=== PATIENT | female | born 1950 | race African-American/Black ===

== ENCOUNTER 2019-12-19 12:18 | Emergency (ER) | payer MEDICARE, SELFPAY ==
[2019-12-19 12:21] VITALS: BP 181/73; PULSE 66; RESP 16; TEMP 36.8; O2SAT 99; BMI 26.4
--- NOTE | 2019-12-19 12:43 | EKG12_ITS ---
Test Reason : DYSRHYTHMIA Blood Pressure : / mmHG Vent. Rate : 067 BPM Atrial Rate : 067 BPM P-R Int : 184 ms QRS Dur : 086 ms QT Int : 474 ms P-R-T Axes : 000 -18 078 degrees QTc Int : 500 ms Normal sinus rhythm Prolonged QT Abnormal ECG Confirmed by TERE LEMON, JAN ([id number]), video editor BIRDIE TORRES ([id number]) on 12/23/2019 10:42:30 AM Referred By: BASSAM Confirmed By:JAN CARRANZA MD
--- NOTE | 2019-12-19 12:45 | ED.VISSUMM ---
- ER Visit Summary Date of Service: 12/19/19 Chief Complaint: Generalized weakness History of Present Illness: The patient is a 69 F history of CAD, diabetes, end-stage renal disease dialysis with a right chest wall dialysis catheter. Patient states that she just felt weak today. She is scheduled for dialysis today. She had a full run of dialysis on Sunday. She is originally from [place] just moved here recently and does not have a local primary care physician as of yet but she has been set up for dialysis. She denies any nausea, vomiting or diarrhea. No chest pain or headache. No abdominal pain. No melena. She still does make urine she denies any dysuria. She denies any fever or chills. Just states she feels weak. Physical Examination: Older female no acute distress. Vital signs are stable and afebrile. HEENT exam unremarkable. No droop. Neck nontender. No lymphadenopathy. Lungs clear to auscultation bilaterally. Heart regular rhythm rate about 60 no murmur. Chest wall nontender. Abdomen soft and nontender. Normal bowel sounds no peritoneal signs. Nondistended. Patient is moving all 4 extremities. Neurovascularly intact. She is a right chest wall dialysis catheter that is tunneled. Neurologically she is awake and alert. She is moving all 4 extremities. There is no edema. Test Results: EKG normal sinus rhythm rate of 67 no acute signs of PA or ischemia. Prolonged QT interval 474. CBC white count of 5. Hemoglobin 11.4 with no old labs available for comparison. Sodium 134. Potassium 3.3. Gap is 6. Creatinine 5.67 with a history of being a dialysis patient. This x-ray showed no acute process. Normal cardiac silhouette. Right-sided Vas-Cath. Emergency Department Course and Treatment: Older female generalized weakness. Benign exam. Screening labs are being obtained. Repeat exam at 2:02 PM patient is doing well. Went over her test results. She will be discharged to home to dialysis. And outpatient follow-up. Treatment Plan: Follow-up with primary care physician. Disposition: Discharge Impression: Acute generalized weakness of uncertain etiology History of end-stage renal disease and dialysis History of CAD. History of diabetes This note was generated with [employer] software. It may contain incorrect words, spelling, and punctuation that were not noted in review of the chart prior to signing ED Disposition - Plan for ED Patient: Referrals: Care Physician,No Primary [Primary Care Provider] -
--- NOTE | 2019-12-19 12:53 | RAD_ITS ---
STUDY: X-RAY CHEST REASON FOR EXAM: Female, 69 years old. Increased weakness TECHNIQUE: Single AP portable view of the chest. COMPARISON: None. FINDINGS: EKG electrodes are seen. A right-sided double-lumen catheter is present with the tip at the junction of the superior vena cava and right atrium. Hyperinflation. The lungs are clear. There is no demonstrated pleural abnormality. Normal size heart. Normal mediastinum and farhan. Normal visualized pulmonary arteries. There is atherosclerotic tortuosity of the aortic arch and descending thoracic aorta. Normal visualized thoracic spine. Normal visualized ribs, clavicles, and shoulders. There is no demonstrated abnormality of the visualized soft tissue structures of the upper abdomen. RAD/Chest 1 View (Portable) IMPRESSION: Hyperinflation. The lungs are clear. Electronically Signed: Lopez Barraza, at 13:07 EDT , Service support ,
[2019-12-19 13:08] LABS: Absolute Neutrophil Count 3.7 X10^3/uL (2.0-7.7); Basophil# 0.04 X10^3/uL; Basophil% 0.7 % (0-1); Eosinophil# 0.15 X10^3/uL; Eosinophils% 2.6 % (0-5); Hematocrit 35.2 % (37-47); Hemoglobin 11.4 g/dL (12.0-15.0); Lymphocyte % 25.5 % (19-41); Mean Corp Hgb Conc 32.4 g/dL (32-36); Mean Corpuscular Hgb 27.8 pg (27.0-32.0); Mean Corpuscular Volume 85.9 fL (81-99); Mean Platelet Vol. 9.8 fl (6.2-12.0); Monocyte# 0.48 X10^3/uL; Monocyte% 8.2 % (0-10); NRBC Flagged by Analyzer 0 % (0-5); Neutrophil % 62.8 % (47-70); Platelet Count 202 K/mm3 (150-450); RBC Distribution Width CV 14.4 % (11.6-14.6); White Blood Count 5.9 K/mm3 (4.4-11.0)
[2019-12-19 13:21] LABS: Anion Gap 6 (5-15); BUN 35 mg/dL (7-18); BUN/Creat Ratio 6.2 RATIO (10-20); Calcium,Total 8.4 mg/dL (8.5-10.1); Chloride 98 mmol/L (98-107); Creatinine, Serum 5.67 mg/dL (0.55-1.02); EST Glomerular Filtration Rate 8 mL/min (>60); Est Glom Filt Rate - Afr Amer 10 mL/min (>60); Estimated Creatinine Clearance 10.06 ml/min; Glucose 95 mg/dL (74-106); Potassium 3.3 mmol/L (3.5-5.1); Sodium Level 134 mmol/L (136-145)
[2019-12-19 13:23] VITALS: BP 161/88; PULSE 56; RESP 14; O2SAT 100
--- NOTE | 2019-12-19 14:04 | ED.DEP ---
ED Disposition - Plan for ED Patient: Disposition: Home or Assisted Living Instructions: ED Weakness [facility] Referrals: Po Magaña MD [STAFF PHYSICIAN] - As soon as possible Additional Instructions: Chest x-ray and EKG today were unremarkable. Follow-up with a local primary care physician. Get your dialysis done today.
[2019-12-19 15:29] VITALS: BP 175/81; PULSE 60; RESP 17; O2SAT 97
== END 2019-12-19 15:30 | disposition home or self-care (01) ==
PROVIDERS: Emergency Provider Emergency Medicine
DX: R53.1 Weakness (principal); E11.22 Type 2 diabetes mellitus with diabetic chronic kidney disease; N18.6 End stage renal disease; Z99.2 Dependence on renal dialysis; I25.10 Atherosclerotic heart disease of native coronary artery without angina pectoris; F17.210 Nicotine dependence, cigarettes, uncomplicated; Z79.899 Other long term (current) drug therapy
CPT/HCPCS: 71045; 80048; 85025; 93005; 99285; A4216

== ENCOUNTER 2020-01-31 00:42 | Emergency (ER) | payer MEDICARE, SELFPAY ==
[2020-01-31 00:44] VITALS: BP 88/59; PULSE 58; RESP 24; TEMP 36.7; O2SAT 96; BMI 24.3
--- NOTE | 2020-01-31 00:56 | EKG12_ITS ---
Test Reason : DYSRHYTHMIA Blood Pressure : / mmHG Vent. Rate : 080 BPM Atrial Rate : 080 BPM P-R Int : 184 ms QRS Dur : 086 ms QT Int : 482 ms P-R-T Axes : 034 -10 061 degrees QTc Int : 555 ms Normal sinus rhythm Nonspecific T wave abnormality Prolonged QT Abnormal ECG Confirmed by TERE LEMON, JAN ([id number]), acquisition editor BIRDIE TORRES ([id number]) on 02/03/2020 8:39:43 AM Referred By: CAREN Confirmed By:JAN CARRANZA MD
--- NOTE | 2020-01-31 00:56 | RAD_ITS ---
STUDY: X-RAY CHEST REASON FOR EXAM: Female, 69 years old. C/O TIGHTNESS IN CHEST AND WEAKNESS TECHNIQUE: Single AP portable view of the chest. COMPARISON: None. FINDINGS: There is a hemodialysis catheter on the right side. The lungs are clear and expanded. There is no demonstrated pleural abnormality. Normal size heart. Normal mediastinum and farhan. Normal visualized pulmonary arteries. Normal visualized aortic arch and descending thoracic aorta. Normal visualized thoracic spine. Normal visualized ribs, clavicles, and shoulders. There is no demonstrated abnormality of the visualized soft tissue structures of the upper abdomen. RAD/Chest 1 View (Portable) IMPRESSION: Normal x-ray examination of the chest. Electronically Signed: Luis Hathaway, at 2:15 EDT Tel , Service support ,
--- NOTE | 2020-01-31 00:57 | CT_ITS ---
STUDY: CT ABDOMEN AND PELVIS WITHOUT CONTRAST REASON FOR EXAM: Female, 69 years old. ABD PAIN/WEAKNESS/FATIGUE/ON DIALYSIS. hX OF UTERINE CANCER, DIABETES, HTN, ASTHMA, CAD, CHOLECYSTECTOMY AND BILAT HIP REPLACEMENTS RADIATION DOSAGE (If Supplied By Facility): CTDIvol = ( 10.31 ) mGy, DLP = ( 477.62 ) mGycm TECHNIQUE: Transaxial images were obtained from the dome of the diaphragm to the symphysis pubis without oral contrast, and without intravenous contrast. Sagittal and coronal images were reconstructed. Individualized dose optimization techniques were used for this CT. COMPARISON: None. FINDINGS: The visualized lung bases are unremarkable. The visualized portions of the heart are within normal limits. There is a subcapsular low-attenuation lesion in the segment #4 of the liver measures 3 cm and most likely represents a cyst. There are surgical clips in the gallbladder fossa consistent with a prior cholecystectomy. Normal spleen. Normal pancreas. Normal bilateral adrenal glands. Normal right kidney. Normal left kidney. Normal visualized stomach. Normal small intestine. Normal colon. The appendix is visualized and appears normal. There is diffuse atherosclerotic calcification of the abdominal aorta, without a demonstrated aneurysm. There is an IVC filter in place. Normal retroperitoneum. Normal urinary bladder. Normal abdominal wall. Normal osseous structures. CT/Abdomen/Pelvis without Cont IMPRESSION: There is a subcapsular low-attenuation lesion in the segment #4 of the liver measures 3 cm and most likely represents a cyst. There is no acute abnormality in the abdomen or the pelvis. Electronically Signed: Luis Hathaway, at 3:26 EDT Tel , Service support ,
[2020-01-31 00:59] VITALS: BP 88/49; PULSE 72; RESP 27; TEMP 36.7; O2SAT 96
--- NOTE | 2020-01-31 00:59 | ED.VIS.GEN ---
History of Present Illness Chief Complaint: General Illness Narrative: Patient is presenting with generalized weakness and some abdominal pain for the past few days, she had dialysis today and her symptoms started even before dialysis as she feels lightheaded, she has some nausea. She denies any fever or chills she denies shortness of breath, no back pain she still makes urine and has no dysuria. The abdominal pain is generalized throughout the entire abdomen it is not localized, she has no diarrhea or constipation. Past Medical History - Allergies and Home Meds Allergies/Adverse Reactions: Allergies No Known Allergies Allergy (Verified 01/31/20 00:50) Primary Care Physician: Care Physician,No Primary [NON-STAFF] - Past Medical History: - - She has an extensive past medical history this was reviewed. I reviewed her medications. She has hypertension hypercholesterolemia diabetes she has end-stage renal failure she is on dialysis Sunday. She has a right chest dialysis catheter she does not have any fistulas. Smoking Status: Current every day smoker Review of Systems All systems negative except as indicated General: Denies: Fever Eyes: Denies: Visual changes - bilaterally ENT: Denies: Sore throat Cardiovascular: Denies: Chest pain, Heart racing Respiratory: Denies: Dyspnea, Cough Gastrointestinal: Reports: Abdominal pain, Nausea. Denies: Vomiting, Diarrhea, Constipation Genitourinary: Denies: Dysuria Musculoskeletal: Denies: Back pain Skin: Denies: Rash Neurological: Reports: - - No focal weakness. Denies: Headache Hematologic: Reports: Easy bruising Allergy: Denies: Swelling of the mouth, Swelling of the tongue Physical Exam Vital Signs/Narrative: Vital Signs Temp Pulse Resp BP Pulse Ox 01/31/20 00:44 98.1 F 58 L 24 H 88/59 L 96 General: - - Patient appears chronically ill. She appears in some distress Head: Normocephalic Eyes: Perrl, EOMI ENT: Dry mucous membranes Neck: Supple Cardiovascular: Regular rate, Regular rhythm Respiratory: No distress, - - Coarse breath sounds bilaterally Abdomen: Soft, - - There is diffuse tenderness throughout there is no guarding or rebound. I can palpate deeply and she does have some pain, however the abdomen is quite benign. Back: Nontender, Normal Inspection Extremities: Nontender, No edema Skin: Normal color, No rash, - - There is a right chest wall dialysis catheter it is intact without any signs of infection Neurological: Alert, Normal Strength, Normal Sensation Diagnostic/Tx/Re-eval - Rhythm Strip Rhythm Strip: Sinus Rhythm Rate: 80 Ectopy: None - EKG Initial EKG Interpretation: - - Normal sinus rhythm with a rate of 80. Normal [place] interval. Slightly prolonged QTC at 555. Nonspecific T wave changes throughout. Otherwise normal EKG interpreted by emergency doctor - Medical Decision Making Patient received a gentle bolus of IV fluids since she was slightly dehydrated clinically, she significantly improved and now feels back to baseline. She has an unremarkable CAT scan and work-up in the ED I weighed the risks and benefits of admission versus discharge I believe at this time she is stable for discharge. She is quite ill chronically and she can decompensate however this is chronic for her and if she worsens she needs to return she understands that she is here with her daughter who seems quite reliable. She is now stable for discharge. ED Disposition - Plan for ED Patient: Disposition: Home or Assisted Living Diagnosis: Dehydration, Weakness Instructions: ED Dehydration Adult, ED Weakness [facility] Referrals: Care Physician,No Primary [NON-STAFF] - 3-5 Days
[2020-01-31 01:10] LABS: Absolute Lymphocyte Count 2.98 X10^3/uL (0.83-4.51); Absolute Neutrophil Count 7.8 X10^3/uL (2.0-7.7); Basophil# 0.04 X10^3/uL; Basophil% 0.3 % (0-1); Eosinophil# 0.13 X10^3/uL; Eosinophils% 1.1 % (0-5); Hematocrit 31.9 % (37-47); Hemoglobin 10.5 g/dL (12.0-15.0); Lymphocyte # 2.98 X10^3/ul (4.0); Mean Corp Hgb Conc 32.9 g/dL (32-36); Mean Corpuscular Hgb 29.3 pg (27.0-32.0); Mean Corpuscular Volume 89.1 fL (81-99); Mean Platelet Vol. 9.3 fl (6.2-12.0); Monocyte# 0.96 X10^3/uL; NRBC Flagged by Analyzer 0 % (0-5); Neutrophil # 7.79 X10^3/uL (2.7-7.7); Neutrophil % 65.3 % (47-70); Platelet Count 261 K/mm3 (150-450); RBC Distribution Width CV 17.2 % (11.6-14.6); RBC Distribution Width SD 53.6 fl (35.1-43.9); Red Blood Count 3.58 M/mm3 (4.2-5.4); White Blood Count 11.9 K/mm3 (4.4-11.0)
[2020-01-31] MEDS: Morphine 2 MG/ML Syringe IV (01:36)
[2020-01-31] MEDS: Ondansetron 4 MG/2 ML Vial IV (01:36)
[2020-01-31 01:49] VITALS: BP 81/48; PULSE 77; RESP 18; TEMP 37; O2SAT 95
[2020-01-31 01:55] LABS: ALB/GLOB Ratio 0.7 RATIO (0.9-2.4); AST(SGOT) 20 U/L (15-37); Alanine Aminotransfer ALT/SGPT 16 U/L (13-56); Alkaline Phosphatase 114 U/L (45-117); Anion Gap 4 (5-15); BUN 15 mg/dL (7-18); BUN/Creat Ratio 4.6 RATIO (10-20); Calcium,Total 8.5 mg/dL (8.5-10.1); Chloride 99 mmol/L (98-107); Creatinine, Serum 3.24 mg/dL (0.55-1.02); EST Glomerular Filtration Rate 15 mL/min (>60); Est Glom Filt Rate - Afr Amer 18 mL/min (>60); Estimated Creatinine Clearance 17.61 ml/min; Globulin 4.2 g/dL (2.2-4.2); Glucose 118 mg/dL (74-106); Lipase 59 U/L (73-393); Potassium 3.1 mmol/L (3.5-5.1); Protein, Total 7.2 g/dL (6.4-8.2); Sodium Level 137 mmol/L (136-145)
[2020-01-31 02:01] LABS: Lactic Acid 1.3 mmol/L (0.4-1.9)
[2020-01-31 02:49] VITALS: BP 121/58; BP 150/67; PULSE 80; PULSE 81; RESP 18; RESP 22; TEMP 36.8; O2SAT 100; O2SAT 94
[2020-01-31 03:57] VITALS: BP 112/43; PULSE 74; RESP 17; TEMP 36.7; O2SAT 94
[2020-01-31 03:58] VITALS: BP 112/43; PULSE 74; RESP 17; O2SAT 94
== END 2020-01-31 03:58 | disposition home or self-care (01) ==
PROVIDERS: Emergency Provider Emergency Medicine; PCP Nurse Practitioner Family
DX: E86.0 Dehydration (principal); R53.1 Weakness; R10.84 Generalized abdominal pain; I12.0 Hypertensive chronic kidney disease with stage 5 chronic kidney disease or end stage renal disease; E11.22 Type 2 diabetes mellitus with diabetic chronic kidney disease; N18.6 End stage renal disease; Z99.2 Dependence on renal dialysis; E78.00 Pure hypercholesterolemia, unspecified; F17.200 Nicotine dependence, unspecified, uncomplicated; Z79.01 Long term (current) use of anticoagulants; Z79.899 Other long term (current) drug therapy
CPT/HCPCS: 71045; 74176; 80053; 83605; 83690; 85025; 93005; 96361; 96374; 96375; 99285; J7050; A4216; J2405

== ENCOUNTER 2020-02-12 19:44 | Inpatient (IN) | payer MEDICARE, MEDICAID, SELFPAY ==
[2020-02-12] VITALS (9 sets, daily range): BP systolic 126–179; BP diastolic 60–92; PULSE 66–74; RESP 14–22; TEMP 36.6–37.1; O2SAT 98–99; BMI 23.6; BMI 24.1; BMI 23.8
[2020-02-12 20:01] LABS: Bedside Glucose 87 mg/dL (70-110)
--- NOTE | 2020-02-12 20:06 | EKG12_ITS ---
Test Reason : CONFUSION Blood Pressure : / mmHG Vent. Rate : 064 BPM Atrial Rate : 064 BPM P-R Int : 184 ms QRS Dur : 084 ms QT Int : 462 ms P-R-T Axes : 057 -09 057 degrees QTc Int : 476 ms Normal sinus rhythm Normal ECG Confirmed by UGO TRIPATHI ([id number]), commissioning editor DEANNA LEMUS ([id number]) on 02/16/2020 2:07:18 PM Referred By: VALERIO Confirmed By:UGO TRIPATHI
--- NOTE | 2020-02-12 20:06 | CT_ITS ---
We are attempting to reach an attending provider to discuss findings. An addendum with communication details will be sent when the communication is complete. STUDY: CT BRAIN WITHOUT CONTRAST REASON FOR EXAM: Female, 70 years old. SPEECH DIFFICULTY-POSSIBLE STROKE.,LT ARM WEAKNESS RADIATION DOSAGE (If Supplied By Facility): CTDIvol = ( 44.99 ) mGy, DLP = ( 835.48 ) mGycm TECHNIQUE: Transaxial CT imaging of the brain was performed without administration of intravenous contrast material. Individualized dose optimization techniques were used for this CT. COMPARISON: No relevant priors. FINDINGS: Normal soft tissue structures. Normal calvarium. Normal size ventricles and extra-axial spaces for the patient''s age. There are areas of decreased attenuation within the white matter tracts of the supratentorial brain, consistent with microvascular disease changes. Normal basal ganglia and thalami. Normal brainstem. Normal cerebellum. There is no intracranial hemorrhage. There are no findings of an acute ischemic infarction. Normal visualized paranasal sinuses. CT/Brain/Head without Contrast IMPRESSION: Chronic involutional changes of the brain. There is no evidence of intracranial hemorrhage or acute infarct. If clinically indicated, CTA brain and/or MRI may be helpful for further evaluation. Electronically Signed: Marcos Mead MD at 20:28 EDT , Service support ,
--- NOTE | 2020-02-12 20:07 | CT_ITS ---
STUDY: CTA HEAD AND NECK WITH CONTRAST REASON FOR EXAM: Female, 70 years old. Speech difficulty. Question stroke. RADIATION DOSAGE (If Supplied By Facility): CTDIvol = ( 19.195 ) mGy, DLP = ( 1502.24 ) mGycm TECHNIQUE: CT angiography was performed with a multi-detector CT scanner. Data acquisition was obtained from the skull base through the vertex following intravenous administration of IV 100 ML ISOVUE 370. MIP images were reconstructed from the axial data set. Post-processing of the angiographic images was performed, with multiplanar reformation and 3D reconstruction. Individualized dose optimization techniques were used for this CT. COMPARISON: No relevant priors. FINDINGS: Normal bilateral petrous carotid arteries. There is calcified plaque formation of the right cavernous carotid artery, with a mild stenosis (less than 50%). There is calcified plaque formation of the left cavernous carotid artery, with a mild stenosis (less than 50%). Normal right A1 segments of the anterior cerebral artery. Normal left A1 segments of the anterior cerebral artery. Normal intact anterior communicating artery (ACOM). Normal bilateral A2 segments of the anterior cerebral arteries. Normal right M1 and M2 segments of the middle cerebral arteries, with a normal M1 bifurcation. Normal left M1 and M2 segments of the middle cerebral arteries, with a normal M1 bifurcation. Normal right posterior communicating artery (PCOM). Normal left posterior communicating artery (PCOM). Normal bilateral vertebral arteries. Normal basilar artery with a normal basilar bifurcation. The visualized bilateral superior cerebellar (SCA) arteries are normal. Hypoplastic P1 segments of the bilateral posterior cerebral arteries. The, P2 and visualized P3 segments are normal in supply via the bilateral posterior communicating arteries. There is no demonstrated aneurysm of the [place] of [place]. There is no demonstrated abnormality of the visualized brain. AORTIC ARCH: Minimal atherosclerotic changes of the visualized aortic arch. There is no dissection or aneurysm. The right common carotid artery arises from the aortic arch. 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 RIGHT CAROTID ARTERIES: Is minimal calcific plaque along the course of the mid right common carotid artery (CCA) without stenosis.. Normal right common carotid bulb. Normal origin of the right internal carotid (ICA) artery without a hemodynamically significant stenosis. Normal visualized cervical portion of the right internal carotid artery. Normal origin of the right external carotid artery (ECA). LEFT CAROTID ARTERIES: There minimal focal areas of plaque along the course of the left common carotid artery (CCA) without stenosis.. There is calcific plaque in the carotid bulb without stenosis. Normal origin of the left internal carotid (ICA) artery without a hemodynamically significant stenosis. Normal visualized cervical portion of the left internal carotid artery. Normal origin of the left external carotid artery (ECA). VERTEBRAL ARTERIES: There is enhancement within the bilateral vertebral arteries with a small right vertebral artery, and a dominant left vertebral artery. CT/CTA Head AND Neck W/ Contrast IMPRESSION: 1. Minimal bilateral carotid plaque without significant stenosis by a massive anterior. 2. Hypoplastic P1 segments of the bilateral posterior cerebral arteries. The P2 and visualized P3 segments are supplied via the patent bilateral posterior communicating arteries. 3. No evidence of acute intracranial abnormality. N.B. : The above information has been verbally conveyed by Giuseppe Malone DO to Jeff Montelongo MD, on 02/12/2020 20:40:03 (ET). Electronically Signed: Giuseppe Malone DO at 20:42 EDT Tel [phone], Service support ,
[2020-02-12 20:21] LABS: Absolute Lymphocyte Count 2.63 X10^3/uL (0.83-4.51); Absolute Neutrophil Count 6.1 X10^3/uL (2.0-7.7); Basophil# 0.05 X10^3/uL; Basophil% 0.5 % (0-1); Eosinophil# 0.13 X10^3/uL; Eosinophils% 1.4 % (0-5); Hematocrit 32.9 % (37-47); Hemoglobin 10.7 g/dL (12.0-15.0); Lymphocyte # 2.63 X10^3/ul (4.0); Lymphocyte % 27.5 % (19-41); Mean Corp Hgb Conc 32.5 g/dL (32-36); Mean Corpuscular Hgb 29.2 pg (27.0-32.0); Mean Corpuscular Volume 89.6 fL (81-99); Mean Platelet Vol. 9.4 fl (6.2-12.0); Monocyte# 0.67 X10^3/uL; NRBC Flagged by Analyzer 0 % (0-5); Neutrophil # 6.06 X10^3/uL (2.7-7.7); Neutrophil % 63.3 % (47-70); Platelet Count 255 K/mm3 (150-450); RBC Distribution Width CV 15.3 % (11.6-14.6); RBC Distribution Width SD 50.3 fl (35.1-43.9); Red Blood Count 3.67 M/mm3 (4.2-5.4); White Blood Count 9.6 K/mm3 (4.4-11.0)
[2020-02-12 20:26] LABS: International Normalized Ratio 1.1; Prothrombin Time (Protime)PT. 13.4 SECONDS (11.7-14.9)
[2020-02-12 20:27] LABS: Partial Thromboplast Time 28.7 Seconds (24.1-36.2)
[2020-02-12 20:37] LABS: Anion Gap 7 (5-15); BUN 28 mg/dL (7-18); BUN/Creat Ratio 4.8 RATIO (10-20); Calcium,Total 9.1 mg/dL (8.5-10.1); Chloride 94 mmol/L (98-107); EST Glomerular Filtration Rate 8 mL/min (>60); Est Glom Filt Rate - Afr Amer 9 mL/min (>60); Glucose 86 mg/dL (74-106); Potassium 3.9 mmol/L (3.5-5.1); Sodium Level 131 mmol/L (136-145)
--- NOTE | 2020-02-12 20:38 | CM.ED ---
Social Work Responding to stroke alert. Patient daughter, Salima present. Patient and Salima live in a private home together. [facility] reports to assist with patient care. Per Calamina patient son, Jose Kaufman is HCPOA for patient. Support provided. Joel JIMENEZ, CARLOS
[2020-02-12] MEDS: Morphine 4 MG/ML Syringe IV (20:44)
--- NOTE | 2020-02-12 20:45 | RAD_ITS ---
STUDY: X-RAY CHEST REASON FOR EXAM: Female, 70 years old. LEFT ARM PAIN INTO NECK. CONFUSION AND DIFFICULTY TALKING. TECHNIQUE: Single AP portable view of the chest. COMPARISON: Prior study of 01/31/2020 FINDINGS: child monitor leads are seen. There is a right-sided dialysis catheter with tip projecting over the atriocaval junction. The lungs are clear and expanded. There is no demonstrated pleural abnormality. Normal size heart. Normal mediastinum and farhan. Normal visualized pulmonary arteries. There are calcified plaques of the aortic arch. Normal visualized thoracic spine. Normal visualized ribs, clavicles, and shoulders. There is no demonstrated abnormality of the visualized soft tissue structures of the upper abdomen. RAD/Chest 1 View IMPRESSION: No acute cardiopulmonary disease process is seen. Chest findings are stable in the interval. Electronically Signed: Marcos Mead MD at 21:10 EDT , Service support ,
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
--- NOTE | 2020-02-12 21:01 | ED.DCSUM_ITS ---
- ER Visit Summary Date of Service: 02/12/20 Chief Complaint: Speech difficulty, left-sided weakness History of Present Illness: The patient is a 70 F who presents with the above symptoms. Started 3 hours ago. Daughter noted that she had weakness of her left arm and leg and trouble getting her words out. No headache. No nausea or vomiting. Patient has no history of stroke. She currently is on Eliquis for history of DVT. She is also on dialysis Sunday and Sunday and had her normal dialysis yesterday. Physical Examination: Vital signs reviewed. HEENT exam unremarkable. Heart is regular rate and rhythm without murmurs. Lungs are clear to auscultation. Abdomen is soft and nontender. Extremities reveal no edema. Skin exam normal. Neurologic exam shows an extra scale of 5. She scored 1 for questions, 2 for left leg and 2 for language. Test Results: CAT scan of the head shows nothing acute. CTA of the head neck shows minimal carotid plaques with hypoplastic P1 segments. EKG was sinus rhythm with rate 64. No ischemic changes. Troponin normal. Creatinine 5.8. Hemoglobin is 10.7. Emergency Department Course and Treatment: Stroke team was activated due to the patient's symptoms. She is not a TPA candidate due to being on Eliquis. [facility] stroke neurologist evaluated the patient via robot. Again he reiterated the patient is not a TPA candidate. He recommended admission for further imaging studies.Her symptoms seemed to wax and wane. She then developed numbness to the left side of the face. She complained of chest pain, but her EKG and troponin were unremarkable. Patient was discussed with Dr. Cai for admission Treatment Plan: [] Disposition: Admit Impression: Ischemic stroke, chest pain This note was generated with [employer] dictation software. It may contain incorrect words, spelling, and punctuation that were not noted in review of the chart prior to signing ED Disposition - Plan for ED Patient: Referrals: Som Jha NP-C [Primary Care Provider] -
--- NOTE | 2020-02-12 21:52 | ECHOD_ITS ---
Reason For Study: Arrhythmia Procedure This was a 2D Doppler, Color Flow transthoracic echocardiogram. Exam performed portable in patient room. Left Ventricle Normal size and thickness. The estimated ejection fraction is 55-60 %. Stage 1 diastolic dysfunction. No regional wall motion abnormalities noted. Right Ventricle Normal size and thickness. Normal systolic function. Atria The left atrium is moderately enlarged. Normal right atrium. Normal atrial septum. Bubble contrast study negative for right to left interatrial shunt. Mitral Valve The mitral valve is structurally normal. No prolapse or stenosis seen. Mild (1+) mitral valve insufficiency. Tricuspid Valve Normal tricuspid valve. Trivial tricuspid valve insufficiency. Right ventricular systolic pressure estimated to be 22 mmHg. Aortic Valve Normal aortic valve. Trisinus/trileaflet aortic valve. Pulmonic Valve Normal pulmonic valve. Great Vessels Normal aortic root. Normal arch. Normal inferior vena cava. Inferior vena cava collapse with sniff. Pericardium/Pleural No pericardial effusion. Medication Performed a rapid injection of agitated mix of 9 cc saline and 1cc air to assess for atrial septal defect. MMode/2D Measurements & Calculations LVIDd: 4.8 cm IVSd: 1.00 cm Ao root diam: 3.1 cm LVIDs: 3.5 cm LVPWd: 1.2 cm RVDd: 3.3 cm FS: 27.1 % LAV(MOD-bp): 64.2 ml LA A4 area: 22.8 cm2 LA dimension(2D): 4.7 cm LAV(MOD-bp) Indexed: 34.2 ml/m2 LAV(MOD-sp2): 46.9 ml LAV(MOD-sp4): 75.4 ml RA A4 area: 12.6 cm2 Doppler Measurements & Calculations MV E max reg: 76.7 cm/sec Lat Peak E' Reg: 6.9 cm/sec Med Peak E' Reg: 5.2 cm/sec MV A max reg: 106.3 cm/sec E/E' lat: 11.2 E/E' med: 14.8 MV E/A: 0.72 Ao V2 max: 169.7 cm/sec LV V1 max: 128.6 cm/sec PA V2 max: 97.1 cm/sec Ao max P.5 mmHg LV V1 max P.6 mmHg TR max reg: 206.9 cm/sec TR max P.1 mmHg Interpretation Summary Stage 1 diastolic dysfunction. The estimated ejection fraction is 55-60 %. The left atrium is moderately enlarged. Bubble contrast study negative for right to left interatrial shunt. Mild (1+) mitral valve insufficiency. Trivial tricuspid valve insufficiency. Right ventricular systolic pressure estimated to be 22 mmHg. Ordering Physician: Reema Cai Performed By: Mehnaz Padilla RDCS
[2020-02-12 22:29] LABS: Hemoglobin A1c 4.8 % (3.8-5.6)
[2020-02-12] MEDS: 0.9% Saline Lock 10 ML Syringe IV (22:44)
[2020-02-12] MEDS: 0.9% Normal Saline 1,000 ML 100 ML IV (22:44)
[2020-02-12 22:55] LABS: Bedside Glucose 87 mg/dL (70-110)
[2020-02-12 23:40] LABS: Magnesium 2.2 mg/dL (1.6-2.6); T4 Free Direct 1.35 ng/dL (0.76-1.46); Thyroid Stim Hormone (TSH) 4.88 uIU/mL (0.358-3.74)
[2020-02-13] VITALS (14 sets, daily range): BP systolic 106–165; BP diastolic 45–87; PULSE 50–64; RESP 16–20; TEMP 36.2–36.9; O2SAT 95–100; BMI 23.8
[2020-02-13] MEDS: Enoxaparin 80 MG/0.8 ML Syringe 73 MG SC (01:27)
--- NOTE | 2020-02-13 05:55 | EKG12_ITS ---
Test Reason : MORNING EKG Blood Pressure : / mmHG Vent. Rate : 055 BPM Atrial Rate : 055 BPM P-R Int : 212 ms QRS Dur : 086 ms QT Int : 478 ms P-R-T Axes : 068 000 073 degrees QTc Int : 457 ms Sinus bradycardia with 1st degree A-V block Otherwise normal ECG When compared with ECG of 12-FEB-2020 19:58, MANUAL COMPARISON REQUIRED, DATA IS UNCONFIRMED Confirmed by UGO TRIPATHI ([id number]), primer expeditor and drier DEANNA LEMUS ([id number]) on 02/16/2020 2:27:20 PM Referred By: Confirmed By:GUO TRIPATHI
[2020-02-13 06:17] LABS: Absolute Lymphocyte Count 2.01 X10^3/uL (0.83-4.51); Absolute Neutrophil Count 4.4 X10^3/uL (2.0-7.7); Basophil# 0.06 X10^3/uL; Basophil% 0.8 % (0-1); Eosinophil# 0.17 X10^3/uL; Eosinophils% 2.4 % (0-5); Hematocrit 32.8 % (37-47); Hemoglobin 10.2 g/dL (12.0-15.0); Lymphocyte # 2.01 X10^3/ul (4.0); Lymphocyte % 27.9 % (19-41); Mean Corp Hgb Conc 31.1 g/dL (32-36); Mean Corpuscular Hgb 28.7 pg (27.0-32.0); Mean Corpuscular Volume 92.1 fL (81-99); Mean Platelet Vol. 9.3 fl (6.2-12.0); Monocyte# 0.57 X10^3/uL; Monocyte% 7.9 % (0-10); NRBC Flagged by Analyzer 0 % (0-5); Neutrophil # 4.39 X10^3/uL (2.7-7.7); Neutrophil % 60.9 % (47-70); Platelet Count 219 K/mm3 (150-450); RBC Distribution Width CV 15.4 % (11.6-14.6); RBC Distribution Width SD 52.4 fl (35.1-43.9); Red Blood Count 3.56 M/mm3 (4.2-5.4); White Blood Count 7.2 K/mm3 (4.4-11.0)
[2020-02-13 06:41] LABS: Bedside Glucose 72 mg/dL (70-110)
[2020-02-13 06:46] LABS: ALB/GLOB Ratio 0.7 RATIO (0.9-2.4); AST(SGOT) 18 U/L (15-37); Alanine Aminotransfer ALT/SGPT 13 U/L (13-56); Albumin, Serum 2.9 g/dL (3.2-5.0); Alkaline Phosphatase 101 U/L (45-117); Anion Gap 7 (5-15); BUN 28 mg/dL (7-18); BUN/Creat Ratio 4.5 RATIO (10-20); Calcium,Total 8.3 mg/dL (8.5-10.1); Chloride 97 mmol/L (98-107); Cholesterol 120 mg/dL (200); Creatinine, Serum 6.19 mg/dL (0.55-1.02); EST Glomerular Filtration Rate 7 mL/min (>60); Est Glom Filt Rate - Afr Amer 9 mL/min (>60); Estimated Creatinine Clearance 9.09 ml/min; Globulin 4.1 g/dL (2.2-4.2); Glucose 76 mg/dL (74-106); High Density Lipoprotein 46 mg/dL; Potassium 3.9 mmol/L (3.5-5.1); Sodium Level 134 mmol/L (136-145); Triglycerides 121 mg/dL; Very Low Density Lipoprotein 24 mg/dL (5-40)
[2020-02-13] MEDS: Dextrose 50%-Water 25 GM/50 ML DISP.SYRIN IV (06:53)
--- NOTE | 2020-02-13 07:21 | PCM.PN.HOSP ---
Patient Problems: Active and Suspected Problems CVA (cerebral vascular accident) (Acute) Chest pain (Acute) Asthma (Acute) Reason for Visit: Left upper extremity numbness and weakness Subjective: Patient is a 70-year-old lady with multiple comorbidities including diabetes mellitus type 2, end-stage renal disease on hemodialysis who presented with left-sided weakness with expressive aphasia and some confusion. A suspicion of possible CVA was entertained admitted to monitored bed for further management Seen this a.m. patient complaining of significant chest pain involving the left upper chest. EKG obtained was nonacute for ischemia Objective: GENERAL: cooperative HEENT: Atraumatic; EYES; Anicteric, Normal Conjunctiva NECK; supple, normal thyroid, RESPIRATORY: Diminished to auscultation CARDIOVASCULAR: Regular S1 S2, GI: soft, normoactive bowel sounds, : No Renal angle tenderness; EXTREMITIES: No edema, no clubbing, MUSCULOSKELETAL: no muscle waisting NEURO: Awake; no lateralizing signs. SKIN: No Rash PSYCH; Flat affect Vitals/I&O's: Vital Signs Temp Pulse Resp BP Pulse Ox 98.0 F 55 L 16 142/70 H 98 02/13/20 06:00 02/13/20 06:00 02/13/20 06:00 02/13/20 06:00 02/13/20 06:00 Oxygen Delivery Method Room Air Weight: 73 kg Body Mass Index (BMI) 23.8 Finger Stick Blood Glucose 87 Intake and Output for Last 24 Hours 02/11/20 02/12/20 02/13/20 23:59 23:59 23:59 Intake Total 110 / 110 Balance 110 / 110 Laboratory Results 02/12/20 19:54: POC Glucose 87 02/12/20 20:10: WBC 9.6, RBC 3.67 L, Hgb 10.7 L, Hct 32.9 L, MCV 89.6, MCH 29.2, MCHC 32.5, RDW Std Deviation 50.3 H, RDW Coeff of Destiny 15.3 H, Plt Count 255, MPV 9.4, Immature Gran % (Auto) 0.300, Neut % (Auto) 63.3, Lymph % (Auto) 27.5, [place] % (Auto) 7.0, Eos % (Auto) 1.4, Baso % (Auto) 0.5, Absolute Neuts (auto) 6.1, Absolute Lymphs (auto) 2.63, Nucleated RBC % 0 02/12/20 20:10: PT 13.4, INR 1.1, APTT 28.7 02/12/20 20:10: Sodium 131 L, Potassium 3.9, Chloride 94 L, Carbon Dioxide 30.0, Anion Gap 7, BUN 28 H, Creatinine 5.80 H, Estim Creat Clear Calc 9.70, Est GFR (MDRD) Af Amer 9 L, Est GFR (MDRD) Non-Af 8 L, BUN/Creatinine Ratio 4.8 L, Glucose 86, Calcium 9.1, Troponin I < 0.015 02/12/20 20:10: Hemoglobin A1c 4.8 02/12/20 22:49: POC Glucose 87 02/12/20 23:06: Magnesium 2.2, Troponin I < 0.015, TSH 4.88 H, Free T4 1.35 02/13/20 06:00: WBC 7.2, RBC 3.56 L, Hgb 10.2 L, Hct 32.8 L, MCV 92.1, MCH 28.7, MCHC 31.1 L, RDW Std Deviation 52.4 H, RDW Coeff of Destiny 15.4 H, Plt Count 219, MPV 9.3, Immature Gran % (Auto) 0.100, Neut % (Auto) 60.9, Lymph % (Auto) 27.9, [place] % (Auto) 7.9, Eos % (Auto) 2.4, Baso % (Auto) 0.8, Absolute Neuts (auto) 4.4, Absolute Lymphs (auto) 2.01, Nucleated RBC % 0 02/13/20 06:00: Sodium 134 L, Potassium 3.9, Chloride 97 L, Carbon Dioxide 30.0, Anion Gap 7, BUN 28 H, Creatinine 6.19 H, Estim Creat Clear Calc 9.09, Est GFR (MDRD) Af Amer 9 L, Est GFR (MDRD) Non-Af 7 L, BUN/Creatinine Ratio 4.5 L, Glucose 76, Calcium 8.3 L, Total Bilirubin 0.30, AST 18, ALT 13, Alkaline Phosphatase 101, Total Protein 7.0, Albumin 2.9 L, Globulin 4.1, Albumin/Globulin Ratio 0.7 L, Triglycerides 121, Cholesterol 120, LDL Cholesterol 50, VLDL Cholesterol 24, HDL Cholesterol 46 02/13/20 06:33: POC Glucose 72 Current Medications Acetaminophen (Tylenol) 650 mg PO Q6H PRN PRN PRN Reason: Pain Score 1-10/Temp > 100.7 F Al Hydroxide/Mg Hydroxide (Mylanta Ii) 30 ml PO Q6H PRN PRN PRN Reason: Gastric Burning Albuterol Sulfate (Ventolin Aerosols) 2.5 mg INHALATION Q2H PRN PRN PRN Reason: Dyspnea, wheezing Apixaban (Eliquis) 2.5 mg PO BID [facility] Last Admin: 02/13/20 01:23 Dose: Not Given Documented by: Aspirin (Aspirin, Baby) 81 mg PO DAILY@0800 [facility] Aspirin (Aspirin) 300 mg RECTAL DAILY PRN PRN Reason: NPO Atorvastatin Calcium (Lipitor) 40 mg PO QHS [facility] Last Admin: 02/13/20 01:23 Dose: Not Given Documented by: Calcium Acetate (Phoslo Gel Cap) 667 mg PO TIDCM [facility] Gabapentin (Neurontin) 300 mg PO TID [facility] Last Admin: 02/13/20 05:08 Dose: Not Given Documented by: Guaifenesin (Robitussin) 20 ml PO Q4H PRN PRN PRN Reason: COUGH Heparin Sodium (Porcine) () 2,500 units IV UD PRN PRN Reason: Dialysis Cath Heparin Flush Hydralazine HCl (Apresoline Iv) 5 mg IV Q30M PRN PRN Reason: to maintain BP goals Sodium Chloride () 1,000 mls @ 100 mls/hr IV .Q10H [facility] Last Admin: 02/12/20 22:44 Dose: 100 mls/hr Documented by: Pantoprazole Sodium 40 mg/ (Sodium Chloride) 110 mls @ 330 mls/hr IV Q12 [facility] Last Infusion: 02/13/20 02:05 Dose: Infused Documented by: Labetalol HCl (Trandate) 20 mg IV X1 PRN PRN Reason: BLOOD PRESSURE Magnesium Hydroxide (Milk Of Magnesia) 30 ml PO DAILY PRN PRN PRN Reason: Constipation Magnesium Oxide (Mag-Ox 400) 400 mg PO DAILY [facility] Melatonin (Melatonin) 3 mg PO QHS PRN PRN PRN Reason: INSOMNIA Mirtazapine (Remeron) 45 mg PO QHS [facility] Last Admin: 02/13/20 01:24 Dose: Not Given Documented by: Morphine Sulfate () 4 mg IV Q3H PRN PRN PRN Reason: Pain Score 6-10/10 Nitroglycerin (Nitrostat) 0.4 mg SUBLINGUAL Q5M PRN PRN Reason: CARDIAC/CHEST PAIN Ondansetron HCl (Zofran) 4 mg IV Q8H PRN PRN PRN Reason: NAUSEA/VOMITING Oxycodone HCl (Oxyir) 5 mg PO Q4H PRN PRN PRN Reason: Pain Score 4-5/10 Prochlorperazine Edisylate (Compazine Iv) 5 mg IV Q4H PRN PRN PRN Reason: Breakthrough Nausea/Vomiting Psyllium Hydrophilic Mucilloid (Metamucil) 1 packet PO DAILY PRN PRN PRN Reason: Constipation Senna/Docusate Sodium (Senokot-S, Amara-Colace) 2 tablet PO BID PRN PRN PRN Reason: Constipation Sodium Chloride () 10 ml IV UD PRN PRN Reason: Dialysis Catheter Flush Last Admin: 02/12/20 22:44 Dose: 10 ml Documented by: Sodium Chloride () 10 - 40 ml IV UD PRN PRN Reason: SALINE FLUSH Throat Lozenges (Cepacol Sore Throat Lozenge) 1 lozenge MUCOUS MEM Q2H PRN PRN PRN Reason: SORE THROAT Trimethoprim/Sulfamethoxazole (Bactrim Ds) 0.5 tablet PO DAILYCM [facility] Stop: 02/15/20 08:01 STROKE Vital Signs/Narrative: Vital Signs Temp Pulse Resp BP Pulse Ox 02/13/20 06:00 98.0 F 55 L 16 142/70 H 98 Medical Necessity - Tobacco Use Smoking Status: Current every day smoker Tobacco Use: Cigarettes Assessment/Plan All Active Problems CVA (cerebral vascular accident) (Acute) Chest pain (Acute) Asthma (Acute) Patient is a 70-year-old lady with multiple comorbidities including diabetes mellitus type 2, end-stage renal disease on hemodialysis who presented with left-sided weakness with expressive aphasia and some confusion. A suspicion of possible CVA was entertained admitted to monitored bed for further management 1. Left upper extremity paresthesias and subjective weakness ?A presumptive diagnosis of CVA entertained. Patient admitted to monitored bed ordered neuro checks every 4 hours. As part of her management MRI was ordered in addition to speech eval. If CVA confirmed on MRI plan will be to consult neurology -Cervical radiculopathy also remains on the differential diagnosis for patient left upper extremity paresthesias; MRI of the cervical spine subsequently ordered 2. Chest pain ?Cardiac enzymes so far unremarkable plan is for patient to undergo nuclear stress test in a.m. if LA is ruled out 3. Hypertension - Blood pressure controlled, home medications continued with dose adjustment as needed 4. End-stage renal disease ?Patient is on hemodialysis on Wednesdays and Fridays. Nephrology consulted for dialysis orders 5. Dyslipidemia -Patient is on statin therapy, continued at home dose 6. Diabetes mellitus type 2 ?With complications including diabetic nephropathy currently not on any anti-diabetic regimen 7. Mild intermittent asthma ?Currently not in exacerbation 8. Depression with anxiety ?Patient is on Remeron discontinued 9. GERD ?Patient is on PPI 10. History of left lower extremity DVT ?Patient is on Eliquis did continue Active Medications Acetaminophen (Tylenol) 650 mg PO Q6H PRN PRN PRN Reason: Pain Score 1-10/Temp > 100.7 F Al Hydroxide/Mg Hydroxide (Mylanta Ii) 30 ml PO Q6H PRN PRN PRN Reason: Gastric Burning Albuterol Sulfate (Ventolin Aerosols) 2.5 mg INHALATION Q2H PRN PRN PRN Reason: Dyspnea, wheezing Apixaban (Eliquis) 2.5 mg PO BID [facility] Last Admin: 02/13/20 10:32 Dose: 2.5 mg Documented by: Aspirin (Aspirin, Baby) 81 mg PO DAILY@0800 [facility] Last Admin: 02/13/20 10:32 Dose: 81 mg Documented by: Aspirin (Aspirin) 300 mg RECTAL DAILY PRN PRN Reason: NPO Atorvastatin Calcium (Lipitor) 40 mg PO QHS [facility] Last Admin: 02/13/20 01:23 Dose: Not Given Documented by: Calcium Acetate (Phoslo Gel Cap) 667 mg PO TIDCM [facility] Last Admin: 02/13/20 10:32 Dose: 667 mg Documented by: Gabapentin (Neurontin) 300 mg PO TID [facility] Last Admin: 02/13/20 05:08 Dose: Not Given Documented by: Guaifenesin (Robitussin) 20 ml PO Q4H PRN PRN PRN Reason: COUGH Heparin Sodium (Porcine) () 2,500 units IV UD PRN PRN Reason: Dialysis Cath Heparin Flush Hydralazine HCl (Apresoline Iv) 5 mg IV Q30M PRN PRN Reason: to maintain BP goals Sodium Chloride () 1,000 mls @ 100 mls/hr IV .Q10H [facility] Last Admin: 02/13/20 09:14 Dose: 100 mls/hr Documented by: Pantoprazole Sodium 40 mg/ (Sodium Chloride) 110 mls @ 330 mls/hr IV Q12 [facility] Last Infusion: 02/13/20 10:23 Dose: Infused Documented by: Labetalol HCl (Trandate) 20 mg IV X1 PRN PRN Reason: BLOOD PRESSURE Magnesium Hydroxide (Milk Of Magnesia) 30 ml PO DAILY PRN PRN PRN Reason: Constipation Magnesium Oxide (Mag-Ox 400) 400 mg PO DAILY [facility] Last Admin: 02/13/20 10:32 Dose: 400 mg Documented by: Melatonin (Melatonin) 3 mg PO QHS PRN PRN PRN Reason: INSOMNIA Mirtazapine (Remeron) 45 mg PO QHS [facility] Last Admin: 02/13/20 01:24 Dose: Not Given Documented by: Morphine Sulfate () 4 mg IV Q3H PRN PRN PRN Reason: Pain Score 6-10/10 Nitroglycerin (Nitrostat) 0.4 mg SUBLINGUAL Q5M PRN PRN Reason: CARDIAC/CHEST PAIN Ondansetron HCl (Zofran) 4 mg IV Q8H PRN PRN PRN Reason: NAUSEA/VOMITING Oxycodone HCl (Oxyir) 5 mg PO Q4H PRN PRN PRN Reason: Pain Score 4-5/10 Prochlorperazine Edisylate (Compazine Iv) 5 mg IV Q4H PRN PRN PRN Reason: Breakthrough Nausea/Vomiting Psyllium Hydrophilic Mucilloid (Metamucil) 1 packet PO DAILY PRN PRN PRN Reason: Constipation Senna/Docusate Sodium (Senokot-S, Amara-Colace) 2 tablet PO BID PRN PRN PRN Reason: Constipation Sodium Chloride () 10 ml IV UD PRN PRN Reason: Dialysis Catheter Flush Last Admin: 02/12/20 22:44 Dose: 10 ml Documented by: Sodium Chloride () 10 - 40 ml IV UD PRN PRN Reason: SALINE FLUSH Throat Lozenges (Cepacol Sore Throat Lozenge) 1 lozenge MUCOUS MEM Q2H PRN PRN PRN Reason: SORE THROAT Trimethoprim/Sulfamethoxazole ([facility]rim Ds) [facility] Stop: 02/15/20 08:01 Last Admin: 02/13/20 10:31 Dose: 0.5 tablet Documented by: Inpatient E&M: [id number] Subs Hosp L3
--- NOTE | 2020-02-13 08:52 | EKG12_ITS ---
Test Reason : Blood Pressure : / mmHG Vent. Rate : 051 BPM Atrial Rate : 051 BPM P-R Int : 212 ms QRS Dur : 084 ms QT Int : 536 ms P-R-T Axes : 069 -12 046 degrees QTc Int : 494 ms Sinus bradycardia with 1st degree A-V block Otherwise normal ECG When compared with ECG of 13-FEB-2020 05:27, MANUAL COMPARISON REQUIRED, DATA IS UNCONFIRMED Confirmed by UGO TRIPATHI ([id number]), rewrite editor DEANNA LEMUS ([id number]) on 02/16/2020 2:27:37 PM Referred By: BRENNAN Confirmed By:UGO TRIPATHI
[2020-02-13] MEDS: 0.9% Normal Saline 1,000 ML 100 ML IV ×2 (09:14→22:24)
--- NOTE | 2020-02-13 09:15 | MRI_ITS ---
STUDY: MRI BRAIN WITHOUT CONTRAST REASON FOR EXAM: Female, 70 years old. ataxia, difficulty speaking,weakness TECHNIQUE: Standardized multiplanar fat and water weighted pulse sequences were obtained. COMPARISON: 02/12/2020 CT of the brain FINDINGS: Mild atrophy and advanced periventricular white matter ischemic changes without mass effect or restricted diffusion.. Chronic ischemic changes within the shereen. Normal bilateral basal ganglia. Small old lacunar infarct in the right thalamus.. There is no extra-axial fluid accumulation. Normal flow voids within the major intracranial circulation suggesting patency by spin echo criteria. Empty sella deformity likely of no significance. Normal, infundibular stalk, optic chiasm and hypothalamus. Normal tectal plate and pineal gland. Normal midbrain, shereen and medulla. Normal cerebellum. Normal basal cisterns. Normal bilateral temporal bones. Normal bilateral internal auditory canals. No demonstrated orbital abnormality, within the constraints of a routine brain study. Normal visualized paranasal sinuses. Normal calvarium and skull base. Normal visualized soft tissue structures. Normal visualized upper cervical spine. MRI/Brain without Contrast IMPRESSION: Atrophy and advanced periventricular white matter ischemic changes. Old right thalamic infarct and chronic ischemic changes within the shereen. No evidence for acute infarct. Electronically Signed: Linwood Black MD at 16:10 EDT , Service support ,
--- NOTE | 2020-02-13 09:31 | MRI_ITS ---
STUDY: MRI CERVICAL SPINE WITHOUT CONTRAST REASON FOR EXAM: Female, 70 years old. Chest pain, weakness,difficulty speaking TECHNIQUE: Standardized fat and water weighted pulse sequences were obtained in the sagittal and axial planes. COMPARISON: None FINDINGS: Normal foramen magnum and brainstem-cervical cord junction. Normal craniovertebral junction. Normal anterior atlantoaxial articulation. Normal odontoid process. Normal cervical lordosis. Normal vertebral bodies and posterior osseous elements. C2-3: Normal endplates. Normal disc height, signal and prominent right posterolateral/foraminal disc/osteophyte protrusion. Normal central canal and severe right neuroforaminal stenosis. C3-4: Normal endplates. Normal disc height, signal and minor disc bulge with broad based right paracentral/posterolateral disc protrusion.. There is narrowing the central canal and mild cord compression to the right of the midline. Normal left nerve root foramen and severe right neuroforaminal stenosis due to bony hypertrophy C4-5: Normal endplates. Normal disc height, signal and tiny right foraminal disc/osteophyte protrusion. Normal central canal. Moderate right neuroforaminal encroachment. C5-6: Narrowed disc space and minor bulging disc osteophyte complex with small right paracentral/posterolateral disc protrusion. Mild narrowing the central canal and cord compression to the right of the midline. Severe bilateral neuroforaminal stenosis secondary to disc and bony hypertrophy. C6-7: Normal endplates. Normal disc height, signal and small left paracentral/posterolateral disc protrusion. Normal central canal and intervertebral neural foramina. C7-T1: Normal endplates. Normal disc height, signal and morphology. Normal central canal and intervertebral neural foramina. Normal cervical cord. Normal visualized soft tissue structures. MRI/Spine Cervical (Routine) IMPRESSION: No evidence for acute fracture or other significant bony pathology.. Spondylosis and multilevel spinal stenosis secondary to disc disease and bony hypertrophy more severe on the right. Findings as above Electronically Signed: Linwood Black MD at 16:19 EDT , Service support ,
[2020-02-13] MEDS: Smz/Tmp Ds Tablet 0.5 TABLET PO (10:31)
[2020-02-13] MEDS: Magnesium Oxide 400 MG Tablet PO (10:32)
[2020-02-13] MEDS: Calcium Acetate 667 MG Capsule PO ×2 (10:32→11:59)
[2020-02-13] MEDS: Aspirin 81 MG TAB.CHEW PO (10:32)
[2020-02-13] MEDS: APIXABAN 2.5 MG TABLET PO ×2 (10:32→21:55)
[2020-02-13 12:21] LABS: Bedside Glucose 89 mg/dL (70-110)
--- NOTE | 2020-02-13 13:47 | CASEMGMT ---
SW spoke with therapy and patient did not do well. SW met with patient, introduced self and role at [facility]. SW gave patient a list of facilities that are in network with her insurance. SW explained that she will likely be here through the weekend as her insurance will need to approve her and they do not work on the weekends. She asked about [facility] Re[facility] and SW told her that they do not take patient's on dialysis. Plan: Likely SNF, but patient and family still deciding. Evy GONZALEZ MSW
--- NOTE | 2020-02-13 13:50 | CASEMGMT ---
REGGIE FAN assessment: Face to Face with patient for initial transition planning/care coordination assessment. RN MITA introduced self and role at [facility], pt voices understanding and consents to assessment at this time. Pt is sitting up in bed in no distress at this time. Pt is A/Ox4 at this time and answers all questions appropriately at this time. Pt's son, Jose Kaufman, is at bedside during assessment. Care providers, pharmacy, and demographics verified/updated at this time. Presentation: Pt c/o left arm pain into neck, family also states confusion/difficulty talking Admitting dx: CVA PCP: Abhijeet Specialists: Pt states no current specialists. Preferred Pharmacy: [facility] Insurance: [facility] Prescription Benefit: [facility] Living Will/HPOA: Pt states has a LW/HPOA and is aware that they are not on file at [facility] at this time. Pt states her son, Jose Kaufman, is HPOA. LNOK: Jose Kaufman, son/HPOA; Modesta Bessie, son's fiance Living Arrangements: Pt states lives with son on main level of 2 story home and states no concerns at home at this time. Pt states son assists with ADL's, if needed. Transportation: Pt states family drives or uses [employer] transportation and states no transportation concerns at this time. DME/HHC: Pt states has the following DME: w/c, walker, stair lift, and shower chair. Pt states no need for any further DME at this time. Pt states has had HHC and been to SNF but it was while she was in [place]. Pt is ESRD on HD MWF. Pt does state concerns with going home at time of discharge, stating 'I don't know about this leg.' Ian LERMA aware, voices understanding. Pt is retired. Pt states smokes a pack of cigarettes daily and does not drink ETOH. Pt states no further concerns/needs at this time. CM to follow PT/OT evals and for any further discharge planning/needs. Advised pt to ask for CM if any further questions/concerns/needs arise, voices understanding. Pt Goal: TBD Plan: TBD, pending PT/OT evals. S[place]en REGGIE FAN
[2020-02-13] MEDS: Gabapentin 300 MG Capsule PO ×2 (14:13→21:56)
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
--- NOTE | 2020-02-13 17:12 | DIALYSIS ---
Report from primary RN, Naresh Beam Access: Right chest CVC. Site benign, dressing changed per protocol, connections secure, hemosafe applied x 2.
[2020-02-13 17:20] LABS: Bedside Glucose 90 mg/dL (70-110)
[2020-02-13] MEDS: Alteplase 2 MG/2 ML Vial IV ×2 (20:40)
--- NOTE | 2020-02-13 21:06 | DIALYSIS ---
Hemodialysis complete. 3.5 hour run, 2k bath, net fluid removed = 2000 ml. Patient tolerated HD tx well. Patient's HD catheter very positional. Catheter closed using Cathflo: 1.8 ml arterial and 1.8 ml venous. Catheter capped and clamped. Report given to primary RN, mOar Albert.
[2020-02-13] MEDS: Atorvastatin Calcium 40 MG Tablet PO (21:56)
[2020-02-13] MEDS: Mirtazapine 30 MG Tablet 45 MG PO (21:56)
[2020-02-13 22:25] LABS: Bedside Glucose 83 mg/dL (70-110)
[2020-02-14 00:49] VITALS: BMI 23.8
[2020-02-14 03:00] VITALS: PULSE 65
[2020-02-14 04:15] VITALS: BP 185/76; PULSE 60; RESP 18; TEMP 36.6; O2SAT 97
--- NOTE | 2020-02-14 05:55 | EKG12_ITS ---
Test Reason : AM EKG Blood Pressure : / mmHG Vent. Rate : 068 BPM Atrial Rate : 068 BPM P-R Int : 176 ms QRS Dur : 082 ms QT Int : 474 ms P-R-T Axes : 000 -05 083 degrees QTc Int : 504 ms Normal sinus rhythm Nonspecific T wave abnormality Prolonged QT Abnormal ECG When compared with ECG of 13-FEB-2020 09:07, MANUAL COMPARISON REQUIRED, DATA IS UNCONFIRMED Confirmed by UGO TRIPATHI ([id number]), health editor DEANNA LEMUS ([id number]) on 02/23/2020 10:01:02 AM Referred By: YUMIKO Confirmed By:UGO TRIPATHI
[2020-02-14] MEDS: Aspirin 81 MG TAB.CHEW PO (06:50)
[2020-02-14] MEDS: Gabapentin 300 MG Capsule PO (06:50)
[2020-02-14 06:57] VITALS: PULSE 63
[2020-02-14 07:00] LABS: Bedside Glucose 73 mg/dL (70-110)
[2020-02-14 07:06] VITALS: O2SAT 96
[2020-02-14] MEDS: 0.9% Normal Saline 1,000 ML 100 ML IV (07:38)
--- NOTE | 2020-02-14 08:16 | STE_ITS ---
Reason For Study: CHEST PAIN Stress Results Protocol: Dobtuamine Stress Echo Maximum Predicted HR: 152 bpm Target HR: 129 bpm % Maximum Predicted HR: 86 % DurationHeart Rate Stage (mm:ss) (bpm) BP Dose BASELINE 55 152/80 STAGE 1 3:00 52 158/6210.00 STAGE 2 3:00 60 164/6220.00 STAGE 3 3:00 115 162/7030.00 STAGE 4 2:49 130 150/6040.00 RECOVERY 90 150/62 Stress Duration: 11:49 mm:ss Maximum Stress HR: 130 bpm Baseline Echocardiogram Findings The estimated ejection fraction is 60 %. Stress Echo Wall motion Data Resting WM Intermediate WM Stress WM Resting Wall Motion Wall Motion Stress No regional wall motion No regional wall motion abnormalities noted. abnormalities noted. EKG Data The baseline ECG displays normal sinus rhythm. The patient was titrated from 10 mcg to a maximum of 40 mcg of dobutamine during the stress. The maximum heart rate attained was 129 beats per minute. This was 85% of maximum predicted heart rate. During dobutamine infusion, there were no ST or T wave changes noted to suggest ischemia. No clinical angina was noted. Interpretation Summary The estimated ejection fraction is 60 %. Normal, adequate, dobutamine echocardiogram. Negative for ischemia by EKG and echocardiographic criteria. No anginal symptoms noted. Appropriate blood pressure response to dobutamine. Test terminated due to the attainment of target heart rate. Final LVEF is 75%. No complications. Ordering Physician: MD Brian Kinney MD Referring Physician: MD Brian Kinney MD Performed By: Adelso Brewer RCS
[2020-02-14 09:28] VITALS: BP 153/77; PULSE 70; RESP 18; TEMP 36.7; O2SAT 100
[2020-02-14] MEDS: Magnesium Oxide 400 MG Tablet PO (09:29)
[2020-02-14] MEDS: Smz/Tmp Ds Tablet 0.5 TABLET PO (09:29)
[2020-02-14] MEDS: Calcium Acetate 667 MG Capsule PO (09:29)
--- NOTE | 2020-02-14 10:00 | CASEMGMT ---
Pt declines SNF at this time and states she will do therapy but would like OP therapy set up at [facility]. Pt declines HHC at this time. Order for OP therapy at [facility] signed and faxed to [facility] at this time. Original to pt and copy for chart. Pt voices no further questions/concerns/needs at this time. Leonides PAREDES CM
--- NOTE | 2020-02-14 10:54 | DCINST_ITS ---
- Discharge Diagnoses Current Active Problems: Current Active and Chronic Problems Chest pain (Acute) HTN (hypertension) (Chronic) HLD (hyperlipidemia) (Chronic) ESRD (end stage renal disease) on dialysis (Chronic) Diabetes mellitus, type II (Chronic) History of deep venous thrombosis (DVT) of distal vein of left lower extremity (Chronic) Anxiety and depression (Chronic) Asthma (Acute) GERD (gastroesophageal reflux disease) (Chronic) You will use the following diet at home:: No restrictions Discharge Activity: Return to Normal Activity Call your doctor if you observe: Shortness of breath, Dizziness, Fainting spells, Chest pain Allergies/Adverse Reactions: Allergies No Known Allergies Allergy (Verified 02/12/20 22:13) Medications to take at Discharge Amlodipine [Norvasc] 10 mg PO DAILY 12/19/19 Apixaban [Eliquis] 2.5 mg PO BID 12/19/19 Atenolol 25 mg PO DAILY 12/19/19 Calcium Acetate 667 mg PO TID 12/19/19 Cyclobenzaprine HCl 5 mg PO TID 12/19/19 Gabapentin 300 mg PO TID 12/19/19 Hydralazine HCl 100 mg PO TID 12/19/19 Magnesium Oxide 400 mg PO DAILY 12/19/19 Mirtazapine [Remeron] 45 mg PO QHS 12/19/19 Pantoprazole Sodium 40 mg PO BID 12/19/19 Sulfamethoxazole/Trimethoprim [Sulfamethoxazole-Tmp Ss Tablet] 1 tab PO DAILY 02/12/20 Primary Care Physician: Som Jha NP-C [Primary Care Provider] - Please follow up with your Primary Care Physician in: 1 Week Test Results: Test results from this visit will be discussed in further detail at your follow- up appointment, if applicable. Please Follow Up With: Nephrology When: As scheduled Proposed Discharge Date: 02/14/20
--- NOTE | 2020-02-14 11:02 | DS.PCM_ITS ---
<Chantal Barrera - Last Filed: 02/14/20 11:17> Discharge Date and Diagnosis Date of Admission: 02/12/20 Date of Discharge: 02/14/20 - Primary Discharge Diagnosis Acute Problems: Active Problems 1. Left-sided weakness, CVA ruled out 2. Noncardiac chest pain 3. End-stage renal disease 4. Hypertension 5. Hyperlipidemia 6. Type 2 diabetes mellitus 7. Mild intermittent asthma 8. Depression with anxiety 9. GERD 10. History of left lower extremity DVT - Secondary Discharge Diagnosis Chronic Problems: Chronic Problems HTN (hypertension) (Chronic) HLD (hyperlipidemia) (Chronic) ESRD (end stage renal disease) on dialysis (Chronic) Diabetes mellitus, type II (Chronic) History of deep venous thrombosis (DVT) of distal vein of left lower extremity (Chronic) Anxiety and depression (Chronic) GERD (gastroesophageal reflux disease) (Chronic) Hospital Course and Treatment Imaging Results: Diagnostic Data Brain CT 02/12/20 20:06 IMPRESSION: Chronic involutional changes of the brain. There is no evidence of intracranial hemorrhage or acute infarct. If clinically indicated, CTA brain and/or MRI may be helpful for further evaluation. Electronically Signed: Marcos Mead MD at 20:28 EDT , Service support , ADDENDUM: 02/12/202041 IMPRESSION: Chronic involutional changes of the brain. There is no evidence of intracranial hemorrhage or acute infarct. If clinically indicated, CTA brain and/or MRI may be helpful for further evaluation. N.B. : The above information has been verbally conveyed by Marcos Mead MD to Jeff Sharif MD, on 02/12/2020 20:36:00 (ET). Electronically Signed: Marcos Mead MD at 20:28 EDT , Service support , Head/Neck CTA 02/12/20 20:07 IMPRESSION: 1. Minimal bilateral carotid plaque without significant stenosis by a massive anterior. 2. Hypoplastic P1 segments of the bilateral posterior cerebral arteries. The P2 and visualized P3 segments are supplied via the patent bilateral posterior communicating arteries. 3. No evidence of acute intracranial abnormality. N.B. : The above information has been verbally conveyed by Giuseppe Malone DO to Jeff Montelongo MD, on 02/12/2020 20:40:03 (ET). Electronically Signed: Giuseppe Malone DO at 20:42 EDT Tel [phone], Service support , ADDENDUM: 02/12/202048 IMPRESSION: 1. Minimal bilateral carotid plaque without significant stenosis by a massive anterior. 2. Hypoplastic P1 segments of the bilateral posterior cerebral arteries. The P2 and visualized P3 segments are supplied via the patent bilateral posterior communicating arteries. 3. No evidence of acute intracranial abnormality. N.B. : The above information has been verbally conveyed by Giuseppe Malone DO to Jeff Montelongo MD, on 02/12/2020 20:40:03 (ET). Electronically Signed: Giuseppe Malone DO at 20:42 EDT Tel [phone], Service support , Chest X-Ray 02/12/20 20:45 IMPRESSION: No acute cardiopulmonary disease process is seen. Chest findings are stable in the interval. Electronically Signed: Marcos Mead MD at 21:10 EDT , Service support , Brain MRI 02/13/20 09:15 IMPRESSION: Atrophy and advanced periventricular white matter ischemic changes. Old right thalamic infarct and chronic ischemic changes within the shereen. No evidence for acute infarct. Electronically Signed: Linwood Black MD at 16:10 EDT , Service support , Cervical Spine MRI 02/13/20 09:31 IMPRESSION: No evidence for acute fracture or other significant bony pathology.. Spondylosis and multilevel spinal stenosis secondary to disc disease and bony hypertrophy more severe on the right. Findings as above Electronically Signed: Linwood Black MD at 16:19 EDT , Service support , Dr. Mirza- Nephrology Telestroke consult Operations: None Procedures: 2-D Echocardiogram, Stress test Summary of Care Provided: The patient is a 70 year old F admitted 02/12/2020 due to left-sided weakness and expressive aphasia. 1. Left-sided weakness, CVA ruled out-patient reports she has had left lower extremity weakness for the past 2 years secondary to surgery related to left groin hematoma. She states she was told prior to surgery that it may cause long-term complications including weakness/sensory deficits however the surgery was necessary. Head and neck CTA shows minimal bilateral carotid plaque without significant stenosis. MRI of brain shows old right thymic infarct and chronic ischemic changes. No evidence of acute infarct. Cervical spine MRI shows no evidence for acute fracture. Multilevel spinal stenosis. Discussed rehab/SNF however patient is not agreeable at this time. Plan for outpatient PT. Continue Eliquis, statin. Follow-up with PCP in 1 week. 2. Noncardiac chest pain-troponin negative. Patient underwent stress echo which was negative for ischemia. Estimated ejection fraction 60%. 3. End-stage renal disease-continue hemodialysis regimen, follow-up with nephrology. Patient states she has upcoming appointment for possible peritoneal dialysis. 4. Hypertension-stable, continue amlodipine, atenolol. 5. Hyperlipidemia-on atorvastatin 20 mg nightly however this is not listed on home medication regimen. Continue. 6. Type 2 diabetes mellitus-diet controlled. Hemoglobin A1c 813 2024.8%. 7. Mild intermittent asthma-no exacerbation. 8. Depression with anxiety-on Remeron. 9. GERD-continue PPI. 10. History of left lower extremity DVT-on anticoagulation with Eliquis. Patient seen and examined prior to discharge. Physical assessment as noted below. Patient is stable for discharge with follow up recommendations as noted above. This patient was seen by JOE Zayas under the supervision of Dr. Kinney. - Physical Exam Vitals/I&O's: Vital Signs Temp Pulse Resp BP Pulse Ox 98.1 F 70 18 153/77 H 100 02/14/20 09:28 02/14/20 09:28 02/14/20 09:28 02/14/20 09:28 08/15/20 09:28 Oxygen Flow Rate (L/min) 2 Oxygen Delivery Method Room Air Weight: 160 lb 14.999 oz Body Mass Index (BMI) 23.8 Finger Stick Blood Glucose 87 Intake and Output for Last 24 Hours 02/12/20 02/13/20 02/14/20 23:59 23:59 23:59 Intake Total 3208.33 / 3208.33 873.33 / 873.33 Output Total 1999 Balance 1208.33 / 1208.33 873.33 / 873.33 General: Alert, Oriented x3, Cooperative HEENT: Atraumatic, PERRLA, EOMI, Normocephalic Neck: Supple, No JVD, Negative Carotid Bruits Lungs: Clear to auscultation, Normal air movement Cardiovascular: Regular rate, No murmurs Abdomen: Bowel Sounds Present, Soft, Non Tender Extremities: No clubbing, No cyanosis, No edema, Capillary Refill Less than 3 Seconds Skin: No rashes, No breakdown Musculoskeletal: No Tenderness to Palpation of Joints or Extremities, - - Chronic left lower extremity weakness Neurological: Cranial nerves II-XII grossly intact Psych/Mental Status: Normal Affect, Appropriate Laboratory Results 02/13/20 10:33: Troponin I < 0.015 02/13/20 11:51: POC Glucose 89 02/13/20 13:10: Troponin I < 0.015 02/13/20 16:50: Troponin I < 0.015 02/13/20 17:12: POC Glucose 90 02/13/20 22:17: POC Glucose 83 02/14/20 06:53: POC Glucose 73 Current Medications Acetaminophen (Tylenol) 650 mg PO Q6H PRN PRN PRN Reason: Pain Score 1-10/Temp > 100.7 F Al Hydroxide/Mg Hydroxide (Mylanta Ii) 30 ml PO Q6H PRN PRN PRN Reason: Gastric Burning Albuterol Sulfate (Ventolin Aerosols) 2.5 mg INHALATION Q2H PRN PRN PRN Reason: Dyspnea, wheezing Apixaban (Eliquis) 2.5 mg PO BID [facility] Last Admin: 02/13/20 21:55 Dose: 2.5 mg Documented by: Aspirin (Aspirin, Baby) 81 mg PO DAILY@0800 [facility] Last Admin: 02/14/20 06:50 Dose: 81 mg Documented by: Aspirin (Aspirin) 300 mg RECTAL DAILY PRN PRN Reason: NPO Atorvastatin Calcium (Lipitor) 40 mg PO QHS [facility] Last Admin: 02/13/20 21:56 Dose: 40 mg Documented by: Calcium Acetate (Phoslo Gel Cap) 667 mg PO TIDCM [facility] Last Admin: 02/14/20 09:29 Dose: 667 mg Documented by: Gabapentin (Neurontin) 300 mg PO TID [facility] Last Admin: 02/14/20 06:50 Dose: 300 mg Documented by: Guaifenesin (Robitussin) 20 ml PO Q4H PRN PRN PRN Reason: COUGH Heparin Sodium (Porcine) () 2,500 units IV UD PRN PRN Reason: Dialysis Cath Heparin Flush Hydralazine HCl (Apresoline Iv) 5 mg IV Q30M PRN PRN Reason: to maintain BP goals Sodium Chloride () 1,000 mls @ 100 mls/hr IV .Q10H [facility] Last Admin: 02/14/20 07:38 Dose: 100 mls/hr Documented by: Pantoprazole Sodium 40 mg/ (Sodium Chloride) 110 mls @ 330 mls/hr IV Q12 [facility] Last Infusion: 02/14/20 09:59 Dose: Infused Documented by: Labetalol HCl (Trandate) 20 mg IV X1 PRN PRN Reason: BLOOD PRESSURE Magnesium Hydroxide (Milk Of Magnesia) 30 ml PO DAILY PRN PRN PRN Reason: Constipation Magnesium Oxide (Mag-Ox 400) 400 mg PO DAILY [facility] Last Admin: 02/14/20 09:29 Dose: 400 mg Documented by: Melatonin (Melatonin) 3 mg PO QHS PRN PRN PRN Reason: INSOMNIA Mirtazapine (Remeron) 45 mg PO QHS [facility] Last Admin: 02/13/20 21:56 Dose: 45 mg Documented by: Morphine Sulfate () 4 mg IV Q3H PRN PRN PRN Reason: Pain Score 6-10/10 Nitroglycerin (Nitrostat) 0.4 mg SUBLINGUAL Q5M PRN PRN Reason: CARDIAC/CHEST PAIN Ondansetron HCl (Zofran) 4 mg IV Q8H PRN PRN PRN Reason: NAUSEA/VOMITING Oxycodone HCl (Oxyir) 5 mg PO Q4H PRN PRN PRN Reason: Pain Score 4-5/10 Prochlorperazine Edisylate (Compazine Iv) 5 mg IV Q4H PRN PRN PRN Reason: Breakthrough Nausea/Vomiting Psyllium Hydrophilic Mucilloid (Metamucil) 1 packet PO DAILY PRN PRN PRN Reason: Constipation Senna/Docusate Sodium (Senokot-S, Amara-Colace) 2 tablet PO BID PRN PRN PRN Reason: Constipation Sodium Chloride () 10 ml IV UD PRN PRN Reason: Dialysis Catheter Flush Last Admin: 02/12/20 22:44 Dose: 10 ml Documented by: Sodium Chloride () 10 - 40 ml IV UD PRN PRN Reason: SALINE FLUSH Throat Lozenges (Cepacol Sore Throat Lozenge) 1 lozenge MUCOUS MEM Q2H PRN PRN PRN Reason: SORE THROAT Trimethoprim/Sulfamethoxazole (Bactrim Ds) 0.5 tablet PO DAILYCM NARESH Stop: 02/15/20 08:01 Last Admin: 02/14/20 09:29 Dose: 0.5 tablet Documented by: Discharge Diet: No Restrictions Discharge Activity: Return to Normal Activity Call your doctor if you observe: Shortness of breath, Dizziness, Fainting spells, Chest pain Home Medications: Medications to take at Discharge Amlodipine [Norvasc] 10 mg PO DAILY 12/19/19 Apixaban [Eliquis] 2.5 mg PO BID 12/19/19 Atenolol 25 mg PO DAILY 12/19/19 Calcium Acetate 667 mg PO TID 12/19/19 Cyclobenzaprine HCl 5 mg PO TID 12/19/19 Gabapentin 300 mg PO TID 12/19/19 Hydralazine HCl 100 mg PO TID 12/19/19 Magnesium Oxide 400 mg PO DAILY 12/19/19 Mirtazapine [Remeron] 45 mg PO QHS 12/19/19 Pantoprazole Sodium 40 mg PO BID 12/19/19 Sulfamethoxazole/Trimethoprim [Sulfamethoxazole-Tmp Ss Tablet] 1 tab PO DAILY 02/12/20 Primary Care Physician: Som Jha NP-C [Primary Care Provider] - Please follow up with your Primary Care Physician in: 1 Week Please Follow Up With: Nephrology When: As scheduled Disposition: Home Minutes spent on discharge:: 35 Patient Condition:: Stable Medical Necessity - Tobacco Use Smoking Status: Current every day smoker Tobacco Use: Cigarettes Meaningful Use Info Meaningful Use Diagnoses (Choose all that apply): None applicable <Brian Kinney - Last Filed: 02/14/20 14:56> Discharge Date and Diagnosis - Secondary Discharge Diagnosis Chronic Problems: Chronic Problems HTN (hypertension) (Chronic) HLD (hyperlipidemia) (Chronic) ESRD (end stage renal disease) on dialysis (Chronic) Diabetes mellitus, type II (Chronic) History of deep venous thrombosis (DVT) of distal vein of left lower extremity (Chronic) Anxiety and depression (Chronic) GERD (gastroesophageal reflux disease) (Chronic) Hospital Course and Treatment Imaging Results: 02/14/20 08:16 Stress Test Echo w/o Contrast [ECHO] Routine Summary of Care Provided: This patient was seen in conjunction with JOE Zayas . I have independently interviewed and examined the patient and reviewed pertinent historical, laboratory, and other data. Please refer to JOE Zayas note for details of this patient's presentation, findings, and recommendations. I have reviewed JOE Zayas note and concur with documented findings. In brief, Patient is a 70-year-old lady with multiple comorbidities including diabetes mellitus type 2, end-stage renal disease on hemodialysis who presented with left-sided weakness with expressive aphasia and some confusion chest pain. Admitted to monitored bed for subsequent management Hospital course as documented above. - Physical Exam Vitals/I&O's: Vital Signs Temp Pulse Resp BP Pulse Ox 98.1 F 70 18 153/77 H 100 02/14/20 09:28 02/14/20 09:28 02/14/20 09:28 02/14/20 09:28 02/14/20 09:28 Oxygen Flow Rate (L/min) 2 Oxygen Delivery Method Room Air Weight: 73 kg Body Mass Index (BMI) 23.8 Finger Stick Blood Glucose 87 Intake and Output for Last 24 Hours 02/12/20 02/13/20 02/14/20 23:59 23:59 23:59 Intake Total 3208.33 / 3208.33 1583.33 / 1583.33 Output Total 1999 Balance 1208.33 / 1208.33 1583.33 / 1583.33 Laboratory Results 02/13/20 16:50: Troponin I < 0.015 08/14/20 17:12: POC Glucose 90 02/13/20 22:17: POC Glucose 83 02/14/20 06:53: POC Glucose 73 Inpatient E&M: 48828 Disch Hosp
--- NOTE | 2020-02-14 11:08 | CASEMGMT ---
PHQ-9 not indicated at this time as pt has not have CVA as per MRI. JENIFER Sherman
[2020-02-14] MEDS: APIXABAN 2.5 MG TABLET PO (11:19)
[2020-02-14 11:31] VITALS: BMI 23.8
--- NOTE | 2020-02-16 15:27 | CASEMGMT ---
RN CM Discharge Follow-Up Phone Call. Lace: 12 Strata: 3 Discharge Date: 02/14/20 Adm Dx: CVA Attempted discharge follow-up phone call to both cell phone numbers listed. No answer @ either number. The first number called, VM message came on but there was no name identified, so no message left by this RN CM. The 2nd number called just kept ringing/unable to leave VM message. Tanmay HOFFMANN RN CM
== END 2020-02-14 13:05 | disposition home or self-care (01) | DRG 947 ==
LOC: ED 20:16 → PCU 21:20
PROVIDERS: Admitting Provider Family Medicine; Emergency Provider Emergency Medicine; PCP Nurse Practitioner Family; Visit Provider Internal Medicine
DX: R53.1 Weakness (principal); N18.6 End stage renal disease; I12.0 Hypertensive chronic kidney disease with stage 5 chronic kidney disease or end stage renal disease; R47.01 Aphasia; G81.94 Hemiplegia, unspecified affecting left nondominant side; N39.0 Urinary tract infection, site not specified; R07.89 Other chest pain; E11.22 Type 2 diabetes mellitus with diabetic chronic kidney disease; E78.5 Hyperlipidemia, unspecified; J45.20 Mild intermittent asthma, uncomplicated; K21.9 Gastro-esophageal reflux disease without esophagitis; Z86.718 Personal history of other venous thrombosis and embolism; F41.9 Anxiety disorder, unspecified; F32.9 Major depressive disorder, single episode, unspecified; Z79.02 Long term (current) use of antithrombotics/antiplatelets; Z99.2 Dependence on renal dialysis; R29.705 NIHSS score 5; Z79.899 Other long term (current) drug therapy; F17.210 Nicotine dependence, cigarettes, uncomplicated; E11.40 Type 2 diabetes mellitus with diabetic neuropathy, unspecified; Z79.2 Long term (current) use of antibiotics; D63.1 Anemia in chronic kidney disease
CPT/HCPCS: 36415; 70450; 70496; 70498; 70551; 71045; 72141; 80048; 80053; 80061; 82962; 83036; 83735; 84439; 84443; 84484; 85025; 85610; 85730; 90937; 92610; 93005; 93017; 93306; 93350; 94762; 97162; 97166; 99251; 99285; 99406; J2997; J7030; J7040; Q9967; A4216; G0257; G0463

== ENCOUNTER 2020-02-25 13:11 | Emergency (ER) | payer MEDICARE, SELFPAY ==
[2020-02-25 13:16] VITALS: BP 163/80; PULSE 80; RESP 20; TEMP 36.8; O2SAT 99; BMI 24.1
[2020-02-25 13:48] VITALS: BP 149/84; O2SAT 100
--- NOTE | 2020-02-25 13:57 | VDLE_ITS ---
Reason For Study: Pain Procedure LEFT Exam performed portable in ED. GSV is normal. Technically limited study, patient unable to CFV is patent, visualized with color only. tolerate compression groin to knee. Normal venous flow noted. A preliminary report was called and/or faxed SFJ is patent, visualized with color only. to Johann. FV is patent, visualized with color only. Normal venous flow noted. PopV is patent, visualized with color only. Normal venous flow noted. T/P Trunk is patent, visualized with color only. PTV is compressible. LT PerV is compressible. Interpretation Summary There is no evidence of left lower extremity deep vein thrombosis. Left great saphenous vein appears patent and compressible segmentally. Please note that this is a technically limited examination due to patient's inability to tolerate compression. Interpretation involving the left saphenofemoral junction and femoral vein and popliteal vein are made upon color flow only. Ordering Physician: Stiven Wills Referring Physician: Som Jha Performed By: Rashmi Barrientos RVT
--- NOTE | 2020-02-25 13:58 | ED.VISSUMM ---
- ER Visit Summary Date of Service: 02/25/20 Chief Complaint: Left knee pain History of Present Illness: The patient is a 70 F who presents with left knee pain that began today. Patient states she noted some pain in her left knee when she woke up. Patient states she tried to ambulate and her pain became worse. Patient describes her pain is sharp. Patient states her pain is worse with any standing. Patient admits to some chronic numbness in her leg but denies any weakness. Patient states her pain feels similar to the pain she had with prior blood clot. Patient is currently on Eliquis for DVT. Physical Examination: Vital signs are stable. Patient is afebrile. Patient is in no acute distress. Oral mucosa is pink and moist. Neck is supple. Trachea is midline. There is no JVD. Musculoskeletal exam reveals tenderness over the left knee. Range of motion was limited in all motions of the left knee secondary to pain. There is no laxity appreciated. However, the patient was guarding on exam. There is no calf tenderness or edema. Pedal pulses are equal bilaterally. There is no obvious deformity noted. Sensation was intact to light touch in the lower extremities bilaterally. Test Results: X-rays of the left knee were obtained. There are degenerative changes noted. There is sclerosis of the distal femur secondary to fibromuscular dysplasia or Paget's disease. Radiologist recommended correlation with MRI as an outpatient. This was interpreted by the radiologist and reviewed by myself. Venous duplex of the left lower extremity was obtained. There is no evidence of DVT. Emergency Department Course and Treatment: Patient was given a dose of morphine here. Patient was feeling better on reevaluation. Patient was given a prescription for a short course of [place]. Patient was instructed to follow-up with her primary care physician in 5 to 7 days. Patient understood and was agreeable with the plan. All questions were answered. Disposition: Discharge home Impression: Left knee pain This note was generated with [employer] dictation software. It may contain incorrect words, spelling, and punctuation that were not noted in review of the chart prior to signing ED Disposition - Plan for ED Patient: Disposition: Home or Assisted Living Diagnosis: Left knee pain Instructions: ED Knee Pain [facility] Prescriptions: Hydrocodone Bitart/Apap 5-325 [[place] 5MG-325MG] 1 tab PO Q6H PRN PRN 3 Days #10 tab PRN Reason: Pain Prescription Printed Referrals: Som Jha [employer]ILROAD SUPERVISOR [employer] ENG[employer]ES-C [Primary Care Provider] - 3-5 Days
[2020-02-25] MEDS: Morphine 4 MG/ML Syringe IV (14:08)
--- NOTE | 2020-02-25 14:30 | RAD_ITS ---
STUDY: X-RAY - LEFT KNEE REASON FOR EXAM: Female, 70 years old. LT KNEE PAIN. SWELLING, DENIES INJURY TECHNIQUE: 4 view(s) of the knee. COMPARISON: None. FINDINGS: There is a 10 cm x 3.6 cm area of the heterogeneous sclerosis of the distal femoral shaft extending into the metaphysis of the distal femur and lateral condyle. This may represent changes secondary to fibromuscular dysplasia or Paget''s disease. Correlation with MRI is recommended. Normal visualized proximal tibia and fibula. Normal proximal tibiofibular articulation. There is mild degenerative arthrosis of the medial femorotibial compartment. Normal lateral femorotibial compartment. Normal patellofemoral articulation. The soft tissue structures are unremarkable. RAD/Knee 4 or More Views IMPRESSION: Heterogeneous sclerotic appearance of the distal femur as described. Correlation with MRI is recommended. Electronically Signed: Lopez Barraza, at 14:45 EDT , Service support ,
[2020-02-25 15:30] VITALS: BP 157/74; PULSE 68; RESP 15; O2SAT 98
== END 2020-02-25 15:31 | disposition home or self-care (01) ==
PROVIDERS: Emergency Provider Emergency Medicine; PCP Nurse Practitioner Family
DX: M25.562 Pain in left knee (principal); I25.10 Atherosclerotic heart disease of native coronary artery without angina pectoris; I12.0 Hypertensive chronic kidney disease with stage 5 chronic kidney disease or end stage renal disease; E11.22 Type 2 diabetes mellitus with diabetic chronic kidney disease; N18.6 End stage renal disease; Z86.718 Personal history of other venous thrombosis and embolism; Z79.01 Long term (current) use of anticoagulants; Z72.0 Tobacco use
CPT/HCPCS: 73564; 93971; 96374; 99285; A4216

== ENCOUNTER 2020-03-27 10:13 | Outpatient (CLI) | payer MEDICARE, MEDICAID, SELFPAY ==
[2020-03-27] VITALS (10 sets, daily range): BP systolic 112–160; BP diastolic 55–77; PULSE 73–94; RESP 18; TEMP 36.7–37.3; O2SAT 95–100; BMI 22.7
[2020-03-27] MEDS: 0.9% NaCl Peripheral Flush Adult/Peds IV (10:45)
== END 2020-03-27 18:20 | disposition home or self-care (01) ==
LOC: MEDOUTP 10:15 → MS3 10:16
PROVIDERS: PCP Nurse Practitioner Family; Referring Provider Internal Medicine Nephrology; Visit Provider Internal Medicine Nephrology
DX: D64.9 Anemia, unspecified (principal)
CPT/HCPCS: 36415; 36430; 86850; 86900; 86901; 86920; 86922; J7040; P9016; A4216

== ENCOUNTER 2020-03-31 10:42 | Emergency (ER) | payer MEDICARE, MEDICAID, SELFPAY ==
[2020-03-27 11:19] VITALS: BMI 22.7
[2020-03-31 10:43] VITALS: BP 188/84; PULSE 70; RESP 20; TEMP 37.1; O2SAT 97; BMI 25.4
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
[2020-03-31 11:46] LABS: Absolute Lymphocyte Count 1.34 X10^3/uL (0.83-4.51); Absolute Neutrophil Count 7.5 X10^3/uL (2.0-7.7); Basophil# 0.04 X10^3/uL; Basophil% 0.4 % (0-1); Eosinophil# 0.28 X10^3/uL; Eosinophils% 2.9 % (0-5); Hematocrit 31.2 % (37-47); Hemoglobin 9.9 g/dL (12.0-15.0); Lymphocyte # 1.34 X10^3/ul (4.0); Lymphocyte % 13.7 % (19-41); Mean Corp Hgb Conc 31.7 g/dL (32-36); Mean Corpuscular Hgb 30.7 pg (27.0-32.0); Mean Corpuscular Volume 96.6 fL (81-99); Mean Platelet Vol. 8.9 fl (6.2-12.0); Monocyte# 0.57 X10^3/uL; Monocyte% 5.8 % (0-10); NRBC Flagged by Analyzer 0 % (0-5); Neutrophil # 7.51 X10^3/uL (2.7-7.7); Neutrophil % 76.9 % (47-70); Platelet Count 201 K/mm3 (150-450); RBC Distribution Width CV 15.4 % (11.6-14.6); RBC Distribution Width SD 53.7 fl (35.1-43.9); Red Blood Count 3.23 M/mm3 (4.2-5.4); White Blood Count 9.8 K/mm3 (4.4-11.0)
[2020-03-31 12:00] LABS: Anion Gap 7 (5-15); BUN 38 mg/dL (7-18); BUN/Creat Ratio 6.8 RATIO (10-20); Calcium,Total 8.5 mg/dL (8.5-10.1); Chloride 106 mmol/L (98-107); Creatinine, Serum 5.61 mg/dL (0.55-1.02); EST Glomerular Filtration Rate 8 mL/min (>60); Est Glom Filt Rate - Afr Amer 10 mL/min (>60); Estimated Creatinine Clearance 10.03 ml/min; Glucose 96 mg/dL (74-106); Potassium 3.8 mmol/L (3.5-5.1); Sodium Level 137 mmol/L (136-145)
== END 2020-03-31 13:12 | disposition home or self-care (01) ==
LOC: ED 12:59
PROVIDERS: Emergency Provider Emergency Medicine; PCP Nurse Practitioner Family
DX: R19.5 Other fecal abnormalities (principal); D64.9 Anemia, unspecified; I12.0 Hypertensive chronic kidney disease with stage 5 chronic kidney disease or end stage renal disease; N18.6 End stage renal disease; F17.200 Nicotine dependence, unspecified, uncomplicated; Z99.2 Dependence on renal dialysis; Z86.73 Personal history of transient ischemic attack (TIA), and cerebral infarction without residual deficits; Z86.718 Personal history of other venous thrombosis and embolism; Z79.01 Long term (current) use of anticoagulants; K21.9 Gastro-esophageal reflux disease without esophagitis; E78.5 Hyperlipidemia, unspecified
CPT/HCPCS: 80048; 82274; 85025; 99284; A4216

== ENCOUNTER 2020-04-27 08:26 | Day surgery (SDC) | payer MEDICARE, MEDICAID, SELFPAY ==
[2020-04-08 14:17] VITALS: BMI 25.4
[2020-04-27] VITALS (7 sets, daily range): BP systolic 100–148; BP diastolic 60–77; PULSE 59–69; RESP 16; TEMP 36.2–36.7; O2SAT 97–100; BMI 23.7
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
[2020-04-27] MEDS: Lactated Ringers 1,000 ML 100 ML IV (09:41)
[2020-04-27 09:45] LABS: Bedside Glucose 88 mg/dL (70-110)
--- NOTE | 2020-04-27 10:00 | IMM_PTH ---
PATIENT: ALEC GUTIERREZ LOC: EN U#:[id number] AGE/SX: 70/F ROOM: RE04/27/[address]: Dr. Martínez Downs MD : 1950 BED: DIS: 04/27/2020 SPEC #: [id number] RECD: 04/27/20 13:30 STATUS: OSIEL RERafa #: [id number] JABIER: 04/27/20 10:[address]: Martínez Downs DEPT: IMMUNOHISTOCHEMISTRY RECD BY: Monica Doss ENTERED: 04/27/20 13:31 SP TYPE: IMMUNO OTHR DR: Som Jha, MOBILE DISC JOCKEY-C Tissues: Stomach, NOS Procedures: H Pylori (initial) PHYSICIAN & INSTITUTION [place] [id number] SPECIMEN INFORMATION: Tissue Source: Antrum biopsy Clinical Info: Darlene, abhi Specimen Number: [id number] CPT code: 51015 METHODOLOGY: Deparaffinized sections of prefer/formalin-fixed tissue or PAP/DQ stained slides are incubated with monoclonal/polyclonal antibodies/oligonucleotide probes. Localization is made via biotin free immunoperoxidase method. Appropriate controls are performed and reacted as expected. Results on target cell population are indicated in the following table: RESULTS: ANTIBODY / CLONE RESULT H Pylori (polyclonal) negative These tests were developed and their performance characteristics determined by [facility]. They may not have been cleared or approved by the U.S. Food and Drug Administration. The FDA has determined that such clearance or approval is not necessary. INTERPRETATION: Antrum biopsy: Negative for Helicobacter pylori organisms. AM:ronnie 04/28/20
--- NOTE | 2020-04-27 10:00 | EGD_PTH ---
PATIENT: ALEC GUTIERREZ LOC: EN U#:[id number] AGE/SX: 70/F ROOM: RE04/27/[address]: Dr. Martínez Downs MD : 1950 BED: DIS: 04/27/2020 SPEC #: [id number] RECD: 04/27/20 13:04 STATUS: OSIEL IZZY #: [id number] JABIER: 04/27/20 10:[address]: Martínez Downs DEPT: SURGICAL PATHOLOGY RECD BY: Skyla Mclaughlin ENTERED: 04/27/20 13:30 SP TYPE: EGD BIOPSY OT DR: JOE Montes De Oca Tissues: Gastric mucous membrane Procedures: Surgery Specimen Level IV HEADER OPERATION: EGD ([facility] [place], [place]) PRE-OP DIAGNOSIS: Melena, anemia TISSUE SUBMITTED: Antrum biopsy for H. pylori and path MICROSCOPIC DIAGNOSIS Gastric antrum, biopsy: Chronic gastritis, mild to moderate. See comment. AM:ronnie 04/28/20 COMMENT The results of immunohistochemistry for Helicobacter pylori will be reported separately ([id number]). MICROSCOPIC DESCRIPTION Slides are reviewed. GROSS DESCRIPTION Received in fixative is one container labeled with the patient's name and designated antrum biopsy. The specimen consists of one irregular fragment of light trejo soft tissue that measures 0.4 x 0.3 x 0.1 cm. The specimen is totally submitted in one cassette. / SJ:ronnie 04/27/20 TC:3 CPT: 36994
--- NOTE | 2020-04-27 10:13 | OP.EGD_ITS ---
Patient Name: Cori Ferrer Procedure Date: 04/27/2020 9:58 AM Date of : 1950 Age: 70 Procedure: Upper GI endoscopy Indications: Iron deficiency anemia Providers: Martínez Downs MD Referring MD: Mel Montes De Oca Medicines: Monitored Anesthesia Care Patient Profile: This is a 70 year old female. Refer to note in patient chart for documentation of history and physical. Complications: No immediate complications. Estimated blood loss: Minimal. Procedure: Pre-Anesthesia Assessment: - Prior to the procedure, a History and Physical was performed, and patient medications and allergies were reviewed. The patient's tolerance of previous anesthesia was also reviewed. The risks and benefits of the procedure and the sedation options and risks were discussed with the patient. All questions were answered, and informed consent was obtained. Prior Anticoagulants: The patient has taken Eliquis (apixaban), last dose was 2 days prior to procedure. After reviewing the risks and benefits, the patient was deemed in satisfactory condition to undergo the procedure. After obtaining informed consent, the endoscope was passed under direct vision. Throughout the procedure, the patient's blood pressure, pulse, and oxygen saturations were monitored continuously. The gastroscope was introduced through the mouth, and advanced to the second part of duodenum. The upper GI endoscopy was accomplished without difficulty. The patient tolerated the procedure well. Scope In: 10:07:09 AM Scope Out: 10:09:17 AM Total Procedure Duration Time 0 hours 2 minutes 8 seconds Findings: Localized moderate inflammation was found in the stomach. Biopsies were taken with a cold forceps for Helicobacter pylori testing. The esophagus was normal. The examined duodenum was normal. Impression: - Gastritis. Biopsied. - Normal esophagus. - Normal examined duodenum. Recommendation: - Await pathology results. - Discharge patient to home. - Resume previous diet. - Continue present medications. - Resume Eliquis (apixaban) at prior dose tomorrow. Procedure Code(s): --- Professional --- 37876, Esophagogastroduodenoscopy, flexible, transoral; with biopsy, single or multiple Diagnosis Code(s): --- Professional --- K29.70, Gastritis, unspecified, without bleeding D50.9, Iron deficiency anemia, unspecified CPT copyright 2017 [employer]. All rights reserved. The codes documented in this report are preliminary and upon outpatient coder review may be revised to meet current compliance requirements. Martínez Downs MD 04/27/2020 10:12:53 AM This report has been signed electronically. Number of Addenda: 0 Note Initiated On: 04/27/2020 9:58 AM
--- NOTE | 2020-04-27 10:13 | OP.CCLET_ITS ---
04/27/2020 Mel Montes De Oca Re : Upper GI endoscopy procedure for Cori Ferrer Dear Abhijeet This procedure was performed on Monday, April 27, 2020. My impressions and recommendations are as follows: Impressions : - Gastritis. Biopsied. - Normal esophagus. - Normal examined duodenum. Recommendations : - Await pathology results. - Discharge patient to home. - Resume previous diet. - Continue present medications. - Resume Eliquis (apixaban) at prior dose tomorrow. My findings are described in the full procedure note, which is enclosed. If I can be of further assistance, please feel free to contact me at Doctor phone number(s): , Work: . Sincerely, Martínez Downs MD 04/27/2020 10:12:53 AM This report has been signed electronically.
== END 2020-04-27 10:58 | disposition home or self-care (01) ==
LOC: EN 08:29 → AC 08:29
PROVIDERS: Anesthesiology; PCP Family Medicine; Visit Provider Surgery
PROC: 0DJ08ZZ Inspection of Upper Intestinal Tract, Via Natural or Artificial Opening Endoscopic (ICD-10-PCS; CPT 43235; principal; 2020-04-27 09:55)
DX: D50.9 Iron deficiency anemia, unspecified (principal); K29.50 Unspecified chronic gastritis without bleeding; K92.1 Melena; K21.9 Gastro-esophageal reflux disease without esophagitis; I12.9 Hypertensive chronic kidney disease with stage 1 through stage 4 chronic kidney disease, or unspecified chronic kidney disease; E11.22 Type 2 diabetes mellitus with diabetic chronic kidney disease; N18.6 End stage renal disease; I25.2 Old myocardial infarction; E78.5 Hyperlipidemia, unspecified; J45.909 Unspecified asthma, uncomplicated; G25.81 Restless legs syndrome; F32.9 Major depressive disorder, single episode, unspecified; F41.9 Anxiety disorder, unspecified; F17.200 Nicotine dependence, unspecified, uncomplicated; Z99.2 Dependence on renal dialysis; Z79.01 Long term (current) use of anticoagulants; Z79.82 Long term (current) use of aspirin; Z79.899 Other long term (current) drug therapy; Z20.828 Contact with and (suspected) exposure to other viral communicable diseases; Z86.73 Personal history of transient ischemic attack (TIA), and cerebral infarction without residual deficits
CPT/HCPCS: 43239; 82962; 87635; 88305; 88342; C9803; J7120; J2405; U0003

== ENCOUNTER 2020-06-09 07:07 | Emergency (ER) | payer MEDICARE, MEDICAID, SELFPAY ==
[2020-04-27 09:34] VITALS: BMI 23.7
[2020-06-09 07:10] VITALS: BP 117/76; PULSE 74; RESP 20; TEMP 36.9; O2SAT 99; BMI 23.1
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
[2020-06-09] MEDS: Dicyclomine 10 MG Capsule 20 MG PO (07:48)
[2020-06-09 08:09] LABS: Absolute Lymphocyte Count 1.28 X10^3/uL (0.83-4.51); Absolute Neutrophil Count 8.4 X10^3/uL (2.0-7.7); Basophil# 0.05 X10^3/uL; Basophil% 0.5 % (0-1); Eosinophil# 0.15 X10^3/uL; Eosinophils% 1.4 % (0-5); Hematocrit 32.9 % (37-47); Hemoglobin 10.4 g/dL (12.0-15.0); Lymphocyte # 1.28 X10^3/ul (4.0); Lymphocyte % 12.3 % (19-41); Mean Corp Hgb Conc 31.6 g/dL (32-36); Mean Corpuscular Volume 91.6 fL (81-99); Mean Platelet Vol. 9.5 fl (6.2-12.0); Monocyte# 0.56 X10^3/uL; Monocyte% 5.4 % (0-10); NRBC Flagged by Analyzer 0 % (0-5); Neutrophil # 8.36 X10^3/uL (2.7-7.7); Neutrophil % 80.1 % (47-70); Platelet Count 267 K/mm3 (150-450); RBC Distribution Width SD 47.5 fl (35.1-43.9); Red Blood Count 3.59 M/mm3 (4.2-5.4); White Blood Count 10.4 K/mm3 (4.4-11.0)
--- NOTE | 2020-06-09 08:20 | ED.RN ---
unable to access iv at this time, Dr Roy aware.
[2020-06-09 08:21] LABS: Anion Gap 8 (5-15); BUN 45 mg/dL (7-18); BUN/Creat Ratio 6.2 RATIO (10-20); Chloride 102 mmol/L (98-107); Creatinine, Serum 7.28 mg/dL (0.55-1.02); EST Glomerular Filtration Rate 6 mL/min (>60); Est Glom Filt Rate - Afr Amer 7 mL/min (>60); Estimated Creatinine Clearance 7.73 ml/min; Glucose 116 mg/dL (74-106); Potassium 3.2 mmol/L (3.5-5.1); Sodium Level 139 mmol/L (136-145)
[2020-06-09 08:25] VITALS: BP 111/70; PULSE 63; RESP 22; O2SAT 98
[2020-06-09] MEDS: Morphine 4 MG/ML Syringe SC (08:26)
[2020-06-09 09:32] VITALS: BP 122/95; PULSE 64; RESP 15; O2SAT 95
[2020-06-09 09:45] LABS: Bedside Glucose 153 mg/dL (70-110)
== END 2020-06-09 10:11 | disposition home or self-care (01) ==
PROVIDERS: Emergency Provider Emergency Medicine; PCP Nurse Practitioner Family
DX: R10.9 Unspecified abdominal pain (principal); R11.2 Nausea with vomiting, unspecified; R19.7 Diarrhea, unspecified; F17.200 Nicotine dependence, unspecified, uncomplicated; Z99.2 Dependence on renal dialysis; Z79.01 Long term (current) use of anticoagulants; Z79.899 Other long term (current) drug therapy
CPT/HCPCS: 74176; 80048; 82962; 85025; 96372; 99284

== ENCOUNTER 2020-07-03 19:31 | Emergency (ER) | payer MEDICARE, MEDICAID, SELFPAY ==
[2020-07-03 19:32] VITALS: BP 113/65; PULSE 68; RESP 16; TEMP 36.3; O2SAT 100; BMI 21.1
--- NOTE | 2020-07-03 19:34 | ED.RN ---
call kevin for registration [id number]
--- NOTE | 2020-07-03 20:59 | EKG12_ITS ---
Test Reason : CHEST PAIN Blood Pressure : / mmHG Vent. Rate : 075 BPM Atrial Rate : 075 BPM P-R Int : 138 ms QRS Dur : 084 ms QT Int : 436 ms P-R-T Axes : 012 -01 068 degrees QTc Int : 486 ms Normal sinus rhythm Normal ECG Confirmed by TERE LEMON, JAN ([id number]), general expeditor BIRDIE TORRES ([id number]) on 07/05/2020 8:49:23 AM Referred By: EMMY Confirmed By:JAN CARRANZA MD
--- NOTE | 2020-07-03 21:10 | RAD_ITS ---
STUDY: X-RAY CHEST REASON FOR EXAM: Female, 70 years old. Right side rib pain, worse with deep breath. Diarrhea, fatigue TECHNIQUE: Single frontal view of the chest. COMPARISON: 02/12/2020 FINDINGS: There is no new focal consolidation. Normal size heart. Normal mediastinum and farhan. Normal visualized pulmonary arteries. Normal visualized aortic arch and descending thoracic aorta. Normal visualized thoracic spine. There are degenerative changes of the right acromioclavicular joint. There is no demonstrated abnormality of the visualized soft tissue structures of the upper abdomen. RAD/Chest 1 View (Portable) IMPRESSION: No acute cardiopulmonary process. Electronically Signed: Arin Allen MD at 21:41 EST Tel , Service support ,
[2020-07-03] MEDS: Morphine 4 MG/ML Syringe IV (21:19)
[2020-07-03] MEDS: Ondansetron 4 MG/2 ML Vial IV (21:19)
[2020-07-03 21:23] VITALS: BP 118/60; PULSE 60; RESP 23; O2SAT 94
[2020-07-03 21:24] LABS: Absolute Neutrophil Count 6.6 X10^3/uL (2.0-7.7); Basophil# 0.03 X10^3/uL; Basophil% 0.3 % (0-1); Eosinophil# 0.23 X10^3/uL; Eosinophils% 2.4 % (0-5); Hematocrit 30.3 % (37-47); Lymphocyte % 21.8 % (19-41); Mean Corpuscular Hgb 30.3 pg (27.0-32.0); Mean Corpuscular Volume 91.8 fL (81-99); Monocyte# 0.64 X10^3/uL; Monocyte% 6.6 % (0-10); NRBC Flagged by Analyzer 0 % (0-5); Neutrophil # 6.59 X10^3/uL (2.7-7.7); Neutrophil % 68.4 % (47-70); Platelet Count 274 K/mm3 (150-450); RBC Distribution Width CV 14.1 % (11.6-14.6); RBC Distribution Width SD 47.8 fl (35.1-43.9); White Blood Count 9.6 K/mm3 (4.4-11.0)
[2020-07-03 22:06] LABS: ALB/GLOB Ratio 0.6 RATIO (0.9-2.4); AST(SGOT) 24 U/L (15-37); Alanine Aminotransfer ALT/SGPT 30 U/L (13-56); Albumin, Serum 2.4 g/dL (3.2-5.0); Alkaline Phosphatase 111 U/L (45-117); Anion Gap 10 (5-15); BUN 40 mg/dL (7-18); BUN/Creat Ratio 4.6 RATIO (10-20); Calcium,Total 8.7 mg/dL (8.5-10.1); Chloride 98 mmol/L (98-107); Creatinine, Serum 8.75 mg/dL (0.55-1.02); EST Glomerular Filtration Rate 5 mL/min (>60); Est Glom Filt Rate - Afr Amer 6 mL/min (>60); Globulin 4.2 g/dL (2.2-4.2); Glucose 96 mg/dL (74-106); Potassium 3.6 mmol/L (3.5-5.1); Protein, Total 6.6 g/dL (6.4-8.2); Sodium Level 137 mmol/L (136-145)
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
--- NOTE | 2020-07-03 23:01 | CT_ITS ---
STUDY: CT ABDOMEN AND PELVIS WITHOUT CONTRAST REASON FOR EXAM: Female, 70 years old. RIGHT RIB PAIN WITH DIARRHEA. COLITIS. PATIENT HAS A DIALYSIS TUBE?? RADIATION DOSAGE (If Supplied By Facility): CTDIvol = ( 7.52 ) mGy, DLP = ( 362.75 ) mGycm TECHNIQUE: Transaxial images were obtained from the dome of the diaphragm to the symphysis pubis without oral contrast, and without intravenous contrast. Sagittal and coronal images were reconstructed. Individualized dose optimization techniques were used for this CT. COMPARISON: 06/09/2020. FINDINGS: The visualized lung bases are unremarkable. The visualized portions of the heart are within normal limits. Hyperdense liver which can be seen in hemochromatosis. Stable spherical mass in the anterior segment of the Liver. There are surgical clips in the gallbladder fossa consistent with a prior cholecystectomy. Normal spleen. Normal pancreas. Normal bilateral adrenal glands. Both kidneys are small. Right kidney measures 8.3 cm greatest dimension. Left kidney measures 7.9 cm greatest dimension. No stones. No hydronephrosis. Evaluation of the GI tract is limited by absence of oral contrast. Cannot exclude stomach wall thickening. No dilated loops of bowel or evidence for obstruction. Cannot exclude segmental thickening of the [place] of the small or large bowel. Cannot exclude enteritis or colitis. Moderate diffuse fecal retention. Appendix within normal limits. Again seen is moderate free fluid in all quadrants. This may be from peritoneal dialysis. There is diffuse atherosclerotic calcification of the abdominal aorta, without a demonstrated aneurysm. There is an IVC filter in place. Normal retroperitoneum. Evaluation of the pelvis is limited by metal artifact from bilateral hip arthroplasties. Grossly normal rectum. Bladder is empty. Uterus is absent. Peritoneal dialysis catheter is coiled in the left lower quadrant. Normal abdominal wall. Normal osseous structures. CT/Abdomen/Pelvis without Cont IMPRESSION: Continued moderate free fluid in all quadrants, probably from peritoneal dialysis. Stable appearance of the liver which is hyperdense and has a 2.7 cm low-attenuation mass anterior segment. Bilateral small kidneys. Evaluation of the GI tract is limited because of the free fluid and absence of oral contrast. Electronically Signed: Bryan Hartley MD at 23:27 EST , Service support ,
[2020-07-03 23:13] VITALS: BP 102/68; PULSE 62; RESP 12; O2SAT 100
[2020-07-03 23:46] VITALS: BP 117/62; PULSE 56; RESP 18; O2SAT 99
== END 2020-07-04 00:05 | disposition home or self-care (01) ==
PROVIDERS: Emergency Provider Emergency Medicine; PCP Nurse Practitioner Family
DX: R07.9 Chest pain, unspecified (principal); I12.0 Hypertensive chronic kidney disease with stage 5 chronic kidney disease or end stage renal disease; E11.22 Type 2 diabetes mellitus with diabetic chronic kidney disease; N18.6 End stage renal disease; N27.1 Small kidney, bilateral; K21.9 Gastro-esophageal reflux disease without esophagitis; E78.5 Hyperlipidemia, unspecified; J45.909 Unspecified asthma, uncomplicated; F17.200 Nicotine dependence, unspecified, uncomplicated; Z99.2 Dependence on renal dialysis; Z86.718 Personal history of other venous thrombosis and embolism; Z90.49 Acquired absence of other specified parts of digestive tract; Z79.01 Long term (current) use of anticoagulants; Z79.899 Other long term (current) drug therapy; Z86.73 Personal history of transient ischemic attack (TIA), and cerebral infarction without residual deficits
CPT/HCPCS: 71045; 74176; 80053; 84484; 85025; 87426; 93005; 96374; 96375; 99284; A4216; J2405

== ENCOUNTER 2020-07-04 16:57 | Emergency (ER) | payer MEDICARE, MEDICAID, SELFPAY ==
[2020-07-03 19:32] VITALS: BMI 21.1
[2020-07-04 17:01] VITALS: BP 128/80; PULSE 59; RESP 25; TEMP 36.1; O2SAT 100; BMI 21.1
[2020-07-04 17:04] VITALS: O2SAT 99
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
--- NOTE | 2020-07-04 17:27 | ED.DCSUM_ITS ---
- ER Visit Summary Date of Service: 07/04/20 Chief Complaint: Right lower rib cage pain and shortness of breath History of Present Illness: The patient is a 70 F G of residual disease and peritoneal dialysis, stroke, diabetes, asthma, prior PE and DVT on reportedly Eliquis. He states the last 3 to 4 days she has had right-sided chest pain hurts more to take a deep breath with mild shortness of breath. No hemoptysis. No fever. She was seen emergency department yesterday and extensive work-up which was basically unremarkable. Physical Examination: Older female no acute distress. Vital signs stable afebrile. Pulse ox 100% on room air no signs of hypoxia. HEENT exam unremark able. Neck nontender no lymphadenopathy. Lungs clear to auscultation bilaterally. Chest wall nontender. No tenderness to the rib cage no ecchymosis or bruising. No subcu air. No shingles. Abdomen soft nontender normal bowel sounds no peritoneal signs. Heart regular rhythm no murmur. She is moving all 4 extremities. Calves nontender without edema or cords. Back nontender. Neurologically she is awake alert. Test Results: Patient extensive work-up yesterday reviewed all those labs. There were basically nondiagnostic for complaint. Even though she is on Eliquis she is having pleuritic right-sided lower rib cage pain I am going obtain a CTA of her chest. Radiologist read the CTA is no acute finding. No PE. No dissection. I reviewed the film myself. Emergency Department Course and Treatment: CTA for right lower pleuritic rib cage chest pain. Repeat exam patient is doing well at 1829 and will be discharged home. Treatment Plan: Tylenol for pain. Follow-up with your doctor. Return if worse. Disposition: Discharge Impression: Right lower chest wall pleuritic chest pain of uncertain etiology This note was generated with [employer] dictation software. It may contain incorrect words, spelling, and punctuation that were not noted in review of the chart prior to signing ED Disposition - Plan for ED Patient: Referrals: Som Jha NP, SENIOR RESEARCH FELLOW-C [Primary Care Provider] -
[2020-07-04 18:00] VITALS: PULSE 60; RESP 22; O2SAT 100
--- NOTE | 2020-07-04 18:30 | ED.DEP ---
ED Disposition - Plan for ED Patient: Disposition: Home or Assisted Living Instructions: ED Chest Pain, Uncertain Cause Referrals: Som Jha NP, AUTOMATIC SHIRRING MACHINE OPERATOR-C [Primary Care Provider] - 3-5 Days if not improving Additional Instructions: Follow-up with your primary care provider if not improving. Tylenol and Motrin for pain.
[2020-07-04 18:50] VITALS: BP 100/80; PULSE 60; RESP 22; O2SAT 98
== END 2020-07-04 18:51 | disposition home or self-care (01) ==
PROVIDERS: Emergency Provider Emergency Medicine; PCP Nurse Practitioner Family
DX: R07.89 Other chest pain (principal); I12.0 Hypertensive chronic kidney disease with stage 5 chronic kidney disease or end stage renal disease; E11.22 Type 2 diabetes mellitus with diabetic chronic kidney disease; N18.6 End stage renal disease; D63.1 Anemia in chronic kidney disease; J45.909 Unspecified asthma, uncomplicated; B19.20 Unspecified viral hepatitis C without hepatic coma; Z86.711 Personal history of pulmonary embolism; Z86.718 Personal history of other venous thrombosis and embolism; Z99.2 Dependence on renal dialysis; Z79.01 Long term (current) use of anticoagulants; Z79.899 Other long term (current) drug therapy; Z72.0 Tobacco use
CPT/HCPCS: 71275; 99285; Q9967; A4216

== ENCOUNTER 2020-07-20 18:51 | Emergency (ER) | payer MEDICARE, MEDICAID, SELFPAY ==
[2020-07-20 18:52] VITALS: BP 180/125; PULSE 70; RESP 18; TEMP 37.2; O2SAT 100; BMI 21.8
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
[2020-07-20] MEDS: 0.9% Normal Saline 1,000 ML 1000 ML IV (20:26)
[2020-07-20] MEDS: Morphine 4 MG/ML Syringe IV (20:26)
[2020-07-20] MEDS: Ondansetron 4 MG/2 ML Vial IV (20:26)
[2020-07-20 20:31] LABS: Absolute Neutrophil Count 7.5 X10^3/uL (2.0-7.7); Basophil# 0.03 X10^3/uL; Basophil% 0.3 % (0-1); Eosinophils% 1.9 % (0-5); Hematocrit 28.4 % (37-47); Hemoglobin 9.5 g/dL (12.0-15.0); Lymphocyte % 18.4 % (19-41); Mean Corp Hgb Conc 33.5 g/dL (32-36); Mean Corpuscular Hgb 30.1 pg (27.0-32.0); Mean Corpuscular Volume 89.9 fL (81-99); Mean Platelet Vol. 9.1 fl (6.2-12.0); Monocyte# 0.68 X10^3/uL; Monocyte% 6.6 % (0-10); NRBC Flagged by Analyzer 0 % (0-5); Neutrophil # 7.47 X10^3/uL (2.7-7.7); Neutrophil % 72.4 % (47-70); Platelet Count 262 K/mm3 (150-450); RBC Distribution Width CV 13.7 % (11.6-14.6); Red Blood Count 3.16 M/mm3 (4.2-5.4); White Blood Count 10.3 K/mm3 (4.4-11.0)
[2020-07-20 21:05] LABS: ALB/GLOB Ratio 0.5 RATIO (0.9-2.4); AST(SGOT) 45 U/L (15-37); Alanine Aminotransfer ALT/SGPT 44 U/L (13-56); Albumin, Serum 2.1 g/dL (3.2-5.0); Alkaline Phosphatase 102 U/L (45-117); Anion Gap 5 (5-15); BUN 43 mg/dL (7-18); BUN/Creat Ratio 4.8 RATIO (10-20); Calcium,Total 8.4 mg/dL (8.5-10.1); Chloride 102 mmol/L (98-107); EST Glomerular Filtration Rate 5 mL/min (>60); Est Glom Filt Rate - Afr Amer 6 mL/min (>60); Estimated Creatinine Clearance 6.28 ml/min; Glucose 100 mg/dL (74-106); Lipase 182 U/L (73-393); Potassium 3.3 mmol/L (3.5-5.1); Protein, Total 6.1 g/dL (6.4-8.2); Sodium Level 136 mmol/L (136-145)
[2020-07-20 21:45] VITALS: BP 143/77; PULSE 56; RESP 16; O2SAT 100
[2020-07-20 23:20] LABS: Creatinine, Serum 8.96 mg/dL (0.55-1.02)
== END 2020-07-20 21:46 | disposition home or self-care (01) ==
PROVIDERS: Emergency Provider Emergency Medicine; PCP Nurse Practitioner Family
DX: R10.11 Right upper quadrant pain (principal); R11.0 Nausea; R16.0 Hepatomegaly, not elsewhere classified; I12.0 Hypertensive chronic kidney disease with stage 5 chronic kidney disease or end stage renal disease; N18.6 End stage renal disease; E11.22 Type 2 diabetes mellitus with diabetic chronic kidney disease; E78.5 Hyperlipidemia, unspecified; F17.200 Nicotine dependence, unspecified, uncomplicated; Z99.2 Dependence on renal dialysis; Z90.49 Acquired absence of other specified parts of digestive tract; Z79.01 Long term (current) use of anticoagulants; Z79.899 Other long term (current) drug therapy
CPT/HCPCS: 74176; 80053; 83690; 85025; 96361; 96374; 96375; 99285; J7030; J2405

== ENCOUNTER 2020-08-28 23:20 | Emergency (ER) | payer MEDICARE, MEDICAID, SELFPAY ==
[2020-08-28 23:21] VITALS: BP 94/81; PULSE 61; RESP 20; TEMP 35.9; O2SAT 99; BMI 24.0
--- NOTE | 2020-08-28 23:26 | CT_ITS ---
STUDY: CT ABDOMEN AND PELVIS WITHOUT CONTRAST REASON FOR EXAM: Female, 70 years old patient with right sided abdominal pain, nausea, and endstage renal disease (ESRD). RADIATION DOSAGE (If Supplied By Facility): CTDIvol = ( 7.93 ) mGy, DLP = ( 376.20 ) mGycm TECHNIQUE: Transaxial images were obtained from the dome of the diaphragm to the symphysis pubis without oral contrast, and without intravenous contrast. Sagittal and coronal images were reconstructed. Individualized dose optimization techniques were used for this CT. COMPARISON: CT abdomen and pelvis dated 07/03/2020. FINDINGS: The visualized lung bases are unremarkable. The visualized portions of the heart are within normal limits. Normal liver. There is persistent hypodense mass within the right lobe of liver measuring 3 cm in greatest dimension. This is unchanged since the previous study. Normal spleen. Normal pancreas. Normal bilateral adrenal glands. There is mild cortical atrophy of the right kidney, consistent with chronic medical renal disease. There is mild cortical atrophy of the left kidney, consistent with chronic medical renal disease. Normal visualized stomach. There is a moderate amount of ascites throughout the abdomen and pelvis. There is no obvious dilated bowel or pneumoperitoneum. The catheter is visible within the pelvis probably secondary to peritoneal dialysis. Stool and/or contrast is visible within the colon with scattered diverticula. The appendix is visualized and appears normal. There may be some enteric contrast within the appendix. There is multifocal atherosclerotic calcification of the abdominal aorta, without a demonstrated aneurysm. There is an IVC filter in place. Several prongs of the filter beyond the IVC. Normal retroperitoneum. The urinary bladder is nondistended. Pelvic anatomy is obscured by beam hardening and streak artifact from bilateral hip prostheses. Normal abdominal wall. The bones appear osteopenic. The patient has had bilateral total hip arthroplasties. CT/Abdomen/Pelvis without Cont IMPRESSION: 1. Ascites. This may be in part secondary to peritoneal dialysis. 2. Unchanged appearance to liver mass. Electronically Signed: Mery Kumar MD at 0:58 EST , Service support ,
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
[2020-08-28] MEDS: Morphine 4 MG/ML Syringe IV (23:40)
[2020-08-28] MEDS: Dicyclomine 20 MG/2 ML Vial IM (23:40)
[2020-08-28] MEDS: Ondansetron 4 MG/2 ML Vial IV (23:40)
[2020-08-28 23:41] VITALS: BP 108/75
[2020-08-28 23:44] LABS: Absolute Lymphocyte Count 3.74 X10^3/uL (0.83-4.51); Absolute Neutrophil Count 6.8 X10^3/uL (2.0-7.7); Basophil# 0.04 X10^3/uL; Basophil% 0.3 % (0-1); Eosinophil# 0.27 X10^3/uL; Eosinophils% 2.3 % (0-5); Lymphocyte # 3.74 X10^3/ul (4.0); Mean Corp Hgb Conc 32.3 g/dL (32-36); Mean Corpuscular Hgb 29.9 pg (27.0-32.0); Mean Corpuscular Volume 92.8 fL (81-99); Mean Platelet Vol. 9.2 fl (6.2-12.0); NRBC Flagged by Analyzer 0 % (0-5); Neutrophil # 6.84 X10^3/uL (2.7-7.7); Neutrophil % 58.5 % (47-70); Platelet Count 306 K/mm3 (150-450); RBC Distribution Width CV 13.6 % (11.6-14.6); RBC Distribution Width SD 46.5 fl (35.1-43.9); Red Blood Count 3.34 M/mm3 (4.2-5.4); White Blood Count 11.7 K/mm3 (4.4-11.0)
[2020-08-29 00:11] LABS: ALB/GLOB Ratio 0.6 RATIO (0.9-2.4); AST(SGOT) 22 U/L (15-37); Alanine Aminotransfer ALT/SGPT 24 U/L (13-56); Albumin, Serum 2.4 g/dL (3.2-5.0); Alkaline Phosphatase 103 U/L (45-117); Anion Gap 11 (5-15); BUN 71 mg/dL (7-18); BUN/Creat Ratio 7.9 RATIO (10-20); Calcium,Total 8.9 mg/dL (8.5-10.1); Chloride 97 mmol/L (98-107); Creatinine, Serum 8.99 mg/dL (0.55-1.02); EST Glomerular Filtration Rate 5 mL/min (>60); Est Glom Filt Rate - Afr Amer 6 mL/min (>60); Estimated Creatinine Clearance 5.61 ml/min; Globulin 4.3 g/dL (2.2-4.2); Glucose 174 mg/dL (74-106); Lipase 267 U/L (73-393); Potassium 2.7 mmol/L (3.5-5.1); Protein, Total 6.7 g/dL (6.4-8.2); Sodium Level 136 mmol/L (136-145)
[2020-08-29] MEDS: Potassium Chloride 10mEq/100mL 10 MEQ/100 ML IV.SOLN. 100 MEQ IV BOLUS (00:59)
--- NOTE | 2020-08-29 01:39 | ED.RN ---
PT not tolerating potassium infusion even slowed down and diluted. Attempting new IV, small gauge in bigger vein for potassium comfort.
[2020-08-29 01:58] VITALS: BP 144/69; PULSE 56; RESP 16; O2SAT 100
[2020-08-29 03:31] LABS: Magnesium 1.8 mg/dL (1.6-2.6)
[2020-08-29 04:16] LABS: Potassium 3.2 mmol/L (3.5-5.1)
[2020-08-29 04:33] VITALS: BP 97/60; PULSE 56; RESP 16; O2SAT 98
== END 2020-08-29 04:35 | disposition home or self-care (01) ==
PROVIDERS: Emergency Provider Emergency Medicine; PCP Nurse Practitioner Family
DX: R10.11 Right upper quadrant pain (principal); R10.31 Right lower quadrant pain; E87.6 Hypokalemia; I12.0 Hypertensive chronic kidney disease with stage 5 chronic kidney disease or end stage renal disease; E11.22 Type 2 diabetes mellitus with diabetic chronic kidney disease; N18.6 End stage renal disease; Z99.2 Dependence on renal dialysis; E78.5 Hyperlipidemia, unspecified; K21.9 Gastro-esophageal reflux disease without esophagitis; F32.9 Major depressive disorder, single episode, unspecified; F41.9 Anxiety disorder, unspecified; F17.200 Nicotine dependence, unspecified, uncomplicated; J45.909 Unspecified asthma, uncomplicated; Z79.01 Long term (current) use of anticoagulants; Z79.899 Other long term (current) drug therapy; Z86.718 Personal history of other venous thrombosis and embolism; Z86.73 Personal history of transient ischemic attack (TIA), and cerebral infarction without residual deficits
CPT/HCPCS: 36415; 74176; 80053; 83690; 83735; 84132; 85025; 96365; 96366; 96372; 96375; 99285; J7030; A4216; J2405

== ENCOUNTER 2020-09-14 11:12 | Observation (INO) | payer MEDICARE, MEDICAID, SELFPAY ==
[2020-09-14 11:16] VITALS: BP 113/69; PULSE 64; RESP 18; TEMP 36.3; O2SAT 100; BMI 21.9
--- NOTE | 2020-09-14 11:26 | CT_ITS ---
STUDY: CT BRAIN WITHOUT CONTRAST REASON FOR EXAM: Female, 70 years old. Head injury RADIATION DOSAGE (If Supplied By Facility): CTDIvol = ( 44.99 ) mGy, DLP = ( 812.98 ) mGycm TECHNIQUE: Transaxial CT imaging of the brain was performed without administration of intravenous contrast material. Individualized dose optimization techniques were used for this CT. COMPARISON: Comparison is made with prior study 02/12/2020. FINDINGS: Normal soft tissue structures. There is hyperostosis frontalis internus. There is mild cerebral atrophy with widening of the extra-axial spaces and ventricular dilatation. There are areas of decreased attenuation within the white matter tracts of the supratentorial brain, consistent with microvascular disease changes. There are small punctate calcifications of the basal ganglia which are seen in the aging brain as a normal variant. Normal brainstem. Normal cerebellum. There is no intracranial hemorrhage. There are no findings of an acute ischemic infarction. Normal visualized paranasal sinuses. CT/Brain/Head without Contrast IMPRESSION: Chronic involutional changes of the brain. Electronically Signed: Lopez Barraza MD at 12:22 EDT , Service support ,
--- NOTE | 2020-09-14 11:26 | EKG12_ITS ---
Test Reason : ABD PAIN Blood Pressure : / mmHG Vent. Rate : 066 BPM Atrial Rate : 234 BPM P-R Int : 000 ms QRS Dur : 090 ms QT Int : 462 ms P-R-T Axes : 000 -08 050 degrees QTc Int : 484 ms Atrial fibrillation Abnormal ECG Confirmed by TERE LEMON, JAN ([id number]), writer editor BIRDIE TORRES ([id number]) on 09/16/2020 12:52:54 PM Referred By: RU Confirmed By:JAN CARRANZA MD
--- NOTE | 2020-09-14 11:28 | RAD_ITS ---
STUDY: X-RAY - LUMBAR SPINE REASON FOR EXAM: Female, 70 years old. Fall TECHNIQUE: 3 view(s) of the lumbar spine were obtained. COMPARISON: None FINDINGS: Normal lumbar lordosis. There is no substantial scoliosis. There is a normal alignment of the vertebrae. There is multilevel endplate spondylosis of the lumbar vertebrae. There is multi-level degenerative disc disease with multi-level disc space narrowing. There is atherosclerotic calcification of the abdominal aorta without a demonstrated aneurysm. A filter is seen within the inferior vena cava. Status post bilateral hip replacement. A catheter is seen overlying the pelvis most likely representing peritoneal dialysis catheter. RAD/Lumbar Spine 2 or 3 Views IMPRESSION: Degenerative changes of the spine, as detailed above. Electronically Signed: Lopez Barraza MD at 12:58 EDT , Service support ,
--- NOTE | 2020-09-14 11:28 | RAD_ITS ---
STUDY: X-RAY - CERVICAL SPINE REASON FOR EXAM: Female, 70 years old. Fall TECHNIQUE: 4 view(s) of the cervical spine were obtained. COMPARISON: None FINDINGS: There are degenerative changes of the anterior atlantoaxial articulation. Normal odontoid process. Normal cervical lordosis. Mild anterior spondylosis at the C3-C4 C4-C5 and C5-C6 levels. Mild degree of disc space narrowing. Normal visualized intervertebral neuroforamina. There are atherosclerotic vascular calcifications of the carotid arteries. RAD/Cerv Spine 2 or 3 Views IMPRESSION: Mild degree of the anterior spondylosis and disc space narrowing. Electronically Signed: Lopez Barraza MD at 12:57 EDT , Service support ,
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
--- NOTE | 2020-09-14 11:29 | ED.VISSUMM ---
- ER Visit Summary Date of Service: 09/14/20 Chief Complaint: [Fall] History of Present Illness: The patient is a 70 F [presents to the emergency department with a fall that occurred early this morning. Patient states that she had gotten up to use the restroom when she just felt weak and fell and landed on her right hip. Patient is unsure if she hit her head. Patient complaining of intermittent head pain as well as right and left hip pain. Patient states that this morning she sat on the toilet and became acutely weak and had a hard time getting up off the toilet. Her son helped her back into bed and called EMS. Patient describes some soreness in her neck. She complains of intermittent head pain. Patient complains of pain in her low back. Patient does have history of end-stage renal disease and is on peritoneal dialysis and she last did her dialysis last evening around 8 PM. Patient has history of prior stroke as well as diabetes, hypertension, high cholesterol, asthma, and history of DVT. Patient is on Eliquis. Patient continues to smoke.] Physical Examination: [HEENT-PERRLA, EOMI. Cranial nerves II through XII grossly intact. TMs clear. Mucous membranes moist. No adenopathy. No external evidence of trauma to her head. Mild diffuse C-spine tenderness on palpation. No bony step-offs noted. Cardiovascular-regular rate and rhythm without murmur or ectopy Lungs-clear to auscultation, chest wall stable without crepitus or subcu emphysema Abdomen-normoactive bowel sounds, soft, nontender, no rebound or rigidity, no peritoneal signs. Back exam-patient has diffuse tenderness to the lumbar spine. There is no tenderness over the thoracic spine. Patient has negative straight leg raising bilaterally. Deep tendon reflexes are plus 2 out of 4 bilaterally at the patella and Achilles. Patient has normal 5 extension bilaterally. I do not appreciate any significant ecchymosis or bruising noted to her back. Extremities-intact ?4, normal range of motion, normal pulses. Patient has diffuse tenderness palpation over the right and left hips. There is no external rotation noted or shortening of the extremities noted. She is neurovascular intact distally. Test Results: [EKG obtained on arrival shows sinus rhythm with a ventricular rate of 66 bpm with occasional PACs noted. Computer read the EKG is A. fib but I believe it sinus. CBC with differential obtained showed a white count 9.0, hemoglobin 10, hematocrit 32, platelets 262. Chemistries show sodium 131, potassium 2.9, chloride 92, CO2 28, BUN 72, creatinine 8.53, glucose 133. LFTs were normal. Troponin was less than 0.015. CT scan of the brain without contrast obtained showed chronic involutional changes. Chest x-ray 1 view interpreted by myself as no acute disease process and radiology in agreement. X-rays of the lumbar spine 3 views obtained interpreted by myself as degenerative changes radiology in agreement. X-rays of bilateral hips and pelvis 2 views obtained interpreted by myself as no acute fractures or dislocations with no evidence of abnormality to bilateral prosthesis and total hip replacements and radiology in agreement.] Emergency Department Course and Treatment: [IV line established on arrival. Patient placed on a playground monitor. We attempted to ambulate the patient in the department however she is having too much discomfort in the right leg and requiring 2 people to assist her.] Treatment Plan: [Admit] Disposition: [Admit] Impression: [Fall Right hip contusion Inability to ambulate Chronic renal failure Hypokalemia] This note was generated with [employer] dictation software. It may contain incorrect words, spelling, and punctuation that were not noted in review of the chart prior to signing ED Disposition - Plan for ED Patient: Referrals: Som Jha NP, [employer] [Primary Care Provider] -
[2020-09-14] MEDS: 0.9% Normal Saline 1,000 ML 150 ML IV ×2 (11:46→15:52)
[2020-09-14 11:53] LABS: Absolute Lymphocyte Count 1.23 X10^3/uL (0.83-4.51); Absolute Neutrophil Count 7.1 X10^3/uL (2.0-7.7); Basophil# 0.04 X10^3/uL; Basophil% 0.4 % (0-1); Eosinophil# 0.15 X10^3/uL; Eosinophils% 1.7 % (0-5); Hematocrit 32.3 % (37-47); Hemoglobin 10.2 g/dL (12.0-15.0); Lymphocyte # 1.23 X10^3/ul (4.0); Lymphocyte % 13.7 % (19-41); Mean Corp Hgb Conc 31.6 g/dL (32-36); Mean Corpuscular Hgb 30.1 pg (27.0-32.0); Mean Corpuscular Volume 95.3 fL (81-99); Mean Platelet Vol. 9.2 fl (6.2-12.0); Monocyte# 0.46 X10^3/uL; Monocyte% 5.1 % (0-10); NRBC Flagged by Analyzer 0 % (0-5); Neutrophil # 7.08 X10^3/uL (2.7-7.7); Neutrophil % 78.7 % (47-70); Platelet Count 262 K/mm3 (150-450); RBC Distribution Width CV 13.6 % (11.6-14.6); RBC Distribution Width SD 47.4 fl (35.1-43.9); Red Blood Count 3.39 M/mm3 (4.2-5.4)
[2020-09-14 12:16] LABS: ALB/GLOB Ratio 0.5 RATIO (0.9-2.4); AST(SGOT) 32 U/L (15-37); Alanine Aminotransfer ALT/SGPT 31 U/L (13-56); Albumin, Serum 2.5 g/dL (3.2-5.0); Alkaline Phosphatase 110 U/L (45-117); Anion Gap 11 (5-15); BUN 72 mg/dL (7-18); BUN/Creat Ratio 8.4 RATIO (10-20); Chloride 92 mmol/L (98-107); Creatinine, Serum 8.53 mg/dL (0.55-1.02); EST Glomerular Filtration Rate 5 mL/min (>60); Est Glom Filt Rate - Afr Amer 6 mL/min (>60); Globulin 4.6 g/dL (2.2-4.2); Glucose 133 mg/dL (74-106); Potassium 2.9 mmol/L (3.5-5.1); Protein, Total 7.1 g/dL (6.4-8.2); Sodium Level 131 mmol/L (136-145)
[2020-09-14] MEDS: Potassium Chloride Oral Tablet 20 MEQ 40 MEQ PO ×2 (12:41→16:02)
[2020-09-14 13:23] VITALS: BP 131/79; PULSE 65; RESP 17; TEMP 36.3; O2SAT 100
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
[2020-09-14] MEDS: Acetaminophen 325 MG Tablet 650 MG PO ×2 (13:36→19:49)
[2020-09-14 14:08] VITALS: BMI 21.9
[2020-09-14 14:15] VITALS: BP 127/70; PULSE 69; RESP 16; TEMP 36.1; O2SAT 100
[2020-09-14 14:22] LABS: Magnesium 1.8 mg/dL (1.6-2.6)
[2020-09-14 14:44] LABS: Hemoglobin A1c 4.5 % (3.8-5.6)
[2020-09-14 14:46] LABS: Bedside Glucose 89 mg/dL (70-110)
[2020-09-14] MEDS: 0.9% Saline Lock 10 ML Syringe IV (15:52)
[2020-09-14] MEDS: Dicyclomine 10 MG Capsule 20 MG PO ×2 (16:00→22:16)
--- NOTE | 2020-09-14 19:07 | DIALYSIS ---
CAPD initiated. 6 exchanges with 1.5 dextrose.2000ml fill. See orders.
[2020-09-14 19:32] VITALS: PULSE 73
[2020-09-14] MEDS: 0.9% Normal Saline 1,000 ML 75 ML IV (19:59)
[2020-09-14 20:15] VITALS: BP 138/72; PULSE 69; RESP 18; TEMP 36.7; O2SAT 100
[2020-09-14 22:15] LABS: Bedside Glucose 108 mg/dL (70-110)
[2020-09-14] MEDS: APIXABAN 2.5 MG TABLET PO (22:16)
[2020-09-14] MEDS: Mirtazapine 15 MG Tablet 45 MG PO (22:16)
[2020-09-14] MEDS: Rizatriptan Benzoate 10 MG Tablet PO (22:35)
[2020-09-14 23:59] VITALS: PULSE 71
[2020-09-15] VITALS (12 sets, daily range): BP systolic 109–151; BP diastolic 62–76; PULSE 60–75; RESP 14–18; TEMP 36.5–36.8; O2SAT 99–100
[2020-09-15 05:16] LABS: Absolute Neutrophil Count 4.3 X10^3/uL (2.0-7.7); Basophil# 0.03 X10^3/uL; Basophil% 0.4 % (0-1); Eosinophil# 0.17 X10^3/uL; Eosinophils% 2.5 % (0-5); Hematocrit 26.5 % (37-47); Hemoglobin 8.4 g/dL (12.0-15.0); Lymphocyte % 25.4 % (19-41); Mean Corp Hgb Conc 31.7 g/dL (32-36); Mean Corpuscular Hgb 30.1 pg (27.0-32.0); Mean Platelet Vol. 9.6 fl (6.2-12.0); Monocyte# 0.45 X10^3/uL; Monocyte% 6.7 % (0-10); NRBC Flagged by Analyzer 0 % (0-5); Neutrophil % 64.6 % (47-70); Platelet Count 235 K/mm3 (150-450); RBC Distribution Width CV 13.4 % (11.6-14.6); RBC Distribution Width SD 47.1 fl (35.1-43.9); Red Blood Count 2.79 M/mm3 (4.2-5.4); White Blood Count 6.7 K/mm3 (4.4-11.0)
[2020-09-15 05:36] LABS: ALB/GLOB Ratio 0.6 RATIO (0.9-2.4); AST(SGOT) 22 U/L (15-37); Alanine Aminotransfer ALT/SGPT 23 U/L (13-56); Alkaline Phosphatase 90 U/L (45-117); Anion Gap 8 (5-15); BUN 66 mg/dL (7-18); BUN/Creat Ratio 8.1 RATIO (10-20); Chloride 98 mmol/L (98-107); Cholesterol 130 mg/dL (200); Creatinine, Serum 8.16 mg/dL (0.55-1.02); EST Glomerular Filtration Rate 5 mL/min (>60); Est Glom Filt Rate - Afr Amer 6 mL/min (>60); Globulin 3.5 g/dL (2.2-4.2); Glucose 93 mg/dL (74-106); High Density Lipoprotein 49 mg/dL; Potassium 2.9 mmol/L (3.5-5.1); Protein, Total 5.5 g/dL (6.4-8.2); Sodium Level 132 mmol/L (136-145); Triglycerides 91 mg/dL; Very Low Density Lipoprotein 18 mg/dL (5-40)
--- NOTE | 2020-09-15 06:35 | NURSING ---
called down breakfast order for pt
[2020-09-15 06:45] LABS: Bedside Glucose 88 mg/dL (70-110)
[2020-09-15] MEDS: Dicyclomine 10 MG Capsule 20 MG PO ×3 (06:48→20:47)
[2020-09-15 07:41] LABS: Phosphorus 3.7 mg/dL (2.5-4.9)
--- NOTE | 2020-09-15 08:16 | DIALYSIS ---
PD treatment complete with 258ml fluid removed from pt. PD catheter dressing is clean and dry. Effluent is clear with no fibrin noted. Pt awake and alert, tolerated treatment without difficulty. Report given to Joshua PAREDES.
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
[2020-09-15] MEDS: Pantoprazole Sodium 40 MG Tablet PO (09:18)
[2020-09-15] MEDS: Cinacalcet HCl 30 MG Tablet PO (09:19)
[2020-09-15] MEDS: DULoxetine Hcl 30 MG Capsule PO (09:19)
[2020-09-15] MEDS: APIXABAN 2.5 MG TABLET PO ×2 (09:19→20:47)
[2020-09-15] MEDS: Acetaminophen 325 MG Tablet 650 MG PO (09:23)
[2020-09-15] MEDS: Potassium Chloride Oral Tablet 20 MEQ 60 MEQ PO (09:23)
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
[2020-09-15] MEDS: oxyCODONE 5 MG Tablet PO ×2 (09:37→19:04)
--- NOTE | 2020-09-15 10:20 | CASEMGMT ---
SW is anticipating patient will need placement at discharge. Patient is on Peritoneal Dialysis (PD). SW placed calls to all the facilities that are in network with patient's insurance to see if they take patients on PD. Out of the 9 in network facilities so far only 1 indicates they would consider taking a patient on PD, [facility]. SW is waiting on return calls from 2 other facilities, [facility] and [facility]. Await return calls from those 2 facilities and then SW will talk with patient. Evy GONZALEZ MSW
[2020-09-15] MEDS: Atenolol 25 MG Tablet PO (10:56)
--- NOTE | 2020-09-15 11:01 | CASEMGMT ---
MARIA GUADALUPE went to patient's room. Introduced self and role at [facility]. MARIA GUADALUPE asked patient if she was planning on going somewhere for rehab at discharge. She said she did not know. MARIA GUADALUPE asked if it was okay for SW to call her son and she said that would be fine. Her cell phone rang so SW handed her her phone and left the room. Evy GONZALEZ MSW
[2020-09-15 11:06] LABS: Bedside Glucose 109 mg/dL (70-110)
--- NOTE | 2020-09-15 12:01 | CASEMGMT ---
Patient's son arrived at [facility]. SW went to the room. Introduced self and role at [facility]. SW asked if he knew about the discharge plan. He said he was not sure yet. SW went over some options including SNF and home health. SW did tell him if they decide to go with correction facility short term their options are limited as most of the nursing homes do not take patients on Peritoneal Dialysis. MARIA GUADALUPE explained SW called all of the local facilities that are in network with her insurance and only 1 does PD for sure and 1 would consider it. MARIA GUADALUPE told him [facility] in [place] does take PD and [facility] would consider it. MARIA GUADALUPE is waiting on a return call from another facility. MARIA GUADALUPE told him we will continue to follow and assist with discharge planning. Evy GONZALEZ MSW
[2020-09-15] MEDS: hydrALAZINE 50 MG Tablet 100 MG PO ×2 (13:55→20:47)
[2020-09-15 14:36] LABS: Potassium 3.7 mmol/L (3.5-5.1)
--- NOTE | 2020-09-15 14:50 | CASEMGMT ---
Per Gladis at [facility], PD is set up through them. Leonides PAREDES CM
--- NOTE | 2020-09-15 15:03 | NURSING ---
RNMITA RED Note: This contract technical writer went to patient bedside, explained and reviewed RED form with patient in regards to current treatment this hospital stay. Informed outpatient billing is determined by her insurance company and continual review is conducted to determine any changes in condition that may warrant inpatient stay. Patient states understanding and denies any questions with RED form. RED form signed by patient and original copy placed in patient hard chart, patient provided a copy. Patient is a Code 44, treating physician malorie. RACHID Arroyo
--- NOTE | 2020-09-15 18:55 | DIALYSIS ---
CCPD tx initiated using aseptic technique. Using 2 bags of 1.5% dextrose solution. Dressing changed. No problems noted. Not enough effluent drainage to evaluate upon initiation. Report was given to REGGIE Lewis.
[2020-09-15] MEDS: Mirtazapine 15 MG Tablet 45 MG PO (20:48)
[2020-09-15] MEDS: Senna/Docusate Sodium 1 Tablet 2 TABLET PO (20:50)
[2020-09-16] VITALS (12 sets, daily range): BP systolic 91–138; BP diastolic 57–87; PULSE 60–70; RESP 16; TEMP 36.3–37; O2SAT 94–100
[2020-09-16] MEDS: Dicyclomine 10 MG Capsule 20 MG PO ×3 (05:24→21:47)
--- NOTE | 2020-09-16 07:44 | DIALYSIS ---
CCPD complete. Net UF [id number]. SEE DIALYSIS FLOW SHEET. Dressing dry and intact. Tolerated well.
[2020-09-16 08:32] LABS: Absolute Neutrophil Count 3.8 X10^3/uL (2.0-7.7); Basophil# 0.04 X10^3/uL; Basophil% 0.6 % (0-1); Eosinophil# 0.18 X10^3/uL; Eosinophils% 2.9 % (0-5); Hematocrit 27.3 % (37-47); Hemoglobin 8.8 g/dL (12.0-15.0); Lymphocyte % 25.7 % (19-41); Mean Corp Hgb Conc 32.2 g/dL (32-36); Mean Corpuscular Hgb 30.6 pg (27.0-32.0); Mean Corpuscular Volume 94.8 fL (81-99); Mean Platelet Vol. 9.3 fl (6.2-12.0); Monocyte% 9.6 % (0-10); NRBC Flagged by Analyzer 0 % (0-5); Neutrophil # 3.78 X10^3/uL (2.7-7.7); Neutrophil % 60.7 % (47-70); Platelet Count 240 K/mm3 (150-450); RBC Distribution Width CV 13.2 % (11.6-14.6); RBC Distribution Width SD 46.1 fl (35.1-43.9); Red Blood Count 2.88 M/mm3 (4.2-5.4); White Blood Count 6.2 K/mm3 (4.4-11.0)
[2020-09-16 09:02] LABS: Anion Gap 8 (5-15); BUN 63 mg/dL (7-18); BUN/Creat Ratio 8.3 RATIO (10-20); Calcium,Total 7.9 mg/dL (8.5-10.1); Chloride 97 mmol/L (98-107); Creatinine, Serum 7.55 mg/dL (0.55-1.02); EST Glomerular Filtration Rate 6 mL/min (>60); Est Glom Filt Rate - Afr Amer 7 mL/min (>60); Estimated Creatinine Clearance 7.45 ml/min; Glucose 76 mg/dL (74-106); Potassium 3.5 mmol/L (3.5-5.1); Sodium Level 131 mmol/L (136-145)
[2020-09-16] MEDS: Atenolol 25 MG Tablet PO (09:10)
[2020-09-16] MEDS: APIXABAN 2.5 MG TABLET PO ×2 (09:10→21:47)
[2020-09-16] MEDS: DULoxetine Hcl 30 MG Capsule PO (09:10)
[2020-09-16] MEDS: Cinacalcet HCl 30 MG Tablet PO (09:10)
[2020-09-16] MEDS: Pantoprazole Sodium 40 MG Tablet PO (09:10)
--- NOTE | 2020-09-16 09:18 | CASEMGMT ---
SW spoke with patient regarding her discharge plan. She said she would go to a SNF as long as it is in Tank. Unfortunately that leaves her with 1 option, [facility]. SW told her SW will work on referral. SW did talk with [facility] yesterday and they would consider someone on Peritoneal Dialysis. SW called [facility] with referral and also faxed referral. Plan: [facility] pending their acceptance and insurance approval. Evy GONZALEZ MSW
[2020-09-16] MEDS: oxyCODONE 5 MG Tablet PO ×3 (09:25→21:45)
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
[2020-09-16] MEDS: Potassium Chloride Oral Tablet 20 MEQ 40 MEQ PO (10:24)
--- NOTE | 2020-09-16 10:46 | CASEMGMT ---
SW received a call from Dang at [facility]. She said they got word that patient is looking to go to [facility] with her Peritoneal Dialysis. She said she will work on setting up a training. Evy JIMENEZ
[2020-09-16] MEDS: hydrALAZINE 50 MG Tablet 100 MG PO ×2 (14:14→21:46)
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
--- NOTE | 2020-09-16 16:00 | CASEMGMT ---
MARIA GUADALUPE received a call from Pat with [facility]. She was able to arrange training for [facility] staff for tomorrow at 2p. She asked that SW update her when patient goes to [facility]. Her work cell number is [phone]. She said they have spoken to Dr Sears and he is okay if her schedule has to change while she is at [facility]. Patient's son is taking patient's equipment to [facility]. MARIA GUADALUPE then received a call from Hawa with [facility] and she said that the training is tomorrow at 2p and they should be able to admit patient tomorrow evening. MARIA GUADALUPE was not able to update patient due to not having enough time. SW will update patient in am. Plan: [facility] Sunday late afternoon/ evening after Peritoneal Dialysis training with [facility] is completed at 2p Sunday. Evy GONZALEZ MSW
--- NOTE | 2020-09-16 19:28 | DIALYSIS ---
[facility] STARTED PER ORDER.Dressing changed, Site clear no drainage
[2020-09-16] MEDS: Senna/Docusate Sodium 1 Tablet 2 TABLET PO (21:46)
[2020-09-16] MEDS: Mirtazapine 15 MG Tablet 45 MG PO (21:46)
[2020-09-17] VITALS (10 sets, daily range): BP systolic 91–144; BP diastolic 49–71; PULSE 61–69; RESP 16–18; TEMP 35.7–36.9; O2SAT 98–99
[2020-09-17 05:14] LABS: Albumin, Serum 1.9 g/dL (3.2-5.0); BUN 64 mg/dL (7-18); BUN/Creat Ratio 8.9 RATIO (10-20); Calcium,Total 7.6 mg/dL (8.5-10.1); Chloride 97 mmol/L (98-107); Creatinine, Serum 7.19 mg/dL (0.55-1.02); EST Glomerular Filtration Rate 6 mL/min (>60); Est Glom Filt Rate - Afr Amer 7 mL/min (>60); Estimated Creatinine Clearance 7.83 ml/min; Glucose 89 mg/dL (74-106); Magnesium 1.3 mg/dL (1.6-2.6); Phosphorus 4.1 mg/dL (2.5-4.9); Potassium 4.2 mmol/L (3.5-5.1); Sodium Level 132 mmol/L (136-145)
[2020-09-17] MEDS: Dicyclomine 10 MG Capsule 20 MG PO ×3 (05:20→20:35)
[2020-09-17] MEDS: hydrALAZINE 50 MG Tablet 100 MG PO ×2 (05:20→20:35)
[2020-09-17] MEDS: oxyCODONE 5 MG Tablet PO (06:48)
--- NOTE | 2020-09-17 08:01 | DIALYSIS ---
[facility] completed using all 1.5 % bags. Fluid removed was 535 ml. Dressing change done, site benign.
[2020-09-17] MEDS: Cinacalcet HCl 30 MG Tablet PO (08:27)
[2020-09-17] MEDS: APIXABAN 2.5 MG TABLET PO ×2 (08:27→20:35)
[2020-09-17] MEDS: Atenolol 25 MG Tablet PO (08:27)
[2020-09-17] MEDS: DULoxetine Hcl 30 MG Capsule PO (08:27)
[2020-09-17] MEDS: Pantoprazole Sodium 40 MG Tablet PO (08:27)
--- NOTE | 2020-09-17 09:35 | CASEMGMT ---
MARIA GUADALUPE spoke with Hawa from [facility] and she said the training is set for 2p and it takes 4 hours. Patient can come after that. She started her pre-cert this am. Plan: d/c to [facility] pending pre-cert and [facility] Peritoneal Dialysis training. Evy GONZALEZ MSW
[2020-09-17] MEDS: Magnesium Sulfate 4gm/100mL 4 GM/100 ML IV.SOLN. IV (09:48)
[2020-09-17] MEDS: Senna/Docusate Sodium 1 Tablet 2 TABLET PO ×2 (09:54→20:40)
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
--- NOTE | 2020-09-17 12:23 | CASEMGMT ---
Addendum entered by Evy Paredes 09/17/20 14:29: SW updated patient's son regarding plan as well as patient. Both were in agreement with plan. Evy JIMENEZ Original Note: SW received a call from Hawa at [facility]. There has been a change in plans. Due to unplanned lack of staffing today at [facility] Peritoneal Dialysis (PD) training cannot take place. The training will have to wait until Sunday. SW will talk with patient and let her know this information. Patient's son was notified when he arrived at [facility] with patient's PD equipment. Patient did not do well with therapy today so she will likely be here until Sunday. Plan: d/c to [facility] pending [facility] staff being trained on PD which will now occur on Sunday09-20-20 in the am. Evy JIMENEZ
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
[2020-09-17] MEDS: Mirtazapine 15 MG Tablet 45 MG PO (20:35)
[2020-09-18] VITALS (13 sets, daily range): BP systolic 99–136; BP diastolic 52–70; PULSE 61–76; RESP 16–18; TEMP 36.4–36.9; O2SAT 98–100
[2020-09-18] MEDS: Dicyclomine 10 MG Capsule 20 MG PO ×3 (05:54→20:36)
[2020-09-18] MEDS: hydrALAZINE 50 MG Tablet 100 MG PO ×3 (05:54→20:36)
--- NOTE | 2020-09-18 07:52 | DIALYSIS ---
CCPD complete. Patient disconnected from PD cycler using aseptic technique. Net fluid removed = 485 ml. Effluent fluid clear, pale yellow, no fibrin observed. LLQ PD catheter dressing changed per protocol. Site benign. Patient denies pain or tenderness. Report given to primary RN, Emilia Nagel.
[2020-09-18] MEDS: Senna/Docusate Sodium 1 Tablet 2 TABLET PO ×2 (09:03→20:38)
[2020-09-18] MEDS: DULoxetine Hcl 30 MG Capsule PO (09:04)
[2020-09-18] MEDS: Atenolol 25 MG Tablet PO (09:05)
[2020-09-18] MEDS: Cinacalcet HCl 30 MG Tablet PO (09:05)
[2020-09-18] MEDS: APIXABAN 2.5 MG TABLET PO ×2 (09:05→20:36)
[2020-09-18] MEDS: Pantoprazole Sodium 40 MG Tablet PO (09:05)
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
[2020-09-18] MEDS: Polyethylene Glycol 3350 17 GM PACKET PO (13:47)
[2020-09-18 14:14] LABS: ALB/GLOB Ratio 0.5 RATIO (0.9-2.4); AST(SGOT) 27 U/L (15-37); Alanine Aminotransfer ALT/SGPT 30 U/L (13-56); Alkaline Phosphatase 98 U/L (45-117); Anion Gap 8 (5-15); BUN 66 mg/dL (7-18); BUN/Creat Ratio 9.2 RATIO (10-20); Calcium,Total 7.9 mg/dL (8.5-10.1); Chloride 99 mmol/L (98-107); Creatinine, Serum 7.19 mg/dL (0.55-1.02); EST Glomerular Filtration Rate 6 mL/min (>60); Est Glom Filt Rate - Afr Amer 7 mL/min (>60); Estimated Creatinine Clearance 7.83 ml/min; Globulin 3.8 g/dL (2.2-4.2); Glucose 102 mg/dL (74-106); Potassium 4.6 mmol/L (3.5-5.1); Protein, Total 5.8 g/dL (6.4-8.2); Sodium Level 134 mmol/L (136-145)
[2020-09-18 14:33] LABS: Magnesium 2.5 mg/dL (1.6-2.6)
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
[2020-09-18] MEDS: Mirtazapine 15 MG Tablet 45 MG PO (20:36)
[2020-09-18] MEDS: oxyCODONE 5 MG Tablet PO (20:38)
--- NOTE | 2020-09-18 20:40 | NURSING ---
Pt requesting HS meds early.
--- NOTE | 2020-09-18 21:31 | DIALYSIS ---
[facility] initiated using 3 bags of 1.5% dextrose solution. 6 exchanges. 2L fill volumes. PD dressing changed. first drain and first fill completed without problem. pt court well.
[2020-09-19] VITALS (17 sets, daily range): BP systolic 99–124; BP diastolic 38–61; PULSE 62–70; RESP 16–18; TEMP 36.8–37.2; O2SAT 98–100
[2020-09-19] MEDS: Dicyclomine 10 MG Capsule 20 MG PO ×3 (05:08→21:15)
[2020-09-19] MEDS: hydrALAZINE 50 MG Tablet 100 MG PO (05:08)
--- NOTE | 2020-09-19 08:25 | DIALYSIS ---
[facility] completed. Disconnected using aseptic technique. pt denies issues overnight. Effluent very clear light with no fibrin. Dressing D/I. UF 844ml. report to Emilia PAREDES
[2020-09-19] MEDS: Pantoprazole Sodium 40 MG Tablet PO (09:24)
[2020-09-19] MEDS: Cinacalcet HCl 30 MG Tablet PO (09:24)
[2020-09-19] MEDS: APIXABAN 2.5 MG TABLET PO ×2 (09:24→21:15)
[2020-09-19] MEDS: DULoxetine Hcl 30 MG Capsule PO (09:24)
[2020-09-19] MEDS: Atenolol 25 MG Tablet PO (09:25)
[2020-09-19] MEDS: oxyCODONE 5 MG Tablet PO ×2 (11:33→21:17)
--- NOTE | 2020-09-19 12:05 | EKG12_ITS ---
Test Reason : CP Blood Pressure : / mmHG Vent. Rate : 066 BPM Atrial Rate : 066 BPM P-R Int : 212 ms QRS Dur : 084 ms QT Int : 464 ms P-R-T Axes : 052 020 066 degrees QTc Int : 486 ms Sinus rhythm with 1st degree A-V block Otherwise normal ECG When compared with ECG of 14-SEP-2020 11:36, Sinus rhythm has replaced Atrial fibrillation Nonspecific T wave abnormality no longer evident in Anterior leads Confirmed by TERE LEMON, JAN ([id number]), acquisition editor BIRDIE TORRES ([id number]) on 09/21/2020 9:09:39 AM Referred By: BRENNAN Confirmed By:JAN CARRANZA MD
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
[2020-09-19 14:26] LABS: D-Dimer Quantitative (DVT/PE) 1.08 FEU/ug/m (0.27-0.49)
[2020-09-19] MEDS: Mirtazapine 15 MG Tablet 45 MG PO (21:14)
[2020-09-19] MEDS: Acetaminophen 325 MG Tablet 650 MG PO (21:17)
--- NOTE | 2020-09-19 22:47 | DIALYSIS ---
CCPD initiated with on 24ml initial drain volume. PD dressing changed, site clean and dry. Pt resting quietly in bed in first dwell at this time.
[2020-09-20] VITALS (14 sets, daily range): BP systolic 106–141; BP diastolic 48–70; PULSE 58–68; RESP 14–18; TEMP 36.5–36.8; O2SAT 95–100
[2020-09-20] MEDS: Dicyclomine 10 MG Capsule 20 MG PO ×3 (05:22→21:51)
[2020-09-20] MEDS: 0.9% Saline Lock 10 ML Syringe IV (05:23)
[2020-09-20] MEDS: oxyCODONE 5 MG Tablet PO ×3 (06:51→21:56)
[2020-09-20] MEDS: Acetaminophen 325 MG Tablet 650 MG PO ×3 (06:51→21:56)
--- NOTE | 2020-09-20 08:58 | CASEMGMT ---
MARIA GUADALUPE spoke with patient and confirmed she still wants to go to a SNF for rehab. MARIA GUADALUPE told her SW will continue to work on this. MARIA GUADALUPE received a call from Hawa with [facility] and she asked if patient still wants placement. MARIA GUADALUPE told her she does. She is off today, but aMlena will be covering for her. She will call her and tell her to set up training and get pre-cert. MARIA GUADALUPE faxed updates to [facility]. Plan: [facility] pending dialysis training and insurance approval. Evy GONZALEZ MSW
[2020-09-20] MEDS: Cinacalcet HCl 30 MG Tablet PO (09:04)
[2020-09-20] MEDS: Pantoprazole Sodium 40 MG Tablet PO (09:04)
[2020-09-20] MEDS: Atenolol 25 MG Tablet PO (09:04)
[2020-09-20] MEDS: APIXABAN 2.5 MG TABLET PO ×2 (09:04→21:51)
[2020-09-20] MEDS: DULoxetine Hcl 30 MG Capsule PO (09:04)
--- NOTE | 2020-09-20 09:27 | DIALYSIS ---
CCPD tx complete. Stay safe cap placed using aseptic technique. Effluent drainage is very pale yellow. No fibrin noted. UF of 612ml. Report was given to REGGIE Mojica.
--- NOTE | 2020-09-20 10:15 | NM_ITS ---
CLINICAL: 70-year-old female with reported history of elevation of the d-dimer. VENTILATION-PERFUSION LUNG SCINTIGRAPHY COMPARISON: None available FINDINGS: The patient was administered 51.0 mCi 99m Tc DTPA aerosol. The aerosol ventilation study demonstrates heterogeneous ventilation identified throughout the bilateral lung linda. Central clumping of the aerosol is noted in the bilateral hemithorax. Following the intravenous administration of 5.6 mCi of 99m Tc MAA the pulmonary perfusion study reveals uniform perfusion throughout both lung linda. There are no segmental or subsegmental perfusion defects identified. There are no ventilation-perfusion mismatches observed. NM/Lung Scan Vent/Perf IMPRESSION: 1. NORMAL 99m Tc MAA pulmonary perfusion imaging examination, according to PIOPED II interpretive criteria. (Sotsman et al, Radiology 246: 941, 2008 Sotsman et al, J Nucl Med 49: 1741, 2008). 2. Central clumping of the aerosol may be secondary to obstructive airway mechanics and or clinical tachypnea. Electronically Signed: Peña White DO at 10:43 EDT Tel , Service support ,
--- NOTE | 2020-09-20 10:23 | PCM.TXEXTCAR ---
- Diet 09/15/20 15:31 Diet: Sodium Restricted (MOD) Food consistency:: Regular Liquid Consistency:: Regular/Thin Dietary Modifications:: Consistent Carbohydrate Is pt able to select menu?: Yes Fluid restriction:: 1500 mL - Routine Orders/Code Status Code Status: Full Code - Wound(s) ABD Wound Type: PD site - Allergies/Procedures Done in Hospital Allergies/Adverse Reactions: Allergies No Known Allergies Allergy (Verified 09/14/20 11:16) - Type of Care/Length of Stay Estimated LOS: More Than 30 Days Type of Care Needed: Skilled Rehab Potential: Fair Prognosis: Fair - Additional Orders/Day of Discharge Day of Discharge: 09/20/20 - Dietary and Speech Recommendations Dietitian Recommendations/Changes: Will continue consistent carbohydrate/sodium-restricted; 1500 ml FR. Protein-restriction not indicated given peritoneal dialysis. K+/phos WNL--restrict as needed. - Follow Up Care Primary Care Physician: Som Jha NP, [employer]-C [Primary Care Provider] - Please follow up with your Primary Care Physician in: Within the next two weeks
--- NOTE | 2020-09-20 11:27 | PHA.DC.MR ---
Pharmacy Service has performed discharge medication reconciliation for this patient. The patient's discharge medication list was reviewed for discrepancies and discrepancies were resolved. Home Medications Apixaban [Eliquis] 2.5 mg PO BID 12/19/19 Atenolol 25 mg PO DAILY 12/19/19 Mirtazapine [Remeron] 45 mg PO QHS 12/19/19 Albuterol IH (ProAir) [Proair Hfa] 1 - 2 puff INHALATION Q4H PRN PRN 03/31/20 Cinacalcet HCl 30 mg PO DAILY 03/31/20 Duloxetine Hcl [Cymbalta] 30 mg PO DAILY 03/31/20 Hydralazine HCl 100 mg PO TID 03/31/20 Ondansetron [Zofran Odt] 4 mg PO Q8H PRN PRN #10 tab 07/20/20 Furosemide [Lasix] 80 mg PO DAILY 08/28/20 Dicyclomine HCl 20 mg PO TID 09/14/20 Gabapentin 300 mg PO TID 09/14/20 Pantoprazole Sodium [Protonix] 40 mg PO DAILY 09/14/20
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
--- NOTE | 2020-09-20 13:35 | CASEMGMT ---
MARIA GUADALUPE spoke with Muna at [facility] and she did submit for pre-cert. She is not working on the dialysis part of it. MARIA GUADALUPE called Gabbi with [facility]. (in previous note MARIA GUADALUPE called her Pat when her name is actually Gabbi) She said she isn't working on it today, but she did hear that [facility] staff was going to [facility] for training at . She suggested MARIA GUADALUPE call Dang at [facility] as she is the one doing the training. MARIA GUADALUPE called Dang at [facility], but she was with a patient. They will have her call MARIA GUADALUPE back. Evy GONZALEZ MSW
--- NOTE | 2020-09-20 14:10 | CASEMGMT ---
MARIA GUADALUPE received a return call from Dang at [facility]. She said [facility] was supposed to be there at 2p and they have not shown up yet. She said she will let MARIA GUADALUPE know when they arrive. She said the training is only an hour to hour and a half. Evy Paredes [employer]
[2020-09-20] MEDS: hydrALAZINE 50 MG Tablet 100 MG PO ×2 (14:23→21:52)
[2020-09-20] MEDS: Mag Hydrox/Al Hydrox/Simeth 30 ML UDC PO (14:25)
--- NOTE | 2020-09-20 14:25 | CASEMGMT ---
MARIA GUADALUPE received a call from Dang with [facility]. She said [facility] thought she was coming to their facility. She said they normally do not do this, but she is going to do it due to the desperation of the situation. MARIA GUADALUPE thanked her for accommodating. Evy GONZALEZ
--- NOTE | 2020-09-20 16:22 | CASEMGMT ---
MARIA GUADALUPE received a call from Dang with [facility] and the [facility] nurses are trained. MARIA GUADALUPE told her we are waiting on insurance. MARIA GUADALUPE called Muna and asked if she has heard anything. She has not heard from insurance. She is going to e-mail her contact to see if they can tell her something. MARIA GUADALUPE told her that if it is after 1630 to call PCU. MARIA GUADALUPE put a green sheet on the chart. MARIA GUADALUPE let patient know we are waiting on insurance to approve her. MARIA GUADALUPE spoke with Neisha with [facility]. She was asking if patient is being discharged today. MARIA GUADALUPE told her she will be if insurance approves her. She asked that if patient is being discharged to call [phone]. MARIA GUADALUPE will pass this along to extension service specialist in charge. Plan: d/c to [facility] pending insurance approval. Staff is trained on Peritoneal Dialysis. Evy GONZALEZ
--- NOTE | 2020-09-20 20:52 | DIALYSIS ---
CCPD initiated using aseptic technique. Using prior orders. Initial drainage 41 ml. Effluent fluid clear. LLQ PD catheter dressing changed per protocol. Site benign. Patient denies pain or tenderness. Report given to primary RN, Olinda Lynn.
[2020-09-20] MEDS: Mirtazapine 15 MG Tablet 45 MG PO (21:51)
[2020-09-21] VITALS (10 sets, daily range): BP systolic 114–143; BP diastolic 47–72; PULSE 62–88; RESP 14–16; TEMP 36.6–36.8; O2SAT 94–100
[2020-09-21] MEDS: Dicyclomine 10 MG Capsule 20 MG PO ×2 (05:35→13:19)
[2020-09-21] MEDS: hydrALAZINE 50 MG Tablet 100 MG PO ×2 (05:35→13:19)
--- NOTE | 2020-09-21 07:40 | DIALYSIS ---
CCPD complete with 724ml fluid removed. No fibrin noted in clear effluent. Pt resting quietly in bed at this time.
[2020-09-21] MEDS: Cinacalcet HCl 30 MG Tablet PO (08:49)
[2020-09-21] MEDS: APIXABAN 2.5 MG TABLET PO (08:49)
[2020-09-21] MEDS: DULoxetine Hcl 30 MG Capsule PO (08:49)
[2020-09-21] MEDS: Atenolol 25 MG Tablet PO (08:50)
[2020-09-21] MEDS: Pantoprazole Sodium 40 MG Tablet PO (08:50)
[2020-09-21] MEDS: Acetaminophen 325 MG Tablet 650 MG PO (08:55)
[2020-09-21] MEDS: oxyCODONE 5 MG Tablet PO (08:55)
--- NOTE | 2020-09-21 11:43 | CASEMGMT ---
MARIA GUADALUPE called [facility] and Muna said that patient's pre-cert was accidentally canceled. They need updated therapy notes. MARIA GUADALUPE faxed therapy notes to [facility]. Await pre-cert. Evy GONZALEZ
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
--- NOTE | 2020-09-21 14:22 | CASEMGMT ---
MARIA GUADALUPE has tried to reach Muna at [facility], but there is no answer. MARIA GUADALUPE will continue to try and reach her. Evy Paredes SPECIAL INSPECTOR CASE RESOLUTION SPECIALIST
--- NOTE | 2020-09-21 15:05 | CASEMGMT ---
MARIA GUADALUPE did get talk with Muna from [facility]. She has not heard anything, but she is sending and e-mail to their contact center associate. Evy Paredes MSW
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
--- NOTE | 2020-09-21 16:11 | CASEMGMT ---
MARIA GUADALUPE received a call from Muna at [facility] and patient was approved. MARIA GUADALUPE notified JANET Fontenot, patient, RN, payroll secretary, and physician. MARIA GUADALUPE contacted [facility] to set up wc van transport via [facility] per patient[place]. [place] [id number]. Await call back regarding pickle sorter time. MARIA GUADALUPE called patient's son and let him know patient will be headed to [facility] today. We are just waiting on a pickle sorter time. He thanked MARIA GUADALUPE for the update. Convalescent completed in [facility]. Plan: d/c to [facility] under skilled level of care on a convalescent stay. [facility] will transport patient via wc van. Evy GONZALEZ
--- NOTE | 2020-09-21 16:35 | CASEMGMT ---
MARIA GUADALUPE did not hear back regarding crop picker time so MARIA GUADALUPE called Jessica back and gave them the trip number. She said that it was set up with [facility]. She called them and they said they will be here in 30-45 minutes. MARIA GUADALUPE asked if they will be providing a wheelchair and she said there is a note indicating wc must be provided. MARIA GUADALUPE notified chargeback analyst. d/c to [facility] under skilled level of care. Convalescent completed on and [facility] transported patient. (This [facility] per [facility] requirement) Evy Paredes IMPORT EXPORT AGENT CARLOS
== END 2020-09-21 16:57 | disposition skilled nursing facility (03) ==
LOC: ED 11:35 → PCU 13:29
PROVIDERS: Family Medicine; Internal Medicine Nephrology; Nurse Practitioner Family; Physician Assistant; Admitting Provider Internal Medicine; Emergency Provider Emergency Medicine; PCP Nurse Practitioner Family; Visit Provider Student in an Organized Health Care Education/Training Program
DX: R53.1 Weakness (principal); I48.91 Unspecified atrial fibrillation; S70.01XA Contusion of right hip, initial encounter; R07.9 Chest pain, unspecified; E87.6 Hypokalemia; E11.22 Type 2 diabetes mellitus with diabetic chronic kidney disease; N18.6 End stage renal disease; I12.0 Hypertensive chronic kidney disease with stage 5 chronic kidney disease or end stage renal disease; J45.909 Unspecified asthma, uncomplicated; F41.9 Anxiety disorder, unspecified; F32.9 Major depressive disorder, single episode, unspecified; K21.9 Gastro-esophageal reflux disease without esophagitis; E78.5 Hyperlipidemia, unspecified; F17.210 Nicotine dependence, cigarettes, uncomplicated; W19.XXXA Unspecified fall, initial encounter; Y93.89 Activity, other specified; Y92.003 Bedroom of unspecified non-institutional (private) residence as the place of occurrence of the external cause; Y99.9 Unspecified external cause status; Z99.2 Dependence on renal dialysis; Z79.01 Long term (current) use of anticoagulants; Z79.899 Other long term (current) drug therapy; Z86.718 Personal history of other venous thrombosis and embolism; Z86.73 Personal history of transient ischemic attack (TIA), and cerebral infarction without residual deficits; R29.6 Repeated falls; E83.42 Hypomagnesemia
CPT/HCPCS: 36415; 70450; 72040; 72100; 73521; 78582; 80048; 80053; 80061; 80069; 82274; 82962; 83036; 83735; 84100; 84132; 84484; 85025; 85379; 90947; 93005; 96360; 96361; 97110; 97116; 97162; 97166; 97530; 97535; 97802; 99218; 99284; A9540; A9567; J7030; A4216; G0257; G0378

== ENCOUNTER 2020-09-27 05:32 | Emergency (ER) | payer MEDICARE, MEDICAID, SELFPAY ==
[2020-09-14 14:08] VITALS: BMI 21.9
[2020-09-27 05:33] VITALS: BP 157/86; PULSE 75; RESP 16; TEMP 36.8; O2SAT 100; BMI 25.9
--- NOTE | 2020-09-27 05:40 | ED.RN ---
LMOM for son to let him know she is here and was sent by [facility] and gave number to call back for the update.
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
[2020-09-27] MEDS: Ondansetron ODT 4 MG Tablet 8 MG PO (06:00)
[2020-09-27] MEDS: Morphine 4 MG/ML Syringe IM (06:01)
--- NOTE | 2020-09-27 06:33 | ED.RN ---
Son updated with patient status, He will call back in approx 2 hours for another update.
--- NOTE | 2020-09-27 06:49 | ED.RN ---
Patient assisted to [facility] to try and void for sample. We will attempt a post-void residual. Call light in reach.
[2020-09-27 07:01] LABS: Mucous, Urine 0 SEEN /hpf (<or=2+)
[2020-09-27 07:02] LABS: Color, Urine Yellow (Yellow); Glucose, Dipstick Normal (Normal); Ketone-Dipstick Negative (Negative); Leukocyte Esterase-Dipstick 500 /ul (Negative); Nitrite-Dipstick Negative (Negative); Occult Blood-Urine 25 /ul (Negative); Protein-Dipstick 30 mg/dl (Negative); Urine Bilirubin Dipstick Negative (Negative); Urine Clarity Cloudy (Clear); Urine Urobilinogen Normal (Normal); Urine pH 6.5 (5.0 - 8.0)
[2020-09-27 07:08] LABS: Bacteria 1+ /hpf (None Seen); Red Blood Cells-Urine 10-25 SEEN /hpf (0-5); Squamous Epithelial Cells - UA 0-5 SEEN /hpf (5-10); White Blood Cells 25-50 SEEN /hpf (0-5)
--- NOTE | 2020-09-27 07:08 | ED.RN ---
PVR urine 125ml reported to Dr Roy.
[2020-09-27] MEDS: Smz/Tmp Ds Tablet 1 TABLET PO (07:14)
[2020-09-27] MEDS: HYDROmorphone 0.5 MG/0.5 ML SYRINGE IM (07:14)
[2020-09-27 09:12] VITALS: BP 148/82; PULSE 76; RESP 15; O2SAT 96
== END 2020-09-27 09:05 | disposition home or self-care (01) ==
PROVIDERS: Emergency Provider Emergency Medicine; PCP Nurse Practitioner Family
DX: M54.5 Low back pain (principal); G89.29 Other chronic pain; N30.00 Acute cystitis without hematuria; I12.0 Hypertensive chronic kidney disease with stage 5 chronic kidney disease or end stage renal disease; E11.22 Type 2 diabetes mellitus with diabetic chronic kidney disease; N18.6 End stage renal disease; F17.200 Nicotine dependence, unspecified, uncomplicated; J45.909 Unspecified asthma, uncomplicated; E78.5 Hyperlipidemia, unspecified; K21.9 Gastro-esophageal reflux disease without esophagitis; F32.9 Major depressive disorder, single episode, unspecified; F41.9 Anxiety disorder, unspecified; Z99.2 Dependence on renal dialysis; Z79.899 Other long term (current) drug therapy; Z86.718 Personal history of other venous thrombosis and embolism; Z86.73 Personal history of transient ischemic attack (TIA), and cerebral infarction without residual deficits
CPT/HCPCS: 81001; 87077; 87086; 87088; 87186; 96372; 96374; 96375; 99284

== ENCOUNTER 2020-09-28 03:08 | Emergency (ER) | payer MEDICARE, MEDICAID, SELFPAY ==
[2020-09-27 05:33] VITALS: BMI 25.9
[2020-09-28 03:09] VITALS: BP 138/86; PULSE 76; RESP 18; TEMP 36.7; O2SAT 99; BMI 28.2
[2020-09-28 03:11] VITALS: BP 138/86; PULSE 76; RESP 18; TEMP 36.7; O2SAT 99
--- NOTE | 2020-09-28 03:20 | RAD_ITS ---
STUDY: X-RAY - LUMBAR SPINE REASON FOR EXAM: Female, 70 years old. low back pain, unable to ambulate TECHNIQUE: 5 view(s) of the lumbar spine were obtained. COMPARISON: None FINDINGS: Normal lumbar lordosis. There is no substantial scoliosis. There is a normal alignment of the vertebrae. There is multilevel endplate spondylosis of the lumbar vertebrae. There is multi-level degenerative disc disease with multi-level disc space narrowing. IVC filter is noted chronic compression deformity of the superior endplate of T11 and T12 The soft tissue structures are unremarkable. RAD/L/S Spine Min 4 Views IMPRESSION: Degenerative changes of the spine, as detailed above. Electronically Signed: Raz Bond DO at 3:54 EDT Tel , Service support ,
--- NOTE | 2020-09-28 03:20 | RAD_ITS ---
STUDY: X-RAY - PELVIS REASON FOR EXAM: Female, 70 years old. B/l hip pain post fall 3 days prior TECHNIQUE: One view of the pelvis was obtained. COMPARISON: None. FINDINGS: There is a non-specific bowel gas pattern. Normal visualized soft tissue structures. Normal bilateral iliac wings, sacroiliac joints and visualized sacrum. Normal visualized bilateral superior and inferior pubic rami. Normal pubic symphysis. Normal ischial tuberosities. Bilateral hip arthroplasty. No evidence of acute hardware failure or loosening. No fracture or dislocation. RAD/Pelvis 1 or 2 Views IMPRESSION: No acute findings Electronically Signed: Raz Bond DO at 3:53 EDT Tel , Service support ,
[2020-09-28] MEDS: Morphine 4 MG/ML Syringe IM (03:27)
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
--- NOTE | 2020-09-28 04:19 | CT_ITS ---
STUDY: CT ABDOMEN AND PELVIS WITHOUT CONTRAST REASON FOR EXAM: Female, 70 years old. low back pain radiating into groin -- Eval for stone diabetes, hypertension, hyperlipidemia, end-stage renal disease with peritoneal dialysis. Prior JULIA/BSO for uterine cancer, cholecystectomy, and hernia surgery. RADIATION DOSAGE (If Supplied By Facility): CTDIvol = ( 12.11 ) mGy, DLP = ( 583.80 ) mGycm TECHNIQUE: Transaxial images were obtained from the dome of the diaphragm to the symphysis pubis without oral contrast, and without intravenous contrast. Sagittal and coronal images were reconstructed. Individualized dose optimization techniques were used for this CT. COMPARISON: CT scan abdomen and pelvis with 07/20/2020 and 01/31/2020. FINDINGS: There are small bilateral pleural effusions with overlying atelectasis in the visualized lung bases. The visualized portions of the heart are within normal limits. There is moderate amount of free fluid in the peritoneal cavity, consistent with dialysate. There is a peritoneal dialysis catheter with its curled and in the anterior lower pelvis. There is a 3.2 cm low-attenuation space-occupying lesion in the anterior right lobe of the liver, which has not increased in size since the 2019 exam. There are surgical clips in the gallbladder fossa consistent with a prior cholecystectomy. Normal spleen. There is a small calcification in the head of the pancreas, stable in appearance.. Normal bilateral adrenal glands. Normal right kidney. There is a small left renal cyst. Otherwise, normal left kidney. Normal visualized stomach. Normal small intestine. Normal colon. The appendix is seen on series 4, axial images 58-66 and it appears normal. There is diffuse atherosclerotic calcification of the abdominal aorta, without a demonstrated aneurysm. There is an IVC filter in place. Normal retroperitoneum. Normal urinary bladder. Normal visualized adnexa. Normal abdominal wall. There are bilateral hip prostheses. CT/Abdomen/Pelvis without Cont IMPRESSION: Peritoneal dialysis catheter in place. Dialysis fluid is present. IVC filter. Previous hysterectomy. Previous cholecystectomy Atherosclerosis. 3.2 cm space-occupying lesion in the right lobe liver is stable in appearance. No evidence for acute pathology. No demonstrated urinary calculi or hydronephrosis. No evidence for appendicitis or diverticulitis. No evidence of bowel obstruction or ileus. Electronically Signed: Efrain Garcia MD at 6:03 EDT , Service support ,
[2020-09-28] MEDS: HYDROmorphone 1 MG/ML Syringe IM (04:29)
[2020-09-28 06:35] VITALS: BP 153/99; PULSE 69; RESP 16; O2SAT 95
--- NOTE | 2020-09-28 06:42 | ED.RN ---
REPORT CALLED TO ROSA AT [facility].
== END 2020-09-28 07:20 | disposition home or self-care (01) ==
PROVIDERS: Emergency Provider Emergency Medicine; PCP Family Medicine; Referring Provider Family Medicine
DX: M54.5 Low back pain (principal); R10.31 Right lower quadrant pain; R10.32 Left lower quadrant pain; N39.0 Urinary tract infection, site not specified; I12.0 Hypertensive chronic kidney disease with stage 5 chronic kidney disease or end stage renal disease; N18.6 End stage renal disease; E11.22 Type 2 diabetes mellitus with diabetic chronic kidney disease; E78.5 Hyperlipidemia, unspecified; F17.200 Nicotine dependence, unspecified, uncomplicated; Z79.01 Long term (current) use of anticoagulants; Z99.2 Dependence on renal dialysis; Z96.643 Presence of artificial hip joint, bilateral; Z79.899 Other long term (current) drug therapy; Z86.718 Personal history of other venous thrombosis and embolism
CPT/HCPCS: 72110; 72170; 74176; 96372; 99285

== ENCOUNTER 2020-09-29 12:23 | Inpatient (IN) | payer MEDICARE, MEDICAID, SELFPAY ==
[2020-09-28 03:09] VITALS: BMI 28.2
[2020-09-29] VITALS (12 sets, daily range): BP systolic 95–129; BP diastolic 59–84; PULSE 64–87; RESP 16–20; TEMP 35.9–37.3; O2SAT 93–98; BMI 26.9; BMI 27.0; BMI 25.5
--- NOTE | 2020-09-29 12:40 | EKG12_ITS ---
Test Reason : ABNORMAL LABS Blood Pressure : / mmHG Vent. Rate : 076 BPM Atrial Rate : 076 BPM P-R Int : 200 ms QRS Dur : 086 ms QT Int : 416 ms P-R-T Axes : 052 017 052 degrees QTc Int : 468 ms Normal sinus rhythm Normal ECG Confirmed by BRANDON LEMON, MACIE ([id number]), editor greeting card BIRDIE TORRES ([id number]) on 10/01/2020 12:45:12 PM Referred By: CARIN Confirmed By:MACIE TAYLOR MD
--- NOTE | 2020-09-29 13:00 | RAD_ITS ---
STUDY: X-RAY CHEST REASON FOR EXAM: Female, 70 years old. Weakness . Shortness of breath. TECHNIQUE: Single AP portable view of the chest. COMPARISON: Comparison is made with prior study dated 07/03/2020. FINDINGS: Hyperinflation. Stable blunting of the left costophrenic angle with mild increased markings at the left lung base suggests scarring. Normal size heart. Normal mediastinum and farhan. Normal visualized pulmonary arteries. Normal visualized aortic arch and descending thoracic aorta. Normal visualized thoracic spine. Normal visualized ribs, clavicles, and shoulders. There is no demonstrated abnormality of the visualized soft tissue structures of the upper abdomen. RAD/Chest 1 View (Portable) IMPRESSION: Stable blunting of the left costophrenic angle with a mild degree of increased markings at the left lung base suggestive of mild scarring. Electronically Signed: Lopez Barraza MD at 13:16 EDT , Service support ,
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
--- NOTE | 2020-09-29 13:55 | ED.RN ---
PER PT SHE NO LONGER MAKES URINE
[2020-09-29 13:58] LABS: Absolute Lymphocyte Count 1.23 X10^3/uL (0.83-4.51); Absolute Neutrophil Count 5.2 X10^3/uL (2.0-7.7); Basophil# 0.03 X10^3/uL; Basophil% 0.4 % (0-1); Eosinophil# 0.21 X10^3/uL; Eosinophils% 2.8 % (0-5); Hematocrit 20.3 % (37-47); Hemoglobin 6.4 g/dL (12.0-15.0); Lymphocyte # 1.23 X10^3/ul (4.0); Lymphocyte % 16.5 % (19-41); Mean Corp Hgb Conc 31.5 g/dL (32-36); Mean Corpuscular Hgb 30.2 pg (27.0-32.0); Mean Corpuscular Volume 95.8 fL (81-99); Mean Platelet Vol. 9.1 fl (6.2-12.0); Monocyte# 0.73 X10^3/uL; Monocyte% 9.8 % (0-10); NRBC Flagged by Analyzer 0 % (0-5); Platelet Count 217 K/mm3 (150-450); RBC Distribution Width CV 14.3 % (11.6-14.6); RBC Distribution Width SD 49.7 fl (35.1-43.9); Red Blood Count 2.12 M/mm3 (4.2-5.4); White Blood Count 7.4 K/mm3 (4.4-11.0)
[2020-09-29 14:53] LABS: Anion Gap 7 (5-15); BUN 53 mg/dL (7-18); Calcium,Total 7.1 mg/dL (8.5-10.1); Chloride 99 mmol/L (98-107); Creatinine, Serum 7.57 mg/dL (0.55-1.02); EST Glomerular Filtration Rate 6 mL/min (>60); Est Glom Filt Rate - Afr Amer 7 mL/min (>60); Estimated Creatinine Clearance 7.43 ml/min; Glucose 75 mg/dL (74-106); Potassium 4.7 mmol/L (3.5-5.1); Sodium Level 133 mmol/L (136-145)
--- NOTE | 2020-09-29 14:58 | ED.RN ---
INFORMED OF CREAT LEVEL. NNO VOICED
--- NOTE | 2020-09-29 15:28 | NURSING ---
[id number] BAUMAN [phone] BAUMAN
--- NOTE | 2020-09-29 15:37 | NURSING ---
DR SWARTZ PAGEJessica
--- NOTE | 2020-09-29 15:55 | NURSING ---
DR ROLDAN FOR DR BALL
--- NOTE | 2020-09-29 16:08 | NURSING ---
PCU YULI ANEMIA, RENAL FAILURE, UREMIA
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
--- NOTE | 2020-09-29 17:36 | OP.PCM_ITS ---
Report of Operation Date of Procedure: 09/29/20 Pre-Operative Diagnosis: Chronic renal failure, need for IV access Post-Operative Diagnosis: Same Surgery/Procedure Performed:: Insertion of right IJ temporary dialysis catheter Type of Anesthesia:: Local Estimated Blood Loss (mL): 10 cc Description of Procedure: Procedure: A time-out was completed to verify correct patient, indication, medication allergies, procedure, coagulation studies?patient just took Eliquis today but needed any emergent catheter due to need for dialysis, informed consent signed, and equipment needed. The patient was placed in the supine position for a central line placement to the right IJ vein. The patients right neck was prepped using chlorhexidine and a full body sterile drape was applied. 1% lidocaine was used to anesthetize the surrounding skin. A Mahurkar Elite 12 Monegasque x16 cm (ref [id number]) Temporary hemodialysis catheter introduced into the internal jugular vein using the modified Seldinger technique with the assistance of ultrasound. The site was dilated up twice in a stepwise fashion. The catheter was threaded smoothly over the guidewire, the guidewire was removed easily, nonpulsatile blood returned. All ports were aspirated of air and flushed with sterile saline Then flushed with 1:10,000 heparin 1.3 mL to each port. The catheter was sutured in place and dressing was placed. Patient tolerated procedure well. X-ray ordered. Grafts/Implants Used: Mahurkar Elite 12 Monegasque x16 cm (ref [id number]) - Complications none
[2020-09-29 17:37] LABS: Vitamin B12 501 pg/mL (211-911)
[2020-09-29 17:38] LABS: Ferritin 789 ng/mL (8-252); Iron 54 ug/dL (50-170); Iron Binding Capacity,Total 263 ug/dL (250-450); PERCENT IRON SATURATION 20.5 % (15.0-55.0); Thyroid Stim Hormone (TSH) 5.31 uIU/mL (0.358-3.74)
--- NOTE | 2020-09-29 17:55 | RAD_ITS ---
STUDY: X-RAY CHEST REASON FOR EXAM: Female, 70 years old. dialysis -- portable TECHNIQUE: Frontal view of the chest COMPARISON: Same day FINDINGS: Central venous catheter was placed into the right internal jugular and now terminates with its tip in the upper right atrium. Lungs are fully inflated without pneumothorax. Lungs are clear without pneumonia, pulmonary edema. There are no pleural effusions. Cardiac silhouette is mildly enlarged. Osseous structures are intact. RAD/CXR for Line Placement IMPRESSION: 1. Normal appearance of right internal jugular approach dialysis catheter with tip in the upper right atrium. 2. No pneumothorax. 3. Mild cardiomegaly, no pulmonary edema. Electronically Signed: Anurag Andrade MD at 18:50 EDT Tel , Service support ,
[2020-09-29] MEDS: Heparin 10,000 UNITS/10 ML Vial IV (19:17)
[2020-09-29] MEDS: Acetaminophen 325 MG Tablet 650 MG PO (19:28)
[2020-09-29] MEDS: oxyCODONE 5 MG Tablet PO (20:22)
[2020-09-29] MEDS: Calcium Carbonate 500 MG Tablet PO (21:45)
[2020-09-29 23:52] LABS: Hematocrit 23.7 % (37-47); Hemoglobin 7.5 g/dL (12.0-15.0)
[2020-09-30] VITALS (12 sets, daily range): BP systolic 111–130; BP diastolic 65–94; PULSE 74–99; RESP 16–20; TEMP 36.7–37; O2SAT 97–99
--- NOTE | 2020-09-30 00:24 | NURSING ---
Dialysis nurse informed this RN that she will not be able to run pt's dialysis tonight and that they will do it first thing tomorrow morning. Dr. Mcneal and hospitalist advised this RN to call nephrology and make sure it was okay to not do it until the morning because per the ER MD and hospitalist progress notes, pt was supposed to get dialysis right after after the temporary dialysis catheter was placed by Dr. Mcneal. [facility] paged and this RN spoke to Dr. Felix who was chemical detection expert. Dr. Felix informed of situation and lab values discussed. Since pt is not short of breath or anything, Dr. Felix is okay with waiting until the morning to do dialysis. REGGIE Alford.
[2020-09-30] MEDS: oxyCODONE 5 MG Tablet PO ×3 (02:58→21:15)
[2020-09-30] MEDS: 0.9% Saline Lock 10 ML Syringe IV (02:58)
[2020-09-30] MEDS: Acetaminophen 325 MG Tablet 650 MG PO ×3 (02:58→21:14)
[2020-09-30 06:38] LABS: Absolute Lymphocyte Count 1.34 X10^3/uL (0.83-4.51); Absolute Neutrophil Count 5.3 X10^3/uL (2.0-7.7); Basophil# 0.03 X10^3/uL; Basophil% 0.4 % (0-1); Eosinophil# 0.15 X10^3/uL; Hematocrit 23.4 % (37-47); Hemoglobin 7.3 g/dL (12.0-15.0); Lymphocyte # 1.34 X10^3/ul (4.0); Lymphocyte % 17.8 % (19-41); Mean Corp Hgb Conc 31.2 g/dL (32-36); Mean Corpuscular Hgb 30.3 pg (27.0-32.0); Mean Corpuscular Volume 97.1 fL (81-99); Mean Platelet Vol. 8.9 fl (6.2-12.0); Monocyte# 0.67 X10^3/uL; Monocyte% 8.9 % (0-10); NRBC Flagged by Analyzer 0 % (0-5); Neutrophil % 70.6 % (47-70); Platelet Count 213 K/mm3 (150-450); RBC Distribution Width CV 14.4 % (11.6-14.6); RBC Distribution Width SD 50.1 fl (35.1-43.9); Red Blood Count 2.41 M/mm3 (4.2-5.4); White Blood Count 7.5 K/mm3 (4.4-11.0)
[2020-09-30 07:01] LABS: ALB/GLOB Ratio 0.6 RATIO (0.9-2.4); AST(SGOT) 28 U/L (15-37); Alanine Aminotransfer ALT/SGPT 23 U/L (13-56); Albumin, Serum 2.1 g/dL (3.2-5.0); Alkaline Phosphatase 81 U/L (45-117); Anion Gap 7 (5-15); BUN 62 mg/dL (7-18); BUN/Creat Ratio 7.5 RATIO (10-20); Calcium,Total 7.4 mg/dL (8.5-10.1); Chloride 99 mmol/L (98-107); Creatinine, Serum 8.31 mg/dL (0.55-1.02); EST Glomerular Filtration Rate 5 mL/min (>60); Est Glom Filt Rate - Afr Amer 6 mL/min (>60); Estimated Creatinine Clearance 6.77 ml/min; Globulin 3.6 g/dL (2.2-4.2); Glucose 72 mg/dL (74-106); Potassium 5.5 mmol/L (3.5-5.1); Protein, Total 5.7 g/dL (6.4-8.2); Sodium Level 136 mmol/L (136-145)
--- NOTE | 2020-09-30 07:01 | NURSING ---
Primary RN (nightshift) made aware of critical creatinine level.
--- NOTE | 2020-09-30 08:07 | PCM.PN.SRG ---
Patient Problems: Active and Suspected Problems (Last Reviewed 09/29/20 @ 16:[address] Stiven Mo, DO) Anemia (Acute) Myoclonus (Acute) Subjective: Patient is getting ready for dialysis this morning. - Physical Exam Vitals/I&O's: Vital Signs Temp Pulse Resp BP Pulse Ox 98.6 F 77 20 H 118/65 97 09/30/20 03:00 09/30/20 06:42 09/30/20 03:00 09/30/20 06:29 09/30/20 03:00 Oxygen Delivery Method Room Air Weight: 173 lb Body Mass Index (BMI) 25.5 Finger Stick Blood Glucose 153 Intake and Output for Last 24 Hours 09/28/20 09/29/20 09/30/20 23:59 23:59 23:59 Intake Total 400 / 760 480 / 480 Balance 400 / 760 480 / 480 General: Alert, Oriented x3, Cooperative, No apparent distress Neck: - - Right IJ temporary dialysis catheter in place Laboratory Results 09/29/20 13:45: WBC 7.4, RBC 2.12 L, Hgb 6.4 L, Hct 20.3 L, MCV 95.8, MCH 30.2, MCHC 31.5 L, RDW Std Deviation 49.7 H, RDW Coeff of Destiny 14.3, Plt Count 217, MPV 9.1, Immature Gran % (Auto) 0.500, Neut % (Auto) 70.0, Lymph % (Auto) 16.5 L, Douglas % (Auto) 9.8, Eos % (Auto) 2.8, Baso % (Auto) 0.4, Absolute Neuts (auto) 5.2, Absolute Lymphs (auto) 1.23, Nucleated RBC % 0 09/29/20 13:45: Sodium 133 L, Potassium 4.7, Chloride 99, Carbon Dioxide 27.0, Anion Gap 7, BUN 53 H, Creatinine 7.57 H*, Estim Creat Clear Calc 7.43, Est GFR (MDRD) Af Amer 7 L, Est GFR (MDRD) Non-Af 6 L, BUN/Creatinine Ratio 7.0 L, Glucose 75, Calcium 7.1 L, Troponin I < 0.015 09/29/20 13:45: Iron 54, TIBC 263, Iron Saturation 20.5, Ferritin 789 H, TSH 5.31 H 09/29/20 16:30: Vitamin B12 501 09/29/20 16:30: Blood Type A POSITIVE, Antibody Screen NEGATIVE, Crossmatch See Detail 09/29/20 23:39: Hgb 7.5 L, Hct 23.7 L 09/30/20 06:10: WBC 7.5, RBC 2.41 L, Hgb 7.3 L, Hct 23.4 L, MCV 97.1, MCH 30.3, MCHC 31.2 L, RDW Std Deviation 50.1 H, RDW Coeff of Destiny 14.4, Plt Count 213, MPV 8.9, Immature Gran % (Auto) 0.300, Neut % (Auto) 70.6 H, Lymph % (Auto) 17.8 L, Douglas % (Auto) 8.9, Eos % (Auto) 2.0, Baso % (Auto) 0.4, Absolute Neuts (auto) 5.3, Absolute Lymphs (auto) 1.34, Nucleated RBC % 0 09/30/20 06:10: Sodium 136, Potassium 5.5 H, Chloride 99, Carbon Dioxide 30.0, Anion Gap 7, BUN 62 H, Creatinine 8.31 H*, Estim Creat Clear Calc 6.77, Est GFR (MDRD) Af Amer 6 L, Est GFR (MDRD) Non-Af 5 L, BUN/Creatinine Ratio 7.5 L, Glucose 72 L, Calcium 7.4 L, Total Bilirubin 0.20, AST 28, ALT 23, Alkaline Phosphatase 81, Total Protein 5.7 L, Albumin 2.1 L, Globulin 3.6, Albumin/Globulin Ratio 0.6 L Current Medications Acetaminophen (Acetaminophen 325 Mg Tablet) 650 mg PO Q6H PRN PRN PRN Reason: Pain Score 1-10/Temp > 100.7 F Last Admin: 09/30/20 02:58 Dose: 650 mg Documented by: Atenolol (Atenolol 25 Mg Tablet) 25 mg PO DAILY [facility] Calcium Carbonate (Calcium Carbonate 500 Mg Tablet) 500 mg PO BID [facility] Last Admin: 09/29/20 21:45 Dose: 500 mg Documented by: Cinacalcet (Cinacalcet Hcl 30 Mg Tablet) 30 mg PO DAILY [facility] Hydralazine HCl (Hydralazine 50 Mg Tablet) 100 mg PO TID [facility] Last Admin: 09/30/20 06:29 Dose: Not Given Documented by: Oxycodone HCl (Oxycodone 5 Mg Tablet) 5 mg PO Q6H PRN PRN PRN Reason: Pain Score 6-10 Last Admin: 09/30/20 02:58 Dose: 5 mg Documented by: Pantoprazole Sodium (Pantoprazole Sodium 40 Mg Tablet) 40 mg PO DAILY [facility] Pyridoxine HCl (Pyridoxine Hcl 100 Mg Tablet) 100 mg PO DAILY [facility] Sodium Chloride (0.9% Saline Lock 10 Ml Syringe) 10 - 40 ml IV UD PRN PRN Reason: SALINE FLUSH Last Admin: 09/30/20 02:58 Dose: 10 ml Documented by: Medical Necessity - Tobacco Use Smoking Status: Current every day smoker Tobacco Use: Cigarettes Assessment/Plan All Active Problems (Last Reviewed 09/29/20 @ 16:[address] Stiven Mo, DO) Anemia (Acute) Myoclonus (Acute) s/p chest catheters (Resolved) 70-year-old female with chronic kidney failure on peritoneal dialysis?need for HD dialysis, anemia status post placement of temporary right IJ dialysis catheter 1. Is getting dialysis this morning. Will talk with hospitalist timing of tunneled dialysis catheter as patient did have Eliquis yesterday would like patient be off Eliquis for about 2 days prior to placing. Also the procedure of a tunneled dialysis catheter with patient risk and benefits patient had no further question this time. Anamika Mcneal M.D. Pager: [phone] [facility] [address] [place] [address], Outpatient [place], [address] [place] [address] Office: [phone] Inpatient E&M: [id number] [facility] H[facility] L2
--- NOTE | 2020-09-30 09:36 | CASEMGMT ---
SW met with patient. SW worked with patient when she was here last week. She said her plan is to return to [facility] when ready. SW will send them updates and follow for d/c planning. Plan: d/c back to [facility] under skilled level of care. Evy GONZALEZ
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
--- NOTE | 2020-09-30 10:43 | CASEMGMT ---
MARIA GUADALUPE spoke with Hawa from [facility]. She saw the updates and saw that patient will be hemodialysis now. She will check on her end what they need to do to help her get dialysis in house at [facility]. MARIA GUADALUPE told her CM is also checking on their end. Plan: d/c back to [facility] when ready. Patient will need a pre-cert to return. Evy GONZALEZ
--- NOTE | 2020-09-30 11:04 | CASEMGMT ---
Pt is already active with [facility] for her PD and is currently at [facility], plans to go back there. Per Dr. Felix, pt to be placed on HD now and has temp cath in place, but will not get tunnel cath until 10/04/20 d/t Eliquis yesterday. Per Niesha at [facility], since pt is already active, this RN CM does not need to do anything at this time for pt to switch to HD and states 'that's all on our end.' Niesha is updated on tunnel cath sunday and per Dr. Felix, pt will not need dialysis until sunday10/05/20 as she will have dialysis //Sun with temp cath. Per Niesha, if pt does not need dialysis until sunday then they can dialyze her at [facility] on sunday. Ian SW updated on all and precert will need to be obtained so that pt can be discharged back to [facility] for dialysis on sunday10/05/20. CM to follow. Leonides PAREDES CM
--- NOTE | 2020-09-30 11:48 | DIALYSIS ---
HD X 3 HOURS ON 2K BATH UF-1000ML TOLERATED WELL. GOOD FLOWS FROM RIJ CATH CLOSED WITH HEPARIN. NO MEDS GIVEN. WILL NEED HEPARIN IN THE FUTURE CLOTS IN VENOUS CHAMBER. PT WILL HAVE ANOTHER TX TOMORROW AND SUNDAY PER DR MORALES
[2020-09-30] MEDS: Cinacalcet HCl 30 MG Tablet PO (12:13)
[2020-09-30] MEDS: Atenolol 25 MG Tablet PO (12:13)
[2020-09-30] MEDS: Calcium Carbonate 500 MG Tablet PO ×2 (12:13→21:13)
[2020-09-30] MEDS: Pyridoxine HCl 100 MG Tablet PO (12:13)
[2020-09-30] MEDS: Pantoprazole Sodium 40 MG Tablet PO (12:14)
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
[2020-09-30] MEDS: hydrALAZINE 50 MG Tablet 100 MG PO ×2 (14:08→21:13)
[2020-10-01] VITALS (14 sets, daily range): BP systolic 125–143; BP diastolic 60–73; PULSE 61–79; RESP 18–20; TEMP 36.6–36.9; O2SAT 98–100
[2020-10-01 06:07] LABS: Absolute Lymphocyte Count 1.38 X10^3/uL (0.83-4.51); Absolute Neutrophil Count 3.7 X10^3/uL (2.0-7.7); Basophil# 0.03 X10^3/uL; Basophil% 0.5 % (0-1); Eosinophil# 0.21 X10^3/uL; Eosinophils% 3.6 % (0-5); Hemoglobin 7.2 g/dL (12.0-15.0); Lymphocyte # 1.38 X10^3/ul (4.0); Lymphocyte % 23.4 % (19-41); Mean Corp Hgb Conc 31.3 g/dL (32-36); Mean Corpuscular Hgb 30.6 pg (27.0-32.0); Mean Corpuscular Volume 97.9 fL (81-99); Mean Platelet Vol. 9.2 fl (6.2-12.0); Monocyte# 0.57 X10^3/uL; Monocyte% 9.7 % (0-10); NRBC Flagged by Analyzer 0 % (0-5); Neutrophil # 3.68 X10^3/uL (2.7-7.7); Neutrophil % 62.5 % (47-70); Platelet Count 192 K/mm3 (150-450); RBC Distribution Width CV 14.5 % (11.6-14.6); RBC Distribution Width SD 50.4 fl (35.1-43.9); Red Blood Count 2.35 M/mm3 (4.2-5.4); White Blood Count 5.9 K/mm3 (4.4-11.0)
[2020-10-01] MEDS: hydrALAZINE 50 MG Tablet 100 MG PO ×3 (06:39→21:39)
[2020-10-01 06:49] LABS: Albumin, Serum 1.9 g/dL (3.2-5.0); BUN 36 mg/dL (7-18); BUN/Creat Ratio 6.4 RATIO (10-20); Calcium,Total 7.5 mg/dL (8.5-10.1); Chloride 99 mmol/L (98-107); Creatinine, Serum 5.63 mg/dL (0.55-1.02); EST Glomerular Filtration Rate 8 mL/min (>60); Est Glom Filt Rate - Afr Amer 10 mL/min (>60); Estimated Creatinine Clearance 9.99 ml/min; Glucose 70 mg/dL (74-106); Phosphorus 5.3 mg/dL (2.5-4.9); Sodium Level 134 mmol/L (136-145)
--- NOTE | 2020-10-01 11:25 | CASEMGMT ---
Social Work placed phone call to [facility] and updated Hawa that pt will be ready for d/c after dialysis cath is placed on Sunday with dialysis at [facility] on Sunday. Requested precert be started so pt can be admitted on Sunday. Updated clinicals faxed. Hawa states precert to be started today. Plan: [facility], Sunday, pending precert MITRA Ceja
[2020-10-01] MEDS: Calcium Carbonate 500 MG Tablet PO (13:16)
[2020-10-01] MEDS: Pantoprazole Sodium 40 MG Tablet PO (13:17)
[2020-10-01] MEDS: Atenolol 25 MG Tablet PO (13:17)
[2020-10-01] MEDS: Cinacalcet HCl 30 MG Tablet PO (13:17)
[2020-10-01] MEDS: Pyridoxine HCl 100 MG Tablet PO (13:17)
[2020-10-01] MEDS: oxyCODONE 5 MG Tablet PO ×2 (13:21→19:38)
[2020-10-01] MEDS: Acetaminophen 325 MG Tablet 650 MG PO (13:21)
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
--- NOTE | 2020-10-01 14:40 | DIALYSIS ---
Hemodialysis x3.5 completed at 1300 on a 2K bath, tolerated well, UF 1000mL, accessed via right neck temporary dialysis catheter, worked well, clotting of venous chamber, able to complete tx, next tx planned for tomorrow for 4 hours
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
[2020-10-02] VITALS (12 sets, daily range): BP systolic 128–139; BP diastolic 63–82; PULSE 66–97; RESP 16–18; TEMP 36.8–37.2; O2SAT 97–98
[2020-10-02] MEDS: hydrALAZINE 50 MG Tablet 100 MG PO ×3 (05:07→20:14)
[2020-10-02] MEDS: oxyCODONE 5 MG Tablet PO ×3 (05:08→21:32)
[2020-10-02 06:23] LABS: Absolute Lymphocyte Count 1.15 X10^3/uL (0.83-4.51); Absolute Neutrophil Count 4.7 X10^3/uL (2.0-7.7); Basophil# 0.02 X10^3/uL; Basophil% 0.3 % (0-1); Eosinophil# 0.25 X10^3/uL; Eosinophils% 3.7 % (0-5); Hematocrit 24.8 % (37-47); Hemoglobin 7.6 g/dL (12.0-15.0); Lymphocyte # 1.15 X10^3/ul (4.0); Lymphocyte % 16.9 % (19-41); Mean Corp Hgb Conc 30.6 g/dL (32-36); Mean Corpuscular Hgb 30.3 pg (27.0-32.0); Mean Corpuscular Volume 98.8 fL (81-99); Monocyte% 10.3 % (0-10); NRBC Flagged by Analyzer 0 % (0-5); Neutrophil # 4.67 X10^3/uL (2.7-7.7); Neutrophil % 68.4 % (47-70); Platelet Count 191 K/mm3 (150-450); RBC Distribution Width CV 14.5 % (11.6-14.6); Red Blood Count 2.51 M/mm3 (4.2-5.4); White Blood Count 6.8 K/mm3 (4.4-11.0)
[2020-10-02 07:07] LABS: Anion Gap 5 (5-15); BUN 19 mg/dL (7-18); Calcium,Total 7.1 mg/dL (8.5-10.1); Chloride 101 mmol/L (98-107); Creatinine, Serum 3.77 mg/dL (0.55-1.02); EST Glomerular Filtration Rate 13 mL/min (>60); Est Glom Filt Rate - Afr Amer 15 mL/min (>60); Estimated Creatinine Clearance 14.93 ml/min; Free T3 1.9 pg/mL (2.18-3.98); Glucose 77 mg/dL (74-106); Potassium 4.1 mmol/L (3.5-5.1); Sodium Level 138 mmol/L (136-145); T4 Free Direct 0.94 ng/dL (0.76-1.46)
--- NOTE | 2020-10-02 08:45 | PN.SURG_ITS ---
Patient Problems: Active and Suspected Problems (Last Reviewed 09/29/20 @ 16:[address] Stiven Mo, DO) Anemia (Acute) Myoclonus (Acute) Subjective: Patient is getting dialysis currently. Patient's myoclonus has resolved with dialysis. We will plan for tunneled dialysis catheter on 10/04/2020 1?2 PM. - Physical Exam Vitals/I&O's: Vital Signs Temp Pulse Resp BP Pulse Ox 98.3 F 66 18 139/66 H 98 10/02/20 03:35 10/02/20 07:58 10/02/20 03:35 10/02/20 05:07 10/02/20 03:35 Oxygen Delivery Method Room Air Weight: 167 lb 15.876 oz Body Mass Index (BMI) 25.5 Finger Stick Blood Glucose 153 Intake and Output for Last 24 Hours 09/30/20 10/01/20 10/02/20 23:59 23:59 23:59 Intake Total 1180 / 1480 1160 / 1360 230 / 230 Output Total 1000 / 1000 1000 / 1000 Balance 180 / 480 160 / 360 230 / 230 General: Alert, Oriented x3, Cooperative, No apparent distress HEENT: - - Right temporary dialysis catheter in place functioning well Microbiology Past 72 Hours 10/01/20 19:40 Mucosa - Nose SARS-CoV-2 Antigen (Rapid) - Final 10/01/20 15:20 Stool Stool Occult Blood (JOHNSON) - Final Occult Blood Positive Laboratory Results 10/02/20 05:58: WBC 6.8, RBC 2.51 L, Hgb 7.6 L, Hct 24.8 L, MCV 98.8, MCH 30.3, MCHC 30.6 L, RDW Std Deviation 51.0 H, RDW Coeff of Destiny 14.5, Plt Count 191, MPV 9.0, Immature Gran % (Auto) 0.400, Neut % (Auto) 68.4, Lymph % (Auto) 16.9 L, [place] % (Auto) 10.3 H, Eos % (Auto) 3.7, Baso % (Auto) 0.3, Absolute Neuts (auto) 4.7, Absolute Lymphs (auto) 1.15, Nucleated RBC % 0 10/02/20 05:58: Sodium 138, Potassium 4.1, Chloride 101, Carbon Dioxide 32.0, Anion Gap 5, BUN 19 H, Creatinine 3.77 H, Estim Creat Clear Calc 14.93, Est GFR (MDRD) Af Amer 15 L, Est GFR (MDRD) Non-Af 13 L, BUN/Creatinine Ratio 5.0 L, Glucose 77, Calcium 7.1 L, Free T4 0.94, Free T3 pg/dL 1.9 L 10/02/20 05:58: Ionized Calcium Pending Current Medications Acetaminophen (Acetaminophen 325 Mg Tablet) 650 mg PO Q6H PRN PRN PRN Reason: Pain Score 1-10/Temp > 100.7 F Last Admin: 10/01/20 13:21 Dose: 650 mg Documented by: Atenolol (Atenolol 25 Mg Tablet) 25 mg PO DAILY [facility] Last Admin: 10/01/20 13:17 Dose: 25 mg Documented by: Calcium Carbonate (Calcium Carbonate 500 Mg Tablet) 500 mg PO BID [facility] Last Admin: 10/01/20 21:39 Dose: Not Given Documented by: Cinacalcet (Cinacalcet Hcl 30 Mg Tablet) 30 mg PO DAILY [facility] Last Admin: 10/01/20 13:17 Dose: 30 mg Documented by: Heparin Sodium (Porcine) (Heparin 10,000 Units/10 Ml Vial) 4,000 units IV X1 PRN PRN Reason: at start of dialysis treatment Hydralazine HCl (Hydralazine 50 Mg Tablet) 100 mg PO TID [facility] Last Admin: 10/02/20 05:07 Dose: 100 mg Documented by: Oxycodone HCl (Oxycodone 5 Mg Tablet) 5 mg PO Q6H PRN PRN PRN Reason: Pain Score 6-10 Last Admin: 10/02/20 05:08 Dose: 5 mg Documented by: Pantoprazole Sodium (Pantoprazole Sodium 40 Mg Tablet) 40 mg PO DAILY [facility] Last Admin: 10/01/20 13:17 Dose: 40 mg Documented by: Pyridoxine HCl (Pyridoxine Hcl 100 Mg Tablet) 100 mg PO DAILY [facility] Last Admin: 10/01/20 13:17 Dose: 100 mg Documented by: Sodium Chloride (0.9% Saline Lock 10 Ml Syringe) 10 - 40 ml IV UD PRN PRN Reason: SALINE FLUSH Last Admin: 09/30/20 02:58 Dose: 10 ml Documented by: Medical Necessity - Tobacco Use Smoking Status: Current every day smoker Tobacco Use: Cigarettes Assessment/Plan All Active Problems (Last Reviewed 09/29/20 @ 16:[address] Stiven Mo, DO) Anemia (Acute) Myoclonus (Acute) s/p chest catheters (Resolved) 70-year-old female with chronic kidney failure on peritoneal dialysis?need for HD dialysis, anemia status post temporary dialysis catheter 1. Tunnel dialysis catheter planned for 10/04/2020 1?2 PM. Patient had no questions about the procedure. We will plan for dialysis catheter removed prior to Sunday. Discussed with dialysis nurse sounds like the only do emergent cases on Sunday so would plan to remove today but she will also talk with Dr. Felix prior to removing. Anamika Mcneal M.D. Pager: [phone] [facility] [address] [place] [address], [address] [place] [address] Office: [phone] Procedure Criteria Procedure Type: Elective COVID Risk Discussion: The surgeon/proceduralist and patient have discussed in detail the risk of exposure to and/or potential harm posed by the COVID-19 virus with having a surgery/procedure at this time versus the risk of delaying the surgery/procedure. It is not possible to know either the risk of delaying the surgery or procedure or chance of getting an infection with perfect accuracy, but a joint decision was made between the patient and the surgeon/proceduralist to proceed at this time with the scheduled surgery/procedure as indicated on the consent form. Inpatient E&M: [id number] [facility] Hosp L2
--- NOTE | 2020-10-02 12:08 | DIALYSIS ---
HD X 4HOURS ON 3K BATH. UF-1000ML TOLERATED TX WELL. VITALS STABLE THROUGHOUT TX. EPOGEN 4000U GIVEN REPORT TO FLOOR RN
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
[2020-10-02] MEDS: Heparin 10,000 UNITS/10 ML Vial IV (12:36)
[2020-10-02] MEDS: Epoetin Alfa epbx 10,000 UNITS/ML 4000 UNIT IV (12:37)
[2020-10-02] MEDS: Calcium Carbonate 500 MG Tablet PO ×2 (12:39→20:13)
[2020-10-02] MEDS: Atenolol 25 MG Tablet PO (12:39)
[2020-10-02] MEDS: Pantoprazole Sodium 40 MG Tablet PO (12:39)
[2020-10-02] MEDS: Cinacalcet HCl 30 MG Tablet PO (12:39)
[2020-10-02] MEDS: Pyridoxine HCl 100 MG Tablet PO (12:43)
[2020-10-02] MEDS: Ondansetron 4 MG/2 ML Vial IV (17:38)
[2020-10-02] MEDS: 0.9% Saline Lock 10 ML Syringe IV (17:38)
[2020-10-02] MEDS: Acetaminophen 325 MG Tablet 650 MG PO (20:12)
[2020-10-03] VITALS (15 sets, daily range): BP systolic 133–185; BP diastolic 60–104; PULSE 70–91; RESP 16–20; TEMP 36.7–37.2; O2SAT 96–99
[2020-10-03] MEDS: oxyCODONE 5 MG Tablet PO ×3 (03:36→20:12)
[2020-10-03] MEDS: Acetaminophen 325 MG Tablet 650 MG PO (05:40)
[2020-10-03] MEDS: hydrALAZINE 50 MG Tablet 100 MG PO ×3 (05:40→20:35)
--- NOTE | 2020-10-03 08:20 | CT_ITS ---
STUDY: CT BRAIN WITHOUT CONTRAST REASON FOR EXAM: Female, 70 years old. Headache Sensitivity RADIATION DOSAGE (If Supplied By Facility): CTDIvol = ( 44.99 ) mGy, DLP = ( 829.85 ) mGycm TECHNIQUE: Transaxial CT imaging of the brain was performed without administration of intravenous contrast material. Individualized dose optimization techniques were used for this CT. COMPARISON: 14 September 2020 FINDINGS: Brain parenchyma is without focal lesions, mass effect, acute intracranial hemorrhage, extra parenchymal fluid collections, hydrocephalus or herniation. Periventricular and deep white matter is mildly hyperdense. The skull is intact. Appearance is stable since prior. CT/Brain/Head without Contrast IMPRESSION: 1. No acute or focal findings. 2. Stable appearance since prior. 3. Mild/moderate white matter chronic ischemic disease. Electronically Signed: Anurag Andrade MD at 12:40 EDT Tel , Service support ,
--- NOTE | 2020-10-03 08:41 | PCM.PN.SRG ---
Patient Problems: Active and Suspected Problems (Last Reviewed 09/29/20 @ 16:[address] Stiven Mo, DO) Anemia (Acute) Myoclonus (Acute) Subjective: Pt is getting CT head due to PAINTING, pt had dialysis yesterday and catheter is still in place. - Physical Exam Vitals/I&O's: Vital Signs Temp Pulse Resp BP Pulse Ox 99.0 F 78 18 151/67 H 96 10/03/20 05:35 10/03/20 07:00 10/03/20 05:35 10/03/20 05:35 10/03/20 05:35 Oxygen Delivery Method Room Air Weight: 173 lb 15.115 oz Body Mass Index (BMI) 25.5 Finger Stick Blood Glucose 153 Intake and Output for Last 24 Hours 10/01/20 10/02/20 10/03/20 23:59 23:59 23:59 Intake Total 1160 / 1360 350 / 350 120 / 120 Output Total 1000 / 1000 200 / 200 Balance 160 / 360 150 / 150 120 / 120 General: Alert, Oriented x3, Cooperative HEENT: Atraumatic Neck: - - right IJ dialysis catheter in place Lungs: Normal air movement Cardiovascular: Regular rate Microbiology Past 72 Hours 10/01/20 19:40 Mucosa - Nose SARS-CoV-2 Antigen (Rapid) - Final 10/01/20 15:20 Stool Stool Occult Blood (JOHNSON) - Final Occult Blood Positive Current Medications Acetaminophen (Acetaminophen 325 Mg Tablet) 650 mg PO Q6H PRN PRN PRN Reason: Pain Score 1-10/Temp > 100.7 F Last Admin: 10/03/20 05:40 Dose: 650 mg Documented by: Atenolol (Atenolol 25 Mg Tablet) 25 mg PO DAILY [facility] Last Admin: 10/02/20 12:39 Dose: 25 mg Documented by: Calcium Carbonate (Calcium Carbonate 500 Mg Tablet) 500 mg PO BID [facility] Last Admin: 10/02/20 20:13 Dose: 500 mg Documented by: Cinacalcet (Cinacalcet Hcl 30 Mg Tablet) 30 mg PO DAILY [facility] Last Admin: 10/02/20 12:39 Dose: 30 mg Documented by: Cyclobenzaprine HCl (Cyclobenzaprine Hcl 10 Mg Tablet) 10 mg PO TID PRN PRN PRN Reason: muscle spasm Heparin Sodium (Porcine) (Heparin 10,000 Units/10 Ml Vial) 4,000 units IV X1 PRN PRN Reason: at start of dialysis treatment Hydralazine HCl (Hydralazine 50 Mg Tablet) 100 mg PO TID [facility] Last Admin: 10/03/20 05:40 Dose: 100 mg Documented by: Ondansetron HCl (Ondansetron 4 Mg/2 Ml Vial) 4 mg IV Q8H PRN PRN PRN Reason: NAUSEA/VOMITING Last Admin: 10/02/20 17:38 Dose: 4 mg Documented by: Oxycodone HCl (Oxycodone 5 Mg Tablet) 5 mg PO Q6H PRN PRN PRN Reason: Pain Score 6-10 Last Admin: 10/03/20 03:36 Dose: 5 mg Documented by: Pantoprazole Sodium (Pantoprazole Sodium 40 Mg Tablet) 40 mg PO DAILY [facility] Last Admin: 10/02/20 12:39 Dose: 40 mg Documented by: Pyridoxine HCl (Pyridoxine Hcl 100 Mg Tablet) 100 mg PO DAILY [facility] Last Admin: 10/02/20 12:43 Dose: 100 mg Documented by: Sodium Chloride (0.9% Saline Lock 10 Ml Syringe) 10 - 40 ml IV UD PRN PRN Reason: SALINE FLUSH Last Admin: 10/02/20 17:38 Dose: 10 ml Documented by: Medical Necessity - Tobacco Use Smoking Status: Current every day smoker Tobacco Use: Cigarettes Assessment/Plan All Active Problems (Last Reviewed 09/29/20 @ 16:[address] Stiven Mo, DO) Anemia (Acute) Myoclonus (Acute) s/p chest catheters (Resolved) 70-year-old female with chronic kidney failure on peritoneal dialysis?need for HD dialysis, anemia status post temporary dialysis catheter 1. Pt still has temporary dialysis catheter in place-- would like it removed today for Tunnel dialysis catheter planned for 10/04/2020 1?2 PM. Patient had no questions about the procedure. I have a page to Dr. Renu Mcneal M.D. Pager: [phone] [facility] [address] [place] [address], [facility]patient [facility], [address] [place] [id number] Office: [phone] Inpatient E&M: [id number] [facility] Hosp L2
[2020-10-03] MEDS: Atenolol 25 MG Tablet PO (09:43)
[2020-10-03] MEDS: Cinacalcet HCl 30 MG Tablet PO (09:43)
[2020-10-03] MEDS: Pantoprazole Sodium 40 MG Tablet PO (09:43)
[2020-10-03] MEDS: Pyridoxine HCl 100 MG Tablet PO (09:44)
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
[2020-10-03] MEDS: cycloBENZAPRine HCl 10 MG Tablet PO ×2 (13:33→22:58)
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
[2020-10-03] MEDS: Acetaminophen 500 MG Tablet 1000 MG PO (17:06)
[2020-10-03] MEDS: Morphine 2 MG/ML Syringe 1 MG IV (17:22)
[2020-10-03] MEDS: Nitroglycerin (INPATIENT USE) 0.4 MG TAB.SUBL SL (17:25)
--- NOTE | 2020-10-03 17:28 | EKG12_ITS ---
Test Reason : CP Blood Pressure : / mmHG Vent. Rate : 085 BPM Atrial Rate : 085 BPM P-R Int : 156 ms QRS Dur : 076 ms QT Int : 456 ms P-R-T Axes : 071 033 020 degrees QTc Int : 542 ms Normal sinus rhythm T wave abnormality, consider anterior ischemia Prolonged QT Abnormal ECG Confirmed by TERE LEMON, JAN ([id number]), electronic news gathering editor DEANNA LEMUS ([id number]) on 10/08/2020 3:11:07 PM Referred By: YULI Confirmed By:JAN CARRANZA MD
--- NOTE | 2020-10-03 17:48 | NURSING ---
1700VS 98.6f, 168/83, 98% RA, 18, 88 HR, patient complaining of intense excrutiating 10/10 pain in right ear described as pressure and something inside. Along with pain in ear patient also describing pain in jaw that described as fire. Upon assessing patient twitching to right side of face and occasional hand twitching noted. Patient is found to be tearful with moderate anxiety related to her pain. Chest pain also relayed to and EKG ordered per protocol. MD made aware of clinical findings. Orders given and carried out (refer to mar). VS 1728 98%, 89 HR, 176/89 1738 99%, 84 HR, 177/97 Upon administration of Morphine, patient noted to relax more, still with mild anxiety related to symptoms and pain. Will continue to notify MD of any changes and carry out orders appropriately.
--- NOTE | 2020-10-03 19:43 | PCM.PN.BLA ---
Progress Note Discussed insertion of dialysis catheter with Dr. Mcneal. Expectation is that new dialysis catheter may be placed by General Surgery on Monday, October 05, 2020 after Tunnel dialysis catheter has to be pulled out by Dialysis nurse on Sunday, October 04, 2020. STROKE Vital Signs/Narrative: Vital Signs Pulse BP 10/03/20 17:25 91 168/93 H
--- NOTE | 2020-10-03 20:23 | NURSING ---
This RN spoke with dialysis nurse Lisseth at this time to update on pt. needing dialysis first on 10/04, and the temp IJ line will need to be pulled per Dr. Mcneal's orders. Lisseth verbalizes understanding.
[2020-10-03] MEDS: Calcium Carbonate 500 MG Tablet PO (20:36)
[2020-10-04] VITALS (25 sets, daily range): BP systolic 134–185; BP diastolic 82–123; PULSE 76–120; RESP 12–40; TEMP 35.9–37.3; O2SAT 94–100
[2020-10-04] MEDS: hydrALAZINE 20 MG/ML Vial 10 MG IV ×2 (00:01→06:16)
[2020-10-04] MEDS: 0.9% Saline Lock 10 ML Syringe IV (00:02)
[2020-10-04] MEDS: Acetaminophen 325 MG Tablet 650 MG PO (00:02)
[2020-10-04] MEDS: LORazepam 2 MG/ML Syringe 1 MG IV (01:01)
[2020-10-04 01:20] LABS: Bedside Glucose 93 mg/dL (70-110)
[2020-10-04 01:31] LABS: Allen Test Positive; Base Excess -3 mmol/L (-2 to +2); Bicarbonate 20.3 mmol/L (22-26); Blood Gas Specimen Type ART; FI02 21; Mode BiLevel; O2 Delivery Device BiPAP; PEEP 5; PO2 72 mmHG (75-100); SITE L Radial; SO2 96 % (95-99); Total Carbon Dioxide 21 mmol/L; pH 7.48 (7.35-7.45)
[2020-10-04] MEDS: hydrALAZINE 50 MG Tablet 100 MG PO ×3 (04:39→21:22)
--- NOTE | 2020-10-04 07:00 | EKG12_ITS ---
Test Reason : ELEVATED TROP Blood Pressure : / mmHG Vent. Rate : 079 BPM Atrial Rate : 079 BPM P-R Int : 164 ms QRS Dur : 076 ms QT Int : 514 ms P-R-T Axes : 072 014 -02 degrees QTc Int : 589 ms Normal sinus rhythm T wave abnormality, consider anterior ischemia Prolonged QT Abnormal ECG When compared with ECG of 03-OCT-2020 16:51, MANUAL COMPARISON REQUIRED, DATA IS UNCONFIRMED Confirmed by TERE LEMON, JAN ([id number]), associate entertainment editor DEANNA LEMUS ([id number]) on 10/08/2020 3:06:51 PM Referred By: DR DRIVER Confirmed By:JAN CARRANZA MD
--- NOTE | 2020-10-04 09:00 | PN.SURG_ITS ---
Patient Problems: Active and Suspected Problems (Last Reviewed 09/29/20 @ 16:[address] Stiven Mo, DO) Anemia (Acute) Myoclonus (Acute) Subjective: Patient is getting dialysis this morning. We will plan for tunneled dialysis catheter tomorrow about 1130. - Physical Exam Vitals/I&O's: Vital Signs Temp Pulse Resp BP Pulse Ox 98.6 F 78 25 H 164/92 H 99 10/04/20 06:03 10/04/20 07:00 10/04/20 06:03 10/04/20 06:16 10/04/20 06:03 Oxygen Flow Rate (L/min) 2 Oxygen Delivery Method Room Air Weight: 162 lb 4.163 oz Body Mass Index (BMI) 25.5 Finger Stick Blood Glucose 153 Intake and Output for Last 24 Hours 10/02/20 10/03/20 10/04/20 23:59 23:59 23:59 Intake Total 350 / 350 480 / 480 400 / 400 Output Total 200 / 200 Balance 150 / 150 480 / 480 400 / 400 General: Alert, Oriented x3, Cooperative, No apparent distress HEENT: - - Right IJ temporary dialysis catheter in place Microbiology Past 72 Hours 10/01/20 19:40 Mucosa - Nose SARS-CoV-2 Antigen (Rapid) - Final 10/01/20 15:20 Stool Stool Occult Blood (JOHNSON) - Final Occult Blood Positive Laboratory Results 10/03/20 17:29: Troponin I 0.083 H 10/03/20 19:58: Troponin I 0.077 H 10/03/20 22:50: Troponin I 0.139 H 10/04/20 00:16: POC Glucose 93 10/04/20 02:22: Specimen Type ART, Sample Site L Radial, pH 7.48 H, Bicarbonate Actual 20.3 L, Total CO2 21, Base Excess -3 L, O2 Saturation 96, O2 % 21, ABG pCO2 27.0 L, ABG pO2 72 L, Evens Test Positive, O2 Delivery Device BiPAP, Vent Mode BiLevel, POC PEEP 5 10/04/20 05:08: Troponin I 0.308 H Current Medications Acetaminophen (Acetaminophen 325 Mg Tablet) 650 mg PO Q6H PRN PRN PRN Reason: Pain Score 1-10/Temp > 100.7 F Last Admin: 10/04/20 00:02 Dose: 650 mg Documented by: Atenolol (Atenolol 25 Mg Tablet) 25 mg PO DAILY [facility] Last Admin: 10/03/20 09:43 Dose: 25 mg Documented by: Calcium Carbonate (Calcium Carbonate 500 Mg Tablet) 500 mg PO BID [facility] Last Admin: 10/03/20 20:36 Dose: 500 mg Documented by: Cinacalcet (Cinacalcet Hcl 30 Mg Tablet) 30 mg PO DAILY [facility] Last Admin: 10/03/20 09:43 Dose: 30 mg Documented by: Cyclobenzaprine HCl (Cyclobenzaprine Hcl 10 Mg Tablet) 10 mg PO TID PRN PRN PRN Reason: muscle spasm Last Admin: 10/03/20 22:58 Dose: 10 mg Documented by: Heparin Sodium (Porcine) (Heparin 10,000 Units/10 Ml Vial) 4,000 units IV X1 PRN PRN Reason: at start of dialysis treatment Hydralazine HCl (Hydralazine 50 Mg Tablet) 100 mg PO TID [facility] Last Admin: 10/04/20 04:39 Dose: 100 mg Documented by: Hydralazine HCl (Hydralazine 20 Mg/Ml Vial) 10 mg IV Q6H PRN PRN PRN Reason: SBP > 160 Last Admin: 10/04/20 06:16 Dose: 10 mg Documented by: Nitroglycerin (Nitroglycerin (Inpatient Use) 0.4 Mg Tab.Subl) 0.4 mg SL Q5M PRN PRN Reason: CARDIAC/CHEST PAIN Last Admin: 10/03/20 17:25 Dose: 1 tab Documented by: Ondansetron HCl (Ondansetron 4 Mg/2 Ml Vial) 4 mg IV Q8H PRN PRN PRN Reason: NAUSEA/VOMITING Last Admin: 10/02/20 17:38 Dose: 4 mg Documented by: Oxycodone HCl (Oxycodone 5 Mg Tablet) 5 mg PO Q6H PRN PRN PRN Reason: Pain Score 6-10 Last Admin: 10/03/20 20:12 Dose: 5 mg Documented by: Pantoprazole Sodium (Pantoprazole Sodium 40 Mg Tablet) 40 mg PO DAILY [facility] Last Admin: 10/03/20 09:43 Dose: 40 mg Documented by: Pyridoxine HCl (Pyridoxine Hcl 100 Mg Tablet) 100 mg PO DAILY [facility] Last Admin: 10/03/20 09:44 Dose: 100 mg Documented by: Sodium Chloride (0.9% Saline Lock 10 Ml Syringe) 10 - 40 ml IV UD PRN PRN Reason: SALINE FLUSH Last Admin: 10/04/20 00:02 Dose: 10 ml Documented by: Medical Necessity - Tobacco Use Smoking Status: Current every day smoker Tobacco Use: Cigarettes Assessment/Plan All Active Problems (Last Reviewed 09/29/20 @ 16:[address] Stiven Mo, DO) Anemia (Acute) Myoclonus (Acute) s/p chest catheters (Resolved) 70-year-old female with chronic kidney failure on peritoneal dialysis?need for HD dialysis, anemia status post temporary dialysis catheter 1. Pt still has temporary dialysis catheter in place--And is currently getting dialysis this morning. We will plan for removal after dialysis and tunneled dialysis catheter placed tomorrow 10/05/2020 about 1130. Anamika Mcneal M.D. Pager: [phone] [facility] [address] [place] [address], [address] [place] [address] Office: [phone] Procedure Criteria Procedure Type: Elective COVID Risk Discussion: The surgeon/proceduralist and patient have discussed in detail the risk of exposure to and/or potential harm posed by the COVID-19 virus with having a surgery/procedure at this time versus the risk of delaying the surgery/procedure. It is not possible to know either the risk of delaying the surgery or procedure or chance of getting an infection with perfect accuracy, but a joint decision was made between the patient and the surgeon/proceduralist to proceed at this time with the scheduled surgery/procedure as indicated on the consent form.
--- NOTE | 2020-10-04 09:16 | CASEMGMT ---
MARIA GUADALUPE faxed updates to [facility]. Plan: d/c back to [facility] when medically ready and insurance approves. Evy Paredes MSW INTERNETWORKING TECHNICIAN
--- NOTE | 2020-10-04 11:12 | PN_ITS ---
Patient Problems: Active and Suspected Problems (Last Reviewed 09/29/20 @ 16:[address] Stiven Mo, DO) Anemia (Acute) Myoclonus (Acute) Subjective: Patient is a 70-year-old female resting in bed while being dialyzed, alert and oriented x3. Patient reports no acute pain. Objective: Clinical Impression(s) from Imaging Studies Chest X-Ray 09/29/20 13:00 IMPRESSION: Stable blunting of the left costophrenic angle with a mild degree of increased markings at the left lung base suggestive of mild scarring. Electronically Signed: Lopez Barraza MD at 13:16 EDT , Service support , Chest X-Ray 09/29/20 17:55 IMPRESSION: 1. Normal appearance of right internal jugular approach dialysis catheter with tip in the upper right atrium. 2. No pneumothorax. 3. Mild cardiomegaly, no pulmonary edema. Electronically Signed: Anurag Andrade MD at 18:50 EDT Tel , Service support , Brain CT 10/03/20 08:20 IMPRESSION: 1. No acute or focal findings. 2. Stable appearance since prior. 3. Mild/moderate white matter chronic ischemic disease. Electronically Signed: Anurag Andrade MD at 12:40 EDT Tel , Service support , Vitals/I&O's: Vital Signs Temp Pulse Resp BP Pulse Ox 98.2 F 76 26 H 164/87 H 100 10/04/20 10:57 10/04/20 10:57 10/04/20 10:57 10/04/20 10:57 10/04/20 10:57 Oxygen Flow Rate (L/min) 2 Oxygen Delivery Method Nasal Cannula Weight: 162 lb 4.163 oz Body Mass Index (BMI) 25.5 Finger Stick Blood Glucose 153 Intake and Output for Last 24 Hours 10/02/20 10/03/20 10/04/20 23:59 23:59 23:59 Intake Total 350 / 350 480 / 480 400 / 400 Output Total 200 / 200 Balance 150 / 150 480 / 480 400 / 400 General: Alert, Oriented x3, Cooperative HEENT: Atraumatic, PERRLA, EOMI, Normocephalic Neck: Supple, No JVD, Negative Carotid Bruits Lungs: Clear to auscultation, Normal air movement Cardiovascular: Regular rate Abdomen: Bowel Sounds Present, Soft, Non Tender Extremities: No edema, Capillary Refill Less than 3 Seconds Skin: No rashes, No breakdown Musculoskeletal: No Tenderness to Palpation of Joints or Extremities Neurological: Cranial nerves II-XII grossly intact Psych/Mental Status: Normal Affect, Appropriate Microbiology Past 72 Hours 10/01/20 19:40 Mucosa - Nose SARS-CoV-2 Antigen (Rapid) - Final 10/01/20 15:20 Stool Stool Occult Blood ([facility]) - Final Occult Blood Positive Laboratory Results 10/03/20 17:29: Troponin I 0.083 H 10/03/20 19:58: Troponin I 0.077 H 10/03/20 22:50: Troponin I 0.139 H 10/04/20 00:16: POC Glucose 93 10/04/20 02:22: Specimen Type ART, Sample Site L Radial, pH 7.48 H, Bicarbonate Actual 20.3 L, Total CO2 21, Base Excess -3 L, O2 Saturation 96, O2 % 21, ABG pCO2 27.0 L, ABG pO2 72 L, Evens Test Positive, O2 Delivery Device BiPAP, Vent Mode BiLevel, POC PEEP 5 10/04/20 05:08: Troponin I 0.308 H 10/04/20 09:10: Troponin I 0.297 H Current Medications Acetaminophen (Acetaminophen 325 Mg Tablet) 650 mg PO Q6H PRN PRN PRN Reason: Pain Score 1-10/Temp > 100.7 F Last Admin: 10/04/20 00:02 Dose: 650 mg Documented by: Atenolol (Atenolol 25 Mg Tablet) 25 mg PO DAILY COUNT INCLUDES THE [facility] Last Admin: 10/03/20 09:43 Dose: 25 mg Documented by: Calcium Carbonate (Calcium Carbonate 500 Mg Tablet) 500 mg PO BID COUNT INCLUDES THE [facility] Last Admin: 10/03/20 20:36 Dose: 500 mg Documented by: Cinacalcet (Cinacalcet Hcl 30 Mg Tablet) 30 mg PO DAILY COUNT INCLUDES THE [facility] Last Admin: 10/03/20 09:43 Dose: 30 mg Documented by: Cyclobenzaprine HCl (Cyclobenzaprine Hcl 10 Mg Tablet) 10 mg PO TID PRN PRN PRN Reason: muscle spasm Last Admin: 10/03/20 22:58 Dose: 10 mg Documented by: Heparin Sodium (Porcine) (Heparin 10,000 Units/10 Ml Vial) 4,000 units IV X1 PRN PRN Reason: at start of dialysis treatment Hydralazine HCl (Hydralazine 50 Mg Tablet) 100 mg PO TID COUNT INCLUDES THE [facility] Last Admin: 10/04/20 04:39 Dose: 100 mg Documented by: Hydralazine HCl (Hydralazine 20 Mg/Ml Vial) 10 mg IV Q6H PRN PRN PRN Reason: SBP > 160 Last Admin: 10/04/20 06:16 Dose: 10 mg Documented by: Nitroglycerin (Nitroglycerin (Inpatient Use) 0.4 Mg Tab.Subl) 0.4 mg SL Q5M PRN PRN Reason: CARDIAC/CHEST PAIN Last Admin: 10/03/20 17:25 Dose: 1 tab Documented by: Ondansetron HCl (Ondansetron 4 Mg/2 Ml Vial) 4 mg IV Q8H PRN PRN PRN Reason: NAUSEA/VOMITING Last Admin: 10/02/20 17:38 Dose: 4 mg Documented by: Oxycodone HCl (Oxycodone 5 Mg Tablet) 5 mg PO Q6H PRN PRN PRN Reason: Pain Score 6-10 Last Admin: 10/03/20 20:12 Dose: 5 mg Documented by: Pantoprazole Sodium (Pantoprazole Sodium 40 Mg Tablet) 40 mg PO DAILY COUNT INCLUDES THE [facility] Last Admin: 10/03/20 09:43 Dose: 40 mg Documented by: Pyridoxine HCl (Pyridoxine Hcl 100 Mg Tablet) 100 mg PO DAILY COUNT INCLUDES THE [facility] Last Admin: 10/03/20 09:44 Dose: 100 mg Documented by: Sodium Chloride (0.9% Saline Lock 10 Ml Syringe) 10 - 40 ml IV UD PRN PRN Reason: SALINE FLUSH Last Admin: 10/04/20 00:02 Dose: 10 ml Documented by: STROKE Vital Signs/Narrative: Vital Signs Temp Pulse Resp BP Pulse Ox 04/05/21 10:57 98.2 F 76 26 H 164/87 H 100 10/04/20 09:02 98.2 F 78 26 H 163/93 H 99 Medical Necessity - Tobacco Use Smoking Status: Current every day smoker Tobacco Use: Cigarettes Assessment/Plan All Active Problems (Last Reviewed 09/29/20 @ 16:[address] Stiven Mo, DO) Anemia (Acute) Myoclonus (Acute) s/p chest catheters (Resolved) Patient is a 70-year-old female who was admitted to the ED on 09/29/2020 with a chief complaint of myoclonic jerks throughout her body. Patient admitted for myoclonus, anemia, ESRD. Patient suffered an acute pain episode last night, which she reported in her ear, behind her eyeball and throughout her jaw. This attack developed into chest pain which prompted EKG and troponin to be ordered as well as nitroglcyerin and morphine to be ordered. EKG showed no ischemic changes. Troponins were only midly elevated and did not warrant further e xamination. Patient appears to be recovered from her pain episode on my examination patient and was resting in bed while being dialyzed. Dialysis will be completed today, current catheter will be removed and final tunnel catheter to be placed on 10/05/2020. Brain CT ordered yesterday was unremarkable and showed no evidence of acute ischemia or infarction. 1) Myoclonus Assessment - No jerking evident on physical exam - A&O x3, no loss of consciousness reported - May be related to failing peritoneal dialysis and current medications Plan - Resolved - Continue to hold duloxetine, gabapentin and mirtazapine 2) Anemia Assessment - Hemoglobin 7.6 on 10/02/2020, trending up - Positive Hemoccult stools - Patient chronically anemic; EGD in April 2020 revealed moderate gastritis - Patient already being managed on PPI - Iron, TIBC, iron saturation unremarkable - B12 unremarkable - Ferritin 789 Plan - Continue to monitor 3) ESRD Assessment - Being switched over from peritoneal to hemodialysis per nephrology Plan - Tunneled hemodialysis catheter to be placed on 10/04/2020 - Next dialysis appointment scheduled for 10/05/2020 4) Hypertension Assessment -157/70, stable Plan - Continue home medications including hydralazine and atenolol - Hold parameters in place 5) Stroke history Assessment - On apixaban at home which is currently being held - Brain CT on 10/03/2020 demonstrated no evidence of acute ischemia or infarction. Plan - Continue to hold due to anemia 6) Chest pain Assessment - EKG ordered on 10/03/2020 showed no evidence of acute ischemia - Nitroglycerin and morphine ordered - Believe chest pain was the result of patient aggravation related to her headache - Troponins only slightly above normal - No acute pain evident on my physical exam Plan -Continue to monitor DVT Prophylaxis -SCDs Patient seen by Po Trinidad PA-C, under the supervision of Dr. Wakefield.
--- NOTE | 2020-10-04 12:21 | CASEMGMT ---
POA/LW forms both scanned into summary tab of [facility] under Power of [employer], Healthcare. Jose Kaufman is listed as healthcare POA. JENIFER Sherman
[2020-10-04] MEDS: oxyCODONE 5 MG Tablet PO (12:59)
[2020-10-04] MEDS: Calcium Carbonate 500 MG Tablet PO ×2 (13:00→21:23)
[2020-10-04] MEDS: Pyridoxine HCl 100 MG Tablet PO (13:00)
[2020-10-04] MEDS: Atenolol 25 MG Tablet PO (13:00)
[2020-10-04] MEDS: Cinacalcet HCl 30 MG Tablet PO (13:00)
[2020-10-04] MEDS: Pantoprazole Sodium 40 MG Tablet PO (13:00)
[2020-10-04] MEDS: Epoetin Alfa epbx 10,000 UNITS/ML 10000 UNIT IV (13:01)
--- NOTE | 2020-10-04 13:55 | DIALYSIS ---
1210: HD x 3.5 hours complete. Tolerated tx well. Ran on 3k bath. UF of 2000ml. Used temporary right neck dialysis catheter. Lumens closed with 0.9% NS post tx. Caps placed. 1230 Dressing was removed from temporary right neck dialysis catheter. Exit site was disinfected with chloroprep. Suture was removed (only one suture in place prior to removal). Dialysis catheter removed. Pressure applied x 8 minutes. Hemostasis achieved. Fresh gauze and dressing applied. After catheter removal the pt c/o severe right ear pain. REGGIE Lewis was notified. This has been an ongoing issue since the line was placed. Ear pain was improving after I finished holding pressure to the exit site. 1240 Pd catheter dressing changed. No problems noted. Report was given to REGGIE Lewis. See tx sheet for more details.
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
[2020-10-05] VITALS (15 sets, daily range): BP systolic 116–147; BP diastolic 71–98; PULSE 65–80; RESP 16–20; TEMP 36.6–37.1; O2SAT 95–100; BMI 23.9; BMI 23.8
[2020-10-05] MEDS: oxyCODONE 5 MG Tablet PO (03:11)
[2020-10-05 04:56] LABS: Absolute Neutrophil Count 5.7 X10^3/uL (2.0-7.7); Basophil# 0.03 X10^3/uL; Basophil% 0.4 % (0-1); Eosinophil# 0.24 X10^3/uL; Hematocrit 25.2 % (37-47); Hemoglobin 7.7 g/dL (12.0-15.0); Mean Corp Hgb Conc 30.6 g/dL (32-36); Mean Corpuscular Hgb 30.7 pg (27.0-32.0); Mean Corpuscular Volume 100.4 fL (81-99); Monocyte# 0.81 X10^3/uL; Monocyte% 10.3 % (0-10); NRBC Flagged by Analyzer 0.4 % (0-5); Neutrophil # 5.68 X10^3/uL (2.7-7.7); Platelet Count 192 K/mm3 (150-450); RBC Distribution Width CV 14.9 % (11.6-14.6); RBC Distribution Width SD 53.2 fl (35.1-43.9); Red Blood Count 2.51 M/mm3 (4.2-5.4); White Blood Count 7.9 K/mm3 (4.4-11.0)
[2020-10-05 05:09] LABS: International Normalized Ratio 1.2; Partial Thromboplast Time 29.3 Seconds (24.1-36.2); Prothrombin Time (Protime)PT. 14.9 SECONDS (11.7-14.9)
[2020-10-05 05:18] LABS: Anion Gap 7 (5-15); BUN 12 mg/dL (7-18); BUN/Creat Ratio 3.1 RATIO (10-20); Calcium,Total 7.6 mg/dL (8.5-10.1); Chloride 105 mmol/L (98-107); Creatinine, Serum 3.84 mg/dL (0.55-1.02); EST Glomerular Filtration Rate 12 mL/min (>60); Est Glom Filt Rate - Afr Amer 15 mL/min (>60); Estimated Creatinine Clearance 14.65 ml/min; Glucose 63 mg/dL (74-106); Potassium 3.8 mmol/L (3.5-5.1); Sodium Level 140 mmol/L (136-145)
--- NOTE | 2020-10-05 05:55 | EKG12_ITS ---
Test Reason : AM EKG Blood Pressure : / mmHG Vent. Rate : 067 BPM Atrial Rate : 067 BPM P-R Int : 170 ms QRS Dur : 100 ms QT Int : 558 ms P-R-T Axes : 054 -50 135 degrees QTc Int : 589 ms Normal sinus rhythm Left anterior fascicular block Anterior infarct , age undetermined T wave abnormality, consider lateral ischemia Prolonged QT Abnormal ECG When compared with ECG of 04-OCT-2020 06:15, MANUAL COMPARISON REQUIRED, DATA IS UNCONFIRMED Confirmed by TERE LEMON, JAN ([id number]), marketing editor DEANNA LEMUS ([id number]) on 10/08/2020 3:05:46 PM Referred By: YULI Confirmed By:JAN CARRANZA MD
[2020-10-05] MEDS: hydrALAZINE 50 MG Tablet 100 MG PO ×2 (06:01→14:28)
--- NOTE | 2020-10-05 09:50 | CASEMGMT ---
Per Dr. Sears, pt is ok to discharge today after tunnel cath today and does not need dialysis today prior to discharge. Ian LERMA aware, voices understanding. Tank De La Paz to be updated. Leonides PAREDES CM
[2020-10-05 10:04] LABS: Hemoglobin A1c < 3.8 % (3.8-5.6)
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
--- NOTE | 2020-10-05 10:37 | PCM.TXEXTCAR ---
- Diet 10/05/20 00:42 NPO [Diet: Nothing Per Oral] Type of Dietary Supplement:: Nepro Is pt able to select menu?: Yes Diet Comments: 120ml nepro TID w/ meals - Routine Orders/Code Status Code Status: Full Code - Wound(s) ABD Wound Type: scarring ABD RUQ Wound Type: Surgical Incision RIJ Wound Type: Puncture abd LUQ Wound Type: peritoneal dialysis catheter - Allergies/Procedures Done in Hospital Allergies/Adverse Reactions: Allergies No Known Allergies Allergy (Verified 09/29/20 12:37) - Type of Care/Length of Stay Estimated LOS: More Than 30 Days Type of Care Needed: Skilled Rehab Potential: Fair Prognosis: Fair - Additional Orders/Day of Discharge Day of Discharge: 10/05/20 - Dietary and Speech Recommendations Dietitian Recommendations/Changes: Continue renal-general diet. 120ml Nepro w/ meals TID. Carb-controlled as needed--blood glucose levels do not warrant currently - Follow Up Care Primary Care Physician: Po Magaña MD [Primary Care Provider] - Please follow up with your Primary Care Physician in: Within the next 2 weeks
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
[2020-10-05] MEDS: Cefazolin 2 GM in 0.9% Normal Saline 100 ML IV (11:45)
[2020-10-05] MEDS: Lidocaine 1% (30 ml sdv) 30 ML Vial (12:28)
[2020-10-05] MEDS: Bupiv/Epi 0.25% 30 ML Vial (12:28)
[2020-10-05] MEDS: Heparin 10,000 UNITS/10 ML Vial 10000 UNITS (12:47)
--- NOTE | 2020-10-05 12:52 | OP.PCM_ITS ---
Report of Operation Date of Procedure: 10/05/20 Pre-Operative Diagnosis: Need for dialysis access, chronic renal failure Post-Operative Diagnosis: Same Surgery/Procedure Performed:: Insertion of right IJ tunneled dialysis catheter Type of Anesthesia:: Local MAC Anesthesiologist: Stiven Albarran Special Medications: Ancef 2 g IV x1 Estimated Blood Loss (mL): < 10 cc Fluids Replaced: 200 cc Description of Procedure: After informed consent was given, the patient was brought to the operating room and placed in the supine position. Appropriate time out protocol was followed. She was then given IV conscious sedation for anesthesia. The patient's right upper chest and neck were then prepped with a surgical skin preparation and sterile surgical drapes were placed. After proper landmarks were ascertained, the skin at the upper right chest area was then infiltrated with 1:1 mixture of 1% lidocaine with epinephrine and 0.5% maricaine. A needle trocar was then inserted into the right internal jugular vein with ultrasound guidance-multiple vessels were viewed with u/s and the right IJ was chosen-- and there was good aspiration of venous blood. A wire was then threaded into the needle trocar and this was visualized under fluoroscopy to ensure that the wire was in the superior vena cava. Once this was done, then the needle trocar was removed. A small incision was made with an 11 blade knife at the wire entrance site. The dilator x2 with the introducer sheath attached was then placed over the wire into the right internal jugular vein via the Seldinger technique and this was visualized under fluoroscopy. Next the introducer and sheath were in proper position as visualized by fluoroscopy. The location of the cuffed was estimated on the skin, an incision was made with a 15 blade scalpel. The 14.5 Fr x 19 cm Palindrome dual lumen (Lot [id number] reference [id number]) was tunneled from the chest incision to the right neck incision. The sheath was removed. The catheter was placed through the introducer and was positioned with its tip at the junction of the superior vena cava and the right atrium as visualized under fluoroscopy. The cuff of the catheter was in the subcutaneous tissue. The catheter flushed and apryl well with saline. Catheter was also flushed with 1.6 cc of 1-10,000 of heparin. Hemostasis was assured. Silver dressing was placed at the catheter exit site. Catheter was sutured with 3-0 nylon sutures. The neck incision was sutured with interrupted 3-0 Vicryl in terrupted sutures x2 and Steri-Strips were placed. A large OpSite was placed over the catheter site and a small OpSite over the neck incision. The patient tolerated the procedure well. Implants Used:14.5 Fr x 19 cm Palindrome dual lumen (Lot [id number] reference [id number] Grafts/Implants Used: 14.5 Fr x 19 cm Palindrome dual lumen (Lot [id number] reference [id number] - Complications none
--- NOTE | 2020-10-05 13:17 | RAD_ITS ---
STUDY: X-RAY CHEST REASON FOR EXAM: Female, 70 years old. DIALYSIS CATH PLACEMENT TECHNIQUE: Single AP portable view of the chest. COMPARISON: 09/29/2020 FINDINGS: EKG leads overlie the chest. Since the previous study, a right subclavian dialysis catheter is in place, tip is in the distal SVC, no pneumothorax. The lungs are clear and expanded. There is no demonstrated pleural abnormality. Normal size heart. Normal mediastinum and farhan. Normal visualized pulmonary arteries. Normal visualized aortic arch and descending thoracic aorta. There are diffuse degenerative changes of the visualized thoracic spine. Normal visualized ribs, clavicles, and shoulders. There is no demonstrated abnormality of the visualized soft tissue structures of the upper abdomen. RAD/CXR for Line Placement IMPRESSION: Insertion of a right subclavian dialysis catheter. Tip is in the distal SVC, no pneumothorax No acute pulmonary process, lungs show no interval change Electronically Signed: Sebastien Aquino MD at 13:26 EDT , Service support ,
--- NOTE | 2020-10-05 14:24 | CASEMGMT ---
Patient is ready for discharge. attempted to arrange wheelchair transport with [employer] ( per insurance's requirement). However, the benefits representative spoke with said they do not provide wheelchairs for patient's the patients have to have their own wheelchair. MARIA GUADALUPE called Hawa with [facility] to see if their transportation can mixing picker tender patient. She said they can and will be at [facility] in 15 min and will be at the main entrance. SW called patient's son and notified him. MARIA GUADALUPE also notified elementary secretary who notified RN who notified patient. Orders were faxed to [facility]. Plan: d/c back to [facility] under skilled level of care. [facility] transported patient via wheelchair van. Evy GONZALEZ
[2020-10-05] MEDS: Pyridoxine HCl 100 MG Tablet PO (14:28)
[2020-10-05] MEDS: Pantoprazole Sodium 40 MG Tablet PO (14:28)
[2020-10-05] MEDS: Calcium Carbonate 500 MG Tablet PO (14:28)
[2020-10-05] MEDS: Atenolol 25 MG Tablet PO (14:28)
[2020-10-05] MEDS: Cinacalcet HCl 30 MG Tablet PO (14:28)
--- NOTE | 2020-10-05 14:43 | NURSING ---
Report called to PSYCHIATRIC nurse Low who denies any further questions at this time.
== END 2020-10-05 14:50 | disposition skilled nursing facility (03) | DRG 673 ==
LOC: ED 12:54 → PCU 16:11
PROVIDERS: Anesthesiology; Hospitalist; Internal Medicine Nephrology; Nurse Practitioner Family; Surgery; Emergency Provider Emergency Medicine; PCP Family Medicine; Visit Provider Internal Medicine
PROC: 0JH63XZ Insertion of Tunneled Vascular Access Device into Chest Subcutaneous Tissue and Fascia, Percutaneous Approach (ICD-10-PCS; principal; 2020-10-05 11:15)
DX: I12.0 Hypertensive chronic kidney disease with stage 5 chronic kidney disease or end stage renal disease (principal); N18.6 End stage renal disease; T85.611A Breakdown (mechanical) of intraperitoneal dialysis catheter, initial encounter; D63.1 Anemia in chronic kidney disease; G25.3 Myoclonus; G89.29 Other chronic pain; E87.5 Hyperkalemia; F32.9 Major depressive disorder, single episode, unspecified; F41.9 Anxiety disorder, unspecified; J45.909 Unspecified asthma, uncomplicated; K21.9 Gastro-esophageal reflux disease without esophagitis; E11.22 Type 2 diabetes mellitus with diabetic chronic kidney disease; F17.210 Nicotine dependence, cigarettes, uncomplicated; E78.5 Hyperlipidemia, unspecified; I25.2 Old myocardial infarction; G25.81 Restless legs syndrome; K29.50 Unspecified chronic gastritis without bleeding; G44.209 Tension-type headache, unspecified, not intractable; M79.10 Myalgia, unspecified site; T43.215A Adverse effect of selective serotonin and norepinephrine reuptake inhibitors, initial encounter; T43.025A Adverse effect of tetracyclic antidepressants, initial encounter; K66.0 Peritoneal adhesions (postprocedural) (postinfection); W34.00XA Accidental discharge from unspecified firearms or gun, initial encounter; I20.9 Angina pectoris, unspecified; E87.70 Fluid overload, unspecified; M54.16 Radiculopathy, lumbar region; M79.605 Pain in left leg; Z45.2 Encounter for adjustment and management of vascular access device; Z99.2 Dependence on renal dialysis; Z79.01 Long term (current) use of anticoagulants; Z79.899 Other long term (current) drug therapy; Z86.711 Personal history of pulmonary embolism; Z87.828 Personal history of other (healed) physical injury and trauma; Z86.718 Personal history of other venous thrombosis and embolism; Z86.73 Personal history of transient ischemic attack (TIA), and cerebral infarction without residual deficits
CPT/HCPCS: 36415; 36600; 70450; 71045; 72110; 72170; 74176; 76000; 80048; 80053; 80069; 81001; 82274; 82330; 82607; 82728; 82803; 82962; 83036; 83540; 83550; 84439; 84443; 84481; 84484; 85014; 85018; 85025; 85610; 85730; 86850; 86900; 86901; 86920; 86922; 87077; 87086; 87088; 87186; 87426; 90937; 93005; 94002; 96372; 96374; 96375; 97110; 97162; 97165; 97530; 97535; 97802; 99284; 99285; J7030; J7040; J7120; P9016; A4216; C1750; C1752; G0257; J2405; Q5106

== ENCOUNTER 2020-10-08 10:57 | Observation (INO) | payer MEDICARE, MEDICAID, SELFPAY ==
[2020-10-05 08:33] VITALS: BMI 23.8
[2020-10-08] VITALS (12 sets, daily range): BP systolic 119–167; BP diastolic 66–94; PULSE 64–73; RESP 16–18; TEMP 36.3–36.6; O2SAT 98–99; BMI 23.5; BMI 24.4
--- NOTE | 2020-10-08 11:10 | RAD_ITS ---
EXAM: XR CHEST, 1 VIEW CLINICAL INDICATION: Chest pain. TECHNIQUE: Frontal view of the chest. This report was created using [employer] report generation technology. COMPARISON: 10/05/2020. FINDINGS: LUNGS AND PLEURAL SPACES: Bibasilar subsegmental atelectases are unchanged. Bilateral pleural fluid are unchanged. No pneumothorax. HEART: Unremarkable. Cardiac silhouette not enlarged. MEDIASTINUM: Central airways and mediastinal contour are unremarkable. BONES/JOINTS: Unremarkable. SOFT TISSUES: Unremarkable. TUBES, LINES AND DEVICES: Right IJ approach dialysis catheter tip remains in the SVC. RAD/Chest 1 View (Portable) IMPRESSION: 1. Persistent bibasilar subsegmental atelectases and bilateral pleural fluid. 2. No interval change when compared to 10/05/2020. Electronically Signed: Soy Melendez MD at 12:51 EDT , Service support ,
--- NOTE | 2020-10-08 11:10 | EKG12_ITS ---
Test Reason : REPEAT Blood Pressure : / mmHG Vent. Rate : 066 BPM Atrial Rate : 066 BPM P-R Int : 170 ms QRS Dur : 082 ms QT Int : 498 ms P-R-T Axes : 071 046 086 degrees QTc Int : 522 ms Normal sinus rhythm T wave abnormality, consider anterolateral ischemia Prolonged QT Abnormal ECG Confirmed by TERE LEMON, JAN ([id number]), video news editor BIRDIE TORRES ([id number]) on 10/13/2020 10:42:40 AM Referred By: MR Confirmed By:JAN CARRANZA MD
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
[2020-10-08 12:26] LABS: Absolute Lymphocyte Count 1.17 X10^3/uL (0.83-4.51); Absolute Neutrophil Count 5.2 X10^3/uL (2.0-7.7); Basophil# 0.02 X10^3/uL; Basophil% 0.3 % (0-1); Eosinophil# 0.18 X10^3/uL; Eosinophils% 2.5 % (0-5); Hematocrit 29.1 % (37-47); Lymphocyte # 1.17 X10^3/ul (4.0); Mean Corp Hgb Conc 30.9 g/dL (32-36); Mean Corpuscular Hgb 30.4 pg (27.0-32.0); Mean Corpuscular Volume 98.3 fL (81-99); Mean Platelet Vol. 9.1 fl (6.2-12.0); Monocyte# 0.71 X10^3/uL; Monocyte% 9.7 % (0-10); NRBC Flagged by Analyzer 0 % (0-5); Neutrophil # 5.18 X10^3/uL (2.7-7.7); Neutrophil % 71.1 % (47-70); Platelet Count 157 K/mm3 (150-450); RBC Distribution Width CV 15.2 % (11.6-14.6); RBC Distribution Width SD 52.8 fl (35.1-43.9); Red Blood Count 2.96 M/mm3 (4.2-5.4); White Blood Count 7.3 K/mm3 (4.4-11.0)
[2020-10-08 12:52] LABS: Anion Gap 5 (5-15); BUN 26 mg/dL (7-18); BUN/Creat Ratio 5.6 RATIO (10-20); Calcium,Total 8.1 mg/dL (8.5-10.1); Chloride 99 mmol/L (98-107); Creatinine, Serum 4.62 mg/dL (0.55-1.02); EST Glomerular Filtration Rate 10 mL/min (>60); Est Glom Filt Rate - Afr Amer 12 mL/min (>60); Estimated Creatinine Clearance 12.18 ml/min; Glucose 82 mg/dL (74-106); Potassium 3.6 mmol/L (3.5-5.1); Sodium Level 137 mmol/L (136-145)
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
--- NOTE | 2020-10-08 13:48 | EKG12_ITS ---
Test Reason : SYNCOPE Blood Pressure : / mmHG Vent. Rate : 072 BPM Atrial Rate : 072 BPM P-R Int : 168 ms QRS Dur : 084 ms QT Int : 508 ms P-R-T Axes : 069 053 186 degrees QTc Int : 556 ms Normal sinus rhythm ST & T wave abnormality, consider anterolateral ischemia Prolonged QT Abnormal ECG Confirmed by TERE LEMON, JAN ([id number]), desk editor BIRDIE TORRES ([id number]) on 10/13/2020 10:43:00 AM Referred By: MR Confirmed By:JAN CARRANZA MD
[2020-10-08 14:02] LABS: Magnesium 1.9 mg/dL (1.6-2.6)
--- NOTE | 2020-10-08 14:25 | EKG12_ITS ---
Test Reason : CHEST PAIN Blood Pressure : / mmHG Vent. Rate : 066 BPM Atrial Rate : 066 BPM P-R Int : 168 ms QRS Dur : 084 ms QT Int : 500 ms P-R-T Axes : 071 041 099 degrees QTc Int : 524 ms Normal sinus rhythm T wave abnormality, consider anterolateral ischemia Prolonged QT Abnormal ECG When compared with ECG of 08-OCT-2020 11:07, MANUAL COMPARISON REQUIRED, DATA IS UNCONFIRMED Confirmed by TERE LEMON, JAN ([id number]), food expeditor BIRDIE TORRES ([id number]) on 10/13/2020 1:29:04 PM Referred By: YUMIKO Confirmed By:JAN CARRANZA MD
[2020-10-08] MEDS: hydrALAZINE 50 MG Tablet 100 MG PO ×2 (15:05→22:14)
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
--- NOTE | 2020-10-08 16:32 | ECHOD_ITS ---
Reason For Study: SYNCOPE Procedure This was a 2D Doppler, Color Flow transthoracic echocardiogram. The exam was of adequate technical quality. Exam performed portable in patient room. Left Ventricle Normal LV size. Mild segmental systolic dysfunction (see wall motion). The estimated ejection fraction is 40 %. Diastolic function is indeterminate. Anterio-Basal: Hypokinetic. Infero-Basal: Hypokinetic. Basal inferoseptal: Hypokinetic. Basal anteroseptal: Hypokinetic. Mid-Anterior : Akinetic. Mid-Lateral : Hypokinetic. Mid-Posterior: Hypokinetic. Mid-Inferior: Hypokinetic. Mid- inferoseptal : Akinetic. Mid-anteroseptal : Akinetic. Anterior [place] : Hypokinetic. Inferior [place] : Hypokinetic. Lateral [place] : Hypokinetic. Septal [place] : Hypokinetic. Right Ventricle Normal RV size. Normal systolic function. Atria Normal left atrium. Normal right atrium. No doppler evidence for ASD. Mitral Valve There is no mitral annular calcification. Mild diffuse mitral valve thickening. Trivial mitral valve insufficiency. Tricuspid Valve Normal tricuspid valve. Moderate (2+) tricuspid valve insufficiency. Right ventricular systolic pressure estimated to be 44 mmHg. Aortic Valve Trisinus/trileaflet aortic valve. Mild diffuse aortic valve thickening. Mild focal aortic valve calcification. Pulmonic Valve The pulmonic valve is not well visualized. Great Vessels Normal sized aortic root. Pericardium/Pleural Small pericardial effusion. There are no echocardiographic indications of cardiac tamponade. Echo lucency compatible with a pleural effusion. Medication Previously negative bubble study. MMode/2D Measurements & Calculations LVIDd: 5.3 cm IVSd: 0.97 cm Ao root diam: 3.3 cm LVIDs: 3.8 cm LVPWd: 0.97 cm RVDd: 4.4 cm FS: 28.4 % LAV(MOD-bp): 63.5 ml LVAd ap4: 31.2 cm2 SV(MOD-sp4): 38.4 ml LAV(MOD-bp) Indexed: 33.3 ml/m2 EDV(MOD-sp4): 92.4 ml LAV(MOD-sp2): 68.5 ml EDV(sp4-el): 97.2 ml LAV(MOD-sp4): 59.2 ml LVAs ap4: 21.9 cm2 ESV(MOD-sp4): 54.0 ml ESV(sp4-el): 55.8 ml EF(MOD-sp4): 41.5 % EF(sp4-el): 42.6 % SV(sp4-el): 41.4 ml LA A4 area: 21.0 cm2 LA dimension(2D): 4.5 cm RA A4 area: 18.7 cm2 Time Measurements MV dec time: 0.32 sec Doppler Measurements & Calculations MV E max reg: 75.2 cm/sec Lat Peak E' Reg: 5.6 cm/sec Med Peak E' Reg: 3.9 cm/sec MV A max reg: 109.9 cm/sec E/E' lat: 13.5 E/E' med: 19.4 MV E/A: 0.68 Ao V2 max: 175.5 cm/sec LV V1 max: 138.2 cm/sec TR max reg: 299.5 cm/sec Ao max P.3 mmHg LV V1 max P.6 mmHg TR max P.9 mmHg Ao V2 mean: 106.5 cm/sec Ao mean P.3 mmHg Ao V2 VTI: 34.0 cm ECHO/Echo Complete Interpretation Summary Mild segmental systolic dysfunction (see wall motion). The estimated ejection fraction is 40 %. Mild diffuse mitral valve thickening. Trivial mitral valve insufficiency. Moderate (2+) tricuspid valve insufficiency. Mild diffuse aortic valve thickening. Mild focal aortic valve calcification. Small pericardial effusion. There are no echocardiographic indications of cardiac tamponade. Echo lucency compatible with a pleural effusion. Right ventricular systolic pressure estimated to be 44 mmHg. Diastolic function is indeterminate. Ordering Physician: Nehemiah Pardo Referring Physician: NEHEMIAH ALTAMIRANO Performed By: Nadya Barajas, MELISSACS, RVT
[2020-10-08] MEDS: Calcium Carbonate 500 MG Tablet PO (16:43)
[2020-10-08] MEDS: Gabapentin 300 MG Capsule PO (16:43)
[2020-10-08] MEDS: Heparin Injection (Vial) 5,000 UNIT/ML VIAL 5000 UNIT IV (22:13)
[2020-10-08] MEDS: Nitroglycerin Oint 1 INCH PACKET TD (22:16)
[2020-10-08] MEDS: HEPARIN/D5w 25,000 UNITS 25,000 UNITS/250 ML IV.SOLN. 11 UNITS IV (22:21)
[2020-10-09] VITALS (13 sets, daily range): BP systolic 125–144; BP diastolic 70–75; PULSE 56–70; RESP 16; TEMP 36.2–36.9; O2SAT 97–99
[2020-10-09] MEDS: Acetaminophen 325 MG Tablet 650 MG PO (04:46)
[2020-10-09 05:30] LABS: Absolute Lymphocyte Count 1.64 X10^3/uL (0.83-4.51); Absolute Neutrophil Count 3.9 X10^3/uL (2.0-7.7); Basophil# 0.05 X10^3/uL; Basophil% 0.8 % (0-1); Eosinophil# 0.21 X10^3/uL; Eosinophils% 3.3 % (0-5); Hematocrit 27.2 % (37-47); Hemoglobin 8.3 g/dL (12.0-15.0); Lymphocyte # 1.64 X10^3/ul (4.0); Lymphocyte % 25.5 % (19-41); Mean Corp Hgb Conc 30.5 g/dL (32-36); Mean Corpuscular Hgb 30.4 pg (27.0-32.0); Mean Corpuscular Volume 99.6 fL (81-99); Monocyte# 0.64 X10^3/uL; NRBC Flagged by Analyzer 0 % (0-5); Neutrophil # 3.86 X10^3/uL (2.7-7.7); Neutrophil % 59.9 % (47-70); Platelet Count 162 K/mm3 (150-450); RBC Distribution Width CV 15.5 % (11.6-14.6); RBC Distribution Width SD 54.8 fl (35.1-43.9); Red Blood Count 2.73 M/mm3 (4.2-5.4); White Blood Count 6.4 K/mm3 (4.4-11.0)
[2020-10-09] MEDS: hydrALAZINE 50 MG Tablet 100 MG PO ×3 (05:32→21:02)
[2020-10-09] MEDS: Nitroglycerin Oint 1 INCH PACKET TD ×3 (05:33→21:02)
[2020-10-09 05:40] LABS: Partial Thromboplast Time 110.6 Seconds (24.1-36.2)
[2020-10-09 05:50] LABS: ALB/GLOB Ratio 0.6 RATIO (0.9-2.4); AST(SGOT) 21 U/L (15-37); Alanine Aminotransfer ALT/SGPT 9 U/L (13-56); Albumin, Serum 2.2 g/dL (3.2-5.0); Alkaline Phosphatase 107 U/L (45-117); Anion Gap 8 (5-15); BUN 32 mg/dL (7-18); BUN/Creat Ratio 5.6 RATIO (10-20); Calcium,Total 7.5 mg/dL (8.5-10.1); Chloride 101 mmol/L (98-107); Cholesterol 150 mg/dL (200); EST Glomerular Filtration Rate 8 mL/min (>60); Est Glom Filt Rate - Afr Amer 10 mL/min (>60); Estimated Creatinine Clearance 9.87 ml/min; Globulin 3.8 g/dL (2.2-4.2); Glucose 78 mg/dL (74-106); High Density Lipoprotein 61 mg/dL; Potassium 3.5 mmol/L (3.5-5.1); Sodium Level 138 mmol/L (136-145); Triglycerides 82 mg/dL; Very Low Density Lipoprotein 16 mg/dL (5-40)
[2020-10-09] MEDS: 0.9% Saline Lock 10 ML Syringe IV ×2 (05:51→08:33)
--- NOTE | 2020-10-09 05:55 | EKG12_ITS ---
Test Reason : Blood Pressure : / mmHG Vent. Rate : 062 BPM Atrial Rate : 062 BPM P-R Int : 186 ms QRS Dur : 080 ms QT Int : 500 ms P-R-T Axes : 054 014 008 degrees QTc Int : 507 ms Normal sinus rhythm T wave abnormality, consider lateral ischemia Prolonged QT Abnormal ECG When compared with ECG of 09-OCT-2020 02:33, MANUAL COMPARISON REQUIRED, DATA IS UNCONFIRMED Confirmed by TERE LEMON, JAN ([id number]), development editor BIRDIE TORRES ([id number]) on 10/13/2020 1:23:26 PM Referred By: YUMIKO Confirmed By:JAN CARRANZA MD
[2020-10-09] MEDS: Aspirin E.C. 81 MG Tablet PO (08:49)
[2020-10-09] MEDS: Gabapentin 300 MG Capsule PO (08:49)
[2020-10-09] MEDS: Calcium Carbonate 500 MG Tablet PO ×2 (08:50→16:12)
[2020-10-09] MEDS: Cinacalcet HCl 30 MG Tablet PO (09:54)
[2020-10-09] MEDS: Pantoprazole Sodium 40 MG Tablet PO (09:54)
[2020-10-09] MEDS: Pyridoxine HCl 100 MG Tablet PO (09:54)
[2020-10-09] MEDS: Furosemide 80 MG Tablet PO (09:54)
--- NOTE | 2020-10-09 11:43 | PN_ITS ---
Patient Problems: Active and Suspected Problems (Last Reviewed 09/29/20 @ 16:[address] Stiven Mo, DO) Chest pain (Acute) Acute electrocardiogram changes (Acute) Syncope (Acute) Subjective: Patient seen and examined. Reports feeling winded. Denies chest pain. Denies other symptoms or complaints. Plan for heart cath on Sunday. - Physical Exam Vitals/I&O's: Vital Signs Temp Pulse Resp BP Pulse Ox 97.4 F L 57 L 16 144/73 H 99 10/09/20 09:50 10/09/20 09:50 10/09/20 09:50 10/09/20 09:50 10/09/20 09:50 Oxygen Delivery Method Room Air Weight: 166 lb 7.184 oz Body Mass Index (BMI) 24.4 Finger Stick Blood Glucose 153 Orthostatic Vital Signs Start: 10/08/20 13:52 Freq: q24h Status: Active Protocol: Activity Type Activity Date Activity User E-Sign Co-Sign Detail Recorded Client Recorded Date Recorded By Document 10/08/20 15:09 [facility] [id number] 10/08/20 15:10 [facility] 10/08/20 15:09 Orthostatic Vitals Standing -Blood Pressure (90/60-120/80) 156/77 H -Extremity Use Right Arm -Pulse Rate (60-100) 67 Sitting -Blood Pressure (90/60-120/80) 157/83 H -Extremity Use Right Arm -Pulse Rate (60-100) 64 Lying -Blood Pressure (90/60-120/80) 165/91 H -Extremity Use Right Arm -Pulse Rate (60-100) 65 Intake and Output for Last 24 Hours 10/07/20 10/08/20 10/09/20 23:59 23:59 23:59 Intake Total 381.4 / 381.4 Output Total 0 / 0 Balance 381.4 / 381.4 General: Alert, Oriented x3, Cooperative HEENT: Atraumatic, PERRLA, EOMI, Normocephalic Neck: Supple, No JVD, Negative Carotid Bruits Lungs: Clear to auscultation, Diminished Cardiovascular: Regular rate, No murmurs Abdomen: Bowel Sounds Present, Soft, Non Tender Extremities: No clubbing, No cyanosis, No edema, Capillary Refill Less than 3 Seconds Skin: No rashes, No breakdown Musculoskeletal: No Tenderness to Palpation of Joints or Extremities Neurological: Cranial nerves II-XII grossly intact, Neuro grossly intact Psych/Mental Status: Flat Affect Laboratory Results 10/08/20 12:10: WBC 7.3, RBC 2.96 L, Hgb 9.0 L, Hct 29.1 L, MCV 98.3, MCH 30.4, MCHC 30.9 L, RDW Std Deviation 52.8 H, RDW Coeff of Destiny 15.2 H, Plt Count 157, MPV 9.1, Immature Gran % (Auto) 0.400, Neut % (Auto) 71.1 H, Lymph % (Auto) 16.0 L, Evangeline % (Auto) 9.7, Eos % (Auto) 2.5, Baso % (Auto) 0.3, Absolute Neuts (auto) 5.2, Absolute Lymphs (auto) 1.17, Nucleated RBC % 0 10/08/20 12:10: Sodium 137, Potassium 3.6, Chloride 99, Carbon Dioxide 33.0 H, Anion Gap 5, BUN 26 H, Creatinine 4.62 H, Estim Creat Clear Calc 12.18, Est GFR (MDRD) Af Amer 12 L, Est GFR (MDRD) Non-Af 10 L, BUN/Creatinine Ratio 5.6 L, Glucose 82, Calcium 8.1 L, Troponin I 0.028 10/08/20 12:10: Magnesium 1.9 10/08/20 14:25: Troponin I 0.027 10/08/20 18:33: Troponin I 0.027 10/08/20 18:33: APTT 30.0 10/09/20 05:19: WBC 6.4, RBC 2.73 L, Hgb 8.3 L, Hct 27.2 L, MCV 99.6 H, MCH 30.4, MCHC 30.5 L, RDW Std Deviation 54.8 H, RDW Coeff of Destiny 15.5 H, Plt Count 162, MPV 9.0, Immature Gran % (Auto) 0.500, Neut % (Auto) 59.9, Lymph % (Auto) 25.5, Evangeline % (Auto) 10.0, Eos % (Auto) 3.3, Baso % (Auto) 0.8, Absolute Neuts (auto) 3.9, Absolute Lymphs (auto) 1.64, Nucleated RBC % 0 10/09/20 05:19: Sodium 138, Potassium 3.5, Chloride 101, Carbon Dioxide 29.0, Anion Gap 8, BUN 32 H, Creatinine 5.70 H, Estim Creat Clear Calc 9.87, Est GFR (MDRD) Af Amer 10 L, Est GFR (MDRD) Non-Af 8 L, BUN/Creatinine Ratio 5.6 L, Glucose 78, Calcium 7.5 L, Total Bilirubin 0.30, AST 21, ALT 9 L, Alkaline Phosphatase 107, Total Protein 6.0 L, Albumin 2.2 L, Globulin 3.8, Albumin/Globulin Ratio 0.6 L, Triglycerides 82, Cholesterol 150, LDL Cholesterol 73, VLDL Cholesterol 16, HDL Cholesterol 61 10/09/20 05:19: APTT 110.6 H* Current Medications Acetaminophen (Acetaminophen 325 Mg Tablet) 650 mg PO Q6H PRN PRN PRN Reason: Pain Score 1-10/Temp > 100.7 F Last Admin: 10/09/20 04:46 Dose: 650 mg Documented by: Al Hydroxide/Mg Hydroxide (Mag Hydrox/Al Hydrox/Simeth 30 Ml Udc) 30 ml PO Q6H PRN PRN PRN Reason: Gastric Burning Albuterol Sulfate (Albuterol 2.5 Mg/3 Ml Vial.Neb.) 2.5 mg INHALATION Q2H PRN PRN PRN Reason: Dyspnea, wheezing Aspirin (Aspirin E.C. 81 Mg Tablet) 81 mg PO DAILY@0800 [facility] Last Admin: 10/09/20 08:49 Dose: 81 mg Documented by: Atenolol (Atenolol 25 Mg Tablet) 25 mg PO DAILY [facility] Last Admin: 10/09/20 09:54 Dose: Not Given Documented by: Calcium Carbonate (Calcium Carbonate 500 Mg Tablet) 500 mg PO BIDCM [facility] Last Admin: 10/09/20 08:50 Dose: 500 mg Documented by: Cinacalcet (Cinacalcet Hcl 30 Mg Tablet) 30 mg PO DAILY [facility] Last Admin: 10/09/20 09:54 Dose: 30 mg Documented by: Duloxetine HCl (Duloxetine Hcl 30 Mg Capsule) 30 mg PO DAILY [facility] Furosemide (Furosemide 80 Mg Tablet) 80 mg PO DAILY [facility] Last Admin: 10/09/20 09:54 Dose: 80 mg Documented by: Gabapentin (Gabapentin 300 Mg Capsule) 300 mg PO TIDCM [facility] Last Admin: 10/09/20 08:49 Dose: 300 mg Documented by: Gabapentin (Gabapentin 100 Mg Capsule) 100 mg PO TID [facility] Guaifenesin (Guaifenesin 10 Ml Udc (200mg/10ml)) 20 ml PO Q4H PRN PRN PRN Reason: COUGH Heparin Sodium (Porcine) (Heparin Injection (Vial) 5,000 Unit/Ml Vial) 0 unit IV UD PRN; Protocol PRN Reason: dose adjustment Hydralazine HCl (Hydralazine 50 Mg Tablet) 100 mg PO TID [facility] Last Admin: 10/09/20 05:32 Dose: 100 mg Documented by: Hydralazine HCl (Hydralazine 20 Mg/Ml Vial) 10 mg IV Q4H PRN PRN PRN Reason: SBP > 160 Heparin Sodium/Dextrose () 25,000 units in 250 mls @ 11 mls/hr IV .[id number] [facility]; Protocol Last Titration: 10/09/20 08:28 Dose: 800 units/hr, 8 mls/hr Documented by: Magnesium Hydroxide (Magnesium Hydroxide 30 Ml Udc) 30 ml PO DAILY PRN PRN PRN Reason: Constipation Melatonin (Melatonin 3 Mg Tablet) 3 mg PO QHS PRN PRN PRN Reason: INSOMNIA Morphine Sulfate (Morphine 2 Mg/Ml Syringe) 2 mg IV Q3H PRN PRN PRN Reason: Pain Score 6-10 Nitroglycerin (Nitroglycerin (Inpatient Use) 0.4 Mg Tab.Subl) 0.4 mg SL Q5M PRN PRN Reason: CARDIAC/CHEST PAIN Nitroglycerin (Nitroglycerin Oint 1 Inch Packet) 1 inch TD Q8 [facility] Last Admin: 10/09/20 05:33 Dose: 1 inch Documented by: Non-Formulary Medication (Mirtazapine [Remeron]) 45 mg PO QHS [facility] Ondansetron HCl (Ondansetron 4 Mg/2 Ml Vial) 4 mg IV Q8H PRN PRN PRN Reason: NAUSEA/VOMITING Pantoprazole Sodium (Pantoprazole Sodium 40 Mg Tablet) 40 mg PO DAILY [facility] Last Admin: 10/09/20 09:54 Dose: 40 mg Documented by: Prochlorperazine Edisylate (Prochlorperazine 10 Mg/2 Ml Vial) 5 mg IV Q4H PRN PRN PRN Reason: Breakthrough Nausea/Vomiting Psyllium Hydrophilic Mucilloid (Psyllium 1 Packet) 1 packet PO DAILY PRN PRN PRN Reason: Constipation Pyridoxine HCl (Pyridoxine Hcl 100 Mg Tablet) 100 mg PO DAILY [facility] Last Admin: 10/09/20 09:54 Dose: 100 mg Documented by: Senna/Docusate Sodium (Senna/Docusate Sodium 1 Tablet) 2 tablet PO BID PRN PRN PRN Reason: Constipation Sodium Chloride (0.9% Saline Lock 10 Ml Syringe) 10 - 40 ml IV UD PRN PRN Reason: SALINE FLUSH Last Admin: 10/09/20 08:33 Dose: 10 ml Documented by: Throat Lozenges (Benzocaine/Menthol 1 Lozenge) 1 lozenge MUCOUS MEM Q2H PRN PRN PRN Reason: SORE THROAT Medical Necessity - Tobacco Use Smoking Status: Current every day smoker Tobacco Use: Cigarettes Assessment/Plan All Active Problems (Last Reviewed 09/29/20 @ 16:[address] Stiven Mo, DO) Myoclonus (Acute) Chest pain (Acute) Acute electrocardiogram changes (Acute) Syncope (Acute) s/p chest catheters (Resolved) 1. Syncope, chest pain-cardiology following. Echocardiogram January 2020 demonstrated an EF of 55 to 60%, stage I diastolic dysfunction. Continue aspirin, transdermal nitro. Plan for heart cath on Sunday to assess coronaries. 2. End-stage renal disease on hemodialysis-nephrology consulted. 3. Chronic normocytic anemia/anemia of chronic disease- stable. Trend CBC. 4. Hypertension-continue atenolol, Lasix, hydralazine. 5. Hyperlipidemia-not on statin. 6. Chronic mild asthma-as needed albuterol aerosol. 7. History of type 2 diabetes mellitus with neuropathy-not on regimen, most recent hemoglobin A1c less than 3.8%. Continue gabapentin. 8. Anxiety/depression-on Remeron. 9. GERD-continue PPI. 10. History of left lower extremity DVT-on heparin, Eliquis on hold. DVT prophylaxis-Heparin This patient was seen by JOE Zayas under the supervision of Dr. Wakefield.
--- NOTE | 2020-10-09 12:43 | CASEMGMT ---
REGGIE CM in to discuss RED form with patient. RN CM explained RED form, patient voiced understanding. Pt signed form and filed in chart. Pt provided with a copy of signed RED form. Patient had no further questions or concerns at this time.
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
--- NOTE | 2020-10-09 12:59 | NURSING ---
Pt stated that staff may give information and updates to daughter in law Modesta La.
--- NOTE | 2020-10-09 14:00 | CASEMGMT ---
Pt is here from [facility]. SW spoke w/pt, confirmed she would like to return there at discharge. SW asked pt if she would like to re-do the LW/POA forms, as the ones we have on file are from [place]. Pt would be willing to do this on Sunday. Pt will be here through the , SW will find out on Sunday if a precert will be needed for pt to return. Updates faxed. SW will follow up w/pt and [facility] on Sunday. JENIFER Sherman
--- NOTE | 2020-10-09 14:15 | PCM.PN.CARD ---
Subjectve: The patient appears to be resting comfortably. She complains of intermittent chest discomfort. It is noted that she does seem to have chest discomfort with palpation of her chest. Objective: Vital Signs Temp Pulse Resp BP Pulse Ox 97.4 F L 57 L 16 144/73 H 99 10/09/20 09:50 10/09/20 09:50 10/09/20 09:50 10/09/20 09:50 10/09/20 09:50 Oxygen Delivery Method Room Air Weight: 166 lb 7.184 oz Body Mass Index (BMI) 24.4 Finger Stick Blood Glucose 153 Intake and Output for Last 24 Hours 10/07/20 10/08/20 10/09/20 23:59 23:59 23:59 Intake Total 721.4 / 721.4 Output Total 0 / 0 Balance 721.4 / 721.4 General: Awake, Cooperative, No Acute Distress HEENT: Atraumatic, Normocephalic, PERRL, EOMI, Sclera Non Icteric Neck: Supple, Good ROM Lungs: Diminished Shin Bases Cardiovascular: Regular Rhythm, Normal S1, Normal S2 Abdomen: Bowel Sounds Present, Soft Extremities: No edema Psych/Mental Status: Appropriate 10/08/20 14:25: Troponin I 0.027 10/08/20 18:33: Troponin I 0.027 10/08/20 18:33: APTT 30.0 10/09/20 05:19: WBC 6.4, RBC 2.73 L, Hgb 8.3 L, Hct 27.2 L, MCV 99.6 H, MCH 30.4, MCHC 30.5 L, Plt Count 162, MPV 9.0, Immature Gran % (Auto) 0.500, Neut % (Auto) 59.9, Lymph % (Auto) 25.5, [place] % (Auto) 10.0, Eos % (Auto) 3.3, Baso % (Auto) 0.8, Absolute Neuts (auto) 3.9, Nucleated RBC % 0 10/09/20 05:19: Sodium 138, Potassium 3.5, Chloride 101, Carbon Dioxide 29.0, Anion Gap 8, BUN 32 H, Creatinine 5.70 H, Est GFR (MDRD) Af Amer 10 L, Est GFR (MDRD) Non-Af 8 L, BUN/Creatinine Ratio 5.6 L, Glucose 78, Calcium 7.5 L, Total Bilirubin 0.30, Triglycerides 82, Cholesterol 150, LDL Cholesterol 73, VLDL Cholesterol 16, HDL Cholesterol 61 10/09/20 05:19: APTT 110.6 H* Rhythm: Sinus rhythm; PACs ECHO: Interpretation Summary Mild segmental systolic dysfunction (see wall motion). The estimated ejection fraction is 40 %. Mild diffuse mitral valve thickening. Trivial mitral valve insufficiency. Moderate (2+) tricuspid valve insufficiency. Mild diffuse aortic valve thickening. Mild focal aortic valve calcification. Small pericardial effusion. There are no echocardiographic indications of cardiac tamponade. Echo lucency compatible with a pleural effusion. Right ventricular systolic pressure estimated to be 44 mmHg. Diastolic function is indeterminate. Medical Necessity - Tobacco Use Smoking Status: Current every day smoker Tobacco Use: Cigarettes Assessment/Plan 1. Syncope Is unclear as to the exact etiology of her syncopal event. The events of dialysis with respect to her hemodynamics such as blood pressure, etc., are unknown at this time. She has been monitored. Thus far there is been no obvious cardiac dysrhythmia reported. She is undergoing evaluation for any evidence of an acute coronary syndrome. Thus far her cardiac enzymes have been negative. Her ECG is abnormal as noted above but appears similar to a recent ECG. At the moment she will continue to be monitored. This will include her cardiac rhythm for any obvious conduction system disease or cardiac dysrhythmias that may lead to a syncopal event. 2. Chest pain She has complained of chest pain. Of note on examination she also has an element of reproducible chest pain over her sternum with palpation. Her initial cardiac enzyme is negative. Her ECG does demonstrate T wave normalities compatible with myocardial ischemia in the anterolateral distribution. This is similar to a previous ECG. She has undergone noninvasive evaluation in the past. She does not believe she has ever undergone diagnostic cardiac catheterization. She will be followed. Over time depending upon her clinical course she may need to be considered based upon her symptoms and her objective findings such as her abnormal ECG for further definitive evaluation of her coronary anatomy with diagnostic cardiac catheterization. In the meantime she will continue medical therapy for the possibility of underlying CAD contributing to her findings. This include agents such as aspirin, nitrates, beta-blockers, anticoagulant agents, and as needed additional antiplatelet agents. 3. Abnormal ECG She does have an abnormal ECG suggestive of myocardial ischemia in the anterolateral distribution. She has not had any recent cardiovascular evaluation with additional objective studies for such. Thus based upon her clinical course and this findings it may be reasonable to consider further cardiac evaluation for the possibly of CAD and myocardial ischemia contributing to her symptoms and these findings with a diagnostic cardiac catheterization. The the interim she will continue to be monitored for any other concerning changes. 4. Hyperlipidemia She will undergo further evaluation and care. She may need to be considered for lipid-lowering therapy. 5. Hypertension Her blood pressure will be followed. Her medications may need to be adjusted to help bring her blood pressure under better control. 6. Diabetes mellitus She will continue evaluation care per internal medicine. 7. End-stage renal disease on chronic hemodialysis She will continue evaluation care per nephrology. 8. 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 She has been on anticoagulant therapy. This will have to be placed on hold in preparation for an upcoming diagnostic cardiac catheterization barring an urgent/emergent cardiovascular event in the interim. Comment: The patient has undergone additional evaluation with a transthoracic echocardiogram. She appears to have left ventricular regional wall motion abnormalities and diminished LV systolic function. At the moment she will continue medical therapy as deemed appropriate taken into consideration her multiple comorbidities. She can be considered for further evaluation with diagnostic cardiac catheterization to further define her coronary anatomy for the need for additional therapy such as revascularization therapy-as long as her other comorbidities are stable to allow her to proceed in such a manner. The patient's case was discussed and reviewed with patient and Dr. Wakefield. This note was generated using a voice recognition system and there may be incorrect words, spelling or punctuation that were not noted when reviewing the office note prior to saving.
[2020-10-09 14:47] LABS: Partial Thromboplast Time 38.9 Seconds (24.1-36.2)
--- NOTE | 2020-10-09 14:49 | CASEMGMT ---
LW/POA forms in summary tab of echart, however documents are from [place]. Pt willing to updated forms as time allows. JENIFER Sherman
[2020-10-09] MEDS: Heparin Injection (Vial) 5,000 UNIT/ML VIAL IV (15:39)
[2020-10-09] MEDS: Gabapentin 100 MG Capsule PO (16:12)
[2020-10-09] MEDS: Mirtazapine 15 MG Tablet 45 MG PO (21:02)
[2020-10-09] MEDS: HEPARIN/D5w 25,000 UNITS 25,000 UNITS/250 ML IV.SOLN. 10 UNITS IV (22:23)
[2020-10-10] VITALS (13 sets, daily range): BP systolic 129–153; BP diastolic 71–85; PULSE 58–69; RESP 14–16; TEMP 36.4–36.8; O2SAT 95–100
[2020-10-10 04:10] LABS: Hematocrit 26.1 % (37-47); Hemoglobin 7.9 g/dL (12.0-15.0); Mean Corp Hgb Conc 30.3 g/dL (32-36); Mean Corpuscular Hgb 30.3 pg (27.0-32.0); Mean Platelet Vol. 9.3 fl (6.2-12.0); Platelet Count 192 K/mm3 (150-450); RBC Distribution Width CV 15.5 % (11.6-14.6); RBC Distribution Width SD 55.8 fl (35.1-43.9); Red Blood Count 2.61 M/mm3 (4.2-5.4); White Blood Count 6.7 K/mm3 (4.4-11.0)
[2020-10-10 04:27] LABS: Anion Gap 8 (5-15); BUN 45 mg/dL (7-18); BUN/Creat Ratio 6.6 RATIO (10-20); Calcium,Total 7.4 mg/dL (8.5-10.1); Chloride 103 mmol/L (98-107); Creatinine, Serum 6.86 mg/dL (0.55-1.02); EST Glomerular Filtration Rate 6 mL/min (>60); Est Glom Filt Rate - Afr Amer 8 mL/min (>60); Glucose 99 mg/dL (74-106); Potassium 3.7 mmol/L (3.5-5.1); Sodium Level 140 mmol/L (136-145)
[2020-10-10] MEDS: hydrALAZINE 50 MG Tablet 100 MG PO ×3 (05:32→21:02)
[2020-10-10] MEDS: Nitroglycerin Oint 1 INCH PACKET TD (05:32)
[2020-10-10] MEDS: Aspirin E.C. 81 MG Tablet PO (07:52)
[2020-10-10] MEDS: Gabapentin 100 MG Capsule PO ×3 (07:53→16:51)
[2020-10-10] MEDS: Calcium Carbonate 500 MG Tablet PO ×2 (07:53→16:51)
--- NOTE | 2020-10-10 09:33 | PN_ITS ---
Patient Problems: Active and Suspected Problems (Last Reviewed 09/29/20 @ 16:[address] Stiven Mo, DO) Chest pain (Acute) Acute electrocardiogram changes (Acute) Syncope (Acute) Subjective: Patient seen and examined. Reports improvement in shortness of breath. Denies chest pain. Denies other current complaints. - Physical Exam Vitals/I&O's: Vital Signs Temp Pulse Resp BP Pulse Ox 97.8 F 63 16 143/74 H 95 10/10/20 05:30 10/10/20 07:00 10/10/20 05:30 10/10/20 05:32 10/10/20 08:28 Oxygen Delivery Method Room Air Weight: 167 lb 15.876 oz Body Mass Index (BMI) 24.4 Finger Stick Blood Glucose 153 Intake and Output for Last 24 Hours 10/08/20 10/09/20 10/10/20 23:59 23:59 23:59 Intake Total 1086.27 / 1326.27 360 / 360 Output Total 0 / 0 0 / 0 Balance 1086.27 / 1326.27 360 / 360 General: Alert, Oriented x3, Cooperative HEENT: Atraumatic, PERRLA, EOMI, Normocephalic Neck: Supple, No JVD, Negative Carotid Bruits Lungs: Clear to auscultation, Diminished Cardiovascular: Regular rate, No murmurs Abdomen: Bowel Sounds Present, Soft, Non Tender, Non-Distended Extremities: No clubbing, No cyanosis, No edema, Capillary Refill Less than 3 Seconds Skin: No rashes, No breakdown Musculoskeletal: No Tenderness to Palpation of Joints or Extremities Neurological: Cranial nerves II-XII grossly intact, Neuro grossly intact Psych/Mental Status: Flat Affect Laboratory Results 10/09/20 14:00: APTT 38.9 H 10/09/20 21:42: APTT 73.0 H 10/10/20 03:56: WBC 6.7, RBC 2.61 L, Hgb 7.9 L, Hct 26.1 L, MCV 100.0 H, MCH 30.3, MCHC 30.3 L, RDW Std Deviation 55.8 H, RDW Coeff of Destiny 15.5 H, Plt Count 192, MPV 9.3 10/10/20 03:56: Sodium 140, Potassium 3.7, Chloride 103, Carbon Dioxide 29.0, Anion Gap 8, BUN 45 H, Creatinine 6.86 H, Estim Creat Clear Calc 8.20, Est GFR (MDRD) Af Amer 8 L, Est GFR (MDRD) Non-Af 6 L, BUN/Creatinine Ratio 6.6 L, Glucose 99, Calcium 7.4 L 10/10/20 03:56: APTT 61.0 H Current Medications Acetaminophen (Acetaminophen 325 Mg Tablet) 650 mg PO Q6H PRN PRN PRN Reason: Pain Score 1-10/Temp > 100.7 F Last Admin: 10/09/20 04:46 Dose: 650 mg Documented by: Al Hydroxide/Mg Hydroxide (Mag Hydrox/Al Hydrox/Simeth 30 Ml Udc) 30 ml PO Q6H PRN PRN PRN Reason: Gastric Burning Albuterol Sulfate (Albuterol 2.5 Mg/3 Ml Vial.Neb.) 2.5 mg INHALATION Q2H PRN PRN PRN Reason: Dyspnea, wheezing Aspirin (Aspirin E.C. 81 Mg Tablet) 81 mg PO DAILY@0800 [facility] Last Admin: 10/10/20 07:52 Dose: 81 mg Documented by: Atenolol (Atenolol 25 Mg Tablet) 25 mg PO DAILY [facility] Last Admin: 10/09/20 09:54 Dose: Not Given Documented by: Calcium Carbonate (Calcium Carbonate 500 Mg Tablet) 500 mg PO BIDCM [facility] [place] Last Admin: 10/10/20 07:53 Dose: 500 mg Documented by: Cinacalcet (Cinacalcet Hcl 30 Mg Tablet) 30 mg PO DAILY [facility] [place] Last Admin: 10/09/20 09:54 Dose: 30 mg Documented by: Furosemide (Furosemide 80 Mg Tablet) 80 mg PO DAILY [facility] [place] Last Admin: 10/09/20 09:54 Dose: 80 mg Documented by: Gabapentin (Gabapentin 100 Mg Capsule) 100 mg PO TIDCM [facility] [place] Last Admin: 10/10/20 07:53 Dose: 100 mg Documented by: Guaifenesin (Guaifenesin 10 Ml Udc (200mg/10ml)) 20 ml PO Q4H PRN PRN PRN Reason: COUGH Heparin Sodium (Porcine) (Heparin Injection (Vial) 5,000 Unit/Ml Vial) 0 unit IV UD PRN; Protocol PRN Reason: dose adjustment Last Admin: 10/09/20 15:39 Dose: 3,000 unit Documented by: Hydralazine HCl (Hydralazine 50 Mg Tablet) 100 mg PO TID [facility] Last Admin: 10/10/20 05:32 Dose: 100 mg Documented by: Hydralazine HCl (Hydralazine 20 Mg/Ml Vial) 10 mg IV Q4H PRN PRN PRN Reason: SBP > 160 Heparin Sodium/Dextrose () 25,000 units in 250 mls @ 11 mls/hr IV .[id number] [facility]; Protocol Last Admin: 10/09/20 22:23 Dose: 1,000 units/hr, 10 mls/hr Documented by: Magnesium Hydroxide (Magnesium Hydroxide 30 Ml Udc) 30 ml PO DAILY PRN PRN PRN Reason: Constipation Melatonin (Melatonin 3 Mg Tablet) 3 mg PO QHS PRN PRN PRN Reason: INSOMNIA Mirtazapine (Mirtazapine 15 Mg Tablet) 45 mg PO QHS [facility] [place] Last Admin: 10/09/20 21:02 Dose: 45 mg Documented by: Morphine Sulfate (Morphine 2 Mg/Ml Syringe) 2 mg IV Q3H PRN PRN PRN Reason: Pain Score 6-10 Nitroglycerin (Nitroglycerin (Inpatient Use) 0.4 Mg Tab.Subl) 0.4 mg SL Q5M PRN PRN Reason: CARDIAC/CHEST PAIN Nitroglycerin (Nitroglycerin Oint 1 Inch Packet) 1 inch TD Q8 [facility] Last Admin: 10/10/20 05:32 Dose: 1 inch Documented by: Ondansetron HCl (Ondansetron 4 Mg/2 Ml Vial) 4 mg IV Q8H PRN PRN PRN Reason: NAUSEA/VOMITING Pantoprazole Sodium (Pantoprazole Sodium 40 Mg Tablet) 40 mg PO DAILY [facility] [place] Last Admin: 10/09/20 09:54 Dose: 40 mg Documented by: Prochlorperazine Edisylate (Prochlorperazine 10 Mg/2 Ml Vial) 5 mg IV Q4H PRN PRN PRN Reason: Breakthrough Nausea/Vomiting Psyllium Hydrophilic Mucilloid (Psyllium 1 Packet) 1 packet PO DAILY PRN PRN PRN Reason: Constipation Pyridoxine HCl (Pyridoxine Hcl 100 Mg Tablet) 100 mg PO DAILY [facility] [place] Last Admin: 10/09/20 09:54 Dose: 100 mg Documented by: Senna/Docusate Sodium (Senna/Docusate Sodium 1 Tablet) 2 tablet PO BID PRN PRN PRN Reason: Constipation Sodium Chloride (0.9% Saline Lock 10 Ml Syringe) 10 - 40 ml IV UD PRN PRN Reason: SALINE FLUSH Last Admin: 10/09/20 08:33 Dose: 10 ml Documented by: Throat Lozenges (Benzocaine/Menthol 1 Lozenge) 1 lozenge MUCOUS MEM Q2H PRN PRN PRN Reason: SORE THROAT Medical Necessity - Tobacco Use Smoking Status: Current every day smoker Tobacco Use: Cigarettes Assessment/Plan All Active Problems (Last Reviewed 09/29/20 @ 16:[address] Stiven Mo, DO) Myoclonus (Acute) Chest pain (Acute) Acute electrocardiogram changes (Acute) Syncope (Acute) s/p chest catheters (Resolved) 1. Syncope, chest pain-cardiology following. Echocardiogram January 2020 demonstrated an EF of 55 to 60%, stage I diastolic dysfunction. Continue aspirin, transdermal nitro. Plan for heart cath on Sunday to assess coronaries. Repeat echocardiogram demonstrates an EF of 40%, moderate tricuspid valve insufficiency, RVSP estimated to be 44 mmHg. 2. End-stage renal disease on hemodialysis-nephrology consulted. M,W,F regimen. 3. Chronic normocytic anemia/anemia of chronic disease- stable. Trend CBC. 4. Hypertension-continue atenolol, Lasix, hydralazine. 5. Hyperlipidemia-not on statin. 6. Chronic mild asthma-as needed albuterol aerosol. 7. History of type 2 diabetes mellitus with neuropathy-not on regimen, most recent hemoglobin A1c less than 3.8%. Continue gabapentin. 8. Anxiety/depression-on Remeron. 9. GERD-continue PPI. 10. History of left lower extremity DVT-on heparin, Eliquis on hold. DVT prophylaxis-Heparin This patient was seen by JOE Zayas under the supervision of Dr. Wakefield.
[2020-10-10] MEDS: Furosemide 80 MG Tablet PO (09:41)
[2020-10-10] MEDS: Pantoprazole Sodium 40 MG Tablet PO (09:41)
[2020-10-10] MEDS: Cinacalcet HCl 30 MG Tablet PO (09:41)
[2020-10-10] MEDS: Pyridoxine HCl 100 MG Tablet PO (09:41)
[2020-10-10] MEDS: Atenolol 25 MG Tablet PO (09:42)
--- NOTE | 2020-10-10 11:24 | PN.CARD_ITS ---
Subjectve: The patient appears to be much more awake and alert and interactive today. She denies ongoing chest discomfort or any difficulty breathing. She states she feels much better today. Objective: Vital Signs Temp Pulse Resp BP Pulse Ox 98.2 F 68 14 153/79 H 98 10/10/20 11:20 10/10/20 11:20 10/10/20 11:20 10/10/20 11:20 10/10/20 11:20 Oxygen Delivery Method Room Air Weight: 167 lb 15.876 oz Body Mass Index (BMI) 24.4 Finger Stick Blood Glucose 153 Intake and Output for Last 24 Hours 10/08/20 10/09/20 10/10/20 23:59 23:59 23:59 Intake Total 1086.27 / 1326.27 360 / 360 Output Total 0 / 0 0 / 0 Balance 1086.27 / 1326.27 360 / 360 General: Awake, Alert, Oriented x 3, Cooperative, No Acute Distress HEENT: Atraumatic, Normocephalic, PERRL, EOMI, Sclera Non Icteric Neck: Supple, Good ROM, No JVD Lungs: Clear to auscultation Cardiovascular: Regular Rhythm, Normal S1, Normal S2 Abdomen: Bowel Sounds Present, Soft Psych/Mental Status: Appropriate 10/09/20 14:00: APTT 38.9 H 10/09/20 21:42: APTT 73.0 H 10/10/20 03:56: WBC 6.7, RBC 2.61 L, Hgb 7.9 L, Hct 26.1 L, MCV 100.0 H, MCH 30.3, MCHC 30.3 L, Plt Count 192, MPV 9.3 10/10/20 03:56: Sodium 140, Potassium 3.7, Chloride 103, Carbon Dioxide 29.0, Anion Gap 8, BUN 45 H, Creatinine 6.86 H, Est GFR (MDRD) Af Amer 8 L, Est GFR (MDRD) Non-Af 6 L, BUN/Creatinine Ratio 6.6 L, Glucose 99, Calcium 7.4 L 10/10/20 03:56: APTT 61.0 H Rhythm: Sinus rhythm Medical Necessity - Tobacco Use Smoking Status: Current every day smoker Tobacco Use: Cigarettes Assessment/Plan 1. Syncope Is unclear as to the exact etiology of her syncopal event. The events of dialysis with respect to her hemodynamics such as blood pressure, etc., are unknown at this time. She has been monitored. Thus far there is been no obvious cardiac dysrhythmia reported. She is undergoing evaluation for any evidence of an acute coronary syndrome. Thus far her cardiac enzymes have been negative. Her ECG is abnormal as noted above but appears similar to a recent ECG. At the moment she will continue to be monitored. This will include her cardiac rhythm for any obvious conduction system disease or cardiac dysrhythmias that may lead to a syncopal event. 2. Chest pain She has complained of chest pain. Of note on examination she also has an element of reproducible chest pain over her sternum with palpation. Her initial cardiac enzyme is negative. Her ECG does demonstrate T wave normali ties compatible with myocardial ischemia in the anterolateral distribution. This is similar to a previous ECG. She has undergone noninvasive evaluation in the past. She does not believe she has ever undergone diagnostic cardiac catheterization. He has undergone evaluation with a transthoracic echocardiogram. The results are as previously noted. A discussion was held with her with respect to her cardiovascular risks and clinical scenario and objective findings with respect to additional cardiovascular evaluation including noninvasive and invasive evaluation. Status post discussion with the patient she states she would prefer to proceed with a noninvasive evaluation at this time and depending upon the results then she would give consideration as to whether or not she would want to proceed with further invasive evaluation. Thus at the present time she will be asked to have a pharmacologic stress nuclear imaging study performed. 3. Abnormal ECG She does have an abnormal ECG suggestive of myocardial ischemia in the anterolateral distribution. She has not had any recent cardiovascular evaluation with additional objective studies for such. She will continue evaluation and care as noted above. 4. Hyperlipidemia She will undergo further evaluation and care. She may need to be considered for lipid-lowering therapy. 5. Hypertension Her blood pressure will be followed. Her medications may need to be adjusted to help bring her blood pressure under better control. 6. Diabetes mellitus She will continue evaluation care per internal medicine. 7. End-stage renal disease on chronic hemodialysis She will continue evaluation care per nephrology. 8. 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 She has been on anticoagulant therapy. This will have to be placed on hold in preparation for an upcoming diagnostic cardiac catheterization barring an urgent/emergent cardiovascular event in the interim. Comment: The patient's case was discussed and reviewed with patient and Dr. Wakefield. This note was generated using a voice recognition system and there may be incorrect words, spelling or punctuation that were not noted when reviewing the office note prior to saving.
[2020-10-10] MEDS: Isosorbide Mononitrate 30 MG Tablet PO (13:36)
--- NOTE | 2020-10-10 13:40 | EKG12_ITS ---
Test Reason : AM EKG Blood Pressure : / mmHG Vent. Rate : 064 BPM Atrial Rate : 064 BPM P-R Int : 184 ms QRS Dur : 084 ms QT Int : 488 ms P-R-T Axes : 059 015 086 degrees QTc Int : 503 ms Normal sinus rhythm T wave abnormality, consider anterior ischemia Prolonged QT Abnormal ECG When compared with ECG of 08-OCT-2020 14:25, MANUAL COMPARISON REQUIRED, DATA IS UNCONFIRMED Confirmed by TERE LEMON, JAN ([id number]), editorial intern BIRDIE TORRES ([id number]) on 10/13/2020 1:25:34 PM Referred By: YUMIKO Confirmed By:JAN CARRANZA MD
[2020-10-10] MEDS: Heparin Injection (Vial) 5,000 UNIT/ML VIAL 5000 UNIT SC (21:02)
[2020-10-10] MEDS: Mirtazapine 15 MG Tablet 45 MG PO (21:02)
[2020-10-10] MEDS: Atorvastatin Calcium 20 MG Tablet PO (21:03)
[2020-10-11] VITALS (12 sets, daily range): BP systolic 143–165; BP diastolic 75–86; PULSE 65–88; RESP 16–24; TEMP 36.4–36.8; O2SAT 95–100
[2020-10-11] MEDS: Albuterol 2.5 MG/3 ML VIAL.NEB. INHALATION ×2 (03:50→07:04)
--- NOTE | 2020-10-11 05:00 | EKG12_ITS ---
Test Reason : AM EKG Blood Pressure : / mmHG Vent. Rate : 066 BPM Atrial Rate : 066 BPM P-R Int : 186 ms QRS Dur : 084 ms QT Int : 506 ms P-R-T Axes : 058 011 058 degrees QTc Int : 530 ms Normal sinus rhythm T wave abnormality, consider anterolateral ischemia Prolonged QT Abnormal ECG Confirmed by BRANDON LEMON, MACIE ([id number]), sports editor BIRDIE TORRES ([id number]) on 10/14/2020 11:21:56 AM Referred By: JANNY Confirmed By:MACIE TAYLOR MD
[2020-10-11] MEDS: Aspirin E.C. 81 MG Tablet PO (05:42)
[2020-10-11] MEDS: hydrALAZINE 50 MG Tablet 100 MG PO (05:42)
[2020-10-11 06:42] LABS: Hemoglobin 7.9 g/dL (12.0-15.0); Mean Corp Hgb Conc 30.4 g/dL (32-36); Mean Corpuscular Hgb 30.2 pg (27.0-32.0); Mean Corpuscular Volume 99.2 fL (81-99); Mean Platelet Vol. 9.3 fl (6.2-12.0); Platelet Count 210 K/mm3 (150-450); RBC Distribution Width CV 15.3 % (11.6-14.6); RBC Distribution Width SD 55.3 fl (35.1-43.9); Red Blood Count 2.62 M/mm3 (4.2-5.4); White Blood Count 6.3 K/mm3 (4.4-11.0)
[2020-10-11 07:21] LABS: Anion Gap 8 (5-15); BUN 56 mg/dL (7-18); BUN/Creat Ratio 7.5 RATIO (10-20); Calcium,Total 7.4 mg/dL (8.5-10.1); Chloride 102 mmol/L (98-107); Creatinine, Serum 7.46 mg/dL (0.55-1.02); EST Glomerular Filtration Rate 6 mL/min (>60); Est Glom Filt Rate - Afr Amer 7 mL/min (>60); Estimated Creatinine Clearance 7.54 ml/min; Glucose 76 mg/dL (74-106); Potassium 3.8 mmol/L (3.5-5.1); Sodium Level 137 mmol/L (136-145)
[2020-10-11] MEDS: 0.9% Saline Lock 10 ML Syringe IV (08:31)
--- NOTE | 2020-10-11 09:38 | PN.CARD_ITS ---
Subjectve: The patient states that she had felt somewhat more short of breath this morning. However she still appears to be resting relatively comfortably in a supine position without O2 therapy. Objective: Vital Signs Temp Pulse Resp BP Pulse Ox 98.3 F 66 18 147/82 H 99 10/11/20 08:26 10/11/20 08:26 10/11/20 08:26 10/11/20 08:26 10/11/20 08:26 Oxygen Delivery Method Room Air Weight: 167 lb 5.294 oz Body Mass Index (BMI) 24.4 Finger Stick Blood Glucose 153 Intake and Output for Last 24 Hours 10/09/20 10/10/20 10/11/20 23:59 23:59 23:59 Intake Total 1086.27 / 1326.27 1465.33 / 1585.33 120 / 120 Output Total 0 / 0 0 / 0 0 / 0 Balance 1086.27 / 1326.27 1465.33 / 1585.33 120 / 120 General: Awake, Alert, Oriented x 3, Cooperative, No Acute Distress HEENT: Atraumatic, Normocephalic, PERRL, EOMI, Sclera Non Icteric Neck: Supple, Good ROM Lungs: Diminished Shin Bases Cardiovascular: Regular Rhythm, Normal S1, Normal S2 Abdomen: Bowel Sounds Present, Soft Extremities: No edema Psych/Mental Status: Appropriate 10/11/20 05:45: APTT 29.0 10/11/20 05:45: WBC 6.3, RBC 2.62 L, Hgb 7.9 L, Hct 26.0 L, MCV 99.2 H, MCH 30.2, MCHC 30.4 L, Plt Count 210, MPV 9.3 10/11/20 05:45: Sodium 137, Potassium 3.8, Chloride 102, Carbon Dioxide 27.0, Anion Gap 8, BUN 56 H, Creatinine 7.46 H*, Est GFR (MDRD) Af Amer 7 L, Est GFR (MDRD) Non-Af 6 L, BUN/Creatinine Ratio 7.5 L, Glucose 76, Calcium 7.4 L Rhythm: Sinus rhythm Medical Necessity - Tobacco Use Smoking Status: Current every day smoker Tobacco Use: Cigarettes Assessment/Plan 1. Syncope Is unclear as to the exact etiology of her syncopal event. The events of dialysis with respect to her hemodynamics such as blood pressure, etc., are unknown at this time. She has been monitored. Thus far there is been no obvious cardiac dysrhythmia reported. She is undergoing evaluation for any evidence of an acute coronary syndrome. Thus far her cardiac enzymes have been negative. Her ECG is abnormal as noted above but appears similar to a recent ECG. At the moment she will continue to be monitored. This will include her cardiac rhythm for any obvious conduction system disease or cardiac dysrhythmias that may lead to a syncopal event. 2. Chest pain She has complained of chest pain. Of note on examination she also has an element of reproducible chest pain over her sternum with palpation. Her initial cardiac enzyme is negative. Her ECG does demonstrate T wave normalities compatible with myocardial ischemia in the anterolateral distribution. This is similar to a previous ECG. She has undergone noninvasive evaluation in the past. He has undergone evaluation with a transthoracic echocardiogram. The results are as previously noted. He is pending further evaluation with a pharmacologic stress nuclear imaging s isatu at this time. 3. Abnormal ECG She does have an abnormal ECG suggestive of myocardial ischemia in the anterolateral distribution. She has not had any recent cardiovascular evaluation with additional objective studies for such. She will continue evaluation and care as noted above. 4. Hyperlipidemia She will undergo further evaluation and care. She may need to be considered for lipid-lowering therapy. 5. Hypertension Her blood pressure will be followed. Her medications may need to be adjusted to help bring her blood pressure under better control. 6. Diabetes mellitus She will continue evaluation care per internal medicine. 7. End-stage renal disease on chronic hemodialysis She will continue evaluation care per nephrology. She is scheduled for dialysis today. Hopefully this will help with her volume management which will once again help with her underlying respiratory condition. 8. 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 She has been on anticoagulant therapy. This will have to be placed on hold in preparation for an upcoming diagnostic cardiac catheterization barring an urgent/emergent cardiovascular event in the interim. This note was generated using a voice recognition system and there may be incorrect words, spelling or punctuation that were not noted when reviewing the office note prior to saving.
--- NOTE | 2020-10-11 12:11 | CASEMGMT ---
MARIA GUADALUPE confirmed Gina at [facility] that precert is not needed in order for pt to return. Updates faxed to [facility], MARIA GUADALUPE will continue to follow. JENIFER Sherman
[2020-10-11] MEDS: Gabapentin 100 MG Capsule PO ×2 (12:16→16:30)
[2020-10-11] MEDS: Calcium Carbonate 500 MG Tablet PO ×2 (12:17→16:29)
[2020-10-11] MEDS: Pantoprazole Sodium 40 MG Tablet PO (12:18)
[2020-10-11] MEDS: Pyridoxine HCl 100 MG Tablet PO (12:19)
--- NOTE | 2020-10-11 12:40 | STRESSREP ---
Stress Test Report Date: 10-11-2020 Procedure: Pharmacologic stress nuclear imaging study Indications: Chest pain; abnormal ECG; abnormal transthoracic echocardiogram Consent: Per the patient Procedure: The patient underwent pharmacologic (Regadenoson 0.4mg ) evaluation with a peak heart rate of 85 beats per minute (55%predicted maximal heart rate) and a peak blood pressure of 164/84 mmHg. The baseline ECG demonstrated sinus rhythm; poor R wave progression; T wave abnormality-consider myocardial ischemia-anterolateral. The peak pharmacologic ECG demonstrated no obvious ECG changes. There were no cardiac dysrhythmias pretest, during pharmacologic infusion, or recovery. There was no complaint of chest discomfort during pharmacologic infusion or recovery. The examination was discontinued secondary to completion of protocol. Impression: 1. Pharmacologic (Regadenoson) evaluation 2. Peak pharmacologic ECG with no obvious ECG changes. 3. There were no cardiac dysrhythmias pretest, during pharmacologic infusion, or recovery. 4. Nuclear images pending Myocardial perfusion imaging study: Technique: The patient was injected with 12.0 millicuries of technetium 99m Cardiolite and subsequently rest SPECT Cardiolite nuclear imaging was obtained in the horizontal long, vertical long, and short axis views. The patient underwent pharmacologic (Regadenoson) evaluation with a peak heart rate of 85 beats per minute (55% percent predicted maximal heart rate) and a peak blood pressure of 164/84 mmHg. The patient was injected with 34.3 millicuries of technetium 99m Cardiolite and subsequently stress SPECT Cardiolite nuclear imaging was obtained in the horizontal long, vertical long, and short axis views. A gated Cardiolite study at peak stress was obtained. Interpretation: Rest and stress SPECT Cardiolite nuclear imaging status post realignment, normalization, and attenuation correction demonstrate appearance of subtle diminished tracer uptake in portions of the mid anterior and anteroseptal segments without significant change between rest and stress.. There is diminished end systolic thickening and brightening in the aforementioned areas.. The gated Cardiolite study demonstrates diminished myocardial thickening and inward wall motion in the aforementioned areas.. The reported LVEF is 46%. Impression: 1. Rest and stress SPECT Cardiolite nuclear imaging demonstrate myocardial perfusion changes appearing compatible with an area of previous myocardial injury/infarction with no myocardial perfusion changes considered diagnostic for associated stress-induced myocardial ischemia. 2. The gated Cardiolite study reports an LVEF of 46%. This note was generated with Dragon dictation software. It may contain incorrect words, spelling, and punctuation that were not noted in checking the note before signing.
--- NOTE | 2020-10-11 13:29 | TREXTCA.CO_ITS ---
- Diet 10/11/20 11:57 Diet: Renal diet/Cardiac diet - Routine Orders/Code Status Enema Type: Fleetz Enema Frequency: Daily PRN Suppository Type: Dulcolax 10mg Suppository Frequency: Daily PRN O2 Liters per Minute: 2 O2 Frequency: PRN Keep PO Greater than or Equal to (%): 90 Routine Lab Work: - - Weekly CBC, BMP Code Status: Full Code - Wound(s) Right neck Wound Type: Puncture - Suggestions for Active Care Change Position every (hours): 2 Times a day to sit in chair: 3 - Therapies Physical Therapy: Eval and Treat Occupational Therapy: Eval and Treat - Problem/Diagnosis (1) Chest pain Status: Acute (2) Syncope Status: Acute (3) Anemia Status: Chronic (4) Anxiety and depression Status: Chronic (5) Asthma Status: Chronic (6) CVA (cerebral vascular accident) Status: Chronic (7) Diabetes mellitus, type II Status: Chronic (8) ESRD (end stage renal disease) on dialysis Status: Chronic (9) GERD (gastroesophageal reflux disease) Status: Chronic (10) HLD (hyperlipidemia) Status: Chronic (11) HTN (hypertension) Status: Chronic - Allergies/Procedures Done in Hospital Allergies/Adverse Reactions: Allergies No Known Allergies Allergy (Verified 10/08/20 11:02) Procedures: 2-D Echocardiogram, Stress Test - Type of Care/Length of Stay Estimated LOS: Convalescent Care Less Than 30 days Type of Care Needed: Skilled Rehab Potential: Fair Prognosis: Fair - Additional Orders/Day of Discharge H&P will serve as current which was dated: 10/08/20 Day of Discharge: 10/11/20 - Follow Up Care Primary Care Physician: Po Magaña MD [STAFF PHYSICIAN] - Please follow up with your Primary Care Physician in: 1 Week Please Follow Up With: Nephrology When: Continue follow-up with nephrology/dialysis as scheduled Please Follow Up With: Nehemiah Pardo MD When: 4 Weeks, may see MANAGER OF ENTERPRISE/PA
--- NOTE | 2020-10-11 13:34 | CASEMGMT ---
Addendum entered by Roseline Wilks 10/11/20 14:50: Discharge instructions faxed along with negative COVID test to [facility]. JENIFER Sherman Addendum entered by Roseline Wilks 10/11/20 13:58: Pt's son had told the BUMPER OPERATOR that they did update POA papers in [place] and brought them into the hospital to be scanned into the chart. The papers are not in the chart here, SW let son know. SW also had called [facility], they do not have the [place] POA papers in their system either, SW asked son to bring them into the [facility]p. Son states understanding. JENIFER Sherman Original Note: Pt is ready for discharge back to [facility] today. SW called [facility]now [facility] to set up transport as pt has [facility], ambulette is set up w/Physicians for 4pm. SW called pt's son Jose and let him know pt is set up to leave here at 4pm. SW also let pt know she is set up to leave at 4pm, pt is agreeable. Pt is currently getting dialysis, manager retirement checked w/physician, they will end treatment early, since pt gets dialysis 5 times per week, and she will be able to go at 4pm. SW also let pt's bedside RN know pt is set up to leave at 4pm, SW let Hawa at [facility] also know pt is leaving at 4pm. [facility] will work on precert once pt is there. No further needs, pt to [facility] today. SW will fax orders once they are completed. JENIFER Sherman
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
--- NOTE | 2020-10-11 14:25 | NURSING ---
report called to [facility] and talked with fadumo
--- NOTE | 2020-10-11 14:58 | PHA.DC.MR ---
Pharmacy Service has performed discharge medication reconciliation for this patient. The patient's discharge medication list was reviewed for discrepancies and discrepancies were resolved. Home Medications Apixaban [Eliquis] 2.5 mg PO BID 12/19/19 Atenolol 25 mg PO DAILY 12/19/19 Mirtazapine [Remeron] 45 mg PO QHS 12/19/19 Cinacalcet HCl 30 mg PO DAILY 03/31/20 Duloxetine Hcl [Cymbalta] 30 mg PO DAILY 03/31/20 Hydralazine HCl 100 mg PO TID 03/31/20 Furosemide [Lasix] 80 mg PO DAILY 08/28/20 Pantoprazole Sodium [Protonix] 40 mg PO DAILY 09/14/20 Pyridoxine HCl [Vitamin B-6] 100 mg PO DAILY 09/27/20 Calcium Citrate 500 mg PO BID 09/29/20 Gabapentin [Neurontin] 100 mg PO TID 10/08/20 Hydrocodone/Acetaminophen [Hydrocodon-Acetaminophen 5-325] 1 tablet PO Q6H PRN 10/08/20 Albuterol Aerosols [Ventolin Aerosols] 2.5 mg INHALATION Q2H PRN PRN vial.neb. 10/11/20 Aspirin E.C. [Ecotrin] 81 mg PO DAILY@0800 tablet 10/11/20 Isosorbide Mononitrate [Imdur] 30 mg PO DAILY tablet 10/11/20
--- NOTE | 2020-10-11 16:16 | DIALYSIS ---
Tx discontinued early per Dr. Franklin. Pt being discharged to [facility]. Transport to arrive at 1600. Ran on 3k bath. Tolerated tx well. UF of 2000ml. Used right chest wall dialysis catheter. Lumens closed with heparin per fill volume. Caps placed. Dressing is intact. Changed pd catheter dressing. No problems noted. Report was given to REGGIE Wade.
[2020-10-11] MEDS: Cinacalcet HCl 30 MG Tablet PO (16:31)
[2020-10-11] MEDS: Isosorbide Mononitrate 30 MG Tablet PO (16:33)
== END 2020-10-11 13:31 | disposition skilled nursing facility (03) ==
LOC: ED 13:27 → PCU 13:48
PROVIDERS: Internal Medicine; Nurse Practitioner Family; Admitting Provider Family Medicine; Emergency Provider Emergency Medicine; PCP Family Medicine
DX: R55 Syncope and collapse (principal); R07.89 Other chest pain; E11.22 Type 2 diabetes mellitus with diabetic chronic kidney disease; I12.0 Hypertensive chronic kidney disease with stage 5 chronic kidney disease or end stage renal disease; N18.6 End stage renal disease; E78.5 Hyperlipidemia, unspecified; D63.8 Anemia in other chronic diseases classified elsewhere; F17.210 Nicotine dependence, cigarettes, uncomplicated; F41.9 Anxiety disorder, unspecified; F32.9 Major depressive disorder, single episode, unspecified; J45.909 Unspecified asthma, uncomplicated; K21.9 Gastro-esophageal reflux disease without esophagitis; Z86.73 Personal history of transient ischemic attack (TIA), and cerebral infarction without residual deficits; Z99.2 Dependence on renal dialysis; Z79.899 Other long term (current) drug therapy; Z79.01 Long term (current) use of anticoagulants; Z86.718 Personal history of other venous thrombosis and embolism; G25.3 Myoclonus; E11.40 Type 2 diabetes mellitus with diabetic neuropathy, unspecified; R94.31 Abnormal electrocardiogram [ECG] [EKG]; I08.3 Combined rheumatic disorders of mitral, aortic and tricuspid valves; G89.4 Chronic pain syndrome
CPT/HCPCS: 36415; 71045; 78452; 80048; 80053; 80061; 83735; 84484; 85025; 85027; 85730; 87426; 90937; 93005; 93017; 93306; 94640; 96365; 96366; 96372; 96376; 97161; 97165; 99218; 99251; 99285; 99406; A9500; J7030; A4216; G0257; G0378; G0463; J2785

== ENCOUNTER → 2020-11-03 13:01 | Outpatient (CLI) | payer MEDICARE, MEDICAID, SELFPAY ==
[2020-10-08 14:01] VITALS: BMI 24.4
--- NOTE | 2020-11-03 13:05 | VDUE_ITS ---
Reason For Study: pre op testing Right Arm Left Arm Right cephalic vein is compressible. Left cephalic vein is compressible. Right Cephalic Vein at the shoulder Left Cephalic Vein at the shoulder measures .13 x .15 cm. measures .13 x .16 cm. Right Cephalic Vein mid bicep measures .09 Left Cephalic Vein at mid bicep measures .12 x .11 cm. x .12 cm. Right Cephalic Vein above antecub Cephalic V is too small to assess below this measures .07 x .06 cm. level. Right Cephalic Vein below antecub Left basilic vein is compressible. measures .07 x .09 cm. Basilic vein at bicep measures .2 x .17 cm. Cephalic V below this level is too small to Basilic vein above antecub measures .18 x .19 assess below this level. cm. Right basilic vein is compressible. Basilic vein below antecub measures .14 x .14 Right Basilic Vein mid bicep measures .18 cm. x .2 cm. Basilic vein in the forearm measures .17 Right Basilic Vein above antecub measures .22 x .19 cm. x .23 cm. Basilic vein at the wrist measures .13 x .14 Right Basilic Vein below antecub measures .11 cm. x .11. cm. Brachial Artery .33 x .34 cm Right Basilic Vein in the forearm Brachial Artery 92.0 cm/s measures .14 x .14 cm. Radial Artery .12 x .13 cm. Right Basilic Vein at the wrist measures .12 Radial Artery 79.0 cm/s. x .12 cm. Brachial Artery .35 x .35 cm Brachial Artery 88.1 cm/s Radial Artery .2 x .19 cm. Radial Artery 81.6 cm/s. VL/Saphenous Vein Mapping, Bilat Interpretation Summary Diminutive cephalic veins noted bilaterally and essentially nonvisible in the f orearms. Very small to diminutive bilateral upper arm basilic veins Adequate diameter and flow bilateral brachial arteries Small bilateral radial arteries Ordering Physician: Donte Trotter Performed By: Anthony Dozier RVT ?
== END ==
PROVIDERS: PCP Family Medicine; Referring Provider Surgery; Visit Provider Surgery
DX: Z01.818 Encounter for other preprocedural examination (principal); N18.6 End stage renal disease
CPT/HCPCS: 93970; 93985

== ENCOUNTER 2020-11-25 13:21 | Emergency (ER) | payer MEDICARE, MEDICAID, SELFPAY ==
[2020-11-09 06:12] VITALS: BMI 24.8
[2020-11-25 13:22] VITALS: BP 152/73; PULSE 57; RESP 16; TEMP 37.2; O2SAT 100; BMI 20.7
--- NOTE | 2020-11-25 14:04 | EKG12_ITS ---
Test Reason : WEAKNESS Blood Pressure : / mmHG Vent. Rate : 051 BPM Atrial Rate : 051 BPM P-R Int : 178 ms QRS Dur : 086 ms QT Int : 560 ms P-R-T Axes : 070 -14 129 degrees QTc Int : 516 ms Sinus bradycardia T wave abnormality, consider anterolateral ischemia Prolonged QT Abnormal ECG Confirmed by TERE LEMON, JAN ([id number]), newspaper managing editor BIRDIE TORRES ([id number]) on 11/26/2020 10:21:34 AM Referred By: LIZET Confirmed By:JAN CARRANZA MD
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
[2020-11-25 14:36] LABS: Absolute Lymphocyte Count 1.22 X10^3/uL (0.83-4.51); Absolute Neutrophil Count 3.9 X10^3/uL (2.0-7.7); Basophil# 0.02 X10^3/uL; Basophil% 0.3 % (0-1); Eosinophil# 0.13 X10^3/uL; Eosinophils% 2.3 % (0-5); Hematocrit 27.8 % (37-47); Hemoglobin 8.5 g/dL (12.0-15.0); Lymphocyte # 1.22 X10^3/ul (0.83-4.51); Lymphocyte % 21.2 % (19-41); Mean Corp Hgb Conc 30.6 g/dL (32-36); Mean Corpuscular Hgb 28.6 pg (27.0-32.0); Mean Corpuscular Volume 93.6 fL (81-99); Mean Platelet Vol. 9.8 fl (6.2-12.0); Monocyte# 0.45 X10^3/uL; Monocyte% 7.8 % (0-10); NRBC Flagged by Analyzer 0 % (0-5); Neutrophil # 3.92 X10^3/uL (2.7-7.7); Neutrophil % 68.1 % (47-70); Platelet Count 178 K/mm3 (150-450); RBC Distribution Width CV 14.1 % (11.6-14.6); RBC Distribution Width SD 48.9 fl (35.1-43.9); Red Blood Count 2.97 M/mm3 (4.2-5.4); White Blood Count 5.8 K/mm3 (4.4-11.0)
[2020-11-25 14:49] LABS: AST(SGOT) 19 U/L (15-37); Alanine Aminotransfer ALT/SGPT 13 U/L (13-56); Albumin, Serum 3.1 g/dL (3.2-5.0); Alkaline Phosphatase 125 U/L (45-117); Anion Gap 4 (5-15); BUN 24 mg/dL (7-18); BUN/Creat Ratio 5.1 RATIO (10-20); Bilirubin, Direct 0.08 mg/dL (0.00-0.30); Calcium,Total 9.2 mg/dL (8.5-10.1); Chloride 101 mmol/L (98-107); Creatinine, Serum 4.69 mg/dL (0.55-1.02); EST Glomerular Filtration Rate 10 mL/min (>60); Est Glom Filt Rate - Afr Amer 12 mL/min (>60); Estimated Creatinine Clearance 11.51 ml/min; Globulin 4.1 g/dL (2.2-4.2); Glucose 92 mg/dL (74-106); Potassium 3.5 mmol/L (3.5-5.1); Protein, Total 7.2 g/dL (6.4-8.2); Sodium Level 138 mmol/L (136-145)
[2020-11-25] MEDS: 0.9% Normal Saline 1,000 ML 250 ML IV (15:02)
[2020-11-25] MEDS: Ondansetron ODT 4 MG Tablet PO (15:16)
[2020-11-25 16:31] VITALS: BP 154/72; PULSE 58; RESP 22; O2SAT 100
[2020-11-25 17:10] LABS: Bacteria 0 SEEN /hpf (None Seen); Mucous, Urine 0 SEEN /hpf (<or=2+); Squamous Epithelial Cells - UA 0 SEEN /hpf (5-10); White Blood Cells 0 SEEN /hpf (0-5)
[2020-11-25 17:12] LABS: Color, Urine Yellow (Yellow); Glucose, Dipstick Normal (Normal); Ketone-Dipstick Negative (Negative); Leukocyte Esterase-Dipstick Negative /ul (Negative); Nitrite-Dipstick Negative (Negative); Occult Blood-Urine 50 /ul (Negative); Protein-Dipstick 30 mg/dl (Negative); Specific Gravity, Urine 1.015 (1.002-1.030); Urine Bilirubin Dipstick Negative (Negative); Urine Clarity Clear (Clear); Urine Urobilinogen Normal (Normal)
[2020-11-25 17:22] LABS: Red Blood Cells-Urine 10-25 SEEN /hpf (0-5)
[2020-11-25 18:11] VITALS: BP 157/69; PULSE 67; RESP 18; O2SAT 95
[2020-11-25 19:37] VITALS: BP 161/69; PULSE 69; RESP 20; O2SAT 95
== END 2020-11-25 19:39 | disposition home or self-care (01) ==
PROVIDERS: Emergency Provider Emergency Medicine; PCP Family Medicine
DX: R11.0 Nausea (principal); F17.210 Nicotine dependence, cigarettes, uncomplicated; I12.0 Hypertensive chronic kidney disease with stage 5 chronic kidney disease or end stage renal disease; E11.22 Type 2 diabetes mellitus with diabetic chronic kidney disease; N18.6 End stage renal disease; E78.5 Hyperlipidemia, unspecified; K21.9 Gastro-esophageal reflux disease without esophagitis; F32.9 Major depressive disorder, single episode, unspecified; F41.9 Anxiety disorder, unspecified; Z79.82 Long term (current) use of aspirin; Z79.01 Long term (current) use of anticoagulants; Z99.2 Dependence on renal dialysis; Z79.899 Other long term (current) drug therapy; Z86.718 Personal history of other venous thrombosis and embolism; Z86.73 Personal history of transient ischemic attack (TIA), and cerebral infarction without residual deficits
CPT/HCPCS: 80048; 80076; 81001; 85025; 93005; 99284; A4216

== ENCOUNTER 2020-11-30 06:56 | Inpatient (IN) | payer MEDICARE, MEDICAID, SELFPAY ==
[2020-11-30] VITALS (11 sets, daily range): BP systolic 111–168; BP diastolic 59–127; PULSE 60–70; RESP 16–20; TEMP 36.3–36.9; O2SAT 90–98; BMI 23.2; BMI 22.6
--- NOTE | 2020-11-30 07:17 | CT_ITS ---
STUDY: CT ABDOMEN AND PELVIS WITHOUT CONTRAST REASON FOR EXAM: Female, 70 years old. Pain RADIATION DOSAGE (If Supplied By Facility): CTDIvol = ( 8.22 ) mGy, DLP = ( 381.97 ) mGycm TECHNIQUE: Transaxial images were obtained from the dome of the diaphragm to the symphysis pubis without oral contrast, and without intravenous contrast. Sagittal and coronal images were reconstructed. Individualized dose optimization techniques were used for this CT. COMPARISON: 09/28/2020 FINDINGS: Moderate bilateral pleural effusions with bibasilar atelectasis. The visualized portions of the heart are within normal limits. No change in the 3 cm cyst in the medial segment left lobe of liver. There are surgical clips in the gallbladder fossa consistent with a prior cholecystectomy. Normal spleen. Normal pancreas. Normal bilateral adrenal glands. Normal right kidney. Normal left kidney. Normal visualized stomach. Normal small intestine. Normal colon. The appendix is visualized and appears normal. There is diffuse atherosclerotic calcification of the abdominal aorta, without a demonstrated aneurysm. There is an IVC filter in place. Normal retroperitoneum. Normal urinary bladder. Peritoneal dialysis catheter with the tip in the right side of the pelvis with minimal ascites and no pseudocyst. Normal abdominal wall. Status post bilateral hip arthroplasty which produces streak artifact obscures the pelvis. CT/Abdomen/Pelvis without Cont IMPRESSION: No acute abnormality. Electronically Signed: Peña Linder MD at 8:19 EDT Tel , Service support ,
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
[2020-11-30 07:25] LABS: Basophil# 0.03 X10^3/uL; Basophil% 0.4 % (0-1); Eosinophil# 0.31 X10^3/uL; Eosinophils% 4.2 % (0-5); Hematocrit 26.2 % (37-47); Lymphocyte % 20.4 % (19-41); Mean Corp Hgb Conc 30.5 g/dL (32-36); Mean Corpuscular Hgb 28.8 pg (27.0-32.0); Mean Corpuscular Volume 94.2 fL (81-99); Mean Platelet Vol. 9.2 fl (6.2-12.0); Monocyte# 0.47 X10^3/uL; Monocyte% 6.4 % (0-10); NRBC Flagged by Analyzer 0 % (0-5); Neutrophil # 5.03 X10^3/uL (2.7-7.7); Neutrophil % 68.3 % (47-70); Platelet Count 220 K/mm3 (150-450); RBC Distribution Width CV 14.3 % (11.6-14.6); RBC Distribution Width SD 48.5 fl (35.1-43.9); Red Blood Count 2.78 M/mm3 (4.2-5.4); White Blood Count 7.4 K/mm3 (4.4-11.0)
[2020-11-30] MEDS: Ondansetron 4 MG/2 ML Vial IV (07:29)
[2020-11-30] MEDS: Morphine 4 MG/ML Syringe IV (07:29)
[2020-11-30 07:52] LABS: ALB/GLOB Ratio 0.6 RATIO (0.9-2.4); AST(SGOT) 30 U/L (15-37); Alanine Aminotransfer ALT/SGPT 16 U/L (13-56); Albumin, Serum 2.9 g/dL (3.2-5.0); Alkaline Phosphatase 122 U/L (45-117); Anion Gap 6 (5-15); BUN 22 mg/dL (7-18); BUN/Creat Ratio 5.4 RATIO (10-20); Calcium,Total 8.8 mg/dL (8.5-10.1); Chloride 96 mmol/L (98-107); Creatinine, Serum 4.08 mg/dL (0.55-1.02); EST Glomerular Filtration Rate 12 mL/min (>60); Est Glom Filt Rate - Afr Amer 14 mL/min (>60); Estimated Creatinine Clearance 13.79 ml/min; Globulin 4.5 g/dL (2.2-4.2); Glucose 90 mg/dL (74-106); Potassium 3.8 mmol/L (3.5-5.1); Protein, Total 7.4 g/dL (6.4-8.2); Sodium Level 135 mmol/L (136-145)
[2020-11-30 08:07] LABS: Lactic Acid 0.6 mmol/L (0.4-1.9)
[2020-11-30 08:56] LABS: Bacteria 0 SEEN /hpf (None Seen); Mucous, Urine 0 SEEN /hpf (<or=2+); Squamous Epithelial Cells - UA 0 SEEN /hpf (5-10); White Blood Cells 0 SEEN /hpf (0-5)
[2020-11-30 09:03] LABS: Color, Urine Yellow (Yellow); Glucose, Dipstick Normal (Normal); Ketone-Dipstick Negative (Negative); Leukocyte Esterase-Dipstick 25 /ul (Negative); Nitrite-Dipstick Negative (Negative); Occult Blood-Urine 25 /ul (Negative); Protein-Dipstick 30 mg/dl (Negative); Urine Bilirubin Dipstick Negative (Negative); Urine Clarity Clear (Clear); Urine Urobilinogen Normal (Normal)
[2020-11-30 09:08] LABS: Red Blood Cells-Urine 0-5 SEEN /hpf (0-5)
--- NOTE | 2020-11-30 10:07 | NURSING ---
MED SURG OBS KORAM INTRACTABLE ABD PAIN
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
[2020-11-30] MEDS: DULoxetine Hcl 30 MG Capsule PO (11:30)
[2020-11-30] MEDS: Sucralfate 1 GM Tablet PO ×3 (11:30→21:52)
[2020-11-30] MEDS: Isosorbide Mononitrate 30 MG Tablet PO (11:31)
[2020-11-30] MEDS: Atenolol 25 MG Tablet PO (11:34)
[2020-11-30] MEDS: Furosemide 80 MG Tablet PO (11:34)
[2020-11-30] MEDS: amLODIPine 10 MG Tablet PO (11:34)
[2020-11-30] MEDS: Pantoprazole Sodium 40 MG Tablet PO (11:34)
[2020-11-30] MEDS: Gabapentin 300 MG Capsule PO ×2 (11:35→16:38)
[2020-11-30] MEDS: Dicyclomine 10 MG Capsule 20 MG PO ×2 (11:35→16:38)
[2020-11-30] MEDS: HYDROcodone Bitartrate/Apap 5/325 Tablet PO (11:36)
[2020-11-30] MEDS: Calcium Acetate 667 MG Capsule PO ×2 (13:52→16:38)
[2020-11-30] MEDS: hydrALAZINE 50 MG Tablet 100 MG PO ×2 (13:53→21:51)
[2020-11-30] MEDS: Morphine 2 MG/ML Syringe IV ×3 (15:03→23:06)
[2020-11-30] MEDS: 0.9% Saline Lock 10 ML Syringe IV (15:04)
--- NOTE | 2020-11-30 16:13 | CHAPLAIN ---
Type of Pastoral Visit _x__ Initial Visit ___ Follow-up Visit ___ On-call Visit ___ General Patient Visit ___ Spiritual Assessment ___ Family Conference ___ Bereavement ___ Rapid Response ___ Code Blue ___ Other (describe below) Pastoral Care Referral From _x__ Patient ___ Family ___ Nurse ___ Physician ___ Occupational Medicine Physician ___ Analog Ic Design Architect ___ Other (describe below) Sacrament/Intervention _x__ Active listening ___ Anointing ___ Catholic ___ Bereavement ___ Communion _x__ Flaca exploration ___ ___ Life review _x__ Prayer ___ Reconciliation ___ Sacrament of Sick _x__ Supportive presence ___ Wedding ___ Other (describe below) Pastoral Comments
[2020-11-30] MEDS: Mirtazapine 15 MG Tablet 45 MG PO (21:52)
[2020-11-30] MEDS: Ondansetron ODT 4 MG Tablet PO (23:08)
[2020-12-01] VITALS (23 sets, daily range): BP systolic 108–147; BP diastolic 44–78; PULSE 54–75; RESP 16–20; TEMP 36.1–37.1; O2SAT 92–100; BMI 22.6
--- NOTE | 2020-12-01 06:00 | EKG12_ITS ---
Test Reason : PRE-OP Blood Pressure : / mmHG Vent. Rate : 062 BPM Atrial Rate : 062 BPM P-R Int : 204 ms QRS Dur : 084 ms QT Int : 478 ms P-R-T Axes : 064 -04 039 degrees QTc Int : 485 ms Normal sinus rhythm T wave abnormality, consider anterior ischemia Prolonged QT Abnormal ECG When compared with ECG of 25-NOV-2020 14:11, T wave inversion no longer evident in Lateral leads Confirmed by TERE LEMON, JAN ([id number]), technical writer and editor BIRDIE TORRES ([id number]) on 12/02/2020 12:43:07 PM Referred By: BRENNAN Confirmed By:JAN CARRANZA MD
[2020-12-01] MEDS: Morphine 2 MG/ML Syringe IV ×3 (06:06→20:11)
[2020-12-01 07:25] LABS: Absolute Lymphocyte Count 1.57 X10^3/uL (0.83-4.51); Absolute Neutrophil Count 3.7 X10^3/uL (2.0-7.7); Basophil# 0.04 X10^3/uL; Basophil% 0.7 % (0-1); Eosinophil# 0.32 X10^3/uL; Eosinophils% 5.2 % (0-5); Hematocrit 22.4 % (37-47); Hemoglobin 6.7 g/dL (12.0-15.0); Lymphocyte # 1.57 X10^3/ul (0.83-4.51); Lymphocyte % 25.6 % (19-41); Mean Corp Hgb Conc 29.9 g/dL (32-36); Mean Corpuscular Hgb 28.6 pg (27.0-32.0); Mean Corpuscular Volume 95.7 fL (81-99); Mean Platelet Vol. 9.2 fl (6.2-12.0); Monocyte# 0.45 X10^3/uL; Monocyte% 7.3 % (0-10); NRBC Flagged by Analyzer 0 % (0-5); Neutrophil # 3.73 X10^3/uL (2.7-7.7); Neutrophil % 60.9 % (47-70); Platelet Count 215 K/mm3 (150-450); RBC Distribution Width CV 14.7 % (11.6-14.6); RBC Distribution Width SD 50.8 fl (35.1-43.9); Red Blood Count 2.34 M/mm3 (4.2-5.4); White Blood Count 6.1 K/mm3 (4.4-11.0)
[2020-12-01 07:59] LABS: Anion Gap 5 (5-15); BUN 34 mg/dL (7-18); BUN/Creat Ratio 5.7 RATIO (10-20); Calcium,Total 8.6 mg/dL (8.5-10.1); Chloride 97 mmol/L (98-107); Creatinine, Serum 5.99 mg/dL (0.55-1.02); EST Glomerular Filtration Rate 7 mL/min (>60); Est Glom Filt Rate - Afr Amer 9 mL/min (>60); Estimated Creatinine Clearance 9.07 ml/min; Glucose 79 mg/dL (74-106); Potassium 3.9 mmol/L (3.5-5.1); Sodium Level 132 mmol/L (136-145)
[2020-12-01 08:26] LABS: International Normalized Ratio 1.1; Prothrombin Time (Protime)PT. 13.4 SECONDS (11.7-14.9)
[2020-12-01 08:27] LABS: Partial Thromboplast Time 34.9 Seconds (24.1-36.2)
[2020-12-01 08:35] LABS: Hemoglobin A1c < 3.8 % (3.8-5.6)
[2020-12-01] MEDS: Atenolol 25 MG Tablet PO (10:03)
[2020-12-01] MEDS: Pantoprazole Sodium 40 MG Tablet PO (10:03)
[2020-12-01] MEDS: amLODIPine 10 MG Tablet PO (10:03)
[2020-12-01] MEDS: Isosorbide Mononitrate 30 MG Tablet PO (10:03)
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
--- NOTE | 2020-12-01 10:50 | NURSING ---
while ambulating in hallway with therapy, pt became dizzy and lethargic, arousable but placed in recliner. vitals taken and stable. returned to bed and will continue to monitor.
--- NOTE | 2020-12-01 11:55 | NURSING ---
2 units PRBC administered via dialysis.
--- NOTE | 2020-12-01 12:02 | PCM.PN.SRG ---
Subjective Subjective Evaluated patient resting in bed this morning. She noted her pain has continued with no improvement. She denies nausea, vomiting. Her Hgb dropped to 6.7 today. She is scheduled to get 2 units PRBC. Patient mentioned to nephrology that she had dark stools which started last night. She had a colonoscopy approximately 3 years ago. She states this was completed in [place]. Per patient, she had an upper/lower which was unremarkable. She noted at that time she had completed those procedures due to a decrease in her blood count. Objective Data Objective Data Vital Signs: Vital Signs Temp Pulse Resp BP Pulse Ox 98.8 F 62 16 138/70 H 98 12/01/20 10:00 12/01/20 10:45 12/01/20 10:45 12/01/20 10:45 12/01/20 10:45 Oxygen Delivery Method Room Air Weight: 153 lb 0.013 oz Body Mass Index (BMI) 22.6 Intake & Output: Intake and Output for Last 24 Hours 11/29/20 11/30/20 12/01/20 23:59 23:59 23:59 Intake Total 0 / 0 Output Total 75 / 75 Balance -75 / -75 0 / 0 Lab / Micro Data Result Diagrams: 12/01/20 06:40 12/01/20 06:40 Labs: Laboratory Results - last 24 hr 12/01/20 12/01/20 12/01/20 06:40 06:40 06:40 WBC 6.1 RBC 2.34 L Hgb 6.7 L Hct 22.4 L MCV 95.7 MCH 28.6 MCHC 29.9 L RDW Std Deviation 50.8 H RDW Coeff of Destiny 14.7 H Plt Count 215 MPV 9.2 Immature Gran % (Auto) 0.300 Neut % (Auto) 60.9 Lymph % (Auto) 25.6 [place] % (Auto) 7.3 Eos % (Auto) 5.2 H Baso % (Auto) 0.7 Absolute Neuts (auto) 3.7 Absolute Lymphs (auto) 1.57 Nucleated RBC % 0 PT 13.4 INR 1.1 APTT 34.9 Sodium 132 L Potassium 3.9 Chloride 97 L Carbon Dioxide 30.0 Anion Gap 5 BUN 34 H Creatinine 5.99 H Estim Creat Clear Calc 9.07 Est GFR (MDRD) Af Amer 9 L Est GFR (MDRD) Non-Af 7 L BUN/Creatinine Ratio 5.7 L Glucose 79 Hemoglobin A1c Calcium 8.6 Blood Type Antibody Screen Crossmatch 12/01/20 12/01/20 06:40 08:12 WBC RBC Hgb Hct MCV MCH MCHC RDW Std Deviation RDW Coeff of Destiny Plt Count MPV Immature Gran % (Auto) Neut % (Auto) Lymph % (Auto) [place] % (Auto) Eos % (Auto) Baso % (Auto) Absolute Neuts (auto) Absolute Lymphs (auto) Nucleated RBC % PT INR APTT Sodium Potassium Chloride Carbon Dioxide Anion Gap BUN Creatinine Estim Creat Clear Calc Est GFR (MDRD) Af Amer Est GFR (MDRD) Non-Af BUN/Creatinine Ratio Glucose Hemoglobin A1c < 3.8 L Calcium Blood Type A POSITIVE Antibody Screen NEGATIVE Crossmatch See Detail Physical Exam Narrative Abdomen- distended. Tender to palpation especially in the low pelvic region with guarding. There is notable dark blood within the peritoneal catheter. Assessment & Plan Assessment/Plan (1) Anemia: QUALIFIERS: Anemia type: unspecified type Qualified Code(s): D64.9 - Anemia, unspecified PLAN: Obtain stool occult blood Plan for Dr. Trotter to perform an upper and lower endoscopy with possible biopsies, possible cessation of bleeding tomorrow, 12/01 at 0700 AM. Perform bowel prep later today following catheter removal. Patient receiving 2 units PRBC today (2) Problem with dialysis access: QUALIFIERS: Encounter type: initial encounter Qualified Code(s): T82.898A - Other specified complication of vascular prosthetic devices, implants and grafts, initial encounter PLAN: Patient was scheduled for an elective removal of PD catheters and fistula creation with Dr. Trotter on Sunday. Patient came into the ED noting intractable abdominal pain with reported normal CT imaging of the abdomen. Dr. Trotter will plan to remove the peritoneal dialysis catheters with this being the potential source of pain. Although there is no guarantees that her pain will resolve. She is also now having dark stool, decrease in Hgb, and following further review of the CT scan of the abdomen, it was noted she has some distortion of the tissue in the rectus sheath questioning possible hematoma of unknown source. At this time her elective fistula procedure is being placed on hold until further workup for anemia has been completed. She continues to have dialysis via chest catheters. Patient has had the opportunity to ask and have questions answered. Patient verbally understands and agrees with the plan. (3) Intractable abdominal pain: PLAN: Unknown source of etiology at this time (4) Status post peritoneal dialysis: PLAN: Removal of catheter today. Continue dialysis via tunneled right chest dialysis catheters. Visit Charges Inpatient E&M: 16661 Init Hosp L1
--- NOTE | 2020-12-01 12:49 | PN.HOSP_ITS ---
Subjective Subjective Patient seen and examined. She still complains of lower abdominal pain. She is also complaining of having dark stools. Review of systems is otherwise negative. She is due for peritoneal dialysis catheter removal today. Hemoglobin has dropped to 6.7 today. Objective Data Objective Data Vital Signs: Vital Signs Temp Pulse Resp BP Pulse Ox 98.8 F 62 16 138/70 H 98 12/01/20 10:00 12/01/20 10:45 12/01/20 10:45 12/01/20 10:45 12/01/20 10:45 Oxygen Delivery Method Room Air Weight: 153 lb 0.013 oz Body Mass Index (BMI) 22.6 Intake & Output: Intake and Output for Last 24 Hours 11/29/20 11/30/20 12/01/20 23:59 23:59 23:59 Intake Total 0 / 0 Output Total 75 / 75 Balance -75 / -75 0 / 0 Lab / Micro Data Result Diagrams: 12/01/20 06:40 12/01/20 06:40 Labs: Laboratory Results - last 24 hr 12/01/20 12/01/20 12/01/20 06:40 06:40 06:40 WBC 6.1 RBC 2.34 L Hgb 6.7 L Hct 22.4 L MCV 95.7 MCH 28.6 MCHC 29.9 L RDW Std Deviation 50.8 H RDW Coeff of Destiny 14.7 H Plt Count 215 MPV 9.2 Immature Gran % (Auto) 0.300 Neut % (Auto) 60.9 Lymph % (Auto) 25.6 [place] % (Auto) 7.3 Eos % (Auto) 5.2 H Baso % (Auto) 0.7 Absolute Neuts (auto) 3.7 Absolute Lymphs (auto) 1.57 Nucleated RBC % 0 PT 13.4 INR 1.1 APTT 34.9 Sodium 132 L Potassium 3.9 Chloride 97 L Carbon Dioxide 30.0 Anion Gap 5 BUN 34 H Creatinine 5.99 H Estim Creat Clear Calc 9.07 Est GFR (MDRD) Af Amer 9 L Est GFR (MDRD) Non-Af 7 L BUN/Creatinine Ratio 5.7 L Glucose 79 Hemoglobin A1c Calcium 8.6 Blood Type Antibody Screen Crossmatch 12/01/20 12/01/20 06:40 08:12 WBC RBC Hgb Hct MCV MCH MCHC RDW Std Deviation RDW Coeff of Destiny Plt Count MPV Immature Gran % (Auto) Neut % (Auto) Lymph % (Auto) [place] % (Auto) Eos % (Auto) Baso % (Auto) Absolute Neuts (auto) Absolute Lymphs (auto) Nucleated RBC % PT INR APTT Sodium Potassium Chloride Carbon Dioxide Anion Gap BUN Creatinine Estim Creat Clear Calc Est GFR (MDRD) Af Amer Est GFR (MDRD) Non-Af BUN/Creatinine Ratio Glucose Hemoglobin A1c < 3.8 L Calcium Blood Type A POSITIVE Antibody Screen NEGATIVE Crossmatch See Detail Physical Exam Const alert and oriented x3 General Appearance: cooperative HEENT normocephalic, head/scalp atraumatic, hearing grossly normal bilaterally and moist oral mucous membranes Head and Scalp: normocephalic Eyes PERRL, EOMs intact bilaterally and conjunctivae normal Neck no lymphadenopathy, supple, no JVD and no carotid bruits Resp normal respiratory effort, no retractions, no use of accessory muscles and clear to auscultation bilaterally Cardio regular rate, regular rhythm, S1 normal heart sound, S2 normal heart sound and no murmurs GI normal to inspection, nondistended, normoactive bowel sounds and soft to palpation GI Narrative: mild suprapubic tenderness, no guarding or rebound tenderness. Suprapubic catheter in place. Extremity normal to inspection, full ROM and no clubbing, cyanosis or edema Peripheral Pulses: Yes pulses 2+ throughout Skin no rashes or lesions noted Neuro oriented x3 Sensorium / Orientation: awake and alert Psych affect normal Assessment & Plan Assessment/Plan (1) Intractable abdominal pain: PLAN: #Intractable abdominal pain * still having pain. * for peritoneal dialysis catheter removal today * on tylenol and oxycodone as well as IV morphine prn * #Acute on chronic anemia * Hb today is 6.7. was 8 on admission * says she is having dark stools. * She does have a history of chronic anemia and had EGD in April 2020 which showed some gastritis but was otherwise negative. She also says she had a colonoscopy 3 years ago in [place] which was negative. * : Lovenox. Put patient on IV PPI twice daily. Continue sucralfate. * general surgery on board * transfuse with 2 units of PRBCs * #Hypertension: On amlodipine and furosemide as well as hydralazine and atenolol #ESRD: * On hemodialysis via dialysis catheter in the chest. * She has stopped using the peritoneal dialysis catheter as he she is due to have an AV fistula placed later this week. * On PhosLo and lasix * nephrology on board. has dialysis MWF. * for dialysis today * #Depression: On mirtazapine and duloxetine #DVT prophylaxis:SCDs. No anticoagulation o/a of acute on chronic ahemia Code status: full code * Visit Charges Inpatient E&M: 62710 Subs Hosp L3
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
--- NOTE | 2020-12-01 15:29 | DIALYSIS ---
Hemodialysis x3.5 hours completed at 1515 on a 3K bath, tolerated well, UF 2000mL, received 2 units PRBCs, tolerated blood transfusion well, no signs symptoms of transfusion reaction, accessed via right chest tunneled dialysis catheter, worked well, lines reversed 1 hr into tx due to occasional high arterial pressures, next tx planned for Sunday
--- NOTE | 2020-12-01 15:29 | NURSING ---
pt transported off unit at this time via bed
[2020-12-01] MEDS: Cefazolin 2 GM in 0.9% Normal Saline 100 ML IV (16:56)
[2020-12-01] MEDS: Bupivacaine Mpf 0.5% 30 ML VIAL (17:30)
--- NOTE | 2020-12-01 17:34 | PCM.OPRPT ---
Problems Associated Problem List Diagnoses (1) Problem with dialysis access: Report of Operation Date of Procedure: 12/01/20 Pre-Operative Diagnosis: Problem with peritoneal dialysis catheter malfunction and bloody thrombosis Post-Operative Diagnosis: Same Surgery/Procedure Performed:: Removal left lower quadrant tunneled peritoneal dialysis catheter Description of Surgical Findings:: Timeout and informed consent was obtained. 70-year-old female was taken to the operating placement table underwent general anesthesia. Ancef 2 g were given intravenously. The abdomen sterilely prepped and draped. Where needed to 0.5% Marcaine was used as a local anesthetic. A total of 8 cc was used. A transverse incision was made in the left lower quadrant at the site of the previous transverse incision sharp and blunt dissection was used to identify the catheter. It was easily released from the abdomen. 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 There was some light trejo material at the very tip. Cut the catheter put is in the specimen container and sent for Gram stain culture and sensitivity. There was no obvious purulence. I dissected free the distal cuff. I then made an incision at the catheter exit site at the skin and the secondary cuff was at that position and easily dissected free. The remnants of the catheter was then completely removed. I used a [id number] suture of 3-0 Vicryl to close the anterior rectus sheath. Skin edges were approximated opted for Monocryl subdermal stitches. Sterile dressings applied. Sponge and instrument and needle counts reported the surgeon to be correct. Blood loss was minimal. She tolerated the procedure well. There is no apparent complication. Donte Trotter M.D., F.A.C.S. Type of Anesthesia: General Anesthesiologist: Miguel Angel Erickson
[2020-12-01] MEDS: Ipratropium/Albuterol Sulfate 3 ML AMPUL.NEB INHALATION (18:05)
[2020-12-01 18:41] LABS: Bedside Glucose 96 mg/dL (70-110)
[2020-12-01] MEDS: Bisacodyl 5 MG Tablet 20 MG PO (20:10)
[2020-12-01] MEDS: 0.9% Saline Lock 10 ML Syringe IV (20:11)
[2020-12-01] MEDS: Sucralfate 1 GM Tablet PO (21:04)
[2020-12-01] MEDS: Ondansetron ODT 4 MG Tablet PO (21:05)
[2020-12-01] MEDS: Polyethylene Glycol 3350 BOWEL PREP PO (21:05)
[2020-12-01] MEDS: Mirtazapine 15 MG Tablet 45 MG PO (21:07)
[2020-12-01] MEDS: Dicyclomine 10 MG Capsule 20 MG PO (21:08)
[2020-12-01] MEDS: Gabapentin 300 MG Capsule PO (21:09)
[2020-12-01] MEDS: Vancomycin IV 1,000 MG/200 ML BAG 200 MG IV (23:10)
[2020-12-02] VITALS (13 sets, daily range): BP systolic 120–153; BP diastolic 59–79; PULSE 57–63; RESP 14–18; TEMP 35.9–36.8; O2SAT 93–100
--- NOTE | 2020-12-02 02:23 | NURSING ---
call placed to lab at 0223 to let them know to draw labs at 0400 for procedure at 0600.
[2020-12-02 04:24] LABS: Absolute Lymphocyte Count 0.56 X10^3/uL (0.83-4.51); Absolute Neutrophil Count 7.3 X10^3/uL (2.0-7.7); Basophil# 0.01 X10^3/uL; Basophil% 0.1 % (0-1); Differential Indicated SCAN CRITERIA MET; Hemoglobin 9.4 g/dL (12.0-15.0); Lymphocyte # 0.56 X10^3/ul (0.83-4.51); Lymphocyte % 6.9 % (19-41); Mean Corp Hgb Conc 31.3 g/dL (32-36); Mean Corpuscular Hgb 28.8 pg (27.0-32.0); Mean Platelet Vol. 9.3 fl (6.2-12.0); Monocyte# 0.32 X10^3/uL; Monocyte% 3.9 % (0-10); NRBC Flagged by Analyzer 0 % (0-5); Neutrophil # 7.25 X10^3/uL (2.7-7.7); Neutrophil % 88.7 % (47-70); POSITIVE DIFFERENTIAL YES; Platelet Count 159 K/mm3 (150-450); RBC Distribution Width CV 14.7 % (11.6-14.6); RBC Distribution Width SD 49.2 fl (35.1-43.9); Red Blood Count 3.26 M/mm3 (4.2-5.4); White Blood Count 8.2 K/mm3 (4.4-11.0)
[2020-12-02 04:29] LABS: International Normalized Ratio 1.1; Prothrombin Time (Protime)PT. 13.6 SECONDS (11.7-14.9)
[2020-12-02 04:30] LABS: Partial Thromboplast Time 32.8 Seconds (24.1-36.2)
--- NOTE | 2020-12-02 04:30 | PCM.RX.CS ---
Consult Pharmacy has been consulted to manage selected antiobiotic: Vancomycin Type of Consult: New start Microbiology: Microbiology 12/01/20 Unknown Catheter - Other Wound Culture - Preliminary 12/01/20 15:05 Interface Orders SARS-CoV-2 Antigen (Rapid) - Final Weight used for dosin.4 kg Estimated Creatinine Clearance: DIALYSIS Pharmacy Plan for Drug Dosing: Pharmacy Service will continue to monitor and adjust dosing as required. Medications Vancomycin HCl () 500 mg in 100 mls @ 100 mls/hr IV X1 ONE Stop: 12/03/20 10:59 Discontinued Medications Vancomycin HCl (Vancomycin) 1,000 mg in 200 mls @ 200 mls/hr IV X1 ONE Stop: 12/01/20 23:29 Last Admin: 12/02/20 00:10 Dose: Infused Documented by: Follow-Up Labs: Trough Vancomycin Labs to be done on [date and time ordered]: RANDOM LEVEL 6/4 PRE DIALYSIS
[2020-12-02 04:43] LABS: Anion Gap 8 (5-15); BUN 18 mg/dL (7-18); BUN/Creat Ratio 4.6 RATIO (10-20); Calcium,Total 8.3 mg/dL (8.5-10.1); Chloride 94 mmol/L (98-107); Creatinine, Serum 3.94 mg/dL (0.55-1.02); EST Glomerular Filtration Rate 12 mL/min (>60); Est Glom Filt Rate - Afr Amer 15 mL/min (>60); Estimated Creatinine Clearance 13.79 ml/min; Glucose 138 mg/dL (74-106); Potassium 4.1 mmol/L (3.5-5.1); Sodium Level 130 mmol/L (136-145)
--- NOTE | 2020-12-02 05:16 | RAD_ITS ---
HISTORY: Abdominal distention. 3 views of the abdomen. Comparison study most recently a CT scan of the abdomen and pelvis from November 30, 2020. Findings: Basilar atelectasis and pleural effusions persist. Multiple air-fluid levels within dilated loops of small bowel appears to be new since the previous studies. Cholecystectomy clips remain. An IVC filter remains. Bilateral total hip arthroplasty persists. No pneumatosis. No free air. RAD/Abd Inc Decub and/or Erect IMPRESSION: New since November 30, 2020 are multiple air-fluid levels with mildly dilated loops of small bowel and some air-fluid levels within incompletely distended colon. Findings are suggestive of enteritis, ileus, or an early small bowel obstruction. Persistent pleural effusions and basilar atelectasis at 0554 Reported and signed by: Omar Mohan MD Electronically Signed: Omar Mohan MD at 5:53 EDT Tel , Service support ,
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
--- NOTE | 2020-12-02 05:36 | NURSING ---
pt off floor to xray
[2020-12-02] MEDS: Sucralfate 1 GM Tablet PO ×4 (05:53→22:00)
[2020-12-02] MEDS: Dicyclomine 10 MG Capsule 20 MG PO ×3 (05:53→16:55)
[2020-12-02] MEDS: hydrALAZINE 50 MG Tablet 100 MG PO ×3 (05:53→21:59)
[2020-12-02] MEDS: Morphine 2 MG/ML Syringe IV ×3 (08:09→18:07)
[2020-12-02] MEDS: 0.9% Saline Lock 10 ML Syringe IV ×4 (08:14→18:09)
[2020-12-02] MEDS: Calcium Acetate 667 MG Capsule PO ×3 (08:16→16:54)
[2020-12-02] MEDS: Gabapentin 300 MG Capsule PO ×3 (08:16→16:55)
[2020-12-02] MEDS: DULoxetine Hcl 30 MG Capsule PO (08:17)
[2020-12-02] MEDS: Isosorbide Mononitrate 30 MG Tablet PO (08:17)
[2020-12-02] MEDS: amLODIPine 10 MG Tablet PO (08:18)
[2020-12-02] MEDS: Furosemide 80 MG Tablet PO (08:18)
[2020-12-02] MEDS: Atenolol 25 MG Tablet PO (08:19)
--- NOTE | 2020-12-02 10:09 | PCM.PN.REN ---
Subjective Subjective still with lower abdominal pain. now has BM PD catheter was removed yesterday. I was called last night about GS showing G+ Cocci . vancomycin was given Objective Data Objective Data Vital Signs: Vital Signs Temp Pulse Resp BP Pulse Ox 96.6 F L 60 14 120/75 100 12/02/20 07:50 12/02/20 07:50 12/02/20 07:50 12/02/20 07:50 12/02/20 07:50 Oxygen Flow Rate (L/min) 3 Oxygen Delivery Method Room Air Weight: 72.62 kg Body Mass Index (BMI) 22.6 Intake & Output: Intake and Output for Last 24 Hours 11/30/20 12/01/20 12/02/20 23:59 23:59 23:59 Intake Total 3420 / 3420 200 / 200 Output Total 75 / 75 1999 Balance -75 / -75 1420 / 1420 200 / 200 Lab / Micro Data Result Diagrams: 12/02/20 04:10 12/02/20 04:10 Labs: Laboratory Results - last 24 hr 12/01/20 12/01/20 12/01/20 08:12 08:12 18:34 WBC RBC Hgb Hct MCV MCH MCHC RDW Std Deviation RDW Coeff of Destiny Plt Count MPV Immature Gran % (Auto) Neut % (Auto) Lymph % (Auto) [place] % (Auto) Eos % (Auto) Baso % (Auto) Absolute Neuts (auto) Absolute Lymphs (auto) Nucleated RBC % PT INR APTT Sodium Potassium Chloride Carbon Dioxide Anion Gap BUN Creatinine Estim Creat Clear Calc Est GFR (MDRD) Af Amer Est GFR (MDRD) Non-Af BUN/Creatinine Ratio Glucose Calcium POC Glucose 96 Blood Type A POSITIVE Antibody Screen NEGATIVE Crossmatch See Detail See Detail 12/02/20 12/02/20 12/02/20 04:10 04:10 04:10 WBC 8.2 RBC 3.26 L Hgb 9.4 L Hct 30.0 L MCV 92.0 MCH 28.8 MCHC 31.3 L RDW Std Deviation 49.2 H RDW Coeff of Destiny 14.7 H Plt Count 159 MPV 9.3 Immature Gran % (Auto) 0.400 Neut % (Auto) 88.7 H Lymph % (Auto) 6.9 L [place] % (Auto) 3.9 Eos % (Auto) 0.0 Baso % (Auto) 0.1 Absolute Neuts (auto) 7.3 Absolute Lymphs (auto) 0.56 L Nucleated RBC % 0 PT 13.6 INR 1.1 APTT 32.8 Sodium 130 L Potassium 4.1 Chloride 94 L Carbon Dioxide 28.0 Anion Gap 8 BUN 18 Creatinine 3.94 H Estim Creat Clear Calc 13.79 Est GFR (MDRD) Af Amer 15 L Est GFR (MDRD) Non-Af 12 L BUN/Creatinine Ratio 4.6 L Glucose 138 H Calcium 8.3 L POC Glucose Blood Type Antibody Screen Crossmatch Micro: Microbiology 12/02/20 07:17 Stool Stool Occult Blood (JOHNSON) - Final Occult Blood Positive 12/01/20 Unknown Catheter - Other Wound Culture - Preliminary 12/01/20 15:05 Interface Orders SARS-CoV-2 Antigen (Rapid) - Final Radiography Diagnostic Testing: Radiology Impression Abdomen X-Ray 12/02/20 05:16 IMPRESSION: New since November 30, 2020 are multiple air-fluid levels with mildly dilated loops of small bowel and some air-fluid levels within incompletely distended colon. Findings are suggestive of enteritis, ileus, or an early small bowel obstruction. Persistent pleural effusions and basilar atelectasis at 0554 Reported and signed by: Omar Mohan MD Electronically Signed: Omar Mohan MD at 5:53 EDT Tel , Service support , Physical Exam Const alert and oriented x3 General Appearance: cooperative Eyes PERRL and EOMs intact bilaterally Neck full ROM Resp normal respiratory effort and clear to auscultation bilaterally Cardio regular rate, regular rhythm and no JVD GI Palpation: soft and tender suprapubic Extremity normal to inspection and full ROM General Extremity: vascular access Neuro oriented x3 and CN's II-XII intact bilaterally Psych mental status grossly normal Insight: insight good Judgement: judgement good Assessment & Plan Assessment/Plan (1) ESRD (end stage renal disease) on dialysis: (2) Anemia: (3) Intractable abdominal pain: (4) HTN (hypertension): QUALIFIERS: Hypertension type: essential hypertension Qualified Code(s): I10 - Essential (primary) hypertension PLAN: Patient is on MWF HD schedule last HD session was 12/01 . No need for HD session today Next HD session tomorrow PD catheter was removed 12/01 HD access is R IJ TC s/p 2 RBC Units transfusion. surgery is following for EGD/Colonoscopy tomorrow. BP is well controlled. continue same BP medications. UF to EDW lower abdominal pain. PD catheter was removed 12/01 GS is showing G+ cocci. received Vancomycin. ID to be consulted Renal team will continue to follow Call if any question d/w Dr. Sarah Daniel MD
--- NOTE | 2020-12-02 10:47 | PN.HOSP_ITS ---
Subjective Subjective Patient seen and examined. She says abdominal pain is still present, though it is much better. She complains of constipation. Plan was for her to have EGD and colonoscopy today on account of acute on chronic anemia lower GI bleed but due to severe constipation, she could not. She is currently taking the bowel prep. She started having bowel movements. Hemoglobin today is 9.4. Objective Data Objective Data Vital Signs: Vital Signs Temp Pulse Resp BP Pulse Ox 96.6 F L 60 14 120/75 100 12/02/20 07:50 12/02/20 07:50 12/02/20 07:50 12/02/20 07:50 12/02/20 07:50 Oxygen Flow Rate (L/min) 3 Oxygen Delivery Method Room Air Weight: 160 lb 1.595 oz Body Mass Index (BMI) 22.6 Intake & Output: Intake and Output for Last 24 Hours 11/30/20 12/01/20 12/02/20 23:59 23:59 23:59 Intake Total 3420 / 3420 200 / 200 Output Total 75 / 75 1999 / 1999 Balance -75 / -75 1420 / 1420 200 / 200 Lab / Micro Data Result Diagrams: 12/02/20 04:10 12/02/20 04:10 Labs: Laboratory Results - last 24 hr 12/01/20 12/01/20 12/01/20 08:12 08:12 18:34 WBC RBC Hgb Hct MCV MCH MCHC RDW Std Deviation RDW Coeff of Destiny Plt Count MPV Immature Gran % (Auto) Neut % (Auto) Lymph % (Auto) [place] % (Auto) Eos % (Auto) Baso % (Auto) Absolute Neuts (auto) Absolute Lymphs (auto) Nucleated RBC % PT INR APTT Sodium Potassium Chloride Carbon Dioxide Anion Gap BUN Creatinine Estim Creat Clear Calc Est GFR (MDRD) Af Amer Est GFR (MDRD) Non-Af BUN/Creatinine Ratio Glucose Calcium POC Glucose 96 Blood Type A POSITIVE Antibody Screen NEGATIVE Crossmatch See Detail See Detail 12/02/20 12/02/20 12/02/20 04:10 04:10 04:10 WBC 8.2 RBC 3.26 L Hgb 9.4 L Hct 30.0 L MCV 92.0 MCH 28.8 MCHC 31.3 L RDW Std Deviation 49.2 H RDW Coeff of Destiny 14.7 H Plt Count 159 MPV 9.3 Immature Gran % (Auto) 0.400 Neut % (Auto) 88.7 H Lymph % (Auto) 6.9 L [place] % (Auto) 3.9 Eos % (Auto) 0.0 Baso % (Auto) 0.1 Absolute Neuts (auto) 7.3 Absolute Lymphs (auto) 0.56 L Nucleated RBC % 0 PT 13.6 INR 1.1 APTT 32.8 Sodium 130 L Potassium 4.1 Chloride 94 L Carbon Dioxide 28.0 Anion Gap 8 BUN 18 Creatinine 3.94 H Estim Creat Clear Calc 13.79 Est GFR (MDRD) Af Amer 15 L Est GFR (MDRD) Non-Af 12 L BUN/Creatinine Ratio 4.6 L Glucose 138 H Calcium 8.3 L POC Glucose Blood Type Antibody Screen Crossmatch Micro: Microbiology 12/02/20 07:17 Stool Stool Occult Blood (JOHNSON) - Final Occult Blood Positive 12/01/20 Unknown Catheter - Other Wound Culture - Preliminary 12/01/20 15:05 Interface Orders SARS-CoV-2 Antigen (Rapid) - Final Radiography Diagnostic Testing: Radiology Impression Abdomen X-Ray 12/02/20 05:16 IMPRESSION: New since November 30, 2020 are multiple air-fluid levels with mildly dilated loops of small bowel and some air-fluid levels within incompletely distended colon. Findings are suggestive of enteritis, ileus, or an early small bowel obstruction. Persistent pleural effusions and basilar atelectasis at 0554 Reported and signed by: Omar Mohan MD Electronically Signed: Omar Mohan MD at 5:53 EDT Tel , Service support , Physical Exam Const alert and oriented x3 Constitutional Narrative: in moderate distress due to pain General Appearance: cooperative Exam Limitations: no limitations HEENT normocephalic, head/scalp atraumatic, hearing grossly normal bilaterally and moist oral mucous membranes Eyes PERRL, EOMs intact bilaterally and conjunctivae normal Neck no lymphadenopathy, supple, no JVD and no carotid bruits Resp normal respiratory effort, no retractions, no use of accessory muscles and clear to auscultation bilaterally Cardio regular rate, regular rhythm, S1 normal heart sound, S2 normal heart sound and no murmurs GI normal to inspection, nondistended, normoactive bowel sounds and soft to palpation GI Narrative: mild suprapubic tenderness, no guarding or rebound tenderness. dressing over site of peritoneal dialysis catheter, which has been removed. Extremity normal to inspection, full ROM and no clubbing, cyanosis or edema Skin no rashes or lesions noted Neuro oriented x3 Sensorium / Orientation: awake and alert Psych affect normal Assessment & Plan Assessment/Plan (1) Intractable abdominal pain: PLAN: #Intractable abdominal pain * pain has improved, thouogh it is still present. * peritoneal dialysis catheter has been removed; tip on gram statin showed rare gram positive cocci. Was given a dose of IV vancomycin yesterday * consult ID * on tylenol, oxycodone and IV morphine prn * #Acute on chronic anemia * Hb today is 9.4; she is s/p transfusion of 2 units of PRBCs * general surgery on board; plan was for her to have EGD and colonoscopy today, but couldn't have bowel movements due to severe constipation * on bowel prep. For colonoscopy and EGD tomorrow, per general surgery. * * #Hypertension: On amlodipine and furosemide as well as hydralazine and atenolol #ESRD: * On hemodialysis via dialysis catheter in the chest. * On PhosLo and lasix * nephrology on board. has dialysis MWF. * #Depression: On mirtazapine and duloxetine #DVT prophylaxis:SCDs. No anticoagulation o/a of acute on chronic ahemia Code status: full code Visit Charges Inpatient E&M: 11068 Subs Hosp L3
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
[2020-12-02] MEDS: Bisacodyl 5 MG Tablet 20 MG PO (15:03)
[2020-12-02] MEDS: Polyethylene Glycol 3350 BOWEL PREP PO (16:55)
[2020-12-02] MEDS: Mirtazapine 15 MG Tablet 45 MG PO (22:01)
[2020-12-03] VITALS (14 sets, daily range): BP systolic 108–175; BP diastolic 56–76; PULSE 53–68; RESP 16–18; TEMP 36.2–37.1; O2SAT 96–100; BMI 23.3
--- NOTE | 2020-12-03 | IMM_PTH ---
PATIENT: ALEC GUTIERREZ LOC: MS3 U#:[id number] AGE/SX: 70/F ROOM: [facility] [place] RE12/01/[address]: Dr. Malu Smith MD : 1950 BED: 1 DIS: 12/03/2020 SPEC #: [id number] RECD: 12/06/20 10:15 STATUS: OSIEL RERafa #: [id number] JABIER: 12/03/20 00:[address]: Malu Smith DEPT: IMMUNOHISTOCHEMISTRY RECD BY: Monica Doss ENTERED: 12/06/20 10:15 SP TYPE: IMMUNO OTHR DR: MD Dr. Shar Navarro MD Dr. Robert D Cebul, MD Dr. Robert Leininger, MD Tissues: A - Pyloric antrum Procedures: H Pylori (initial) PHYSICIAN & INSTITUTION [place] [id number] SPECIMEN INFORMATION: Tissue Source: A ? Prepyloric biopsy Clinical Info: Intractable abdominal pain, acute on chronic anemia Specimen Number: [id number] CPT code: 95542 METHODOLOGY: Deparaffinized sections of prefer/formalin-fixed tissue or PAP/DQ stained slides are incubated with monoclonal/polyclonal antibodies/oligonucleotide probes. Localization is made via biotin free immunoperoxidase method. Appropriate controls are performed and reacted as expected. Results on target cell population are indicated in the following table: RESULTS: ANTIBODY / CLONE RESULT Block A H Pylori (polyclonal) negative These tests were developed and their performance characteristics determined by [facility]. They may not have been cleared or approved by the U.S. Food and Drug Administration. The FDA has determined that such clearance or approval is not necessary. The above immunohistochemical/dualISH markers are ordered and reviewed by the Pathologist. INTERPRETATION: A. Prepyloric biopsy: Negative for Helicobacter pylori organisms. SJ:ronnie 12/07/2020
[2020-12-03] MEDS: amLODIPine 10 MG Tablet PO (03:23)
[2020-12-03] MEDS: 0.9% Saline Lock 10 ML Syringe IV ×5 (04:06→20:06)
[2020-12-03] MEDS: Morphine 2 MG/ML Syringe IV ×3 (04:07→11:50)
[2020-12-03 06:25] LABS: Absolute Lymphocyte Count 1.11 X10^3/uL (0.83-4.51); Absolute Neutrophil Count 3.9 X10^3/uL (2.0-7.7); Basophil# 0.01 X10^3/uL; Basophil% 0.2 % (0-1); Eosinophil# 0.23 X10^3/uL; Hematocrit 30.2 % (37-47); Hemoglobin 9.6 g/dL (12.0-15.0); Lymphocyte # 1.11 X10^3/ul (0.83-4.51); Lymphocyte % 19.4 % (19-41); Mean Corp Hgb Conc 31.8 g/dL (32-36); Mean Corpuscular Hgb 28.3 pg (27.0-32.0); Mean Corpuscular Volume 89.1 fL (81-99); Monocyte# 0.42 X10^3/uL; Monocyte% 7.3 % (0-10); NRBC Flagged by Analyzer 0 % (0-5); Neutrophil # 3.93 X10^3/uL (2.7-7.7); Neutrophil % 68.8 % (47-70); Platelet Count 170 K/mm3 (150-450); RBC Distribution Width CV 14.7 % (11.6-14.6); RBC Distribution Width SD 47.1 fl (35.1-43.9); Red Blood Count 3.39 M/mm3 (4.2-5.4); White Blood Count 5.7 K/mm3 (4.4-11.0)
[2020-12-03 06:39] LABS: Anion Gap 8 (5-15); BUN 20 mg/dL (7-18); BUN/Creat Ratio 3.9 RATIO (10-20); Calcium,Total 8.4 mg/dL (8.5-10.1); Chloride 95 mmol/L (98-107); Creatinine, Serum 5.09 mg/dL (0.55-1.02); EST Glomerular Filtration Rate 9 mL/min (>60); Est Glom Filt Rate - Afr Amer 11 mL/min (>60); Estimated Creatinine Clearance 10.67 ml/min; Glucose 79 mg/dL (74-106); Potassium 3.3 mmol/L (3.5-5.1); Sodium Level 129 mmol/L (136-145)
[2020-12-03 06:42] LABS: Vancomycin, Random Level 14.6 ug/mL (0.0-15.0)
--- NOTE | 2020-12-03 08:01 | PN.HOSP_ITS ---
Subjective Subjective Patient seen and examined. She has no complaitns today and is for EGD and colonoscopy. Abdominal pain has improved. REview of systems otherwise negative. She has remained hemodynamically stable. Hb is 9.6 today. She is on IV vancomycin for catheter tip culture growing some gram positive cocci. Objective Data Objective Data Vital Signs: Vital Signs Temp Pulse Resp BP Pulse Ox 97.5 F L 63 18 150/69 H 100 12/03/20 02:58 12/03/20 03:04 12/03/20 02:58 12/03/20 05:46 12/03/20 02:58 Oxygen Flow Rate (L/min) 3 Oxygen Delivery Method Room Air Weight: 157 lb 13.616 oz Body Mass Index (BMI) 22.6 Intake & Output: Intake and Output for Last 24 Hours 12/01/20 12/02/20 12/03/20 23:59 23:59 23:59 Intake Total 3420 / 3420 2790 / 2790 300 / 300 Output Total 1999 / 1999 Balance 1420 / 1420 2790 / 2790 300 / 300 Lab / Micro Data Result Diagrams: 12/03/20 05:42 12/03/20 05:42 Labs: Laboratory Results - last 24 hr 12/03/20 12/03/20 12/03/20 05:42 05:42 05:42 WBC 5.7 RBC 3.39 L Hgb 9.6 L Hct 30.2 L MCV 89.1 MCH 28.3 MCHC 31.8 L RDW Std Deviation 47.1 H RDW Coeff of Destiny 14.7 H Plt Count 170 MPV 9.0 Immature Gran % (Auto) 0.300 Neut % (Auto) 68.8 Lymph % (Auto) 19.4 [place] % (Auto) 7.3 Eos % (Auto) 4.0 Baso % (Auto) 0.2 Absolute Neuts (auto) 3.9 Absolute Lymphs (auto) 1.11 Nucleated RBC % 0 Sodium 129 L Potassium 3.3 L Chloride 95 L Carbon Dioxide 26.0 Anion Gap 8 BUN 20 H Creatinine 5.09 H Estim Creat Clear Calc 10.67 Est GFR (MDRD) Af Amer 11 L Est GFR (MDRD) Non-Af 9 L BUN/Creatinine Ratio 3.9 L Glucose 79 Calcium 8.4 L Random Vancomycin 14.6 Micro: Microbiology 12/01/20 Unknown Catheter - Other Gram Stain - Final 12/01/20 Unknown Catheter - Other Wound Culture - Preliminary Gram Positive Cocci 12/02/20 07:17 Stool Stool Occult Blood (JOHNSON) - Final Occult Blood Positive 12/01/20 15:05 Interface Orders SARS-CoV-2 Antigen (Rapid) - Final Physical Exam Const alert and oriented x3 General Appearance: cooperative Exam Limitations: no limitations HEENT normocephalic, head/scalp atraumatic, hearing grossly normal bilaterally and moist oral mucous membranes Eyes PERRL, EOMs intact bilaterally and conjunctivae normal Neck no lymphadenopathy, supple, no JVD and no carotid bruits Resp normal respiratory effort, no retractions, no use of accessory muscles and clear to auscultation bilaterally Cardio regular rate, regular rhythm, S1 normal heart sound, S2 normal heart sound and no murmurs GI normal to inspection, nondistended, normoactive bowel sounds and soft to palpation GI Narrative: mild suprapubic tenderness, no guarding or rebound tenderness. dressing over site of peritoneal dialysis catheter, which has been removed. Extremity normal to inspection, full ROM and no clubbing, cyanosis or edema Peripheral Pulses: Yes pulses 2+ throughout Skin no rashes or lesions noted Neuro oriented x3 Sensorium / Orientation: awake and alert Psych affect normal Assessment & Plan Assessment/Plan (1) Intractable abdominal pain: PLAN: #Intractable abdominal pain * pain has improved. * peritoneal dialysis catheter has been removed; tip on gram statin showed rare gram positive cocci.on IV vancomycin * consult ID * on tylenol, oxycodone and IV morphine prn * #Acute on chronic anemia * Hb today is 9.6; she is s/p transfusion of 2 units of PRBCs * general surgery on board; plan to have EGD and colonoscopy today. * * #Hypertension: On amlodipine and furosemide as well as hydralazine and atenolol #ESRD: * On hemodialysis via dialysis catheter in the chest. * On PhosLo and lasix * nephrology on board. has dialysis MWF. #Hypokalemia: K is 3.3. Will replace and trend. #Hyponatremia: Na is 129. Due for diuresis today, which will help with fluid removal. #Depression: On mirtazapine and duloxetine #DVT prophylaxis:SCDs. No anticoagulation o/a of acute on chronic anemia Code status: full code Charges/Coding Visit Charges Inpatient E&M: 04829 Subs Hosp L3
--- NOTE | 2020-12-03 09:45 | EGD_PTH ---
PATIENT: ALEC GUTIERREZ LOC: MS3 U#:[id number] AGE/SX: 70/F ROOM: [facility] [place] RE12/01/[address]: Dr. Malu Smith MD : 1950 BED: 1 DIS: 12/03/2020 SPEC #: [id number] RECD: 12/03/20 11:02 STATUS: OSIEL MAGANA #: [id number] JABIER: 12/03/20 09:[address]: Donte Trotter DEPT: SURGICAL PATHOLOGY RECD BY: Skyla Mclaughlin ENTERED: 12/03/20 12:04 SP TYPE: EGD BIOPSY OTHR DR: MD Dr. Shar Navarro MD Dr. Nana Yaa Koram, MD Dr. Robert Leininger, MD Tissues: A - Gastric mucous membrane B - Esophagus, NOS C - Sigmoid colon biopsy Procedures: Special Stain Group II Surgery Specimen Level IV Alcian Blue/PAS (control) HEADER OPERATION: Colonoscopy, EGD ([facility] [place]) PRE-OP DIAGNOSIS: Intractable abdominal pain, acute on chronic anemia TISSUE SUBMITTED: A ? Prepyloric biopsy, B ? Distal esophagus biopsy, C ? Distal sigmoid polyp MICROSCOPIC DIAGNOSIS A. Prepyloric biopsy: A fragment of gastric mucosa with mild to moderate chronic inflammation and focal intestinal metaplasia. See comment. B. Distal esophagus, biopsy: A fragment of gastroesophageal mucosa with moderate chronic inflammation. Intestinal metaplasia (goblet cell metaplasia) is not identified. See comment. C. Distal sigmoid polyp, biopsy: Tubular adenoma. SJ:rg 12/06/2020 COMMENT A. The results of immunohistochemistry for Helicobacter pylori will be reported separately ([id number]). Alcian blue/PAS stain with matched control is used in the evaluation of the specimen. B. Alcian blue/PAS stain with matched control is used in the evaluation of the specimen. MICROSCOPIC DESCRIPTION Slides are reviewed. GROSS DESCRIPTION A - Received in fixative is one container labeled with the patient's name and designated prepyloric biopsy. The specimen consists of one irregular fragment of light trejo soft tissue that measures 0.6 x 0.2 x 0.1 cm. The specimen is totally submitted in one cassette. B - Received in fixative is one container labeled with the patient's name and designated distal esophagus. The specimen consists of one irregular fragment of light trejo soft tissue that measures 0.5 x 0.3 x <0.1 cm. The specimen is totally submitted in one cassette. C - Received in fixative is one container labeled with the patient's name and designated distal sigmoid polyp. The specimen consists of one irregular fragment of light trejo soft tissue that measures 0.5 x 0.5 x 0.2 cm. The specimen is totally submitted in one cassette. / AM:ronnie 12/03/20 TC:3 CPT: 53322 x3, 63411 x2
--- NOTE | 2020-12-03 10:40 | PCM.PN.BLA ---
Progress Note Upper and lower endoscopy did not demonstrate any any active GI bleeding. She has some mild gastritis. Hypertrophic rugae. Biopsies for histology and H. pylori pending. Colonoscopy demonstrated sigmoid polyp which was resected and a hemostatic clip applied. There is no evidence of any active upper or lower GI bleeding Assessment & Plan Assessment/Plan (1) Anemia: (2) Intractable abdominal pain: PLAN: It is likely that the patient's intractable abdominal pain was secondary to peritonitis likely infected by the nonfunctional peritoneal dialysis catheter. The patient is markedly improved. No evidence of GI bleeding. I suspect the drop in hemoglobin was simply laboratory and drawing related. I doubt that there was any actual active GI bleeding. At this point I will reschedule her as an outpatient for her left upper arm AV fistula which had to be canceled because of her emergency hospitalization. Recommend ongoing medical care. I will sign off at this time. Donte Trotter M.D., F.A.C.S.
[2020-12-03] MEDS: Sucralfate 1 GM Tablet PO ×2 (11:50→18:04)
[2020-12-03] MEDS: Gabapentin 300 MG Capsule PO ×2 (11:50→18:04)
[2020-12-03] MEDS: Dicyclomine 10 MG Capsule 20 MG PO ×2 (11:50→18:04)
[2020-12-03] MEDS: Calcium Acetate 667 MG Capsule PO ×2 (11:50→18:04)
--- NOTE | 2020-12-03 12:49 | CASEMGMT ---
Addendum entered by Musa Dalal 12/03/20 13:47: Pt made aware therapy is recommending additional therapy. Pt declines wanting to go to a SNF. She states she wants to go home and she declines HHC or OP therapy. Pt states she would like to get a smaller W/C than the one she currently has. She states the current W/C she has is a big one that I got from a family member that passed. He was about 300#. Pt states she just recently got a WW she has through insurance about a month ago. Call placed to [facility] and spoke w/Lyndsay. She confirms that pt just recently got a WW billed through insurance and states her insurance will not cover for a W/C this soon. Pt made aware. Pt states she can get around her home in the W/C she currently has, it just scrapes against the refrig and other furniture and she was just hoping to get a smaller one. Pt states it would be too costly for her to purchase a W/C at this time. REGGIE FAN informed her other more affordable options may be @ [facility] or on-line. She voices understanding. She states she feels safe to return home and denies having other discharge needs at this time. Original Note: REGGIE FAN NOTE: Per Dr Baird, pt to recieve OP IV Vanco x 5 doses, [facility]. Pt to receive IV Vanc today while @ [facility] and next IV Vanc will be due @ [facility] on Sunday. Script for IV Vanco received from Dr Baird and faxed to [facility] at this time. Call placed to REGGIE Rodríguez Clinical Gaming Table Operator @ [facility], and he was made aware of OP IV Vanc needed w/dialysis on MWF x 5 doses w/1st OP dose due on Sunday. Tanmay GARCIA RN, CM
--- NOTE | 2020-12-03 13:06 | DS.PCM_ITS ---
Providers Date of Admission: 12/01/20 Primary Care Physician: Dr. Shar Greene MD Consultations 11/30/20 11:40 Consult: General Surgery Routine Consulting Provider: Donte Trotter Reason for Consult: intractable abdominal pain, peritoneal dialysis catheter in place EMERGENT Consult: No Notified: Yes Date Notified:: 11/30/20 Time Notified: 11:42 Method of Notification: Verbal 12/01/20 08:33 Consult: Nephrology Routine Consulting Provider: Soraida Sears Reason for Consult: dialysis pt EMERGENT Consult: No Notified: Yes Date Notified:: 12/01/20 Time Notified: 08:33 Method of Notification: spoke to office 12/01/20 22:18 Consult: Infectious Disease Routine Consulting Provider: Donte Baird Reason for Consult: Infected dialysis line EMERGENT Consult: No Notified: Yes Date Notified:: 12/02/20 Time Notified: 07:35 Method of Notification: spoke w/answering service Reason For Visit: INTRACTABLE ABDOMINAL PAIN Diagnosis Discharge Diagnosis (1) Anemia: Status: Acute Code(s): D64.9 - Anemia, unspecified (2) Intractable abdominal pain: Status: Acute Code(s): R10.9 - Unspecified abdominal pain Medications at Discharge Home Medications atenolol 25 mg PO DAILY 12/19/19 mirtazapine 45 mg PO QHS 12/19/19 duloxetine 30 mg PO DAILY 03/31/20 hydralazine 100 mg PO TID 03/31/20 furosemide 80 mg PO DAILY 08/28/20 pantoprazole 40 mg PO DAILY 09/14/20 gabapentin 300 mg PO TID 10/08/20 hydrocodone-acetaminophen 1 tablet PO Q6H PRN 10/08/20 isosorbide mononitrate 30 mg PO DAILY tablet 10/11/20 ondansetron 4 mg PO Q8H PRN #10 tab 11/25/20 RenaPlex-D 1 tab PO DAILY 11/30/20 amlodipine 10 mg PO DAILY 11/30/20 calcium acetate(phosphat bind) 667 mg PO TID 11/30/20 dicyclomine 20 mg PO TID 11/30/20 oxycodone 5 - 10 mg PO Q6H PRN 11/30/20 sucralfate 1 g PO ACHS 11/30/20 docusate sodium [Colace] 200 mg PO BID PRN 12/02/20 lactulose 30 ml PO DAILY PRN 12/02/20 sennosides [Senokot] 17.2 mg PO QHS PRN 12/02/20 vancomycin in 0.9 % sodium chl 500 mg IV .MWF 12 Days #5 dose 12/03/20 Hospital Course Operations None Procedures Colonoscopy, Dialysis and EGD Summary of Care Provided Minutes Spent on Discharge: 40 Hospital Course: ALEC GUTIERREZ, is a 70 F extensive medical history as outlined who presents with a complaint of severe lower abdominal pain that has been going on for about 2 weeks and is gradually worsened. Patient has ESRD and was previously on peritoneal dialysis and still has the peritoneal dialysis in place. She is abdominal pain is cramping and very severe with no aggravating or relieving factors. She denies any urinary symptoms and denies any burning with urination, frequency offensive smell to her urine. She does have a history of kidney stones but states that was a long time ago. She also has a history of cervical cancer. She denied any fever, chills, chest pain, nausea vomiting or diarrhea. Review of symptoms otherwise negative. Vitals in the ED with a blood pressure of 153/75, pulse rate of 70 respiratory rate 20 temperature of 97.8 Fahrenheit. She was saturating at 98% on room air. CBC showed hemoglobin of 8 with WBC of 7.4 and platelets of 220. Chemistry shows sodium of 135 with bicarb of 33, potassium of 3.8 and creatinine of 4.08. Patient did have dialysis yesterday. CT of the abdomen and pelvis showed moderate bilateral pleural effusions with bibasilar atelectasis and an IVC filter in place with normal urinary bladder and peritoneal dialysis catheter with the tip in the right side of the pelvis with minimal ascites and no pseudocyst. Urinalysis was also negative for any evidence of UTI. She was admitted to be managed for intractable abdominal pain which was thought to be due to the peritoneal dialysis catheter. General surgery was consulted and she had retroperitoneal dialysis catheter removed. Dialysis catheter tip cultured Staph epidermis. She was started on IV vancomycin. ID was consulted. Stay was complicated by acute on chronic anemia, with Hb dropping to 6.7. She also complained of blood in her stool. She was transfused with 2 units of PRBCs. Hb came up to 9.6 at time of discharge. [place] had EGD and colonoscopy which showed gastritis and hemorrhoids as well as a 9mm sessile polyp in the distal sigmoid colon which was removed. There were also scattered diverticulae in the sigmoid colon. SHe also had gastritis and diffuse mildly erythematous mucosa without bleeding in the gastric antrum; duodenum was normal. She was to continue her oral PPI and sucralfate. She is to follow up with her PCP and general surgery in 2-3 weeks. She is also to follow up with nephrology for dialysis as scheduled via the dialysis catheter. She is to have IV vancomycin with dialysis x 2 weeks, per ID recommendations. Patient was seen and examined prior to discharge. She had no complaints and wa nted to go home. REview of systems was otherwise negative. Labs and vitals reviewed. Home meds reviewed and reconciled. Physical Exam Const alert, oriented x3 and no apparent distress Constitutional Narrative: in moderate distress due to pain General Appearance: cooperative and comfortable Exam Limitations: no limitations HEENT normocephalic, head/scalp atraumatic, hearing grossly normal bilaterally and moist oral mucous membranes Eyes PERRL, EOMs intact bilaterally and conjunctivae normal Neck no lymphadenopathy, supple, no JVD and no carotid bruits Resp normal respiratory effort, no retractions, no use of accessory muscles and clear to auscultation bilaterally Cardio regular rate, regular rhythm, S1 normal heart sound, S2 normal heart sound and no murmurs GI normal to inspection, nondistended, normoactive bowel sounds and soft to palpation GI Narrative: No tenderness. Dressing over site of peritoneal dialysis catheter, which has been removed. Extremity normal to inspection, full ROM and no clubbing, cyanosis or edema Skin no rashes or lesions noted Neuro oriented x3 Sensorium / Orientation: awake and alert Psych affect normal ABG / Lab / Microbiology Data Result Diagrams: 12/03/20 05:42 12/03/20 05:42 Laboratory: Laboratory Results - last 24 hr 12/03/20 12/03/20 12/03/20 05:42 05:42 05:42 WBC 5.7 RBC 3.39 L Hgb 9.6 L Hct 30.2 L MCV 89.1 MCH 28.3 MCHC 31.8 L RDW Std Deviation 47.1 H RDW Coeff of Destiny 14.7 H Plt Count 170 MPV 9.0 Immature Gran % (Auto) 0.300 Neut % (Auto) 68.8 Lymph % (Auto) 19.4 [place] % (Auto) 7.3 Eos % (Auto) 4.0 Baso % (Auto) 0.2 Absolute Neuts (auto) 3.9 Absolute Lymphs (auto) 1.11 Nucleated RBC % 0 Sodium 129 L Potassium 3.3 L Chloride 95 L Carbon Dioxide 26.0 Anion Gap 8 BUN 20 H Creatinine 5.09 H Estim Creat Clear Calc 10.67 Est GFR (MDRD) Af Amer 11 L Est GFR (MDRD) Non-Af 9 L BUN/Creatinine Ratio 3.9 L Glucose 79 Calcium 8.4 L Random Vancomycin 14.6 Microbiology: Microbiology 12/01/20 Unknown Gram Stain - Final Catheter - Other Wound Culture - Final Staphylococcus epidermidis Microbiology 12/01/20 Unknown Catheter - Other Gram Stain - Final 12/01/20 Unknown Catheter - Other Wound Culture - Final Staphylococcus epidermidis 12/02/20 07:17 Stool Stool Occult Blood (JOHNSON) - Final Occult Blood Positive 12/01/20 15:05 Interface Orders SARS-CoV-2 Antigen (Rapid) - Final D/C Instructions Discharge Diet: 2000 mg Sodium Diet Discharge Activity: Return to Normal Activity Weight Bearing Status: Weight bearing as tolerated Call your doctor if you observe: Shortness of breath, Swelling in the ankles and Uncontrolled pain Meaningful Use Info Meaningful Use Diagnoses (Choose all that apply): None applicable Discharge Plan Admission Admit Date/Time: 12/01/20 11:56 Primary Reason for Your Visit: intractable abdominal pain, acute on chronic anemia Attending Provider: Malu Smith Primary Care Provider: Shar Greene Consulting Providers: Donte Trotter ; Soraida Sears ; Donte Baird Instructions Patient Instructions: Abdominal Pain, Anemia Discharge Orders/Prescriptions Prescriptions: New vancomycin in 0.9 % sodium chl 500 mg/100 mL piggyback 500 mg IV .MWF 12 Days Qty: 5 RF: 0 Continued mirtazapine 45 MG tablet,disintegrating 45 mg PO QHS RF: 0 atenolol 25 MG tablet 25 mg PO DAILY RF: 0 hydralazine 100 MG tablet 100 mg PO TID RF: 0 duloxetine 30 MG capsule 30 mg PO DAILY RF: 0 furosemide 80 MG tablet 80 mg PO DAILY RF: 0 pantoprazole 40 MG tablet 40 mg PO DAILY RF: 0 hydrocodone-acetaminophen 1 EACH tablet 1 tablet PO Q6H PRN (Reason: Pain 1-10 Or Fever) RF: 0 gabapentin 100 MG capsule 300 mg PO TID RF: 0 isosorbide mononitrate 30 MG tablet 30 mg PO DAILY RF: 0 ondansetron 4 mg tablet,disintegrating 4 mg PO Q8H PRN (Reason: nausea and vomiting) Qty: 10 RF: 0 sucralfate 1 gram Tablet 1 g PO ACHS RF: 0 dicyclomine 20 mg Tablet 20 mg PO TID RF: 0 amlodipine 10 mg Tablet 10 mg PO DAILY RF: 0 calcium acetate(phosphat bind) 667 mg Capsule 667 mg PO TID RF: 0 RenaPlex-D 800 mcg-12.5 mg -2,000 unit Tablet 1 tab PO DAILY RF: 0 oxycodone 5 mg Tablet, Oral Only 5 - 10 mg PO Q6H PRN (Reason: Pain) RF: 0 sennosides [Senokot] 8.6 mg tablet 17.2 mg PO QHS PRN (Reason: Constipation) RF: 0 docusate sodium [Colace] 100 mg capsule 200 mg PO BID PRN (Reason: Constipation) RF: 0 lactulose 20 gram/30 mL solution 30 ml PO DAILY PRN (Reason: Constipation) RF: 0 Discontinued aspirin 81 MG tablet 81 mg PO DAILY@0800 RF: 0 Referrals / Follow Up: Soraida Sears MD [STAFF PHYSICIAN] - Within 2 Weeks Shar Greene MD [Primary Care Provider] - In 1 Week Donte Trotter MD [STAFF PHYSICIAN] - Within 1 Month Disposition Disposition (needs filled in before D/C Order can be placed): Home, self care Charges/Coding Visit Charges Inpatient E&M: 56971 Disch Hosp
--- NOTE | 2020-12-03 13:36 | PCM.PN.ID ---
Physical Exam Narrative Feeling much better, much less abd pain, wants to go home. No fever. Const alert and no apparent distress General Appearance: cooperative Resp normal air movement and clear to auscultation bilaterally Cardio regular rate and regular rhythm GI normal to inspection, nondistended, normoactive bowel sounds Skin no rashes or lesions noted ID ID: Route of nutrition/ use of supplements: [] Nutritional Intake: [] IV Site: [] [place] Catheter: [] Assessment & Plan Assessment/Plan (1) Intractable abdominal pain: PLAN: MRSE PD-associated peritonitis. Now s/p PD cath removal on 12/01. On IV vanc. Much improved. Ok for home with IV vanc dosed with HD, stop date 12/16/20. Wrote rx. Will follow as needed, d/w primary team. Recommended outpt covid vaccine.
--- NOTE | 2020-12-03 15:09 | OP.EGD_ITS ---
Patient Name: Cori Ferrer Procedure Date: 12/03/2020 9:55 AM Date of : 1950 Age: 70 Procedure: Upper GI endoscopy Indications: Epigastric abdominal pain, Iron deficiency anemia Providers: Donte Trotter MD Medicines: See the Anesthesia note for documentation of the administered medications Complications: No immediate complications. Procedure: Pre-Anesthesia Assessment: - Prior to the procedure, a History and Physical was performed, and patient medications and allergies were reviewed. The patient's tolerance of previous anesthesia was also reviewed. The risks and benefits of the procedure and the sedation options and risks were discussed with the patient. All questions were answered, and informed consent was obtained. Prior Anticoagulants: The patient has taken no previous anticoagulant or antiplatelet agents. ASA Grade Assessment: III - A patient with severe systemic disease. After reviewing the risks and benefits, the patient was deemed in satisfactory condition to undergo the procedure. After obtaining informed consent, the endoscope was passed under direct vision. Throughout the procedure, the patient's blood pressure, pulse, and oxygen saturations were monitored continuously. The gastroscope was introduced through the mouth, and advanced to the second part of duodenum. The upper GI endoscopy was accomplished without difficulty. The patient tolerated the procedure well. Scope In: 10:06:22 AM Scope Out: 10:10:29 AM Total Procedure Duration Time 0 hours 4 minutes 7 seconds Findings: A small hiatal hernia was present. Esophagitis with no bleeding was found 40 cm from the incisors. Biopsies were taken with a cold forceps for histology. Diffuse mildly erythematous mucosa without bleeding was found in the gastric antrum. Biopsies were taken with a cold forceps for histology. The examined duodenum was normal. Impression: - Small hiatal hernia. - Reflux esophagitis. Biopsied. - Erythematous mucosa in the antrum. Biopsied. - Normal examined duodenum. Recommendation: - Discharge patient to home. - Resume previous diet. - Continue present medications. - Telephone my office for pathology results in 1 week. The patient will remain on her acid suppression medication as prescribed per medicine. I anticipate rescheduling her as an outpatient for her left upper extremity AV fistula creation Findings suggest mild esophagitis and mild gastritis without active bleeding. No source for upper GI blood loss at this time. Procedure Code(s): --- Professional --- 64642, Esophagogastroduodenoscopy, flexible, transoral; with biopsy, single or multiple Diagnosis Code(s): --- Professional --- K44.9, Diaphragmatic hernia without obstruction or gangrene K21.0, Gastro-esophageal reflux disease with esophagitis K31.89, Other diseases of stomach and duodenum R10.13, Epigastric pain D50.9, Iron deficiency anemia, unspecified CPT copyright 2017 [employer]. All rights reserved. The codes documented in this report are preliminary and upon commercial real estate associate review may be revised to meet current compliance requirements. Donte Trotter MD 12/03/2020 10:47:24 AM This report has been signed electronically. Number of Addenda: 0 Note Initiated On: 12/03/2020 9:55 AM
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
--- NOTE | 2020-12-03 15:09 | OP.CCLET_ITS ---
12/03/2020 Shar Greene [address] [place] [address] Re : Upper GI endoscopy procedure for Cori Ferrer Dear Dr. Greene This procedure was performed on Thursday, December 03, 2020. My impressions and recommendations are as follows: Impressions : - Small hiatal hernia. - Reflux esophagitis. Biopsied. - Erythematous mucosa in the antrum. Biopsied. - Normal examined duodenum. Recommendations : - Discharge patient to home. - Resume previous diet. - Continue present medications. - Telephone my office for pathology results in 1 week. The patient will remain on her acid suppression medication as prescribed per medicine. I anticipate rescheduling her as an outpatient for her left upper extremity AV fistula creation Findings suggest mild esophagitis and mild gastritis without active bleeding. No source for upper GI blood loss at this time. My findings are described in the full procedure note, which is enclosed. If I can be of further assistance, please feel free to contact me at Doctor phone number(s): Work: . Sincerely, Donte Trotter MD 12/03/2020 10:47:24 AM This report has been signed electronically.
[2020-12-03] MEDS: Vancomycin IV 500 MG/100 ML BAG 100 MG IV (17:57)
--- NOTE | 2020-12-03 18:00 | DIALYSIS ---
Hemodialysis tx completed x 3 hours without complications. Pt tolerated tx well. Fluid removed 2000ml using crit-line monitor to B-profile. Vitals stable post tx. Verbal report given to REGGIE Rfufin post tx. Next scheduled dialysis tx Sunday12/06/20
[2020-12-03] MEDS: DULoxetine Hcl 30 MG Capsule PO (18:04)
[2020-12-03] MEDS: Isosorbide Mononitrate 30 MG Tablet PO (18:05)
--- NOTE | 2020-12-06 14:52 | CASEMGMT ---
REGGEI CM Discharge Follow Up Phone Call: ALEJANDRA: Jessee Strata: 4 Call Date: 12.06.20 Discharge Date: 12.03.20 Time of Call:1452 Duration:<1min Admitting Dx:intractable abd pain RN MITA attempted to complete follow up phone call after recent hospitalization. No answer and voicemail was unidentified. No message left at this time.
== END 2020-12-03 20:21 | disposition home or self-care (01) | DRG 907 ==
LOC: ED 10:01 → MS3 11:10
PROVIDERS: Anesthesiology; Nurse Practitioner Family; Surgery; Admitting Provider Student in an Organized Health Care Education/Training Program; Emergency Provider Emergency Medicine; PCP Family Medicine; Visit Provider Student in an Organized Health Care Education/Training Program
PROC: 0WPG03Z Removal of Infusion Device from Peritoneal Cavity, Open Approach (ICD-10-PCS; CPT 49422; principal; 2020-12-01 15:20)
PROC: 0DJD8ZZ Inspection of Lower Intestinal Tract, Via Natural or Artificial Opening Endoscopic (ICD-10-PCS; CPT 45378; principal; 2020-12-03 09:40)
DX: T85.71XA Infection and inflammatory reaction due to peritoneal dialysis catheter, initial encounter (principal); N18.6 End stage renal disease; I12.0 Hypertensive chronic kidney disease with stage 5 chronic kidney disease or end stage renal disease; E87.1 Hypo-osmolality and hyponatremia; Y82.8 Other medical devices associated with adverse incidents; K57.30 Diverticulosis of large intestine without perforation or abscess without bleeding; T85.611A Breakdown (mechanical) of intraperitoneal dialysis catheter, initial encounter; D50.0 Iron deficiency anemia secondary to blood loss (chronic); E78.5 Hyperlipidemia, unspecified; E11.22 Type 2 diabetes mellitus with diabetic chronic kidney disease; Z99.2 Dependence on renal dialysis; F17.210 Nicotine dependence, cigarettes, uncomplicated; F41.9 Anxiety disorder, unspecified; F32.9 Major depressive disorder, single episode, unspecified; M06.9 Rheumatoid arthritis, unspecified; J44.9 Chronic obstructive pulmonary disease, unspecified; Y81.2 Prosthetic and other implants, materials and accessory general- and plastic-surgery devices associated with adverse incidents; K59.09 Other constipation; B95.7 Other staphylococcus as the cause of diseases classified elsewhere; E87.6 Hypokalemia; K44.9 Diaphragmatic hernia without obstruction or gangrene; K21.00 Gastro-esophageal reflux disease with esophagitis, without bleeding; K64.9 Unspecified hemorrhoids; D12.5 Benign neoplasm of sigmoid colon; K29.70 Gastritis, unspecified, without bleeding; Z85.41 Personal history of malignant neoplasm of cervix uteri; Z79.899 Other long term (current) drug therapy; Z79.82 Long term (current) use of aspirin; Z87.828 Personal history of other (healed) physical injury and trauma; Z86.718 Personal history of other venous thrombosis and embolism; I25.2 Old myocardial infarction
CPT/HCPCS: 36415; 74019; 74176; 80048; 80053; 80202; 81001; 82274; 82962; 83036; 83605; 85025; 85610; 85730; 86850; 86900; 86901; 86920; 86922; 87070; 87075; 87077; 87176; 87186; 87205; 87426; 88305; 88313; 88342; 90937; 93005; 94640; 97163; 97166; 97167; 97530; 97535; 99285; J7030; P9016; A4216; G0257; J2405

== ENCOUNTER 2020-12-22 08:00 | Day surgery (SDC) | payer MEDICARE, MEDICAID, SELFPAY ==
[2020-11-09 06:12] VITALS: BMI 24.8
[2020-12-03 08:10] VITALS: BMI 23.3
[2020-12-21 13:35] LABS: Hematocrit 40.3 % (37-47); Hemoglobin 12.2 g/dL (12.0-15.0); Mean Corp Hgb Conc 30.3 g/dL (32-36); Mean Corpuscular Hgb 27.6 pg (27.0-32.0); Mean Corpuscular Volume 91.2 fL (81-99); Mean Platelet Vol. 8.8 fl (6.2-12.0); Platelet Count 186 K/mm3 (150-450); RBC Distribution Width SD 49.8 fl (35.1-43.9); Red Blood Count 4.42 M/mm3 (4.2-5.4); White Blood Count 5.8 K/mm3 (4.4-11.0)
[2020-12-21 14:03] LABS: Anion Gap 8 (5-15); BUN 37 mg/dL (7-18); BUN/Creat Ratio 6.9 RATIO (10-20); Chloride 101 mmol/L (98-107); Creatinine, Serum 5.36 mg/dL (0.55-1.02); EST Glomerular Filtration Rate 8 mL/min (>60); Est Glom Filt Rate - Afr Amer 10 mL/min (>60); Glucose 117 mg/dL (74-106); Potassium 4.1 mmol/L (3.5-5.1); Sodium Level 139 mmol/L (136-145)
[2020-12-22 08:56] VITALS: BP 157/72; PULSE 65; RESP 18; TEMP 36.3; O2SAT 99; BMI 23.2
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
[2020-12-22 09:10] LABS: Bedside Glucose 119 mg/dL (70-110)
--- NOTE | 2020-12-22 09:34 | EX.PCM.DISCH ---
Discharge Instructions Procedure Fistula Diet Discharge Diet: Renal Diet Activity Discharge Activity: May Not Drive (for 2-3 days or while taking narcotic pain medications.), May Shower and May Take a Tub Bath (in 5 days.) Lifting Restrictions: 5 pounds Keep extremity elevated above heart level: - (Keep arm elevated above the heart level for 3 days.) Dressing / Incision Call your doctor if your incision/area has: Continuous Slow Oozing, Sudden Increased Bleeding (apply pressure and call your doctor.), Increased Pain/ Swelling, Increased Redness and Foul Smelling Discharge Call your doctor if you observe: Fever of 101 or Higher Suture Line Care: Avoid Pulling/Pushing and Avoid Pinching/Bending Cleanse incision/area with: Keep Dressing Clean & Dry Additional Dressing/Incision Instructions:: Change or remove dressing in one day. May protect with a gauze bandaid. Follow Up Care Please Follow Up With: Donte Trotter MD When: Call [phone] to make an appointment for suture removal and follow up in 1 week. Test Results: Test results from this visit will be discussed in further detail at your follow-up appointment, if applicable. Discharge Plan Admission Attending Provider: Donte Trotter Primary Care Provider: Shar Greene Discharge Orders/Prescriptions Prescriptions: No Action mirtazapine 45 MG tablet,disintegrating 45 mg PO QHS RF: 0 atenolol 25 MG tablet 25 mg PO DAILY RF: 0 hydralazine 100 MG tablet 100 mg PO TID RF: 0 duloxetine 30 MG capsule 30 mg PO DAILY RF: 0 furosemide 80 MG tablet 80 mg PO DAILY RF: 0 pantoprazole 40 MG tablet 40 mg PO DAILY RF: 0 gabapentin 100 MG capsule 300 mg PO TID RF: 0 isosorbide mononitrate 30 MG tablet 30 mg PO DAILY RF: 0 ondansetron 4 mg tablet,disintegrating 4 mg PO Q8H PRN (Reason: nausea and vomiting) Qty: 10 RF: 0 sucralfate 1 gram Tablet 1 g PO ACHS RF: 0 dicyclomine 20 mg Tablet 20 mg PO TID RF: 0 amlodipine 10 mg Tablet 10 mg PO DAILY RF: 0 calcium acetate(phosphat bind) 667 mg Capsule 667 mg PO TID RF: 0 RenaPlex-D 800 mcg-12.5 mg -2,000 unit Tablet 1 tab PO DAILY RF: 0 oxycodone 5 mg Tablet, Oral Only 5 - 10 mg PO Q6H PRN (Reason: Pain) RF: 0 sennosides [Senokot] 8.6 mg tablet 17.2 mg PO QHS PRN (Reason: Constipation) RF: 0 docusate sodium [Colace] 100 mg capsule 200 mg PO BID PRN (Reason: Constipation) RF: 0 lactulose 20 gram/30 mL solution 30 ml PO DAILY PRN (Reason: Constipation) RF: 0
[2020-12-22] MEDS: Heparin Injection (Vial) 5,000 UNIT/ML VIAL 5000 UNIT (10:36)
[2020-12-22] MEDS: Lidocaine 1% (30 ml sdv) 30 ML Vial (11:30)
[2020-12-22] MEDS: Bupivacaine Mpf 0.5% 30 ML VIAL (11:30)
--- NOTE | 2020-12-22 11:31 | PCM.OPRPT ---
Problems Associated Problem List Diagnoses (1) Problem with dialysis access: Report of Operation Date of Procedure: 12/22/20 Pre-Operative Diagnosis: In need of hemodialysis access for dialysis Post-Operative Diagnosis: Same Surgery/Procedure Performed:: Stage I left upper extremity basilic vein to brachial artery arteriovenous hemodialysis fistula creation Description of Surgical Findings:: Timeout and informed consent was obtained. 70-year-old female was taken to the operating room placed upon the table. She underwent monitored anesthesia care local anesthetic. Clean procedure. No antibiotics required. The left upper extremity was sterilely prepped and draped. 1% lidocaine mixed 50-50 with 0.5% Marcaine was used as local anesthetic. I previously map the course of the left upper arm basilic vein and brachial artery. Local was instilled. An oblique incision was created. Sharp and blunt dissection was used to dissect free the basilic vein. Then sharp blunt dissection was used to mobilize and identify the brachial artery. Vesseloops were placed. The patient received 7000 units of heparin. The basilic vein was ligated distally with a Hemoclip. It was then spatulated. 11 blade was used to make an arteriotomy which was extended with Crews scissors. A end-to-side venous to arterial anastomosis was created with running 7-0 Prolene. A single repair suture of 7-0 Prolene was required. Good hemostasis was achieved. There was immediately good flow in the fistula. There remained a 2+ left radial pulse. The wound was closed with a deep layer of interrupted 3-0 Vicryl. Skin edges proximal and running septic or 4-0 Monocryl. Steri-Strips Telfa OpSite dressings applied. Sponge and instrument and needle counts were reported to the surgeon to be correct. Specimens none. Drains none. Blood loss minimal. The patient was taken to the recovery room in satisfactory addition without apparent complication Donte Trotter M.D., F.A.C.S. Surgeon: Donte Trotter Type of Anesthesia: Local MAC
[2020-12-22 11:45] VITALS: BP 117/65; BP 157/72; PULSE 55; RESP 16; TEMP 36.7; O2SAT 100
[2020-12-22 11:50] VITALS: BP 128/63; BP 157/72; PULSE 62; RESP 16; O2SAT 100
[2020-12-22 11:55] VITALS: BP 128/64; BP 157/72; PULSE 61; RESP 16; O2SAT 100
[2020-12-22 12:00] VITALS: BP 130/67; BP 157/72; PULSE 61; RESP 16; TEMP 36.8; O2SAT 100
[2020-12-22 12:38] VITALS: BP 153/64; BP 157/72; PULSE 58; RESP 16; TEMP 36; O2SAT 99
--- NOTE | 2020-12-22 13:04 | SUR.PHASEII ---
Dr. Trotter paged and updated, this nurse spoke to 's PA with update of VS and assessment.
== END 2020-12-22 13:05 | disposition home or self-care (01) ==
LOC: SDC 08:01 → AC 08:02
PROVIDERS: PCP Family Medicine; Referring Provider Surgery; Visit Provider Surgery
PROC: (CPT 36821; principal; 2020-12-22 10:10)
DX: I12.0 Hypertensive chronic kidney disease with stage 5 chronic kidney disease or end stage renal disease (principal); E11.22 Type 2 diabetes mellitus with diabetic chronic kidney disease; N18.6 End stage renal disease; E78.5 Hyperlipidemia, unspecified; F17.200 Nicotine dependence, unspecified, uncomplicated; Z79.01 Long term (current) use of anticoagulants; Z79.82 Long term (current) use of aspirin; Z85.41 Personal history of malignant neoplasm of cervix uteri; Z86.718 Personal history of other venous thrombosis and embolism; Z99.2 Dependence on renal dialysis
CPT/HCPCS: 01844; 36821; 36415; 80048; 82962; 85027; 87426; C9803; J7040; J7120

== ENCOUNTER 2020-12-26 08:48 | Day surgery (SDC) | payer MEDICARE, MEDICAID, SELFPAY ==
[2020-12-26] VITALS (9 sets, daily range): BP systolic 145–163; BP diastolic 65–94; PULSE 65–94; RESP 14–18; TEMP 36.5–37.2; O2SAT 97–100; BMI 22.1
--- NOTE | 2020-12-26 09:37 | VDUE_ITS ---
Reason For Study: Pain, Recent AV fistula placement Left Proximal Left jugular vein is spontaneous, widely patent, phasic, with no intraluminal echogenicity noted. Left subclavian vein is spontaneous, widely patent, phasic, with no intraluminal echogenicity noted. Left Arm Left axillary vein is spontaneous, patent, phasic, competent, compressible and demonstrates augmentation. Left brachial vein is compressible. Left cephalic vein is compressible. Left Lower Arm Left radial vein is compressible. Left ulnar vein is compressible. Patient has recent AV Fistula placement (12/23/20) Fistula is in the distal, medial upper arm near elbow, Unable to interrogate AV fistula and surrounding veins (brachial and basilic) due to extreme pain with very light probe pressure and suboptimal patient positioning Very Limited study due to pain, unable to tolerate any probe pressure, and suboptimal positioning Spoke with Dr. Godfrey about the limited study Normal arterial flow at wrist and mid brachial A. VL/Venous Duplex US, Unilateral Interpretation Summary No evidence for acute deep venous thrombosis left upper extremity Recently created left upper arm brachial-basilic arteriovenous hemodialysis fis carmenza not interogated secondary to significant patient discomfort with light probe placement Limited examination as noted. Ordering Physician: Chapin Godfrey Referring Physician: Shar Greene Performed By: Pat Manuel, MELISSACS, RVT ?
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
[2020-12-26 10:12] LABS: Absolute Lymphocyte Count 0.92 X10^3/uL (0.83-4.51); Absolute Neutrophil Count 4.9 X10^3/uL (2.0-7.7); Basophil# 0.04 X10^3/uL; Basophil% 0.6 % (0-1); Eosinophil# 0.29 X10^3/uL; Eosinophils% 4.3 % (0-5); Hemoglobin 11.9 g/dL (12.0-15.0); Lymphocyte # 0.92 X10^3/ul (0.83-4.51); Lymphocyte % 13.7 % (19-41); Mean Corp Hgb Conc 30.5 g/dL (32-36); Mean Corpuscular Hgb 27.4 pg (27.0-32.0); Mean Corpuscular Volume 89.7 fL (81-99); Mean Platelet Vol. 9.6 fl (6.2-12.0); Monocyte# 0.49 X10^3/uL; Monocyte% 7.3 % (0-10); NRBC Flagged by Analyzer 0 % (0-5); Neutrophil # 4.94 X10^3/uL (2.7-7.7); Neutrophil % 73.8 % (47-70); Platelet Count 171 K/mm3 (150-450); RBC Distribution Width CV 14.6 % (11.6-14.6); Red Blood Count 4.35 M/mm3 (4.2-5.4); White Blood Count 6.7 K/mm3 (4.4-11.0)
[2020-12-26 10:19] LABS: Anion Gap 7 (5-15); BUN 43 mg/dL (7-18); BUN/Creat Ratio 7.2 RATIO (10-20); Calcium,Total 8.8 mg/dL (8.5-10.1); Chloride 103 mmol/L (98-107); Creatinine, Serum 5.94 mg/dL (0.55-1.02); EST Glomerular Filtration Rate 8 mL/min (>60); Est Glom Filt Rate - Afr Amer 9 mL/min (>60); Estimated Creatinine Clearance 9.47 ml/min; Glucose 145 mg/dL (74-106); Potassium 4.7 mmol/L (3.5-5.1); Sodium Level 138 mmol/L (136-145)
[2020-12-26] MEDS: Morphine 4 MG/ML Syringe IV (10:25)
[2020-12-26] MEDS: Ondansetron 4 MG/2 ML Vial IV (10:25)
[2020-12-26 10:31] LABS: Lactic Acid 1.6 mmol/L (0.4-1.9)
--- NOTE | 2020-12-26 11:46 | NURSING ---
DR KATZ IN ROOM
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
--- NOTE | 2020-12-26 12:46 | EX.PCM.DISCH ---
Discharge Instructions Procedure Fistula Diet Discharge Diet: Renal Diet Activity Discharge Activity: May Not Drive (for 2-3 days or while taking narcotic pain medications.), May Shower and May Take a Tub Bath (in 5 days.) Lifting Restrictions: 5 pounds Keep extremity elevated above heart level: - (Keep arm elevated above the heart level for 3 days.) Dressing / Incision Call your doctor if your incision/area has: Continuous Slow Oozing, Sudden Increased Bleeding (apply pressure and call your doctor.), Increased Pain/ Swelling, Increased Redness and Foul Smelling Discharge Call your doctor if you observe: Fever of 101 or Higher Suture Line Care: Avoid Pulling/Pushing and Avoid Pinching/Bending Cleanse incision/area with: Keep Dressing Clean & Dry Additional Dressing/Incision Instructions:: Elevate your left arm. You may apply ice to limit swelling. Leave the Alejandro wrap intact for 3 days. Keep the wound area clean and dry for 5 days. Follow Up Care Please Follow Up With: Donte Trotter MD When: Call [phone] to make an appointment for suture removal and follow up in 1 week. Test Results: Test results from this visit will be discussed in further detail at your follow-up appointment, if applicable. Discharge Plan Admission Primary Reason for Your Visit: Venous hypertension postoperatively Attending Provider: Donte Trotter Primary Care Provider: Shar Greene Discharge Orders/Prescriptions Prescriptions: Continued mirtazapine 45 MG tablet,disintegrating 45 mg PO QHS RF: 0 atenolol 25 MG tablet 25 mg PO DAILY RF: 0 hydralazine 100 MG tablet 100 mg PO TID RF: 0 duloxetine 30 MG capsule 30 mg PO DAILY RF: 0 furosemide 80 MG tablet 80 mg PO DAILY RF: 0 pantoprazole 40 MG tablet 40 mg PO DAILY RF: 0 gabapentin 100 MG capsule 300 mg PO TID RF: 0 isosorbide mononitrate 30 MG tablet 30 mg PO DAILY RF: 0 ondansetron 4 mg tablet,disintegrating 4 mg PO Q8H PRN (Reason: nausea and vomiting) Qty: 10 RF: 0 sucralfate 1 gram Tablet 1 g PO ACHS RF: 0 dicyclomine 20 mg Tablet 20 mg PO TID RF: 0 amlodipine 10 mg Tablet 10 mg PO DAILY RF: 0 calcium acetate(phosphat bind) 667 mg Capsule 667 mg PO TID RF: 0 RenaPlex-D 800 mcg-12.5 mg -2,000 unit Tablet 1 tab PO DAILY RF: 0 oxycodone 5 mg Tablet, Oral Only 5 - 10 mg PO Q6H PRN (Reason: Pain) RF: 0 sennosides [Senokot] 8.6 mg tablet 17.2 mg PO QHS PRN (Reason: Constipation) RF: 0 docusate sodium [Colace] 100 mg capsule 200 mg PO BID PRN (Reason: Constipation) RF: 0 lactulose 20 gram/30 mL solution 30 ml PO DAILY PRN (Reason: Constipation) RF: 0 Referrals / Follow Up: Shar Greene MD [Primary Care Provider] - Disposition Disposition (needs filled in before D/C Order can be placed): Home, Self Care
--- NOTE | 2020-12-26 13:04 | NURSING ---
OR DR Chen DICK RT ARM WOUND
[2020-12-26] MEDS: Cefazolin 2 GM in 0.9% Normal Saline 100 ML IV (13:50)
[2020-12-26] MEDS: Heparin Injection (Vial) 5,000 UNIT/ML VIAL 5000 UNIT (14:11)
[2020-12-26] MEDS: Lidocaine 1% (30 ml sdv) 30 ML Vial (14:25)
[2020-12-26] MEDS: Bupivacaine Mpf 0.5% 30 ML VIAL (14:25)
--- NOTE | 2020-12-26 14:29 | OP.PCM_ITS ---
Problems Associated Problem List Diagnoses (1) Complication of arteriovenous dialysis fistula: (2) Venous hypertension of upper extremity: Report of Operation Date of Procedure: 12/26/20 Pre-Operative Diagnosis: Post arteriovenous hemodialysis fistula creation with venous hypertension arm swelling and pain Post-Operative Diagnosis: Same Surgery/Procedure Performed:: Left upper extremity wound exploration with fistula ligation Description of Surgical Findings:: Timeout informed consent was obtained. 70-year-old female was taken to the operating placed upon the table underwent ge neral endotracheal intubation anesthesia. Ancef 2 g given intravenously. Clean procedure. 1% lidocaine mixed 50-50 with 0.5% Marcaine was used as local anesthetic. A total of 18 cc was used. Local was instilled the incision was reopened expiration revealed the basilic vein to brachial artery AV anastomosis absolutely intact. There was absolutely no evidence of any hematoma no evidence of any previous blood loss the wound was completely dry. There was diffuse swelling of the left upper arm. At this point I felt that the diagnosis was concerned as proximal venous hypertension related to the fistula. I elected to ligate the fascia with 0 Nurolon. That actually caused a slight disruption of the mccann on the brachial artery so I secured that with a [id number] suture of 6-0 Prolene. Hemostasis now completely intact. There is a intact radial pulse which actually was improved after ligation of the fistula. Hemostasis was intact. Deep wound was closed with a running 3-0 Vicryl in the subcutaneous tissue. The skin edges were approximated running septic or 4-0 Monocryl. Steri-Strips applied followed by Telfa and soft roll from the hand all the way up and Alejandro wrap from the hand all the way to the proximal upper arm. Sponge and instrument and needle counts were reported to the surgeon to be correct. Specimens none. Drains none. Blood loss very minimal. Donte Trotter M.D., F.A.C.S. Surgeon: Donte Trotter Type of Anesthesia: General and Local Anesthesiologist: Toyin Nolan
[2020-12-26 14:56] LABS: Bedside Glucose 71 mg/dL (70-110)
== END 2020-12-26 15:29 | disposition home or self-care (01) ==
LOC: ED 13:05 → SDC 13:34 → AC 13:36
PROVIDERS: Emergency Provider Emergency Medicine; PCP Family Medicine; Visit Provider Surgery
PROC: (CPT 37607; principal; 2020-12-26 14:00)
DX: T82.848A Pain due to vascular prosthetic devices, implants and grafts, initial encounter (principal); T82.898A Other specified complication of vascular prosthetic devices, implants and grafts, initial encounter; I12.0 Hypertensive chronic kidney disease with stage 5 chronic kidney disease or end stage renal disease; E11.22 Type 2 diabetes mellitus with diabetic chronic kidney disease; N18.6 End stage renal disease; D63.1 Anemia in chronic kidney disease; F41.9 Anxiety disorder, unspecified; F32.9 Major depressive disorder, single episode, unspecified; M19.90 Unspecified osteoarthritis, unspecified site; J44.9 Chronic obstructive pulmonary disease, unspecified; K21.9 Gastro-esophageal reflux disease without esophagitis; E78.5 Hyperlipidemia, unspecified; F17.210 Nicotine dependence, cigarettes, uncomplicated; Z99.2 Dependence on renal dialysis; Z79.899 Other long term (current) drug therapy
CPT/HCPCS: 01770; 37607; 36415; 80048; 82962; 83605; 85025; 87040; 87426; 93971; 99283; J7030; A4216; J2405

== ENCOUNTER 2020-12-28 11:23 | Emergency (ER) | payer MEDICARE, MEDICAID, SELFPAY ==
[2020-12-26 13:19] VITALS: BMI 22.1
[2020-12-28 11:24] VITALS: BP 157/83; PULSE 63; RESP 16; TEMP 37.2; O2SAT 100; BMI 22.1
--- NOTE | 2020-12-28 12:19 | EKG12_ITS ---
Test Reason : CP Blood Pressure : / mmHG Vent. Rate : 063 BPM Atrial Rate : 063 BPM P-R Int : 202 ms QRS Dur : 082 ms QT Int : 460 ms P-R-T Axes : 071 -03 072 degrees QTc Int : 470 ms Normal sinus rhythm Nonspecific T wave abnormality Prolonged QT Abnormal ECG Confirmed by TERE LEMON, JAN ([id number]), continuity editor BIRDIE TORRES ([id number]) on 12/29/2020 10:39:36 AM Referred By: MR Confirmed By:JAN CARRANZA MD
[2020-12-28] MEDS: Ondansetron ODT 4 MG Tablet PO (12:55)
[2020-12-28] MEDS: Morphine 4 MG/ML Syringe IM (12:55)
--- NOTE | 2020-12-28 12:55 | RAD_ITS ---
STUDY: X-RAY CHEST REASON FOR EXAM: Female, 70 years old. Chest pain TECHNIQUE: Single AP portable view of the chest. COMPARISON: Comparison is made with prior study dated 10/08/2020. FINDINGS: A right-sided double-lumen catheter seen with the tip at the junction of the superior vena cava and right atrium. EKG electrodes are seen. Residual pleural parenchymal changes at the left lung base although there has been improvement. Mild blunting of the right costophrenic angle. There is borderline cardiomegaly. Normal mediastinum and farhan. Normal visualized pulmonary arteries. Normal visualized aortic arch and descending thoracic aorta. Normal visualized thoracic spine. Normal visualized ribs, clavicles, and shoulders. There is no demonstrated abnormality of the visualized soft tissue structures of the upper abdomen. RAD/Chest 1 View (Portable) IMPRESSION: Residual pleural parenchymal changes at the left lung base although this is improved as compared to prior study. Mild blunting of the right costophrenic angle. Electronically Signed: Lopez Barraza MD at 13:29 EDT , Service support ,
[2020-12-28 12:56] LABS: Absolute Lymphocyte Count 1.23 X10^3/uL (0.83-4.51); Absolute Neutrophil Count 4.7 X10^3/uL (2.0-7.7); Basophil# 0.07 X10^3/uL; Eosinophil# 0.27 X10^3/uL; Eosinophils% 3.9 % (0-5); Hemoglobin 11.3 g/dL (12.0-15.0); Lymphocyte # 1.23 X10^3/ul (0.83-4.51); Lymphocyte % 17.8 % (19-41); Mean Corp Hgb Conc 30.5 g/dL (32-36); Mean Corpuscular Hgb 27.2 pg (27.0-32.0); Mean Corpuscular Volume 88.9 fL (81-99); Mean Platelet Vol. 10.8 fl (6.2-12.0); Monocyte% 8.7 % (0-10); NRBC Flagged by Analyzer 0 % (0-5); Neutrophil # 4.72 X10^3/uL (2.7-7.7); Neutrophil % 68.3 % (47-70); Platelet Count 168 K/mm3 (150-450); RBC Distribution Width CV 14.6 % (11.6-14.6); RBC Distribution Width SD 47.2 fl (35.1-43.9); Red Blood Count 4.16 M/mm3 (4.2-5.4); White Blood Count 6.9 K/mm3 (4.4-11.0)
[2020-12-28 13:14] LABS: Anion Gap 6 (5-15); BUN 39 mg/dL (7-18); BUN/Creat Ratio 6.3 RATIO (10-20); Calcium,Total 8.8 mg/dL (8.5-10.1); Chloride 102 mmol/L (98-107); Creatinine, Serum 6.22 mg/dL (0.55-1.02); EST Glomerular Filtration Rate 7 mL/min (>60); Est Glom Filt Rate - Afr Amer 9 mL/min (>60); Estimated Creatinine Clearance 9.05 ml/min; Glucose 76 mg/dL (74-106); Potassium 5.4 mmol/L (3.5-5.1); Sodium Level 135 mmol/L (136-145)
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
[2020-12-28 14:27] VITALS: BP 143/87; PULSE 87; RESP 16; O2SAT 98
== END 2020-12-28 14:29 | disposition home or self-care (01) ==
PROVIDERS: Emergency Provider Emergency Medicine; PCP Family Medicine
DX: R53.81 Other malaise (principal); R53.83 Other fatigue; F17.210 Nicotine dependence, cigarettes, uncomplicated; Z86.718 Personal history of other venous thrombosis and embolism
CPT/HCPCS: 71045; 80048; 85025; 93005; 96372; 99282; J2405

== ENCOUNTER 2021-01-08 11:20 | Emergency (ER) | payer MEDICARE, MEDICAID, SELFPAY ==
[2021-01-08 11:20] VITALS: BP 142/93; PULSE 72; RESP 24; TEMP 36.6; O2SAT 99; BMI 22.1; BMI 23.2
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
[2021-01-08] MEDS: Albuterol 2.5 MG/3 ML VIAL.NEB. INHALATION ×2 (11:42)
[2021-01-08] MEDS: Ipratropium/Albuterol Sulfate 3 ML AMPUL.NEB INHALATION (11:42)
[2021-01-08 11:43] VITALS: PULSE 62; RESP 15; O2SAT 100
--- NOTE | 2021-01-08 12:55 | RAD_ITS ---
EXAM: XR CHEST, 1 VIEW : 1950 CLINICAL INDICATION: COUGH TECHNIQUE: Frontal view of the chest. This report was created using [employer] report generation technology. COMPARISON: 12/28/2020 FINDINGS: LUNGS AND PLEURAL SPACES: There has been resolution of left-sided effusion and left lower lobe pneumonia. No pneumothorax. HEART: Unremarkable. Cardiac silhouette not enlarged. MEDIASTINUM: Central airways and mediastinal contour are unremarkable. BONES/JOINTS: Unremarkable. SOFT TISSUES: Unremarkable. TUBES, LINES AND DEVICES: Right jugular catheter in stable position. RAD/Chest 1 View (Portable) IMPRESSION: No acute pulmonary abnormality. Right jugular catheter in stable position. at 1336 Reported and signed by: Albin Card MD Electronically Signed: Albin Card MD at 13:35 EDT Tel , Service support ,
[2021-01-08 12:56] LABS: Absolute Lymphocyte Count 1.59 X10^3/uL (0.83-4.51); Absolute Neutrophil Count 3.3 X10^3/uL (2.0-7.7); Basophil# 0.03 X10^3/uL; Basophil% 0.5 % (0-1); Eosinophil# 0.26 X10^3/uL; Eosinophils% 4.5 % (0-5); Hematocrit 36.2 % (37-47); Lymphocyte # 1.59 X10^3/ul (0.83-4.51); Lymphocyte % 27.7 % (19-41); Mean Corp Hgb Conc 30.4 g/dL (32-36); Mean Corpuscular Hgb 26.8 pg (27.0-32.0); Mean Corpuscular Volume 88.1 fL (81-99); Mean Platelet Vol. 8.5 fl (6.2-12.0); Monocyte# 0.51 X10^3/uL; Monocyte% 8.9 % (0-10); NRBC Flagged by Analyzer 0 % (0-5); Neutrophil # 3.33 X10^3/uL (2.7-7.7); Neutrophil % 58.1 % (47-70); Platelet Count 149 K/mm3 (150-450); RBC Distribution Width CV 14.6 % (11.6-14.6); RBC Distribution Width SD 46.8 fl (35.1-43.9); Red Blood Count 4.11 M/mm3 (4.2-5.4); White Blood Count 5.7 K/mm3 (4.4-11.0)
[2021-01-08] MEDS: MethylPREDNISolone 125 MG/2 ML Vial IV (13:00)
[2021-01-08 13:02] VITALS: BP 157/86; PULSE 65; RESP 24; O2SAT 100
[2021-01-08 13:03] LABS: Anion Gap 6 (5-15); BUN 27 mg/dL (7-18); Chloride 99 mmol/L (98-107); Creatinine, Serum 4.48 mg/dL (0.55-1.02); EST Glomerular Filtration Rate 10 mL/min (>60); Est Glom Filt Rate - Afr Amer 13 mL/min (>60); Estimated Creatinine Clearance 12.56 ml/min; Glucose 95 mg/dL (74-106); Potassium 4.1 mmol/L (3.5-5.1); Sodium Level 138 mmol/L (136-145)
--- NOTE | 2021-01-08 14:16 | ED.RN ---
LEFT A MESSAGE ON DR JOSELO JOHNSTON AT 1338 AND 1416
== END 2021-01-08 14:45 | disposition home or self-care (01) ==
PROVIDERS: Emergency Provider Student in an Organized Health Care Education/Training Program; PCP Family Medicine
DX: J44.1 Chronic obstructive pulmonary disease with (acute) exacerbation (principal); I25.2 Old myocardial infarction; F17.210 Nicotine dependence, cigarettes, uncomplicated; F32.9 Major depressive disorder, single episode, unspecified; K21.9 Gastro-esophageal reflux disease without esophagitis; Z79.899 Other long term (current) drug therapy; Z79.01 Long term (current) use of anticoagulants
CPT/HCPCS: 71045; 80048; 85025; 94640; 96374; 99251; 99285; A4216; G0463

== ENCOUNTER 2021-01-25 13:15 | Emergency (ER) | payer MEDICARE, MEDICAID, SELFPAY ==
[2021-01-08 11:20] VITALS: BMI 22.1
[2021-01-25] VITALS (7 sets, daily range): BP systolic 102–175; BP diastolic 71–85; PULSE 65–82; RESP 18–25; TEMP 36.9–37.1; O2SAT 96–100; BMI 23.3
--- NOTE | 2021-01-25 13:38 | EKG12_ITS ---
Test Reason : SOB Blood Pressure : / mmHG Vent. Rate : 057 BPM Atrial Rate : 057 BPM P-R Int : 170 ms QRS Dur : 088 ms QT Int : 448 ms P-R-T Axes : 007 010 093 degrees QTc Int : 436 ms Sinus bradycardia Nonspecific T wave abnormality Abnormal ECG Confirmed by BRANDON LEMON, MACIE ([id number]), magazine editor BIRDIE TORRES ([id number]) on 01/27/2021 9:56:02 AM Referred By: SHANIQUA Confirmed By:MACIE TAYLOR MD
--- NOTE | 2021-01-25 13:50 | RAD_ITS ---
STUDY: X-RAY CHEST REASON FOR EXAM: Female, 70 years old. Chest pain. Chest tightness and shortness of breath. TECHNIQUE: Single AP portable view of the chest. COMPARISON: Comparison is made with prior study dated 01/08/2021. FINDINGS: A right-sided double-lumen catheter is seen with the tip at the junction of the superior vena cava and right atrium. There is blunting of the left costophrenic angle with mild increased markings at the left lung base suggestive of either atelectasis and/or early infiltrate. There is borderline cardiomegaly. Normal mediastinum and farhan. Normal visualized pulmonary arteries. There is atherosclerotic tortuosity of the aortic arch and descending thoracic aorta. There are degenerative changes of the visualized thoracic spine. Normal visualized ribs, clavicles, and shoulders. There is no demonstrated abnormality of the visualized soft tissue structures of the upper abdomen. RAD/Chest 1 View (Portable) IMPRESSION: Increased markings at the left lung base with blunting of the left costophrenic angle suggestive of left basilar atelectasis and/or early infiltrate. Electronically Signed: Lopez Barraza MD at 14:15 EDT , Service support ,
[2021-01-25 13:56] LABS: Absolute Lymphocyte Count 1.71 X10^3/uL (0.83-4.51); Absolute Neutrophil Count 8.3 X10^3/uL (2.0-7.7); Basophil# 0.05 X10^3/uL; Basophil% 0.5 % (0-1); Eosinophil# 0.11 X10^3/uL; Hematocrit 34.9 % (37-47); Hemoglobin 10.8 g/dL (12.0-15.0); Lymphocyte # 1.71 X10^3/ul (0.83-4.51); Lymphocyte % 15.8 % (19-41); Mean Corp Hgb Conc 30.9 g/dL (32-36); Mean Corpuscular Hgb 26.7 pg (27.0-32.0); Mean Corpuscular Volume 86.4 fL (81-99); Mean Platelet Vol. 9.2 fl (6.2-12.0); Monocyte# 0.64 X10^3/uL; Monocyte% 5.9 % (0-10); NRBC Flagged by Analyzer 0 % (0-5); Neutrophil # 8.28 X10^3/uL (2.7-7.7); Neutrophil % 76.3 % (47-70); Platelet Count 193 K/mm3 (150-450); RBC Distribution Width CV 16.8 % (11.6-14.6); RBC Distribution Width SD 50.6 fl (35.1-43.9); Red Blood Count 4.04 M/mm3 (4.2-5.4); White Blood Count 10.8 K/mm3 (4.4-11.0)
[2021-01-25 14:13] LABS: Anion Gap 9 (5-15); BNP,B-Type NATRIURETIC PEPTIDE 2808.5 pg/mL (0-100); BUN 28 mg/dL (7-18); BUN/Creat Ratio 5.4 RATIO (10-20); Calcium,Total 9.1 mg/dL (8.5-10.1); Chloride 100 mmol/L (98-107); Creatinine, Serum 5.22 mg/dL (0.55-1.02); EST Glomerular Filtration Rate 9 mL/min (>60); Est Glom Filt Rate - Afr Amer 11 mL/min (>60); Estimated Creatinine Clearance 10.78 ml/min; Glucose 98 mg/dL (74-106); Potassium 3.6 mmol/L (3.5-5.1); Sodium Level 137 mmol/L (136-145); Troponin-I HS 24.6 pg/mL (3.0-53.7)
[2021-01-25] MEDS: Ipratropium/Albuterol Sulfate 3 ML AMPUL.NEB INHALATION (15:22)
[2021-01-25] MEDS: Albuterol 2.5 MG/3 ML VIAL.NEB. INHALATION (15:22)
[2021-01-25] MEDS: MethylPREDNISolone 125 MG/2 ML Vial IV (15:22)
[2021-01-25] MEDS: Benzonatate 100 MG Capsule PO (16:40)
[2021-01-25] MEDS: Doxycycline 100 MG CAPSULE PO (16:40)
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
== END 2021-01-25 16:58 | disposition home or self-care (01) ==
PROVIDERS: Emergency Provider Student in an Organized Health Care Education/Training Program; PCP Family Medicine
DX: J20.9 Acute bronchitis, unspecified (principal); I12.0 Hypertensive chronic kidney disease with stage 5 chronic kidney disease or end stage renal disease; E11.22 Type 2 diabetes mellitus with diabetic chronic kidney disease; N18.6 End stage renal disease; D63.1 Anemia in chronic kidney disease; I25.2 Old myocardial infarction; E78.00 Pure hypercholesterolemia, unspecified; J44.0 Chronic obstructive pulmonary disease with (acute) lower respiratory infection; K21.9 Gastro-esophageal reflux disease without esophagitis; E66.9 Obesity, unspecified; F32.9 Major depressive disorder, single episode, unspecified; F41.9 Anxiety disorder, unspecified; F17.210 Nicotine dependence, cigarettes, uncomplicated; Z79.01 Long term (current) use of anticoagulants; Z99.2 Dependence on renal dialysis; Z79.899 Other long term (current) drug therapy; Z86.718 Personal history of other venous thrombosis and embolism; Z86.73 Personal history of transient ischemic attack (TIA), and cerebral infarction without residual deficits
CPT/HCPCS: 71045; 80048; 83880; 84484; 85025; 93005; 94640; 96374; 99285; A4216

== ENCOUNTER 2021-02-26 07:25 | Inpatient (IN) | payer MEDICARE, MEDICAID, SELFPAY ==
[2021-02-26] VITALS (17 sets, daily range): BP systolic 157–192; BP diastolic 79–96; PULSE 69–92; RESP 18–30; TEMP 36.4–37.1; O2SAT 96–100; BMI 25.6; BMI 21.8
--- NOTE | 2021-02-26 08:12 | EKG12_ITS ---
Test Reason : SOB Blood Pressure : / mmHG Vent. Rate : 079 BPM Atrial Rate : 079 BPM P-R Int : 180 ms QRS Dur : 082 ms QT Int : 396 ms P-R-T Axes : 085 010 187 degrees QTc Int : 454 ms Normal sinus rhythm T wave abnormality, consider anterolateral ischemia Abnormal ECG Confirmed by TERE LEMON, JAN ([id number]), editor farm journal BIRDIE TORRES ([id number]) on 02/28/2021 12:26:38 PM Referred By: CD Confirmed By:JAN CARRANZA MD
--- NOTE | 2021-02-26 08:12 | RAD_ITS ---
EXAM: XR CHEST, 1 VIEW : 1950 CLINICAL INDICATION: Shortness of Breath TECHNIQUE: Frontal view of the chest. This report was created using [employer] report generation technology. COMPARISON: 01/25/2021 FINDINGS: LUNGS AND PLEURAL SPACES: There is minimal blunting of the costophrenic angles. No pneumothorax. No effusion. HEART: Unremarkable. Cardiac silhouette not enlarged. MEDIASTINUM: Central airways and mediastinal contour are unremarkable. BONES/JOINTS: Unremarkable. SOFT TISSUES: Unremarkable. TUBES, LINES AND DEVICES: Right central venous catheter is in good position. RAD/Chest 1 View (Portable) IMPRESSION: Of blunting of the costophrenic angles which may represent trace effusions. There is no focal consolidation. Right central venous catheter is in stable position. at 1020 Reported and signed by: Albin Card MD Electronically Signed: Albin Card MD at 10:19 EDT Tel , Service support ,
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
[2021-02-26] MEDS: Ipratropium/Albuterol Sulfate 3 ML AMPUL.NEB INHALATION ×4 (08:46→23:32)
[2021-02-26] MEDS: MethylPREDNISolone 125 MG/2 ML Vial IV (09:05)
[2021-02-26 09:16] LABS: Absolute Lymphocyte Count 1.83 X10^3/uL (0.83-4.51); Absolute Neutrophil Count 2.6 X10^3/uL (2.0-7.7); Basophil# 0.03 X10^3/uL; Basophil% 0.6 % (0-1); Eosinophil# 0.27 X10^3/uL; Eosinophils% 5.2 % (0-5); Hematocrit 32.4 % (37-47); Hemoglobin 9.8 g/dL (12.0-15.0); Lymphocyte # 1.83 X10^3/ul (0.83-4.51); Lymphocyte % 35.4 % (19-41); Mean Corp Hgb Conc 30.2 g/dL (32-36); Mean Corpuscular Hgb 26.1 pg (27.0-32.0); Mean Corpuscular Volume 86.4 fL (81-99); Mean Platelet Vol. 9.8 fl (6.2-12.0); Monocyte# 0.38 X10^3/uL; Monocyte% 7.4 % (0-10); NRBC Flagged by Analyzer 0 % (0-5); Neutrophil # 2.64 X10^3/uL (2.7-7.7); Platelet Count 209 K/mm3 (150-450); RBC Distribution Width CV 16.8 % (11.6-14.6); RBC Distribution Width SD 53.3 fl (35.1-43.9); Red Blood Count 3.75 M/mm3 (4.2-5.4); White Blood Count 5.2 K/mm3 (4.4-11.0)
[2021-02-26 09:24] LABS: Anion Gap 8 (5-15); BUN 23 mg/dL (7-18); BUN/Creat Ratio 5.8 RATIO (10-20); Chloride 100 mmol/L (98-107); EST Glomerular Filtration Rate 12 mL/min (>60); Est Glom Filt Rate - Afr Amer 14 mL/min (>60); Estimated Creatinine Clearance 13.87 ml/min; Glucose 128 mg/dL (74-106); Potassium 4.2 mmol/L (3.5-5.1); Sodium Level 139 mmol/L (136-145); Troponin-I HS 27 pg/mL (3.0-54.0)
[2021-02-26 09:38] LABS: Lactic Acid 1.5 mmol/L (0.4-1.9)
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
--- NOTE | 2021-02-26 10:51 | NURSING ---
DR AMIN FOR ER DR
--- NOTE | 2021-02-26 11:35 | NURSING ---
NEW ROOM 119
--- NOTE | 2021-02-26 12:19 | PCS.PANDOC ---
PANDEMIC DOCUMENTATION INITIATED: Date: 02/14/2021 Time: 190
[2021-02-26 13:28] LABS: Troponin-I HS 72 pg/mL (3.0-54.0)
[2021-02-26] MEDS: 0.9% Saline Lock 10 ML Syringe IV (14:54)
[2021-02-26] MEDS: oxyCODONE 5 MG Tablet PO (16:25)
[2021-02-26] MEDS: Acetaminophen 325 MG Tablet 650 MG PO (16:25)
[2021-02-26 17:05] LABS: Bedside Glucose 204 mg/dL (70-110)
[2021-02-26 17:16] LABS: Troponin-I HS 70 pg/mL (3.0-54.0)
[2021-02-26] MEDS: Insulin Lispro 100 UNIT/ML INSULN.PEN SC ×2 (17:27→21:43)
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
[2021-02-26] MEDS: Sucralfate 1 GM Tablet PO (21:42)
[2021-02-26] MEDS: hydrALAZINE 50 MG Tablet 100 MG PO (21:42)
[2021-02-26] MEDS: Gabapentin 300 MG Capsule PO (21:43)
[2021-02-26] MEDS: APIXABAN 2.5 MG TABLET PO (21:43)
[2021-02-26] MEDS: Mirtazapine 15 MG Tablet 45 MG PO (21:43)
[2021-02-26 22:41] LABS: Bedside Glucose 171 mg/dL (70-110)
[2021-02-27] VITALS (17 sets, daily range): BP systolic 141–161; BP diastolic 67–76; PULSE 68–85; RESP 18–20; TEMP 36.2–36.7; O2SAT 97–100
[2021-02-27] MEDS: Ipratropium/Albuterol Sulfate 3 ML AMPUL.NEB INHALATION ×6 (03:11→23:24)
[2021-02-27] MEDS: hydrALAZINE 50 MG Tablet 100 MG PO ×3 (06:34→21:55)
[2021-02-27] MEDS: levoFLOXacin 750 MG Tablet PO (06:34)
[2021-02-27] MEDS: Insulin Lispro 100 UNIT/ML INSULN.PEN SC ×3 (06:35→21:55)
[2021-02-27] MEDS: Sucralfate 1 GM Tablet PO ×4 (06:35→21:55)
[2021-02-27] MEDS: 0.9% Saline Lock 10 ML Syringe IV ×3 (06:35→21:55)
[2021-02-27] MEDS: Gabapentin 300 MG Capsule PO ×3 (06:35→21:55)
[2021-02-27] MEDS: Dicyclomine 10 MG Capsule 20 MG PO ×3 (06:35→15:05)
[2021-02-27 06:50] LABS: Bedside Glucose 171 mg/dL (70-110)
[2021-02-27 07:04] LABS: Absolute Lymphocyte Count 0.68 X10^3/uL (0.83-4.51); Absolute Neutrophil Count 11.1 X10^3/uL (2.0-7.7); Basophil# 0.01 X10^3/uL; Basophil% 0.1 % (0-1); Hematocrit 30.4 % (37-47); Hemoglobin 9.3 g/dL (12.0-15.0); Lymphocyte # 0.68 X10^3/ul (0.83-4.51); Lymphocyte % 5.5 % (19-41); Mean Corp Hgb Conc 30.6 g/dL (32-36); Mean Corpuscular Hgb 26.3 pg (27.0-32.0); Mean Corpuscular Volume 86.1 fL (81-99); Mean Platelet Vol. 9.8 fl (6.2-12.0); Monocyte# 0.57 X10^3/uL; Monocyte% 4.6 % (0-10); NRBC Flagged by Analyzer 0 % (0-5); Neutrophil # 11.07 X10^3/uL (2.7-7.7); Neutrophil % 89.4 % (47-70); Platelet Count 197 K/mm3 (150-450); RBC Distribution Width CV 16.8 % (11.6-14.6); RBC Distribution Width SD 52.8 fl (35.1-43.9); Red Blood Count 3.53 M/mm3 (4.2-5.4); White Blood Count 12.4 K/mm3 (4.4-11.0)
[2021-02-27 07:44] LABS: Anion Gap 7 (5-15); BUN 44 mg/dL (7-18); BUN/Creat Ratio 7.5 RATIO (10-20); Calcium,Total 9.2 mg/dL (8.5-10.1); Chloride 97 mmol/L (98-107); Creatinine, Serum 5.84 mg/dL (0.55-1.02); EST Glomerular Filtration Rate 8 mL/min (>60); Est Glom Filt Rate - Afr Amer 9 mL/min (>60); Glucose 154 mg/dL (74-106); Potassium 4.8 mmol/L (3.5-5.1); Sodium Level 133 mmol/L (136-145)
[2021-02-27] MEDS: APIXABAN 2.5 MG TABLET PO ×2 (09:01→21:55)
[2021-02-27] MEDS: DULoxetine Hcl 30 MG Capsule PO (09:01)
[2021-02-27] MEDS: Calcium Acetate 667 MG Capsule PO ×3 (09:01→16:27)
[2021-02-27] MEDS: Atenolol 25 MG Tablet PO (09:02)
[2021-02-27] MEDS: amLODIPine 10 MG Tablet PO (09:02)
[2021-02-27] MEDS: Pantoprazole Sodium 40 MG Tablet PO (09:02)
[2021-02-27] MEDS: Folic Acid/Vitamin B Comp W-C 1 Capsule 1 CAP PO (09:03)
[2021-02-27 12:06] LABS: Bedside Glucose 144 mg/dL (70-110)
--- NOTE | 2021-02-27 14:32 | PN.HOSP_ITS ---
Subjective Subjective Patient seen and examined. She still complains of some shortness of breath. She denies any fever, chills, chest pain, palpitations, dizziness, nausea or vomiting. Review of systems otherwise negative. She has remained hemodynamically stable. Objective Data Objective Data Vital Signs: Vital Signs Temp Pulse Resp BP Pulse Ox 97.2 F L 79 20 H 161/75 H 100 02/27/21 09:40 02/27/21 11:01 02/27/21 11:01 02/27/21 09:40 02/27/21 09:40 Oxygen Flow Rate (L/min) 2 Oxygen Delivery Method Room Air Weight: 147 lb 14.883 oz Body Mass Index (BMI) 21.8 Intake & Output: Intake and Output for Last 24 Hours 02/25/21 02/26/21 02/27/21 23:59 23:59 23:59 Intake Total 360 / 360 360 / 360 Balance 360 / 360 360 / 360 Lab / Micro Data Result Diagrams: 02/27/21 06:50 02/27/21 06:50 Labs: Laboratory Results - last 24 hr 02/26/21 16:11: Troponin I High Sens 70 H* 02/26/21 16:29: POC Glucose 204 H 02/26/21 21:44: POC Glucose 171 H 02/27/21 06:37: POC Glucose 171 H 02/27/21 06:50: WBC 12.4 H, RBC 3.53 L, Hgb 9.3 L, Hct 30.4 L, MCV 86.1, MCH 26.3 L, MCHC 30.6 L, RDW Std Deviation 52.8 H, RDW Coeff of Destiny 16.8 H, Plt Count 197, MPV 9.8, Immature Gran % (Auto) 0.400, Neut % (Auto) 89.4 H, Lymph % (Auto) 5.5 L, [place] % (Auto) 4.6, Eos % (Auto) 0.0, Baso % (Auto) 0.1, Absolute Neuts (auto) 11.1 H, Absolute Lymphs (auto) 0.68 L, Nucleated RBC % 0 02/27/21 06:50: Sodium 133 L, Potassium 4.8, Chloride 97 L, Carbon Dioxide 29.0, Anion Gap 7, BUN 44 H, Creatinine 5.84 H, Estim Creat Clear Calc 9.50, Est GFR (MDRD) Af Amer 9 L, Est GFR (MDRD) Non-Af 8 L, BUN/Creatinine Ratio 7.5 L, Glucose 154 H, Calcium 9.2 02/27/21 11:32: POC Glucose 144 H Micro: Microbiology 02/26/21 09:53 Nasal Secretion SARS-CoV-2 Antigen (Rapid) - Final Physical Exam Const alert and oriented x3 General Appearance: cooperative Exam Limitations: no limitations HEENT normocephalic, head/scalp atraumatic, hearing grossly normal bilaterally and moist oral mucous membranes Head and Scalp: normocephalic Eyes PERRL, EOMs intact bilaterally and conjunctivae normal Neck no lymphadenopathy, supple, no JVD and no carotid bruits Resp Resp Narrative: mildly diminished breath sounds bibasally, no wheezes or crackles. on 2L of oxygen by nasal Cardio regular rate, regular rhythm, S1 normal heart sound, S2 normal heart sound and no murmurs GI normal to inspection, nondistended, normoactive bowel sounds, soft to palpation, non-tender and non-distended Extremity normal to inspection, full ROM and no clubbing, cyanosis or edema Peripheral Pulses: Yes pulses 2+ throughout Skin no rashes or lesions noted Neuro oriented x3, CN's II-XII intact bilaterally and moves all extremities Sensorium / Orientation: awake and alert Psych affect normal Assessment & Plan Assessment/Plan (1) COPD exacerbation: (2) Acute respiratory failure with hypoxia: PLAN: #Acute hypoxic respiratory failure due to COPD exacerbation * continue IV solumedrol * breathing treatment with bronchodilators * titrate oxygen to maintain sats .90% * counseled to quit smoking. * on IV levofloxacin * #Acute COPD exacerbation: as above #Elevated troponin * high sensitivity troponins trended up from 27 to 72, then 70. * she denies any chest pain . * this may be due to demand ischemia from hypoxia * will order 2D echo for tomorrow * #ESRD: on HD. Consult nephrology. on HD MWF #History of PE: on eliquis 2.5mg bid #Hypertension: on amlodipine and atenolol #GERD; on PPI DVT prophylaxis: on eliquis already Code status: full code Charges/Coding Visit Charges Inpatient E&M: 44862 Subs Hosp L2
--- NOTE | 2021-02-27 14:50 | PN.RENAL_ITS ---
Subjective Subjective Following for ESRD. The patient is less short of breath today. She denies chest pain, nausea, or increasing edema. Objective Data Objective Data Vital Signs: Vital Signs Temp Pulse Resp BP Pulse Ox 97.2 F L 79 20 H 161/75 H 100 02/27/21 09:40 02/27/21 11:01 02/27/21 11:01 02/27/21 09:40 02/27/21 09:40 Oxygen Flow Rate (L/min) 2 Oxygen Delivery Method Room Air Weight: 67.1 kg Body Mass Index (BMI) 21.8 Intake & Output: Intake and Output for Last 24 Hours 02/25/21 02/26/21 02/27/21 23:59 23:59 23:59 Intake Total 360 / 360 360 / 360 Balance 360 / 360 360 / 360 Lab / Micro Data Result Diagrams: 02/27/21 06:50 02/27/21 06:50 Labs: Laboratory Results - last 24 hr 02/26/21 16:11: Troponin I High Sens 70 H* 02/26/21 16:29: POC Glucose 204 H 02/26/21 21:44: POC Glucose 171 H 02/27/21 06:37: POC Glucose 171 H 02/27/21 06:50: WBC 12.4 H, RBC 3.53 L, Hgb 9.3 L, Hct 30.4 L, MCV 86.1, MCH 26.3 L, MCHC 30.6 L, RDW Std Deviation 52.8 H, RDW Coeff of Destiny 16.8 H, Plt Count 197, MPV 9.8, Immature Gran % (Auto) 0.400, Neut % (Auto) 89.4 H, Lymph % (Auto) 5.5 L, [place] % (Auto) 4.6, Eos % (Auto) 0.0, Baso % (Auto) 0.1, Absolute Neuts (auto) 11.1 H, Absolute Lymphs (auto) 0.68 L, Nucleated RBC % 0 02/27/21 06:50: Sodium 133 L, Potassium 4.8, Chloride 97 L, Carbon Dioxide 29.0, Anion Gap 7, BUN 44 H, Creatinine 5.84 H, Estim Creat Clear Calc 9.50, Est GFR (MDRD) Af Amer 9 L, Est GFR (MDRD) Non-Af 8 L, BUN/Creatinine Ratio 7.5 L, Glu cose 154 H, Calcium 9.2 02/27/21 11:32: POC Glucose 144 H Micro: Microbiology 02/26/21 09:53 Nasal Secretion SARS-CoV-2 Antigen (Rapid) - Final Physical Exam Narrative General appearance: Alert and oriented x3 in no apparent distress. Neck: Supple, no JVD. Heart: Normal S1, S2. No rubs, murmurs or gallops. Lungs: Expiratory wheeze. No crackles. Abdomen: Normal bowel sound, soft, nontender no guarding or rebound. Extremity: No clubbing or cyanosis. There is no lower extremity edema. Assessment & Plan Assessment/Plan (1) ESRD (end stage renal disease) on dialysis: PLAN: The patient dialyzes on MWF schedule. She was dialyzed for her full treatment on 02/25/2021 prior to admission. The patient is actually below her target weight. Respiratory status has also improved. There is no need for di alysis today. I will arrange for dialysis on her usual schedule tomorrow. (2) Anemia: QUALIFIERS: Anemia type: unspecified type Qualified Code(s): D64.9 - Anemia, unspecified PLAN: Hemoglobin is 9.3. I will check with her outpatient dialysis unit to see when the last dose of ANGELI was. (3) HTN (hypertension): QUALIFIERS: Hypertension type: essential hypertension Qualified Code(s): I10 - Essential (primary) hypertension PLAN: BP is high but stable. The patient has been started on her home antihypertensives. Dialysis with ultrafiltration tomorrow should also help with blood pressure control. (4) COPD exacerbation: PLAN: The patient is on corticosteroid and bronchodilators. Management as per hospital medicine service.
[2021-02-27 17:15] LABS: Bedside Glucose 169 mg/dL (70-110)
[2021-02-27] MEDS: Mirtazapine 15 MG Tablet 45 MG PO (21:55)
[2021-02-27 22:10] LABS: Bedside Glucose 272 mg/dL (70-110)
[2021-02-28] VITALS (19 sets, daily range): BP systolic 128–162; BP diastolic 64–85; PULSE 63–109; RESP 16–20; TEMP 36.3–36.9; O2SAT 98–100
[2021-02-28] MEDS: Ipratropium/Albuterol Sulfate 3 ML AMPUL.NEB INHALATION ×5 (02:59→23:22)
[2021-02-28 05:34] LABS: Absolute Lymphocyte Count 0.44 X10^3/uL (0.83-4.51); Absolute Neutrophil Count 10.6 X10^3/uL (2.0-7.7); Basophil# 0.01 X10^3/uL; Basophil% 0.1 % (0-1); Hematocrit 28.2 % (37-47); Hemoglobin 8.7 g/dL (12.0-15.0); Lymphocyte # 0.44 X10^3/ul (0.83-4.51); Lymphocyte % 3.8 % (19-41); Mean Corp Hgb Conc 30.9 g/dL (32-36); Mean Corpuscular Hgb 26.6 pg (27.0-32.0); Mean Corpuscular Volume 86.2 fL (81-99); Mean Platelet Vol. 9.6 fl (6.2-12.0); Monocyte# 0.32 X10^3/uL; Monocyte% 2.8 % (0-10); NRBC Flagged by Analyzer 0 % (0-5); Neutrophil # 10.62 X10^3/uL (2.7-7.7); Neutrophil % 92.4 % (47-70); POSITIVE DIFFERENTIAL YES; Platelet Count 211 K/mm3 (150-450); RBC Distribution Width CV 17.2 % (11.6-14.6); RBC Distribution Width SD 54.2 fl (35.1-43.9); Red Blood Count 3.27 M/mm3 (4.2-5.4); White Blood Count 11.5 K/mm3 (4.4-11.0)
[2021-02-28 05:40] LABS: Differential Indicated SCAN CRITERIA MET
[2021-02-28] MEDS: 0.9% Saline Lock 10 ML Syringe IV ×3 (06:21→23:09)
[2021-02-28] MEDS: Sucralfate 1 GM Tablet PO ×4 (06:21→23:10)
[2021-02-28] MEDS: Gabapentin 300 MG Capsule PO ×3 (06:21→23:09)
[2021-02-28] MEDS: Dicyclomine 10 MG Capsule 20 MG PO ×3 (06:21→16:03)
[2021-02-28] MEDS: hydrALAZINE 50 MG Tablet 100 MG PO ×3 (06:21→23:09)
[2021-02-28] MEDS: levoFLOXacin 750 MG Tablet PO (06:21)
[2021-02-28 06:31] LABS: Bedside Glucose 114 mg/dL (70-110)
[2021-02-28 07:08] LABS: Differential Comment SCANNED
[2021-02-28 07:21] LABS: Anion Gap 8 (5-15); BUN 65 mg/dL (7-18); Calcium,Total 9.1 mg/dL (8.5-10.1); Chloride 97 mmol/L (98-107); Creatinine, Serum 7.26 mg/dL (0.55-1.02); EST Glomerular Filtration Rate 6 mL/min (>60); Est Glom Filt Rate - Afr Amer 7 mL/min (>60); Estimated Creatinine Clearance 7.64 ml/min; Glucose 110 mg/dL (74-106); Sodium Level 130 mmol/L (136-145)
--- NOTE | 2021-02-28 11:13 | EKG12_ITS ---
Test Reason : Blood Pressure : / mmHG Vent. Rate : 075 BPM Atrial Rate : 075 BPM P-R Int : 156 ms QRS Dur : 106 ms QT Int : 462 ms P-R-T Axes : 065 012 089 degrees QTc Int : 515 ms Normal sinus rhythm Voltage criteria for left ventricular hypertrophy ST & T wave abnormality, consider anterolateral ischemia Prolonged QT Abnormal ECG When compared with ECG of 26-FEB-2021 07:59, MANUAL COMPARISON REQUIRED, DATA IS UNCONFIRMED Confirmed by TERE LEMON, JAN ([id number]), photography editor BIRDIE TORRES ([id number]) on 03/01/2021 9:38:16 AM Referred By: BRENNAN Confirmed By:JAN CARRANZA MD
--- NOTE | 2021-02-28 11:40 | CASEMGMT ---
REGGIE FAN assessment: Face to Face with patient for initial transition planning/care coordination assessment. REGGIE FAN introduced self and role at [facility], pt voices understanding and consents to assessment. Pt is lying in bed on 2L nc in no distress. Pt is A/Ox4 and answers all questions appropriately. Care providers, pharmacy, and demographics verified. Presentation: Pt c/o SOB, pt with pulse ox 87% on ra Admitting dx: COPD exac PCP: [facility] Specialists: jose l Sears Pharmacy: [facility] Insurance: [facility], [facility] Prescription Benefit: Yes Living Will/HPOA: Pt has HPOA on file at [facility] and her son, Jose Kaufman, is listed as HPOA. Pt states she would like to update this at this time. Ian espana, voices understanding. LNOK: Salima Springer, daughter Living Arrangements: Pt states lives with daughter, Salima, on main level of 2 story home and states no concerns at home. Pt states daughter helps with ADL's. Transportation: Pt states daughter drives or uses [employer] for transportation and states no transportation concerns. DME/HHC: Pt states has the following DME: cane and walker. Pt states no need for any further DME. Pt states has been to [facility] in the past. Pt has HD MWF at 1000 at [facility]. Pt states no concerns with going home at time of discharge. Pt is retired. Pt states no hx of smoking cigarettes or drinking ETOH. Pt states no further concerns/needs. CM to follow for PT/OT evals, home oxygen need, and any further discharge planning/needs. Advised pt to ask for CM if any further questions/concerns/needs arise, voices understanding. Pt Goal: Home Plan: Home, pending therapy evals, home oxygen testing. SStaten REGGIE FAN
[2021-02-28] MEDS: oxyCODONE 5 MG Tablet PO (11:45)
[2021-02-28] MEDS: Heparin 10,000 UNITS/10 ML Vial 3200 UNITS IV (11:46)
[2021-02-28] MEDS: Calcium Acetate 667 MG Capsule PO ×2 (11:46→16:03)
[2021-02-28] MEDS: amLODIPine 10 MG Tablet PO (11:48)
[2021-02-28] MEDS: DULoxetine Hcl 30 MG Capsule PO (11:48)
[2021-02-28] MEDS: Folic Acid/Vitamin B Comp W-C 1 Capsule 1 CAP PO (11:48)
[2021-02-28] MEDS: APIXABAN 2.5 MG TABLET PO ×2 (11:48→23:09)
[2021-02-28] MEDS: Atenolol 25 MG Tablet PO (11:49)
[2021-02-28] MEDS: Pantoprazole Sodium 40 MG Tablet PO (11:49)
--- NOTE | 2021-02-28 11:54 | DIALYSIS ---
HD discontinued 35 minutes early d/t pt c/o chest pain. Dr. Daniel was notified. UF of 2400ml. Used right chest wall dialysis catheter. Lumens closed with heparin per fill volume. Caps placed. Dressing is dry and intact. See dialysis tx sheet for more details. Report was given to REGGIE Rob.
[2021-02-28 12:36] LABS: Bedside Glucose 134 mg/dL (70-110)
--- NOTE | 2021-02-28 12:51 | PN.HOSP_ITS ---
Subjective Subjective Patient seen and examined. She still feels a bit short of breath. She ws having dialysis at time of review. She is still wheezing. Review of systems is otherwise negative. Objective Data Objective Data Vital Signs: Vital Signs Temp Pulse Resp BP Pulse Ox 97.3 F L 76 18 162/85 H 100 02/28/21 11:53 02/28/21 11:53 02/28/21 11:53 02/28/21 11:53 02/28/21 11:30 Oxygen Flow Rate (L/min) 2 Oxygen Delivery Method Nasal Cannula Weight: 147 lb 14.883 oz Body Mass Index (BMI) 21.8 Intake & Output: Intake and Output for Last 24 Hours 02/26/21 02/27/21 02/28/21 23:59 23:59 23:59 Intake Total 360 / 360 600 / 720 240 / 240 Output Total 0 / 0 Balance 360 / 360 600 / 720 240 / 240 Lab / Micro Data Result Diagrams: 02/28/21 05:10 02/28/21 06:30 Labs: Laboratory Results - last 24 hr 02/27/21 16:25: POC Glucose 169 H 02/27/21 21:54: POC Glucose 272 H 02/28/21 05:10: WBC 11.5 H, RBC 3.27 L, Hgb 8.7 L, Hct 28.2 L, MCV 86.2, MCH 26.6 L, MCHC 30.9 L, RDW Std Deviation 54.2 H, RDW Coeff of Destiny 17.2 H, Plt Count 211, MPV 9.6, Immature Gran % (Auto) 0.900, Neut % (Auto) 92.4 H, Lymph % (Auto) 3.8 L, [place] % (Auto) 2.8, Eos % (Auto) 0.0, Baso % (Auto) 0.1, Absolute Neuts (auto) 10.6 H, Absolute Lymphs (auto) 0.44 L, Nucleated RBC % 0, Diffe rential Comment SCANNED 02/28/21 05:10: Sodium Cancelled, Potassium Cancelled, Chloride Cancelled, Carbon Dioxide Cancelled, Anion Gap Cancelled, BUN Cancelled, Creatinine Cance lled, Estim Creat Clear Calc Cancelled, Est GFR (MDRD) Af Amer Cancelled, Est GFR (MDRD) Non-Af Cancelled, BUN/Creatinine Ratio Cancelled, Glucose Cancelled, Calcium Cancelled 02/28/21 06:19: POC Glucose 114 H 02/28/21 06:30: Sodium 130 L, Potassium 6.0 H*, Chloride 97 L, Carbon Dioxide 25.0, Anion Gap 8, BUN 65 H, Creatinine 7.26 H, Estim Creat Clear Calc 7.64, Est GFR (MDRD) Af Amer 7 L, Est GFR (MDRD) Non-Af 6 L, BUN/Creatinine Ratio 9.0 L, Glucose 110 H, Calcium 9.1 02/28/21 11:43: POC Glucose 134 H Micro: Microbiology 02/26/21 09:53 Nasal Secretion SARS-CoV-2 Antigen (Rapid) - Final Physical Exam Const alert and oriented x3 General Appearance: cooperative Exam Limitations: no limitations HEENT normocephalic, head/scalp atraumatic, hearing grossly normal bilaterally and moist oral mucous membranes Head and Scalp: normocephalic Eyes PERRL, EOMs intact bilaterally and conjunctivae normal Neck no lymphadenopathy, supple, no JVD and no carotid bruits Resp Resp Narrative: mildly diminished breath sounds bibasally, no wheezes or crackles. on 2L of oxygen by nasal canula Cardio regular rate, regular rhythm, S1 normal heart sound, S2 normal heart sound and no murmurs Cardio Narrative: tachypneic GI normal to inspection, nondistended, normoactive bowel sounds, soft to palpation, non-tender and non-distended Extremity normal to inspection, full ROM and no clubbing, cyanosis or edema Peripheral Pulses: Yes pulses 2+ throughout Skin no rashes or lesions noted Neuro oriented x3, CN's II-XII intact bilaterally and moves all extremities Sensorium / Orientation: awake and alert Psych affect normal Assessment & Plan Assessment/Plan (1) COPD exacerbation: (2) Acute respiratory failure with hypoxia: PLAN: #Acute hypoxic respiratory failure due to COPD exacerbation * remains on 2L of oxygen, and is still wheezing. * continue IV solumedrol 40mg 8q8 * breathing treatment with bronchodilators * titrate oxygen to maintain sats >90% * counseled to quit smoking * troponins x 3 were negative. * #Acute COPD exacerbation: as above #ESRD: on HD. Consult nephrology. 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 If it is positive, will dc eliquis * DVT prophylaxis: on eliquis already Code status: full code * Charges/Coding Visit Charges Inpatient E&M: 52907 Subs Hosp L3
[2021-02-28 13:39] LABS: Ferritin 806 ng/mL (8-252); Iron 86 ug/dL (50-170); Iron Binding Capacity,Total 291 ug/dL (250-450); PERCENT IRON SATURATION 29.6 % (15.0-55.0)
--- NOTE | 2021-02-28 14:10 | CHAPLAIN ---
Type of Pastoral Visit _x__ Initial Visit ___ Follow-up Visit ___ On-call Visit ___ General Patient Visit ___ Spiritual Assessment ___ Family Conference ___ Bereavement ___ Rapid Response ___ Code Blue ___ Other (describe below) Pastoral Care Referral From _x__ Patient ___ Family ___ Nurse ___ Physician ___ Transportation Inspector ___ Yeast Washer ___ Other (describe below) Sacrament/Intervention _x__ Active listening ___ Anointing ___ Congregational ___ Bereavement ___ Communion ___ Flaca exploration ___ _x__ Life review _x__ Prayer ___ Reconciliation ___ Sacrament of Sick _x__ Supportive presence ___ Wedding ___ Other (describe below) Pastoral Comments patient talks about changes in her living situation and famiy needs; pt requests prayer support
--- NOTE | 2021-02-28 15:46 | NURSING ---
This RN reviewed SN charting
[2021-02-28] MEDS: Insulin Lispro 100 UNIT/ML INSULN.PEN SC ×2 (16:05→23:08)
--- NOTE | 2021-02-28 16:12 | CASEMGMT ---
Addendum entered by Musa Dalal 02/28/21 16:18: Per Neha @ [facility], pt is already active w/them for Palliative Care. Original Note: REGGIE FAN NOTE: Pt qualifies for a Palliative referral per the [facility] palliative screening tool at this time. Dr Smith aware but is not agreeable to Palliative referral at this time. Tanmay GARCIA RN CM
[2021-02-28 17:16] LABS: Bedside Glucose 194 mg/dL (70-110)
[2021-02-28] MEDS: Mirtazapine 15 MG Tablet 45 MG PO (23:10)
--- NOTE | 2021-02-28 23:45 | NURSING ---
covid 19 emergency documentation in effect
[2021-02-28 23:46] LABS: Bedside Glucose 186 mg/dL (70-110)
[2021-03-01] VITALS (10 sets, daily range): BP systolic 141–167; BP diastolic 66–79; PULSE 60–74; RESP 16–18; TEMP 36.5–36.9; O2SAT 98–100
[2021-03-01] MEDS: oxyCODONE 5 MG Tablet PO (06:46)
[2021-03-01] MEDS: Acetaminophen 325 MG Tablet 650 MG PO (06:46)
[2021-03-01] MEDS: Gabapentin 300 MG Capsule PO (06:47)
[2021-03-01] MEDS: hydrALAZINE 50 MG Tablet 100 MG PO (06:47)
[2021-03-01] MEDS: Dicyclomine 10 MG Capsule 20 MG PO ×2 (06:47→11:26)
[2021-03-01] MEDS: 0.9% Saline Lock 10 ML Syringe IV (06:53)
[2021-03-01] MEDS: Sucralfate 1 GM Tablet PO ×2 (06:53→11:26)
[2021-03-01 07:01] LABS: Bedside Glucose 137 mg/dL (70-110)
[2021-03-01] MEDS: Ipratropium/Albuterol Sulfate 3 ML AMPUL.NEB INHALATION ×2 (07:19→11:32)
[2021-03-01 07:33] LABS: Absolute Lymphocyte Count 0.73 X10^3/uL (0.83-4.51); Absolute Neutrophil Count 10.2 X10^3/uL (2.0-7.7); Basophil# 0.02 X10^3/uL; Basophil% 0.2 % (0-1); Hemoglobin 9.2 g/dL (12.0-15.0); Lymphocyte # 0.73 X10^3/ul (0.83-4.51); Lymphocyte % 6.4 % (19-41); Mean Corp Hgb Conc 30.7 g/dL (32-36); Mean Corpuscular Hgb 26.4 pg (27.0-32.0); Mean Platelet Vol. 9.8 fl (6.2-12.0); Monocyte# 0.37 X10^3/uL; Monocyte% 3.2 % (0-10); NRBC Flagged by Analyzer 0.2 % (0-5); Neutrophil # 10.16 X10^3/uL (2.7-7.7); Neutrophil % 88.5 % (47-70); Platelet Count 247 K/mm3 (150-450); RBC Distribution Width CV 17.1 % (11.6-14.6); RBC Distribution Width SD 54.5 fl (35.1-43.9); Red Blood Count 3.49 M/mm3 (4.2-5.4); White Blood Count 11.5 K/mm3 (4.4-11.0)
[2021-03-01 07:57] LABS: Anion Gap 8 (5-15); BUN 50 mg/dL (7-18); BUN/Creat Ratio 9.4 RATIO (10-20); Calcium,Total 8.4 mg/dL (8.5-10.1); Chloride 99 mmol/L (98-107); Creatinine, Serum 5.33 mg/dL (0.55-1.02); EST Glomerular Filtration Rate 9 mL/min (>60); Est Glom Filt Rate - Afr Amer 10 mL/min (>60); Estimated Creatinine Clearance 10.41 ml/min; Glucose 128 mg/dL (74-106); Potassium 5.2 mmol/L (3.5-5.1); Sodium Level 131 mmol/L (136-145)
[2021-03-01] MEDS: DULoxetine Hcl 30 MG Capsule PO (08:38)
[2021-03-01] MEDS: Calcium Acetate 667 MG Capsule PO ×2 (08:38→11:27)
[2021-03-01] MEDS: Pantoprazole Sodium 40 MG Tablet PO (08:39)
[2021-03-01] MEDS: amLODIPine 10 MG Tablet PO (08:39)
[2021-03-01] MEDS: Atenolol 25 MG Tablet PO (08:39)
[2021-03-01] MEDS: APIXABAN 2.5 MG TABLET PO (08:39)
[2021-03-01] MEDS: Folic Acid/Vitamin B Comp W-C 1 Capsule 1 CAP PO (08:39)
[2021-03-01] MEDS: Insulin Lispro 100 UNIT/ML INSULN.PEN SC (11:26)
--- NOTE | 2021-03-01 12:08 | PCM.DC ---
Discharge Instructions Diet Discharge Diet: No restrictions Activity Discharge Activity: Return to Normal Activity Dressing / Incision Call your doctor if you observe: Fever of 101 or Higher and Shortness of breath Follow Up Care Test Results: Test results from this visit will be discussed in further detail at your follow-up appointment, if applicable. Discharge Plan Admission Admit Date/Time: 02/26/21 11:07 Primary Reason for Your Visit: COPD exacerbation Attending Provider: Stiven Mo Primary Care Provider: Shar Greene Consulting Providers: Brittani Byrne Instructions Patient Instructions: ED Chest Pain, Noncardiac Discharge Orders/Prescriptions Prescriptions: New prednisone 20 mg tablet 40 mg PO DAILY 5 Days Qty: 10 RF: 0 Continued atenolol 25 MG tablet 25 mg PO DAILY RF: 0 hydralazine 100 MG tablet 100 mg PO TID RF: 0 duloxetine 30 MG capsule 30 mg PO DAILY RF: 0 pantoprazole 40 MG tablet 40 mg PO DAILY RF: 0 gabapentin 100 MG capsule 300 mg PO TID RF: 0 sucralfate 1 gram Tablet 1 g PO ACHS RF: 0 amlodipine 10 mg Tablet 10 mg PO DAILY RF: 0 calcium acetate(phosphat bind) 667 mg Capsule 667 mg PO TID RF: 0 RenaPlex-D 800 mcg-12.5 mg -2,000 unit Tablet 1 tab PO DAILY RF: 0 oxycodone 5 mg Tablet, Oral Only 5 - 10 mg PO Q6H PRN (Reason: Pain) RF: 0 sennosides [Senokot] 8.6 mg tablet 17.2 mg PO QHS PRN (Reason: Constipation) RF: 0 docusate sodium [Colace] 100 mg capsule 200 mg PO BID PRN (Reason: Constipation) RF: 0 lactulose 20 gram/30 mL solution 30 ml PO DAILY PRN (Reason: Constipation) RF: 0 mirtazapine 45 mg Tablet 45 mg PO QHS RF: 0 Eliquis 2.5 mg Tablet 2.5 mg PO BID RF: 0 albuterol sulfate 2.5 mg /3 mL (0.083 %) solution for nebulization 2.5 mg inhalation Q6H PRN (Reason: shortness of breath or wheezing) Qty: 25 RF: 0 benzonatate [Tessalon Perles] 100 mg capsule 100 mg PO BID PRN (Reason: cough) Qty: 20 RF: 0 dicyclomine 20 mg tablet 20 mg PO TID RF: 0 Discontinued prednisone 50 mg tablet 20 mg PO DAILY RF: 0 Referrals / Follow Up: Shar Greene MD [Primary Care Provider] - Disposition Disposition (needs filled in before D/C Order can be placed): Home, Self Care
--- NOTE | 2021-03-01 12:14 | PCM.DC.SUM ---
Providers Date of Admission: 02/26/21 Primary Care Physician: Dr. Shar Greene MD Consultations 02/26/21 17:12 Consult: Nephrology Routine Consulting Provider: Brittani Byrne Reason for Consult: ESRD, for hemodialysis EMERGENT Consult: No MD Notified: Yes Date Notified: 02/26/21 Time Notified: 17:12 Method of Notification: Verbal Reason For Visit: ACUTE HYPOXIC RESPIRATORY FAILURE, COPD Diagnosis Discharge Diagnosis (1) COPD exacerbation: Status: Chronic Code(s): J44.1 - Chronic obstructive pulmonary disease with (acute) exacerbation (2) Acute respiratory failure with hypoxia: Status: Acute Code(s): J96.01 - Acute respiratory failure with hypoxia Medications at Discharge Home Medications atenolol 25 mg PO DAILY 12/19/19 duloxetine 30 mg PO DAILY 03/31/20 hydralazine 100 mg PO TID 03/31/20 pantoprazole 40 mg PO DAILY 09/14/20 gabapentin 300 mg PO TID 10/08/20 RenaPlex-D 1 tab PO DAILY 11/30/20 amlodipine 10 mg PO DAILY 11/30/20 calcium acetate(phosphat bind) 667 mg PO TID 11/30/20 oxycodone 5 - 10 mg PO Q6H PRN 11/30/20 sucralfate 1 g PO ACHS 11/30/20 docusate sodium [Colace] 200 mg PO BID PRN 12/02/20 lactulose 30 ml PO DAILY PRN 12/02/20 sennosides [Senokot] 17.2 mg PO QHS PRN 12/02/20 Eliquis 2.5 mg PO BID 01/08/21 albuterol sulfate 2.5 mg INHALATION Q6H PRN #25 vial 01/08/21 mirtazapine 45 mg PO QHS 01/08/21 benzonatate [Tessalon Perles] 100 mg PO BID PRN #20 cap 01/25/21 dicyclomine 20 mg PO TID 02/26/21 prednisone 40 mg PO DAILY 5 Days #10 tab 03/01/21 Hospital Course Operations None Procedures None Summary of Care Provided Minutes Spent on Discharge: 32 Hospital Course: Patient did require oxygen 97% on 4 L nasal cannula. Patient was satting 85% on room air when EMS arrived and patient was put on oxygen. Patient dropped down into the 60% range when she was taken off.. Patient had shortness of breath 3 days prior to admission.71-year-old female presents with shortness of breath Patient was started on bronchodilators as well as methylprednisolone and has steadily improved. Patient will have an ambulatory pulse ox to see if patient would benefit from oxygen at home. Patient will be discharged with a 5-day course of prednisone. Physical Exam Const alert Resp normal respiratory effort Resp Narrative: upper respiratory wheezes. Cardio regular rate, regular rhythm, S1 normal heart sound and S2 normal heart sound GI normal to inspection, nondistended, normoactive bowel sounds, soft to palpation, non-tender and non-distended Weight / BMI Weight Weight: 67.1 kg Body Mass Index (BMI) 21.8 ABG / Lab / Microbiology Data Result Diagrams: 03/01/21 07:04 03/01/21 07:04 Laboratory: Laboratory Results - last 24 hr 02/28/21 06:30: Iron 86, TIBC 291, Iron Saturation 29.6, Ferritin 806 H 02/28/21 11:43: POC Glucose 134 H 02/28/21 16:00: POC Glucose 194 H 02/28/21 23:07: POC Glucose 186 H 03/01/21 06:52: POC Glucose 137 H 03/01/21 07:04: WBC 11.5 H, RBC 3.49 L, Hgb 9.2 L, Hct 30.0 L, MCV 86.0, MCH 26.4 L, MCHC 30.7 L, RDW Std Deviation 54.5 H, RDW Coeff of Destiny 17.1 H, Plt Count 247, MPV 9.8, Immature Gran % (Auto) 1.700 H, Neut % (Auto) 88.5 H, Lymph % (Auto) 6.4 L, [place] % (Auto) 3.2, Eos % (Auto) 0.0, Baso % (Auto) 0.2, Absolute Neuts (auto) 10.2 H, Absolute Lymphs (auto) 0.73 L, Nucleated RBC % 0.2 03/01/21 07:04: Sodium 131 L, Potassium 5.2 H, Chloride 99, Carbon Dioxide 24.0, Anion Gap 8, BUN 50 H, Creatinine 5.33 H, Estim Creat Clear Calc 10.41, Est GFR (MDRD) Af Amer 10 L, Est GFR (MDRD) Non-Af 9 L, BUN/Creatinine Ratio 9.4 L, Glucose 128 H, Calcium 8.4 L Microbiology: Microbiology 02/26/21 09:53 Nasal Secretion SARS-CoV-2 Antigen (Rapid) - Final D/C Instructions Discharge Diet: No restrictions Call your doctor if you observe: Fever of 101 or Higher and Shortness of breath Meaningful Use Info Meaningful Use Diagnoses (Choose all that apply): None applicable Discharge Plan Admission Admit Date/Time: 02/26/21 11:07 Primary Reason for Your Visit: COPD exacerbation Attending Provider: Stiven Mo Primary Care Provider: Shar Greene Consulting Providers: Brittani Byrne Instructions Patient Instructions: ED Chest Pain, Noncardiac Discharge Orders/Prescriptions Prescriptions: New prednisone 20 mg tablet 40 mg PO DAILY 5 Days Qty: 10 RF: 0 Continued atenolol 25 MG tablet 25 mg PO DAILY RF: 0 hydralazine 100 MG tablet 100 mg PO TID RF: 0 duloxetine 30 MG capsule 30 mg PO DAILY RF: 0 pantoprazole 40 MG tablet 40 mg PO DAILY RF: 0 gabapentin 100 MG capsule 300 mg PO TID RF: 0 sucralfate 1 gram Tablet 1 g PO ACHS RF: 0 amlodipine 10 mg Tablet 10 mg PO DAILY RF: 0 calcium acetate(phosphat bind) 667 mg Capsule 667 mg PO TID RF: 0 RenaPlex-D 800 mcg-12.5 mg -2,000 unit Tablet 1 tab PO DAILY RF: 0 oxycodone 5 mg Tablet, Oral Only 5 - 10 mg PO Q6H PRN (Reason: Pain) RF: 0 sennosides [Senokot] 8.6 mg tablet 17.2 mg PO QHS PRN (Reason: Constipation) RF: 0 docusate sodium [Colace] 100 mg capsule 200 mg PO BID PRN (Reason: Constipation) RF: 0 lactulose 20 gram/30 mL solution 30 ml PO DAILY PRN (Reason: Constipation) RF: 0 mirtazapine 45 mg Tablet 45 mg PO QHS RF: 0 Eliquis 2.5 mg Tablet 2.5 mg PO BID RF: 0 albuterol sulfate 2.5 mg /3 mL (0.083 %) solution for nebulization 2.5 mg inhalation Q6H PRN (Reason: shortness of breath or wheezing) Qty: 25 RF: 0 benzonatate [Tessalon Perles] 100 mg capsule 100 mg PO BID PRN (Reason: cough) Qty: 20 RF: 0 dicyclomine 20 mg tablet 20 mg PO TID RF: 0 Discontinued prednisone 50 mg tablet 20 mg PO DAILY RF: 0 Referrals / Follow Up: Shar Greene MD [Primary Care Provider] - Disposition Disposition (needs filled in before D/C Order can be placed): Home, Self Care Charges/Coding Visit Charges Inpatient E&M: 31558 Disch Hosp
[2021-03-01 12:21] LABS: Bedside Glucose 193 mg/dL (70-110)
--- NOTE | 2021-03-01 12:31 | PHA.DC.MR ---
Pharmacy Service has performed discharge medication reconciliation for this patient. The patient's discharge medication list was reviewed for discrepancies and discrepancies were resolved. Home Medications atenolol 25 mg PO DAILY 12/19/19 duloxetine 30 mg PO DAILY 03/31/20 hydralazine 100 mg PO TID 03/31/20 pantoprazole 40 mg PO DAILY 09/14/20 gabapentin 300 mg PO TID 10/08/20 RenaPlex-D 1 tab PO DAILY 11/30/20 amlodipine 10 mg PO DAILY 11/30/20 calcium acetate(phosphat bind) 667 mg PO TID 11/30/20 oxycodone 5 - 10 mg PO Q6H PRN 11/30/20 sucralfate 1 g PO ACHS 11/30/20 docusate sodium [Colace] 200 mg PO BID PRN 12/02/20 lactulose 30 ml PO DAILY PRN 12/02/20 sennosides [Senokot] 17.2 mg PO QHS PRN 12/02/20 Eliquis 2.5 mg PO BID 01/08/21 albuterol sulfate 2.5 mg INHALATION Q6H PRN #25 vial 01/08/21 mirtazapine 45 mg PO QHS 01/08/21 benzonatate [Tessalon Perles] 100 mg PO BID PRN #20 cap 01/25/21 dicyclomine 20 mg PO TID 02/26/21 prednisone 40 mg PO DAILY 5 Days #10 tab 03/01/21
--- NOTE | 2021-03-01 13:19 | CASEMGMT ---
Patient was interested in changing her Healthcare Power of City Editor. SW completed documents with patient. Copies were made and given to patient along with original. A copy was also placed in patient's chart. SW also spoke with patient about a concern SW heard that someone is taking money from her. She said there are 2 people she knows that know her pin. She thinks it was one of them. She said when she moved out of her son's girlfriend's home she told patient to pay her $330 or she will return the wheelchair. Patient did not have that money so she lost the wheelchair she had. She said patient's girlfriend and her son had her pin number. 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 She said her daughter is aware and they are taking care of it. She is going to the bank today to order a new card and change her pin number. Evy Paredes FAMILY LIFE EDUCATOR CARLOS
--- NOTE | 2021-03-01 13:36 | CASEMGMT ---
Addendum entered by Rashmi Madsen 03/01/21 14:52: Call to [facility] and they state they are able to accept pt and will do start of care 9-1 or 9-2. Pt updated, voices understanding. Pt voices no further questions/concerns/needs. Leonides PAREDES CM Original Note: Per Darron RN, pt does not qualify for home oxygen. This RN CM to room to discuss discharge plan and pt is agreeable to [facility] for SN, PT/OT. Pt was provided a list of [facility] providers including quality and resource use data and consistent with the patient?s preferred geographic region, medical needs, and insurance network. Pt states [facility] as choice at this time. Referral faxed to [facility] and CM to f/u with them via phone once referral reviewed. CM to follow. Leonides PAREDES CM
--- NOTE | 2021-03-02 15:05 | CASEMGMT ---
REGGIE FAN Discharge Follow-Up Phone Call. Lace: 15 Strata: 4 Discharge Date: 03/01/21 Adm Dx: Acute Hypoxic Resp Failure, COPD Exac Attempted discharge f/u phone call. No answer. Non-identifying VM received. Non-descript VM left requesting return call if there are any questions or concerns. Phone number provided. Tanmay GARCIA RN CM
== END 2021-03-01 15:30 | disposition home or self-care (01) | DRG 190 ==
LOC: ED 09:30 → PCU 11:38
PROVIDERS: Admitting Provider Student in an Organized Health Care Education/Training Program; Emergency Provider Emergency Medicine; PCP Family Medicine
DX: J44.1 Chronic obstructive pulmonary disease with (acute) exacerbation (principal); J96.01 Acute respiratory failure with hypoxia; N18.6 End stage renal disease; I12.0 Hypertensive chronic kidney disease with stage 5 chronic kidney disease or end stage renal disease; I24.8 Other forms of acute ischemic heart disease; Z99.2 Dependence on renal dialysis; K21.9 Gastro-esophageal reflux disease without esophagitis; D64.9 Anemia, unspecified; E11.22 Type 2 diabetes mellitus with diabetic chronic kidney disease; E78.00 Pure hypercholesterolemia, unspecified; E78.5 Hyperlipidemia, unspecified; F32.9 Major depressive disorder, single episode, unspecified; F41.9 Anxiety disorder, unspecified; I25.2 Old myocardial infarction; M19.90 Unspecified osteoarthritis, unspecified site; Z86.73 Personal history of transient ischemic attack (TIA), and cerebral infarction without residual deficits; Z85.41 Personal history of malignant neoplasm of cervix uteri; Z86.718 Personal history of other venous thrombosis and embolism; Z86.711 Personal history of pulmonary embolism; Z79.01 Long term (current) use of anticoagulants; Z79.899 Other long term (current) drug therapy; F17.210 Nicotine dependence, cigarettes, uncomplicated
CPT/HCPCS: 36415; 71045; 80048; 82728; 82962; 83540; 83550; 83605; 83880; 84484; 85025; 87426; 90937; 93005; 94640; 97110; 97162; 97165; 97530; 99251; 99285; 99406; A4216; G0257; G0463

== ENCOUNTER 2021-03-08 09:18 | Emergency (ER) | payer MEDICARE, MEDICAID, SELFPAY ==
[2021-03-08 09:18] VITALS: BP 184/145; PULSE 88; RESP 27; TEMP 35.9; O2SAT 98; BMI 24.5
[2021-03-08 09:22] VITALS: BP 184/145; PULSE 80; RESP 22; TEMP 35.9; O2SAT 98
--- NOTE | 2021-03-08 09:49 | RAD_ITS ---
STUDY: X-RAY CHEST REASON FOR EXAM: Female, 71 years old. Chest pain. Decreased pulse oximetry. TECHNIQUE: Single AP portable view of the chest. COMPARISON: Comparison is made with prior examination dated 02/26/2021. FINDINGS: EKG electrodes are seen. A right-sided double-lumen catheter is present with the tip in the right atrium. This is unchanged. Stable blunting of both costophrenic angles. Mild increased markings at the lung bases more prominent on the left side. This may represent bibasilar atelectasis and/or early infiltrates. These are superimposed on a mild degree of vascular congestion. There is borderline cardiomegaly. Normal mediastinum and farhan. Normal visualized pulmonary arteries. There is atherosclerotic tortuosity of the aortic arch and descending thoracic aorta. There are diffuse degenerative changes of the visualized thoracic spine. Normal visualized ribs, clavicles, and shoulders. There is no demonstrated abnormality of the visualized soft tissue structures of the upper abdomen. RAD/Chest 1 View (Portable) IMPRESSION: Findings suggest mild degree of vascular congestion with bibasilar atelectasis and/or early infiltrates worse on the left lung base. Electronically Signed: Lopez Barraza MD at 10:55 EDT , Service support ,
--- NOTE | 2021-03-08 09:49 | EKG12_ITS ---
Test Reason : SOB Blood Pressure : / mmHG Vent. Rate : 074 BPM Atrial Rate : 074 BPM P-R Int : 156 ms QRS Dur : 080 ms QT Int : 394 ms P-R-T Axes : 072 005 058 degrees QTc Int : 437 ms Normal sinus rhythm Nonspecific T wave abnormality Abnormal ECG Confirmed by BRANDON LEMON, MACIE ([id number]), newspaper or periodical editor BIRDIE TORRES ([id number]) on 03/10/2021 9:09:52 AM Referred By: ISAAK Confirmed By:MACIE TAYLOR MD
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
[2021-03-08 10:11] VITALS: PULSE 80; RESP 22
[2021-03-08] MEDS: Ipratropium/Albuterol Sulfate 3 ML AMPUL.NEB INHALATION (10:11)
[2021-03-08] MEDS: Albuterol 2.5 MG/3 ML VIAL.NEB. INHALATION ×2 (10:11)
[2021-03-08 10:22] VITALS: BP 184/145; PULSE 80; RESP 22; TEMP 35.9; O2SAT 96; O2SAT 98
[2021-03-08 10:34] LABS: Absolute Lymphocyte Count 1.73 X10^3/uL (0.83-4.51); Absolute Neutrophil Count 14.2 X10^3/uL (2.0-7.7); Basophil# 0.03 X10^3/uL; Basophil% 0.2 % (0-1); Eosinophils% 1.1 % (0-5); Hematocrit 29.5 % (37-47); Hemoglobin 9.4 g/dL (12.0-15.0); Lymphocyte # 1.73 X10^3/ul (0.83-4.51); Lymphocyte % 9.8 % (19-41); Mean Corp Hgb Conc 31.9 g/dL (32-36); Mean Corpuscular Hgb 27.6 pg (27.0-32.0); Mean Corpuscular Volume 86.8 fL (81-99); Mean Platelet Vol. 9.1 fl (6.2-12.0); Monocyte# 1.37 X10^3/uL; Monocyte% 7.8 % (0-10); NRBC Flagged by Analyzer 0 % (0-5); Neutrophil # 14.23 X10^3/uL (2.7-7.7); Neutrophil % 80.5 % (47-70); Platelet Count 221 K/mm3 (150-450); RBC Distribution Width CV 18.4 % (11.6-14.6); RBC Distribution Width SD 57.8 fl (35.1-43.9); White Blood Count 17.7 K/mm3 (4.4-11.0)
[2021-03-08] MEDS: MethylPREDNISolone 125 MG/2 ML Vial IV (10:44)
[2021-03-08 10:56] LABS: Anion Gap 5 (5-15); BUN 37 mg/dL (7-18); BUN/Creat Ratio 8.5 RATIO (10-20); Calcium,Total 8.1 mg/dL (8.5-10.1); Chloride 99 mmol/L (98-107); Creatinine, Serum 4.35 mg/dL (0.55-1.02); EST Glomerular Filtration Rate 11 mL/min (>60); Est Glom Filt Rate - Afr Amer 13 mL/min (>60); Estimated Creatinine Clearance 12.76 ml/min; Glucose 83 mg/dL (74-106); Potassium 4.8 mmol/L (3.5-5.1); Sodium Level 131 mmol/L (136-145); Troponin-I HS 36 pg/mL (3.0-54.0)
[2021-03-08 12:19] VITALS: BP 162/78; PULSE 76; RESP 20; O2SAT 98
== END 2021-03-08 12:38 | disposition home or self-care (01) ==
PROVIDERS: Emergency Provider Emergency Medicine; PCP Family Medicine
DX: J44.1 Chronic obstructive pulmonary disease with (acute) exacerbation (principal); I12.0 Hypertensive chronic kidney disease with stage 5 chronic kidney disease or end stage renal disease; E11.22 Type 2 diabetes mellitus with diabetic chronic kidney disease; N18.6 End stage renal disease; D63.1 Anemia in chronic kidney disease; I25.2 Old myocardial infarction; E78.00 Pure hypercholesterolemia, unspecified; K21.9 Gastro-esophageal reflux disease without esophagitis; M19.90 Unspecified osteoarthritis, unspecified site; F32.9 Major depressive disorder, single episode, unspecified; F41.9 Anxiety disorder, unspecified; F17.210 Nicotine dependence, cigarettes, uncomplicated; Z99.2 Dependence on renal dialysis; Z79.01 Long term (current) use of anticoagulants; Z79.899 Other long term (current) drug therapy; Z86.718 Personal history of other venous thrombosis and embolism; Z86.73 Personal history of transient ischemic attack (TIA), and cerebral infarction without residual deficits
CPT/HCPCS: 71045; 80048; 84484; 85025; 87426; 93005; 94640; 96374; 99285; J7030; A4216

== ENCOUNTER 2021-03-10 10:43 | Inpatient (IN) | payer MEDICARE, MEDICAID, SELFPAY ==
[2021-03-10] VITALS (13 sets, daily range): BP systolic 156–198; BP diastolic 70–85; PULSE 67–88; RESP 18–30; TEMP 36.4–37.1; O2SAT 84–100; BMI 24.3; BMI 25.0
--- NOTE | 2021-03-10 10:49 | EKG12_ITS ---
Test Reason : Blood Pressure : / mmHG Vent. Rate : 080 BPM Atrial Rate : 080 BPM P-R Int : 154 ms QRS Dur : 082 ms QT Int : 386 ms P-R-T Axes : 065 010 070 degrees QTc Int : 445 ms Normal sinus rhythm Normal ECG Confirmed by BRANDON LEMON, MACIE ([id number]), department editor BIRDIE TORRES ([id number]) on 03/15/2021 7:37:20 AM Referred By: PETRONA Confirmed By:MACIE TAYLOR MD
--- NOTE | 2021-03-10 11:35 | RAD_ITS ---
STUDY: X-RAY CHEST REASON FOR EXAM: Female, 71 years old. Cough TECHNIQUE: Single AP portable view of the chest. COMPARISON: Comparison is made with prior study 03/08/2021. FINDINGS: A right sided temporary dialysis catheter is in situ with the tip in the right atrium. EKG electrodes are seen. There are small bilateral pleural effusions with bibasilar atelectasis and/or infiltrate slightly worse at the left lung base. This is superimposed on a mild degree of CHF. There is no demonstrated pleural abnormality. There is mild cardiac enlargement. Normal mediastinum and farhan. Normal visualized pulmonary arteries. Normal visualized aortic arch and descending thoracic aorta. Normal visualized thoracic spine. Normal visualized ribs, clavicles, and shoulders. There is no demonstrated abnormality of the visualized soft tissue structures of the upper abdomen. RAD/Chest 1 View (Portable) IMPRESSION: Findings suggestive of mild degree of CHF with superimposed bibasilar atelectasis and/or infiltrates at the lung bases worse on the left side. Electronically Signed: Lopez Barraza MD at 12:26 EDT , Service support ,
[2021-03-10 11:48] LABS: Absolute Neutrophil Count 9.5 X10^3/uL (2.0-7.7); Basophil# 0.02 X10^3/uL; Basophil% 0.2 % (0-1); Eosinophil# 0.21 X10^3/uL; Eosinophils% 1.7 % (0-5); Hematocrit 26.8 % (37-47); Hemoglobin 8.2 g/dL (12.0-15.0); Mean Corp Hgb Conc 30.6 g/dL (32-36); Mean Corpuscular Hgb 27.3 pg (27.0-32.0); Mean Corpuscular Volume 89.3 fL (81-99); Mean Platelet Vol. 9.5 fl (6.2-12.0); Monocyte# 0.91 X10^3/uL; Monocyte% 7.2 % (0-10); NRBC Flagged by Analyzer 0 % (0-5); Neutrophil # 9.54 X10^3/uL (2.7-7.7); Neutrophil % 75.3 % (47-70); Platelet Count 230 K/mm3 (150-450); RBC Distribution Width CV 19.3 % (11.6-14.6); White Blood Count 12.7 K/mm3 (4.4-11.0)
[2021-03-10] MEDS: Albuterol 2.5 MG/3 ML VIAL.NEB. INHALATION (11:53)
[2021-03-10] MEDS: Ipratropium/Albuterol Sulfate 3 ML AMPUL.NEB INHALATION ×2 (11:53→18:56)
[2021-03-10 13:31] LABS: Bedside Glucose 79 mg/dL (70-110)
[2021-03-10 13:48] LABS: Anion Gap 3 (5-15); BUN 30 mg/dL (7-18); BUN/Creat Ratio 7.2 RATIO (10-20); Calcium,Total 8.4 mg/dL (8.5-10.1); Chloride 100 mmol/L (98-107); Creatinine, Serum 4.15 mg/dL (0.55-1.02); EST Glomerular Filtration Rate 11 mL/min (>60); Est Glom Filt Rate - Afr Amer 14 mL/min (>60); Estimated Creatinine Clearance 13.37 ml/min; Glucose 85 mg/dL (74-106); Magnesium 2.1 mg/dL (1.6-2.6); Potassium 4.4 mmol/L (3.5-5.1); Sodium Level 138 mmol/L (136-145)
--- NOTE | 2021-03-10 14:49 | ED.RN ---
attempted to ambulate pt in room. Pt weak and unable to ambulate. pt states legs are very weak. pt audibly wheezy just getting up in room. Dr espana
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
--- NOTE | 2021-03-10 15:37 | NURSING ---
PCU WHITE COPD, CHF
[2021-03-10] MEDS: MethylPREDNISolone 125 MG/2 ML Vial IV (15:47)
[2021-03-10] MEDS: Furosemide 100 MG/10 ML Vial 80 MG IV (15:47)
[2021-03-10 17:13] LABS: BNP,B-Type NATRIURETIC PEPTIDE 2186.2 pg/mL (0-100)
[2021-03-10] MEDS: Furosemide 100 MG/10 ML Vial 60 MG IV (18:07)
[2021-03-10 18:31] LABS: Troponin-I HS 38 pg/mL (3.0-54.0)
--- NOTE | 2021-03-10 19:01 | PCS.PANDOC ---
PANDEMIC DOCUMENTATION INITIATED: Date: 03/10/2021 Time: 1630
[2021-03-10 19:42] LABS: Procalcitonin 0.18 ng/mL (0.00-0.09)
[2021-03-10] MEDS: Nitroglycerin (INPATIENT USE) 0.4 MG TAB.SUBL SL (20:14)
[2021-03-10] MEDS: APIXABAN 2.5 MG TABLET PO (20:22)
[2021-03-10] MEDS: Sucralfate 1 GM Tablet PO (20:22)
[2021-03-10] MEDS: Gabapentin 300 MG Capsule PO (20:22)
[2021-03-10 21:02] LABS: Troponin-I HS 35 pg/mL (3.0-54.0)
[2021-03-11] VITALS (11 sets, daily range): BP systolic 140–167; BP diastolic 64–79; PULSE 55–73; RESP 16–22; TEMP 36.4–37; O2SAT 98–100
[2021-03-11 00:19] LABS: Troponin-I HS 34 pg/mL (3.0-54.0)
[2021-03-11] MEDS: hydrALAZINE 20 MG/ML Vial 10 MG IV (06:08)
[2021-03-11] MEDS: Gabapentin 300 MG Capsule PO ×3 (06:08→21:45)
[2021-03-11] MEDS: Sucralfate 1 GM Tablet PO ×4 (06:08→21:45)
[2021-03-11] MEDS: Dicyclomine 10 MG Capsule 20 MG PO ×3 (06:08→17:19)
[2021-03-11 06:35] LABS: Absolute Neutrophil Count 11.9 X10^3/uL (2.0-7.7); Basophil# 0.01 X10^3/uL; Basophil% 0.1 % (0-1); Hematocrit 23.3 % (37-47); Hemoglobin 7.4 g/dL (12.0-15.0); Lymphocyte % 3.9 % (19-41); Mean Corp Hgb Conc 31.8 g/dL (32-36); Mean Corpuscular Hgb 27.2 pg (27.0-32.0); Mean Corpuscular Volume 85.7 fL (81-99); Mean Platelet Vol. 9.6 fl (6.2-12.0); Monocyte# 0.37 X10^3/uL; Monocyte% 2.9 % (0-10); NRBC Flagged by Analyzer 0 % (0-5); Neutrophil # 11.92 X10^3/uL (2.7-7.7); Neutrophil % 92.4 % (47-70); POSITIVE DIFFERENTIAL YES; Platelet Count 205 K/mm3 (150-450); RBC Distribution Width CV 18.6 % (11.6-14.6); RBC Distribution Width SD 57.6 fl (35.1-43.9); Red Blood Count 2.72 M/mm3 (4.2-5.4); White Blood Count 12.9 K/mm3 (4.4-11.0)
[2021-03-11 06:41] LABS: Differential Indicated SCAN CRITERIA MET
[2021-03-11] MEDS: Ipratropium/Albuterol Sulfate 3 ML AMPUL.NEB INHALATION ×2 (06:41→19:05)
[2021-03-11 06:58] LABS: Anisocytosis 1+
[2021-03-11 07:14] LABS: ALB/GLOB Ratio 0.6 RATIO (0.9-2.4); AST(SGOT) 40 U/L (15-37); Alanine Aminotransfer ALT/SGPT 139 U/L (13-56); Albumin, Serum 2.3 g/dL (3.2-5.0); Alkaline Phosphatase 134 U/L (45-117); Anion Gap 8 (5-15); BUN 41 mg/dL (7-18); BUN/Creat Ratio 7.7 RATIO (10-20); Chloride 98 mmol/L (98-107); Cholesterol 145 mg/dL (200); Creatinine, Serum 5.32 mg/dL (0.55-1.02); EST Glomerular Filtration Rate 9 mL/min (>60); Est Glom Filt Rate - Afr Amer 10 mL/min (>60); Estimated Creatinine Clearance 10.43 ml/min; Globulin 3.6 g/dL (2.2-4.2); Glucose 140 mg/dL (74-106); High Density Lipoprotein 81 mg/dL; Potassium 4.7 mmol/L (3.5-5.1); Protein, Total 5.9 g/dL (6.4-8.2); Sodium Level 136 mmol/L (136-145); Thyroid Stim Hormone (TSH) 1.11 uIU/mL (0.358-3.74); Triglycerides 37 mg/dL; Very Low Density Lipoprotein 7 mg/dL (5-40)
[2021-03-11] MEDS: amLODIPine 10 MG Tablet PO (07:51)
[2021-03-11] MEDS: Calcium Acetate 667 MG Capsule PO ×3 (07:51→17:19)
[2021-03-11] MEDS: APIXABAN 2.5 MG TABLET PO ×2 (07:51→21:45)
[2021-03-11] MEDS: DULoxetine Hcl 30 MG Capsule PO (07:51)
[2021-03-11] MEDS: Pantoprazole Sodium 40 MG Tablet PO (07:51)
[2021-03-11] MEDS: Atenolol 25 MG Tablet PO (07:51)
[2021-03-11] MEDS: Furosemide 100 MG/10 ML Vial 60 MG IV ×2 (07:51→17:20)
--- NOTE | 2021-03-11 14:29 | CASEMGMT ---
REGGIE FAN Readmission Review Note: This patient has had 11 ED visits, 2 observation visits and 3 inpatient visits in 2020 for issues including multiple areas of pain, anemia, CP, hypotension, respiratory failure, and wounds. Index admission: 02/26 - 03/01/21: Acute hypoxic respiratory failure, COPD exac Last ED Visit: 03/08/21: COPD exac. Current visit: Acute HRrEF and COPD exac, acute on chronic hypoxic resp failure, anemia Pt with hx of COPD, HFrEF, HTN, ESRD/ch HD, HLD, anxiety/depression, DM type II, GERD, and CVA presented with c/o increased SOB. Pt with recent visit for COPD exac as noted above. Pt was discharged at that time to her two story home where she lives with her daughter Salima who provides pt with assistance with ADLS and transportation. Pt was also set up with home health care from [facility] for SN, PT and OT. Per Eliza at [facility], pt was on hold as of 03/09 due to family members being ill with COVID. Pt was seen prior to this date by both SN and PT but pt was not evaluated by OT. They would be able to take pt back after family members are recovered from COVID. Noted pt tested negative for COVID on this admit. Pt also attends HD at [facility] on MWF at 1000. Pt uses [employer] for transportation and her daughter assists. Noted pt previously active with [facility]. This REGGIE FAN called [facility] to confirm pt's status, voicemail message left requesting a return call. Wiill continue to monitor and assist with care coordination and discharge needs as identified. Yovanny Shankar RN CM
--- NOTE | 2021-03-11 14:43 | PCM.PN.HOSP ---
Documented by User: Chantal Barrera NP, INSULATION ESTIMATOR-C 03/11/21 14:55 Subjective Subjective Patient seen and examined. Reports improvement in breathing. Denies cough, fever, chills. Denies other symptoms or complaints. Talking on the phone, does not appear to be in respiratory distress. Objective Data Objective Data Vital Signs: Vital Signs Temp Pulse Resp BP Pulse Ox 97.5 F L 73 22 H 157/79 H 100 03/11/21 14:00 03/11/21 14:00 03/11/21 14:00 03/11/21 14:00 03/11/21 14:00 Oxygen Flow Rate (L/min) 2 Oxygen Delivery Method Nasal Cannula Weight: 165 lb 5.547 oz Body Mass Index (BMI) 25.0 Intake & Output: Intake and Output for Last 24 Hours 03/09/21 03/10/21 03/11/21 23:59 23:59 23:59 Intake Total 360 / 360 Output Total 150 / 150 Balance 210 / 210 Lab / Micro Data Result Diagrams: 03/11/21 05:45 03/11/21 05:45 Labs: Laboratory Results - last 24 hr 03/10/21 10:58: B-Natriuretic Peptide 2186.2 H 03/10/21 17:40: Procalcitonin 0.18 H 03/10/21 17:40: Troponin I High Sens 38 03/10/21 20:00: Troponin I High Sens 35 03/10/21 23:45: Troponin I High Sens 34 03/11/21 05:45: WBC 12.9 H, RBC 2.72 L, Hgb 7.4 L, Hct 23.3 L, MCV 85.7, MCH 27.2, MCHC 31.8 L, RDW Std Deviation 57.6 H, RDW Coeff of Destiny 18.6 H, Plt Count 205, MPV 9.6, Immature Gran % (Auto) 0.700, Neut % (Auto) 92.4 H, Lymph % (Auto) 3.9 L, [place] % (Auto) 2.9, Eos % (Auto) 0.0, Baso % (Auto) 0.1, Absolute Neuts (auto) 11.9 H, Absolute Lymphs (auto) 0.50 L, Nucleated RBC % 0, Anisocytosis 1+ 03/11/21 05:45: Sodium 136, Potassium 4.7, Chloride 98, Carbon Dioxide 30.0, Anion Gap 8, BUN 41 H, Creatinine 5.32 H, Estim Creat Clear Calc 10.43, Est GFR (MDRD) Af Amer 10 L, Est GFR (MDRD) Non-Af 9 L, BUN/Creatinine Ratio 7.7 L, Glucose 140 H, Calcium 8.0 L, Total Bilirubin 0.40, AST 40 H, ALT 139 H, Alkaline Phosphatase 134 H, Total Protein 5.9 L, Albumin 2.3 L, Globulin 3.6, Albumin/Globulin Ratio 0.6 L, Triglycerides 37, Cholesterol 145, LDL Cholesterol 57, VLDL Cholesterol 7, HDL Cholesterol 81, TSH 1.11 Micro: Microbiology 03/10/21 16:30 Mucosa - Nose Respiratory Panel (PCR) - Final Physical Exam Const alert, oriented x3 and no apparent distress Orientation / Consciousness: awake, oriented to person, oriented to place and oriented to time HEENT normocephalic and moist oral mucous membranes Eyes PERRL, EOMs intact bilaterally and conjunctivae normal Neck no lymphadenopathy Resp Auscultation: wheezes and diminished lung sounds Cardio regular rate, regular rhythm and no murmurs Peripheral Pulses: pulses 2+ throughout GI normal to inspection, nondistended, normoactive bowel sounds, non-tender and non-distended Extremity normal to inspection General Extremity: edema bilateral lower extremity Details: mild Skin no rashes or lesions noted Lesions: no lesions Rashes: no rashes Trauma: no lacerations or abrasions Neuro CN's II-XII intact bilaterally, no focal motor deficits, no sensory deficits noted and deep tendon reflexes 2+ bilaterally Psych mental status grossly normal and affect normal Assessment & Plan Assessment/Plan (1) COPD exacerbation: (2) CHF (congestive heart failure): QUALIFIERS: Heart failure chronicity: acute Heart failure type: unspecified Qualified Code(s): I50.9 - Heart failure, unspecified PLAN: 1. Acute heart failure with reduced ejection fraction-chest x-ray with mild CHF. BNP 2185. Echocardiogram September 2020 demonstrated an EF of 40%, RVSP estimated be 44 mmHg. IV Lasix. Strict I&O. Daily weight. Alejandro wraps bilateral lower extremities. 2. Acute exacerbation of chronic COPD-IV Solu-Medrol. Albuterol and DuoNeb aerosols. Respiratory panel and Covid negative. 3. Acute on chronic hypoxic respiratory failure-secondary to #1/#2. Continue supplement oxygen to maintain O2 at or above 90%. Home oxygen testing prior to discharge. Patient has required supplemental oxygen in the past however has not qualified for home oxygen at discharge. 4. Acute on chronic normocytic anemia/anemia of chronic disease-continue home Carafate. Transition to IV PPI. Check stool for occult blood. Trend CBC. Plan to transfuse for hemoglobin less than 7. 5. End-stage renal disease-on hemodialysis. Nephrology consulted. 6. Hypertension-stable, continue current regimen including atenolol, hydralazine, amlodipine. 7. Hyperlipidemia-continue statin. 8. Anxiety/depression-on duloxetine, mirtazapine. 9. History of CVA-on Eliquis. Not on aspirin, statin. 10. Type 2 diabetes mellitus, history of-hemoglobin A1c 12/01/2020 3.8%. 11. History of DVT-on Eliquis. 12. GERD-on Carafate, PPI. 13. Tobacco dependence-encouraged cessation. DVT prophylaxis-Eliquis This patient was seen by JOE Zayas under the supervision of Dr. Langford. Documented by User: Dr. Deandre Langford MD 03/11/21 15:51 Subjective Subjective Seen and examined. Discussed with the information systems administrator. Patient hemoglobin dropped from 10.9 on February 19 two 7.4 today patient mild short of breath on exertion but she is comfortable sitting. Denies chest pain Objective Data Lab / Micro Data Result Diagrams: 03/11/21 05:45 03/11/21 05:45 Physical Exam Narrative General: Alert, Oriented x3, Cooperative HEENT: Atraumatic, PERRLA, EOMI, Normocephalic Oral: No Gingival or Mucosal Lesions/ Ulcerations Neck: Supple, No JVD, Negative Carotid Bruits Lungs: Air entry diminished in bilateral lung bases. No crepitation/rhonchi Cardiovascular: Sinus rhythm, PVCs, Normal S1, Normal S2, No murmurs Abdomen: Bowel Sounds Present, Soft, Non Tender, Non-Distended : No renal angle tenderness. No suprapubic tenderness. Extremities: Bilateral ankle edema, Capillary Refill Less than 3 Seconds Skin: No rashes, No breakdown Musculoskeletal: No Tenderness to Palpation of Joints or Extremities Neurological: Cranial nerves II-XII grossly intact, DTR 2+/4 and Symmetrical, Neuro grossly intact Psych/Mental Status: Normal Affect, Appropriate. Assessment & Plan Assessment/Plan (1) COPD exacerbation: (2) CHF (congestive heart failure): QUALIFIERS: Heart failure chronicity: acute Heart failure type: unspecified Qualified Code(s): I50.9 - Heart failure, unspecified PLAN: This patient was seen in conjunction with INSULATION ESTIMATORChantal. I have independently interviewed and examined the patient and reviewed pertinent history, examination findings, laboratory and plan of management. I have reviewed the note and agree with the documented findings with the few additional points. In brief, patient is admitted for acute on chronic Respiratory failure. Chest x-ray shows pulmonary congestion/mild CHF feature. BNP elevated. Echo EF 40%, RVSP 44 mm used to mild pulmonary hypertension. Patient also has features of COPD exacerbation. Acute on chronic normocytic normochromic anemia: Patient hemoglobin dropped from 10.9 on 02/19, 8.1 on 03/08 and 7.4 today. Stool for occult blood ordered. Patient is stable and does not meet candidate for blood transfusion. Hold anticoagulant agent. ESRD on hemodialysis discussed with information systems administrator. I have discussed my assessment with Chantal HENDRICKSON and orders have been reviewed. Charges/Coding Visit Charges Inpatient E&M: 99305 Subs Hosp L2
--- NOTE | 2021-03-11 14:46 | NURSING ---
Read and reviewed SN documentation.
--- NOTE | 2021-03-11 15:31 | CASEMGMT ---
REGGIE CM: Return call received from [facility]. Pt remains active with them. States they had a visit scheduled for 03/03 but this was cancelled. PT's COMMUNITY REPRESENTATIVE is Jossie who can visit pt on Sunday if still in house. Yovanny Shankar RN CM
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
--- NOTE | 2021-03-11 16:47 | DIALYSIS ---
HD X 3.5 HOURS ON 2K BATH [id number] ENDED IN PROFILE B WITH REFILL. RIJ WITH GOOD FLOWS NO MEDS GIVEN VITALS STABLE THRU OUT TX REPORT TO KYLER PAREDES
[2021-03-11] MEDS: oxyCODONE 5 MG Tablet PO (20:15)
[2021-03-11] MEDS: 0.9% Saline Lock 10 ML Syringe IV (22:33)
[2021-03-12] VITALS (11 sets, daily range): BP systolic 125–149; BP diastolic 70–76; PULSE 59–93; RESP 16–18; TEMP 36.6–36.8; O2SAT 61–100
[2021-03-12] MEDS: oxyCODONE 5 MG Tablet PO ×2 (02:28→09:55)
[2021-03-12] MEDS: Gabapentin 300 MG Capsule PO ×2 (06:17→16:26)
[2021-03-12] MEDS: Dicyclomine 10 MG Capsule 20 MG PO ×3 (06:17→16:26)
[2021-03-12] MEDS: Sucralfate 1 GM Tablet PO ×3 (06:17→16:26)
[2021-03-12] MEDS: 0.9% Saline Lock 10 ML Syringe IV ×2 (06:17→09:50)
[2021-03-12] MEDS: Ipratropium/Albuterol Sulfate 3 ML AMPUL.NEB INHALATION ×3 (06:57→15:13)
[2021-03-12 07:32] LABS: Absolute Lymphocyte Count 0.57 X10^3/uL (0.83-4.51); Absolute Neutrophil Count 20.4 X10^3/uL (2.0-7.7); Basophil# 0.02 X10^3/uL; Basophil% 0.1 % (0-1); Hematocrit 24.2 % (37-47); Hemoglobin 7.3 g/dL (12.0-15.0); Lymphocyte # 0.57 X10^3/ul (0.83-4.51); Lymphocyte % 2.6 % (19-41); Mean Corp Hgb Conc 30.2 g/dL (32-36); Mean Corpuscular Hgb 27.2 pg (27.0-32.0); Mean Corpuscular Volume 90.3 fL (81-99); Mean Platelet Vol. 9.4 fl (6.2-12.0); Monocyte# 0.74 X10^3/uL; Monocyte% 3.4 % (0-10); NRBC Flagged by Analyzer 0 % (0-5); Neutrophil # 20.41 X10^3/uL (2.7-7.7); Neutrophil % 93.1 % (47-70); POSITIVE DIFFERENTIAL YES; Platelet Count 217 K/mm3 (150-450); RBC Distribution Width CV 18.7 % (11.6-14.6); RBC Distribution Width SD 61.6 fl (35.1-43.9); Red Blood Count 2.68 M/mm3 (4.2-5.4); White Blood Count 21.9 K/mm3 (4.4-11.0)
[2021-03-12 07:52] LABS: Differential Indicated SCAN CRITERIA MET
[2021-03-12 07:54] LABS: Anion Gap 9 (5-15); BUN 33 mg/dL (7-18); BUN/Creat Ratio 8.9 RATIO (10-20); Calcium,Total 8.1 mg/dL (8.5-10.1); Chloride 97 mmol/L (98-107); Creatinine, Serum 3.69 mg/dL (0.55-1.02); EST Glomerular Filtration Rate 13 mL/min (>60); Est Glom Filt Rate - Afr Amer 16 mL/min (>60); Estimated Creatinine Clearance 15.04 ml/min; Glucose 172 mg/dL (74-106); Potassium 4.2 mmol/L (3.5-5.1); Sodium Level 134 mmol/L (136-145)
[2021-03-12] MEDS: Furosemide 100 MG/10 ML Vial 60 MG IV (09:44)
[2021-03-12] MEDS: amLODIPine 10 MG Tablet PO (09:44)
[2021-03-12] MEDS: APIXABAN 2.5 MG TABLET PO (09:45)
[2021-03-12] MEDS: Calcium Acetate 667 MG Capsule PO ×2 (09:45→16:25)
[2021-03-12] MEDS: Atenolol 25 MG Tablet PO (09:48)
[2021-03-12] MEDS: DULoxetine Hcl 30 MG Capsule PO (09:49)
[2021-03-12] MEDS: Acetaminophen 325 MG Tablet 650 MG PO (09:54)
[2021-03-12 11:41] LABS: Differential Comment SCANNED
--- NOTE | 2021-03-12 11:42 | PCM.DC ---
Discharge Instructions Diet Discharge Diet: 8 Cup Fluid Restriction, 2000 mg Sodium Diet and Renal Diet Activity Discharge Activity: Return to Normal Activity Dressing / Incision Call your doctor if you observe: Shortness of breath, Dizziness and Chest pain Follow Up Care Test Results: Test results from this visit will be discussed in further detail at your follow-up appointment, if applicable. Discharge Plan Admission Admit Date/Time: 03/10/21 15:44 Primary Reason for Your Visit: Heart failure, COPD Attending Provider: Deandre Langford Primary Care Provider: Shar Greene Consulting Providers: Soraida Sears Instructions Additional Instructions / Restrictions: Continue follow-up with palliative medicine. Discharge Orders/Prescriptions Prescriptions: New furosemide [Lasix] 40 mg tablet 40 mg PO DAILY Qty: 30 RF: 0 Continued atenolol 25 MG tablet 25 mg PO DAILY RF: 0 hydralazine 100 MG tablet 100 mg PO TID RF: 0 duloxetine 30 MG capsule 30 mg PO DAILY RF: 0 gabapentin 100 MG capsule 300 mg PO TID RF: 0 amlodipine 10 mg Tablet 10 mg PO DAILY RF: 0 calcium acetate(phosphat bind) 667 mg Capsule 667 mg PO TID RF: 0 RenaPlex-D 800 mcg-12.5 mg -2,000 unit Tablet 1 tab PO DAILY RF: 0 oxycodone 5 mg Tablet, Oral Only 5 - 10 mg PO Q6H PRN (Reason: Pain) RF: 0 sennosides [Senokot] 8.6 mg tablet 17.2 mg PO QHS PRN (Reason: Constipation) RF: 0 docusate sodium [Colace] 100 mg capsule 200 mg PO BID PRN (Reason: Constipation) RF: 0 lactulose 20 gram/30 mL solution 30 ml PO DAILY PRN (Reason: Constipation) RF: 0 mirtazapine 45 mg Tablet 45 mg PO QHS RF: 0 Eliquis 2.5 mg Tablet 2.5 mg PO BID RF: 0 albuterol sulfate 2.5 mg /3 mL (0.083 %) solution for nebulization 2.5 mg inhalation Q6H PRN (Reason: shortness of breath or wheezing) Qty: 25 RF: 0 benzonatate [Tessalon Perles] 100 mg capsule 100 mg PO BID PRN (Reason: cough) Qty: 20 RF: 0 dicyclomine 20 mg tablet 20 mg PO TID RF: 0 prednisone 20 mg tablet 40 mg PO DAILY 5 Days Qty: 10 RF: 0 Changed pantoprazole 40 MG tablet 40 mg PO BID Qty: 60 RF: 0 Referrals / Follow Up: Soraida Sears MD [STAFF PHYSICIAN] - See Referral Note (As scheduled for hemodialysis/nephrology follow-up) Shar Greene MD [Primary Care Provider] - In 1 Week Disposition Disposition (needs filled in before D/C Order can be placed): Home Health Service
--- NOTE | 2021-03-12 11:57 | PCM.DC.SUM ---
Documented by User: Chantal Barrera NP, [employer] 03/12/21 12:05 Providers Date of Admission: 03/10/21 Date of Discharge: 03/12/21 Primary Care Physician: Dr. Shar Greene MD Consultations 03/10/21 17:11 Consult: Nephrology Routine Consulting Provider: Soraida Sears Reason for Consult: ESRD on HD, admitted w/ COPD/CHF exac, consider more aggressive HD tomorrow EMERGENT Consult: No MD Notified: Yes Date Notified: 03/10/21 Time Notified: 17:42 Method of Notification: Answering Service Reason For Visit: COPD EXAC, CHF EXAC, ACUTE RESPIRATORY Diagnosis Discharge Diagnosis (1) Anemia: Status: Acute Code(s): D64.9 - Anemia, unspecified (2) ESRD (end stage renal disease): Status: Acute Code(s): N18.6 - End stage renal disease Medications at Discharge Home Medications atenolol 25 mg PO DAILY 12/19/19 duloxetine 30 mg PO DAILY 03/31/20 hydralazine 100 mg PO TID 03/31/20 gabapentin 300 mg PO TID 10/08/20 RenaPlex-D 1 tab PO DAILY 11/30/20 amlodipine 10 mg PO DAILY 11/30/20 calcium acetate(phosphat bind) 667 mg PO TID 11/30/20 oxycodone 5 - 10 mg PO Q6H PRN 11/30/20 docusate sodium [Colace] 200 mg PO BID PRN 12/02/20 lactulose 30 ml PO DAILY PRN 12/02/20 sennosides [Senokot] 17.2 mg PO QHS PRN 12/02/20 Eliquis 2.5 mg PO BID 01/08/21 albuterol sulfate 2.5 mg INHALATION Q6H PRN #25 vial 01/08/21 mirtazapine 45 mg PO QHS 01/08/21 benzonatate [Tessalon Perles] 100 mg PO BID PRN #20 cap 01/25/21 dicyclomine 20 mg PO TID 02/26/21 furosemide [Lasix] 40 mg PO DAILY #30 tab 03/12/21 pantoprazole 40 mg PO BID #60 tab 03/12/21 prednisone 40 mg PO DAILY 5 Days #10 tab 03/12/21 Hospital Course Operations None Procedures Dialysis Summary of Care Provided Minutes Spent on Discharge: 35 Hospital Course: Patient is a 71-year-old female admitted 03/10/2021 due to dyspnea, wheezing. 1. Acute heart failure with reduced ejection fraction-chest x-ray with mild CHF. BNP 2186. Echocardiogram September 2020 demonstrated an EF of 40%, RVSP estimated be 44 mmHg. IV Lasix during admission, begin Lasix 40 mg daily at discharge. Stress test September 2020 negative for ischemia. Continue dialysis regimen for fluid removal as well. Follow-up with PCP in 1 week. 2. Acute exacerbation of chronic COPD-IV Solu-Medrol during admission, transition to prednisone burst at discharge. Respiratory panel and Covid negative. 3. Acute on chronic hypoxic respiratory failure-secondary to #1/#2. Oxygen stable on room air. Home oxygen testing completed prior to discharge and patient did not require further supplemental oxygen. 4. Acute on chronic normocytic anemia/anemia of chronic disease-Home PPI increased to twice daily. Patient has history of fluctuating hemoglobin. Underwent recent EGD/colonoscopy November 2020 which was negative for GI bleed. Demonstrated reflux esophagitis. Recommend repeat CBC within 1 week by primary care provider. 5. End-stage renal disease-on hemodialysis. Continue follow-up with nephrology. 6. Hypertension-stable, continue current regimen including atenolol, hydralazine, amlodipine. 7. Hyperlipidemia-continue statin. 8. Anxiety/depression-on duloxetine, mirtazapine. 9. History of CVA-on Eliquis. Not on aspirin, statin. 10. Type 2 diabetes mellitus, history of-hemoglobin A1c 12/01/2020 3.8%. 11. History of DVT-on Eliquis. 12. GERD-on PPI. 13. Tobacco dependence-encouraged cessation. Physical Exam Const alert, oriented x3 and no apparent distress Orientation / Consciousness: awake, oriented to person, oriented to place and oriented to time HEENT normocephalic and moist oral mucous membranes Eyes PERRL, EOMs intact bilaterally and conjunctivae normal Neck no lymphadenopathy Resp Auscultation: wheezes and diminished lung sounds Cardio regular rate, regular rhythm and no murmurs Peripheral Pulses: pulses 2+ throughout GI normal to inspection, nondistended, normoactive bowel sounds, non-tender and non-distended Extremity normal to inspection General Extremity: edema bilateral lower extremity Details: mild Skin no rashes or lesions noted Lesions: no lesions Rashes: no rashes Trauma: no lacerations or abrasions Neuro CN's II-XII intact bilaterally, no focal motor deficits, no sensory deficits noted and deep tendon reflexes 2+ bilaterally Psych mental status grossly normal and affect normal Patient seen and examined prior to discharge. Physical assessment as noted above. Patient is stable for discharge with follow up recommendations as noted above. This patient was seen by JOE Zayas under the supervision of Dr. Langford. Weight / BMI Weight Weight: 161 lb 8 oz Body Mass Index (BMI) 25.0 ABG / Lab / Microbiology Data Result Diagrams: 03/12/21 06:15 03/12/21 06:15 Laboratory: Laboratory Results - last 24 hr 03/12/21 06:15: WBC 21.9 H, RBC 2.68 L, Hgb 7.3 L, Hct 24.2 L, MCV 90.3 D, MCH 27.2, MCHC 30.2 L D, RDW Std Deviation 61.6 H, RDW Coeff of Destiny 18.7 H, Plt Count 217, MPV 9.4, Immature Gran % (Auto) 0.800, Neut % (Auto) 93.1 H, Lymph % (Auto) 2.6 L, [facility] % (Auto) 3.4, Eos % (Auto) 0.0, Baso % (Auto) 0.1, Absolute Neuts (auto) 20.4 H, Absolute Lymphs (auto) 0.57 L, Nucleated RBC % 0, Differential Comment SCANNED 03/12/21 06:15: Sodium 134 L, Potassium 4.2, Chloride 97 L, Carbon Dioxide 28.0, Anion Gap 9, BUN 33 H, Creatinine 3.69 H, Estim Creat Clear Calc 15.04, Est GFR (MDRD) Af Amer 16 L, Est GFR (MDRD) Non-Af 13 L, BUN/Creatinine Ratio 8.9 L, Glucose 172 H, Calcium 8.1 L Microbiology: Microbiology 03/10/21 16:30 Mucosa - Nose Respiratory Panel (PCR) - Final D/C Instructions Discharge Diet: 8 Cup Fluid Restriction, 2000 mg Sodium Diet and Renal Diet Call your doctor if you observe: Shortness of breath, Dizziness and Chest pain Meaningful Use Info Meaningful Use Diagnoses (Choose all that apply): CHF CHF NATALIA/ARB ordered at discharge?: No Reason NATALIA/ARB not ordered?: Worsening renal disease Documented LVEF (%): 40 Discharge Plan Admission Admit Date/Time: 03/10/21 15:44 Primary Reason for Your Visit: Heart failure, COPD Attending Provider: Deandre Langford Primary Care Provider: Shar Greene Consulting Providers: Soraida Sears Instructions Additional Instructions / Restrictions: Continue follow-up with palliative medicine. Discharge Orders/Prescriptions Prescriptions: New furosemide [Lasix] 40 mg tablet 40 mg PO DAILY Qty: 30 RF: 0 Continued atenolol 25 MG tablet 25 mg PO DAILY RF: 0 hydralazine 100 MG tablet 100 mg PO TID RF: 0 duloxetine 30 MG capsule 30 mg PO DAILY RF: 0 gabapentin 100 MG capsule 300 mg PO TID RF: 0 amlodipine 10 mg Tablet 10 mg PO DAILY RF: 0 calcium acetate(phosphat bind) 667 mg Capsule 667 mg PO TID RF: 0 RenaPlex-D 800 mcg-12.5 mg -2,000 unit Tablet 1 tab PO DAILY RF: 0 oxycodone 5 mg Tablet, Oral Only 5 - 10 mg PO Q6H PRN (Reason: Pain) RF: 0 sennosides [Senokot] 8.6 mg tablet 17.2 mg PO QHS PRN (Reason: Constipation) RF: 0 docusate sodium [Colace] 100 mg capsule 200 mg PO BID PRN (Reason: Constipation) RF: 0 lactulose 20 gram/30 mL solution 30 ml PO DAILY PRN (Reason: Constipation) RF: 0 mirtazapine 45 mg Tablet 45 mg PO QHS RF: 0 Eliquis 2.5 mg Tablet 2.5 mg PO BID RF: 0 albuterol sulfate 2.5 mg /3 mL (0.083 %) solution for nebulization 2.5 mg inhalation Q6H PRN (Reason: shortness of breath or wheezing) Qty: 25 RF: 0 benzonatate [Tessalon Perles] 100 mg capsule 100 mg PO BID PRN (Reason: cough) Qty: 20 RF: 0 dicyclomine 20 mg tablet 20 mg PO TID RF: 0 prednisone 20 mg tablet 40 mg PO DAILY 5 Days Qty: 10 RF: 0 Changed pantoprazole 40 MG tablet 40 mg PO BID Qty: 60 RF: 0 Referrals / Follow Up: Soraida Sears MD [STAFF PHYSICIAN] - See Referral Note (As scheduled for hemodialysis/nephrology follow-up) Shar Greene MD [Primary Care Provider] - In 1 Week Disposition Disposition (needs filled in before D/C Order can be placed): Home Health Service Documented by User: Dr. Deandre Langford MD 03/12/21 14:40 Providers Date of Admission: 03/10/21 Reason For Visit: COPD EXAC, CHF EXAC, ACUTE RESPIRATORY Medications at Discharge Home Medications atenolol 25 mg PO DAILY 12/19/19 duloxetine 30 mg PO DAILY 03/31/20 hydralazine 100 mg PO TID 03/31/20 gabapentin 300 mg PO TID 10/08/20 RenaPlex-D 1 tab PO DAILY 11/30/20 amlodipine 10 mg PO DAILY 11/30/20 calcium acetate(phosphat bind) 667 mg PO TID 11/30/20 oxycodone 5 - 10 mg PO Q6H PRN 11/30/20 docusate sodium [Colace] 200 mg PO BID PRN 12/02/20 lactulose 30 ml PO DAILY PRN 12/02/20 sennosides [Senokot] 17.2 mg PO QHS PRN 12/02/20 Eliquis 2.5 mg PO BID 01/08/21 albuterol sulfate 2.5 mg INHALATION Q6H PRN #25 vial 01/08/21 mirtazapine 45 mg PO QHS 01/08/21 benzonatate [Tessalon Perles] 100 mg PO BID PRN #20 cap 01/25/21 dicyclomine 20 mg PO TID 02/26/21 furosemide [Lasix] 40 mg PO DAILY #30 tab 03/12/21 pantoprazole 40 mg PO BID #60 tab 03/12/21 prednisone 40 mg PO DAILY 5 Days #10 tab 03/12/21 Hospital Course Summary of Care Provided Hospital Course: This patient was seen in conjunction with Chantal HENDRICKSON. I have independently interviewed and examined the patient and reviewed pertinent history, examination findings, laboratory and plan of management. I have reviewed the note and agree with the documented findings with the few additional points. In brief, patient is admitted for acute on chronic Respiratory failure. Chest x-ray shows pulmonary congestion/mild CHF feature. BNP elevated. Echo EF 40%, RVSP 44 mm used to mild pulmonary hypertension. Patient also has features of COPD exacerbation. Stress was negative in September 2020. Acute on chronic normocytic normochromic anemia: Patient hemoglobin dropped from 10.9 on 02/19, 8.1 on 03/08 and 7.4 today. Patient recently had EGD and colonoscopy in November 2020 was negative for GI bleed. Had reflux esophagitis. Patient has history of anemia and required PRBC transfusion in the past. Currently H&H is stable above 7 g and does not require transfusion. ESRD on hemodialysis discussed with geriatric social worker. Discharge medication reconciliation done. Discharge follow-up instructions completed. Discharge process discussed with the patient and all questions were answered to patient's satisfaction. Total time spent, exact 35 minutes on discharge meds reconciliation, examination, coordination of care with nurses and ancillary staff, review of imaging and blood test and discussion with the patient on follow-up instructions I have discussed my assessment with Chantal HENDRICKSON and orders have been reviewed. Physical Exam Narrative General: Alert, Oriented x3, Cooperative HEENT: Atraumatic, PERRLA, EOMI, Normocephalic Oral: No Gingival or Mucosal Lesions/ Ulcerations Neck: Supple, No JVD, Negative Carotid Bruits Lungs: Air entry diminished in bilateral lung bases. No crepitation/rhonchi Cardiovascular: Sinus rhythm, PVCs, Normal S1, Normal S2, No murmurs Abdomen: Bowel Sounds Present, Soft, Non Tender, Non-Distended : No renal angle tenderness. No suprapubic tenderness. Extremities: Bilateral ankle edema improved. Capillary Refill Less than 3 Seconds Skin: No rashes, No breakdown Musculoskeletal: No Tenderness to Palpation of Joints or Extremities Neurological: Cranial nerves II-XII grossly intact, DTR 2+/4 and Symmetrical, Neuro grossly intact Psych/Mental Status: Normal Affect, Appropriate. ABG / Lab / Microbiology Data Result Diagrams: 03/12/21 06:15 03/12/21 06:15 Discharge Plan Admission Admit Date/Time: 03/10/21 15:44 Primary Reason for Your Visit: Heart failure, COPD Attending Provider: Deandre Langford Primary Care Provider: Shar Greene Consulting Providers: Soraida Sears Instructions Additional Instructions / Restrictions: Continue follow-up with palliative medicine. Discharge Orders/Prescriptions Prescriptions: New furosemide [Lasix] 40 mg tablet 40 mg PO DAILY Qty: 30 RF: 0 Continued atenolol 25 MG tablet 25 mg PO DAILY RF: 0 hydralazine 100 MG tablet 100 mg PO TID RF: 0 duloxetine 30 MG capsule 30 mg PO DAILY RF: 0 gabapentin 100 MG capsule 300 mg PO TID RF: 0 amlodipine 10 mg Tablet 10 mg PO DAILY RF: 0 calcium acetate(phosphat bind) 667 mg Capsule 667 mg PO TID RF: 0 RenaPlex-D 800 mcg-12.5 mg -2,000 unit Tablet 1 tab PO DAILY RF: 0 oxycodone 5 mg Tablet, Oral Only 5 - 10 mg PO Q6H PRN (Reason: Pain) RF: 0 sennosides [Senokot] 8.6 mg tablet 17.2 mg PO QHS PRN (Reason: Constipation) RF: 0 docusate sodium [Colace] 100 mg capsule 200 mg PO BID PRN (Reason: Constipation) RF: 0 lactulose 20 gram/30 mL solution 30 ml PO DAILY PRN (Reason: Constipation) RF: 0 mirtazapine 45 mg Tablet 45 mg PO QHS RF: 0 Eliquis 2.5 mg Tablet 2.5 mg PO BID RF: 0 albuterol sulfate 2.5 mg /3 mL (0.083 %) solution for nebulization 2.5 mg inhalation Q6H PRN (Reason: shortness of breath or wheezing) Qty: 25 RF: 0 benzonatate [Tessalon Perles] 100 mg capsule 100 mg PO BID PRN (Reason: cough) Qty: 20 RF: 0 dicyclomine 20 mg tablet 20 mg PO TID RF: 0 prednisone 20 mg tablet 40 mg PO DAILY 5 Days Qty: 10 RF: 0 Changed pantoprazole 40 MG tablet 40 mg PO BID Qty: 60 RF: 0 Referrals / Follow Up: Soraida Sears MD [STAFF PHYSICIAN] - See Referral Note (As scheduled for hemodialysis/nephrology follow-up) Shar Greene MD [Primary Care Provider] - In 1 Week Disposition Disposition (needs filled in before D/C Order can be placed): Home Health Service Charges/Coding Visit Charges Inpatient E&M: 32545 Disch Hosp
--- NOTE | 2021-03-15 12:34 | CASEMGMT ---
REGGIE FAN Discharge Follow-up Phone Call: EDUZiggy:Jessee Strata:4 Call Date: 03/15/21 Discharge Date: 03/12/21 Time of Call: 1235 Admitting Diagnosis: A/C CHF This RN CM attempted to contact pt via phone for discharge follow-up. Automated message received stating pt was not accepting calls at this time. Noted pt was active with [facility] prior to admission. This RN CM contacted [facility] with [facility] and notified of pt's discharge. Pt also had resumption of SN, PT, and OT services through [facility]. Yovanny Shankar RN CM
== END 2021-03-12 17:31 | disposition home health service (06) | DRG 291 ==
LOC: ED 15:32 → PCU 16:11
PROVIDERS: Nurse Practitioner Family; Admitting Provider Family Medicine; Emergency Provider Emergency Medicine; PCP Family Medicine; Visit Provider Internal Medicine
DX: I13.2 Hypertensive heart and chronic kidney disease with heart failure and with stage 5 chronic kidney disease, or end stage renal disease (principal); I50.21 Acute systolic (congestive) heart failure; N18.6 End stage renal disease; J96.21 Acute and chronic respiratory failure with hypoxia; J44.1 Chronic obstructive pulmonary disease with (acute) exacerbation; D63.1 Anemia in chronic kidney disease; I27.20 Pulmonary hypertension, unspecified; E11.22 Type 2 diabetes mellitus with diabetic chronic kidney disease; K21.00 Gastro-esophageal reflux disease with esophagitis, without bleeding; F32.9 Major depressive disorder, single episode, unspecified; F41.9 Anxiety disorder, unspecified; F17.210 Nicotine dependence, cigarettes, uncomplicated; E78.00 Pure hypercholesterolemia, unspecified; M19.90 Unspecified osteoarthritis, unspecified site; I25.2 Old myocardial infarction; Z99.2 Dependence on renal dialysis; Z79.01 Long term (current) use of anticoagulants; Z79.899 Other long term (current) drug therapy; Z86.718 Personal history of other venous thrombosis and embolism; Z86.73 Personal history of transient ischemic attack (TIA), and cerebral infarction without residual deficits
CPT/HCPCS: 36415; 71045; 80048; 80053; 80061; 82962; 83735; 83880; 84145; 84443; 84484; 85025; 87426; 87633; 90937; 93005; 94640; 96374; 97162; 97166; 97530; 99251; 99284; 99285; 99406; J7030; J7040; A4216; G0257; G0463; J1940

== ENCOUNTER 2021-03-19 08:26 | Observation (INO) | payer MEDICARE, MEDICAID, SELFPAY ==
[2021-03-19] VITALS (25 sets, daily range): BP systolic 146–219; BP diastolic 67–104; PULSE 60–126; RESP 8–45; TEMP 36.2–37.1; O2SAT 85–100; BMI 26.2
--- NOTE | 2021-03-19 08:34 | RAD_ITS ---
STUDY: X-RAY CHEST REASON FOR EXAM: Female, 71 years old. Shortness of breath TECHNIQUE: Frontal view of the chest COMPARISON: 03/10/21 FINDINGS: There are mild congestive changes noted. The lungs are otherwise clear. There are no pleural effusions. There is no pneumothorax. Again noted is a right-sided central catheter with its tip in the superior vena cava. The heart is normal in size. The visualized osseous structures are within normal limits. RAD/Chest 1 View (Portable) IMPRESSION: Mild pulmonary vascular congestion. Electronically Signed: Dimas Acevedo MD at 9:20 EDT Tel , Service support ,
--- NOTE | 2021-03-19 08:34 | EKG12_ITS ---
Test Reason : RHYTHM CHANGE Blood Pressure : / mmHG Vent. Rate : 074 BPM Atrial Rate : 074 BPM P-R Int : 156 ms QRS Dur : 084 ms QT Int : 400 ms P-R-T Axes : 069 018 066 degrees QTc Int : 444 ms Normal sinus rhythm Normal ECG Confirmed by BRANDON LEMON, MACIE ([id number]), index editor BIRDIE TORRES ([id number]) on 03/21/2021 10:33:56 AM Referred By: NAYELI Confirmed By:MACIE TAYLOR MD
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
[2021-03-19] MEDS: Nitroglycerin SL (ED/IMG/CATH) 0.4 MG TABLET SL (08:40)
[2021-03-19] MEDS: Ipratropium/Albuterol Sulfate 3 ML AMPUL.NEB INHALATION ×3 (08:45→19:01)
[2021-03-19 08:58] LABS: Absolute Lymphocyte Count 2.28 X10^3/uL (0.83-4.51); Absolute Neutrophil Count 10.9 X10^3/uL (2.0-7.7); Basophil# 0.02 X10^3/uL; Basophil% 0.1 % (0-1); Eosinophil# 0.28 X10^3/uL; Hematocrit 27.7 % (37-47); Hemoglobin 8.4 g/dL (12.0-15.0); Lymphocyte # 2.28 X10^3/ul (0.83-4.51); Lymphocyte % 15.9 % (19-41); Mean Corp Hgb Conc 30.3 g/dL (32-36); Mean Corpuscular Hgb 28.7 pg (27.0-32.0); Mean Corpuscular Volume 94.5 fL (81-99); Mean Platelet Vol. 8.7 fl (6.2-12.0); Monocyte# 0.72 X10^3/uL; NRBC Flagged by Analyzer 0.8 % (0-5); Neutrophil # 10.93 X10^3/uL (2.7-7.7); Neutrophil % 76.2 % (47-70); POSITIVE MORPHOLOGY YES; Platelet Count 197 K/mm3 (150-450); RBC Distribution Width CV 21.9 % (11.6-14.6); Red Blood Count 2.93 M/mm3 (4.2-5.4); White Blood Count 14.3 K/mm3 (4.4-11.0)
[2021-03-19 09:00] LABS: Differential Indicated SCAN CRITERIA MET
[2021-03-19 09:18] LABS: Anion Gap 6 (5-15); BUN 32 mg/dL (7-18); BUN/Creat Ratio 7.5 RATIO (10-20); Calcium,Total 8.8 mg/dL (8.5-10.1); Chloride 101 mmol/L (98-107); Creatinine, Serum 4.26 mg/dL (0.55-1.02); EST Glomerular Filtration Rate 11 mL/min (>60); Est Glom Filt Rate - Afr Amer 13 mL/min (>60); Estimated Creatinine Clearance 13.03 ml/min; Glucose 98 mg/dL (74-106); Potassium 4.4 mmol/L (3.5-5.1); Sodium Level 138 mmol/L (136-145); Troponin-I HS 44 pg/mL (3.0-54.0)
--- NOTE | 2021-03-19 09:25 | EKG12_ITS ---
Test Reason : CP ADMIT Blood Pressure : / mmHG Vent. Rate : 084 BPM Atrial Rate : 084 BPM P-R Int : 140 ms QRS Dur : 078 ms QT Int : 368 ms P-R-T Axes : 070 026 070 degrees QTc Int : 434 ms Sinus rhythm with Premature atrial complexes Otherwise normal ECG When compared with ECG of 19-MAR-2021 09:25, MANUAL COMPARISON REQUIRED, DATA IS UNCONFIRMED Confirmed by TERE LEMON, JAN ([id number]), social media editor DEANNA LEMUS ([id number]) on 03/22/2021 2:14:13 PM Referred By: SEAN Confirmed By:JAN CARRANZA MD
[2021-03-19 09:35] LABS: Anisocytosis 2+; Differential Comment SCANNED; Hypochromasia 2+; Platelet Estimate ADEQUATE (ADEQ); Polychromasia 2+
--- NOTE | 2021-03-19 13:59 | EKG12_ITS ---
Test Reason : SOB Blood Pressure : / mmHG Vent. Rate : 103 BPM Atrial Rate : 312 BPM P-R Int : 000 ms QRS Dur : 082 ms QT Int : 360 ms P-R-T Axes : 000 023 065 degrees QTc Int : 471 ms Atrial flutter with variable A-V block Nonspecific T wave abnormality Abnormal ECG Confirmed by TERE LEMON, JAN ([id number]), city editor BIRDIE TORRES ([id number]) on 03/21/2021 11:38:01 AM Referred By: NAYELI Confirmed By:JAN CARRANZA MD
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
--- NOTE | 2021-03-19 14:02 | ED.RN ---
Pt was up to bedside commode t getting her back she started having increasing SOB and wheezing. Pt HR went back into afib and up in the 120's and patients pulse ox went down to 74% on 3L, patient appears to be in distress and anxious. Hospitalist at bedside ordered breathing treatment. Dr Roy called to bedside, respiratory placed patient back on bipap.
[2021-03-19 16:43] LABS: Troponin-I HS 85 pg/mL (3.0-54.0)
[2021-03-19] MEDS: ALPRAZolam 0.25 MG Tablet PO (16:47)
[2021-03-19] MEDS: MethylPREDNISolone 125 MG/2 ML Vial 60 MG IV ×2 (16:51→21:35)
[2021-03-19] MEDS: Minoxidil 2.5 MG Tablet 5 MG PO (16:52)
[2021-03-19] MEDS: APIXABAN 2.5 MG TABLET PO ×2 (16:52→21:39)
[2021-03-19] MEDS: guaiFENesin 1,200 MG Tablet 1200 MG PO (16:52)
[2021-03-19] MEDS: Calcium Acetate 667 MG Capsule PO (16:53)
[2021-03-19] MEDS: Atenolol 50 MG Tablet PO (16:53)
[2021-03-19] MEDS: Gabapentin 300 MG Capsule PO ×2 (16:53→21:39)
[2021-03-19] MEDS: amLODIPine 10 MG Tablet PO (16:53)
--- NOTE | 2021-03-19 18:45 | RAD_ITS ---
STUDY: X-RAY CHEST REASON FOR EXAM: Female, 71 years old. Shortness of breath TECHNIQUE: Frontal view COMPARISON: 03/19/2021 at 08:55 hours FINDINGS: Stable right-sided venous line. The lungs are expanded. Interstitial densities with increasing infiltrates since the previous study. Left basilar effusion at the costophrenic angle. Normal size heart. Normal mediastinum and farhan. Normal visualized pulmonary arteries. Normal visualized aortic arch and descending thoracic aorta. Normal visualized thoracic spine. Normal visualized ribs, clavicles, and shoulders. There is no demonstrated abnormality of the visualized soft tissue structures of the upper abdomen. RAD/Chest 1 View (Portable) IMPRESSION: Interstitial densities with increasing infiltrates since the previous study. Possible mild left effusion. Electronically Signed: Camron Honeycutt DO at 21:36 EDT Tel [phone], Service support ,
[2021-03-19] MEDS: 0.9% Saline Lock 10 ML Syringe IV (18:51)
[2021-03-19] MEDS: Furosemide 40 MG/4 ML Vial IV (18:51)
--- NOTE | 2021-03-19 19:20 | NURSING ---
pandemic charting initiated
[2021-03-19] MEDS: hydrALAZINE 50 MG Tablet 100 MG PO (21:39)
[2021-03-19 22:24] LABS: Troponin-I HS 135 pg/mL (3.0-54.0)
[2021-03-20] VITALS (17 sets, daily range): BP systolic 92–152; BP diastolic 43–72; PULSE 50–89; RESP 16–20; TEMP 36.8–37.5; O2SAT 98–100
--- NOTE | 2021-03-20 01:06 | NURSING ---
pt taken off bipap at this time per request, placed on 3L NC, satting 98%
[2021-03-20] MEDS: Gabapentin 300 MG Capsule PO ×3 (05:34→21:40)
[2021-03-20] MEDS: hydrALAZINE 50 MG Tablet 100 MG PO ×2 (05:35→16:07)
[2021-03-20 06:43] LABS: Absolute Lymphocyte Count 0.38 X10^3/uL (0.83-4.51); Absolute Neutrophil Count 13.2 X10^3/uL (2.0-7.7); Basophil# 0.01 X10^3/uL; Basophil% 0.1 % (0-1); Hematocrit 28.1 % (37-47); Hemoglobin 8.3 g/dL (12.0-15.0); Lymphocyte # 0.38 X10^3/ul (0.83-4.51); Lymphocyte % 2.7 % (19-41); Mean Corp Hgb Conc 29.5 g/dL (32-36); Mean Corpuscular Hgb 28.2 pg (27.0-32.0); Mean Corpuscular Volume 95.6 fL (81-99); Mean Platelet Vol. 9.2 fl (6.2-12.0); Monocyte# 0.23 X10^3/uL; Monocyte% 1.7 % (0-10); NRBC Flagged by Analyzer 0.4 % (0-5); Neutrophil # 13.15 X10^3/uL (2.7-7.7); Neutrophil % 94.8 % (47-70); POSITIVE DIFFERENTIAL YES; POSITIVE MORPHOLOGY YES; Platelet Count 200 K/mm3 (150-450); RBC Distribution Width CV 22.1 % (11.6-14.6); Red Blood Count 2.94 M/mm3 (4.2-5.4); White Blood Count 13.9 K/mm3 (4.4-11.0)
[2021-03-20 07:08] LABS: Anion Gap 8 (5-15); BUN 55 mg/dL (7-18); BUN/Creat Ratio 9.7 RATIO (10-20); Calcium,Total 8.3 mg/dL (8.5-10.1); Chloride 99 mmol/L (98-107); Creatinine, Serum 5.67 mg/dL (0.55-1.02); EST Glomerular Filtration Rate 8 mL/min (>60); Est Glom Filt Rate - Afr Amer 10 mL/min (>60); Estimated Creatinine Clearance 9.79 ml/min; Glucose 177 mg/dL (74-106); Potassium 4.3 mmol/L (3.5-5.1); Sodium Level 136 mmol/L (136-145); Troponin-I HS 94 pg/mL (3.0-54.0)
[2021-03-20 07:10] LABS: Differential Indicated SCAN CRITERIA MET
[2021-03-20 07:14] LABS: Anisocytosis 2+; Polychromasia 1+
[2021-03-20] MEDS: Ipratropium/Albuterol Sulfate 3 ML AMPUL.NEB INHALATION ×4 (07:14→19:32)
[2021-03-20 08:20] LABS: BNP,B-Type NATRIURETIC PEPTIDE > 5000.0 pg/mL (0-100)
[2021-03-20] MEDS: APIXABAN 2.5 MG TABLET PO ×2 (10:53→21:40)
[2021-03-20] MEDS: amLODIPine 10 MG Tablet PO (10:53)
[2021-03-20] MEDS: Furosemide 40 MG Tablet PO (10:53)
[2021-03-20] MEDS: Calcium Acetate 667 MG Capsule PO ×3 (10:53→16:07)
[2021-03-20] MEDS: Minoxidil 2.5 MG Tablet 5 MG PO (10:53)
[2021-03-20] MEDS: MethylPREDNISolone 125 MG/2 ML Vial 60 MG IV ×2 (10:53→21:40)
[2021-03-20] MEDS: DULoxetine Hcl 30 MG Capsule PO (10:53)
[2021-03-20] MEDS: Atenolol 50 MG Tablet PO (10:53)
[2021-03-20] MEDS: guaiFENesin 1,200 MG Tablet 1200 MG PO ×2 (10:56→21:40)
--- NOTE | 2021-03-20 15:38 | PN.HOSP_ITS ---
Subjective Subjective Breathing much better today. Tolerating NC. Objective Data Objective Data Vital Signs: Vital Signs Temp Pulse Resp BP Pulse Ox 36.8 C 70 16 131/58 H 100 03/20/21 08:23 03/20/21 11:15 03/20/21 11:15 03/20/21 08:23 03/20/21 08:31 Oxygen Flow Rate (L/min) 3 Oxygen Delivery Method Nasal Cannula Weight: 76.2 kg Body Mass Index (BMI) 26.2 Intake & Output: Intake and Output for Last 24 Hours 03/18/21 03/19/21 03/20/21 23:59 23:59 23:59 Intake Total 620 / 620 50 / 50 Output Total 220 / 220 0 / 0 Balance 400 / 400 50 / 50 Lab / Micro Data Result Diagrams: 03/20/21 05:48 03/20/21 05:48 Labs: Laboratory Results - last 24 hr 03/19/21 16:16: Troponin I High Sens 85 H 03/19/21 21:39: Troponin I High Sens 135 H* 03/20/21 05:48: WBC 13.9 H, RBC 2.94 L, Hgb 8.3 L, Hct 28.1 L, MCV 95.6, MCH 28.2, MCHC 29.5 L, RDW Std Deviation 74.0 H, RDW Coeff of Destiny 22.1 H, Plt Count 200, MPV 9.2, Immature Gran % (Auto) 0.700, Neut % (Auto) 94.8 H, Lymph % (Auto) 2.7 L, [place] % (Auto) 1.7, Eos % (Auto) 0.0, Baso % (Auto) 0.1, Absolute Neuts (auto) 13.2 H, Absolute Lymphs (auto) 0.38 L, Nucleated RBC % 0.4, Polychromasia 1+, Anisocytosis 2+ 03/20/21 05:48: Sodium 136, Potassium 4.3, Chloride 99, Carbon Dioxide 29.0, Anion Gap 8, BUN 55 H, Creatinine 5.67 H, Estim Creat Clear Calc 9.79, Est GFR (MDRD) Af Amer 10 L, Est GFR (MDRD) Non-Af 8 L, BUN/Creatinine Ratio 9.7 L, Glucose 177 H, Calcium 8.3 L, Troponin I High Sens 94 H 03/20/21 05:48: B-Natriuretic Peptide > 5000.0 H Micro: Microbiology 03/19/21 08:35 Nasal Secretion SARS-CoV-2 Antigen (Rapid) - Final Radiography Diagnostic Testing: Radiology Impression Chest X-Ray 03/19/21 18:45 IMPRESSION: Interstitial densities with increasing infiltrates since the previous study. Possible mild left effusion. Electronically Signed: Camron Honeycutt DO at 21:36 EDT Tel [phone], Service support , Physical Exam Const alert Resp normal respiratory effort, no retractions, no use of accessory muscles and clear to auscultation bilaterally Cardio regular rate, regular rhythm, S1 normal heart sound and S2 normal heart sound GI normal to inspection, nondistended, normoactive bowel sounds, soft to palpation, non-tender and non-distended Extremity normal to inspection Assessment & Plan Assessment/Plan (1) Acute and chronic respiratory failure with hypoxia: PLAN: Secondary to #1 above. Treated initially with BiPAP. Improved and back on supplemental oxygen intranasally. Saturating satisfactorily. We will continue to monitor. (2) Atrial flutter with rapid ventricular response: PLAN: COPD exacerbation likely precipitating. Converted spontaneously. We will keep on telemetry and continue to monitor. Will increase dose of atenolol. (3) Hypertensive urgency: PLAN: Secondary to end-stage renal disease. Anxiety from acute respiratory illness likely contributing as well. Start on minoxidil. Monitor. (4) ESRD on dialysis: PLAN: Consult nephrology. (5) Anemia in chronic kidney disease (CKD): QUALIFIERS: Chronic kidney disease stage: on chronic dialysis Qualified Code(s): N18.6 - End stage renal disease; D63.1 - Anemia in chronic kidney disease; Z99.2 - Dependence on renal dialysis PLAN: Stable. Will monitor. (6) Chronic diastolic (congestive) heart failure: PLAN: Secondary to hypertensive heart disease. Clinically I doubt patient is in CHF exacerbation. Respiratory symptoms more likely secondary to COPD/asthma exacerbation. Cardiac asthma may be a possibility though. Meant as a #1 above. The changes in x-ray looks more like flash pulmonary edema due to hypertensive urgency. Plan is for hemodialysis on the . Charges/Coding Visit Charges Inpatient E&M: 29871 Subs Hosp L2
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
[2021-03-20] MEDS: 0.9% Saline Lock 10 ML Syringe IV (21:41)
[2021-03-21] VITALS (17 sets, daily range): BP systolic 98–122; BP diastolic 53–59; PULSE 60–76; RESP 16–18; TEMP 36.4–36.9; O2SAT 96–100
[2021-03-21] MEDS: Gabapentin 300 MG Capsule PO ×2 (05:48→20:18)
[2021-03-21] MEDS: Ipratropium/Albuterol Sulfate 3 ML AMPUL.NEB INHALATION ×4 (07:17→19:30)
--- NOTE | 2021-03-21 09:36 | PCM.PN.REN ---
Subjective Subjective complaining of edema and SOB Objective Data Objective Data Vital Signs: Vital Signs Temp Pulse Resp BP Pulse Ox 98.2 F 68 18 98/56 L 100 03/21/21 03:40 03/21/21 07:31 03/21/21 03:40 03/21/21 05:47 03/21/21 03:40 Oxygen Flow Rate (L/min) 3 Oxygen Delivery Method Nasal Cannula Weight: 79 kg Body Mass Index (BMI) 26.2 Intake & Output: Intake and Output for Last 24 Hours 03/19/21 03/20/21 03/21/21 23:59 23:59 23:59 Intake Total 620 / 620 290 / 410 240 / 240 Output Total 220 / 220 0 / 0 Balance 400 / 400 290 / 410 240 / 240 Lab / Micro Data Result Diagrams: 03/20/21 05:48 03/20/21 05:48 Micro: Microbiology 03/19/21 08:35 Nasal Secretion SARS-CoV-2 Antigen (Rapid) - Final Physical Exam Narrative Alert awake oriented x 3 no obvious distress no pallor no icterus no JVD s1s2 no murmurs lungs B/L wheezing and decreased BS abdomen soft no organomegaly +1 edema of LE no cyanosis Assessment & Plan Assessment/Plan (1) Chronic diastolic (congestive) heart failure: PLAN: compensating. has peripheral edema. On NC 3l/min which is stable UF as tolerated with HD (2) ESRD on dialysis: PLAN: Dialysis today. Will aim for 3-4 L as tolerated.Management of atrial fibrillation as per primary
[2021-03-21] MEDS: guaiFENesin 1,200 MG Tablet 1200 MG PO ×2 (10:39→20:18)
[2021-03-21] MEDS: Minoxidil 2.5 MG Tablet 5 MG PO (10:39)
[2021-03-21] MEDS: DULoxetine Hcl 30 MG Capsule PO (10:39)
[2021-03-21] MEDS: amLODIPine 10 MG Tablet PO (10:39)
[2021-03-21] MEDS: MethylPREDNISolone 125 MG/2 ML Vial 60 MG IV ×2 (10:39→20:18)
[2021-03-21] MEDS: Calcium Acetate 667 MG Capsule PO (10:39)
[2021-03-21] MEDS: Atenolol 50 MG Tablet PO (10:39)
[2021-03-21] MEDS: Furosemide 40 MG Tablet PO (10:39)
[2021-03-21] MEDS: APIXABAN 2.5 MG TABLET PO ×2 (10:40→20:18)
--- NOTE | 2021-03-21 14:50 | CHAPLAIN ---
Type of Pastoral Visit _x__ Initial Visit ___ Follow-up Visit ___ On-call Visit ___ General Patient Visit ___ Spiritual Assessment ___ Family Conference ___ Bereavement ___ Rapid Response ___ Code Blue ___ Other (describe below) Pastoral Care Referral From _x__ Patient ___ Family ___ Nurse ___ Physician ___ Materials Buyer ___ Home Lending Officer ___ Other (describe below) Sacrament/Intervention _x__ Active listening ___ Anointing ___ Sikhism ___ Bereavement ___ Communion _x__ [place]aca exploration ___ _x__ Life review _x__ Prayer ___ Reconciliation ___ Sacrament of Sick _x_ Supportive presence ___ Wedding ___ Other (describe below) Pastoral Comments
[2021-03-21 15:11] LABS: Bedside Glucose 144 mg/dL (70-110)
--- NOTE | 2021-03-21 16:01 | PCM.DC ---
Discharge Instructions Diet Discharge Diet: Renal Diet Activity Discharge Activity: Return to Normal Activity Dressing / Incision Call your doctor if you observe: Shortness of breath Follow Up Care Please Follow Up With: dialysis When: Every Sunday, Sunday, Sunday. Test Results: Test results from this visit will be discussed in further detail at your follow-up appointment, if applicable. Discharge Plan Admission Admit Date/Time: 03/19/21 13:49 Primary Reason for Your Visit: CHF. Hypertensive urgency. Attending Provider: Stiven Mo Primary Care Provider: Shar Greene Consulting Providers: Soraida Sears Instructions Patient Instructions: ED Chest Pain, Noncardiac Discharge Orders/Prescriptions Prescriptions: New atenolol 50 mg Tablet 50 mg PO DAILY Qty: 30 RF: 0 Continued hydralazine 100 MG tablet 100 mg PO TID RF: 0 duloxetine 30 MG capsule 30 mg PO DAILY RF: 0 gabapentin 100 MG capsule 300 mg PO TID RF: 0 amlodipine 10 mg Tablet 10 mg PO DAILY RF: 0 calcium acetate(phosphat bind) 667 mg Capsule 667 mg PO TID RF: 0 oxycodone 5 mg Tablet, Oral Only 5 - 10 mg PO Q6H PRN (Reason: Pain) RF: 0 sennosides [Senokot] 8.6 mg tablet 17.2 mg PO QHS PRN (Reason: Constipation) RF: 0 docusate sodium [Colace] 100 mg capsule 200 mg PO BID PRN (Reason: Constipation) RF: 0 lactulose 20 gram/30 mL solution 30 ml PO DAILY PRN (Reason: Constipation) RF: 0 mirtazapine 45 mg Tablet 45 mg PO QHS RF: 0 Eliquis 2.5 mg Tablet 2.5 mg PO BID RF: 0 albuterol sulfate 2.5 mg /3 mL (0.083 %) solution for nebulization 2.5 mg inhalation Q6H PRN (Reason: shortness of breath or wheezing) Qty: 25 RF: 0 dicyclomine 20 mg tablet 20 mg PO TID RF: 0 furosemide [Lasix] 40 mg tablet 40 mg PO DAILY Qty: 30 RF: 0 prednisone 20 mg tablet 40 mg PO DAILY 5 Days Qty: 10 RF: 0 pantoprazole 40 MG tablet 40 mg PO BID Qty: 60 RF: 0 Discontinued atenolol 25 MG tablet 25 mg PO DAILY RF: 0 Referrals / Follow Up: Shar Greene MD [Primary Care Provider] - Within 1 Week Disposition Disposition (needs filled in before D/C Order can be placed): Home, Self Care
--- NOTE | 2021-03-21 16:09 | DS.PCM_ITS ---
Providers Date of Admission: 03/19/21 Primary Care Physician: Dr. Shar Greene MD Consultations 03/19/21 15:29 Consult: Nephrology Routine Consulting Provider: Soraida Sears Reason for Consult: esrd on hd EMERGENT Consult: No MD Notified: Yes Date Notified: 03/19/21 Time Notified: 15:50 Method of Notification: Answering Service Reason For Visit: COPD AND ASTHMA EXACERBATION Diagnosis Discharge Diagnosis (1) HFrEF (heart failure with reduced ejection fraction): Status: Acute Code(s): I50.20 - Unspecified systolic (congestive) heart failure (2) ESRD on dialysis: Status: Acute Code(s): N18.6 - End stage renal disease; Z99.2 - Dependence on renal dialysis (3) Atrial flutter with rapid ventricular response: Status: Acute Code(s): I48.92 - Unspecified atrial flutter Medications at Discharge Home Medications duloxetine 30 mg PO DAILY 03/31/20 hydralazine 100 mg PO TID 03/31/20 gabapentin 300 mg PO TID 10/08/20 amlodipine 10 mg PO DAILY 11/30/20 calcium acetate(phosphat bind) 667 mg PO TID 11/30/20 oxycodone 5 - 10 mg PO Q6H PRN 11/30/20 docusate sodium [Colace] 200 mg PO BID PRN 12/02/20 lactulose 30 ml PO DAILY PRN 12/02/20 sennosides [Senokot] 17.2 mg PO QHS PRN 12/02/20 Eliquis 2.5 mg PO BID 01/08/21 albuterol sulfate 2.5 mg INHALATION Q6H PRN #25 vial 01/08/21 mirtazapine 45 mg PO QHS 01/08/21 dicyclomine 20 mg PO TID 02/26/21 furosemide [Lasix] 40 mg PO DAILY #30 tab 03/12/21 pantoprazole 40 mg PO BID #60 tab 03/12/21 prednisone 40 mg PO DAILY 5 Days #10 tab 03/12/21 atenolol 50 mg PO DAILY #30 tab 03/21/21 Hospital Course Operations None Procedures Dialysis Summary of Care Provided Minutes Spent on Discharge: 35 Hospital Course: This is a 71-year-old female presents with shortness of breath. Patient was found to be in A. fib with RVR. Patient was placed on BiPAP and converted into normal sinus rhythm. Patient also was profoundly hypertensive with a blood pressure of 219/90. Patient with her A. fib with RVR her atenolol was increased to 25-50 and was also started on minoxidil. Subsequently, patient's blood pressure has steadily improved and most recent was 07/13/1944 w andrewe she was on dialysis. The minoxidil will be discontinued. Patient will continue with the increased dose of atenolol at 50 mg. Patient is already anticoagulated on apixaban. Patient diagnosed with COPD exacerbation but I feel most of her issues related with pulmonary vascular congestion. Patient likely had flash pulmonary edema due to the hypertensive urgency in atrial fibrillation with RVR that contributed to her respiratory distress. Subsequently patient has been doing well. Patient will have an amatory pulse ox prior to discharge. Physical Exam Const alert Resp normal respiratory effort, no retractions, no use of accessory muscles and clear to auscultation bilaterally Cardio regular rate, regular rhythm, S1 normal heart sound and S2 normal heart sound GI normal to inspection, nondistended, normoactive bowel sounds, soft to palpation, non-tender and non-distended Weight / BMI Weight Weight: 79 kg Body Mass Index (BMI) 26.2 ABG / Lab / Microbiology Data Result Diagrams: 03/20/21 05:48 03/20/21 05:48 Laboratory: Laboratory Results - last 24 hr 03/21/21 15:06: POC Glucose 144 H Microbiology: Microbiology 03/19/21 08:35 Nasal Secretion SARS-CoV-2 Antigen (Rapid) - Final D/C Instructions Discharge Diet: Renal Diet Call your doctor if you observe: Shortness of breath Please Follow Up With: dialysis When: Every Sunday, Sunday, Sunday. Meaningful Use Info Meaningful Use Diagnoses (Choose all that apply): CHF CHF NATALIA/ARB ordered at discharge?: No Reason NATALIA/ARB not ordered?: Worsening renal disease Documented LVEF (%): 40 Discharge Plan Admission Admit Date/Time: 03/19/21 13:49 Primary Reason for Your Visit: CHF. Hypertensive urgency. Afib with RVR. Attending Provider: Stiven Mo Primary Care Provider: Shar Greene Consulting Providers: Soraida Sears Instructions Patient Instructions: ED Chest Pain, Noncardiac Discharge Orders/Prescriptions Prescriptions: New atenolol 50 mg Tablet 50 mg PO DAILY Qty: 30 RF: 0 Continued hydralazine 100 MG tablet 100 mg PO TID RF: 0 duloxetine 30 MG capsule 30 mg PO DAILY RF: 0 gabapentin 100 MG capsule 300 mg PO TID RF: 0 amlodipine 10 mg Tablet 10 mg PO DAILY RF: 0 calcium acetate(phosphat bind) 667 mg Capsule 667 mg PO TID RF: 0 oxycodone 5 mg Tablet, Oral Only 5 - 10 mg PO Q6H PRN (Reason: Pain) RF: 0 sennosides [Senokot] 8.6 mg tablet 17.2 mg PO QHS PRN (Reason: Constipation) RF: 0 docusate sodium [Colace] 100 mg capsule 200 mg PO BID PRN (Reason: Constipation) RF: 0 lactulose 20 gram/30 mL solution 30 ml PO DAILY PRN (Reason: Constipation) RF: 0 mirtazapine 45 mg Tablet 45 mg PO QHS RF: 0 Eliquis 2.5 mg Tablet 2.5 mg PO BID RF: 0 albuterol sulfate 2.5 mg /3 mL (0.083 %) solution for nebulization 2.5 mg inhalation Q6H PRN (Reason: shortness of breath or wheezing) Qty: 25 RF: 0 dicyclomine 20 mg tablet 20 mg PO TID RF: 0 furosemide [Lasix] 40 mg tablet 40 mg PO DAILY Qty: 30 RF: 0 prednisone 20 mg tablet 40 mg PO DAILY 5 Days Qty: 10 RF: 0 pantoprazole 40 MG tablet 40 mg PO BID Qty: 60 RF: 0 Discontinued atenolol 25 MG tablet 25 mg PO DAILY RF: 0 Referrals / Follow Up: Shar Greene MD [Primary Care Provider] - Within 1 Week Disposition Disposition (needs filled in before D/C Order can be placed): Home, Self Care Charges/Coding Visit Charges Inpatient E&M: 16104 Disch Hosp
[2021-03-21] MEDS: Calcium Carbonate 500 MG Tablet PO (18:29)
--- NOTE | 2021-03-21 18:34 | NURSING ---
Pt needed to be increased from 3L-6L w/ ambulation d/t SPO2 in upper 80s. Tachycardic and tachypneic with this.
[2021-03-21] MEDS: Docusate Sodium 100 MG Capsule 200 MG PO (20:10)
[2021-03-21] MEDS: oxyCODONE 5 MG Tablet PO (20:10)
[2021-03-21] MEDS: hydrALAZINE 50 MG Tablet 100 MG PO (20:18)
--- NOTE | 2021-03-21 20:19 | NURSING ---
RNs cannot log into computers in room. All meds and pt verified with Genet PAREDES.
[2021-03-22] VITALS (13 sets, daily range): BP systolic 118–128; BP diastolic 55–63; PULSE 60–69; RESP 14–20; TEMP 36.3–36.7; O2SAT 87–100
[2021-03-22] MEDS: hydrALAZINE 50 MG Tablet 100 MG PO ×2 (04:18→14:52)
[2021-03-22] MEDS: Gabapentin 300 MG Capsule PO ×2 (04:18→14:52)
[2021-03-22] MEDS: oxyCODONE 5 MG Tablet PO (04:19)
[2021-03-22] MEDS: Ipratropium/Albuterol Sulfate 3 ML AMPUL.NEB INHALATION ×3 (06:37→15:53)
--- NOTE | 2021-03-22 09:55 | PCM.PN.REN ---
Subjective Subjective Patient states she still shortness of breath but better. Nasal cannula 2 L No nausea no vomiting Objective Data Objective Data Vital Signs: Vital Signs Temp Pulse Resp BP Pulse Ox 98.0 F 60 20 H 118/63 100 03/22/21 03:25 03/22/21 07:03 03/22/21 06:37 03/22/21 04:18 03/22/21 06:37 Oxygen Flow Rate (L/min) 2 Oxygen Delivery Method Nasal Cannula Weight: 78.4 kg Body Mass Index (BMI) 26.2 Intake & Output: Intake and Output for Last 24 Hours 03/20/21 03/21/21 03/22/21 23:59 23:59 23:59 Intake Total 290 / 410 240 / 240 Output Total 0 / 0 200 / 200 Balance 290 / 410 40 / 40 Lab / Micro Data Result Diagrams: 03/20/21 05:48 03/20/21 05:48 Labs: Laboratory Results - last 24 hr 03/21/21 15:06: POC Glucose 144 H Micro: Microbiology 03/19/21 08:35 Nasal Secretion SARS-CoV-2 Antigen (Rapid) - Final Physical Exam Narrative Patient is awake alert oriented. Neck no JVD. Heart S1-S2 RRR. Chest bilateral rhonchi wheezing. Extremity +1 edema. Abdomen soft positive bowel sounds no tenderness. Neurology awake alert oriented no focals Assessment & Plan Assessment/Plan (1) Chronic diastolic (congestive) heart failure: PLAN: compensating. has peripheral edema. On NC 2l/min which is stable Patient had 2 L ultrafiltration yesterday. Will attempt to isolated 2 L ultrafiltration session today (2) ESRD on dialysis: PLAN: Sunday hemodialysis schedule. Last hemodialysis done yesterday. Will aim for 2l L as tolerated day .Management of atrial fibrillation as per primary
--- NOTE | 2021-03-22 10:43 | CASEMGMT ---
Addendum entered by Rashmi Madsen 03/22/21 11:53: Pt does not qualify for increased home oxygen. Pt is ready for discharge. Leonides PAREDES CM Addendum entered by Rashmi Madsen 03/22/21 10:47: Attempted to reach daughter, Salima, to update on all but her phone goes to non-descript voicemail, so message not left at this time. Leonides PAREDES CM Original Note: During last visit, pt set up with home oxygen thru [employer] 2L at rest and 4L w/ exertion. Pt to be tested on this prior to discharge and Darron PAREDES aware. Pt is still active with [facility] and [facility] order faxed with clinicals. [facility] aware of discharge and [facility]. Pt voices no further questions/concerns/needs. CM to follow for increased home oxygen need. Leonides PAREDES CM
[2021-03-22] MEDS: Furosemide 40 MG Tablet PO (11:29)
[2021-03-22] MEDS: DULoxetine Hcl 30 MG Capsule PO (11:29)
[2021-03-22] MEDS: Calcium Acetate 667 MG Capsule PO (11:29)
[2021-03-22] MEDS: APIXABAN 2.5 MG TABLET PO (11:29)
[2021-03-22] MEDS: guaiFENesin 1,200 MG Tablet 1200 MG PO (11:30)
[2021-03-22] MEDS: MethylPREDNISolone 125 MG/2 ML Vial 60 MG IV (11:30)
[2021-03-22] MEDS: amLODIPine 10 MG Tablet PO (11:30)
[2021-03-22] MEDS: Minoxidil 2.5 MG Tablet 5 MG PO (11:30)
[2021-03-22] MEDS: Atenolol 50 MG Tablet PO (11:31)
[2021-03-22] MEDS: 0.9% Saline Lock 10 ML Syringe IV (11:33)
--- NOTE | 2021-03-22 13:31 | CASEMGMT ---
Addendum entered by Rashmi Madsen 03/22/21 15:07: Soy, PCU charge, spoke with Dr. Daniel and he is fine with UF prior to HD tomorrow. Dr. Mo updated, voices understanding and call to Marcos at [facility] to update, voices understanding. This RN CM to room and pt/daughter are updated on all, voice understanding. Pt/daughter voice no further questions/concerns/needs. Leonides PAREDES CM Original Note: Per Dr. Daniel, pt needs UF prior to discharge home today. Pt is normally on HD MWF at 1000 so today is not her normal for dialysis. Per Soy, primer charger, she received call from dialysis nurse and they will be on way to dialyze another pt first who is emergent. Call to Marcos at [facility] to see if there would be anyway that pt could have the UF today at the OP center. Per Marcos, pt would have to be there by 1400 and there is not any way that pt could get her ride, oxygen and be discharged to get to OP center by 1400. Per Marcos, he could run UF tomorrow am prior to her normal dialysis. Dr. Daniel paged regarding same. CM to follow. Leonides PAREDES CM
--- NOTE | 2021-03-22 15:35 | PCM.PN.HOSP ---
Subjective Subjective Discharge held up as patient was requiring increased oxygenation yesterday. Today seems to be doing well. Objective Data Objective Data Vital Signs: Vital Signs Temp Pulse Resp BP Pulse Ox 36.3 C L 66 18 128/58 H 100 03/22/21 15:21 03/22/21 15:21 03/22/21 15:21 03/22/21 15:21 03/22/21 15:21 Oxygen Flow Rate (L/min) [ 4 AMBULATING with Oxygen #1] Oxygen Flow Rate (L/min) [At 2 REST with Oxygen] Oxygen Flow Rate (L/min) 2 Oxygen Delivery Method Nasal Cannula Weight: 78.4 kg Body Mass Index (BMI) 26.2 Intake & Output: Intake and Output for Last 24 Hours 03/20/21 03/21/21 03/22/21 23:59 23:59 23:59 Intake Total 290 / 410 240 / 240 240 / 240 Output Total 0 / 0 200 / 200 Balance 290 / 410 40 / 40 240 / 240 Lab / Micro Data Result Diagrams: 03/20/21 05:48 03/20/21 05:48 Micro: Microbiology 03/19/21 08:35 Nasal Secretion SARS-CoV-2 Antigen (Rapid) - Final Physical Exam Const alert Resp normal respiratory effort and no retractions Resp Narrative: Bilateral wheezes Cardio regular rate, regular rhythm, S1 normal heart sound and S2 normal heart sound GI normal to inspection, nondistended, normoactive bowel sounds, soft to palpation, non-tender and non-distended Extremity General Extremity: edema Assessment & Plan Assessment/Plan (1) HFrEF (heart failure with reduced ejection fraction): (2) ESRD on dialysis: (3) Atrial flutter with rapid ventricular response: PLAN: 1. Acute on chronic hypoxic respiratory failure Likely secondary to volume overload Improved Discussed with case management patient does have oxygen at home I do not feel the patient had a acute exacerbation of COPD. Feel the wheezing can be explained by the patient's pulmonary vascular congestion. 2. Acute heart failure reduced ejection fraction Complicated by end-stage renal disease Clarification from my note says clinically doubt CHF exacerbation that should be COPD exacerbation. EF 40% from 2D echocardiogram from 10/09/2020. 3. End-stage renal disease Discussed with Dr. Daniel, plan is for the patient get ultrafiltration. Case management discussed with him and the plan is for ultrafiltration before her hemodialysis the . 4. Hypertensive urgency Improved 5. Atrial fibrillation with RVR Currently rate controlled Continue with anticoagulation with apixaban. Charges/Coding Visit Charges Inpatient E&M: 85684 Disch Hosp
--- NOTE | 2021-03-24 13:19 | CASEMGMT ---
RN MITA Discharge Follow-up Phone Call: ALEJANDRA: Candace Strata: 4 Call Date: 03/24/21 Discharge Date: 03/22/21 Time of Call: [id number] Admitting Diagnosis: CHF, Afib This RN CM attempted to contact pt via phone for discharge follow-up. Message was received stating pt was not accepting phone calls at this time. Yovanny Shankar RN CM
== END 2021-03-22 16:35 | disposition home or self-care (01) | DRG 291 ==
LOC: ED 13:43 → PCU 03-20 06:55
PROVIDERS: Admitting Provider Internal Medicine; Emergency Provider Emergency Medicine; PCP Family Medicine
DX: I13.2 Hypertensive heart and chronic kidney disease with heart failure and with stage 5 chronic kidney disease, or end stage renal disease (principal); Z99.2 Dependence on renal dialysis; J44.9 Chronic obstructive pulmonary disease, unspecified; I50.21 Acute systolic (congestive) heart failure; E11.22 Type 2 diabetes mellitus with diabetic chronic kidney disease; N18.6 End stage renal disease; J96.21 Acute and chronic respiratory failure with hypoxia; I48.92 Unspecified atrial flutter; I48.91 Unspecified atrial fibrillation; D63.1 Anemia in chronic kidney disease; E78.00 Pure hypercholesterolemia, unspecified; I16.0 Hypertensive urgency; K21.9 Gastro-esophageal reflux disease without esophagitis; F17.210 Nicotine dependence, cigarettes, uncomplicated; I25.2 Old myocardial infarction; Z20.822 Contact with and (suspected) exposure to COVID-19; Z99.81 Dependence on supplemental oxygen; Z79.01 Long term (current) use of anticoagulants; Z79.899 Other long term (current) drug therapy; Z86.718 Personal history of other venous thrombosis and embolism
CPT/HCPCS: 36415; 71045; 80048; 82962; 83880; 84484; 85025; 87426; 90937; 93005; 94002; 94640; 96374; 96375; 96376; 99218; 99251; 99285; 99406; J7030; A4216; G0257; G0378; G0463; J1940

== ENCOUNTER 2021-04-19 21:13 | Inpatient (IN) | payer MEDICARE, MEDICAID, SELFPAY ==
[2021-04-19 21:15] VITALS: BP 161/75; PULSE 60; RESP 14; TEMP 36.4; O2SAT 100; BMI 19.9
[2021-04-20] VITALS (20 sets, daily range): BP systolic 115–184; BP diastolic 62–91; PULSE 43–78; RESP 14–18; TEMP 2.7–37.4; O2SAT 95–987; BMI 20.5
--- NOTE | 2021-04-20 00:05 | CT_ITS ---
STUDY: CT ABDOMEN AND PELVIS WITHOUT CONTRAST REASON FOR EXAM: Female, 71 years old. Right lower quadrant pain, history of uterine cancer with hysterectomy RADIATION DOSAGE (If Supplied By Facility): CTDIvol = ( 10.62 ) mGy, DLP = ( 520.11 ) mGycm TECHNIQUE: Transaxial images were obtained from the dome of the diaphragm to the symphysis pubis without oral contrast, and without intravenous contrast. Sagittal and coronal images were reconstructed. Individualized dose optimization techniques were used for this CT. COMPARISON: 11/30/2020 FINDINGS: Small bilateral pleural effusions. The visualized portions of the heart are within normal limits. Unchanged 6 x 1 cm anterior right liver cyst. There are surgical clips in the gallbladder fossa consistent with a prior cholecystectomy. Normal spleen. Normal pancreas. Normal bilateral adrenal glands. Normal right kidney. Normal left kidney. Normal visualized stomach. Normal small intestine. Normal colon. There is a tubular, thick-walled appendix (>7mm) with surrounding inflammatory change, consistent with acute appendicitis. Normal abdominal aorta. There is an IVC filter in place. Normal retroperitoneum. Bilateral hip replacements complicate evaluation of the pelvis Normal urinary bladder. There is absence of the uterus consistent with a prior hysterectomy. Normal abdominal wall. There are diffuse degenerative changes of the visualized lumbar spine. CT/Abdomen/Pelvis without Cont IMPRESSION: Acute uncomplicated appendicitis. Electronically Signed: Nehemiah Suarez MD at 2:49 EDT Tel , Service support ,
[2021-04-20 00:12] LABS: Absolute Lymphocyte Count 2.36 X10^3/uL (0.83-4.51); Absolute Neutrophil Count 6.6 X10^3/uL (2.0-7.7); Basophil# 0.05 X10^3/uL; Basophil% 0.5 % (0-1); Eosinophil# 0.19 X10^3/uL; Eosinophils% 1.9 % (0-5); Hematocrit 41.1 % (37-47); Hemoglobin 12.8 g/dL (12.0-15.0); Lymphocyte # 2.36 X10^3/ul (0.83-4.51); Lymphocyte % 23.4 % (19-41); Mean Corp Hgb Conc 31.1 g/dL (32-36); Mean Corpuscular Hgb 26.1 pg (27.0-32.0); Mean Corpuscular Volume 83.7 fL (81-99); Mean Platelet Vol. 9.6 fl (6.2-12.0); Monocyte# 0.85 X10^3/uL; Monocyte% 8.4 % (0-10); NRBC Flagged by Analyzer 0 % (0-5); Neutrophil # 6.57 X10^3/uL (2.7-7.7); Neutrophil % 65.3 % (47-70); POSITIVE MORPHOLOGY YES; Platelet Count 232 K/mm3 (150-450); RBC Distribution Width SD 66.5 fl (35.1-43.9); Red Blood Count 4.91 M/mm3 (4.2-5.4); White Blood Count 10.1 K/mm3 (4.4-11.0)
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
[2021-04-20 00:14] LABS: Differential Indicated SCAN CRITERIA MET
[2021-04-20] MEDS: Morphine 4 MG/ML Syringe IV ×2 (00:33→05:52)
[2021-04-20] MEDS: Ondansetron 4 MG/2 ML Vial IV (00:33)
[2021-04-20 00:41] LABS: Anisocytosis 3+
[2021-04-20 00:42] LABS: Tear Drop Cell RARE
[2021-04-20 01:16] LABS: Anion Gap 9 (5-15); BUN 34 mg/dL (7-18); BUN/Creat Ratio 4.4 RATIO (10-20); Calcium,Total 9.8 mg/dL (8.5-10.1); Chloride 98 mmol/L (98-107); Creatinine, Serum 7.66 mg/dL (0.55-1.02); EST Glomerular Filtration Rate 6 mL/min (>60); Est Glom Filt Rate - Afr Amer 7 mL/min (>60); Glucose 96 mg/dL (74-106); Potassium 3.6 mmol/L (3.5-5.1); Sodium Level 138 mmol/L (136-145)
--- NOTE | 2021-04-20 01:17 | ED.RN ---
LAB CALLED WITH CRITICAL LEVEL, PT'S CREATININE 7.66. PRIMARY NURSE KATHRYN UMANZOR INFORMED
[2021-04-20 01:27] LABS: AST(SGOT) 19 U/L (15-37); Alanine Aminotransfer ALT/SGPT 16 U/L (13-56); Albumin, Serum 2.4 g/dL (3.2-5.0); Alkaline Phosphatase 101 U/L (45-117); Bilirubin, Direct 0.14 mg/dL (0.00-0.30); Globulin 4.9 g/dL (2.2-4.2); Lipase 42 U/L (73-393); Protein, Total 7.3 g/dL (6.4-8.2)
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
[2021-04-20 05:39] LABS: Absolute Lymphocyte Count 2.27 X10^3/uL (0.83-4.51); Absolute Neutrophil Count 5.6 X10^3/uL (2.0-7.7); Basophil# 0.05 X10^3/uL; Basophil% 0.6 % (0-1); Eosinophil# 0.22 X10^3/uL; Eosinophils% 2.4 % (0-5); Hematocrit 37.8 % (37-47); Hemoglobin 11.2 g/dL (12.0-15.0); Lymphocyte # 2.27 X10^3/ul (0.83-4.51); Lymphocyte % 25.2 % (19-41); Mean Corp Hgb Conc 29.6 g/dL (32-36); Mean Corpuscular Hgb 26.2 pg (27.0-32.0); Mean Corpuscular Volume 88.5 fL (81-99); Mean Platelet Vol. 8.8 fl (6.2-12.0); Monocyte# 0.85 X10^3/uL; Monocyte% 9.4 % (0-10); NRBC Flagged by Analyzer 0 % (0-5); Neutrophil # 5.59 X10^3/uL (2.7-7.7); Neutrophil % 62.1 % (47-70); Platelet Count 208 K/mm3 (150-450); RBC Distribution Width CV 17.2 % (11.6-14.6); RBC Distribution Width SD 55.8 fl (35.1-43.9); Red Blood Count 4.27 M/mm3 (4.2-5.4)
[2021-04-20 06:00] LABS: ALB/GLOB Ratio 0.5 RATIO (0.9-2.4); AST(SGOT) 15 U/L (15-37); Alanine Aminotransfer ALT/SGPT 16 U/L (13-56); Albumin, Serum 2.4 g/dL (3.2-5.0); Alkaline Phosphatase 94 U/L (45-117); Anion Gap 8 (5-15); BUN 35 mg/dL (7-18); BUN/Creat Ratio 4.5 RATIO (10-20); Calcium,Total 9.8 mg/dL (8.5-10.1); Chloride 98 mmol/L (98-107); Creatinine, Serum 7.81 mg/dL (0.55-1.02); EST Glomerular Filtration Rate 5 mL/min (>60); Est Glom Filt Rate - Afr Amer 7 mL/min (>60); Estimated Creatinine Clearance 6.57 ml/min; Globulin 4.6 g/dL (2.2-4.2); Glucose 87 mg/dL (74-106); Magnesium 2.3 mg/dL (1.6-2.6); Phosphorus 5.2 mg/dL (2.5-4.9); Potassium 3.6 mmol/L (3.5-5.1); Sodium Level 138 mmol/L (136-145)
[2021-04-20 06:16] LABS: Differential Indicated SCAN CRITERIA MET
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
--- NOTE | 2021-04-20 06:56 | PCM.HOSP.N ---
Hospitalist Note Patient is a 71-year-old lady with multiple comorbidities including paroxysmal atrial fibrillation on Eliquis, end-stage renal disease on hemodialysis diabetes mellitus type 2, essential hypertension dyslipidemia osteoarthritis chronic hypoxic respiratory failure secondary to COPD/asthma on home oxygen who presented with abdominal pain. Imaging studies obtained on admission was consistent with acute uncomplicated appendicitis. Patient has been admitted to the surgical service. Plan is for patient to undergo surgical intervention after Eliquis has been held for a day Patient seen and examined her initial assessment including history and physical, consultation notes, diagnostic data and management orders reviewed will follow.
[2021-04-20] MEDS: oxyCODONE 5 MG Tablet PO ×2 (09:09→15:08)
[2021-04-20] MEDS: Acetaminophen 325 MG Tablet 650 MG PO ×2 (09:09→15:08)
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
[2021-04-20 11:11] LABS: Bedside Glucose 130 mg/dL (70-110)
[2021-04-20] MEDS: Calcitriol 0.25 MCG Capsule 1.5 MCG PO (12:06)
[2021-04-20] MEDS: Ipratropium/Albuterol Sulfate 3 ML AMPUL.NEB INHALATION ×2 (14:33→18:44)
--- NOTE | 2021-04-20 14:39 | PCM.HOSP.N ---
Hospitalist Note Patient was noted to be bradycardic during dialysis with heart rate dropping as low as 43. Patient is on atenolol 50 mg daily this was held. Case discussed with general surgery Dr. Ruiz. Patient will be transferred to PCU for continuous telemetry monitoring. Also ordered TSH as well as 2D echo with subsequent management decision to be based on above
--- NOTE | 2021-04-20 14:44 | DIALYSIS ---
HD x 3.5 hours complete. Fluid- positive 200ml post tx. Used right chest wall dialysis catheter. Lumens closed with heparin per fill volume. Caps placed. Dressing is dry and intact. See tx sheet for more details. Report was given to REGGIE Mac.
[2021-04-20] MEDS: Pantoprazole Sodium 40 MG Tablet PO ×2 (15:01→22:01)
[2021-04-20] MEDS: amLODIPine 10 MG Tablet PO (15:01)
[2021-04-20] MEDS: Furosemide 40 MG Tablet PO (15:01)
[2021-04-20] MEDS: hydrALAZINE 50 MG Tablet 100 MG PO ×2 (15:01→22:00)
[2021-04-20] MEDS: DULoxetine Hcl 30 MG Capsule PO (15:01)
[2021-04-20] MEDS: Heparin 10,000 UNITS/10 ML Vial IV (15:02)
[2021-04-20] MEDS: Gabapentin 300 MG Capsule PO ×2 (15:03→22:01)
[2021-04-20] MEDS: Calcium Acetate 667 MG Capsule PO ×2 (15:03→22:01)
--- NOTE | 2021-04-20 16:08 | ECHOD_ITS ---
Reason For Study: ARRHYTHMIA Procedure This was a 2D Doppler, Color Flow transthoracic echocardiogram. Exam performed portable in patient room. Left Ventricle Normal LV size. The estimated ejection fraction is 55 %. Diastolic function is indeterminate. No regional wall motion abnormalities noted. Right Ventricle Normal RV size. Normal systolic function. Atria The left atrium is mildly enlarged. Normal right atrium. No doppler evidence for ASD. Mitral Valve There is no mitral valve stenosis. No mitral valve insufficiency. Tricuspid Valve There is no tricuspid stenosis. Trivial tricuspid valve insufficiency. Unable to estimate RV systolic pressure due to insufficient tricuspid regurgitant envelope. Aortic Valve Trisinus/trileaflet aortic valve. There is no aortic stenosis. No aortic valve insufficiency. Pulmonic Valve There is no pulmonic valvular stenosis. No pulmonic valve insufficiency. Great Vessels Normal aortic root. Pericardium/Pleural No pericardial effusion. MMode/2D Measurements & Calculations LVIDd: 5.7 cm IVSd: 0.90 cm LVOT diam: 2.0 cm LVIDs: 3.9 cm LVPWd: 1.0 cm LVOT area: 3.0 cm2 FS: 32.5 % Ao root diam: 3.0 cm LAV(MOD-bp): 69.6 ml LA A4 area: 22.7 cm2 LA dimension: 4.2 cm LAV(MOD-bp) Indexed: 38.8 ml/m2 LAV(MOD-sp2): 66.6 ml LAV(MOD-sp4): 66.9 ml RA A4 area: 15.3 cm2 Time Measurements MV dec time: 0.25 sec Doppler Measurements & Calculations MV E max reg: 78.1 cm/sec Lat Peak E' Reg: 8.5 cm/sec Med Peak E' Reg: 5.4 cm/sec MV A max reg: 94.9 cm/sec E/E' lat: 9.2 E/E' med: 14.4 MV E/A: 0.82 Ao V2 max: 202.1 cm/sec LV V1 max: 131.6 cm/sec SV(LVOT): 82.4 ml Ao max P.3 mmHg LV V1 max P.9 mmHg Ao V2 mean: 123.6 cm/sec LV V1 mean P.5 mmHg Ao mean P.3 mmHg LV V1 mean: 89.8 cm/sec Ao V2 VTI: 36.1 cm LV V1 VTI: 27.1 cm AVTAR(I,D): 2.3 cm2 AVTAR(V,D): 2.0 cm2 PA V2 max: 107.6 cm/sec ECHO/Echo Complete Interpretation Summary The estimated ejection fraction is 55 %. Diastolic function is indeterminate. The left atrium is mildly enlarged. Ordering Physician: Brian Kinney Referring Physician: Shar Greene Performed By: Arleth Rivas, ACROLINE, RVT
[2021-04-20 17:05] LABS: Bedside Glucose 157 mg/dL (70-110)
[2021-04-20] MEDS: Insulin Lispro 100 UNIT/ML INSULN.PEN SC (17:09)
--- NOTE | 2021-04-20 17:55 | RAD_ITS ---
EXAM: XR Chest, 1 View CLINICAL INDICATION: 71 years old, Female; pre-op, hx of copd/chf -- currently receiving dialysis TECHNIQUE: Frontal view of the chest. This report was created using [employer] report [employer] technology. COMPARISON: Chest x-ray dated 03/19/2021. FINDINGS: Lungs and pleural spaces: Blunting of the left costophrenic angle may be due to a small amount of fluid or pleural thickening. No pneumothorax. Heart: Unremarkable. Cardiac silhouette not enlarged. Mediastinum: Central airways and mediastinal contour are unremarkable. Bones/joints: Unremarkable. Soft tissues: Unremarkable. Tubes, lines and devices: Right internal jugular central venous catheter tip in the low superior vena cava. RAD/Chest 1 View (Portable) IMPRESSION: No acute findings in the chest. Electronically Signed: Po Rodriguez MD at 2:03 EDT Tel , Service support ,
[2021-04-20 18:14] LABS: Thyroid Stim Hormone (TSH) 4.78 uIU/mL (0.358-3.74)
--- NOTE | 2021-04-20 20:43 | PCS.PANDOC ---
PANDEMIC DOCUMENTATION INITIATED: Date: 02/14/2021 Time: 190
[2021-04-20 22:00] LABS: Bedside Glucose 107 mg/dL (70-110)
[2021-04-20] MEDS: Mirtazapine 15 MG Tablet 45 MG PO (22:01)
[2021-04-21] VITALS (25 sets, daily range): BP systolic 104–186; BP diastolic 48–91; PULSE 48–91; RESP 14–18; TEMP 36.4–37.1; O2SAT 92–100; BMI 20.5; BMI 21.2
[2021-04-21] MEDS: hydrALAZINE 20 MG/ML Vial 10 MG IV (04:03)
[2021-04-21] MEDS: HYDROmorphone 0.5 MG/0.5 ML SYRINGE IV ×4 (04:03→21:49)
--- NOTE | 2021-04-21 05:01 | NURSING ---
This RN attempted once to place an 20G peripheral IV access, unsuccessful. rosalba Curtis currently has a 22G peripheral IV access. Will pass this along dayshift nurse.
--- NOTE | 2021-04-21 05:40 | NURSING ---
Pt earrings and bracelets placed in a green cup. Pt instructed this RN to place the cup inside pt's blue bag at bedside.
--- NOTE | 2021-04-21 05:55 | EKG12_ITS ---
Test Reason : AM EKG Blood Pressure : / mmHG Vent. Rate : 052 BPM Atrial Rate : 052 BPM P-R Int : 200 ms QRS Dur : 084 ms QT Int : 478 ms P-R-T Axes : -10 -16 085 degrees QTc Int : 444 ms Sinus bradycardia T wave abnormality, consider lateral ischemia Abnormal ECG When compared with ECG of 19-MAR-2021 14:55, Premature atrial complexes are no longer Present Vent. rate has decreased BY 32 BPM T wave inversion now evident in Lateral leads Confirmed by BAHMAN LEMON, EDWINA ([id number]), order editor BIRDIE TORRES ([id number]) on 04/21/2021 2:00:59 P M Referred By: OLIVE Confirmed By:SUAD RUGGIERO MD
[2021-04-21 06:00] LABS: Bedside Glucose 75 mg/dL (70-110)
[2021-04-21] MEDS: oxyCODONE 5 MG Tablet PO (06:27)
[2021-04-21] MEDS: hydrALAZINE 50 MG Tablet 100 MG PO ×2 (06:28→22:34)
[2021-04-21] MEDS: Calcium Acetate 667 MG Capsule PO ×2 (06:28→22:34)
[2021-04-21] MEDS: Gabapentin 300 MG Capsule PO ×2 (06:28→22:35)
[2021-04-21 06:47] LABS: Anion Gap 6 (5-15); BUN 18 mg/dL (7-18); BUN/Creat Ratio 3.5 RATIO (10-20); Calcium,Total 9.4 mg/dL (8.5-10.1); Chloride 100 mmol/L (98-107); Creatinine, Serum 5.16 mg/dL (0.55-1.02); EST Glomerular Filtration Rate 9 mL/min (>60); Est Glom Filt Rate - Afr Amer 11 mL/min (>60); Estimated Creatinine Clearance 10.56 ml/min; Glucose 81 mg/dL (74-106); Potassium 3.9 mmol/L (3.5-5.1); Sodium Level 135 mmol/L (136-145)
[2021-04-21] MEDS: Ipratropium/Albuterol Sulfate 3 ML AMPUL.NEB INHALATION ×2 (06:49→18:57)
[2021-04-21 06:57] LABS: Magnesium 2.2 mg/dL (1.6-2.6)
[2021-04-21 06:58] LABS: Prothrombin Time (Protime)PT. 12.8 SECONDS (11.7-14.9)
[2021-04-21] MEDS: Pantoprazole Sodium 40 MG Tablet PO ×2 (09:06→22:34)
[2021-04-21] MEDS: DULoxetine Hcl 30 MG Capsule PO (09:06)
[2021-04-21] MEDS: Furosemide 40 MG Tablet PO (09:06)
[2021-04-21] MEDS: amLODIPine 10 MG Tablet PO (09:08)
[2021-04-21] MEDS: 0.9% Saline Lock 10 ML Syringe IV ×3 (09:11→21:49)
--- NOTE | 2021-04-21 10:25 | PCM.PN.SRG ---
Subjective Subjective Patient seen and examined during AM rounds. Reports an uneventful overnight course. She continues to have right-sided abdominal pain when she moves about. She confirms that she has been n.p.o. since midnight. She states that she just completed a echo prior to my arrival to her room. Nursing updates me that only a portion of the patient's labs were able to be collected due to difficult venous access despite multiple attempts. Objective Data Objective Data Vital Signs: Vital Signs Temp Pulse Resp BP Pulse Ox 98.1 F 58 L 18 116/58 L 98 04/21/21 09:02 04/21/21 09:02 04/21/21 09:02 04/21/21 09:02 04/21/21 09:02 Oxygen Flow Rate (L/min) 3 Oxygen Delivery Method Nasal Cannula Weight: 143 lb 4.807 oz Body Mass Index (BMI) 20.5 Intake & Output: Intake and Output for Last 24 Hours 04/19/21 04/20/21 04/21/21 23:59 23:59 23:59 Intake Total 530 / 530 Balance 530 / 530 Lab / Micro Data Result Diagrams: 04/20/21 05:32 04/21/21 06:15 Labs: Laboratory Results - last 24 hr 04/20/21 05:32: TSH 4.78 H 04/20/21 10:58: POC Glucose 130 H 04/20/21 17:00: POC Glucose 157 H 04/20/21 21:51: POC Glucose 107 04/21/21 05:58: POC Glucose 75 04/21/21 06:15: Phosphorus 5.0 H, Magnesium 2.2 04/21/21 06:15: PT 12.8, INR 1.0, APTT 31.0 04/21/21 06:15: Sodium 135 L, Potassium 3.9, Chloride 100, Carbon Dioxide 29.0, Anion Gap 6, BUN 18, Creatinine 5.16 H, Estim Creat Clear Calc 10.56, Est GFR (MDRD) Af Amer 11 L, Est GFR (MDRD) Non-Af 9 L, BUN/Creatinine Ratio 3.5 L, Glucose 81, Calcium 9.4 Micro: Microbiology 04/20/21 13:51 Nasal Secretion SARS-CoV-2 Antigen (Rapid) - Final Radiography Diagnostic Testing: Radiology Impression Chest X-Ray 04/20/21 17:55 IMPRESSION: No acute findings in the chest. Electronically Signed: Po Rodriguez MD at 2:03 EDT Tel , Service support , Physical Exam Const oriented x3 and no apparent distress Resp normal respiratory effort GI GI Narrative: Nondistended, numerous port site scars and midline laparotomy scar. Soft, tender in the right lower quadrant, focally Assessment & Plan Assessment/Plan (1) Acute appendicitis: QUALIFIERS: Acute appendicitis type: unspecified acute appendicitis type Qualified Code(s): K35.80 - Unspecified acute appendicitis PLAN: Patient is hospital day 2 for admission for acute appendicitis. She is taking Eliquis for history of paroxysmal atrial fibrillation and remotely, DVT. Last dose was 11:00 2 days ago. Planning for laparoscopic appendectomy later today. Patient confirms n.p.o. past midnight. Unfortunately CBC could not be updated given poor venous access. Patient's hemoglobin yesterday was permissive for surgery. Patient's bradycardia from yesterday is improved. Hospitalist service confirms suspicion of prolonged atenolol half-life. Echo result pending. Neuro: As needed Dilaudid Pulm/CV: Supplemental O2 and chronic home O2. Hold atenolol. Follow-up echo result FEN/GI: Close monitoring of potassium and phosphorus. Patient status post dialysis session yesterday. Patient n.p.o. for laparoscopic appendectomy today. Heme/ID: Unable to update CBC based on poor venous access. Ongoing Zosyn therapy Endo: Diabetes management per medicine Proph: No chemoprophylaxis given patient's presentation with anticoagulation. Dispo: Continue inpatient stay, planning for laparoscopic appendectomy later today Charges/Coding Visit Charges Inpatient E&M: 66544 Subs Hosp L2
[2021-04-21 11:01] LABS: Bedside Glucose 86 mg/dL (70-110)
--- NOTE | 2021-04-21 12:21 | PCM.PN.HOSP ---
Documented by User: Chantal Barrera NP, [employer] 04/21/21 12:32 Subjective Subjective Patient seen and examined. Reports anxiety and abdominal pain. Denies nausea, vomiting. Denies other symptoms or complaints. Heart rate improved, current heart rate 62. Objective Data Objective Data Vital Signs: Vital Signs Temp Pulse Resp BP Pulse Ox 98.1 F 62 18 116/58 L 98 04/21/21 09:02 04/21/21 11:04 04/21/21 09:02 04/21/21 09:02 04/21/21 09:02 Oxygen Flow Rate (L/min) 3 Oxygen Delivery Method Nasal Cannula Weight: 143 lb 4.807 oz Body Mass Index (BMI) 20.5 Intake & Output: Intake and Output for Last 24 Hours 04/19/21 04/20/21 04/21/21 23:59 23:59 23:59 Intake Total 530 / 530 50 / 50 Balance 530 / 530 50 / 50 Lab / Micro Data Result Diagrams: 04/20/21 05:32 04/21/21 06:15 Labs: Laboratory Results - last 24 hr 04/20/21 05:32: TSH 4.78 H 04/20/21 17:00: POC Glucose 157 H 04/20/21 21:51: POC Glucose 107 04/21/21 05:58: POC Glucose 75 04/21/21 06:15: Phosphorus 5.0 H, Magnesium 2.2 04/21/21 06:15: PT 12.8, INR 1.0, APTT 31.0 04/21/21 06:15: Sodium 135 L, Potassium 3.9, Chloride 100, Carbon Dioxide 29.0, Anion Gap 6, BUN 18, Creatinine 5.16 H, Estim Creat Clear Calc 10.56, Est GFR (MDRD) Af Amer 11 L, Est GFR (MDRD) Non-Af 9 L, BUN/Creatinine Ratio 3.5 L, Glucose 81, Calcium 9.4 04/21/21 10:54: POC Glucose 86 Micro: Microbiology 04/20/21 13:51 Nasal Secretion SARS-CoV-2 Antigen (Rapid) - Final Radiography Diagnostic Testing: Radiology Impression Chest X-Ray 04/20/21 17:55 IMPRESSION: No acute findings in the chest. Electronically Signed: Po Rodriguez MD at 2:03 EDT Tel , Service support , Physical Exam Const alert, oriented x3 and no apparent distress Orientation / Consciousness: awake, oriented to person, oriented to place and oriented to time HEENT normocephalic and moist oral mucous membranes Eyes PERRL, EOMs intact bilaterally and conjunctivae normal Neck no lymphadenopathy Resp normal respiratory effort and clear to auscultation bilaterally Cardio regular rate, regular rhythm and no murmurs Peripheral Pulses: pulses 2+ throughout GI normal to inspection, nondistended, normoactive bowel sounds and non-distended Palpation: tender Extremity normal to inspection Skin no rashes or lesions noted Lesions: no lesions Rashes: no rashes Trauma: no lacerations or abrasions Neuro CN's II-XII intact bilaterally, no focal motor deficits, no sensory deficits noted and deep tendon reflexes 2+ bilaterally Psych mental status grossly normal and affect normal Assessment & Plan Assessment/Plan (1) Acute appendicitis: QUALIFIERS: Acute appendicitis type: unspecified acute appendicitis type Qualified Code(s): K35.80 - Unspecified acute appendicitis PLAN: 1. Acute appendicitis-surgery following. Eliquis on hold. To undergo laparoscopic appendectomy this afternoon. As needed pain regimen. NPO. May proceed with surgical intervention from medical standpoint. 2. Sinus bradycardia-improved with holding atenolol. Echocardiogram completed and demonstrates an EF of 55%. 3. Chronic heart failure with reduced ejection fraction-echocardiogram September 2020 with EF 40%. Repeat echocardiogram demonstrates an EF of 55%. Continue home Lasix regimen. 4. Chronic COPD-as needed albuterol aerosol. 5. Chronic hypoxic respiratory failure secondary to chronic heart failure with reduced ejection fraction and chronic COPD-has intermittently required supplemental oxygen in the past. 6. Anemia of chronic disease- stable, trend CBC. 7. End-stage renal disease on hemodialysis-nephrology consult. 8. Hypertension-atenolol on hold. Continue hydralazine, amlodipine. 9. Hyperlipidemia-not on statin. 10. Anxiety/depression-on duloxetine, mirtazapine. 11. History of CVA-Eliquis on hold. Not on aspirin, statin. 12. Type 2 diabetes mellitus-hemoglobin A1c 12/01/2020 3.8%. 13. History of DVT-on Eliquis, currently held. 14. GERD-continue PPI. 15. Tobacco dependence-encouraged cessation. DVT prophylaxis-SCDs This patient was seen by JOE Zayas under the supervision of Dr. Montoya. Documented by User: Dr. Sixto Montoya MD 04/21/21 12:50 Objective Data Lab / Micro Data Result Diagrams: 04/20/21 05:32 04/21/21 06:15 Charges/Coding Addendum Addendum: Dr. Montoya: I personally reviewed the chart and examined the patient, and agree with the above findings. 71-year-old female presents to the hospital with right lower quadrant abdominal pain consistent with appendicitis. She is scheduled for surgery this afternoon however surgery asked that we evaluate the patient secondary to asymptomatic bradycardia. She had just discontinued her atenolol yesterday and remains slightly bradycardic. She was recently evaluated for flash pulmonary edema in the setting of hypertensive urgency in March of this year. She had a stress test in September which did show evidence of a previous myocardial infarction as well as a reduced EF. She did have an echo at that time which did show the EF around 45%. She does have a history of pulmonary hypertension as evidenced by an RVSP of 45 mmHg on her previous echo. I do recommend that anesthesiology do not give her significant amount of fluids as she is also dialysis dependent. Otherwise given the fact that the planned procedure is laparoscopic I consider her low risk. Visit Charges Inpatient E&M: 12649 Subs Hosp L2
--- NOTE | 2021-04-21 15:39 | CASEMGMT ---
Readmission chart review: 03/10/21-03/12/21 COPD/CHF exac 03/19/21-03/22/21 COPD/asthma exac 04/20/21-current Acute appendicitis Pt to OR today for acute appy with Dr. Ruiz. Pt is still active with [facility] for SN, PT/OT and she has HD MWF at 1110 at [facility]. Pt lives with her daughter, Salima, and has home oxygen order thru [employer] for 2L at rest and 4L w/ exertion. Pt is active with [facility]. PT/OT ordered and CM to follow for any further discharge planning/needs. SStbushra PAREDES CM
[2021-04-21] MEDS: Bupivacaine Mpf 0.5% 30 ML VIAL (16:00)
--- NOTE | 2021-04-21 16:21 | PCM.OPRPT ---
Problems Associated Problem List Diagnoses (1) Acute appendicitis: Report of Operation Date of Procedure: 04/21/21 Pre-Operative Diagnosis: 1. Acute appendicitis 2. Chronically anticoagulated for history of paroxysmal atrial fibrillation and DVT Post-Operative Diagnosis: Same Surgery/Procedure Performed:: Laparoscopic appendectomy Surgeon: Kaushal Ruiz emergency vehicle technician: Bobbi Curtis emergency vehicle technician: Sudarshan Valle Type of Anesthesia: General/Supplemental Anesthesiologist: Ruddy Damian Specimen's removed: Appendix Description of Procedure: After appropriate identification in the preoperative holding area, the patient was brought to the operating room and placed supine on the operating room table. Patient was then induced with general endotracheal anesthetic. Antibiotics were administered for skin prophylaxis. A Trujillo catheter was placed to decompress the bladder.. The abdomen was prepped and draped in usual sterile fashion. Formal timeout was conducted to confirm both the patient and the procedure. Midline incision was made inferior to the level of the iliac crests as her CT suggested this was the first point at which there was unlikely to be bowel adherent to her abdominal wall. Dissection was carried down to the level of the patient's mesh which was sharply opened. A finger sweep was made of the peritoneum to ensure positioning and clear thin adhesions. A balloon trocar was placed and pneumoperitoneum was established to 15 mmHg. Patient was positioned in Trendelenburg with the left side down. 2 additional 5 mm trocars were placed in the right lower quadrant given an abundance of adhesions along the midline and left lower quadrant. The peritoneum was inspected and there were no signs of inadvertent injury from this Smith entry. The appendix was not immediately visualized because of its retrocecal lie adherent to the lateral sidewall. However following the splaying of the tinea I was able to trace out the appendix, which was very inflamed distally but intact, and free the adhesions between the tip of the appendix to the lateral sidewall. This allowed me to elevate the appendix and retract it to its normal position at the base of the cecum. During this manipulation there was evidence of a focal perforation in the mid body of the appendix that did not result in any significant local contamination because it was quickly suctioned free of the peritoneum using the suction hop weigher device. Using blunt laparoscopic dissection, a window was made in the mesoappendix adjacent to the appendiceal base. Then the base of the appendix was sealed and amputated with the use of an Endo IVÁN stapler. The mesoappendix was divided with application of a laparoscopic harmonic. The appendix was placed in an Endo Catch bag. The staple line was inspected for hemostasis. There was some clot along the right paracolic gutter that was irrigated and suctioned free. There was also some residual irrigant in the pelvis which was evacuated. After hemostasis was confirmed, the appendix was removed from the umbilical port site. Pneumoperitoneum was evacuated and the 12 mm port site was closed with 0 Prolene in interrupted fashion given that we were closing and opening in permanent mesh. The skin of each port site was closed with 4-0 Monocryl in a subcuticular fashion. Steri-Strips and Band-Aids were applied as dressings. Patient tolerated procedure well without any apparent complications. The Trujillo catheter was removed. The patient was awoken from general anesthetic without issue and transferred to post anesthesia care unit for ongoing recovery. Procedures Digestive [id number]: [id number] Laparoscopy appendectomy
[2021-04-21 17:50] LABS: Bedside Glucose 113 mg/dL (70-110)
--- NOTE | 2021-04-21 18:56 | PN.RENAL_ITS ---
Subjective Subjective Following for ESRD. The patient denies chest pain, shortness of breath, or nausea. She does complain of some soreness at the surgical site. Objective Data Objective Data Vital Signs: Vital Signs Temp Pulse Resp BP Pulse Ox 97.7 F L 81 18 104/63 99 04/21/21 18:48 04/21/21 18:48 04/21/21 18:48 04/21/21 18:48 04/21/21 18:48 Oxygen Flow Rate (L/min) 2 Oxygen Delivery Method Nasal Cannula Weight: 65 kg Body Mass Index (BMI) 20.5 Intake & Output: Intake and Output for Last 24 Hours 04/19/21 04/20/21 04/21/21 23:59 23:59 23:59 Intake Total 530 / 530 50 / 50 Output Total 200 / 200 Balance 530 / 530 -150 / -150 Lab / Micro Data Result Diagrams: 04/20/21 05:32 04/21/21 06:15 Labs: Laboratory Results - last 24 hr 04/20/21 21:51: POC Glucose 107 04/21/21 05:58: POC Glucose 75 04/21/21 06:15: Phosphorus 5.0 H, Magnesium 2.2 04/21/21 06:15: PT 12.8, INR 1.0, APTT 31.0 04/21/21 06:15: Sodium 135 L, Potassium 3.9, Chloride 100, Carbon Dioxide 29.0, Anion Gap 6, BUN 18, Creatinine 5.16 H, Estim Creat Clear Calc 10.56, Est GFR (MDRD) Af Amer 11 L, Est GFR (MDRD) Non-Af 9 L, BUN/Creatinine Ratio 3.5 L, Glucose 81, Calcium 9.4 04/21/21 10:54: POC Glucose 86 04/21/21 17:46: POC Glucose 113 H Micro: Microbiology 04/20/21 13:51 Nasal Secretion SARS-CoV-2 Antigen (Rapid) - Final Radiography Diagnostic Testing: Radiology Impression Echocardiogram 04/20/21 16:08 Interpretation Summary The estimated ejection fraction is 55 %. Diastolic function is indeterminate. The left atrium is mildly enlarged. Ordering Physician: Brian Kinney Referring Physician: Shar Greene Performed By: Arleth Rivas, RDCS, RVT Chest X-Ray 04/20/21 17:55 IMPRESSION: No acute findings in the chest. Electronically Signed: Po Rodriguez MD at 2:03 EDT Tel , Service support , Physical Exam Narrative Patient is alert oriented x3 Lungs sound clear to auscultate anteriorly and posterior S1, S2, no lower extremity edema Abdomen soft, moderate tenderness with palpation of the right lower quadrant. Normal bowel sounds. Tunneled hemodialysis catheter right chest, dressing clear dry and intact Assessment & Plan Assessment/Plan (1) Acute appendicitis: QUALIFIERS: Acute appendicitis type: unspecified acute appendicitis type Qualified Code(s): K35.80 - Unspecified acute appendicitis (2) ESRD (end stage renal disease): (3) AF (paroxysmal atrial fibrillation): (4) Anemia in chronic kidney disease (CKD): QUALIFIERS: Chronic kidney disease stage: on chronic dialysis Qualified Code(s): N18.6 - End stage renal disease; D63.1 - Anemia in chronic kidney disease; Z99.2 - Dependence on renal dialysis (5) HTN (hypertension): QUALIFIERS: Hypertension type: essential hypertension Qualified Code(s): I10 - Essential (primary) hypertension PLAN: -Patient has history of ESRD on hemodialysis Sunday. No need for dialysis today. We will plan for dialysis tomorrow on her usual schedule. -Surgery team following for acute appendicitis, and she is status post laparoscopic appendectomy today. -History of A. fib/DVT, Eliquis on hold. -Current hemoglobin at goal. Patient last received 225 mcg of Micera on April 08 at the kidney center. Patient does not he need ANGELI. We will continue to monitor hemoglobin trends. -Blood pressures acceptable, at goal. Heart rate is better after reduction of atenolol dosage. We will continue to follow. -Thank you for allowing us participate in the care of Ms. Ferrer. Please contact us if any questions arise.
[2021-04-21] MEDS: Mirtazapine 15 MG Tablet 45 MG PO (22:34)
[2021-04-21 23:06] LABS: Bedside Glucose 117 mg/dL (70-110)
[2021-04-22] VITALS (20 sets, daily range): BP systolic 91–147; BP diastolic 51–71; PULSE 62–77; RESP 15–20; TEMP 36.4–37; O2SAT 98–100; BMI 21.2
--- NOTE | 2021-04-22 | APP_PTH ---
PATIENT: ALEC GUTIERREZ LOC: [facility] U#:[id number] AGE/SX: 71/F ROOM: [facility] RE04/20/[address]: Dr. Sixto Montoya MD : 1950 BED: 1 DIS: 04/28/2021 SPEC #: [id number] RECD: 04/22/21 13:04 STATUS: OSIEL MAGANA #: [id number] JABIER: 04/22/21 00:[address]: Kaushal Ruiz DEPT: SURGICAL PATHOLOGY RECD BY: Padmini Campuzano ENTERED: 04/22/21 13:24 SP TYPE: APPENDIX OTHR DR: MD Dr. Shar Evans MD Dr. Nicholas F Kotsonis, MD Dr. Natthavat Tanphaichitr, MD Tissues: Appendix, NOS Procedures: Surgery Specimen Level III Comments: @ Ordering doctor for SUIII edited from to @ by EAGLE at 04/22/21 1503 @ Submitting doctor edited from to @ by RGOOD at 04/22/21 1503 HEADER OPERATION: Laparoscopic appendectomy PRE-OP DIAGNOSIS: Acute appendicitis TISSUE SUBMITTED: Appendix MICROSCOPIC DIAGNOSIS Appendix, appendectomy: Acute appendicitis. Focal hyperplastic epithelium. AM:ronnie 04/25/2021 MICROSCOPIC DESCRIPTION Slides are reviewed. GROSS DESCRIPTION Received in fixative is one container labeled with the patient's name and designated appendix. The specimen consists of an appendix measuring 5 cm in length and 0.6 to 1.5 cm in diameter. The appendix at the tip is dilated. The external surface is pink. The attached periappendiceal adipose tissue measures up to 2 cm in width. No obvious area of perforation is noted. The entire appendix is submitted in three cassettes as follows: 1 - one half of appendicular tip and proximal portion, 2 - other half of the tip, 3 - rest of the appendix. / SJ:ronnie 04/22/21 TC:2 CPT: 36076
[2021-04-22 06:10] LABS: Bedside Glucose 86 mg/dL (70-110)
[2021-04-22] MEDS: oxyCODONE 5 MG Tablet PO (06:11)
[2021-04-22] MEDS: Calcium Acetate 667 MG Capsule PO ×2 (06:11→21:19)
[2021-04-22] MEDS: Gabapentin 300 MG Capsule PO ×2 (06:11→21:18)
[2021-04-22] MEDS: hydrALAZINE 50 MG Tablet 100 MG PO ×2 (06:42→21:19)
[2021-04-22 06:44] LABS: Absolute Lymphocyte Count 1.33 X10^3/uL (0.83-4.51); Absolute Neutrophil Count 8.2 X10^3/uL (2.0-7.7); Basophil# 0.02 X10^3/uL; Basophil% 0.2 % (0-1); Eosinophil# 0.01 X10^3/uL; Eosinophils% 0.1 % (0-5); Hematocrit 35.8 % (37-47); Hemoglobin 10.4 g/dL (12.0-15.0); Lymphocyte # 1.33 X10^3/ul (0.83-4.51); Lymphocyte % 12.9 % (19-41); Mean Corp Hgb Conc 29.1 g/dL (32-36); Mean Corpuscular Hgb 25.6 pg (27.0-32.0); Mean Corpuscular Volume 88.2 fL (81-99); Mean Platelet Vol. 9.3 fl (6.2-12.0); Monocyte# 0.77 X10^3/uL; Monocyte% 7.4 % (0-10); NRBC Flagged by Analyzer 0 % (0-5); Neutrophil # 8.15 X10^3/uL (2.7-7.7); Neutrophil % 78.8 % (47-70); Platelet Count 162 K/mm3 (150-450); RBC Distribution Width CV 17.1 % (11.6-14.6); RBC Distribution Width SD 55.1 fl (35.1-43.9); Red Blood Count 4.06 M/mm3 (4.2-5.4); White Blood Count 10.3 K/mm3 (4.4-11.0)
[2021-04-22 07:18] LABS: Anion Gap 10 (5-15); BUN 31 mg/dL (7-18); BUN/Creat Ratio 4.3 RATIO (10-20); Calcium,Total 9.1 mg/dL (8.5-10.1); Chloride 101 mmol/L (98-107); Creatinine, Serum 7.21 mg/dL (0.55-1.02); EST Glomerular Filtration Rate 6 mL/min (>60); Est Glom Filt Rate - Afr Amer 7 mL/min (>60); Glucose 77 mg/dL (74-106); Sodium Level 136 mmol/L (136-145)
[2021-04-22] MEDS: Ipratropium/Albuterol Sulfate 3 ML AMPUL.NEB INHALATION ×3 (07:18→18:58)
--- NOTE | 2021-04-22 07:44 | PN.SURG_ITS ---
Subjective Subjective Patient was seen and examined during AM rounds. She reported that she was tolerating liquids and requested a diet advance. She described improvement in her abdominal pain but tenderness about her incision.. Patient later was examined in anticipation of possible discharge. She reported tolerance of a regular diet, but began complaining of lower extremity weakness. graduate student at bedside relayed that patient had been able to stand at bedside but was unable to walk. Objective Data Objective Data Vital Signs: Vital Signs Temp Pulse Resp BP Pulse Ox 97.9 F 64 16 147/68 H 100 04/22/21 06:38 04/22/21 07:21 04/22/21 07:21 04/22/21 06:42 04/22/21 06:38 Oxygen Flow Rate (L/min) 2 Oxygen Delivery Method Nasal Cannula Weight: 152 lb 12.485 oz Body Mass Index (BMI) 20.5 Intake & Output: Intake and Output for Last 24 Hours 04/20/21 04/21/21 04/22/21 23:59 23:59 23:59 Intake Total 530 / 530 50 / 450 540 / 540 Output Total 200 / 200 Balance 530 / 530 -150 / 250 540 / 540 Lab / Micro Data Result Diagrams: 04/22/21 05:55 04/22/21 05:55 Labs: Laboratory Results - last 24 hr 04/21/21 10:54: POC Glucose 86 04/21/21 17:46: POC Glucose 113 H 04/21/21 22:29: POC Glucose 117 H 04/22/21 05:55: WBC 10.3, RBC 4.06 L, Hgb 10.4 L, Hct 35.8 L, MCV 88.2, MCH 25.6 L, MCHC 29.1 L, RDW Std Deviation 55.1 H, RDW Coeff of Destiny 17.1 H, Plt Count 162, MPV 9.3, Immature Gran % (Auto) 0.600, Neut % (Auto) 78.8 H, Lymph % (Auto) 12.9 L, [place] % (Auto) 7.4, Eos % (Auto) 0.1, Baso % (Auto) 0.2, Absolute Neuts (auto) 8.2 H, Absolute Lymphs (auto) 1.33, Nucleated RBC % 0 04/22/21 05:55: Sodium 136, Potassium 4.0, Chloride 101, Carbon Dioxide 25.0, Anion Gap 10, BUN 31 H, Creatinine 7.21 H, Estim Creat Clear Calc 7.70, Est GFR (MDRD) Af Amer 7 L, Est GFR (MDRD) Non-Af 6 L, BUN/Creatinine Ratio 4.3 L, Glucose 77, Calcium 9.1 04/22/21 06:07: POC Glucose 86 Micro: Microbiology 04/20/21 13:51 Nasal Secretion SARS-CoV-2 Antigen (Rapid) - Final Radiography Diagnostic Testing: Radiology Impression Echocardiogram 04/20/21 16:08 Interpretation Summary The estimated ejection fraction is 55 %. Diastolic function is indeterminate. The left atrium is mildly enlarged. Ordering Physician: Brian Kinney Referring Physician: Shar Greene Performed By: Arleth Rivas, MELISSACS, RVT Physical Exam Const oriented x3 and no apparent distress Resp Resp Narrative: Nasal cannula in place GI GI Narrative: Patient's abdomen is nondistended. Operative sites are intact with operative dressings. There is minimal drainage to these dressings. Patient's abdomen is soft and appropriately tender about the incisions. Extremity Extremity Narrative: Patient has 5 out of 5 dorsiflexion plantarflexion. She was unable to sustain extension against gravity. She has 5 out of 5 strength for upper extremity extension flexion as well as shoulder abduction. Assessment & Plan Assessment/Plan (1) Acute appendicitis: QUALIFIERS: Acute appendicitis type: unspecified acute appendicitis type Qualified Code(s): K35.80 - Unspecified acute appendicitis PLAN: Postoperative day 1 from laparoscopic appendectomy. Abdominal exam is appropriate. Patient is tolerating a regular diet without issue. Biochemistries are stable from preop. Complaints for lower extremity weakness are non-? lateralizing. In dialogue with the hospitalist service, I suspect patient has merely debilitated from her operation yesterday and will require additional physical therapy. No acute work-up recommended. From a surgical standpoint, would recommend waiting to resume patient's Eliquis until 04/24/2021. Charges/Coding Visit Charges Inpatient E&M: 50726 Subs Hosp L2
[2021-04-22] MEDS: HYDROmorphone 0.5 MG/0.5 ML SYRINGE IV ×3 (08:05→21:11)
[2021-04-22] MEDS: 0.9% Saline Lock 10 ML Syringe IV ×3 (08:05→21:12)
--- NOTE | 2021-04-22 11:05 | CASEMGMT ---
Addendum entered by Rashmi Madsen 04/22/21 13:37: Call to [facility] to update that pt will not be coming there today for treatment and that pt will likely go to SNF at d/c, voices understanding. CM to follow. Leonides PAREDES CM Addendum entered by Rashmi Madsen 04/22/21 13:35: Per therapy, pt needs SNF and pt is agreeable. Ian LERMA aware, voices understanding. Leonides PAREDES CM Original Note: This RN CM to room to let pt know she can go to OP dialysis today as surgeon and hospitalist state pt is ready for d/c. Pt voices understanding but states 'my legs don't want to work today.' Per student nurse, pt was able to stand but not really take any steps. Therapy was ordered for pt but they have not seen pt yet d/t surgery yesterday afternoon. CM to follow. Leonides PAREDES CM
[2021-04-22] MEDS: Insulin Lispro 100 UNIT/ML INSULN.PEN SC (11:56)
[2021-04-22 12:56] LABS: Bedside Glucose 163 mg/dL (70-110)
--- NOTE | 2021-04-22 13:35 | PCM.PN.HOSP ---
Documented by User: Chantal Barrera SPEECH LANGUAGE SPECIALIST, SPEECH LANGUAGE SPECIALIST-C 04/22/21 13:39 Subjective Subjective Patient seen and examined. Reports abdominal soreness. States she ate her breakfast without difficulty and could eat more. Denies nausea, vomiting. Denies significant abdominal pain. Reports generalized weakness, amendable to SNF rehab. No focal neurologic deficits. Objective Data Objective Data Vital Signs: Vital Signs Temp Pulse Resp BP Pulse Ox 98.5 F 66 18 123/53 H 99 04/22/21 09:04 04/22/21 09:04 04/22/21 09:04 04/22/21 09:04 04/22/21 09:05 Oxygen Flow Rate (L/min) 2 Oxygen Delivery Method Nasal Cannula Weight: 152 lb 12.485 oz Body Mass Index (BMI) 20.5 Intake & Output: Intake and Output for Last 24 Hours 04/20/21 04/21/21 04/22/21 23:59 23:59 23:59 Intake Total 530 / 530 50 / 450 780 / 780 Output Total 200 / 200 0 / 0 Balance 530 / 530 -150 / 250 780 / 780 Lab / Micro Data Result Diagrams: 04/22/21 05:55 04/22/21 05:55 Labs: Laboratory Results - last 24 hr 04/21/21 17:46: POC Glucose 113 H 04/21/21 22:29: POC Glucose 117 H 04/22/21 05:55: WBC 10.3, RBC 4.06 L, Hgb 10.4 L, Hct 35.8 L, MCV 88.2, MCH 25.6 L, MCHC 29.1 L, RDW Std Deviation 55.1 H, RDW Coeff of Destiny 17.1 H, Plt Count 162, MPV 9.3, Immature Gran % (Auto) 0.600, Neut % (Auto) 78.8 H, Lymph % (Auto) 12.9 L, [place] % (Auto) 7.4, Eos % (Auto) 0.1, Baso % (Auto) 0.2, Absolute Neuts (auto) 8.2 H, Absolute Lymphs (auto) 1.33, Nucleated RBC % 0 04/22/21 05:55: Sodium 136, Potassium 4.0, Chloride 101, Carbon Dioxide 25.0, Anion Gap 10, BUN 31 H, Creatinine 7.21 H, Estim Creat Clear Calc 7.70, Est GFR (MDRD) Af Amer 7 L, Est GFR (MDRD) Non-Af 6 L, BUN/Creatinine Ratio 4.3 L, Glucose 77, Calcium 9.1 04/22/21 06:07: POC Glucose 86 04/22/21 11:55: POC Glucose 163 H Micro: Microbiology 04/20/21 13:51 Nasal Secretion SARS-CoV-2 Antigen (Rapid) - Final Physical Exam Const alert, oriented x3 and no apparent distress Orientation / Consciousness: awake, oriented to person, oriented to place and oriented to time HEENT normocephalic and moist oral mucous membranes Eyes PERRL, EOMs intact bilaterally and conjunctivae normal Neck no lymphadenopathy Resp normal respiratory effort and clear to auscultation bilaterally Cardio regular rate, regular rhythm and no murmurs Peripheral Pulses: pulses 2+ throughout GI normal to inspection, nondistended, normoactive bowel sounds, non-tender and non-distended Extremity normal to inspection Skin no rashes or lesions noted Lesions: no lesions Rashes: no rashes Trauma: no lacerations or abrasions Neuro CN's II-XII intact bilaterally, no focal motor deficits, no sensory deficits noted and deep tendon reflexes 2+ bilaterally Psych mental status grossly normal and affect normal Assessment & Plan Assessment/Plan (1) Acute appendicitis: QUALIFIERS: Acute appendicitis type: unspecified acute appendicitis type Qualified Code(s): K35.80 - Unspecified acute appendicitis PLAN: 1. Acute appendicitis-surgery following. Status post laparoscopic appendectomy 04/21/2021. As needed pain regimen. Resume Eliquis when okay per surgery. 2. Sinus bradycardia-resolved with holding atenolol. Echocardiogram completed and demonstrates an EF of 55%. Recommend continuing to hold atenolol. 3. Chronic heart failure with reduced ejection fraction-echocardiogram September 2020 with EF 40%. Repeat echocardiogram demonstrates an EF of 55%. Continue home Lasix regimen. 4. Chronic COPD-as needed albuterol aerosol. 5. Chronic hypoxic respiratory failure secondary to chronic heart failure with reduced ejection fraction and chronic COPD-has intermittently required supplemental oxygen in the past. 6. Anemia of chronic disease- stable, trend CBC. 7. End-stage renal disease on hemodialysis-nephrology consult. 8. Hypertension-atenolol on hold. Continue hydralazine, amlodipine. 9. Hyperlipidemia-not on statin. 10. Anxiety/depression-on duloxetine, mirtazapine. 11. History of CVA-Eliquis on hold. Not on aspirin, statin. 12. Type 2 diabetes mellitus-hemoglobin A1c 12/01/2020 3.8%. 13. History of DVT-on Eliquis, currently held. 14. GERD-continue PPI. 15. Tobacco dependence-encouraged cessation. 16. Generalized weakness-PT/OT. SNF for rehab pending acceptance. DVT prophylaxis-SCDs Patient is stable from medical standpoint. Await insurance approval to SNF due to generalized weakness/debility. Hospitalist services will follow peripherally. This patient was seen by JOE Zayas under the supervision of Dr. Montoya. Documented by User: Dr. Sixto Montoya MD 04/22/21 16:04 Objective Data Lab / Micro Data Result Diagrams: 04/22/21 05:55 04/22/21 05:55 Charges/Coding Addendum Addendum: Dr. Montoya: I personally reviewed the chart and examined the patient, and agree with the above findings. 71-year-old female presents to the hospital with right lower quadrant abdominal pain consistent with appendicitis. She is scheduled for surgery this afternoon however surgery asked that we evaluate the patient secondary to asymptomatic bradycardia. She had just discontinued her atenolol yesterday and remains slightly bradycardic. She was recently evaluated for flash pulmonary edema in the setting of hypertensive urgency in March of this year. She had a stress test in September which did show evidence of a previous myocardial infarction as well as a reduced EF. She did have an echo at that time which did show the EF around 45%. She does have a history of pulmonary hypertension as evidenced by an RVSP of 45 mmHg on her previous echo. I do recommend that anesthesiology do not give her significant amount of fluids as she is also dialysis dependent. Otherwise given the fact that the planned procedure is laparoscopic I consider her low risk. 04/22/2021: Doing well after surgery but is having some generalized weakness. Her legs are unsteady underneath her. Ordered PT/OT for evaluation. She is okay with proceeding with a SNF placement if deemed necessary by physical therapy. Continue with dialysis, bradycardia has resolved. If her blood pressure does get out of control can restart her atenolol Visit Charges Inpatient E&M: 12545 Subs Hosp L2
--- NOTE | 2021-04-22 14:34 | CASEMGMT ---
Therapy is recommending patient go somewhere for rehab. MARIA GUADALUPE met with patient and she is agreeable to going somewhere. She has been to [facility] before so SW asked if she would want to go back there. She said she does not want to go there. SW provided patient with a list of SNF providers including quality and resource use data and consistent with the patient?s preferred geographic region, medical needs, and insurance network. SW asked her to pick 2-3 facilities. Patient has [place] so she will require insurance authorization before she can go anywhere. Patient's daughter will be coming in tomorrow and will help her pick facilities. MARIA GUADALUPE will follow up on Sunday. Plan: SNF pending patient picking a place and insurance approval. Evy GONZALEZ
--- NOTE | 2021-04-22 14:56 | PN.RENAL_ITS ---
Subjective Subjective Sitting in chair, no overnight events. Complains of sore belly. No vomiting. Objective Data Objective Data Vital Signs: Vital Signs Temp Pulse Resp BP Pulse Ox 98.6 F 73 20 H 104/58 L 100 04/22/21 14:32 04/22/21 14:32 04/22/21 14:32 04/22/21 14:32 04/22/21 14:32 Oxygen Flow Rate (L/min) 3 Oxygen Delivery Method Room Air Weight: 69.3 kg Body Mass Index (BMI) 20.5 Intake & Output: Intake and Output for Last 24 Hours 04/20/21 04/21/21 04/22/21 23:59 23:59 23:59 Intake Total 530 / 530 50 / 450 780 / 780 Output Total 200 / 200 0 / 0 Balance 530 / 530 -150 / 250 780 / 780 Lab / Micro Data Result Diagrams: 04/22/21 05:55 04/22/21 05:55 Labs: Laboratory Results - last 24 hr 04/21/21 17:46: POC Glucose 113 H 04/21/21 22:29: POC Glucose 117 H 04/22/21 05:55: WBC 10.3, RBC 4.06 L, Hgb 10.4 L, Hct 35.8 L, MCV 88.2, MCH 25.6 L, MCHC 29.1 L, RDW Std Deviation 55.1 H, RDW Coeff of Destiny 17.1 H, Plt Count 162, MPV 9.3, Immature Gran % (Auto) 0.600, Neut % (Auto) 78.8 H, Lymph % (Auto) 12.9 L, [place] % (Auto) 7.4, Eos % (Auto) 0.1, Baso % (Auto) 0.2, Absolute Neuts (auto) 8.2 H, Absolute Lymphs (auto) 1.33, Nucleated RBC % 0 04/22/21 05:55: Sodium 136, Potassium 4.0, Chloride 101, Carbon Dioxide 25.0, Anion Gap 10, BUN 31 H, Creatinine 7.21 H, Estim Creat Clear Calc 7.70, Est GFR (MDRD) Af Amer 7 L, Est GFR (MDRD) Non-Af 6 L, BUN/Creatinine Ratio 4.3 L, Glucose 77, Calcium 9.1 04/22/21 06:07: POC Glucose 86 04/22/21 11:55: POC Glucose 163 H Micro: Microbiology 04/20/21 13:51 Nasal Secretion SARS-CoV-2 Antigen (Rapid) - Final Physical Exam Narrative Patient is alert oriented x3 Lungs sound clear to auscultate anteriorly and posterior S1, S2, rhythm regular rate controlled no lower extremity edema Abdomen soft, moderate tenderness with palpation. Normal bowel sounds. Tunneled hemodialysis catheter right chest, dressing clear dry and intact Assessment & Plan Assessment/Plan (1) Acute appendicitis: QUALIFIERS: Acute appendicitis type: unspecified acute appendicitis type Qualified Code(s): K35.80 - Unspecified acute appendicitis (2) ESRD (end stage renal disease): (3) AF (paroxysmal atrial fibrillation): (4) Anemia in chronic kidney disease (CKD): QUALIFIERS: Chronic kidney disease stage: on chronic dialysis Qualified Code(s): N18.6 - End stage renal disease; D63.1 - Anemia in chronic kidney disease; Z99.2 - Dependence on renal dialysis (5) HTN (hypertension): QUALIFIERS: Hypertension type: essential hypertension Qualified Code(s): I10 - Essential (primary) hypertension PLAN: -ESRD on hemodialysis Sunday. To have dialysis today over 3.5 hours, 3kbath, UF as blood pressure/patient tolerates. Weight today 69kg??, previous 63/65kg, admission weight 61kg. Outpatient edw was 62.5kg. -Surgery team following for acute appendicitis and she is status post laparoscopic appendectomy 04/21. -History of A. fib/DVT, Eliquis on hold and to resume when cleared by surgery. Off atenolol -Current hemoglobin at goal. Patient last received 225 mcg of Micera on April 08 at [facility]. Patient does not he need ANGELI. We will continue to monitor hemoglobin trends. -Blood pressures acceptable, at goal on amlodipine, hydralazine. Heart rate is better off atenolol - nepro ordered - discharge planning, possible ECF for rehab.
--- NOTE | 2021-04-22 14:56 | NURSING ---
Read and reviewed SN documentation. Reviewed plan of care with SN
[2021-04-22] MEDS: Calcitriol 0.25 MCG Capsule 1.5 MCG PO (16:06)
[2021-04-22 17:40] LABS: Bedside Glucose 103 mg/dL (70-110)
--- NOTE | 2021-04-22 19:57 | DIALYSIS ---
HD tx 3.5 hrs completed without complications, pt tolerated well. Pt stable post tx. Total UF removed 1000ml. See tx sheet in chart.
[2021-04-22] MEDS: DULoxetine Hcl 30 MG Capsule PO (21:16)
[2021-04-22] MEDS: Pantoprazole Sodium 40 MG Tablet PO (21:17)
[2021-04-22] MEDS: Furosemide 40 MG Tablet PO (21:20)
[2021-04-22] MEDS: amLODIPine 10 MG Tablet PO (22:52)
[2021-04-22] MEDS: Mirtazapine 15 MG Tablet 45 MG PO (22:52)
[2021-04-22 23:06] LABS: Bedside Glucose 127 mg/dL (70-110)
[2021-04-23] VITALS (20 sets, daily range): BP systolic 111–143; BP diastolic 51–77; PULSE 67–78; RESP 15–16; TEMP 36.6–37.2; O2SAT 97–100
[2021-04-23 05:46] LABS: Absolute Neutrophil Count 4.8 X10^3/uL (2.0-7.7); Basophil# 0.02 X10^3/uL; Basophil% 0.3 % (0-1); Eosinophil# 0.24 X10^3/uL; Eosinophils% 3.1 % (0-5); Hematocrit 34.3 % (37-47); Hemoglobin 10.1 g/dL (12.0-15.0); Lymphocyte % 22.3 % (19-41); Mean Corp Hgb Conc 29.4 g/dL (32-36); Mean Corpuscular Volume 88.4 fL (81-99); Mean Platelet Vol. 9.5 fl (6.2-12.0); Monocyte# 0.89 X10^3/uL; Monocyte% 11.6 % (0-10); NRBC Flagged by Analyzer 0 % (0-5); Neutrophil # 4.78 X10^3/uL (2.7-7.7); Neutrophil % 62.6 % (47-70); Platelet Count 120 K/mm3 (150-450); RBC Distribution Width SD 55.2 fl (35.1-43.9); Red Blood Count 3.88 M/mm3 (4.2-5.4); White Blood Count 7.6 K/mm3 (4.4-11.0)
[2021-04-23 06:25] LABS: Anion Gap 7 (5-15); BUN 16 mg/dL (7-18); BUN/Creat Ratio 3.3 RATIO (10-20); Chloride 101 mmol/L (98-107); Creatinine, Serum 4.83 mg/dL (0.55-1.02); EST Glomerular Filtration Rate 10 mL/min (>60); Est Glom Filt Rate - Afr Amer 12 mL/min (>60); Estimated Creatinine Clearance 11.49 ml/min; Glucose 121 mg/dL (74-106); Potassium 3.5 mmol/L (3.5-5.1); Sodium Level 136 mmol/L (136-145)
[2021-04-23] MEDS: Ipratropium/Albuterol Sulfate 3 ML AMPUL.NEB INHALATION ×3 (06:33→19:29)
[2021-04-23] MEDS: hydrALAZINE 50 MG Tablet 100 MG PO ×3 (06:54→21:58)
[2021-04-23] MEDS: Calcium Acetate 667 MG Capsule PO ×3 (06:55→21:59)
[2021-04-23] MEDS: Gabapentin 300 MG Capsule PO ×3 (06:55→21:57)
[2021-04-23 07:10] LABS: Bedside Glucose 97 mg/dL (70-110)
--- NOTE | 2021-04-23 08:11 | PCM.PN.SRG ---
Subjective Subjective Patient says pain is improving. Positive bowel movements. Objective Data Objective Data Dressings are dry. Abdomen is soft no rebound guarding or peritoneal signs. Vital Signs: Vital Signs Temp Pulse Resp BP Pulse Ox 97.9 F 73 15 143/77 H 100 04/23/21 06:57 04/23/21 06:57 04/23/21 06:57 04/23/21 06:57 04/23/21 06:57 Oxygen Flow Rate (L/min) 2 Oxygen Delivery Method Nasal Cannula Weight: 147 lb 11.355 oz Body Mass Index (BMI) 20.5 Intake & Output: Intake and Output for Last 24 Hours 04/21/21 04/22/21 04/23/21 23:59 23:59 23:59 Intake Total 50 / 450 1160 / 1360 420 / 420 Output Total 200 / 200 0 / 0 Balance -150 / 250 1160 / 1360 420 / 420 Lab / Micro Data Result Diagrams: 04/23/21 05:04 04/23/21 05:04 Labs: Laboratory Results - last 24 hr 04/22/21 11:55: POC Glucose 163 H 04/22/21 17:32: POC Glucose 103 04/22/21 22:50: POC Glucose 127 H 04/23/21 05:04: WBC 7.6, RBC 3.88 L, Hgb 10.1 L, Hct 34.3 L, MCV 88.4, MCH 26.0 L, MCHC 29.4 L, RDW Std Deviation 55.2 H, RDW Coeff of Destiny 17.0 H, Plt Count 120 L, MPV 9.5, Immature Gran % (Auto) 0.100, Neut % (Auto) 62.6, Lymph % (Auto) 22.3, [place] % (Auto) 11.6 H, Eos % (Auto) 3.1, Baso % (Auto) 0.3, Absolute Neuts (auto) 4.8, Absolute Lymphs (auto) 1.70, Nucleated RBC % 0 04/23/21 05:04: Sodium 136, Potassium 3.5, Chloride 101, Carbon Dioxide 28.0, Anion Gap 7, BUN 16, Creatinine 4.83 H, Estim Creat Clear Calc 11.49, Est GFR (MDRD) Af Amer 12 L, Est GFR (MDRD) Non-Af 10 L, BUN/Creatinine Ratio 3.3 L, Glucose 121 H, Calcium 9.0 04/23/21 06:45: POC Glucose 97 Micro: Microbiology 04/20/21 13:51 Nasal Secretion SARS-CoV-2 Antigen (Rapid) - Final Assessment & Plan Assessment/Plan (1) Acute appendicitis: QUALIFIERS: Acute appendicitis type: unspecified acute appendicitis type Qualified Code(s): K35.80 - Unspecified acute appendicitis PLAN: Continuing to make improvements. Ready for discharge to extended stay facility when medically cleared
[2021-04-23] MEDS: DULoxetine Hcl 30 MG Capsule PO (08:37)
[2021-04-23] MEDS: Nepro Liquid 120 ML LIQUID PO ×2 (08:37→13:05)
[2021-04-23] MEDS: Furosemide 40 MG Tablet PO (08:37)
[2021-04-23] MEDS: Pantoprazole Sodium 40 MG Tablet PO ×2 (08:37→21:57)
[2021-04-23] MEDS: amLODIPine 10 MG Tablet PO (08:37)
[2021-04-23] MEDS: oxyCODONE 5 MG Tablet PO ×2 (08:41→15:16)
--- NOTE | 2021-04-23 10:57 | CASEMGMT ---
Pt states she would like [facility] as first choice and [facility] as second choice. Jenelle LERMA aware, voices understanding. Leonides PAREDES CM
[2021-04-23 11:16] LABS: Bedside Glucose 139 mg/dL (70-110)
--- NOTE | 2021-04-23 15:36 | CM.ED ---
Patient voiced to that she wants [facility] and [facility] as SNF placements. Due to weekend this life underwriter unable to contact them for referral. Jenelle TYLER
[2021-04-23 16:21] LABS: Bedside Glucose 108 mg/dL (70-110)
--- NOTE | 2021-04-23 18:57 | PCM.PN.REN ---
Subjective Subjective Following for ESRD. The patient denies chest pain or shortness of breath. Abdominal pain is better. Objective Data Objective Data Vital Signs: Vital Signs Temp Pulse Resp BP Pulse Ox 97.9 F 71 16 111/60 100 04/23/21 15:12 04/23/21 15:12 04/23/21 15:12 04/23/21 15:12 04/23/21 15:12 Oxygen Flow Rate (L/min) 2 Oxygen Delivery Method Nasal Cannula Weight: 67 kg Body Mass Index (BMI) 20.5 Intake & Output: Intake and Output for Last 24 Hours 04/21/21 04/22/21 04/23/21 23:59 23:59 23:59 Intake Total 50 / 450 1160 / 1360 1260 / 1260 Output Total 200 / 200 0 / 0 0 / 0 Balance -150 / 250 1160 / 1360 1260 / 1260 Lab / Micro Data Result Diagrams: 04/23/21 05:04 04/23/21 05:04 Labs: Laboratory Results - last 24 hr 04/22/21 22:50: POC Glucose 127 H 04/23/21 05:04: WBC 7.6, RBC 3.88 L, Hgb 10.1 L, Hct 34.3 L, MCV 88.4, MCH 26.0 L, MCHC 29.4 L, RDW Std Deviation 55.2 H, RDW Coeff of Destiny 17.0 H, Plt Count 120 L, MPV 9.5, Immature Gran % (Auto) 0.100, Neut % (Auto) 62.6, Lymph % (Auto) 22.3, [place] % (Auto) 11.6 H, Eos % (Auto) 3.1, Baso % (Auto) 0.3, Absolute Neuts (auto) 4.8, Absolute Lymphs (auto) 1.70, Nucleated RBC % 0 04/23/21 05:04: Sodium 136, Potassium 3.5, Chloride 101, Carbon Dioxide 28.0, Anion Gap 7, BUN 16, Creatinine 4.83 H, Estim Creat Clear Calc 11.49, Est GFR (MDRD) Af Amer 12 L, Est GFR (MDRD) Non-Af 10 L, BUN/Creatinine Ratio 3.3 L, Glucose 121 H, Calcium 9.0 04/23/21 06:45: POC Glucose 97 04/23/21 11:08: POC Glucose 139 H 04/23/21 16:14: POC Glucose 108 Micro: Microbiology 04/20/21 13:51 Nasal Secretion SARS-CoV-2 Antigen (Rapid) - Final Physical Exam Narrative Patient is alert oriented x3 Lungs sound clear to auscultate anteriorly and posterior S1, S2, rhythm regular rate controlled no lower extremity edema Abdomen soft, mild tenderness with palpation. Normal bowel sounds. Tunneled hemodialysis catheter right chest, dressing clear dry and intact Assessment & Plan Assessment/Plan (1) ESRD (end stage renal disease): (2) AF (paroxysmal atrial fibrillation): (3) Anemia in chronic kidney disease (CKD): QUALIFIERS: Chronic kidney disease stage: on chronic dialysis Qualified Code(s): N18.6 - End stage renal disease; D63.1 - Anemia in chronic kidney disease; Z99.2 - Dependence on renal dialysis (4) Acute appendicitis: QUALIFIERS: Acute appendicitis type: unspecified acute appendicitis type Qualified Code(s): K35.80 - Unspecified acute appendicitis (5) HTN (hypertension): QUALIFIERS: Hypertension type: essential hypertension Qualified Code(s): I10 - Essential (primary) hypertension PLAN: -ESRD on hemodialysis Sunday. -Tolerated dialysis well yesterday. No need for dialysis today. -Continue calcium acetate with meals for phosphorus binding. Recheck calcium and phosphorus on Sunday prior to dialysis. -Current hemoglobin at goal. Patient last received 225 mcg of Micera on April 08 at the kidney center. Patient does not he need ANGELI. We will continue to monitor hemoglobin trends. -Plan on dialysis on 04/25/2021 prior to discharge to an SNF.
[2021-04-23] MEDS: Mirtazapine 15 MG Tablet 45 MG PO (22:04)
[2021-04-23 22:25] LABS: Bedside Glucose 135 mg/dL (70-110)
[2021-04-24] VITALS (14 sets, daily range): BP systolic 113–127; BP diastolic 55–63; PULSE 64–91; RESP 16–20; TEMP 36.7–37.1; O2SAT 98–100
[2021-04-24] MEDS: oxyCODONE 5 MG Tablet PO ×2 (00:42→05:26)
[2021-04-24] MEDS: hydrALAZINE 50 MG Tablet 100 MG PO ×3 (05:26→21:18)
[2021-04-24] MEDS: Calcium Acetate 667 MG Capsule PO ×3 (05:26→21:17)
[2021-04-24] MEDS: Gabapentin 300 MG Capsule PO ×3 (05:26→21:17)
[2021-04-24 05:40] LABS: Bedside Glucose 103 mg/dL (70-110)
[2021-04-24] MEDS: Ipratropium/Albuterol Sulfate 3 ML AMPUL.NEB INHALATION ×2 (06:44→20:17)
[2021-04-24] MEDS: DULoxetine Hcl 30 MG Capsule PO (09:39)
[2021-04-24] MEDS: Furosemide 40 MG Tablet PO (09:39)
[2021-04-24] MEDS: Pantoprazole Sodium 40 MG Tablet PO ×2 (09:39→21:18)
[2021-04-24] MEDS: amLODIPine 10 MG Tablet PO (09:40)
[2021-04-24] MEDS: Nepro Liquid 120 ML LIQUID PO ×4 (09:40→21:18)
--- NOTE | 2021-04-24 10:14 | PCM.PN.SRG ---
Subjective Subjective Pain has significantly improved for the patient. Positive flatus positive bowel movements Objective Data Objective Data Abdomen is soft no rebound guarding or peritoneal signs Vital Signs: Vital Signs Temp Pulse Resp BP Pulse Ox 98.6 F 73 16 125/59 H 99 04/24/21 05:15 04/24/21 07:11 04/24/21 05:15 04/24/21 05:26 04/24/21 05:15 Oxygen Flow Rate (L/min) 2 Oxygen Delivery Method Nasal Cannula Weight: 149 lb 14.629 oz Body Mass Index (BMI) 20.5 Intake & Output: Intake and Output for Last 24 Hours 04/22/21 04/23/21 04/24/21 23:59 23:59 23:59 Intake Total 1160 / 1360 1260 / 1260 120 / 120 Output Total 0 / 0 0 / 0 0 / 0 Balance 1160 / 1360 1260 / 1260 120 / 120 Lab / Micro Data Result Diagrams: 04/23/21 05:04 04/23/21 05:04 Labs: Laboratory Results - last 24 hr 04/23/21 11:08: POC Glucose 139 H 04/23/21 16:14: POC Glucose 108 04/23/21 22:20: POC Glucose 135 H 04/24/21 05:32: POC Glucose 103 Micro: Microbiology 04/20/21 13:51 Nasal Secretion SARS-CoV-2 Antigen (Rapid) - Final Assessment & Plan Assessment/Plan (1) Acute appendicitis: QUALIFIERS: Acute appendicitis type: unspecified acute appendicitis type Qualified Code(s): K35.80 - Unspecified acute appendicitis PLAN: Continued improvement. Await placement.
[2021-04-24] MEDS: Mirtazapine 15 MG Tablet 45 MG PO (21:17)
[2021-04-25] VITALS (14 sets, daily range): BP systolic 129–141; BP diastolic 59–69; PULSE 68–90; RESP 16–18; TEMP 36.3–37.6; O2SAT 96–99
[2021-04-25] MEDS: Gabapentin 300 MG Capsule PO ×3 (05:24→21:17)
[2021-04-25] MEDS: hydrALAZINE 50 MG Tablet 100 MG PO ×3 (05:25→21:17)
[2021-04-25] MEDS: Calcium Acetate 667 MG Capsule PO ×3 (05:25→21:17)
[2021-04-25] MEDS: Ipratropium/Albuterol Sulfate 3 ML AMPUL.NEB INHALATION ×2 (06:59→19:03)
--- NOTE | 2021-04-25 09:02 | CASEMGMT ---
SW received note that patient's first choice for SNF is [facility]. SW faxed referral to [facility] and also called talking to Teresa regarding referral. Await response. Evy Paredes MSW [facility]
--- NOTE | 2021-04-25 10:50 | CASEMGMT ---
MARIA GUADALUPE received a message to call patient's daughter. MARIA GUADALUPE called patient's daughter Salima back. She asked about detention for patient. MARIA GUADALUPE told her that SW was told their first choice is [facility]. She asked if it was too late to change and SW told her it is not. She said they would like [facility]. MARIA GUADALUPE clarified is [facility] first or [facility]. She said [facility] would be first then [facility]. MARIA GUADALUPE let her know MARIA GUADALUPE did send a referral to [facility], but MARIA GUADALUPE is waiting on them to get back to MARIA GUADALUPE regarding whether or not they can accept her. MARIA GUADALUPE told her when MARIA GUADALUPE hears something MARIA GUADALUPE can let them know. Evy Paredes GEOTHERMAL OPERATIONS ENGINEER [facility]
[2021-04-25] MEDS: amLODIPine 10 MG Tablet PO (10:58)
[2021-04-25] MEDS: Nepro Liquid 120 ML LIQUID PO ×2 (10:58→15:40)
[2021-04-25] MEDS: Pantoprazole Sodium 40 MG Tablet PO ×2 (10:58→21:17)
[2021-04-25] MEDS: Furosemide 40 MG Tablet PO (10:58)
--- NOTE | 2021-04-25 12:05 | CASEMGMT ---
MARIA GUADALUPE called [facility] and left a message for Teresa inquiring if they have made a decision on patient. Evy Paredes SHALE PROCESSING TECHNICIAN ROAD CLEANER
--- NOTE | 2021-04-25 13:35 | PCM.PN.REN ---
Subjective Subjective Seen in room, working with therapy. Denies any complaints. No overnight events. Objective Data Objective Data Vital Signs: Vital Signs Temp Pulse Resp BP Pulse Ox 97.6 F L 79 16 130/59 H 98 04/25/21 09:45 04/25/21 09:45 04/25/21 09:45 04/25/21 09:45 04/25/21 09:45 Oxygen Flow Rate (L/min) 2 Oxygen Delivery Method Nasal Cannula Weight: 68.2 kg Body Mass Index (BMI) 20.5 Intake & Output: Intake and Output for Last 24 Hours 04/23/21 04/24/21 04/25/21 23:59 23:59 23:59 Intake Total 1260 / 1260 600 / 840 360 / 360 Output Total 0 / 0 0 / 0 0 / 0 Balance 1260 / 1260 600 / 840 360 / 360 Lab / Micro Data Result Diagrams: 04/23/21 05:04 04/23/21 05:04 Micro: Microbiology 04/20/21 13:51 Nasal Secretion SARS-CoV-2 Antigen (Rapid) - Final Physical Exam Narrative Head is normocephalic, atraumatic Respiratory; lung sounds clear anteriorly and posteriorly Cardiovascular; S1-S2 noted, rhythm controlled No edema Abdomen; soft, positive bowel sounds Tunneled hemodialysis catheter, dressing clean dry and intact Assessment & Plan Assessment/Plan (1) Acute appendicitis: QUALIFIERS: Acute appendicitis type: unspecified acute appendicitis type Qualified Code(s): K35.80 - Unspecified acute appendicitis (2) ESRD (end stage renal disease): (3) AF (paroxysmal atrial fibrillation): (4) Anemia in chronic kidney disease (CKD): QUALIFIERS: Chronic kidney disease stage: on chronic dialysis Qualified Code(s): N18.6 - End stage renal disease; D63.1 - Anemia in chronic kidney disease; Z99.2 - Dependence on renal dialysis PLAN: - ESRD on hemodialysis Sunday. To have dialysis today over 3.5 hours, 3kbath, UF as blood pressure/patient tolerates. Weight today 68kg??, previous 63/65kg, admission weight 61kg. Outpatient edw was 62.5kg. -Surgery team following for acute appendicitis and she is status post laparoscopic appendectomy 04/21. -History of A. fib/DVT, Eliquis on hold and to resume when cleared by surgery. Off atenolol -last hemoglobin at goal. Patient last received 225 mcg of Micera on April 08 at the kidney center. Patient does not need ANGELI. We will continue to monitor hemoglobin trends. -Blood pressures acceptable, at goal on amlodipine, hydralazine. Heart rate is better off atenolol - nepro ordered - continue phoslo and will monitor phos trends. - discharge planning to [facility] for rehab.
--- NOTE | 2021-04-25 13:59 | PN.SURG_ITS ---
Subjective Subjective Patient was seen and examined during AM rounds. She is found sleeping but when she arouses she states that she is doing little better each day. She states that her abdominal pain is much improved on the right side but she continues to have some incisional pain. She confirms that she is tolerating a regular diet with bowel movements. Objective Data Objective Data Vital Signs: Vital Signs Temp Pulse Resp BP Pulse Ox 97.6 F L 79 16 130/59 H 98 04/25/21 09:45 04/25/21 09:45 04/25/21 09:45 04/25/21 09:45 04/25/21 09:45 Oxygen Flow Rate (L/min) 2 Oxygen Delivery Method Nasal Cannula Weight: 150 lb 5.684 oz Body Mass Index (BMI) 20.5 Intake & Output: Intake and Output for Last 24 Hours 04/23/21 04/24/21 04/25/21 23:59 23:59 23:59 Intake Total 1260 / 1260 600 / 840 360 / 360 Output Total 0 / 0 0 / 0 0 / 0 Balance 1260 / 1260 600 / 840 360 / 360 Lab / Micro Data Result Diagrams: 04/23/21 05:04 04/23/21 05:04 Micro: Microbiology 04/20/21 13:51 Nasal Secretion SARS-CoV-2 Antigen (Rapid) - Final Physical Exam Resp normal respiratory effort GI GI Narrative: Intact beneath Steri-Strips. There is no drainage from the wounds.Mildly distended, soft, tender to palpation about the port site incisions. The bandages are removed and Assessment & Plan Assessment/Plan (1) Acute appendicitis: QUALIFIERS: Acute appendicitis type: unspecified acute appen dicitis type Qualified Code(s): K35.80 - Unspecified acute appendicitis PLAN: Status post laparoscopic appendectomy last week. Patient recovering as expected. Her incisions look appropriate. I would like to see the patient back in follow-up in approximately 1 week to review healing. Currently she is awaiting placement for post hospital discharge strengthening. (She does state that the lower extremity weakness she complained of immediately postop is now improved). Charges/Coding Visit Charges Inpatient E&M: 90267 Subs Hosp L2
--- NOTE | 2021-04-25 14:05 | CASEMGMT ---
MARIA GUADALUPE called [facility] again and left a voice mail about referral. MARIA GUADALUPE looked and [facility] is not in network with patient's insurance. MARIA GUADALUPE called patient's daughter back and left her a voice mail letting her know this information. Evy Paredes WEIGHT LOSS PHYSICIAN [facility]
[2021-04-25] MEDS: oxyCODONE 5 MG Tablet PO (15:37)
[2021-04-25] MEDS: DULoxetine Hcl 30 MG Capsule PO (15:49)
--- NOTE | 2021-04-25 15:50 | CASEMGMT ---
SW received a return call from patient's daughter. She said she is in agreement with patient's original second choice of [facility]. SW let her know SW is still waiting on [facility] to return SW's call. MARIA GUADALUPE told her when MARIA GUADALUPE hears something SW will let them know. Evy Paredes FILM PROCESS OPERATOR [facility]
[2021-04-25] MEDS: Heparin 10,000 UNITS/10 ML Vial IV (18:27)
--- NOTE | 2021-04-25 18:38 | DIALYSIS ---
HD discontinued 9 minutes early due to system clotting. Dr. Felix is aware. Ran on 3k bath. No fluid removed. Used right chest wall dialysis catheter. Lumens closed with heparin per fill volume. Caps placed. Dressing is dry and intact. See tx sheet for more details. Report was given to REGGIE Tamez.
[2021-04-25] MEDS: Calcitriol 0.25 MCG Capsule 1.5 MCG PO (19:07)
[2021-04-25] MEDS: Acetaminophen 325 MG Tablet 650 MG PO (19:59)
[2021-04-25] MEDS: Mirtazapine 15 MG Tablet 45 MG PO (21:17)
[2021-04-26] VITALS (15 sets, daily range): BP systolic 124–151; BP diastolic 54–71; PULSE 65–78; RESP 14–18; TEMP 36.2–36.6; O2SAT 98–100
[2021-04-26] MEDS: Calcium Acetate 667 MG Capsule PO ×3 (05:18→21:29)
[2021-04-26] MEDS: Gabapentin 300 MG Capsule PO ×3 (05:18→21:29)
[2021-04-26] MEDS: hydrALAZINE 50 MG Tablet 100 MG PO ×3 (05:18→21:29)
[2021-04-26] MEDS: Acetaminophen 325 MG Tablet 650 MG PO ×4 (05:24→21:26)
[2021-04-26] MEDS: oxyCODONE 5 MG Tablet PO ×4 (05:28→21:27)
[2021-04-26] MEDS: Ipratropium/Albuterol Sulfate 3 ML AMPUL.NEB INHALATION ×3 (07:13→19:10)
--- NOTE | 2021-04-26 07:46 | PCM.PN.SRG ---
Subjective Subjective Patient seen and examined during rounds. She is wide-awake and watching television. She states that she is having minimal abdominal discomfort?and believes most of this is her chronic pains. She continues to tolerate a diet and have regular bowel function. She again confirms that her lower extremity weakness concerns from last week are resolved. Objective Data Objective Data Vital Signs: Vital Signs Temp Pulse Resp BP Pulse Ox 97.8 F 76 16 149/69 H 98 04/26/21 05:16 04/26/21 07:21 04/26/21 07:13 04/26/21 05:18 04/26/21 07:13 Oxygen Flow Rate (L/min) 1.5 Oxygen Delivery Method Nasal Cannula Weight: 151 lb 7.321 oz Body Mass Index (BMI) 20.5 Intake & Output: Intake and Output for Last 24 Hours 04/24/21 04/25/21 04/26/21 23:59 23:59 23:59 Intake Total 600 / 840 360 / 600 480 / 480 Output Total 0 / 0 0 / 0 0 / 0 Balance 600 / 840 360 / 600 480 / 480 Lab / Micro Data Result Diagrams: 04/23/21 05:04 04/23/21 05:04 Micro: Microbiology 04/20/21 13:51 Nasal Secretion SARS-CoV-2 Antigen (Rapid) - Final Physical Exam Const oriented x3 and no apparent distress GI GI Narrative: Mildly distended, soft, minimally tender about right lower quadrant incision sites which are covered with Steri-Strips. There is no drainage or erythema about the port sites. Assessment & Plan Assessment/Plan (1) Acute appendicitis: QUALIFIERS: Acute appendicitis type: unspecified acute appendicitis type Qualified Code(s): K35.80 - Unspecified acute appendicitis PLAN: Status post laparoscopic appendectomy last week. Patient recovering as expected and states that she is back to her baseline with respect to her abdominal discomfort. Her incisions look appropriate. I would like to see the patient back in follow-up in approximately 1 week to review healing. Currently she is awaiting placement for post hospital discharge strengthening. (She does state that the lower extremity weakness she complained of immediately postop is now improved). Charges/Coding Visit Charges Inpatient E&M: 31725 Subs Hosp L2
--- NOTE | 2021-04-26 07:53 | TREXTCAR_ITS ---
Diet 04/22/21 07:44 Diet: Regular - General Dietary Modifications:: Phosphorus Restricted Sodium Restricted Is pt able to select menu?: Yes Diet Comments: no carbonation Routine Orders/Code Status O2 Liters per Minute: 1-2 O2 Frequency: Continuous Wound(s) ABD: Wound Type: Surgical Incision (Remove steri-strips in 1 week) Therapies Weight Bearing: Full weight bearing Physical Therapy: Eval and Treat Occupational Therapy: Eval and Treat Problem/Diagnosis (1) Acute appendicitis: Status: Acute Allergies/Procedures Done in Hospital Allergies No Known Allergies Allergy (Verified 04/19/21 21:14) Type of Care/Length of Stay Estimated LOS: Convalescent Care Less Than 30 days Type of Care Needed: Skilled Rehab Potential: Good Prognosis: Good Additional Orders/Day of Discharge Day of Discharge: 04/27/21 Dietary and Speech Recommendations Dietitian Recommendations/Changes: continue regular- phos restricted diet and 120mL Nepro CarbSteady ONS 4x/day w/ medpass for additional calories/protein if consumed. Will add sodium restriction given ESRD. Follow Up Care Please Follow Up With: Kaushal Ruiz MD When: 1 week. Please call [phone] for an appointment. Discharge Plan Admission Admit Date/Time: 04/20/21 06:50 Primary Reason for Your Visit: Acute appendicitis Attending Provider: Sixto Montoya Primary Care Provider: Shar Greene Consulting Providers: Brittani Byrne Discharge Orders/Prescriptions Prescriptions: Continued hydralazine 100 MG tablet 100 mg PO TID RF: 0 duloxetine 30 MG capsule 30 mg PO DAILY RF: 0 gabapentin 100 MG capsule 300 mg PO TID RF: 0 amlodipine 10 mg Tablet 10 mg PO DAILY RF: 0 calcium acetate(phosphat bind) 667 mg Capsule 667 mg PO TID RF: 0 oxycodone 5 mg Tablet, Oral Only 10 mg PO Q6H PRN (Reason: Pain) RF: 0 docusate sodium [Colace] 100 mg capsule 200 mg PO BID PRN (Reason: Constipation) RF: 0 lactulose 20 gram/30 mL solution 30 ml PO DAILY PRN (Reason: Constipation) RF: 0 mirtazapine 45 mg Tablet 45 mg PO QHS RF: 0 Eliquis 2.5 mg Tablet 2.5 mg PO BID RF: 0 albuterol sulfate 2.5 mg /3 mL (0.083 %) solution for nebulization 2.5 mg inhalation Q6H PRN (Reason: shortness of breath or wheezing) Qty: 25 RF: 0 dicyclomine 20 mg tablet 20 mg PO TID RF: 0 furosemide [Lasix] 40 mg tablet 40 mg PO DAILY Qty: 30 RF: 0 pantoprazole 40 MG tablet 40 mg PO BID Qty: 60 RF: 0 atenolol 50 mg Tablet 50 mg PO DAILY Qty: 30 RF: 0 Referrals / Follow Up: Shar Greene MD [Primary Care Provider] - Disposition Disposition (needs filled in before D/C Order can be placed): [facility]
--- NOTE | 2021-04-26 08:03 | DCINST_ITS ---
Discharge Instructions Diet Discharge Diet: Renal Diet Activity Lifting Restrictions: No lifting greater than 15 pounds for 2 weeks Dressing / Incision Call your doctor if your incision/area has: Continuous Slow Oozing, Sudden I ncreased Bleeding, Increased Pain/ Swelling, Increased Redness, Foul Smelling Discharge and Swelling at the incision site Call your doctor if you observe: Fever of 101 or Higher Remove Dressing in: 1 week Cleanse incision/area with: Soap & Water Follow Up Care Please Follow Up With: Kaushal Ruiz MD When: 2 weeks. Please call [phone] for an appointment. Test Results: Test results from this visit will be discussed in further detail at your follow-up appointment, if applicable. Discharge Plan Admission Admit Date/Time: 04/20/21 06:50 Primary Reason for Your Visit: Acute appendicitis Attending Provider: Sixto Montoya Primary Care Provider: Shar Greene Consulting Providers: Brittani Byrne Discharge Orders/Prescriptions Prescriptions: Continued hydralazine 100 MG tablet 100 mg PO TID RF: 0 duloxetine 30 MG capsule 30 mg PO DAILY RF: 0 gabapentin 100 MG capsule 300 mg PO TID RF: 0 amlodipine 10 mg Tablet 10 mg PO DAILY RF: 0 calcium acetate(phosphat bind) 667 mg Capsule 667 mg PO TID RF: 0 oxycodone 5 mg Tablet, Oral Only 10 mg PO Q6H PRN (Reason: Pain) RF: 0 docusate sodium [Colace] 100 mg capsule 200 mg PO BID PRN (Reason: Constipation) RF: 0 lactulose 20 gram/30 mL solution 30 ml PO DAILY PRN (Reason: Constipation) RF: 0 mirtazapine 45 mg Tablet 45 mg PO QHS RF: 0 Eliquis 2.5 mg Tablet 2.5 mg PO BID RF: 0 albuterol sulfate 2.5 mg /3 mL (0.083 %) solution for nebulization 2.5 mg inhalation Q6H PRN (Reason: shortness of breath or wheezing) Qty: 25 RF: 0 dicyclomine 20 mg tablet 20 mg PO TID RF: 0 furosemide [Lasix] 40 mg tablet 40 mg PO DAILY Qty: 30 RF: 0 pantoprazole 40 MG tablet 40 mg PO BID Qty: 60 RF: 0 atenolol 50 mg Tablet 50 mg PO DAILY Qty: 30 RF: 0 Referrals / Follow Up: Shar Greene MD [Primary Care Provider] - Disposition Disposition (needs filled in before D/C Order can be placed): Nursing Home Facility
--- NOTE | 2021-04-26 08:08 | PCM.DC.SUM ---
Providers Date of Admission: 04/20/21 Primary Care Physician: Dr. Shar Greene MD Consultations 04/20/21 05:03 Consult: Nephrology Routine Consulting Provider: Brittani Byrne Reason for Consult: ESRD on HD, admit w/ acute appendicits per Dr. Ruiz. EMERGENT Consult: No MD Notified: Yes Date Notified: 04/20/21 Time Notified: 05:05 Method of Notification: Verbal Reason For Visit: ACUTE APPENDICITIS Diagnosis Discharge Diagnosis (1) Acute appendicitis: Status: Acute Code(s): K35.80 - Unspecified acute appendicitis Qualifiers: Acute appendicitis type: unspecified acute appendicitis type Qualified Code(s): K35.80 - Unspecified acute appendicitis Medications at Discharge Home Medications duloxetine 30 mg PO DAILY 03/31/20 hydralazine 100 mg PO TID 03/31/20 gabapentin 300 mg PO TID 10/08/20 amlodipine 10 mg PO DAILY 11/30/20 calcium acetate(phosphat bind) 667 mg PO TID 11/30/20 oxycodone 10 mg PO Q6H PRN 11/30/20 docusate sodium [Colace] 200 mg PO BID PRN 12/02/20 lactulose 30 ml PO DAILY PRN 12/02/20 Eliquis 2.5 mg PO BID 01/08/21 albuterol sulfate 2.5 mg INHALATION Q6H PRN #25 vial 01/08/21 mirtazapine 45 mg PO QHS 01/08/21 dicyclomine 20 mg PO TID 02/26/21 furosemide [Lasix] 40 mg PO DAILY #30 tab 03/12/21 pantoprazole 40 mg PO BID #60 tab 03/12/21 atenolol 50 mg PO DAILY #30 tab 03/21/21 Hospital Course Operations appendectomy Summary of Care Provided Hospital Course: Patient is a 71 y/o F who presented to the ED with abdominal pain localized in the right lower quadrant. CT scan of the ab/pelvis was obtained and demonstrated acute uncomplicated appendicitis. Patient's Eliquis was held. Dr. Ruiz performed a laparoscopic appendectomy on 04/21/21. Patient tolerated the procedure well. Patient had developed bilateral lower extremity weakness on POD #2. Physical therapy and occupational therapy was ordered. Patient's bilateral lower extremity weakness had resolved. Patient and her family decided to be discharged to a rehab facility for strengthening. Patient met criteria for discharge on Sunday, 04/25, however there have been difficulty finding placement for her. [facility] accepted the patient. Upon discharge, patient noted incisional discomfort. She was tolerating a regular diet without nausea, vomiting. She denies concerns with her bowel habits. She is to follow-up with Dr. Ruiz in 1 week. Physical Exam Const General Appearance: cooperative, comfortable, well kempt and well developed HEENT normocephalic Eyes PERRL Neck full ROM Lymph Lymphatic: no lymphadenopathy noted GI soft to palpation GI Narrative: Slight amount of abdominal distention. Tenderness at the incision sites. Auscultation: normoactive bowel sounds Weight / BMI Weight Weight: 151 lb 7.321 oz Body Mass Index (BMI) 20.5 ABG / Lab / Microbiology Data Result Diagrams: 04/23/21 05:04 04/23/21 05:04 Microbiology: Microbiology 04/20/21 13:51 Nasal Secretion SARS-CoV-2 Antigen (Rapid) - Final D/C Instructions Discharge Diet: Renal Diet Call your doctor if your incision/area has: Continuous Slow Oozing, Sudden Increased Bleeding, Increased Pain/ Swelling, Increased Redness, Foul Smelling Discharge and Swelling at the incision site Call your doctor if you observe: Fever of 101 or Higher Cleanse incision/area with: Soap & Water Please Follow Up With: Kaushal Ruiz MD When: 1 week. Please call [phone] for an appointment. Meaningful Use Info Meaningful Use Diagnoses (Choose all that apply): None applicable Discharge Plan Admission Admit Date/Time: 04/20/21 06:50 Primary Reason for Your Visit: Acute appendicitis Attending Provider: Sixto Montoya Primary Care Provider: Shar Greene Consulting Providers: Brittani Byrne Discharge Orders/Prescriptions Prescriptions: Continued hydralazine 100 MG tablet 100 mg PO TID RF: 0 duloxetine 30 MG capsule 30 mg PO DAILY RF: 0 gabapentin 100 MG capsule 300 mg PO TID RF: 0 amlodipine 10 mg Tablet 10 mg PO DAILY RF: 0 calcium acetate(phosphat bind) 667 mg Capsule 667 mg PO TID RF: 0 oxycodone 5 mg Tablet, Oral Only 10 mg PO Q6H PRN (Reason: Pain) RF: 0 docusate sodium [Colace] 100 mg capsule 200 mg PO BID PRN (Reason: Constipation) RF: 0 lactulose 20 gram/30 mL solution 30 ml PO DAILY PRN (Reason: Constipation) RF: 0 mirtazapine 45 mg Tablet 45 mg PO QHS RF: 0 Eliquis 2.5 mg Tablet 2.5 mg PO BID RF: 0 albuterol sulfate 2.5 mg /3 mL (0.083 %) solution for nebulization 2.5 mg inhalation Q6H PRN (Reason: shortness of breath or wheezing) Qty: 25 RF: 0 dicyclomine 20 mg tablet 20 mg PO TID RF: 0 furosemide [Lasix] 40 mg tablet 40 mg PO DAILY Qty: 30 RF: 0 pantoprazole 40 MG tablet 40 mg PO BID Qty: 60 RF: 0 atenolol 50 mg Tablet 50 mg PO DAILY Qty: 30 RF: 0 Referrals / Follow Up: Shar Greene MD [Primary Care Provider] - Disposition Disposition (needs filled in before D/C Order can be placed): Long-Term Facility Charges/Coding Visit Charges Inpatient E&M: 39662 Disch Hosp (no charge)
--- NOTE | 2021-04-26 09:02 | CASEMGMT ---
MARIA GUADALUPE faxed referral to Marlene with [facility]. MARIA GUADALUPE left a message for Marlene. MARIA GUADALUPE also called [facility] and left another message requesting a return call regarding referral. Evy GONZALEZ
[2021-04-26] MEDS: Furosemide 40 MG Tablet PO (09:26)
[2021-04-26] MEDS: amLODIPine 10 MG Tablet PO (09:26)
[2021-04-26] MEDS: Nepro Liquid 120 ML LIQUID PO ×3 (09:26→17:25)
[2021-04-26] MEDS: Pantoprazole Sodium 40 MG Tablet PO ×2 (09:26→21:29)
--- NOTE | 2021-04-26 10:54 | CASEMGMT ---
MARIA GUADALUPE received a call from [facility] and [facility] can take patient. MARIA GUADALUPE told her SW is waiting on [facility] to get back to as that is patient's first choice. SW has however, been waiting since Sunday 9am for [facility] to get back to and patient is ready for discharge and she needs a pre-cert. Marlene said she will start the pre-cert and if [facility] can take her she will cancel the pre-cert. MARIA GUADALUPE told her that would be fine. MARIA GUADALUPE then called [facility] again and spoke to Alison. She said the referral was never looked at yesterday so she just sent it to the team. She did say that since patient is on dialysis she is not sure they will be able to accept her. She will let MARIA GUADALUPE know when she finds out. Evy GONZALEZ
[2021-04-26] MEDS: DULoxetine Hcl 30 MG Capsule PO (11:36)
--- NOTE | 2021-04-26 11:40 | CASEMGMT ---
MARIA GUADALUPE received a voice mail from Alison at [facility] and they cannot accept patient. MARIA GUADALUPE called Marlene with [facility] and left her a voice mail letting her know patient will be coming to [facility] as [facility] said no. Await insurance authorization for [facility]. Evy Paredes SAND WHEELER CARLOS
--- NOTE | 2021-04-26 11:53 | CASEMGMT ---
SW let patient notify patient about [facility] declining and [facility] accepting. MARIA GUADALUPE told her we will have to wait on insurance to approve her. She seemed upset and had a tear coming down her face. SW asked her if she was okay and she said they found her niece today. SW offered condolences. Patient said she was saying a prayer when SW walked in. SW asked if she would like the storage brine worker to come say a prayer with her. She said she would like that. MARIA GUADALUPE left a message for hospital storage brine worker. SW also called patient's daughter Salima and let her know above. Plan: [facility] pending insurance approval. Likely will not be today. Evy Paredes DOCTOR OF NAPRAPATHIC MEDICINE CARLOS
--- NOTE | 2021-04-26 16:52 | CHAPLAIN ---
Type of Pastoral Visit _x__ Initial Visit ___ Follow-up Visit ___ On-call Visit ___ General Patient Visit ___ Spiritual Assessment ___ Family Conference ___ Bereavement ___ Rapid Response ___ Code Blue ___ Other (describe below) Pastoral Care Referral From _x__ Patient ___ Family ___ Nurse ___ Physician _x__ Analysis Or Research Safety Inspector ___ Tobacco Sizer ___ Other (describe below) Sacrament/Intervention _x__ Active listening ___ Anointing ___ Religious _x__ Bereavement ___ Communion _x__ Flaca exploration ___ _x__ Life review _x__ Prayer ___ Reconciliation ___ Sacrament of Sick _x__ Supportive presence ___ Wedding ___ Other (describe below) Pastoral Comments notified by SW that patient learned of of her niece today; came to visit with pt and she welcomed the support; pt states that she helped to raise her niece after her mother and was close to the ; pt will not be able to attend services which will be out of state and that is difficult for pt to accept; pt has flaca in God and relies on her flaca to see her through the trials; pt talked about niece; pt requested prayer support; gave time and presence
[2021-04-26] MEDS: Mirtazapine 15 MG Tablet 45 MG PO (21:28)
[2021-04-27] VITALS (18 sets, daily range): BP systolic 118–150; BP diastolic 60–78; PULSE 68–90; RESP 13–20; TEMP 36.6–37.6; O2SAT 96–100
[2021-04-27] MEDS: Gabapentin 300 MG Capsule PO ×3 (05:19→21:13)
[2021-04-27] MEDS: hydrALAZINE 50 MG Tablet 100 MG PO ×3 (05:19→21:13)
[2021-04-27] MEDS: Calcium Acetate 667 MG Capsule PO ×3 (05:19→21:12)
[2021-04-27] MEDS: oxyCODONE 5 MG Tablet PO ×3 (05:26→21:19)
[2021-04-27] MEDS: Ipratropium/Albuterol Sulfate 3 ML AMPUL.NEB INHALATION ×3 (06:41→19:02)
[2021-04-27] MEDS: Acetaminophen 325 MG Tablet 650 MG PO ×2 (08:44→21:19)
[2021-04-27] MEDS: amLODIPine 10 MG Tablet PO (08:45)
[2021-04-27] MEDS: Pantoprazole Sodium 40 MG Tablet PO ×2 (08:45→21:13)
[2021-04-27] MEDS: Nepro Liquid 120 ML LIQUID PO ×4 (08:46→21:12)
[2021-04-27] MEDS: DULoxetine Hcl 30 MG Capsule PO (08:46)
[2021-04-27] MEDS: Furosemide 40 MG Tablet PO (08:48)
--- NOTE | 2021-04-27 10:39 | CASEMGMT ---
MARIA GUADALUPE called Marlene with [facility] and insurance has not responded with approval or denial yet. Evy Paredes INDUSTRIAL STAFF NURSE TODDLER NANNY
--- NOTE | 2021-04-27 10:59 | PCM.PN.SRG ---
Subjective Subjective Patient seen and examined during AM rounds. She reports no acute issues overnight. Case management updated that patient has been accepted at a long-term facility has been awaiting insurance approval. Patient states that her abdominal pain is minimal and she continues to tolerated diet without nausea or vomiting but with regular bowel function. Objective Data Objective Data Vital Signs: Vital Signs Temp Pulse Resp BP Pulse Ox 98.4 F 83 16 150/78 H 96 04/27/21 05:22 04/27/21 07:22 04/27/21 06:41 04/27/21 05:22 04/27/21 08:26 Oxygen Flow Rate (L/min) 2 Oxygen Delivery Method Nasal Cannula Weight: 149 lb 7.574 oz Body Mass Index (BMI) 20.5 Intake & Output: Intake and Output for Last 24 Hours 04/25/21 04/26/21 04/27/21 23:59 23:59 23:59 Intake Total 360 / 600 1220 / 1340 120 / 120 Output Total 0 / 0 0 / 0 Balance 360 / 600 1220 / 1340 120 / 120 Lab / Micro Data Result Diagrams: 04/23/21 05:04 04/23/21 05:04 Micro: Microbiology 04/20/21 13:51 Nasal Secretion SARS-CoV-2 Antigen (Rapid) - Final Physical Exam Const no apparent distress GI GI Narrative: Mildly distended, port sites remain covered with Steri-Strips in the right lower quadrant. Patient's abdomen is soft and appropriately tender to palpation about port sites only Assessment & Plan Assessment/Plan (1) Acute appendicitis: QUALIFIERS: Acute appendicitis type: unspecified acute appendicitis type Qualified Code(s): K35.80 - Unspecified acute appendicitis PLAN: Status post laparoscopic appendectomy last week. Patient recovering as expected and states that she is back to her baseline with respect to her abdominal discomfort. Her incisions and exam are appropriate. I would like to see the patient back in follow-up in approximately 1 week to review healing. Currently she is awaiting insurance approval for SNF placement post?discharge. Charges/Coding Visit Charges Inpatient E&M: 12716 Subs Hosp L2
--- NOTE | 2021-04-27 12:06 | PN.RENAL_ITS ---
Subjective Subjective Seen and examined on dialysis. No complaints. No overnight events. Objective Data Objective Data Vital Signs: Vital Signs Temp Pulse Resp BP Pulse Ox 98.4 F 90 16 150/78 H 96 04/27/21 05:22 04/27/21 10:57 04/27/21 06:41 04/27/21 05:22 04/27/21 08:26 Oxygen Flow Rate (L/min) 2 Oxygen Delivery Method Nasal Cannula Weight: 67.8 kg Body Mass Index (BMI) 20.5 Intake & Output: Intake and Output for Last 24 Hours 04/25/21 04/26/21 04/27/21 23:59 23:59 23:59 Intake Total 360 / 600 1220 / 1340 120 / 120 Output Total 0 / 0 0 / 0 Balance 360 / 600 1220 / 1340 120 / 120 Lab / Micro Data Result Diagrams: 04/23/21 05:04 04/23/21 05:04 Micro: Microbiology 04/20/21 13:51 Nasal Secretion SARS-CoV-2 Antigen (Rapid) - Final Physical Exam Narrative Head is normocephalic, atraumatic Respiratory; lung sounds clear anteriorly and posteriorly Cardiovascular; S1-S2 noted, rhythm controlled No edema Abdomen; soft, positive bowel sounds Tunneled hemodialysis catheter, dressing clean dry and intact Assessment & Plan Assessment/Plan (1) Acute appendicitis: QUALIFIERS: Acute appendicitis type: unspecified acute appendicitis type Qualified Code(s): K35.80 - Unspecified acute appendicitis (2) ESRD (end stage renal disease): (3) AF (paroxysmal atrial fibrillation): (4) Anemia in chronic kidney disease (CKD): QUALIFIERS: Chronic kidney disease stage: on chronic dialysis Qualified Code(s): N18.6 - End stage renal disease; D63.1 - Anemia in chronic kidney disease; Z99.2 - Dependence on renal dialysis PLAN: - ESRD on hemodialysis Sunday. To have dialysis today over 3.5 hours, 3kbath, UF as blood pressure/patient tolerates, around 1 L. Outpatient edw was 62.5kg. -Surgery team following for acute appendicitis and she is status post la paroscopic appendectomy 04/21. -History of A. fib/DVT, Eliquis on hold and to resume when cleared by surgery. Off atenolol -last hemoglobin at goal. Patient last received 225 mcg of Micera on April 08 at the kidney center. Patient does not need ANGELI. We will continue to monitor hemoglobin trends. -Blood pressures acceptable, at goal on amlodipine, hydralazine. Heart rate is better off atenolol - nepro ordered - continue phoslo and will monitor phos trends. - discharge planning to [facility] for rehab.
[2021-04-27] MEDS: Heparin 10,000 UNITS/10 ML Vial 2000 UNITS IV (13:14)
[2021-04-27] MEDS: Heparin 10,000 UNITS/10 ML Vial IV (13:15)
--- NOTE | 2021-04-27 14:45 | DIALYSIS ---
Hemodialysis x 3.5hrs. -1000ml UF. Stable t/o. Tolerated well. CVC closed with heparin to each lumen fill volume. CVC dressing changed today. See HD flowsheet for tx details. Report to Galina PAREDES
[2021-04-27] MEDS: Mirtazapine 15 MG Tablet 45 MG PO (21:13)
[2021-04-27 21:36] LABS: Bedside Glucose 124 mg/dL (70-110)
[2021-04-28] VITALS (10 sets, daily range): BP systolic 116–142; BP diastolic 60–75; PULSE 72–89; RESP 14–22; TEMP 36.5–36.8; O2SAT 95–99
[2021-04-28] MEDS: Gabapentin 300 MG Capsule PO ×2 (05:19→15:12)
[2021-04-28] MEDS: hydrALAZINE 50 MG Tablet 100 MG PO ×2 (05:19→15:12)
[2021-04-28] MEDS: Calcium Acetate 667 MG Capsule PO ×2 (05:21→15:12)
[2021-04-28] MEDS: Ipratropium/Albuterol Sulfate 3 ML AMPUL.NEB INHALATION ×2 (07:20→14:18)
--- NOTE | 2021-04-28 08:58 | CASEMGMT ---
MARIA GUADALUPE received a call from Marlene with [facility]. Marlene said she spoke with an [facility] sales representative yesterday before she left. The lady at [facility] told her she will approve patient for admission to [facility] for 04-28. Marlene then said that this am [facility] called her and said [facility] is out of network. Marlene called [facility] 3 times before she accepted patient's referral and was told all 3 times that [facility] is in network. The lady from [facility] told her she will work on it and get back to Marlene. Marlene asked MARIA GUADALUPE to please send updated therapy notes for patient. MARIA GUADALUPE faxed updated therapy notes for patient to [facility]. Evy GONZALEZ
--- NOTE | 2021-04-28 09:18 | PCM.PN.REN ---
Subjective Subjective Resting in bed, no complaints. Denies abdominal pain or nausea. Objective Data Objective Data Vital Signs: Vital Signs Temp Pulse Resp BP Pulse Ox 97.7 F L 75 18 142/70 H 98 04/28/21 03:27 04/28/21 07:20 04/28/21 07:20 04/28/21 05:19 04/28/21 07:20 Oxygen Flow Rate (L/min) 1 Oxygen Delivery Method Nasal Cannula Weight: 69.5 kg Body Mass Index (BMI) 20.5 Intake & Output: Intake and Output for Last 24 Hours 04/26/21 04/27/21 04/28/21 23:59 23:59 23:59 Intake Total 1220 / 1340 1430 / 1430 240 / 240 Output Total 0 / 0 1000 / 1000 Balance 1220 / 1340 430 / 430 240 / 240 Lab / Micro Data Result Diagrams: 04/23/21 05:04 04/23/21 05:04 Labs: Laboratory Results - last 24 hr 04/27/21 21:11: POC Glucose 124 H Micro: Microbiology 04/20/21 13:51 Nasal Secretion SARS-CoV-2 Antigen (Rapid) - Final Physical Exam Narrative Head is normocephalic, atraumatic Respiratory; lung sounds clear anteriorly and posteriorly Cardiovascular; S1-S2 noted, rhythm controlled No edema Abdomen; soft, positive bowel sounds Tunneled hemodialysis catheter, dressing clean dry and intact Assessment & Plan Assessment/Plan (1) Acute appendicitis: QUALIFIERS: Acute appendicitis type: unspecified acute appendicitis type Qualified Code(s): K35.80 - Unspecified acute appendicitis (2) ESRD (end stage renal disease): (3) AF (paroxysmal atrial fibrillation): (4) Anemia in chronic kidney disease (CKD): QUALIFIERS: Chronic kidney disease stage: on chronic dialysis Qualified Code(s): N18.6 - End stage renal disease; D63.1 - Anemia in chronic kidney disease; Z99.2 - Dependence on renal dialysis PLAN: - ESRD on hemodialysis Sunday. To have dialysis tomorrow, no acute indication for WAISTBAND SETTER today. Tolerated HD yesterday with ~1L UF. Outpatient edw was 62.5kg. -Status post laparoscopic appendectomy 04/21. -History of A. fib/DVT, Eliquis on hold and to resume when cleared by surgery. Off atenolol -last hemoglobin at goal. Patient last received 225 mcg of Micera on April 08 at the kidney center. We will continue to monitor hemoglobin trends. -Blood pressures acceptable, at goal on amlodipine, hydralazine. Heart rate is better off atenolol - nepro ordered - continue phoslo and will monitor phos trends. - discharge planning to [facility] for rehab.
[2021-04-28] MEDS: Nepro Liquid 120 ML LIQUID PO ×2 (09:31→15:12)
[2021-04-28] MEDS: DULoxetine Hcl 30 MG Capsule PO (09:32)
[2021-04-28] MEDS: Furosemide 40 MG Tablet PO (09:32)
[2021-04-28] MEDS: amLODIPine 10 MG Tablet PO (09:33)
[2021-04-28] MEDS: Pantoprazole Sodium 40 MG Tablet PO (09:33)
[2021-04-28] MEDS: oxyCODONE 5 MG Tablet PO (11:26)
--- NOTE | 2021-04-28 14:02 | CASEMGMT ---
Addendum entered by Evy Paredes 04/28/21 14:18: REGGIE Goldberg from Palliative Care told SW to call [facility] when patient is discharged and they will prescribe her pain medication. SW called [facility] and was not able to talk to anyone in Palliative Care. MARIA GUADALUPE spoke with Maggie one of the nurses with Hospice and she will give Palliative Care the message. Evy GONZALEZ Original Note: MARIA GUADALUPE received a call from Marlene with [facility]. Marlene said [facility] will be in network with [facility] tomorrow (Sunday04-28-21). Patient has been approved by [facility], but patient cannot go to [facility] until tomorrow. However, patient has [facility] Medicaid and she can go to [facility] today under [facility]. Patient is medically ready for discharge today therefore the decision was made to send patient to [facility] today. SW completed convalescent on [facility]. MARIA GUADALUPE called [facility] to arrange wheelchair van transport to [facility]. SW was told by the [facility] employee representative that they are not the provider for transportation for patient's insurance or she does not have transportation benefits. Patient does have transportation benefits. Patient's transportation benefits have been utilized previously for transport to a care home. MARIA GUADALUPE called [facility] and arranged for patient to get picked up at 3p via [employer] van. MARIA GUADALUPE notified patient, RN, assistant secretary, Marlene with [facility], and patient's daughter Salima. Plan: d/c to [facility] under intermediate level of care on a convalescent stay. [facility] transported via [employer] van. Evy GONZALEZ
--- NOTE | 2021-04-28 15:04 | NURSING ---
report called to aisha connell-
== END 2021-04-28 15:30 | disposition skilled nursing facility (03) | DRG 341 ==
LOC: ED 04-20 04:43 → MS2 04-20 07:43 → PCU 04-20 16:40
PROVIDERS: Family Medicine; Internal Medicine; Nurse Practitioner Family; Admitting Provider Surgery; Emergency Provider Emergency Medicine; PCP Family Medicine; Visit Provider Family Medicine
PROC: 0DTJ4ZZ Resection of Appendix, Percutaneous Endoscopic Approach (ICD-10-PCS; CPT 44970; principal; 2021-04-21 13:50)
DX: K35.80 Unspecified acute appendicitis (principal); N18.6 End stage renal disease; I13.2 Hypertensive heart and chronic kidney disease with heart failure and with stage 5 chronic kidney disease, or end stage renal disease; I50.22 Chronic systolic (congestive) heart failure; J96.11 Chronic respiratory failure with hypoxia; E11.22 Type 2 diabetes mellitus with diabetic chronic kidney disease; D63.1 Anemia in chronic kidney disease; I48.0 Paroxysmal atrial fibrillation; I25.2 Old myocardial infarction; F32.A Depression, unspecified; F41.9 Anxiety disorder, unspecified; J44.9 Chronic obstructive pulmonary disease, unspecified; E78.5 Hyperlipidemia, unspecified; M19.90 Unspecified osteoarthritis, unspecified site; K21.9 Gastro-esophageal reflux disease without esophagitis; K59.09 Other constipation; I27.20 Pulmonary hypertension, unspecified; M62.81 Muscle weakness (generalized); R00.1 Bradycardia, unspecified; T44.7X5A Adverse effect of beta-adrenoreceptor antagonists, initial encounter; Z90.710 Acquired absence of both cervix and uterus; Z90.49 Acquired absence of other specified parts of digestive tract; Z79.01 Long term (current) use of anticoagulants; Z79.899 Other long term (current) drug therapy; Z87.891 Personal history of nicotine dependence; Z99.81 Dependence on supplemental oxygen; Z99.2 Dependence on renal dialysis; Z86.73 Personal history of transient ischemic attack (TIA), and cerebral infarction without residual deficits; Z86.718 Personal history of other venous thrombosis and embolism
CPT/HCPCS: 36415; 71045; 74176; 80048; 80053; 80076; 82962; 83690; 83735; 84100; 84443; 85025; 85610; 85730; 87426; 88304; 90937; 93005; 93306; 94640; 97110; 97162; 97166; 97530; 97535; 99251; 99285; 99406; J7030; J7040; A4216; G0257; G0463; J2405

== ENCOUNTER 2021-09-10 17:23 | Emergency (ER) | payer MEDICARE, MEDICAID, SELFPAY ==
[2021-09-10 17:23] VITALS: BP 173/68; PULSE 63; RESP 16; TEMP 36.1; O2SAT 96; BMI 20.7
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
--- NOTE | 2021-09-10 17:45 | ED.RN ---
Patient refusing to stay in room for registration and discharge instructions. Patient walking with walker in hallway to leave. Dr. Roy notified.
== END 2021-09-10 17:49 | disposition left against medical advice (07) ==
PROVIDERS: Emergency Provider Emergency Medicine; PCP Family Medicine; Visit Provider Emergency Medicine
DX: M79.652 Pain in left thigh (principal); I13.2 Hypertensive heart and chronic kidney disease with heart failure and with stage 5 chronic kidney disease, or end stage renal disease; J44.9 Chronic obstructive pulmonary disease, unspecified; I50.22 Chronic systolic (congestive) heart failure; E11.22 Type 2 diabetes mellitus with diabetic chronic kidney disease; N18.6 End stage renal disease; E78.00 Pure hypercholesterolemia, unspecified; I25.2 Old myocardial infarction; Z79.01 Long term (current) use of anticoagulants; Z79.899 Other long term (current) drug therapy; Z86.73 Personal history of transient ischemic attack (TIA), and cerebral infarction without residual deficits; Z86.718 Personal history of other venous thrombosis and embolism; Z87.891 Personal history of nicotine dependence
CPT/HCPCS: 99282

== ENCOUNTER 2021-09-14 21:50 | Emergency (ER) | payer MEDICARE, MEDICAID, SELFPAY ==
[2021-09-14 21:50] VITALS: BP 181/99; PULSE 57; RESP 18; TEMP 36; O2SAT 96; BMI 22.1
--- NOTE | 2021-09-14 22:30 | EKG12_ITS ---
Test Reason : HIGH K+ Blood Pressure : / mmHG Vent. Rate : 058 BPM Atrial Rate : 058 BPM P-R Int : 190 ms QRS Dur : 084 ms QT Int : 478 ms P-R-T Axes : 064 -06 084 degrees QTc Int : 469 ms Sinus bradycardia Nonspecific T wave abnormality Abnormal ECG Confirmed by BAHMAN LEMON, EDWINA ([id number]), industrial editor BIRDIE TORRES ([id number]) on 09/19/2021 8:57:43 AM Referred By: Confirmed By:SUAD RUGGIERO MD
[2021-09-14 23:15] LABS: Anion Gap 6 (5-15); BUN 27 mg/dL (7-18); BUN/Creat Ratio 6.8 RATIO (10-20); Calcium,Total 9.3 mg/dL (8.5-10.1); Chloride 100 mmol/L (98-107); Creatinine, Serum 3.95 mg/dL (0.55-1.02); EST Glomerular Filtration Rate 12 mL/min (>60); Est Glom Filt Rate - Afr Amer 15 mL/min (>60); Estimated Creatinine Clearance 14.05 ml/min; Glucose 138 mg/dL (74-106); Potassium 4.4 mmol/L (3.5-5.1); Sodium Level 139 mmol/L (136-145)
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
[2021-09-15 00:35] VITALS: RESP 18
[2021-09-15 00:42] VITALS: RESP 18
== END 2021-09-15 00:44 | disposition home or self-care (01) ==
LOC: ED 09-15 00:54
PROVIDERS: Emergency Medicine; Emergency Provider Emergency Medicine; PCP Family Medicine; Visit Provider Emergency Medicine
DX: I13.2 Hypertensive heart and chronic kidney disease with heart failure and with stage 5 chronic kidney disease, or end stage renal disease (principal); Z99.2 Dependence on renal dialysis; J44.9 Chronic obstructive pulmonary disease, unspecified; I50.22 Chronic systolic (congestive) heart failure; E11.22 Type 2 diabetes mellitus with diabetic chronic kidney disease; N18.6 End stage renal disease; I48.0 Paroxysmal atrial fibrillation; I25.2 Old myocardial infarction; E78.00 Pure hypercholesterolemia, unspecified; D63.1 Anemia in chronic kidney disease; K21.9 Gastro-esophageal reflux disease without esophagitis; F32.A Depression, unspecified; F41.9 Anxiety disorder, unspecified; Z79.01 Long term (current) use of anticoagulants; Z79.899 Other long term (current) drug therapy; Z86.73 Personal history of transient ischemic attack (TIA), and cerebral infarction without residual deficits; Z87.891 Personal history of nicotine dependence
CPT/HCPCS: 80048; 93005; 99283; A4216

== ENCOUNTER 2021-10-05 12:33 | Inpatient (IN) | payer MEDICARE, MEDICAID, SELFPAY ==
[2021-10-05] VITALS (19 sets, daily range): BP systolic 154–177; BP diastolic 60–73; PULSE 57–88; RESP 12–24; TEMP 36.6–37; O2SAT 93–100; BMI 24.0; BMI 23.1
--- NOTE | 2021-10-05 12:48 | EKG12_ITS ---
Test Reason : SOB/CP Blood Pressure : / mmHG Vent. Rate : 065 BPM Atrial Rate : 065 BPM P-R Int : 180 ms QRS Dur : 082 ms QT Int : 456 ms P-R-T Axes : 080 010 -20 degrees QTc Int : 474 ms Normal sinus rhythm Nonspecific T wave abnormality Abnormal ECG Confirmed by BRANDON LEMON, MACIE ([id number]), newspaper editor DEANNA LEMUS ([id number]) on 10/12/2021 12:24:23 PM Referred By: ZIA Confirmed By:MACIE TAYLOR MD
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
[2021-10-05] MEDS: Ipratropium/Albuterol Sulfate 3 ML AMPUL.NEB INHALATION ×3 (12:55→21:30)
--- NOTE | 2021-10-05 13:00 | RAD_ITS ---
STUDY: X-RAY CHEST REASON FOR EXAM: Female, 71 years old. Chest pain TECHNIQUE: Single AP portable view of the chest. COMPARISON: Comparison is made with prior study 04/20/2021. FINDINGS: A right-sided double catheter seen with the tip at the junction of the superior vena cava right atrium. EKG electrodes are seen. There now is evidence of small bilateral pleural effusions with bibasilar atelectasis right greater than left. This is superimposed on mild degree of CHF. There is mild cardiac enlargement. Normal mediastinum and farhan. Normal visualized pulmonary arteries. Normal visualized aortic arch and descending thoracic aorta. Normal visualized thoracic spine. Normal visualized ribs, clavicles, and shoulders. There is no demonstrated abnormality of the visualized soft tissue structures of the upper abdomen. RAD/Chest 1 View (Portable) IMPRESSION: Small bilateral pleural effusions with bibasilar atelectasis right greater than left. Mild degree of CHF. Electronically Signed: Lopez Barraza MD at 13:27 EDT ,
[2021-10-05 13:02] LABS: Absolute Neutrophil Count 3.7 X10^3/uL (2.0-7.7); Basophil# 0.04 X10^3/uL; Basophil% 0.6 % (0-1); Eosinophil# 0.16 X10^3/uL; Eosinophils% 2.4 % (0-5); Hematocrit 31.1 % (37-47); Hemoglobin 9.9 g/dL (12.0-15.0); Mean Corp Hgb Conc 31.8 g/dL (32-36); Mean Corpuscular Hgb 29.5 pg (27.0-32.0); Mean Corpuscular Volume 92.6 fL (81-99); Mean Platelet Vol. 9.3 fl (6.2-12.0); Monocyte# 0.72 X10^3/uL; Monocyte% 10.8 % (0-10); NRBC Flagged by Analyzer 0 % (0-5); Neutrophil # 3.72 X10^3/uL (2.7-7.7); Neutrophil % 55.8 % (47-70); Platelet Count 190 K/mm3 (150-450); RBC Distribution Width CV 16.6 % (11.6-14.6); RBC Distribution Width SD 54.9 fl (35.1-43.9); Red Blood Count 3.36 M/mm3 (4.2-5.4); White Blood Count 6.7 K/mm3 (4.4-11.0)
[2021-10-05 13:17] LABS: Anion Gap 2 (5-15); BUN 39 mg/dL (7-18); BUN/Creat Ratio 6.4 RATIO (10-20); Calcium,Total 8.9 mg/dL (8.5-10.1); Chloride 101 mmol/L (98-107); Creatinine, Serum 6.07 mg/dL (0.55-1.02); EST Glomerular Filtration Rate 7 mL/min (>60); Est Glom Filt Rate - Afr Amer 9 mL/min (>60); Estimated Creatinine Clearance 9.14 ml/min; Glucose 101 mg/dL (74-106); Potassium 4.7 mmol/L (3.5-5.1); Sodium Level 136 mmol/L (136-145); Troponin-I HS (w/2H Reflex) 15 pg/mL (3.0-54.0)
[2021-10-05 13:23] LABS: BNP,B-Type NATRIURETIC PEPTIDE 2939.4 pg/mL (0-100)
--- NOTE | 2021-10-05 14:55 | ED.RN ---
iv lasix ordered in ed. pt transported to floor prior to reveiving. pcu called and made aware. judy shrestha rn [id number]
[2021-10-05 14:56] LABS: Reflex Troponin-HS? (from REC) Y
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
[2021-10-05] MEDS: Furosemide 100 MG/10 ML Vial 80 MG IV (15:21)
[2021-10-05] MEDS: 0.9% Saline Lock 10 ML Syringe IV (15:21)
[2021-10-05 15:47] LABS: Troponin-I HS 16 pg/mL (3.0-54.0)
--- NOTE | 2021-10-05 16:30 | CM.ED ---
RN CM Assessment Introduced role of RN CM to patient vadim Springer via phone as Patient was on Bipap in ER and no family at bedside.? Patient vadim Borrego agreeable and able?to participate in RN CM Assessment. ?Care providers, pharmacy, and demographics verified. Admit Dx: IP for Acute Hypoxic Respiratory Failure Re-Admit: No Barriers/Issues: None. Patient resides at [facility], On HD with [facility] M/W/F start time 1110, [facility] [employer] [facility]. PCP: Shar Greene but dtr Salima unsure as they were supposed to switch patient to a PCP that rounds with [facility] Specialists: Vadim Borrego unsure as thinks all doctors are supposed to be through [facility] Preferred Pharmacy: [facility] medications are sent to [facility] and denies her picking them up to deliver to [facility] Insurance: Jp Patterson, [facility] CP Rx Benefit:?Yes LNOK: Vadim Springer LW/HPOA: Both on file with [facility]. HPOA- dtr Salima Springer and alternative is niece Sarah Fract[facility] Living Arrangements:? Lives at [facility]. ADL?s: Ambulates with walker, Independent with ADLs but does need assistance at times depending how she is feeling. Facility provides meals or patient cooks. Transportation: [employer] or [facility]. Patient was taken by [facility] to [place] on last admit 04/28/21 via her [facility] coverage. DME: Home O2 with [employer] 2lpm at rest and 4lpm with exertion, has small portable tanks. Makr Salima denies any other DME. HHC: Past with [facility] for PT/OT/SN SNF: Past at [facility] Goal: TBD depending on how patient is doing at time of stability for hospital DC. Aware RNCM will continue to follow. DC PLAN: TBD. Return to [facility] with possible HH vs SNF, F/u Mobility and O2 requirements. RACHID Arroyo
[2021-10-05] MEDS: Calcium Acetate 667 MG Capsule 2001 MG PO (17:05)
[2021-10-05] MEDS: Dicyclomine 10 MG Capsule 20 MG PO (17:05)
[2021-10-05] MEDS: Folic Acid/Vitamin B Comp W-C 1 Capsule 1 CAP PO (17:06)
[2021-10-05] MEDS: Gabapentin 600 MG Tablet PO (17:06)
[2021-10-05 18:50] LABS: Troponin-I HS 17 pg/mL (3.0-54.0)
[2021-10-05] MEDS: Mirtazapine 30 MG Tablet 45 MG PO (21:09)
[2021-10-05] MEDS: hydrALAZINE 50 MG Tablet 100 MG PO (21:10)
[2021-10-05] MEDS: oxyCODONE 5 MG Tablet 10 MG PO (21:12)
[2021-10-05] MEDS: APIXABAN 2.5 MG TABLET PO (21:12)
[2021-10-05] MEDS: guaiFENesin 1,200 MG Tablet 1200 MG PO (21:12)
[2021-10-06] VITALS (18 sets, daily range): BP systolic 151–178; BP diastolic 65–77; PULSE 58–75; RESP 16–21; TEMP 35.6–36.9; O2SAT 98–100
[2021-10-06] MEDS: Ipratropium/Albuterol Sulfate 3 ML AMPUL.NEB INHALATION ×5 (02:52→23:20)
[2021-10-06 04:53] LABS: Absolute Lymphocyte Count 0.61 X10^3/uL (0.83-4.51); Absolute Neutrophil Count 3.9 X10^3/uL (2.0-7.7); Basophil# 0.01 X10^3/uL; Basophil% 0.2 % (0-1); Hematocrit 32.4 % (37-47); Hemoglobin 9.9 g/dL (12.0-15.0); Lymphocyte # 0.61 X10^3/ul (0.83-4.51); Mean Corp Hgb Conc 30.6 g/dL (32-36); Mean Corpuscular Hgb 29.5 pg (27.0-32.0); Mean Corpuscular Volume 96.4 fL (81-99); Mean Platelet Vol. 9.4 fl (6.2-12.0); Monocyte# 0.18 X10^3/uL; Monocyte% 3.8 % (0-10); NRBC Flagged by Analyzer 0.4 % (0-5); Neutrophil # 3.86 X10^3/uL (2.7-7.7); Neutrophil % 82.6 % (47-70); Platelet Count 183 K/mm3 (150-450); RBC Distribution Width CV 16.8 % (11.6-14.6); RBC Distribution Width SD 58.3 fl (35.1-43.9); Red Blood Count 3.36 M/mm3 (4.2-5.4); White Blood Count 4.7 K/mm3 (4.4-11.0)
[2021-10-06 05:55] LABS: ALB/GLOB Ratio 0.7 RATIO (0.9-2.4); AST(SGOT) 96 U/L (15-37); Alanine Aminotransfer ALT/SGPT 66 U/L (13-56); Albumin, Serum 3.1 g/dL (3.2-5.0); Alkaline Phosphatase 203 U/L (45-117); Anion Gap 7 (5-15); BUN 56 mg/dL (7-18); BUN/Creat Ratio 7.2 RATIO (10-20); Chloride 101 mmol/L (98-107); Creatinine, Serum 7.82 mg/dL (0.55-1.02); EST Glomerular Filtration Rate 5 mL/min (>60); Est Glom Filt Rate - Afr Amer 7 mL/min (>60); Globulin 4.5 g/dL (2.2-4.2); Glucose 186 mg/dL (74-106); Magnesium 2.5 mg/dL (1.6-2.6); Phosphorus 4.1 mg/dL (2.5-4.9); Potassium 5.4 mmol/L (3.5-5.1); Protein, Total 7.6 g/dL (6.4-8.2); Sodium Level 136 mmol/L (136-145)
[2021-10-06] MEDS: 0.9% Saline Lock 10 ML Syringe IV ×3 (06:09→23:12)
[2021-10-06] MEDS: hydrALAZINE 50 MG Tablet 100 MG PO ×2 (06:09→23:08)
[2021-10-06] MEDS: Dicyclomine 10 MG Capsule 20 MG PO ×3 (06:28→16:40)
[2021-10-06] MEDS: Calcium Acetate 667 MG Capsule 2001 MG PO ×3 (08:26→16:40)
--- NOTE | 2021-10-06 08:41 | PN.HOSP_ITS ---
Documented by User: Chantal Barrera [employer], [facility] 10/06/21 11:52 Subjective Subjective Patient seen and examined. Reports breathing is slightly improved. Continues to have significant wheezing. Patient reports intermittent nonproductive cough. Denies fever, chills. Objective Data Objective Data Vital Signs: Vital Signs Temp Pulse Resp BP Pulse Ox 96.0 F L 62 16 166/77 H 98 10/06/21 06:06 10/06/21 07:18 10/06/21 07:10 10/06/21 06:09 10/06/21 07:10 Oxygen Flow Rate (L/min) 3 Oxygen Delivery Method Nasal Cannula Weight: 156 lb 8.451 oz Body Mass Index (BMI) 23.1 Intake & Output: Intake and Output for Last 24 Hours 10/04/21 10/05/21 10/06/21 23:59 23:59 23:59 Intake Total 840 / 840 480 / 480 Output Total 0 / 0 Balance 840 / 840 480 / 480 Lab / Micro Data Result Diagrams: 10/06/21 04:16 10/06/21 04:16 Labs: Laboratory Results - last 24 hr 10/05/21 12:40: WBC 6.7, RBC 3.36 L, Hgb 9.9 L, Hct 31.1 L, MCV 92.6, MCH 29.5, MCHC 31.8 L, RDW Std Deviation 54.9 H, RDW Coeff of Destiny 16.6 H, Plt Count 190, MPV 9.3, Immature Gran % (Auto) 0.400, Neut % (Auto) 55.8, Lymph % (Auto) 30.0, [place] % (Auto) 10.8 H, Eos % (Auto) 2.4, Baso % (Auto) 0.6, Absolute Neuts (auto) 3.7, Absolute Lymphs (auto) 2.00, Nucleated RBC % 0 10/05/21 12:40: Sodium 136, Potassium 4.7, Chloride 101, Carbon Dioxide 33.0 H, Anion Gap 2 L, BUN 39 H, Creatinine 6.07 H, Estim Creat Clear Calc 9.14, Est GFR (MDRD) Af Amer 9 L, Est GFR (MDRD) Non-Af 7 L, BUN/Creatinine Ratio 6.4 L, Glucose 101, Calcium 8.9, Troponin I High Sens 15 10/05/21 12:40: B-Natriuretic Peptide 2939.4 H 10/05/21 15:22: Troponin I High Sens 16 10/05/21 18:19: Troponin I High Sens 17 10/06/21 04:16: WBC 4.7, RBC 3.36 L, Hgb 9.9 L, Hct 32.4 L, MCV 96.4, MCH 29.5, MCHC 30.6 L, RDW Std Deviation 58.3 H, RDW Coeff of Destiny 16.8 H, Plt Count 183, M PV 9.4, Immature Gran % (Auto) 0.400, Neut % (Auto) 82.6 H, Lymph % (Auto) 13.0 L, [place] % (Auto) 3.8, Eos % (Auto) 0.0, Baso % (Auto) 0.2, Absolute Neuts (auto) 3.9, Absolute Lymphs (auto) 0.61 L, Nucleated RBC % 0.4 10/06/21 04:16: Sodium 136, Potassium 5.4 H, Chloride 101, Carbon Dioxide 28.0, Anion Gap 7, BUN 56 H, Creatinine 7.82 H*, Estim Creat Clear Calc 7.10, Est GFR (MDRD) Af Amer 7 L, Est GFR (MDRD) Non-Af 5 L, BUN/Creatinine Ratio 7.2 L, Glucose 186 H, Calcium 9.0, Phosphorus 4.1, Magnesium 2.5, Total Bilirubin 0.60, AST 96 H, ALT 66 H, Alkaline Phosphatase 203 H, Total Protein 7.6, Albumin 3.1 L , Globulin 4.5 H, Albumin/Globulin Ratio 0.7 L Micro: Microbiology 10/05/21 15:10 Nasal Secretion SARS-CoV-2 & FLU Antigen (Rapid) - Final Radiography Diagnostic Testing: Radiology Impression Chest X-Ray 10/05/21 13:00 IMPRESSION: Small bilateral pleural effusions with bibasilar atelectasis right greater than left. Mild degree of CHF. Electronically Signed: Lopez Barraza MD at 13:27 EDT , Rhythm Strip Rhythm Strip: Sinus Rhythm Rate: 65 Physical Exam Const alert, oriented x3 and no apparent distress Orientation / Consciousness: awake, oriented to person, oriented to place and oriented to time HEENT normocephalic and moist oral mucous membranes Eyes PERRL, EOMs intact bilaterally and conjunctivae normal Neck no lymphadenopathy Resp Auscultation: wheezes and diminished lung sounds Cardio regular rate, regular rhythm and no murmurs Peripheral Pulses: pulses 2+ throughout GI normal to inspection, nondistended, normoactive bowel sounds, non-tender and non-distended Extremity normal to inspection Skin no rashes or lesions noted Lesions: no lesions Rashes: no rashes Trauma: no lacerations or abrasions Neuro CN's II-XII intact bilaterally, no focal motor deficits, no sensory deficits noted and deep tendon reflexes 2+ bilaterally Psych mental status grossly normal and affect normal Assessment & Plan Assessment/Plan (1) Acute respiratory failure with hypoxia: PLAN: 1. Acute exacerbation of chronic COPD with chronic hypoxic respiratory failure-flu and Covid negative. Continue supplemental oxygen to maintain O2 at or above 90%. Patient wears 2 to 4 L at baseline. IV Solu- Medrol. Albuterol and DuoNeb aerosols. Initially placed on BiPAP in the ED however not documented to be hypoxic. 2. Mild hyperkalemia-to undergo additional dialysis. Nephrology following. 3. Chronic heart failure with reduced ejection fraction-echocardiogram April 2021 with EF 55%. No longer on Lasix. Continue dialysis. 4. Paroxysmal atrial fibrillation-on atenolol, Eliquis 5. Chronic hypoxic respiratory failure secondary to chronic heart failure with reduced ejection fraction and chronic COPD-continue supplemental oxygen as noted above. 6. Anemia of chronic disease- stable, trend CBC. 7. End-stage renal disease on hemodialysis-nephrology consulted. 8. Hypertension-continue amlodipine, atenolol, hydralazine. 9. Hyperlipidemia-not on statin. 10. Anxiety/depression-on duloxetine, mirtazapine. 11. History of CVA-Eliquis. Not on aspirin, statin. 12. History of type 2 diabetes mellitus-hemoglobin A1c 12/01/2020 3.8%. 13. History of DVT-on Eliquis. 14. GERD-continue PPI. 15. Tobacco dependence-encouraged cessation. DVT prophylaxis-Eliquis This patient was seen by Chantal Barrera NP-C under the supervision of Dr. Wakefield. Time spent examining patient, reviewing data and subsequent management of care: 14 Minutes Documented by User: Dr. Shar Wakefield, 10/06/21 12:38 Objective Data Lab / Micro Data Result Diagrams: 10/06/21 04:16 10/06/21 04:16 Charges/Coding Addendum Addendum: Patient was seen and examined independently of Chantal Barrera, she does not complain of any shortness of breath at rest today, she is audibly wheezing. I talked briefly with nephrology about her care today, she will probably not undergo dialysis today. On examination she appeared in good health and spirits, she does not appear to be in any distress. Vital signs as documented. Skin warm and dry and without overt rashes. Neck without JVD, thyroid appears normal, trachea is midline, neck is supple. Lungs-diffuse expiratory wheezes bilaterally, normal air movement was noted. Heart exam notable for regular rhythm, normal sounds and absence of murmurs, rubs or gallops. Abdomen unremarkable and without evidence of organomegaly, masses, or abdominal aortic enlargement, bowel sounds are present in all 4 quadrants, no abdominal tenderness was noted. Extremities nonedematous, no cyanosis was noted, no clubbing was noted. Neuro: Cranial nerves II through XII are grossly intact, no focal motor deficits were noted, sensation to light touch and pinprick is intact, motor exam 5/5 throughout. Psych: Patient is alert and oriented x3, she does not appear anxious or depressed, she does not appear agitated. Impression: #1 exacerbation of COPD-continue IV corticosteroid, continue aerosol treatments #2 end-stage renal disease on dialysis-again patient probably will be dialyzed tomorrow #3 paroxysmal atrial fibrillation-patient is currently on Eliquis and rate control medication #4 essential hypertension-continue patient's current medications #5 chronic hypoxic respiratory failure-patient states that she usually uses anywhere from 2 to 4 L of oxygen via nasal cannula continuously at home-patient is currently on 3 L #6 chronic diastolic congestive heart failure-I do not believe the patient is in acute heart failure at this time #7 anemia of chronic renal disease-labs will be monitored, patient does not require blood transfusion at this time I have reviewed Chantal Barrera's progress note including her medical assessment and plan of care and with the above additions endorse it. Total clinical time spent by myself addressing the patient's issues, reviewing the patient's medical data, and collaborating with the patient's care team: 30 minutes Visit Charges Inpatient E&M: [id number] [facility] H[facility] L3
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
[2021-10-06] MEDS: DULoxetine Hcl 20 MG Capsule 40 MG PO (10:36)
[2021-10-06] MEDS: amLODIPine 10 MG Tablet PO (10:36)
[2021-10-06] MEDS: Pantoprazole Sodium 20 MG Tablet PO (10:36)
[2021-10-06] MEDS: Atenolol 50 MG Tablet PO (10:37)
[2021-10-06] MEDS: APIXABAN 2.5 MG TABLET PO ×2 (10:38→23:09)
[2021-10-06] MEDS: oxyCODONE 5 MG Tablet 10 MG PO ×2 (10:39→23:08)
[2021-10-06] MEDS: guaiFENesin 1,200 MG Tablet 1200 MG PO ×2 (10:44→23:09)
--- NOTE | 2021-10-06 11:03 | CASEMGMT ---
REGGIE FAN NOTE: Call placed to [facility]. [employer] human resources representative confirmed that pt's current Home O2 orders are 2l/m @ rest and 4 l/m w/exertion. Tanmay GARCIA RN CM
[2021-10-06] MEDS: Glucerna Shake 120 ML LIQUID PO ×3 (14:54→23:12)
[2021-10-06] MEDS: Gabapentin 300 MG Capsule PO (16:40)
--- NOTE | 2021-10-06 19:24 | NURSING ---
Agree with student nurse Jovita Whitten with student during med pass and assessments
--- NOTE | 2021-10-06 22:29 | DIALYSIS ---
Pt tolerated 3.5hr HD tx well. Net UF -2000ml. See flow record for tx data.
[2021-10-06] MEDS: Mirtazapine 30 MG Tablet 45 MG PO (23:09)
[2021-10-07] VITALS (19 sets, daily range): BP systolic 130–176; BP diastolic 69–100; PULSE 55–89; RESP 16–20; TEMP 36.1–36.8; O2SAT 94–100
[2021-10-07] MEDS: Ipratropium/Albuterol Sulfate 3 ML AMPUL.NEB INHALATION ×6 (03:18→23:02)
[2021-10-07] MEDS: hydrALAZINE 50 MG Tablet 100 MG PO ×3 (05:51→21:35)
[2021-10-07] MEDS: 0.9% Saline Lock 10 ML Syringe IV ×2 (05:51→21:34)
[2021-10-07] MEDS: Dicyclomine 10 MG Capsule 20 MG PO ×3 (06:35→16:33)
--- NOTE | 2021-10-07 06:38 | EKG12_ITS ---
Test Reason : CHEST PAIN Blood Pressure : / mmHG Vent. Rate : 062 BPM Atrial Rate : 062 BPM P-R Int : 174 ms QRS Dur : 082 ms QT Int : 440 ms P-R-T Axes : 070 -09 065 degrees QTc Int : 446 ms Normal sinus rhythm Normal ECG When compared with ECG of 05-OCT-2021 12:49, MANUAL COMPARISON REQUIRED, DATA IS UNCONFIRMED Confirmed by TERE LEMON, JAN ([id number]), editor producer BIRDIE TORRES ([id number]) on 10/13/2021 12:58:04 PM Referred By: KIMO CALDERON Confirmed By:JAN CARRANZA MD
--- NOTE | 2021-10-07 06:39 | NURSING ---
Pt complaining of chest pain. States it feels like bad indigestion or something. Vital signs obtained. Dr. Cai notified. EKG and maalox ordered.
[2021-10-07 06:40] LABS: Absolute Lymphocyte Count 0.62 X10^3/uL (0.83-4.51); Basophil# 0.01 X10^3/uL; Basophil% 0.1 % (0-1); Hematocrit 29.8 % (37-47); Hemoglobin 9.4 g/dL (12.0-15.0); Lymphocyte # 0.62 X10^3/ul (0.83-4.51); Lymphocyte % 6.2 % (19-41); Mean Corp Hgb Conc 31.5 g/dL (32-36); Mean Corpuscular Hgb 29.2 pg (27.0-32.0); Mean Corpuscular Volume 92.5 fL (81-99); Mean Platelet Vol. 9.4 fl (6.2-12.0); Monocyte# 0.35 X10^3/uL; Monocyte% 3.5 % (0-10); NRBC Flagged by Analyzer 0.3 % (0-5); Neutrophil # 8.99 X10^3/uL (2.7-7.7); Neutrophil % 89.5 % (47-70); Platelet Count 181 K/mm3 (150-450); RBC Distribution Width CV 16.7 % (11.6-14.6); RBC Distribution Width SD 55.2 fl (35.1-43.9); Red Blood Count 3.22 M/mm3 (4.2-5.4)
[2021-10-07] MEDS: Mag Hydrox/Al Hydrox/Simeth 30 ML UDC 15 ML PO (06:57)
--- NOTE | 2021-10-07 06:57 | NURSING ---
Pt states chest pain went away. EKG obtained, NSR. PRN maalox given.
[2021-10-07 07:07] LABS: Anion Gap 5 (5-15); BUN 42 mg/dL (7-18); BUN/Creat Ratio 7.8 RATIO (10-20); Calcium,Total 8.4 mg/dL (8.5-10.1); Chloride 99 mmol/L (98-107); Creatinine, Serum 5.38 mg/dL (0.55-1.02); EST Glomerular Filtration Rate 8 mL/min (>60); Est Glom Filt Rate - Afr Amer 10 mL/min (>60); Estimated Creatinine Clearance 10.31 ml/min; Glucose 140 mg/dL (74-106); Potassium 5.4 mmol/L (3.5-5.1); Sodium Level 133 mmol/L (136-145)
--- NOTE | 2021-10-07 10:00 | PN.RENAL_ITS ---
Subjective Subjective Seen on dialysis, tolerating treatment well. Still complaining of wheezing. Feeling tired this morning due to lack of sleep last night. Objective Data Objective Data Vital Signs: Vital Signs Temp Pulse Resp BP Pulse Ox 98.2 F 66 20 H 174/81 H 100 10/07/21 08:45 10/07/21 08:45 10/07/21 08:45 10/07/21 08:45 10/07/21 07:00 Oxygen Flow Rate (L/min) 3 Oxygen Delivery Method Nasal Cannula Weight: 70.8 kg Body Mass Index (BMI) 23.1 Intake & Output: Intake and Output for Last 24 Hours 10/05/21 10/06/21 10/07/21 23:59 23:59 23:59 Intake Total 840 / 840 2059 / 2059 Output Total 1999 0 / 0 Balance 840 / 840 0 / 0 Lab / Micro Data Result Diagrams: 10/07/21 05:30 10/07/21 05:30 Labs: Laboratory Results - last 24 hr 10/07/21 05:30: Sodium 133 L, Potassium 5.4 H, Chloride 99, Carbon Dioxide 29.0, Anion Gap 5, BUN 42 H, Creatinine 5.38 H, Estim Creat Clear Calc 10.31, Est GFR (MDRD) Af Amer 10 L, Est GFR (MDRD) Non-Af 8 L, BUN/Creatinine Ratio 7.8 L, Glucose 140 H, Calcium 8.4 L 10/07/21 05:30: WBC 10.0, RBC 3.22 L, Hgb 9.4 L, Hct 29.8 L, MCV 92.5, MCH 29.2, MCHC 31.5 L, RDW Std Deviation 55.2 H, RDW Coeff of Destiny 16.7 H, Plt Count 181, MPV 9.4, Immature Gran % (Auto) 0.700, Neut % (Auto) 89.5 H, Lymph % (Auto) 6.2 L, [place] % (Auto) 3.5, Eos % (Auto) 0.0, Baso % (Auto) 0.1, Absolute Neuts (auto) 9.0 H, Absolute Lymphs (auto) 0.62 L, Nucleated RBC % 0.3 Micro: Microbiology 10/05/21 15:10 Nasal Secretion SARS-CoV-2 & FLU Antigen (Rapid) - Final Rhythm Strip Rhythm Strip: Sinus Rhythm Rate: 65 Physical Exam Narrative Const: Alert and oriented x3 HEENT: Head is normocephalic, atraumatic, pupils equal reactive light, nation of mucosa is moist Cardio: S1-S2, rhythm rate regular Respiratory: Inspiratory and expiratory wheezing noted, audible expiratory wheezing noted. Faint rales noted right > left Extremities: No pitting edema Tunneled right IJ HD catheter dressing clean, dry and intact Assessment & Plan Assessment/Plan (1) History of end stage renal disease: (2) Acute respiratory failure with hypoxia: (3) Pleural effusion: (4) Anemia in chronic kidney disease (CKD): QUALIFIERS: Chronic kidney disease stage: on chronic dialysis Qualified Code(s): N18.6 - End stage renal disease; D63.1 - Anemia in chronic kidney disease; Z99.2 - Dependence on renal dialysis PLAN: -Patient dialyzes Sunday at [facility]. HD today over 3.5hrs on 2k bath, UF as pt/bp tolerates. Will have a new lowered edw by time of discharge. She tolerated 2L UF yesterday with HD. EDW at [facility] is 70 kg. - Hemoglobin is 9 4. We will monitor hemoglobin trends. Patient receives ANGELI at [facility]. - Bps elevated and on multiple antihypertensives. Blood pressure stable during dialysis, patient does not need midodrine, will discontinue midodrine. Expect blood pressures to improve with UF. Recommend holding BP meds morning of dialysis. -Hyperkalemia, 2K bath with HD today. Renal diet. Labs ordered for the morning -Still has audible inspiratory and expiratory wheezing: On breathing treatments and IV steroids. Encouraged patient out of bed with assistance to chair -Continue PhosLo. Last phosphorus 4.1
--- NOTE | 2021-10-07 10:18 | CASEMGMT ---
Social Work Pt is currently residing at [facility]. SW met with pt and introduced self and role of SW. Sw discussed discharge plan with pt and reviewed therapy evaluations. Pt acknowledging that she does not receive very much assistance at the [facility] and that she needs to be independent with bed mobility and toileting. SW explained to pt that she is having some difficulty with this now and pt denied and states she is returning home and will not consider SNF. Pt not acknowledge functional limitations. With pt permission, phone call placed to pt daughter Salima and explained the above. Salima confirmed pt does need to be independent to return and if she is not she will need to go to SNF. Salima states she will call patient and discuss discharge plan and will then call this SW back. MITRA Tobar
--- NOTE | 2021-10-07 10:55 | CPS ---
BiPAP removed from bedside.
--- NOTE | 2021-10-07 11:45 | DIALYSIS ---
Hemodialysis complete via right chest tunneled dialysis CVC with 3 liters fluid removed. CVC dressing is clean and dry. Pt tolerated treatment without difficulty.
[2021-10-07] MEDS: Heparin 10,000 UNITS/10 ML Vial 3200 UNITS IV (12:43)
[2021-10-07] MEDS: Calcium Acetate 667 MG Capsule 2001 MG PO ×2 (12:43→16:33)
[2021-10-07] MEDS: APIXABAN 2.5 MG TABLET PO ×2 (12:43→21:35)
[2021-10-07] MEDS: Pantoprazole Sodium 20 MG Tablet PO (12:44)
[2021-10-07] MEDS: amLODIPine 10 MG Tablet PO (12:44)
[2021-10-07] MEDS: Atenolol 50 MG Tablet PO (12:44)
[2021-10-07] MEDS: guaiFENesin 1,200 MG Tablet 1200 MG PO ×2 (12:45→21:34)
[2021-10-07] MEDS: DULoxetine Hcl 20 MG Capsule 40 MG PO (12:45)
[2021-10-07] MEDS: oxyCODONE 5 MG Tablet 10 MG PO ×2 (12:47→21:35)
--- NOTE | 2021-10-07 12:51 | PN.HOSP_ITS ---
Documented by User: Chantal Barrera HOG STOMACH PREPARER, HOG STOMACH PREPARER-C 10/07/21 12:56 Subjective Subjective Patient seen and examined. Continues to have shortness of breath although she states improved from prior. Significant wheezing. Denies cough, fever, chills. Undergoing dialysis. Objective Data Objective Data Vital Signs: Vital Signs Temp Pulse Resp BP Pulse Ox 98.3 F 62 16 168/72 H 100 10/07/21 12:40 10/07/21 12:40 10/07/21 12:40 10/07/21 12:40 10/07/21 12:40 Oxygen Flow Rate (L/min) 3 Oxygen Delivery Method Nasal Cannula Weight: 156 lb 1.396 oz Body Mass Index (BMI) 23.1 Intake & Output: Intake and Output for Last 24 Hours 10/05/21 10/06/21 10/07/21 23:59 23:59 23:59 Intake Total 840 / 840 2059 / 2060 Output Total 2000 / 2000 3000 / 3000 Balance 840 / 840 60 / 60 -3000 / -3000 Lab / Micro Data Result Diagrams: 10/07/21 05:30 10/07/21 05:30 Labs: Laboratory Results - last 24 hr 10/07/21 05:30: Sodium 133 L, Potassium 5.4 H, Chloride 99, Carbon Dioxide 29.0, Anion Gap 5, BUN 42 H, Creatinine 5.38 H, Estim Creat Clear Calc 10.31, Est GFR (MDRD) Af Amer 10 L, Est GFR (MDRD) Non-Af 8 L, BUN/Creatinine Ratio 7.8 L, Gluc ose 140 H, Calcium 8.4 L 10/07/21 05:30: WBC 10.0, RBC 3.22 L, Hgb 9.4 L, Hct 29.8 L, MCV 92.5, MCH 29.2, MCHC 31.5 L, RDW Std Deviation 55.2 H, RDW Coeff of Destiny 16.7 H, Plt Count 181, MPV 9.4, Immature Gran % (Auto) 0.700, Neut % (Auto) 89.5 H, Lymph % (Auto) 6.2 L, [place] % (Auto) 3.5, Eos % (Auto) 0.0, Baso % (Auto) 0.1, Absolute Neuts (auto) 9.0 H, Absolute Lymphs (auto) 0.62 L, Nucleated RBC % 0.3 Micro: Microbiology 10/07/21 08:12 Urine, Random Streptococcus pneumoniae Antigen (M - Final 10/07/21 08:12 Urine, Random Legionella Antigen - Final 10/05/21 15:10 Nasal Secretion SARS-CoV-2 & FLU Antigen (Rapid) - Final Rhythm Strip Rhythm Strip: Sinus Rhythm Rate: 65 Physical Exam Const alert, oriented x3 and no apparent distress Orientation / Consciousness: awake, oriented to person, oriented to place and oriented to time HEENT normocephalic and moist oral mucous membranes Eyes PERRL, EOMs intact bilaterally and conjunctivae normal Neck no lymphadenopathy Resp Auscultation: wheezes and diminished lung sounds Cardio regular rate, regular rhythm and no murmurs Peripheral Pulses: pulses 2+ throughout GI normal to inspection, nondistended, normoactive bowel sounds, non-tender and non-distended Extremity normal to inspection Skin no rashes or lesions noted Lesions: no lesions Rashes: no rashes Trauma: no lacerations or abrasions Neuro CN's II-XII intact bilaterally, no focal motor deficits, no sensory deficits n oted and deep tendon reflexes 2+ bilaterally Psych mental status grossly normal and affect normal Assessment & Plan Assessment/Plan (1) Respiratory failure: (2) Acute exacerbation of chronic obstructive pulmonary disease: PLAN: 1. Acute exacerbation of chronic COPD with chronic hypoxic resp iratory failure-flu and Covid negative. Continue supplemental oxygen to maintain O2 at or above 90%. Patient wears 2 to 4 L at baseline. IV Solu- Medrol. Albuterol and DuoNeb aerosols. Initially placed on BiPAP in the ED however not documented to be hypoxic. Continued significant wheezing on exam with shortness of breath. Continue IV steroids. Check respiratory panel. 2. Mild hyperkalemia-undergoing dialysis. Nephrology following. 3. Chronic heart failure with reduced ejection fraction-echocardiogram April 2021 with EF 55%. No longer on Lasix. Continue dialysis. 4. Paroxysmal atrial fibrillation-on atenolol, Eliquis 5. Chronic hypoxic respiratory failure secondary to chronic heart failure with reduced ejection fraction and chronic COPD-continue supplemental oxygen as noted above. 6. Anemia of chronic disease- stable, trend CBC. 7. End-stage renal disease on hemodialysis-nephrology consulted. 8. Hypertension-continue amlodipine, atenolol, hydralazine. 9. Hyperlipidemia-not on statin. 10. Anxiety/depression-on duloxetine, mirtazapine. 11. History of CVA-Eliquis. Not on aspirin, statin. 12. History of type 2 diabetes mellitus-hemoglobin A1c 12/01/2020 3.8%. 13. History of DVT-on Eliquis. 14. GERD-continue PPI. 15. Tobacco dependence-encouraged cessation. DVT prophylaxis-Eliquis This patient was seen by Chantal Barrera NP-Crystal under the supervision of Dr. Wakefield. Time spent examining patient, reviewing data and subsequent management of care: 12 Minutes Documented by User: Dr. Shar Wakefield DO 10/07/21 13:08 Objective Data Lab / Micro Data Result Diagrams: 10/07/21 05:30 10/07/21 05:30 Charges/Coding Addendum Addendum: Patient was seen and examined independently of Chantal Barrera today, she is undergoing dialysis at the time of my examination, she does not complain of any increased shortness of breath or chest discomfort. On examination she appeared in good health and spirits, she does not appear to be in any distress. Vital signs as documented. Skin warm and dry and without overt rashes. Neck without JVD, thyroid appears normal, trachea is midline, neck is supple. Lungs expiratory wheezes were noted over all lung linda, normal air movement was noted. Heart exam notable for regular rhythm, normal sounds and absence of murmurs, rubs or gallops. Abdomen unremarkable and without evidence of organomegaly, masses, or abdominal aortic enlargement, bowel sounds are present in all 4 quadrants, no abdominal tenderness was noted. Extremities nonedematous, no cyanosis was noted, no clubbing was noted. Neuro: Cranial nerves II through XII are grossly intact, no focal motor deficits were noted, sensation to light touch and pinprick is intact, motor exam 5/5 throughout. Psych: Patient is alert and oriented x3, she does not appear anxious or depressed, she does not appear agitated. #1 exacerbation of COPD-continue IV corticosteroid, continue aerosol treatments, I have ordered a respiratory panel on the patient today #2 end-stage renal disease on dialysis-patient is being dialyzed today #3 paroxysmal atrial fibrillation-patient is currently on Eliquis and rate control medication #4 essential hypertension-continue patient's current medications #5 chronic hypoxic respiratory failure-patient states that she usually uses anywhere from 2 to 4 L of oxygen via nasal cannula continuously at home-patient is currently on 3 L #6 chronic diastolic congestive heart failure-I do not believe the patient is in acute heart failure at this time #7 anemia of chronic renal disease-labs will be monitored, patient does not require blood transfusion at this time, patient's hemoglobin today was 9.4 I have reviewed Chantalpina Barrera's progress note including her medical assessment and plan of care and with the above additions endorse it. Total clinical time spent by myself addressing the patient's issues, reviewing the patient's medical data, and collaborating with the patient's caregivers: 23 minutes Visit Charges Inpatient E&M: [id number] Subs Hosp L3
--- NOTE | 2021-10-07 14:34 | CASEMGMT ---
Social Work SW placed call to pt dgt to check on discharge plan. Pt dgt stating she has came in and visited pt and talked with her and pt is requesting to return to [place] and dgt will support that. Dgt states she will keep an eye on pt. SW offered home health therapy and dgt denied this. Phone call to [facility] and updated that pt is not ready for discharge at this time. Updated clinical faxed. Plan: [facility]
--- NOTE | 2021-10-07 15:02 | CASEMGMT ---
Pt is currently on 2L at rest which is home order for oxygen. Pt completed therapy today on 2L nc with noted desat. Pt's home order is for 4L w/ exertion also. Per SW, pt/family plan is back to [facility] without HHC at this time. Leonides PAREDES CM
[2021-10-07] MEDS: Gabapentin 300 MG Capsule PO (16:33)
[2021-10-07] MEDS: Folic Acid/Vitamin B Comp W-C 1 Capsule 1 CAP PO (16:33)
[2021-10-07] MEDS: Gabapentin 600 MG Tablet PO (16:34)
[2021-10-07] MEDS: Glucerna Shake 120 ML LIQUID PO ×2 (16:34→21:37)
[2021-10-07] MEDS: Mirtazapine 30 MG Tablet 45 MG PO (21:34)
[2021-10-08] VITALS (10 sets, daily range): BP systolic 160–180; BP diastolic 71–73; PULSE 62–88; RESP 14–18; TEMP 36.5–36.6; O2SAT 93–99
[2021-10-08] MEDS: Ipratropium/Albuterol Sulfate 3 ML AMPUL.NEB INHALATION ×3 (02:59→11:05)
[2021-10-08] MEDS: hydrALAZINE 50 MG Tablet 100 MG PO ×2 (07:06→12:59)
[2021-10-08] MEDS: Dicyclomine 10 MG Capsule 20 MG PO ×2 (07:07→11:31)
[2021-10-08 08:53] LABS: Absolute Lymphocyte Count 0.77 X10^3/uL (0.83-4.51); Absolute Neutrophil Count 8.7 X10^3/uL (2.0-7.7); Basophil# 0.01 X10^3/uL; Basophil% 0.1 % (0-1); Hematocrit 34.4 % (37-47); Hemoglobin 10.7 g/dL (12.0-15.0); Lymphocyte # 0.77 X10^3/ul (0.83-4.51); Lymphocyte % 7.7 % (19-41); Mean Corp Hgb Conc 31.1 g/dL (32-36); Mean Corpuscular Hgb 29.5 pg (27.0-32.0); Mean Corpuscular Volume 94.8 fL (81-99); Mean Platelet Vol. 9.2 fl (6.2-12.0); Monocyte# 0.44 X10^3/uL; Monocyte% 4.4 % (0-10); NRBC Flagged by Analyzer 0.2 % (0-5); Neutrophil # 8.71 X10^3/uL (2.7-7.7); Platelet Count 183 K/mm3 (150-450); RBC Distribution Width SD 57.6 fl (35.1-43.9); Red Blood Count 3.63 M/mm3 (4.2-5.4)
[2021-10-08 09:05] LABS: Anion Gap 7 (5-15); BUN 43 mg/dL (7-18); BUN/Creat Ratio 8.7 RATIO (10-20); Calcium,Total 8.8 mg/dL (8.5-10.1); Chloride 101 mmol/L (98-107); Creatinine, Serum 4.92 mg/dL (0.55-1.02); EST Glomerular Filtration Rate 9 mL/min (>60); Est Glom Filt Rate - Afr Amer 11 mL/min (>60); Estimated Creatinine Clearance 11.28 ml/min; Glucose 122 mg/dL (74-106); Potassium 5.2 mmol/L (3.5-5.1); Sodium Level 136 mmol/L (136-145)
[2021-10-08] MEDS: DULoxetine Hcl 20 MG Capsule 40 MG PO (09:28)
[2021-10-08] MEDS: Atenolol 50 MG Tablet PO (09:28)
[2021-10-08] MEDS: Calcium Acetate 667 MG Capsule 2001 MG PO ×2 (09:28→11:31)
[2021-10-08] MEDS: APIXABAN 2.5 MG TABLET PO (09:29)
[2021-10-08] MEDS: Pantoprazole Sodium 20 MG Tablet PO (09:30)
[2021-10-08] MEDS: amLODIPine 10 MG Tablet PO (09:30)
[2021-10-08] MEDS: guaiFENesin 1,200 MG Tablet 1200 MG PO (09:30)
[2021-10-08] MEDS: oxyCODONE 5 MG Tablet 10 MG PO (09:36)
--- NOTE | 2021-10-08 10:31 | PCM.PN.REN ---
Subjective Subjective Following for ESRD. The patient denies current chest pain. There is no nausea or vomiting. Shortness of breath has improved. The patient was dialyzed yesterday with volume removal. She denies cramping with dialysis. Objective Data Objective Data Vital Signs: Vital Signs Temp Pulse Resp BP Pulse Ox 97.8 F 65 14 180/73 H 99 10/08/21 03:17 10/08/21 07:06 10/08/21 03:17 10/08/21 07:06 10/08/21 07:03 Oxygen Flow Rate (L/min) 2 Oxygen Delivery Method Room Air Weight: 66.9 kg Body Mass Index (BMI) 23.1 Intake & Output: Intake and Output for Last 24 Hours 10/06/21 10/07/21 10/08/21 23:59 23:59 23:59 Intake Total 2059 / 2059 100 / 100 100 / 100 Output Total 1999 / 1999 3000 / 3000 Balance 60 / 60 -2900 / -2900 100 / 100 Lab / Micro Data Result Diagrams: 10/08/21 08:40 10/08/21 08:40 Labs: Laboratory Results - last 24 hr 10/08/21 08:40: Sodium 136, Potassium 5.2 H, Chloride 101, Carbon Dioxide 28.0, Anion Gap 7, BUN 43 H, Creatinine 4.92 H, Estim Creat Clear Calc 11.28, Est GFR (MDRD) Af Amer 11 L, Est GFR (MDRD) Non-Af 9 L, BUN/Creatinine Ratio 8.7 L, Glucose 122 H, Calcium 8.8 10/08/21 08:40: WBC 10.0, RBC 3.63 L, Hgb 10.7 L, Hct 34.4 L, MCV 94.8, MCH 29.5, MCHC 31.1 L, RDW Std Deviation 57.6 H, RDW Coeff of Destiny 17.0 H, Plt Count 183, MPV 9.2, Immature Gran % (Auto) 0.800, Neut % (Auto) 87.0 H, Lymph % (Auto) 7.7 L, [place]clenn[place] % (Auto) 4.4, Eos % (Auto) 0.0, Baso % (Auto) 0.1, Absolute Neuts (auto) 8.7 H, Absolute Lymphs (auto) 0.77 L, Nucleated RBC % 0.2 Micro: Microbiology 10/07/21 10:55 Mucosa - Nasopharyngeal Respiratory Panel (PCR) - Final 10/07/21 08:12 Urine, Random Streptococcus pneumoniae Antigen (M - Final 10/07/21 08:12 Urine, Random Legionella Antigen - Final 10/05/21 15:10 Nasal Secretion SARS-CoV-2 & FLU Antigen (Rapid) - Final Rhythm Strip Rhythm Strip: Sinus Rhythm Rate: 65 Physical Exam Narrative Const: Alert and oriented x3 HEENT: Head is normocephalic, atraumatic, pupils equal reactive light, nation of mucosa is moist Cardio: S1-S2, rhythm rate regular Respiratory: Inspiratory and expiratory wheezing noted, audible expiratory wheezing noted. Faint rales noted right > left Extremities: No pitting edema Tunneled right IJ HD catheter dressing clean, dry and intact Assessment & Plan Assessment/Plan (1) History of end stage renal disease: (2) Acute respiratory failure with hypoxia: (3) Pleural effusion: (4) Anemia in chronic kidney disease (CKD): QUALIFIERS: Chronic kidney disease stage: on chronic dialysis Qualified Code(s): N18.6 - End stage renal disease; D63.1 - Anemia in chronic kidney disease; Z99.2 - Dependence on renal dialysis PLAN: -Patient dialyzes Sunday at [facility]. HD yesterday on 10/07/2021 over 3.5hrs on 2k bath, UF as pt/bp tolerates. Will have a new lowered edw by time of discharge. EDW at kidney center is 70 kg. - Hemoglobin is better at 10.7. Patient receives ANGELI at kidney center. - Bps elevated and on multiple antihypertensives. Blood pressure stable during dialysis, we have discontinued midodrine. Expect blood pressures to improve with UF. -Hyperkalemic prior to dialysis yesterday, 2K bath with HD yesterday. Potassium level is better at 5.2 today. Continue renal diet. -Still has audible inspiratory and expiratory wheezing: On breathing treatments and IV steroids. Encouraged patient out of bed with assistance to chair -Continue PhosLo. Last phosphorus 4.1. Disposition: Okay from nephrology standpoint to discharge. Discussed with Dr. Wakefield
--- NOTE | 2021-10-08 10:54 | DCINST_ITS ---
Discharge Instructions Diet Discharge Diet: Low fat / Low cholesterol and Renal Diet Activity Discharge Activity: Return to Normal Activity Dressing / Incision Call your doctor if you observe: Fever of 101 or Higher, Shortness of breath, Dizziness and Chest pain Follow Up Care Test Results: Test results from this visit will be discussed in further detail at your follow-up appointment, if applicable. Discharge Plan Admission Admit Date/Time: 10/05/21 14:09 Primary Reason for Your Visit: COPD exacerbation Attending Provider: Shar Wakefield Primary Care Provider: Shar Greene Consulting Providers: Brittani Byrne Discharge Orders/Prescriptions Prescriptions: New prednisone 10 mg tablet See Taper mg PO DAILY Qty: 30 RF: 0 dextromethorphan polistirex [Robitussin ER] 30 mg/5 mL suspension,extended rel 12 hr 10 ml PO Q12H PRN (Reason: cough) Qty: 89 RF: 0 albuterol sulfate 2.5 mg /3 mL (0.083 %) Solution For Nebulization 2.5 mg inhalation Q2H PRN PRN (Reason: SOB/Wheezing) 30 Days Qty: 90 RF: 0 Continued hydralazine 100 MG tablet 100 mg PO TID RF: 0 amlodipine 10 mg Tablet 10 mg PO DAILY RF: 0 calcium acetate(phosphat bind) 667 mg Capsule 2,001 mg PO TID RF: 0 mirtazapine 45 mg Tablet 45 mg PO QHS RF: 0 Eliquis 2.5 mg Tablet 2.5 mg PO BID RF: 0 dicyclomine 20 mg tablet 20 mg PO TID RF: 0 gabapentin 600 mg tablet 600 mg PO MOWEFR RF: 0 gabapentin 300 mg capsule 300 mg PO SUTUTHSA RF: 0 omeprazole 20 mg capsule,delayed release(DR/EC) 20 mg PO DAILY RF: 0 midodrine 10 mg tablet 10 mg PO MOWEFR RF: 0 duloxetine 20 mg capsule,delayed release(DR/EC) 40 mg PO DAILY RF: 0 oxycodone 10 mg tablet 10 mg PO BID RF: 0 RenaPlex-D 800 mcg-12.5 mg -2,000 unit tablet 1 tab PO MOWEFR RF: 0 atenolol 50 mg tablet 50 mg PO DAILY RF: 0 Referrals / Follow Up: Shar Greene MD [Primary Care Provider] - In 1 Week Brittani Byrne MD [STAFF PHYSICIAN] - See Referral Note (F/U with nephrology/dialysis as scheduled) Mainor Emery MD [NON-STAFF] - See Referral Note (Or primary sap treasury consultant in 1 week.) Disposition Disposition (needs filled in before D/C Order can be placed): Assisted Living
--- NOTE | 2021-10-08 11:45 | PCM.DC.SUM ---
Documented by User: Chantal Barrera NP, [employer] 10/08/21 11:55 Providers Date of Admission: 10/05/21 Date of Discharge: 10/08/21 Primary Care Physician: Dr. Shar Greene MD Consultations 10/05/21 15:32 Consult: Nephrology Routine Consulting Provider: Brittani Byrne Reason for Consult: ESRD on HD EMERGENT Consult: No MD Notified: Yes Date Notified: 10/05/21 Time Notified: 15:56 Method of Notification: Answering Service Reason For Visit: ACUTE HYPOXIC RESPIRATORY FAILURE Diagnosis Discharge Diagnosis (1) History of end stage renal disease: Status: Acute Code(s): Z87.448 - Personal history of other diseases of urinary system (2) Acute respiratory failure with hypoxia: Status: Acute Code(s): J96.01 - Acute respiratory failure with hypoxia (3) Pleural effusion: Status: Acute Code(s): J90 - Pleural effusion, not elsewhere classified (4) Anemia in chronic kidney disease (CKD): Status: Acute Code(s): N18.9 - Chronic kidney disease, unspecified; D63.1 - Anemia in chronic kidney disease Qualifiers: Chronic kidney disease stage: on chronic dialysis Qualified Code(s): N18.6 - End stage renal disease; D63.1 - Anemia in chronic kidney disease; Z99.2 - Dependence on renal dialysis Medications at Discharge Home Medications hydralazine 100 mg PO TID 03/31/20 amlodipine 10 mg PO DAILY 11/30/20 calcium acetate(phosphat bind) 2,001 mg PO TID 11/30/20 Eliquis 2.5 mg PO BID 01/08/21 mirtazapine 45 mg PO QHS 01/08/21 dicyclomine 20 mg PO TID 02/26/21 RenaPlex-D 1 tab PO MOWEFR 10/05/21 atenolol 50 mg PO DAILY 10/05/21 duloxetine 40 mg PO DAILY 10/05/21 gabapentin 300 mg PO SUTUTHSA 10/05/21 gabapentin 600 mg PO MOWEFR 10/05/21 midodrine 10 mg PO MOWEFR 10/05/21 omeprazole 20 mg PO DAILY 10/05/21 oxycodone 10 mg PO BID 10/05/21 albuterol sulfate 2.5 mg INHALATION Q2H PRN PRN 30 Days #90 ml 10/08/21 dextromethorphan polistirex [Robitussin ER] 10 ml PO Q12H PRN #89 ml 10/08/21 prednisone See Taper PO DAILY #30 tab 10/08/21 Hospital Course Operations None Procedures Dialysis Summary of Care Provided Hospital Course: Patient is a 71-year-old male admitted 10/05/2021 due to shortness of breath. 1. Acute exacerbation of chronic COPD with chronic hypoxic respiratory failure-flu and Covid negative, respiratory panel negative. Continue supplemental oxygen to maintain O2 at or above 90%. Patient wears 2 to 4 L at baseline. Initially placed on BiPAP in the ED however not documented to be hypoxic. Wheezing improved on day of discharge. Transition from IV steroids to prednisone taper. Patient has nebulizer at home. Rx for albuterol aerosols. Follow-up with pulmonology and PCP in 1 week. 2. Mild hyperkalemia-improved. Continue dialysis and nephrology follow-up. 3. Chronic heart failure with reduced ejection fraction-echocardiogram April 2021 with EF 55%. No longer on Lasix. Continue dialysis. 4. Paroxysmal atrial fibrillation-on atenolol, Eliquis. 5. Chronic hypoxic respiratory failure secondary to chronic heart failure with reduced ejection fraction and chronic COPD-continue supplemental oxygen as noted above. 6. Anemia of chronic disease- stable. 7. End-stage renal disease on hemodialysis-continue follow up with nephrology/dialysis. 8. Hypertension-continue amlodipine, atenolol, hydralazine. 9. Hyperlipidemia-not on statin. 10. Anxiety/depression-on duloxetine, mirtazapine. 11. History of CVA-Eliquis. Not on aspirin, statin. 12. History of type 2 diabetes mellitus-hemoglobin A1c 12/01/2020 3.8%. 13. History of DVT-on Eliquis. 14. GERD-continue PPI. 15. Tobacco dependence-encouraged cessation. Physical Exam Const alert, oriented x3 and no apparent distress Orientation / Consciousness: awake, oriented to person, oriented to place and oriented to time HEENT normocephalic and moist oral mucous membranes Eyes PERRL, EOMs intact bilaterally and conjunctivae normal Neck no lymphadenopathy Resp Auscultation: wheezes and diminished lung sounds- improved Cardio regular rate, regular rhythm and no murmurs Peripheral Pulses: pulses 2+ throughout GI normal to inspection, nondistended, normoactive bowel sounds, non-tender and non-distended Extremity normal to inspection Skin no rashes or lesions noted Lesions: no lesions Rashes: no rashes Trauma: no lacerations or abrasions Neuro CN's II-XII intact bilaterally, no focal motor deficits, no sensory deficits noted and deep tendon reflexes 2+ bilaterally Psych mental status grossly normal and affect normal Patient seen and examined prior to discharge. Physical assessment as noted above. Patient is stable for discharge with follow up recommendations as noted above. This patient was seen by JOE Zayas under the supervision of Dr. Wakefield. Time spent examining patient, reviewing data and subsequent management of care: 18 Minutes Weight / BMI Weight Weight: 147 lb 7.828 oz Body Mass Index (BMI) 23.1 ABG / Lab / Microbiology Data Result Diagrams: 10/08/21 08:40 10/08/21 08:40 Laboratory: Laboratory Results - last 24 hr 10/08/21 08:40: Sodium 136, Potassium 5.2 H, Chloride 101, Carbon Dioxide 28.0, Anion Gap 7, BUN 43 H, Creatinine 4.92 H, Estim Creat Clear Calc 11.28, Est GFR (MDRD) Af Amer 11 L, Est GFR (MDRD) Non-Af 9 L, BUN/Creatinine Ratio 8.7 L, Glucose 122 H, Calcium 8.8 10/08/21 08:40: WBC 10.0, RBC 3.63 L, Hgb 10.7 L, Hct 34.4 L, MCV 94.8, MCH 29.5, MCHC 31.1 L, RDW Std Deviation 57.6 H, RDW Coeff of Destiny 17.0 H, Plt Count 183, MPV 9.2, Immature Gran % (Auto) 0.800, Neut % (Auto) 87.0 H, Lymph % (Auto) 7.7 L, [place] % (Auto) 4.4, Eos % (Auto) 0.0, Baso % (Auto) 0.1, Absolute Neuts (auto) 8.7 H, Absolute Lymphs (auto) 0.77 L, Nucleated RBC % 0.2 Microbiology: Microbiology 10/07/21 10:55 Mucosa - Nasopharyngeal Respiratory Panel (PCR) - Final 10/07/21 08:12 Urine, Random Streptococcus pneumoniae Antigen (M - Final 10/07/21 08:12 Urine, Random Legionella Antigen - Final 10/05/21 15:10 Nasal Secretion SARS-CoV-2 & FLU Antigen (Rapid) - Final D/C Instructions Discharge Diet: Low fat / Low cholesterol and Renal Diet Call your doctor if you observe: Fever of 101 or Higher, Shortness of breath, Dizziness and Chest pain Meaningful Use Info Meaningful Use Diagnoses (Choose all that apply): None applicable Discharge Plan Admission Admit Date/Time: 10/05/21 14:09 Primary Reason for Your Visit: COPD exacerbation Attending Provider: Shar Wakefield Primary Care Provider: Shar Greene Consulting Providers: Brittani Byrne Discharge Orders/Prescriptions Prescriptions: New prednisone 10 mg tablet See Taper mg PO DAILY Qty: 30 RF: 0 dextromethorphan polistirex [Robitussin ER] 30 mg/5 mL suspension,extended rel 12 hr 10 ml PO Q12H PRN (Reason: cough) Qty: 89 RF: 0 albuterol sulfate 2.5 mg /3 mL (0.083 %) Solution For Nebulization 2.5 mg inhalation Q2H PRN PRN (Reason: SOB/Wheezing) 30 Days Qty: 90 RF: 0 Continued hydralazine 100 MG tablet 100 mg PO TID RF: 0 amlodipine 10 mg Tablet 10 mg PO DAILY RF: 0 calcium acetate(phosphat bind) 667 mg Capsule 2,001 mg PO TID RF: 0 mirtazapine 45 mg Tablet 45 mg PO QHS RF: 0 Eliquis 2.5 mg Tablet 2.5 mg PO BID RF: 0 dicyclomine 20 mg tablet 20 mg PO TID RF: 0 gabapentin 600 mg tablet 600 mg PO MOWEFR RF: 0 gabapentin 300 mg capsule 300 mg PO SUTUTHSA RF: 0 omeprazole 20 mg capsule,delayed release(DR/EC) 20 mg PO DAILY RF: 0 midodrine 10 mg tablet 10 mg PO MOWEFR RF: 0 duloxetine 20 mg capsule,delayed release(DR/EC) 40 mg PO DAILY RF: 0 oxycodone 10 mg tablet 10 mg PO BID RF: 0 RenaPlex-D 800 mcg-12.5 mg -2,000 unit tablet 1 tab PO MOWEFR RF: 0 atenolol 50 mg tablet 50 mg PO DAILY RF: 0 Referrals / Follow Up: Shar Greene MD [Primary Care Provider] - In 1 Week Brittani Byrne MD [STAFF PHYSICIAN] - See Referral Note (F/U with nephrology/dialysis as scheduled) Mainor Emery MD [NON-STAFF] - See Referral Note (Or primary paving stone installer in 1 week.) Disposition Disposition (needs filled in before D/C Order can be placed): Assisted Living Documented by User: Dr. Shar Wakefield DO 10/08/21 17:05 Providers Date of Admission: 10/05/21 Reason For Visit: ACUTE HYPOXIC RESPIRATORY FAILURE Medications at Discharge Home Medications hydralazine 100 mg PO TID 03/31/20 amlodipine 10 mg PO DAILY 11/30/20 calcium acetate(phosphat bind) 2,001 mg PO TID 11/30/20 Eliquis 2.5 mg PO BID 01/08/21 mirtazapine 45 mg PO QHS 01/08/21 dicyclomine 20 mg PO TID 02/26/21 RenaPlex-D 1 tab PO MOWEFR 10/05/21 atenolol 50 mg PO DAILY 10/05/21 duloxetine 40 mg PO DAILY 10/05/21 gabapentin 300 mg PO SUTUTHSA 10/05/21 gabapentin 600 mg PO MOWEFR 10/05/21 midodrine 10 mg PO MOWEFR 10/05/21 omeprazole 20 mg PO DAILY 10/05/21 oxycodone 10 mg PO BID 10/05/21 albuterol sulfate 2.5 mg INHALATION Q2H PRN PRN 30 Days #90 ml 10/08/21 dextromethorphan polistirex [Robitussin ER] 10 ml PO Q12H PRN #89 ml 10/08/21 prednisone See Taper PO DAILY #30 tab 10/08/21 ABG / Lab / Microbiology Data Result Diagrams: 10/08/21 08:40 10/08/21 08:40 Discharge Plan Admission Admit Date/Time: 10/05/21 14:09 Primary Reason for Your Visit: COPD exacerbation Attending Provider: Shar Wakefield Primary Care Provider: Shar Greene Consulting Providers: Brittani Byrne Discharge Orders/Prescriptions Prescriptions: New prednisone 10 mg tablet See Taper mg PO DAILY Qty: 30 RF: 0 dextromethorphan polistirex [Robitussin ER] 30 mg/5 mL suspension,extended rel 12 hr 10 ml PO Q12H PRN (Reason: cough) Qty: 89 RF: 0 albuterol sulfate 2.5 mg /3 mL (0.083 %) Solution For Nebulization 2.5 mg inhalation Q2H PRN PRN (Reason: SOB/Wheezing) 30 Days Qty: 90 RF: 0 Continued hydralazine 100 MG tablet 100 mg PO TID RF: 0 amlodipine 10 mg Tablet 10 mg PO DAILY RF: 0 calcium acetate(phosphat bind) 667 mg Capsule 2,001 mg PO TID RF: 0 mirtazapine 45 mg Tablet 45 mg PO QHS RF: 0 Eliquis 2.5 mg Tablet 2.5 mg PO BID RF: 0 dicyclomine 20 mg tablet 20 mg PO TID RF: 0 gabapentin 600 mg tablet 600 mg PO MOWEFR RF: 0 gabapentin 300 mg capsule 300 mg PO SUTUTHSA RF: 0 omeprazole 20 mg capsule,delayed release(DR/EC) 20 mg PO DAILY RF: 0 midodrine 10 mg tablet 10 mg PO MOWEFR RF: 0 duloxetine 20 mg capsule,delayed release(DR/EC) 40 mg PO DAILY RF: 0 oxycodone 10 mg tablet 10 mg PO BID RF: 0 RenaPlex-D 800 mcg-12.5 mg -2,000 unit tablet 1 tab PO MOWEFR RF: 0 atenolol 50 mg tablet 50 mg PO DAILY RF: 0 Referrals / Follow Up: Shar Greene MD [Primary Care Provider] - In 1 Week Brittani Byrne MD [STAFF PHYSICIAN] - See Referral Note (F/U with nephrology/dialysis as scheduled) Mainor Emery MD [NON-STAFF] - See Referral Note (Or primary paving stone installer in 1 week.) Disposition Disposition (needs filled in before D/C Order can be placed): Assisted Living Charges/Coding Addendum Addendum: Patient was seen and examined today independently of Chantal Barrera, she continues to require her home supplemental oxygen setting, she does not appear short of breath at rest. Patient's expiratory wheezing is much less today. I talked briefly with nephrology about her care. On examination she appeared older than her stated age, she does not appear to be in any distress. Vital signs as documented. Skin warm and dry and without overt rashes. Neck without JVD, thyroid appears normal, trachea is midline, neck is supple. Lungs-scattered expiratory wheezes were noted bilaterally, normal air movement was noted. Heart exam notable for regular rhythm, normal sounds and absence of murmurs, rubs or gallops. Abdomen unremarkable and without evidence of organomegaly, masses, or abdominal aortic enlargement, bowel sounds are present in all 4 quadrants, no abdominal tenderness was noted. Extremities nonedematous, no cyanosis was noted, no clubbing was noted. Neuro: Cranial nerves II through XII are grossly intact, no focal motor deficits were noted, sensation to light touch and pinprick is intact, motor exam 5/5 throughout. Psych: Patient is alert and oriented x3, she does not appear anxious or depressed, she does not appear agitated. Impression #1 exacerbation of COPD #2 end-stage renal disease on dialysis #3 paroxysmal atrial fibrillation #4 essential hypertension #5 chronic hypoxic respiratory failure #6 chronic diastolic congestive heart failure #7 anemia of chronic renal disease Patient appears stable for discharge on 10/08/2021. I have reviewed Chantal Barrera's discharge summary including her medical assessment and plan of care and with the above additions endorse it. Total clinical time spent by myself addressing the patient's medical issues, reviewing the patient's medical data, and collaborating with the patient's care team: 25 minutes Visit Charges Inpatient E&M: [id number] Disch Hosp
== END 2021-10-08 13:51 | disposition home or self-care (01) | DRG 190 ==
LOC: ED 14:13 → PCU 14:21
PROVIDERS: Nurse Practitioner Adult Health; Nurse Practitioner Family; Admitting Provider Internal Medicine; Emergency Provider Emergency Medicine; PCP Family Medicine; Visit Provider Internal Medicine
DX: J44.1 Chronic obstructive pulmonary disease with (acute) exacerbation (principal); N18.6 End stage renal disease; I13.2 Hypertensive heart and chronic kidney disease with heart failure and with stage 5 chronic kidney disease, or end stage renal disease; J90 Pleural effusion, not elsewhere classified; J96.11 Chronic respiratory failure with hypoxia; I50.32 Chronic diastolic (congestive) heart failure; D63.1 Anemia in chronic kidney disease; E11.22 Type 2 diabetes mellitus with diabetic chronic kidney disease; E11.40 Type 2 diabetes mellitus with diabetic neuropathy, unspecified; I48.0 Paroxysmal atrial fibrillation; Z99.2 Dependence on renal dialysis; D72.821 Monocytosis (symptomatic); E78.00 Pure hypercholesterolemia, unspecified; K21.9 Gastro-esophageal reflux disease without esophagitis; E78.5 Hyperlipidemia, unspecified; E87.5 Hyperkalemia; F41.9 Anxiety disorder, unspecified; I25.2 Old myocardial infarction; F32.A Depression, unspecified; G89.29 Other chronic pain; Z79.01 Long term (current) use of anticoagulants; Z79.899 Other long term (current) drug therapy; Z99.81 Dependence on supplemental oxygen; Z86.73 Personal history of transient ischemic attack (TIA), and cerebral infarction without residual deficits; Z87.891 Personal history of nicotine dependence
CPT/HCPCS: 36415; 71045; 80048; 80053; 83735; 83880; 84100; 84484; 85025; 87428; 87449; 87633; 90937; 93005; 94002; 94640; 97162; 97166; 97530; 97535; 99251; 99285; 99406; A4216; G0257; G0463; J1940

== ENCOUNTER 2021-10-10 13:37 | Emergency (ER) | payer MEDICARE, MEDICAID, SELFPAY ==
[2021-10-10] VITALS (8 sets, daily range): BP systolic 128–167; BP diastolic 53–71; PULSE 55–89; RESP 16–18; TEMP 36.6; O2SAT 95–100; BMI 22.9
--- NOTE | 2021-10-10 15:18 | EKG12_ITS ---
Test Reason : SOB Blood Pressure : / mmHG Vent. Rate : 055 BPM Atrial Rate : 055 BPM P-R Int : 172 ms QRS Dur : 080 ms QT Int : 494 ms P-R-T Axes : 031 -11 080 degrees QTc Int : 472 ms Sinus bradycardia Nonspecific ST and T wave abnormality Abnormal ECG Confirmed by BRANDON LEMON, MACIE ([id number]), advertising editor BIRDIE TORRES ([id number]) on 10/13/2021 1:11:13 PM Referred By: ESTEFANÍA Confirmed By:MACIE TAYLOR MD
[2021-10-10 15:31] LABS: Absolute Lymphocyte Count 1.38 X10^3/uL (0.83-4.51); Absolute Neutrophil Count 7.9 X10^3/uL (2.0-7.7); Basophil# 0.03 X10^3/uL; Basophil% 0.3 % (0-1); Eosinophils% 3.8 % (0-5); Hematocrit 37.1 % (37-47); Hemoglobin 11.2 g/dL (12.0-15.0); Lymphocyte # 1.38 X10^3/ul (0.83-4.51); Lymphocyte % 13.3 % (19-41); Mean Corp Hgb Conc 30.2 g/dL (32-36); Mean Corpuscular Volume 96.1 fL (81-99); Mean Platelet Vol. 9.4 fl (6.2-12.0); Monocyte# 0.63 X10^3/uL; Monocyte% 6.1 % (0-10); NRBC Flagged by Analyzer 0.4 % (0-5); Neutrophil # 7.89 X10^3/uL (2.7-7.7); Neutrophil % 75.7 % (47-70); Platelet Count 187 K/mm3 (150-450); RBC Distribution Width CV 17.3 % (11.6-14.6); RBC Distribution Width SD 60.1 fl (35.1-43.9); Red Blood Count 3.86 M/mm3 (4.2-5.4); White Blood Count 10.4 K/mm3 (4.4-11.0)
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
--- NOTE | 2021-10-10 15:40 | RAD_ITS ---
STUDY: X-RAY CHEST REASON FOR EXAM: Female, 71 years old. Shortness of breath and wheezing TECHNIQUE: PA and lateral views of the chest. COMPARISON: Comparison is made with prior study dated 10/05/2021. FINDINGS: A right-sided double-lumen catheter is seen with the tip at the junction of the superior vena cava right atrium. Small right pleural effusion with right basilar atelectasis. This has improved since prior study. The previously seen left pleural effusion has cleared. Normal size heart. Normal mediastinum and farhan. Normal visualized pulmonary arteries. There is atherosclerotic calcification of the aortic arch with tortuosity. Normal visualized thoracic spine. Normal visualized ribs, clavicles, and shoulders. There is no demonstrated abnormality of the visualized soft tissue structures of the upper abdomen. RAD/Chest PA and Lateral IMPRESSION: Persistent small pleural parenchymal changes at the right lung base. The left costophrenic angle is unremarkable. Electronically Signed: Lopez Barraza MD at 15:54 EDT ,
[2021-10-10 15:45] LABS: Anion Gap 6 (5-15); BUN 49 mg/dL (7-18); BUN/Creat Ratio 9.3 RATIO (10-20); Calcium,Total 8.3 mg/dL (8.5-10.1); Chloride 99 mmol/L (98-107); Creatinine, Serum 5.26 mg/dL (0.55-1.02); EST Glomerular Filtration Rate 9 mL/min (>60); Est Glom Filt Rate - Afr Amer 10 mL/min (>60); Estimated Creatinine Clearance 10.55 ml/min; Glucose 114 mg/dL (74-106); Potassium 4.3 mmol/L (3.5-5.1); Sodium Level 137 mmol/L (136-145)
[2021-10-10] MEDS: Albuterol 2.5 MG/3 ML VIAL.NEB. INHALATION ×3 (15:53)
[2021-10-10] MEDS: Ipratropium/Albuterol Sulfate 3 ML AMPUL.NEB INHALATION (15:53)
[2021-10-10] MEDS: predniSONE 20 MG Tablet 60 MG PO (16:11)
== END 2021-10-10 18:38 | disposition home or self-care (01) ==
PROVIDERS: Emergency Provider Emergency Medicine; PCP Family Medicine; Visit Provider Emergency Medicine
DX: J44.1 Chronic obstructive pulmonary disease with (acute) exacerbation (principal); I13.2 Hypertensive heart and chronic kidney disease with heart failure and with stage 5 chronic kidney disease, or end stage renal disease; Z99.2 Dependence on renal dialysis; I50.22 Chronic systolic (congestive) heart failure; E11.22 Type 2 diabetes mellitus with diabetic chronic kidney disease; N18.6 End stage renal disease; I48.0 Paroxysmal atrial fibrillation; J90 Pleural effusion, not elsewhere classified; D63.1 Anemia in chronic kidney disease; E78.00 Pure hypercholesterolemia, unspecified; J98.01 Acute bronchospasm; I25.10 Atherosclerotic heart disease of native coronary artery without angina pectoris; E78.5 Hyperlipidemia, unspecified; K21.9 Gastro-esophageal reflux disease without esophagitis; I25.2 Old myocardial infarction; F32.A Depression, unspecified; Z79.01 Long term (current) use of anticoagulants; Z79.899 Other long term (current) drug therapy; Z86.718 Personal history of other venous thrombosis and embolism; Z86.73 Personal history of transient ischemic attack (TIA), and cerebral infarction without residual deficits; Z87.891 Personal history of nicotine dependence
CPT/HCPCS: 71046; 80048; 85025; 93005; 94640; 99285

== ENCOUNTER 2021-10-25 08:38 | Emergency (ER) | payer MEDICARE, MEDICAID, SELFPAY ==
[2021-10-25] VITALS (11 sets, daily range): BP systolic 150–179; BP diastolic 61–77; PULSE 68–82; RESP 18–29; TEMP 36.9–37.2; O2SAT 99–100; BMI 22.1
--- NOTE | 2021-10-25 08:49 | EKG12_ITS ---
Test Reason : WEAKNESS Blood Pressure : / mmHG Vent. Rate : 078 BPM Atrial Rate : 078 BPM P-R Int : 178 ms QRS Dur : 082 ms QT Int : 414 ms P-R-T Axes : 079 024 036 degrees QTc Int : 471 ms Normal sinus rhythm Nonspecific T wave abnormality Prolonged QT Abnormal ECG Confirmed by BRANDON LEMON, MACIE ([id number]), editorial writer BIRDIE TORRES ([id number]) on 10/27/2021 7:19:45 AM Referred By: PL Confirmed By:MACIE TAYLOR MD
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
[2021-10-25] MEDS: Albuterol 2.5 MG/3 ML VIAL.NEB. INHALATION (08:59)
[2021-10-25] MEDS: Ipratropium/Albuterol Sulfate 3 ML AMPUL.NEB INHALATION ×2 (08:59→10:50)
[2021-10-25 09:31] LABS: Absolute Lymphocyte Count 0.85 X10^3/uL (0.83-4.51); Absolute Neutrophil Count 10.2 X10^3/uL (2.0-7.7); Basophil# 0.04 X10^3/uL; Basophil% 0.3 % (0-1); Eosinophil# 0.26 X10^3/uL; Eosinophils% 2.2 % (0-5); Hematocrit 31.9 % (37-47); Hemoglobin 9.3 g/dL (12.0-15.0); Lymphocyte # 0.85 X10^3/ul (0.83-4.51); Lymphocyte % 7.1 % (19-41); Mean Corp Hgb Conc 29.2 g/dL (32-36); Mean Corpuscular Hgb 29.2 pg (27.0-32.0); Mean Platelet Vol. 9.2 fl (6.2-12.0); Monocyte# 0.65 X10^3/uL; Monocyte% 5.4 % (0-10); NRBC Flagged by Analyzer 0 % (0-5); Neutrophil # 10.16 X10^3/uL (2.7-7.7); Neutrophil % 84.6 % (47-70); Platelet Count 138 K/mm3 (150-450); RBC Distribution Width CV 17.2 % (11.6-14.6); Red Blood Count 3.19 M/mm3 (4.2-5.4)
[2021-10-25] MEDS: MethylPREDNISolone 125 MG/2 ML Vial IV (09:38)
[2021-10-25 09:51] LABS: Anion Gap 4 (5-15); BUN 25 mg/dL (7-18); BUN/Creat Ratio 5.3 RATIO (10-20); Calcium,Total 8.7 mg/dL (8.5-10.1); Chloride 102 mmol/L (98-107); Creatinine, Serum 4.72 mg/dL (0.55-1.02); EST Glomerular Filtration Rate 10 mL/min (>60); Est Glom Filt Rate - Afr Amer 12 mL/min (>60); Estimated Creatinine Clearance 11.76 ml/min; Glucose 129 mg/dL (74-106); Potassium 5.7 mmol/L (3.5-5.1); Sodium Level 138 mmol/L (136-145); Troponin-I HS 22 pg/mL (3.0-54.0)
[2021-10-25 09:52] LABS: BNP,B-Type NATRIURETIC PEPTIDE 2309.5 pg/mL (0-100)
--- NOTE | 2021-10-25 09:54 | RAD_ITS ---
STUDY: X-RAY CHEST REASON FOR EXAM: Female, 71 years old. SOB TECHNIQUE: Single AP portable view of the chest. COMPARISON: 10/10/2021 FINDINGS: Tunneled right internal jugular dialysis catheter which is unchanged. Poor inspiration with some bibasilar atelectasis. There is no demonstrated pleural abnormality. There is moderate cardiac enlargement. Normal mediastinum and farhan. Normal visualized pulmonary arteries. Normal visualized aortic arch and descending thoracic aorta. Normal visualized thoracic spine. Normal visualized ribs, clavicles, and shoulders. There is no demonstrated abnormality of the visualized soft tissue structures of the upper abdomen. RAD/Chest 1 View (Portable) IMPRESSION: Poor inspiration with some bibasilar atelectasis. Electronically Signed: Peña Linder MD at 10:19 EDT ,
[2021-10-25] MEDS: predniSONE 20 MG Tablet 60 MG PO (11:47)
== END 2021-10-25 12:04 | disposition home or self-care (01) ==
PROVIDERS: Emergency Provider Emergency Medicine; PCP Family Medicine; Visit Provider Emergency Medicine
DX: J44.1 Chronic obstructive pulmonary disease with (acute) exacerbation (principal); I13.2 Hypertensive heart and chronic kidney disease with heart failure and with stage 5 chronic kidney disease, or end stage renal disease; Z99.2 Dependence on renal dialysis; I50.22 Chronic systolic (congestive) heart failure; E11.22 Type 2 diabetes mellitus with diabetic chronic kidney disease; N18.6 End stage renal disease; I48.0 Paroxysmal atrial fibrillation; I25.2 Old myocardial infarction; E78.00 Pure hypercholesterolemia, unspecified; D63.1 Anemia in chronic kidney disease; F17.210 Nicotine dependence, cigarettes, uncomplicated; Z79.01 Long term (current) use of anticoagulants; Z79.899 Other long term (current) drug therapy; Z86.718 Personal history of other venous thrombosis and embolism; Z86.73 Personal history of transient ischemic attack (TIA), and cerebral infarction without residual deficits
CPT/HCPCS: 71045; 80048; 83880; 84484; 85025; 87428; 93005; 94640; 96374; 99285; A4216

== ENCOUNTER 2021-11-05 17:23 | Emergency (ER) | payer MEDICARE, MEDICAID, SELFPAY ==
[2021-11-05 17:24] VITALS: BP 172/71; PULSE 71; RESP 18; TEMP 36.9; O2SAT 100; BMI 24.2
--- NOTE | 2021-11-05 18:04 | ED.RN ---
pt refusing any treatment. daughter left to check tanks at home for transport home.
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
[2021-11-05 18:39] VITALS: BP 148/78; PULSE 78; RESP 16; TEMP 36.9; O2SAT 100
== END 2021-11-05 18:40 | disposition home or self-care (01) ==
PROVIDERS: Emergency Provider Student in an Organized Health Care Education/Training Program; PCP Family Medicine; Visit Provider Student in an Organized Health Care Education/Training Program
DX: R09.02 Hypoxemia (principal); I13.2 Hypertensive heart and chronic kidney disease with heart failure and with stage 5 chronic kidney disease, or end stage renal disease; Z99.2 Dependence on renal dialysis; J44.9 Chronic obstructive pulmonary disease, unspecified; I50.22 Chronic systolic (congestive) heart failure; N18.6 End stage renal disease; I48.0 Paroxysmal atrial fibrillation; E78.00 Pure hypercholesterolemia, unspecified; D63.1 Anemia in chronic kidney disease; I25.2 Old myocardial infarction; F17.210 Nicotine dependence, cigarettes, uncomplicated; K21.9 Gastro-esophageal reflux disease without esophagitis; F32.A Depression, unspecified; Z99.81 Dependence on supplemental oxygen; Z79.01 Long term (current) use of anticoagulants; Z79.899 Other long term (current) drug therapy; Z86.73 Personal history of transient ischemic attack (TIA), and cerebral infarction without residual deficits; Z86.718 Personal history of other venous thrombosis and embolism
CPT/HCPCS: 99284

== ENCOUNTER 2021-11-13 00:14 | Observation (INO) | payer MEDICARE, MEDICAID, SELFPAY ==
[2021-11-13] VITALS (33 sets, daily range): BP systolic 158–201; BP diastolic 66–82; PULSE 62–96; RESP 12–28; TEMP 36.1–36.8; O2SAT 97–100; BMI 24.5; BMI 23.3
--- NOTE | 2021-11-13 00:18 | EKG12_ITS ---
Test Reason : SOB Blood Pressure : / mmHG Vent. Rate : 074 BPM Atrial Rate : 074 BPM P-R Int : 168 ms QRS Dur : 082 ms QT Int : 398 ms P-R-T Axes : 070 024 052 degrees QTc Int : 441 ms Sinus rhythm with Premature atrial complexes Nonspecific T wave abnormality Abnormal ECG Confirmed by TERE LEMON, JAN ([id number]), greeting card editor BIRDIE TORRES ([id number]) on 11/14/2021 1:45:24 PM Referred By: PL Confirmed By:JAN CARRANZA MD
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
[2021-11-13] MEDS: MethylPREDNISolone 125 MG/2 ML Vial IV (00:32)
[2021-11-13 00:34] LABS: Absolute Lymphocyte Count 1.39 X10^3/uL (0.83-4.51); Absolute Neutrophil Count 9.1 X10^3/uL (2.0-7.7); Basophil# 0.05 X10^3/uL; Basophil% 0.4 % (0-1); Eosinophil# 0.11 X10^3/uL; Hematocrit 29.3 % (37-47); Hemoglobin 8.6 g/dL (12.0-15.0); Lymphocyte # 1.39 X10^3/ul (0.83-4.51); Lymphocyte % 12.2 % (19-41); Mean Corp Hgb Conc 29.4 g/dL (32-36); Mean Corpuscular Hgb 29.1 pg (27.0-32.0); Mean Platelet Vol. 9.3 fl (6.2-12.0); Monocyte# 0.63 X10^3/uL; Monocyte% 5.5 % (0-10); NRBC Flagged by Analyzer 0.2 % (0-5); Neutrophil # 9.14 X10^3/uL (2.7-7.7); Neutrophil % 80.2 % (47-70); Platelet Count 194 K/mm3 (150-450); RBC Distribution Width CV 17.5 % (11.6-14.6); RBC Distribution Width SD 63.6 fl (35.1-43.9); Red Blood Count 2.96 M/mm3 (4.2-5.4); White Blood Count 11.4 K/mm3 (4.4-11.0)
--- NOTE | 2021-11-13 00:40 | RAD_ITS ---
STUDY: X-RAY CHEST REASON FOR EXAM: Female, 71 years old. SOB TECHNIQUE: AP portable upright COMPARISON: None. FINDINGS: There is infiltrate and pleural effusion at the right lung base. There is minimal infiltrate at the left base. Noted is a dialysis catheter with the tip in the right atrium. The heart has a normal size There is no demonstrated pleural abnormality. Normal mediastinum and farhan. Normal visualized pulmonary arteries. Normal visualized aortic arch and descending thoracic aorta. Normal visualized thoracic spine. Normal visualized ribs, clavicles, and shoulders. There is no demonstrated abnormality of the visualized soft tissue structures of the upper abdomen. RAD/Chest 1 View (Portable) IMPRESSION: Infiltrate at the right lower lung field. Pleural effusion at the right lung base. Electronically Signed: Zhen Sheffield MD at 1:26 EDT ,
[2021-11-13 00:55] LABS: Anion Gap 6 (5-15); BUN 37 mg/dL (7-18); BUN/Creat Ratio 6.6 RATIO (10-20); Calcium,Total 9.9 mg/dL (8.5-10.1); Chloride 103 mmol/L (98-107); Creatinine, Serum 5.59 mg/dL (0.55-1.02); EST Glomerular Filtration Rate 8 mL/min (>60); Est Glom Filt Rate - Afr Amer 10 mL/min (>60); Estimated Creatinine Clearance 9.93 ml/min; Glucose 209 mg/dL (74-106); Potassium 4.5 mmol/L (3.5-5.1); Sodium Level 141 mmol/L (136-145); Troponin-I HS 22 pg/mL (3.0-54.0)
--- NOTE | 2021-11-13 01:07 | ED.RN ---
PT PLACED ON BIPAP TO HELP WITH BREathing.
[2021-11-13 02:34] LABS: Lactic Acid 1.7 mmol/L (0.4-1.9)
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
[2021-11-13 04:18] LABS: Platelet Count 210 K/mm3 (150-450); RET-HE 27.8 pg (30-35); Reticulocyte Count 3.35 % (0.5-1.5)
[2021-11-13 05:22] LABS: Ferritin 1505 ng/mL (8-252); Iron 51 ug/dL (50-170); Iron Binding Capacity,Total 206 ug/dL (250-450); PERCENT IRON SATURATION 24.8 % (15.0-55.0)
[2021-11-13] MEDS: hydrALAZINE 50 MG Tablet 100 MG PO ×3 (06:55→20:35)
[2021-11-13] MEDS: Dicyclomine 10 MG Capsule 20 MG PO ×3 (06:55→20:36)
[2021-11-13 07:36] LABS: Bedside Glucose 141 mg/dL (74-106)
[2021-11-13] MEDS: Ipratropium/Albuterol Sulfate 3 ML AMPUL.NEB INHALATION ×4 (07:37→19:29)
[2021-11-13 08:26] LABS: Absolute Lymphocyte Count 0.54 X10^3/uL (0.83-4.51); Absolute Neutrophil Count 10.4 X10^3/uL (2.0-7.7); Basophil# 0.04 X10^3/uL; Basophil% 0.4 % (0-1); Hematocrit 28.2 % (37-47); Hemoglobin 8.2 g/dL (12.0-15.0); Lymphocyte # 0.54 X10^3/ul (0.83-4.51); Lymphocyte % 4.8 % (19-41); Mean Corp Hgb Conc 29.1 g/dL (32-36); Mean Corpuscular Hgb 28.7 pg (27.0-32.0); Mean Corpuscular Volume 98.6 fL (81-99); Mean Platelet Vol. 9.7 fl (6.2-12.0); Monocyte% 0.9 % (0-10); NRBC Flagged by Analyzer 0.2 % (0-5); Neutrophil # 10.41 X10^3/uL (2.7-7.7); Neutrophil % 93.2 % (47-70); POSITIVE DIFFERENTIAL YES; Platelet Count 200 K/mm3 (150-450); RBC Distribution Width CV 17.4 % (11.6-14.6); RBC Distribution Width SD 63.3 fl (35.1-43.9); Red Blood Count 2.86 M/mm3 (4.2-5.4); White Blood Count 11.2 K/mm3 (4.4-11.0)
[2021-11-13 08:28] LABS: Differential Indicated SCAN CRITERIA MET
[2021-11-13 08:46] LABS: Anion Gap 4 (5-15); BUN 41 mg/dL (7-18); BUN/Creat Ratio 6.8 RATIO (10-20); Calcium,Total 9.8 mg/dL (8.5-10.1); Chloride 103 mmol/L (98-107); Creatinine, Serum 6.06 mg/dL (0.55-1.02); EST Glomerular Filtration Rate 7 mL/min (>60); Est Glom Filt Rate - Afr Amer 9 mL/min (>60); Estimated Creatinine Clearance 9.16 ml/min; Glucose 141 mg/dL (74-106); Potassium 4.9 mmol/L (3.5-5.1); Sodium Level 141 mmol/L (136-145)
[2021-11-13 08:52] LABS: Hypochromasia 1+
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
[2021-11-13] MEDS: levoFLOXacin IV 750 MG/150 ML BAG 100 MG IV (10:50)
[2021-11-13] MEDS: Gabapentin 300 MG Capsule PO (11:04)
[2021-11-13] MEDS: DULoxetine Hcl 20 MG Capsule 40 MG PO (11:04)
[2021-11-13] MEDS: APIXABAN 2.5 MG TABLET PO ×2 (11:04→20:36)
[2021-11-13] MEDS: Atenolol 50 MG Tablet PO (11:04)
[2021-11-13] MEDS: amLODIPine 10 MG Tablet PO (11:04)
[2021-11-13] MEDS: Pantoprazole Sodium 20 MG Tablet PO (11:04)
[2021-11-13] MEDS: Calcium Acetate 667 MG Capsule 2001 MG PO ×3 (11:04→16:43)
[2021-11-13 11:21] LABS: Bedside Glucose 148 mg/dL (74-106)
--- NOTE | 2021-11-13 12:09 | PCM.HOSP.N ---
Hospitalist Note Ms. Ferrer is a 71-year-old female who was admitted early this morning with progressively worsening shortness of breath associated with wheezing. The patient has frequent admissions for respiratory distress/failure and has a history of COPD on chronic home oxygen as well as end-stage renal disease and she receives dialysis. Her last completed course of dialysis was the day prior to presentation. She has chronic bilateral small pleural effusions. On admission she denied any fever or chills and had an intermittent nonproductive cough. She indicated her appetite was poor. In the emergency department she was placed on BiPAP and admitted to the medical floor. She has been treated dually for an acute exacerbation COPD and possible pneumonia as her chest x-ray shows bilateral infiltrates. She was on Levaquin and azithromycin. Azithromycin was discontinued as Levaquin covers typical and atypical organisms. I anticipate her to be a slow wean off of BiPAP and nursing today we will plan on intermittent BiPAP breaks for assessment of tolerance. With frequent admissions may want a consider palliative care referral after discharge and possible referral to pulmonology for further evaluation. Nephrology has been consulted. Patient is a Sunday dialysis.
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
[2021-11-13] MEDS: Insulin Lispro 100 UNIT/ML INSULN.PEN SC ×2 (16:41→20:46)
[2021-11-13] MEDS: oxyCODONE 5 MG Tablet 10 MG PO ×2 (16:47→20:41)
[2021-11-13 16:50] LABS: Bedside Glucose 155 mg/dL (74-106)
[2021-11-13] MEDS: Mirtazapine 15 MG Tablet 45 MG PO ×2 (20:34→20:36)
[2021-11-13] MEDS: Glucerna Shake 120 ML LIQUID PO (20:36)
[2021-11-13] MEDS: Lactulose 20 GM/30 ML UDC PO (20:36)
[2021-11-13] MEDS: Montelukast 10 MG Tablet PO (20:37)
[2021-11-13] MEDS: Polyethylene Glycol 3350 17 GM PACKET PO (20:37)
[2021-11-13] MEDS: 0.9% Saline Lock 10 ML Syringe IV (20:46)
[2021-11-13 21:10] LABS: Bedside Glucose 150 mg/dL (74-106)
[2021-11-14] VITALS (18 sets, daily range): BP systolic 136–168; BP diastolic 61–84; PULSE 57–66; RESP 12–24; TEMP 36.2–36.8; O2SAT 98–100
[2021-11-14] MEDS: hydrALAZINE 50 MG Tablet 100 MG PO ×3 (05:50→21:38)
[2021-11-14] MEDS: Dicyclomine 10 MG Capsule 20 MG PO ×3 (05:50→21:38)
[2021-11-14] MEDS: Insulin Lispro 100 UNIT/ML INSULN.PEN SC ×2 (05:56→21:40)
[2021-11-14 06:00] LABS: Bedside Glucose 179 mg/dL (74-106)
[2021-11-14] MEDS: Ipratropium/Albuterol Sulfate 3 ML AMPUL.NEB INHALATION ×3 (06:02→19:27)
[2021-11-14 06:40] LABS: Absolute Lymphocyte Count 0.93 X10^3/uL (0.83-4.51); Absolute Neutrophil Count 11.2 X10^3/uL (2.0-7.7); Basophil# 0.01 X10^3/uL; Basophil% 0.1 % (0-1); Hematocrit 24.4 % (37-47); Hemoglobin 7.2 g/dL (12.0-15.0); Lymphocyte # 0.93 X10^3/ul (0.83-4.51); Lymphocyte % 7.2 % (19-41); Mean Corp Hgb Conc 29.5 g/dL (32-36); Mean Corpuscular Hgb 29.1 pg (27.0-32.0); Mean Corpuscular Volume 98.8 fL (81-99); Mean Platelet Vol. 9.9 fl (6.2-12.0); Monocyte# 0.73 X10^3/uL; Monocyte% 5.6 % (0-10); NRBC Flagged by Analyzer 0.4 % (0-5); Neutrophil # 11.22 X10^3/uL (2.7-7.7); Neutrophil % 86.3 % (47-70); Platelet Count 217 K/mm3 (150-450); RBC Distribution Width SD 64.4 fl (35.1-43.9); Red Blood Count 2.47 M/mm3 (4.2-5.4)
[2021-11-14 07:12] LABS: Anion Gap 5 (5-15); BUN 58 mg/dL (7-18); BUN/Creat Ratio 7.9 RATIO (10-20); Calcium,Total 9.8 mg/dL (8.5-10.1); Chloride 102 mmol/L (98-107); Creatinine, Serum 7.35 mg/dL (0.55-1.02); EST Glomerular Filtration Rate 6 mL/min (>60); Est Glom Filt Rate - Afr Amer 7 mL/min (>60); Estimated Creatinine Clearance 7.55 ml/min; Glucose 193 mg/dL (74-106); Potassium 5.4 mmol/L (3.5-5.1); Sodium Level 138 mmol/L (136-145)
[2021-11-14 09:22] LABS: Vitamin B12 683 pg/mL (211-911)
--- NOTE | 2021-11-14 10:27 | PN.RENAL_ITS ---
Subjective Subjective Seen on dialysis, tolerating treatment well. Objective Data Objective Data Vital Signs: Vital Signs Temp Pulse Resp BP Pulse Ox 98 F 57 L 20 H 156/84 H 100 11/14/21 08:30 11/14/21 08:30 11/14/21 08:30 11/14/21 08:30 11/14/21 08:30 Oxygen Flow Rate (L/min) 4 Oxygen Delivery Method Nasal Cannula Weight: 71.6 kg Body Mass Index (BMI) 23.3 Intake & Output: Intake and Output for Last 24 Hours 11/12/21 11/13/21 11/14/21 23:59 23:59 23:59 Intake Total 708.50 / 708.50 Output Total 0 / 0 Balance 708.50 / 708.50 Lab / Micro Data Result Diagrams: 11/14/21 06:05 11/14/21 06:05 Labs: Laboratory Results - last 24 hr 11/13/21 08:11: Vitamin B12 683 11/13/21 11:12: POC Glucose 148 H 11/13/21 16:39: POC Glucose 155 H 11/13/21 20:44: POC Glucose 150 H 11/14/21 05:56: POC Glucose 179 H 11/14/21 06:05: WBC 13.0 H, RBC 2.47 L, Hgb 7.2 L, Hct 24.4 L, MCV 98.8, MCH 29.1, MCHC 29.5 L, RDW Std Deviation 64.4 H, RDW Coeff of Destiny 18.0 H, Plt Count 217, MPV 9.9, Immature Gran % (Auto) 0.800, Neut % (Auto) 86.3 H, Lymph % (Auto) 7.2 L, [place] % (Auto) 5.6, Eos % (Auto) 0.0, Baso % (Auto) 0.1, Absolute Neuts (auto) 11.2 H, Absolute Lymphs (auto) 0.93, Nucleated RBC % 0.4 11/14/21 06:05: Sodium 138, Potassium 5.4 H, Chloride 102, Carbon Dioxide 31.0, Anion Gap 5, BUN 58 H, Creatinine 7.35 H, Estim Creat Clear Calc 7.55, Est GFR (MDRD) Af Amer 7 L, Est GFR (MDRD) Non-Af 6 L, BUN/Creatinine Ratio 7.9 L, Glucose 193 H, Calcium 9.8 Physical Exam Narrative Alert awake oriented x 3 no obvious distress s1s2 no murmurs Audible expiratory wheezing, no rales or rhonchi abdomen soft, nontender no edema Tunneled HD catheter accessed for hemodialysis Assessment & Plan Assessment/Plan (1) ESRD (end stage renal disease): PLAN: - Outpatient dialysis Sunday at [facility]. Patient to dialyze today over 3.5 hours/2k bath with UF as patient/blood pressure tolerates. Outpatient EDW 71.5 kg. Last hemodialysis on Sunday, post weight 72.9 kg. - Chest x-ray does not show fluid overload. Right lower lobe infiltrate. Being treated for pneumonia, on Levaquin IV and Solu-Medrol. - Anemia of renal failure. Received Mircera on 11/11. Will monitor hgb trends. Hgb 7.2 - Hyperphosphatemia. Continue phosphate binders. - bps acceptable on amlodipine 10 mg daily, atenolol daily, hydralazine 3 times daily. Midodrine is ordered Sunday PRN to be given with HD for intradialytic hypotension. -Increase activity, out of bed with assistance. In chair for meals. Contninue protein supplement.
--- NOTE | 2021-11-14 11:41 | PCM.PN.HOSP ---
Subjective Subjective Patient is a 71-year-old lady with history of end-stage renal disease on hemodialysis who was brought to the emergency department with progressive shortness of breath and assessment of acute on chronic hypoxic respiratory failure secondary to COPD exacerbation made admitted to a monitored bed for further management Objective Data Objective Data Vital Signs: Vital Signs Temp Pulse Resp BP Pulse Ox 98 F 57 L 20 H 156/84 H 100 11/14/21 08:30 11/14/21 08:30 11/14/21 08:30 11/14/21 08:30 11/14/21 08:30 Oxygen Flow Rate (L/min) 4 Oxygen Delivery Method Nasal Cannula Weight: 71.6 kg Body Mass Index (BMI) 23.3 Intake & Output: Intake and Output for Last 24 Hours 11/12/21 11/13/21 11/14/21 23:59 23:59 23:59 Intake Total 708.50 / 708.50 Output Total 0 / 0 Balance 708.50 / 708.50 Lab / Micro Data Result Diagrams: 11/14/21 06:05 11/14/21 06:05 Labs: Laboratory Results - last 24 hr 11/13/21 08:11: Vitamin B12 683 11/13/21 16:39: POC Glucose 155 H 11/13/21 20:44: POC Glucose 150 H 11/14/21 05:56: POC Glucose 179 H 11/14/21 06:05: WBC 13.0 H, RBC 2.47 L, Hgb 7.2 L, Hct 24.4 L, MCV 98.8, MCH 29.1, MCHC 29.5 L, RDW Std Deviation 64.4 H, RDW Coeff of Destiny 18.0 H, Plt Count 217, MPV 9.9, Immature Gran % (Auto) 0.800, Neut % (Auto) 86.3 H, Lymph % (Auto) 7.2 L, [place] % (Auto) 5.6, Eos % (Auto) 0.0, Baso % (Auto) 0.1, Absolute Neuts (auto) 11.2 H, Absolute Lymphs (auto) 0.93, Nucleated RBC % 0.4 11/14/21 06:05: Sodium 138, Potassium 5.4 H, Chloride 102, Carbon Dioxide 31.0, Anion Gap 5, BUN 58 H, Creatinine 7.35 H, Estim Creat Clear Calc 7.55, Est GFR (MDRD) Af Amer 7 L, Est GFR (MDRD) Non-Af 6 L, BUN/Creatinine Ratio 7.9 L, Glucose 193 H, Calcium 9.8 Physical Exam Narrative GENERAL: cooperative HEENT: Atraumatic; EYES; Anicteric, Normal Conjunctiva NECK; supple, normal thyroid, RESPIRATORY: Diminished to auscultation CARDIOVASCULAR: Regular S1 S2, GI: soft, normoactive bowel sounds, : No Renal angle tenderness; EXTREMITIES: No edema, no clubbing, MUSCULOSKELETAL: no muscle wasting NEURO: Awake; no lateralizing signs. SKIN: No Rash PSYCH; Flat affect Assessment & Plan Assessment/Plan (1) Acute respiratory failure with hypoxia: (2) COPD with acute exacerbation: PLAN: Patient is a 71-year-old lady with history of end-stage renal disease on hemodialysis who was brought to the emergency department with progressive shortness of breath and assessment of acute on chronic hypoxic respiratory failure secondary to COPD exacerbation made admitted to a monitored bed for further management 1. Acute on chronic hypoxic respiratory failure secondary to COPD with acute exacerbation as well as suspected pneumonia ? Patient has been admitted to a monitored bed for treatment of the underlying etiology. Patient was placed on supplemental oxygen Pneumonia - Suspected to be secondary to streptococcal pneumonia, Blood and sputum cultures sent. Patient placed on Levaquin, placed on oxygen titrated to keep Pulse Ox greater than 90 3.. Acute exacerbation ? Patient managed with systemic steroids in addition to antibiotic therapy. Also placed on supplemental oxygen Anemia - Secondary to chronic disorder/ESRD monitoring H&H and transfuse if patient becomes symptomatic or hemoglobin falls below 7 5. End-stage renal disease ? Patient is on dialysis on Wednesdays and Fridays consult placed to nephrology for dialysis orders 6. Paroxysmal A. fib ? Rate controlled on systemic anticoagulation with apixaban continue 7. Hypertension - Blood pressure controlled, home medications continued with dose adjustment as needed 8. Diabetes mellitus type 2 ? Placed on Accu-Cheks before meals and at bedtime with sliding scale coverage 9. History of previous DVT ? On Eliquis 10. Chronic congestive heart failure preserved ejection fraction ? Echo obtained on 04/20/2021 demonstrated EF of 55% 10. History of depression with anxiety ? Patient is on duloxetine continue 11. Dyslipidemia ? Currently managed with diet 12. GERD ? Per history 13. DVT prophylaxis ? On Eliquis Charges/Coding Visit Charges Inpatient E&M: 79429 Subs Hosp L2
[2021-11-14] MEDS: Polyethylene Glycol 3350 17 GM PACKET PO ×2 (12:16→21:39)
[2021-11-14] MEDS: amLODIPine 10 MG Tablet PO (12:16)
[2021-11-14] MEDS: APIXABAN 2.5 MG TABLET PO ×2 (12:16→21:38)
[2021-11-14] MEDS: Midodrine HCl 5 MG Tablet 10 MG PO (12:16)
[2021-11-14] MEDS: Pantoprazole Sodium 20 MG Tablet PO (12:16)
[2021-11-14] MEDS: Atenolol 50 MG Tablet PO (12:16)
[2021-11-14] MEDS: Folic Acid/Vitamin B Comp W-C 1 Capsule 1 CAP PO (12:16)
[2021-11-14] MEDS: DULoxetine Hcl 20 MG Capsule 40 MG PO (12:16)
[2021-11-14] MEDS: Gabapentin 600 MG Tablet PO (12:17)
[2021-11-14] MEDS: oxyCODONE 5 MG Tablet 10 MG PO ×2 (12:17→21:38)
[2021-11-14] MEDS: Heparin 10,000 UNITS/10 ML Vial 3200 UNITS IV (12:17)
[2021-11-14] MEDS: Calcium Acetate 667 MG Capsule 2001 MG PO ×2 (12:17→18:13)
--- NOTE | 2021-11-14 12:17 | CHAPLAIN ---
Type of Pastoral Visit _x__ Initial Visit ___ Follow-up Visit ___ On-call Visit ___ General Patient Visit ___ Spiritual Assessment ___ Family Conference ___ Bereavement ___ Rapid Response ___ Code Blue ___ Other (describe below) Pastoral Care Referral From _x__ Patient ___ Family ___ Nurse ___ Physician ___ Broadcaster ___ Waiter And Cashier ___ Other (describe below) Sacrament/Intervention ___ Active listening ___ Anointing ___ Evangelical ___ Bereavement ___ Communion ___ Flaca exploration ___ ___ Life review _x__ Prayer ___ Reconciliation ___ Sacrament of Sick _x__ Supportive presence ___ Wedding ___ Other (describe below) Pastoral Comments patient was seen before in previous admissions and does welcome spiritual care and prayer; pt has just finished dialysis when this screed person made visit; pt is now resting and on bi-pap; pt does recognize this screed person and accepts brief presence and prayer for her support; left pt to rest at this time
[2021-11-14 12:26] LABS: Bedside Glucose 117 mg/dL (74-106)
[2021-11-14] MEDS: Glucerna Shake 120 ML LIQUID PO ×4 (12:28→22:00)
--- NOTE | 2021-11-14 13:52 | DIALYSIS ---
HD x 3.5 hours complete. Ran on 2k bath. C/O cramping towards the end of tx. Only able to UF 1650ml. Ramandeep Moreira SURGICAL ONCOLOGIST is aware. Used right chest wall dialysis catheter. Lumens closed with heparin per fill volume. Caps placed. See treatment sheet for more details. Report was given to REGGIE Parnell
--- NOTE | 2021-11-14 14:45 | CASEMGMT ---
REGGIE FAN updated by MARIA GUADALUPE that therapy is recommending SNF for at discharge. REGGIE FAN in to talk with patient. List of SNFs of in-network facilities provided to patient. Patient states her preferred SNF is [facility]. REGGIE FAN asked permission to updated patient's daughter Calamina. Patient gave permission to call daughter. REGGIE FAN called [facility] and updated regarding SNF recommendations and patient's choice of [facility]. Daughter agreeable to plan. REGGIE FAN called [facility] and updated regarding requested referral. CM to fax referral once therapy notes placed. RN MITA updated MARIA GUADALUPE Rat[place]iff regarding discharge plan.
[2021-11-14 16:55] LABS: Bedside Glucose 143 mg/dL (74-106)
[2021-11-14] MEDS: 0.9% Saline Lock 10 ML Syringe IV (18:14)
--- NOTE | 2021-11-14 18:28 | NURSING ---
Reviewed charting with Promise Patrick RN
[2021-11-14] MEDS: Montelukast 10 MG Tablet PO (21:38)
[2021-11-14 22:15] LABS: Bedside Glucose 198 mg/dL (74-106)
[2021-11-15] VITALS (12 sets, daily range): BP systolic 143–176; BP diastolic 59–76; PULSE 55–58; RESP 14–20; TEMP 36.4–36.9; O2SAT 94–100
[2021-11-15 05:47] LABS: Absolute Lymphocyte Count 0.75 X10^3/uL (0.83-4.51); Absolute Neutrophil Count 11.7 X10^3/uL (2.0-7.7); Basophil# 0.01 X10^3/uL; Basophil% 0.1 % (0-1); Hematocrit 24.4 % (37-47); Hemoglobin 7.5 g/dL (12.0-15.0); Lymphocyte # 0.75 X10^3/ul (0.83-4.51); Lymphocyte % 5.7 % (19-41); Mean Corp Hgb Conc 30.7 g/dL (32-36); Mean Corpuscular Hgb 29.5 pg (27.0-32.0); Mean Corpuscular Volume 96.1 fL (81-99); Mean Platelet Vol. 9.3 fl (6.2-12.0); Monocyte# 0.43 X10^3/uL; Monocyte% 3.3 % (0-10); NRBC Flagged by Analyzer 0.8 % (0-5); Neutrophil # 11.73 X10^3/uL (2.7-7.7); Neutrophil % 89.9 % (47-70); Platelet Count 243 K/mm3 (150-450); RBC Distribution Width CV 18.4 % (11.6-14.6); RBC Distribution Width SD 62.2 fl (35.1-43.9); Red Blood Count 2.54 M/mm3 (4.2-5.4); White Blood Count 13.1 K/mm3 (4.4-11.0)
[2021-11-15] MEDS: Dicyclomine 10 MG Capsule 20 MG PO ×2 (06:05→13:54)
[2021-11-15] MEDS: hydrALAZINE 50 MG Tablet 100 MG PO ×2 (06:06→13:54)
[2021-11-15 06:36] LABS: Bedside Glucose 132 mg/dL (74-106)
[2021-11-15 06:38] LABS: Anion Gap 4 (5-15); BUN 38 mg/dL (7-18); BUN/Creat Ratio 8.2 RATIO (10-20); Calcium,Total 8.7 mg/dL (8.5-10.1); Chloride 100 mmol/L (98-107); Creatinine, Serum 4.64 mg/dL (0.55-1.02); EST Glomerular Filtration Rate 10 mL/min (>60); Est Glom Filt Rate - Afr Amer 12 mL/min (>60); Estimated Creatinine Clearance 11.96 ml/min; Glucose 134 mg/dL (74-106); Potassium 4.9 mmol/L (3.5-5.1); Sodium Level 137 mmol/L (136-145)
[2021-11-15] MEDS: Ipratropium/Albuterol Sulfate 3 ML AMPUL.NEB INHALATION ×3 (06:38→15:07)
[2021-11-15] MEDS: oxyCODONE 5 MG Tablet 10 MG PO (06:48)
[2021-11-15] MEDS: Calcium Acetate 667 MG Capsule 2001 MG PO ×2 (07:46→11:15)
[2021-11-15] MEDS: Gabapentin 300 MG Capsule PO (07:48)
--- NOTE | 2021-11-15 08:05 | PN.HOSP_ITS ---
Subjective Subjective Patient seen breathing less labored compared to previous day. Hemoglobin remains low at 7.5. Objective Data Objective Data Vital Signs: Vital Signs Temp Pulse Resp BP Pulse Ox 97.9 F 56 L 19 H 176/76 H 100 11/15/21 02:31 11/15/21 07:00 11/15/21 06:40 11/15/21 02:31 11/15/21 06:40 Oxygen Flow Rate (L/min) 4 Oxygen Delivery Method Nasal Cannula Weight: 71.6 kg Body Mass Index (BMI) 23.3 Intake & Output: Intake and Output for Last 24 Hours 11/13/21 11/14/21 11/15/21 23:59 23:59 23:59 Intake Total 708.50 / 708.50 600 / 650 100 / 100 Output Total 0 / 0 1650 / 1650 Balance 708.50 / 708.50 -1050 / -1000 100 / 100 Lab / Micro Data Result Diagrams: 11/15/21 05:18 11/15/21 05:18 Labs: Laboratory Results - last 24 hr 11/13/21 08:11: Vitamin B12 683 11/14/21 12:08: POC Glucose 117 H 11/14/21 16:48: POC Glucose 143 H 11/14/21 21:08: POC Glucose 198 H 11/15/21 05:18: Sodium 137, Potassium 4.9, Chloride 100, Carbon Dioxide 33.0 H, Anion Gap 4 L, BUN 38 H, Creatinine 4.64 H, Estim Creat Clear Calc 11.96, Est GFR (MDRD) Af Amer 12 L, Est GFR (MDRD) Non-Af 10 L, BUN/Creatinine Ratio 8.2 L, Glucose 134 H, Calcium 8.7 11/15/21 05:18: WBC 13.1 H, RBC 2.54 L, Hgb 7.5 L, Hct 24.4 L, MCV 96.1, MCH 29.5, MCHC 30.7 L, RDW Std Deviation 62.2 H, RDW Coeff of Destiny 18.4 H, Plt Count 243, MPV 9.3, Immature Gran % (Auto) 1.000 H, Neut % (Auto) 89.9 H, Lymph % (Auto) 5.7 L, [place] % (Auto) 3.3, Eos % (Auto) 0.0, Baso % (Auto) 0.1, Absolute Neuts (auto) 11.7 H, Absolute Lymphs (auto) 0.75 L, Nucleated RBC % 0.8 11/15/21 06:03: POC Glucose 132 H Micro: Microbiology 11/13/21 02:23 Blood Culture (Wb) - Left Forearm Blood Culture - Preliminary No growth in 48 hours. 11/13/21 02:00 Blood Culture (Wb) - Right Forearm Blood Culture - Preliminary No growth in 48 hours. Physical Exam Narrative GENERAL: cooperative HEENT: Atraumatic; EYES; Anicteric, Normal Conjunctiva NECK; supple, normal thyroid, RESPIRATORY: Diminished to auscultation CARDIOVASCULAR: Regular S1 S2, GI: soft, normoactive bowel sounds, : No Renal angle tenderness; EXTREMITIES: No edema, no clubbing, MUSCULOSKELETAL: no muscle wasting NEURO: Awake; no lateralizing signs. SKIN: No Rash PSYCH; Flat affect Assessment & Plan Assessment/Plan (1) Acute respiratory failure with hypoxia: (2) COPD with acute exacerbation: PLAN: Patient is a 71-year-old lady with history of end-stage renal disease on hemodialysis who was brought to the emergency department with progressive shortness of breath and assessment of acute on chronic hypoxic respiratory failure secondary to COPD exacerbation made admitted to a monitored bed for further management 1. Acute on chronic hypoxic respiratory failure secondary to COPD with acute exacerbation as well as suspected pneumonia ? Patient has been admitted to a monitored bed for treatment of the underlying etiology. Patient was placed on supplemental oxygen ? 11/15/2021 patient seen breathing less labored compared to previous day. However remains on supplemental oxygen 2. Pneumonia - Suspected to be secondary to streptococcal pneumonia, Blood and sputum cultures sent. Patient placed on Levaquin, placed on oxygen titrated to keep Pulse Ox greater than 90 ? 11/15/2021; cultures pending 3.. Acute exacerbation ? Patient managed with systemic steroids in addition to antibiotic therapy. Also placed on supplemental oxygen 4. Anemia - Secondary to chronic disorder/ESRD monitoring H&H and transfuse if patient becomes symptomatic or hemoglobin falls below 7 ? 11/15/2021 hemoglobin 7.5 5. End-stage renal disease ? Patient is on dialysis on Wednesdays and Fridays consult placed to nephrology for dialysis orders 6. Paroxysmal A. fib ? Rate controlled on systemic anticoagulation with apixaban continue 7. Hypertension - Blood pressure controlled, home medications continued with dose adjustment as needed 8. Diabetes mellitus type 2 ? Placed on Accu-Cheks before meals and at bedtime with sliding scale coverage 9. History of previous DVT ? On Eliquis 10. Chronic congestive heart failure preserved ejection fraction ? Echo obtained on 04/20/2021 demonstrated EF of 55% 10. History of depression with anxiety ? Patient is on duloxetine continue 11. Dyslipidemia ? Currently managed with diet 12. GERD ? Per history 13. DVT prophylaxis ? On Eliquis 14. Physical deconditioning - Requested for PT OT eval and social media executive to assist with discharge planning Charges/Coding Visit Charges Inpatient E&M: 81004 Subs Hosp L2
[2021-11-15] MEDS: amLODIPine 10 MG Tablet PO (09:31)
[2021-11-15] MEDS: DULoxetine Hcl 20 MG Capsule 40 MG PO (09:31)
[2021-11-15] MEDS: Atenolol 50 MG Tablet PO (09:31)
[2021-11-15] MEDS: Pantoprazole Sodium 20 MG Tablet PO (09:31)
[2021-11-15] MEDS: APIXABAN 2.5 MG TABLET PO (09:31)
[2021-11-15] MEDS: levoFLOXacin IV 500 MG/100 ML BAG 100 MG IV (09:31)
[2021-11-15] MEDS: Polyethylene Glycol 3350 17 GM PACKET PO (09:31)
[2021-11-15] MEDS: Glucerna Shake 120 ML LIQUID PO ×2 (09:32→13:51)
[2021-11-15] MEDS: Insulin Lispro 100 UNIT/ML INSULN.PEN SC (11:14)
[2021-11-15 11:21] LABS: Bedside Glucose 218 mg/dL (74-106)
--- NOTE | 2021-11-15 11:51 | PN.RENAL_ITS ---
Subjective Subjective Sitting in chair, states feeling much better today. No overnight events. States possibly to be discharged today. Objective Data Objective Data Vital Signs: Vital Signs Temp Pulse Resp BP Pulse Ox 97.5 F L 56 L 20 H 162/67 H 97 11/15/21 08:30 11/15/21 10:48 11/15/21 10:48 11/15/21 08:30 11/15/21 08:30 Oxygen Flow Rate (L/min) 4 Oxygen Delivery Method Nasal Cannula Weight: 71.6 kg Body Mass Index (BMI) 23.3 Intake & Output: Intake and Output for Last 24 Hours 11/13/21 11/14/21 11/15/21 23:59 23:59 23:59 Intake Total 708.50 / 708.50 600 / 650 550 / 550 Output Total 0 / 0 1650 / 1650 0 / 0 Balance 708.50 / 708.50 -1050 / -1000 550 / 550 Lab / Micro Data Result Diagrams: 11/15/21 05:18 11/15/21 05:18 Labs: Laboratory Results - last 24 hr 11/14/21 12:08: POC Glucose 117 H 11/14/21 16:48: POC Glucose 143 H 11/14/21 21:08: POC Glucose 198 H 11/15/21 05:18: Sodium 137, Potassium 4.9, Chloride 100, Carbon Dioxide 33.0 H, Anion Gap 4 L, BUN 38 H, Creatinine 4.64 H, Estim Creat Clear Calc 11.96, Est GFR (MDRD) Af Amer 12 L, Est GFR (MDRD) Non-Af 10 L, BUN/Creatinine Ratio 8.2 L, Glucose 134 H, Calcium 8.7 11/15/21 05:18: WBC 13.1 H, RBC 2.54 L, Hgb 7.5 L, Hct 24.4 L, MCV 96.1, MCH 29.5, MCHC 30.7 L, RDW Std Deviation 62.2 H, RDW Coeff of Destiny 18.4 H, Plt Count 243, MPV 9.3, Immature Gran % (Auto) 1.000 H, Neut % (Auto) 89.9 H, Lymph % (Auto) 5.7 L, [place] % (Auto) 3.3, Eos % (Auto) 0.0, Baso % (Auto) 0.1, Absolute Neuts (auto) 11.7 H, Absolute Lymphs (auto) 0.75 L, Nucleated RBC % 0.8 11/15/21 06:03: POC Glucose 132 H 11/15/21 11:14: POC Glucose 218 H Micro: Microbiology 11/13/21 02:23 Blood Culture (Wb) - Left Forearm Blood Culture - Preliminary No growth in 48 hours. 11/13/21 02:00 Blood Culture (Wb) - Right Forearm Blood Culture - Preliminary No growth in 48 hours. Physical Exam Narrative Alert awake oriented x 3 no obvious distress s1s2 no murmurs no wheezing, clear anteriorly, diminished post bases. No rales or rhonchi abdomen soft, nontender no edema Tunneled HD catheter dressing C/D/I Assessment & Plan Assessment/Plan (1) ESRD (end stage renal disease): PLAN: - Outpatient dialysis Sunday at [facility]. Patient tolerated HD yesterday with ~2L UF. No need for HD today. Next HD tomorrow. Outpatient EDW 71.5 kg. Last outpatient hemodialysis on Sunday, post weight 72.9 kg. - Chest x-ray does not show fluid overload. Right lower lobe infiltrate. Being treated for pneumonia, on Levaquin IV and Solu-Medrol. BC from 11/13 no growth to date - Anemia of renal failure. Received Mircera on 11/11. Will monitor hgb trends. Hgb 7.5 - Hyperphosphatemia. Continue phosphate binders. - bps acceptable on amlodipine 10 mg daily, atenolol daily, hydralazine 3 times daily. Midodrine is ordered Sunday PRN to be given with HD for intradialytic hypotension. -Increase activity, out of bed with assistance. In chair for meals. Continue protein supplement. - PT/OT/SW consult, discharge planning in progress. Possible discharge today
--- NOTE | 2021-11-15 12:24 | CASEMGMT ---
Therapy said patient did fine and is okay for home. MARIA GUADALUPE notified physician. MARIA GUADALUPE also called [facility] and notified Madisyn of d/c. MARIA GUADALUPE will arrange transport for patient to go home as she does not have a ride and she needs O2. Evy Paredes PRODUCTION TEAM ADVISOR CARLOS
--- NOTE | 2021-11-15 12:30 | PCM.DC.SUM ---
Providers Date of Admission: 11/13/21 Primary Care Physician: Dr. Shar Greene MD Consultations 11/13/21 03:30 Consult: Nephrology Routine Consulting Provider: Brittani Byrne Reason for Consult: ESRD on dialysis (M. W, F) EMERGENT Consult: No MD Notified: Yes Date Notified: 11/13/21 Time Notified: 06:51 Method of Notification: Answering Service Comments:: message left with answering caseworker protective services Yany Reason For Visit: ACUTE EXACERBATION OF COPD Diagnosis Discharge Diagnosis (1) ESRD (end stage renal disease): Status: Acute Code(s): N18.6 - End stage renal disease Medications at Discharge Home Medications hydralazine 100 mg PO TID 03/31/20 amlodipine 10 mg PO DAILY 11/30/20 calcium acetate(phosphat bind) 2,001 mg PO TID 11/30/20 Eliquis 2.5 mg PO BID 01/08/21 mirtazapine 45 mg PO QHS 01/08/21 dicyclomine 20 mg PO TID 02/26/21 RenaPlex-D 1 tab PO MOWEFR 10/05/21 atenolol 50 mg PO DAILY 10/05/21 duloxetine 40 mg PO DAILY 10/05/21 gabapentin 300 mg PO SUTUTHSA 10/05/21 gabapentin 600 mg PO MOWEFR 10/05/21 midodrine 10 mg PO MOWEFR 10/05/21 omeprazole 20 mg PO DAILY 10/05/21 oxycodone 10 mg PO BID 10/05/21 albuterol sulfate 2.5 mg INHALATION Q2H PRN PRN 30 Days #90 ml 10/08/21 dextromethorphan polistirex [Robitussin ER] 10 ml PO Q12H PRN #89 ml 10/08/21 docusate sodium 200 mg PO BID PRN PRN 10/25/21 guaifenesin [Mucinex] 400 mg PO TID PRN PRN 10/25/21 ipratropium-albuterol 1 spray INHALATION BID 10/25/21 lactulose 30 ml PO QHS 10/25/21 montelukast [Singulair] 10 mg PO QHS 10/25/21 oxycodone 10 mg PO BID PRN 10/25/21 prednisone 60 mg PO DAILY #12 tab 10/25/21 levofloxacin 750 mg PO Q48H #3 tab 11/15/21 prednisone 40 mg PO DAILY #10 tab 11/15/21 Hospital Course Summary of Care Provided Minutes Spent on Discharge: 40 Hospital Course: Patient is a 71-year-old lady with history of end-stage renal disease on hemodialysis who was brought to the emergency department with progressive shortness of breath and assessment of acute on chronic hypoxic respiratory failure secondary to COPD exacerbation made admitted to a monitored bed for further management 1. Acute on chronic hypoxic respiratory failure secondary to COPD with acute exacerbation as well as suspected pneumonia ? Patient has been admitted to a monitored bed for treatment of the underlying etiology. Patient was placed on supplemental oxygen ? 11/15/2021 patient seen breathing less labored compared to previous day. However remains on supplemental oxygen 2. Pneumonia - Suspected to be secondary to streptococcal pneumonia, Blood and sputum cultures sent. Patient placed on Levaquin, placed on oxygen titrated to keep Pulse Ox greater than 90 ? 11/15/2021; cultures pending 3.. Acute exacerbation ? Patient managed with systemic steroids in addition to antibiotic therapy. Also placed on supplemental oxygen 4. Anemia - Secondary to chronic disorder/ESRD monitoring H&H and transfuse if patient becomes symptomatic or hemoglobin falls below 7 ? 11/15/2021 hemoglobin 7.5 5. End-stage renal disease ? Patient is on dialysis on Wednesdays and Fridays consult placed to nephrology for dialysis orders 6. Paroxysmal A. fib ? Rate controlled on systemic anticoagulation with apixaban continue 7. Hypertension - Blood pressure controlled, home medications continued with dose adjustment as needed 8. Diabetes mellitus type 2 ? Placed on Accu-Cheks before meals and at bedtime with sliding scale coverage 9. History of previous DVT ? On Eliquis 10. Chronic congestive heart failure preserved ejection fraction ? Echo obtained on 04/20/2021 demonstrated EF of 55% 10. History of depression with anxiety ? Patient is on duloxetine continue 11. Dyslipidemia ? Currently managed with diet 12. GERD ? Per history 13. DVT prophylaxis ? On Eliquis 14. Physical deconditioning - Requested for PT OT eval and geriatric social work professor to assist with discharge planning Physical Exam Narrative GENERAL: cooperative HEENT: Atraumatic; EYES; Anicteric, Normal Conjunctiva NECK; supple, normal thyroid, RESPIRATORY: Diminished to auscultation CARDIOVASCULAR: Regular S1 S2, GI: soft, normoactive bowel sounds, : No Renal angle tenderness; EXTREMITIES: No edema, no clubbing, MUSCULOSKELETAL: no muscle wasting NEURO: Awake; no lateralizing signs. SKIN: No Rash PSYCH; Flat affect Weight / BMI Weight Weight: 71.6 kg Body Mass Index (BMI) 23.3 ABG / Lab / Microbiology Data Result Diagrams: 11/15/21 05:18 11/15/21 05:18 Laboratory: Laboratory Results - last 24 hr 11/14/21 16:48: POC Glucose 143 H 11/14/21 21:08: POC Glucose 198 H 11/15/21 05:18: Sodium 137, Potassium 4.9, Chloride 100, Carbon Dioxide 33.0 H, Anion Gap 4 L, BUN 38 H, Creatinine 4.64 H, Estim Creat Clear Calc 11.96, Est GFR (MDRD) Af Amer 12 L, Est GFR (MDRD) Non-Af 10 L, BUN/Creatinine Ratio 8.2 L, Glucose 134 H, Calcium 8.7 11/15/21 05:18: WBC 13.1 H, RBC 2.54 L, Hgb 7.5 L, Hct 24.4 L, MCV 96.1, MCH 29.5, MCHC 30.7 L, RDW Std Deviation 62.2 H, RDW Coeff of Destiny 18.4 H, Plt Count 243, MPV 9.3, Immature Gran % (Auto) 1.000 H, Neut % (Auto) 89.9 H, Lymph % (Auto) 5.7 L, Story % (Auto) 3.3, Eos % (Auto) 0.0, Baso % (Auto) 0.1, Absolute Neuts (auto) 11.7 H, Absolute Lymphs (auto) 0.75 L, Nucleated RBC % 0.8 11/15/21 06:03: POC Glucose 132 H 11/15/21 11:14: POC Glucose 218 H Microbiology: Microbiology 11/13/21 02:23 Blood Culture (Wb) - Left Forearm Blood Culture - Preliminary No growth in 48 hours. 11/13/21 02:00 Blood Culture (Wb) - Right Forearm Blood Culture - Preliminary No growth in 48 hours. D/C Instructions Discharge Diet: Renal Diet Discharge Activity: Return to Normal Activity Call your doctor if you observe: Fever of 101 or Higher, Shortness of breath, Fainting spells and Chest pain Meaningful Use Info Meaningful Use Diagnoses (Choose all that apply): None applicable Discharge Plan Admission Admit Date/Time: 11/13/21 02:35 Attending Provider: Brian Kinney Primary Care Provider: Shar Greene Consulting Providers: Juwan Henry ; Brittani Byrne ; Cailin Nichols Discharge Orders/Prescriptions Prescriptions: New prednisone 20 mg tablet 40 mg PO DAILY Qty: 10 RF: 0 levofloxacin 750 mg tablet 750 mg PO Q48H Qty: 3 RF: 0 Continued hydralazine 100 MG tablet 100 mg PO TID RF: 0 amlodipine 10 mg Tablet 10 mg PO DAILY RF: 0 calcium acetate(phosphat bind) 667 mg Capsule 2,001 mg PO TID RF: 0 mirtazapine 45 mg Tablet 45 mg PO QHS RF: 0 Eliquis 2.5 mg Tablet 2.5 mg PO BID RF: 0 dicyclomine 20 mg tablet 20 mg PO TID RF: 0 gabapentin 600 mg tablet 600 mg PO MOWEFR RF: 0 gabapentin 300 mg capsule 300 mg PO SUTUTHSA RF: 0 omeprazole 20 mg capsule,delayed release(DR/EC) 20 mg PO DAILY RF: 0 midodrine 10 mg tablet 10 mg PO MOWEFR RF: 0 duloxetine 20 mg capsule,delayed release(DR/EC) 40 mg PO DAILY RF: 0 oxycodone 10 mg tablet 10 mg PO BID RF: 0 RenaPlex-D 800 mcg-12.5 mg -2,000 unit tablet 1 tab PO MOWEFR RF: 0 atenolol 50 mg tablet 50 mg PO DAILY RF: 0 dextromethorphan polistirex [Robitussin ER] 30 mg/5 mL suspension,extended rel 12 hr 10 ml PO Q12H PRN (Reason: cough) Qty: 89 RF: 0 albuterol sulfate 2.5 mg /3 mL (0.083 %) Solution For Nebulization 2.5 mg inhalation Q2H PRN PRN (Reason: SOB/Wheezing) 30 Days Qty: 90 RF: 0 montelukast [Singulair] 10 mg Tablet 10 mg PO QHS RF: 0 ipratropium-albuterol 18-103 mcg/actuation Aerosol 1 spray INHALATION BID RF: 0 docusate sodium 100 mg Tablet 200 mg PO BID PRN PRN (Reason: constipation) RF: 0 lactulose 10 gram/15 mL Solution 30 ml PO QHS RF: 0 oxycodone 10 mg Tablet 10 mg PO BID PRN (Reason: Pain) RF: 0 guaifenesin [Mucinex] 600 mg Tablet Extended Release 12hr 400 mg PO TID PRN PRN (Reason: Congestion) RF: 0 prednisone 20 MG tablet 60 mg PO DAILY Qty: 12 RF: 0 Referrals / Follow Up: Shar Greene MD [Primary Care Provider] - Within 1 Week Disposition Disposition (needs filled in before D/C Order can be placed): Assisted Living Charges/Coding Visit Charges Inpatient E&M: 95112 Disch Hosp
--- NOTE | 2021-11-15 13:22 | CASEMGMT ---
MARIA GUADALUPE called [facility] to arrange wheelchair transport home with O2. MARIA GUADALUPE spoke with Charbel from [facility]. MARIA GUADALUPE told Charbel [facility]'s preferred provider is [facility], patient needs a wheelchair, [place]. [place] [id number]. MARIA GUADALUPE then followed the instructions given to MARIA GUADALUPE by [facility]. MARIAG UADALUPE called [facility] ([phone]) and notified the individual that SW has a [facility] patient that needs wheelchair transport. MARIA GUADALUPE gave the individual the confirmation number from [facility]. This individual at [facility] took down all of patient's information and transport was set up for 1530. MARIA GUADALUPE asked if [facility] calls [facility] to request transport. The individual told MARIA GUADALUPE no, she just put in patient's information to set up transport. MARIA GUADALUPE faxed d/c instructions to [facility]. MARIA GUADALUPE also called [facility] with oyster picker time. MARIA GUADALUPE notified patient, clerk secretary, and RN. MARIA GUADALUPE called patient's daughter to notify her of the change in d/c plans, however her voice mail was full. Plan: d/c back to [facility] SRINATH. Evy GONZALEZ
[2021-11-15] MEDS: Acetaminophen 325 MG Tablet 650 MG PO (13:51)
[2021-11-15] MEDS: 0.9% Saline Lock 10 ML Syringe IV (13:54)
--- NOTE | 2021-11-15 14:06 | NURSING ---
Called report to Etelvina at [facility]
--- NOTE | 2021-11-15 15:54 | NURSING ---
Reviewed charting with Promise Patrick RN
== END 2021-11-15 16:00 | disposition home or self-care (01) | DRG 189 ==
LOC: ED 02:44 → PCU 02:54
PROVIDERS: Internal Medicine; Nurse Practitioner Adult Health; Admitting Provider Hospitalist; Emergency Provider Emergency Medicine; PCP Family Medicine; Visit Provider Internal Medicine
DX: J96.21 Acute and chronic respiratory failure with hypoxia (principal); I13.2 Hypertensive heart and chronic kidney disease with heart failure and with stage 5 chronic kidney disease, or end stage renal disease; Z99.2 Dependence on renal dialysis; J44.1 Chronic obstructive pulmonary disease with (acute) exacerbation; J44.0 Chronic obstructive pulmonary disease with (acute) lower respiratory infection; I50.32 Chronic diastolic (congestive) heart failure; E11.22 Type 2 diabetes mellitus with diabetic chronic kidney disease; E11.65 Type 2 diabetes mellitus with hyperglycemia; N18.6 End stage renal disease; I48.0 Paroxysmal atrial fibrillation; J18.9 Pneumonia, unspecified organism; I95.3 Hypotension of hemodialysis; D63.1 Anemia in chronic kidney disease; K21.9 Gastro-esophageal reflux disease without esophagitis; M19.90 Unspecified osteoarthritis, unspecified site; I25.2 Old myocardial infarction; G89.29 Other chronic pain; Z79.01 Long term (current) use of anticoagulants; Z79.899 Other long term (current) drug therapy; Z79.52 Long term (current) use of systemic steroids; Z99.81 Dependence on supplemental oxygen; Z86.718 Personal history of other venous thrombosis and embolism; F41.8 Other specified anxiety disorders; E78.00 Pure hypercholesterolemia, unspecified
CPT/HCPCS: 36415; 71045; 74018; 80048; 82607; 82728; 82746; 82962; 83540; 83550; 83605; 84484; 85025; 85045; 87040; 90937; 93005; 94002; 94003; 94640; 94762; 96365; 96366; 96367; 96375; 96376; 97162; 97166; 97530; 97535; 99221; 99285; J7030; J7050; A4216; G0257; G0378

== ENCOUNTER 2021-11-26 21:22 | Emergency (ER) | payer MEDICARE, MEDICAID, SELFPAY ==
[2021-11-26 21:23] VITALS: PULSE 70; RESP 24; TEMP 37.2; O2SAT 100; BMI 21.7
[2021-11-26 21:28] VITALS: RESP 24; O2SAT 100
[2021-11-26 21:29] VITALS: BP 190/66
[2021-11-26 21:44] VITALS: PULSE 65; RESP 20
[2021-11-26] MEDS: Ipratropium/Albuterol Sulfate 3 ML AMPUL.NEB INHALATION (21:53)
[2021-11-26] MEDS: Albuterol 2.5 MG/3 ML VIAL.NEB. INHALATION (21:53)
--- NOTE | 2021-11-26 22:10 | RAD_ITS ---
STUDY: X-RAY CHEST REASON FOR EXAM: Female, 71 years old. shortness of breath TECHNIQUE: AP portable. 10:07 PM. COMPARISON: 11/13/2021. FINDINGS: LINES/DEVICES: Indwelling central venous catheter unchanged position. LUNGS: Opacities in the right lung base with small to moderate right pleural effusion not significantly changed. Small left pleural effusion and left basilar atelectasis increased.. No pneumothorax. MEDIASTINUM: Unremarkable. CARDIAC SILHOUETTE: Not enlarged. BONES AND SOFT TISSUES: No acute abnormalities. RAD/Chest 1 View (Portable) IMPRESSION: Bilateral pleural effusions and basilar atelectasis greater on the right, slightly increased compared to prior study. Cannot exclude pneumonia. Electronically Signed: Nadya Pena MD at 22:44 EDT ,
[2021-11-26 22:18] LABS: Absolute Lymphocyte Count 1.38 X10^3/uL (0.83-4.51); Absolute Neutrophil Count 8.1 X10^3/uL (2.0-7.7); Basophil# 0.04 X10^3/uL; Basophil% 0.4 % (0-1); Eosinophil# 0.14 X10^3/uL; Eosinophils% 1.3 % (0-5); Hematocrit 27.1 % (37-47); Lymphocyte # 1.38 X10^3/ul (0.83-4.51); Lymphocyte % 12.7 % (19-41); Mean Corp Hgb Conc 29.5 g/dL (32-36); Mean Corpuscular Hgb 30.2 pg (27.0-32.0); Mean Corpuscular Volume 102.3 fL (81-99); Mean Platelet Vol. 9.9 fl (6.2-12.0); Monocyte% 10.1 % (0-10); NRBC Flagged by Analyzer 0 % (0-5); Neutrophil # 8.11 X10^3/uL (2.7-7.7); Neutrophil % 74.9 % (47-70); POSITIVE MORPHOLOGY YES; Platelet Count 160 K/mm3 (150-450); RBC Distribution Width CV 20.7 % (11.6-14.6); RBC Distribution Width SD 77.2 fl (35.1-43.9); Red Blood Count 2.65 M/mm3 (4.2-5.4); White Blood Count 10.8 K/mm3 (4.4-11.0)
[2021-11-26 22:20] LABS: Differential Indicated SCAN CRITERIA MET
[2021-11-26 22:31] LABS: Anion Gap 2 (5-15); BUN 38 mg/dL (7-18); BUN/Creat Ratio 7.8 RATIO (10-20); Calcium,Total 8.9 mg/dL (8.5-10.1); Chloride 101 mmol/L (98-107); EST Glomerular Filtration Rate 9 mL/min (>60); Est Glom Filt Rate - Afr Amer 11 mL/min (>60); Estimated Creatinine Clearance 11.32 ml/min; Glucose 82 mg/dL (74-106); Potassium 5.2 mmol/L (3.5-5.1); Sodium Level 137 mmol/L (136-145)
[2021-11-26 22:41] LABS: Anisocytosis 2+; Hypochromasia 1+; Macrocytosis 1+; Platelet Estimate ADEQUATE (ADEQ); Red Cell Morphology N CHROM NORMAL (NORM C&C)
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
[2021-11-26 23:22] VITALS: BP 178/76; PULSE 68; RESP 16; TEMP 36.9; O2SAT 100
== END 2021-11-26 23:27 | disposition home or self-care (01) ==
PROVIDERS: Emergency Provider Student in an Organized Health Care Education/Training Program; PCP Family Medicine; Visit Provider Student in an Organized Health Care Education/Training Program
DX: J44.1 Chronic obstructive pulmonary disease with (acute) exacerbation (principal); I13.2 Hypertensive heart and chronic kidney disease with heart failure and with stage 5 chronic kidney disease, or end stage renal disease; Z99.2 Dependence on renal dialysis; I50.22 Chronic systolic (congestive) heart failure; E11.22 Type 2 diabetes mellitus with diabetic chronic kidney disease; N18.6 End stage renal disease; I48.0 Paroxysmal atrial fibrillation; I25.2 Old myocardial infarction; E78.00 Pure hypercholesterolemia, unspecified; D63.1 Anemia in chronic kidney disease; K21.9 Gastro-esophageal reflux disease without esophagitis; F17.210 Nicotine dependence, cigarettes, uncomplicated; Z79.01 Long term (current) use of anticoagulants; Z79.899 Other long term (current) drug therapy; Z86.73 Personal history of transient ischemic attack (TIA), and cerebral infarction without residual deficits; Z86.718 Personal history of other venous thrombosis and embolism
CPT/HCPCS: 94760; 99284; 71045; 80048; 85025; 87426; 94640

== ENCOUNTER 2021-11-27 06:51 | Inpatient (IN) | payer MEDICARE, MEDICAID, SELFPAY ==
[2021-11-27] VITALS (20 sets, daily range): BP systolic 144–218; BP diastolic 55–123; PULSE 58–103; RESP 14–37; TEMP 36.3–36.9; O2SAT 94–100; BMI 26.0; BMI 25.2
--- NOTE | 2021-11-27 07:08 | EKG12_ITS ---
Test Reason : CHEST PAIN Blood Pressure : / mmHG Vent. Rate : 088 BPM Atrial Rate : 097 BPM P-R Int : 000 ms QRS Dur : 090 ms QT Int : 390 ms P-R-T Axes : 000 020 042 degrees QTc Int : 471 ms Atrial fibrillation with premature ventricular or aberrantly conducted complexes Abnormal ECG Confirmed by TERE LEMON, JAN ([id number]), scientific editor HERMAN SERNA ([id number]) on 11/29/2021 1:20:16 PM Referred By: BRENNAN Confirmed By:JAN CARRANZA MD
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
[2021-11-27] MEDS: Ipratropium/Albuterol Sulfate 3 ML AMPUL.NEB INHALATION ×3 (07:15→19:05)
[2021-11-27] MEDS: hydrALAZINE 20 MG/ML Vial 10 MG IV (07:38)
[2021-11-27] MEDS: MethylPREDNISolone 125 MG/2 ML Vial IV (07:38)
[2021-11-27 07:42] LABS: Absolute Lymphocyte Count 1.67 X10^3/uL (0.83-4.51); Absolute Neutrophil Count 16.3 X10^3/uL (2.0-7.7); Basophil# 0.06 X10^3/uL; Basophil% 0.3 % (0-1); Eosinophil# 0.26 X10^3/uL; Eosinophils% 1.3 % (0-5); Hemoglobin 8.1 g/dL (12.0-15.0); Lymphocyte # 1.67 X10^3/ul (0.83-4.51); Lymphocyte % 8.5 % (19-41); Mean Corpuscular Hgb 30.5 pg (27.0-32.0); Mean Corpuscular Volume 101.5 fL (81-99); Mean Platelet Vol. 9.6 fl (6.2-12.0); Monocyte# 1.16 X10^3/uL; Monocyte% 5.9 % (0-10); NRBC Flagged by Analyzer 0 % (0-5); Neutrophil # 16.25 X10^3/uL (2.7-7.7); Neutrophil % 83.2 % (47-70); POSITIVE MORPHOLOGY YES; Platelet Count 142 K/mm3 (150-450); RBC Distribution Width CV 20.5 % (11.6-14.6); RBC Distribution Width SD 75.9 fl (35.1-43.9); Red Blood Count 2.66 M/mm3 (4.2-5.4); White Blood Count 19.6 K/mm3 (4.4-11.0)
--- NOTE | 2021-11-27 07:45 | RAD_ITS ---
STUDY: X-RAY CHEST REASON FOR EXAM: Female, 71 years old. sob TECHNIQUE: Single AP portable view of the chest. COMPARISON: 11/26/2021 FINDINGS: : Right internal jugular dialysis catheter which is unchanged. The lungs are clear and expanded. No change in the small bilateral pleural effusions with some bibasilar atelectasis. There is moderate cardiac enlargement. Normal mediastinum and farhan. Normal visualized pulmonary arteries. Normal visualized aortic arch and descending thoracic aorta. Normal visualized thoracic spine. Normal visualized ribs, clavicles, and shoulders. There is no demonstrated abnormality of the visualized soft tissue structures of the upper abdomen. RAD/Chest 1 View (Portable) IMPRESSION: No change from 11/26/2021. Electronically Signed: Peña Linder MD at 8:09 EDT ,
[2021-11-27 07:52] LABS: Differential Indicated SCAN CRITERIA MET
[2021-11-27 07:56] LABS: Anion Gap 6 (5-15); BUN 44 mg/dL (7-18); BUN/Creat Ratio 7.6 RATIO (10-20); Calcium,Total 8.7 mg/dL (8.5-10.1); Chloride 103 mmol/L (98-107); Creatinine, Serum 5.79 mg/dL (0.55-1.02); EST Glomerular Filtration Rate 8 mL/min (>60); Est Glom Filt Rate - Afr Amer 9 mL/min (>60); Estimated Creatinine Clearance 9.58 ml/min; Glucose 123 mg/dL (74-106); Potassium 5.1 mmol/L (3.5-5.1); Sodium Level 140 mmol/L (136-145); Troponin-I HS 27 pg/mL (3.0-54.0)
[2021-11-27] MEDS: levoFLOXacin IV 750 MG/150 ML BAG 100 MG IV (08:10)
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
--- NOTE | 2021-11-27 08:13 | NURSING ---
DR AMIN FOR DR FUCHS
[2021-11-27 08:15] LABS: Anisocytosis 2+; Differential Comment SCANNED; Macrocytosis 1+; Microcytosis 1+
--- NOTE | 2021-11-27 08:17 | NURSING ---
[facility]ILTON AMIN COPD EXAC
[2021-11-27] MEDS: Morphine 2 MG/ML Syringe IV ×2 (09:34→14:59)
[2021-11-27] MEDS: amLODIPine 10 MG Tablet PO (09:34)
[2021-11-27] MEDS: Pantoprazole Sodium 20 MG Tablet PO (09:34)
[2021-11-27] MEDS: Atenolol 50 MG Tablet PO (09:34)
[2021-11-27] MEDS: Dicyclomine 10 MG Capsule 20 MG PO ×2 (11:04→16:20)
[2021-11-27] MEDS: APIXABAN 2.5 MG TABLET PO ×2 (11:05→20:56)
[2021-11-27] MEDS: Calcium Acetate 667 MG Capsule 2001 MG PO ×2 (11:05→16:20)
[2021-11-27] MEDS: DULoxetine Hcl 20 MG Capsule 40 MG PO (11:06)
[2021-11-27 11:11] LABS: Bedside Glucose 103 mg/dL (74-106)
[2021-11-27] MEDS: oxyCODONE 5 MG Tablet 10 MG PO (11:12)
[2021-11-27] MEDS: 0.9% Saline Lock 10 ML Syringe IV ×2 (14:59→21:10)
[2021-11-27] MEDS: hydrALAZINE 50 MG Tablet 100 MG PO ×2 (14:59→20:55)
[2021-11-27] MEDS: Gabapentin 300 MG Capsule PO (16:20)
[2021-11-27] MEDS: Insulin Lispro 100 UNIT/ML INSULN.PEN SC ×2 (16:21→21:04)
[2021-11-27 16:41] LABS: Bedside Glucose 153 mg/dL (74-106)
[2021-11-27] MEDS: Lactulose 20 GM/30 ML UDC PO (20:50)
[2021-11-27] MEDS: Mirtazapine 15 MG Tablet 45 MG PO (20:57)
[2021-11-27] MEDS: Montelukast 10 MG Tablet PO (20:59)
[2021-11-28] VITALS (20 sets, daily range): BP systolic 134–172; BP diastolic 58–76; PULSE 56–90; RESP 14–24; TEMP 36–37.2; O2SAT 97–100
[2021-11-28 01:20] LABS: Bedside Glucose 214 mg/dL (74-106)
[2021-11-28 05:19] LABS: Absolute Lymphocyte Count 0.54 X10^3/uL (0.83-4.51); Absolute Neutrophil Count 11.2 X10^3/uL (2.0-7.7); Basophil# 0.01 X10^3/uL; Basophil% 0.1 % (0-1); Hematocrit 25.7 % (37-47); Hemoglobin 7.7 g/dL (12.0-15.0); Lymphocyte # 0.54 X10^3/ul (0.83-4.51); Lymphocyte % 4.4 % (19-41); Mean Corpuscular Hgb 30.7 pg (27.0-32.0); Mean Corpuscular Volume 102.4 fL (81-99); Mean Platelet Vol. 9.8 fl (6.2-12.0); Monocyte# 0.39 X10^3/uL; Monocyte% 3.2 % (0-10); NRBC Flagged by Analyzer 0.2 % (0-5); Neutrophil # 11.19 X10^3/uL (2.7-7.7); Neutrophil % 91.8 % (47-70); POSITIVE DIFFERENTIAL YES; POSITIVE MORPHOLOGY YES; Platelet Count 140 K/mm3 (150-450); RBC Distribution Width CV 20.6 % (11.6-14.6); RBC Distribution Width SD 77.1 fl (35.1-43.9); Red Blood Count 2.51 M/mm3 (4.2-5.4); White Blood Count 12.2 K/mm3 (4.4-11.0)
[2021-11-28 05:27] LABS: Differential Indicated SCAN CRITERIA MET
[2021-11-28 05:44] LABS: Anion Gap 7 (5-15); BUN 62 mg/dL (7-18); BUN/Creat Ratio 9.1 RATIO (10-20); Calcium,Total 8.8 mg/dL (8.5-10.1); Chloride 100 mmol/L (98-107); Creatinine, Serum 6.83 mg/dL (0.55-1.02); EST Glomerular Filtration Rate 6 mL/min (>60); Est Glom Filt Rate - Afr Amer 8 mL/min (>60); Estimated Creatinine Clearance 8.12 ml/min; Glucose 188 mg/dL (74-106); Potassium 5.9 mmol/L (3.5-5.1); Sodium Level 135 mmol/L (136-145)
[2021-11-28] MEDS: 0.9% Saline Lock 10 ML Syringe IV ×3 (06:04→20:54)
[2021-11-28] MEDS: hydrALAZINE 50 MG Tablet 100 MG PO ×2 (06:05→22:19)
[2021-11-28] MEDS: Dicyclomine 10 MG Capsule 20 MG PO ×3 (06:40→17:52)
[2021-11-28 06:41] LABS: Anisocytosis 3+; Differential Comment SCANNED
[2021-11-28 06:42] LABS: Macrocytosis 3+; Microcytosis RARE
[2021-11-28 06:46] LABS: Bedside Glucose 143 mg/dL (74-106)
[2021-11-28] MEDS: Ipratropium/Albuterol Sulfate 3 ML AMPUL.NEB INHALATION ×3 (06:46→20:40)
--- NOTE | 2021-11-28 09:59 | EKG12_ITS ---
Test Reason : SOB Blood Pressure : / mmHG Vent. Rate : 092 BPM Atrial Rate : 092 BPM P-R Int : 144 ms QRS Dur : 078 ms QT Int : 358 ms P-R-T Axes : 078 009 089 degrees QTc Int : 442 ms Normal sinus rhythm Nonspecific ST and T wave abnormality Abnormal ECG When compared with ECG of 13-NOV-2021 00:40, Premature atrial complexes are no longer Present Nonspecific T wave abnormality, improved in Lateral leads Confirmed by TERE LEMON, JAN ([id number]), editor & co founder BIRDIE TORRES ([id number]) on 11/30/2021 12:20:26 PM Referred By: LIZET Confirmed By:JAN CARRANZA MD
[2021-11-28] MEDS: Nitroglycerin (INPATIENT USE) 0.4 MG TAB.SUBL SL ×2 (10:00→20:26)
[2021-11-28] MEDS: DULoxetine Hcl 20 MG Capsule 40 MG PO (10:28)
[2021-11-28] MEDS: APIXABAN 2.5 MG TABLET PO ×2 (10:28→22:20)
[2021-11-28] MEDS: Pantoprazole Sodium 20 MG Tablet PO (10:28)
[2021-11-28] MEDS: Calcium Acetate 667 MG Capsule 2001 MG PO ×3 (10:28→17:52)
--- NOTE | 2021-11-28 10:34 | PN.HOSP_ITS ---
Subjective Subjective Patient seen and examined. She said she was feeling much better today. Her shortness of breath had improved and she was off the bipap and on oxygen by nasal canula. She had no other complaints and review of systems was otherwise negative. Later in the morning, she did start complaining of chest pain which subsequently resolved. EKG showed no acute ST changes. She is for dialysis today. Objective Data Objective Data Vital Signs: Vital Signs Temp Pulse Resp BP Pulse Ox 96.8 F L 63 18 139/58 H 100 11/28/21 09:45 11/28/21 10:11 11/28/21 10:11 11/28/21 10:11 11/28/21 10:11 Oxygen Flow Rate (L/min) 2 Oxygen Delivery Method Nasal Cannula Weight: 171 lb 1.259 oz Body Mass Index (BMI) 25.2 Intake & Output: Intake and Output for Last 24 Hours 11/26/21 11/27/21 11/28/21 23:59 23:59 23:59 Intake Total 450 / 450 Balance 450 / 450 Lab / Micro Data Result Diagrams: 11/28/21 04:33 11/28/21 04:33 Labs: Laboratory Results - last 24 hr 11/27/21 11:03: POC Glucose 103 11/27/21 16:16: POC Glucose 153 H 11/27/21 21:03: POC Glucose 214 H 11/28/21 04:33: WBC 12.2 H, RBC 2.51 L, Hgb 7.7 L, Hct 25.7 L, MCV 102.4 H, MCH 30.7, MCHC 30.0 L, RDW Std Deviation 77.1 H, RDW Coeff of Destiny 20.6 H, Plt Count 140 L, MPV 9.8, Immature Gran % (Auto) 0.500, Neut % (Auto) 91.8 H, Lymph % (Auto) 4.4 L, [place] % (Auto) 3.2, Eos % (Auto) 0.0, Baso % (Auto) 0.1, Absolute Neuts (auto) 11.2 H, Absolute Lymphs (auto) 0.54 L, Nucleated RBC % 0.2, Differential Comment SCANNED, Anisocytosis 3+, Microcytosis RARE, Macrocytosis 3+ 11/28/21 04:33: Sodium 135 L, Potassium 5.9 H, Chloride 100, Carbon Dioxide 28.0, Anion Gap 7, BUN 62 H, Creatinine 6.83 H, Estim Creat Clear Calc 8.12, Est GFR (MDRD) Af Amer 8 L, Est GFR (MDRD) Non-Af 6 L, BUN/Creatinine Ratio 9.1 L, Glucose 188 H, Calcium 8.8 11/28/21 06:37: POC Glucose 143 H Physical Exam Const alert, oriented x3 and no apparent distress General Appearance: cooperative Exam Limitations: no limitations HEENT normocephalic, head/scalp atraumatic, hearing grossly normal bilaterally and moist oral mucous membranes Head and Scalp: normocephalic Eyes PERRL, EOMs intact bilaterally and conjunctivae normal Neck no lymphadenopathy, supple and no JVD Resp Resp Narrative: diminished breath sounds bibasally, no wheezes or crackles. on 2L of oxygen by nasal canula Cardio regular rate, regular rhythm, S1 normal heart sound, S2 normal heart sound and no murmurs GI normal to inspection, nondistended, normoactive bowel sounds, soft to palpation, non-tender and non-distended Extremity normal to inspection, full ROM and no clubbing, cyanosis or edema Peripheral Pulses: Yes pulses 2+ throughout Skin no rashes or lesions noted Neuro oriented x3, CN's II-XII intact bilaterally and moves all extremities Sensorium / Orientation: awake and alert Psych affect normal Assessment & Plan Assessment/Plan (1) COPD exacerbation: (2) Acute and chronic respiratory failure with hypoxia: PLAN: #Acute on chronic hypoxic respiratory failure due to acute COPD exacerbation * aon IV solumedrol, breathing treatment wtih bronchodilators and IV levaquine * titrate oxygen to maintain sats>90% * #Chronic anemia due to ESRD * stable. * transfuse if Hb <7 * #ESRD * on dialysis MWF * says she had a full session of dialysis last Sunday * consult nephrology for dialysis * for dialysis today * #Hyperkalemia: * due to ESRD. Potassium is 5.9 today. This should resolve with dialysis * #paroxysmal afib * rate controlled * on eliquis * #Hypertension:on atenolol #TYpe 2 diabetes mellitus * ISS. Accuchecks ACHS * #History of DVT: on eliquis #Depression and anxiety: on duloxetine #GERD; stable. on PPI DVT prophylaxis: not indicated as she is already on eliquis. Code status: full code. * Charges/Coding Visit Charges Inpatient E&M: 82689 Subs Hosp L2
[2021-11-28] MEDS: Insulin Lispro 100 UNIT/ML INSULN.PEN SC ×3 (12:26→22:17)
[2021-11-28 12:31] LABS: Bedside Glucose 208 mg/dL (74-106)
[2021-11-28] MEDS: oxyCODONE 5 MG Tablet 10 MG PO (14:00)
[2021-11-28] MEDS: Midodrine HCl 5 MG Tablet 10 MG PO (14:07)
[2021-11-28 16:00] LABS: Bedside Glucose 164 mg/dL (74-106)
[2021-11-28] MEDS: Heparin 10,000 UNITS/10 ML Vial 1000 UNITS IV (19:19)
--- NOTE | 2021-11-28 19:26 | DIALYSIS ---
Hemodialysis complete via right chest tunneled dialysis CVC with 4 liters fluid removed. Dialysis CVC dressing changed, site clean and dry. Pt tolerated treatment without difficulty.
--- NOTE | 2021-11-28 20:20 | EKG12_ITS ---
Test Reason : CHEST PAIN Blood Pressure : / mmHG Vent. Rate : 064 BPM Atrial Rate : 064 BPM P-R Int : 162 ms QRS Dur : 084 ms QT Int : 432 ms P-R-T Axes : 073 016 038 degrees QTc Int : 445 ms Normal sinus rhythm Normal ECG When compared with ECG of 27-NOV-2021 07:12, MANUAL COMPARISON REQUIRED, DATA IS UNCONFIRMED Confirmed by TERE LEMON, JAN ([id number]), brands editor BIRDIE TORRES ([id number]) on 11/30/2021 12:21:52 PM Referred By: BRENNAN Confirmed By:JAN CARRANZA MD
[2021-11-28] MEDS: Morphine 2 MG/ML Syringe IV (20:54)
[2021-11-28 21:29] LABS: Troponin-I HS 21 pg/mL (3.0-54.0)
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
[2021-11-28] MEDS: Mirtazapine 15 MG Tablet 45 MG PO (22:19)
[2021-11-28] MEDS: Atenolol 50 MG Tablet PO (22:19)
[2021-11-28] MEDS: Lactulose 20 GM/30 ML UDC PO (22:20)
[2021-11-28] MEDS: Montelukast 10 MG Tablet PO (22:21)
[2021-11-28] MEDS: Folic Acid/Vitamin B Comp W-C 1 Capsule 1 CAP PO (22:21)
[2021-11-28] MEDS: Gabapentin 600 MG Tablet PO (22:24)
[2021-11-28 22:35] LABS: Bedside Glucose 183 mg/dL (74-106)
[2021-11-28 23:11] LABS: Troponin-I HS 23 pg/mL (3.0-54.0)
[2021-11-29] VITALS (21 sets, daily range): BP systolic 136–172; BP diastolic 67–105; PULSE 57–83; RESP 14–20; TEMP 36.2–37.2; O2SAT 98–100
[2021-11-29 04:35] LABS: Absolute Lymphocyte Count 0.63 X10^3/uL (0.83-4.51); Absolute Neutrophil Count 16.9 X10^3/uL (2.0-7.7); Basophil# 0.02 X10^3/uL; Basophil% 0.1 % (0-1); Hematocrit 26.9 % (37-47); Hemoglobin 7.7 g/dL (12.0-15.0); Lymphocyte # 0.63 X10^3/ul (0.83-4.51); Lymphocyte % 3.4 % (19-41); Mean Corp Hgb Conc 28.6 g/dL (32-36); Mean Corpuscular Hgb 29.5 pg (27.0-32.0); Mean Corpuscular Volume 103.1 fL (81-99); Mean Platelet Vol. 10.1 fl (6.2-12.0); Monocyte# 0.94 X10^3/uL; NRBC Flagged by Analyzer 0.8 % (0-5); Neutrophil # 16.88 X10^3/uL (2.7-7.7); Neutrophil % 90.5 % (47-70); POSITIVE MORPHOLOGY YES; Platelet Count 175 K/mm3 (150-450); RBC Distribution Width CV 21.1 % (11.6-14.6); RBC Distribution Width SD 78.5 fl (35.1-43.9); Red Blood Count 2.61 M/mm3 (4.2-5.4); White Blood Count 18.7 K/mm3 (4.4-11.0)
[2021-11-29 04:38] LABS: Differential Indicated SCAN CRITERIA MET
[2021-11-29 05:03] LABS: Anisocytosis 2+; Macrocytosis 1+; Troponin-I HS 20 pg/mL (3.0-54.0)
[2021-11-29 05:17] LABS: Anion Gap 7 (5-15); BUN 35 mg/dL (7-18); BUN/Creat Ratio 7.8 RATIO (10-20); Calcium,Total 8.2 mg/dL (8.5-10.1); Chloride 102 mmol/L (98-107); Creatinine, Serum 4.49 mg/dL (0.55-1.02); EST Glomerular Filtration Rate 10 mL/min (>60); Est Glom Filt Rate - Afr Amer 13 mL/min (>60); Estimated Creatinine Clearance 12.36 ml/min; Glucose 195 mg/dL (74-106); Potassium 4.7 mmol/L (3.5-5.1); Sodium Level 138 mmol/L (136-145)
[2021-11-29] MEDS: Dicyclomine 10 MG Capsule 20 MG PO ×3 (06:36→16:30)
[2021-11-29] MEDS: 0.9% Saline Lock 10 ML Syringe IV ×5 (06:36→20:52)
[2021-11-29] MEDS: hydrALAZINE 50 MG Tablet 100 MG PO ×3 (06:36→21:00)
[2021-11-29 06:51] LABS: Bedside Glucose 115 mg/dL (74-106)
[2021-11-29] MEDS: Ipratropium/Albuterol Sulfate 3 ML AMPUL.NEB INHALATION ×3 (07:09→19:00)
[2021-11-29] MEDS: Calcium Acetate 667 MG Capsule 2001 MG PO ×3 (08:34→16:30)
[2021-11-29] MEDS: APIXABAN 2.5 MG TABLET PO ×2 (08:35→21:01)
[2021-11-29] MEDS: Pantoprazole Sodium 20 MG Tablet PO (08:35)
[2021-11-29] MEDS: DULoxetine Hcl 20 MG Capsule 40 MG PO (08:35)
[2021-11-29] MEDS: Atenolol 50 MG Tablet PO (08:35)
[2021-11-29] MEDS: amLODIPine 10 MG Tablet PO (08:35)
--- NOTE | 2021-11-29 09:10 | CASEMGMT ---
Patient is from [facility]. faxed clinicals to [facility]. Evy Paredes SEISMOGRAPH SHOOTERWill GONZALEZ
[2021-11-29] MEDS: levoFLOXacin IV 500 MG/100 ML BAG 100 MG IV (09:50)
--- NOTE | 2021-11-29 10:49 | PN.HOSP_ITS ---
Subjective Subjective Patient seen and examined. She states she has some chest pain again overnight. It appears that this is chronic and longstanding complaint. She still wheezing. Review of systems otherwise negative. She did have dialysis yesterday. Objective Data Objective Data Vital Signs: Vital Signs Temp Pulse Resp BP Pulse Ox 98.9 F 71 18 152/105 H 99 11/29/21 08:30 11/29/21 08:30 11/29/21 08:30 11/29/21 08:30 11/29/21 08:30 Oxygen Flow Rate (L/min) 2 Oxygen Delivery Method Nasal Cannula Weight: 171 lb 1.259 oz Body Mass Index (BMI) 25.2 Intake & Output: Intake and Output for Last 24 Hours 11/27/21 11/28/21 11/29/21 23:59 23:59 23:59 Intake Total 450 / 450 880 / 880 Output Total 4300 / 4300 Balance 450 / 450 -3420 / -3420 Lab / Micro Data Result Diagrams: 11/29/21 03:29 11/29/21 03:29 Labs: Laboratory Results - last 24 hr 11/28/21 12:17: POC Glucose 208 H 11/28/21 15:49: POC Glucose 164 H 11/28/21 21:00: Troponin I High Sens 11/28/21 22:14: POC Glucose 183 H 11/28/21 22:40: Troponin I High Sens 11/29/21 03:29: WBC 18.7 H, RBC 2.61 L, Hgb 7.7 L, Hct 26.9 L, MCV 103.1 H, MCH 29.5, MCHC 28.6 L, RDW Std Deviation 78.5 H, RDW Coeff of Destiny 21.1 H, Plt Count 175, MPV 10.1, Immature Gran % (Auto) 1.000 H, Neut % (Auto) 90.5 H, Lymph % (Auto) 3.4 L, [place] % (Auto) 5.0, Eos % (Auto) 0.0, Baso % (Auto) 0.1, Absolute Neuts (auto) 16.9 H, Absolute Lymphs (auto) 0.63 L, Nucleated RBC % 0.8, Anisocytosis 2+, Macrocytosis 1+ 11/29/21 03:29: Sodium 138, Potassium 4.7, Chloride 102, Carbon Dioxide 29.0, Anion Gap 7, BUN 35 H, Creatinine 4.49 H, Estim Creat Clear Calc 12.36, Est GFR (MDRD) Af Amer 13 L, Est GFR (MDRD) Non-Af 10 L, BUN/Creatinine Ratio 7.8 L, Glucose 195 H, Calcium 8.2 L 11/29/21 03:29: Troponin I High Sens 20 11/29/21 06:29: POC Glucose 115 H Physical Exam Const alert, oriented x3 and no apparent distress General Appearance: cooperative Exam Limitations: no limitations HEENT normocephalic, head/scalp atraumatic, hearing grossly normal bilaterally and moist oral mucous membranes Head and Scalp: normocephalic Eyes PERRL, EOMs intact bilaterally and conjunctivae normal Neck no lymphadenopathy, supple and no JVD Resp Resp Narrative: diminished breath sounds bibasally, mild wheezing bilaterally. on 2L of oxygen by nasal canula Cardio regular rate, regular rhythm, S1 normal heart sound, S2 normal heart sound and no murmurs GI normal to inspection, nondistended, normoactive bowel sounds, soft to palpation, non-tender and non-distended Extremity normal to inspection, full ROM and no clubbing, cyanosis or edema Skin no rashes or lesions noted Neuro oriented x3, CN's II-XII intact bilaterally and moves all extremities Sensorium / Orientation: awake and alert Psych affect normal Assessment & Plan Assessment/Plan (1) COPD exacerbation: (2) Acute and chronic respiratory failure with hypoxia: PLAN: #Acute on chronic hypoxic respiratory failure due to acute COPD exacerbation * on IV solumedrol, breathing treatment wtih bronchodilators and IV levaquine * titrate oxygen to maintain sats>90% * #Chronic anemia due to ESRD * stable. * transfuse if Hb <7 * hb today is 7.7 * #ESRD * on dialysis MWF * says she had a full session of dialysis last Sunday * consult nephrology for dialysis * had dialysis yesterday * #Hyperkalemia: * due to ESRD. resolved with dialysis * #paroxysmal afib * rate controlled * on eliquis * #Hypertension:on atenolol #TYpe 2 diabetes mellitus * ISS. Accuchecks ACHS * #History of DVT: on eliquis #Depression and anxiety: on duloxetine #GERD; stable. on PPI DVT prophylaxis: not indicated as she is already on eliquis. Code status: full code. * Disposition: anticipate dc back to her assisted living facility over the next 1- 2 days. Charges/Coding Visit Charges Inpatient E&M: 77274 Subs Hosp L2
[2021-11-29] MEDS: oxyCODONE 5 MG Tablet 10 MG PO (11:35)
[2021-11-29] MEDS: Insulin Lispro 100 UNIT/ML INSULN.PEN SC ×3 (11:36→21:01)
--- NOTE | 2021-11-29 11:40 | NURSING ---
Pt only given 1 unit humalog per pt request for glucose of 183.
[2021-11-29 11:55] LABS: Bedside Glucose 183 mg/dL (74-106)
--- NOTE | 2021-11-29 13:12 | CASEMGMT ---
REGGIE FAN NOTE: [place] [facility] [place] 2 l/m @ rest and 4 l/m w/exertion. Tanmay GARCIA RN CM
--- NOTE | 2021-11-29 13:27 | CASEMGMT ---
REGGIE FAN readmission note: Previous admission: Admitted 11/13/21 w/acute exac COPD and suspected pneumonia. Blood and sputum cx's sent. Pt managed w/systemic steroids, atb therapy, and supplemental oxygen. Pt also with history of ESRD and receives HD @ [facility] MWF. Initially SNF recommended by therapy, but by day of discharge therapy said pt was okay to return to [place]. HHC was discussed w/pt and daughter, Salima, but they declined at that time. Pt later had ED visit on 11/27/2021 with SOB. Pt sent back to [facility] on steroids. Current admission: Pt admitted 11/27 w/ A on C hypoxic resp failure secondary to COPD exac. Pt is currently on baseline O2 of 2 l/m @ rest. Pt is active w/[facility]. Neha @ Palliative notified of pt admission to [facility]. Call placed to Leann @ [facility]. Pt gets HD MWF w/chair time of 11:20 AM, arrival @ 11 AM. PT/OT evals/notes reviewed. Additional therapy recommended. [facility] to follow for any needs for safe discharge. Tanmay GARCIA RN, CM
[2021-11-29] MEDS: Nitroglycerin (INPATIENT USE) 0.4 MG TAB.SUBL SL (13:54)
[2021-11-29] MEDS: Morphine 2 MG/ML Syringe IV (13:58)
--- NOTE | 2021-11-29 14:18 | CASEMGMT ---
Addendum entered by Evy Paredes 11/29/21 14:41: SW called [facility] regarding referral and also faxed referral. Evy GONZALEZ Original Note: SW spoke with patient. Patient is familiar to this SW from previous admissions. SW spoke with patient about a discharge plan. She said she will do whatever is recommended. SW asked patient if she would want to go to [facility] as this is where she was going to go last time. Patient confirmed that is where she would want to go. SW told patient SW will make the referral and if she gets better and can go home SW can cancel the referral. Patient was in agreement with this plan. SW will contact [facility] and send referral. Evy GONZALEZ
--- NOTE | 2021-11-29 15:37 | CHAPLAIN ---
Type of Pastoral Visit _x__ Initial Visit ___ Follow-up Visit ___ On-call Visit ___ General Patient Visit ___ Spiritual Assessment ___ Family Conference ___ Bereavement ___ Rapid Response ___ Code Blue ___ Other (describe below) Pastoral Care Referral From _x__ Patient ___ Family ___ Nurse ___ Physician ___ Senior Estimator ___ Therapeutic Mentor ___ Other (describe below) Sacrament/Intervention _x__ Active listening ___ Anointing ___ Mandaen ___ Bereavement ___ Communion ___ Flaca exploration ___ ___ Life review _x__ Prayer ___ Reconciliation ___ Sacrament of Sick _x__ Supportive presence ___ Wedding ___ Other (describe below) Pastoral Comments patient is a repeat admission and known by previous visits; pt states that she just wants to get well and that I am tired of something going wrong every two weeks or every month; asked about how she is coping and pt answers just a day at a time; pt states that she prays everyday and knows that God is with her; prayer and presence given
[2021-11-29] MEDS: Gabapentin 300 MG Capsule PO (16:30)
--- NOTE | 2021-11-29 16:50 | PCM.PN.REN ---
Subjective Subjective Following for ESRD. The patient reports that her breathing is improved. She denies chest pain, nausea or vomiting. Objective Data Objective Data Vital Signs: Vital Signs Temp Pulse Resp BP Pulse Ox 98.1 F 60 18 136/67 H 99 11/29/21 13:52 11/29/21 15:00 11/29/21 13:52 11/29/21 14:11 11/29/21 14:04 Oxygen Flow Rate (L/min) 2 Oxygen Delivery Method Nasal Cannula Weight: 77.6 kg Body Mass Index (BMI) 25.2 Intake & Output: Intake and Output for Last 24 Hours 11/27/21 11/28/21 11/29/21 23:59 23:59 23:59 Intake Total 450 / 450 880 / 880 340 / 340 Output Total 4300 / 4300 Balance 450 / 450 -3420 / -3420 340 / 340 Lab / Micro Data Result Diagrams: 11/29/21 03:29 11/29/21 03:29 Labs: Laboratory Results - last 24 hr 11/28/21 21:00: Troponin I High Sens 11/28/21 22:14: POC Glucose 183 H 11/28/21 22:40: Troponin I High Sens 11/29/21 03:29: WBC 18.7 H, RBC 2.61 L, Hgb 7.7 L, Hct 26.9 L, MCV 103.1 H, MCH 29.5, MCHC 28.6 L, RDW Std Deviation 78.5 H, RDW Coeff of Destiny 21.1 H, Plt Count 175, MPV 10.1, Immature Gran % (Auto) 1.000 H, Neut % (Auto) 90.5 H, Lymph % (Auto) 3.4 L, [place] % (Auto) 5.0, Eos % (Auto) 0.0, Baso % (Auto) 0.1, Absolute Neuts (auto) 16.9 H, Absolute Lymphs (auto) 0.63 L, Nucleated RBC % 0.8, Anisocytosis 2+, Macrocytosis 1+ 11/29/21 03:29: Sodium 138, Potassium 4.7, Chloride 102, Carbon Dioxide 29.0, Anion Gap 7, BUN 35 H, Creatinine 4.49 H, Estim Creat Clear Calc 12.36, Est GFR (MDRD) Af Amer 13 L, Est GFR (MDRD) Non-Af 10 L, BUN/Creatinine Ratio 7.8 L, Glucose 195 H, Calcium 8.2 L 11/29/21 03:29: Troponin I High Sens 20 11/29/21 06:29: POC Glucose 115 H 11/29/21 11:29: POC Glucose 183 H Physical Exam Narrative General: Alert and oriented x3, NAD. Heart: Normal S1, S2. No rubs or murmurs. Lungs: Expiratory wheezing diffusely. Abdomen: Soft, nontender, no guarding or rebound. Extremity: No clubbing, cyanosis or edema. Assessment & Plan Assessment/Plan (1) ESRD (end stage renal disease): PLAN: - Continue dialysis on MWF schedule. -No need for dialysis today. -We will arrange for dialysis tomorrow. (2) HTN (hypertension): QUALIFIERS: Hypertension type: essential hypertension Qualified Code(s): I10 - Essential (primary) hypertension PLAN: - BP is reasonably controlled. -Continue current antihypertensives and target weight on dialysis. (3) COPD exacerbation: PLAN: - Clinically improved. -Treatment as per hospital medicine service.
[2021-11-29 16:51] LABS: Bedside Glucose 218 mg/dL (74-106)
[2021-11-29] MEDS: Lactulose 20 GM/30 ML UDC PO (21:00)
[2021-11-29] MEDS: Mirtazapine 15 MG Tablet 45 MG PO (21:01)
[2021-11-29] MEDS: Montelukast 10 MG Tablet PO (21:02)
[2021-11-29 22:51] LABS: Bedside Glucose 291 mg/dL (74-106)
[2021-11-30] VITALS (17 sets, daily range): BP systolic 160–177; BP diastolic 65–74; PULSE 55–91; RESP 14–24; TEMP 36.2–36.9; O2SAT 95–100
[2021-11-30] MEDS: hydrALAZINE 50 MG Tablet 100 MG PO ×3 (06:11→22:00)
[2021-11-30] MEDS: Dicyclomine 10 MG Capsule 20 MG PO ×2 (06:13→14:30)
[2021-11-30] MEDS: 0.9% Saline Lock 10 ML Syringe IV ×3 (06:19→22:07)
[2021-11-30] MEDS: Ipratropium/Albuterol Sulfate 3 ML AMPUL.NEB INHALATION ×3 (06:59→20:18)
[2021-11-30 07:46] LABS: Bedside Glucose 125 mg/dL (74-106)
[2021-11-30 08:11] LABS: Absolute Lymphocyte Count 0.75 X10^3/uL (0.83-4.51); Absolute Neutrophil Count 14.9 X10^3/uL (2.0-7.7); Basophil# 0.02 X10^3/uL; Basophil% 0.1 % (0-1); Hematocrit 27.1 % (37-47); Hemoglobin 8.1 g/dL (12.0-15.0); Lymphocyte # 0.75 X10^3/ul (0.83-4.51); Lymphocyte % 4.5 % (19-41); Mean Corp Hgb Conc 29.9 g/dL (32-36); Mean Corpuscular Hgb 30.3 pg (27.0-32.0); Mean Corpuscular Volume 101.5 fL (81-99); Mean Platelet Vol. 9.3 fl (6.2-12.0); Monocyte% 3.6 % (0-10); NRBC Flagged by Analyzer 1.8 % (0-5); Neutrophil # 14.92 X10^3/uL (2.7-7.7); Neutrophil % 90.5 % (47-70); POSITIVE MORPHOLOGY YES; Platelet Count 189 K/mm3 (150-450); RBC Distribution Width CV 20.8 % (11.6-14.6); RBC Distribution Width SD 75.4 fl (35.1-43.9); Red Blood Count 2.67 M/mm3 (4.2-5.4); White Blood Count 16.5 K/mm3 (4.4-11.0)
[2021-11-30 08:19] LABS: Differential Indicated SCAN CRITERIA MET
[2021-11-30 08:48] LABS: Anion Gap 8 (5-15); BUN 59 mg/dL (7-18); BUN/Creat Ratio 9.4 RATIO (10-20); Calcium,Total 8.9 mg/dL (8.5-10.1); Chloride 102 mmol/L (98-107); Creatinine, Serum 6.31 mg/dL (0.55-1.02); EST Glomerular Filtration Rate 7 mL/min (>60); Est Glom Filt Rate - Afr Amer 8 mL/min (>60); Estimated Creatinine Clearance 8.79 ml/min; Glucose 115 mg/dL (74-106); Potassium 5.6 mmol/L (3.5-5.1); Sodium Level 138 mmol/L (136-145)
[2021-11-30 08:54] LABS: Anisocytosis 1+
[2021-11-30 11:45] LABS: Bedside Glucose 191 mg/dL (74-106)
--- NOTE | 2021-11-30 12:06 | DIALYSIS ---
HD x 3.5 hours complete. Tolerated tx well. Ran on 2k bath. UF of 2500ml. Used right chest wall dialysis catheter. Lumens closed with heparin per fill volume. Caps placed. See tx sheet for more details. Report was given to REGGIE Rob.
--- NOTE | 2021-11-30 13:10 | PN.HOSP_ITS ---
Subjective Subjective Patient seen and examined. She has no active complaints today and feels much better. She did have chest pain again yesterday when she worked with physical therapy. She described pain as pressure like and retrosternal. She says she had a heart attack many years ago and was told she was in cardiac arrest. 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 Objective Data Objective Data Vital Signs: Vital Signs Temp Pulse Resp BP Pulse Ox 97.2 F L 58 L 20 H 164/70 H 99 11/30/21 03:10 11/30/21 11:00 11/30/21 06:59 11/30/21 06:11 11/30/21 06:59 Oxygen Flow Rate (L/min) 2 Oxygen Delivery Method Nasal Cannula Weight: 171 lb 11.841 oz Body Mass Index (BMI) 25.2 Intake & Output: Intake and Output for Last 24 Hours 11/28/21 11/29/21 11/30/21 23:59 23:59 23:59 Intake Total 880 / 880 580 / 580 60 / 60 Output Total 4300 / 4300 Balance -3420 / -3420 580 / 580 60 / 60 Lab / Micro Data Result Diagrams: 11/30/21 07:59 11/30/21 07:59 Labs: Laboratory Results - last 24 hr 11/29/21 16:28: POC Glucose 218 H 11/29/21 20:49: POC Glucose 291 H 11/30/21 06:21: POC Glucose 125 H 11/30/21 07:59: WBC 16.5 H, RBC 2.67 L, Hgb 8.1 L, Hct 27.1 L, MCV 101.5 H, MCH 30.3, MCHC 29.9 L, RDW Std Deviation 75.4 H, RDW Coeff of Destiny 20.8 H, Plt Count 189, MPV 9.3, Immature Gran % (Auto) 1.300 H, Neut % (Auto) 90.5 H, Lymph % (Auto) 4.5 L, [place] % (Auto) 3.6, Eos % (Auto) 0.0, Baso % (Auto) 0.1, Absolute Neuts (auto) 14.9 H, Absolute Lymphs (auto) 0.75 L, Nucleated RBC % 1.8, Anisocytosis 1+ 11/30/21 07:59: Sodium 138, Potassium 5.6 H, Chloride 102, Carbon Dioxide 28.0, Anion Gap 8, BUN 59 H, Creatinine 6.31 H, Estim Creat Clear Calc 8.79, Est GFR (MDRD) Af Amer 8 L, Est GFR (MDRD) Non-Af 7 L, BUN/Creatinine Ratio 9.4 L, Glucose 115 H, Calcium 8.9 11/30/21 11:32: POC Glucose 191 H Physical Exam Const alert, oriented x3 and no apparent distress General Appearance: cooperative Exam Limitations: no limitations HEENT normocephalic, head/scalp atraumatic, hearing grossly normal bilaterally and moist oral mucous membranes Head and Scalp: normocephalic Eyes PERRL, EOMs intact bilaterally and conjunctivae normal Neck no lymphadenopathy, supple and no JVD Resp Resp Narrative: diminished breath sounds bibasally, mild wheezing bilaterally. on 2L of oxygen by nasal canula Cardio regular rate, regular rhythm, S1 normal heart sound, S2 normal heart sound and no murmurs GI normal to inspection, nondistended, normoactive bowel sounds, soft to palpation, non-tender and non-distended Extremity normal to inspection, full ROM and no clubbing, cyanosis or edema Peripheral Pulses: Yes pulses 2+ throughout Skin no rashes or lesions noted Neuro oriented x3, CN's II-XII intact bilaterally and moves all extremities Sensorium / Orientation: awake and alert Psych affect normal Assessment & Plan Assessment/Plan (1) COPD exacerbation: (2) Acute and chronic respiratory failure with hypoxia: PLAN: #Acute on chronic hypoxic respiratory failure due to acute COPD exacerbation * contiue IV solumedrol, breathing treatment wtih bronchodilators and IV levaquine * titrate oxygen to maintain sats>90% * #Chest pain * patient complains of recurrent pressure like, retrosternal chest pain, aggravated by exertion * EKG showed no acute ST changes * for stress test tomorrow * #Chronic anemia due to ESRD * stable. * transfuse if Hb <7 * hb today is 8. baseline is usually between 8-9 * #ESRD * on dialysis MWF * had dialysis this morning * nephrology on board * #Hyperkalemia: * due to ESRD. resolved with dialysis * #paroxysmal afib * rate controlled * on eliquis * #Hypertension:on atenolol #TYpe 2 diabetes mellitus * ISS. Accuchecks ACHS * #History of DVT: on eliquis #Depression and anxiety: on duloxetine #GERD; stable. on PPI DVT prophylaxis: not indicated as she is already on eliquis. Code status: full code. * Disposition: now wants to go to SNF. For discharge hopefully tomorrow after stress test Charges/Coding Visit Charges Inpatient E&M: 42441 Subs Hosp L2
--- NOTE | 2021-11-30 14:03 | NURSING ---
[facility] late d/t dialyis and then immediate stress test.
--- NOTE | 2021-11-30 14:13 | CASEMGMT ---
[facility] started the pre-cert request process. Evy Paredes FURNACE FITTER SECURITY SUPPORT ANALYST
[2021-11-30] MEDS: Midodrine HCl 5 MG Tablet 10 MG PO (14:29)
[2021-11-30] MEDS: Calcium Acetate 667 MG Capsule 2001 MG PO ×2 (14:30→16:45)
[2021-11-30] MEDS: Atenolol 50 MG Tablet PO (14:31)
[2021-11-30] MEDS: Pantoprazole Sodium 20 MG Tablet PO (14:31)
[2021-11-30] MEDS: amLODIPine 10 MG Tablet PO (14:32)
[2021-11-30] MEDS: DULoxetine Hcl 20 MG Capsule 40 MG PO (14:32)
[2021-11-30] MEDS: APIXABAN 2.5 MG TABLET PO ×2 (14:32→22:01)
[2021-11-30] MEDS: Heparin 10,000 UNITS/10 ML Vial 3200 UNITS IV (14:33)
--- NOTE | 2021-11-30 15:19 | PN.RENAL_ITS ---
Subjective Subjective Following for ESRD. The patient was dialyzed today. She denies cramping during or post dialysis. The patient still has shortness of breath. She also had chest pain which occurred prior to dialysis. There is no nausea or vomiting. Objective Data Objective Data Vital Signs: Vital Signs Temp Pulse Resp BP Pulse Ox 97.8 F 65 18 177/67 H 95 11/30/21 14:00 11/30/21 14:31 11/30/21 14:00 11/30/21 14:31 11/30/21 14:00 Oxygen Flow Rate (L/min) 2 Oxygen Delivery Method Nasal Cannula Weight: 77.9 kg Body Mass Index (BMI) 25.2 Intake & Output: Intake and Output for Last 24 Hours 11/28/21 11/29/21 11/30/21 23:59 23:59 23:59 Intake Total 880 / 880 580 / 580 60 / 60 Output Total 4300 / 4300 Balance -3420 / -3420 580 / 580 60 / 60 Lab / Micro Data Result Diagrams: 11/30/21 07:59 11/30/21 07:59 Labs: Laboratory Results - last 24 hr 11/29/21 16:28: POC Glucose 218 H 11/29/21 20:49: POC Glucose 291 H 11/30/21 06:21: POC Glucose 125 H 11/30/21 07:59: WBC 16.5 H, RBC 2.67 L, Hgb 8.1 L, Hct 27.1 L, MCV 101.5 H, MCH 30.3, MCHC 29.9 L, RDW Std Deviation 75.4 H, RDW Coeff of Destiny 20.8 H, Plt Count 189, MPV 9.3, Immature Gran % (Auto) 1.300 H, Neut % (Auto) 90.5 H, Lymph % (Auto) 4.5 L, [place] % (Auto) 3.6, Eos % (Auto) 0.0, Baso % (Auto) 0.1, Absolute Neuts (auto) 14.9 H, Absolute Lymphs (auto) 0.75 L, Nucleated RBC % 1.8, Anisocytosis 1+ 11/30/21 07:59: Sodium 138, Potassium 5.6 H, Chloride 102, Carbon Dioxide 28.0, Anion Gap 8, BUN 59 H, Creatinine 6.31 H, Estim Creat Clear Calc 8.79, Est GFR (MDRD) Af Amer 8 L, Est GFR (MDRD) Non-Af 7 L, BUN/Creatinine Ratio 9.4 L, Glucose 115 H, Calcium 8.9 11/30/21 11:32: POC Glucose 191 H Physical Exam Narrative General: Alert and oriented x3, NAD. Heart: Normal S1, S2. No rubs or murmurs. Lungs: Expiratory wheezing diffusely. Abdomen: Soft, nontender, no guarding or rebound. Extremity: No clubbing, cyanosis or edema. Assessment & Plan Assessment/Plan (1) ESRD (end stage renal disease): PLAN: - Continue dialysis on MWF schedule. -I supervised the dialysis treatment today: 3.5-hour treatment on F1 60 di alyzer. Blood flow 350 mL/min. -Next dialysis is planned for 12/02/2021. (2) HTN (hypertension): QUALIFIERS: Hypertension type: essential hypertension Qualified Code(s): I10 - Essential (primary) hypertension PLAN: - BP is higher than usual today although she did receive midodrine with dialysis. -Continue current antihypertensives and target weight on dialysis. -If BP elevation persist, we can consider adding NATALIA inhibitor or ARB. (3) COPD exacerbation: PLAN: - Clinically improved although not yet back to baseline. -Treatment as per hospital medicine service. (4) Chest pain: PLAN: - Not related to dialysis. -The patient is scheduled for stress test as per hospitalist tomorrow.
--- NOTE | 2021-11-30 16:23 | CASEMGMT ---
Call received from Klaus Orlando CM with [facility]. Update provided on current plan for [facility] [place]. Pt with longitudinal CM with [facility]: Chanel Bergeron [phone]. Yovanny Shankar RN CM
[2021-11-30] MEDS: Insulin Lispro 100 UNIT/ML INSULN.PEN SC ×2 (16:44→22:01)
[2021-11-30] MEDS: oxyCODONE 5 MG Tablet 10 MG PO (16:45)
[2021-11-30] MEDS: Gabapentin 600 MG Tablet PO (16:45)
[2021-11-30] MEDS: Folic Acid/Vitamin B Comp W-C 1 Capsule 1 CAP PO (16:46)
[2021-11-30 17:10] LABS: Bedside Glucose 203 mg/dL (74-106)
[2021-11-30] MEDS: Lactulose 20 GM/30 ML UDC PO (21:58)
[2021-11-30] MEDS: Mirtazapine 15 MG Tablet 45 MG PO (22:03)
[2021-11-30] MEDS: Montelukast 10 MG Tablet PO (22:04)
[2021-12-01] VITALS (17 sets, daily range): BP systolic 160–179; BP diastolic 63–79; PULSE 59–67; RESP 16–18; TEMP 36.2–36.4; O2SAT 97–100
[2021-12-01 00:20] LABS: Bedside Glucose 335 mg/dL (74-106)
--- NOTE | 2021-12-01 01:42 | SUR.HOLD ---
Pt will call if respiratory status changes, Pt does not want bipap on at this time
[2021-12-01] MEDS: 0.9% Saline Lock 10 ML Syringe IV ×2 (05:16→13:41)
[2021-12-01] MEDS: hydrALAZINE 50 MG Tablet 100 MG PO ×3 (05:21→21:38)
[2021-12-01] MEDS: Insulin Lispro 100 UNIT/ML INSULN.PEN SC ×4 (06:30→21:52)
[2021-12-01] MEDS: Dicyclomine 10 MG Capsule 20 MG PO ×3 (06:31→16:24)
[2021-12-01 06:55] LABS: Absolute Lymphocyte Count 0.81 X10^3/uL (0.83-4.51); Absolute Neutrophil Count 13.4 X10^3/uL (2.0-7.7); Basophil# 0.02 X10^3/uL; Basophil% 0.1 % (0-1); Eosinophil# 0.01 X10^3/uL; Eosinophils% 0.1 % (0-5); Hematocrit 28.8 % (37-47); Hemoglobin 8.7 g/dL (12.0-15.0); Lymphocyte # 0.81 X10^3/ul (0.83-4.51); Lymphocyte % 5.4 % (19-41); Mean Corp Hgb Conc 30.2 g/dL (32-36); Mean Corpuscular Hgb 30.9 pg (27.0-32.0); Mean Corpuscular Volume 102.1 fL (81-99); Mean Platelet Vol. 9.6 fl (6.2-12.0); Monocyte# 0.79 X10^3/uL; Monocyte% 5.2 % (0-10); NRBC Flagged by Analyzer 3.7 % (0-5); Neutrophil # 13.35 X10^3/uL (2.7-7.7); Neutrophil % 88.1 % (47-70); POSITIVE MORPHOLOGY YES; Platelet Count 195 K/mm3 (150-450); RBC Distribution Width SD 76.4 fl (35.1-43.9); Red Blood Count 2.82 M/mm3 (4.2-5.4); White Blood Count 15.1 K/mm3 (4.4-11.0)
[2021-12-01 06:56] LABS: Differential Indicated SCAN CRITERIA MET
[2021-12-01 07:14] LABS: Anion Gap 7 (5-15); BUN 48 mg/dL (7-18); BUN/Creat Ratio 10.6 RATIO (10-20); Calcium,Total 8.7 mg/dL (8.5-10.1); Chloride 102 mmol/L (98-107); Creatinine, Serum 4.54 mg/dL (0.55-1.02); EST Glomerular Filtration Rate 10 mL/min (>60); Est Glom Filt Rate - Afr Amer 12 mL/min (>60); Estimated Creatinine Clearance 12.22 ml/min; Glucose 200 mg/dL (74-106); Potassium 4.7 mmol/L (3.5-5.1); Sodium Level 139 mmol/L (136-145)
[2021-12-01] MEDS: Ipratropium/Albuterol Sulfate 3 ML AMPUL.NEB INHALATION ×3 (07:24→18:49)
[2021-12-01 07:38] LABS: Anisocytosis 1+
--- NOTE | 2021-12-01 09:53 | CASEMGMT ---
SW spoke with therapy and they feel patient needs to go to a SNF still. SW spoke with patient and she agreed to go to [facility]. Patient asked SW to call her daughter and have her call patient. [facility] has already started the pre-cert. SW attempted to call patient's daughter, but her voice mailbox was full. Evy GONZALEZ
[2021-12-01] MEDS: levoFLOXacin IV 500 MG/100 ML BAG 100 MG IV (11:08)
[2021-12-01 11:11] LABS: Bedside Glucose 179 mg/dL (74-106)
[2021-12-01] MEDS: oxyCODONE 5 MG Tablet 10 MG PO ×2 (11:11→19:37)
[2021-12-01] MEDS: Calcium Acetate 667 MG Capsule 2001 MG PO ×3 (11:12→16:24)
[2021-12-01] MEDS: Pantoprazole Sodium 20 MG Tablet PO (11:12)
[2021-12-01] MEDS: amLODIPine 10 MG Tablet PO (11:12)
[2021-12-01] MEDS: DULoxetine Hcl 20 MG Capsule 40 MG PO (11:12)
[2021-12-01] MEDS: APIXABAN 2.5 MG TABLET PO ×2 (11:12→21:42)
[2021-12-01] MEDS: Atenolol 50 MG Tablet PO (11:12)
[2021-12-01 11:31] LABS: Bedside Glucose 176 mg/dL (74-106)
--- NOTE | 2021-12-01 11:46 | CASEMGMT ---
MARIA GUADALUPE called patient's daughter Salima and let her know patient will be going to [facility]. MARIA GUADALUPE let Salima know patient would like her to call her so patient can tell her what she needs. MARIA GUADALUPE told Salima patient will likely go tomorrow. Plan: [facility] pending pre-cert. Evy GONZALEZ
--- NOTE | 2021-12-01 12:03 | STRESSREP_ITS ---
Stress Test Report Pharmacologic mild cardial perfusion stress test. 71-year-old lady with a history of renal insufficiency and chest pain. Stress protocol: Resting EKG demonstrates normal sinus rhythm with a rate of 61 bpm normal intervals are noted resting blood pressure is 130/74 mmHg. 0.4 mg of regadenoson was infused per usual protocol followed by rapid intravenous and flush injection continuous EKG monitoring was performed. The maximum heart rate attained was 72 bpm which was 47% of max impact at heart rate the maximum workload was 1 metabolic equivalent. At rest there were no ST or T wave changes noted to suggest abnormal flow reserve and at peak infusion nonspecific ST changes were noted with did not meet the criteria for ischemia. No clinical angina was noted. Myocardial perfusion protocol. 12.0 mCi of technetium 99m sestamibi was injected at rest. 0.4 mg of regadenoson was infused per usual protocol. At peak infusion 34.8 mCi of t echnetium 99m sestamibi was injected stress images were obtained stress and rest images were reconstructed and compared in the short axis vertical long and horizontal long axis. Gated images were also obtained per Perfusion SPECT analysis: Review of the stress images demonstrate mildly reduced perfusion noted in the mid anterior wall on the stress and resting images. The rest of the burton appea r to be normally perfused. The resting images also demonstrated mildly reduced perfusion in the mid anterior wall. No obvious areas of reversibility are noted to suggest ischemia no previous infarct is noted. Gated SPECT analysis: The gated ejection fraction is 60%. Conclusion: Pharmacologic myocardial perfusion stress test with no obvious ischemia noted. Preserved ejection fraction.
--- NOTE | 2021-12-01 14:34 | PN.RENAL_ITS ---
Subjective Subjective Resting in bed, watching TV. Denies any complaints. Objective Data Objective Data Vital Signs: Vital Signs Temp Pulse Resp BP Pulse Ox 97.5 F L 62 18 170/66 H 100 12/01/21 13:40 12/01/21 13:40 12/01/21 13:40 12/01/21 13:40 12/01/21 13:40 Oxygen Flow Rate (L/min) 2 Oxygen Delivery Method Nasal Cannula Weight: 74.1 kg Body Mass Index (BMI) 25.2 Intake & Output: Intake and Output for Last 24 Hours 11/29/21 11/30/21 12/01/21 23:59 23:59 23:59 Intake Total 580 / 580 300 / 300 460 / 460 Balance 580 / 580 300 / 300 460 / 460 Lab / Micro Data Result Diagrams: 12/01/21 05:30 12/01/21 05:30 Labs: Laboratory Results - last 24 hr 11/30/21 16:42: POC Glucose 203 H 11/30/21 21:52: POC Glucose 335 H 12/01/21 05:30: WBC 15.1 H, RBC 2.82 L, Hgb 8.7 L, Hct 28.8 L, MCV 102.1 H, MCH 30.9, MCHC 30.2 L, RDW Std Deviation 76.4 H, RDW Coeff of Destiny 21.0 H, Plt Count 195, MPV 9.6, Immature Gran % (Auto) 1.100 H, Neut % (Auto) 88.1 H, Lymph % (Auto) 5.4 L, [place] % (Auto) 5.2, Eos % (Auto) 0.1, Baso % (Auto) 0.1, Absolute Neuts (auto) 13.4 H, Absolute Lymphs (auto) 0.81 L, Nucleated RBC % 3.7, Anisocytosis 1+ 12/01/21 05:30: Sodium 139, Potassium 4.7, Chloride 102, Carbon Dioxide 30.0, Anion Gap 7, BUN 48 H, Creatinine 4.54 H, Estim Creat Clear Calc 12.22, Est GFR (MDRD) Af Amer 12 L, Est GFR (MDRD) Non-Af 10 L, BUN/Creatinine Ratio 10.6, Glucose 200 H, Calcium 8.7 12/01/21 06:28: POC Glucose 179 H 12/01/21 11:21: POC Glucose 176 H Physical Exam Narrative General: Alert and oriented x3, NAD. Heart: Normal S1, S2. No rubs or murmurs. Lungs: Faint expiratory wheezing. No rales or rhonchi Abdomen: Soft, nontender Extremity: No edema. Tunneled HD catheter dressing clean, dry and intact Assessment & Plan Assessment/Plan (1) ESRD (end stage renal disease): PLAN: - Continue dialysis on MWF schedule. 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 Blood flow 350 mL/min. UF as pt/bp tolerates -Outpatient EDW 71.5kg - anemia of chronic disease; received Micera last week at kidney center. Hemoglobin 8.7. We will follow hemoglobin trends. (2) HTN (hypertension): QUALIFIERS: Hypertension type: essential hypertension Qualified Code(s): I10 - Essential (primary) hypertension PLAN: -Continue current antihypertensives and target weight on dialysis -On amlodipine, atenolol, hydralazine -Ordered midodrine on dialysis days only for history of intradialytic hypotension -If BP elevation persists, we can consider adding NATALIA inhibitor or ARB. (3) COPD exacerbation: PLAN: - Clinically improved although not yet back to baseline. -Treatment as per hospital medicine service. IV steroids (4) Chest pain: PLAN: - Resolved; Not related to dialysis. -The patient had stress test today with conclusion: Pharmacologic myocardial perfusion stress test with no obvious ischemia noted. Preserved ejection fraction, 60%. - discharge planning in progress to [facility] at time of discharge for rehab
--- NOTE | 2021-12-01 14:45 | PN.HOSP_ITS ---
Subjective Subjective Patient seen and examined. She had no complaints and felt well. She had an uneventful night. Review of systems is otherwise negative. She is due to have a stress test today due to her complaints about chest pain. Objective Data Objective Data Vital Signs: Vital Signs Temp Pulse Resp BP Pulse Ox 97.5 F L 62 18 170/66 H 100 12/01/21 13:40 12/01/21 13:40 12/01/21 13:40 12/01/21 13:40 12/01/21 13:40 Oxygen Flow Rate (L/min) 2 Oxygen Delivery Method Nasal Cannula Weight: 163 lb 5.8 oz Body Mass Index (BMI) 25.2 Intake & Output: Intake and Output for Last 24 Hours 11/29/21 11/30/21 12/01/21 23:59 23:59 23:59 Intake Total 580 / 580 300 / 300 460 / 460 Balance 580 / 580 300 / 300 460 / 460 Lab / Micro Data Result Diagrams: 12/01/21 05:30 12/01/21 05:30 Labs: Laboratory Results - last 24 hr 11/30/21 16:42: POC Glucose 203 H 11/30/21 21:52: POC Glucose 335 H 12/01/21 05:30: WBC 15.1 H, RBC 2.82 L, Hgb 8.7 L, Hct 28.8 L, MCV 102.1 H, MCH 30.9, MCHC 30.2 L, RDW Std Deviation 76.4 H, RDW Coeff of Destiny 21.0 H, Plt Count 195, MPV 9.6, Immature Gran % (Auto) 1.100 H, Neut % (Auto) 88.1 H, Lymph % (Auto) 5.4 L, [place] % (Auto) 5.2, Eos % (Auto) 0.1, Baso % (Auto) 0.1, Absolute Neuts (auto) 13.4 H, Absolute Lymphs (auto) 0.81 L, Nucleated RBC % 3.7, Anisocytosis 1+ 12/01/21 05:30: Sodium 139, Potassium 4.7, Chloride 102, Carbon Dioxide 30.0, Anion Gap 7, BUN 48 H, Creatinine 4.54 H, Estim Creat Clear Calc 12.22, Est GFR (MDRD) Af Amer 12 L, Est GFR (MDRD) Non-Af 10 L, BUN/Creatinine Ratio 10.6, Glucose 200 H, Calcium 8.7 12/01/21 06:28: POC Glucose 179 H 12/01/21 11:21: POC Glucose 176 H Physical Exam Const alert, oriented x3 and no apparent distress General Appearance: cooperative Exam Limitations: no limitations HEENT normocephalic, head/scalp atraumatic, hearing grossly normal bilaterally and moist oral mucous membranes Head and Scalp: normocephalic Eyes PERRL, EOMs intact bilaterally and conjunctivae normal Neck no lymphadenopathy, supple and no JVD Resp Resp Narrative: diminished breath sounds bibasally, mild wheezing bilaterally. on 2L of oxygen by nasal canula Cardio regular rate, regular rhythm, S1 normal heart sound, S2 normal heart sound and no murmurs GI normal to inspection, nondistended, normoactive bowel sounds, soft to palpation, non-tender and non-distended Extremity normal to inspection, full ROM and no clubbing, cyanosis or edema Peripheral Pulses: Yes pulses 2+ throughout Skin no rashes or lesions noted Neuro oriented x3, CN's II-XII intact bilaterally and moves all extremities Sensorium / Orientation: awake and alert Psych affect normal Assessment & Plan Assessment/Plan (1) COPD exacerbation: (2) Acute and chronic respiratory failure with hypoxia: PLAN: #Acute on chronic hypoxic respiratory failure due to acute COPD exacerbation * feeling much better. Will switch to PO prednisone. * switch levaquin to PO * breathing treatment with bronchodilators. * titrate oxygen to maintain sats>90% * #Chest pain * didnt have any chest pain overnight. * stress test done today was negative for any evidence of ischemia * * * #Chronic anemia due to ESRD * stable. hb today is 8.7 * transfuse if Hb <7 * hb today is 8. baseline is usually between 8-9 * #ESRD * on dialysis MWF * nephrology on board * #Hyperkalemia: * resolved. * #paroxysmal afib * rate controlled on atenolol * on eliquis * #Hypertension:on atenolol #TYpe 2 diabetes mellitus * ISS. Accuchecks ACHS * #History of DVT: on eliquis #Depression and anxiety: on duloxetine #GERD; stable. on PPI DVT prophylaxis: not indicated as she is already on eliquis. Code status: full code. * Disposition: for dc to SNF. Precert pending Charges/Coding Visit Charges Inpatient E&M: 94526 Subs Hosp L2
[2021-12-01] MEDS: Gabapentin 300 MG Capsule PO (16:24)
[2021-12-01 16:31] LABS: Bedside Glucose 166 mg/dL (74-106)
[2021-12-01] MEDS: Montelukast 10 MG Tablet PO (21:43)
[2021-12-01] MEDS: Mirtazapine 15 MG Tablet 45 MG PO (21:43)
[2021-12-02] VITALS (12 sets, daily range): BP systolic 151–184; BP diastolic 63–77; PULSE 52–71; RESP 16–20; TEMP 36.4–37; O2SAT 96–100
[2021-12-02 00:35] LABS: Bedside Glucose 217 mg/dL (74-106)
[2021-12-02 05:23] LABS: Absolute Lymphocyte Count 0.57 X10^3/uL (0.83-4.51); Basophil# 0.01 X10^3/uL; Basophil% 0.1 % (0-1); Hematocrit 28.5 % (37-47); Hemoglobin 8.7 g/dL (12.0-15.0); Lymphocyte # 0.57 X10^3/ul (0.83-4.51); Lymphocyte % 3.7 % (19-41); Mean Corp Hgb Conc 30.5 g/dL (32-36); Mean Corpuscular Hgb 31.1 pg (27.0-32.0); Mean Corpuscular Volume 101.8 fL (81-99); Mean Platelet Vol. 9.8 fl (6.2-12.0); Monocyte# 0.46 X10^3/uL; NRBC Flagged by Analyzer 3.6 % (0-5); Neutrophil # 13.99 X10^3/uL (2.7-7.7); POSITIVE DIFFERENTIAL YES; POSITIVE MORPHOLOGY YES; Platelet Count 202 K/mm3 (150-450); RBC Distribution Width SD 75.4 fl (35.1-43.9); White Blood Count 15.2 K/mm3 (4.4-11.0)
[2021-12-02 05:34] LABS: Differential Indicated SCAN CRITERIA MET
[2021-12-02 05:51] LABS: Anion Gap 8 (5-15); BUN 76 mg/dL (7-18); BUN/Creat Ratio 12.5 RATIO (10-20); Calcium,Total 8.8 mg/dL (8.5-10.1); Chloride 99 mmol/L (98-107); Creatinine, Serum 6.08 mg/dL (0.55-1.02); EST Glomerular Filtration Rate 7 mL/min (>60); Est Glom Filt Rate - Afr Amer 9 mL/min (>60); Estimated Creatinine Clearance 9.13 ml/min; Glucose 194 mg/dL (74-106); Potassium 5.6 mmol/L (3.5-5.1); Sodium Level 134 mmol/L (136-145)
[2021-12-02 07:07] LABS: Anisocytosis 2+; Differential Comment SCANNED; Polychromasia 1+
[2021-12-02 07:09] LABS: Microcytosis 1+
[2021-12-02] MEDS: Ipratropium/Albuterol Sulfate 3 ML AMPUL.NEB INHALATION ×2 (07:12→13:12)
[2021-12-02 07:56] LABS: Bedside Glucose 139 mg/dL (74-106)
[2021-12-02] MEDS: Dicyclomine 10 MG Capsule 20 MG PO ×2 (08:17→10:54)
[2021-12-02] MEDS: Calcium Acetate 667 MG Capsule 2001 MG PO ×2 (08:18→10:54)
[2021-12-02] MEDS: DULoxetine Hcl 20 MG Capsule 40 MG PO (08:19)
[2021-12-02] MEDS: Pantoprazole Sodium 20 MG Tablet PO (08:19)
--- NOTE | 2021-12-02 09:54 | EKG12_ITS ---
Test Reason : Blood Pressure : / mmHG Vent. Rate : 069 BPM Atrial Rate : 069 BPM P-R Int : 146 ms QRS Dur : 086 ms QT Int : 422 ms P-R-T Axes : 044 019 035 degrees QTc Int : 452 ms Sinus rhythm with Premature atrial complexes Otherwise normal ECG When compared with ECG of 28-NOV-2021 20:34, Sinus rhythm has replaced Atrial fibrillation Confirmed by TERE LEMON, JAN ([id number]), non linear editor BIRDIE TORRES ([id number]) on 12/05/2021 1:07:05 PM Referred By: BRENNAN Confirmed By:JAN CARRANZA MD
--- NOTE | 2021-12-02 10:34 | DIALYSIS ---
HD discontinued after 48 minutes on treatment due to patient complaint of chest pain per Ramandeep Pugh. UF of 80ml. Used right chest wall dialysis catheter. Lumens closed with heparin per fill volume. Caps placed. See tx sheet for more details. Report was given to REGGIE Rob.
--- NOTE | 2021-12-02 10:43 | PCM.PN.REN ---
Subjective Subjective Seen on dialysis. Patient was having chest pain during dialysis. Systolic blood pressure around 170s. No overnight events. Objective Data Objective Data Vital Signs: Vital Signs Temp Pulse Resp BP Pulse Ox 98.4 F 57 L 18 184/77 H 100 12/02/21 08:15 12/02/21 08:15 12/02/21 08:15 12/02/21 08:15 12/02/21 08:15 Oxygen Flow Rate (L/min) 2 Oxygen Delivery Method Nasal Cannula Weight: 77.564 kg Body Mass Index (BMI) 25.2 Intake & Output: Intake and Output for Last 24 Hours 11/30/21 12/01/21 12/02/21 23:59 23:59 23:59 Intake Total 300 / 300 820 / 820 Output Total 0 / 0 Balance 300 / 300 820 / 820 0 / 0 Lab / Micro Data Result Diagrams: 12/02/21 03:48 12/02/21 03:48 Labs: Laboratory Results - last 24 hr 12/01/21 06:28: POC Glucose 179 H 12/01/21 11:21: POC Glucose 176 H 12/01/21 16:19: POC Glucose 166 H 12/01/21 21:50: POC Glucose 217 H 12/02/21 03:48: WBC 15.2 H, RBC 2.80 L, Hgb 8.7 L, Hct 28.5 L, MCV 101.8 H, MCH 31.1, MCHC 30.5 L, RDW Std Deviation 75.4 H, RDW Coeff of Destiny 21.0 H, Plt Count 202, MPV 9.8, Immature Gran % (Auto) 1.200 H, Neut % (Auto) 92.0 H, Lymph % (Auto) 3.7 L, [place] % (Auto) 3.0, Eos % (Auto) 0.0, Baso % (Auto) 0.1, Absolute Neuts (auto) 14.0 H, Absolute Lymphs (auto) 0.57 L, Nucleated RBC % 3.6, Differential Comment SCANNED, Polychromasia 1+, Anisocytosis 2+, Microcytosis 1+ 12/02/21 03:48: Sodium 134 L, Potassium 5.6 H, Chloride 99, Carbon Dioxide 27.0, Anion Gap 8, BUN 76 H, Creatinine 6.08 H, Estim Creat Clear Calc 9.13, Est GFR (MDRD) Af Amer 9 L, Est GFR (MDRD) Non-Af 7 L, BUN/Creatinine Ratio 12.5, Glucose 194 H, Calcium 8.8 12/02/21 07:50: POC Glucose 139 H Physical Exam Narrative General: Alert and oriented x3, NAD. Heart: Normal S1, S2. No rubs or murmurs. Lungs: Faint expiratory wheezing. No rales or rhonchi Abdomen: Soft, nontender Extremity: No edema. Tunneled HD catheter dressing clean, dry and intact, accessed for dialysis Assessment & Plan Assessment/Plan (1) ESRD (end stage renal disease): PLAN: - Outpatient Dialysis MWF schedule. -Patient was started on dialysis this morning. Approximately 45 minutes into HD treatment patient developed midsternal chest pain. Initially we were attempting around 2.5 L fluid removal but due to chest pain approximately 300 mL fluid was given back to patient therefore no fluid was removed with dialysis today. Because chest pain continued and did not improve with fluid bolus dialysis was aborted. Her dialysis orders for today were: 3.5-hour treatment on F160 dialyzer, blood flow 350 mL/min, UF as pt/bp tolerates on 2k bath. Pre-HD weight ~76kg. -Outpatient EDW was 71.5kg but recently patient's post HD weight had been ~74kg - anemia of chronic disease; received Micera last week at kidney center. Hemoglobin 8.7. We will follow hemoglobin trends. (2) HTN (hypertension): QUALIFIERS: Hypertension type: essential hypertension Qualified Code(s): I10 - Essential (primary) hypertension PLAN: -Continue current antihypertensives and target weight on dialysis -On amlodipine, atenolol, hydralazine -Ordered midodrine on dialysis days only for history of intradialytic hypotension. Blood pressure was elevated during HD today and patient did not get midodrine. Recently blood pressures have been stable during dialysis and patient has not needed midodrine therefore we will stop midodrine altogether. -Bps remain elevated, will start isosorbide 20mg bid (3) COPD exacerbation: PLAN: - Clinically improved -Treatment as per hospital medicine service. IV steroids (4) Chest pain: PLAN: - Earlier this week patient hd CP not related to dialysis. Patient had beside EKG today -The patient had stress test today with conclusion: Pharmacologic myocardial perfusion stress test with no obvious ischemia noted. Preserved ejection fraction, 60%. - discharge planning in progress to [facility] at time of discharge for rehab - if patient discharged today can arrange for dialysis at kidney center tomorrow. If not discharged today will likely plan for HD tomorrow. Possibly little to no UF with next HD treatment
[2021-12-02] MEDS: APIXABAN 2.5 MG TABLET PO (10:52)
[2021-12-02] MEDS: oxyCODONE 5 MG Tablet 10 MG PO (10:53)
[2021-12-02] MEDS: amLODIPine 10 MG Tablet PO (10:53)
[2021-12-02] MEDS: Atenolol 50 MG Tablet PO (10:54)
[2021-12-02] MEDS: Heparin 10,000 UNITS/10 ML Vial 3200 UNITS IV (10:56)
[2021-12-02] MEDS: Insulin Lispro 100 UNIT/ML INSULN.PEN SC (11:00)
--- NOTE | 2021-12-02 11:23 | PN.HOSP_ITS ---
Subjective Subjective Patient seen and examined. She had no complaints this morning. She is awaiting placement. She is for dialysis today. Objective Data Objective Data Vital Signs: Vital Signs Temp Pulse Resp BP Pulse Ox 98.6 F 64 18 172/65 H 99 12/02/21 10:50 12/02/21 10:50 12/02/21 10:50 12/02/21 10:50 12/02/21 10:50 Oxygen Flow Rate (L/min) 2 Oxygen Delivery Method Nasal Cannula Weight: 171 lb Body Mass Index (BMI) 25.2 Intake & Output: Intake and Output for Last 24 Hours 11/30/21 12/01/21 12/02/21 23:59 23:59 23:59 Intake Total 300 / 300 820 / 820 360 / 360 Output Total 0 / 0 Balance 300 / 300 820 / 820 360 / 360 Lab / Micro Data Result Diagrams: 12/02/21 03:48 12/02/21 03:48 Labs: Laboratory Results - last 24 hr 12/01/21 11:21: POC Glucose 176 H 12/01/21 16:19: POC Glucose 166 H 12/01/21 21:50: POC Glucose 217 H 12/02/21 03:48: WBC 15.2 H, RBC 2.80 L, Hgb 8.7 L, Hct 28.5 L, MCV 101.8 H, MCH 31.1, MCHC 30.5 L, RDW Std Deviation 75.4 H, RDW Coeff of Destiny 21.0 H, Plt Count 202, MPV 9.8, Immature Gran % (Auto) 1.200 H, Neut % (Auto) 92.0 H, Lymph % (Auto) 3.7 L, [place] % (Auto) 3.0, Eos % (Auto) 0.0, Baso % (Auto) 0.1, Absolute Neuts (auto) 14.0 H, Absolute Lymphs (auto) 0.57 L, Nucleated RBC % 3.6, Differential Comment SCANNED, Polychromasia 1+, Anisocytosis 2+, Microcytosis 1+ 12/02/21 03:48: Sodium 134 L, Potassium 5.6 H, Chloride 99, Carbon Dioxide 27.0, Anion Gap 8, BUN 76 H, Creatinine 6.08 H, Estim Creat Clear Calc 9.13, Est GFR (MDRD) Af Amer 9 L, Est GFR (MDRD) Non-Af 7 L, BUN/Creatinine Ratio 12.5, Glucose 194 H, Calcium 8.8 12/02/21 07:50: POC Glucose 139 H Physical Exam Const alert, oriented x3 and no apparent distress General Appearance: cooperative Exam Limitations: no limitations HEENT normocephalic, head/scalp atraumatic, hearing grossly normal bilaterally and moist oral mucous membranes Head and Scalp: normocephalic Eyes PERRL, EOMs intact bilaterally and conjunctivae normal Neck no lymphadenopathy, supple and no JVD Resp Resp Narrative: diminished breath sounds bibasally, mild wheezing bilaterally. on 2L of oxygen by nasal canula Cardio regular rate, regular rhythm, S1 normal heart sound, S2 normal heart sound and no murmurs GI normal to inspection, nondistended, normoactive bowel sounds, soft to palpation, non-tender and non-distended Extremity normal to inspection, full ROM and no clubbing, cyanosis or edema Extremity Narrative: tunneled dialysis catheter in place Peripheral Pulses: Yes pulses 2+ throughout Skin no rashes or lesions noted Neuro oriented x3, CN's II-XII intact bilaterally and moves all extremities Sensorium / Orientation: awake and alert Psych affect normal Assessment & Plan Assessment/Plan (1) COPD exacerbation: (2) Acute and chronic respiratory failure with hypoxia: PLAN: #Acute on chronic hypoxic respiratory failure due to acute COPD exacerbation * resolved. Feels much better * dc levaquin; switch to PO prednisone. * switch levaquin to PO * breathing treatment with bronchodilators. * titrate oxygen to maintain sats>90% * #Chest pain * stress test done today was negative for any evidence of ischemia * #Chronic anemia due to ESRD * stable. hb today remains 8.7 * transfuse if Hb <7 * hb today is 8. baseline is usually between 8-9 * #ESRD * on dialysis MWF * nephrology on board * #Hyperkalemia: * potassium is 5.6. Likely due to ESRD. * for dialysis today. * #paroxysmal afib * rate controlled on atenolol * on eliquis * #Hypertension:on atenolol #TYpe 2 diabetes mellitus * ISS. Accuchecks ACHS * #History of DVT: on eliquis #Depression and anxiety: on duloxetine #GERD; stable. on PPI DVT prophylaxis: not indicated as she is already on eliquis. Code status: full code. * Disposition: for dc to SNF. Precert pending Charges/Coding Visit Charges Inpatient E&M: 55119 Subs Hosp L2
--- NOTE | 2021-12-02 11:42 | CASEMGMT ---
Addendum entered by Evy Paredes 12/02/21 11:47: RN, physician, and department secretary notified. Evy GONZALEZ Original Note: Patient's dialysis was cut short today due to chest pain. Patient will need dialysis tomorrow. SW called [facility] and spoke with [place]. They would not be able to set up transport to take patient to dialysis tomorrow. Therefore, patient will not be able to be discharged to the SNF today. SW will work on dialysis and possible transportation for tomorrow. Evy GONZALEZ
[2021-12-02 11:50] LABS: Bedside Glucose 217 mg/dL (74-106)
[2021-12-02] MEDS: Calcium Carbonate 500 MG Tablet PO (11:59)
--- NOTE | 2021-12-02 12:53 | PCM.DC.SUM ---
Providers Date of Admission: 11/27/21 Primary Care Physician: Dr. Shar Greene MD Consultations 11/27/21 18:25 Consult: Nephrology Routine Consulting Provider: Soraida Sears Reason for Consult: ESRD, needs dialysis EMERGENT Consult: No MD Notified: Yes Date Notified: 11/27/21 Time Notified: 18:25 Method of Notification: Text Reason For Visit: ACUTE ON CHRONIC HYPOXIC RESPIRATORY FAILURE Diagnosis Discharge Diagnosis (1) COPD exacerbation: Status: Chronic Code(s): J44.1 - Chronic obstructive pulmonary disease with (acute) exacerbation (2) Acute and chronic respiratory failure with hypoxia: Status: Chronic Code(s): J96.21 - Acute and chronic respiratory failure with hypoxia Medications at Discharge Home Medications hydralazine 100 mg PO TID 03/31/20 amlodipine 10 mg PO DAILY 11/30/20 calcium acetate(phosphat bind) 2,001 mg PO TID 11/30/20 Eliquis 2.5 mg PO BID 01/08/21 mirtazapine 45 mg PO QHS 01/08/21 dicyclomine 20 mg PO TID 02/26/21 RenaPlex-D 1 tab PO MOWEFR 10/05/21 atenolol 50 mg PO DAILY 10/05/21 duloxetine 40 mg PO DAILY 10/05/21 gabapentin 300 mg PO SUTUTHSA 10/05/21 gabapentin 600 mg PO MOWEFR 10/05/21 midodrine 10 mg PO MOWEFR 10/05/21 omeprazole 20 mg PO DAILY 10/05/21 oxycodone 10 mg PO BID 10/05/21 albuterol sulfate 2.5 mg INHALATION Q2H PRN PRN 30 Days #90 ml 10/08/21 dextromethorphan polistirex [Robitussin ER] 10 ml PO Q12H PRN #89 ml 10/08/21 docusate sodium 200 mg PO BID PRN PRN 10/25/21 guaifenesin [Mucinex] 400 mg PO TID PRN PRN 10/25/21 ipratropium-albuterol 1 spray INHALATION BID 10/25/21 lactulose 30 ml PO QHS 10/25/21 montelukast [Singulair] 10 mg PO QHS 10/25/21 oxycodone 10 mg PO BID PRN 10/25/21 prednisone 40 mg PO DAILY #10 tab 11/15/21 prednisone 40 mg PO DAILY #10 tab 12/02/21 Hospital Course Operations None Procedures Dialysis Summary of Care Provided Minutes Spent on Discharge: 45 Hospital Course: ALEC GUTIERREZ, is a 71 F with an extensive PMH as outlined who presents via the ED on 11/27/2021 with a complaint of shortness of breath. She was seen in the ED yesterday for shortness of breath, and was given oxygen and sent home on steroids. She however felt even more short of breath this morning and felt her oxygen had run out. She denied any fever, chills, cough, chest pain, palpitations, dizziness, nausea, vomiting or diarrhea. Review of systems was otherwise negative. Vitals in the ED were BP of 197/88, NV of 65, RR of 25 and she was saturating at 100% on BIPAP. CBC showed wbc of 19.6, and Hb of 8.1 as well as platelets of 142. Chemistry showed creatinine of 5.79 and BNP was 3311.7. Chest xray showed moderate cardiac enlargement with clear and expanded lungs, and no changes in small bilateral pleural effusions with some bibasilar atelectasis. She was admitted to be managed for acute on chronic hypoxic respiratory failure due to COPD exacerbation. SHe was put on IV solumedrol, breathing treatment with bronchodilators, and IV levaquin. Her shortness of breath and wheezing gradually improved and she felt better. Hospital course was complicated by recurrent complaints about chest pain. EKG showed no acute st changes. She had a stress test which showed no evidence of ischemia. Due to her debility, she was discharged to [facility] on 12/02/2021, and she was discharged on a course of prednisone. 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 Patient seen and examined prior to discharge. She had no active complaints. She had dialysis today but session was stopped as she developed some chest pain, which subsequently resolved. REview of systems otherwise negative. Labs and vitals reviewed. Home meds reviewed and reconciled. Physical Exam Const alert, oriented x3 and no apparent distress General Appearance: cooperative and comfortable Exam Limitations: no limitations HEENT normocephalic, head/scalp atraumatic, hearing grossly normal bilaterally and moist oral mucous membranes Eyes PERRL, EOMs intact bilaterally and conjunctivae normal Neck no lymphadenopathy, supple and no JVD Resp Resp Narrative: diminished breath sounds bibasally, mild wheezing bilaterally. on 2L of oxygen by nasal canula Cardio regular rate, regular rhythm, S1 normal heart sound, S2 normal heart sound and no murmurs GI normal to inspection, nondistended, normoactive bowel sounds, soft to palpation, non-tender and non-distended Extremity normal to inspection, full ROM and no clubbing, cyanosis or edema Extremity Narrative: tunneled dialysis catheter in place Skin no rashes or lesions noted Neuro oriented x3, CN's II-XII intact bilaterally and moves all extremities Sensorium / Orientation: awake and alert Psych affect normal Weight / BMI Weight Weight: 171 lb Body Mass Index (BMI) 25.2 ABG / Lab / Microbiology Data Result Diagrams: 12/02/21 03:48 12/02/21 03:48 Laboratory: Laboratory Results - last 24 hr 12/01/21 16:19: POC Glucose 166 H 12/01/21 21:50: POC Glucose 217 H 12/02/21 03:48: WBC 15.2 H, RBC 2.80 L, Hgb 8.7 L, Hct 28.5 L, MCV 101.8 H, MCH 31.1, MCHC 30.5 L, RDW Std Deviation 75.4 H, RDW Coeff of Destiny 21.0 H, Plt Count 202, MPV 9.8, Immature Gran % (Auto) 1.200 H, Neut % (Auto) 92.0 H, Lymph % (Auto) 3.7 L, [place] % (Auto) 3.0, Eos % (Auto) 0.0, Baso % (Auto) 0.1, Absolute Neuts (auto) 14.0 H, Absolute Lymphs (auto) 0.57 L, Nucleated RBC % 3.6, Differential Comment SCANNED, Polychromasia 1+, Anisocytosis 2+, Microcytosis 1+ 12/02/21 03:48: Sodium 134 L, Potassium 5.6 H, Chloride 99, Carbon Dioxide 27.0, Anion Gap 8, BUN 76 H, Creatinine 6.08 H, Estim Creat Clear Calc 9.13, Est GFR (MDRD) Af Amer 9 L, Est GFR (MDRD) Non-Af 7 L, BUN/Creatinine Ratio 12.5, Glucose 194 H, Calcium 8.8 12/02/21 07:50: POC Glucose 139 H 12/02/21 10:59: POC Glucose 217 H D/C Instructions Discharge Diet: Low fat / Low cholesterol Discharge Activity: Return to Normal Activity Weight Bearing Status: Weight bearing as tolerated Call your doctor if you observe: Fever of 101 or Higher, Shortness of breath, Dizziness and Swelling in the ankles Meaningful Use Info Meaningful Use Diagnoses (Choose all that apply): None applicable Discharge Plan Admission Admit Date/Time: 11/27/21 08:32 Primary Reason for Your Visit: acute copd exacerbation Attending Provider: Malu Smith Primary Care Provider: Shar Greene Consulting Providers: Soraida Sears Instructions Patient Instructions: COPD: Chronic Coughing, COPD: Coping with Fatigue, COPD Meds Discharge Orders/Prescriptions Prescriptions: New prednisone 20 mg tablet 40 mg PO DAILY Qty: 10 RF: 0 Continued hydralazine 100 MG tablet 100 mg PO TID RF: 0 amlodipine 10 mg Tablet 10 mg PO DAILY RF: 0 calcium acetate(phosphat bind) 667 mg Capsule 2,001 mg PO TID RF: 0 mirtazapine 45 mg Tablet 45 mg PO QHS RF: 0 Eliquis 2.5 mg Tablet 2.5 mg PO BID RF: 0 dicyclomine 20 mg tablet 20 mg PO TID RF: 0 gabapentin 600 mg tablet 600 mg PO MOWEFR RF: 0 gabapentin 300 mg capsule 300 mg PO SUTUTHSA RF: 0 omeprazole 20 mg capsule,delayed release(DR/EC) 20 mg PO DAILY RF: 0 midodrine 10 mg tablet 10 mg PO MOWEFR RF: 0 duloxetine 20 mg capsule,delayed release(DR/EC) 40 mg PO DAILY RF: 0 oxycodone 10 mg tablet 10 mg PO BID RF: 0 RenaPlex-D 800 mcg-12.5 mg -2,000 unit tablet 1 tab PO MOWEFR RF: 0 atenolol 50 mg tablet 50 mg PO DAILY RF: 0 dextromethorphan polistirex [Robitussin ER] 30 mg/5 mL suspension,extended rel 12 hr 10 ml PO Q12H PRN (Reason: cough) Qty: 89 RF: 0 albuterol sulfate 2.5 mg /3 mL (0.083 %) Solution For Nebulization 2.5 mg inhalation Q2H PRN PRN (Reason: SOB/Wheezing) 30 Days Qty: 90 RF: 0 montelukast [Singulair] 10 mg Tablet 10 mg PO QHS RF: 0 ipratropium-albuterol 18-103 mcg/actuation Aerosol 1 spray INHALATION BID RF: 0 docusate sodium 100 mg Tablet 200 mg PO BID PRN PRN (Reason: constipation) RF: 0 lactulose 10 gram/15 mL Solution 30 ml PO QHS RF: 0 oxycodone 10 mg Tablet 10 mg PO BID PRN (Reason: Pain) RF: 0 guaifenesin [Mucinex] 600 mg Tablet Extended Release 12hr 400 mg PO TID PRN PRN (Reason: Congestion) RF: 0 prednisone 20 mg tablet 40 mg PO DAILY Qty: 10 RF: 0 Discontinued prednisone 20 MG tablet 60 mg PO DAILY Qty: 12 RF: 0 levofloxacin 750 mg tablet 750 mg PO Q48H Qty: 3 RF: 0 prednisone 50 mg tablet 50 mg PO DAILY Qty: 5 RF: 0 Referrals / Follow Up: Shar Greene MD [Primary Care Provider] - Charges/Coding Visit Charges Inpatient E&M: 40863 Disch Hosp
--- NOTE | 2021-12-02 13:12 | PCM.TXEXTCAR ---
Diet 11/30/21 13:56 Diet: Renal - General Type of Dietary Supplement:: Glucerna Shake Is pt able to select menu?: Yes Diet Comments: 4oz chocolate w/ meals Routine Orders/Code Status Enema Type: Fleetz Enema Frequency: Daily PRN Suppository Type: Dulcolax 10mg Suppository Frequency: Daily PRN O2 Frequency: Continuous Keep PO Greater than or Equal to (%): 90 Therapies Weight Bearing: Weight bearing as tolerated Physical Therapy: Eval and Treat Occupational Therapy: Eval and Treat Problem/Diagnosis (1) COPD exacerbation: Status: Chronic (2) Acute and chronic respiratory failure with hypoxia: Status: Chronic Allergies/Procedures Done in Hospital Allergies No Known Allergies Allergy (Verified 11/13/21 00:17) Procedures: Dialysis and Nuclear Stress Test Type of Care/Length of Stay Estimated LOS: Convalescent Care Less Than 30 days Type of Care Needed: Skilled Rehab Potential: Fair Prognosis: Fair Additional Orders/Day of Discharge Day of Discharge: 12/02/21 Dietary and Speech Recommendations Dietitian Recommendations/Changes: will adjust diet to renal general and add 120mL glucerna ONS w/ meals for additional protein if consumed. Discharge Plan Admission Admit Date/Time: 11/27/21 08:32 Primary Reason for Your Visit: acute copd exacerbation Attending Provider: Malu Smith Primary Care Provider: Shar Greene Consulting Providers: Soraida Sears Instructions Patient Instructions: COPD: Chronic Coughing, COPD: Coping with Fatigue, COPD Meds Discharge Orders/Prescriptions Prescriptions: New prednisone 20 mg tablet 40 mg PO DAILY Qty: 10 RF: 0 Continued hydralazine 100 MG tablet 100 mg PO TID RF: 0 amlodipine 10 mg Tablet 10 mg PO DAILY RF: 0 calcium acetate(phosphat bind) 667 mg Capsule 2,001 mg PO TID RF: 0 mirtazapine 45 mg Tablet 45 mg PO QHS RF: 0 Eliquis 2.5 mg Tablet 2.5 mg PO BID RF: 0 dicyclomine 20 mg tablet 20 mg PO TID RF: 0 gabapentin 600 mg tablet 600 mg PO MOWEFR RF: 0 gabapentin 300 mg capsule 300 mg PO SUTUTHSA RF: 0 omeprazole 20 mg capsule,delayed release(DR/EC) 20 mg PO DAILY RF: 0 midodrine 10 mg tablet 10 mg PO MOWEFR RF: 0 duloxetine 20 mg capsule,delayed release(DR/EC) 40 mg PO DAILY RF: 0 oxycodone 10 mg tablet 10 mg PO BID RF: 0 RenaPlex-D 800 mcg-12.5 mg -2,000 unit tablet 1 tab PO MOWEFR RF: 0 atenolol 50 mg tablet 50 mg PO DAILY RF: 0 dextromethorphan polistirex [Robitussin ER] 30 mg/5 mL suspension,extended rel 12 hr 10 ml PO Q12H PRN (Reason: cough) Qty: 89 RF: 0 albuterol sulfate 2.5 mg /3 mL (0.083 %) Solution For Nebulization 2.5 mg inhalation Q2H PRN PRN (Reason: SOB/Wheezing) 30 Days Qty: 90 RF: 0 montelukast [Singulair] 10 mg Tablet 10 mg PO QHS RF: 0 ipratropium-albuterol 18-103 mcg/actuation Aerosol 1 spray INHALATION BID RF: 0 docusate sodium 100 mg Tablet 200 mg PO BID PRN PRN (Reason: constipation) RF: 0 lactulose 10 gram/15 mL Solution 30 ml PO QHS RF: 0 oxycodone 10 mg Tablet 10 mg PO BID PRN (Reason: Pain) RF: 0 guaifenesin [Mucinex] 600 mg Tablet Extended Release 12hr 400 mg PO TID PRN PRN (Reason: Congestion) RF: 0 prednisone 20 mg tablet 40 mg PO DAILY Qty: 10 RF: 0 Discontinued prednisone 20 MG tablet 60 mg PO DAILY Qty: 12 RF: 0 levofloxacin 750 mg tablet 750 mg PO Q48H Qty: 3 RF: 0 prednisone 50 mg tablet 50 mg PO DAILY Qty: 5 RF: 0 Referrals / Follow Up: Shar Greene MD [Primary Care Provider] -
[2021-12-02] MEDS: hydrALAZINE 50 MG Tablet 100 MG PO (13:21)
--- NOTE | 2021-12-02 13:26 | CASEMGMT ---
MARIA GUADALUPE called [facility] and arranged transportation for patient to and from dialysis tomorrow. MARIA GUADALUPE spoke with Juan Pablo at [facility]. Transportation will hand picker patient at [place] between 10a and 1030a. She will get picked up at [facility] at 3p. [place] will need to provide a manual wheelchair for patient and [place] [id number]. MARIA GUADALUPE called [place] at [place] and let her know above information. MARIA GUADALUPE asked if they will be able to provide a manual wheelchair and O2 if needed. [place] said that is fine they can do this. MARIA GUADALUPE e-mailed [facility]'s phone number, confirmation number, hand picker times, and that they will need to provide a wheelchair and O2 if needed. MARIA GUADALUPE notified physician and RN that patient can be discharged today. Await orders and COVID test. 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
--- NOTE | 2021-12-02 14:43 | NURSING ---
Report called to Nurse Sushma Perry for pt to be d/c.
--- NOTE | 2021-12-02 14:44 | CASEMGMT ---
MARIA GUADALUPE called [facility] and spoke with Pavithra requesting [facility] for wheelchair transport. MARIA GUADALUPE also told Pavithra patient will need a wheelchair and O2 provided. Pavithra said she cannot guarantee these will be provided as patients are supposed to have their own DME. MARIA GUADALUPE requested a 3p [place] [id number]. MARIA GUADALUPE called [facility] and spoke with Arlen and Daily? MARIA GUADALUPE gave them the confirmation number and transport was arranged for 3p. MARIA GUADALUPE faxed and e-mailed orders, COVID test, and roll picker time to [facility]. MARIA GUADALUPE also called patient's daughter and notified her. Patient, RN, and administrative secretary were notified. MARIA GUADALUPE completed a convalescent in [facility]. All in agreement with d/c plan. MARIA GUADALUPE called Marcos at [facility] and let him know patient will be there tomorrow. MARIA GUADALUPE called [facility] and let them know patient will be going to [facility] for short term rehab. Plan: [facility] under skilled level of care on a convalescent stay. [facility] transported via md van. This was set up through [employer] [id number]. Evy GONZALEZ
== END 2021-12-02 15:17 | disposition skilled nursing facility (03) | DRG 190 ==
LOC: ED 08:09 → PCU 09:17
PROVIDERS: Hospitalist; Admitting Provider Student in an Organized Health Care Education/Training Program; Emergency Provider Emergency Medicine; PCP Family Medicine; Visit Provider Student in an Organized Health Care Education/Training Program
DX: J44.1 Chronic obstructive pulmonary disease with (acute) exacerbation (principal); J96.21 Acute and chronic respiratory failure with hypoxia; N18.6 End stage renal disease; I13.2 Hypertensive heart and chronic kidney disease with heart failure and with stage 5 chronic kidney disease, or end stage renal disease; I50.22 Chronic systolic (congestive) heart failure; D63.1 Anemia in chronic kidney disease; E11.22 Type 2 diabetes mellitus with diabetic chronic kidney disease; I48.0 Paroxysmal atrial fibrillation; Z99.2 Dependence on renal dialysis; E87.5 Hyperkalemia; E78.00 Pure hypercholesterolemia, unspecified; K21.9 Gastro-esophageal reflux disease without esophagitis; F17.210 Nicotine dependence, cigarettes, uncomplicated; F41.9 Anxiety disorder, unspecified; I25.2 Old myocardial infarction; G89.29 Other chronic pain; F32.A Depression, unspecified; R07.89 Other chest pain; Z99.81 Dependence on supplemental oxygen; Z79.01 Long term (current) use of anticoagulants; Z79.891 Long term (current) use of opiate analgesic; Z79.899 Other long term (current) drug therapy; Z86.718 Personal history of other venous thrombosis and embolism; Z86.73 Personal history of transient ischemic attack (TIA), and cerebral infarction without residual deficits
CPT/HCPCS: 36415; 71045; 78452; 80048; 82962; 83880; 84484; 85025; 87426; 90937; 93005; 93017; 94002; 94003; 94640; 94760; 94762; 97162; 97166; 97530; 99284; 99285; 99406; A9500; J7050; A4216; G0257; J2785

== ENCOUNTER 2021-12-13 20:22 | Emergency (ER) | payer MEDICARE, MEDICAID, SELFPAY ==
[2021-12-13] VITALS (7 sets, daily range): BP systolic 150–187; BP diastolic 55–76; PULSE 62–77; RESP 18–24; TEMP 36.6; O2SAT 99–100; BMI 27.1
--- NOTE | 2021-12-13 20:37 | ED.RN ---
Pt taken off of 100% nonrebreather mask. Pt placed on her home 02 at [facility]
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
--- NOTE | 2021-12-13 21:05 | CT_ITS ---
EXAM: CT ABDOMEN AND PELVIS WITHOUT INTRAVENOUS CONTRAST CLINICAL INDICATION: Abdominal pain TECHNIQUE: Helically acquired images were obtained of the abdomen and pelvis without intravenous contrast. CTDIvol = ( 14.34 ) mGy, DLP = ( 648.27 ) mGycm This CT exam was performed using one or more of the following dose reduction techniques: automated exposure control, adjustment of the mA and/or kV according to patient size, and/or use of iterative reconstruction technique. This report was created using [employer] report generation technology. COMPARISON: April 20, 2021. FINDINGS: LOWER THORAX: Cardiomegaly. No pericardial effusion. Moderate right and small left pleural effusion with adjacent passive atelectasis. ABDOMEN: LIVER: Stable appearance of hypodense rounded pericapsular liver mass (2.2 cm) at the anterior segment of the right hepatic lobe. GALLBLADDER AND BILE DUCTS: Unremarkable. No calcified gallstones. No gallbladder distention or wall edema. No intra- or extrahepatic biliary ductal dilation. PANCREAS: Unremarkable. No focal cystic mass. SPLEEN: Unremarkable. Normal size without focal cystic or solid mass. ADRENALS: Unremarkable. No nodules. KIDNEYS AND URETERS: Exophytic left renal cyst anteriorly. No hydronephrosis or other renal abnormalities. Normal renal size and position. STOMACH AND BOWEL: Surgical artifact involving colon in the right abdomen. No stomach or bowel distention. No focal inflammatory change. PELVIS: APPENDIX: No evidence of acute appendicitis. BLADDER: Unremarkable. REPRODUCTIVE: Unremarkable as visualized. No mass. ABDOMEN and PELVIS: INTRAPERITONEAL SPACE: Unremarkable. No ascites or other fluid collection. No free air. BONES/JOINTS: Bilateral total hip arthroplasties with satisfactory alignment and no complications. No suspicious lytic or blastic abnormality. SOFT TISSUES: Anasarca. No discrete abdominal or pelvic wall hernia. VASCULATURE: Infrarenal IVC filter in place. Abdominal aorta is non-dilated. LYMPH NODES: Unremarkable. No enlarged lymph nodes. CT/Abdomen/Pelvis without Cont IMPRESSION: 1. Stool throughout the colon. No acute or inflammatory abdominopelvic disease or bowel obstruction. 2. Incidental findings include pleural effusions, cardiomegaly, anasarca. Additionally ancillary findings as above. Electronically Signed: Jose Benson MD at 22:12 EDT ,
--- NOTE | 2021-12-13 21:18 | RAD_ITS ---
EXAM: XR CHEST, 1 VIEW CLINICAL INDICATION: Dyspnea TECHNIQUE: Frontal view of the chest. This report was created using [employer] report generation technology. COMPARISON: 11/27/2021 FINDINGS: LUNGS AND PLEURAL SPACES: Moderate-sized pleural effusions, increase in size compared to the prior study with adjacent passive atelectasis. Vascular congestion and interstitial pulmonary edema. No pneumothorax. HEART: Enlarged cardiac silhouette concerning for cardiomegaly. MEDIASTINUM: Central airways and mediastinal contour are unremarkable. BONES/JOINTS: Degenerative changes of the spine and acromioclavicular joints. SOFT TISSUES: Unremarkable. TUBES, LINES AND DEVICES: Stable appearance of the dialysis catheter. OTHER FINDINGS: No other changes. RAD/Chest 1 View (Portable) IMPRESSION: Congestive heart failure exacerbation with mild increase in pleural effusions. Electronically Signed: Jose Benson MD at 21:53 EDT ,
[2021-12-13] MEDS: Ondansetron 4 MG/2 ML Vial IV (21:19)
[2021-12-13] MEDS: Morphine 4 MG/ML Syringe IV (21:19)
[2021-12-13 21:25] LABS: Absolute Lymphocyte Count 1.68 X10^3/uL (0.83-4.51); Absolute Neutrophil Count 10.5 X10^3/uL (2.0-7.7); Basophil# 0.03 X10^3/uL; Basophil% 0.2 % (0-1); Eosinophil# 0.11 X10^3/uL; Eosinophils% 0.8 % (0-5); Hematocrit 33.8 % (37-47); Hemoglobin 9.8 g/dL (12.0-15.0); Lymphocyte # 1.68 X10^3/ul (0.83-4.51); Lymphocyte % 12.7 % (19-41); Mean Corpuscular Hgb 31.3 pg (27.0-32.0); Mean Platelet Vol. 9.6 fl (6.2-12.0); Monocyte# 0.86 X10^3/uL; Monocyte% 6.5 % (0-10); NRBC Flagged by Analyzer 1.4 % (0-5); Neutrophil # 10.48 X10^3/uL (2.7-7.7); POSITIVE MORPHOLOGY YES; Platelet Count 184 K/mm3 (150-450); RBC Distribution Width CV 21.7 % (11.6-14.6); RBC Distribution Width SD 85.5 fl (35.1-43.9); Red Blood Count 3.13 M/mm3 (4.2-5.4); White Blood Count 13.3 K/mm3 (4.4-11.0)
--- NOTE | 2021-12-13 21:38 | ED.RN ---
ko called and updated on patient status at this time
[2021-12-13 21:40] LABS: Differential Indicated SCAN CRITERIA MET
[2021-12-13 21:43] LABS: ALB/GLOB Ratio 0.9 RATIO (0.9-2.4); AST(SGOT) 132 U/L (15-37); Alanine Aminotransfer ALT/SGPT 228 U/L (13-56); Alkaline Phosphatase 173 U/L (45-117); Anion Gap 7 (5-15); BUN 53 mg/dL (7-18); BUN/Creat Ratio 9.4 RATIO (10-20); Chloride 103 mmol/L (98-107); Creatinine, Serum 5.65 mg/dL (0.55-1.02); EST Glomerular Filtration Rate 8 mL/min (>60); Est Glom Filt Rate - Afr Amer 10 mL/min (>60); Estimated Creatinine Clearance 9.82 ml/min; Globulin 3.5 g/dL (2.2-4.2); Glucose 152 mg/dL (74-106); International Normalized Ratio 1.2; Lipase 121 U/L (73-393); Partial Thromboplast Time 24.7 Seconds (24.1-36.2); Protein, Total 6.5 g/dL (6.4-8.2); Prothrombin Time (Protime)PT. 14.5 SECONDS (11.7-14.9); Sodium Level 143 mmol/L (136-145)
[2021-12-13 21:52] LABS: Anisocytosis 1+; Platelet Estimate ADEQUATE (ADEQ); Red Cell Morphology N CHROM NORMAL (NORM C&C)
[2021-12-13 21:53] LABS: Hypochromasia RARE; Lactic Acid 1.4 mmol/L (0.4-1.9); Macrocytosis 1+; Ovalocyte RARE
[2021-12-13] MEDS: Albuterol 2.5 MG/3 ML VIAL.NEB. INHALATION (21:56)
[2021-12-13] MEDS: Ipratropium/Albuterol Sulfate 3 ML AMPUL.NEB INHALATION (21:56)
[2021-12-13] MEDS: Furosemide 40 MG/4 ML Vial IV (22:30)
--- NOTE | 2021-12-13 23:03 | EKG12_ITS ---
Test Reason : ABD PAIN Blood Pressure : / mmHG Vent. Rate : 064 BPM Atrial Rate : 064 BPM P-R Int : 154 ms QRS Dur : 070 ms QT Int : 418 ms P-R-T Axes : 003 003 063 degrees QTc Int : 431 ms Normal sinus rhythm Normal ECG Confirmed by TERE LEMON, JAN ([id number]), art editor BIRDIE TORRES ([id number]) on 12/14/2021 10:15:30 AM Referred By: SKYE Confirmed By:JAN CARRANZA MD
[2021-12-13 23:35] LABS: Troponin-I HS 77 pg/mL (3.0-54.0)
--- NOTE | 2021-12-13 23:51 | NURSING ---
report aclled to [facility]
[2021-12-14] VITALS: BP 162/98; PULSE 62; RESP 19; O2SAT 100
[2021-12-14 01:00] VITALS: RESP 21; O2SAT 98
== END 2021-12-14 01:25 | disposition home or self-care (01) ==
PROVIDERS: Emergency Provider Emergency Medicine; PCP Family Medicine; Visit Provider Emergency Medicine
DX: K59.00 Constipation, unspecified (principal); I13.2 Hypertensive heart and chronic kidney disease with heart failure and with stage 5 chronic kidney disease, or end stage renal disease; Z99.2 Dependence on renal dialysis; J44.9 Chronic obstructive pulmonary disease, unspecified; I50.9 Heart failure, unspecified; E11.22 Type 2 diabetes mellitus with diabetic chronic kidney disease; N18.6 End stage renal disease; I48.0 Paroxysmal atrial fibrillation; Z79.4 Long term (current) use of insulin; I25.2 Old myocardial infarction; E78.00 Pure hypercholesterolemia, unspecified; D63.1 Anemia in chronic kidney disease; K21.9 Gastro-esophageal reflux disease without esophagitis; M19.90 Unspecified osteoarthritis, unspecified site; F32.A Depression, unspecified; F17.210 Nicotine dependence, cigarettes, uncomplicated; Z79.01 Long term (current) use of anticoagulants; Z79.891 Long term (current) use of opiate analgesic; Z79.899 Other long term (current) drug therapy; Z86.73 Personal history of transient ischemic attack (TIA), and cerebral infarction without residual deficits
CPT/HCPCS: 71045; 74176; 80053; 83605; 83690; 83880; 84484; 85025; 85610; 85730; 87428; 93005; 94640; 96374; 96375; 99285; A4216; J1940; J2405

== ENCOUNTER 2021-12-18 09:23 | Observation (INO) | payer MEDICARE, MEDICAID, SELFPAY ==
[2021-12-18] VITALS (28 sets, daily range): BP systolic 155–199; BP diastolic 62–88; PULSE 60–85; RESP 16–24; TEMP 36.4–36.9; O2SAT 93–100; BMI 27.3; BMI 26.0
--- NOTE | 2021-12-18 09:33 | RAD_ITS ---
STUDY: X-RAY CHEST REASON FOR EXAM: Female, 71 years old. chest pain TECHNIQUE: Single AP portable view of the chest. COMPARISON: 12/13/2021 FINDINGS: Tunneled right internal jugular dialysis catheter which is unchanged. The lungs are clear and expanded. No change in the small bilateral pleural effusions with bibasilar atelectasis. There is moderate cardiac enlargement. Normal mediastinum and farhan. Normal visualized pulmonary arteries. Normal visualized aortic arch and descending thoracic aorta. Normal visualized thoracic spine. Normal visualized ribs, clavicles, and shoulders. There is no demonstrated abnormality of the visualized soft tissue structures of the upper abdomen. RAD/Chest 1 View (Portable) IMPRESSION: No change from 12/13/2021. Electronically Signed: Peña Linder MD at 11:47 EDT ,
[2021-12-18] MEDS: Ipratropium/Albuterol Sulfate 3 ML AMPUL.NEB INHALATION ×3 (09:49→19:44)
[2021-12-18] MEDS: Albuterol 2.5 MG/3 ML VIAL.NEB. INHALATION ×2 (09:52)
[2021-12-18] MEDS: MethylPREDNISolone 125 MG/2 ML Vial IV (10:53)
[2021-12-18 10:59] LABS: Absolute Neutrophil Count 7.4 X10^3/uL (2.0-7.7); Basophil# 0.01 X10^3/uL; Basophil% 0.1 % (0-1); Eosinophil# 0.05 X10^3/uL; Eosinophils% 0.5 % (0-5); Hematocrit 33.6 % (37-47); Hemoglobin 9.8 g/dL (12.0-15.0); Lymphocyte % 17.9 % (19-41); Mean Corp Hgb Conc 29.2 g/dL (32-36); Mean Corpuscular Hgb 30.2 pg (27.0-32.0); Mean Corpuscular Volume 103.7 fL (81-99); Mean Platelet Vol. 9.8 fl (6.2-12.0); Monocyte# 0.76 X10^3/uL; Monocyte% 7.6 % (0-10); NRBC Flagged by Analyzer 0.6 % (0-5); Neutrophil # 7.38 X10^3/uL (2.7-7.7); Neutrophil % 73.4 % (47-70); POSITIVE MORPHOLOGY YES; Platelet Count 160 K/mm3 (150-450); RBC Distribution Width CV 20.5 % (11.6-14.6); Red Blood Count 3.24 M/mm3 (4.2-5.4); White Blood Count 10.1 K/mm3 (4.4-11.0)
[2021-12-18 11:00] LABS: Differential Indicated SCAN CRITERIA MET
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
[2021-12-18 11:09] LABS: Anion Gap 8 (5-15); BUN 58 mg/dL (7-18); BUN/Creat Ratio 9.4 RATIO (10-20); Calcium,Total 9.1 mg/dL (8.5-10.1); Chloride 100 mmol/L (98-107); Creatinine, Serum 6.19 mg/dL (0.55-1.02); EST Glomerular Filtration Rate 7 mL/min (>60); Est Glom Filt Rate - Afr Amer 9 mL/min (>60); Estimated Creatinine Clearance 8.96 ml/min; Glucose 86 mg/dL (74-106); Potassium 5.6 mmol/L (3.5-5.1); Sodium Level 138 mmol/L (136-145); Troponin-I HS (w/2H Reflex) 42 pg/mL (3.0-54.0)
[2021-12-18 11:20] LABS: Anisocytosis 2+; Macrocytosis 1+; Microcytosis 1+
[2021-12-18 11:36] LABS: International Normalized Ratio 1.1; Prothrombin Time (Protime)PT. 14.2 SECONDS (11.7-14.9)
[2021-12-18 12:48] LABS: Reflex Troponin-HS? (from REC) Y
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
[2021-12-18] MEDS: Furosemide 40 MG/4 ML Vial IV (13:29)
[2021-12-18] MEDS: hydrALAZINE 50 MG Tablet 100 MG PO ×2 (14:16→23:22)
[2021-12-18] MEDS: oxyCODONE 5 MG Tablet 10 MG PO ×2 (14:16→23:24)
[2021-12-18] MEDS: Dicyclomine 10 MG Capsule 20 MG PO ×2 (14:16→23:22)
--- NOTE | 2021-12-18 16:01 | EKG12_ITS ---
Test Reason : Blood Pressure : / mmHG Vent. Rate : 071 BPM Atrial Rate : 071 BPM P-R Int : 148 ms QRS Dur : 084 ms QT Int : 422 ms P-R-T Axes : 056 -09 063 degrees QTc Int : 458 ms Normal sinus rhythm with sinus arrhythmia Normal ECG When compared with ECG of 13-DEC-2021 23:12, No significant change was found Confirmed by TERE LEMON, JAN ([id number]), editor index BIRDIE TORRES ([id number]) on 12/20/2021 8:43:24 AM Referred By: BRENNAN Confirmed By:JAN CARRANZA MD
[2021-12-18] MEDS: Nitroglycerin (INPATIENT USE) 0.4 MG TAB.SUBL SL ×2 (16:35→16:43)
[2021-12-18] MEDS: Insulin Lispro 100 UNIT/ML INSULN.PEN SC (16:38)
[2021-12-18] MEDS: Calcium Acetate 667 MG Capsule 1334 MG PO (16:39)
[2021-12-18 16:56] LABS: Bedside Glucose 195 mg/dL (74-106)
[2021-12-18 17:05] LABS: Troponin-I HS 40 pg/mL (3.0-54.0)
--- NOTE | 2021-12-18 19:01 | DIALYSIS ---
Order for dialysis today, 2k, 2ca, 35hco3, na 135, 2hour tx with uf 2liters. f 160 dialyzer, bfr 300, dfr 600. See written order.
--- NOTE | 2021-12-18 21:08 | DIALYSIS ---
2 hour treatment complete. net uf 2000 removed. tolerated well. C/O chest pain post tx, primary nurse felicia advised. see scanned records.
[2021-12-18 22:56] LABS: Bedside Glucose 127 mg/dL (74-106)
[2021-12-18] MEDS: Lactulose 20 GM/30 ML UDC PO (23:22)
[2021-12-18] MEDS: 0.9% Saline Lock 10 ML Syringe IV (23:23)
[2021-12-18] MEDS: Montelukast 10 MG Tablet PO (23:25)
[2021-12-18] MEDS: Mirtazapine 30 MG Tablet 45 MG PO (23:25)
[2021-12-18] MEDS: APIXABAN 2.5 MG TABLET PO (23:25)
[2021-12-19] VITALS (17 sets, daily range): BP systolic 158–190; BP diastolic 56–83; PULSE 58–73; RESP 16–20; TEMP 36.6–37.5; O2SAT 97–100
[2021-12-19] MEDS: cloNIDine HCl 0.1 MG Tablet PO (02:29)
[2021-12-19] MEDS: hydrALAZINE 50 MG Tablet 100 MG PO ×3 (05:45→21:10)
[2021-12-19] MEDS: Dicyclomine 10 MG Capsule 20 MG PO ×3 (05:45→21:10)
[2021-12-19 06:28] LABS: Absolute Lymphocyte Count 0.48 X10^3/uL (0.83-4.51); Absolute Neutrophil Count 8.5 X10^3/uL (2.0-7.7); Basophil# 0.01 X10^3/uL; Basophil% 0.1 % (0-1); Hematocrit 31.1 % (37-47); Hemoglobin 9.5 g/dL (12.0-15.0); Lymphocyte # 0.48 X10^3/ul (0.83-4.51); Lymphocyte % 5.1 % (19-41); Mean Corp Hgb Conc 30.5 g/dL (32-36); Mean Corpuscular Hgb 30.9 pg (27.0-32.0); Mean Corpuscular Volume 101.3 fL (81-99); Mean Platelet Vol. 9.6 fl (6.2-12.0); Monocyte# 0.36 X10^3/uL; Monocyte% 3.8 % (0-10); NRBC Flagged by Analyzer 0.5 % (0-5); Neutrophil # 8.45 X10^3/uL (2.7-7.7); Neutrophil % 90.3 % (47-70); POSITIVE DIFFERENTIAL YES; POSITIVE MORPHOLOGY YES; Platelet Count 144 K/mm3 (150-450); RBC Distribution Width CV 20.1 % (11.6-14.6); RBC Distribution Width SD 75.1 fl (35.1-43.9); Red Blood Count 3.07 M/mm3 (4.2-5.4); White Blood Count 9.4 K/mm3 (4.4-11.0)
[2021-12-19 06:34] LABS: Differential Indicated SCAN CRITERIA MET
[2021-12-19] MEDS: Ipratropium/Albuterol Sulfate 3 ML AMPUL.NEB INHALATION ×3 (06:48→14:33)
[2021-12-19 06:51] LABS: Bedside Glucose 138 mg/dL (74-106)
[2021-12-19 07:02] LABS: Anisocytosis 2+; Differential Comment SCANNED; Macrocytosis 1+; Microcytosis 1+
[2021-12-19 07:10] LABS: Anion Gap 9 (5-15); BUN 46 mg/dL (7-18); BUN/Creat Ratio 8.9 RATIO (10-20); Calcium,Total 8.6 mg/dL (8.5-10.1); Chloride 101 mmol/L (98-107); Creatinine, Serum 5.18 mg/dL (0.55-1.02); EST Glomerular Filtration Rate 9 mL/min (>60); Est Glom Filt Rate - Afr Amer 11 mL/min (>60); Estimated Creatinine Clearance 10.71 ml/min; Glucose 139 mg/dL (74-106); Potassium 5.7 mmol/L (3.5-5.1); Sodium Level 138 mmol/L (136-145)
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
[2021-12-19] MEDS: Insulin Lispro 100 UNIT/ML INSULN.PEN SC ×2 (11:20→21:19)
[2021-12-19 11:36] LABS: Bedside Glucose 252 mg/dL (74-106)
[2021-12-19] MEDS: DULoxetine Hcl 20 MG Capsule 40 MG PO (11:56)
[2021-12-19] MEDS: Calcium Acetate 667 MG Capsule 1334 MG PO ×2 (11:56→16:25)
[2021-12-19] MEDS: Gabapentin 600 MG Tablet PO (11:57)
[2021-12-19] MEDS: Folic Acid/Vitamin B Comp W-C 1 Capsule 1 CAP PO (11:57)
[2021-12-19] MEDS: Atenolol 50 MG Tablet PO (11:57)
[2021-12-19] MEDS: APIXABAN 2.5 MG TABLET PO ×2 (11:57→21:09)
[2021-12-19] MEDS: oxyCODONE 5 MG Tablet 10 MG PO ×2 (11:57→21:10)
[2021-12-19] MEDS: amLODIPine 10 MG Tablet PO (11:57)
[2021-12-19] MEDS: Pantoprazole Sodium 20 MG Tablet PO (11:58)
[2021-12-19] MEDS: Heparin 10,000 UNITS/10 ML Vial 3200 UNITS IV (12:01)
--- NOTE | 2021-12-19 12:24 | DIALYSIS ---
HD x 3.5 hours complete. Tolerated tx well. UF of 3000ml. Used right chest wall dialysis catheter. Lumens closed with heparin per fill volume. Caps placed. Report was given to REGGIE Parnell.
--- NOTE | 2021-12-19 14:17 | CASEMGMT ---
RN MITA NOTE: Intro role of CM to patient and RED form explained re: Observation status for treatment of fluid overload.? Explained hospitalization will be paid per her? insurance policy for Outpatient billing?and condition will continue to be evaluated for Inpt necessity. Also let pt know that [facility] sends paper in the billing packet with their phone number if questions arise. Discussed Pharmacy section of RED form and self administered medication guideline.? Pt verbalizes understanding and does not have any questions. ?Form signed, copy made and placed in chart, and original given to pt. Tanmay HOFFMANN RN CM
[2021-12-19] MEDS: 0.9% Saline Lock 10 ML Syringe IV (14:27)
[2021-12-19] MEDS: Glucerna Shake 120 ML LIQUID PO ×3 (14:28→21:09)
[2021-12-19] MEDS: Calcium Carbonate 500 MG Tablet 1000 MG PO (14:56)
--- NOTE | 2021-12-19 15:57 | CHAPLAIN ---
Type of Pastoral Visit _x__ Initial Visit ___ Follow-up Visit ___ On-call Visit ___ General Patient Visit ___ Spiritual Assessment ___ Family Conference ___ Bereavement ___ Rapid Response ___ Code Blue ___ Other (describe below) Pastoral Care Referral From _x__ Patient ___ Family ___ Nurse ___ Physician ___ Plaster Model And Mold Maker ___ Diamond Sander ___ Other (describe below) Sacrament/Intervention _x__ Active listening ___ Anointing ___ Latter-Day ___ Bereavement ___ Communion _x__ Flaca exploration ___ ___ Life review _x__ Prayer ___ Reconciliation ___ Sacrament of Sick _x__ Supportive presence ___ Wedding ___ Other (describe below) Pastoral Comments patient remembers this youth minister from previous visits; pt is talkative more than previously and shows more energy in conversation; pt states she is doing better and her goal is to get finished with therapy at [facility] so she can go home; pt is missing her cat and worries about her plants; no other needs
[2021-12-19 16:40] LABS: Bedside Glucose 152 mg/dL (74-106)
--- NOTE | 2021-12-19 20:45 | PN.HOSP_ITS ---
Subjective Subjective Patient was seen and examined today, I talked with the nephrology nurse who is dialyzing the patient today, patient appears comfortable at this time, she does not have any complaints of shortness of breath or chest discomfort. Patient will need prior authorization [facility]. Objective Data Objective Data Vital Signs: Vital Signs Temp Pulse Resp BP Pulse Ox 99.1 F 68 20 H 158/56 H 99 12/19/21 15:00 12/19/21 19:12 12/19/21 15:00 12/19/21 15:00 12/19/21 15:00 Oxygen Flow Rate (L/min) 2 Oxygen Delivery Method Nasal Cannula Weight: 80 kg Body Mass Index (BMI) 26.0 Intake & Output: Intake and Output for Last 24 Hours 12/17/21 12/18/21 12/19/21 23:59 23:59 23:59 Intake Total 260 / 260 630 / 630 Output Total 1999 / 1999 3000 / 3000 Balance -1740 / -1740 -2370 / -2370 Lab / Micro Data Result Diagrams: 12/19/21 06:07 12/20/21 06:20 Labs: Laboratory Results - last 24 hr 12/18/21 22:44: POC Glucose 127 H 12/19/21 06:07: WBC 9.4, RBC 3.07 L, Hgb 9.5 L, Hct 31.1 L, MCV 101.3 H, MCH 30.9, MCHC 30.5 L, RDW Std Deviation 75.1 H, RDW Coeff of Destiny 20.1 H, Plt Count 144 L, MPV 9.6, Immature Gran % (Auto) 0.700, Neut % (Auto) 90.3 H, Lymph % (Auto) 5.1 L, Ray % (Auto) 3.8, Eos % (Auto) 0.0, Baso % (Auto) 0.1, Absolute Neuts (auto) 8.5 H, Absolute Lymphs (auto) 0.48 L, Nucleated RBC % 0.5, Differential Comment SCANNED, Anisocytosis 2+, Microcytosis 1+, Macrocytosis 1+ 12/19/21 06:07: Sodium 138, Potassium 5.7 H, Chloride 101, Carbon Dioxide 28.0, Anion Gap 9, BUN 46 H, Creatinine 5.18 H, Estim Creat Clear Calc 10.71, Est GFR (MDRD) Af Amer 11 L, Est GFR (MDRD) Non-Af 9 L, BUN/Creatinine Ratio 8.9 L, Glucose 139 H, Calcium 8.6 12/19/21 06:45: POC Glucose 138 H 12/19/21 11:19: POC Glucose 252 H 12/19/21 16:23: POC Glucose 152 H Micro: Microbiology 12/18/21 10:28 Nasal Secretion SARS-CoV-2 Antigen (Rapid) - Final Rhythm Strip Rhythm Strip: Sinus Rhythm Rate: 64 Ectopy: None Physical Exam Const alert, oriented x3 and no apparent distress General Appearance: cooperative, well kempt and well developed Orientation / Consciousness: awake, oriented to person, oriented to place and oriented to time HEENT normocephalic, head/scalp atraumatic and moist oral mucous membranes Eyes PERRL, EOMs intact bilaterally and conjunctivae normal Neck nuchal rigidity, supple, no JVD, thyroid normal and no carotid bruits General: trachea midline Resp normal respiratory effort, no retractions, no use of accessory muscles and clear to auscultation bilaterally Auscultation: Negative for rales, rhonchi or wheezes Cardio regular rate, regular rhythm, S1 normal heart sound, S2 normal heart sound, no murmurs, no rub and no gallops GI normal to inspection, nondistended, normoactive bowel sounds, soft to palpation, non-tender and non-distended Extremity full ROM Skin no rashes or lesions noted General Skin Exam: no breakdown Neuro oriented x3, CN's II-XII intact bilaterally, no focal motor deficits and no sensory deficits noted Sensorium / Orientation: awake and alert Speech: speech normal Psych affect normal Assessment & Plan Assessment/Plan (1) Acute and chronic respiratory failure with hypoxia: PLAN: Plan 1. Fluid overload secondary to abbreviated dialysis session-patient will hopefully undergo full dialysis treatment today #2 exacerbation of COPD-continue IV Solu-Medrol, patient is receiving aerosol treatments #3 paroxysmal atrial fibrillation-patient is on Eliquis and rate control medications #4 chronic depression-patient is on Cymbalta #5 essential hypertension-patient will remain on current medications including amlodipine Patient will need placement in a penit[facility]iary facility, pre-CERT is pending at this time Charges/Coding Visit Charges Inpatient E&M: 94545 Subs Hosp L2
[2021-12-19] MEDS: Lactulose 20 GM/30 ML UDC PO (21:09)
[2021-12-19] MEDS: Montelukast 10 MG Tablet PO (21:09)
[2021-12-19] MEDS: Mirtazapine 30 MG Tablet 45 MG PO (21:09)
[2021-12-19 22:40] LABS: Bedside Glucose 276 mg/dL (74-106)
[2021-12-20] VITALS (18 sets, daily range): BP systolic 151–191; BP diastolic 57–83; PULSE 55–67; RESP 16–20; TEMP 36.5–36.9; O2SAT 95–100
[2021-12-20] MEDS: cloNIDine HCl 0.1 MG Tablet PO (03:00)
[2021-12-20] MEDS: hydrALAZINE 50 MG Tablet 100 MG PO ×3 (05:44→21:37)
[2021-12-20] MEDS: Dicyclomine 10 MG Capsule 20 MG PO ×3 (05:44→21:38)
[2021-12-20] MEDS: 0.9% Saline Lock 10 ML Syringe IV (06:10)
[2021-12-20 06:21] LABS: Bedside Glucose 132 mg/dL (74-106)
[2021-12-20 07:05] LABS: Albumin, Serum 2.7 g/dL (3.2-5.0); BUN 37 mg/dL (7-18); BUN/Creat Ratio 8.9 RATIO (10-20); Calcium,Total 8.7 mg/dL (8.5-10.1); Chloride 101 mmol/L (98-107); Creatinine, Serum 4.16 mg/dL (0.55-1.02); EST Glomerular Filtration Rate 11 mL/min (>60); Est Glom Filt Rate - Afr Amer 14 mL/min (>60); Estimated Creatinine Clearance 13.34 ml/min; Glucose 138 mg/dL (74-106); Magnesium 2.6 mg/dL (1.6-2.6); Phosphorus 4.8 mg/dL (2.5-4.9); Potassium 4.6 mmol/L (3.5-5.1); Sodium Level 138 mmol/L (136-145)
[2021-12-20] MEDS: Ipratropium/Albuterol Sulfate 3 ML AMPUL.NEB INHALATION ×4 (07:16→19:17)
[2021-12-20] MEDS: Polyethylene Glycol 3350 17 GM PACKET PO (10:43)
[2021-12-20] MEDS: Glucerna Shake 120 ML LIQUID PO ×4 (10:43→21:39)
[2021-12-20] MEDS: Atenolol 50 MG Tablet PO (10:43)
[2021-12-20] MEDS: oxyCODONE 5 MG Tablet 10 MG PO ×3 (10:43→21:48)
[2021-12-20] MEDS: DULoxetine Hcl 20 MG Capsule 40 MG PO (10:44)
[2021-12-20] MEDS: amLODIPine 10 MG Tablet PO (10:44)
[2021-12-20] MEDS: APIXABAN 2.5 MG TABLET PO ×2 (10:44→21:37)
[2021-12-20] MEDS: Calcium Acetate 667 MG Capsule 1334 MG PO ×3 (10:44→18:01)
[2021-12-20] MEDS: Gabapentin 600 MG Tablet PO (10:44)
[2021-12-20] MEDS: Pantoprazole Sodium 20 MG Tablet PO (10:44)
[2021-12-20] MEDS: Insulin Lispro 100 UNIT/ML INSULN.PEN SC ×3 (11:12→21:42)
--- NOTE | 2021-12-20 11:12 | PN.RENAL_ITS ---
Subjective Subjective Sitting in chair. Denies any complaints. No overnight events. Reports breathing much better and feeling better today. Objective Data Objective Data Vital Signs: Vital Signs Temp Pulse Resp BP Pulse Ox 98.4 F 64 20 H 167/61 H 100 12/20/21 09:00 12/20/21 09:00 12/20/21 09:00 12/20/21 09:00 12/20/21 09:00 Oxygen Flow Rate (L/min) 2 Oxygen Delivery Method Nasal Cannula Weight: 79.8 kg Body Mass Index (BMI) 26.0 Intake & Output: Intake and Output for Last 24 Hours 12/18/21 12/19/21 12/20/21 23:59 23:59 23:59 Intake Total 260 / 260 990 / 990 120 / 120 Output Total 1999 / 1999 3000 / 3000 0 / 0 Balance -1740 / -174 -2009 / 120 / 120 Lab / Micro Data Result Diagrams: 12/19/21 06:07 12/20/21 06:20 Labs: Laboratory Results - last 24 hr 12/19/21 11:19: POC Glucose 252 H 12/19/21 16:23: POC Glucose 152 H 12/19/21 21:18: POC Glucose 276 H 12/20/21 06:12: POC Glucose 132 H 12/20/21 06:20: Sodium 138, Potassium 4.6, Chloride 101, Carbon Dioxide 29.0, BUN 37 H, Creatinine 4.16 H, Estim Creat Clear Calc 13.34, Est GFR (MDRD) Af Amer 14 L, Est GFR (MDRD) Non-Af 11 L, BUN/Creatinine Ratio 8.9 L, Glucose 138 H , Calcium 8.7, Phosphorus 4.8, Magnesium 2.6, Albumin 2.7 L Micro: Microbiology 12/18/21 10:28 Nasal Secretion SARS-CoV-2 Antigen (Rapid) - Final Rhythm Strip Rhythm Strip: Sinus Rhythm Rate: 64 Ectopy: None Physical Exam Narrative Const: Alert and oriented x3 HEENT: Head is normocephalic, PERRLA Respiratory: Faint wheezing noted. No rales Cardio: S1-S2, RRR GI: Abdomen soft, nontender, positive bowel sounds Extremities: Trace edema noted bilateral lower legs and feet Tunneled HD catheter dressing clean, dry and intact Assessment & Plan Assessment/Plan (1) ESRD (end stage renal disease): (2) Acute and chronic respiratory failure with hypoxia: (3) COPD exacerbation: (4) Hyperkalemia: PLAN: Plan -ESRD HD MWF: No acute indication for MANAGEMENT ENGINEER today. Patient tolerated dialysis yesterday over 3.5 hours with 3 L UF. Next HD tomorrow. -Acute on chronic respiratory failure with hypoxia secondary to congestive heart failure, pleural effusions and COPD exacerbation. She is receiving aerosol treatments and IV steroids. Overall respiratory status improved. 3 L fluid removed with dialysis yesterday. -Anemia of chronic disease we will monitor hemoglobin trends. She receives ANGELI at the kidney center. -Blood pressure is elevated but improved. Continue Norvasc 10 mg daily, atenolol 50 mg daily, Hydralazine 100 mg 3 times daily. Midodrine stopped. Expect Bps to improve with UF and lowering edw. Will follow bps trends. -Phosphorus 4.8, calcium 8.7. Continue PhosLo as ordered. - K+4.6 today. Continue renal diet. - possible discharge back to [facility] today. Ok per renal standpoint. Will follow patient at kidney center.
[2021-12-20 11:35] LABS: Bedside Glucose 220 mg/dL (74-106)
--- NOTE | 2021-12-20 11:53 | PN.HOSP_ITS ---
Subjective Subjective Patient was seen and examined today, she does not appear to be in any respiratory distress, she remains on nasal cannula oxygen. I had a discussion with the patient about COPD, she denies having COPD but states she still smokes that the shelter but not on a daily basis. Objective Data Objective Data Vital Signs: Vital Signs Temp Pulse Resp BP Pulse Ox 98.4 F 63 20 H 167/61 H 100 12/20/21 09:00 12/20/21 11:25 12/20/21 11:25 12/20/21 09:00 12/20/21 09:00 Oxygen Flow Rate (L/min) 2 Oxygen Delivery Method Nasal Cannula Weight: 79.8 kg Body Mass Index (BMI) 26.0 Intake & Output: Intake and Output for Last 24 Hours 12/18/21 12/19/21 12/20/21 23:59 23:59 23:59 Intake Total 260 / 260 990 / 990 120 / 120 Output Total 2000 / 2000 3000 / 3000 0 / 0 Balance -1740 / -174 -2009 / 120 / 120 Lab / Micro Data Result Diagrams: 12/19/21 06:07 12/20/21 06:20 Labs: Laboratory Results - last 24 hr 12/19/21 16:23: POC Glucose 152 H 12/19/21 21:18: POC Glucose 276 H 12/20/21 06:12: POC Glucose 132 H 12/20/21 06:20: Sodium 138, Potassium 4.6, Chloride 101, Carbon Dioxide 29.0, BUN 37 H, Creatinine 4.16 H, Estim Creat Clear Calc 13.34, Est GFR (MDRD) Af Amer 14 L, Est GFR (MDRD) Non-Af 11 L, BUN/Creatinine Ratio 8.9 L, Glucose 138 H , Calcium 8.7, Phosphorus 4.8, Magnesium 2.6, Albumin 2.7 L 12/20/21 11:11: POC Glucose 220 H Micro: Microbiology 12/18/21 10:28 Nasal Secretion SARS-CoV-2 Antigen (Rapid) - Final Rhythm Strip Rhythm Strip: Sinus Rhythm Rate: 64 Ectopy: None Physical Exam Const alert, oriented x3, no apparent distress and average body habitus General Appearance: cooperative, well kempt and well developed Orientation / Consciousness: awake, oriented to person, oriented to place and oriented to time HEENT normocephalic, head/scalp atraumatic and moist oral mucous membranes Eyes PERRL, EOMs intact bilaterally and conjunctivae normal Neck nuchal rigidity, supple, no JVD, thyroid normal and no carotid bruits General: trachea midline Resp normal respiratory effort, no retractions, no use of accessory muscles and clear to auscultation bilaterally Auscultation: Negative for rales, rhonchi or wheezes Cardio regular rate, regular rhythm, S1 normal heart sound, S2 normal heart sound, no murmurs, no rub and no gallops GI normal to inspection, nondistended, normoactive bowel sounds, soft to palpation, non-tender and non-distended Extremity full ROM Skin no rashes or lesions noted General Skin Exam: no breakdown Neuro oriented x3, CN's II-XII intact bilaterally, no focal motor deficits and no sensory deficits noted Sensorium / Orientation: awake and alert Speech: speech normal Psych affect normal Assessment & Plan Assessment/Plan (1) Acute and chronic respiratory failure with hypoxia: PLAN: Plan 1. Fluid overload secondary to abbreviated dialysis session-she will have a full dialysis session tomorrow #2 exacerbation of COPD-I will switch the patient to oral prednisone today and stop her IV Solu-Medrol #3 paroxysmal atrial fibrillation-patient is on Eliquis and rate control medications #4 chronic depression-patient is on Cymbalta #5 essential hypertension-patient will remain on current medications including amlodipine Patient will need placement in a half-way facility, pre-CERT is pending at this time Charges/Coding Visit Charges OBSV E&M: 56558 Subsequent observation care L3
--- NOTE | 2021-12-20 15:17 | CASEMGMT ---
Discharge Project Developer Called [employer] [facility] [place] to check on Pre-cert status. Pre-cert has not been obtained yet. Will follow up. Amanda Daly Discharge Project Developer
[2021-12-20 17:10] LABS: Bedside Glucose 181 mg/dL (74-106)
[2021-12-20] MEDS: predniSONE 20 MG Tablet PO (18:02)
[2021-12-20] MEDS: Montelukast 10 MG Tablet PO (21:36)
[2021-12-20] MEDS: Mirtazapine 30 MG Tablet 45 MG PO (21:36)
[2021-12-20] MEDS: Lactulose 20 GM/30 ML UDC PO (21:38)
[2021-12-20 22:46] LABS: Bedside Glucose 194 mg/dL (74-106)
[2021-12-21] VITALS (10 sets, daily range): BP systolic 141–173; BP diastolic 71–90; PULSE 58–63; RESP 16–20; TEMP 36.6–37.2; O2SAT 99–100
[2021-12-21] MEDS: Dicyclomine 10 MG Capsule 20 MG PO ×2 (06:20→13:45)
[2021-12-21] MEDS: hydrALAZINE 50 MG Tablet 100 MG PO ×2 (06:21→13:44)
[2021-12-21 06:40] LABS: Bedside Glucose 99 mg/dL (74-106)
[2021-12-21] MEDS: Ipratropium/Albuterol Sulfate 3 ML AMPUL.NEB INHALATION ×2 (07:22→11:22)
[2021-12-21] MEDS: oxyCODONE 5 MG Tablet 10 MG PO ×2 (07:44→12:40)
--- NOTE | 2021-12-21 08:55 | PCM.PN.REN ---
Subjective Subjective Sitting up in bed, eating breakfast. Denies any complaints. Reports breathing is better. Objective Data Objective Data Vital Signs: Vital Signs Temp Pulse Resp BP Pulse Ox 98.9 F 63 20 H 171/74 H 99 12/21/21 04:00 12/21/21 07:23 12/21/21 07:23 12/21/21 06:21 12/21/21 07:23 Oxygen Flow Rate (L/min) 2 Oxygen Delivery Method Nasal Cannula Weight: 79 kg Body Mass Index (BMI) 26.0 Intake & Output: Intake and Output for Last 24 Hours 12/19/21 12/20/21 12/21/21 23:59 23:59 23:59 Intake Total 990 / 990 1100 / 1500 650 / 650 Output Total 3000 / 3000 0 / 0 Balance -2009 1100 / 1500 650 / 650 Lab / Micro Data Result Diagrams: 12/19/21 06:07 12/20/21 06:20 Labs: Laboratory Results - last 24 hr 12/20/21 11:11: POC Glucose 220 H 12/20/21 17:03: POC Glucose 181 H 12/20/21 21:41: POC Glucose 194 H 12/21/21 06:25: POC Glucose 99 Micro: Microbiology 12/18/21 10:28 Nasal Secretion SARS-CoV-2 Antigen (Rapid) - Final Rhythm Strip Rhythm Strip: Sinus Rhythm Rate: 64 Ectopy: None Physical Exam Narrative Const: Alert and oriented x3 HEENT: Head is normocephalic, PERRLA Respiratory: Faint wheezing noted. No rales or rhonchi Cardio: S1-S2, RRR GI: Abdomen soft, nontender, positive bowel sounds Extremities: Trace edema noted bilateral lower legs and feet Tunneled HD catheter dressing clean, dry and intact Assessment & Plan Assessment/Plan (1) ESRD (end stage renal disease): (2) Acute and chronic respiratory failure with hypoxia: (3) COPD exacerbation: (4) Hyperkalemia: PLAN: Plan -ESRD HD MWF: Patient to dialyze today over 3.5 hours, 2K bath and attempt at least 3 L as patient and blood pressure will tolerate. Patient tolerated dialysis Sunday with 3 L UF. -Acute on chronic respiratory failure with hypoxia secondary to congestive heart failure, pleural effusions and COPD exacerbation. Improving. She is receiving aerosol treatments and steroids. Overall respiratory status improved. Attempting to remove fluid with HD today. -Anemia of chronic disease we will monitor hemoglobin trends. She receives ANGELI at the kidney center. -Blood pressure is elevated. Continue Norvasc 10 mg daily, Hydralazine 100 mg 3 times daily. Midodrine stopped. Expect Bps to improve with UF and lowering edw. Will follow bps trends. Today bps elevated, will stop daily atenolol and switch to BID coreg and follow bp trends at hospital and at kidney center -Phosphorus 4.8, calcium 8.7. Continue PhosLo as ordered. - Continue renal diet. - possible discharge today. Ok per renal standpoint. Will follow patient at kidney center.
--- NOTE | 2021-12-21 09:13 | CASEMGMT ---
Discharge Hunter Trapper [employer] reached out via email. Vicky has obtained pre-cert. MARIA GUADALUPE Ratl[place] notified. Amanda Daly Discharge Hunter Trapper
--- NOTE | 2021-12-21 10:27 | TREXTCAR_ITS ---
Diet Diet Order/Speech Therapy: 12/19/21 11:52 Diet: Renal - ConsCHO - Nas Cont Food consistency:: Regular Liquid Consistency:: Regular/Thin Dietary Modifications:: Sodium Restricted Potassium Restricted Phosphorus Restricted Is pt able to select menu?: Yes Fluid restriction:: 1500 mL How many daily calories?: 1800 calorie Routine Orders/Code Status O2 Liters per Minute: 2 O2 Frequency: Continuous Keep PO Greater than or Equal to (%): 90 Code Status: Full Code Therapies Weight Bearing: Full weight bearing Physical Therapy: Eval and Treat Occupational Therapy: Eval and Treat Problem/Diagnosis (1) ESRD (end stage renal disease): Status: Chronic Code(s): N18.6 - End stage renal disease (2) Acute and chronic respiratory failure with hypoxia: Status: Chronic Code(s): J96.21 - Acute and chronic respiratory failure with hypoxia (3) COPD exacerbation: Status: Acute Code(s): J44.1 - Chronic obstructive pulmonary disease with (acute) exacerbation (4) Hyperkalemia: Status: Acute Code(s): E87.5 - Hyperkalemia (5) AF (paroxysmal atrial fibrillation): Status: Chronic Code(s): I48.0 - Paroxysmal atrial fibrillation (6) HTN (hypertension): Status: Chronic Code(s): I10 - Essential (primary) hypertension Comment: controlled with med (7) Diabetes mellitus, type II: Status: Chronic Code(s): E11.9 - Type 2 diabetes mellitus without complications Comment: diet controlled (8) Chronic pain: Status: Chronic Code(s): G89.29 - Other chronic pain Allergies/Procedures Done in Hospital Allergies No Known Allergies Allergy (Verified 12/18/21 09:24) Procedures: Dialysis Type of Care/Length of Stay Estimated LOS: Convalescent Care Less Than 30 days Type of Care Needed: Skilled Rehab Potential: Good Prognosis: Good Additional Orders/Day of Discharge H&P will serve as current which was dated: 12/18/21 Day of Discharge: 12/21/21 Dietary and Speech Recommendations Dietitian Recommendations/Changes: Will adjust diet to 1800 calorie/Consistent- Carbohydrate; Renal. Will offer Nepro PO if intake regresses at meals, defer for now. Diet education as per patient request. Discharge Plan Admission Admit Date/Time: 12/18/21 13:13 Primary Reason for Your Visit: fluid overload, exac of COPD Attending Provider: Shar Wakefield Primary Care Provider: Nehemiah Colmenares Consulting Providers: Brittani Byrne ; Malu Smith Discharge Orders/Prescriptions Prescriptions: New carvedilol 25 mg Tablet 25 mg PO BID Qty: 0 0RF ipratropium-albuterol 0.5 mg-3 mg(2.5 mg base)/3 mL Solution For Nebulization 3 ml inhalation 4X/DAY Qty: 0 0RF prednisone 20 mg Tablet 20 mg PO BIDCM Qty: 0 0RF Rx Instructions: for 3 days, then stop oxycodone 5 mg Tablet 10 mg PO BID 5 Days Qty: 20 0RF Continued hydralazine 100 MG tablet 100 mg PO TID amlodipine 10 mg Tablet 10 mg PO DAILY calcium acetate(phosphat bind) 667 mg Capsule 1,334 mg PO TID mirtazapine 45 mg Tablet 45 mg PO QHS Eliquis 2.5 mg Tablet 2.5 mg PO BID dicyclomine 20 mg tablet 20 mg PO TID Label Comments: Take 1 tablet by mouth three times daily before meals. gabapentin 600 mg tablet 600 mg PO MOWEFR Label Comments: 1 TABLET BY MOUTH EVERY (3P-6P AFTER DIALYSIS) DX: gabapentin 300 mg capsule 300 mg PO [facility] Label Comments: 1 CAPSULE BY MOUTH (3P-6P) DX:E omeprazole 20 mg capsule,delayed release(DR/EC) 20 mg PO DAILY Label Comments: 1 CAPSULE BY MOUTH ONCECDAILY DX: / NURSE TO REORDER duloxetine 20 mg capsule,delayed release(DR/EC) 40 mg PO DAILY Label Comments: 2 CAPSULES (40MG) BYAMOUTH DAILY /NURSE TORREORDER RenaPlex-D 800 mcg-12.5 mg -2,000 unit tablet 1 tab PO MOWEFR Label Comments: TAKE 1 TABLET BY MOUTH EVERY DAY (ON DIALYSIS DAYS, TAKE AFTER DIALYSIS TREATMENT) atenolol 50 mg tablet 50 mg PO DAILY dextromethorphan polistirex [Robitussin ER] 30 mg/5 mL suspension,extended rel 12 hr 10 ml PO Q12H PRN (Reason: cough) Qty: 89 0RF albuterol sulfate 2.5 mg /3 mL (0.083 %) Solution For Nebulization 2.5 mg inhalation Q2H PRN PRN (Reason: SOB/Wheezing) 30 Days Qty: 90 0RF montelukast [Singulair] 10 mg Tablet 10 mg PO QHS docusate sodium 100 mg Tablet 200 mg PO BID PRN PRN (Reason: constipation) lactulose 10 gram/15 mL Solution 30 ml PO QHS guaifenesin [Mucinex] 600 mg Tablet Extended Release 12hr 400 mg PO TID PRN PRN (Reason: Congestion) polyethylene glycol 3350 [Miralax] 17 gram/dose powder 17 g PO DAILY Qty: 119 0RF Discontinued midodrine 10 mg tablet 10 mg PO MOWEFR Label Comments: 1 TABLET BY MOUTH EVERY-W- AT 8AM DX: oxycodone 10 mg tablet 10 mg PO BID ipratropium-albuterol 18-103 mcg/actuation Aerosol 1 spray INHALATION BID PRN (Reason: sob) prednisone 20 mg tablet 40 mg PO DAILY Qty: 10 0RF No Action oxycodone 10 mg Tablet 10 mg PO BID PRN (Reason: Pain) Referrals / Follow Up: Nehemiah Colmenares MD [Primary Care Provider] - Disposition Disposition (needs filled in before D/C Order can be placed): Care Home Facility (1) HTN (hypertension) Qualifiers: Hypertension type: essential hypertension Qualified Code(s): I10 - Essential (primary) hypertension (2) Diabetes mellitus, type II Qualifiers: Diabetes mellitus intermediate frame tender insulin use: without intermediate frame tender use Chronic kidney disease stage: on chronic dialysis (3) Chronic pain Qualifiers: Chronic pain type: other chronic pain Qualified Code(s): G89.29 - Other chronic pain
--- NOTE | 2021-12-21 11:31 | DS.PCM_ITS ---
Providers Date of Admission: 12/18/21 Date of Discharge: 12/21/21 Primary Care Physician: Dr. Nehemiah Colmenares MD Consultations 12/18/21 13:44 Consult: Nephrology Routine Consulting Provider: Brittani Byrne Reason for Consult: fluid overload with ESRD EMERGENT Consult: No MD Notified: Yes Date Notified: 12/18/21 Time Notified: 13:33 Method of Notification: Text Reason For Visit: FLUID OVERLOAD Diagnosis Discharge Diagnosis (1) ESRD (end stage renal disease): Status: Chronic Code(s): N18.6 - End stage renal disease (2) Acute and chronic respiratory failure with hypoxia: Status: Resolved Code(s): J96.21 - Acute and chronic respiratory failure with hypoxia (3) COPD exacerbation: Status: Resolved Code(s): J44.1 - Chronic obstructive pulmonary disease with (acute) exacerbation (4) Hyperkalemia: Status: Resolved Code(s): E87.5 - Hyperkalemia (5) AF (paroxysmal atrial fibrillation): Status: Chronic Code(s): I48.0 - Paroxysmal atrial fibrillation (6) HTN (hypertension): Status: Chronic Code(s): I10 - Essential (primary) hypertension Qualifiers: Hypertension type: essential hypertension Qualified Code(s): I10 - Essential (primary) hypertension (7) Diabetes mellitus, type II: Status: Chronic Code(s): E11.9 - Type 2 diabetes mellitus without complications Qualifiers: Chronic kidney disease stage: on chronic dialysis Diabetes mellitus senior living insulin use: without long distance billing operator use (8) Chronic pain: Status: Chronic Code(s): G89.29 - Other chronic pain Qualifiers: Chronic pain type: other chronic pain Qualified Code(s): G89.29 - Other chronic pain Plan 1. Fluid overload secondary to abbreviated dialysis session #2 exacerbation of COPD #3 paroxysmal atrial fibrillation #4 chronic depression #5 essential hypertension Medications at Discharge Home Medications hydralazine 100 mg tablet 100 mg PO TID HTN 03/31/20 amlodipine 10 mg tablet 10 mg PO DAILY BP 11/30/20 calcium acetate(phosphat bind) 667 mg capsule 1,334 mg PO TID health maintenance 11/30/20 apixaban 2.5 mg tablet (Eliquis) 2.5 mg PO BID anticoagulant 01/08/21 mirtazapine 45 mg tablet 45 mg PO QHS health maintenance 01/08/21 dicyclomine 20 mg tablet 20 mg PO TID health maintenance 02/26/21 duloxetine 20 mg capsule,delayed release 40 mg PO DAILY DEPRESSION 10/05/21 gabapentin 300 mg capsule 300 mg PO SUTUTHSA NERVE PAIN 10/05/21 gabapentin 600 mg tablet 600 mg PO MOWEFR NERVE PAIN 10/05/21 omeprazole 20 mg capsule,delayed release 20 mg PO DAILY GERD 10/05/21 vit B,C-folic ac 800 mcg-zinc 12.5 mg-selen-D3 2,000 unit-vit E tablet (RenaPlex-D) 1 tab PO MOWEFR DIALYSIS 10/05/21 albuterol sulfate 2.5 mg (3 mL) inhalation Q2H PRN PRN SOB/Wheezing 30 days #90 mL 10/08/21 dextromethorphan polistirex 30 mg/5 mL oral susp ext.release 12hr (Robitussin ER) 10 ml PO Q12H PRN cough #89 mL 10/08/21 docusate sodium 100 mg tablet 200 mg PO BID PRN PRN constipation 10/25/21 guaifenesin 600 mg tablet, extended release 12 hr (Mucinex) 400 mg PO TID PRN PRN Congestion 10/25/21 lactulose 10 gram/15 mL oral solution 30 ml PO QHS 10/25/21 montelukast 10 mg tablet (Singulair) 10 mg PO QHS 10/25/21 oxycodone 10 mg tablet 10 mg PO BID PRN Pain 10/25/21 polyethylene glycol 3350 17 gram/dose oral powder (Miralax) 17 g PO DAILY #119 grams 12/13/21 carvedilol 25 mg tablet 25 mg PO BID #0 tabs 12/21/21 ipratropium 0.5 mg-albuterol 3 mg (2.5 mg base)/3 mL nebulization soln 3 ml inhalation 4X/DAY #0 mL 12/21/21 oxycodone 5 mg tablet 10 mg PO BID 5 days #20 tabs 12/21/21 prednisone 20 mg tablet 20 mg PO BIDCM #0 tabs 12/21/21 Hospital Course Operations None Procedures Dialysis Summary of Care Provided Minutes Spent on Discharge: 32 Hospital Course: EmergedThis 71-year-old black female see room at [facility] with complaint of shortness of breath. Patient is a dialysis patient and receives dialysis on Wednesdays and Fridays. On Sunday, the patient's dialysis s ession was cut short 2 hours because of severe muscle cramping. Patient came to the emergency room for evaluation, work-up in the emergency room included labs which revealed elevated beta natruretic peptide of 4224, potassium was elevated at 5.6, creatinine was 6.19, and sodium was 138. Patient's CBC was remarkable for hemoglobin of 10.1. Chest x-ray was obtained-it showed small bilateral pleural effusions with bibasilar atelectasis. Patient was placed in observation status for fluid overload secondary to abbreviated dialysis and exacerbation of COPD. Patient was placed on IV Solu-Medrol, she was seen in consultation by nephrology and underwent dialysis. On 12/21/2021, patient was seen and examined: On examination she appeared in good health and spirits, she does not appear to be in any distress. Vital signs as documented. Skin warm and dry and without overt rashes. Neck without JVD, thyroid appears normal, trachea is midline, neck is supple. Lungs clear, normal air movement was noted. Heart exam notable for regular rhythm, normal sounds and absence of murmurs, rubs or gallops. Abdomen unremarkable and without evidence of organomegaly, masses, or abdominal aortic enlargement, bowel sounds are present in all 4 quadrants, no abdominal tenderness was noted. Extremities nonedematous, no cyanosis was noted, no clubbing was noted. Neuro: Cranial nerves II through XII are grossly intact, no focal motor deficits were noted, sensation to light touch and pinprick is intact, motor exam 5/5 throughout. Psych: Patient is alert and oriented x3, she does not appear anxious or depre ssed, she does not appear agitated. Patient received preauthorization to return to her group home on 12/21/2021, she was discharged in stable condition. Weight / BMI Weight Weight: 79 kg Body Mass Index (BMI) 26.0 ABG / Lab / Microbiology Data Result Diagrams: 12/19/21 06:07 12/20/21 06:20 Laboratory: Laboratory Results - last 24 hr 12/20/21 11:11: POC Glucose 220 H 12/20/21 17:03: POC Glucose 181 H 12/20/21 21:41: POC Glucose 194 H 12/21/21 06:25: POC Glucose 99 Microbiology: Microbiology 12/21/21 10:10 Nasal Secretion SARS-CoV-2 Antigen (Rapid) - Final 12/18/21 10:28 Nasal Secretion SARS-CoV-2 Antigen (Rapid) - Final Meaningful Use Info Meaningful Use Diagnoses (Choose all that apply): None applicable Discharge Plan Admission Admit Date/Time: 12/18/21 13:13 Primary Reason for Your Visit: fluid overload, exac of COPD Attending Provider: Shar Wakefield Primary Care Provider: Nehemiah Colmenares Consulting Providers: Brittani Byrne ; Malu Smith Discharge Orders/Prescriptions Prescriptions: New carvedilol 25 mg Tablet 25 mg PO BID Qty: 0 0RF ipratropium-albuterol 0.5 mg-3 mg(2.5 mg base)/3 mL Solution For Nebulization 3 ml inhalation 4X/DAY Qty: 0 0RF prednisone 20 mg Tablet 20 mg PO BIDCM Qty: 0 0RF Rx Instructions: for 3 days, then stop oxycodone 5 mg Tablet 10 mg PO BID 5 Days Qty: 20 0RF Continued hydralazine 100 MG tablet 100 mg PO TID amlodipine 10 mg Tablet 10 mg PO DAILY calcium acetate(phosphat bind) 667 mg Capsule 1,334 mg PO TID mirtazapine 45 mg Tablet 45 mg PO QHS Eliquis 2.5 mg Tablet 2.5 mg PO BID dicyclomine 20 mg tablet 20 mg PO TID Label Comments: Take 1 tablet by mouth three times daily before meals. gabapentin 600 mg tablet 600 mg PO MOWEFR Label Comments: 1 TABLET BY MOUTH (3P-6P AFTER DIALYSIS) DX: gabapentin 300 mg capsule 300 mg PO SUTUTHSA Label Comments: 1 CAPSULE BY MOUTH (3P-6P) DX:E omeprazole 20 mg capsule,delayed release(DR/EC) 20 mg PO DAILY Label Comments: 1 CAPSULE BY MOUTH ONCECDAILY DX: / NURSE TO REORDER duloxetine 20 mg capsule,delayed release(DR/EC) 40 mg PO DAILY Label Comments: 2 CAPSULES (40MG) BYAMOUTH DAILY /NURSE TORREORDER RenaPlex-D 800 mcg-12.5 mg -2,000 unit tablet 1 tab PO MOWEFR Label Comments: TAKE 1 TABLET BY MOUTH EVERY DAY (ON DIALYSIS DAYS, TAKE AFTER DIALYSIS TREATMENT) dextromethorphan polistirex [Robitussin ER] 30 mg/5 mL suspension,extended rel 12 hr 10 ml PO Q12H PRN (Reason: cough) Qty: 89 0RF albuterol sulfate 2.5 mg /3 mL (0.083 %) Solution For Nebulization 2.5 mg inhalation Q2H PRN PRN (Reason: SOB/Wheezing) 30 Days Qty: 90 0RF montelukast [Singulair] 10 mg Tablet 10 mg PO QHS docusate sodium 100 mg Tablet 200 mg PO BID PRN PRN (Reason: constipation) lactulose 10 gram/15 mL Solution 30 ml PO QHS guaifenesin [Mucinex] 600 mg Tablet Extended Release 12hr 400 mg PO TID PRN PRN (Reason: Congestion) polyethylene glycol 3350 [Miralax] 17 gram/dose powder 17 g PO DAILY Qty: 119 0RF Discontinued midodrine 10 mg tablet 10 mg PO MOWEFR Label Comments: 1 TABLET BY MOUTH EVERYSM-W- AT 8AM DX: oxycodone 10 mg tablet 10 mg PO BID atenolol 50 mg tablet 50 mg PO DAILY ipratropium-albuterol 18-103 mcg/actuation Aerosol 1 spray INHALATION BID PRN (Reason: sob) prednisone 20 mg tablet 40 mg PO DAILY Qty: 10 0RF No Action oxycodone 10 mg Tablet 10 mg PO BID PRN (Reason: Pain) Referrals / Follow Up: Nehemiah Colmenares MD [Primary Care Provider] - Disposition Disposition (needs filled in before D/C Order can be placed): Assisted Facility Charges/Coding Visit Charges OBSV E&M: 81964 Observation care discharge
[2021-12-21 11:56] LABS: Bedside Glucose 164 mg/dL (74-106)
--- NOTE | 2021-12-21 12:05 | CASEMGMT ---
Discharge Clearance Coordinator Amanda D/c planning assiant let jed away that we are contracted with [facility]. Jed told me to call [facility] and tell them to check portal to be able to greens picker trip. Amanda talked with Faustino at [facility] and faustino took all patients information and was waiting for it to come on portal so patient could be picked up at 2:00pm Amanda Daly Discharge Clearance Coordinator
--- NOTE | 2021-12-21 12:10 | CASEMGMT ---
Discharge Motor Vehicle Parts Interpreter Samuel called from [facility]. Patient still has not showed up in portal. Samuel was going to call [employer] himself to check on trip. Amanda Daly Discharge Motor Vehicle Parts Interpreter
--- NOTE | 2021-12-21 12:15 | CASEMGMT ---
Addendum entered by Amanda Daly 12/21/21 13:48: [facility] is no longer taking patient. The transportation got picked up my [employer]. Addendum entered by Amanda Daly 12/21/21 12:37: Amanda Lopez/crystal Punchboard Stuffer emailed [place] and called to make sure that [place] is aware of pharmacy picking technician time and made sure [facility] received patients orders. Original Note: Discharge Sap Bpc Developer Called [facility] to setup transportation to go back to [place]. Contacted Samuel at [facility] to pharmacy picking technician patients trip. supervisor logging time for patient is 2:00. Amanda Lopez/Crystal Punchboard Stuffer will fax over D/c orders and notify RN and patient of pharmacy picking technician time. Amanda Daly Discharge Sap Bpc Developer
--- NOTE | 2021-12-21 12:25 | PHA.DC.MR ---
Pharmacy Service has performed discharge medication reconciliation for this patient. The patient's discharge medication list was reviewed for discrepancies and discrepancies were resolved. Spoke to Dr. Wakefield, atenolol continued for discharge and carvedilol also started. He will D/C atenolol and sign new discharge medication list. Discharge family services assistant made aware of new medication list. Home Medications hydralazine 100 mg tablet 100 mg PO TID HTN 03/31/20 amlodipine 10 mg tablet 10 mg PO DAILY BP 11/30/20 calcium acetate(phosphat bind) 667 mg capsule 1,334 mg PO TID health maintenance 11/30/20 apixaban 2.5 mg tablet (Eliquis) 2.5 mg PO BID anticoagulant 01/08/21 mirtazapine 45 mg tablet 45 mg PO QHS health maintenance 01/08/21 dicyclomine 20 mg tablet 20 mg PO TID health maintenance 02/26/21 duloxetine 20 mg capsule,delayed release 40 mg PO DAILY DEPRESSION 10/05/21 gabapentin 300 mg capsule 300 mg PO SUTUTHSA NERVE PAIN 10/05/21 gabapentin 600 mg tablet 600 mg PO MOWEFR NERVE PAIN 10/05/21 omeprazole 20 mg capsule,delayed release 20 mg PO DAILY GERD 10/05/21 vit B,C-folic ac 800 mcg-zinc 12.5 mg-selen-D3 2,000 unit-vit E tablet (RenaPlex-D) 1 tab PO MOWEFR DIALYSIS 10/05/21 albuterol sulfate 2.5 mg (3 mL) inhalation Q2H PRN PRN SOB/Wheezing 30 days #90 mL 10/08/21 dextromethorphan polistirex 30 mg/5 mL oral susp ext.release 12hr (Robitussin ER) 10 ml PO Q12H PRN cough #89 mL 10/08/21 docusate sodium 100 mg tablet 200 mg PO BID PRN PRN constipation 10/25/21 guaifenesin 600 mg tablet, extended release 12 hr (Mucinex) 400 mg PO TID PRN PRN Congestion 10/25/21 lactulose 10 gram/15 mL oral solution 30 ml PO QHS 10/25/21 montelukast 10 mg tablet (Singulair) 10 mg PO QHS 10/25/21 oxycodone 10 mg tablet 10 mg PO BID PRN Pain 10/25/21 polyethylene glycol 3350 17 gram/dose oral powder (Miralax) 17 g PO DAILY #119 grams 12/13/21 carvedilol 25 mg tablet 25 mg PO BID #0 tabs 12/21/21 ipratropium 0.5 mg-albuterol 3 mg (2.5 mg base)/3 mL nebulization soln 3 ml inhalation 4X/DAY #0 mL 12/21/21 oxycodone 5 mg tablet 10 mg PO BID 5 days #20 tabs 12/21/21 prednisone 20 mg tablet 20 mg PO BIDCM #0 tabs 12/21/21
[2021-12-21] MEDS: Insulin Lispro 100 UNIT/ML INSULN.PEN SC ×2 (12:31→16:43)
[2021-12-21] MEDS: Calcium Acetate 667 MG Capsule 1334 MG PO ×2 (12:31→17:29)
[2021-12-21] MEDS: Pantoprazole Sodium 20 MG Tablet PO (12:32)
[2021-12-21] MEDS: Folic Acid/Vitamin B Comp W-C 1 Capsule 1 CAP PO (12:32)
[2021-12-21] MEDS: DULoxetine Hcl 20 MG Capsule 40 MG PO (12:32)
[2021-12-21] MEDS: predniSONE 20 MG Tablet PO ×2 (12:33→17:29)
[2021-12-21] MEDS: Polyethylene Glycol 3350 17 GM PACKET PO (12:33)
[2021-12-21] MEDS: amLODIPine 10 MG Tablet PO (12:34)
[2021-12-21] MEDS: Heparin 10,000 UNITS/10 ML Vial 3200 UNITS IV (12:35)
[2021-12-21] MEDS: Carvedilol 25 MG Tablet PO (12:41)
--- NOTE | 2021-12-21 12:45 | DIALYSIS ---
HD x 3.5 hour complete. Tolerated tx well. UF of 3500ml. Used right chest wall dialysis catheter. Lumens closed with heparin per fill volume. Caps placed. Dressing is dry and intact. Report was given to REGGIE Akins.
--- NOTE | 2021-12-21 13:00 | CASEMGMT ---
Discharge Office Machines Teacher Samuel called back from [facility]. Was told by mariana that another company has picked up the trip. Samuel stated to Amanda that [facility] could still take her but, then they would have to bill the patient since someone else already picked up the trip. Amanda d/c medical assistant prn canceled trip with [facility] because it was not right for the patient to be billed Amanda Daly Discharge Office Machines Teacher
[2021-12-21] MEDS: APIXABAN 2.5 MG TABLET PO (13:44)
--- NOTE | 2021-12-21 15:45 | CASEMGMT ---
Discharge Groundwater Programs Director Transport for patient has not shown up yet. Called mariana and mariana reached out to the company and said the ETA would be 3:00pm Amanda Daly Discharge Groundwater Programs Director
--- NOTE | 2021-12-21 15:47 | CASEMGMT ---
Addendum entered by Amanda Daly 12/21/21 17:22: [facility] called back. Trip got bumped. New crew coming on. Patient will be the first trip. Crew should be here by 6:30pm Addendum entered by Amanda Daly 12/21/21 17:17: U just called Amanda Rock. [facility] is on the line because [employer] sent [facility] the trip with the wheel chair after they said level of care needed to be changed and was confused because we set up with stretcher. [facility] will be here in 20-30 minutes to get patient. Floor has been notified. Amanda Daly Discharge Dock Worker Original Note: Discharge Dock Worker Transport company showed up to facility for patient. Company did not have a wheel chair for patient or even O2. Which were both stated when setting up transportation through [facility]. Amanda rock called [facility] and let them know what is going on and they stated that there must of been a miscommunication. [facility] then resent a trip and I have a new conformation code of [id number]. Amanda called Faustino at [facility] to see if faustino could see patient in the portal. Faustino asked Amanda to see if she could ask [facility] to call [facility]. Amanda is currently speaking with Misael on the phone. Misael is not talking with [employer] [facility] [place] to try and get this trip assigned. Misael will not take [facility] phone number from Amanda as Misael states she can get in trouble. MARIA GUADALUPE San also is on the other line with [facility] trying to get a ride for the patient. Misael came back on the phone and states now that since she needs oxygen they can't accommodate that. Amanda now needs to call [facility] for a stretcher. MARIA GUADALUPE San is going to set up transportation on the portal. Amanda Daly Discharge Dock Worker
[2021-12-21 16:46] LABS: Bedside Glucose 209 mg/dL (74-106)
--- NOTE | 2021-12-21 17:08 | CASEMGMT ---
Social Work Per Amanda, discharge marketing planning manager. [facility] is now stating pt will need a cot transport as they cannot accomodate a wheelchair van transport if a pt requires oxygen. This SW arranged for [facility] to pick pt up via Cot at 1800 through the online transportation site. Mable, pt nurse notified and will update pt. MITRA Ceja
--- NOTE | 2021-12-22 14:35 | CASEMGMT ---
Transportation follow-up: This Integrated CM Mgr contacted [facility] regarding concerns related to arrangement of transportation on 12/21. Spoke with Misael who entered the delineation of events into their system as a complaint with complaint ID#[id number]. Misael states the complaint will be sent to their Senior Resident Care Director team for review. This parts sales manager's phone number provided for further follow-up. Yovanny Shankar RN Mgr Integrated CM.
== END 2021-12-21 11:16 | disposition skilled nursing facility (03) ==
LOC: ED 10:09 → PCU 13:24
PROVIDERS: Nurse Practitioner Adult Health; Admitting Provider Student in an Organized Health Care Education/Training Program; Emergency Provider Emergency Medicine; PCP Family Medicine; Visit Provider Internal Medicine
DX: I13.2 Hypertensive heart and chronic kidney disease with heart failure and with stage 5 chronic kidney disease, or end stage renal disease (principal); Z99.2 Dependence on renal dialysis; J44.1 Chronic obstructive pulmonary disease with (acute) exacerbation; I50.9 Heart failure, unspecified; I50.20 Unspecified systolic (congestive) heart failure; E11.22 Type 2 diabetes mellitus with diabetic chronic kidney disease; N18.6 End stage renal disease; J96.21 Acute and chronic respiratory failure with hypoxia; I48.0 Paroxysmal atrial fibrillation; Z79.01 Long term (current) use of anticoagulants; E87.5 Hyperkalemia; E78.5 Hyperlipidemia, unspecified; G89.29 Other chronic pain; D63.1 Anemia in chronic kidney disease; F41.8 Other specified anxiety disorders; K21.9 Gastro-esophageal reflux disease without esophagitis; I25.2 Old myocardial infarction; Z79.899 Other long term (current) drug therapy; Z99.81 Dependence on supplemental oxygen; F17.210 Nicotine dependence, cigarettes, uncomplicated; Z86.718 Personal history of other venous thrombosis and embolism
CPT/HCPCS: 36415; 71045; 80048; 80069; 82962; 83735; 83880; 84484; 85025; 85610; 87426; 87811; 90937; 93005; 94640; 96374; 96375; 96376; 97162; 97166; 97530; 97802; 99218; 99251; 99285; 99406; J7030; A4216; G0257; G0378; G0463; J1940

== ENCOUNTER 2022-01-09 15:23 | Emergency (ER) | payer MEDICARE, MEDICAID, SELFPAY ==
[2022-01-09] VITALS (7 sets, daily range): BP systolic 137–176; BP diastolic 66–86; PULSE 62–89; RESP 16–28; TEMP 36.3; O2SAT 99–100; BMI 26.2
--- NOTE | 2022-01-09 15:31 | EKG12_ITS ---
Test Reason : cp Blood Pressure : / mmHG Vent. Rate : 088 BPM Atrial Rate : 000 BPM P-R Int : 000 ms QRS Dur : 072 ms QT Int : 372 ms P-R-T Axes : 000 023 266 degrees QTc Int : 450 ms Atrial fibrillation with premature ventricular or aberrantly conducted complexes Nonspecific ST and T wave abnormality Abnormal ECG Confirmed by BRANDON LEMON, MACIE ([id number]), pictures editor BIRDIE TORRES ([id number]) on 01/11/2022 10:42:53 AM Referred By: Confirmed By:MACIE TAYLOR MD
--- NOTE | 2022-01-09 15:39 | EKG12_ITS ---
Test Reason : cp Blood Pressure : / mmHG Vent. Rate : 068 BPM Atrial Rate : 000 BPM P-R Int : 000 ms QRS Dur : 072 ms QT Int : 420 ms P-R-T Axes : 000 016 -58 degrees QTc Int : 446 ms Atrial fibrillation with premature ventricular or aberrantly conducted complexes and with ventricular escape complexes Nonspecific ST and T wave abnormality Abnormal ECG Confirmed by BRANDON LEMON, MACIE ([id number]), technical writer and editor BIRDIE TORRES ([id number]) on 01/11/2022 10:41:08 AM Referred By: Confirmed By:MACIE TAYLOR MD
[2022-01-09 15:54] LABS: Absolute Lymphocyte Count 1.44 X10^3/uL (0.83-4.51); Absolute Neutrophil Count 6.4 X10^3/uL (2.0-7.7); Basophil# 0.02 X10^3/uL; Basophil% 0.2 % (0-1); Eosinophil# 0.02 X10^3/uL; Eosinophils% 0.2 % (0-5); Hematocrit 35.6 % (37-47); Hemoglobin 10.4 g/dL (12.0-15.0); Lymphocyte # 1.44 X10^3/ul (0.83-4.51); Mean Corp Hgb Conc 29.2 g/dL (32-36); Mean Corpuscular Volume 102.6 fL (81-99); Mean Platelet Vol. 9.8 fl (6.2-12.0); Monocyte# 0.56 X10^3/uL; Monocyte% 6.6 % (0-10); NRBC Flagged by Analyzer 0.5 % (0-5); Neutrophil # 6.38 X10^3/uL (2.7-7.7); Neutrophil % 75.6 % (47-70); POSITIVE MORPHOLOGY YES; Platelet Count 202 K/mm3 (150-450); RBC Distribution Width CV 17.7 % (11.6-14.6); RBC Distribution Width SD 65.6 fl (35.1-43.9); Red Blood Count 3.47 M/mm3 (4.2-5.4); White Blood Count 8.5 K/mm3 (4.4-11.0)
[2022-01-09 15:56] LABS: Differential Indicated SCAN CRITERIA MET
--- NOTE | 2022-01-09 16:01 | RAD_ITS ---
INDICATION: chest pain EXAMINATION/TECHNIQUE: X-RAY - XR Chest 1 View COMPARISON: 12/18/2021 FINDINGS: Central pulmonary venous congestion. The cardiomediastinal silhouette is stable. Right-sided hemodialysis catheter. Stable small bilateral pleural effusions. No pneumothorax. No acute osseous abnormalities. RAD/Chest 1 View (Portable) IMPRESSION: Stable small bilateral pleural effusions. Electronically Signed: Cahrbel Byrne MD at 16:17 EDT ,
[2022-01-09 16:19] LABS: Anion Gap 3 (5-15); BUN 17 mg/dL (7-18); BUN/Creat Ratio 5.8 RATIO (10-20); Calcium,Total 8.3 mg/dL (8.5-10.1); Chloride 101 mmol/L (98-107); Creatinine, Serum 2.94 mg/dL (0.55-1.02); EST Glomerular Filtration Rate 17 mL/min (>60); Est Glom Filt Rate - Afr Amer 20 mL/min (>60); Estimated Creatinine Clearance 18.87 ml/min; Glucose 88 mg/dL (74-106); Potassium 4.5 mmol/L (3.5-5.1); Sodium Level 141 mmol/L (136-145); Troponin-I HS (w/2H Reflex) 32 pg/mL (3.0-54.0)
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
[2022-01-09] MEDS: Morphine 4 MG/ML Syringe IV (16:55)
[2022-01-09] MEDS: MethylPREDNISolone 125 MG/2 ML Vial IV (16:56)
[2022-01-09] MEDS: Ondansetron 4 MG/2 ML Vial IV (16:56)
[2022-01-09] MEDS: Ipratropium/Albuterol Sulfate 3 ML AMPUL.NEB INHALATION (17:09)
[2022-01-09 17:52] LABS: Reflex Troponin-HS? (from REC) Y
[2022-01-09 18:46] LABS: Troponin-I HS 32 pg/mL (3.0-54.0)
== END 2022-01-09 21:46 | disposition home or self-care (01) ==
PROVIDERS: Emergency Provider Student in an Organized Health Care Education/Training Program; PCP Nurse Practitioner Adult Health; Visit Provider Student in an Organized Health Care Education/Training Program
DX: J44.1 Chronic obstructive pulmonary disease with (acute) exacerbation (principal); I13.2 Hypertensive heart and chronic kidney disease with heart failure and with stage 5 chronic kidney disease, or end stage renal disease; Z99.2 Dependence on renal dialysis; I50.22 Chronic systolic (congestive) heart failure; E11.22 Type 2 diabetes mellitus with diabetic chronic kidney disease; N18.6 End stage renal disease; I48.91 Unspecified atrial fibrillation; E78.5 Hyperlipidemia, unspecified; E78.00 Pure hypercholesterolemia, unspecified; K21.9 Gastro-esophageal reflux disease without esophagitis; M19.90 Unspecified osteoarthritis, unspecified site; F41.9 Anxiety disorder, unspecified; F32.A Depression, unspecified; Z79.899 Other long term (current) drug therapy; Z79.01 Long term (current) use of anticoagulants
CPT/HCPCS: 71045; 80048; 84484; 85025; 93005; 94640; 96374; 96375; 99285; A4216; J2405

== ENCOUNTER 2022-02-23 07:48 | Emergency (ER) | payer MEDICARE, MEDICAID, SELFPAY ==
[2022-02-23 07:50] VITALS: BP 154/69; PULSE 67; RESP 22; TEMP 36.3; O2SAT 100; BMI 25.2
[2022-02-23 07:54] VITALS: O2SAT 100
--- NOTE | 2022-02-23 08:10 | EKG12_ITS ---
Test Reason : SOB Blood Pressure : / mmHG Vent. Rate : 063 BPM Atrial Rate : 063 BPM P-R Int : 166 ms QRS Dur : 080 ms QT Int : 448 ms P-R-T Axes : 077 013 036 degrees QTc Int : 458 ms Normal sinus rhythm Nonspecific T wave abnormality Abnormal ECG Confirmed by BAHMAN LEMON, EDWINA ([id number]), legal editor BIRDIE TORRES ([id number]) on 02/27/2022 9:27:09 AM Referred By: RIOS Confirmed By:SUAD RUGGIERO MD
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
[2022-02-23] MEDS: Ipratropium/Albuterol Sulfate 3 ML AMPUL.NEB INHALATION (08:15)
[2022-02-23 08:20] VITALS: PULSE 69; RESP 21
[2022-02-23] MEDS: MethylPREDNISolone 125 MG/2 ML Vial IV (08:33)
--- NOTE | 2022-02-23 08:45 | RAD_ITS ---
STUDY: X-RAY CHEST REASON FOR EXAM: Female, 72 years old. Dyspnea TECHNIQUE: Single AP portable view of the chest. COMPARISON: None. FINDINGS: A right-sided double-lumen catheter is seen with the tip at the junction of the superior vena cava and right atrium. EKG electrodes are seen. There is a small right pleural effusion with right basilar infiltrate. Mild increased markings at the left lung base. Blunting of both constraint angles. There is moderate cardiac enlargement. Normal mediastinum and farhan. Normal visualized pulmonary arteries. Normal visualized aortic arch and descending thoracic aorta. Normal visualized thoracic spine. Normal visualized ribs, clavicles, and shoulders. There is no demonstrated abnormality of the visualized soft tissue structures of the upper abdomen. RAD/Chest 1 View (Portable) IMPRESSION: Patchy right lower lobe infiltrate with small right pleural effusion. Mild increased markings at the left lung base. Electronically Signed: Lopez Barraza MD at 9:12 EDT ,
[2022-02-23 08:53] LABS: Absolute Lymphocyte Count 1.31 X10^3/uL (0.83-4.51); Absolute Neutrophil Count 5.5 X10^3/uL (2.0-7.7); Basophil# 0.03 X10^3/uL; Basophil% 0.4 % (0-1); Eosinophil# 0.11 X10^3/uL; Eosinophils% 1.4 % (0-5); Hematocrit 35.8 % (37-47); Hemoglobin 10.4 g/dL (12.0-15.0); Lymphocyte # 1.31 X10^3/ul (0.83-4.51); Lymphocyte % 17.2 % (19-41); Mean Corp Hgb Conc 29.1 g/dL (32-36); Mean Corpuscular Volume 99.7 fL (81-99); Mean Platelet Vol. 9.4 fl (6.2-12.0); Monocyte# 0.61 X10^3/uL; NRBC Flagged by Analyzer 0.9 % (0-5); Neutrophil # 5.49 X10^3/uL (2.7-7.7); Neutrophil % 72.3 % (47-70); Platelet Count 191 K/mm3 (150-450); RBC Distribution Width CV 17.5 % (11.6-14.6); RBC Distribution Width SD 63.3 fl (35.1-43.9); Red Blood Count 3.59 M/mm3 (4.2-5.4); White Blood Count 7.6 K/mm3 (4.4-11.0)
[2022-02-23 09:06] LABS: Anion Gap 3 (5-15); BUN 21 mg/dL (7-18); BUN/Creat Ratio 4.6 RATIO (10-20); Calcium,Total 8.3 mg/dL (8.5-10.1); Chloride 102 mmol/L (98-107); Creatinine, Serum 4.58 mg/dL (0.55-1.02); EST Glomerular Filtration Rate 10 mL/min (>60); Est Glom Filt Rate - Afr Amer 12 mL/min (>60); Estimated Creatinine Clearance 11.94 ml/min; Glucose 85 mg/dL (74-106); Potassium 4.2 mmol/L (3.5-5.1); Sodium Level 140 mmol/L (136-145); Troponin-I HS 27 pg/mL (3.0-54.0)
[2022-02-23 10:24] VITALS: BP 159/69; PULSE 64; RESP 19; O2SAT 100
[2022-02-23 10:39] VITALS: BP 115/69; PULSE 66; RESP 21; O2SAT 100
== END 2022-02-23 10:49 | disposition home or self-care (01) ==
PROVIDERS: Emergency Provider Student in an Organized Health Care Education/Training Program; PCP Nurse Practitioner Adult Health; Visit Provider Student in an Organized Health Care Education/Training Program
DX: J44.1 Chronic obstructive pulmonary disease with (acute) exacerbation (principal); I13.2 Hypertensive heart and chronic kidney disease with heart failure and with stage 5 chronic kidney disease, or end stage renal disease; Z99.2 Dependence on renal dialysis; I50.22 Chronic systolic (congestive) heart failure; N18.6 End stage renal disease; I48.0 Paroxysmal atrial fibrillation; E78.00 Pure hypercholesterolemia, unspecified; I25.2 Old myocardial infarction; F17.210 Nicotine dependence, cigarettes, uncomplicated; Z79.01 Long term (current) use of anticoagulants; Z79.899 Other long term (current) drug therapy; Z86.73 Personal history of transient ischemic attack (TIA), and cerebral infarction without residual deficits
CPT/HCPCS: 71045; 80048; 84484; 85025; 93005; 94640; 96374; 99285; A4216

== ENCOUNTER 2022-03-23 09:42 | Inpatient (IN) | payer MEDICARE, MEDICAID, SELFPAY ==
[2022-03-23] VITALS (18 sets, daily range): BP systolic 144–171; BP diastolic 67–92; PULSE 64–113; RESP 10–31; TEMP 35.9–37.3; O2SAT 98–100; BMI 26.6; BMI 22.6
--- NOTE | 2022-03-23 09:59 | EKG12_ITS ---
Test Reason : SHORT OF BREATH Blood Pressure : / mmHG Vent. Rate : 065 BPM Atrial Rate : 065 BPM P-R Int : 154 ms QRS Dur : 080 ms QT Int : 448 ms P-R-T Axes : 081 034 098 degrees QTc Int : 465 ms Normal sinus rhythm Nonspecific T wave abnormality Abnormal ECG Confirmed by TERE LEMON, JAN ([id number]), international editorial producer BIRDIE TORRES ([id number]) on 03/27/2022 9:42:45 AM Referred By: ZIA Confirmed By:JAN CARRANZA MD
--- NOTE | 2022-03-23 10:00 | RAD_ITS ---
STUDY: X-RAY CHEST REASON FOR EXAM: Female, 72 years old. Fever and cough TECHNIQUE: Single AP portable view of the chest. COMPARISON: 02/23/2022 FINDINGS: EKG leads overlie the chest. Stable appearance of a right dialysis catheter. Lungs are expanded, left lung remains clear, partial but not yet complete resolution appears the described airspace opacifications in the right lung base and right pleural effusion. Follow-up recommended to show complete resolution. Normal size heart. Normal mediastinum and farhan. Normal visualized pulmonary arteries. Normal visualized aortic arch and descending thoracic aorta. Normal visualized thoracic spine. Normal visualized ribs, clavicles, and shoulders. There is no demonstrated abnormality of the visualized soft tissue structures of the upper abdomen. RAD/Chest 1 View (Portable) IMPRESSION: Resolving right lower lobe infiltrate and effusion. Follow-up recommended to ensure complete resolution Electronically Signed: Sebastien Aquino MD at 10:17 EDT ,
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
[2022-03-23 10:09] LABS: Absolute Lymphocyte Count 1.35 X10^3/uL (0.83-4.51); Absolute Neutrophil Count 4.9 X10^3/uL (2.0-7.7); Basophil# 0.03 X10^3/uL; Basophil% 0.4 % (0-1); Eosinophil# 0.19 X10^3/uL; Eosinophils% 2.7 % (0-5); Hematocrit 38.7 % (37-47); Hemoglobin 11.2 g/dL (12.0-15.0); Lymphocyte # 1.35 X10^3/ul (0.83-4.51); Lymphocyte % 19.2 % (19-41); Mean Corp Hgb Conc 28.9 g/dL (32-36); Mean Corpuscular Hgb 27.7 pg (27.0-32.0); Mean Corpuscular Volume 95.6 fL (81-99); Mean Platelet Vol. 9.9 fl (6.2-12.0); Monocyte% 7.1 % (0-10); NRBC Flagged by Analyzer 0 % (0-5); Neutrophil # 4.93 X10^3/uL (2.7-7.7); Neutrophil % 70.3 % (47-70); Platelet Count 166 K/mm3 (150-450); RBC Distribution Width SD 57.1 fl (35.1-43.9); Red Blood Count 4.05 M/mm3 (4.2-5.4)
[2022-03-23] MEDS: Albuterol 2.5 MG/3 ML VIAL.NEB. INHALATION ×2 (10:11)
[2022-03-23] MEDS: Ipratropium/Albuterol Sulfate 3 ML AMPUL.NEB INHALATION ×3 (10:11→19:15)
[2022-03-23] MEDS: MethylPREDNISolone 125 MG/2 ML Vial IV (10:12)
[2022-03-23 10:27] LABS: Anion Gap 4 (5-15); BUN 23 mg/dL (7-18); BUN/Creat Ratio 4.6 RATIO (10-20); Chloride 100 mmol/L (98-107); Creatinine, Serum 4.99 mg/dL (0.55-1.02); EST Glomerular Filtration Rate 9 mL/min (>60); Est Glom Filt Rate - Afr Amer 11 mL/min (>60); Estimated Creatinine Clearance 10.96 ml/min; Glucose 101 mg/dL (74-106); Potassium 4.6 mmol/L (3.5-5.1); Sodium Level 139 mmol/L (136-145); Troponin-I HS (w/2H Reflex) 28 pg/mL (3.0-54.0)
[2022-03-23 10:40] LABS: Base Excess 6 mmol/L (-2 to +2); Bicarbonate 30.7 mmol/L (22-26); Blood Gas Specimen Type ART; FI02 30; Mode NIV; PO2 74 mmHG (75-100); SITE L Brach; SO2 94 % (95-99); Total Carbon Dioxide 32 mmol/L; pCO2 51.4 mmHg (35-45); pH 7.39 (7.35-7.45)
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
[2022-03-23 12:04] LABS: Reflex Troponin-HS? (from REC) Y
[2022-03-23] MEDS: levoFLOXacin IV 750 MG/150 ML BAG 100 MG IV (13:40)
[2022-03-23 13:43] LABS: Troponin-I HS 40 pg/mL (3.0-54.0)
--- NOTE | 2022-03-23 14:14 | CASEMGMT ---
Patient has a Healthcare Power of Molecular Modeler (HCPOA) on file at [facility]. Patients daughter Salima Springer is her HCPOA. Patient does not have a Healthcare Living Will. Evy GONZALEZ
[2022-03-23] MEDS: Gabapentin 300 MG Capsule PO (14:58)
[2022-03-23] MEDS: Calcium Acetate 667 MG Capsule 1334 MG PO ×2 (14:58→21:52)
[2022-03-23] MEDS: hydrALAZINE 50 MG Tablet 100 MG PO ×2 (14:58→21:51)
[2022-03-23] MEDS: Dicyclomine 10 MG Capsule 20 MG PO ×2 (14:58→21:51)
[2022-03-23] MEDS: oxyCODONE 5 MG Tablet 10 MG PO (14:58)
[2022-03-23] MEDS: Lactulose 20 GM/30 ML UDC PO (21:51)
[2022-03-23] MEDS: APIXABAN 2.5 MG TABLET PO (21:52)
[2022-03-23] MEDS: Carvedilol 25 MG Tablet PO (21:52)
[2022-03-23] MEDS: Mirtazapine 15 MG Tablet 45 MG PO (21:52)
[2022-03-23] MEDS: Montelukast 10 MG Tablet PO (21:53)
[2022-03-23] MEDS: 0.9% Saline Lock 10 ML Syringe IV (21:53)
[2022-03-24] VITALS (17 sets, daily range): BP systolic 156–170; BP diastolic 61–84; PULSE 60–88; RESP 18–20; TEMP 36.3–36.7; O2SAT 98–100
[2022-03-24] MEDS: 0.9% Saline Lock 10 ML Syringe IV ×3 (04:31→20:59)
[2022-03-24] MEDS: hydrALAZINE 20 MG/ML Vial 10 MG IV (04:31)
[2022-03-24 06:28] LABS: Absolute Lymphocyte Count 0.61 X10^3/uL (0.83-4.51); Absolute Neutrophil Count 7.1 X10^3/uL (2.0-7.7); Basophil# 0.01 X10^3/uL; Basophil% 0.1 % (0-1); Hematocrit 36.5 % (37-47); Lymphocyte # 0.61 X10^3/ul (0.83-4.51); Lymphocyte % 7.7 % (19-41); Mean Corp Hgb Conc 30.1 g/dL (32-36); Mean Corpuscular Hgb 28.3 pg (27.0-32.0); Mean Corpuscular Volume 93.8 fL (81-99); Mean Platelet Vol. 9.9 fl (6.2-12.0); Monocyte% 2.5 % (0-10); NRBC Flagged by Analyzer 0 % (0-5); Neutrophil # 7.11 X10^3/uL (2.7-7.7); Neutrophil % 89.2 % (47-70); Platelet Count 146 K/mm3 (150-450); RBC Distribution Width CV 15.9 % (11.6-14.6); RBC Distribution Width SD 54.6 fl (35.1-43.9); Red Blood Count 3.89 M/mm3 (4.2-5.4)
[2022-03-24] MEDS: Dicyclomine 10 MG Capsule 20 MG PO ×3 (06:46→20:59)
[2022-03-24] MEDS: Calcium Acetate 667 MG Capsule 1334 MG PO ×3 (06:46→20:59)
[2022-03-24] MEDS: hydrALAZINE 50 MG Tablet 100 MG PO ×2 (06:46→20:59)
[2022-03-24 06:51] LABS: Anion Gap 7 (5-15); BUN 45 mg/dL (7-18); BUN/Creat Ratio 7.3 RATIO (10-20); Calcium,Total 9.6 mg/dL (8.5-10.1); Chloride 102 mmol/L (98-107); EST Glomerular Filtration Rate 7 mL/min (>60); Est Glom Filt Rate - Afr Amer 9 mL/min (>60); Estimated Creatinine Clearance 8.82 ml/min; Glucose 137 mg/dL (74-106); Potassium 4.9 mmol/L (3.5-5.1); Sodium Level 138 mmol/L (136-145)
--- NOTE | 2022-03-24 07:40 | PCM.PN.BLA ---
Progress Note Pt is known to our service. She has ESRD and dialyzes on MWF schedule. Admitted for atrial fibrillation with RVR. Will arrange for dialysis today. Shan Felix MD
--- NOTE | 2022-03-24 09:45 | PN.HOSP_ITS ---
Documented by User: Chantal Barrera SALES AND SERVICE OFFICER, SALES AND SERVICE OFFICER-C 03/24/22 10:12 Subjective Subjective Patient seen and examined. Reports improvement in breathing. Denies cough, fever, chills. To undergo dialysis today. Objective Data Objective Data Vital Signs: Vital Signs Temp Pulse Resp BP Pulse Ox O2 Del Method O2 Flow Rate 98.0 F 61 18 168/61 H 98 Nasal Cannula 4 03/24/22 06:41 03/24/22 07:01 03/24/22 06:41 03/24/22 06:41 03/24/22 07:58 03/24/22 09:35 03/24/22 09:35 FiO2 30 03/23/22 19:20 Oxygen Flow Rate (L/min) 4 Oxygen Delivery Method Nasal Cannula Weight: 153 lb 7.068 oz Body Mass Index (BMI) 22.6 Intake & Output: Intake and Output for Last 24 Hours 03/22/22 03/23/22 03/24/22 23:59 23:59 23:59 Intake Total 450 / 450 Output Total 0 / 0 Balance 450 / 450 0 / 0 Lab / Micro Data Result Diagrams: 03/24/22 06:05 03/24/22 06:05 Labs: Laboratory Results - last 24 hr 03/23/22 09:55: WBC 7.0, RBC 4.05 L, Hgb 11.2 L, Hct 38.7, MCV 95.6, MCH 27.7, MCHC 28.9 L, RDW Std Deviation 57.1 H, RDW Coeff of Destiny 16.0 H, Plt Count 166, MPV 9.9, Immature Gran % (Auto) 0.300, Neut % (Auto) 70.3 H, Lymph % (Auto) 19.2, [place] % (Auto) 7.1, Eos % (Auto) 2.7, Baso % (Auto) 0.4, Absolute Neuts (auto) 4.9, Absolute Lymphs (auto) 1.35, Nucleated RBC % 0 03/23/22 09:55: Sodium 139, Potassium 4.6, Chloride 100, Carbon Dioxide 35.0 H, Anion Gap 4 L, BUN 23 H, Creatinine 4.99 H, Estim Creat Clear Calc 10.96, Est GFR (MDRD) Af Amer 11 L, Est GFR (MDRD) Non-Af 9 L, BUN/Creatinine Ratio 4.6 L, Glucose 101, Calcium 9.0, Troponin I High Sens 28 03/23/22 09:55: B-Natriuretic Peptide 3518.6 H 03/23/22 13:05: Troponin I High Sens 40 03/24/22 06:05: WBC 8.0, RBC 3.89 L, Hgb 11.0 L, Hct 36.5 L, MCV 93.8, MCH 28.3, MCHC 30.1 L, RDW Std Deviation 54.6 H, RDW Coeff of Destiny 15.9 H, Plt Count 146 L, MPV 9.9, Immature Gran % (Auto) 0.500, Neut % (Auto) 89.2 H, Lymph % (Auto) 7.7 L, [place] % (Auto) 2.5, Eos % (Auto) 0.0, Baso % (Auto) 0.1, Absolute Neuts (auto) 7.1, Absolute Lymphs (auto) 0.61 L, Nucleated RBC % 0 03/24/22 06:05: Sodium 138, Potassium 4.9, Chloride 102, Carbon Dioxide 29.0, Anion Gap 7, BUN 45 H, Creatinine 6.20 H, Estim Creat Clear Calc 8.82, Est GFR (MDRD) Af Amer 9 L, Est GFR (MDRD) Non-Af 7 L, BUN/Creatinine Ratio 7.3 L, Glucose 137 H, Calcium 9.6 ABG Data ABG results: ABG 03/23/22 10:35 Specimen Type ART Sample Site L Brach pH 7.39 Bicarbonate Actual 30.7 H Total CO2 32 Base Excess 6 H O2 Saturation 94 L O2 % 30 ABG pCO2 51.4 H ABG pO2 74 L Vent Mode NIV Radiography Diagnostic Testing: Radiology Impression Chest X-Ray 03/23/22 10:00 IMPRESSION: Resolving right lower lobe infiltrate and effusion. Follow-up recommended to ensure complete resolution Electronically Signed: Sebastien Aquino MD at 10:17 EDT , Rhythm Strip Rhythm Strip: Sinus Rhythm Rate: 65 Ectopy: None Physical Exam Const alert and oriented x3 HEENT normocephalic and moist oral mucous membranes Eyes PERRL, EOMs intact bilaterally and conjunctivae normal Neck no lymphadenopathy Resp Auscultation: crackles, wheezes and diminished lung sounds Cardio regular rate, regular rhythm and no murmurs Peripheral Pulses: pulses 2+ throughout GI normal to inspection, nondistended, normoactive bowel sounds, non-tender and non-distended Extremity normal to inspection General Extremity: edema bilateral lower extremity Skin no rashes or lesions noted Lesions: no lesions Rashes: no rashes Trauma: no lacerations or abrasions Neuro CN's II-XII intact bilaterally, no focal motor deficits, no sensory deficits noted and deep tendon reflexes 2+ bilaterally Psych mental status grossly normal and affect normal Assessment & Plan Assessment/Plan (1) Acute and chronic respiratory failure with hypoxia: (2) COPD exacerbation: PLAN: Plan 1. Acute on chronic hypoxic respiratory failure secondary to acute exacerbation of chronic COPD as well as fluid overload as a result of end-stage renal disease-initially requiring BiPAP. Continue supplemental oxygen to maintain O2 sat above 90%. Repeat home oxygen testing prior to discharge. 2. Acute exacerbation of chronic COPD-IV Solu-Medrol. Albuterol and DuoNeb aerosols. Afebrile, no leukocytosis. Chest x-ray without obvious infiltrate. 3. Fluid overload secondary to end-stage renal disease on hemodialysis-BNP 3500. Nephrology consulted. Continue dialysis as scheduled. 4. Chronic heart failure with reduced ejection fraction-echocardiogram April 2021 with EF 55%.? No longer on Lasix.? Continue dialysis. 5. Paroxysmal atrial fibrillation-on carvedilol, Eliquis. 6. Anemia of chronic disease- stable. 7. Hypertension-continue amlodipine, carvedilol, hydralazine. 8. Hyperlipidemia-not on statin. 9. Anxiety/depression-on duloxetine, mirtazapine. 10. History of CVA-Eliquis.? Not on aspirin, statin. 11.? History of type 2 diabetes mellitus-hemoglobin A1c 12/01/2020 3.8%. 12. History of DVT-on Eliquis. 13. GERD-continue PPI. 14. Tobacco dependence-encouraged cessation. DVT prophylaxis-Eliquis This patient was seen by JOE Zayas under the supervision of Dr. Smith. Time spent examining patient, reviewing data and subsequent management of care: 14 Minutes Documented by User: Dr. Malu Smith MD 03/24/22 17:07 Objective Data Lab / Micro Data Result Diagrams: 03/24/22 06:05 03/24/22 06:05 Assessment & Plan Assessment/Plan (1) Acute and chronic respiratory failure with hypoxia: (2) COPD exacerbation: Charges/Coding Addendum Addendum: Patient seen by Chantal DIAZ under my supervision Patient seen and examined. She feels much better today. She is off BIPAP, and on her baseline 4L of oxygen. She is not coughing, denies any chest pain, palpitations, dizziness, nausea, vomiting or diarrhea. REview of systems is otherwise negative. O/E: Const alert, oriented x3 and no apparent distress, frail looking General Appearance: cooperative HEENT normocephalic, head/scalp atraumatic, hearing grossly normal bilaterally and moist oral mucous membranes Eyes PERRL, EOMs intact bilaterally and conjunctivae normal Neck no lymphadenopathy, supple and no JVD Resp diminished breath sounds bibasally, mild wheezing, no crackles. On 4L of oxygen by nasal canula. Cardio regular rate, regular rhythm, S1 normal heart sound, S2 normal heart sound and no murmurs GI normal to inspection, nondistended, normoactive bowel sounds and soft to palpation GI Narrative: abdominal dressing over surgical site Extremity normal to inspection, full ROM and no clubbing, cyanosis or edema, dialysis catheter in right chest Skin no rashes or lesions noted Neuro oriented x3, CN's II-XII intact bilaterally and moves all extremities Sensorium / Orientation: awake and alert Psych affect normal Assessment and Plan #Acute on chronic hypoxic respiratory failure due to acute on chronic COPD exacerbation * has been weaned off BIPAP and now on her baseline 3L of oxygen. * IV Solu-Medrol 40 mg every 8 hours.? IV Levaquin every 48 hours on account of renal failure * Breathing treatments with bronchodilators. * Consult pulmonology if patient cannot be weaned off of BiPAP #ESRD: On hemodialysis Wednesdays. For dialysis today #Chronic anemia due to ESRD: Stable #Paroxysmal A. fib: On atenolol and Eliquis #Hypertension: On atenolol. #History of DVT: On Eliquis #Depression and anxiety: On duloxetine #GERD: On PPI DVT prophylaxis: Not indicated as patient on Eliquis. CODE STATUS: Full code Total time I spent on the care of the patient today: 20 mins, with Chantal Barrera spending SALES AND SERVICE OFFICER-C spending 14 mins, making a total of 34 mins. Visit Charges Inpatient E&M: 36081 Subs Hosp L2
[2022-03-24] MEDS: Carvedilol 25 MG Tablet PO ×2 (11:01→20:59)
[2022-03-24] MEDS: APIXABAN 2.5 MG TABLET PO ×2 (11:01→20:59)
[2022-03-24] MEDS: Polyethylene Glycol 3350 17 GM PACKET PO (11:01)
[2022-03-24] MEDS: Ipratropium/Albuterol Sulfate 3 ML AMPUL.NEB INHALATION ×3 (11:10→21:16)
--- NOTE | 2022-03-24 11:16 | NURSING ---
Morning meds given late and held until dialysis has finished, dialysis supposed to be here this afternoon
--- NOTE | 2022-03-24 14:39 | CASEMGMT ---
This REGGIE FAN received message from pt's PCP, Yen Valdez from [facility]. Contact info: phone [phone], fax [phone]. Leonides PAREDES CM
--- NOTE | 2022-03-24 15:27 | CHAPLAIN ---
Type of Pastoral Visit _x__ Initial Visit ___ Follow-up Visit ___ On-call Visit ___ General Patient Visit ___ Spiritual Assessment ___ Family Conference ___ Bereavement ___ Rapid Response ___ Code Blue ___ Other (describe below) Pastoral Care Referral From _x__ Patient ___ Family ___ Nurse ___ Physician ___ Barrel Maker ___ Retail Merchandiser ___ Other (describe below) Sacrament/Intervention _x__ Active listening ___ Anointing ___ Catholic ___ Bereavement ___ Communion ___ Flaca exploration ___ ___ Life review _x__ Prayer ___ Reconciliation ___ Sacrament of Sick _x__ Supportive presence ___ Wedding ___ Other (describe below) Pastoral Comments patient is admitted frequently to hospital and has become known to this electrical cad technician; pt states that she requests this electrical cad technician specifically because I really need your prayers; pt states that I used to call my younger brother to pray for me, but now I call on you; pt admits to discouragement due to frequent illnesses and very few days That I feel well; pt says she also finds support in a very dear friend that we call and talk to each other every other day; pt was asked if she would be so discouraged as to hurt herself and she responded no, I'm not that way now; pt emphasized that she wants to have some good days and to live longer
[2022-03-24] MEDS: Folic Acid/Vitamin B Comp W-C 1 Capsule 1 CAP PO (15:57)
[2022-03-24] MEDS: DULoxetine Hcl 60 MG Capsule PO (15:57)
[2022-03-24] MEDS: Pantoprazole Sodium 20 MG Tablet PO (15:58)
[2022-03-24] MEDS: oxyCODONE 5 MG Tablet 10 MG PO (15:58)
[2022-03-24] MEDS: Gabapentin 600 MG Tablet PO (15:58)
--- NOTE | 2022-03-24 16:11 | CASEMGMT ---
MARIA GUADALUPE spoke with patient as she is from [facility]. Patient plans on returning to [facility] at d/c. Evy GONZALEZ
--- NOTE | 2022-03-24 18:02 | CM.ED ---
MARIA GUADALUPE camara
--- NOTE | 2022-03-24 18:10 | CM.ED ---
MARIA GUADALUPE Note MARIA GUADALUPE called [facility] at 4:15 and left voice mail inquiring if the patient could return to [facility] when medically cleared. MARIA GUADALUPE called interventional tech for [facility] [phone] and spoke to Neeta, the interventional tech nurse. MARIA GUADALUPE inquired if patient could return to [facility] when she is medically ready. Neeta inquired if patient is walking on her own and ambulating her self. Neeta was advised that this race and sports book writer does not know patient's current level of care. Neeta said that the RN needs to do RN to RN report to interventional tech nurse at [phone] prior to patient returning.
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
--- NOTE | 2022-03-24 19:25 | DIALYSIS ---
Hemodialysis x3.5 hours completed at 1910 on a 3K bath, tolerated well, UF 2500mL, accessed via right chest tunneled dialysis catheter, worked well, next tx planned for Sunday
[2022-03-24] MEDS: Lactulose 20 GM/30 ML UDC PO (20:59)
[2022-03-24] MEDS: Mirtazapine 15 MG Tablet 45 MG PO (20:59)
[2022-03-24] MEDS: Montelukast 10 MG Tablet PO (20:59)
[2022-03-24] MEDS: Calcium Carbonate 500 MG Tablet 1000 MG PO (20:59)
[2022-03-25] VITALS (12 sets, daily range): BP systolic 158–177; BP diastolic 66–73; PULSE 66–74; RESP 16–18; TEMP 36.3–36.8; O2SAT 99–100
[2022-03-25] MEDS: Dicyclomine 10 MG Capsule 20 MG PO ×2 (05:43→15:21)
[2022-03-25] MEDS: hydrALAZINE 50 MG Tablet 100 MG PO ×2 (05:43→15:21)
[2022-03-25] MEDS: Calcium Acetate 667 MG Capsule 1334 MG PO ×2 (05:43→15:21)
[2022-03-25] MEDS: 0.9% Saline Lock 10 ML Syringe IV (05:43)
[2022-03-25] MEDS: oxyCODONE 5 MG Tablet 10 MG PO (05:47)
[2022-03-25] MEDS: Ipratropium/Albuterol Sulfate 3 ML AMPUL.NEB INHALATION ×3 (06:47→15:26)
[2022-03-25 08:16] LABS: Absolute Lymphocyte Count 0.55 X10^3/uL (0.83-4.51); Absolute Neutrophil Count 9.9 X10^3/uL (2.0-7.7); Hematocrit 34.6 % (37-47); Lymphocyte # 0.55 X10^3/ul (0.83-4.51); Lymphocyte % 5.1 % (19-41); Mean Corp Hgb Conc 31.8 g/dL (32-36); Mean Corpuscular Hgb 28.9 pg (27.0-32.0); Mean Corpuscular Volume 91.1 fL (81-99); Mean Platelet Vol. 10.5 fl (6.2-12.0); Monocyte# 0.23 X10^3/uL; Monocyte% 2.1 % (0-10); NRBC Flagged by Analyzer 0 % (0-5); Neutrophil # 9.93 X10^3/uL (2.7-7.7); Neutrophil % 92.2 % (47-70); POSITIVE DIFFERENTIAL YES; Platelet Count 163 K/mm3 (150-450); RBC Distribution Width CV 15.8 % (11.6-14.6); RBC Distribution Width SD 52.3 fl (35.1-43.9); White Blood Count 10.8 K/mm3 (4.4-11.0)
[2022-03-25 08:17] LABS: Differential Indicated SCAN CRITERIA MET
[2022-03-25 08:38] LABS: Anion Gap 8 (5-15); BUN 30 mg/dL (7-18); BUN/Creat Ratio 6.6 RATIO (10-20); Calcium,Total 9.7 mg/dL (8.5-10.1); Chloride 99 mmol/L (98-107); Creatinine, Serum 4.52 mg/dL (0.55-1.02); EST Glomerular Filtration Rate 10 mL/min (>60); Est Glom Filt Rate - Afr Amer 12 mL/min (>60); Glucose 135 mg/dL (74-106); Potassium 5.1 mmol/L (3.5-5.1); Sodium Level 136 mmol/L (136-145)
[2022-03-25 08:51] LABS: Differential Comment SCANNED
[2022-03-25] MEDS: Polyethylene Glycol 3350 17 GM PACKET PO (09:11)
[2022-03-25] MEDS: DULoxetine Hcl 60 MG Capsule PO (09:12)
[2022-03-25] MEDS: levoFLOXacin IV 500 MG/100 ML BAG 100 MG IV (09:12)
[2022-03-25] MEDS: Carvedilol 25 MG Tablet PO (09:12)
[2022-03-25] MEDS: amLODIPine 10 MG Tablet PO (09:12)
[2022-03-25] MEDS: Pantoprazole Sodium 20 MG Tablet PO (09:12)
[2022-03-25] MEDS: APIXABAN 2.5 MG TABLET PO (09:12)
[2022-03-25] MEDS: Gabapentin 300 MG Capsule PO (09:12)
--- NOTE | 2022-03-25 09:22 | DCINST_ITS ---
Discharge Instructions Diet Discharge Diet: Renal Diet Activity Discharge Activity: Return to Normal Activity Dressing / Incision Call your doctor if you observe: Shortness of breath, Dizziness and Chest pain Follow Up Care Test Results: Test results from this visit will be discussed in further detail at your follow- up appointment, if applicable. Discharge Plan Admission Admit Date/Time: 03/23/22 11:19 Primary Reason for Your Visit: Hypoxic respiratory failure Attending Provider: Malu Smith Primary Care Provider: Yen Valdez [address] RECORDER Consulting Providers: Brittani Byrne Discharge Orders/Prescriptions Prescriptions: New prednisone 20 mg Tablet 40 mg PO BREAKFAST 5 Days Qty: 10 0RF levofloxacin 500 mg tablet 500 mg PO Q48H Qty: 3 0RF Rx Instructions: begin 03/27/22 Continued hydralazine 100 MG tablet 100 mg PO TID amlodipine 10 mg Tablet 10 mg PO DAILY calcium acetate(phosphat bind) 667 mg Capsule 1,334 mg PO TID mirtazapine 45 mg Tablet 45 mg PO QHS Eliquis 2.5 mg Tablet 2.5 mg PO BID dicyclomine 20 mg tablet 20 mg PO TID Label Comments: Take 1 tablet by mouth three times daily before meals. gabapentin 600 mg tablet 600 mg PO MOWEFR Label Comments: 1 TABLET BY MOUTH (3P-6P AFTER DIALYSIS) DX: gabapentin 300 mg capsule 300 mg PO [facility] Label Comments: 1 CAPSULE BY MOUTH (3P-6P) DX:E omeprazole 20 mg capsule,delayed release(DR/EC) 20 mg PO DAILY Label Comments: 1 CAPSULE BY MOUTH ONCECDAILY DX: / NURSE TO REORDER duloxetine 20 mg capsule,delayed release(DR/EC) 60 mg PO DAILY Label Comments: 2 CAPSULES (40MG) BYAMOUTH DAILY /NURSE TORREORDER RenaPlex-D 800 mcg-12.5 mg -2,000 unit tablet 1 tab PO MOWEFR Label Comments: TAKE 1 TABLET BY MOUTH EVERY DAY (ON DIALYSIS DAYS, TAKE AFTER DIALYSIS TREATMENT) dextromethorphan polistirex [Robitussin ER] 30 mg/5 mL suspension,extended rel 12 hr 10 ml PO Q12H PRN (Reason: cough) Qty: 89 0RF albuterol sulfate 2.5 mg /3 mL (0.083 %) Solution For Nebulization 2.5 mg inhalation Q2H PRN PRN (Reason: SOB/Wheezing) 30 Days Qty: 90 0RF montelukast [Singulair] 10 mg Tablet 10 mg PO QHS docusate sodium 100 mg Tablet 200 mg PO BID PRN PRN (Reason: constipation) lactulose 10 gram/15 mL Solution 30 ml PO QHS oxycodone 10 mg Tablet 10 mg PO BID PRN (Reason: Pain) guaifenesin [Mucinex] 600 mg Tablet Extended Release 12hr 400 mg PO TID PRN PRN (Reason: Congestion) polyethylene glycol 3350 [Miralax] 17 gram/dose powder 17 g PO DAILY Qty: 119 0RF carvedilol 25 mg Tablet 25 mg PO BID Qty: 0 0RF ipratropium-albuterol 0.5 mg-3 mg(2.5 mg base)/3 mL Solution For Nebulization 3 ml inhalation 4X/DAY Qty: 0 0RF midodrine 10 mg tablet 10 mg PO MOWEFR Held prednisone 5 mg tablet 5 mg PO DAILY Hold Instructions: Resume on 03/31/22. Referrals / Follow Up: Soraida Sears MD [Med Staff - Consulting] - See Referral Note (as scheduled) Yen Valdez [address] RECORDER, [facility] [facility] RECORDER-C [Primary Care Provider] - In 1 Week Disposition Disposition (needs filled in before D/C Order can be placed): Assisted Living
--- NOTE | 2022-03-25 09:45 | DS.PCM_ITS ---
Documented by User: Chantal Barrera NP, [facility]-C 03/25/22 09:57 Providers Date of Admission: 03/23/22 Date of Discharge: 03/25/22 Primary Care Physician: JOE Angela Consultations 03/23/22 13:07 Consult: Nephrology Routine Consulting Provider: Brittani Byrne Reason for Consult: ESRD, for hemodialysis EMERGENT Consult: No MD Notified: Yes Date Notified: 03/23/22 Time Notified: 13:07 Method of Notification: Text Reason For Visit: HYPOXIA Diagnosis Discharge Diagnosis (1) ESRD (end stage renal disease): Status: Chronic Code(s): N18.6 - End stage renal disease (2) HTN (hypertension): Status: Chronic Code(s): I10 - Essential (primary) hypertension Qualifiers: Hypertension type: essential hypertension Qualified Code(s): I10 - Essential (primary) hypertension (3) Anemia in chronic kidney disease (CKD): Status: Chronic Code(s): N18.9 - Chronic kidney disease, unspecified; D63.1 - Anemia in chronic kidney disease Qualifiers: Chronic kidney disease stage: on chronic dialysis Qualified Code(s): N18.6 - End stage renal disease; D63.1 - Anemia in chronic kidney disease; Z99.2 - Dependence on renal dialysis (4) Acute and chronic respiratory failure with hypoxia: Status: Chronic Code(s): J96.21 - Acute and chronic respiratory failure with hypoxia (5) COPD exacerbation: Status: Chronic Code(s): J44.1 - Chronic obstructive pulmonary disease with (acute) exacerbation Medications at Discharge Home Medications hydralazine 100 mg tablet 100 mg PO TID HTN 03/31/20 amlodipine 10 mg tablet 10 mg PO DAILY BP 11/30/20 calcium acetate(phosphat bind) 667 mg capsule 1,334 mg PO TID health maintenance 11/30/20 apixaban 2.5 mg tablet (Eliquis) 2.5 mg PO BID anticoagulant 01/08/21 mirtazapine 45 mg tablet 45 mg PO QHS health maintenance 01/08/21 dicyclomine 20 mg tablet 20 mg PO TID health maintenance 02/26/21 duloxetine 20 mg capsule,delayed release 60 mg PO DAILY DEPRESSION 10/05/21 gabapentin 300 mg capsule 300 mg PO SUTUTHSA NERVE PAIN 10/05/21 gabapentin 600 mg tablet 600 mg PO MOWEFR NERVE PAIN 10/05/21 omeprazole 20 mg capsule,delayed release 20 mg PO DAILY GERD 10/05/21 vit B,C-folic ac 800 mcg-zinc 12.5 mg-selen-D3 2,000 unit-vit E tablet (RenaPlex-D) 1 tab PO MOWEFR DIALYSIS 10/05/21 albuterol sulfate 2.5 mg/3 mL (0.083 %) solution for nebulization 2.5 mg (3 mL) inhalation Q2H PRN PRN SOB/Wheezing 30 days #90 mL 10/08/21 dextromethorphan polistirex 30 mg/5 mL oral susp ext.release 12hr (Robitussin ER) 10 ml PO Q12H PRN cough #89 mL 10/08/21 docusate sodium 100 mg tablet 200 mg PO BID PRN PRN constipation 10/25/21 guaifenesin 600 mg tablet, extended release 12 hr (Mucinex) 400 mg PO TID PRN PRN Congestion 10/25/21 lactulose 10 gram/15 mL oral solution 30 ml PO QHS 10/25/21 montelukast 10 mg tablet (Singulair) 10 mg PO QHS 10/25/21 oxycodone 10 mg tablet 10 mg PO BID PRN Pain 10/25/21 polyethylene glycol 3350 17 gram/dose oral powder (Miralax) 17 g PO DAILY #119 grams 12/13/21 carvedilol 25 mg tablet 25 mg PO BID #0 tabs 12/21/21 ipratropium 0.5 mg-albuterol 3 mg (2.5 mg base)/3 mL nebulization soln 3 ml inhalation 4X/DAY #0 mL 12/21/21 midodrine 10 mg tablet 10 mg PO MOWEFR 02/23/22 prednisone 5 mg tablet 5 mg PO DAILY 02/23/22 levofloxacin 500 mg tablet 500 mg PO Q48H #3 tabs 03/25/22 prednisone 20 mg tablet 40 mg PO BREAKFAST 5 days #10 tabs 03/25/22 Hospital Course Operations None Procedures Dialysis Summary of Care Provided Hospital Course: Patient is a 72-year-old female admitted 03/23/2022 due to shortness of breath. 1. Acute on chronic hypoxic respiratory failure secondary to acute exacerbation of chronic COPD as well as fluid overload as a result of end-stage renal disease-initially requiring BiPAP.? Continue supplemental oxygen to maintain O2 sat above 90%.? Patient on baseline home O2 requirements which is 2 L at rest and 4 L with exertion. Outpatient follow-up with PCP. 2. Acute exacerbation of chronic COPD-IV Solu-Medrol during admission, transition to prednisone burst at dc.? Afebrile, no leukocytosis.? Chest x-ray with resolving right lower lobe infiltrate. Treat empirically with Levaquin at discharge to complete course. 3. Fluid overload secondary to end-stage renal disease on hemodialysis-BNP 3500.? Nephrology consulted during admission.? Continue dialysis as scheduled. 4. Chronic heart failure with reduced ejection fraction-echocardiogram April 2021 with EF 55%.? No longer on Lasix.? Continue dialysis. 5. Paroxysmal atrial fibrillation-on carvedilol, Eliquis. 6. Anemia of chronic disease- stable. 7. Hypertension-continue amlodipine, carvedilol, hydralazine. 8. Hyperlipidemia-not on statin. 9. Anxiety/depression-on duloxetine, mirtazapine. 10. History of CVA-Eliquis.? Not on aspirin, statin. 11.? History of type 2 diabetes mellitus-hemoglobin A1c 12/01/2020 3.8%. 12. History of DVT-on Eliquis. 13. GERD-continue PPI. 14. Tobacco dependence-encouraged cessation. Physical Exam Const alert and oriented x3 HEENT normocephalic and moist oral mucous membranes Eyes PERRL, EOMs intact bilaterally and conjunctivae normal Neck no lymphadenopathy Resp Auscultation: Diminished, clear to auscultation Cardio regular rate, regular rhythm and no murmurs Peripheral Pulses: pulses 2+ throughout GI normal to inspection, nondistended, normoactive bowel sounds, non-tender and non-distended Extremity normal to inspection General Extremity: edema bilateral lower extremity Skin no rashes or lesions noted Lesions: no lesions Rashes: no rashes Trauma: no lacerations or abrasions Neuro CN's II-XII intact bilaterally, no focal motor deficits, no sensory deficits noted and deep tendon reflexes 2+ bilaterally Psych mental status grossly normal and affect normal Patient seen and examined prior to discharge. Physical assessment as noted above. Patient is stable for discharge with follow up recommendations as noted above. This patient was seen by Chantal Barrera NP-C under the supervision of Dr. Smith. Time spent examining patient, reviewing data and subsequent management of care: 24 Minutes Weight / BMI Weight Weight: 153 lb 7.068 oz Body Mass Index (BMI) 22.6 ABG / Lab / Microbiology Data Result Diagrams: 03/25/22 07:51 03/25/22 07:51 Laboratory: Laboratory Results - last 24 hr 03/25/22 07:51: WBC 10.8, RBC 3.80 L, Hgb 11.0 L, Hct 34.6 L, MCV 91.1, MCH 28.9, MCHC 31.8 L D, RDW Std Deviation 52.3 H, RDW Coeff of Destiny 15.8 H, Plt Count 163, MPV 10.5, Immature Gran % (Auto) 0.600, Neut % (Auto) 92.2 H, Lymph % (Auto) 5.1 L, Gove % (Auto) 2.1, Eos % (Auto) 0.0, Baso % (Auto) 0.0, Absolute Neuts (auto) 9.9 H, Absolute Lymphs (auto) 0.55 L, Nucleated RBC % 0, Differential Comment SCANNED 03/25/22 07:51: Sodium 136, Potassium 5.1, Chloride 99, Carbon Dioxide 29.0, Anion Gap 8, BUN 30 H, Creatinine 4.52 H, Estim Creat Clear Calc 12.10, Est GFR (MDRD) Af Amer 12 L, Est GFR (MDRD) Non-Af 10 L, BUN/Creatinine Ratio 6.6 L, Glucose 135 H, Calcium 9.7 D/C Instructions Discharge Diet: Renal Diet Call your doctor if you observe: Shortness of breath, Dizziness and Chest pain Meaningful Use Info Meaningful Use Diagnoses (Choose all that apply): None applicable Discharge Plan Admission Admit Date/Time: 03/23/22 11:19 Primary Reason for Your Visit: Hypoxic respiratory failure Attending Provider: Malu Smith Primary Care Provider: Yen Valdez [employer] Consulting Providers: Brittani Byrne Discharge Orders/Prescriptions Prescriptions: New prednisone 20 mg Tablet 40 mg PO BREAKFAST 5 Days Qty: 10 0RF levofloxacin 500 mg tablet 500 mg PO Q48H Qty: 3 0RF Rx Instructions: begin 03/27/22 Continued hydralazine 100 MG tablet 100 mg PO TID amlodipine 10 mg Tablet 10 mg PO DAILY calcium acetate(phosphat bind) 667 mg Capsule 1,334 mg PO TID mirtazapine 45 mg Tablet 45 mg PO QHS Eliquis 2.5 mg Tablet 2.5 mg PO BID dicyclomine 20 mg tablet 20 mg PO TID Label Comments: Take 1 tablet by mouth three times daily before meals. gabapentin 600 mg tablet 600 mg PO MOWEFR Label Comments: 1 TABLET BY MOUTH (3P-6P AFTER DIALYSIS) DX: gabapentin 300 mg capsule 300 mg PO SUTUTHSA Label Comments: 1 CAPSULE BY MOUTH (3P-6P) DX:E omeprazole 20 mg capsule,delayed release(DR/EC) 20 mg PO DAILY Label Comments: 1 CAPSULE BY MOUTH ONCECDAILY DX: / NURSE TO REORDER duloxetine 20 mg capsule,delayed release(DR/EC) 60 mg PO DAILY Label Comments: 2 CAPSULES (40MG) BYAMOUTH DAILY /NURSE TORREORDER RenaPlex-D 800 mcg-12.5 mg -2,000 unit tablet 1 tab PO MOWEFR Label Comments: TAKE 1 TABLET BY MOUTH EVERY DAY (ON DIALYSIS DAYS, TAKE AFTER DIALYSIS TREATMENT) dextromethorphan polistirex [Robitussin ER] 30 mg/5 mL suspension,extended rel 12 hr 10 ml PO Q12H PRN (Reason: cough) Qty: 89 0RF albuterol sulfate 2.5 mg /3 mL (0.083 %) Solution For Nebulization 2.5 mg inhalation Q2H PRN PRN (Reason: SOB/Wheezing) 30 Days Qty: 90 0RF montelukast [Singulair] 10 mg Tablet 10 mg PO QHS docusate sodium 100 mg Tablet 200 mg PO BID PRN PRN (Reason: constipation) lactulose 10 gram/15 mL Solution 30 ml PO QHS oxycodone 10 mg Tablet 10 mg PO BID PRN (Reason: Pain) guaifenesin [Mucinex] 600 mg Tablet Extended Release 12hr 400 mg PO TID PRN PRN (Reason: Congestion) polyethylene glycol 3350 [Miralax] 17 gram/dose powder 17 g PO DAILY Qty: 119 0RF carvedilol 25 mg Tablet 25 mg PO BID Qty: 0 0RF ipratropium-albuterol 0.5 mg-3 mg(2.5 mg base)/3 mL Solution For Nebulization 3 ml inhalation 4X/DAY Qty: 0 0RF midodrine 10 mg tablet 10 mg PO MOWEFR Held prednisone 5 mg tablet 5 mg PO DAILY Hold Instructions: Resume on 03/31/22. Referrals / Follow Up: Soraida Sears MD [Med Staff - Consulting] - See Referral Note (as scheduled) Yen Valdez [facility]ENT, [facility]-C [Primary Care Provider] - In 1 Week Disposition Disposition (needs filled in before D/C Order can be placed): Assisted Living Documented by User: Dr. Malu Smith MD 03/25/22 16:10 Providers Date of Admission: 03/23/22 Reason For Visit: HYPOXIA Diagnosis Discharge Diagnosis (1) ESRD (end stage renal disease): Status: Chronic Code(s): N18.6 - End stage renal disease (2) HTN (hypertension): Status: Chronic Code(s): I10 - Essential (primary) hypertension Qualifiers: Hypertension type: essential hypertension Qualified Code(s): I10 - Essential (primary) hypertension (3) Anemia in chronic kidney disease (CKD): Status: Chronic Code(s): N18.9 - Chronic kidney disease, unspecified; D63.1 - Anemia in chronic kidney disease Qualifiers: Chronic kidney disease stage: on chronic dialysis Qualified Code(s): N18.6 - End stage renal disease; D63.1 - Anemia in chronic kidney disease; Z99.2 - Dependence on renal dialysis (4) Acute and chronic respiratory failure with hypoxia: Status: Chronic Code(s): J96.21 - Acute and chronic respiratory failure with hypoxia (5) COPD exacerbation: Status: Chronic Code(s): J44.1 - Chronic obstructive pulmonary disease with (acute) exacerbation Medications at Discharge Home Medications hydralazine 100 mg tablet 100 mg PO TID HTN 03/31/20 amlodipine 10 mg tablet 10 mg PO DAILY BP 11/30/20 calcium acetate(phosphat bind) 667 mg capsule 1,334 mg PO TID health maintenance 11/30/20 apixaban 2.5 mg tablet (Eliquis) 2.5 mg PO BID anticoagulant 01/08/21 mirtazapine 45 mg tablet 45 mg PO QHS health maintenance 01/08/21 dicyclomine 20 mg tablet 20 mg PO TID health maintenance 02/26/21 duloxetine 20 mg capsule,delayed release 60 mg PO DAILY DEPRESSION 10/05/21 gabapentin 300 mg capsule 300 mg PO SUTUTHSA NERVE PAIN 10/05/21 gabapentin 600 mg tablet 600 mg PO MOWEFR NERVE PAIN 10/05/21 omeprazole 20 mg capsule,delayed release 20 mg PO DAILY GERD 10/05/21 vit B,C-folic ac 800 mcg-zinc 12.5 mg-selen-D3 2,000 unit-vit E tablet (RenaPlex-D) 1 tab PO MOWEFR DIALYSIS 10/05/21 albuterol sulfate 2.5 mg/3 mL (0.083 %) solution for nebulization 2.5 mg (3 mL) inhalation Q2H PRN PRN SOB/Wheezing 30 days #90 mL 10/08/21 dextromethorphan polistirex 30 mg/5 mL oral susp ext.release 12hr (Robitussin ER) 10 ml PO Q12H PRN cough #89 mL 10/08/21 docusate sodium 100 mg tablet 200 mg PO BID PRN PRN constipation 10/25/21 guaifenesin 600 mg tablet, extended release 12 hr (Mucinex) 400 mg PO TID PRN PRN Congestion 10/25/21 lactulose 10 gram/15 mL oral solution 30 ml PO QHS 10/25/21 montelukast 10 mg tablet (Singulair) 10 mg PO QHS 10/25/21 oxycodone 10 mg tablet 10 mg PO BID PRN Pain 10/25/21 polyethylene glycol 3350 17 gram/dose oral powder (Miralax) 17 g PO DAILY #119 grams 12/13/21 carvedilol 25 mg tablet 25 mg PO BID #0 tabs 12/21/21 ipratropium 0.5 mg-albuterol 3 mg (2.5 mg base)/3 mL nebulization soln 3 ml inhalation 4X/DAY #0 mL 12/21/21 midodrine 10 mg tablet 10 mg PO MOWEFR 02/23/22 prednisone 5 mg tablet 5 mg PO DAILY 02/23/22 levofloxacin 500 mg tablet 500 mg PO Q48H #3 tabs 03/25/22 prednisone 20 mg tablet 40 mg PO BREAKFAST 5 days #10 tabs 03/25/22 ABG / Lab / Microbiology Data Result Diagrams: 03/25/22 07:51 03/25/22 07:51 Discharge Plan Admission Admit Date/Time: 03/23/22 11:19 Primary Reason for Your Visit: Hypoxic respiratory failure Attending Provider: Malu Smith Primary Care Provider: Yen Valdez [employer] Consulting Providers: Brittani Byrne Discharge Orders/Prescriptions Prescriptions: New prednisone 20 mg Tablet 40 mg PO BREAKFAST 5 Days Qty: 10 0RF levofloxacin 500 mg tablet 500 mg PO Q48H Qty: 3 0RF Rx Instructions: begin 03/27/22 Continued hydralazine 100 MG tablet 100 mg PO TID amlodipine 10 mg Tablet 10 mg PO DAILY calcium acetate(phosphat bind) 667 mg Capsule 1,334 mg PO TID mirtazapine 45 mg Tablet 45 mg PO QHS Eliquis 2.5 mg Tablet 2.5 mg PO BID dicyclomine 20 mg tablet 20 mg PO TID Label Comments: Take 1 tablet by mouth three times daily before meals. gabapentin 600 mg tablet 600 mg PO [place] Label Comments: 1 TABLET BY MOUTH (3P-6P AFTER DIALYSIS) DX: gabapentin 300 mg capsule 300 mg PO [facility] Label Comments: 1 CAPSULE BY MOUTH (3P-6P) DX:E omeprazole 20 mg capsule,delayed release(DR/EC) 20 mg PO DAILY Label Comments: 1 CAPSULE BY MOUTH ONCECDAILY DX: / NURSE TO REORDER duloxetine 20 mg capsule,delayed release(DR/EC) 60 mg PO DAILY Label Comments: 2 CAPSULES (40MG) BYAMOUTH DAILY /NURSE TORREORDER RenaPlex-D 800 mcg-12.5 mg -2,000 unit tablet 1 tab PO [place] Label Comments: TAKE 1 TABLET BY MOUTH EVERY DAY (ON DIALYSIS DAYS, TAKE AFTER DIALYSIS TREATMENT) dextromethorphan polistirex [Robitussin ER] 30 mg/5 mL suspension,extended rel 12 hr 10 ml PO Q12H PRN (Reason: cough) Qty: 89 0RF albuterol sulfate 2.5 mg /3 mL (0.083 %) Solution For Nebulization 2.5 mg inhalation Q2H PRN PRN (Reason: SOB/Wheezing) 30 Days Qty: 90 0RF montelukast [Singulair] 10 mg Tablet 10 mg PO QHS docusate sodium 100 mg Tablet 200 mg PO BID PRN PRN (Reason: constipation) lactulose 10 gram/15 mL Solution 30 ml PO QHS oxycodone 10 mg Tablet 10 mg PO BID PRN (Reason: Pain) guaifenesin [Mucinex] 600 mg Tablet Extended Release 12hr 400 mg PO TID PRN PRN (Reason: Congestion) polyethylene glycol 3350 [Miralax] 17 gram/dose powder 17 g PO DAILY Qty: 119 0RF carvedilol 25 mg Tablet 25 mg PO BID Qty: 0 0RF ipratropium-albuterol 0.5 mg-3 mg(2.5 mg base)/3 mL Solution For Nebulization 3 ml inhalation 4X/DAY Qty: 0 0RF midodrine 10 mg tablet 10 mg PO MOWEFR Held prednisone 5 mg tablet 5 mg PO DAILY Hold Instructions: Resume on 03/31/22. Referrals / Follow Up: Soraida Sears MD [Med Staff - Consulting] - See Referral Note (as scheduled) Yen Valdez NP, [facility]-C [Primary Care Provider] - In 1 Week Disposition Disposition (needs filled in before D/C Order can be placed): Assisted Living Charges/Coding Addendum Addendum: Patient seen by Chantal Barrera NP-C under my supervision ALEC MCKINLEYRICK, is a 72 F with a PMH as outlined who presents via the ED from her SNF with a complaint of shortness of breath. She last had a full run of dialysis on 03/22/2022. She is usually on 4L of oxygen, but got very short of breath today. She was put on 6L of oxygen but was still short of breath. She denied any chest pain, palpitations, dizziness, nausea or vomiting. Review of systems was otherwise negative. She had increased work of breathing on admission so was placed on BIPAP. Vitals were temp of 96.7F, [place] of 71, BP of 161/68 and RR of 30. She was on BIPAP with 30% oxygen and saturating at 100%. CBC showed hemoglobin of 11.2 with WBC of 7 and platelets of 166.? Chemistry showed sodium of 139 with creatinine of 4.998 and BMP of 3518.? BNP is chronically elevated.? Chest x-ray showed resolving right lower lobe infiltrate and effusion.? She was admitted to be managed for probable acute on chronic COPD exacerbation and right lower lobe pleural effusion which appears to be chronic. She was started on IV Solu-Medrol as well as breathing treatments with bronchodilators and IV Levaquin every 48 hours. She was weaned off of BiPAP and his shortness of breath improved. She was weaned down to her baseline 4 L of oxygen. She also received dialysis during this admission. She was eventually weaned down to 2 L of oxygen and felt much better. She was [facility] back to her [facility] facility on 03/[facility]/2022. Of note, nephrology was consulted and she did receive dialysis during this admission. She was discharged to complete a course of Levaquin. She is follow-up with her primary care doctor and with nephrology as well as pulmonology. Patient seen and examined prior to discharge. She felt well and felt ready to go home. She had no active complaints and had an uneventful night. Review of systems otherwise negative. Labs and vitals reviewed. Medication reviewed and reconciled. Const alert, oriented x3 and no apparent distress General Appearance: cooperative HEENT normocephalic, head/scalp atraumatic, hearing grossly normal bilaterally and moist oral mucous membranes Eyes PERRL, EOMs intact bilaterally and conjunctivae normal Neck no lymphadenopathy, supple and no JVD Resp normal respiratory effort and clear to auscultation bilaterally. on 2L of oxygen Cardio regular rate, regular rhythm, S1 normal heart sound, S2 normal heart sound and no murmurs GI normal to inspection, nondistended, normoactive bowel sounds and soft to palpation Extremity normal to inspection, full ROM and no clubbing, cyanosis or edema Skin no rashes or lesions noted; dialysis catheter in chest Neuro oriented x3, CN's II-XII intact bilaterally and moves all extremities Sensorium / Orientation: awake and alert Psych affect normal Plan is for discharge home today. Total time spent on discharge today was 27 minutes with Chantal Barrera spending 24 minutes making a total of 51 minutes. Visit Charges Inpatient E&M: 24679 Disch Hosp
--- NOTE | 2022-03-25 10:46 | PCA ---
Called [facility] to arrange wheel chair transport to [facility]. Requested [facility] as our provider.
--- NOTE | 2022-03-25 11:06 | NURSING ---
Report called to nurse Angulo for pt to be d/c back to [facility].
--- NOTE | 2022-03-25 15:30 | NURSING ---
[facility] called and stated [facility] will pick patient up for transport at 1830.
== END 2022-03-25 19:14 | disposition home or self-care (01) | DRG 190 ==
LOC: ED 11:07 → PCU 11:36
PROVIDERS: Admitting Provider Student in an Organized Health Care Education/Training Program; Emergency Provider Emergency Medicine; PCP Nurse Practitioner Adult Health; Visit Provider Student in an Organized Health Care Education/Training Program
DX: J44.1 Chronic obstructive pulmonary disease with (acute) exacerbation (principal); N18.6 End stage renal disease; J96.21 Acute and chronic respiratory failure with hypoxia; I13.2 Hypertensive heart and chronic kidney disease with heart failure and with stage 5 chronic kidney disease, or end stage renal disease; I50.22 Chronic systolic (congestive) heart failure; D63.1 Anemia in chronic kidney disease; E87.79 Other fluid overload; E11.22 Type 2 diabetes mellitus with diabetic chronic kidney disease; I48.0 Paroxysmal atrial fibrillation; Z99.2 Dependence on renal dialysis; E78.00 Pure hypercholesterolemia, unspecified; K21.9 Gastro-esophageal reflux disease without esophagitis; F41.9 Anxiety disorder, unspecified; F17.210 Nicotine dependence, cigarettes, uncomplicated; I25.2 Old myocardial infarction; F32.A Depression, unspecified; G89.29 Other chronic pain; Z99.81 Dependence on supplemental oxygen; Z79.01 Long term (current) use of anticoagulants; Z79.899 Other long term (current) drug therapy; Z86.73 Personal history of transient ischemic attack (TIA), and cerebral infarction without residual deficits; Z86.718 Personal history of other venous thrombosis and embolism
CPT/HCPCS: 36415; 36600; 71045; 80048; 82803; 83880; 84484; 85025; 90937; 93005; 94002; 94640; 94762; 97162; 97166; 99285; 99406; J7030; J7040; A4216; G0257

== ENCOUNTER 2022-04-23 07:28 | Emergency (ER) | payer MEDICARE, MEDICAID, SELFPAY ==
[2022-04-23] VITALS (7 sets, daily range): BP systolic 157–160; BP diastolic 61–67; PULSE 61–70; RESP 16–26; TEMP 35.4; O2SAT 94–100; BMI 24.0
--- NOTE | 2022-04-23 07:56 | EKG12_ITS ---
Test Reason : SOB Blood Pressure : / mmHG Vent. Rate : 067 BPM Atrial Rate : 067 BPM P-R Int : 168 ms QRS Dur : 084 ms QT Int : 432 ms P-R-T Axes : 060 005 -09 degrees QTc Int : 456 ms Normal sinus rhythm Normal ECG Confirmed by TERE LEMON, JAN ([id number]), managing editor BIRDIE TORRES ([id number]) on 04/24/2022 9:50:06 AM Referred By: [email or web address] Confirmed By:JAN CARRANZA MD
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
[2022-04-23] MEDS: Ipratropium/Albuterol Sulfate 3 ML AMPUL.NEB INHALATION (08:04)
[2022-04-23] MEDS: Albuterol 2.5 MG/3 ML VIAL.NEB. INHALATION ×2 (08:04)
[2022-04-23 08:09] LABS: Absolute Lymphocyte Count 1.13 X10^3/uL (0.83-4.51); Absolute Neutrophil Count 5.6 X10^3/uL (2.0-7.7); Basophil# 0.03 X10^3/uL; Basophil% 0.4 % (0-1); Eosinophil# 0.18 X10^3/uL; Eosinophils% 2.4 % (0-5); Hematocrit 27.5 % (37-47); Hemoglobin 7.9 g/dL (12.0-15.0); Lymphocyte # 1.13 X10^3/ul (0.83-4.51); Lymphocyte % 14.8 % (19-41); Mean Corp Hgb Conc 28.7 g/dL (32-36); Mean Corpuscular Hgb 27.7 pg (27.0-32.0); Mean Corpuscular Volume 96.5 fL (81-99); Mean Platelet Vol. 9.5 fl (6.2-12.0); Monocyte# 0.69 X10^3/uL; NRBC Flagged by Analyzer 0.3 % (0-5); Neutrophil # 5.57 X10^3/uL (2.7-7.7); Neutrophil % 72.7 % (47-70); Platelet Count 197 K/mm3 (150-450); RBC Distribution Width SD 62.9 fl (35.1-43.9); Red Blood Count 2.85 M/mm3 (4.2-5.4); White Blood Count 7.7 K/mm3 (4.4-11.0)
[2022-04-23 08:25] LABS: Anion Gap 6 (5-15); BUN 28 mg/dL (7-18); BUN/Creat Ratio 4.7 RATIO (10-20); Calcium,Total 9.3 mg/dL (8.5-10.1); Chloride 104 mmol/L (98-107); Creatinine, Serum 5.92 mg/dL (0.55-1.02); EST Glomerular Filtration Rate 8 mL/min (>60); Est Glom Filt Rate - Afr Amer 9 mL/min (>60); Estimated Creatinine Clearance 9.24 ml/min; Glucose 104 mg/dL (74-106); Potassium 3.9 mmol/L (3.5-5.1); Sodium Level 143 mmol/L (136-145); Troponin-I HS 30 pg/mL (3.0-54.0)
--- NOTE | 2022-04-23 08:29 | RAD_ITS ---
STUDY: X-RAY CHEST REASON FOR EXAM: Female, 72 years old. Chest pain TECHNIQUE: Single frontal view of the chest. COMPARISON: 03/23/2022 FINDINGS: There are bibasilar hazy opacities. There are bilateral prominent interstitial markings. There is a right sided dialysis catheter in place terminating within the expected region of the superior vena cava. There is cardiomegaly. Normal mediastinum and farhan. Normal visualized pulmonary arteries. Normal visualized aortic arch and descending thoracic aorta. Normal visualized thoracic spine. Normal visualized ribs, clavicles, and shoulders. There is no demonstrated abnormality of the visualized soft tissue structures of the upper abdomen. RAD/Chest 1 View (Portable) IMPRESSION: Bilateral pleural effusions, cannot exclude associated bibasilar atelectasis and/or pneumonia. Prominent interstitial markings may reflect edema and/or an infectious process. Cardiomegaly. Electronically Signed: Arin Allen MD at 8:45 EDT ,
[2022-04-23] MEDS: predniSONE 20 MG Tablet 60 MG PO (08:46)
== END 2022-04-23 12:11 | disposition home or self-care (01) ==
PROVIDERS: Emergency Provider Emergency Medicine; PCP Nurse Practitioner Adult Health; Visit Provider Emergency Medicine
DX: J44.1 Chronic obstructive pulmonary disease with (acute) exacerbation (principal); I13.2 Hypertensive heart and chronic kidney disease with heart failure and with stage 5 chronic kidney disease, or end stage renal disease; Z99.2 Dependence on renal dialysis; I50.22 Chronic systolic (congestive) heart failure; E11.22 Type 2 diabetes mellitus with diabetic chronic kidney disease; N18.6 End stage renal disease; I48.0 Paroxysmal atrial fibrillation; J90 Pleural effusion, not elsewhere classified; D63.1 Anemia in chronic kidney disease; E78.00 Pure hypercholesterolemia, unspecified; I25.2 Old myocardial infarction; F17.210 Nicotine dependence, cigarettes, uncomplicated; Z79.01 Long term (current) use of anticoagulants; Z79.899 Other long term (current) drug therapy; Z86.718 Personal history of other venous thrombosis and embolism; Z86.73 Personal history of transient ischemic attack (TIA), and cerebral infarction without residual deficits
CPT/HCPCS: 71045; 80048; 84484; 85025; 93005; 94640; 99285; A4216

== ENCOUNTER 2022-05-01 08:28 | Observation (INO) | payer MEDICARE, MEDICAID, SELFPAY ==
[2022-05-01] VITALS (14 sets, daily range): BP systolic 115–166; BP diastolic 58–74; PULSE 54–77; RESP 16–22; TEMP 36.2–36.8; O2SAT 85–100; BMI 25.2; BMI 23.8
--- NOTE | 2022-05-01 08:49 | EKG12_ITS ---
Test Reason : Blood Pressure : / mmHG Vent. Rate : 079 BPM Atrial Rate : 000 BPM P-R Int : 000 ms QRS Dur : 094 ms QT Int : 390 ms P-R-T Axes : 000 006 018 degrees QTc Int : 447 ms Atrial fibrillation Minimal voltage criteria for LVH, may be normal variant ( [employer] product ) Abnormal ECG Confirmed by BRANDON LEMON, MACIE ([id number]), editorial specialist BIRDIE TORRES ([id number]) on 05/02/2022 1:15:20 PM Referred By: NAYELI Confirmed By:MACIE TAYLOR MD
--- NOTE | 2022-05-01 08:49 | RAD_ITS ---
STUDY: X-RAY CHEST REASON FOR EXAM: Female, 72 years old. Chest pain/sob TECHNIQUE: Single AP portable view of the chest. COMPARISON: Comparison is made with prior study dated 04/23/2022. FINDINGS: A right-sided double lumen catheter is seen with the tip in the right atrium. EKG electrodes are seen. Persistent small bilateral pleural effusions with bibasilar atelectasis is worse at the left lung base. Mild degree of vascular congestion. There is borderline cardiomegaly. Normal mediastinum and farhan. Normal visualized pulmonary arteries. Normal visualized aortic arch and descending thoracic aorta. Normal visualized thoracic spine. Normal visualized ribs, clavicles, and shoulders. There is no demonstrated abnormality of the visualized soft tissue structures of the upper abdomen. RAD/Chest 1 View (Portable) IMPRESSION: Residual small bilateral pleural effusions with bibasilar atelectasis is worse at the left lung base superimposed on mild degree of CHF. There has been mild improvement as compared to prior study. Electronically Signed: Lopez Barraza MD at 10:15 EDT ,
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
[2022-05-01] MEDS: Albuterol 2.5 MG/3 ML VIAL.NEB. INHALATION ×2 (09:09)
[2022-05-01] MEDS: Morphine 2 MG/ML Syringe IV (09:19)
[2022-05-01] MEDS: Aspirin 81 MG TAB.CHEW 162 MG PO (09:19)
[2022-05-01] MEDS: Furosemide 40 MG/4 ML Vial IV (09:19)
[2022-05-01] MEDS: Nitroglycerin Oint 1 INCH PACKET 0.5 INCH TD (09:19)
[2022-05-01 09:30] LABS: Absolute Lymphocyte Count 1.39 X10^3/uL (0.83-4.51); Absolute Neutrophil Count 7.6 X10^3/uL (2.0-7.7); Basophil# 0.02 X10^3/uL; Basophil% 0.2 % (0-1); Eosinophil# 0.12 X10^3/uL; Eosinophils% 1.2 % (0-5); Hematocrit 29.2 % (37-47); Hemoglobin 8.9 g/dL (12.0-15.0); Lymphocyte # 1.39 X10^3/ul (0.83-4.51); Lymphocyte % 13.7 % (19-41); Mean Corp Hgb Conc 30.5 g/dL (32-36); Mean Corpuscular Hgb 29.9 pg (27.0-32.0); Mean Platelet Vol. 9.4 fl (6.2-12.0); Monocyte# 0.89 X10^3/uL; Monocyte% 8.8 % (0-10); NRBC Flagged by Analyzer 0.8 % (0-5); Neutrophil # 7.64 X10^3/uL (2.7-7.7); Neutrophil % 75.4 % (47-70); POSITIVE MORPHOLOGY YES; Platelet Count 176 K/mm3 (150-450); RBC Distribution Width CV 21.7 % (11.6-14.6); RBC Distribution Width SD 73.1 fl (35.1-43.9); Red Blood Count 2.98 M/mm3 (4.2-5.4); White Blood Count 10.1 K/mm3 (4.4-11.0)
[2022-05-01 09:35] LABS: Differential Indicated SCAN CRITERIA MET
[2022-05-01 09:42] LABS: Anion Gap 7 (5-15); BUN 63 mg/dL (7-18); BUN/Creat Ratio 8.2 RATIO (10-20); Calcium,Total 10.5 mg/dL (8.5-10.1); Chloride 103 mmol/L (98-107); Creatinine, Serum 7.64 mg/dL (0.55-1.02); EST Glomerular Filtration Rate 6 mL/min (>60); Est Glom Filt Rate - Afr Amer 7 mL/min (>60); Estimated Creatinine Clearance 7.16 ml/min; Glucose 105 mg/dL (74-106); Potassium 4.5 mmol/L (3.5-5.1); Sodium Level 142 mmol/L (136-145); Troponin-I HS (w/2H Reflex) 37 pg/mL (3.0-54.0)
[2022-05-01 09:49] LABS: Anisocytosis 1+
--- NOTE | 2022-05-01 10:47 | NURSING ---
PAGED DR BAUMAN. 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
--- NOTE | 2022-05-01 10:55 | NURSING ---
DR TAVERAS FOR DR TYLER
[2022-05-01 11:16] LABS: Reflex Troponin-HS? (from REC) Y
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
--- NOTE | 2022-05-01 12:00 | EKG12_ITS ---
Test Reason : cp Blood Pressure : / mmHG Vent. Rate : 057 BPM Atrial Rate : 057 BPM P-R Int : 158 ms QRS Dur : 082 ms QT Int : 444 ms P-R-T Axes : 072 -27 038 degrees QTc Int : 432 ms Poor data quality, interpretation may be adversely affected Sinus bradycardia Nonspecific ST abnormality Abnormal ECG Confirmed by BRANDON LEMON, MACIE ([id number]), production editor BIRDIE TORRES ([id number]) on 05/03/2022 9:40:55 AM Referred By: Damien Confirmed By:MACIE TAYLOR MD
[2022-05-01 12:10] LABS: Troponin-I HS 40 pg/mL (3.0-54.0)
[2022-05-01] MEDS: Acetaminophen 325 MG Tablet 650 MG PO (12:59)
[2022-05-01] MEDS: oxyCODONE 5 MG Tablet 10 MG PO ×2 (13:00→21:34)
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
--- NOTE | 2022-05-01 18:31 | DIALYSIS ---
Hemodialysis completed on a 2K bath, tolerated well, UF 2600mL, CritLine maintained profile B, cramping in right hand and goal decreased, accessed via right chest tunneled dialysis catheter, worked well, ODETTE AVF noted, +bruit +thrill, not yet in use per patient
[2022-05-01] MEDS: Gabapentin 600 MG Tablet PO (18:36)
[2022-05-01] MEDS: Carvedilol 25 MG Tablet PO (21:35)
[2022-05-01] MEDS: APIXABAN 2.5 MG TABLET PO (21:35)
[2022-05-01] MEDS: hydrALAZINE 50 MG Tablet 100 MG PO (21:35)
[2022-05-01] MEDS: Mirtazapine 15 MG Tablet 45 MG PO (21:35)
[2022-05-01] MEDS: Montelukast 10 MG Tablet PO (21:35)
[2022-05-01] MEDS: Lactulose 20 GM/30 ML UDC PO (21:36)
[2022-05-02] VITALS (17 sets, daily range): BP systolic 128–168; BP diastolic 33–77; PULSE 59–74; RESP 16–18; TEMP 36.5–37; O2SAT 98–100
[2022-05-02 06:09] LABS: Absolute Lymphocyte Count 1.43 X10^3/uL (0.83-4.51); Absolute Neutrophil Count 5.6 X10^3/uL (2.0-7.7); Basophil# 0.01 X10^3/uL; Basophil% 0.1 % (0-1); Eosinophil# 0.17 X10^3/uL; Eosinophils% 2.1 % (0-5); Hematocrit 26.6 % (37-47); Hemoglobin 8.4 g/dL (12.0-15.0); Lymphocyte # 1.43 X10^3/ul (0.83-4.51); Lymphocyte % 17.7 % (19-41); Mean Corp Hgb Conc 31.6 g/dL (32-36); Mean Corpuscular Hgb 30.1 pg (27.0-32.0); Mean Corpuscular Volume 95.3 fL (81-99); Mean Platelet Vol. 8.9 fl (6.2-12.0); Monocyte# 0.81 X10^3/uL; NRBC Flagged by Analyzer 0.6 % (0-5); Neutrophil # 5.58 X10^3/uL (2.7-7.7); Neutrophil % 69.4 % (47-70); POSITIVE MORPHOLOGY YES; Platelet Count 144 K/mm3 (150-450); RBC Distribution Width CV 20.9 % (11.6-14.6); RBC Distribution Width SD 71.7 fl (35.1-43.9); Red Blood Count 2.79 M/mm3 (4.2-5.4); White Blood Count 8.1 K/mm3 (4.4-11.0)
[2022-05-02 06:13] LABS: Differential Indicated SCAN CRITERIA MET
[2022-05-02] MEDS: hydrALAZINE 50 MG Tablet 100 MG PO ×3 (06:18→21:36)
[2022-05-02 06:32] LABS: Anisocytosis 2+
[2022-05-02 06:56] LABS: ALB/GLOB Ratio 0.9 RATIO (0.9-2.4); AST(SGOT) 30 U/L (15-37); Alanine Aminotransfer ALT/SGPT 52 U/L (13-56); Albumin, Serum 2.8 g/dL (3.2-5.0); Alkaline Phosphatase 98 U/L (45-117); Anion Gap 5 (5-15); BUN 35 mg/dL (7-18); BUN/Creat Ratio 6.8 RATIO (10-20); Calcium,Total 7.9 mg/dL (8.5-10.1); Chloride 101 mmol/L (98-107); Creatinine, Serum 5.12 mg/dL (0.55-1.02); EST Glomerular Filtration Rate 9 mL/min (>60); Est Glom Filt Rate - Afr Amer 11 mL/min (>60); Estimated Creatinine Clearance 10.68 ml/min; Globulin 3.1 g/dL (2.2-4.2); Glucose 77 mg/dL (74-106); Magnesium 2.1 mg/dL (1.6-2.6); Phosphorus 2.6 mg/dL (2.5-4.9); Protein, Total 5.9 g/dL (6.4-8.2); Sodium Level 137 mmol/L (136-145)
--- NOTE | 2022-05-02 07:42 | PN.HOSP_ITS ---
Subjective Subjective DOS: 05/02/2022 CC: Shortness of breath follow-up Reports that shortness of breath is slowly improving. Left sided chest pain resolved after dialysis. Has been generalized weakness still. Slight residual swelling in legs though better. Has been eating food and did not report any nausea. Did not voice any other complaints this morning Objective Data Objective Data Vital Signs: Vital Signs Temp Pulse Resp BP Pulse Ox O2 Del Method O2 Flow Rate 97.7 F L 62 18 150/77 H 100 Nasal Cannula 3 05/02/22 04:15 05/02/22 06:18 05/02/22 04:15 05/02/22 06:18 05/02/22 04:15 05/02/22 04:15 05/02/22 04:15 Oxygen Flow Rate (L/min) 3 Oxygen Delivery Method Nasal Cannula Weight: 71.8 kg Body Mass Index (BMI) 23.8 Intake & Output: Intake and Output for Last 24 Hours 04/30/22 05/01/22 05/02/22 23:59 23:59 23:59 Output Total 5200 / 5200 Balance -5200 / -5200 Lab / Micro Data Result Diagrams: 05/02/22 05:40 05/02/22 05:40 Labs: Laboratory Results - last 24 hr 05/01/22 09:03: WBC 10.1, RBC 2.98 L, Hgb 8.9 L, Hct 29.2 L, MCV 98.0, MCH 29.9, MCHC 30.5 L, RDW Std Deviation 73.1 H, RDW Coeff of Destiny 21.7 H, Plt Count 176, MPV 9.4, Immature Gran % (Auto) 0.700, Neut % (Auto) 75.4 H, Lymph % (Auto) 13.7 L, [place] % (Auto) 8.8, Eos % (Auto) 1.2, Baso % (Auto) 0.2, Absolute Neuts (auto) 7.6, Absolute Lymphs (auto) 1.39, Nucleated RBC % 0.8, Anisocytosis 1+ 05/01/22 09:03: Sodium 142, Potassium 4.5, Chloride 103, Carbon Dioxide 32.0, Anion Gap 7, BUN 63 H, Creatinine 7.64 H*, Estim Creat Clear Calc 7.16, Est GFR (MDRD) Af Amer 7 L, Est GFR (MDRD) Non-Af 6 L, BUN/Creatinine Ratio 8.2 L, Glucose 105, Calcium 10.5 H, Troponin I High Sens 37 05/01/22 09:03: B-Natriuretic Peptide 2938.3 H 05/01/22 11:45: Troponin I High Sens 40 05/02/22 05:40: WBC 8.1, RBC 2.79 L, Hgb 8.4 L, Hct 26.6 L, MCV 95.3, MCH 30.1, MCHC 31.6 L, RDW Std Deviation 71.7 H, RDW Coeff of Destiny 20.9 H, Plt Count 144 L, MPV 8.9, Immature Gran % (Auto) 0.700, Neut % (Auto) 69.4, Lymph % (Auto) 17.7 L , [place] % (Auto) 10.0, Eos % (Auto) 2.1, Baso % (Auto) 0.1, Absolute Neuts (auto) 5.6, Absolute Lymphs (auto) 1.43, Nucleated RBC % 0.6, Anisocytosis 2+ 05/02/22 05:40: Sodium 137, Potassium 4.0, Chloride 101, Carbon Dioxide 31.0, Anion Gap 5, BUN 35 H, Creatinine 5.12 H, Estim Creat Clear Calc 10.68, Est GFR (MDRD) Af Amer 11 L, Est GFR (MDRD) Non-Af 9 L, BUN/Creatinine Ratio 6.8 L, Glucose 77, Calcium 7.9 L, Phosphorus 2.6, Magnesium 2.1, Total Bilirubin 0.50, AST 30, ALT 52, Alkaline Phosphatase 98, Total Protein 5.9 L, Albumin 2.8 L, Globulin 3.1, Albumin/Globulin Ratio 0.9 Micro: Microbiology 05/01/22 12:20 Nasal Secretion SARS-CoV-2 & FLU Antigen (Rapid) - Final Radiography Diagnostic Testing: Radiology Impression Chest X-Ray 05/01/22 08:49 IMPRESSION: Residual small bilateral pleural effusions with bibasilar atelectasis is worse at the left lung base superimposed on mild degree of CHF. There has been mild improvement as compared to prior study. Electronically Signed: Lopez Barraza MD at 10:15 EDT , Rhythm Strip Rhythm Strip: A-fib Rate: 90 Ectopy: None Physical Exam Const alert and oriented x3 General Appearance: cooperative HEENT normocephalic and head/scalp atraumatic Eyes EOMs intact bilaterally Neck supple Resp normal respiratory effort Resp Narrative: Diminished at the base, no wheezes appreciated Cardio regular rate Cardio Narrative: Irregular rhythm GI soft to palpation, non-tender and non-distended Extremity normal to inspection Extremity Narrative: Trace bilateral lower extremity pitting edema Skin no rashes or lesions noted Neuro moves all extremities Psych affect normal Assessment & Plan Assessment/Plan (1) Acute exacerbation of CHF (congestive heart failure): (2) Chronic kidney disease on chronic dialysis: (3) COPD (chronic obstructive pulmonary disease) with emphysema: (4) Chest pain: PLAN: Plan #1. Shortness of breath Likely secondary to volume overload in the setting of chronic heart failure and COPD Nephro consulted for hemodialysis Is still on her home requirements of 4 L of O2 with sats maintaining mid 90s Will get flu and COVID swab Chest x-ray appears to have worsening effusions Last echo with indeterminant diastolic function and EF 55%, however has a history of reduced EF of 40% and RVSP of 44. Was given Lasix in the ED but does not make urine, nephro consult as above Incentive spirometry Continue home albuterol, seems this is more consistent with fluid overload than acute exacerbation of COPD, concerned nebs if needed 05/02/2022: Improving after dialysis. Continue to monitor fluid status and optimize breathing status. Down a significant amount of weight after dialysis. Given significant improvement can begin DC planning tomorrow if continuing to improve #2. Atypical chest pain Troponins have been within normal limits, EKG with no signs of acute infarct Changes only with inspiration which increases the pain, far lateral and not substernal Possibly pleuritic chest pain secondary to uremia as BUN is 63 and usually is 20s to 30s 05/02: Was likely due to uremia as it completely resolved after dialysis. #3. Generalized weakness PT/OT consulted, will await rec #4. Paroxysmal A. fib Takes atenolol and is on chronic Eliquis #5. COPD Continue home O2 Advise smoking cessation #6. End-stage renal disease on hemodialysis Sunday, Sunday, Sunday I & O's, daily weights Renal diet Nephrology consult Dialysis 05/01/2022 #7. History of DVT On Eliquis #DVT ppx: Kelly Quezada MD Charges/Coding Visit Charges Inpatient E&M: 78500 Subs Hosp L2
[2022-05-02] MEDS: Acetaminophen 325 MG Tablet 650 MG PO (07:49)
[2022-05-02] MEDS: oxyCODONE 5 MG Tablet 10 MG PO ×2 (07:49→21:47)
[2022-05-02] MEDS: Carvedilol 25 MG Tablet PO ×2 (07:51→21:41)
[2022-05-02] MEDS: DULoxetine Hcl 30 MG Capsule PO (07:51)
[2022-05-02] MEDS: Pantoprazole Sodium 20 MG Tablet PO (07:51)
[2022-05-02] MEDS: APIXABAN 2.5 MG TABLET PO ×2 (07:51→21:41)
[2022-05-02] MEDS: Polyethylene Glycol 3350 17 GM PACKET PO (07:51)
[2022-05-02] MEDS: predniSONE 5 MG Tablet PO (07:51)
[2022-05-02] MEDS: amLODIPine 10 MG Tablet PO (07:51)
--- NOTE | 2022-05-02 14:16 | PN.RENAL_ITS ---
Subjective Subjective no new events Objective Data Objective Data Vital Signs: Vital Signs Temp Pulse Resp BP Pulse Ox O2 Del Method O2 Flow Rate 98.1 F 61 16 168/66 H 98 Nasal Cannula 4 05/02/22 07:48 05/02/22 11:00 05/02/22 07:48 05/02/22 07:48 05/02/22 09:45 05/02/22 09:45 05/02/22 11:30 Oxygen Flow Rate (L/min) 4 Oxygen Delivery Method Nasal Cannula Weight: 71.8 kg Body Mass Index (BMI) 23.8 Intake & Output: Intake and Output for Last 24 Hours 04/30/22 05/01/22 05/02/22 23:59 23:59 23:59 Output Total 5200 / 5200 Balance -5200 / -5200 Lab / Micro Data Result Diagrams: 05/02/22 05:40 05/02/22 05:40 Labs: Laboratory Results - last 24 hr 05/02/22 05:40: WBC 8.1, RBC 2.79 L, Hgb 8.4 L, Hct 26.6 L, MCV 95.3, MCH 30.1, MCHC 31.6 L, RDW Std Deviation 71.7 H, RDW Coeff of Destiny 20.9 H, Plt Count 144 L, MPV 8.9, Immature Gran % (Auto) 0.700, Neut % (Auto) 69.4, Lymph % (Auto) 17.7 L , [place] % (Auto) 10.0, Eos % (Auto) 2.1, Baso % (Auto) 0.1, Absolute Neuts (auto) 5.6, Absolute Lymphs (auto) 1.43, Nucleated RBC % 0.6, Anisocytosis 2+ 05/02/22 05:40: Sodium 137, Potassium 4.0, Chloride 101, Carbon Dioxide 31.0, Anion Gap 5, BUN 35 H, Creatinine 5.12 H, Estim Creat Clear Calc 10.68, Est GFR (MDRD) Af Amer 11 L, Est GFR (MDRD) Non-Af 9 L, BUN/Creatinine Ratio 6.8 L, Glucose 77, Calcium 7.9 L, Phosphorus 2.6, Magnesium 2.1, Total Bilirubin 0.50, AST 30, ALT 52, Alkaline Phosphatase 98, Total Protein 5.9 L, Albumin 2.8 L, Globulin 3.1, Albumin/Globulin Ratio 0.9 Micro: Microbiology 05/01/22 12:20 Nasal Secretion SARS-CoV-2 & FLU Antigen (Rapid) - Final Rhythm Strip Rhythm Strip: A-fib Rate: 90 Ectopy: None Physical Exam Narrative Alert awake oriented x 3 no obvious distress no pallor no icterus no JVD s1s2 no murmurs lungs clear abdomen soft no organomegaly no edema no cyanosis Assessment & Plan Assessment/Plan (1) ESRD on dialysis: PLAN: S/p dialysis yesterday. Feels better overall. Breathing is back to baseline. Chest tightness is resolved. Blood pressure is acceptable.
--- NOTE | 2022-05-02 14:31 | CASEMGMT ---
SW reviewed PT/OT evaluations. Therapy is recommending further therapy at discharge. Patient had an episode where she became dizzy and required more assist from therapy. SW met with patient. Patient is familiar to SW from past visits. Patient said she is going back to [facility] at discharge. SW asked about her episode she had with therapy and patient said she is used to that happening. SW asked patient if she feels like she needs rehab and patient said she will be fine and wants to go back to [facility]. SW told patient we can see how she does with therapy tomorrow and SW can talk with [facility]. 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
--- NOTE | 2022-05-02 16:10 | CHAPLAIN ---
Type of Pastoral Visit _x__ Initial Visit ___ Follow-up Visit ___ On-call Visit ___ General Patient Visit ___ Spiritual Assessment ___ Family Conference ___ Bereavement ___ Rapid Response ___ Code Blue ___ Other (describe below) Pastoral Care Referral From _x__ Patient ___ Family ___ Nurse ___ Physician ___ Java Developer Consultant ___ Pickle Cutter ___ Other (describe below) Sacrament/Intervention _x__ Active listening ___ Anointing ___ Church ___ Bereavement ___ Communion ___ Flaca exploration ___ ___ Life review _x__ Prayer ___ Reconciliation ___ Sacrament of Sick _x__ Supportive presence ___ Wedding ___ Other (describe below) Pastoral Comments patient has been seen in previous admissions and welcomes spiritual care support; pt is resting in bed and is talkative; pt seeks prayer support; pt is considering a move out of state to a niece's home when it can be worked out
[2022-05-02] MEDS: Gabapentin 300 MG Capsule PO (17:15)
[2022-05-02] MEDS: Mirtazapine 15 MG Tablet 45 MG PO (21:42)
[2022-05-02] MEDS: Montelukast 10 MG Tablet PO (21:42)
[2022-05-03] VITALS (21 sets, daily range): BP systolic 130–163; BP diastolic 49–84; PULSE 58–74; RESP 14–20; TEMP 36.1–37; O2SAT 94–100
[2022-05-03] MEDS: hydrALAZINE 50 MG Tablet 100 MG PO ×3 (05:35→21:14)
[2022-05-03 06:35] LABS: Absolute Lymphocyte Count 1.35 X10^3/uL (0.83-4.51); Absolute Neutrophil Count 5.6 X10^3/uL (2.0-7.7); Basophil# 0.02 X10^3/uL; Basophil% 0.2 % (0-1); Eosinophil# 0.14 X10^3/uL; Eosinophils% 1.7 % (0-5); Hematocrit 27.9 % (37-47); Hemoglobin 8.6 g/dL (12.0-15.0); Lymphocyte # 1.35 X10^3/ul (0.83-4.51); Lymphocyte % 16.9 % (19-41); Mean Corp Hgb Conc 30.8 g/dL (32-36); Mean Corpuscular Hgb 29.8 pg (27.0-32.0); Mean Corpuscular Volume 96.5 fL (81-99); Mean Platelet Vol. 9.1 fl (6.2-12.0); Monocyte# 0.83 X10^3/uL; Monocyte% 10.4 % (0-10); NRBC Flagged by Analyzer 0.4 % (0-5); Neutrophil # 5.61 X10^3/uL (2.7-7.7); Neutrophil % 70.1 % (47-70); POSITIVE MORPHOLOGY YES; Platelet Count 139 K/mm3 (150-450); RBC Distribution Width CV 21.3 % (11.6-14.6); RBC Distribution Width SD 74.5 fl (35.1-43.9); Red Blood Count 2.89 M/mm3 (4.2-5.4)
[2022-05-03 06:37] LABS: Differential Indicated SCAN CRITERIA MET
[2022-05-03 06:57] LABS: Anion Gap 7 (5-15); BUN 60 mg/dL (7-18); BUN/Creat Ratio 8.7 RATIO (10-20); Calcium,Total 8.1 mg/dL (8.5-10.1); Chloride 104 mmol/L (98-107); Creatinine, Serum 6.87 mg/dL (0.55-1.02); EST Glomerular Filtration Rate 6 mL/min (>60); Est Glom Filt Rate - Afr Amer 8 mL/min (>60); Estimated Creatinine Clearance 7.96 ml/min; Glucose 76 mg/dL (74-106); Potassium 4.4 mmol/L (3.5-5.1); Sodium Level 138 mmol/L (136-145)
[2022-05-03 07:00] LABS: Anisocytosis 2+; Platelet Estimate SLT DEC (ADEQ)
[2022-05-03] MEDS: oxyCODONE 5 MG Tablet 10 MG PO ×2 (08:19→21:18)
[2022-05-03] MEDS: Carvedilol 25 MG Tablet PO ×2 (09:47→21:14)
[2022-05-03] MEDS: DULoxetine Hcl 30 MG Capsule PO (09:47)
[2022-05-03] MEDS: predniSONE 5 MG Tablet PO (09:47)
[2022-05-03] MEDS: APIXABAN 2.5 MG TABLET PO ×2 (09:48→21:14)
[2022-05-03] MEDS: Midodrine HCl 5 MG Tablet 10 MG PO (09:49)
[2022-05-03] MEDS: amLODIPine 10 MG Tablet PO (09:49)
[2022-05-03] MEDS: Folic Acid/Vitamin B Comp W-C 1 Capsule 1 CAP PO (09:49)
[2022-05-03] MEDS: Polyethylene Glycol 3350 17 GM PACKET PO (09:49)
[2022-05-03] MEDS: Pantoprazole Sodium 20 MG Tablet PO (09:50)
--- NOTE | 2022-05-03 15:09 | PN.HOSP_ITS ---
Subjective Subjective DOS: 05/03/2022 CC: Back pain Reports chronic back pain which is her main complaint, breathing is so-so but is significantly better than presentation. No chest pain, does not feel particularly swollen. Denies other complaints today. Did discuss the recommendations from physical therapy about going to rehab prior to going back to assisted living and she said she felt more steady today, agreeable to reevaluation to assess needs Objective Data Objective Data Vital Signs: Vital Signs Temp Pulse Resp BP Pulse Ox O2 Del Method O2 Flow Rate 97.9 F 63 14 163/57 H 100 Nasal Cannula 3 05/03/22 09:44 05/03/22 11:43 05/03/22 09:44 05/03/22 09:44 05/03/22 09:44 05/03/22 09:44 05/03/22 09:44 Oxygen Flow Rate (L/min) 3 Oxygen Delivery Method Nasal Cannula Weight: 72.3 kg Body Mass Index (BMI) 23.8 Intake & Output: Intake and Output for Last 24 Hours 05/01/22 05/02/22 05/03/22 23:59 23:59 23:59 Intake Total 420 / 420 Output Total 5200 / 5200 Balance -5200 / -5200 420 / 420 Lab / Micro Data Result Diagrams: 05/03/22 06:19 05/03/22 06:19 Labs: Laboratory Results - last 24 hr 05/03/22 06:19: WBC 8.0, RBC 2.89 L, Hgb 8.6 L, Hct 27.9 L, MCV 96.5, MCH 29.8, MCHC 30.8 L, RDW Std Deviation 74.5 H, RDW Coeff of Destiny 21.3 H, Plt Count 139 L, MPV 9.1, Immature Gran % (Auto) 0.700, Neut % (Auto) 70.1 H, Lymph % (Auto) 16.9 L, [place] % (Auto) 10.4 H, Eos % (Auto) 1.7, Baso % (Auto) 0.2, Absolute Neuts (auto) 5.6, Absolute Lymphs (auto) 1.35, Nucleated RBC % 0.4, Platelet Estimate SLT DEC, Anisocytosis 2+ 05/03/22 06:19: Sodium 138, Potassium 4.4, Chloride 104, Carbon Dioxide 27.0, Anion Gap 7, BUN 60 H, Creatinine 6.87 H, Estim Creat Clear Calc 7.96, Est GFR (MDRD) Af Amer 8 L, Est GFR (MDRD) Non-Af 6 L, BUN/Creatinine Ratio 8.7 L, Glucose 76, Calcium 8.1 L Micro: Microbiology 05/01/22 12:20 Nasal Secretion SARS-CoV-2 & FLU Antigen (Rapid) - Final Rhythm Strip Rhythm Strip: A-fib Rate: 90 Ectopy: None Physical Exam Const alert and oriented x3 General Appearance: cooperative HEENT normocephalic and head/scalp atraumatic Eyes EOMs intact bilaterally Neck supple Resp normal respiratory effort Resp Narrative: Diminished at the base, no wheezes appreciated Cardio regular rate Cardio Narrative: Irregular rhythm GI soft to palpation, non-tender and non-distended Extremity normal to inspection Extremity Narrative: Trace bilateral lower extremity pitting edema Skin no rashes or lesions noted Neuro moves all extremities Psych affect normal Assessment & Plan Assessment/Plan (1) Acute exacerbation of CHF (congestive heart failure): (2) Chronic kidney disease on chronic dialysis: (3) COPD (chronic obstructive pulmonary disease) with emphysema: (4) Chest pain: PLAN: Plan #1. Shortness of breath Likely secondary to volume overload in the setting of chronic heart failure and COPD Nephro consulted for hemodialysis Is still on her home requirements of 4 L of O2 with sats maintaining mid 90s Will get flu and COVID swab Chest x-ray appears to have worsening effusions Last echo with indeterminant diastolic function and EF 55%, however has a history of reduced EF of 40% and RVSP of 44. Was given Lasix in the ED but does not make urine, nephro consult as above Incentive spirometry Continue home albuterol, seems this is more consistent with fluid overload than acute exacerbation of COPD, concerned nebs if needed 05/02/2022: Improving after dialysis. Continue to monitor fluid status and optimize breathing status. Down a significant amount of weight after dialysis. Given significant improvement can begin DC planning tomorrow if continuing to improve 05/03/2022: Still doing fairly well from a breathing standpoint, will be due for dialysis again #2. Atypical chest pain?resolved Troponins have been within normal limits, EKG with no signs of acute infarct Changes only with inspiration which increases the pain, far lateral and not substernal Possibly pleuritic chest pain secondary to uremia as BUN is 63 and usually is 20s to 30s 05/02: Was likely due to uremia as it completely resolved after dialysis. #3. Generalized weakness PT/OT consulted, will await rec 05/03/2022: Physical therapy felt she needed further rehab prior to returning to assisted living. Today she reports she feels she is getting around better and would prefer to go to assisted living if possible. Given the significant discrepancy and question of safety of discharge plan patient agreeable to reevaluation by physical therapy. Still felt that rehab is reasonable prior to returning to assisted living will pursue that route #4. Paroxysmal A. fib Takes atenolol and is on chronic Eliquis #5. COPD Continue home O2 Advise smoking cessation #6. End-stage renal disease on hemodialysis Sunday, Sunday, Sunday I & O's, daily weights Renal diet Nephrology consult Dialysis 05/01/2022 #7. History of DVT On Eliquis #DVT ppx: Kelly Quezada MD Charges/Coding Visit Charges Inpatient E&M: 54872 Subs Hosp L2
--- NOTE | 2022-05-03 16:31 | DCINST_ITS ---
Discharge Instructions Diet Discharge Diet: - (Renal diet) Activity Discharge Activity: Return to Normal Activity Follow Up Care Test Results: Test results from this visit will be discussed in further detail at your follow- up appointment, if applicable. Discharge Plan Admission Admit Date/Time: 05/01/22 11:27 Primary Reason for Your Visit: Shortness of breath and chest pain and generalized weakness Attending Provider: Nataliia Quezada Primary Care Provider: Yen Valdez BILLING MACHINE OPERATOR Consulting Providers: Soraida Sears Instructions Patient Instructions: ED Hemodialysis Additional Instructions / Restrictions: *Please take this with you to your next doctors appointment* ? You were admitted due to shortness of breath, weakness, and chest pain. You improved with dialysis ? Continue your regular outpatient dialysis schedule unless otherwise instructed by your diesel service apprentice ? Please continue to follow with your diesel service apprentice upon discharge ? Would advise taking 30 mg of Cymbalta instead of the 60 mg given your end- stage renal disease, recommend discussing this with your primary care physician. A prescription for the 30 mg of Cymbalta was sent to your preferred pharmacy on file -Please call your primary care provider's office upon discharge to schedule a hospital follow up within 1 week. -For any concerning signs or symptoms please call 911 or proceed to the nearest emergency department Discharge Orders/Prescriptions Prescriptions: New duloxetine 30 mg Capsule,Delayed Release(Dr/Ec) 30 mg PO DAILY 30 Days Qty: 30 0RF Continued hydralazine 100 MG tablet 100 mg PO TID amlodipine 10 mg Tablet 10 mg PO DAILY calcium acetate(phosphat bind) 667 mg Capsule 2,001 mg PO TID mirtazapine 45 mg Tablet 45 mg PO QHS Eliquis 2.5 mg Tablet 2.5 mg PO BID dicyclomine 20 mg tablet 20 mg PO TID Label Comments: Take 1 tablet by mouth three times daily before meals. gabapentin 600 mg tablet 600 mg PO MOWEFR Label Comments: 1 TABLET BY MOUTH EVERY (3P-6P AFTER DIALYSIS) DX: gabapentin 300 mg capsule 300 mg PO SUTUTHSA Label Comments: 1 CAPSULE BY MOUTH [id number] (3P-6P) DX:E omeprazole 20 mg capsule,delayed release(DR/EC) 20 mg PO DAILY Label Comments: 1 CAPSULE BY MOUTH ONCECDAILY DX: / NURSE TO REORDER RenaPlex-D 800 mcg-12.5 mg -2,000 unit tablet 1 tab PO MOWEFR Label Comments: TAKE 1 TABLET BY MOUTH EVERY DAY (ON DIALYSIS DAYS, TAKE AFTER DIALYSIS TREATMENT) dextromethorphan polistirex [Robitussin ER] 30 mg/5 mL suspension,extended rel 12 hr 10 ml PO Q12H PRN (Reason: cough) Qty: 89 0RF albuterol sulfate 2.5 mg /3 mL (0.083 %) Solution For Nebulization 2.5 mg inhalation Q2H PRN PRN (Reason: SOB/Wheezing) 30 Days Qty: 90 0RF montelukast [Singulair] 10 mg Tablet 10 mg PO QHS docusate sodium 100 mg Tablet 200 mg PO BID PRN PRN (Reason: constipation) lactulose 10 gram/15 mL Solution 30 ml PO QHS oxycodone 10 mg Tablet 10 mg PO Q6H PRN (Reason: Pain) guaifenesin [Mucinex] 600 mg Tablet Extended Release 12hr 400 mg PO TID PRN PRN (Reason: Congestion) polyethylene glycol 3350 [Miralax] 17 gram/dose powder 17 g PO DAILY Qty: 119 0RF carvedilol 25 mg Tablet 25 mg PO BID Qty: 0 0RF midodrine 10 mg tablet 10 mg PO MOWEFR prednisone 5 mg tablet 5 mg PO DAILY Hold Instructions: Resume on 03/31/22. Discontinued duloxetine 60 mg capsule,delayed release(DR/EC) 60 mg PO DAILY Referrals / Follow Up: Yen Valdez BILLING MACHINE OPERATOR, BILLING MACHINE OPERATOR-C [Primary Care Provider] - Within 1 Week Disposition Disposition (needs filled in before D/C Order can be placed): Assisted Living
--- NOTE | 2022-05-03 16:38 | PCM.DC.SUM ---
Providers Date of Admission: 05/01/22 Date of Discharge: 05/03/22 Primary Care Physician: Yen Valdez, EMEKA-Crystal Consultations 05/01/22 12:00 Consult: Nephrology Routine Consulting Provider: Soraida Sears Reason for Consult: ESRD, HD MWF, due today, effusions, appears overloaded EMERGENT Consult: No MD Notified: Yes Date Notified: 05/01/22 Time Notified: 11:48 Method of Notification: Answering Service Reason For Visit: INCREASING SHORTNESS OF BREATH Diagnosis Discharge Diagnosis (1) Acute exacerbation of CHF (congestive heart failure): Status: Chronic Code(s): I50.9 - Heart failure, unspecified (2) Chronic kidney disease on chronic dialysis: Status: Acute Code(s): N18.6 - End stage renal disease; Z99.2 - Dependence on renal dialysis (3) COPD (chronic obstructive pulmonary disease) with emphysema: Status: Acute Code(s): J43.9 - Emphysema, unspecified (4) Chest pain: Status: Acute Code(s): R07.9 - Chest pain, unspecified Plan #1. Shortness of breath #2. Atypical chest pain?resolved #3. Generalized weakness #4. Paroxysmal A. fib #5. COPD #6. End-stage renal disease on hemodialysis Sunday, Sunday, Sunday #7. History of DVT Medications at Discharge Home Medications hydralazine 100 mg tablet 100 mg PO TID BLOOD PRESSURE 03/31/20 amlodipine 10 mg tablet 10 mg PO DAILY blood pressure 11/30/20 calcium acetate(phosphat bind) 667 mg capsule 2,001 mg PO TID health maintenance 11/30/20 apixaban 2.5 mg tablet (Eliquis) 2.5 mg PO BID anticoagulant 01/08/21 mirtazapine 45 mg tablet 45 mg PO QHS health maintenance 01/08/21 dicyclomine 20 mg tablet 20 mg PO TID 02/26/21 gabapentin 300 mg capsule 300 mg PO SUTUTHSA NERVE PAIN 10/05/21 gabapentin 600 mg tablet 600 mg PO MOWEFR NERVE PAIN 10/05/21 omeprazole 20 mg capsule,delayed release 20 mg PO DAILY GERD 10/05/21 vit B,C-folic ac 800 mcg-zinc 12.5 mg-selen-D3 2,000 unit-vit E tablet (RenaPlex-D) 1 tab PO MOWEFR DIALYSIS 10/05/21 albuterol sulfate 2.5 mg/3 mL (0.083 %) solution for nebulization 2.5 mg (3 mL) inhalation Q2H PRN PRN SOB/Wheezing 30 days #90 mL 10/08/21 dextromethorphan polistirex 30 mg/5 mL oral susp ext.release 12hr (Robitussin ER) 10 ml PO Q12H PRN cough #89 mL 10/08/21 docusate sodium 100 mg tablet 200 mg PO BID PRN PRN constipation 10/25/21 guaifenesin 600 mg tablet, extended release 12 hr (Mucinex) 400 mg PO TID PRN PRN Congestion 10/25/21 lactulose 10 gram/15 mL oral solution 30 ml PO QHS 10/25/21 montelukast 10 mg tablet (Singulair) 10 mg PO QHS ALLERGIES 10/25/21 oxycodone 10 mg tablet 10 mg PO Q6H PRN Pain 10/25/21 polyethylene glycol 3350 17 gram/dose oral powder (Miralax) 17 g PO DAILY #119 grams 12/13/21 carvedilol 25 mg tablet 25 mg PO BID #0 tabs 12/21/21 midodrine 10 mg tablet 10 mg PO MOWEFR 02/23/22 prednisone 5 mg tablet 5 mg PO DAILY 02/23/22 duloxetine 30 mg capsule,delayed release 30 mg PO DAILY 30 days #30 caps 05/03/22 Hospital Course Procedures Dialysis Summary of Care Provided Minutes Spent on Discharge: 35 Hospital Course: ALEC GUTIERREZ, is a 72 F with a history of end-stage renal disease on HD Sunday and Sunday, DVT and paroxysmal A. fib on chronic anticoagulation, congestive heart failure, COPD, and tobacco use who presented to [facility] [place] 05/01/2022 with complaints of shortness of breath, left-sided chest pain, and generalized weakness. She had been in her usual health and was able to ambulate at the assisted living with a walker but was progressively weaker x1 week with worsening shortness of breath and then on the day of admission woke up with far lateral left-sided chest pain worse with inspiration prompting her to visit the emergency department. X-ray in the ED did appear to have worsening pleural effusions, BNP elevated. Did not appear to have ACS at the time. She had dialysis which resolved her chest pain, seem to have been pleuritic secondary to uremia as her BUN was much higher than her baseline, and her shortness of breath improved to baseline. She did very mean weak initially and physical therapy recommended SNF/TCU however on the day of discharge they worked with her again and felt she could go home with help which was her preference. Discharge after dialysis. Discharge instructions provided for patient as below: *Please take this with you to your next doctors appointment* ? You were admitted due to shortness of breath, weakness, and chest pain.? You improved with dialysis ? Continue your regular outpatient dialysis schedule unless otherwise instructed by your wilderness guide ? Please continue to follow with your wilderness guide upon discharge ? Would advise taking 30 mg of Cymbalta instead of the 60 mg given your end-stage renal disease, recommend discussing this with your primary care physician.? A prescription for the 30 mg of Cymbalta was sent to your preferred pharmacy on file -Please call your primary care provider's office upon discharge to schedule a hospital follow up within 1 week. -For any concerning signs or symptoms please call 911 or proceed to the nearest emergency department Physical Exam Const alert and oriented x3 General Appearance: cooperative HEENT normocephalic and head/scalp atraumatic Eyes EOMs intact bilaterally Neck supple Resp normal respiratory effort Resp Narrative: Diminished at the base, no wheezes appreciated Cardio regular rate Cardio Narrative: Irregular rhythm GI soft to palpation, non-tender and non-distended Extremity normal to inspection Extremity Narrative: Trace bilateral lower extremity pitting edema Skin no rashes or lesions noted Neuro moves all extremities Psych affect normal Weight / BMI Weight Weight: 72.3 kg Body Mass Index (BMI) 23.8 ABG / Lab / Microbiology Data Result Diagrams: 05/03/22 06:19 05/03/22 06:19 Laboratory: Laboratory Results - last 24 hr 05/03/22 06:19: WBC 8.0, RBC 2.89 L, Hgb 8.6 L, Hct 27.9 L, MCV 96.5, MCH 29.8, MCHC 30.8 L, RDW Std Deviation 74.5 H, RDW Coeff of Destiny 21.3 H, Plt Count 139 L, MPV 9.1, Immature Gran % (Auto) 0.700, Neut % (Auto) 70.1 H, Lymph % (Auto) 16.9 L, [place] % (Auto) 10.4 H, Eos % (Auto) 1.7, Baso % (Auto) 0.2, Absolute Neuts (auto) 5.6, Absolute Lymphs (auto) 1.35, Nucleated RBC % 0.4, Platelet Estimate SLT DEC, Anisocytosis 2+ 05/03/22 06:19: Sodium 138, Potassium 4.4, Chloride 104, Carbon Dioxide 27.0, Anion Gap 7, BUN 60 H, Creatinine 6.87 H, Estim Creat Clear Calc 7.96, Est GFR (MDRD) Af Amer 8 L, Est GFR (MDRD) Non-Af 6 L, BUN/Creatinine Ratio 8.7 L, Glucose 76, Calcium 8.1 L Microbiology: Microbiology 05/01/22 12:20 Nasal Secretion SARS-CoV-2 & FLU Antigen (Rapid) - Final D/C Instructions Discharge Diet: - (Renal diet) Meaningful Use Info Meaningful Use Diagnoses (Choose all that apply): CHF CHF NATALIA/ARB ordered at discharge?: No Reason NATALIA/ARB not ordered?: Worsening renal function Documented LVEF (%): 55 Discharge Plan Admission Admit Date/Time: 05/01/22 11:27 Primary Reason for Your Visit: Shortness of breath and chest pain and generalized weakness Attending Provider: Nataliia Quezada Primary Care Provider: Yen Valdez RESTAURANT SHIFT SUPERVISOR Consulting Providers: Soraida Sears Instructions Patient Instructions: ED Hemodialysis Additional Instructions / Restrictions: *Please take this with you to your next doctors appointment* ? You were admitted due to shortness of breath, weakness, and chest pain. You improved with dialysis ? Continue your regular outpatient dialysis schedule unless otherwise instructed by your wilderness guide ? Please continue to follow with your wilderness guide upon discharge ? Would advise taking 30 mg of Cymbalta instead of the 60 mg given your end-stage renal disease, recommend discussing this with your primary care physician. A prescription for the 30 mg of Cymbalta was sent to your preferred pharmacy on file -Please call your primary care provider's office upon discharge to schedule a hospital follow up within 1 week. -For any concerning signs or symptoms please call 911 or proceed to the nearest emergency department Discharge Orders/Prescriptions Prescriptions: New duloxetine 30 mg Capsule,Delayed Release(Dr/Ec) 30 mg PO DAILY 30 Days Qty: 30 0RF Continued hydralazine 100 MG tablet 100 mg PO TID amlodipine 10 mg Tablet 10 mg PO DAILY calcium acetate(phosphat bind) 667 mg Capsule 2,001 mg PO TID mirtazapine 45 mg Tablet 45 mg PO QHS Eliquis 2.5 mg Tablet 2.5 mg PO BID dicyclomine 20 mg tablet 20 mg PO TID Label Comments: Take 1 tablet by mouth three times daily before meals. gabapentin 600 mg tablet 600 mg PO MOWEFR Label Comments: 1 TABLET BY MOUTH EVERY (3P-6P AFTER DIALYSIS) DX: gabapentin 300 mg capsule 300 mg PO SUTUTHSA Label Comments: 1 CAPSULE BY MOUTH (3P-6P) DX:E omeprazole 20 mg capsule,delayed release(/EC) 20 mg PO DAILY Label Comments: 1 CAPSULE BY MOUTH ONCECDAILY DX: / NURSE TO REORDER RenaPlex-D 800 mcg-12.5 mg -2,000 unit tablet 1 tab PO MOWEFR Label Comments: TAKE 1 TABLET BY MOUTH EVERY DAY (ON DIALYSIS DAYS, TAKE AFTER DIALYSIS TREATMENT) dextromethorphan polistirex [Robitussin ER] 30 mg/5 mL suspension,extended rel 12 hr 10 ml PO Q12H PRN (Reason: cough) Qty: 89 0RF albuterol sulfate 2.5 mg /3 mL (0.083 %) Solution For Nebulization 2.5 mg inhalation Q2H PRN PRN (Reason: SOB/Wheezing) 30 Days Qty: 90 0RF montelukast [Singulair] 10 mg Tablet 10 mg PO QHS docusate sodium 100 mg Tablet 200 mg PO BID PRN PRN (Reason: constipation) lactulose 10 gram/15 mL Solution 30 ml PO QHS oxycodone 10 mg Tablet 10 mg PO Q6H PRN (Reason: Pain) guaifenesin [Mucinex] 600 mg Tablet Extended Release 12hr 400 mg PO TID PRN PRN (Reason: Congestion) polyethylene glycol 3350 [Miralax] 17 gram/dose powder 17 g PO DAILY Qty: 119 0RF carvedilol 25 mg Tablet 25 mg PO BID Qty: 0 0RF midodrine 10 mg tablet 10 mg PO MOWEFR prednisone 5 mg tablet 5 mg PO DAILY Hold Instructions: Resume on 03/31/22. Discontinued duloxetine 60 mg capsule,delayed release(DR/EC) 60 mg PO DAILY Referrals / Follow Up: Yen Valdez RESTAURANT SHIFT SUPERVISOR, RESTAURANT SHIFT SUPERVISOR-C [Primary Care Provider] - Within 1 Week Disposition Disposition (needs filled in before D/C Order can be placed): Assisted Living Charges/Coding Visit Charges Inpatient E&M: 85861 Disch Hosp
--- NOTE | 2022-05-03 17:14 | CM.ED ---
Social Work Telephone call from U Charge Nurse, Soy. Soy inquired about any discharge needs for patient as patient is being discharge today now. This mental health social worker noting that patient was being considered for [facility] placement. Soy reports that patient participated in therapy today and did much better and this is reason for thinking that patient is able to return to assisted living at [facility]. Patient is also wishing to return to home. This mental health social worker to patient room. Introduced self and mental health social worker role. Patient agreeable to speak with this mental health social worker. Patient confirms desire to return to [facility] today. Patient reports to not have transportation and to need transportation set up. This mental health social worker noting that patient will utilize [employer] for transportation due to insurance provider, [facility]. This mental health social worker also noting that patient is receiving dialysis. Patient reports to be familiar with patient dialysis process and has no concerns or questions with this. This mental health social worker inquired if patient would be open to a home health referral. Patient is agreeable to home health care and reports to have had home health care in the past when patient was living in [place]. This mental health social worker provided patient with list of home health companies. Patient unsure of which company. Plan will be for mental health social worker/RN Case Manger to follow up with patient tomorrow via phone call to set up home health care. This mental health social worker updated U charge nurse and press secretary that transportation will need to be set up through [employer]. This mental health social worker provided number for [employer] to charge nurse. PLAN: Discharge to [facility] with follow up for home health care. Joel JIMENEZ, JENIFER
--- NOTE | 2022-05-03 18:28 | DIALYSIS ---
Hemodialysis ended at 1735 1 hour early due to right hand cramping, ran on a 2K bath, tolerated well, UF 2000mL, CritLine maintained profile A / B, stopped pulling fluid and gave bolus but patient refused to try to complete tx and allow time for cramping to pass, pt adamant tx end, accessed via right chest tunneled dialysis catheter, worked well, ODETTE AVF noted, +bruit +thrill, not yet in use per patient
[2022-05-03] MEDS: Gabapentin 600 MG Tablet PO (19:00)
[2022-05-03] MEDS: Mirtazapine 15 MG Tablet 45 MG PO (21:14)
[2022-05-03] MEDS: Montelukast 10 MG Tablet PO (21:14)
[2022-05-04 00:48] VITALS: BP 132/49; PULSE 64; RESP 16; TEMP 36.1; O2SAT 99
== END 2022-05-04 02:45 | disposition home or self-care (01) | DRG 291 ==
LOC: ED 10:36 → PCU 11:12
PROVIDERS: Admitting Provider Internal Medicine; Emergency Provider Emergency Medicine; PCP Nurse Practitioner Adult Health; Visit Provider Internal Medicine
DX: I13.2 Hypertensive heart and chronic kidney disease with heart failure and with stage 5 chronic kidney disease, or end stage renal disease (principal); Z99.2 Dependence on renal dialysis; J43.9 Emphysema, unspecified; I50.22 Chronic systolic (congestive) heart failure; E11.22 Type 2 diabetes mellitus with diabetic chronic kidney disease; N18.6 End stage renal disease; J96.11 Chronic respiratory failure with hypoxia; I48.0 Paroxysmal atrial fibrillation; J90 Pleural effusion, not elsewhere classified; D63.1 Anemia in chronic kidney disease; E87.79 Other fluid overload; E78.00 Pure hypercholesterolemia, unspecified; F17.210 Nicotine dependence, cigarettes, uncomplicated; I25.2 Old myocardial infarction; R53.1 Weakness; Z99.81 Dependence on supplemental oxygen; Z79.01 Long term (current) use of anticoagulants; Z79.899 Other long term (current) drug therapy; Z86.718 Personal history of other venous thrombosis and embolism; Z86.73 Personal history of transient ischemic attack (TIA), and cerebral infarction without residual deficits
CPT/HCPCS: 36415; 71045; 80048; 80053; 83735; 83880; 84100; 84484; 85025; 87428; 90937; 93005; 94640; 96374; 96375; 97162; 97166; 97530; 97535; 97802; 97803; 99221; 99251; 99285; 99406; J7030; A4216; G0257; G0378; G0463; J1940

== ENCOUNTER 2022-05-19 06:40 | Observation (INO) | payer MEDICARE, MEDICAID, SELFPAY ==
[2022-05-19] VITALS (27 sets, daily range): BP systolic 125–179; BP diastolic 50–113; PULSE 60–95; RESP 12–25; TEMP 36.3–37.2; O2SAT 88–99; BMI 25.8; BMI 24.0
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
[2022-05-19 07:01] LABS: Absolute Neutrophil Count 3.9 X10^3/uL (2.0-7.7); Basophil# 0.04 X10^3/uL; Basophil% 0.7 % (0-1); Eosinophil# 0.16 X10^3/uL; Eosinophils% 2.6 % (0-5); Hematocrit 28.8 % (37-47); Hemoglobin 8.9 g/dL (12.0-15.0); Lymphocyte % 22.8 % (19-41); Mean Corp Hgb Conc 30.9 g/dL (32-36); Mean Corpuscular Hgb 30.3 pg (27.0-32.0); Mean Platelet Vol. 9.3 fl (6.2-12.0); Monocyte# 0.58 X10^3/uL; Monocyte% 9.4 % (0-10); NRBC Flagged by Analyzer 0 % (0-5); Neutrophil # 3.93 X10^3/uL (2.7-7.7); POSITIVE MORPHOLOGY YES; Platelet Count 237 K/mm3 (150-450); RBC Distribution Width CV 18.6 % (11.6-14.6); RBC Distribution Width SD 67.5 fl (35.1-43.9); Red Blood Count 2.94 M/mm3 (4.2-5.4); White Blood Count 6.1 K/mm3 (4.4-11.0)
[2022-05-19] MEDS: Ipratropium/Albuterol Sulfate 3 ML AMPUL.NEB INHALATION ×6 (07:02→23:14)
[2022-05-19] MEDS: Albuterol 2.5 MG/3 ML VIAL.NEB. INHALATION ×2 (07:02)
[2022-05-19 07:09] LABS: Differential Indicated SCAN CRITERIA MET
[2022-05-19 07:18] LABS: Anisocytosis 2+; Differential Comment SCANNED; Polychromasia RARE
[2022-05-19 07:19] LABS: Macrocytosis 1+; Microcytosis 1+
[2022-05-19] MEDS: MethylPREDNISolone 125 MG/2 ML Vial IV (07:19)
[2022-05-19 07:21] LABS: Anion Gap 6 (5-15); BUN 35 mg/dL (7-18); BUN/Creat Ratio 5.9 RATIO (10-20); Calcium,Total 9.8 mg/dL (8.5-10.1); Chloride 97 mmol/L (98-107); EST Glomerular Filtration Rate 8 mL/min (>60); Est Glom Filt Rate - Afr Amer 9 mL/min (>60); Estimated Creatinine Clearance 9.27 ml/min; Glucose 128 mg/dL (74-106); Potassium 4.4 mmol/L (3.5-5.1); Sodium Level 136 mmol/L (136-145); Troponin-I HS 28 pg/mL (3.0-54.0)
--- NOTE | 2022-05-19 07:35 | RAD_ITS ---
STUDY: X-RAY CHEST REASON FOR EXAM: Female, 72 years old. chest pain TECHNIQUE: Single AP portable view of the chest. COMPARISON: 05/01/2022 FINDINGS: Tunneled right internal jugular dialysis catheter which is unchanged. The lungs are clear and expanded. No change in small bilateral pleural effusions with bibasilar atelectasis. There is moderate cardiac enlargement. Normal mediastinum and farhan. There is prominence of the pulmonary hilar arteries and peripheral pulmonary arteries, consistent with congestive heart failure (CHF). Normal visualized aortic arch and descending thoracic aorta. Normal visualized thoracic spine. Normal visualized ribs, clavicles, and shoulders. There is no demonstrated abnormality of the visualized soft tissue structures of the upper abdomen. RAD/Chest 1 View (Portable) IMPRESSION: Mild volume overload with small bilateral pleural effusions. Electronically Signed: Peña Linder MD at 8:01 EST ,
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
[2022-05-19] MEDS: hydrALAZINE 50 MG Tablet 100 MG PO ×2 (11:40→20:48)
[2022-05-19] MEDS: Carvedilol 25 MG Tablet PO ×2 (11:40→20:49)
[2022-05-19] MEDS: oxyCODONE 5 MG Tablet 10 MG PO (11:40)
[2022-05-19] MEDS: amLODIPine 10 MG Tablet PO (12:20)
[2022-05-19] MEDS: DULoxetine Hcl 60 MG Capsule PO (12:20)
[2022-05-19] MEDS: Calcium Acetate 667 MG Capsule 2001 MG PO ×2 (12:21→17:08)
--- NOTE | 2022-05-19 14:01 | CASEMGMT ---
Patient told physician that she does not want to go back to [facility] as she cannot get her nebulizer treatments at night because there is no nurse. MARIA GUADALUPE called [facility] and spoke with Adele, a nurse. SW asked her about this information. Adele said that patient can do her own treatments as everything is in her room. Adele also said patient has been telling them that she has been doing them herself. SW thanked her and SW will notify physician as well as talk with patient. Evy GONZALEZ
[2022-05-19] MEDS: 0.9% Saline Lock 10 ML Syringe IV ×3 (14:36→20:49)
[2022-05-19] MEDS: Midodrine HCl 5 MG Tablet 10 MG PO (15:03)
--- NOTE | 2022-05-19 15:05 | CASEMGMT ---
SW spoke with patient. SW and patient are familiar with one another from past admissions. SW asked patient about her saying she did not want to return to [facility]. Patient said that is not true she did not say that. Patient said a nurse told her that she should find a better place to live. Patient said she doesn't know where else she would go. Patient confirmed her plan is to return to [facility]. SW will follow as patient's PT/OT will need to be reviewed to make sure she is safe to return to NH. Plan: d/c back to [facility] as long as patient does okay with therapy. Evy Paredes [employer]
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
[2022-05-19] MEDS: Gabapentin 600 MG Tablet PO (17:07)
[2022-05-19] MEDS: Dicyclomine 10 MG Capsule 20 MG PO (17:08)
[2022-05-19] MEDS: Heparin 10,000 UNITS/10 ML Vial 3200 UNITS IV (19:00)
--- NOTE | 2022-05-19 19:16 | DIALYSIS ---
hemodialysis completed x 3.5 hrs. Access via right chest HD cath. dressing changed. Net UF 3000ml. pt stable post tx. See HD flowsheet on chart.
[2022-05-19] MEDS: guaiFENesin 1,200 MG Tablet 1200 MG PO (20:48)
[2022-05-19] MEDS: Montelukast 10 MG Tablet PO (20:49)
[2022-05-19] MEDS: APIXABAN 2.5 MG TABLET (WCH) PO (20:50)
[2022-05-19] MEDS: Mirtazapine 15 MG Tablet 45 MG PO (20:50)
[2022-05-20] VITALS (16 sets, daily range): BP systolic 153–167; BP diastolic 58–66; PULSE 65–75; RESP 16–20; TEMP 36.3–37.5; O2SAT 96–99
[2022-05-20] MEDS: oxyCODONE 5 MG Tablet 10 MG PO ×2 (00:21→12:53)
[2022-05-20] MEDS: Ipratropium/Albuterol Sulfate 3 ML AMPUL.NEB INHALATION ×4 (03:21→15:06)
[2022-05-20 06:51] LABS: Absolute Lymphocyte Count 0.76 X10^3/uL (0.83-4.51); Absolute Neutrophil Count 9.2 X10^3/uL (2.0-7.7); Basophil# 0.01 X10^3/uL; Basophil% 0.1 % (0-1); Hematocrit 25.7 % (37-47); Hemoglobin 7.8 g/dL (12.0-15.0); Lymphocyte # 0.76 X10^3/ul (0.83-4.51); Lymphocyte % 7.2 % (19-41); Mean Corp Hgb Conc 30.4 g/dL (32-36); Mean Corpuscular Hgb 28.9 pg (27.0-32.0); Mean Corpuscular Volume 95.2 fL (81-99); Mean Platelet Vol. 8.9 fl (6.2-12.0); Monocyte% 4.7 % (0-10); NRBC Flagged by Analyzer 0 % (0-5); Neutrophil # 9.22 X10^3/uL (2.7-7.7); Neutrophil % 87.3 % (47-70); Platelet Count 196 K/mm3 (150-450); RBC Distribution Width CV 18.1 % (11.6-14.6); RBC Distribution Width SD 63.1 fl (35.1-43.9); White Blood Count 10.6 K/mm3 (4.4-11.0)
[2022-05-20] MEDS: hydrALAZINE 50 MG Tablet 100 MG PO ×2 (07:07→12:52)
[2022-05-20] MEDS: 0.9% Saline Lock 10 ML Syringe IV ×2 (07:08→12:53)
[2022-05-20] MEDS: Dicyclomine 10 MG Capsule 20 MG PO ×3 (07:08→15:48)
[2022-05-20 07:11] LABS: Anion Gap 7 (5-15); BUN 25 mg/dL (7-18); Calcium,Total 8.5 mg/dL (8.5-10.1); Chloride 99 mmol/L (98-107); Creatinine, Serum 4.19 mg/dL (0.55-1.02); EST Glomerular Filtration Rate 11 mL/min (>60); Est Glom Filt Rate - Afr Amer 14 mL/min (>60); Estimated Creatinine Clearance 13.06 ml/min; Glucose 113 mg/dL (74-106); Magnesium 2.1 mg/dL (1.6-2.6); Potassium 4.5 mmol/L (3.5-5.1); Sodium Level 136 mmol/L (136-145)
[2022-05-20 07:20] LABS: Phosphorus 2.9 mg/dL (2.5-4.9)
--- NOTE | 2022-05-20 09:56 | DS.PCM_ITS ---
Providers Date of Admission: 05/19/22 Date of Discharge: 05/20/22 Primary Care Physician: Yen Valdez, JOE Consultations 05/19/22 10:50 Consult: Nephrology Routine Consulting Provider: Brittani Byrne Reason for Consult: ESRD-HD EMERGENT Consult: No MD Notified: Yes Date Notified: 05/19/22 Time Notified: 10:24 Method of Notification: Verbal Reason For Visit: AECOPD Diagnosis Discharge Diagnosis (1) ESRD on dialysis: Status: Acute Code(s): N18.6 - End stage renal disease; Z99.2 - Dependence on renal dialysis (2) Hypertension: Status: Chronic Code(s): I10 - Essential (primary) hypertension (3) Anemia in chronic kidney disease: Status: Chronic Code(s): N18.9 - Chronic kidney disease, unspecified; D63.1 - Anemia in chronic kidney disease (4) Acute exacerbation of chronic obstructive pulmonary disease: Status: Chronic Code(s): J44.1 - Chronic obstructive pulmonary disease with (acute) exacerbation Medications at Discharge Home Medications hydralazine 100 mg tablet 100 mg PO TID BLOOD PRESSURE 03/31/20 amlodipine 10 mg tablet 10 mg PO DAILY blood pressure 11/30/20 calcium acetate(phosphat bind) 667 mg capsule 2,001 mg PO TIDCM health maintenance 11/30/20 apixaban 2.5 mg tablet (Eliquis) 2.5 mg PO BID anticoagulant 01/08/21 mirtazapine 45 mg tablet 45 mg PO QHS INSOMNIA 01/08/21 dicyclomine 20 mg tablet 20 mg PO TID 02/26/21 gabapentin 300 mg capsule 300 mg PO SUTUTHSA NERVE PAIN 10/05/21 gabapentin 600 mg tablet 600 mg PO MOWEFR NERVE PAIN 10/05/21 omeprazole 20 mg capsule,delayed release 20 mg PO DAILY GERD 10/05/21 vit B,C-folic ac 800 mcg-zinc 12.5 mg-selen-D3 2,000 unit-vit E tablet (RenaPlex-D) 1 tab PO MOWEFR DIALYSIS 10/05/21 docusate sodium 100 mg tablet 200 mg PO BID PRN PRN constipation 10/25/21 lactulose 10 gram/15 mL oral solution 30 ml PO QHS PRN Constipation 10/25/21 montelukast 10 mg tablet (Singulair) 10 mg PO QHS ALLERGIES 10/25/21 oxycodone 10 mg tablet 10 mg PO BID PRN Pain 10/25/21 carvedilol 25 mg tablet 25 mg PO BID #0 tabs 12/21/21 midodrine 10 mg tablet 10 mg PO MOWEFR 02/23/22 prednisone 5 mg tablet 5 mg PO DAILY STEROID 02/23/22 duloxetine 60 mg capsule,delayed release 60 mg PO DAILY DEPRESSION 05/19/22 fluticasone 500 mcg-salmeterol 50 mcg/dose blistr powdr for inhalation (Advair Diskus) 1 inh inhalation BID 05/19/22 polyethylene glycol 3350 17 gram/dose oral powder (Miralax) 17 g PO DAILY CONSTIPATION 05/19/22 tiotropium bromide 2.5 mcg/actuation mist for inhalation (Spiriva Respimat) 2 puff inhalation DAILY 05/19/22 albuterol sulfate 2.5 mg/3 mL (0.083 %) solution for nebulization 2.5 mg (3 mL) inhalation Q2H PRN PRN SOB/Wheezing 30 days #90 mL 05/20/22 ipratropium 0.5 mg-albuterol 3 mg (2.5 mg base)/3 mL nebulization soln 3 ml inhalation Q4H.RT PRN shortness of breath or wheezing #180 mL 05/20/22 prednisone 10 mg tablet 10 mg PO DAILY #40 tabs 05/20/22 Hospital Course Operations None Procedures Dialysis and EKG Summary of Care Provided Minutes Spent on Discharge: 25 Hospital Course: ALEC GUTIERREZ, is a 72 F who presented emergency department [facility] on 05/19/2022 complaining of shortness of breath.? Patient stated she felt fine the day prior to admission however during the evening she developed acute shortness of breath.? She reported to me that she was not able to get her aerosol treatments at her assisted living facility through the night because they told her there was no nurse however when we called the facility we were told that she is able to do her own treatments and her room and everything is there for her to do so.? The nurse there also reported that she had been telling them that she was doing them herself.? She denied any fever, chills, nausea, vomiting, cough but did complain of some intermittent wheezing and as noted shortness of breath.? She has frequent COPD exacerbations and issues with volume overload for which she is admitted on a regular basis. Vital signs on presentation showed temperature of 98, heart rate 95, blood pressure 150/113, respiratory rate was 20-25 and oxygen saturations were 94% on 3 L nasal cannula which is her baseline.? On exam she was significantly wheezy and had some pursed lip breathing with tachypnea but no hypoxia on her baseline supplemental home O2.? CBC shows chronic stable anemia related to her renal disease but was otherwise unremarkable with no left shift.? Chemistry panel was overall unremarkable showing chronic end-stage renal disease but her electrolytes were stable and her initial troponin was 28.? Checks x-ray appeared stable when compared to previous demonstrating mild volume overload with chronic small bilateral pleural effusions.? EKG was normal sinus rhythm without any ST-T wave changes consistent with acute ischemia. In the emergency department she was treated with IV Solu-Medrol 125 mg x 1 dose and 2 aerosols and maintained on her home supplemental oxygen.? Unfortunately her symptoms did not improve and she did not feel she would be able to go home and go to her outpatient dialysis ther efore request for admission was made. She was admitted to the PCU and monitored on telemetry and initiated on BiPAP. We gave her IV steroids, scheduled aerosols, Mucinex, incentive spirometry and Pep therapy with Acapella as well as dialysis was performed in the afternoon on 05/19/2022. By the morning of 05/20/2022. The patient was back on her baseline oxygen without any signs of respiratory distress. She had no further pursed lip breathing and her wheeze had resolved. Patient indicated she was desiring to go home, but did request a refill for her nebulizer machine. Prescription for DuoNeb solution as well as prednisone taper was sent to the pharmacy and delivered to her prior to disc harge. Instructed her to hold her home 5 mg prednisone dose until she completed her taper and then restart following completion. She was discharged back to her assisted living facility on 05/20/2022 in stable condition. Discharge diagnoses: Chronic hypoxic respiratory failure with shortness of breath secondary to COPD exacerbation Dyspnea Acute exacerbation of COPD End-stage renal disease-HD dependent Compensated HFpEF COPD GERD Chronic constipation Neuropathy Hypertension PAF Chronic normocytic anemia secondary to renal disease Depression Anxiety History of DVT Physical Exam Const alert, oriented x3, no apparent distress and well nourished Constitutional Narrative: Older -[place] female sitting up in bed, watching television and appears comfortable no signs of respiratory distress and currently on her baseline home O2 supplementation General Appearance: cooperative, comfortable, well kempt and well developed Orientation / Consciousness: awake, oriented to person, oriented to place and or iented to time Exam Limitations: no limitations HEENT normocephalic, head/scalp atraumatic and hearing grossly normal bilaterally HEENT Narrative: Edentulous, Mallampati 2, no thrush Eyes PERRL and EOMs intact bilaterally Eyes Narrative: Mild conjunctival pallor, no scleral icterus Neck no lymphadenopathy and supple Neck Narrative: Trachea midline, no thyroid enlargement Resp normal respiratory effort, no retractions, no use of accessory muscles and clear to auscultation bilaterally Resp Narrative: Diffusely diminished but wheeze has resolved Auscultation: Negative for crackles, rhonchi or wheezes Cardio regular rate, regular rhythm, S1 normal heart sound, S2 normal heart sound, no murmurs, no rub, no gallops and no clicks GI normal to inspection, nondistended, normoactive bowel sounds, soft to palpation and non-tender Extremity no clubbing, cyanosis or edema Extremity Narrative: 2+ pedal pulses Skin no rashes or lesions noted, no wounds, skin turgor normal, no jaundice, no petechiae and no mottling Neuro oriented x3, CN's II-XII intact bilaterally, moves all extremities and no focal motor deficits Neuro Narrative: Bilateral lower extremity neuropathy, speech is overall normal however she does have some conversational dyspnea Psych affect normal Psych Narrative: Calm, very appropriate, pleasant Weight / BMI Weight Weight: 74 kg Body Mass Index (BMI) 24.0 ABG / Lab / Microbiology Data Result Diagrams: 05/20/22 06:43 05/20/22 06:43 Laboratory: Laboratory Results - last 24 hr 05/20/22 06:43: Sodium 136, Potassium 4.5, Chloride 99, Carbon Dioxide 30.0, Anion Gap 7, BUN 25 H, Creatinine 4.19 H, Estim Creat Clear Calc 13.06, Est GFR (MDRD) Af Amer 14 L, Est GFR (MDRD) Non-Af 11 L, BUN/Creatinine Ratio 6.0 L, Glucose 113 H, Calcium 8.5, Magnesium 2.1 05/20/22 06:43: WBC 10.6, RBC 2.70 L, Hgb 7.8 L, Hct 25.7 L, MCV 95.2, MCH 28.9, MCHC 30.4 L, RDW Std Deviation 63.1 H, RDW Coeff of Destiny 18.1 H, Plt Count 196, MPV 8.9, Immature Gran % (Auto) 0.700, Neut % (Auto) 87.3 H, Lymph % (Auto) 7.2 L, Roberts % (Auto) 4.7, Eos % (Auto) 0.0, Baso % (Auto) 0.1, Absolute Neuts (auto) 9.2 H, Absolute Lymphs (auto) 0.76 L, Nucleated RBC % 0 05/20/22 06:43: Phosphorus 2.9 Microbiology: Microbiology 05/19/22 15:15 Interface Orders Respiratory Panel (PCR) - Final Human [place] 05/19/22 11:45 Nasal Secretion SARS-CoV-2 & FLU Antigen (Rapid) - Final D/C Instructions Discharge Diet: Low fat / Low cholesterol, 8 Cup Fluid Restriction, 2000 mg Sodium Diet and Renal Diet Discharge Activity: Return to Normal Activity Meaningful Use Info Meaningful Use Diagnoses (Choose all that apply): None applicable Discharge Plan Admission Admit Date/Time: 05/19/22 10:19 Primary Reason for Your Visit: Shortness of Breath Attending Provider: Cailin Nichols Primary Care Provider: Yen Valdez PATIENT FINANCIAL COORDINATOR Consulting Providers: Brittani Byrne Instructions Additional Instructions / Restrictions: 1. Please allow patient's to use her nebulizer anytime she requires in her room [id number] Discharge Orders/Prescriptions Prescriptions: New ipratropium-albuterol 0.5 mg-3 mg(2.5 mg base)/3 mL Solution For Nebulization 3 ml inhalation Q4H.RT PRN (Reason: shortness of breath or wheezing) Qty: 180 1RF prednisone 10 mg tablet 10 mg PO DAILY Qty: 40 0RF Rx Instructions: 4 tablets x 4 days, 3 tablets x 4 days, 2 tablets x 4 days, 1 tablet x 4 days Continued hydralazine 100 MG tablet 100 mg PO TID amlodipine 10 mg Tablet 10 mg PO DAILY calcium acetate(phosphat bind) 667 mg Capsule 2,001 mg PO TIDCM mirtazapine 45 mg Tablet 45 mg PO QHS Eliquis 2.5 mg Tablet 2.5 mg PO BID dicyclomine 20 mg tablet 20 mg PO TID Label Comments: Take 1 tablet by mouth three times daily before meals. gabapentin 600 mg tablet 600 mg PO MOWEFR Label Comments: 1 TABLET BY MOUTH EVERY (3P-6P AFTER DIALYSIS) DX: gabapentin 300 mg capsule 300 mg PO SUTUTHSA Label Comments: 1 CAPSULE BY MOUTH (3P-6P) DX:E omeprazole 20 mg capsule,delayed release(DR/EC) 20 mg PO DAILY Label Comments: 1 CAPSULE BY MOUTH ONCECDAILY DX: / NURSE TO REORDER RenaPlex-D 800 mcg-12.5 mg -2,000 unit tablet 1 tab PO MOWEFR Label Comments: TAKE 1 TABLET BY MOUTH EVERY DAY (ON DIALYSIS DAYS, TAKE AFTER DIALYSIS TREATMENT) montelukast [Singulair] 10 mg Tablet 10 mg PO QHS docusate sodium 100 mg Tablet 200 mg PO BID PRN PRN (Reason: constipation) lactulose 10 gram/15 mL Solution 30 ml PO QHS PRN (Reason: Constipation) oxycodone 10 mg Tablet 10 mg PO BID PRN (Reason: Pain) carvedilol 25 mg Tablet 25 mg PO BID Qty: 0 0RF midodrine 10 mg tablet 10 mg PO MOWEFR fluticasone propion-salmeterol [Advair Diskus] 500-50 mcg/dose Blister With Device 1 inh INHALATION BID Spiriva Respimat 2.5 mcg/actuation Mist 2 puff INHALATION DAILY duloxetine 60 mg capsule,delayed release(DR/EC) 60 mg PO DAILY polyethylene glycol 3350 [Miralax] 17 gram/dose powder 17 g PO DAILY albuterol sulfate 2.5 mg /3 mL (0.083 %) Solution For Nebulization 2.5 mg inhalation Q2H PRN PRN (Reason: SOB/Wheezing) 30 Days Qty: 90 1RF Held prednisone 5 mg tablet 5 mg PO DAILY Hold Instructions: Restart once once tapering prednisone dose is completed Referrals / Follow Up: Yen Valdez PATIENT FINANCIAL COORDINATOR, PATIENT FINANCIAL COORDINATOR-C [Primary Care Provider] - Within 2 Weeks Disposition Disposition (needs filled in before D/C Order can be placed): Assisted Living Charges/Coding Visit Charges OBSV E&M: 57080 Observation care discharge
[2022-05-20] MEDS: APIXABAN 2.5 MG TABLET (WCH) PO (10:07)
[2022-05-20] MEDS: DULoxetine Hcl 60 MG Capsule PO (10:07)
[2022-05-20] MEDS: Pantoprazole Sodium 20 MG Tablet PO (10:07)
[2022-05-20] MEDS: guaiFENesin 1,200 MG Tablet 1200 MG PO (10:07)
[2022-05-20] MEDS: amLODIPine 10 MG Tablet PO (10:08)
[2022-05-20] MEDS: Carvedilol 25 MG Tablet PO (10:08)
[2022-05-20] MEDS: Calcium Acetate 667 MG Capsule 2001 MG PO ×2 (10:08→12:52)
--- NOTE | 2022-05-20 12:38 | CASEMGMT ---
Pt walked on her 4liters and does not qualify for increased home oxygen. Per nursing, pt ambulated without difficulty. This RN CM to room and pt states no concerns with going home at time of discharge. Pt declines need for any further therapy and is aware to wear her 4 liters with ambulation and that she is able to do own breathing treatments at her AL. Pt voices no further questions/concerns/needs. SStaten REGGIE CM
--- NOTE | 2022-05-20 16:03 | NURSING ---
Report given to [facility] ambulance transport as they will transport pt back to [facility] for DC.
--- NOTE | 2022-05-20 16:08 | NURSING ---
Report called to CHRIST Cutler from [facility], will assume care of pt when she arrives
== END 2022-05-20 10:01 | disposition home or self-care (01) ==
LOC: ED 07:18 → PCU 10:26
PROVIDERS: Admitting Provider Internal Medicine; Emergency Provider Emergency Medicine; PCP Nurse Practitioner Adult Health; Visit Provider Internal Medicine
DX: J44.1 Chronic obstructive pulmonary disease with (acute) exacerbation (principal); I13.2 Hypertensive heart and chronic kidney disease with heart failure and with stage 5 chronic kidney disease, or end stage renal disease; Z99.2 Dependence on renal dialysis; I50.32 Chronic diastolic (congestive) heart failure; E11.22 Type 2 diabetes mellitus with diabetic chronic kidney disease; E11.40 Type 2 diabetes mellitus with diabetic neuropathy, unspecified; N18.6 End stage renal disease; J96.11 Chronic respiratory failure with hypoxia; I48.0 Paroxysmal atrial fibrillation; D63.1 Anemia in chronic kidney disease; F41.9 Anxiety disorder, unspecified; K59.09 Other constipation; Z79.01 Long term (current) use of anticoagulants; G89.29 Other chronic pain; K21.9 Gastro-esophageal reflux disease without esophagitis; E78.00 Pure hypercholesterolemia, unspecified; F32.A Depression, unspecified; I25.10 Atherosclerotic heart disease of native coronary artery without angina pectoris; Z79.899 Other long term (current) drug therapy; Z79.51 Long term (current) use of inhaled steroids; Z79.52 Long term (current) use of systemic steroids; F17.210 Nicotine dependence, cigarettes, uncomplicated
CPT/HCPCS: 36415; 71045; 80048; 83735; 84100; 84484; 85025; 87428; 87633; 90937; 93005; 94002; 94640; 94667; 94762; 96374; 96375; 96376; 97162; 97165; 99218; 99285; J7030; A4216; G0257; G0378

== ENCOUNTER 2022-05-31 06:39 | Emergency (ER) | payer MEDICARE, MEDICAID, SELFPAY ==
[2022-05-31 06:40] VITALS: PULSE 73; RESP 22; TEMP 36.5; O2SAT 98; BMI 25.7
[2022-05-31 06:46] VITALS: O2SAT 98
--- NOTE | 2022-05-31 06:46 | RAD_ITS ---
INDICATION: fall/trauma -- patient was getting out of elevator ran out of oxygen collapsed and fell left hip pain, painful upon touching EXAMINATION/TECHNIQUE: X-RAY - LEFT XR Femur Min 2 Views 4 VIEWS COMPARISON: February 25, 2020 and September 28, 2021 FINDINGS: SOFT TISSUES: No soft tissue swelling or gas. No radiopaque foreign body. BONES/JOINTS: There is a stable left hip arthroplasty. The alignment is unchanged. No acute fracture or dislocation is visualized. There is a stable sclerotic focus within the distal femur with well-defined margins involving the distal diaphysis and epiphysis. RAD/Femur Min 2 Views IMPRESSION: Stable left hip arthroplasty. Stable sclerotic focus within the distal femur may reflect a bone infarct. Electronically Signed: Arin Allen MD at 9:12 EST ,
--- NOTE | 2022-05-31 06:46 | RAD_ITS ---
INDICATION: fall/trauma EXAMINATION/TECHNIQUE: X-RAY - LEFT XR Shoulder Min 2 Views COMPARISON: None. FINDINGS: SOFT TISSUES: No soft tissue swelling or gas. No radiopaque foreign body. BONES/JOINTS: No acute fracture or subluxation.. Normal alignment. There are degenerative changes of the acromioclavicular joint. No sclerotic or destructive changes observed. RAD/Shoulder min 2 Views IMPRESSION: Degenerative changes of the acromioclavicular joint. Electronically Signed: Arin Allen MD at 8:38 EST ,
--- NOTE | 2022-05-31 06:46 | RAD_ITS ---
INDICATION: fall EXAMINATION/TECHNIQUE: X-RAY - XR Chest 1 View COMPARISON: May 19, 2022 FINDINGS: LINES/DEVICES: There is a right-sided central venous catheter terminating within the expected region of the superior vena cava. LUNGS: There are bilateral pleural effusions that are grossly stable. There are bilateral prominent interstitial markings. MEDIASTINUM AND CARDIOVASCULAR STRUCTURES: Cardiac silhouette not enlarged. Central airways and mediastinal contour are unremarkable. BONES AND SOFT TISSUES: Unremarkable. RAD/Chest 1 View (Portable) IMPRESSION: Stable bilateral pleural effusions, cannot exclude associated bibasilar consolidation. Prominent interstitial markings, a nonspecific finding may be secondary to edema and/or infectious process. Electronically Signed: Arin Allen MD at 8:40 EST ,
--- NOTE | 2022-05-31 06:46 | RAD_ITS ---
INDICATION: fall/trauma EXAMINATION/TECHNIQUE: X-RAY - XR Pelvis 1 or 2 Views COMPARISON: CT dated December 13, 2021 FINDINGS: PELVIC BONES: No displaced fracture, destructive or sclerotic lesions. Note that overlapping bowel shadows may however obscure fine detail. There are stable metallic punctate foci projecting over the right iliac wing. Sacroiliac joints are unremarkable. No widening of the pubic symphysis. HIPS: There are bilateral stable hip arthroplasties. SOFT TISSUES: There are vascular calcifications. RAD/Pelvis 1 or 2 Views IMPRESSION: Stable examination with no evidence of displaced pelvic or hip fracture. Electronically Signed: Arin Allen MD at 8:42 EST ,
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
--- NOTE | 2022-05-31 07:00 | CT_ITS ---
INDICATION: fall injury EXAMINATION: CT BRAIN - CT Head or Brain W/O Contrast Injection TECHNIQUE: Multiple axial images were obtained of the head without intravenous contrast. A radiation dose optimization technique was used for this scan. IV Contrast dosage and agent: None. COMPARISON: October 03, 2020 FINDINGS: BRAIN PARENCHYMA: No intra- or extra-axial hemorrhage. No evidence of acute infarct. No intracranial mass or mass effect. There are ill-defined foci of low attenuation within the white matter of the cerebral hemispheres, a nonspecific finding most commonly reflecting small vessel ischemia. There is preservation of the sinha/white matter interface. Posterior fossa structures are unremarkable. CSF SPACES: Appropriate for age. No hydrocephalus. Basal cisterns are patent. CALVARIUM, SKULL BASE, PARANASAL SINUSES AND MASTOID AIR CELLS: Clear. No discrete lytic or blastic abnormalities. ORBITS: Both globes, extraocular muscles, optic nerves and retrobulbar fat appear unremarkable. CT/Brain/Head without Contrast IMPRESSION: Small vessel ischemia. Electronically Signed: Arin Allen MD at 8:04 EST ,
[2022-05-31 07:11] LABS: Absolute Lymphocyte Count 1.23 X10^3/uL (0.83-4.51); Basophil# 0.01 X10^3/uL; Basophil% 0.1 % (0-1); Eosinophil# 0.07 X10^3/uL; Eosinophils% 0.5 % (0-5); Hemoglobin 8.4 g/dL (12.0-15.0); Lymphocyte # 1.23 X10^3/ul (0.83-4.51); Lymphocyte % 8.5 % (19-41); Mean Corpuscular Hgb 30.5 pg (27.0-32.0); Mean Corpuscular Volume 101.8 fL (81-99); Monocyte# 0.95 X10^3/uL; Monocyte% 6.6 % (0-10); NRBC Flagged by Analyzer 1.5 % (0-5); Neutrophil % 82.8 % (47-70); POSITIVE MORPHOLOGY YES; Platelet Count 230 K/mm3 (150-450); RBC Distribution Width CV 22.9 % (11.6-14.6); RBC Distribution Width SD 82.4 fl (35.1-43.9); Red Blood Count 2.75 M/mm3 (4.2-5.4); White Blood Count 14.5 K/mm3 (4.4-11.0)
[2022-05-31 07:12] LABS: Differential Indicated SCAN CRITERIA MET
[2022-05-31] MEDS: Ondansetron 4 MG/2 ML Vial IV (07:19)
[2022-05-31] MEDS: Morphine 4 MG/ML Syringe IV (07:20)
[2022-05-31 07:28] LABS: Anion Gap 4 (5-15); BUN 82 mg/dL (7-18); BUN/Creat Ratio 10.1 RATIO (10-20); Calcium,Total 10.1 mg/dL (8.5-10.1); Chloride 103 mmol/L (98-107); Creatinine, Serum 8.08 mg/dL (0.55-1.02); EST Glomerular Filtration Rate 5 mL/min (>60); Est Glom Filt Rate - Afr Amer 6 mL/min (>60); Estimated Creatinine Clearance 6.77 ml/min; Glucose 103 mg/dL (74-106); Potassium 6.4 mmol/L (3.5-5.1); Sodium Level 141 mmol/L (136-145)
--- NOTE | 2022-05-31 08:38 | NURSING ---
PAGED DR BAUMAN
[2022-05-31 09:00] LABS: Anisocytosis 2+; Differential Comment SCANNED; Hypochromasia 1+; Macrocytosis 1+; Microcytosis 1+
--- NOTE | 2022-05-31 09:03 | NURSING ---
CALLED [facility], ETA 30 MIN
[2022-05-31] MEDS: Sodium Polystyrene Sulfonate 15 GM/60 ML UDC PO (09:20)
[2022-05-31 09:49] VITALS: BP 110/68; PULSE 80; RESP 18; O2SAT 98
== END 2022-05-31 09:53 | disposition home or self-care (01) ==
PROVIDERS: Emergency Provider Emergency Medicine; PCP Nurse Practitioner Adult Health; Visit Provider Emergency Medicine
DX: S70.02XA Contusion of left hip, initial encounter (principal); I13.2 Hypertensive heart and chronic kidney disease with heart failure and with stage 5 chronic kidney disease, or end stage renal disease; Z99.2 Dependence on renal dialysis; I50.22 Chronic systolic (congestive) heart failure; E11.22 Type 2 diabetes mellitus with diabetic chronic kidney disease; N18.6 End stage renal disease; E87.5 Hyperkalemia; W18.30XA Fall on same level, unspecified, initial encounter; R26.2 Difficulty in walking, not elsewhere classified; E78.5 Hyperlipidemia, unspecified; S40.012A Contusion of left shoulder, initial encounter; R09.02 Hypoxemia; E78.00 Pure hypercholesterolemia, unspecified
CPT/HCPCS: 70450; 71045; 72170; 73030; 73552; 80048; 85025; 93005; 96374; 96375; 99285; A4216; J2405

== ENCOUNTER 2022-06-06 06:01 | Inpatient (IN) | payer MEDICARE, MEDICAID, SELFPAY ==
[2022-06-06] VITALS (24 sets, daily range): BP systolic 119–195; BP diastolic 57–98; PULSE 72–107; RESP 12–33; TEMP 36.6–39.2; O2SAT 96–100; BMI 24.5; BMI 23.3
--- NOTE | 2022-06-06 06:16 | EKG12_ITS ---
Test Reason : SOB Blood Pressure : / mmHG Vent. Rate : 105 BPM Atrial Rate : 105 BPM P-R Int : 084 ms QRS Dur : 104 ms QT Int : 344 ms P-R-T Axes : 000 013 105 degrees QTc Int : 454 ms Somatic/Motion Artifact Sinus tachycardia with short DC with Premature supraventricular complexes and with occasional Prematu re ventricular complexes with junctional escape complexes Abnormal ECG Confirmed by BRANDON LEMON, MACIE ([id number]), technical writer and editor BIRDIE TORRES ([id number]) on 06/08/2022 9:34:14 AM Referred By: Confirmed By:MACIE TAYLOR MD
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
[2022-06-06] MEDS: Albuterol 2.5 MG/3 ML VIAL.NEB. INHALATION (06:31)
[2022-06-06 06:51] LABS: Absolute Lymphocyte Count 0.79 X10^3/uL (0.83-4.51); Absolute Neutrophil Count 11.1 X10^3/uL (2.0-7.7); Basophil# 0.03 X10^3/uL; Basophil% 0.2 % (0-1); Eosinophil# 0.06 X10^3/uL; Eosinophils% 0.5 % (0-5); Hematocrit 35.6 % (37-47); Hemoglobin 10.2 g/dL (12.0-15.0); Lymphocyte # 0.79 X10^3/ul (0.83-4.51); Mean Corp Hgb Conc 28.7 g/dL (32-36); Mean Corpuscular Hgb 30.7 pg (27.0-32.0); Mean Corpuscular Volume 107.2 fL (81-99); Mean Platelet Vol. 10.8 fl (6.2-12.0); Monocyte# 0.92 X10^3/uL; NRBC Flagged by Analyzer 2.2 % (0-5); Neutrophil # 11.13 X10^3/uL (2.7-7.7); Neutrophil % 85.3 % (47-70); POSITIVE MORPHOLOGY YES; Platelet Count 160 K/mm3 (150-450); Red Blood Count 3.32 M/mm3 (4.2-5.4); White Blood Count 13.1 K/mm3 (4.4-11.0)
--- NOTE | 2022-06-06 06:55 | RAD_ITS ---
INDICATION: cough EXAMINATION/TECHNIQUE: X-RAY - XR Chest 1 View COMPARISON: 05/31/2022 FINDINGS: LINES/DEVICES: Right IJ dual-lumen central venous catheter terminates at the cavoatrial junction. LUNGS: Small to moderate right and small left pleural effusions, similar compared to the prior. Hazy right basal opacities, similar compared to the prior. MEDIASTINUM AND CARDIOVASCULAR STRUCTURES: Cardiomediastinal contours are similar compared to the prior. BONES AND SOFT TISSUES: Unremarkable. RAD/Chest 1 View (Portable) IMPRESSION: Small to moderate right and small pleural effusions, similar compared to the prior. Hazy right basilar opacities, may be due to layering effusion, atelectasis or infection. Electronically Signed: Jerry Adams MD at 7:06 EST ,
[2022-06-06 07:08] LABS: Anion Gap 2 (5-15); BUN 31 mg/dL (7-18); BUN/Creat Ratio 6.1 RATIO (10-20); Calcium,Total 8.8 mg/dL (8.5-10.1); Chloride 107 mmol/L (98-107); Creatinine, Serum 5.08 mg/dL (0.55-1.02); EST Glomerular Filtration Rate 9 mL/min (>60); Est Glom Filt Rate - Afr Amer 11 mL/min (>60); Estimated Creatinine Clearance 10.77 ml/min; Glucose 102 mg/dL (74-106); Potassium 4.2 mmol/L (3.5-5.1); Sodium Level 144 mmol/L (136-145); Troponin-I HS (w/2H Reflex) 67 pg/mL (3.0-54.0)
[2022-06-06 07:10] LABS: Differential Indicated SCAN CRITERIA MET
[2022-06-06 07:11] LABS: Anisocytosis 1+; Differential Comment SCANNED; Macrocytosis 1+; Polychromasia RARE
[2022-06-06] MEDS: Acetaminophen 500 MG Tablet PO (07:31)
[2022-06-06] MEDS: Aspirin 81 MG TAB.CHEW 324 MG PO (07:31)
--- NOTE | 2022-06-06 07:39 | NURSING ---
06/06/22- Provider aware multiple attempts at IV was unsuccessful. Verbal order to leave IV out for now. See provider note for sepsis alert.
[2022-06-06 08:48] LABS: Reflex Troponin-HS? (from REC) Y
[2022-06-06] MEDS: MethylPREDNISolone 125 MG/2 ML Vial 60 MG IV (09:01)
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
[2022-06-06 09:23] LABS: Lactic Acid 1.6 mmol/L (0.4-1.9)
[2022-06-06 09:47] LABS: Troponin-I HS 100 pg/mL (3.0-54.0)
[2022-06-06 10:06] LABS: Base Excess 10 mmol/L (-2 to +2); Bicarbonate 34.1 mmol/L (22-26); Blood Gas Specimen Type ART; FI02 40; O2 Delivery Device BiPAP; PEEP 8; PO2 104 mmHG (75-100); SITE L Brach; SO2 98 % (95-99); Total Carbon Dioxide 36 mmol/L; pCO2 53.8 mmHg (35-45); pH 7.41 (7.35-7.45)
[2022-06-06] MEDS: Ipratropium/Albuterol Sulfate 3 ML AMPUL.NEB INHALATION ×3 (10:56→22:29)
--- NOTE | 2022-06-06 11:16 | NURSING ---
No Picc or midline per Dr. Sears. Patient is ESRD requiring HD.
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
[2022-06-06] MEDS: 0.9% Saline Lock 10 ML Syringe IV ×2 (12:44→18:20)
--- NOTE | 2022-06-06 14:30 | PHA.PHARE_ITS ---
Consult Pharmacy has been consulted to manage selected antiobiotic: Vancomycin Type of Consult: New start Suspected Infection: Pneumonia Labs: Sodium 144 mmol/L (136-145) 06/06/22 06:46 Potassium 4.2 mmol/L (3.5-5.1) 06/06/22 06:46 Chloride 107 mmol/L (98-107) 06/06/22 06:46 Carbon Dioxide 35.0 mmol/L (21.0-32.0) H 06/06/22 06:46 Anion Gap 2 (5-15) L 06/06/22 06:46 BUN 31 mg/dL (7-18) H 06/06/22 06:46 Creatinine 5.08 mg/dL (0.55-1.02) H 06/06/22 06:46 Est GFR (MDRD) Af Amer 11 mL/min (>60) L 06/06/22 06:46 Est GFR (MDRD) Non-Af 9 mL/min (>60) L 06/06/22 06:46 BUN/Creatinine Ratio 6.1 RATIO (10-20) L 06/06/22 06:46 Glucose 102 mg/dL (74-106) 06/06/22 06:46 Microbiology: Microbiology 06/06/22 08:57 Mucosa - Nasopharyngeal Respiratory Panel (PCR) - Final 06/06/22 06:40 Nasal Secretion SARS-CoV-2 & FLU Antigen (Rapid) - Final Weight used for dosin.7 kg Estimated Creatinine Clearance: ON HD Goal Trough: 15-20 mcg/mL Pharmacy Plan for Drug Dosing: An initial standard dose of 1250mg IV x1 was given today at 12:46 (based on an initial weight of 75.5kg). The patient is on a Mon/Sun/Sun dialysis schedule so per [facility] dosing in patients on HD, will give a 2nd dose of vancomycin 500mg IV x1 after the next dialysis session which will be tomorrow (based on the patient's current weight of 71.7kg). Further dosing will be determined by pre-dialysis random vanc levels, the first which will be on 06/09/22. Pharmacy Service will continue to monitor and adjust dosing as required. Follow-Up Labs: Trough Vancomycin - random Labs to be done on [date and time ordered]: 06/09/22 0600 pre-HD random level
[2022-06-06] MEDS: oxyCODONE 5 MG Tablet 10 MG PO (16:07)
[2022-06-06] MEDS: guaiFENesin 1,200 MG Tablet 1200 MG PO ×2 (18:18→21:55)
[2022-06-06] MEDS: APIXABAN 2.5 MG TABLET (WCH) PO ×2 (18:18→21:55)
[2022-06-06] MEDS: amLODIPine 10 MG Tablet PO (18:19)
[2022-06-06] MEDS: hydrALAZINE 50 MG Tablet 100 MG PO ×2 (18:19→21:55)
[2022-06-06] MEDS: Pantoprazole Sodium 20 MG Tablet PO (18:19)
[2022-06-06] MEDS: DULoxetine Hcl 60 MG Capsule PO (18:19)
[2022-06-06 18:46] LABS: Troponin-I HS 149 pg/mL (3.0-54.0)
[2022-06-06] MEDS: Carvedilol 25 MG Tablet PO (21:55)
[2022-06-06] MEDS: Montelukast 10 MG Tablet PO (21:55)
[2022-06-06] MEDS: Mirtazapine 15 MG Tablet 45 MG PO (21:55)
[2022-06-06] MEDS: Gabapentin 300 MG Capsule PO (21:56)
[2022-06-06 22:10] LABS: M R Staph aureus DNA By PCR Negative (Negative); Probe Check PASS; Specimen Processing Control PASS
[2022-06-07] VITALS (19 sets, daily range): BP systolic 106–156; BP diastolic 59–94; PULSE 67–123; RESP 12–24; TEMP 36.2–37.3; O2SAT 98–100
[2022-06-07] MEDS: oxyCODONE 5 MG Tablet 10 MG PO ×3 (03:55→22:00)
[2022-06-07] MEDS: Ipratropium/Albuterol Sulfate 3 ML AMPUL.NEB INHALATION ×5 (04:04→23:07)
[2022-06-07 06:02] LABS: Hematocrit 28.8 % (37-47); Hemoglobin 8.4 g/dL (12.0-15.0); Mean Corp Hgb Conc 29.2 g/dL (32-36); Mean Corpuscular Hgb 30.8 pg (27.0-32.0); Mean Corpuscular Volume 105.5 fL (81-99); Mean Platelet Vol. 9.8 fl (6.2-12.0); POSITIVE MORPHOLOGY YES; Platelet Count 107 K/mm3 (150-450); RBC Distribution Width CV 23.3 % (11.6-14.6); RBC Distribution Width SD 90.1 fl (35.1-43.9); Red Blood Count 2.73 M/mm3 (4.2-5.4); Scan Indicated on CBC? Y/N YES- FLAGS NOTED; White Blood Count 10.5 K/mm3 (4.4-11.0)
[2022-06-07] MEDS: hydrALAZINE 50 MG Tablet 100 MG PO ×3 (06:02→22:04)
[2022-06-07] MEDS: 0.9% Saline Lock 10 ML Syringe IV ×2 (06:03→22:12)
[2022-06-07 06:40] LABS: Differential Comment SCANNED
[2022-06-07 06:44] LABS: AST(SGOT) 53 U/L (15-37); Alanine Aminotransfer ALT/SGPT 79 U/L (13-56); Albumin, Serum 2.8 g/dL (3.2-5.0); Alkaline Phosphatase 132 U/L (45-117); Anion Gap 6 (5-15); BUN 56 mg/dL (7-18); BUN/Creat Ratio 8.3 RATIO (10-20); Calcium,Total 7.9 mg/dL (8.5-10.1); Chloride 103 mmol/L (98-107); Creatinine, Serum 6.74 mg/dL (0.55-1.02); EST Glomerular Filtration Rate 6 mL/min (>60); Est Glom Filt Rate - Afr Amer 8 mL/min (>60); Estimated Creatinine Clearance 8.12 ml/min; Globulin 2.9 g/dL (2.2-4.2); Glucose 158 mg/dL (74-106); Magnesium 2.4 mg/dL (1.6-2.6); Phosphorus 4.1 mg/dL (2.5-4.9); Potassium 4.9 mmol/L (3.5-5.1); Protein, Total 5.7 g/dL (6.4-8.2); Sodium Level 140 mmol/L (136-145)
--- NOTE | 2022-06-07 11:52 | CASEMGMT ---
Updates were sent to [facility] let them know that patient will likely be ready for discharge tomorrow. Evy Paredes MSW [facility]
[2022-06-07] MEDS: Midodrine HCl 5 MG Tablet 10 MG PO (12:27)
[2022-06-07] MEDS: amLODIPine 10 MG Tablet PO (12:28)
[2022-06-07] MEDS: DULoxetine Hcl 60 MG Capsule PO (12:28)
[2022-06-07] MEDS: Carvedilol 25 MG Tablet PO ×2 (12:28→22:04)
[2022-06-07] MEDS: guaiFENesin 1,200 MG Tablet 1200 MG PO ×2 (12:28→22:04)
[2022-06-07] MEDS: APIXABAN 2.5 MG TABLET (WCH) PO ×2 (12:29→22:04)
[2022-06-07] MEDS: Pantoprazole Sodium 20 MG Tablet PO (12:29)
--- NOTE | 2022-06-07 13:10 | PCM.PN.HOSP ---
Subjective Subjective Reports feeling much better than yesterday, mostly feels that the BiPAP is what is helpful. Oxygen saturation still good, cultures no growth to date. Denies any chest pain and reports once her breathing improved on BiPAP yesterday she had no chest pain or discomfort whatsoever. Does continue to have generalized aches and pains. Has been able to swallow and eat. Seen on dialysis this morning and was comfortable but was starting to have increased work of breathing and requested BiPAP. When she was reevaluated in the afternoon she had been off BiPAP for over an hour and began to have increased work of breathing and tachycardia and requested to be put back on BiPAP. Objective Data Objective Data Vital Signs: Vital Signs Temp Pulse Resp BP Pulse Ox O2 Del Method O2 Flow Rate 98.2 F 118 H 18 156/94 H 100 Nasal Cannula 4 06/07/22 12:30 06/07/22 12:30 06/07/22 12:30 06/07/22 12:30 06/07/22 12:30 06/07/22 12:30 06/07/22 12:30 FiO2 30 06/07/22 03:45 Oxygen Flow Rate (L/min) 4 Oxygen Delivery Method Nasal Cannula Weight: 73.5 kg Body Mass Index (BMI) 23.3 Intake & Output: Intake and Output for Last 24 Hours 06/05/22 06/06/22 06/07/22 23:59 23:59 23:59 Intake Total 650 / 650 300 / 300 Output Total 0 / 0 0 / 0 Balance 650 / 650 300 / 300 Lab / Micro Data Result Diagrams: 06/07/22 05:50 06/07/22 05:50 Labs: Laboratory Results - last 24 hr 06/06/22 18:00: Troponin I High Sens 149 H* 06/06/22 20:14: MRSA (PCR) Negative 06/07/22 05:50: WBC 10.5, RBC 2.73 L, Hgb 8.4 L, Hct 28.8 L, MCV 105.5 H, MCH 30.8, MCHC 29.2 L, RDW Std Deviation 90.1 H, RDW Coeff of Destiny 23.3 H, Plt Count 107 L, MPV 9.8, Differential Comment SCANNED 06/07/22 05:50: Sodium 140, Potassium 4.9, Chloride 103, Carbon Dioxide 31.0, Anion Gap 6, BUN 56 H, Creatinine 6.74 H, Estim Creat Clear Calc 8.12, Est GFR (MDRD) Af Amer 8 L, Est GFR (MDRD) Non-Af 6 L, BUN/Creatinine Ratio 8.3 L, Glucose 158 H, Calcium 7.9 L, Phosphorus 4.1, Magnesium 2.4, Total Bilirubin 0.90, AST 53 H, ALT 79 H, Alkaline Phosphatase 132 H, Total Protein 5.7 L, Albumin 2.8 L, Globulin 2.9, Albumin/Globulin Ratio 1.0 Micro: Microbiology 06/06/22 08:57 Mucosa - Nasopharyngeal Respiratory Panel (PCR) - Final 06/06/22 06:40 Nasal Secretion SARS-CoV-2 & FLU Antigen (Rapid) - Final Physical Exam Const alert and oriented x3 Constitutional Narrative: Work of breathing increasing HEENT head/scalp atraumatic HEENT Narrative: Slightly runny membranes Eyes PERRL Neck supple Resp Resp Narrative: Coarse at the bases, work of breathing varies greatly between exams, most recently slight increased work of breathing about to be placed back on BiPAP Cardio Cardio Narrative: Intermittently slightly tachycardic GI soft to palpation, non-tender and non-distended Extremity normal to inspection Neuro moves all extremities Neuro Narrative: No overt focal neurological deficits Psych affect normal Assessment & Plan Assessment/Plan (1) Shortness of breath: (2) Chronic respiratory failure with hypoxia, on home O2 therapy: (3) Fever: PLAN: Plan #Shortness of breath in setting of chronic hypoxic respiratory failure secondary to COPD AE COPD versus pneumonia, unclear viral or bacterial at this time Given anticoagulation less likely PE at this time Saturation in 90s on minimal O2 but has tachypnea and increased work of breathing Chest x-ray with small to moderate right pleural effusion similar to prior with some hazy opacities of unclear etiology though appears similar to previous when reviewing film Will consider chest CT if not improving BiPAP for work of breathing Sputum culture Respiratory panel MRSA PCR Urine antigens Blood cultures Broad-spectrum antibiotics until bacterial infection ruled out DuoNebs Methylpred Incentive spirometer Will get ABG 06/07/2022: Significantly improved today though has intermittently been dependent upon the BiPAP for increased work of breathing though not hypoxia. Cultures no growth to date. On azithromycin and Zosyn still, MRSA PCR negative so Vanco has been discontinued. #Febrile Blood cultures Broad-spectrum antibiotics Sputum culture, UA Not hypotensive, awaiting lactic acid 06/07/2022: Lactic was normal, no hypotension, heart rate only goes up when increased work of breathing and improves with BiPAP. Has not been febrile since yesterday morning. Continue antibiotics. Awaiting cultures #Troponin elevation Likely type II in setting of infection Trending troponin 06/07/2022: Had trended up but highly suspect it was all type II secondary to her infection and increased work of breathing, no chest pain whatsoever, and she is overall clinically improving #End-stage renal disease on dialysis Sunday Consult nephrology Does not appear to be fluid overloaded at this time Daily weights I's and O's #DVT ppx: On Kelly Quezada MD Charges/Coding Visit Charges Inpatient E&M: 73245 Subs Hosp L2
--- NOTE | 2022-06-07 13:11 | CHAPLAIN ---
Type of Pastoral Visit _x__ Initial Visit ___ Follow-up Visit ___ On-call Visit ___ General Patient Visit ___ Spiritual Assessment ___ Family Conference ___ Bereavement ___ Rapid Response ___ Code Blue ___ Other (describe below) Pastoral Care Referral From _x__ Patient ___ Family ___ Nurse ___ Physician ___ Sports Reporter ___ Prop And Scenery Maker ___ Other (describe below) Sacrament/Intervention ___ Active listening ___ Anointing ___ Judaism ___ Bereavement ___ Communion ___ Flaca exploration ___ ___ Life review _x__ Prayer ___ Reconciliation ___ Sacrament of Sick _x__ Supportive presence ___ Wedding ___ Other (describe below) Pastoral Comments
[2022-06-07] MEDS: Gabapentin 600 MG Tablet PO ×2 (14:07→14:15)
[2022-06-07] MEDS: Mirtazapine 15 MG Tablet 45 MG PO (14:07)
--- NOTE | 2022-06-07 15:29 | PCM.PN.REN ---
Subjective Subjective remains on Bipap Objective Data Objective Data Vital Signs: Vital Signs Temp Pulse Resp BP Pulse Ox O2 Del Method O2 Flow Rate 98 F 82 20 H 149/79 H 100 Bi-pap 4 06/07/22 14:30 06/07/22 15:21 06/07/22 15:21 06/07/22 14:30 06/07/22 15:21 06/07/22 14:30 06/07/22 12:30 FiO2 30 06/07/22 15:21 Oxygen Flow Rate (L/min) 4 Oxygen Delivery Method Bi-pap Weight: 73.5 kg Body Mass Index (BMI) 23.3 Intake & Output: Intake and Output for Last 24 Hours 06/05/22 06/06/22 06/07/22 23:59 23:59 23:59 Intake Total 650 / 650 775 / 775 Output Total 0 / 0 2500 / 2500 Balance 650 / 650 -1725 / -1725 Lab / Micro Data Result Diagrams: 06/07/22 05:50 06/07/22 05:50 Labs: Laboratory Results - last 24 hr 06/06/22 18:00: Troponin I High Sens 149 H* 06/06/22 20:14: MRSA (PCR) Negative 06/07/22 05:50: WBC 10.5, RBC 2.73 L, Hgb 8.4 L, Hct 28.8 L, MCV 105.5 H, MCH 30.8, MCHC 29.2 L, RDW Std Deviation 90.1 H, RDW Coeff of Destiny 23.3 H, Plt Count 107 L, MPV 9.8, Differential Comment SCANNED 06/07/22 05:50: Sodium 140, Potassium 4.9, Chloride 103, Carbon Dioxide 31.0, Anion Gap 6, BUN 56 H, Creatinine 6.74 H, Estim Creat Clear Calc 8.12, Est GFR (MDRD) Af Amer 8 L, Est GFR (MDRD) Non-Af 6 L, BUN/Creatinine Ratio 8.3 L, Glucose 158 H, Calcium 7.9 L, Phosphorus 4.1, Magnesium 2.4, Total Bilirubin 0.90, AST 53 H, ALT 79 H, Alkaline Phosphatase 132 H, Total Protein 5.7 L, Albumin 2.8 L, Globulin 2.9, Albumin/Globulin Ratio 1.0 Micro: Microbiology 06/06/22 08:57 Mucosa - Nasopharyngeal Respiratory Panel (PCR) - Final 06/06/22 06:40 Nasal Secretion SARS-CoV-2 & FLU Antigen (Rapid) - Final Physical Exam Narrative Alert awake oriented x 3 on bipap due to resp distress no pallor no icterus no JVD s1s2 no murmurs lungs clear abdomen soft no organomegaly no edema no cyanosis Assessment & Plan Assessment/Plan (1) ESRD (end stage renal disease) on dialysis: PLAN: Sunday. Sunday, Sunday schedule. HD today, seen on HD. able to remove about 2-3 L. dw staff
[2022-06-07 18:34] LABS: Mucous, Urine 0 SEEN /hpf (<or=2+)
[2022-06-07 18:40] LABS: Color, Urine Yellow (Yellow); Glucose, Dipstick Normal (Normal); Ketone-Dipstick Negative (Negative); Leukocyte Esterase-Dipstick 25 /ul (Negative); Nitrite-Dipstick Negative (Negative); Occult Blood-Urine 150 /ul (Negative); Protein-Dipstick 100 mg/dl (Negative); Urine Clarity Sl. Cloudy (Clear); Urine Urobilinogen Normal (Normal)
[2022-06-07 18:56] LABS: Urine Bilirubin Dipstick 1 mg/dL (Negative)
[2022-06-07 18:57] LABS: Bacteria 1+ /hpf (None Seen); Squamous Epithelial Cells - UA 10-25 SEEN /hpf (5-10)
[2022-06-07 19:05] LABS: Red Blood Cells-Urine 5-10 SEEN /hpf (0-5); White Blood Cells 0-5 SEEN /hpf (0-5); Yeast-Urine RARE /hpf (None Seen)
[2022-06-07] MEDS: Acetaminophen 325 MG Tablet 650 MG PO (20:26)
[2022-06-07] MEDS: Montelukast 10 MG Tablet PO (22:04)
[2022-06-08] VITALS (21 sets, daily range): BP systolic 123–147; BP diastolic 55–70; PULSE 56–81; RESP 12–22; TEMP 36.4–36.8; O2SAT 93–100
[2022-06-08] MEDS: Ipratropium/Albuterol Sulfate 3 ML AMPUL.NEB INHALATION ×6 (03:01→22:53)
[2022-06-08] MEDS: hydrALAZINE 50 MG Tablet 100 MG PO ×3 (06:08→20:20)
[2022-06-08] MEDS: 0.9% Saline Lock 10 ML Syringe IV ×2 (06:08→20:27)
[2022-06-08 06:24] LABS: Absolute Neutrophil Count 9.6 X10^3/uL (2.0-7.7); Basophil# 0.01 X10^3/uL; Basophil% 0.1 % (0-1); Hematocrit 28.2 % (37-47); Hemoglobin 8.3 g/dL (12.0-15.0); Lymphocyte % 4.7 % (19-41); Mean Corp Hgb Conc 29.4 g/dL (32-36); Mean Corpuscular Hgb 30.9 pg (27.0-32.0); Mean Corpuscular Volume 104.8 fL (81-99); Mean Platelet Vol. 9.6 fl (6.2-12.0); Monocyte# 0.38 X10^3/uL; Monocyte% 3.6 % (0-10); NRBC Flagged by Analyzer 2.2 % (0-5); Neutrophil # 9.62 X10^3/uL (2.7-7.7); Neutrophil % 90.9 % (47-70); POSITIVE DIFFERENTIAL YES; POSITIVE MORPHOLOGY YES; Platelet Count 104 K/mm3 (150-450); RBC Distribution Width CV 22.7 % (11.6-14.6); RBC Distribution Width SD 87.7 fl (35.1-43.9); Red Blood Count 2.69 M/mm3 (4.2-5.4); White Blood Count 10.6 K/mm3 (4.4-11.0)
[2022-06-08 06:25] LABS: Differential Indicated SCAN CRITERIA MET
[2022-06-08 06:41] LABS: ALB/GLOB Ratio 0.8 RATIO (0.9-2.4); AST(SGOT) 46 U/L (15-37); Alanine Aminotransfer ALT/SGPT 72 U/L (13-56); Albumin, Serum 2.6 g/dL (3.2-5.0); Alkaline Phosphatase 109 U/L (45-117); Anion Gap 8 (5-15); BUN 45 mg/dL (7-18); BUN/Creat Ratio 9.7 RATIO (10-20); Calcium,Total 7.5 mg/dL (8.5-10.1); Chloride 100 mmol/L (98-107); Creatinine, Serum 4.63 mg/dL (0.55-1.02); EST Glomerular Filtration Rate 10 mL/min (>60); Est Glom Filt Rate - Afr Amer 12 mL/min (>60); Estimated Creatinine Clearance 11.82 ml/min; Globulin 3.1 g/dL (2.2-4.2); Glucose 140 mg/dL (74-106); Potassium 4.6 mmol/L (3.5-5.1); Protein, Total 5.7 g/dL (6.4-8.2); Sodium Level 135 mmol/L (136-145)
[2022-06-08 06:46] LABS: Anisocytosis 1+; Differential Comment SCANNED; Macrocytosis 1+
[2022-06-08] MEDS: oxyCODONE 5 MG Tablet 10 MG PO ×3 (09:48→20:24)
[2022-06-08] MEDS: amLODIPine 10 MG Tablet PO (09:49)
[2022-06-08] MEDS: DULoxetine Hcl 60 MG Capsule PO (09:49)
[2022-06-08] MEDS: Pantoprazole Sodium 20 MG Tablet PO (09:49)
[2022-06-08] MEDS: Carvedilol 25 MG Tablet PO ×2 (09:50→20:22)
[2022-06-08] MEDS: guaiFENesin 1,200 MG Tablet 1200 MG PO ×2 (09:50→20:23)
[2022-06-08] MEDS: APIXABAN 2.5 MG TABLET (WCH) PO ×2 (09:50→20:21)
--- NOTE | 2022-06-08 10:30 | CASEMGMT ---
Patient is not ready for discharge today. MARIA GUADALUPE called [facility] and let Isa know patient will not be returning today, but maybe tomorrow. Isa said she will let Adele the nurse know this information. Evy GONZALEZ
--- NOTE | 2022-06-08 11:04 | NURSING ---
HOME O2 QUALIFICATION COMPLETED-SEE INTERVENTION. PT VERY WEAK AND SOB WITH WALKING FROM CHAIR AROUND BED. WILL INFORM
--- NOTE | 2022-06-08 11:43 | PN.RENAL_ITS ---
Subjective Subjective Sitting on edge of bed. No overnight events. On nasal cannula. Objective Data Objective Data Vital Signs: Vital Signs Temp Pulse Resp BP Pulse Ox O2 Del Method O2 Flow Rate 98.1 F 74 20 H 147/55 H 100 Nasal Cannula 2 06/08/22 09:44 06/08/22 10:59 06/08/22 10:41 06/08/22 09:44 06/08/22 11:03 06/08/22 09:44 06/08/22 11:03 FiO2 30 06/08/22 06:04 Oxygen Flow Rate (L/min) [ 4 AMBULATING with Oxygen #1] Oxygen Flow Rate (L/min) [At 2 REST with Oxygen] Oxygen Flow Rate (L/min) 3.5 Oxygen Delivery Method Nasal Cannula Weight: 72.2 kg Body Mass Index (BMI) 23.3 Intake & Output: Intake and Output for Last 24 Hours 06/06/22 06/07/22 06/08/22 23:59 23:59 23:59 Intake Total 650 / 650 1680 / 1680 50 / 50 Output Total 0 / 0 2500 / 2500 Balance 650 / 650 -820 / -820 50 / 50 Lab / Micro Data Result Diagrams: 06/08/22 05:36 06/08/22 05:36 Labs: Laboratory Results - last 24 hr 06/07/22 18:27: Urine Color Yellow, Urine Clarity Sl. Cloudy, Urine pH 8.0, Ur Specific [place] 1.010, Urine Protein 100 H, Urine Glucose (UA) Normal, Urine Ketones Negative, Urine Occult Blood 150 H, Urine Nitrite Negative, Urine Bilirubin 1 H, Urine Urobilinogen Normal, Ur Leukocyte Esterase 25 H, Urine RBC 5-10 SEEN, Urine WBC 0-5 SEEN, Ur Squamous Epith Cells 10-25 SEEN, Urine Bacteria 1+, Urine Mucus 0 SEEN, Urine Yeast RARE 06/08/22 05:36: WBC 10.6, RBC 2.69 L, Hgb 8.3 L, Hct 28.2 L, MCV 104.8 H, MCH 30.9, MCHC 29.4 L, RDW Std Deviation 87.7 H, RDW Coeff of Destiny 22.7 H, Plt Count 104 L, MPV 9.6, Immature Gran % (Auto) 0.700, Neut % (Auto) 90.9 H, Lymph % (Auto) 4.7 L, [place] % (Auto) 3.6, Eos % (Auto) 0.0, Baso % (Auto) 0.1, Absolute Neuts (auto) 9.6 H, Absolute Lymphs (auto) 0.50 L, Nucleated RBC % 2.2, Differential Comment SCANNED, Anisocytosis 1+, Macrocytosis 1+ 06/08/22 05:36: Sodium 135 L, Potassium 4.6, Chloride 100, Carbon Dioxide 27.0, Anion Gap 8, BUN 45 H, Creatinine 4.63 H, Estim Creat Clear Calc 11.82, Est GFR (MDRD) Af Amer 12 L, Est GFR (MDRD) Non-Af 10 L, BUN/Creatinine Ratio 9.7 L, Glucose 140 H, Calcium 7.5 L, Total Bilirubin 0.80, AST 46 H, ALT 72 H, Alkaline Phosphatase 109, Total Protein 5.7 L, Albumin 2.6 L, Globulin 3.1, Albumin/Globulin Ratio 0.8 L Micro: Microbiology 06/07/22 18:27 Urine, Random Urine Culture - Preliminary Culture exhibits no growth. 06/06/22 09:10 Blood Culture (Wb) - Left Forearm Blood Culture - Preliminary No growth in 48 hours. 06/06/22 08:30 Blood Culture (Wb) - Arm Left Blood Culture - Preliminary No growth in 48 hours. 06/07/22 18:27 Urine, Random Legionella Antigen - Final 06/07/22 18:27 Urine, Random Streptococcus pneumoniae Antigen (M - Final 06/06/22 08:57 Mucosa - Nasopharyngeal Respiratory Panel (PCR) - Final 06/06/22 06:40 Nasal Secretion SARS-CoV-2 & FLU Antigen (Rapid) - Final Physical Exam Narrative Alert awake oriented x 3 s1s2 no murmurs Diminished breath sounds anteriorly and posteriorly with faint expiratory wheezing noted. No rales or rhonchi abdomen soft, no organomegaly no edema Tunneled HD catheter dressing C/D/I Assessment & Plan Assessment/Plan (1) ESRD (end stage renal disease) on dialysis: PLAN: - HD Sunday. Sunday, Sunday at [facility]. 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 Tolerated dialysis yesterday with 2 L fluid removal. Plan for dialysis tomorrow with UF as patient/blood pressure tolerates - CODP; breathing improved and off Bipap, on nasal cannula. IV ABX, duonebs, IV steroids. BC so far NGTD. - bps acceptable - hgb 8.3. Patient receives Mircera at kidney center, will monitor hgb trends - increase activity up to chair for meals.
--- NOTE | 2022-06-08 14:25 | PN.HOSP_ITS ---
Subjective Subjective Patient states she is feeling better today overall. Did require rescue BiPAP yesterday. States that she is not quite back to baseline with regards to her breathing but is getting close. Indicates that she does well when she is on steroids however when she comes off steroids she begins to have problems. We discussed that she has not really followed up with pulmonary medicine recently and she confirms this. I did discuss with her the importance of close pulmonary medicine follow-up and we will make this referral at discharge. She is unclear who has she has seen in the past. Objective Data Objective Data Vital Signs: Vital Signs Temp Pulse Resp BP Pulse Ox O2 Del Method O2 Flow Rate 98.1 F 74 20 H 147/55 H 100 Nasal Cannula 2 06/08/22 09:44 06/08/22 10:59 06/08/22 10:41 06/08/22 09:44 06/08/22 11:03 06/08/22 09:44 06/08/22 11:03 FiO2 30 06/08/22 06:04 Oxygen Flow Rate (L/min) [ 4 AMBULATING with Oxygen #1] Oxygen Flow Rate (L/min) [At 2 REST with Oxygen] Oxygen Flow Rate (L/min) 3.5 Oxygen Delivery Method Nasal Cannula Weight: 72.2 kg Body Mass Index (BMI) 23.3 Intake & Output: Intake and Output for Last 24 Hours 06/06/22 06/07/22 06/08/22 23:59 23:59 23:59 Intake Total 650 / 650 1680 / 1680 50 / 50 Output Total 0 / 0 2500 / 2500 Balance 650 / 650 -820 / -820 50 / 50 Lab / Micro Data Result Diagrams: 06/08/22 05:36 06/08/22 05:36 Labs: Laboratory Results - last 24 hr 06/07/22 18:27: Urine Color Yellow, Urine Clarity Sl. Cloudy, Urine pH 8.0, Ur Specific [place] 1.010, Urine Protein 100 H, Urine Glucose (UA) Normal, Urine Ketones Negative, Urine Occult Blood 150 H, Urine Nitrite Negative, Urine Bilirubin 1 H, Urine Urobilinogen Normal, Ur Leukocyte Esterase 25 H, Urine RBC 5-10 SEEN, Urine WBC 0-5 SEEN, Ur Squamous Epith Cells 10-25 SEEN, Urine Bacteria 1+, Urine Mucus 0 SEEN, Urine Yeast RARE 06/08/22 05:36: WBC 10.6, RBC 2.69 L, Hgb 8.3 L, Hct 28.2 L, MCV 104.8 H, MCH 30.9, MCHC 29.4 L, RDW Std Deviation 87.7 H, RDW Coeff of Destiny 22.7 H, Plt Count 104 L, MPV 9.6, Immature Gran % (Auto) 0.700, Neut % (Auto) 90.9 H, Lymph % (A uto) 4.7 L, [place] % (Auto) 3.6, Eos % (Auto) 0.0, Baso % (Auto) 0.1, Absolute Neuts (auto) 9.6 H, Absolute Lymphs (auto) 0.50 L, Nucleated RBC % 2.2, Differential Comment SCANNED, Anisocytosis 1+, Macrocytosis 1+ 06/08/22 05:36: Sodium 135 L, Potassium 4.6, Chloride 100, Carbon Dioxide 27.0, Anion Gap 8, BUN 45 H, Creatinine 4.63 H, Estim Creat Clear Calc 11.82, Est GFR (MDRD) Af Amer 12 L, Est GFR (MDRD) Non-Af 10 L, BUN/Creatinine Ratio 9.7 L, Glucose 140 H, Calcium 7.5 L, Total Bilirubin 0.80, AST 46 H, ALT 72 H, Alkaline Phosphatase 109, Total Protein 5.7 L, Albumin 2.6 L, Globulin 3.1, Albumin/Globulin Ratio 0.8 L Micro: Microbiology 06/07/22 18:27 Urine, Random Urine Culture - Preliminary Culture exhibits no growth. 06/06/22 09:10 Blood Culture (Wb) - Left Forearm Blood Culture - Preliminary No growth in 48 hours. 06/06/22 08:30 Blood Culture (Wb) - Arm Left Blood Culture - Preliminary No growth in 48 hours. 06/07/22 18:27 Urine, Random Legionella Antigen - Final 06/07/22 18:27 Urine, Random Streptococcus pneumoniae Antigen (M - Final 06/06/22 08:57 Mucosa - Nasopharyngeal Respiratory Panel (PCR) - Final 06/06/22 06:40 Nasal Secretion SARS-CoV-2 & FLU Antigen (Rapid) - Final Physical Exam Const alert, oriented x3 and well nourished Constitutional Narrative: Older -Japanese female sitting up in chair at the bedside, no signs of respiratory distress at this time, appears comfortable nontoxic HEENT normocephalic, head/scalp atraumatic and moist oral mucous membranes HEENT Narrative: No thrush present, edentulous, Mallampati is 2 Resp normal respiratory effort, no retractions, no use of accessory muscles and No clear to auscultation bilaterally Resp Narrative: Diminished at bases bilaterally, few scattered end expiratory wheezes bilaterally Auscultation: wheezes; Negative for crackles or rhonchi Cardio regular rate, regular rhythm, S1 normal heart sound, S2 normal heart sound, no murmurs, no rub, no gallops and no clicks GI normal to inspection, nondistended, normoactive bowel sounds, soft to palpation and non-tender Extremity no clubbing, cyanosis or edema Neuro oriented x3 and moves all extremities Speech: speech normal Psych affect normal Psych Narrative: Very pleasant and at her baseline Assessment & Plan Assessment/Plan (1) Shortness of breath: (2) Chronic respiratory failure with hypoxia, on home O2 therapy: (3) Fever: PLAN: Plan Chronic hypoxic respiratory failure with shortness of breath secondary to COPD e xacerbation -Oxygen has been weaned to 4 L and when tested she tolerated 2 L at rest and 4 L with exertion having oxygen saturations at 93 to 94% with exertion -Anticipate discharge in the next 24 hours as long as patient remains clinically stable if she did require rescue BiPAP therapy late yesterday -Continue Solu-Medrol 40 every 8 -Aggressive pulmonary toilet with scheduled and as needed DuoNebs -I-S/Pep therapy -Scheduled Mucinex -Strep pneumo Legionella antigens are negative -COVID-19 and flu are negative -Respiratory viral panel was negative -Did have recent infection in mid May with human metapneumovirus for which she had a short hospitalization -Continue current antibiotics with azithromycin and Zosyn given fevers at presentation -Continue BiPAP as needed -Monitor on telemetry -Outpatient pulmonary follow-up after discharge Fever -Thus far infectious work-up is negative with negative strep pneumo and Legionella antigens/negative urine culture/negative blood cultures -T-max was 102.5 on the day of presentation however she has been afebrile since the evening of 06/06/2022 -Negative tomorrow will discontinue antibiotics End-stage renal disease-HD dependent -Nephrology following -Continue midodrine with dialysis -Continue phosphate binder -Renally dose all medications Diastolic heart failure -X-ray appears stable in appearance from previous -Continue home cardiac medications -Most recent echo from 04/20/2021 shows an EF of 55% with mild left atrial enlargement COPD -Hold chronic prednisone 5 mg daily for Solu-Medrol -Hold home inhalers -Scheduled aerosols as above -Needs close outpatient pulmonary follow-up after discharge GERD -Continue PPI Chronic constipation -Continue lactulose as needed and MiraLAX scheduled -Continue as needed docusate Neuropathy -Continue gabapentin -Dosing is adjusted for renal failure -Continue oxycodone as needed Hypertension -Continue amlodipine -Continue carvedilol -Continue hydralazine Paroxysmal atrial fibrillation -Currently in normal sinus rhythm -Continue home carvedilol -Continue home Eliquis 2.5 mg twice daily 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 twice daily CODE STATUS -Full code Charges/Coding Visit Charges Inpatient E&M: 39186 Subs Hosp L2
[2022-06-08] MEDS: Gabapentin 300 MG Capsule PO (15:08)
[2022-06-08] MEDS: Montelukast 10 MG Tablet PO (20:21)
[2022-06-08] MEDS: Mirtazapine 15 MG Tablet 45 MG PO (20:22)
[2022-06-08] MEDS: Senna/Docusate Sodium 1 Tablet 2 TABLET PO (20:25)
[2022-06-09] VITALS (22 sets, daily range): BP systolic 123–155; BP diastolic 64–100; PULSE 61–102; RESP 12–22; TEMP 36.3–37.1; O2SAT 94–100
[2022-06-09] MEDS: Ipratropium/Albuterol Sulfate 3 ML AMPUL.NEB INHALATION ×5 (03:35→23:20)
[2022-06-09] MEDS: hydrALAZINE 50 MG Tablet 100 MG PO ×3 (04:19→21:39)
[2022-06-09] MEDS: oxyCODONE 5 MG Tablet 10 MG PO ×3 (04:19→21:38)
[2022-06-09 07:10] LABS: Absolute Lymphocyte Count 0.29 X10^3/uL (0.83-4.51); Basophil# 0.01 X10^3/uL; Basophil% 0.1 % (0-1); Hematocrit 27.5 % (37-47); Hemoglobin 7.9 g/dL (12.0-15.0); Lymphocyte # 0.29 X10^3/ul (0.83-4.51); Lymphocyte % 2.5 % (19-41); Mean Corp Hgb Conc 28.7 g/dL (32-36); Mean Corpuscular Volume 104.6 fL (81-99); Mean Platelet Vol. 9.9 fl (6.2-12.0); Monocyte# 0.36 X10^3/uL; NRBC Flagged by Analyzer 2.4 % (0-5); Neutrophil # 11.04 X10^3/uL (2.7-7.7); Neutrophil % 93.4 % (47-70); POSITIVE DIFFERENTIAL YES; POSITIVE MORPHOLOGY YES; Platelet Count 113 K/mm3 (150-450); RBC Distribution Width CV 21.8 % (11.6-14.6); RBC Distribution Width SD 83.3 fl (35.1-43.9); Red Blood Count 2.63 M/mm3 (4.2-5.4); White Blood Count 11.8 K/mm3 (4.4-11.0)
[2022-06-09 07:18] LABS: Differential Indicated SCAN CRITERIA MET
[2022-06-09 07:39] LABS: Anion Gap 13 (5-15); BUN 74 mg/dL (7-18); BUN/Creat Ratio 11.4 RATIO (10-20); Calcium,Total 7.6 mg/dL (8.5-10.1); Chloride 99 mmol/L (98-107); Creatinine, Serum 6.47 mg/dL (0.55-1.02); EST Glomerular Filtration Rate 7 mL/min (>60); Est Glom Filt Rate - Afr Amer 8 mL/min (>60); Estimated Creatinine Clearance 8.46 ml/min; Glucose 161 mg/dL (74-106); Potassium 4.7 mmol/L (3.5-5.1); Sodium Level 136 mmol/L (136-145)
[2022-06-09 08:18] LABS: Anisocytosis 1+
[2022-06-09] MEDS: Calcium Carbonate 500 MG Tablet PO ×2 (09:28→18:42)
--- NOTE | 2022-06-09 10:21 | CASEMGMT ---
MARIA GUADALUPE called [facility] and notified them that patient will be returning today. SW let them know patient is getting dialysis right now. SW was asked if there are any changes in meds. MARIA GUADALUPE explained SW will fax d/c instructions when in computer. SW also mentioned that physician is prescribing an albuterol inhaler and patient wanted it sent to [facility]'s pharmacy. Evy GONZAELZ
--- NOTE | 2022-06-09 10:34 | PN.RENAL_ITS ---
Subjective Subjective Seen on dialysis, denies any complaints. Tolerating treatment well. Objective Data Objective Data Vital Signs: Vital Signs Temp Pulse Resp BP Pulse Ox O2 Del Method O2 Flow Rate 97.6 F L 96 20 H 155/92 H 100 Nasal Cannula 4 06/09/22 10:17 06/09/22 10:17 06/09/22 10:17 06/09/22 10:17 06/09/22 10:17 06/09/22 10:17 06/09/22 10:17 FiO2 30 06/08/22 19:30 Oxygen Flow Rate (L/min) [ 4 AMBULATING with Oxygen #1] Oxygen Flow Rate (L/min) [At 2 REST with Oxygen] Oxygen Flow Rate (L/min) 4 Oxygen Delivery Method Nasal Cannula Weight: 72.5 kg Body Mass Index (BMI) 23.3 Intake & Output: Intake and Output for Last 24 Hours 06/07/22 06/08/22 06/09/22 23:59 23:59 23:59 Intake Total 1680 / 1680 1025 / 1025 170 / 170 Output Total 2500 / 2500 Balance -820 / -820 1025 / 1025 170 / 170 Lab / Micro Data Result Diagrams: 06/09/22 06:10 06/09/22 06:10 Labs: Laboratory Results - last 24 hr 06/09/22 06:10: Sodium 136, Potassium 4.7, Chloride 99, Carbon Dioxide 24.0, Anion Gap 13, BUN 74 H, Creatinine 6.47 H, Estim Creat Clear Calc 8.46, Est GFR (MDRD) Af Amer 8 L, Est GFR (MDRD) Non-Af 7 L, BUN/Creatinine Ratio 11.4, Glucose 161 H, Calcium 7.6 L 06/09/22 06:10: WBC 11.8 H, RBC 2.63 L, Hgb 7.9 L, Hct 27.5 L, MCV 104.6 H, MCH 30.0, MCHC 28.7 L, RDW Std Deviation 83.3 H, RDW Coeff of Destiny 21.8 H, Plt Count 113 L, MPV 9.9, Immature Gran % (Auto) 1.000 H, Neut % (Auto) 93.4 H, Lymph % (Auto) 2.5 L, [place] % (Auto) 3.0, Eos % (Auto) 0.0, Baso % (Auto) 0.1, Absolute Neuts (auto) 11.0 H, Absolute Lymphs (auto) 0.29 L, Nucleated RBC % 2.4, Differential Comment COMMENT, Anisocytosis 1+ Micro: Microbiology 06/07/22 18:27 Urine, Random Urine Culture - Final Mixed Gram Positive Organisms 06/06/22 09:10 Blood Culture (Wb) - Left Forearm Blood Culture - Preliminary No growth in 48 hours. 06/06/22 08:30 Blood Culture (Wb) - Arm Left Blood Culture - Preliminary No growth in 48 hours. 06/07/22 18:27 Urine, Random Legionella Antigen - Final 06/07/22 18:27 Urine, Random Streptococcus pneumoniae Antigen (M - Final 06/06/22 08:57 Mucosa - Nasopharyngeal Respiratory Panel (PCR) - Final 06/06/22 06:40 Nasal Secretion SARS-CoV-2 & FLU Antigen (Rapid) - Final Physical Exam Narrative Alert awake oriented x 3 s1s2 no murmurs Diminished breath sounds anteriorly and posteriorly with faint expiratory wheezing noted. No rales or rhonchi abdomen soft, no organomegaly no edema Tunneled HD catheter dressing C/D/I accessed for HD Assessment & Plan Assessment/Plan (1) ESRD (end stage renal disease) on dialysis: PLAN: - HD Sunday. Sunday, Sunday at [facility]. For dialysis today over 3.5 hours and attempt 1 to 2 L of fluid removal as patient/blood pressure tolerates. Recently patient has been cramping which has been limiting fluid removal with dialysis. Outpatient EDW 73.5 kg - CODP; breathing improved and off Bipap, on nasal cannula. IV ABX, duonebs, IV steroids. so far NGTD. - bps acceptable - hgb 8.3. Patient receives Mircera at kidney center, will monitor hgb trends. Last dose 200mcg on 06/12. - increase activity up to chair for meals. - discussed with discharge team and Dr. Nichols, possible discharge today.
--- NOTE | 2022-06-09 10:59 | PCM.DC.SUM ---
Providers Date of Admission: 06/06/22 Date of Discharge: 06/09/22 Primary Care Physician: JOE Angela Consultations 06/06/22 08:51 Consult: Nephrology Routine Consulting Provider: Soraida Sears Reason for Consult: ESRD, on HD EMERGENT Consult: No MD Notified: Yes Date Notified: 06/06/22 Time Notified: 10:46 Method of Notification: Answering Service Reason For Visit: AECOPD Diagnosis Discharge Diagnosis (1) ESRD (end stage renal disease) on dialysis: Status: Acute Code(s): N18.6 - End stage renal disease; Z99.2 - Dependence on renal dialysis Medications at Discharge Home Medications hydralazine 100 mg tablet 100 mg PO TID BLOOD PRESSURE 03/31/20 amlodipine 10 mg tablet 10 mg PO DAILY blood pressure 11/30/20 calcium acetate(phosphat bind) 667 mg capsule 2,001 mg PO TIDCM health maintenance 11/30/20 apixaban 2.5 mg tablet (Eliquis) 2.5 mg PO BID anticoagulant 01/08/21 mirtazapine 45 mg tablet 45 mg PO QHS INSOMNIA 01/08/21 dicyclomine 20 mg tablet 20 mg PO TID 02/26/21 gabapentin 300 mg capsule 300 mg PO SUTUTHSA NERVE PAIN 10/05/21 gabapentin 600 mg tablet 600 mg PO MOWEFR NERVE PAIN 10/05/21 omeprazole 20 mg capsule,delayed release 20 mg PO DAILY GERD 10/05/21 vit B,C-folic ac 800 mcg-zinc 12.5 mg-selen-D3 2,000 unit-vit E tablet (RenaPlex-D) 1 tab PO MOWEFR DIALYSIS 10/05/21 docusate sodium 100 mg tablet 200 mg PO BID PRN PRN constipation 10/25/21 lactulose 10 gram/15 mL oral solution 30 ml PO QHS PRN Constipation 10/25/21 montelukast 10 mg tablet (Singulair) 10 mg PO QHS ALLERGIES 10/25/21 oxycodone 10 mg tablet 10 mg PO BID PRN Breakthrough Pain 10/25/21 carvedilol 25 mg tablet 25 mg PO BID #0 tabs 12/21/21 midodrine 10 mg tablet 10 mg PO MOWEFR 02/23/22 prednisone 5 mg tablet 5 mg PO DAILY STEROID 02/23/22 duloxetine 60 mg capsule,delayed release 60 mg PO DAILY DEPRESSION 05/19/22 fluticasone 500 mcg-salmeterol 50 mcg/dose blistr powdr for inhalation (Advair Diskus) 1 inh inhalation BID 05/19/22 polyethylene glycol 3350 17 gram/dose oral powder (Miralax) 17 g PO DAILY CONSTIPATION 05/19/22 tiotropium bromide 2.5 mcg/actuation mist for inhalation (Spiriva Respimat) 2 puff inhalation DAILY 05/19/22 albuterol sulfate 2.5 mg/3 mL (0.083 %) solution for nebulization 2.5 mg (3 mL) inhalation Q2H PRN PRN SOB/Wheezing 30 days #90 mL 05/20/22 ipratropium 0.5 mg-albuterol 3 mg (2.5 mg base)/3 mL nebulization soln 3 ml inhalation Q4H.RT PRN shortness of breath or wheezing #180 mL 05/20/22 oxycodone 10 mg tablet 10 mg PO BID pain 06/07/22 albuterol sulfate 90 mcg/actuation aerosol inhaler 2 puff inhalation Q6H PRN shortness of breath or wheezing #8.5 grams 06/09/22 prednisone 10 mg tablet 10 mg PO DAILY #50 tabs 06/09/22 Hospital Course Operations None Procedures Dialysis Summary of Care Provided Minutes Spent on Discharge: 38 Hospital Course: Mrs. Ferrer is a 72-year-old white female who presents emergency department [facility] on 06/06/2022 with a chief complaint of shortness of breath. Patient is well-known with recurrent hospitalizations for shortness of breath and COPD exacerbations as well as decompensated congestive heart failure. Upon presentation emergency department she reported that she had worsening cough and dyspnea since 2 AM but had been doing fine prior to that. She had no other associated symptoms on presentation but was found to be febrile in the emergency department. She is noted to be chronically on 2 L of oxygen at rest and 4 L with exertion. She denied missing any dialysis and her last dialysis session was of day prior to presentation. She initially was placed on a nonrebreather by the EMS and was given a DuoNeb with oxygen saturations in the mid 90s but did have increased work of breathing. She was placed on BiPAP given her increased work of breathing and with her fever infectious work-up was pursued along with an ABG and she was started on empiric antibiotics along with of an aggressive pulmonary toilet and prednisone. Her troponin was found to be slightly elevated on presentation but given her lack of chest pain was felt to be predominantly related to her increased work of breathing and hypoxia and she had no further chest pain during her hospital course. She was admitted to the PCU and nephrology was consulted to continue her dialysis as an inpatient. Her COVID-19 and flu are negative. Respiratory PCR was negative. Strep pneumo and Legionella antigens were negative. Urine culture showed only mixed gram-positive organisms fall thought to be contaminant and the patient makes very little urine. She also had negative blood cultures. As noted above she did have a fever upon presentation with a T-max of 102.5 however all of her cultures were clear and she had no further fevers since the morning of her admission at 10 AM. Antimicrobials were continued through 06/09/2022 and till we had negative cultures and then they were discontinued. Her respiratory status dramatically improved and she felt good enough to be discharged on 06/09/2022. She was discharged with a very slow prednisone taper and we gave her a prescription for an albuterol inhaler to be placed in her purse. We did just refill her DuoNeb's for her nebulizer last month when she was here with a human metapneumovirus infection. Her last dialysis was on 06/09/2022 and she will be due for dialysis again on Sunday. We did make a follow-up appointment with pulmonary medicine as she has had no significant follow-up as of recently and feels that as soon as she goes off her prednisone she ends up with a flare again. She is on inhaler therapy which was reinitiated at discharge. Her oxygen saturations were tested at rest and with ambulation and she was on her baseline oxygen of 2 L with rest and 4 L with ambulation. She was discharged home in stable condition on 06/09/2022. 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 No fever since the day of admission. States she feels like she is ready to go home. Will assure follow-up with pulmonary medicine after discharge. Patient did indicate she will need a refill on her albuterol inhaler to take with her in her purse when she is not able to do her nebulizer. Const alert, oriented x3 and well nourished Constitutional Narrative: Older -Austrian female sitting up in bed currently on dialysis, no signs of respiratory distress at this time, appears comfortable, nontoxic, dialysis nurse at bedside General Appearance: cooperative, comfortable, well kempt and well developed Orientation / Consciousness: awake, oriented to person, oriented to place and oriented to time Exam Limitations: no limitations HEENT normocephalic, head/scalp atraumatic, hearing grossly normal bilaterally and moist oral mucous membranes HEENT Narrative: Mallampati is 2, no thrush, edentulous Eyes PERRL and EOMs intact bilaterally Eyes Narrative: Are pale bilaterally, no scleral icterus Neck no lymphadenopathy and supple Neck Narrative: Trachea midline, no thyroid enlargement Resp normal respiratory effort, no retractions, no use of accessory muscles and clear to auscultation bilaterally Resp Narrative: Diminished diffusely but no wheeze or other adventitious sounds noted at this time Auscultation: Negative for crackles, rhonchi or wheezes Cardio regular rate, regular rhythm, S1 normal heart sound, S2 normal heart sound, no murmurs, no rub, no gallops and no clicks GI normal to inspection, nondistended, normoactive bowel sounds, soft to palpation and non-tender Extremity normal to inspection and no clubbing, cyanosis or edema Extremity Narrative: 2+ pedal pulses Skin no rashes or lesions noted, no wounds, skin turgor normal and no jaundice Skin Narrative: Dialysis catheter right chest accessed with good flow, no signs of infection Neuro oriented x3, CN's II-XII intact bilaterally and moves all extremities Neuro Narrative: Generalized weakness proximal greater than distal but no focal deficits Speech: speech normal Psych affect normal Psych Narrative: Very pleasant and at her baseline Weight / BMI Weight Weight: 72.5 kg Body Mass Index (BMI) 23.3 ABG / Lab / Microbiology Data Result Diagrams: 06/09/22 06:10 06/09/22 06:10 Laboratory: Laboratory Results - last 24 hr 06/09/22 06:10: Sodium 136, Potassium 4.7, Chloride 99, Carbon Dioxide 24.0, Anion Gap 13, BUN 74 H, Creatinine 6.47 H, Estim Creat Clear Calc 8.46, Est GFR (MDRD) Af Amer 8 L, Est GFR (MDRD) Non-Af 7 L, BUN/Creatinine Ratio 11.4, Glucose 161 H, Calcium 7.6 L 06/09/22 06:10: WBC 11.8 H, RBC 2.63 L, Hgb 7.9 L, Hct 27.5 L, MCV 104.6 H, MCH 30.0, MCHC 28.7 L, RDW Std Deviation 83.3 H, RDW Coeff of Destiny 21.8 H, Plt Count 113 L, MPV 9.9, Immature Gran % (Auto) 1.000 H, Neut % (Auto) 93.4 H, Lymph % (Auto) 2.5 L, [place] % (Auto) 3.0, Eos % (Auto) 0.0, Baso % (Auto) 0.1, Absolute Neuts (auto) 11.0 H, Absolute Lymphs (auto) 0.29 L, Nucleated RBC % 2.4, Differential Comment COMMENT, Anisocytosis 1+ Microbiology: Microbiology 06/07/22 18:27 Urine, Random Urine Culture - Final Mixed Gram Positive Organisms 06/06/22 09:10 Blood Culture (Wb) - Left Forearm Blood Culture - Preliminary No growth in 48 hours. 06/06/22 08:30 Blood Culture (Wb) - Arm Left Blood Culture - Preliminary No growth in 48 hours. 06/07/22 18:27 Urine, Random Legionella Antigen - Final 06/07/22 18:27 Urine, Random Streptococcus pneumoniae Antigen (M - Final 06/06/22 08:57 Mucosa - Nasopharyngeal Respiratory Panel (PCR) - Final 06/06/22 06:40 Nasal Secretion SARS-CoV-2 & FLU Antigen (Rapid) - Final D/C Instructions Discharge Diet: 8 Cup Fluid Restriction, 4000 mg Sodium Diet and Renal Diet Discharge Activity: Return to Normal Activity Meaningful Use Info Meaningful Use Diagnoses (Choose all that apply): None applicable Discharge Plan Admission Admit Date/Time: 06/06/22 08:45 Primary Reason for Your Visit: Shortness of breath Attending Provider: Cailin Nichols Primary Care Provider: Yen Valdez LIQUID SUGAR MELTER Consulting Providers: Soraida Sears ; Nataliia Quezada Discharge Orders/Prescriptions Prescriptions: New prednisone 10 mg tablet 10 mg PO DAILY Qty: 50 0RF Rx Instructions: 4 tablets x 5 days, 3 tablets x 5 days, 2 tablets x 5 days, 1 tablet x 5 days, then restart home baseline prednisone albuterol sulfate 90 mcg/actuation HFA aerosol inhaler 2 puff inhalation Q6H PRN (Reason: shortness of breath or wheezing) Qty: 8.5 2RF Continued hydralazine 100 MG tablet 100 mg PO TID amlodipine 10 mg Tablet 10 mg PO DAILY calcium acetate(phosphat bind) 667 mg Capsule 2,001 mg PO TIDCM mirtazapine 45 mg Tablet 45 mg PO QHS Eliquis 2.5 mg Tablet 2.5 mg PO BID dicyclomine 20 mg tablet 20 mg PO TID Label Comments: Take 1 tablet by mouth three times daily before meals. gabapentin 600 mg tablet 600 mg PO MOWEFR Label Comments: 1 TABLET BY MOUTH EVERY (3P-6P AFTER DIALYSIS) DX: gabapentin 300 mg capsule 300 mg PO SUTUTHSA Label Comments: 1 CAPSULE BY MOUTH [id number] (3P-6P) DX:E omeprazole 20 mg capsule,delayed release(DR/EC) 20 mg PO DAILY Label Comments: 1 CAPSULE BY MOUTH ONCECDAILY DX: / NURSE TO REORDER RenaPlex-D 800 mcg-12.5 mg -2,000 unit tablet 1 tab PO MOWEFR Label Comments: TAKE 1 TABLET BY MOUTH EVERY DAY (ON DIALYSIS DAYS, TAKE AFTER DIALYSIS TREATMENT) montelukast [Singulair] 10 mg Tablet 10 mg PO QHS docusate sodium 100 mg Tablet 200 mg PO BID PRN PRN (Reason: constipation) lactulose 10 gram/15 mL Solution 30 ml PO QHS PRN (Reason: Constipation) oxycodone 10 mg Tablet 10 mg PO BID PRN (Reason: Breakthrough Pain) carvedilol 25 mg Tablet 25 mg PO BID Qty: 0 0RF midodrine 10 mg tablet 10 mg PO MOWEFR fluticasone propion-salmeterol [Advair Diskus] 500-50 mcg/dose Blister With Device 1 inh INHALATION BID Spiriva Respimat 2.5 mcg/actuation Mist 2 puff INHALATION DAILY duloxetine 60 mg capsule,delayed release(DR/EC) 60 mg PO DAILY polyethylene glycol 3350 [Miralax] 17 gram/dose powder 17 g PO DAILY ipratropium-albuterol 0.5 mg-3 mg(2.5 mg base)/3 mL Solution For Nebulization 3 ml inhalation Q4H.RT PRN (Reason: shortness of breath or wheezing) Qty: 180 1RF albuterol sulfate 2.5 mg /3 mL (0.083 %) Solution For Nebulization 2.5 mg inhalation Q2H PRN PRN (Reason: SOB/Wheezing) 30 Days Qty: 90 1RF oxycodone 10 mg Tablet 10 mg PO BID Held prednisone 5 mg tablet 5 mg PO DAILY Hold Instructions: Restart once taper is completed Referrals / Follow Up: Vamsi Moya MD [Med Staff - Active Staff] - 06/29/22 7:45 am Yen Valdez LIQU[employer] SUGAR MELTER, LIQU[employer] SUGAR MELTER-C [Primary Care Provider] - Within 2 Weeks Disposition Disposition (needs filled in before D/C Order can be placed): Assisted Living Charges/Coding Visit Charges Inpatient E&M: 24394 Disch Hosp
--- NOTE | 2022-06-09 11:10 | DIALYSIS ---
Hemodialysis x 3.5 hours, net UF 2000 ml, VSS. Blood returned to patient at end of treatment. HD catheter ports closed with heparin. RN report at bedside.
--- NOTE | 2022-06-09 11:25 | CASEMGMT ---
ELECTRICAL JOURNEYMAN notified SW that patient has changed her mind about going back to assisted living. SW went to patient's room and she said she wants to go to [facility]. Patient declined a list of SNF's. SW notified physician. MARIA GUADALUPE also notified Adele nurse at [facility] of this change in plans. Await acceptance from [facility] and pre-cert from insurance. Plan: d/c to [facility] pending acceptance and pre-cert. Evy Paredes MARKET RESEARCH INTERN CAROLS
--- NOTE | 2022-06-09 11:35 | CASEMGMT ---
Discharge Deputy Sheriff Custody This junior technical writer sent a referral to [facility] via [facility]. Sally SPRAGUE Gang Rider
[2022-06-09] MEDS: DULoxetine Hcl 60 MG Capsule PO (13:50)
[2022-06-09] MEDS: Carvedilol 25 MG Tablet PO ×2 (13:50→21:39)
[2022-06-09] MEDS: APIXABAN 2.5 MG TABLET (WCH) PO ×2 (13:51→21:39)
[2022-06-09] MEDS: guaiFENesin 1,200 MG Tablet 1200 MG PO ×2 (13:52→21:38)
[2022-06-09] MEDS: amLODIPine 10 MG Tablet PO (13:52)
[2022-06-09] MEDS: Midodrine HCl 5 MG Tablet 10 MG PO (13:53)
[2022-06-09] MEDS: Pantoprazole Sodium 20 MG Tablet PO (13:53)
--- NOTE | 2022-06-09 15:49 | CASEMGMT ---
MARIA GUADALUPE spoke with [facility] and they are looking at referral. Evy Paredes PROGRAM MEDICAL DIRECTOR CARLOS
--- NOTE | 2022-06-09 20:59 | CPS ---
Pt refused BIPAP for the night
[2022-06-09] MEDS: 0.9% Saline Lock 10 ML Syringe IV (21:39)
[2022-06-09] MEDS: Montelukast 10 MG Tablet PO (21:39)
[2022-06-09] MEDS: Mirtazapine 15 MG Tablet 45 MG PO (21:39)
[2022-06-10] VITALS (18 sets, daily range): BP systolic 118–160; BP diastolic 68–90; PULSE 68–95; RESP 12–21; TEMP 36.7–36.8; O2SAT 99–100
[2022-06-10] MEDS: hydrALAZINE 50 MG Tablet 100 MG PO ×3 (05:07→21:10)
[2022-06-10] MEDS: Ipratropium/Albuterol Sulfate 3 ML AMPUL.NEB INHALATION ×4 (07:09→22:47)
[2022-06-10 07:12] LABS: Absolute Neutrophil Count 9.2 X10^3/uL (2.0-7.7); Basophil# 0.01 X10^3/uL; Basophil% 0.1 % (0-1); Hematocrit 27.7 % (37-47); Hemoglobin 8.3 g/dL (12.0-15.0); Mean Corpuscular Hgb 31.3 pg (27.0-32.0); Mean Corpuscular Volume 104.5 fL (81-99); Mean Platelet Vol. 9.9 fl (6.2-12.0); Monocyte# 0.31 X10^3/uL; Monocyte% 3.1 % (0-10); NRBC Flagged by Analyzer 1.7 % (0-5); Neutrophil # 9.18 X10^3/uL (2.7-7.7); Neutrophil % 92.1 % (47-70); POSITIVE DIFFERENTIAL YES; POSITIVE MORPHOLOGY YES; Platelet Count 102 K/mm3 (150-450); RBC Distribution Width CV 21.4 % (11.6-14.6); RBC Distribution Width SD 83.6 fl (35.1-43.9); Red Blood Count 2.65 M/mm3 (4.2-5.4)
[2022-06-10 07:20] LABS: Differential Indicated SCAN CRITERIA MET
[2022-06-10] MEDS: Carvedilol 25 MG Tablet PO ×2 (10:31→21:10)
[2022-06-10] MEDS: APIXABAN 2.5 MG TABLET (WCH) PO ×2 (10:31→21:11)
[2022-06-10] MEDS: guaiFENesin 1,200 MG Tablet 1200 MG PO ×2 (10:31→21:10)
[2022-06-10] MEDS: DULoxetine Hcl 60 MG Capsule PO (10:31)
[2022-06-10] MEDS: Pantoprazole Sodium 20 MG Tablet PO (10:32)
[2022-06-10] MEDS: amLODIPine 10 MG Tablet PO (10:32)
[2022-06-10] MEDS: Polyethylene Glycol 3350 17 GM PACKET PO (10:32)
[2022-06-10] MEDS: oxyCODONE 5 MG Tablet 10 MG PO ×2 (10:32→21:11)
--- NOTE | 2022-06-10 13:08 | PN.HOSP_ITS ---
Subjective Subjective After discharge placed yesterday patient decided to go to nursing facility and now we are currently waiting for acceptance and pre-CERT. No significant issues other than some heartburn through the night. She did take some Tums and states initially it helped but the second time it did not as much. Denies any specific chest pain or worsening shortness of breath. Tolerated dialysis well yesterday. Objective Data Objective Data Vital Signs: Vital Signs Temp Pulse Resp BP Pulse Ox O2 Del Method O2 Flow Rate 98.1 F 92 18 156/90 H 99 Nasal Cannula 4.5 06/10/22 09:35 06/10/22 09:35 06/10/22 09:35 06/10/22 09:35 06/10/22 10:08 06/10/22 09:35 06/10/22 10:08 FiO2 30 06/09/22 14:59 Oxygen Flow Rate (L/min) [ 4 AMBULATING with Oxygen #1] Oxygen Flow Rate (L/min) [At 2 REST with Oxygen] Oxygen Flow Rate (L/min) 4.5 Oxygen Delivery Method Nasal Cannula Weight: 73.4 kg Body Mass Index (BMI) 23.3 Intake & Output: Intake and Output for Last 24 Hours 06/08/22 06/09/22 06/10/22 23:59 23:59 23:59 Intake Total 1025 / 1025 950 / 950 460 / 460 Output Total 0 / 0 0 / 0 Balance 1025 / 1025 950 / 950 460 / 460 Lab / Micro Data Result Diagrams: 06/10/22 05:58 06/09/22 06:10 Labs: Laboratory Results - last 24 hr 06/10/22 05:58: WBC 10.0, RBC 2.65 L, Hgb 8.3 L, Hct 27.7 L, MCV 104.5 H, MCH 31.3, MCHC 30.0 L, RDW Std Deviation 83.6 H, RDW Coeff of Destiny 21.4 H, Plt Count 102 L, MPV 9.9, Immature Gran % (Auto) 0.700, Neut % (Auto) 92.1 H, Lymph % (Auto) 4.0 L, [place] % (Auto) 3.1, Eos % (Auto) 0.0, Baso % (Auto) 0.1, Absolute Neuts (auto) 9.2 H, Absolute Lymphs (auto) 0.40 L, Nucleated RBC % 1.7 Micro: Microbiology 06/07/22 18:27 Urine, Random Urine Culture - Final Mixed Gram Positive Organisms 06/06/22 09:10 Blood Culture (Wb) - Left Forearm Blood Culture - Preliminary No growth in 48 hours. 06/06/22 08:30 Blood Culture (Wb) - Arm Left Blood Culture - Preliminary No growth in 48 hours. 06/07/22 18:27 Urine, Random Legionella Antigen - Final 06/07/22 18:27 Urine, Random Streptococcus pneumoniae Antigen (M - Final 06/06/22 08:57 Mucosa - Nasopharyngeal Respiratory Panel (PCR) - Final 06/06/22 06:40 Nasal Secretion SARS-CoV-2 & FLU Antigen (Rapid) - Final Physical Exam Const alert, oriented x3, no apparent distress and well nourished Constitutional Narrative: Older -[place]an female sitting up in a chair at the bedside, no signs of respiratory distress at this time, appears comfortable, nontoxic, nursing at bedside HEENT normocephalic, head/scalp atraumatic, hearing grossly normal bilaterally and moist oral mucous membranes HEENT Narrative: No thrush, Mallampati 2, edentulous Resp normal respiratory effort, no retractions, no use of accessory muscles and clear to auscultation bilaterally Resp Narrative: Diminished diffusely with few scattered wheeze Auscultation: wheezes; Negative for crackles or rhonchi Cardio regular rate, regular rhythm, S1 normal heart sound, S2 normal heart sound, no murmurs, no rub, no gallops and no clicks GI normal to inspection, nondistended, normoactive bowel sounds, soft to palpation and non-distended GI Narrative: Mild tenderness in epigastrium Extremity no clubbing, cyanosis or edema Extremity Narrative: 2+ pedal pulses Skin no rashes or lesions noted, no wounds, skin turgor normal and no jaundice Skin Narrative: Dialysis catheter right chest accessed with good flow, no signs of infection Neuro oriented x3 and moves all extremities Neuro Narrative: Generalized weakness proximal greater than distal but no focal deficits Speech: speech normal Psych affect normal Psych Narrative: Very pleasant and at her baseline Assessment & Plan Assessment/Plan (1) ESRD (end stage renal disease) on dialysis: PLAN: Plan Chronic hypoxic respiratory failure with shortness of breath secondary to COPD exacerbation -Oxygen has been weaned to 4 L and when tested she tolerated 2 L at rest and 4 L with exertion having oxygen saturations at 93 to 94% with exertion -Clinically stable on baseline oxygen -Continue Solu-Medrol but decrease to 40 twice daily and will wean to prednisone 40 mg daily if remains stable through tomorrow -Aggressive pulmonary toilet with scheduled and as needed DuoNebs -I-S/Pep therapy -Scheduled Mucinex -Strep pneumo Legionella antigens are negative -COVID-19 and flu are negative -Respiratory viral panel was negative -Did have recent infection in mid May with human metapneumovirus for which she had a short hospitalization -Continue current antibiotics with azithromycin and Zosyn given fevers at presentation -Continue BiPAP as needed -Monitor on telemetry -Outpatient pulmonary follow-up after discharge Fever -infectious work-up neg -T-max was 102.5 on the day of presentation however she has been afebrile since the evening of 06/06/2022 -Continued on 06/09/2022 Heartburn -We will repeat troponin to make sure this is not cardiac -Telemetry with no change -Has had several stable EKGs -Increase Protonix to 40 mg daily -If troponin stable will add GI cocktail End-stage renal disease-HD dependent -Nephrology following -Continue midodrine with dialysis -HD MWF -Continue phosphate binder -Renally dose all medications Diastolic heart failure -X-ray appears stable in appearance from previous -Continue home cardiac medications -Most recent echo from 04/20/2021 shows an EF of 55% with mild left atrial enlargement COPD -Hold chronic prednisone 5 mg daily for Solu-Medrol -Hold home inhalers -Scheduled aerosols as above -Needs close outpatient pulmonary follow-up after discharge GERD -Continue PPI Chronic constipation -Continue lactulose as needed and MiraLAX scheduled -Continue as needed docusate Neuropathy -Continue gabapentin -Dosing is adjusted for renal failure -Continue oxycodone as needed Hypertension -Continue amlodipine -Continue carvedilol -Continue hydralazine Paroxysmal atrial fibrillation -Currently in normal sinus rhythm -Continue home carvedilol -Continue home Eliquis 2.5 mg twice daily 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 twice daily CODE STATUS -Full code Charges/Coding Visit Charges Inpatient E&M: 50769 Subs Hosp L2
[2022-06-10] MEDS: Lactulose 20 GM/30 ML UDC PO (13:34)
[2022-06-10 13:40] LABS: Troponin-I HS 52 pg/mL (3.0-54.0)
[2022-06-10] MEDS: Gabapentin 300 MG Capsule PO (13:45)
[2022-06-10] MEDS: Mag Hydrox/Al Hydrox/Simeth 30 ML UDC PO (15:29)
[2022-06-10] MEDS: Montelukast 10 MG Tablet PO (21:11)
[2022-06-10] MEDS: Mirtazapine 15 MG Tablet 45 MG PO (21:11)
[2022-06-11] VITALS (17 sets, daily range): BP systolic 150–160; BP diastolic 61–78; PULSE 63–76; RESP 12–20; TEMP 36.6–36.9; O2SAT 98–100
[2022-06-11] MEDS: Ipratropium/Albuterol Sulfate 3 ML AMPUL.NEB INHALATION ×5 (03:55→22:23)
[2022-06-11] MEDS: hydrALAZINE 50 MG Tablet 100 MG PO ×3 (05:13→21:01)
[2022-06-11] MEDS: oxyCODONE 5 MG Tablet 10 MG PO ×2 (09:27→21:01)
[2022-06-11] MEDS: APIXABAN 2.5 MG TABLET (WCH) PO ×2 (09:27→21:01)
[2022-06-11] MEDS: Carvedilol 25 MG Tablet PO ×2 (09:27→21:01)
[2022-06-11] MEDS: guaiFENesin 1,200 MG Tablet 1200 MG PO ×2 (09:27→21:01)
[2022-06-11] MEDS: DULoxetine Hcl 60 MG Capsule PO (09:27)
[2022-06-11] MEDS: amLODIPine 10 MG Tablet PO (09:27)
[2022-06-11] MEDS: Polyethylene Glycol 3350 17 GM PACKET PO (09:28)
[2022-06-11] MEDS: 0.9% Saline Lock 10 ML Syringe IV (09:29)
[2022-06-11] MEDS: Lactulose 20 GM/30 ML UDC PO (09:38)
[2022-06-11] MEDS: Pantoprazole Sodium 40 MG Tablet PO (09:38)
--- NOTE | 2022-06-11 13:47 | PCM.PN.HOSP ---
Subjective Subjective Had brief episode of shortness of breath overnight. Wore CPAP with resolution. Back to baseline oxygen supplementation today. Denies any shortness of breath at the time of my evaluation. Still awaiting placement and pre-CERT. Objective Data Objective Data Vital Signs: Vital Signs Temp Pulse Resp BP Pulse Ox O2 Del Method O2 Flow Rate 98.1 F 72 18 160/61 H 100 Nasal Cannula 2 06/11/22 09:10 06/11/22 09:10 06/11/22 09:10 06/11/22 09:10 06/11/22 09:10 06/11/22 09:21 06/11/22 09:21 FiO2 30 06/11/22 03:55 Oxygen Flow Rate (L/min) [ 4 AMBULATING with Oxygen #1] Oxygen Flow Rate (L/min) [At 2 REST with Oxygen] Oxygen Flow Rate (L/min) 2 Oxygen Delivery Method Nasal Cannula Weight: 73.8 kg Body Mass Index (BMI) 23.3 Intake & Output: Intake and Output for Last 24 Hours 06/09/22 06/10/22 06/11/22 23:59 23:59 23:59 Intake Total 950 / 950 1040 / 1040 500 / 500 Output Total 0 / 0 0 / 0 50 / 50 Balance 950 / 950 1040 / 1040 450 / 450 Lab / Micro Data Result Diagrams: 06/10/22 05:58 06/09/22 06:10 Micro: Microbiology 06/06/22 09:10 Blood Culture (Wb) - Left Forearm Blood Culture - Final No growth in 5 days. 06/06/22 08:30 Blood Culture (Wb) - Arm Left Blood Culture - Final No growth in 5 days. 06/07/22 18:27 Urine, Random Urine Culture - Final Mixed Gram Positive Organisms 06/07/22 18:27 Urine, Random Legionella Antigen - Final 06/07/22 18:27 Urine, Random Streptococcus pneumoniae Antigen (M - Final 06/06/22 08:57 Mucosa - Nasopharyngeal Respiratory Panel (PCR) - Final 06/06/22 06:40 Nasal Secretion SARS-CoV-2 & FLU Antigen (Rapid) - Final Physical Exam Const alert, oriented x3, no apparent distress and well nourished Constitutional Narrative: Older -[place]amb[place]ian female sitting up in bed, no signs of respiratory distress at this time, appears comfortable, nontoxic HEENT normocephalic, head/scalp atraumatic and moist oral mucous membranes HEENT Narrative: No thrush, edentulous, Mallampati 2 Resp normal respiratory effort, no retractions, no use of accessory muscles and clear to auscultation bilaterally Resp Narrative: Diminished diffusely with few scattered wheeze Auscultation: wheezes; Negative for crackles or rhonchi Cardio regular rate, regular rhythm, S1 normal heart sound, S2 normal heart sound, no murmurs, no rub, no gallops and no clicks GI normal to inspection, nondistended, normoactive bowel sounds, soft to palpation, non-tender and non-distended Extremity no clubbing, cyanosis or edema Extremity Narrative: 2+ pedal pulses Skin no rashes or lesions noted, no wounds, skin turgor normal and no jaundice Skin Narrative: Dialysis catheter right chest, no signs of infection Neuro oriented x3, CN's II-XII intact bilaterally and moves all extremities Neuro Narrative: Generalized weakness proximal greater than distal but no focal deficits Speech: speech normal Psych affect normal Psych Narrative: Very pleasant and at her baseline Assessment & Plan Assessment/Plan (1) ESRD (end stage renal disease) on dialysis: PLAN: Plan Chronic hypoxic respiratory failure with shortness of breath secondary to COPD exacerbation -Oxygen has been weaned to 4 L and when tested she tolerated 2 L at rest and 4 L with exertion having oxygen saturations at 93 to 94% with exertion -Clinically stable on baseline oxygen -Continue IV Solu-Medrol 40 twice daily -Aggressive pulmonary toilet with scheduled and as needed DuoNebs -I-S/Pep therapy -Scheduled Mucinex -Strep pneumo Legionella antigens are negative -COVID-19 and flu are negative -Respiratory viral panel was negative -Did have recent infection in mid May with human metapneumovirus for which she had a short hospitalization -Continue current antibiotics with azithromycin and Zosyn given fevers at presentation -Continue BiPAP as needed -Monitor on telemetry -Outpatient pulmonary follow-up after discharge\ -Suspect patient would benefit from nocturnal trilogy if she is able to qualify Fever -infectious work-up neg -T-max was 102.5 on the day of presentation however she has been afebrile since the evening of 06/06/2022 -Continued on 06/09/2022 Heartburn -Troponin normal -Telemetry with no change -Has had several stable EKGs -Sinew increased Protonix -Resolved today End-stage renal disease-HD dependent -Nephrology following -Continue midodrine with dialysis -HD MWF -Continue phosphate binder -Renally dose all medications Diastolic heart failure -X-ray appears stable in appearance from previous -Continue home cardiac medications -Most recent echo from 04/20/2021 shows an EF of 55% with mild left atrial enlargement COPD -Hold chronic prednisone 5 mg daily for Solu-Medrol -Hold home inhalers -Scheduled aerosols as above -Needs close outpatient pulmonary follow-up after discharge GERD -Continue PPI Chronic constipation -Continue lactulose as needed and MiraLAX scheduled -Continue as needed docusate Neuropathy -Continue gabapentin -Dosing is adjusted for renal failure -Continue oxycodone as needed Hypertension -Continue amlodipine -Continue carvedilol -Continue hydralazine Paroxysmal atrial fibrillation -Currently in normal sinus rhythm -Continue home carvedilol -Continue home Eliquis 2.5 mg twice daily 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 twice daily CODE STATUS -Full code Charges/Coding Visit Charges Inpatient E&M: 45447 Subs Hosp L2
[2022-06-11] MEDS: Gabapentin 300 MG Capsule PO (14:04)
[2022-06-11] MEDS: Montelukast 10 MG Tablet PO (21:01)
[2022-06-11] MEDS: Mirtazapine 15 MG Tablet 45 MG PO (21:02)
--- NOTE | 2022-06-11 22:28 | CPS ---
Pt refusing BiPAP tonight
[2022-06-12] VITALS (22 sets, daily range): BP systolic 128–174; BP diastolic 57–92; PULSE 62–98; RESP 12–32; TEMP 36.4–36.9; O2SAT 97–100
[2022-06-12] MEDS: hydrALAZINE 50 MG Tablet 100 MG PO ×2 (06:29→21:12)
[2022-06-12] MEDS: Ipratropium/Albuterol Sulfate 3 ML AMPUL.NEB INHALATION ×5 (06:43→23:22)
[2022-06-12 06:57] LABS: Absolute Lymphocyte Count 1.13 X10^3/uL (0.83-4.51); Absolute Neutrophil Count 7.1 X10^3/uL (2.0-7.7); Basophil# 0.02 X10^3/uL; Basophil% 0.2 % (0-1); Eosinophil# 0.05 X10^3/uL; Eosinophils% 0.6 % (0-5); Hematocrit 27.6 % (37-47); Hemoglobin 8.1 g/dL (12.0-15.0); Lymphocyte # 1.13 X10^3/ul (0.83-4.51); Lymphocyte % 12.5 % (19-41); Mean Corp Hgb Conc 29.3 g/dL (32-36); Mean Corpuscular Hgb 30.2 pg (27.0-32.0); Mean Platelet Vol. 10.3 fl (6.2-12.0); Monocyte# 0.55 X10^3/uL; Monocyte% 6.1 % (0-10); NRBC Flagged by Analyzer 2.4 % (0-5); Neutrophil # 7.14 X10^3/uL (2.7-7.7); POSITIVE MORPHOLOGY YES; Platelet Count 134 K/mm3 (150-450); RBC Distribution Width CV 21.2 % (11.6-14.6); RBC Distribution Width SD 80.3 fl (35.1-43.9); Red Blood Count 2.68 M/mm3 (4.2-5.4)
[2022-06-12 06:58] LABS: Differential Indicated SCAN CRITERIA MET
[2022-06-12 07:02] LABS: Anion Gap 11 (5-15); BUN 93 mg/dL (7-18); BUN/Creat Ratio 12.7 RATIO (10-20); Calcium,Total 8.1 mg/dL (8.5-10.1); Chloride 100 mmol/L (98-107); Creatinine, Serum 7.35 mg/dL (0.55-1.02); EST Glomerular Filtration Rate 6 mL/min (>60); Est Glom Filt Rate - Afr Amer 7 mL/min (>60); Estimated Creatinine Clearance 7.44 ml/min; Glucose 87 mg/dL (74-106); Potassium 5.1 mmol/L (3.5-5.1); Sodium Level 137 mmol/L (136-145)
[2022-06-12 07:27] LABS: Anisocytosis 2+; Macrocytosis RARE; Platelet Estimate SLT DEC (ADEQ)
[2022-06-12 07:29] LABS: Polychromasia 1+
--- NOTE | 2022-06-12 07:51 | CASEMGMT ---
Discharge Supervisor Publications Production This narrative writer called [facility]. Pre-cert has not been started. Alexsandra from [facility] stated this narrative writer never told her when patient is ready for d/c. Message in Care Port clearly states the information that was given to Alexsandra. Sally SPRAGUE Purchasing Clerk
--- NOTE | 2022-06-12 08:41 | CASEMGMT ---
Discharge Dynamiter This writer editor sent updates to [place]. Sally SPRAGUE Signwriter
--- NOTE | 2022-06-12 08:48 | PCM.PN.HOSP ---
Subjective Subjective Seen and examined. Patient refused BiPAP last night. On 2 L of oxygen. Mild shortness of breath with wheezing. Objective Data Objective Data Vital Signs: Vital Signs Temp Pulse Resp BP Pulse Ox O2 Del Method O2 Flow Rate 98.5 F 68 20 H 147/86 H 100 Nasal Cannula 2 06/12/22 02:57 06/12/22 07:00 06/12/22 06:43 06/12/22 02:57 06/12/22 06:43 06/12/22 08:31 06/12/22 08:31 FiO2 8 06/12/22 06:43 Oxygen Flow Rate (L/min) [ 4 AMBULATING with Oxygen #1] Oxygen Flow Rate (L/min) [At 2 REST with Oxygen] Oxygen Flow Rate (L/min) 2 Oxygen Delivery Method Nasal Cannula Weight: 161 lb 2.526 oz Body Mass Index (BMI) 23.3 Intake & Output: Intake and Output for Last 24 Hours 06/10/22 06/11/22 06/12/22 23:59 23:59 23:59 Intake Total 1040 / 1040 500 / 500 Output Total 0 / 0 50 / 50 Balance 1040 / 1040 450 / 450 Lab / Micro Data Result Diagrams: 06/12/22 06:05 06/12/22 06:05 Labs: Laboratory Results - last 24 hr 06/12/22 06:05: WBC 9.0, RBC 2.68 L, Hgb 8.1 L, Hct 27.6 L, MCV 103.0 H, MCH 30.2, MCHC 29.3 L, RDW Std Deviation 80.3 H, RDW Coeff of Destiny 21.2 H, Plt Count 134 L, MPV 10.3, Immature Gran % (Auto) 1.600 H, Neut % (Auto) 79.0 H, Lymph % (Auto) 12.5 L, [place] % (Auto) 6.1, Eos % (Auto) 0.6, Baso % (Auto) 0.2, Absolute Neuts (auto) 7.1, Absolute Lymphs (auto) 1.13, Nucleated RBC % 2.4, Platelet Estimate SLT DEC, Polychromasia 1+, Anisocytosis 2+, Macrocytosis RARE 06/12/22 06:05: Sodium 137, Potassium 5.1, Chloride 100, Carbon Dioxide 26.0, Anion Gap 11, BUN 93 H, Creatinine 7.35 H, Estim Creat Clear Calc 7.44, Est GFR (MDRD) Af Amer 7 L, Est GFR (MDRD) Non-Af 6 L, BUN/Creatinine Ratio 12.7, Glucose 87, Calcium 8.1 L Micro: Microbiology 06/06/22 09:10 Blood Culture (Wb) - Left Forearm Blood Culture - Final No growth in 5 days. 06/06/22 08:30 Blood Culture (Wb) - Arm Left Blood Culture - Final No growth in 5 days. 06/07/22 18:27 Urine, Random Urine Culture - Final Mixed Gram Positive Organisms 06/07/22 18:27 Urine, Random Legionella Antigen - Final 06/07/22 18:27 Urine, Random Streptococcus pneumoniae Antigen (M - Final 06/06/22 08:57 Mucosa - Nasopharyngeal Respiratory Panel (PCR) - Final 06/06/22 06:40 Nasal Secretion SARS-CoV-2 & FLU Antigen (Rapid) - Final Physical Exam Narrative Seen and examined. General: Alert, Oriented x3, Cooperative HEENT: Atraumatic, PERRLA, EOMI, Normocephalic Oral: No Gingival or Mucosal Lesions/ Ulcerations Neck: Supple, No JVD, Negative Carotid Bruits Lungs: Air entry diminished in bilateral lungs. Bilateral wheezing/rhonchi. Cardiovascular: Regular rate, Regular Rhythm, Normal S1, Normal S2, No murmurs Abdomen: Bowel Sounds Present, Soft, Non Tender, Non-Distended : No renal angle tenderness. No suprapubic tenderness. Extremities: No edema, Capillary Refill Less than 3 Seconds Skin: No rashes, No breakdown Musculoskeletal: No Tenderness to Palpation of Joints or Extremities. Muscle strength 4/5 at major joints of LEs. Neurological: Cranial nerves II-XII grossly intact, DTR 2+/4. No acute FND. Psych/Mental Status: Flat affect. Assessment & Plan Assessment/Plan (1) ESRD (end stage renal disease) on dialysis: PLAN: Plan Chronic hypoxic respiratory failure with shortness of breath secondary to COPD exacerbation -Oxygen has been weaned to 4 L and when tested she tolerated 2 L at rest and 4 L with exertion having oxygen saturations at 93 to 94% with exertion. Patient has been refusing BiPAP at night. Currently on baseline oxygen. -Change IV Solu-Medrol to prednisone 40 mg daily. Will need long taper. Patient had fever T-max 102.5 on day of admission but had been afebrile. Patient infectious work-up was negative. -Aggressive pulmonary toilet with scheduled and as needed DuoNebs -I-S/Pep therapy -Scheduled Mucinex -Strep pneumo Legionella antigens are negative -COVID-19 and flu are negative -Respiratory viral panel was negative -Did have recent infection in mid May with human metapneumovirus for which she had a short hospitalization -Continue current antibiotics with azithromycin and Zosyn given fevers at presentation -Continue BiPAP as needed -Monitor on telemetry -Outpatient pulmonary follow-up after discharge\ -Suspect patient would benefit from nocturnal trilogy if she is able to qualify End-stage renal disease-HD dependent -Nephrology following -Continue midodrine with dialysis -HD MWF -Continue phosphate binder -Renally dose all medications Chronic diastolic heart failure -X-ray appears stable in appearance from previous -Continue home cardiac medications -Most recent echo from 04/20/2021 shows an EF of 55% with mild left atrial enlargement COPD exacerbation: Patient on prednisone 5 mg daily chronically. Rest as mentioned above GERD -Continue PPI Chronic constipation -Continue lactulose as needed and MiraLAX scheduled -Continue as needed docusate Neuropathy -Continue gabapentin -Dosing is adjusted for renal failure -Continue oxycodone as needed Hypertension -Continue amlodipine -Continue carvedilol -Continue hydralazine Paroxysmal atrial fibrillation -Currently in normal sinus rhythm -Continue home carvedilol -Continue home Eliquis 2.5 mg twice daily 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 twice daily CODE STATUS -Full code Awaiting pre-CERT. Discussed with the client support analyst. Charges/Coding Visit Charges Inpatient E&M: 54193 Subs Hosp L2
[2022-06-12] MEDS: Polyethylene Glycol 3350 17 GM PACKET PO (09:30)
[2022-06-12] MEDS: guaiFENesin 1,200 MG Tablet 1200 MG PO ×2 (09:30→21:12)
[2022-06-12] MEDS: Pantoprazole Sodium 40 MG Tablet PO (09:30)
[2022-06-12] MEDS: APIXABAN 2.5 MG TABLET (WCH) PO ×2 (09:31→21:12)
[2022-06-12] MEDS: oxyCODONE 5 MG Tablet 10 MG PO ×2 (09:31→21:11)
[2022-06-12] MEDS: Carvedilol 25 MG Tablet PO ×2 (09:31→21:19)
[2022-06-12] MEDS: DULoxetine Hcl 60 MG Capsule PO (09:31)
[2022-06-12] MEDS: amLODIPine 10 MG Tablet PO (09:31)
--- NOTE | 2022-06-12 11:49 | PN.RENAL_ITS ---
Subjective Subjective Resting in bed, complains of shortness of breath. No overnight events Objective Data Objective Data Vital Signs: Vital Signs Temp Pulse Resp BP Pulse Ox O2 Del Method O2 Flow Rate 97.7 F L 72 18 156/57 H 99 Nasal Cannula 2 06/12/22 09:00 06/12/22 11:00 06/12/22 09:00 06/12/22 09:00 06/12/22 09:00 06/12/22 09:00 06/12/22 09:00 FiO2 8 06/12/22 06:43 Oxygen Flow Rate (L/min) [ 4 AMBULATING with Oxygen #1] Oxygen Flow Rate (L/min) [At 2 REST with Oxygen] Oxygen Flow Rate (L/min) 2 Oxygen Delivery Method Nasal Cannula Weight: 73.1 kg Body Mass Index (BMI) 23.3 Intake & Output: Intake and Output for Last 24 Hours 06/10/22 06/11/22 06/12/22 23:59 23:59 23:59 Intake Total 1040 / 1040 500 / 500 240 / 240 Output Total 0 / 0 50 / 50 Balance 1040 / 1040 450 / 450 240 / 240 Lab / Micro Data Result Diagrams: 06/12/22 06:05 06/12/22 06:05 Labs: Laboratory Results - last 24 hr 06/12/22 06:05: WBC 9.0, RBC 2.68 L, Hgb 8.1 L, Hct 27.6 L, MCV 103.0 H, MCH 30.2, MCHC 29.3 L, RDW Std Deviation 80.3 H, RDW Coeff of Destiny 21.2 H, Plt Count 134 L, MPV 10.3, Immature Gran % (Auto) 1.600 H, Neut % (Auto) 79.0 H, Lymph % (Auto) 12.5 L, [place] % (Auto) 6.1, Eos % (Auto) 0.6, Baso % (Auto) 0.2, Absolute Neuts (auto) 7.1, Absolute Lymphs (auto) 1.13, Nucleated RBC % 2.4, Platelet Estimate SLT DEC, Polychromasia 1+, Anisocytosis 2+, Macrocytosis RARE 06/12/22 06:05: Sodium 137, Potassium 5.1, Chloride 100, Carbon Dioxide 26.0, An ion Gap 11, BUN 93 H, Creatinine 7.35 H, Estim Creat Clear Calc 7.44, Est GFR (MDRD) Af Amer 7 L, Est GFR (MDRD) Non-Af 6 L, BUN/Creatinine Ratio 12.7, Glucose 87, Calcium 8.1 L Micro: Microbiology 06/06/22 09:10 Blood Culture (Wb) - Left Forearm Blood Culture - Final No growth in 5 days. 06/06/22 08:30 Blood Culture (Wb) - Arm Left Blood Culture - Final No growth in 5 days. 06/07/22 18:27 Urine, Random Urine Culture - Final Mixed Gram Positive Organisms 06/07/22 18:27 Urine, Random Legionella Antigen - Final 06/07/22 18:27 Urine, Random Streptococcus pneumoniae Antigen (M - Final 06/06/22 08:57 Mucosa - Nasopharyngeal Respiratory Panel (PCR) - Final 06/06/22 06:40 Nasal Secretion SARS-CoV-2 & FLU Antigen (Rapid) - Final Physical Exam Narrative Alert awake oriented x 3 s1s2 no murmurs Diminished breath sounds anteriorly and posteriorly with faint expiratory wheezing and rhonchi noted abdomen soft, no organomegaly no edema Tunneled HD catheter dressing C/D/I accessed for HD Assessment & Plan Assessment/Plan (1) ESRD (end stage renal disease) on dialysis: PLAN: - HD Sunday. Sunday, Sunday at [facility]. For dialysis today over 3.5 hours on 2kbath and attempt ~2 L of fluid removal as patient/blood pressure tolerates. Recently patient has been cramping which has been limiting fluid removal with dialysis. Outpatient EDW 73.5 kg - COPD; breathing improved and off Bipap, on nasal cannula. IV ABX, duonebs, IV steroids. BC NGTD. - bps acceptable - hgb 8.1. Patient receives Mircera at kidney center, will monitor hgb trends. Last dose 200mcg about a week ago - increase activity up to chair for meals. - discussed with discharge team, waiting for pre-cert to e[facility]
--- NOTE | 2022-06-12 13:46 | CASEMGMT ---
MARIA GUADALUPE received a call from Adele at [facility]. Adele asked for an update on patient. MARIA GUADALUPE let Adele know patient is waiting on insurance to approve her to go to [place]. Adele asked that MARIA GUADALUPE notify her when patient is discharged to [place]. Plan: d/c to [place] pending insurance approval. Evy GONZALEZ
--- NOTE | 2022-06-12 16:12 | DIALYSIS ---
1730 Hemodialysis x 3.5 hours, Net UF 2000 ml, VSS, no adverse S&S. Blood returned to patient. catheter ports closed with heparin, RN report at bedside.
[2022-06-12] MEDS: Gabapentin 600 MG Tablet PO (17:37)
[2022-06-12] MEDS: Heparin 10,000 UNITS/10 ML Vial IV (17:38)
[2022-06-12] MEDS: 0.9% Saline Lock 10 ML Syringe IV (21:11)
[2022-06-12] MEDS: Mirtazapine 15 MG Tablet 45 MG PO (21:12)
[2022-06-12] MEDS: Montelukast 10 MG Tablet PO (21:12)
[2022-06-13] VITALS (11 sets, daily range): BP systolic 158–170; BP diastolic 67–99; PULSE 58–84; RESP 12–20; TEMP 36.4–37; O2SAT 96–100
[2022-06-13] MEDS: Ipratropium/Albuterol Sulfate 3 ML AMPUL.NEB INHALATION ×3 (04:02→10:40)
[2022-06-13] MEDS: hydrALAZINE 50 MG Tablet 100 MG PO (05:56)
--- NOTE | 2022-06-13 07:38 | CASEMGMT ---
Discharge [employer] Supervisor Alexsandra reached out. Pre-cert has been obtained. Patient can admit when medically ready. MARIA GUADALUPE [place] notified. Sally SPRAGUE Caster Helper
[2022-06-13] MEDS: oxyCODONE 5 MG Tablet 10 MG PO (08:44)
[2022-06-13] MEDS: DULoxetine Hcl 60 MG Capsule PO (09:29)
[2022-06-13] MEDS: Pantoprazole Sodium 40 MG Tablet PO (09:29)
[2022-06-13] MEDS: Carvedilol 25 MG Tablet PO (09:29)
[2022-06-13] MEDS: guaiFENesin 1,200 MG Tablet 1200 MG PO (09:29)
[2022-06-13] MEDS: amLODIPine 10 MG Tablet PO (09:29)
[2022-06-13] MEDS: 0.9% Saline Lock 10 ML Syringe IV (09:30)
[2022-06-13] MEDS: Polyethylene Glycol 3350 17 GM PACKET PO (09:30)
[2022-06-13] MEDS: APIXABAN 2.5 MG TABLET (WCH) PO (09:30)
--- NOTE | 2022-06-13 10:07 | TREXTCAR_ITS ---
Diet Diet Order/Speech Therapy: 06/06/22 22:15 Diet: Regular - General Dietary Modifications:: No Added Salt Potassium Restricted Type of Dietary Supplement:: Nepro Is pt able to select menu?: No Diet Comments: 8oz Nepro stawberry flavor Problem/Diagnosis (1) ESRD (end stage renal disease) on dialysis: Status: Acute Code(s): N18.6 - End stage renal disease; Z99.2 - Dependence on renal dialysis (2) Chronic pain: Status: Chronic Code(s): G89.29 - Other chronic pain Plan Chronic hypoxic respiratory failure with shortness of breath secondary to COPD exacerbation -Oxygen has been weaned to 4 L and when tested she tolerated 2 L at rest and 4 L with exertion having oxygen saturations at 93 to 94% with exertion. Patient has been refusing BiPAP at night. Currently on baseline oxygen. -Change IV Solu-Medrol to prednisone 40 mg daily. Will need long taper. Patient had fever T-max 102.5 on day of admission but had been afebrile. Patient infectious work-up was negative. -Aggressive pulmonary toilet with scheduled and as needed DuoNebs -I-S/Pep therapy -Scheduled Mucinex -Strep pneumo Legionella antigens are negative -COVID-19 and flu are negative -Respiratory viral panel was negative -Did have recent infection in mid May with human metapneumovirus for which she had a short hospitalization -Continue current antibiotics with azithromycin and Zosyn given fevers at presentation -Continue BiPAP as needed -Monitor on telemetry -Outpatient pulmonary follow-up after discharge\ -Suspect patient would benefit from nocturnal trilogy if she is able to qualify End-stage renal disease-HD dependent -Nephrology following -Continue midodrine with dialysis -HD MWF -Continue phosphate binder -Renally dose all medications Chronic diastolic heart failure -X-ray appears stable in appearance from previous -Continue home cardiac medications -Most recent echo from 04/20/2021 shows an EF of 55% with mild left atrial enlargement COPD exacerbation: Patient on prednisone 5 mg daily chronically. Rest as mentioned above GERD -Continue PPI Chronic constipation -Continue lactulose as needed and MiraLAX scheduled -Continue as needed docusate Neuropathy -Continue gabapentin -Dosing is adjusted for renal failure -Continue oxycodone as needed Hypertension -Continue amlodipine -Continue carvedilol -Continue hydralazine Paroxysmal atrial fibrillation -Currently in normal sinus rhythm -Continue home carvedilol -Continue home Eliquis 2.5 mg twice daily 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 twice daily CODE STATUS -Full code Awaiting pre-CERT. Discussed with the body builder apprentice. Allergies/Procedures Done in Hospital Allergies No Known Allergies Allergy (Verified 05/31/22 06:46) Type of Care/Length of Stay Estimated LOS: Convalescent Care Less Than 30 days Type of Care Needed: Skilled Rehab Potential: Good Prognosis: Good Additional Orders/Day of Discharge Day of Discharge: 06/13/22 Dietary and Speech Recommendations Dietitian Recommendations/Changes: Regular/no added salt/potassium-restricted diet. Continue 8oz matos Nepro TID with meals given poor appetite/PO intake. Renal-general diet as needed if PO intake/appetite improve. Discharge Plan Admission Admit Date/Time: 06/06/22 08:45 Primary Reason for Your Visit: Shortness of breath Attending Provider: Deandre Langford Primary Care Provider: Yen Valdez PHERESIS NURSE Consulting Providers: Soraida Sears ; Nataliia Quezada ; Cailin Nichols Discharge Orders/Prescriptions Prescriptions: New albuterol sulfate 90 mcg/actuation HFA aerosol inhaler 2 puff inhalation Q6H PRN (Reason: shortness of breath or wheezing) Qty: 8.5 2RF acetaminophen [Tylenol] 325 mg Tablet 650 mg PO Q6H PRN PRN (Reason: Pain 1-10 Or Fever >100.7) Qty: 0 0RF sennosides-docusate sodium [Stool Softener-Stimulant Laxat] 8.6-50 mg Tablet 2 tab PO BID PRN PRN (Reason: Constipation) Qty: 0 0RF Mucus Relief ER 1,200 mg Tablet Extended Release 12hr 1,200 mg PO BID Qty: 14 0RF prednisone 10 mg tablets,dose pack See Taper PO DAILY Qty: 30 0RF Taper: Prednisone Taper 40 mg WITH BREAKFAST for 3 Days and 0 Hour 30 mg WITH BREAKFAST for 3 Days and 0 Hour 20 mg WITH BREAKFAST for 3 Days and 0 Hour 10 mg WITH BREAKFAST for 3 Days and 0 Hour Continued hydralazine 100 MG tablet 100 mg PO TID amlodipine 10 mg Tablet 10 mg PO DAILY calcium acetate(phosphat bind) 667 mg Capsule 2,001 mg PO TIDCM mirtazapine 45 mg Tablet 45 mg PO QHS Eliquis 2.5 mg Tablet 2.5 mg PO BID dicyclomine 20 mg tablet 20 mg PO TID Label Comments: Take 1 tablet by mouth three times daily before meals. gabapentin 600 mg tablet 600 mg PO MOWEFR Label Comments: 1 TABLET BY MOUTH EVERY (3P-6P AFTER DIALYSIS) DX: gabapentin 300 mg capsule 300 mg PO SUTUTHSA Label Comments: 1 CAPSULE BY MOUTH (3P-6P) DX:E omeprazole 20 mg capsule,delayed release(DR/EC) 20 mg PO DAILY Label Comments: 1 CAPSULE BY MOUTH ONCECDAILY DX: / NURSE TO REORDER RenaPlex-D 800 mcg-12.5 mg -2,000 unit tablet 1 tab PO MOWEFR Label Comments: TAKE 1 TABLET BY MOUTH EVERY DAY (ON DIALYSIS DAYS, TAKE AFTER DIALYSIS TREATMENT) montelukast [Singulair] 10 mg Tablet 10 mg PO QHS lactulose 10 gram/15 mL Solution 30 ml PO QHS PRN (Reason: Constipation) oxycodone 10 mg Tablet 10 mg PO BID PRN (Reason: Breakthrough Pain) carvedilol 25 mg Tablet 25 mg PO BID Qty: 0 0RF midodrine 10 mg tablet 10 mg PO MOWEFR fluticasone propion-salmeterol [Advair Diskus] 500-50 mcg/dose Blister With Device 1 inh INHALATION BID Spiriva Respimat 2.5 mcg/actuation Mist 2 puff INHALATION DAILY duloxetine 60 mg capsule,delayed release(DR/EC) 60 mg PO DAILY polyethylene glycol 3350 [Miralax] 17 gram/dose powder 17 g PO DAILY ipratropium-albuterol 0.5 mg-3 mg(2.5 mg base)/3 mL Solution For Nebulization 3 ml inhalation Q4H.RT PRN (Reason: shortness of breath or wheezing) Qty: 180 1RF albuterol sulfate 2.5 mg /3 mL (0.083 %) Solution For Nebulization 2.5 mg inhalation Q2H PRN PRN (Reason: SOB/Wheezing) 30 Days Qty: 90 1RF oxycodone 10 mg Tablet 10 mg PO BID 3 Days Qty: 6 0RF Held prednisone 5 mg tablet 5 mg PO DAILY Hold Instructions: Restart once taper is completed Discontinued docusate sodium 100 mg Tablet 200 mg PO BID PRN PRN (Reason: constipation) Referrals / Follow Up: Vamsi Moya MD [Med Staff - Active Staff] - 06/29/22 7:45 am Yen Valdez PHERESIS NURSE, PHERESIS NURSE-C [Primary Care Provider] - Within 2 Weeks Disposition Disposition (needs filled in before D/C Order can be placed): Assisted Living (1) Chronic pain Qualifiers: Chronic pain type: other chronic pain Qualified Code(s): G89.29 - Other chronic pain
--- NOTE | 2022-06-13 10:16 | CASEMGMT ---
Patient is ready for discharge today. MARIA GUADALUPE notified RN, clerk secretary, patient, and Yeimy at [facility]. Evy Paredes [employer]
--- NOTE | 2022-06-13 10:24 | DS.PCM_ITS ---
Providers Date of Admission: 06/06/22 Date of Discharge: 06/13/22 Primary Care Physician: JOE Angela Consultations 06/06/22 08:51 Consult: Nephrology Routine Consulting Provider: Soraida Sears Reason for Consult: ESRD, on HD EMERGENT Consult: No MD Notified: Yes Date Notified: 06/06/22 Time Notified: 10:46 Method of Notification: Answering Service Reason For Visit: AECOPD Diagnosis Discharge Diagnosis (1) ESRD (end stage renal disease) on dialysis: Status: Acute Code(s): N18.6 - End stage renal disease; Z99.2 - Dependence on renal dialysis (2) Chronic pain: Status: Chronic Code(s): G89.29 - Other chronic pain Qualifiers: Chronic pain type: other chronic pain Qualified Code(s): G89.29 - Other chronic pain Medications at Discharge Home Medications hydralazine 100 mg tablet 100 mg PO TID BLOOD PRESSURE 03/31/20 amlodipine 10 mg tablet 10 mg PO DAILY blood pressure 11/30/20 calcium acetate(phosphat bind) 667 mg capsule 2,001 mg PO TIDCM health maintenance 11/30/20 apixaban 2.5 mg tablet (Eliquis) 2.5 mg PO BID anticoagulant 01/08/21 mirtazapine 45 mg tablet 45 mg PO QHS INSOMNIA 01/08/21 dicyclomine 20 mg tablet 20 mg PO TID 02/26/21 gabapentin 300 mg capsule 300 mg PO SUTUTHSA NERVE PAIN 10/05/21 gabapentin 600 mg tablet 600 mg PO MOWEFR NERVE PAIN 10/05/21 omeprazole 20 mg capsule,delayed release 20 mg PO DAILY GERD 10/05/21 vit B,C-folic ac 800 mcg-zinc 12.5 mg-selen-D3 2,000 unit-vit E tablet (RenaPlex-D) 1 tab PO MOWEFR DIALYSIS 10/05/21 lactulose 10 gram/15 mL oral solution 30 ml PO QHS PRN Constipation 10/25/21 montelukast 10 mg tablet (Singulair) 10 mg PO QHS ALLERGIES 10/25/21 carvedilol 25 mg tablet 25 mg PO BID #0 tabs 12/21/21 midodrine 10 mg tablet 10 mg PO MOWEFR 02/23/22 prednisone 5 mg tablet 5 mg PO DAILY STEROID 02/23/22 duloxetine 60 mg capsule,delayed release 60 mg PO DAILY DEPRESSION 05/19/22 fluticasone 500 mcg-salmeterol 50 mcg/dose blistr powdr for inhalation (Advair Diskus) 1 inh inhalation BID 05/19/22 polyethylene glycol 3350 17 gram/dose oral powder (Miralax) 17 g PO DAILY CONSTIPATION 05/19/22 tiotropium bromide 2.5 mcg/actuation mist for inhalation (Spiriva Respimat) 2 puff inhalation DAILY 05/19/22 albuterol sulfate 2.5 mg/3 mL (0.083 %) solution for nebulization 2.5 mg (3 mL) inhalation Q2H PRN PRN SOB/Wheezing 30 days #90 mL 05/20/22 ipratropium 0.5 mg-albuterol 3 mg (2.5 mg base)/3 mL nebulization soln 3 ml inhalation Q4H.RT PRN shortness of breath or wheezing #180 mL 05/20/22 albuterol sulfate 90 mcg/actuation aerosol inhaler 2 puff inhalation Q6H PRN shortness of breath or wheezing #8.5 grams 06/09/22 acetaminophen 325 mg tablet (Tylenol) 650 mg PO Q6H PRN PRN Pain 1-10 Or Fever >100.7 #0 tabs 06/13/22 guaifenesin 1,200 mg tablet, extended release 12 hr (Mucus Relief ER) 1,200 mg PO BID #14 tabs 06/13/22 oxycodone 10 mg tablet 10 mg PO BID PRN Breakthrough Pain 3 days #6 tabs 06/13/22 prednisone 10 mg tablets in a dose pack See Taper PO DAILY #30 tabs 06/13/22 sennosides 8.6 mg-docusate sodium 50 mg tablet (Stool Softener-Stimulant Laxative) 2 tab PO BID PRN PRN Constipation #0 tabs 06/13/22 Hospital Course Summary of Care Provided Hospital Course: 72-year-old female with history of end-stage renal disease on hemodialysis, DVT paroxysmal A. fib and other multiple comorbidities was admitted with shortness of breath progressive worsening cough and dyspnea consistent with COPD exacerbation. 1. Chronic hypoxic respiratory failure with shortness of breath secondary to COPD exacerbation -Oxygen has been weaned to 4 L and when tested she tolerated 2 L at rest and 4 L with exertion having oxygen saturations at 93 to 94% with exertion. Patient has been refusing BiPAP at night. Currently on baseline oxygen. -Change IV Solu-Medrol to prednisone 40 mg daily. Will need long taper. Patient had fever T-max 102.5 on day of admission but had been afebrile. Patient infectious work-up was negative. -Aggressive pulmonary toilet with scheduled and as needed DuoNebs -I-S/Pep therapy -Scheduled Mucinex -Strep pneumo Legionella antigens are negative -COVID-19 and flu are negative -Respiratory viral panel was negative. Patient had recent infection in mid May with human metapneumovirus for which she had a short hospitalization. Patient empirically was on IV antibiotics vancomycin and Zosyn in the beginning of admission and then discontinued after pneumonia was ruled out. -Continue BiPAP as needed -Monitor on telemetry -Outpatient pulmonary follow-up after discharge -Suspect patient would benefit from nocturnal trilogy if she is able to qualify End-stage renal disease-HD dependent -Nephrology following -Continue midodrine with dialysis -HD MWF -Continue phosphate binder -Renally dose all medications Chronic diastolic heart failure -X-ray appears stable in appearance from previous -Continue home cardiac medications -Most recent echo from 04/20/2021 shows an EF of 55% with mild left atrial enlar gement COPD exacerbation: Patient on prednisone 5 mg daily chronically. Rest as mentioned above GERD -Continue PPI Chronic constipation -Continue lactulose as needed and MiraLAX scheduled -Continue as needed docusate Neuropathy -Continue gabapentin -Dosing is adjusted for renal failure -Continue oxycodone as needed Hypertension -Continue amlodipine -Continue carvedilol -Continue hydralazine Paroxysmal atrial fibrillation -Currently in normal sinus rhythm -Continue home carvedilol -Continue home Eliquis 2.5 mg twice daily 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 twice daily CODE STATUS -Full code Discussed with the pig farm manager.Discharge medication reconciliation done. Discharge follow-up instructions completed. Discharge process discussed with the patient and all questions were answered to patient's satisfaction. Prescriptions given for oxycodone 10 mg p.o. twice daily. For severe breakthrough pain 7-10/10 intensity, tapering dose of prednisone. Total time spent, exact 35 minutes on discharge meds reconciliation, examination, coordination of care with nurses and ancillary staff, review of imaging and blood test and discussion with the patient on follow-up instructions. Physical Exam Narrative Seen and examined. Patient says she used BiPAP last night.She was dialyzed yesterday. On 2 L of oxygen through nasal cannula. General: Alert, Oriented x3, Cooperative HEENT: Atraumatic, PERRLA, EOMI, Normocephalic Oral: No Gingival or Mucosal Lesions/ Ulcerations Neck: Supple, No JVD, Negative Carotid Bruits Lungs: Air entry diminished in bilateral lungs. Bilateral wheezing/rhonchi. Cardiovascular: Regular rate, Regular Rhythm, Normal S1, Normal S2, No murmurs Abdomen: Bowel Sounds Present, Soft, Non Tender, Non-Distended : No renal angle tenderness. No suprapubic tenderness. Extremities: No edema, Capillary Refill Less than 3 Seconds Skin: No rashes, No breakdown Musculoskeletal: No Tenderness to Palpation of Joints or Extremities. Muscle strength 4/5 at major joints of LEs. Neurological: Cranial nerves II-XII grossly intact, DTR 2+/4. No acute FND. Psych/Mental Status: Flat affect. Weight / BMI Weight Weight: 163 lb 2.273 oz Body Mass Index (BMI) 23.3 ABG / Lab / Microbiology Data Result Diagrams: 06/12/22 06:05 06/12/22 06:05 Microbiology: Microbiology 06/13/22 03:30 Sputum, Expectorated/Coughed Gram Stain - Final 06/06/22 09:10 Blood Culture (Wb) - Left Forearm Blood Culture - Final No growth in 5 days. 06/06/22 08:30 Blood Culture (Wb) - Arm Left Blood Culture - Final No growth in 5 days. 06/07/22 18:27 Urine, Random Urine Culture - Final Mixed Gram Positive Organisms 06/07/22 18:27 Urine, Random Legionella Antigen - Final 06/07/22 18:27 Urine, Random Streptococcus pneumoniae Antigen (M - Final 06/06/22 08:57 Mucosa - Nasopharyngeal Respiratory Panel (PCR) - Final 06/06/22 06:40 Nasal Secretion SARS-CoV-2 & FLU Antigen (Rapid) - Final D/C Instructions Discharge Diet: 8 Cup Fluid Restriction, 4000 mg Sodium Diet and Renal Diet Meaningful Use Info Meaningful Use Diagnoses (Choose all that apply): None applicable Discharge Plan Admission Admit Date/Time: 06/06/22 08:45 Primary Reason for Your Visit: Shortness of breath Attending Provider: Deandre Langford Primary Care Provider: Yen Valdez [employer] DIRECTOR Consulting Providers: Soraida Sears ; Nataliia Quezada ; Cailin Nichols Discharge Orders/Prescriptions Prescriptions: New albuterol sulfate 90 mcg/actuation HFA aerosol inhaler 2 puff inhalation Q6H PRN (Reason: shortness of breath or wheezing) Qty: 8.5 2RF acetaminophen [Tylenol] 325 mg Tablet 650 mg PO Q6H PRN PRN (Reason: Pain 1-10 Or Fever >100.7) Qty: 0 0RF sennosides-docusate sodium [Stool Softener-Stimulant Laxat] 8.6-50 mg Tablet 2 tab PO BID PRN PRN (Reason: Constipation) Qty: 0 0RF Mucus Relief ER 1,200 mg Tablet Extended Release 12hr 1,200 mg PO BID Qty: 14 0RF prednisone 10 mg tablets,dose pack See Taper PO DAILY Qty: 30 0RF Taper: Prednisone Taper 40 mg WITH BREAKFAST for 3 Days and 0 Hour 30 mg WITH BREAKFAST for 3 Days and 0 Hour 20 mg WITH BREAKFAST for 3 Days and 0 Hour 10 mg WITH BREAKFAST for 3 Days and 0 Hour Continued hydralazine 100 MG tablet 100 mg PO TID amlodipine 10 mg Tablet 10 mg PO DAILY calcium acetate(phosphat bind) 667 mg Capsule 2,001 mg PO TIDCM mirtazapine 45 mg Tablet 45 mg PO QHS Eliquis 2.5 mg Tablet 2.5 mg PO BID dicyclomine 20 mg tablet 20 mg PO TID Label Comments: Take 1 tablet by mouth three times daily before meals. gabapentin 600 mg tablet 600 mg PO MOWEFR Label Comments: 1 TABLET BY MOUTH EVERY (3P-6P AFTER DIALYSIS) DX: gabapentin 300 mg capsule 300 mg PO SUTUTHSA Label Comments: 1 CAPSULE BY MOUTH (3P-6P) DX:E omeprazole 20 mg capsule,delayed release(DR/EC) 20 mg PO DAILY Label Comments: 1 CAPSULE BY MOUTH ONCECDAILY DX: / NURSE TO REORDER RenaPlex-D 800 mcg-12.5 mg -2,000 unit tablet 1 tab PO MOWEFR Label Comments: TAKE 1 TABLET BY MOUTH EVERY DAY (ON DIALYSIS DAYS, TAKE AFTER DIALYSIS TREATMENT) montelukast [Singulair] 10 mg Tablet 10 mg PO QHS lactulose 10 gram/15 mL Solution 30 ml PO QHS PRN (Reason: Constipation) carvedilol 25 mg Tablet 25 mg PO BID Qty: 0 0RF midodrine 10 mg tablet 10 mg PO MOWEFR fluticasone propion-salmeterol [Advair Diskus] 500-50 mcg/dose Blister With Device 1 inh INHALATION BID Spiriva Respimat 2.5 mcg/actuation Mist 2 puff INHALATION DAILY duloxetine 60 mg capsule,delayed release(DR/EC) 60 mg PO DAILY polyethylene glycol 3350 [Miralax] 17 gram/dose powder 17 g PO DAILY ipratropium-albuterol 0.5 mg-3 mg(2.5 mg base)/3 mL Solution For Nebulization 3 ml inhalation Q4H.RT PRN (Reason: shortness of breath or wheezing) Qty: 180 1RF albuterol sulfate 2.5 mg /3 mL (0.083 %) Solution For Nebulization 2.5 mg inhalation Q2H PRN PRN (Reason: SOB/Wheezing) 30 Days Qty: 90 1RF oxycodone 10 mg Tablet 10 mg PO BID PRN (Reason: Breakthrough Pain) 3 Days Qty: 6 0RF Held prednisone 5 mg tablet 5 mg PO DAILY Hold Instructions: Restart once taper is completed Discontinued docusate sodium 100 mg Tablet 200 mg PO BID PRN PRN (Reason: constipation) oxycodone 10 mg Tablet 10 mg PO BID Referrals / Follow Up: Vamsi Moya MD [Med Staff - Active Staff] - 06/29/22 7:45 am Yen Valdez [employer] DIRECTOR, CHILDREN[employer]S [employer]IST[employer] DIRECTOR-C [Primary Care Provider] - Within 2 Weeks Disposition Disposition (needs filled in before D/C Order can be placed): Assisted Living Charges/Coding Visit Charges Inpatient E&M: 61354 Disch Hosp
--- NOTE | 2022-06-13 10:38 | PHA.DC.MR ---
Pharmacy Service has performed discharge medication reconciliation for this patient. The patient's discharge medication list was reviewed for discrepancies and discrepancies were resolved. Home Medications hydralazine 100 mg tablet 100 mg PO TID BLOOD PRESSURE 03/31/20 amlodipine 10 mg tablet 10 mg PO DAILY blood pressure 11/30/20 calcium acetate(phosphat bind) 667 mg capsule 2,001 mg PO TIDCM health maintenance 11/30/20 apixaban 2.5 mg tablet (Eliquis) 2.5 mg PO BID anticoagulant 01/08/21 mirtazapine 45 mg tablet 45 mg PO QHS INSOMNIA 01/08/21 dicyclomine 20 mg tablet 20 mg PO TID 02/26/21 gabapentin 300 mg capsule 300 mg PO SUTUTHSA NERVE PAIN 10/05/21 gabapentin 600 mg tablet 600 mg PO MOWEFR NERVE PAIN 10/05/21 omeprazole 20 mg capsule,delayed release 20 mg PO DAILY GERD 10/05/21 vit B,C-folic ac 800 mcg-zinc 12.5 mg-selen-D3 2,000 unit-vit E tablet (RenaPlex-D) 1 tab PO MOWEFR DIALYSIS 10/05/21 lactulose 10 gram/15 mL oral solution 30 ml PO QHS PRN Constipation 10/25/21 montelukast 10 mg tablet (Singulair) 10 mg PO QHS ALLERGIES 10/25/21 carvedilol 25 mg tablet 25 mg PO BID #0 tabs 12/21/21 midodrine 10 mg tablet 10 mg PO MOWEFR 02/23/22 prednisone 5 mg tablet 5 mg PO DAILY STEROID 02/23/22 duloxetine 60 mg capsule,delayed release 60 mg PO DAILY DEPRESSION 05/19/22 fluticasone 500 mcg-salmeterol 50 mcg/dose blistr powdr for inhalation (Advair Diskus) 1 inh inhalation BID 05/19/22 polyethylene glycol 3350 17 gram/dose oral powder (Miralax) 17 g PO DAILY CONSTIPATION 05/19/22 tiotropium bromide 2.5 mcg/actuation mist for inhalation (Spiriva Respimat) 2 puff inhalation DAILY 05/19/22 albuterol sulfate 2.5 mg/3 mL (0.083 %) solution for nebulization 2.5 mg (3 mL) inhalation Q2H PRN PRN SOB/Wheezing 30 days #90 mL 05/20/22 ipratropium 0.5 mg-albuterol 3 mg (2.5 mg base)/3 mL nebulization soln 3 ml inhalation Q4H.RT PRN shortness of breath or wheezing #180 mL 05/20/22 albuterol sulfate 90 mcg/actuation aerosol inhaler 2 puff inhalation Q6H PRN shortness of breath or wheezing #8.5 grams 06/09/22 acetaminophen 325 mg tablet (Tylenol) 650 mg PO Q6H PRN PRN Pain 1-10 Or Fever >100.7 #0 tabs 06/13/22 guaifenesin 1,200 mg tablet, extended release 12 hr (Mucus Relief ER) 1,200 mg PO BID #14 tabs 06/13/22 oxycodone 10 mg tablet 10 mg PO BID PRN Breakthrough Pain 3 days #6 tabs 06/13/22 prednisone 10 mg tablets in a dose pack See Taper PO DAILY #30 tabs 06/13/22 sennosides 8.6 mg-docusate sodium 50 mg tablet (Stool Softener-Stimulant Laxative) 2 tab PO BID PRN PRN Constipation #0 tabs 06/13/22
--- NOTE | 2022-06-13 11:13 | PN.RENAL_ITS ---
Subjective Subjective Following for ESRD. The patient feels better overall. She is less short of breath. There is no nausea or vomiting. There is no chest pain. Objective Data Objective Data Vital Signs: Vital Signs Temp Pulse Resp BP Pulse Ox O2 Del Method O2 Flow Rate 98.4 F 77 16 168/67 H 100 Nasal Cannula 2 06/13/22 11:03 06/13/22 11:03 06/13/22 11:03 06/13/22 11:03 06/13/22 11:03 06/13/22 11:03 06/13/22 11:03 FiO2 30 06/13/22 04:05 Oxygen Flow Rate (L/min) [ 4 AMBULATING with Oxygen #1] Oxygen Flow Rate (L/min) [At 2 REST with Oxygen] Oxygen Flow Rate (L/min) 2 Oxygen Delivery Method Nasal Cannula Weight: 74 kg Body Mass Index (BMI) 23.3 Intake & Output: Intake and Output for Last 24 Hours 06/11/22 06/12/22 06/13/22 23:59 23:59 23:59 Intake Total 500 / 500 480 / 480 Output Total 50 / 50 350 / 350 Balance 450 / 450 480 / 280 -350 / -350 Lab / Micro Data Result Diagrams: 06/12/22 06:05 06/12/22 06:05 Micro: Microbiology 06/13/22 03:30 Sputum, Expectorated/Coughed Gram Stain - Final 06/06/22 09:10 Blood Culture (Wb) - Left Forearm Blood Culture - Final No growth in 5 days. 06/06/22 08:30 Blood Culture (Wb) - Arm Left Blood Culture - Final No growth in 5 days. 06/07/22 18:27 Urine, Random Urine Culture - Final Mixed Gram Positive Organisms 06/07/22 18:27 Urine, Random Legionella Antigen - Final 06/07/22 18:27 Urine, Random Streptococcus pneumoniae Antigen (M - Final 06/06/22 08:57 Mucosa - Nasopharyngeal Respiratory Panel (PCR) - Final 06/06/22 06:40 Nasal Secretion SARS-CoV-2 & FLU Antigen (Rapid) - Final Physical Exam Narrative Alert awake oriented x 3 s1s2 no murmurs Diminished breath sounds anteriorly and posteriorly with faint expiratory wheezing and rhonchi noted abdomen soft, no organomegaly no edema Tunneled HD catheter dressing C/D/I accessed for HD Assessment & Plan Assessment/Plan (1) ESRD (end stage renal disease) on dialysis: PLAN: - HD Sunday. Sunday, Sunday at [facility]. -Tolerated dialysis well yesterday. No need for dialysis today. - COPD; breathing improved and off Bipap, on nasal cannula. IV ABX, duonebs, IV steroids. BC NGTD. - bps acceptable - hgb 8.1 on 06/20/2022. Patient receives Mircera at kidney center, will monitor hgb trends. Last dose 200mcg about a week ago - increase activity up to chair for meals. -To be discharged today per my discussion with Dr. Langford. She can resume maria del rosario lysis at [facility] on 06/13/2022.
--- NOTE | 2022-06-13 11:29 | CASEMGMT ---
MARIA GUADALUPE sent d/c orders to [place] via [facility]. Awaiting COVID test. MARIA GUADALUPE called [facility] and requested transport for anytime after 1p. MARIA GUADALUPE spoke with Laly at [facility]. MARIA GUADALUPE let Laly know patient will need 2L of O2 and a wheelchair provided as well as [facility] is [facility]'s preferred provider. Await COVID test and transport to call with pharmacy picking technician. Plan: d/c to [place] under skilled level of care on a 7000. Evy Paredes ETL DATA ARCHITECT CARLOS
--- NOTE | 2022-06-13 11:50 | CASEMGMT ---
MARIA GUADALUPE called [facility] back as the RN received a call from a transport company stating they do not have a wheelchair. MARIA GUADALUPE spoke with Az regarding this concern. Az said that this trip was originally put under the wrong insurance anyway. Az canceled prior trip. Az made sure he put in that patient needs a wheelchair and 2L of O2 provided as well as [facility] the preferred provider. The new confirmation number is: [id number] Evy GONZALEZ
--- NOTE | 2022-06-13 12:12 | CASEMGMT ---
Discharge Magnetic Resonance Imaging Director Ruba from [facility] reached out. [facility] will be here with a wheel chair between 2:00pm-3:00pm. Nursing staff made aware. Sally SPRAGUE Personal Computer Network Engineer
--- NOTE | 2022-06-13 12:23 | CASEMGMT ---
Addendum entered by Evy Paredes 06/13/22 13:44: COVID test sent to [facility]. Evy Paredes CORPORATE EVENT PLANNER BLOOD TESTER Original Note: MARIA GUADALUPE called Alexsandra at [facility] and let her know SW [facility] MARIA GUADALUPE let Alexsandra know patient will get picked up between 2 and 3. SW will send her COVID test as soon as it is done. Plan: d/c to [facility] under skilled level of care on a 7000. [facility] transport patient via wheelchair which was arranged via [facility]. Evy Paredes CORPORATE EVENT PLANNERWill GONZALEZ
--- NOTE | 2022-06-13 14:09 | CHAPLAIN ---
Type of Pastoral Visit ___ Initial Visit _x__ Follow-up Visit ___ On-call Visit ___ General Patient Visit ___ Spiritual Assessment ___ Family Conference ___ Bereavement ___ Rapid Response ___ Code Blue ___ Other (describe below) Pastoral Care Referral From _x__ Patient ___ Family ___ Nurse ___ Physician ___ Lab Systems Analyst ___ Inspector Process ___ Other (describe below) Sacrament/Intervention _x__ Active listening ___ Anointing ___ Confucianist ___ Bereavement ___ Communion ___ Flaca exploration ___ ___ Life review _x__ Prayer ___ Reconciliation ___ Sacrament of Sick _x__ Supportive presence ___ Wedding ___ Other (describe below) Pastoral Comments patient is being moved to [facility] and transferring soon; pt asked for prayer and specifically for her family who experienced a of a niece this week;
== END 2022-06-13 14:10 | disposition home or self-care (01) | DRG 190 ==
LOC: ED 09:13 → PCU 09:24
PROVIDERS: Internal Medicine; Nurse Practitioner Adult Health; Admitting Provider Internal Medicine; Emergency Provider Emergency Medicine; PCP Nurse Practitioner Adult Health; Visit Provider Internal Medicine
DX: J44.1 Chronic obstructive pulmonary disease with (acute) exacerbation (principal); N18.6 End stage renal disease; I13.2 Hypertensive heart and chronic kidney disease with heart failure and with stage 5 chronic kidney disease, or end stage renal disease; J96.11 Chronic respiratory failure with hypoxia; I50.32 Chronic diastolic (congestive) heart failure; K72.90 Hepatic failure, unspecified without coma; D63.1 Anemia in chronic kidney disease; E11.22 Type 2 diabetes mellitus with diabetic chronic kidney disease; Z99.2 Dependence on renal dialysis; I48.0 Paroxysmal atrial fibrillation; D64.9 Anemia, unspecified; E78.5 Hyperlipidemia, unspecified; E78.00 Pure hypercholesterolemia, unspecified; K21.9 Gastro-esophageal reflux disease without esophagitis; F41.9 Anxiety disorder, unspecified; K59.09 Other constipation; R50.9 Fever, unspecified; G89.29 Other chronic pain; Z79.01 Long term (current) use of anticoagulants; F32.A Depression, unspecified; Z86.718 Personal history of other venous thrombosis and embolism
CPT/HCPCS: 36415; 36600; 71045; 80048; 80053; 81001; 82803; 83605; 83735; 84100; 84484; 85025; 85027; 87040; 87070; 87086; 87088; 87205; 87426; 87428; 87449; 87633; 87635; 87641; 90937; 93005; 94002; 94003; 94640; 94762; 97110; 97162; 97166; 97530; 99285; J7040; J7050; A4216; G0257; U0003; U0005

== ENCOUNTER 2022-06-17 05:49 | Inpatient (IN) | payer MEDICARE, MEDICAID, SELFPAY ==
[2022-06-17] VITALS (22 sets, daily range): BP systolic 94–190; BP diastolic 59–116; PULSE 67–112; RESP 12–27; TEMP 36.4–38.6; O2SAT 90–100; BMI 25.1; BMI 24.0
--- NOTE | 2022-06-17 06:43 | EKG12_ITS ---
Test Reason : SOB Blood Pressure : / mmHG Vent. Rate : 093 BPM Atrial Rate : 090 BPM P-R Int : 000 ms QRS Dur : 076 ms QT Int : 334 ms P-R-T Axes : 000 021 062 degrees QTc Int : 415 ms Sinus rhythm with PSVC's Nonspecific ST and T wave abnormality Abnormal ECG Confirmed by BRANDON LEMON, MACIE ([id number]), publications editor BIRDIE TORRES ([id number]) on 06/19/2022 1:07:42 PM Referred By: HANS Confirmed By:MACIE TAYLOR MD
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
[2022-06-17] MEDS: Acetaminophen 500 MG Tablet PO (07:09)
[2022-06-17] MEDS: MethylPREDNISolone 125 MG/2 ML Vial IV (07:09)
[2022-06-17] MEDS: Albuterol 2.5 MG/3 ML VIAL.NEB. INHALATION (07:19)
[2022-06-17] MEDS: Ipratropium/Albuterol Sulfate 3 ML AMPUL.NEB INHALATION ×2 (07:19→13:32)
[2022-06-17 07:22] LABS: Absolute Lymphocyte Count 0.84 X10^3/uL (0.83-4.51); Absolute Neutrophil Count 10.8 X10^3/uL (2.0-7.7); Basophil# 0.02 X10^3/uL; Basophil% 0.2 % (0-1); Eosinophil# 0.03 X10^3/uL; Eosinophils% 0.2 % (0-5); Hematocrit 29.2 % (37-47); Hemoglobin 8.8 g/dL (12.0-15.0); Lymphocyte # 0.84 X10^3/ul (0.83-4.51); Lymphocyte % 6.6 % (19-41); Mean Corp Hgb Conc 30.1 g/dL (32-36); Mean Corpuscular Hgb 30.3 pg (27.0-32.0); Mean Corpuscular Volume 100.7 fL (81-99); Mean Platelet Vol. 9.6 fl (6.2-12.0); Monocyte# 1.02 X10^3/uL; NRBC Flagged by Analyzer 0.3 % (0-5); Neutrophil # 10.76 X10^3/uL (2.7-7.7); Neutrophil % 84.5 % (47-70); POSITIVE MORPHOLOGY YES; Platelet Count 176 K/mm3 (150-450); RBC Distribution Width CV 18.3 % (11.6-14.6); White Blood Count 12.7 K/mm3 (4.4-11.0)
[2022-06-17 07:35] LABS: Anion Gap 7 (5-15); BUN 39 mg/dL (7-18); BUN/Creat Ratio 9.4 RATIO (10-20); Calcium,Total 8.3 mg/dL (8.5-10.1); Chloride 100 mmol/L (98-107); Creatinine, Serum 4.14 mg/dL (0.55-1.02); EST Glomerular Filtration Rate 11 mL/min (>60); Est Glom Filt Rate - Afr Amer 14 mL/min (>60); Estimated Creatinine Clearance 13.21 ml/min; Glucose 87 mg/dL (74-106); Potassium 4.2 mmol/L (3.5-5.1); Sodium Level 139 mmol/L (136-145)
--- NOTE | 2022-06-17 07:40 | RAD_ITS ---
EXAM: XR CHEST, 1 VIEW CLINICAL INDICATION: cough TECHNIQUE: Frontal view of the chest. This report was created using [employer] report generation technology. COMPARISON: XR Chest dated 06/06/2022 FINDINGS: LUNGS AND PLEURAL SPACES: Persistent small right pleural effusion. New airspace opacification within the left upper and right lower lobes of the on suggestive of pneumonia. No pneumothorax. HEART: Stable top normal heart size. MEDIASTINUM: No mediastinal or hilar mass. BONES/JOINTS: No acute abnormality. SOFT TISSUES: Normal. TUBES, LINES AND DEVICES: Right-sided dialysis catheter remains in place. RAD/Chest 1 View (Portable) IMPRESSION: New airspace opacification left upper and right lower lobes consistent with pneumonia. Electronically Signed: Benito Gann MD at 8:34 EST ,
[2022-06-17 07:41] LABS: Lactic Acid 1.3 mmol/L (0.4-1.9)
[2022-06-17 07:48] LABS: Differential Indicated SCAN CRITERIA MET; Procalcitonin 0.49 ng/mL (0.00-0.09)
[2022-06-17 08:09] LABS: Differential Comment SCANNED
[2022-06-17 08:10] LABS: Anisocytosis 2+; Macrocytosis 1+; Microcytosis 1+
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
[2022-06-17] MEDS: Morphine 4 MG/ML Syringe IV (09:21)
[2022-06-17 11:11] LABS: Allen Test Positive; Base Excess 6 mmol/L (-2 to +2); Bicarbonate 29.8 mmol/L (22-26); Blood Gas Specimen Type ART; Comment 14/8; FI02 25; Mode BiLevel; O2 Delivery Device BiPAP; PEEP 8; PO2 61 mmHG (75-100); RR 12; SITE L Radial; SO2 92 % (95-99); Total Carbon Dioxide 31 mmol/L; pCO2 44.3 mmHg (35-45); pH 7.44 (7.35-7.45)
[2022-06-17] MEDS: guaiFENesin 1,200 MG Tablet 1200 MG PO ×2 (11:27→21:41)
[2022-06-17] MEDS: Calcium Acetate 667 MG Capsule 2001 MG PO ×2 (11:27→17:41)
[2022-06-17] MEDS: Dicyclomine 10 MG Capsule 20 MG PO ×2 (11:27→16:11)
[2022-06-17] MEDS: Pantoprazole Sodium 20 MG Tablet PO (11:27)
[2022-06-17] MEDS: APIXABAN 2.5 MG TABLET (WCH) PO ×2 (11:28→21:41)
[2022-06-17] MEDS: Carvedilol 25 MG Tablet PO ×2 (11:28→21:40)
[2022-06-17] MEDS: amLODIPine 10 MG Tablet PO (11:28)
[2022-06-17] MEDS: Azithromycin 250 MG Tablet 500 MG PO (11:28)
[2022-06-17] MEDS: DULoxetine Hcl 60 MG Capsule PO (11:29)
[2022-06-17] MEDS: predniSONE 5 MG Tablet 10 MG PO (11:29)
[2022-06-17] MEDS: Cefepime 1 GM in 0.9% NS 50 ML Minibag Q12 IV (11:41)
[2022-06-17] MEDS: Vancomycin IV 1,000 MG/200 ML BAG 200 MG IV (13:07)
[2022-06-17] MEDS: Acetaminophen 500 MG Tablet 1000 MG PO ×2 (13:09→21:37)
[2022-06-17 13:14] LABS: M R Staph aureus DNA By PCR Negative (Negative); Probe Check PASS; Specimen Processing Control PASS
[2022-06-17] MEDS: Gabapentin 300 MG Capsule PO (16:11)
--- NOTE | 2022-06-17 16:27 | PHA.PHARE_ITS ---
Consult Pharmacy has been consulted to manage selected antiobiotic: Vancomycin Type of Consult: New start Suspected Infection: Pneumonia Labs: Sodium 139 mmol/L (136-145) 06/17/22 07:05 Potassium 4.2 mmol/L (3.5-5.1) 06/17/22 07:05 Chloride 100 mmol/L (98-107) 06/17/22 07:05 Carbon Dioxide 32.0 mmol/L (21.0-32.0) 06/17/22 07:05 Anion Gap 7 (5-15) 06/17/22 07:05 BUN 39 mg/dL (7-18) H 06/17/22 07:05 Creatinine 4.14 mg/dL (0.55-1.02) H 06/17/22 07:05 Est GFR (MDRD) Af Amer 14 mL/min (>60) L 06/17/22 07:05 Est GFR (MDRD) Non-Af 11 mL/min (>60) L 06/17/22 07:05 BUN/Creatinine Ratio 9.4 RATIO (10-20) L 06/17/22 07:05 Glucose 87 mg/dL (74-106) 06/17/22 07:05 Microbiology: Microbiology 06/17/22 06:30 Sputum, Expectorated/Coughed Gram Stain - Final 06/17/22 06:58 Nasal Secretion SARS-CoV-2 & FLU Antigen (Rapid) - Final Weight used for dosin kg Estimated Creatinine Clearance: ON HD Goal Trough: 15-20 mcg/mL Pharmacy Plan for Drug Dosing: Give initial dose of 1000mg IV x1 today. Given that the patient had received vanc approximately 10 days ago here, will not schedule the 2nd dose as usual after the next dialysis but will order a random vanc level to be drawn pre- dialysis before the next session on Sunday as the patient gets HD Mo//Fr. Will use that level to determine dosing for that day. Pharmacy Service will continue to monitor and adjust dosing as required. Follow-Up Labs: Trough Vancomycin - random Labs to be done on [date and time ordered]: 06/19/22 0600 pre-HD random level
[2022-06-17] MEDS: hydrALAZINE 50 MG Tablet 100 MG PO (21:36)
[2022-06-17] MEDS: Oseltamivir Phosphate 30 MG Capsule PO (21:42)
[2022-06-17] MEDS: Mirtazapine 15 MG Tablet 45 MG PO (21:43)
[2022-06-17] MEDS: Montelukast 10 MG Tablet PO (21:44)
[2022-06-17] MEDS: guaiFENesin 10 ML UDC (200MG/10ML) 20 ML PO (21:53)
[2022-06-18] VITALS (18 sets, daily range): BP systolic 116–127; BP diastolic 66–84; PULSE 72–101; RESP 16–22; TEMP 36.4–37; O2SAT 97–100
[2022-06-18 01:00] LABS: Bedside Glucose 231 mg/dL (74-106)
--- NOTE | 2022-06-18 04:02 | PCM.PN.BLA ---
Progress Note Nurse reports gram-positive cocci in chains. Patient on cefepime and vancomycin.
[2022-06-18] MEDS: Dicyclomine 10 MG Capsule 20 MG PO ×3 (06:02→16:54)
[2022-06-18] MEDS: Acetaminophen 500 MG Tablet 1000 MG PO ×3 (06:03→20:55)
[2022-06-18] MEDS: hydrALAZINE 50 MG Tablet 100 MG PO ×3 (06:03→20:58)
[2022-06-18 06:14] LABS: Basophil# 0.01 X10^3/uL; Basophil% 0.1 % (0-1); Hematocrit 25.7 % (37-47); Hemoglobin 7.8 g/dL (12.0-15.0); Lymphocyte % 3.2 % (19-41); Mean Corp Hgb Conc 30.4 g/dL (32-36); Mean Platelet Vol. 10.1 fl (6.2-12.0); Monocyte% 5.8 % (0-10); NRBC Flagged by Analyzer 0.2 % (0-5); Neutrophil # 13.95 X10^3/uL (2.7-7.7); Neutrophil % 90.2 % (47-70); POSITIVE DIFFERENTIAL YES; POSITIVE MORPHOLOGY YES; Platelet Count 168 K/mm3 (150-450); RBC Distribution Width CV 18.5 % (11.6-14.6); Red Blood Count 2.52 M/mm3 (4.2-5.4); White Blood Count 15.5 K/mm3 (4.4-11.0)
[2022-06-18 06:35] LABS: Differential Indicated SCAN CRITERIA MET
[2022-06-18 06:46] LABS: Anion Gap 9 (5-15); BUN 65 mg/dL (7-18); BUN/Creat Ratio 11.5 RATIO (10-20); Calcium,Total 8.7 mg/dL (8.5-10.1); Chloride 99 mmol/L (98-107); Creatinine, Serum 5.65 mg/dL (0.55-1.02); EST Glomerular Filtration Rate 8 mL/min (>60); Est Glom Filt Rate - Afr Amer 10 mL/min (>60); Estimated Creatinine Clearance 9.68 ml/min; Glucose 189 mg/dL (74-106); Magnesium 2.7 mg/dL (1.6-2.6); Phosphorus 5.4 mg/dL (2.5-4.9); Potassium 4.6 mmol/L (3.5-5.1); Sodium Level 137 mmol/L (136-145)
[2022-06-18] MEDS: Ipratropium/Albuterol Sulfate 3 ML AMPUL.NEB INHALATION ×3 (07:16→20:11)
[2022-06-18] MEDS: Calcium Acetate 667 MG Capsule 2001 MG PO ×3 (07:53→16:54)
[2022-06-18] MEDS: DULoxetine Hcl 60 MG Capsule PO (07:53)
[2022-06-18] MEDS: predniSONE 5 MG Tablet 10 MG PO (07:55)
[2022-06-18] MEDS: Carvedilol 25 MG Tablet PO ×2 (07:55→21:01)
[2022-06-18] MEDS: APIXABAN 2.5 MG TABLET (WCH) PO ×2 (07:55→21:02)
[2022-06-18] MEDS: guaiFENesin 1,200 MG Tablet 1200 MG PO ×2 (07:55→21:01)
[2022-06-18] MEDS: amLODIPine 10 MG Tablet PO (07:56)
[2022-06-18] MEDS: Azithromycin 250 MG Tablet 500 MG PO (07:57)
[2022-06-18] MEDS: Pantoprazole Sodium 20 MG Tablet PO (07:59)
[2022-06-18] MEDS: oxyCODONE 5 MG Tablet PO (08:16)
--- NOTE | 2022-06-18 08:42 | PN.HOSP_ITS ---
Subjective Subjective Patient was admitted with progressive shortness of breath and assessment of pneumonia admitted. Blood cultures came back positive for strep no strep pneumonia. Her viral respiratory panel was positive for influenza A. Tamiflu added to patient's treatment dose adjusted for kidney function Objective Data Objective Data Vital Signs: Vital Signs Temp Pulse Resp BP Pulse Ox O2 Del Method O2 Flow Rate 97.7 F L 99 18 126/73 H 100 Nasal Cannula 2 06/18/22 07:50 06/18/22 07:50 06/18/22 07:50 06/18/22 07:50 06/18/22 07:50 06/18/22 08:08 06/18/22 08:08 FiO2 25 06/18/22 04:00 Oxygen Flow Rate (L/min) 2 Oxygen Delivery Method Nasal Cannula Weight: 74 kg Body Mass Index (BMI) 24.0 Intake & Output: Intake and Output for Last 24 Hours 06/16/22 06/17/22 06/18/22 23:59 23:59 23:59 Intake Total 690 / 690 Output Total Balance 690 / 690 -20 / -20 Lab / Micro Data Result Diagrams: 06/18/22 05:30 06/18/22 05:30 Labs: Laboratory Results - last 24 hr 06/17/22 11:30: MRSA (PCR) Negative 06/17/22 21:27: POC Glucose 231 H 06/18/22 05:30: WBC 15.5 H, RBC 2.52 L, Hgb 7.8 L, Hct 25.7 L, MCV 102.0 H, MCH 31.0, MCHC 30.4 L, RDW Std Deviation 69.0 H, RDW Coeff of Destiny 18.5 H, Plt Count 168, MPV 10.1, Immature Gran % (Auto) 0.700, Neut % (Auto) 90.2 H, Lymph % (Auto) 3.2 L, [place] % (Auto) 5.8, Eos % (Auto) 0.0, Baso % (Auto) 0.1, Absolute Neuts (auto) 14.0 H, Absolute Lymphs (auto) 0.50 L, Nucleated RBC % 0.2 06/18/22 05:30: Sodium 137, Potassium 4.6, Chloride 99, Carbon Dioxide 29.0, An ion Gap 9, BUN 65 H, Creatinine 5.65 H, Estim Creat Clear Calc 9.68, Est GFR (MDRD) Af Amer 10 L, Est GFR (MDRD) Non-Af 8 L, BUN/Creatinine Ratio 11.5, Glucose 189 H, Calcium 8.7, Phosphorus 5.4 H, Magnesium 2.7 H Micro: Microbiology 06/17/22 10:35 Blood Culture (Wb) - Venous Bacteria Detection (PCR) - Preliminary Strep not Strep pneumo 06/17/22 10:35 Blood Culture (Wb) - Venous Blood Culture - Preliminary 06/17/22 11:07 Mucosa - Nose Respiratory Panel (PCR) - Preliminary Influenza A (Subtype H1) 06/17/22 06:30 Sputum, Expectorated/Coughed Gram Stain - Final 06/17/22 06:58 Nasal Secretion SARS-CoV-2 & FLU Antigen (Rapid) - Final ABG Data ABG results: ABG 06/17/22 11:03 Specimen Type ART Sample Site L Radial pH 7.44 Bicarbonate Actual 29.8 H Total CO2 31 Base Excess 6 H O2 Saturation 92 L O2 % 25 ABG pCO2 44.3 ABG pO2 61 L Evens Test Positive Respiration Rate 12 O2 Delivery Device BiPAP Vent Mode BiLevel POC PEEP 8 Clinical Comments 12/02 Physical Exam Narrative GENERAL: Dyspneic at rest HEENT: Atraumatic; normocephalic EYES; Anicteric, Normal Conjunctiva NECK; supple, normal thyroid, RESPIRATORY: Diminished to auscultation CARDIOVASCULAR: Regular S1 S2, GI: soft, normoactive bowel sounds, : No Renal angle tenderness; EXTREMITIES: No edema, no clubbing, MUSCULOSKELETAL: no muscle wasting NEURO: Awake; no lateralizing signs. SKIN: No Rash PSYCH; Flat affect Assessment & Plan Assessment/Plan (1) Fever: (2) HCAP (healthcare-associated pneumonia): (3) Respiratory failure: PLAN: Plan Patient is a 72-year-old lady with multiple comorbidities including paroxysmal atrial fibrillation on Eliquis, end-stage renal disease on hemodialysis diabetes mellitus type 2, essential hypertension dyslipidemia osteoarthritis chronic hypoxic respiratory failure secondary to COPD/asthma on home oxygen who presented with?shortness of breath 1. Acute hypoxic respiratory failure ? Evidenced by patient being tachypneic, using accessory muscles in breathing as well as respiratory rate of 27. Patient had to be placed on BiPAP 100% with FiO2 of 30% to maintain adequate saturation. Patient acute hypoxic respiratory failure attributed to pneumonia. Admitted to a monitored bed with treatment of underlying condition ? 06/18/2022 patient remains on supplemental oxygen, plan is to titrate to keep saturation greater than 90 2. Pneumonia with suspected MDR ? Patient was started on cefepime as well as azithromycin to cover for possible atypicals as well as vancomycin given patient at risk for MRSA given her frequent hospitalization and ESRD. Cultures were sent on admission we will follow-up on results. Patient initial COVID and influenza assay came back negative ordered acute viral respiratory panel -06/18/2022 Blood cultures came back positive for strep no strep pneumonia. Her viral respiratory panel was positive for influenza A. Tamiflu added to patient's treatment dose adjusted for kidney function 3. Chronic hypoxic respiratory failure ? Secondary to COPD patient is on baseline oxygen 2 L at rest 4. End-stage renal disease ? Patient is on hemodialysis Wednesdays and Fridays consult placed to nephrology for dialysis orders 5. Chronic congestive heart failure with preserved ejection fraction ? Echo obtained on 04/20/2021 demonstrated EF of 55% currently stable 6. Hypertension - Blood pressure controlled, home medications continued with dose adjustment as needed 7. Chronic pain syndrome ? Patient is on gabapentin as well as oxycodone as needed did continue with home regimen 8. GERD ? On PPI 9. Paroxysmal A. fib ? Patient presented in sinus rhythm patient is on carvedilol for rate control as well as systemic anticoagulation with apixaban 10. Anemia - Secondary to chronic disorder monitoring H&H and transfuse if patient becomes symptomatic or hemoglobin falls below 7 11. Depression with anxiety ?Patient is on Remeron and duloxetine did continue with home dose 12. History of DVT -Patient is on Eliquis 2.5 mg p.o. twice daily Charges/Coding Visit Charges Inpatient E&M: 78082 Subs Hosp L3
[2022-06-18 10:10] LABS: Anisocytosis 2+; Differential Comment SCANNED; Hypochromasia 1+; Macrocytosis 1+; Microcytosis 1+
[2022-06-18] MEDS: 0.9% Saline Lock 10 ML Syringe IV (10:53)
[2022-06-18] MEDS: HYDROmorphone 1 MG/ML Syringe IV (10:53)
[2022-06-18] MEDS: Calcium Carbonate 500 MG Tablet PO (14:37)
[2022-06-18] MEDS: Gabapentin 300 MG Capsule PO (16:53)
[2022-06-18] MEDS: Oseltamivir Phosphate 30 MG Capsule PO (21:02)
[2022-06-18] MEDS: Mirtazapine 15 MG Tablet 45 MG PO (21:03)
[2022-06-18] MEDS: Montelukast 10 MG Tablet PO (21:04)
[2022-06-19] VITALS (26 sets, daily range): BP systolic 113–144; BP diastolic 58–80; PULSE 56–103; RESP 12–26; TEMP 36.4–37.2; O2SAT 94–100
[2022-06-19] MEDS: Ipratropium/Albuterol Sulfate 3 ML AMPUL.NEB INHALATION ×4 (01:10→20:55)
--- NOTE | 2022-06-19 05:22 | CPS ---
Pt declined use of bipap, 98 2L nasal o2
[2022-06-19] MEDS: hydrALAZINE 50 MG Tablet 100 MG PO ×2 (05:59→23:04)
[2022-06-19] MEDS: Dicyclomine 10 MG Capsule 20 MG PO ×3 (06:00→18:32)
[2022-06-19] MEDS: Acetaminophen 500 MG Tablet 1000 MG PO ×3 (06:00→23:06)
[2022-06-19] MEDS: oxyCODONE 5 MG Tablet PO ×2 (06:03→23:07)
[2022-06-19] MEDS: 0.9% Saline Lock 10 ML Syringe IV ×3 (06:05→18:34)
[2022-06-19 06:19] LABS: Absolute Lymphocyte Count 0.81 X10^3/uL (0.83-4.51); Absolute Neutrophil Count 14.3 X10^3/uL (2.0-7.7); Basophil# 0.02 X10^3/uL; Basophil% 0.1 % (0-1); Eosinophil# 0.16 X10^3/uL; Hematocrit 26.4 % (37-47); Lymphocyte # 0.81 X10^3/ul (0.83-4.51); Lymphocyte % 4.9 % (19-41); Mean Corp Hgb Conc 30.3 g/dL (32-36); Mean Corpuscular Hgb 30.5 pg (27.0-32.0); Mean Corpuscular Volume 100.8 fL (81-99); Mean Platelet Vol. 9.9 fl (6.2-12.0); Monocyte# 1.05 X10^3/uL; Monocyte% 6.4 % (0-10); NRBC Flagged by Analyzer 0.7 % (0-5); Neutrophil # 14.31 X10^3/uL (2.7-7.7); Neutrophil % 86.9 % (47-70); POSITIVE MORPHOLOGY YES; Platelet Count 190 K/mm3 (150-450); RBC Distribution Width CV 18.4 % (11.6-14.6); RBC Distribution Width SD 68.6 fl (35.1-43.9); Red Blood Count 2.62 M/mm3 (4.2-5.4); White Blood Count 16.5 K/mm3 (4.4-11.0)
[2022-06-19 06:43] LABS: Anion Gap 7 (5-15); BUN 80 mg/dL (7-18); BUN/Creat Ratio 11.3 RATIO (10-20); Calcium,Total 8.9 mg/dL (8.5-10.1); Chloride 101 mmol/L (98-107); Creatinine, Serum 7.08 mg/dL (0.55-1.02); EST Glomerular Filtration Rate 6 mL/min (>60); Est Glom Filt Rate - Afr Amer 7 mL/min (>60); Estimated Creatinine Clearance 7.73 ml/min; Glucose 86 mg/dL (74-106); Potassium 5.4 mmol/L (3.5-5.1); Sodium Level 138 mmol/L (136-145)
[2022-06-19 06:45] LABS: Vancomycin, Random Level 17.5 ug/mL (0.0-15.0)
[2022-06-19 07:20] LABS: Differential Indicated SCAN CRITERIA MET
[2022-06-19 08:37] LABS: Anisocytosis 1+
--- NOTE | 2022-06-19 09:36 | CASEMGMT ---
Discharge De Icer This senior writer sent updates to Vicky via [facility] Ashley Zavala [employer]
--- NOTE | 2022-06-19 10:29 | CT_ITS ---
STUDY: CT SCAN HIP RIGHT REASON FOR EXAM: Female, 72 years old. Hip pain -- ? infection. The patient is status post total hip replacement. RADIATION DOSAGE (If Supplied By Facility): CTDIvol = ( 17.87 ) mGy, DLP = ( 597.83 ) mGycm. Individualized dose optimization techniques were used for this CT.? TECHNIQUE: Multiple axial sonographic images of the right hip joint were obtained without intravenous contrast demonstration. Coronal and sagittal reconstruction was obtained as well. COMPARISON: None. FINDINGS: The patient is status post right hip replacement. There is good alignment. There is evidence of a 6.2 cm x 4.3 cm x 3.8 cm rounded soft tissue density overlying the anterior aspect of the prosthetic hip. This may represent a postoperative hematoma. No bony destruction is seen. There is also evidence of a soft tissue prominence within the subcutaneous fat most likely postoperative in nature. CT/Extremity Lower without Contra IMPRESSION: Status post right total hip replacement. There is a 6.2 cm x 4.3 cm x 3.8 cm rounded soft tissue density overlying the anterior aspect of the prosthetic hip. This may represent a postoperative hematoma or fluid collection. Electronically Signed: Lopez Barraza MD at 13:10 EST ,
[2022-06-19] MEDS: Ondansetron 4 MG/2 ML Vial IV (10:42)
[2022-06-19] MEDS: HYDROmorphone 1 MG/ML Syringe IV (10:42)
[2022-06-19] MEDS: Polyethylene Glycol 3350 17 GM PACKET PO (10:48)
[2022-06-19] MEDS: predniSONE 5 MG Tablet 10 MG PO (10:49)
[2022-06-19] MEDS: APIXABAN 2.5 MG TABLET (WCH) PO (10:49)
[2022-06-19] MEDS: Calcium Acetate 667 MG Capsule 2001 MG PO ×3 (10:49→18:32)
[2022-06-19] MEDS: Pantoprazole Sodium 20 MG Tablet PO (10:50)
[2022-06-19] MEDS: DULoxetine Hcl 60 MG Capsule PO (10:50)
[2022-06-19] MEDS: Carvedilol 25 MG Tablet PO ×2 (10:51→23:05)
[2022-06-19] MEDS: guaiFENesin 1,200 MG Tablet 1200 MG PO ×2 (10:51→23:10)
[2022-06-19] MEDS: Azithromycin 250 MG Tablet 500 MG PO (10:51)
[2022-06-19] MEDS: amLODIPine 10 MG Tablet PO (10:51)
[2022-06-19] MEDS: Midodrine HCl 5 MG Tablet 10 MG PO (10:56)
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
--- NOTE | 2022-06-19 17:47 | DIALYSIS ---
hemodialysis completed x 3.5 hrs. Access via right chest Hd cath. dressing changed. Net UF 2600ml. pt court well. See HD flowsheet on chart.
--- NOTE | 2022-06-19 18:06 | PCM.PN.HOSP ---
Subjective Subjective Patient complaining of horrible hip pain that is in the anterior hip joint and lateral hip that radiates down her anterior thigh. Indicates it started yesterday. Dilaudid was ordered. I am concerned with her bacteremia and a CT was obtained locating a fluid collection. Patient states respiratory status is at baseline and she is feeling okay with regards to that. Objective Data Objective Data Vital Signs: Vital Signs Temp Pulse Resp BP Pulse Ox O2 Del Method O2 Flow Rate 97.6 F L 56 L 18 144/80 H 100 Nasal Cannula 2 06/19/22 17:46 06/19/22 17:46 06/19/22 17:46 06/19/22 17:46 06/19/22 17:46 06/19/22 17:46 06/19/22 17:46 FiO2 25 06/19/22 07:58 Oxygen Flow Rate (L/min) 2 Oxygen Delivery Method Nasal Cannula Weight: 74 kg Body Mass Index (BMI) 24.0 Intake & Output: Intake and Output for Last 24 Hours 06/17/22 06/18/22 06/19/22 23:59 23:59 23:59 Intake Total 690 / 690 290 / 290 360 / 360 Output Total 20 / 40 2680 / 2680 Balance 690 / 690 270 / 250 -2320 / -2320 Lab / Micro Data Result Diagrams: 06/19/22 06:05 06/19/22 06:05 Labs: Laboratory Results - last 24 hr 06/19/22 06:05: WBC 16.5 H, RBC 2.62 L, Hgb 8.0 L, Hct 26.4 L, MCV 100.8 H, MCH 30.5, MCHC 30.3 L, RDW Std Deviation 68.6 H, RDW Coeff of Destiny 18.4 H, Plt Count 190, MPV 9.9, Immature Gran % (Auto) 0.700, Neut % (Auto) 86.9 H, Lymph % (Auto) 4.9 L, Reynolds % (Auto) 6.4, Eos % (Auto) 1.0, Baso % (Auto) 0.1, Absolute Neuts (auto) 14.3 H, Absolute Lymphs (auto) 0.81 L, Nucleated RBC % 0.7, Anisocytosis 1+ 06/19/22 06:05: Sodium 138, Potassium 5.4 H, Chloride 101, Carbon Dioxide 30.0, Anion Gap 7, BUN 80 H, Creatinine 7.08 H, Estim Creat Clear Calc 7.73, Est GFR (MDRD) Af Amer 7 L, Est GFR (MDRD) Non-Af 6 L, BUN/Creatinine Ratio 11.3, Glucose 86, Calcium 8.9 06/19/22 06:05: Random Vancomycin 17.5 H Micro: Microbiology 06/17/22 10:35 Blood Culture (Wb) - Venous Bacteria Detection (PCR) - Preliminary Strep not Strep pneumo 06/17/22 10:35 Blood Culture (Wb) - Venous Blood Culture - Preliminary Streptococcus pneumoniae Gram negative quentin 06/17/22 06:30 Sputum, Expectorated/Coughed Gram Stain - Final 06/17/22 06:30 Sputum, Expectorated/Coughed Respiratory Culture - Final Pseudomonas aeroginosa 06/17/22 11:07 Mucosa - Nose Respiratory Panel (PCR) - Final Influenza A (Subtype H1) 06/17/22 06:58 Nasal Secretion SARS-CoV-2 & FLU Antigen (Rapid) - Final Radiography Diagnostic Testing: Radiology Impression Lower Extremity CT 06/19/22 10:29 IMPRESSION: Status post right total hip replacement. There is a 6.2 cm x 4.3 cm x 3.8 cm rounded soft tissue density overlying the anterior aspect of the prosthetic hip. This may represent a postoperative hematoma or fluid collection. Electronically Signed: Lopez Barraza MD at 13:10 EST Reading Location ID and State: [facility] / [place] , Service support , Physical Exam Const alert and oriented x3 Constitutional Narrative: Older, -[place] female, sitting up in bed, appears very uncomfortable complaining of right hip pain, nontoxic appearing at this time, remains on baseline oxygen at 2 L HEENT head/scalp atraumatic, moist oral mucous membranes and oropharynx normal Eyes PERRL and EOMs intact bilaterally Eyes Narrative: Mild conjunctival pallor bilaterally, no scleral icterus Neck no lymphadenopathy and supple Neck Narrative: Trachea midline, no thyroid enlargement Resp normal respiratory effort, no retractions, no use of accessory muscles and clear to auscultation bilaterally Resp Narrative: Diffusely diminished but clear with no current wheezing Auscultation: Negative for crackles, rhonchi or wheezes Cardio regular rate, regular rhythm, S1 normal heart sound, S2 normal heart sound, no murmurs, no rub, no gallops and no clicks GI normal to inspection, nondistended, normoactive bowel sounds, soft to palpation, non-tender and non-distended Extremity no clubbing, cyanosis or edema Extremity Narrative: 2+ pedal pulses, right lower extremity in flexion with guarding and pain with palpation at the lateral anterior hip, resistant to movement, warm to the touch but consistent with overall body temperature, no noted fluctuance Neuro oriented x3, moves all extremities and no focal motor deficits Speech: speech normal Psych Psych Narrative: Patient appears to be in acute pain, no acute needs, no signs of depression Assessment & Plan Assessment/Plan (1) Bacteremia: (2) HCAP (healthcare-associated pneumonia): (3) Influenza: (4) Right hip pain: PLAN: Plan Bacteremia -Current organisms listed as strep pneumo and a gram-negative quentin -Gram-negative quentin may be Pseudomonas with sputum positive for Pseudomonas however strep pneumo etiology is unclear at this time -CT of the hip obtained and fluid collection noted -Concerning for infection--> Ortho consulted and recommended CT-guided process -CT-guided aspiration ordered for tomorrow--> if positive and Ortho here can address may need transfer to tertiary center -Hold Eliquis and check a.m. tito -Infectious disease consulted by me this morning and recommends continuing vancomycin and cefepime -Continue to follow cultures -Likely need PICC and IV antibiotics at discharge HCAP secondary to Pseudomonas/influenza A -Continue antibiotics as above -Continue Tamiflu- as ordered -Patient is overall doing fairly well from a respiratory standpoint giving above infections and chronic respiratory failure -Currently only requiring 2 L nasal cannula at rest which is her baseline Chronic hypoxic respiratory failure -Patient is clinically stable on her baseline 2 L nasal cannula at rest/uses 4 L with exertion -Is a surprising given her above pneumonia and influenza infection -Aerosols as ordered -Continue home baseline prednisone -Restart inhalers at discharge -Continue BiPAP as needed -Monitor on telemetry -Outpatient pulmonary follow-up after discharge\ -Suspect patient would benefit from nocturnal trilogy if she is able to qualify Acute hip pain -CT shows fluid collection anterior to previous hip arthroplasty -CT-guided aspiration and cultures pending -Hold Eliquis -Check a.m. coags -If cannot be done here will need transfer to tertiary center End-stage renal disease-HD dependent -Nephrology consulted -Continue midodrine with dialysis -HD MWF -Continue phosphate binder -Renally dose all medications Diastolic heart failure -X-ray appears stable in appearance from previous -Continue home cardiac medications -Most recent echo from 04/20/2021 shows an EF of 55% with mild left atrial enlargement COPD -Hold chronic prednisone 5 mg daily for Solu-Medrol -Hold home inhalers -Scheduled aerosols as above -Needs close outpatient pulmonary follow-up after discharge GERD -Continue PPI Chronic constipation -Continue lactulose as needed and MiraLAX scheduled -Continue as needed docusate Neuropathy -Continue gabapentin -Dosing is adjusted for renal failure -Continue oxycodone as needed Hypertension -Continue amlodipine -Continue carvedilol -Continue hydralazine Paroxysmal atrial fibrillation -Currently in normal sinus rhythm -Continue home carvedilol -Continue home Eliquis 2.5 mg twice daily 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 twice daily CODE STATUS -Full code Charges/Coding Visit Charges Inpatient E&M: 68752 [facility] Hosp L3
[2022-06-19] MEDS: Heparin 10,000 UNITS/10 ML Vial IV (18:31)
[2022-06-19 18:33] LABS: International Normalized Ratio 1.3; Prothrombin Time (Protime)PT. 15.4 SECONDS (11.7-14.9)
[2022-06-19 18:34] LABS: Partial Thromboplast Time 28.8 Seconds (24.1-36.2)
[2022-06-19] MEDS: Gabapentin 600 MG Tablet PO (18:44)
--- NOTE | 2022-06-19 19:00 | NURSING ---
Emergency Documentation in effect
--- NOTE | 2022-06-19 19:00 | PCA ---
EMERGENCY DOCUMENTATION
[2022-06-19] MEDS: Vancomycin IV 500 MG/100 ML BAG 100 MG IV (20:56)
[2022-06-19] MEDS: Montelukast 10 MG Tablet PO (23:06)
[2022-06-19] MEDS: Mirtazapine 15 MG Tablet 45 MG PO (23:06)
[2022-06-19] MEDS: MELATONIN 3 MG TABLET PO (23:07)
[2022-06-19] MEDS: Oseltamivir Phosphate 30 MG Capsule PO (23:10)
[2022-06-20] VITALS (23 sets, daily range): BP systolic 113–121; BP diastolic 50–102; PULSE 70–89; RESP 12–26; TEMP 36.3–37.3; O2SAT 96–100
[2022-06-20] MEDS: Ipratropium/Albuterol Sulfate 3 ML AMPUL.NEB INHALATION ×4 (03:23→19:49)
[2022-06-20] MEDS: hydrALAZINE 50 MG Tablet 100 MG PO ×3 (06:37→20:42)
[2022-06-20] MEDS: Acetaminophen 500 MG Tablet 1000 MG PO ×3 (06:37→20:44)
[2022-06-20] MEDS: Dicyclomine 10 MG Capsule 20 MG PO ×3 (06:38→16:20)
[2022-06-20] MEDS: oxyCODONE 5 MG Tablet PO ×2 (06:38→14:55)
[2022-06-20 08:10] LABS: Absolute Lymphocyte Count 0.71 X10^3/uL (0.83-4.51); Absolute Neutrophil Count 10.4 X10^3/uL (2.0-7.7); Basophil# 0.02 X10^3/uL; Basophil% 0.2 % (0-1); Eosinophil# 0.16 X10^3/uL; Eosinophils% 1.3 % (0-5); Hematocrit 25.1 % (37-47); Hemoglobin 7.4 g/dL (12.0-15.0); Lymphocyte # 0.71 X10^3/ul (0.83-4.51); Lymphocyte % 5.7 % (19-41); Mean Corp Hgb Conc 29.5 g/dL (32-36); Mean Corpuscular Hgb 30.3 pg (27.0-32.0); Mean Corpuscular Volume 102.9 fL (81-99); Mean Platelet Vol. 9.8 fl (6.2-12.0); Monocyte# 1.04 X10^3/uL; Monocyte% 8.4 % (0-10); NRBC Flagged by Analyzer 0.7 % (0-5); Neutrophil # 10.41 X10^3/uL (2.7-7.7); Neutrophil % 83.8 % (47-70); POSITIVE MORPHOLOGY YES; Platelet Count 166 K/mm3 (150-450); RBC Distribution Width CV 18.4 % (11.6-14.6); RBC Distribution Width SD 69.4 fl (35.1-43.9); Red Blood Count 2.44 M/mm3 (4.2-5.4); White Blood Count 12.4 K/mm3 (4.4-11.0)
[2022-06-20] MEDS: Polyethylene Glycol 3350 17 GM PACKET PO (08:28)
[2022-06-20] MEDS: DULoxetine Hcl 60 MG Capsule PO (08:29)
[2022-06-20] MEDS: predniSONE 5 MG Tablet 10 MG PO (08:29)
[2022-06-20] MEDS: guaiFENesin 1,200 MG Tablet 1200 MG PO ×2 (08:29→20:42)
[2022-06-20] MEDS: Calcium Acetate 667 MG Capsule 2001 MG PO ×3 (08:29→16:26)
[2022-06-20] MEDS: Pantoprazole Sodium 20 MG Tablet PO (08:30)
[2022-06-20] MEDS: Azithromycin 250 MG Tablet 500 MG PO (08:30)
[2022-06-20] MEDS: amLODIPine 10 MG Tablet PO (08:31)
[2022-06-20] MEDS: Carvedilol 25 MG Tablet PO ×2 (08:31→20:42)
[2022-06-20] MEDS: HYDROmorphone 1 MG/ML Syringe IV (08:32)
[2022-06-20] MEDS: 0.9% Saline Lock 10 ML Syringe IV ×2 (08:32→11:38)
[2022-06-20 08:51] LABS: ALB/GLOB Ratio 0.6 RATIO (0.9-2.4); AST(SGOT) 16 U/L (15-37); Alanine Aminotransfer ALT/SGPT 28 U/L (13-56); Albumin, Serum 2.1 g/dL (3.2-5.0); Alkaline Phosphatase 68 U/L (45-117); Anion Gap 7 (5-15); BUN 41 mg/dL (7-18); BUN/Creat Ratio 9.2 RATIO (10-20); Calcium,Total 8.6 mg/dL (8.5-10.1); Chloride 100 mmol/L (98-107); Creatinine, Serum 4.45 mg/dL (0.55-1.02); EST Glomerular Filtration Rate 10 mL/min (>60); Est Glom Filt Rate - Afr Amer 13 mL/min (>60); Estimated Creatinine Clearance 12.29 ml/min; Globulin 3.4 g/dL (2.2-4.2); Glucose 70 mg/dL (74-106); Magnesium 2.3 mg/dL (1.6-2.6); Phosphorus 3.2 mg/dL (2.5-4.9); Potassium 4.3 mmol/L (3.5-5.1); Protein, Total 5.5 g/dL (6.4-8.2); Sodium Level 137 mmol/L (136-145)
[2022-06-20 08:58] LABS: Differential Indicated SCAN CRITERIA MET
[2022-06-20 10:23] LABS: Anisocytosis 2+; Microcytosis 1+
[2022-06-20 10:24] LABS: Macrocytosis 1+
[2022-06-20 10:25] LABS: Ovalocyte 1+; Tear Drop Cell RARE
[2022-06-20 10:26] LABS: Polychromasia RARE
--- NOTE | 2022-06-20 11:00 | PCM.PN.ID ---
Physical Exam Narrative R hip much more painful. No fever. Const alert; Negative for no apparent distress Resp normal air movement and clear to auscultation bilaterally Auscultation: diminished lung sounds Cardio regular rate and regular rhythm GI soft to palpation, non-tender and non-distended Extremity General Extremity: Negative for edema Skin no rashes or lesions noted ID ID: Route of nutrition/ use of supplements: [] Nutritional Intake: [] IV Site: [] [place] Catheter: [] Assessment & Plan Assessment/Plan (1) HCAP (healthcare-associated pneumonia): (2) Chronic respiratory failure with hypoxia, on home O2 therapy: (3) ESRD (end stage renal disease) on dialysis: (4) Fever: PLAN: Bcx with PsA and strep. Sputum cx with pseudomonas. Flu (+). R hip replacement now with pain and fluid collection seen. Ortho consulted. Cont tamiflu, vanc/cefepime. Hip much more painful this AM. Aspiration planned, but due to worsening pain, if can't be seen by ortho, will need to consider transfer. Will follow, d/w Dr. Nichols (5) Bacteremia:
[2022-06-20] MEDS: Calcium Carbonate 500 MG Tablet PO (11:31)
[2022-06-20] MEDS: Ondansetron 4 MG/2 ML Vial IV (11:38)
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
--- NOTE | 2022-06-20 15:39 | CHAPLAIN ---
Type of Pastoral Visit _x__ Initial Visit ___ Follow-up Visit ___ On-call Visit ___ General Patient Visit ___ Spiritual Assessment ___ Family Conference ___ Bereavement ___ Rapid Response ___ Code Blue ___ Other (describe below) Pastoral Care Referral From _x__ Patient ___ Family ___ Nurse ___ Physician ___ Quality Control Tech ___ Equipment Sterilizer ___ Other (describe below) Sacrament/Intervention _x__ Active listening ___ Anointing ___ Spiritism ___ Bereavement ___ Communion ___ Flaca exploration ___ _x__ Life review _x__ Prayer ___ Reconciliation ___ Sacrament of Sick _x__ Supportive presence ___ Wedding ___ Other (describe below) Pastoral Comments patient has had numerous admissions and is well known by now to this supervisor varnish; pt welcomes presence and prayer of this supervisor varnish; pt gives latest update on health and family concerns; pt still has goal of moving to [place] to be with a niece but admits that this will take much preparation and resettlement for health needs; pt gives casual conversation and then asks for a prayer
--- NOTE | 2022-06-20 16:19 | PN.HOSP_ITS ---
Subjective Subjective Patient still complaining of right hip pain and indicates she is not getting a whole lot of relief with her current medications. Asks if we can change medications and I told her I would look and do what I could. No respiratory issues at this time. I discussed with her the findings on the CAT scan and the plan for the aspiration to be performed on 06/21/2022. Objective Data Objective Data Vital Signs: Vital Signs Temp Pulse Resp BP Pulse Ox O2 Del Method O2 Flow Rate 97.9 F 85 18 113/52 L 100 Nasal Cannula 2 06/20/22 14:45 06/20/22 15:00 06/20/22 14:45 06/20/22 14:55 06/20/22 14:45 06/20/22 14:45 06/20/22 14:45 FiO2 30 06/20/22 13:58 Oxygen Flow Rate (L/min) 2 Oxygen Delivery Method Nasal Cannula Weight: 74 kg Body Mass Index (BMI) 24.0 Intake & Output: Intake and Output for Last 24 Hours 06/18/22 06/19/22 06/20/22 23:59 23:59 23:59 Intake Total 290 / 290 630 / 630 240 / 240 Output Total 2680 / 2680 0 / 0 Balance 270 / 250 -2050 / -2050 240 / 240 Lab / Micro Data Result Diagrams: 06/20/22 07:34 06/20/22 07:34 Labs: Laboratory Results - last 24 hr 06/19/22 18:15: PT 15.4 H, INR 1.3, APTT 28.8 06/20/22 07:34: WBC 12.4 H, RBC 2.44 L, Hgb 7.4 L, Hct 25.1 L, MCV 102.9 H, MCH 30.3, MCHC 29.5 L, RDW Std Deviation 69.4 H, RDW Coeff of Destiny 18.4 H, Plt Count 166, MPV 9.8, Immature Gran % (Auto) 0.600, Neut % (Auto) 83.8 H, Lymph % (Auto) 5.7 L, [place] % (Auto) 8.4, Eos % (Auto) 1.3, Baso % (Auto) 0.2, Absolute Neuts (auto) 10.4 H, Absolute Lymphs (auto) 0.71 L, Nucleated RBC % 0.7, Polychromasia RARE, Anisocytosis 2+, Microcytosis 1+, Macrocytosis 1+, Tear Drop Cells RARE, Ovalocytes 1+ 06/20/22 07:34: Sodium 137, Potassium 4.3, Chloride 100, Carbon Dioxide 30.0, Anion Gap 7, BUN 41 H, Creatinine 4.45 H, Estim Creat Clear Calc 12.29, Est GFR (MDRD) Af Amer 13 L, Est GFR (MDRD) Non-Af 10 L, BUN/Creatinine Ratio 9.2 L, Glucose 70 L, Calcium 8.6, Phosphorus 3.2, Magnesium 2.3, Total Bilirubin 0.90, AST 16, ALT 28, Alkaline Phosphatase 68, Total Protein 5.5 L, Albumin 2.1 L, Globulin 3.4, Albumin/Globulin Ratio 0.6 L Micro: Microbiology 06/17/22 10:35 Blood Culture (Wb) - Venous Bacteria Detection (PCR) - Preliminary Strep not Strep pneumo 06/17/22 10:35 Blood Culture (Wb) - Venous Blood Culture - Preliminary Alpha Hemolytic Streptococcus Pseudomonas aeroginosa 06/19/22 20:00 Urine, Random Streptococcus pneumoniae Antigen (M - Final 06/19/22 18:54 Urine, Random Legionella Antigen - Final 06/17/22 06:30 Sputum, Expectorated/Coughed Gram Stain - Final 06/17/22 06:30 Sputum, Expectorated/Coughed Respiratory Culture - Final Pseudomonas aeroginosa 06/17/22 11:07 Mucosa - Nose Respiratory Panel (PCR) - Final Influenza A (Subtype H1) 06/17/22 06:58 Nasal Secretion SARS-CoV-2 & FLU Antigen (Rapid) - Final Physical Exam Const alert and oriented x3 Constitutional Narrative: Older, -[place] female, sitting up in bed, appears uncomfortable but less so as compared to yesterday, nontoxic appearing at this time, remains on ba seline oxygen at 2 L HEENT head/scalp atraumatic, moist oral mucous membranes and oropharynx normal HEENT Narrative: No thrush, Mallampati 2-3, edentulous Resp normal respiratory effort, no retractions, no use of accessory muscles and clear to auscultation bilaterally Resp Narrative: Diffusely diminished but clear with no current wheezing Auscultation: Negative for crackles, rhonchi or wheezes Cardio regular rate, regular rhythm, S1 normal heart sound, S2 normal heart sound, no murmurs, no rub, no gallops and no clicks GI normal to inspection, nondistended, normoactive bowel sounds, soft to palpation, non-tender and non-distended Extremity no clubbing, cyanosis or edema Extremity Narrative: 2+ pedal pulses, right lower extremity is straight, still tenderness with palpation and guarding noted Neuro oriented x3, moves all extremities and no focal motor deficits Speech: speech normal Assessment & Plan Assessment/Plan (1) Bacteremia: (2) HCAP (healthcare-associated pneumonia): (3) Influenza: (4) Right hip pain: PLAN: Plan Alphahemolytic strep and pseudomonal bacteremia -Pseudomonas likely from respiratory source however also he will melenic strep source is unidentified -Gram-negative quentin may be Pseudomonas with sputum positive for Pseudomonas however strep pneumo etiology is unclear at this time -CT of the hip obtained and fluid collection noted -Concerning for infection--> Ortho consulted and recommended CT-guided process -CT-guided aspiration ordered and will be done on 06/21/2022--> if positive and Ortho here can address may need transfer to tertiary center -Hold Eliquis until procedure is completed -ID is following and continuing cefepime and vancomycin at this time -Continue to follow cultures -Likely need PICC and IV antibiotics at discharge HCAP secondary to Pseudomonas/influenza A -Continue antibiotics as above -Continue Tamiflu- as ordered -Patient is overall doing fairly well from a respiratory standpoint giving above infections and chronic respiratory failure -Currently only requiring 2 L nasal cannula at rest which is her baseline Chronic hypoxic respiratory failure -Patient is clinically stable on her baseline 2 L nasal cannula at rest/uses 4 L with exertion -Is a surprising given her above pneumonia and influenza infection -Aerosols as ordered -Continue home baseline prednisone -Restart inhalers at discharge -Continue BiPAP as needed -Monitor on telemetry -Outpatient pulmonary follow-up after discharge -Suspect patient would benefit from nocturnal trilogy if she is able to qualify Acute hip pain -CT shows fluid collection anterior to previous hip arthroplasty -CT-guided aspiration and cultures to be done tomorrow -Hold Eliquis -Check a.m. coags -Depending on result of the above patient may need to be referral to I have consulted orthopedics however they deferred to CT surgery and if infection is identified will need to address with joint specialist per discussion with Dr. Kumar -Increase oxycodone -Continue as needed Dilaudid for breakthrough -Need to monitor respiratory status closely with narcotics End-stage renal disease-HD dependent -Nephrology consulted -Continue midodrine with dialysis -HD MWF -Continue phosphate binder -Renally dose all medications Diastolic heart failure -X-ray appears stable in appearance from previous -Continue home cardiac medications -Most recent echo from 04/20/2021 shows an EF of 55% with mild left atrial enlargement COPD -Continue chronic home prednisone with stable respiratory status -Hold home inhalers -Scheduled aerosols as above -Needs close outpatient pulmonary follow-up after discharge GERD -Continue PPI Chronic constipation -Continue lactulose as needed and MiraLAX scheduled -Continue as needed docusate Neuropathy -Continue gabapentin -Dosing is adjusted for renal failure -Continue oxycodone as needed Hypertension -Continue amlodipine -Continue carvedilol -Continue hydralazine Paroxysmal atrial fibrillation -Currently in normal sinus rhythm -Continue home carvedilol -Continue home Eliquis 2.5 mg twice daily 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 twice daily--> on hold for procedure will restart after procedure completed CODE STATUS -Full code Charges/Coding Visit Charges Inpatient E&M: 28362 [facility] Hosp L2
[2022-06-20] MEDS: Heparin 10,000 UNITS/10 ML Vial 3200 UNITS IV (16:20)
[2022-06-20] MEDS: Gabapentin 300 MG Capsule PO (16:20)
--- NOTE | 2022-06-20 16:28 | DIALYSIS ---
one set of blood cultures drawn from R chest HD cath. port flushed and closed with heparin. pt court well. report to Darron PAREDES.
[2022-06-20] MEDS: Oseltamivir Phosphate 30 MG Capsule PO (20:41)
[2022-06-20] MEDS: MELATONIN 3 MG TABLET PO (20:41)
[2022-06-20] MEDS: Mirtazapine 15 MG Tablet 45 MG PO (20:42)
[2022-06-20] MEDS: oxyCODONE 5 MG Tablet 10 MG PO (20:44)
[2022-06-20] MEDS: Montelukast 10 MG Tablet PO (20:44)
[2022-06-21] VITALS (31 sets, daily range): BP systolic 102–138; BP diastolic 48–108; PULSE 68–100; RESP 12–26; TEMP 36.3–36.8; O2SAT 93–100; BMI 24.0
[2022-06-21] MEDS: Ipratropium/Albuterol Sulfate 3 ML AMPUL.NEB INHALATION ×4 (00:34→20:50)
[2022-06-21 06:30] LABS: Absolute Lymphocyte Count 0.81 X10^3/uL (0.83-4.51); Absolute Neutrophil Count 9.4 X10^3/uL (2.0-7.7); Basophil# 0.03 X10^3/uL; Basophil% 0.3 % (0-1); Eosinophil# 0.13 X10^3/uL; Eosinophils% 1.1 % (0-5); Hematocrit 28.1 % (37-47); Hemoglobin 7.8 g/dL (12.0-15.0); Lymphocyte # 0.81 X10^3/ul (0.83-4.51); Mean Corp Hgb Conc 27.8 g/dL (32-36); Mean Corpuscular Hgb 30.2 pg (27.0-32.0); Mean Corpuscular Volume 108.9 fL (81-99); Mean Platelet Vol. 9.8 fl (6.2-12.0); Monocyte# 1.05 X10^3/uL; Monocyte% 9.1 % (0-10); NRBC Flagged by Analyzer 1.1 % (0-5); Neutrophil # 9.38 X10^3/uL (2.7-7.7); Neutrophil % 81.5 % (47-70); POSITIVE MORPHOLOGY YES; Platelet Count 165 K/mm3 (150-450); RBC Distribution Width CV 18.8 % (11.6-14.6); RBC Distribution Width SD 74.7 fl (35.1-43.9); Red Blood Count 2.58 M/mm3 (4.2-5.4); White Blood Count 11.5 K/mm3 (4.4-11.0)
[2022-06-21] MEDS: Acetaminophen 500 MG Tablet 1000 MG PO ×3 (06:30→21:15)
[2022-06-21] MEDS: Dicyclomine 10 MG Capsule 20 MG PO ×3 (06:30→15:01)
[2022-06-21] MEDS: oxyCODONE 5 MG Tablet 10 MG PO ×3 (06:31→21:13)
[2022-06-21] MEDS: hydrALAZINE 50 MG Tablet 100 MG PO ×3 (06:31→21:13)
[2022-06-21 06:43] LABS: Differential Indicated SCAN CRITERIA MET
[2022-06-21 07:02] LABS: Differential Comment SCANNED
[2022-06-21 07:03] LABS: Anisocytosis 2+; Macrocytosis 1+; Microcytosis 1+; Ovalocyte RARE; Polychromasia 1+
[2022-06-21 07:10] LABS: Albumin, Serum 2.1 g/dL (3.2-5.0); Anion Gap 8 (5-15); BUN 55 mg/dL (7-18); BUN/Creat Ratio 9.4 RATIO (10-20); Chloride 101 mmol/L (98-107); Creatinine, Serum 5.88 mg/dL (0.55-1.02); EST Glomerular Filtration Rate 8 mL/min (>60); Est Glom Filt Rate - Afr Amer 9 mL/min (>60); Glucose 71 mg/dL (74-106); Phosphorus 3.7 mg/dL (2.5-4.9); Potassium 4.7 mmol/L (3.5-5.1); Sodium Level 135 mmol/L (136-145)
[2022-06-21] MEDS: Midazolam 2 MG/2 ML Syringe IV (08:42)
[2022-06-21] MEDS: fentaNYL 100 MCG/2 ML Ampul IV (08:45)
[2022-06-21] MEDS: Lidocaine 1% (20 ml mdv) 20 ML Vial INFILT (08:55)
--- NOTE | 2022-06-21 09:00 | CT_ITS ---
PROCEDURE: CT DIRECTED ABSCESS DRAINAGE, right groin. DATE OF EXAMINATION: 06/21/2022 INDICATION: Female, 72 years old. Possibly hematoma in the anterior aspect of the right hip. PHYSICIAN: Lopez Barraza M.D. CONSENT: Written informed consent was obtained having explained the risks, benefits and alternatives in detail with the patient who accepted the risks and agreed to proceed. Laboratory review and clinical assessment was performed. CONSCIOUS SEDATION PROTOCOL: The Drugs used were: 2 mg Versed, IV., and 50 mcg Fentanyl, IV. The sedation time was: 23 minutes. Conscious sedation was started at 8:42 AM and terminated at 9:05 AM. The conscious sedation protocol was independently monitored. RADIATION DOSAGE (If Supplied By Facility): CTDIvol = ( 16 ) mGy, DLP = ( 675.09 ) mGycm TECHNIQUE: CT sections were made through the abdomen and pelvis revealing rounded soft tissue density in the right groin. The skin surface was prepped and draped in a sterile fashion. Puncture of this collection was performed initially with a 5 [place] catheter and fluid was aspirated. Drainage catheter was then inserted into the collection and formed into position. Additional fluid was aspirated for a total of approximately 5 cc of cloudy red fluid. Findings are suggestive of a resolving hematoma. The hematoma is organized. CT/CT Guidance Abscess Drg w/Cath IMPRESSION: 1. CT directed drainage of a fluid collection using CT image guidance and image documentation as described. 2. Conscious Sedation protocol utilized with independent monitoring Electronically Signed: Lopez Barraza MD at 9:35 EST ,
[2022-06-21] MEDS: Polyethylene Glycol 3350 17 GM PACKET PO (10:40)
[2022-06-21] MEDS: guaiFENesin 1,200 MG Tablet 1200 MG PO ×2 (10:41→21:14)
[2022-06-21] MEDS: Calcium Acetate 667 MG Capsule 2001 MG PO ×2 (10:41→12:28)
[2022-06-21] MEDS: predniSONE 5 MG Tablet 10 MG PO (10:42)
[2022-06-21] MEDS: APIXABAN 2.5 MG TABLET (WCH) PO ×2 (10:43→21:15)
[2022-06-21] MEDS: Azithromycin 250 MG Tablet 500 MG PO (10:43)
[2022-06-21] MEDS: Midodrine HCl 5 MG Tablet 10 MG PO (10:43)
[2022-06-21] MEDS: DULoxetine Hcl 60 MG Capsule PO (10:43)
[2022-06-21] MEDS: Pantoprazole Sodium 20 MG Tablet PO (10:44)
--- NOTE | 2022-06-21 11:56 | PCM.PN.REN ---
Documented by User: JOE Raman 06/21/22 12:02 Subjective Subjective Resting in bed, no overnight events. States she feels she is breathing better today. Objective Data Objective Data Vital Signs: Vital Signs Temp Pulse Resp BP Pulse Ox O2 Del Method O2 Flow Rate 97.7 F L 80 18 112/48 L 100 Nasal Cannula 2 06/21/22 10:35 06/21/22 11:00 06/21/22 10:35 06/21/22 10:35 06/21/22 10:35 06/21/22 10:36 06/21/22 10:36 FiO2 30 06/21/22 10:35 Oxygen Flow Rate (L/min) [6] 3 Oxygen Flow Rate (L/min) [5] 4 Oxygen Flow Rate (L/min) [4] 4 Oxygen Flow Rate (L/min) [3] 4 Oxygen Flow Rate (L/min) [2] 2 Oxygen Flow Rate (L/min) [1 ( 2 Initial Baseline)] Oxygen Flow Rate (L/min) 2 Oxygen Delivery Method [6] Nasal Cannula Oxygen Delivery Method [5] Nasal Cannula Oxygen Delivery Method [4] Nasal Cannula Oxygen Delivery Method [3] Nasal Cannula Oxygen Delivery Method [2] Nasal Cannula Oxygen Delivery Method [1 ( Nasal Cannula Initial Baseline)] Oxygen Delivery Method Nasal Cannula Weight: 74 kg Body Mass Index (BMI) 24.0 Intake & Output: Intake and Output for Last 24 Hours 06/19/22 06/20/22 06/21/22 23:59 23:59 23:59 Intake Total 630 / 630 530 / 530 135 / 135 Output Total 2680 / 2680 0 / 0 0 / 0 Balance -2049 / -2049 530 / 530 135 / 135 Lab / Micro Data Result Diagrams: 06/21/22 06:00 06/21/22 06:00 Labs: Laboratory Results - last 24 hr 06/21/22 06:00: Sodium 135 L, Potassium 4.7, Chloride 101, Carbon Dioxide 26.0, Anion Gap 8, BUN 55 H, Creatinine 5.88 H, Estim Creat Clear Calc 9.30, Est GFR (MDRD) Af Amer 9 L, Est GFR (MDRD) Non-Af 8 L, BUN/Creatinine Ratio 9.4 L, Glucose 71 L, Calcium 9.0, Phosphorus 3.7, Albumin 2.1 L 06/21/22 06:00: WBC 11.5 H, RBC 2.58 L, Hgb 7.8 L, Hct 28.1 L, MCV 108.9 H D, MCH 30.2, MCHC 27.8 L D, RDW Std Deviation 74.7 H, RDW Coeff of Destiny 18.8 H, Plt Count 165, MPV 9.8, Immature Gran % (Auto) 1.000 H, Neut % (Auto) 81.5 H, Lymph % (Auto) 7.0 L, [place] % (Auto) 9.1, Eos % (Auto) 1.1, Baso % (Auto) 0.3, Absolute Neuts (auto) 9.4 H, Absolute Lymphs (auto) 0.81 L, Nucleated RBC % 1.1, Differential Comment SCANNED, Polychromasia 1+, Anisocytosis 2+, Microcytosis 1+, Macrocytosis 1+, Ovalocytes RARE Micro: Microbiology 06/17/22 10:35 Blood Culture (Wb) - Venous Bacteria Detection (PCR) - Preliminary Strep not Strep pneumo 06/17/22 10:35 Blood Culture (Wb) - Venous Blood Culture - Preliminary Alpha Hemolytic Streptococcus Pseudomonas aeroginosa 06/21/22 09:20 Fluid - Synovial (joint) Gram Stain - Final 06/19/22 20:00 Urine, Random Streptococcus pneumoniae Antigen (M - Final 06/19/22 18:54 Urine, Random Legionella Antigen - Final 06/17/22 06:30 Sputum, Expectorated/Coughed Gram Stain - Final 06/17/22 06:30 Sputum, Expectorated/Coughed Respiratory Culture - Final Pseudomonas aeroginosa 06/17/22 11:07 Mucosa - Nose Respiratory Panel (PCR) - Final Influenza A (Subtype H1) 06/17/22 06:58 Nasal Secretion SARS-CoV-2 & FLU Antigen (Rapid) - Final Radiography Diagnostic Testing: Radiology Impression Lower Extremity CT 06/19/22 10:29 IMPRESSION: Status post right total hip replacement. There is a 6.2 cm x 4.3 cm x 3.8 cm rounded soft tissue density overlying the anterior aspect of the prosthetic hip. This may represent a postoperative hematoma or fluid collection. Electronically Signed: Lopez Barraza MD at 13:10 EST , Abscess Drainage CT 06/21/22 09:00 IMPRESSION: 1. CT directed drainage of a fluid collection using CT image guidance and image documentation as described. 2. Conscious Sedation protocol utilized with independent monitoring Electronically Signed: Lopez Barraza MD at 9:35 EST , Physical Exam Narrative Alert and oriented x3, no apparent distress S1, S2, RRR Lung sounds diminished with inspiratory and expiratory wheezing, coarse cough Abdomen soft, rounded, positive bowel sounds No edema noted bilateral lower legs feet or arms Tunneled HD catheter dressing clean, dry and intact Assessment & Plan Assessment/Plan (1) ESRD (end stage renal disease) on dialysis: (2) Fever: (3) Influenza: (4) HCAP (healthcare-associated pneumonia): (5) Right hip pain: PLAN: Plan Patient was admitted for respiratory insufficiency, she was initially on BiPAP but now is on nasal cannula at 2L, also admitted for pneumonia and tested positive for influenza A. -ESRD; dialyzes Sunday at [facility]. Patient dialyzed Sunday on 2kbath and tolerated almost 3 L fluid removal. Dialysis tomorrow over 3.5 hours and attempt fluid removal as patient/blood pressure tolerates. Possibly will need dry weight lowered by time of hospital discharge. - Anemia of chronic disease and receives iron and ANGELI at the kidney center. We will monitor hemoglobin trends. Hemoglobin 7.8 today. - ID consulted for antibiotic management, preliminary blood culture strep, Pseudomonas aeroginosa, alpha hemolytic Streptococcus. CT showed fluid collection right hip. Right hip synovial fluid aspirate cx pending. Blood cultures obtained from tunneled HD catheter 06/20. She is on antibiotics including cefepime, azithromycin, Tamiflu. - Blood pressures normal to low normal, on multiple antihypertensives. We will stop amlodipine for now. Recommend holding antihypertensives mornings of dialysis. Documented by User: Dr. Soraida Sears MD 06/21/22 15:28 Objective Data Lab / Micro Data Result Diagrams: 06/21/22 06:00 06/21/22 06:00 Assessment & Plan Assessment/Plan (1) ESRD (end stage renal disease) on dialysis: (2) Fever: (3) Influenza: (4) HCAP (healthcare-associated pneumonia): (5) Right hip pain: PLAN: Plan Patient was admitted for respiratory insufficiency, she was initially on BiPAP but now is on nasal cannula at 2L, also admitted for pneumonia and tested positive for influenza A. -ESRD; dialyzes Sunday at [facility]. Patient dialyzed Sunday on 2kbath and tolerated almost 3 L fluid removal. Dialysis tomorrow over 3.5 hours and attempt fluid removal as patient/blood pressure tolerates. Possibly will need dry weight lowered by time of hospital discharge. - Anemia of chronic disease and receives iron and ANGELI at the kidney center. We will monitor hemoglobin trends. Hemoglobin 7.8 today. - ID consulted for antibiotic management, preliminary blood culture strep, Pseudomonas aeroginosa, alpha hemolytic Streptococcus. CT showed fluid collection right hip. Right hip synovial fluid aspirate cx pending. Blood cultures obtained from tunneled HD catheter 06/20. She is on antibiotics including cefepime, azithromycin, Tamiflu. - Blood pressures normal to low normal, on multiple antihypertensives. We will stop amlodipine for now. Recommend holding antihypertensives mornings of dialysis. Attending addendum. Agree with above. Infectious work-up ongoing.
--- NOTE | 2022-06-21 16:34 | PCM.PN.ID ---
Physical Exam Narrative Hip still hurts, no fever Const alert and no apparent distress Resp normal air movement and clear to auscultation bilaterally Cardio regular rate and regular rhythm GI soft to palpation, non-tender and non-distended Skin no rashes or lesions noted ID ID: Route of nutrition/ use of supplements: [] Nutritional Intake: [] IV Site: [] [place] Catheter: [] Assessment & Plan Assessment/Plan (1) HCAP (healthcare-associated pneumonia): (2) Chronic respiratory failure with hypoxia, on home O2 therapy: (3) ESRD (end stage renal disease) on dialysis: (4) Fever: PLAN: Bcx with PsA and strep. Sputum cx with pseudomonas. Flu (+). R hip replacement now with pain and fluid collection seen. Cont tamiflu, vanc/cefepime. Hip still quite pain. Aspiration done, so far showing rbcs. No need for picc; abx can be dosed with HD. Will follow (5) Bacteremia:
--- NOTE | 2022-06-21 18:12 | PN.HOSP_ITS ---
Subjective Subjective Doing well, no issues overnight, still complaining of some hip pain. Objective Data Objective Data Vital Signs: Vital Signs Temp Pulse Resp BP Pulse Ox O2 Del Method O2 Flow Rate 98.2 F 98 18 116/62 95 Nasal Cannula 2 06/21/22 14:56 06/21/22 15:01 06/21/22 14:56 06/21/22 15:01 06/21/22 14:56 06/21/22 14:56 06/21/22 14:56 FiO2 30 06/21/22 14:56 Oxygen Flow Rate (L/min) [6] 3 Oxygen Flow Rate (L/min) [5] 4 Oxygen Flow Rate (L/min) [4] 4 Oxygen Flow Rate (L/min) [3] 4 Oxygen Flow Rate (L/min) [2] 2 Oxygen Flow Rate (L/min) [1 ( 2 Initial Baseline)] Oxygen Flow Rate (L/min) 2 Oxygen Delivery Method [6] Nasal Cannula Oxygen Delivery Method [5] Nasal Cannula Oxygen Delivery Method [4] Nasal Cannula Oxygen Delivery Method [3] Nasal Cannula Oxygen Delivery Method [2] Nasal Cannula Oxygen Delivery Method [1 ( Nasal Cannula Initial Baseline)] Oxygen Delivery Method Nasal Cannula Weight: 163 lb 2.273 oz Body Mass Index (BMI) 24.0 Intake & Output: Intake and Output for Last 24 Hours 06/20/22 06/21/22 06/22/22 03:59 03:59 03:59 Intake Total 630 / 630 530 / 530 185 / 185 Output Total 2660 / 2660 0 / 0 0 / 0 Balance -2029 / -2029 530 / 530 185 / 185 Lab / Micro Data Result Diagrams: 06/21/22 06:00 06/21/22 06:00 Labs: Laboratory Results - last 24 hr 06/21/22 06:00: Sodium 135 L, Potassium 4.7, Chloride 101, Carbon Dioxide 26.0, Anion Gap 8, BUN 55 H, Creatinine 5.88 H, Estim Creat Clear Calc 9.30, Est GFR (MDRD) Af Amer 9 L, Est GFR (MDRD) Non-Af 8 L, BUN/Creatinine Ratio 9.4 L, Glucose 71 L, Calcium 9.0, Phosphorus 3.7, Albumin 2.1 L 06/21/22 06:00: WBC 11.5 H, RBC 2.58 L, Hgb 7.8 L, Hct 28.1 L, MCV 108.9 H D, MCH 30.2, MCHC 27.8 L D, RDW Std Deviation 74.7 H, RDW Coeff of Destiny 18.8 H, Plt Count 165, MPV 9.8, Immature Gran % (Auto) 1.000 H, Neut % (Auto) 81.5 H, Lymph % (Auto) 7.0 L, [place] % (Auto) 9.1, Eos % (Auto) 1.1, Baso % (Auto) 0.3, Absolute Neuts (auto) 9.4 H, Absolute Lymphs (auto) 0.81 L, Nucleated RBC % 1.1, Differential Comment SCANNED, Polychromasia 1+, Anisocytosis 2+, Microcytosis 1+, Macrocytosis 1+, Ovalocytes RARE Micro: Microbiology 06/17/22 10:35 Blood Culture (Wb) - Venous Bacteria Detection (PCR) - Preliminary Strep not Strep pneumo 06/17/22 10:35 Blood Culture (Wb) - Venous Blood Culture - Preliminary Alpha Hemolytic Streptococcus Pseudomonas aeroginosa 06/21/22 09:20 Fluid - Synovial (joint) Gram Stain - Final 06/19/22 20:00 Urine, Random Streptococcus pneumoniae Antigen (M - Final 06/19/22 18:54 Urine, Random Legionella Antigen - Final 06/17/22 06:30 Sputum, Expectorated/Coughed Gram Stain - Final 06/17/22 06:30 Sputum, Expectorated/Coughed Respiratory Culture - Final Pseudomonas aeroginosa 06/17/22 11:07 Mucosa - Nose Respiratory Panel (PCR) - Final Influenza A (Subtype H1) 06/17/22 06:58 Nasal Secretion SARS-CoV-2 & FLU Antigen (Rapid) - Final Radiography Diagnostic Testing: Radiology Impression Lower Extremity CT 06/19/22 10:29 IMPRESSION: Status post right total hip replacement. There is a 6.2 cm x 4.3 cm x 3.8 cm rounded soft tissue density overlying the anterior aspect of the prosthetic hip. This may represent a postoperative hematoma or fluid collection. Electronically Signed: Lopez Barraza MD at 13:10 EST , Abscess Drainage CT 06/21/22 09:00 IMPRESSION: 1. CT directed drainage of a fluid collection using CT image guidance and image documentation as described. 2. Conscious Sedation protocol utilized with independent monitoring Electronically Signed: Lopez Barraza MD at 9:35 EST Reading Location ID and State: [address] [place] [address] , Service support , Physical Exam Narrative General: Alert, Oriented x3, Cooperative, No apparent distress HEENT: Atraumatic, PERRLA, EOMI, Normocephalic Oral: Moist Mucosa Neck: Supple, No JVD Lungs: Diminished, Normal air movement, No rhonchi, No wheeze, No rales Cardiovascular: Regular rate, Regular Rhythm, Normal S1, Normal S2, No murmurs Abdomen: Soft, Non Tender, Non-Distended, No Hepato-splenomegaly Extremities: No edema, Capillary Refill Less than 3 Seconds Skin: No rashes, No breakdown Musculoskeletal: Tenderness to palpation of her right hip Neurological: Cranial nerves II-XII grossly intact, Motor Exam 5/5 strength throughout, Sensory exam intact to light touch and pain Psych/Mental Status: Normal Affect, Appropriate Assessment & Plan Assessment/Plan (1) Bacteremia: (2) HCAP (healthcare-associated pneumonia): (3) Influenza: (4) Right hip pain: PLAN: Plan 1. Alphahemolytic strep and pseudomonal bacteremia with healthcare associated pneumonia secondary to Pseudomonas and influenza A with chronic hypoxic respiratory failure from COPD ? Appreciate infectious disease assistance continue with her antibiotics ? Continue with Tamiflu ? So far her drainage of the fluid collection around her right hip demonstrates red blood cells we will continue to monitor ? Can restart Eliquis after we have definitive negative cultures on the fluid collection ? Proximal and requirements are at baseline we will continue with her home inhalers as well as do not 2. Acute hip pain ? CT-guided aspiration occurred today awaiting cultures so far it appears to be red blood cells ? Depending on evaluation may need to call back to orthopedic surgery versus transfer ? Continue with pain medications as necessary 3. End-stage renal disease with anemia of chronic disease ? Appreciate nephrology's assistance with her dialysis ? Continue with her home medications, including midodrine with dialysis ? We will monitor hemoglobin 4. HTN/HLD/A. fib/chronic diastolic CHF ? Her last echo was in 04/20/2021 with an EF of 55% ? Blood pressures are stable can resume her home blood pressure medications ? Can restart her Eliquis when we have definitive culture results on her fluid collection 5. GERD ? Stable ? Continue with PPI 6. Anxiety/depression/chronic pain possibly neuropathy ? Stable ? We will resume her home medications DVT: Eliquis Charges/Coding Visit Charges Inpatient E&M: 03336 Subs Hosp L2
[2022-06-21] MEDS: Gabapentin 600 MG Tablet PO (20:45)
[2022-06-21] MEDS: Carvedilol 25 MG Tablet PO (21:14)
[2022-06-21] MEDS: Montelukast 10 MG Tablet PO (21:14)
[2022-06-21] MEDS: Mirtazapine 15 MG Tablet 45 MG PO (21:15)
[2022-06-21] MEDS: Oseltamivir Phosphate 30 MG Capsule PO (21:15)
[2022-06-21] MEDS: 0.9% Saline Lock 10 ML Syringe IV (23:50)
[2022-06-21] MEDS: HYDROmorphone 1 MG/ML Syringe IV (23:51)
[2022-06-22] VITALS (21 sets, daily range): BP systolic 97–148; BP diastolic 45–70; PULSE 60–107; RESP 16–28; TEMP 36.4–37.1; O2SAT 96–100
[2022-06-22] MEDS: Ipratropium/Albuterol Sulfate 3 ML AMPUL.NEB INHALATION ×4 (04:00→19:25)
[2022-06-22 05:31] LABS: Absolute Lymphocyte Count 0.87 X10^3/uL (0.83-4.51); Absolute Neutrophil Count 10.5 X10^3/uL (2.0-7.7); Basophil# 0.03 X10^3/uL; Basophil% 0.2 % (0-1); Eosinophil# 0.12 X10^3/uL; Eosinophils% 0.9 % (0-5); Hematocrit 26.8 % (37-47); Hemoglobin 7.6 g/dL (12.0-15.0); Lymphocyte # 0.87 X10^3/ul (0.83-4.51); Lymphocyte % 6.9 % (19-41); Mean Corp Hgb Conc 28.4 g/dL (32-36); Mean Corpuscular Hgb 29.8 pg (27.0-32.0); Mean Corpuscular Volume 105.1 fL (81-99); Mean Platelet Vol. 9.8 fl (6.2-12.0); Monocyte# 1.03 X10^3/uL; Monocyte% 8.1 % (0-10); NRBC Flagged by Analyzer 1.5 % (0-5); Neutrophil % 82.9 % (47-70); POSITIVE MORPHOLOGY YES; Platelet Count 183 K/mm3 (150-450); RBC Distribution Width CV 18.8 % (11.6-14.6); Red Blood Count 2.55 M/mm3 (4.2-5.4); White Blood Count 12.7 K/mm3 (4.4-11.0)
[2022-06-22 05:45] LABS: Differential Indicated SCAN CRITERIA MET
[2022-06-22 05:59] LABS: Anion Gap 6 (5-15); BUN 29 mg/dL (7-18); BUN/Creat Ratio 7.5 RATIO (10-20); Calcium,Total 8.8 mg/dL (8.5-10.1); Chloride 103 mmol/L (98-107); Creatinine, Serum 3.88 mg/dL (0.55-1.02); EST Glomerular Filtration Rate 12 mL/min (>60); Est Glom Filt Rate - Afr Amer 15 mL/min (>60); Glucose 76 mg/dL (74-106); Potassium 4.1 mmol/L (3.5-5.1); Sodium Level 137 mmol/L (136-145)
[2022-06-22 06:06] LABS: Anisocytosis 2+; Differential Comment SCANNED; Macrocytosis 1+; Microcytosis 1+; Polychromasia 1+
[2022-06-22] MEDS: hydrALAZINE 50 MG Tablet 100 MG PO ×2 (06:38→23:21)
[2022-06-22] MEDS: oxyCODONE 5 MG Tablet 10 MG PO ×3 (06:38→18:29)
[2022-06-22] MEDS: Acetaminophen 500 MG Tablet 1000 MG PO ×3 (06:38→23:22)
[2022-06-22] MEDS: Dicyclomine 10 MG Capsule 20 MG PO ×3 (06:39→15:11)
[2022-06-22] MEDS: predniSONE 5 MG Tablet 10 MG PO (08:43)
[2022-06-22] MEDS: Calcium Acetate 667 MG Capsule 2001 MG PO ×3 (08:44→18:27)
--- NOTE | 2022-06-22 09:28 | PN.HOSP_ITS ---
Subjective Subjective Doing well, no issues overnight Objective Data Objective Data Vital Signs: Vital Signs Temp Pulse Resp BP Pulse Ox O2 Del Method O2 Flow Rate 97.8 F 76 20 H 129/63 H 100 Nasal Cannula 2 06/22/22 04:47 06/22/22 07:16 06/22/22 07:16 06/22/22 06:35 06/22/22 07:16 06/22/22 07:16 06/22/22 07:16 FiO2 30 06/21/22 14:56 Oxygen Flow Rate (L/min) [6] 3 Oxygen Flow Rate (L/min) [5] 4 Oxygen Flow Rate (L/min) [4] 4 Oxygen Flow Rate (L/min) [3] 4 Oxygen Flow Rate (L/min) [2] 2 Oxygen Flow Rate (L/min) [1 ( 2 Initial Baseline)] Oxygen Flow Rate (L/min) 2 Oxygen Delivery Method [6] Nasal Cannula Oxygen Delivery Method [5] Nasal Cannula Oxygen Delivery Method [4] Nasal Cannula Oxygen Delivery Method [3] Nasal Cannula Oxygen Delivery Method [2] Nasal Cannula Oxygen Delivery Method [1 ( Nasal Cannula Initial Baseline)] Oxygen Delivery Method Nasal Cannula Weight: 163 lb 2.273 oz Body Mass Index (BMI) 24.0 Intake & Output: Intake and Output for Last 24 Hours 06/21/22 06/22/22 06/23/22 03:59 03:59 03:59 Intake Total 530 / 530 425 / 425 Output Total 0 / 0 0 / 0 0 / 0 Balance 530 / 530 425 / 425 0 / 0 Lab / Micro Data Result Diagrams: 06/22/22 04:30 06/22/22 04:30 Labs: Laboratory Results - last 24 hr 06/22/22 04:30: WBC 12.7 H, RBC 2.55 L, Hgb 7.6 L, Hct 26.8 L, MCV 105.1 H, MCH 29.8, MCHC 28.4 L, RDW Std Deviation 73.0 H, RDW Coeff of Destiny 18.8 H, Plt Count 183, MPV 9.8, Immature Gran % (Auto) 1.000 H, Neut % (Auto) 82.9 H, Lymph % (Auto) 6.9 L, Dickson % (Auto) 8.1, Eos % (Auto) 0.9, Baso % (Auto) 0.2, Absolute Neuts (auto) 10.5 H, Absolute Lymphs (auto) 0.87, Nucleated RBC % 1.5, Differential Comment SCANNED, Polychromasia 1+, Anisocytosis 2+, Microcytosis 1+, Macrocytosis 1+ 06/22/22 04:30: Sodium 137, Potassium 4.1, Chloride 103, Carbon Dioxide 28.0, Anion Gap 6, BUN 29 H, Creatinine 3.88 H, Estim Creat Clear Calc 14.10, Est GFR (MDRD) Af Amer 15 L, Est GFR (MDRD) Non-Af 12 L, BUN/Creatinine Ratio 7.5 L, Glucose 76, Calcium 8.8 Micro: Microbiology 06/17/22 10:35 Blood Culture (Wb) - Venous Bacteria Detection (PCR) - Final Strep not Strep pneumo 06/17/22 10:35 Blood Culture (Wb) - Venous Blood Culture - Final Streptococcus mitis/ oralis Pseudomonas aeroginosa 06/21/22 09:20 Fluid - Synovial (joint) Gram Stain - Final 06/21/22 09:20 Fluid - Synovial (joint) Body Fluid Culture - Preliminary No growth-Final to follow 06/20/22 10:15 Blood Culture (Wb) - Left Hand Blood Culture - Preliminary No growth in 48 hours. 06/17/22 07:05 Blood Culture (Wb) - Left Forearm Blood Culture - Final No growth in 5 days. 06/19/22 20:00 Urine, Random Streptococcus pneumoniae Antigen (M - Final 06/19/22 18:54 Urine, Random Legionella Antigen - Final 06/17/22 06:30 Sputum, Expectorated/Coughed Gram Stain - Final 06/17/22 06:30 Sputum, Expectorated/Coughed Respiratory Culture - Final Pseudomonas aeroginosa 06/17/22 11:07 Mucosa - Nose Respiratory Panel (PCR) - Final Influenza A (Subtype H1) 06/17/22 06:58 Nasal Secretion SARS-CoV-2 & FLU Antigen (Rapid) - Final Radiography Diagnostic Testing: Radiology Impression Abscess Drainage CT 06/21/22 09:00 IMPRESSION: 1. CT directed drainage of a fluid collection using CT image guidance and image documentation as described. 2. Conscious Sedation protocol utilized with independent monitoring Electronically Signed: Lopez Barraza MD at 9:35 EST , Physical Exam Narrative General: Alert, Oriented x3, Cooperative, No apparent distress HEENT: Atraumatic, PERRLA, EOMI, Normocephalic Oral: Moist Mucosa Neck: Supple, No JVD Lungs: Diminished, Normal air movement, No rhonchi, No wheeze, No rales Cardiovascular: Regular rate, Regular Rhythm, Normal S1, Normal S2, No murmurs Abdomen: Soft, Non Tender, Non-Distended, No Hepato-splenomegaly Extremities: No edema, Capillary Refill Less than 3 Seconds Skin: No rashes, No breakdown Musculoskeletal: Tenderness to palpation of her right hip Neurological: Cranial nerves II-XII grossly intact, Motor Exam 5/5 strength throughout, Sensory exam intact to light touch and pain Psych/Mental Status: Normal Affect, Appropriate Assessment & Plan Assessment/Plan (1) Bacteremia: (2) HCAP (healthcare-associated pneumonia): (3) Influenza: (4) Right hip pain: PLAN: Plan 1. Alphahemolytic strep and pseudomonal bacteremia with healthcare associated pneumonia secondary to Pseudomonas and influenza A with chronic hypoxic respiratory failure from COPD ? Appreciate infectious disease assistance continue with her antibiotics, repeat blood cultures are negative ? Continue with Tamiflu ? So far her drainage of the fluid collection around her right hip demonstrates red blood cells we will continue to monitor ? Can restart Eliquis after we have definitive negative cultures on the fluid collection ? Proximal and requirements are at baseline we will continue with her home inhalers as well as do not 2. Acute hip pain ? CT-guided aspiration occurred today awaiting cultures so far it appears to be red blood cells ? Depending on evaluation may need to call back to orthopedic surgery versus transfer ? Continue with pain medications as necessary 3. End-stage renal disease with anemia of chronic disease ? Appreciate nephrology's assistance with her dialysis ? Continue with her home medications, including midodrine with dialysis ? We will monitor hemoglobin 4. HTN/HLD/A. fib/chronic diastolic CHF ? Her last echo was in 04/20/2021 with an EF of 55% ? Blood pressures are stable can resume her home blood pressure medications ? Can restart her Eliquis when we have definitive culture results on her fluid collection 5. GERD ? Stable ? Continue with PPI 6. Anxiety/depression/chronic pain possibly neuropathy ? Stable ? We will resume her home medications DVT: Eliquis Charges/Coding Visit Charges Inpatient E&M: 48286 Subs Hosp L2
[2022-06-22] MEDS: guaiFENesin 10 ML UDC (200MG/10ML) 20 ML PO (10:00)
[2022-06-22] MEDS: Azithromycin 250 MG Tablet 500 MG PO (10:00)
[2022-06-22] MEDS: Polyethylene Glycol 3350 17 GM PACKET PO (10:01)
[2022-06-22] MEDS: Carvedilol 25 MG Tablet PO ×2 (10:01→23:22)
[2022-06-22] MEDS: guaiFENesin 1,200 MG Tablet 1200 MG PO ×2 (10:01→23:22)
[2022-06-22] MEDS: Pantoprazole Sodium 20 MG Tablet PO (10:01)
[2022-06-22] MEDS: APIXABAN 2.5 MG TABLET (WCH) PO ×2 (10:01→23:22)
[2022-06-22] MEDS: DULoxetine Hcl 60 MG Capsule PO (10:01)
--- NOTE | 2022-06-22 10:05 | CASEMGMT ---
Patient may be ready for discharge tomorrow. MARIA GUADALUPE sent updates to Vicky via [employer]. MARIA GUADALUPE also noticed Infectious Disease ordered an IV antibiotic to be given at dialysis. MARIA GUADALUPE spoke with Ramandeep HENDRICKSON from Nephrology and she contacted [facility] to let them know about IV antibiotic at d/c. MARIA GUADALUPE will also see if patient can be discharged to her regular dialysis at the clinic tomorrow instead of at hospital. Evy Paredes EXPLOSIVE OPERATOR FUSE CARLOS
--- NOTE | 2022-06-22 10:56 | PCM.PN.REN ---
Subjective Subjective Resting in bed. No overnight events. Reports feeling better overall. Objective Data Objective Data Vital Signs: Vital Signs Temp Pulse Resp BP Pulse Ox O2 Del Method O2 Flow Rate 98.8 F 75 18 148/53 H 99 Nasal Cannula 3 06/22/22 09:58 06/22/22 09:58 06/22/22 09:58 06/22/22 09:58 06/22/22 09:58 06/22/22 10:00 06/22/22 10:00 FiO2 30 06/21/22 14:56 Oxygen Flow Rate (L/min) [6] 3 Oxygen Flow Rate (L/min) [5] 4 Oxygen Flow Rate (L/min) [4] 4 Oxygen Flow Rate (L/min) [3] 4 Oxygen Flow Rate (L/min) [2] 2 Oxygen Flow Rate (L/min) [1 ( 2 Initial Baseline)] Oxygen Flow Rate (L/min) 3 Oxygen Delivery Method [6] Nasal Cannula Oxygen Delivery Method [5] Nasal Cannula Oxygen Delivery Method [4] Nasal Cannula Oxygen Delivery Method [3] Nasal Cannula Oxygen Delivery Method [2] Nasal Cannula Oxygen Delivery Method [1 ( Nasal Cannula Initial Baseline)] Oxygen Delivery Method Nasal Cannula Weight: 74 kg Body Mass Index (BMI) 24.0 Intake & Output: Intake and Output for Last 24 Hours 06/20/22 06/21/22 06/22/22 23:59 23:59 23:59 Intake Total 530 / 530 425 / 425 Output Total 0 / 0 0 / 0 0 / 0 Balance 530 / 530 425 / 425 0 / 0 Lab / Micro Data Result Diagrams: 06/22/22 04:30 06/22/22 04:30 Labs: Laboratory Results - last 24 hr 06/22/22 04:30: WBC 12.7 H, RBC 2.55 L, Hgb 7.6 L, Hct 26.8 L, MCV 105.1 H, MCH 29.8, MCHC 28.4 L, RDW Std Deviation 73.0 H, RDW Coeff of Destiny 18.8 H, Plt Count 183, MPV 9.8, Immature Gran % (Auto) 1.000 H, Neut % (Auto) 82.9 H, Lymph % (Auto) 6.9 L, Gonzales % (Auto) 8.1, Eos % (Auto) 0.9, Baso % (Auto) 0.2, Absolute Neuts (auto) 10.5 H, Absolute Lymphs (auto) 0.87, Nucleated RBC % 1.5, Differential Comment SCANNED, Polychromasia 1+, Anisocytosis 2+, Microcytosis 1+, Macrocytosis 1+ 06/22/22 04:30: Sodium 137, Potassium 4.1, Chloride 103, Carbon Dioxide 28.0, Anion Gap 6, BUN 29 H, Creatinine 3.88 H, Estim Creat Clear Calc 14.10, Est GFR (MDRD) Af Amer 15 L, Est GFR (MDRD) Non-Af 12 L, BUN/Creatinine Ratio 7.5 L, Glucose 76, Calcium 8.8 Micro: Microbiology 06/17/22 10:35 Blood Culture (Wb) - Venous Bacteria Detection (PCR) - Final Strep not Strep pneumo 06/17/22 10:35 Blood Culture (Wb) - Venous Blood Culture - Final Streptococcus mitis/ oralis Pseudomonas aeroginosa 06/21/22 09:20 Fluid - Synovial (joint) Gram Stain - Final 06/21/22 09:20 Fluid - Synovial (joint) Body Fluid Culture - Preliminary No growth-Final to follow 06/20/22 10:15 Blood Culture (Wb) - Left Hand Blood Culture - Preliminary No growth in 48 hours. 06/17/22 07:05 Blood Culture (Wb) - Left Forearm Blood Culture - Final No growth in 5 days. 06/19/22 20:00 Urine, Random Streptococcus pneumoniae Antigen (M - Final 06/19/22 18:54 Urine, Random Legionella Antigen - Final 06/17/22 06:30 Sputum, Expectorated/Coughed Gram Stain - Final 06/17/22 06:30 Sputum, Expectorated/Coughed Respiratory Culture - Final Pseudomonas aeroginosa 06/17/22 11:07 Mucosa - Nose Respiratory Panel (PCR) - Final Influenza A (Subtype H1) 06/17/22 06:58 Nasal Secretion SARS-CoV-2 & FLU Antigen (Rapid) - Final Physical Exam Narrative Alert and oriented x3, no apparent distress S1, S2, RRR Lung sounds diminished with expiratory wheezing, coarse cough Abdomen soft, rounded, positive bowel sounds No edema noted bilateral lower legs feet or arms Tunneled HD catheter dressing clean, dry and intact Assessment & Plan Assessment/Plan (1) ESRD (end stage renal disease) on dialysis: (2) Fever: (3) Influenza: (4) HCAP (healthcare-associated pneumonia): (5) Right hip pain: PLAN: Plan Patient was admitted for respiratory insufficiency, she was initially on BiPAP but now is on nasal cannula at 2L, also admitted for pneumonia and tested positive for influenza A. -ESRD; dialyzes Sunday at [facility]. Tolerated dialysis yesterday with around 2 L UF. No acute indication for CROSS ENTERPRISE INTEGRATOR today. Next dialysis tomorrow over 3.5 hours and attempt fluid removal as patient/blood pressure tolerates. Possibly will need dry weight lowered by time of hospital discharge. - Anemia of chronic disease and receives iron and ANGELI at the kidney center. We will monitor hemoglobin trends. - ID consulted for antibiotic management, preliminary blood culture strep, Pseudomonas aeroginosa, alpha hemolytic Streptococcus. CT showed fluid collection right hip. Right hip synovial fluid aspirate cx pending. Blood cultures obtained from tunneled HD catheter 06/20. She is on antibiotics including cefepime, azithromycin, Tamiflu. -Per ID recommendation, will arrange for cefepime 2 g post HD times total of 3 doses. - Blood pressures were normal to low normal but improved off amlodipine. Recommend holding antihypertensives mornings of dialysis. -Discussed plan with discharge planning team
--- NOTE | 2022-06-22 11:17 | PCM.PN.ID ---
Physical Exam Narrative Feeling better, hip less sore, no fever Const alert and no apparent distress Resp normal air movement and clear to auscultation bilaterally Cardio regular rate and regular rhythm GI soft to palpation, non-tender and non-distended Extremity General Extremity: Negative for edema Skin no rashes or lesions noted ID ID: Route of nutrition/ use of supplements: [] Nutritional Intake: [] IV Site: [] [place] Catheter: [] Assessment & Plan Assessment/Plan (1) HCAP (healthcare-associated pneumonia): (2) Chronic respiratory failure with hypoxia, on home O2 therapy: (3) ESRD (end stage renal disease) on dialysis: (4) Fever: PLAN: Bcx with PsA and strep. Sputum cx with pseudomonas. Flu (+). R hip replacement now with pain and fluid collection seen. Cont tamiflu, vanc/cefepime. Hip with less pain. Aspiration done, so far showing rbcs. No need for picc; abx can be dosed with HD; will write for one more week cefepime 2gm qMWF HD. Repeat bcx remain neg so far. Will follow (5) Bacteremia:
[2022-06-22] MEDS: 0.9% Saline Lock 10 ML Syringe IV ×3 (12:41→23:23)
[2022-06-22] MEDS: HYDROmorphone 1 MG/ML Syringe IV ×2 (12:41→23:23)
--- NOTE | 2022-06-22 14:45 | CASEMGMT ---
Patient normally uses [facility] to transport her back and forth to dialysis. SW called [facility] and asked if they would be able to fish bait picker patient at [facility] and take her to dialysis. They would be able to do this as long as patient is ready to go by 1030a. They need to know by the end of the day today. MARIA GUADALUPE sent physician a message inquiring if this is a possibility. Evy Paredes ASSISTANT TENNIS COACH CARLOS
[2022-06-22] MEDS: Menthol/Lanolin/Calamine/Znox 113 GM Tube 1 APPLIC TOPICAL ×2 (15:11→23:22)
--- NOTE | 2022-06-22 15:33 | CASEMGMT ---
MARIA GUADALUPE was able to arrange for patient to be discharged to her regular dialysis appointment tomorrow at 11:20a. [facility] can transport patient as they normally do. They will pick patient up at 10:30a at the main entrance. Cori is calling her son to being in clothes and a portable O2 tank for her. [facility] does not supply O2. However, should patient's son not bring in the O2 MARIA GUADALUPE did talk with Michelle, Riding Instructor on PCU and one of [facility]'s tanks could be utilized as long as [facility] returns it by 06-27. MARIA GUADALUPE did talk with Patricia at [facility] and she said they can return the tank on Sunday. Patricia asked that the sprinkler truck driver be given a note that they will give to her to remind her the O2 tank needs to be returned. MARIA GUADALUPE will do this. RN is aware patient needs a COVID test. RN and supervisor in charge are both aware patient needs to be at the main entrance at 1030a. SW also updated them on the O2 situation. Physician is also aware patient's discharge information needs to be in prior to 1030a. Vicky and patient were also notified of this plan. MARIA GUADALUPE called [facility] and spoke with Yadira letting her know patient will be there in the am for her regular dialysis appt. Plan: d/c to [facility] in [place] for patient's regular dialysis appt. [facility] will transport. [facility] will sweet pickled fruit maker patient at 1030 at the main entrance. Patient was going to see if her son could bring in portable O2 for her. However, if he does not MARIA GUADALUPE has been given permission to allow [facility] to use one of [facility]'s O2 tanks as long as [facility] returns it on 06-27. Evy GONZALEZ
--- NOTE | 2022-06-22 16:29 | CASEMGMT ---
MARIA GUADALUPE did talk with patient's son Jose. Jose said he would try and bring in an O2 tank by 1030 tomorrow. Evy GONZALEZ
[2022-06-22] MEDS: Gabapentin 300 MG Capsule PO (18:27)
[2022-06-22] MEDS: Lactulose 20 GM/30 ML UDC PO (23:21)
[2022-06-22] MEDS: Montelukast 10 MG Tablet PO (23:22)
[2022-06-22] MEDS: Mirtazapine 15 MG Tablet 45 MG PO (23:24)
[2022-06-23] VITALS (9 sets, daily range): BP systolic 107–126; BP diastolic 49–69; PULSE 63–88; RESP 12–18; TEMP 36.3–37.1; O2SAT 97–100
[2022-06-23] MEDS: Ipratropium/Albuterol Sulfate 3 ML AMPUL.NEB INHALATION (01:27)
[2022-06-23] MEDS: Dicyclomine 10 MG Capsule 20 MG PO ×2 (06:37→10:02)
[2022-06-23] MEDS: hydrALAZINE 50 MG Tablet 100 MG PO (06:38)
[2022-06-23] MEDS: oxyCODONE 5 MG Tablet 10 MG PO (06:38)
[2022-06-23] MEDS: Acetaminophen 500 MG Tablet 1000 MG PO (06:38)
--- NOTE | 2022-06-23 07:41 | TREXTCAR_ITS ---
Diet Diet Order/Speech Therapy: 06/20/22 09:23 Diet: Renal - ConsCHO - Nas Cont Type of Dietary Supplement:: Nepro Is pt able to select menu?: Yes Fluid restriction:: 1500 mL Diet Comments: 120 ml matos nepro TID w/ meals How many daily calories?: 2000 calorie Routine Orders/Code Status Routine Lab Work: CBC and BMP Code Status: Full Code Wound(s) Right hip: Wound Type: Puncture Therapies Physical Therapy: Eval and Treat Occupational Therapy: Eval and Treat Problem/Diagnosis (1) HCAP (healthcare-associated pneumonia): Status: Acute Code(s): J18.9 - Pneumonia, unspecified organism (2) Chronic respiratory failure with hypoxia, on home O2 therapy: Status: Resolved Code(s): J96.11 - Chronic respiratory failure with hypoxia; Z99.81 - Dependence on supplemental oxygen (3) ESRD (end stage renal disease) on dialysis: Status: Inactive Code(s): N18.6 - End stage renal disease; Z99.2 - Dependence on renal dialysis (4) Fever: Status: Resolved Code(s): R50.9 - Fever, unspecified (5) Bacteremia: Status: Acute Code(s): R78.81 - Bacteremia Plan 1. Alphahemolytic strep and pseudomonal bacteremia with healthcare associated pneumonia secondary to Pseudomonas and influenza A with chronic hypoxic re spiratory failure from COPD ? Appreciate infectious disease assistance continue with her antibiotics, repeat blood cultures are negative ? Continue with Tamiflu ? So far her drainage of the fluid collection around her right hip demonstrates red blood cells we will continue to monitor ? Can restart Eliquis after we have definitive negative cultures on the fluid collection ? Proximal and requirements are at baseline we will continue with her home inhalers as well as do not 2. Acute hip pain ? CT-guided aspiration occurred today awaiting cultures so far it appears to be red blood cells ? Depending on evaluation may need to call back to orthopedic surgery versus transfer ? Continue with pain medications as necessary 3. End-stage renal disease with anemia of chronic disease ? Appreciate nephrology's assistance with her dialysis ? Continue with her home medications, including midodrine with dialysis ? We will monitor hemoglobin 4. HTN/HLD/A. fib/chronic diastolic CHF ? Her last echo was in 04/20/2021 with an EF of 55% ? Blood pressures are stable can resume her home blood pressure medications ? Can restart her Eliquis when we have definitive culture results on her fluid collection 5. GERD ? Stable ? Continue with PPI 6. Anxiety/depression/chronic pain possibly neuropathy ? Stable ? We will resume her home medications DVT: Eliquis Allergies/Procedures Done in Hospital Allergies No Known Allergies Allergy (Verified 06/17/22 05:57) Procedures: None Type of Care/Length of Stay Estimated LOS: Convalescent Care Less Than 30 days Type of Care Needed: Skilled Rehab Potential: Good Prognosis: Good Additional Orders/Day of Discharge Day of Discharge: 06/23/22 Dietary and Speech Recommendations Dietitian Recommendations/Changes: renal, consistent CHO, 2000 calorie controlled diet w/ 120mL nepro TID; fluid restriction if indicated. Discharge Plan Admission Admit Date/Time: 06/17/22 08:52 Attending Provider: Sixto Montoya Primary Care Provider: Nehemiah Colmenares Consulting Providers: Brian Kinney ; Donte Baird ; Brittani Byrne ; Cailin Nichols Instructions Patient Instructions: Bimal Santo Drain Tube Dc, RAD RN Abscess Drainage, RAD RN Procedural Sedation Discharge Orders/Prescriptions Prescriptions: New cefepime 2 gram recon soln 2 g IV .see below 7 Days Qty: 3 0RF Rx Instructions: 2gm cefepime to be given with dialysis MWF dx: bacteremia Continued hydralazine 100 MG tablet 100 mg PO TID amlodipine 10 mg Tablet 10 mg PO DAILY calcium acetate(phosphat bind) 667 mg Capsule 2,001 mg PO TIDCM mirtazapine 45 mg Tablet 45 mg PO QHS Eliquis 2.5 mg Tablet 2.5 mg PO BID dicyclomine 20 mg tablet 20 mg PO TID Label Comments: Take 1 tablet by mouth three times daily before meals. gabapentin 600 mg tablet 600 mg PO MOWEFR Label Comments: 1 TABLET BY MOUTH EVERY (3P-6P AFTER DIALYSIS) DX: gabapentin 300 mg capsule 300 mg PO SUTUTHSA Label Comments: 1 CAPSULE BY MOUTH DOSBRIV-OF-BK-SU (3P-6P) DX:E omeprazole 20 mg capsule,delayed release(DR/EC) 20 mg PO DAILY Label Comments: 1 CAPSULE BY MOUTH ONCECDAILY DX: / NURSE TO REORDER RenaPlex-D 800 mcg-12.5 mg -2,000 unit tablet 1 tab PO MOWEFR Label Comments: TAKE 1 TABLET BY MOUTH EVERY DAY (ON DIALYSIS DAYS, TAKE AFTER DIALYSIS TREATMENT) montelukast [Singulair] 10 mg Tablet 10 mg PO QHS lactulose 10 gram/15 mL Solution 30 ml PO QHS PRN (Reason: Constipation) carvedilol 25 mg Tablet 25 mg PO BID Qty: 0 0RF midodrine 10 mg tablet 10 mg PO MOWEFR prednisone 5 mg tablet 5 mg PO DAILY Hold Instructions: Restart once taper is completed fluticasone propion-salmeterol [Advair Diskus] 500-50 mcg/dose Blister With Device 1 inh INHALATION BID Spiriva Respimat 2.5 mcg/actuation Mist 2 puff INHALATION DAILY duloxetine 60 mg capsule,delayed release(DR/EC) 60 mg PO DAILY polyethylene glycol 3350 [Miralax] 17 gram/dose powder 17 g PO DAILY ipratropium-albuterol 0.5 mg-3 mg(2.5 mg base)/3 mL Solution For Nebulization 3 ml inhalation Q4H.RT PRN (Reason: shortness of breath or wheezing) Qty: 180 1RF albuterol sulfate 2.5 mg /3 mL (0.083 %) Solution For Nebulization 2.5 mg inhalation Q2H PRN PRN (Reason: SOB/Wheezing) 30 Days Qty: 90 1RF albuterol sulfate 90 mcg/actuation HFA aerosol inhaler 2 puff inhalation Q6H PRN (Reason: shortness of breath or wheezing) Qty: 8.5 2RF acetaminophen [Tylenol] 325 mg Tablet 650 mg PO Q6H PRN PRN (Reason: Pain 1-10 Or Fever >100.7) Qty: 0 0RF sennosides-docusate sodium [Stool Softener-Stimulant Laxat] 8.6-50 mg Tablet 2 tab PO BID PRN PRN (Reason: Constipation) Qty: 0 0RF Mucus Relief ER 1,200 mg Tablet Extended Release 12hr 1,200 mg PO BID Qty: 14 0RF oxycodone 10 mg Tablet 10 mg PO BID PRN (Reason: Breakthrough Pain) 3 Days Qty: 6 0RF Referrals / Follow Up: Nehemiah Colmenares [Primary Care Provider] - Within 1 Week Disposition Disposition (needs filled in before D/C Order can be placed): [facility]
--- NOTE | 2022-06-23 09:06 | CASEMGMT ---
SW sent orders and COVID test to [facility] and let them know Cori will return to them after her regularly scheduled dialysis today. MARIA GUADALUPE wrote a note to Patricia at [facility] reminding her to please return [facility]'s O2 tank to [facility] on Sunday06-27-22 as we discussed on 06-22-22 by phone. MARIA GUADALUPE placed this in an envelope and wrote for [facility] car driver to give to Patricia at [facility]. Plan: d/c back to [facility] under skilled level of care. Patient was transported to [facility] for her regularly scheduled dialysis appt by [facility] and they will transport her to [facility]. They normally transport her to and from her dialysis. Evy GONZALEZ
[2022-06-23] MEDS: Carvedilol 25 MG Tablet PO (09:09)
[2022-06-23] MEDS: Azithromycin 250 MG Tablet 500 MG PO (09:09)
[2022-06-23] MEDS: Polyethylene Glycol 3350 17 GM PACKET PO (09:09)
[2022-06-23] MEDS: APIXABAN 2.5 MG TABLET (WCH) PO (09:09)
[2022-06-23] MEDS: guaiFENesin 1,200 MG Tablet 1200 MG PO (09:09)
[2022-06-23] MEDS: Pantoprazole Sodium 20 MG Tablet PO (09:09)
[2022-06-23] MEDS: Midodrine HCl 5 MG Tablet 10 MG PO (09:10)
[2022-06-23] MEDS: predniSONE 5 MG Tablet 10 MG PO (09:25)
[2022-06-23] MEDS: Calcium Acetate 667 MG Capsule 2001 MG PO (10:03)
[2022-06-23] MEDS: DULoxetine Hcl 60 MG Capsule PO (10:03)
--- NOTE | 2022-06-23 12:06 | NURSING ---
Report called to Vicky to nurse Milan.
--- NOTE | 2022-06-23 12:26 | PCM.DC.SUM ---
Providers Date of Admission: 06/17/22 Primary Care Physician: Nehemiah Colmenares Consultations 06/19/22 09:30 Consult: Nephrology Routine Consulting Provider: Brittani Byrne Reason for Consult: dialysis EMERGENT Consult: No Notified: Yes Date Notified: 06/19/22 Time Notified: 09:30 Method of Notification: Answering Service 06/19/22 13:27 Consult: Infectious Disease Routine Consulting Provider: Donte Baird Reason for Consult: polymicrobial bacteremia EMERGENT Consult: No Notified: Yes Date Notified: 06/19/22 Time Notified: 13:27 Method of Notification: Verbal Reason For Visit: FEVER Diagnosis Discharge Diagnosis (1) HCAP (healthcare-associated pneumonia): Status: Acute Code(s): J18.9 - Pneumonia, unspecified organism (2) Chronic respiratory failure with hypoxia, on home O2 therapy: Status: Resolved Code(s): J96.11 - Chronic respiratory failure with hypoxia; Z99.81 - Dependence on supplemental oxygen (3) ESRD (end stage renal disease) on dialysis: Status: Inactive Code(s): N18.6 - End stage renal disease; Z99.2 - Dependence on renal dialysis (4) Fever: Status: Resolved Code(s): R50.9 - Fever, unspecified (5) Bacteremia: Status: Acute Code(s): R78.81 - Bacteremia Plan 1. Alphahemolytic strep and pseudomonal bacteremia with healthcare associated pneumonia secondary to Pseudomonas and influenza A with chronic hypoxic respiratory failure from COPD ? Appreciate infectious disease assistance continue with her antibiotics, repeat blood cultures are negative ? Continue with Tamiflu ? So far her drainage of the fluid collection around her right hip demonstrates red blood cells we will continue to monitor ? Can restart Eliquis after we have definitive negative cultures on the fluid collection ? Proximal and requirements are at baseline we will continue with her home inhalers as well as do not 2. Acute hip pain ? CT-guided aspiration occurred today awaiting cultures so far it appears to be red blood cells ? Depending on evaluation may need to call back to orthopedic surgery versus transfer ? Continue with pain medications as necessary 3. End-stage renal disease with anemia of chronic disease ? Appreciate nephrology's assistance with her dialysis ? Continue with her home medications, including midodrine with dialysis ? We will monitor hemoglobin 4. HTN/HLD/A. fib/chronic diastolic CHF ? Her last echo was in 04/20/2021 with an EF of 55% ? Blood pressures are stable can resume her home blood pressure medications ? Can restart her Eliquis when we have definitive culture results on her fluid collection 5. GERD ? Stable ? Continue with PPI 6. Anxiety/depression/chronic pain possibly neuropathy ? Stable ? We will resume her home medications DVT: Eliquis Medications at Discharge Home Medications hydralazine 100 mg tablet 100 mg PO TID BLOOD PRESSURE 03/31/20 amlodipine 10 mg tablet 10 mg PO DAILY blood pressure 11/30/20 calcium acetate(phosphat bind) 667 mg capsule 2,001 mg PO TIDCM health maintenance 11/30/20 apixaban 2.5 mg tablet (Eliquis) 2.5 mg PO BID anticoagulant 01/08/21 mirtazapine 45 mg tablet 45 mg PO QHS INSOMNIA 01/08/21 dicyclomine 20 mg tablet 20 mg PO TID 02/26/21 gabapentin 300 mg capsule 300 mg PO SUTUTHSA NERVE PAIN 10/05/21 gabapentin 600 mg tablet 600 mg PO MOWEFR NERVE PAIN 10/05/21 omeprazole 20 mg capsule,delayed release 20 mg PO DAILY GERD 10/05/21 vit B,C-folic ac 800 mcg-zinc 12.5 mg-selen-D3 2,000 unit-vit E tablet (RenaPlex-D) 1 tab PO MOWEFR DIALYSIS 10/05/21 lactulose 10 gram/15 mL oral solution 30 ml PO QHS PRN Constipation 10/25/21 montelukast 10 mg tablet (Singulair) 10 mg PO QHS ALLERGIES 10/25/21 carvedilol 25 mg tablet 25 mg PO BID #0 tabs 12/21/21 midodrine 10 mg tablet 10 mg PO MOWEFR 02/23/22 prednisone 5 mg tablet 5 mg PO DAILY STEROID 02/23/22 duloxetine 60 mg capsule,delayed release 60 mg PO DAILY DEPRESSION 05/19/22 fluticasone 500 mcg-salmeterol 50 mcg/dose blistr powdr for inhalation (Advair Diskus) 1 inh inhalation BID 05/19/22 polyethylene glycol 3350 17 gram/dose oral powder (Miralax) 17 g PO DAILY CONSTIPATION 05/19/22 tiotropium bromide 2.5 mcg/actuation mist for inhalation (Spiriva Respimat) 2 puff inhalation DAILY 05/19/22 albuterol sulfate 2.5 mg/3 mL (0.083 %) solution for nebulization 2.5 mg (3 mL) inhalation Q2H PRN PRN SOB/Wheezing 30 days #90 mL 05/20/22 ipratropium 0.5 mg-albuterol 3 mg (2.5 mg base)/3 mL nebulization soln 3 ml inhalation Q4H.RT PRN shortness of breath or wheezing #180 mL 05/20/22 albuterol sulfate 90 mcg/actuation aerosol inhaler 2 puff inhalation Q6H PRN shortness of breath or wheezing #8.5 grams 06/09/22 acetaminophen 325 mg tablet (Tylenol) 650 mg PO Q6H PRN PRN Pain 1-10 Or Fever >100.7 #0 tabs 06/13/22 guaifenesin 1,200 mg tablet, extended release 12 hr (Mucus Relief ER) 1,200 mg PO BID #14 tabs 06/13/22 sennosides 8.6 mg-docusate sodium 50 mg tablet (Stool Softener-Stimulant Laxative) 2 tab PO BID PRN PRN Constipation #0 tabs 06/13/22 cefepime 2 gram solution for injection 2 g IV .see below 7 days #3 ea 06/22/22 oxycodone 10 mg tablet 10 mg PO BID PRN Breakthrough Pain 3 days #6 tabs 06/23/22 Hospital Course Operations None Procedures None Summary of Care Provided Minutes Spent on Discharge: 40 Hospital Course: Per HPI: ALEC GUTIERREZ, is a 72 F with multiple comorbidities including paroxysmal atrial fibrillation on Eliquis, end-stage renal disease on hemodialysis diabetes mellitus type 2, essential hypertension dyslipidemia osteoarthritis chronic hypoxic respiratory failure secondary to COPD/asthma on home oxygen who presented with?shortness of breath.? Patient had recently been discharged from the hospital on 06/13/2022 following admission for COPD with acute exacerbation.? Patient was [facility]? Patient subsequently developed persistent cough which was productive of bloody sputum.? Was also found to have worsening oxygen saturation levels subsequently brought to the emergency department, imaging studies obtained in the ED did showNew airspace opacification left upper and right lower lobes consistent with pneumonia.? Patient was also found to be significantly dyspneic at rest with hypoxia placed on BiPAP and admitted to a monitored bed for further management Hospital Course: 1. Alphahemolytic strep and pseudomonal bacteremia with healthcare associated pneumonia secondary to Pseudomonas and influenza A with chronic hypoxic respiratory failure from COPD?72-year-old female presented to the hospital with shortness of breath. This was found to be secondary to pseudomonal pneumonia as well as influenza A. She did have 1 blood culture come back positive with Pseudomonas and alphahemolytic strep. Infectious disease was consulted and recommends finishing a course of cefepime with dialysis for the next week. She feels much better today than when she came in, I did asked with her the for discharge today back to the SNF and she expressed benefits of going and would like to go today. She will get dialysis at her usual location today. 2. Acute hip pain?CT-guided aspiration occurred which has simply shown red blood cells, it looks to have been traumatic and there is no fracture. 3. End-stage renal disease with anemia of chronic disease, hypertension, hyperlipidemia, A. fib, chronic diastolic CHF, GERD, anxiety, depression, chronic pain with possible neuropathy are all chronic medical conditions which complicate her care. Her home medications were continued where appropriate Physical Exam Narrative General: Alert, Oriented x3, Cooperative, No apparent distress HEENT: Atraumatic, PERRLA, EOMI, Normocephalic Oral: Moist Mucosa Neck: Supple, No JVD Lungs: Diminished, Normal air movement, No rhonchi, No wheeze, No rales Cardiovascular: Regular rate, Regular Rhythm, Normal S1, Normal S2, No murmurs Abdomen: Soft, Non Tender, Non-Distended, No Hepato-splenomegaly Extremities: No edema, Capillary Refill Less than 3 Seconds Skin: No rashes, No breakdown Musculoskeletal: Tenderness to palpation of her right hip Neurological: Cranial nerves II-XII grossly intact, Motor Exam 5/5 strength throughout, Sensory exam intact to light touch and pain Psych/Mental Status: Normal Affect, Appropriate Weight / BMI Weight Weight: 163 lb 2.273 oz Body Mass Index (BMI) 24.0 ABG / Lab / Microbiology Data Result Diagrams: 06/22/22 04:30 06/22/22 04:30 Microbiology: Microbiology 06/21/22 09:20 Fluid - Synovial (joint) Gram Stain - Final 06/21/22 09:20 Fluid - Synovial (joint) Body Fluid Culture - Preliminary No growth-Final to follow 06/21/22 09:20 Fluid - Synovial (joint) Anaerobic Culture - Preliminary No growth in 48 hours. 06/20/22 16:15 Blood Culture (Wb) - Dialysis/Fistula Blood Culture - Preliminary No growth in 48 hours. 06/22/22 19:00 Nasal Secretion SARS-CoV-2 Antigen (Rapid) - Final 06/17/22 10:35 Blood Culture (Wb) - Left Hand Blood Culture - Final No growth in 5 days. 06/17/22 10:35 Blood Culture (Wb) - Venous Bacteria Detection (PCR) - Final Strep not Strep pneumo 06/17/22 10:35 Blood Culture (Wb) - Venous Blood Culture - Final Streptococcus mitis/ oralis Pseudomonas aeroginosa 06/20/22 10:15 Blood Culture (Wb) - Left Hand Blood Culture - Preliminary No growth in 48 hours. 06/17/22 07:05 Blood Culture (Wb) - Left Forearm Blood Culture - Final No growth in 5 days. 06/19/22 20:00 Urine, Random Streptococcus pneumoniae Antigen (M - Final 06/19/22 18:54 Urine, Random Legionella Antigen - Final 06/17/22 06:30 Sputum, Expectorated/Coughed Gram Stain - Final 06/17/22 06:30 Sputum, Expectorated/Coughed Respiratory Culture - Final Pseudomonas aeroginosa 06/17/22 11:07 Mucosa - Nose Respiratory Panel (PCR) - Final Influenza A (Subtype H1) 06/17/22 06:58 Nasal Secretion SARS-CoV-2 & FLU Antigen (Rapid) - Final Meaningful Use Info Meaningful Use Diagnoses (Choose all that apply): None applicable Discharge Plan Admission Admit Date/Time: 06/17/22 08:52 Attending Provider: Sixto Montoya Primary Care Provider: Nehemiah Colmenares Consulting Providers: Brian Kinney ; Donte Baird ; Brittani Byrne ; Cailin Nichols Instructions Patient Instructions: Bimal Santo Drain Tube Dc, RAD RN Abscess Drainage, RAD RN Procedural Sedation Discharge Orders/Prescriptions Prescriptions: New cefepime 2 gram recon soln 2 g IV .see below 7 Days Qty: 3 0RF Rx Instructions: 2gm cefepime to be given with dialysis MWF dx: bacteremia Continued hydralazine 100 MG tablet 100 mg PO TID amlodipine 10 mg Tablet 10 mg PO DAILY calcium acetate(phosphat bind) 667 mg Capsule 2,001 mg PO TIDCM mirtazapine 45 mg Tablet 45 mg PO QHS Eliquis 2.5 mg Tablet 2.5 mg PO BID dicyclomine 20 mg tablet 20 mg PO TID Label Comments: Take 1 tablet by mouth three times daily before meals. gabapentin 600 mg tablet 600 mg PO MOWEFR Label Comments: 1 TABLET BY MOUTH (3P-6P AFTER DIALYSIS) DX: gabapentin 300 mg capsule 300 mg PO SUTUTHSA Label Comments: 1 CAPSULE BY MOUTH (3P-6P) DX:E omeprazole 20 mg capsule,delayed release(DR/EC) 20 mg PO DAILY Label Comments: 1 CAPSULE BY MOUTH ONCECDAILY DX: / NURSE TO REORDER RenaPlex-D 800 mcg-12.5 mg -2,000 unit tablet 1 tab PO MOWEFR Label Comments: TAKE 1 TABLET BY MOUTH EVERY DAY (ON DIALYSIS DAYS, TAKE AFTER DIALYSIS TREATMENT) montelukast [Singulair] 10 mg Tablet 10 mg PO QHS lactulose 10 gram/15 mL Solution 30 ml PO QHS PRN (Reason: Constipation) carvedilol 25 mg Tablet 25 mg PO BID Qty: 0 0RF midodrine 10 mg tablet 10 mg PO MOWEFR prednisone 5 mg tablet 5 mg PO DAILY Hold Instructions: Restart once taper is completed fluticasone propion-salmeterol [Advair Diskus] 500-50 mcg/dose Blister With Device 1 inh INHALATION BID Spiriva Respimat 2.5 mcg/actuation Mist 2 puff INHALATION DAILY duloxetine 60 mg capsule,delayed release(DR/EC) 60 mg PO DAILY polyethylene glycol 3350 [Miralax] 17 gram/dose powder 17 g PO DAILY ipratropium-albuterol 0.5 mg-3 mg(2.5 mg base)/3 mL Solution For Nebulization 3 ml inhalation Q4H.RT PRN (Reason: shortness of breath or wheezing) Qty: 180 1RF albuterol sulfate 2.5 mg /3 mL (0.083 %) Solution For Nebulization 2.5 mg inhalation Q2H PRN PRN (Reason: SOB/Wheezing) 30 Days Qty: 90 1RF albuterol sulfate 90 mcg/actuation HFA aerosol inhaler 2 puff inhalation Q6H PRN (Reason: shortness of breath or wheezing) Qty: 8.5 2RF acetaminophen [Tylenol] 325 mg Tablet 650 mg PO Q6H PRN PRN (Reason: Pain 1-10 Or Fever >100.7) Qty: 0 0RF sennosides-docusate sodium [Stool Softener-Stimulant Laxat] 8.6-50 mg Tablet 2 tab PO BID PRN PRN (Reason: Constipation) Qty: 0 0RF Mucus Relief ER 1,200 mg Tablet Extended Release 12hr 1,200 mg PO BID Qty: 14 0RF oxycodone 10 mg Tablet 10 mg PO BID PRN (Reason: Breakthrough Pain) 3 Days Qty: 6 0RF Referrals / Follow Up: Nehemiah Colmenares [Primary Care Provider] - Within 1 Week Disposition Disposition (needs filled in before D/C Order can be placed): Half-Way Facility Charges/Coding Visit Charges Inpatient E&M: 53033 Disch Hosp
== END 2022-06-23 10:17 | disposition skilled nursing facility (03) | DRG 177 ==
LOC: ED 08:59 → PCU 09:02
PROVIDERS: Internal Medicine; Nurse Practitioner Adult Health; Admitting Provider Internal Medicine; Emergency Provider Emergency Medicine; PCP Family Medicine; Visit Provider Family Medicine
DX: J15.1 Pneumonia due to Pseudomonas (principal); N18.6 End stage renal disease; R78.81 Bacteremia; I13.2 Hypertensive heart and chronic kidney disease with heart failure and with stage 5 chronic kidney disease, or end stage renal disease; J96.11 Chronic respiratory failure with hypoxia; I50.32 Chronic diastolic (congestive) heart failure; D63.1 Anemia in chronic kidney disease; I48.0 Paroxysmal atrial fibrillation; E11.22 Type 2 diabetes mellitus with diabetic chronic kidney disease; Z99.2 Dependence on renal dialysis; J43.9 Emphysema, unspecified; E11.42 Type 2 diabetes mellitus with diabetic polyneuropathy; F41.8 Other specified anxiety disorders; E78.00 Pure hypercholesterolemia, unspecified; K21.9 Gastro-esophageal reflux disease without esophagitis; J10.1 Influenza due to other identified influenza virus with other respiratory manifestations; M25.551 Pain in right hip; B96.5 Pseudomonas (aeruginosa) (mallei) (pseudomallei) as the cause of diseases classified elsewhere; Z79.01 Long term (current) use of anticoagulants; G89.4 Chronic pain syndrome; Z66 Do not resuscitate; Z87.891 Personal history of nicotine dependence; Y95 Nosocomial condition; Z79.891 Long term (current) use of opiate analgesic; Z99.81 Dependence on supplemental oxygen
CPT/HCPCS: 36415; 36600; 71045; 73700; 75989; 80048; 80053; 80069; 80202; 82803; 82962; 83605; 83735; 84100; 84145; 85025; 85610; 85730; 87040; 87070; 87075; 87077; 87149; 87184; 87186; 87205; 87428; 87449; 87633; 87641; 87811; 90937; 93005; 94002; 94003; 94640; 94762; 97110; 97116; 97162; 97166; 97530; 97535; 99156; 99285; 99406; J7040; J7050; A4216; G0257; J2405; J3490

== ENCOUNTER 2022-06-25 12:54 | Inpatient (IN) | payer MEDICARE, MEDICAID, SELFPAY ==
[2022-06-25] VITALS (12 sets, daily range): BP systolic 121–139; BP diastolic 62–97; PULSE 67–93; RESP 12–24; TEMP 36.3–37.7; O2SAT 99–100; BMI 24.2; BMI 22.4
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
[2022-06-25] MEDS: Ipratropium/Albuterol Sulfate 3 ML AMPUL.NEB INHALATION ×3 (13:32→23:29)
[2022-06-25 13:36] LABS: Absolute Lymphocyte Count 0.53 X10^3/uL (0.83-4.51); Basophil# 0.03 X10^3/uL; Basophil% 0.3 % (0-1); Eosinophil# 0.03 X10^3/uL; Eosinophils% 0.3 % (0-5); Hematocrit 29.6 % (37-47); Hemoglobin 8.3 g/dL (12.0-15.0); Lymphocyte # 0.53 X10^3/ul (0.83-4.51); Lymphocyte % 4.8 % (19-41); Mean Corpuscular Hgb 28.7 pg (27.0-32.0); Mean Corpuscular Volume 102.4 fL (81-99); Mean Platelet Vol. 9.4 fl (6.2-12.0); Monocyte# 0.23 X10^3/uL; Monocyte% 2.1 % (0-10); NRBC Flagged by Analyzer 0.9 % (0-5); Neutrophil # 9.98 X10^3/uL (2.7-7.7); Neutrophil % 91.1 % (47-70); POSITIVE DIFFERENTIAL YES; POSITIVE MORPHOLOGY YES; Platelet Count 186 K/mm3 (150-450); RBC Distribution Width CV 18.3 % (11.6-14.6); RBC Distribution Width SD 69.1 fl (35.1-43.9); Red Blood Count 2.89 M/mm3 (4.2-5.4)
--- NOTE | 2022-06-25 13:42 | RAD_ITS ---
STUDY: X-RAY CHEST REASON FOR EXAM: Female, 72 years old. cough TECHNIQUE: Single AP portable view of the chest. COMPARISON: 06/17/2022 FINDINGS: Tunneled right internal jugular dialysis catheter which is unchanged. Alveolar opacities in the perihilar lungs bilaterally consistent with pneumonia. Small bilateral pleural effusions with bibasilar atelectasis. There is moderate cardiac enlargement. Normal mediastinum and farhan. Normal visualized pulmonary arteries. Normal visualized aortic arch and descending thoracic aorta. Normal visualized thoracic spine. Normal visualized ribs, clavicles, and shoulders. There is no demonstrated abnormality of the visualized soft tissue structures of the upper abdomen. RAD/Chest 1 View (Portable) IMPRESSION: 1. Bilateral perihilar pneumonia. 2. Small bilateral pleural effusions with bibasilar atelectasis. Electronically Signed: Peña Linder MD at 14:02 EST ,
[2022-06-25 13:49] LABS: Differential Indicated SCAN CRITERIA MET
[2022-06-25 13:50] LABS: Anion Gap 8 (5-15); BUN 46 mg/dL (7-18); BUN/Creat Ratio 7.8 RATIO (10-20); Calcium,Total 9.8 mg/dL (8.5-10.1); Chloride 100 mmol/L (98-107); Creatinine, Serum 5.91 mg/dL (0.55-1.02); EST Glomerular Filtration Rate 8 mL/min (>60); Est Glom Filt Rate - Afr Amer 9 mL/min (>60); Estimated Creatinine Clearance 9.26 ml/min; Glucose 102 mg/dL (74-106); Potassium 4.4 mmol/L (3.5-5.1); Sodium Level 139 mmol/L (136-145)
[2022-06-25 14:15] LABS: Anisocytosis 1+; Macrocytosis 1+; Platelet Estimate ADEQUATE (ADEQ)
[2022-06-25 14:16] LABS: Hypochromasia 1+; Polychromasia 1+
--- NOTE | 2022-06-25 14:20 | ED.RN ---
THIS RN CONTACTED [facility] TO OBTAIN REPORT, SINCE [facility] NEVER CALLED IN TO ED. 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 PT ARRIVES ALSO WITH 22 G IV IN LEFT POSTERIOR FOREARM. IV DID NOT FLUSH, UNABLE TO ACHIEVE BLOOD RETURN. THIS RN REMOVED IV AND COVERED WITH 2X2 GAUZE.
--- NOTE | 2022-06-25 14:28 | ED.RN ---
THIS RN CALLED AND TALKED WITH [facility] NURSE FROM [place]. THIS RN INFORMED NURSE THAT PT ARRIVED TO ED WITH PERIPHERAL IV LINE NURSE STATES, I WAS NOT AWARE THAT SHE HAD AN IV. THIS RN INFORMED HER THAT PT ALSO CARDIAC LEADS WERE STILL IN PLACE.
[2022-06-25 14:51] LABS: Base Excess 3 mmol/L (-2 to +2); Bicarbonate 29.4 mmol/L (22-26); Blood Gas Specimen Type ART; O2 Delivery Device Cannula; PO2 116 mmHG (75-100); SITE L Radial; SO2 98 % (95-99); Total Carbon Dioxide 31 mmol/L; pH 7.31 (7.35-7.45)
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
--- NOTE | 2022-06-25 18:03 | PHA.PHARE_ITS ---
Consult Pharmacy has been consulted to manage selected antiobiotic: Vancomycin Type of Consult: New start Suspected Infection: Pneumonia Labs: Sodium 139 mmol/L (136-145) 06/25/22 13:30 Potassium 4.4 mmol/L (3.5-5.1) 06/25/22 13:30 Chloride 100 mmol/L (98-107) 06/25/22 13:30 Carbon Dioxide 31.0 mmol/L (21.0-32.0) 06/25/22 13:30 Anion Gap 8 (5-15) 06/25/22 13:30 BUN 46 mg/dL (7-18) H 06/25/22 13:30 Creatinine 5.91 mg/dL (0.55-1.02) H 06/25/22 13:30 Est GFR (MDRD) Af Amer 9 mL/min (>60) L 06/25/22 13:30 Est GFR (MDRD) Non-Af 8 mL/min (>60) L 06/25/22 13:30 BUN/Creatinine Ratio 7.8 RATIO (10-20) L 06/25/22 13:30 Glucose 102 mg/dL (74-106) 06/25/22 13:30 Microbiology: Microbiology 06/25/22 13:00 Nasal Secretion SARS-CoV-2 Antigen (Rapid) - Final Goal Trough: 15-20 mcg/mL Pharmacy Plan for Drug Dosing: NEW START IV VANCOMYCIN Consulting Physician: Dr. Kinney Indication: Pneumonia Goal Trough: 15-20 SrCr: 5.91 CrCl: MWF Dialysis Comments: pt received a x1 dose of 1000mg on 06/25/22 Vancomycin Dose: pt is on a MWF dialysis schedule. per dosing policy, pt re ceive a x1 dose of 7.5mg/kg or 500mg after her Sunday dialysis. Random level to be drawn on the day of the next dialysis Pending Level: 06/28/22 at 0600 (random level) Pharmacy Service will continue to monitor and adjust dosing as required. Follow-Up Labs: Trough Vancomycin - 06/28/22 at 0600 (random level)
[2022-06-25] MEDS: Calcium Acetate 667 MG Capsule 2001 MG PO (18:08)
[2022-06-25] MEDS: Gabapentin 300 MG Capsule PO (18:08)
[2022-06-25] MEDS: Vancomycin IV 1,000 MG/200 ML BAG 200 MG IV (18:36)
[2022-06-25] MEDS: oxyCODONE 5 MG Tablet 10 MG PO ×2 (18:45→23:04)
[2022-06-25] MEDS: Acetaminophen 325 MG Tablet 650 MG PO (18:45)
[2022-06-25] MEDS: Budesonide Respules 0.5 MG/2 ML AMPUL.NEB. INHALATION (19:26)
[2022-06-25] MEDS: APIXABAN 2.5 MG TABLET (WCH) PO (21:47)
[2022-06-25] MEDS: Mirtazapine 15 MG Tablet 45 MG PO (21:47)
[2022-06-25] MEDS: guaiFENesin 1,200 MG Tablet 1200 MG PO (21:47)
[2022-06-25] MEDS: hydrALAZINE 50 MG Tablet 100 MG PO (21:48)
[2022-06-25] MEDS: Carvedilol 25 MG Tablet PO (21:48)
[2022-06-25] MEDS: Montelukast 10 MG Tablet PO (21:54)
[2022-06-26] VITALS (18 sets, daily range): BP systolic 98–149; BP diastolic 76–86; PULSE 65–96; RESP 12–24; TEMP 36.4–36.7; O2SAT 22–100
[2022-06-26] MEDS: hydrALAZINE 50 MG Tablet 100 MG PO ×2 (05:36→22:24)
[2022-06-26] MEDS: oxyCODONE 5 MG Tablet 10 MG PO ×4 (05:43→22:25)
[2022-06-26] MEDS: Dicyclomine 10 MG Capsule 20 MG PO ×2 (05:43→16:11)
[2022-06-26] MEDS: Budesonide Respules 0.5 MG/2 ML AMPUL.NEB. INHALATION ×2 (07:20→19:33)
[2022-06-26] MEDS: Ipratropium/Albuterol Sulfate 3 ML AMPUL.NEB INHALATION ×4 (07:20→23:14)
[2022-06-26 07:25] LABS: Absolute Lymphocyte Count 1.11 X10^3/uL (0.83-4.51); Absolute Neutrophil Count 7.7 X10^3/uL (2.0-7.7); Basophil# 0.04 X10^3/uL; Basophil% 0.4 % (0-1); Eosinophil# 0.09 X10^3/uL; Eosinophils% 0.9 % (0-5); Hematocrit 25.3 % (37-47); Hemoglobin 7.4 g/dL (12.0-15.0); Lymphocyte # 1.11 X10^3/ul (0.83-4.51); Lymphocyte % 11.5 % (19-41); Mean Corp Hgb Conc 29.2 g/dL (32-36); Mean Corpuscular Hgb 29.6 pg (27.0-32.0); Mean Corpuscular Volume 101.2 fL (81-99); Mean Platelet Vol. 9.3 fl (6.2-12.0); Monocyte# 0.66 X10^3/uL; Monocyte% 6.8 % (0-10); NRBC Flagged by Analyzer 1.7 % (0-5); Neutrophil # 7.65 X10^3/uL (2.7-7.7); Neutrophil % 79.3 % (47-70); POSITIVE MORPHOLOGY YES; Platelet Count 174 K/mm3 (150-450); RBC Distribution Width CV 18.3 % (11.6-14.6); RBC Distribution Width SD 69.2 fl (35.1-43.9); White Blood Count 9.7 K/mm3 (4.4-11.0)
[2022-06-26 07:29] LABS: Differential Indicated SCAN CRITERIA MET
[2022-06-26 07:54] LABS: Anisocytosis 1+; Hypochromasia 1+; Macrocytosis 1+; Microcytosis 1+; Ovalocyte 1+; Platelet Estimate ADEQUATE (ADEQ)
[2022-06-26 08:01] LABS: Anion Gap 9 (5-15); BUN 55 mg/dL (7-18); Chloride 101 mmol/L (98-107); Creatinine, Serum 6.85 mg/dL (0.55-1.02); EST Glomerular Filtration Rate 6 mL/min (>60); Est Glom Filt Rate - Afr Amer 8 mL/min (>60); Estimated Creatinine Clearance 7.99 ml/min; Glucose 83 mg/dL (74-106); Magnesium 2.8 mg/dL (1.6-2.6); Phosphorus 4.9 mg/dL (2.5-4.9); Potassium 4.8 mmol/L (3.5-5.1); Sodium Level 138 mmol/L (136-145)
[2022-06-26] MEDS: Acetaminophen 325 MG Tablet 650 MG PO (08:03)
[2022-06-26] MEDS: Carvedilol 25 MG Tablet PO ×2 (08:04→22:24)
[2022-06-26] MEDS: DULoxetine Hcl 60 MG Capsule PO (08:04)
[2022-06-26] MEDS: predniSONE 5 MG Tablet PO (08:04)
[2022-06-26] MEDS: Calcium Acetate 667 MG Capsule 2001 MG PO ×2 (08:04→16:11)
[2022-06-26] MEDS: guaiFENesin 1,200 MG Tablet 1200 MG PO ×2 (08:05→22:24)
[2022-06-26] MEDS: APIXABAN 2.5 MG TABLET (WCH) PO ×2 (08:05→22:24)
[2022-06-26] MEDS: amLODIPine 10 MG Tablet PO (08:05)
[2022-06-26] MEDS: Midodrine HCl 5 MG Tablet 10 MG PO (08:06)
[2022-06-26] MEDS: Pantoprazole Sodium 20 MG Tablet PO (08:06)
--- NOTE | 2022-06-26 09:24 | PN.HOSP_ITS ---
Subjective Subjective Patient is a 72-year-old lady with multiple comorbidities including paroxysmal atrial fibrillation on Eliquis, end-stage renal disease on hemodialysis diabetes mellitus type 2, essential hypertension dyslipidemia osteoarthritis chronic hypoxic respiratory failure secondary to COPD/asthma on home oxygen who presente d with?shortness of breath Objective Data Objective Data Vital Signs: Vital Signs Temp Pulse Resp BP Pulse Ox O2 Del Method O2 Flow Rate 97.5 F L 81 20 H 149/86 H 100 Nasal Cannula 3 06/26/22 05:00 06/26/22 07:21 06/26/22 07:21 06/26/22 05:36 06/26/22 08:36 06/26/22 08:36 06/26/22 08:36 FiO2 30 06/26/22 04:00 Oxygen Flow Rate (L/min) 3 Oxygen Delivery Method Nasal Cannula Weight: 68.7 kg Body Mass Index (BMI) 22.4 Intake & Output: Intake and Output for Last 24 Hours 06/24/22 06/25/22 06/26/22 23:59 23:59 23:59 Intake Total 310 / 430 120 / 120 Output Total 0 / 0 Balance 310 / 430 120 / 120 Lab / Micro Data Result Diagrams: 06/26/22 07:17 06/26/22 07:17 Labs: Laboratory Results - last 24 hr 06/25/22 13:30: WBC 11.0, RBC 2.89 L, Hgb 8.3 L, Hct 29.6 L, MCV 102.4 H, MCH 28.7, MCHC 28.0 L, RDW Std Deviation 69.1 H, RDW Coeff of Destiny 18.3 H, Plt Count 186, MPV 9.4, Immature Gran % (Auto) 1.400 H, Neut % (Auto) 91.1 H, Lymph % (Auto) 4.8 L, [place] % (Auto) 2.1, Eos % (Auto) 0.3, Baso % (Auto) 0.3, Absolute Neuts (auto) 10.0 H, Absolute Lymphs (auto) 0.53 L, Nucleated RBC % 0.9, Platelet Estimate ADEQUATE, Polychromasia 1+, Hypochromasia 1+, Anisocytosis 1+, Macrocytosis 1+ 06/25/22 13:30: Sodium 139, Potassium 4.4, Chloride 100, Carbon Dioxide 31.0, Anion Gap 8, BUN 46 H, Creatinine 5.91 H, Estim Creat Clear Calc 9.26, Est GFR (MDRD) Af Amer 9 L, Est GFR (MDRD) Non-Af 8 L, BUN/Creatinine Ratio 7.8 L, Glucose 102, Calcium 9.8 06/26/22 07:17: WBC 9.7, RBC 2.50 L, Hgb 7.4 L, Hct 25.3 L, MCV 101.2 H, MCH 29.6, MCHC 29.2 L, RDW Std Deviation 69.2 H, RDW Coeff of Destiny 18.3 H, Plt Count 174, MPV 9.3, Immature Gran % (Auto) 1.100 H, Neut % (Auto) 79.3 H, Lymph % (Auto) 11.5 L, [place] % (Auto) 6.8, Eos % (Auto) 0.9, Baso % (Auto) 0.4, Absolute Neuts (auto) 7.7, Absolute Lymphs (auto) 1.11, Nucleated RBC % 1.7, Platelet Estimate ADEQUATE, Hypochromasia 1+, Anisocytosis 1+, Microcytosis 1+, Macrocytosis 1+, Ovalocytes 1+ 06/26/22 07:17: Sodium 138, Potassium 4.8, Chloride 101, Carbon Dioxide 28.0, Anion Gap 9, BUN 55 H, Creatinine 6.85 H, Estim Creat Clear Calc 7.99, Est GFR (MDRD) Af Amer 8 L, Est GFR (MDRD) Non-Af 6 L, BUN/Creatinine Ratio 8.0 L, Glucose 83, Calcium 9.0, Phosphorus 4.9, Magnesium 2.8 H Micro: Microbiology 06/25/22 16:55 Mucosa - Nasopharyngeal Respiratory Panel (PCR) - Final 06/25/22 13:00 Nasal Secretion SARS-CoV-2 Antigen (Rapid) - Final ABG Data ABG results: ABG 06/25/22 14:44 Specimen Type ART Sample Site L Radial pH 7.31 L Bicarbonate Actual 29.4 H Total CO2 31 Base Excess 3 H O2 Saturation 98 ABG pCO2 58.0 H ABG pO2 116 H O2 Delivery Device Cannula Liter Flow 4.0 Radiography Diagnostic Testing: Radiology Impression Chest X-Ray 06/25/22 13:42 IMPRESSION: 1. Bilateral perihilar pneumonia. 2. Small bilateral pleural effusions with bibasilar atelectasis. Electronically Signed: Peña Linder MD at 14:02 EST , Physical Exam Narrative GENERAL: Patient appears ill looking HEENT: Atraumatic; normocephalic EYES; Anicteric, Normal Conjunctiva NECK; supple, normal thyroid, RESPIRATORY: Diminished to auscultation CARDIOVASCULAR:? Regular S1 S2, GI:? soft, normoactive bowel sounds, : No Renal angle tenderness; EXTREMITIES:? No edema, no clubbing, MUSCULOSKELETAL:? no muscle wasting NEURO:? Awake;? no lateralizing signs. SKIN:? No Rash PSYCH; Flat? affect Assessment & Plan Assessment/Plan (1) HCAP (healthcare-associated pneumonia): PLAN: Plan Patient is a 72-year-old lady with multiple comorbidities including paroxysmal atrial fibrillation on Eliquis, end-stage renal disease on hemodialysis diabetes mellitus type 2, essential hypertension dyslipidemia osteoarthritis chronic hypoxic respiratory failure secondary to COPD/asthma on home oxygen who presented with?shortness of breath 1.? Healthcare acquired pneumonia ? Patient had recently been admitted with similar complaints. Work-up during hospitalization was positive for alphahemolytic strep as well as Pseudomonas bacteremia discharged on cefepime presented back with worsening symptoms. Admitted to a monitored bed. Patient has been started on cefepime on discharge continue with added vancomycin requested for MRSA screen as well as viral respiratory panel = 06/26/2022; there is a question whether patient cefepime on discharge with dialysis have been administered. In any case her cultures so far negative to date including her viral respiratory panel. 2.? Chronic hypoxic respiratory failure ? Secondary to COPD patient is on baseline oxygen 2 L at rest 3.? End-stage renal disease ? Patient is on hemodialysis Wednesdays and Fridays consult placed to nephrology for dialysis orders 4.? Chronic congestive heart failure with preserved ejection fraction ? Echo obtained on 04/20/2021 demonstrated EF of 55% currently stable 5.? Hypertension - Blood pressure controlled, home medications continued with dose adjustment as needed 6.? Chronic pain syndrome ? Patient is on? gabapentin as well as oxycodone as needed did continue with home regimen 7. Anemia - Secondary to chronic disorder monitoring H&H and transfuse if patient becomes symptomatic or hemoglobin falls below 7 8.? GERD ? On PPI 9.? Paroxysmal A. fib ? Patient presented in sinus rhythm patient is on carvedilol for rate control as well as systemic anticoagulation with apixaban 10.? Depression with anxiety ?Patient is on Remeron and duloxetine did continue with home dose 11.? History of DVT -Patient is on Eliquis 2.5 mg p.o. twice daily 12. DVT prophylaxis ? On apixaban 13. Physical deconditioning - Requested for PT OT eval and social services manager to assist with discharge planning Charges/Coding Visit Charges Inpatient E&M: 80663 Subs Hosp L2
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
[2022-06-26] MEDS: Gabapentin 600 MG Tablet PO (16:10)
[2022-06-26] MEDS: Folic Acid/Vitamin B Comp W-C 1 Capsule 1 CAP PO (16:12)
[2022-06-26] MEDS: Vancomycin IV 500 MG/100 ML BAG 100 MG IV (17:56)
--- NOTE | 2022-06-26 19:43 | DIALYSIS ---
Hemodialysis tx completed x 3 hours without complications. Pt tolerated tx well, fluid removed 1,500mol using crit-line monitor. Vitals stable through out tx. Verbal report given to REGGIE Hastings post tx at 15:55.
[2022-06-26] MEDS: Montelukast 10 MG Tablet PO (22:24)
[2022-06-26] MEDS: Mirtazapine 15 MG Tablet 45 MG PO (22:24)
[2022-06-27] VITALS (16 sets, daily range): BP systolic 103–132; BP diastolic 56–82; PULSE 63–88; RESP 18–24; TEMP 36.6–37.2; O2SAT 98–100
[2022-06-27] MEDS: Acetaminophen 325 MG Tablet 650 MG PO ×2 (02:04→09:41)
[2022-06-27] MEDS: oxyCODONE 5 MG Tablet 10 MG PO ×4 (03:15→23:48)
[2022-06-27] MEDS: Dicyclomine 10 MG Capsule 20 MG PO ×3 (05:50→16:58)
[2022-06-27] MEDS: hydrALAZINE 50 MG Tablet 100 MG PO ×2 (05:50→23:19)
[2022-06-27 07:06] LABS: Absolute Lymphocyte Count 1.44 X10^3/uL (0.83-4.51); Basophil# 0.03 X10^3/uL; Basophil% 0.4 % (0-1); Eosinophil# 0.08 X10^3/uL; Eosinophils% 0.9 % (0-5); Hematocrit 25.1 % (37-47); Hemoglobin 7.2 g/dL (12.0-15.0); Lymphocyte # 1.44 X10^3/ul (0.83-4.51); Mean Corp Hgb Conc 28.7 g/dL (32-36); Mean Corpuscular Hgb 28.9 pg (27.0-32.0); Mean Corpuscular Volume 100.8 fL (81-99); Mean Platelet Vol. 9.6 fl (6.2-12.0); Monocyte# 0.77 X10^3/uL; Monocyte% 9.1 % (0-10); NRBC Flagged by Analyzer 0.9 % (0-5); Neutrophil # 6.04 X10^3/uL (2.7-7.7); Neutrophil % 71.3 % (47-70); POSITIVE MORPHOLOGY YES; Platelet Count 176 K/mm3 (150-450); RBC Distribution Width CV 18.2 % (11.6-14.6); RBC Distribution Width SD 67.7 fl (35.1-43.9); Red Blood Count 2.49 M/mm3 (4.2-5.4); White Blood Count 8.5 K/mm3 (4.4-11.0)
[2022-06-27] MEDS: Budesonide Respules 0.5 MG/2 ML AMPUL.NEB. INHALATION ×2 (07:06→20:22)
[2022-06-27 07:27] LABS: Anion Gap 7 (5-15); BUN 25 mg/dL (7-18); BUN/Creat Ratio 5.7 RATIO (10-20); Calcium,Total 8.5 mg/dL (8.5-10.1); Chloride 97 mmol/L (98-107); Creatinine, Serum 4.37 mg/dL (0.55-1.02); EST Glomerular Filtration Rate 11 mL/min (>60); Est Glom Filt Rate - Afr Amer 13 mL/min (>60); Estimated Creatinine Clearance 12.52 ml/min; Glucose 77 mg/dL (74-106); Potassium 3.6 mmol/L (3.5-5.1); Sodium Level 133 mmol/L (136-145)
[2022-06-27 07:29] LABS: Differential Indicated SCAN CRITERIA MET
[2022-06-27 09:08] LABS: Differential Comment SCANNED
[2022-06-27 09:09] LABS: Anisocytosis 2+; Polychromasia RARE
[2022-06-27 09:10] LABS: Hypochromasia 1+; Ovalocyte 1+
[2022-06-27 09:11] LABS: Macrocytosis 1+
[2022-06-27 09:13] LABS: Tear Drop Cell RARE
[2022-06-27] MEDS: APIXABAN 2.5 MG TABLET (WCH) PO ×2 (09:33→23:19)
[2022-06-27] MEDS: guaiFENesin 1,200 MG Tablet 1200 MG PO ×2 (09:33→23:19)
[2022-06-27] MEDS: amLODIPine 10 MG Tablet PO (09:33)
[2022-06-27] MEDS: Polyethylene Glycol 3350 17 GM PACKET PO (09:33)
[2022-06-27] MEDS: DULoxetine Hcl 60 MG Capsule PO (09:33)
[2022-06-27] MEDS: Calcium Acetate 667 MG Capsule 2001 MG PO ×3 (09:33→17:23)
[2022-06-27] MEDS: Carvedilol 25 MG Tablet PO ×2 (09:33→23:18)
[2022-06-27] MEDS: predniSONE 5 MG Tablet PO (09:33)
[2022-06-27] MEDS: Pantoprazole Sodium 20 MG Tablet PO (09:33)
[2022-06-27] MEDS: Nepro Liquid 120 ML LIQUID PO (09:52)
--- NOTE | 2022-06-27 09:52 | CASEMGMT ---
Discharge [facility] Strip Gauger This writer producer sent updates to Vicky via [facility]. Sally SPRAGUE Mothers Helper
[2022-06-27] MEDS: 0.9% Saline Lock 10 ML Syringe IV ×3 (09:58→18:27)
--- NOTE | 2022-06-27 11:26 | CASEMGMT ---
RN informed MARIA GUADALUPE that patient and her family do not want patient to return to [place]. SW met with patient. Patient confirmed she does not want to return to [place]. Too many things have changed there and she doesn't like it anymore. SW had a list of long term facility providers including quality and resource use data and consistent with patient?s preferred geographic region, medical needs, and insurance network were provided from the [facility] Guide. Patient said she would like SW to call her son Jose to see where he would like her to go. MARIA GUADALUPE called Jose and he confirmed they do not want patient to return to [place]. MARIA GUADALUPE started to go over the list and then offered to email him the list. He preferred this and gave SW his email address. MARIA GUADALUPE then emailed the list from [facility]. MARIA GUADALUPE asked that he pick 2-3 options. Plan: SNF pending choices, accepting facility, and insurance authorization. Evy GONZALEZ
--- NOTE | 2022-06-27 11:35 | PN.RENAL_ITS ---
Subjective Subjective Sitting up in bed. No overnight events. Reports breathing has improved. Objective Data Objective Data Vital Signs: Vital Signs Temp Pulse Resp BP Pulse Ox O2 Del Method O2 Flow Rate 98.0 F 78 20 H 132/82 H 99 Nasal Cannula 3 06/27/22 05:47 06/27/22 07:06 06/27/22 07:06 06/27/22 05:50 06/27/22 07:06 06/27/22 07:06 06/27/22 07:06 FiO2 30 06/26/22 23:10 Oxygen Flow Rate (L/min) 3 Oxygen Delivery Method Nasal Cannula Weight: 68.7 kg Body Mass Index (BMI) 22.4 Intake & Output: Intake and Output for Last 24 Hours 06/25/22 06/26/22 06/27/22 23:59 23:59 23:59 Intake Total 310 / 430 1070 / 1070 Output Total 0 / 0 0 / 0 Balance 310 / 430 1070 / 1070 0 / 0 Lab / Micro Data Result Diagrams: 06/27/22 06:10 06/27/22 06:10 Labs: Laboratory Results - last 24 hr 06/27/22 06:10: WBC 8.5, RBC 2.49 L, Hgb 7.2 L, Hct 25.1 L, MCV 100.8 H, MCH 28.9, MCHC 28.7 L, RDW Std Deviation 67.7 H, RDW Coeff of Destiny 18.2 H, Plt Count 176, MPV 9.6, Immature Gran % (Auto) 1.300 H, Neut % (Auto) 71.3 H, Lymph % (Auto) 17.0 L, [place] % (Auto) 9.1, Eos % (Auto) 0.9, Baso % (Auto) 0.4, Absolute Neuts (auto) 6.0, Absolute Lymphs (auto) 1.44, Nucleated RBC % 0.9, Differential Comment SCANNED, Polychromasia RARE, Hypochromasia 1+, Anisocytosis 2+, Macro cytosis 1+, Tear Drop Cells RARE, Ovalocytes 1+ 06/27/22 06:10: Sodium 133 L, Potassium 3.6, Chloride 97 L, Carbon Dioxide 29.0, Anion Gap 7, BUN 25 H, Creatinine 4.37 H, Estim Creat Clear Calc 12.52, Est GFR (MDRD) Af Amer 13 L, Est GFR (MDRD) Non-Af 11 L, BUN/Creatinine Ratio 5.7 L, Glucose 77, Calcium 8.5 Micro: Microbiology 06/25/22 16:55 Mucosa - Nasopharyngeal Respiratory Panel (PCR) - Final 06/25/22 13:00 Nasal Secretion SARS-CoV-2 Antigen (Rapid) - Final Physical Exam Narrative Const: Alert and oriented x3, no apparent distress Cardio: S1, S2, RRR Respiratory: Inspiratory and expiratory wheezing. No rales noted, on NC 3L. Abdomen: Soft, nontender Extremities: No edema Tunneled HD catheter dressing clean, dry and intact Assessment & Plan Assessment/Plan (1) End-stage renal disease on hemodialysis: (2) Acute and chronic respiratory failure: (3) HCAP (healthcare-associated pneumonia): PLAN: Plan No acute indication for [employer] today, patient tolerated dialysis yesterday. We will plan for dialysis tomorrow. During last hospitalization dry weight was lowered, her new EDW outpatient is 69.5 kg. Will monitor hemoglobin trends as patient receives iron and ANGELI at the outpatient kidney center. Blood cultures pending; on IV antibiotics, cefepime Blood pressure is on low side, will stop amlodipine. Recommend holding antihypertensives morning of dialysis.
--- NOTE | 2022-06-27 13:29 | CASEMGMT ---
MARIA GUADALUPE called patient's son Jose and left him a voice mail asking that he call MARIA GUADALUPE back with his choices for nurse homes. Evy Paredes FIBROUS PLASTERER CARLOS
[2022-06-27] MEDS: Gabapentin 300 MG Capsule PO (17:22)
--- NOTE | 2022-06-27 20:20 | PN.HOSP_ITS ---
Subjective Subjective Patient was seen and examined today, according to social media marketing specialist, she does not want to go back to [place], we are awaiting pre-CERT for her to go to another nursing facility at this time. Patient is currently on 3 L of oxygen via nasal cannula. I will repeat the patient's chest x-ray tomorrow morning and have i nfectious diseases see the patient to see if IV antibiotics need to be continued at this time. Objective Data Objective Data Vital Signs: Vital Signs Temp Pulse Resp BP Pulse Ox O2 Del Method O2 Flow Rate 97.9 F 81 18 103/56 L 100 Nasal Cannula 3 06/27/22 15:13 06/27/22 15:13 06/27/22 15:13 06/27/22 15:13 06/27/22 15:13 06/27/22 15:15 06/27/22 15:15 FiO2 30 06/26/22 23:10 Oxygen Flow Rate (L/min) 3 Oxygen Delivery Method Nasal Cannula Weight: 68.7 kg Body Mass Index (BMI) 22.4 Intake & Output: Intake and Output for Last 24 Hours 06/25/22 06/26/22 06/27/22 23:59 23:59 23:59 Intake Total 310 / 430 1070 / 1070 830 / 830 Output Total 0 / 0 0 / 0 Balance 310 / 430 1070 / 1070 830 / 830 Lab / Micro Data Result Diagrams: 06/27/22 06:10 06/27/22 06:10 Labs: Laboratory Results - last 24 hr 06/27/22 06:10: WBC 8.5, RBC 2.49 L, Hgb 7.2 L, Hct 25.1 L, MCV 100.8 H, MCH 28.9, MCHC 28.7 L, RDW Std Deviation 67.7 H, RDW Coeff of Destiny 18.2 H, Plt Count 176, MPV 9.6, Immature Gran % (Auto) 1.300 H, Neut % (Auto) 71.3 H, Lymph % (Auto) 17.0 L, [place] % (Auto) 9.1, Eos % (Auto) 0.9, Baso % (Auto) 0.4, Absolute Neuts (auto) 6.0, Absolute Lymphs (auto) 1.44, Nucleated RBC % 0.9, Differential Comment SCANNED, Polychromasia RARE, Hypochromasia 1+, Anisocytosis 2+, Macrocytosis 1+, Tear Drop Cells RARE, Ovalocytes 1+ 06/27/22 06:10: Sodium 133 L, Potassium 3.6, Chloride 97 L, Carbon Dioxide 29.0, Anion Gap 7, BUN 25 H, Creatinine 4.37 H, Estim Creat Clear Calc 12.52, Est GFR (MDRD) Af Amer 13 L, Est GFR (MDRD) Non-Af 11 L, BUN/Creatinine Ratio 5.7 L, Glucose 77, Calcium 8.5 Micro: Microbiology 06/25/22 16:55 Mucosa - Nasopharyngeal Respiratory Panel (PCR) - Final 06/25/22 13:00 Nasal Secretion SARS-CoV-2 Antigen (Rapid) - Final Physical Exam Const alert, oriented x3 and no apparent distress Constitutional Narrative: Patient appears older than her stated age General Appearance: cooperative, well kempt and well developed Orientation / Consciousness: awake, oriented to person, oriented to place and oriented to time HEENT normocephalic and moist oral mucous membranes Eyes PERRL, EOMs intact bilaterally and conjunctivae normal Neck supple, no JVD, thyroid normal and no carotid bruits General: trachea midline Resp normal respiratory effort and clear to auscultation bilaterally Auscultation: Negative for rales, rhonchi or wheezes Cardio regular rate, regular rhythm, S1 normal heart sound, S2 normal heart sound, no murmurs, no rub and no gallops GI normal to inspection, nondistended, normoactive bowel sounds, soft to palpation, non-tender and non-distended Extremity no clubbing, cyanosis or edema Skin no rashes or lesions noted General Skin Exam: no breakdown Neuro oriented x3, CN's II-XII intact bilaterally, no focal motor deficits and no sensory deficits noted Sensorium / Orientation: awake and alert Speech: speech normal Psych affect normal Assessment & Plan Assessment/Plan (1) COPD (chronic obstructive pulmonary disease): PLAN: Plan 1. Fluid overload and vascular congestion secondary to end-stage renal disease- I do not believe the patient has a pneumonia at this time, I will have infectious diseases see the patient for antibiotic de-escalation #2 chronic hypoxic respiratory failure-patient remains on supplemental oxygen #3 end-stage renal disease on dialysis-nephrology is participating in her care #4 chronic obstructive pulmonary disease-continue present treatment #5 essential hypertension-patient will remain on her current medications #6 chronic pain syndrome-continue present medications We are currently awaiting pre-CERT at another retirement for the patient. Charges/Coding Visit Charges Inpatient E&M: 12250 Subs Hosp L2
[2022-06-27] MEDS: Ipratropium/Albuterol Sulfate 3 ML AMPUL.NEB INHALATION (20:22)
[2022-06-27] MEDS: Montelukast 10 MG Tablet PO (23:18)
[2022-06-27] MEDS: Mirtazapine 15 MG Tablet 45 MG PO (23:19)
[2022-06-28] VITALS (10 sets, daily range): BP systolic 97–139; BP diastolic 66–98; PULSE 60–83; RESP 16–19; TEMP 36.7–37.1; O2SAT 96–100
--- NOTE | 2022-06-28 00:30 | CPS ---
Pt hasn't been on bipap all day. Will call if she wants to go on anytime tonight.
--- NOTE | 2022-06-28 05:55 | RAD_ITS ---
STUDY: X-RAY CHEST REASON FOR EXAM: Female, 72 years old. pneumonia TECHNIQUE: Single AP portable view of the chest. COMPARISON: June 25, 2022 FINDINGS: 1. Stable right side central venous catheter 2. Persistent mild to moderate bilateral lower lobe consolidation with small shifting pleural effusions. The upper lung linda remain clear. 3. No pneumothorax is present 4. Normal heart size 5. Stable mediastinal and osseous structures There is no demonstrated abnormality of the visualized soft tissue structures of the upper abdomen. RAD/Chest 1 View (Portable) IMPRESSION: * Persistent mild to moderate bilateral lower lobe consolidation with small shifting pleural effusions. Electronically Signed: Rey Ladd MD at 8:31 EST ,
[2022-06-28] MEDS: Dicyclomine 10 MG Capsule 20 MG PO ×3 (06:05→17:57)
[2022-06-28] MEDS: Budesonide Respules 0.5 MG/2 ML AMPUL.NEB. INHALATION (07:10)
[2022-06-28] MEDS: Ipratropium/Albuterol Sulfate 3 ML AMPUL.NEB INHALATION (07:10)
[2022-06-28 07:25] LABS: Vancomycin, Random Level 22.9 ug/mL (0.0-15.0)
--- NOTE | 2022-06-28 08:00 | NURSING ---
Emergency Documentation effective 06/28 @ 0800.
--- NOTE | 2022-06-28 08:06 | PCM.RX.CS ---
Consult Pharmacy has been consulted to manage selected antiobiotic: Vancomycin Type of Consult: Follow-up Suspected Infection: Pneumonia Prior Doses of Antibiotics Received/Current Regimen: 500mg iv x 1 post dialysis on 06.26.22. Labs: Sodium 133 mmol/L (136-145) L 06/27/22 06:10 Potassium 3.6 mmol/L (3.5-5.1) 06/27/22 06:10 Chloride 97 mmol/L (98-107) L 06/27/22 06:10 Carbon Dioxide 29.0 mmol/L (21.0-32.0) 06/27/22 06:10 Anion Gap 7 (5-15) 06/27/22 06:10 BUN 25 mg/dL (7-18) H 06/27/22 06:10 Creatinine 4.37 mg/dL (0.55-1.02) H 06/27/22 06:10 Est GFR (MDRD) Af Amer 13 mL/min (>60) L 06/27/22 06:10 Est GFR (MDRD) Non-Af 11 mL/min (>60) L 06/27/22 06:10 BUN/Creatinine Ratio 5.7 RATIO (10-20) L 06/27/22 06:10 Glucose 77 mg/dL (74-106) 06/27/22 06:10 Random Vancomycin 22.9 ug/mL (0.0-15.0) H 06/28/22 06:00 Microbiology: Microbiology 06/25/22 14:59 Blood Culture (Wb) - Anticubital Left Blood Culture - Preliminary No growth in 48 hours. 06/25/22 14:30 Blood Culture (Wb) - Anticubital Left Blood Culture - Preliminary No growth in 48 hours. 06/25/22 16:55 Mucosa - Nasopharyngeal Respiratory Panel (PCR) - Final 06/25/22 13:00 Nasal Secretion SARS-CoV-2 Antigen (Rapid) - Final Weight used for dosin.7 kg Estimated Creatinine Clearance: 12.5ml/min Goal Trough: 15-20 mcg/mL Pharmacy Plan for Drug Dosing: Random level today was 22.9. Will hold further dosing per pharmacokinetic policy and get another random level pre-dialysis on Sun06.30.22. Dosing will resume when level <20mcg/ml. Pharmacy Service will continue to monitor and adjust dosing as required. Follow-Up Labs: Trough Vancomycin - random level 12.30.22 @0600
--- NOTE | 2022-06-28 09:23 | CASEMGMT ---
Discharge Facility Engineer This screenplay writer talked to patient yarelis Garcia. Patient son is requesting a referral be sent to [facility]. This screenplay writer sent a referral to [facility] via [facility]. Sally SPRAGUE Oil Plant Operator
--- NOTE | 2022-06-28 09:35 | CASEMGMT ---
REGGIE FAN called [facility] and confirmed HD schedule: [facility] [id number] with [facility] providing transportation.
[2022-06-28] MEDS: Calcium Acetate 667 MG Capsule 2001 MG PO ×3 (09:52→17:58)
[2022-06-28] MEDS: predniSONE 5 MG Tablet PO (09:52)
[2022-06-28] MEDS: Folic Acid/Vitamin B Comp W-C 1 Capsule 1 CAP PO (09:52)
[2022-06-28] MEDS: DULoxetine Hcl 60 MG Capsule PO (09:52)
[2022-06-28] MEDS: guaiFENesin 1,200 MG Tablet 1200 MG PO (09:52)
[2022-06-28] MEDS: Midodrine HCl 5 MG Tablet 10 MG PO (09:52)
[2022-06-28] MEDS: Pantoprazole Sodium 20 MG Tablet PO (09:52)
[2022-06-28] MEDS: APIXABAN 2.5 MG TABLET (WCH) PO (09:54)
--- NOTE | 2022-06-28 10:39 | CASEMGMT ---
[facility] reached out. Patient has been accepted. MARIA GUADALUPE Del Castillo notified. Sally SPRAGUE Ironmolder
--- NOTE | 2022-06-28 12:14 | PN.RENAL_ITS ---
Subjective Subjective Resting in bed. Reports feeling better overall. Denies any shortness of breath or chest pain. Objective Data Objective Data Vital Signs: Vital Signs Temp Pulse Resp BP Pulse Ox O2 Del Method O2 Flow Rate 98.1 F 78 18 97/66 97 Nasal Cannula 2 06/28/22 09:48 06/28/22 09:48 06/28/22 09:48 06/28/22 09:48 06/28/22 09:48 06/28/22 09:48 06/28/22 09:48 FiO2 30 06/26/22 23:10 Oxygen Flow Rate (L/min) 2 Oxygen Delivery Method Nasal Cannula Weight: 68.7 kg Body Mass Index (BMI) 22.4 Intake & Output: Intake and Output for Last 24 Hours 06/26/22 06/27/22 06/28/22 23:59 23:59 23:59 Intake Total 1070 / 1070 830 / 830 Output Total 0 / 0 0 / 0 0 / 0 Balance 1070 / 1070 830 / 830 0 / 0 Lab / Micro Data Result Diagrams: 06/27/22 06:10 06/27/22 06:10 Labs: Laboratory Results - last 24 hr 06/28/22 06:00: Random Vancomycin 22.9 H Micro: Microbiology 06/25/22 14:59 Blood Culture (Wb) - Anticubital Left Blood Culture - Preliminary No growth in 48 hours. 06/25/22 14:30 Blood Culture (Wb) - Anticubital Left Blood Culture - Preliminary No growth in 48 hours. 06/25/22 16:55 Mucosa - Nasopharyngeal Respiratory Panel (PCR) - Final 06/25/22 13:00 Nasal Secretion SARS-CoV-2 Antigen (Rapid) - Final Radiography Diagnostic Testing: Radiology Impression Chest X-Ray 06/28/22 05:55 IMPRESSION: * Persistent mild to moderate bilateral lower lobe consolidation with small shifting pleural effusions. Electronically Signed: Rey Ladd MD at 8:31 EST , Physical Exam Narrative Const: Alert and oriented x3, no apparent distress Cardio: S1, S2, RRR Respiratory:, Diminished breath sounds, no wheezing. No rales noted, on NC 2- 3L. Abdomen: Soft, nontender Extremities: No edema Tunneled HD catheter dressing clean, dry and intact Assessment & Plan Assessment/Plan (1) End-stage renal disease on hemodialysis: (2) Acute and chronic respiratory failure: (3) HCAP (healthcare-associated pneumonia): PLAN: Plan Hemodialysis today over 3.5 hours and attempt fluid removal as patient/blood pressure tolerates. During last hospitalization dry weight was lowered, her new EDW outpatient is 69.5 kg. Reviewed today's chest x-ray. Will monitor hemoglobin trends as patient receives iron and ANGELI at the outpatient kidney center. Blood cultures so far no growth to date; on IV antibiotics, cefepime/ vanco Blood pressure is on low side, will stop amlodipine. Recommend holding antihypertensives morning of dialysis. d/c planning in progress.
--- NOTE | 2022-06-28 13:17 | CHAPLAIN ---
Type of Pastoral Visit _x__ Initial Visit ___ Follow-up Visit ___ On-call Visit ___ General Patient Visit ___ Spiritual Assessment ___ Family Conference ___ Bereavement ___ Rapid Response ___ Code Blue ___ Other (describe below) Pastoral Care Referral From _x__ Patient ___ Family ___ Nurse ___ Physician ___ Electrophysiology Nurse Practitioner ___ Top Cutter ___ Other (describe below) Sacrament/Intervention _x__ Active listening ___ Anointing ___ Anabaptist ___ Bereavement ___ Communion ___ Flaca exploration ___ ___ Life review _x__ Prayer ___ Reconciliation ___ Sacrament of Sick ___ Supportive presence ___ Wedding ___ Other (describe below) Pastoral Comments patient frequently seen in previous admissions; greeted and offered support; pt reports on her current situation and is hopeful she says; pt welcomes prayer; pt is ready to eat her lunch
[2022-06-28] MEDS: oxyCODONE 5 MG Tablet 10 MG PO (14:12)
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
--- NOTE | 2022-06-28 15:46 | CASEMGMT ---
Discharge Promotional Advertising Assistant Pre-cert has been obtained at [facility]. MARIA GUADALUPE Del Castillo notified. Sally SPRAGUE Split Leather Department Supervisor
--- NOTE | 2022-06-28 15:49 | PCM.TXEXTCAR ---
Diet Diet Order/Speech Therapy: 06/25/22 16:42 Diet: Renal - General Food consistency:: Regular Liquid Consistency:: Regular/Thin Is pt able to select menu?: Yes Routine Orders/Code Status Code Status: Full Code Wound(s) bottom lip: Wound Type: Abrasion Therapies Weight Bearing: Full weight bearing Problem/Diagnosis (1) End-stage renal disease on hemodialysis: Status: Chronic Code(s): N18.6 - End stage renal disease; Z99.2 - Dependence on renal dialysis (2) Bacteremia: Status: Acute Code(s): R78.81 - Bacteremia Comment: resolved (3) Acute and chronic respiratory failure: Status: Chronic Code(s): J96.20 - Acute and chronic respiratory failure, unspecified whether with hypoxia or hypercapnia Comment: due to fluid overload-pneumonia was ruled out (4) Atrial fibrillation: Status: Chronic Code(s): I48.91 - Unspecified atrial fibrillation (5) Current use of anticoagulant therapy: Status: Chronic Code(s): Z79.01 - manager long term care (current) use of anticoagulants (6) Chronic pain: Status: Chronic Code(s): G89.29 - Other chronic pain (7) COPD (chronic obstructive pulmonary disease): Status: Chronic Code(s): J44.9 - Chronic obstructive pulmonary disease, unspecified Allergies/Procedures Done in Hospital Allergies No Known Allergies Allergy (Verified 06/25/22 12:54) Procedures: Dialysis Type of Care/Length of Stay Estimated LOS: Convalescent Care Less Than 30 days Type of Care Needed: Skilled Rehab Potential: Good Prognosis: Good Additional Orders/Day of Discharge H&P will serve as current which was dated: 06/25/22 Day of Discharge: 06/28/22 Dietary and Speech Recommendations Dietitian Recommendations/Changes: Continue general renal diet; restrict carbohydrates as needed. Will add 120ml Nepro 4 times per day with medpass as tolerated. Discharge Plan Admission Admit Date/Time: 06/25/22 14:25 Primary Reason for Your Visit: shortness of breath, fluid overload Attending Provider: Shar Wakefield Primary Care Provider: Nehemiah Colmenares Consulting Providers: Brian Kinney ; Soraida Sears ; Donte Baird Discharge Orders/Prescriptions Prescriptions: New Nepro Carb Steady 0.08 gram-1.8 kcal/mL Liquid 120 ml PO 4X/DAY Qty: 0 0RF oxycodone 5 mg Tablet 10 mg PO Q4H PRN PRN (Reason: Pain Score 4-10) 5 Days Qty: 15 0RF Continued hydralazine 100 MG tablet 100 mg PO TID amlodipine 10 mg Tablet 10 mg PO DAILY calcium acetate(phosphat bind) 667 mg Capsule 2,001 mg PO TIDCM mirtazapine 45 mg Tablet 45 mg PO QHS Eliquis 2.5 mg Tablet 2.5 mg PO BID dicyclomine 20 mg tablet 20 mg PO TID Label Comments: Take 1 tablet by mouth three times daily before meals. gabapentin 600 mg tablet 600 mg PO MOWEFR Label Comments: 1 TABLET BY MOUTH EVERY (3P-6P AFTER DIALYSIS) DX: gabapentin 300 mg capsule 300 mg PO SUTUTH Label Comments: 1 CAPSULE BY MOUTH [id number] (3P-6P) DX:E omeprazole 20 mg capsule,delayed release(DR/EC) 20 mg PO DAILY Label Comments: 1 CAPSULE BY MOUTH ONCECDAILY DX: / NURSE TO REORDER RenaPlex-D 800 mcg-12.5 mg -2,000 unit tablet 1 tab PO MOWEFR Label Comments: TAKE 1 TABLET BY MOUTH EVERY DAY (ON DIALYSIS DAYS, TAKE AFTER DIALYSIS TREATMENT) montelukast [Singulair] 10 mg Tablet 10 mg PO QHS lactulose 10 gram/15 mL Solution 30 ml PO QHS PRN (Reason: Constipation) carvedilol 25 mg Tablet 25 mg PO BID Qty: 0 0RF midodrine 10 mg tablet 10 mg PO MOWEFR prednisone 5 mg tablet 5 mg PO DAILY Hold Instructions: Restart once taper is completed fluticasone propion-salmeterol [Advair Diskus] 500-50 mcg/dose Blister With Device 1 inh INHALATION BID Spiriva Respimat 2.5 mcg/actuation Mist 2 puff INHALATION DAILY duloxetine 60 mg capsule,delayed release(DR/EC) 60 mg PO DAILY polyethylene glycol 3350 [Miralax] 17 gram/dose powder 17 g PO DAILY albuterol sulfate 2.5 mg /3 mL (0.083 %) Solution For Nebulization 2.5 mg inhalation Q2H PRN PRN (Reason: SOB/Wheezing) 30 Days Qty: 90 1RF acetaminophen [Tylenol] 325 mg Tablet 650 mg PO Q6H PRN PRN (Reason: Pain 1-10 Or Fever >100.7) Qty: 0 0RF Mucus Relief ER 1,200 mg Tablet Extended Release 12hr 1,200 mg PO BID Qty: 14 0RF Changed albuterol sulfate 90 mcg/actuation HFA aerosol inhaler 2 puff inhalation Q6H Qty: 8.5 2RF Discontinued ipratropium-albuterol 0.5 mg-3 mg(2.5 mg base)/3 mL Solution For Nebulization 3 ml inhalation Q4H.RT PRN (Reason: shortness of breath or wheezing) Qty: 180 1RF sennosides-docusate sodium [Stool Softener-Stimulant Laxat] 8.6-50 mg Tablet 2 tab PO BID PRN PRN (Reason: Constipation) Qty: 0 0RF cefepime 2 gram recon soln 2 g IV .see below 7 Days Qty: 3 0RF Rx Instructions: 2gm cefepime to be given with dialysis MWF dx: bacteremia oxycodone 10 mg Tablet 10 mg PO BID PRN (Reason: Breakthrough Pain) 3 Days Qty: 6 0RF Referrals / Follow Up: Nehemiah Colmenares [Primary Care Provider] - Disposition Disposition (needs filled in before D/C Order can be placed): [facility] (1) Chronic pain Qualifiers: Chronic pain type: other chronic pain Qualified Code(s): G89.29 - Other chronic pain
--- NOTE | 2022-06-28 15:56 | CASEMGMT ---
Social Work Pre-cert has been obtained per discharge planning assistanceAmanda. Patient is able to discharge to [facility] when medically cleared. Per Dr. Wakefield patient is medically cleared for discharge today. This drug abuse social worker updated patient on above information. Patient agreeable to discharge plan. Patient request for a wheelchair van transportation to be set up. Telephone call to patient sonJose. No answer. No voicemail set up. Green Sheet placed on chart. Charge nurse notified of Green Sheet to follow when patient discharge is entered. PASRR completed in HENS. Proposed discharge date: 06/28/2022 PLAN: [facility], Skilled. Joel JIMENEZ, HUMAN FACTORS ENGINEER-S
--- NOTE | 2022-06-28 16:53 | DS.PCM_ITS ---
Providers Date of Admission: 06/25/22 Date of Discharge: 06/28/22 Primary Care Physician: Nehemiah Colmenares Consultations 06/27/22 10:03 Consult: Nephrology Routine Consulting Provider: Soraida Sears Reason for Consult: HD EMERGENT Consult: No Notified: Yes Date Notified: 06/27/22 Time Notified: 10:03 Method of Notification: Verbal 06/27/22 20:23 Consult: Infectious Disease Routine Consulting Provider: Donte Baird Reason for Consult: possible transition to oral antibiotics EMERGENT Consult: No MD Notified: Yes Date Notified: 06/28/22 Time Notified: 08:43 Method of Notification: Answering Service Reason For Visit: HYPOXIA Diagnosis Discharge Diagnosis (1) End-stage renal disease on hemodialysis: Status: Chronic Code(s): N18.6 - End stage renal disease; Z99.2 - Dependence on renal dialysis (2) Bacteremia: Status: Resolved Code(s): R78.81 - Bacteremia (3) Acute and chronic respiratory failure: Status: Chronic Code(s): J96.20 - Acute and chronic respiratory failure, unspecified whether with hypoxia or hypercapnia (4) Atrial fibrillation: Status: Chronic Code(s): I48.91 - Unspecified atrial fibrillation (5) Current use of anticoagulant therapy: Status: Chronic Code(s): Z79.01 - keno terminal operator (current) use of anticoagulants (6) Chronic pain: Status: Chronic Code(s): G89.29 - Other chronic pain Qualifiers: Chronic pain type: other chronic pain Qualified Code(s): G89.29 - Other chronic pain (7) COPD (chronic obstructive pulmonary disease): Status: Chronic Code(s): J44.9 - Chronic obstructive pulmonary disease, unspecified Plan 1. Fluid overload and vascular congestion secondary to end-stage renal disease- pneumonia was ruled out #2 chronic hypoxic respiratory failure #3 end-stage renal disease on dialysis #4 chronic obstructive pulmonary disease #5 essential hypertension #6 chronic pain syndrome Medications at Discharge Home Medications hydralazine 100 mg tablet 100 mg PO TID BLOOD PRESSURE 03/31/20 amlodipine 10 mg tablet 10 mg PO DAILY blood pressure 11/30/20 calcium acetate(phosphat bind) 667 mg capsule 2,001 mg PO TIDCM health maintenance 11/30/20 apixaban 2.5 mg tablet (Eliquis) 2.5 mg PO BID anticoagulant 01/08/21 mirtazapine 45 mg tablet 45 mg PO QHS INSOMNIA 01/08/21 dicyclomine 20 mg tablet 20 mg PO TID 02/26/21 gabapentin 300 mg capsule 300 mg PO SUTUTHSA NERVE PAIN 10/05/21 gabapentin 600 mg tablet 600 mg PO MOWEFR NERVE PAIN 10/05/21 omeprazole 20 mg capsule,delayed release 20 mg PO DAILY GERD 10/05/21 vit B,C-folic ac 800 mcg-zinc 12.5 mg-selen-D3 2,000 unit-vit E tablet (RenaPlex-D) 1 tab PO MOWEFR DIALYSIS 10/05/21 lactulose 10 gram/15 mL oral solution 30 ml PO QHS PRN Constipation 10/25/21 montelukast 10 mg tablet (Singulair) 10 mg PO QHS ALLERGIES 10/25/21 carvedilol 25 mg tablet 25 mg PO BID #0 tabs 12/21/21 midodrine 10 mg tablet 10 mg PO MOWEFR 02/23/22 prednisone 5 mg tablet 5 mg PO DAILY STEROID 02/23/22 duloxetine 60 mg capsule,delayed release 60 mg PO DAILY DEPRESSION 05/19/22 fluticasone 500 mcg-salmeterol 50 mcg/dose blistr powdr for inhalation (Advair Diskus) 1 inh inhalation BID 05/19/22 polyethylene glycol 3350 17 gram/dose oral powder (Miralax) 17 g PO DAILY CONSTIPATION 05/19/22 tiotropium bromide 2.5 mcg/actuation mist for inhalation (Spiriva Respimat) 2 puff inhalation DAILY 05/19/22 albuterol sulfate 2.5 mg/3 mL (0.083 %) solution for nebulization 2.5 mg (3 mL) inhalation Q2H PRN PRN SOB/Wheezing 30 days #90 mL 05/20/22 acetaminophen 325 mg tablet (Tylenol) 650 mg PO Q6H PRN PRN Pain 1-10 Or Fever >100.7 #0 tabs 06/13/22 guaifenesin 1,200 mg tablet, extended release 12 hr (Mucus Relief ER) 1,200 mg PO BID #14 tabs 06/13/22 albuterol sulfate 90 mcg/actuation aerosol inhaler 2 puff inhalation Q6H #8.5 grams 06/28/22 nut.tx.imp.renal fxn,lac-reduc 0.08 gram-1.8 kcal/mL oral liquid (Nepro Carb Steady) 120 ml PO 4X/DAY #0 mL 06/28/22 oxycodone 5 mg tablet 10 mg PO Q4H PRN PRN Pain Score 4-10 5 days #15 tabs 06/28/22 Hospital Course Operations None Procedures Dialysis Summary of Care Provided Minutes Spent on Discharge: 31 Hospital Course: This 72-year-old black female was seen in the emergency room at [facility] after being transferred from a local extended care facility at which she was receiving rehab services. Her chief complaint was shortness of breath, work-up in the emergency room revealed her to have no obvious respiratory distress, work-up included a CBC which showed white count of 11 and hemoglobin of 8.3, patient was COVID-negative, chest x-ray was obtained and there was a question that she had pneumonia along with small bilateral pleural effusions. Patient was admitted to PCU and initially placed on antibiotics for pneumonia, she underwent dialysis and the chest x-ray the next day did not show any evidence of infiltrate and was felt that the patient did not have pneumonia. Patient requested transfer to a different extended care facility from which she came from and arrangements were made to have her go to another shelter facility. Patient underwent dialysis during her hospital stay which was chronic for her.Patient was seen by infectious diseases due to the fact she had been on a recent course of antibiotics for Pseudomonas in the blood, infectious diseases did not feel the patient needed to continue on these antibiotics. On 06/28/2022, patient was seen and examined: On examination she appeared in [facility] and spirits, she does not appear to be in any distress. Vital signs as documented. Skin warm and dry and without overt rashes. Neck without JVD, thyroid appears normal, trachea is midline, neck is supple. Lungs clear, normal air movement was noted. Heart exam notable for regular rhythm, normal sounds and absence of murmurs, rubs or gallops. Abdomen unremarkable and without evidence of organomegaly, masses, or abdominal aortic enlargement, bowel sounds are present in all 4 quadrants, no abdominal tenderness was noted. Extremities nonedematous, no cyanosis was noted, no clubbing was noted. Neuro: Cranial nerves II through XII are grossly intact, no focal motor deficits were noted, se nsation to light touch and pinprick is intact, motor exam 5/5 throughout. Psych: Patient is alert and oriented x3, she does not appear anxious or depressed, she does not appear agitated. Patient appears stable for discharge on 06/28/2022 to an extended care facility. Weight / BMI Weight Weight: 68.7 kg Body Mass Index (BMI) 22.4 ABG / Lab / Microbiology Data Result Diagrams: 06/27/22 06:10 06/27/22 06:10 Laboratory: Laboratory Results - last 24 hr 06/28/22 06:00: Random Vancomycin 22.9 H Microbiology: Microbiology 06/25/22 14:59 Blood Culture (Wb) - Anticubital Left Blood Culture - Preliminary No growth in 48 hours. 06/25/22 14:30 Blood Culture (Wb) - Anticubital Left Blood Culture - Preliminary No growth in 48 hours. 06/25/22 16:55 Mucosa - Nasopharyngeal Respiratory Panel (PCR) - Final 06/25/22 13:00 Nasal Secretion SARS-CoV-2 Antigen (Rapid) - Final Radiography Diagnostic Testing: Radiology Impression Chest X-Ray 06/28/22 05:55 IMPRESSION: * Persistent mild to moderate bilateral lower lobe consolidation with small shifting pleural effusions. Electronically Signed: Rey Ladd MD at 8:31 EST Reading Location ID and State: [address] [place] [address] , Service support , Meaningful Use Info Meaningful Use Diagnoses (Choose all that apply): None applicable Discharge Plan Admission Admit Date/Time: 06/25/22 14:25 Primary Reason for Your Visit: shortness of breath, fluid overload Attending Provider: Shar Wakefield Primary Care Provider: Nehemiah Colmenares Consulting Providers: Brian Kinney ; Soraida Sears ; Donte Baird Instructions Additional Instructions / Restrictions: Patient Problems: Altered Health Status related to Hospitalization Patient Goals: *Optimal Level of Health *Keep Appointments *Medication Compliance *Remain Safe Discharge Orders/Prescriptions Prescriptions: New Nepro Carb Steady 0.08 gram-1.8 kcal/mL Liquid 120 ml PO 4X/DAY Qty: 0 0RF oxycodone 5 mg Tablet 10 mg PO Q4H PRN PRN (Reason: Pain Score 4-10) 5 Days Qty: 15 0RF Continued hydralazine 100 MG tablet 100 mg PO TID amlodipine 10 mg Tablet 10 mg PO DAILY calcium acetate(phosphat bind) 667 mg Capsule 2,001 mg PO TIDCM mirtazapine 45 mg Tablet 45 mg PO QHS Eliquis 2.5 mg Tablet 2.5 mg PO BID dicyclomine 20 mg tablet 20 mg PO TID Label Comments: Take 1 tablet by mouth three times daily before meals. gabapentin 600 mg tablet 600 mg PO MOWEFR Label Comments: 1 TABLET BY MOUTH EVERY (3P-6P AFTER DIALYSIS) DX: gabapentin 300 mg capsule 300 mg PO SUTUTHSA Label Comments: 1 CAPSULE BY MOUTH (3P-6P) DX:E omeprazole 20 mg capsule,delayed release(DR/EC) 20 mg PO DAILY Label Comments: 1 CAPSULE BY MOUTH ONCECDAILY DX: / NURSE TO REORDER RenaPlex-D 800 mcg-12.5 mg -2,000 unit tablet 1 tab PO MOWEFR Label Comments: TAKE 1 TABLET BY MOUTH EVERY DAY (ON DIALYSIS DAYS, TAKE AFTER DIALYSIS TREATMENT) montelukast [Singulair] 10 mg Tablet 10 mg PO QHS lactulose 10 gram/15 mL Solution 30 ml PO QHS PRN (Reason: Constipation) carvedilol 25 mg Tablet 25 mg PO BID Qty: 0 0RF midodrine 10 mg tablet 10 mg PO MOWEFR prednisone 5 mg tablet 5 mg PO DAILY Hold Instructions: Restart once taper is completed fluticasone propion-salmeterol [Advair Diskus] 500-50 mcg/dose Blister With Device 1 inh INHALATION BID Spiriva Respimat 2.5 mcg/actuation Mist 2 puff INHALATION DAILY duloxetine 60 mg capsule,delayed release(DR/EC) 60 mg PO DAILY polyethylene glycol 3350 [Miralax] 17 gram/dose powder 17 g PO DAILY albuterol sulfate 2.5 mg /3 mL (0.083 %) Solution For Nebulization 2.5 mg inhalation Q2H PRN PRN (Reason: SOB/Wheezing) 30 Days Qty: 90 1RF acetaminophen [Tylenol] 325 mg Tablet 650 mg PO Q6H PRN PRN (Reason: Pain 1-10 Or Fever >100.7) Qty: 0 0RF Mucus Relief ER 1,200 mg Tablet Extended Release 12hr 1,200 mg PO BID Qty: 14 0RF Changed albuterol sulfate 90 mcg/actuation HFA aerosol inhaler 2 puff inhalation Q6H Qty: 8.5 2RF Discontinued ipratropium-albuterol 0.5 mg-3 mg(2.5 mg base)/3 mL Solution For Nebulization 3 ml inhalation Q4H.RT PRN (Reason: shortness of breath or wheezing) Qty: 180 1RF sennosides-docusate sodium [Stool Softener-Stimulant Laxat] 8.6-50 mg Tablet 2 tab PO BID PRN PRN (Reason: Constipation) Qty: 0 0RF cefepime 2 gram recon soln 2 g IV .see below 7 Days Qty: 3 0RF Rx Instructions: 2gm cefepime to be given with dialysis MWF dx: bacteremia oxycodone 10 mg Tablet 10 mg PO BID PRN (Reason: Breakthrough Pain) 3 Days Qty: 6 0RF Referrals / Follow Up: Nehemiah Colmenares [Primary Care Provider] - Disposition Disposition (needs filled in before D/C Order can be placed): [facility] Charges/Coding Visit Charges Inpatient E&M: 46672 Disch Hosp
--- NOTE | 2022-06-28 17:02 | DIALYSIS ---
Patient completed dialysis x 3 hours as ordered this day. UF 2000 ml without issue. Patient appears peaceful, stable. Report given to Martha mello
--- NOTE | 2022-06-28 17:44 | NURSING ---
[facility] called to report pickup in 90 minutes.
[2022-06-28] MEDS: Nepro Liquid 120 ML LIQUID PO (17:58)
[2022-06-28] MEDS: Gabapentin 600 MG Tablet PO (17:58)
--- NOTE | 2022-06-28 19:04 | NURSING ---
Report called to REGGIE Goodwin at 1825.
== END 2022-06-28 18:40 | DRG 291 ==
LOC: ED 14:56 → PCU 15:50
PROVIDERS: Admitting Provider Internal Medicine; Emergency Provider Emergency Medicine; PCP Family Medicine; Visit Provider Internal Medicine
DX: I13.2 Hypertensive heart and chronic kidney disease with heart failure and with stage 5 chronic kidney disease, or end stage renal disease (principal); J96.21 Acute and chronic respiratory failure with hypoxia; N18.6 End stage renal disease; I50.32 Chronic diastolic (congestive) heart failure; E11.22 Type 2 diabetes mellitus with diabetic chronic kidney disease; I48.0 Paroxysmal atrial fibrillation; Z99.2 Dependence on renal dialysis; J44.9 Chronic obstructive pulmonary disease, unspecified; D63.1 Anemia in chronic kidney disease; E78.00 Pure hypercholesterolemia, unspecified; K21.9 Gastro-esophageal reflux disease without esophagitis; F41.9 Anxiety disorder, unspecified; F32.A Depression, unspecified; G89.4 Chronic pain syndrome; Z99.81 Dependence on supplemental oxygen; Z79.01 Long term (current) use of anticoagulants; Z79.891 Long term (current) use of opiate analgesic; Z79.899 Other long term (current) drug therapy; Z86.718 Personal history of other venous thrombosis and embolism; Z87.891 Personal history of nicotine dependence
CPT/HCPCS: 36415; 36600; 71045; 80048; 80202; 82803; 83735; 84100; 85025; 87040; 87426; 87633; 90937; 93005; 94002; 94003; 94640; 94762; 97162; 97166; 99251; 99285; 99406; J7030; J7040; A4216; G0257; G0463; J3490

== ENCOUNTER 2022-07-06 15:14 | Emergency (ER) | payer MEDICARE, MEDICAID, SELFPAY ==
[2022-07-06 15:16] VITALS: BP 121/77; PULSE 64; RESP 14; TEMP 36.6; O2SAT 97; BMI 22.1
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
[2022-07-06 16:34] LABS: Mucous, Urine 0 SEEN /hpf (<or=2+)
[2022-07-06 16:35] VITALS: BP 111/67; PULSE 65; O2SAT 100
[2022-07-06 16:55] LABS: Color, Urine Brown (Yellow); Glucose, Dipstick Normal (Normal); Ketone-Dipstick Negative (Negative); Leukocyte Esterase-Dipstick 100 /ul (Negative); Nitrite-Dipstick Positive (Negative); Occult Blood-Urine 250 /ul (Negative); Protein-Dipstick 100 mg/dl (Negative); Urine Clarity Sl. Cloudy (Clear); Urine Urobilinogen Normal (Normal)
[2022-07-06 16:58] LABS: Absolute Lymphocyte Count 0.37 X10^3/uL (0.83-4.51); Basophil# 0.06 X10^3/uL; Basophil% 0.8 % (0-1); Eosinophils% 1.4 % (0-5); Hematocrit 24.8 % (37-47); Hemoglobin 7.2 g/dL (12.0-15.0); Lymphocyte # 0.37 X10^3/ul (0.83-4.51); Mean Corpuscular Hgb 28.1 pg (27.0-32.0); Mean Corpuscular Volume 96.9 fL (81-99); Mean Platelet Vol. 9.1 fl (6.2-12.0); Monocyte% 10.8 % (0-10); NRBC Flagged by Analyzer 0 % (0-5); Neutrophil # 6.02 X10^3/uL (2.7-7.7); Neutrophil % 81.5 % (47-70); POSITIVE DIFFERENTIAL YES; Platelet Count 244 K/mm3 (150-450); RBC Distribution Width CV 16.5 % (11.6-14.6); RBC Distribution Width SD 58.9 fl (35.1-43.9); Red Blood Count 2.56 M/mm3 (4.2-5.4); White Blood Count 7.4 K/mm3 (4.4-11.0)
[2022-07-06 17:03] LABS: Differential Indicated SCAN CRITERIA MET
[2022-07-06 17:04] LABS: Urine Bilirubin Dipstick 3 mg/dL (Negative)
[2022-07-06 17:06] LABS: Red Blood Cells-Urine > 100 SEEN /hpf (0-5)
[2022-07-06 17:07] LABS: Anion Gap 2 (5-15); BUN 26 mg/dL (7-18); BUN/Creat Ratio 5.5 RATIO (10-20); Calcium,Total 9.9 mg/dL (8.5-10.1); Chloride 94 mmol/L (98-107); Creatinine, Serum 4.77 mg/dL (0.55-1.02); EST Glomerular Filtration Rate 10 mL/min (>60); Est Glom Filt Rate - Afr Amer 12 mL/min (>60); Estimated Creatinine Clearance 11.47 ml/min; Glucose 100 mg/dL (74-106); Sodium Level 132 mmol/L (136-145)
[2022-07-06 17:08] LABS: Bacteria 1+ /hpf (None Seen); Squamous Epithelial Cells - UA 0-5 SEEN /hpf (5-10); White Blood Cells 0-5 SEEN /hpf (0-5)
[2022-07-06 17:33] LABS: Differential Comment SCANNED
[2022-07-06 18:00] VITALS: BP 126/115; PULSE 65; RESP 19; O2SAT 100
[2022-07-06] MEDS: Ceftriaxone 1 GM/50 ML BAG IV (19:20)
== END 2022-07-06 20:19 | disposition home or self-care (01) ==
PROVIDERS: Emergency Provider Emergency Medicine; PCP Family Medicine; Visit Provider Emergency Medicine
DX: N30.00 Acute cystitis without hematuria (principal); I13.2 Hypertensive heart and chronic kidney disease with heart failure and with stage 5 chronic kidney disease, or end stage renal disease; Z99.2 Dependence on renal dialysis; J43.9 Emphysema, unspecified; I50.22 Chronic systolic (congestive) heart failure; E11.22 Type 2 diabetes mellitus with diabetic chronic kidney disease; N18.6 End stage renal disease; I48.0 Paroxysmal atrial fibrillation; E78.00 Pure hypercholesterolemia, unspecified; D63.1 Anemia in chronic kidney disease; G89.29 Other chronic pain; I25.2 Old myocardial infarction; F17.210 Nicotine dependence, cigarettes, uncomplicated; Z79.01 Long term (current) use of anticoagulants; Z79.899 Other long term (current) drug therapy; Z86.73 Personal history of transient ischemic attack (TIA), and cerebral infarction without residual deficits
CPT/HCPCS: 80048; 81001; 85025; 96365; 99285; P9612

== ENCOUNTER 2022-07-07 18:04 | Emergency (ER) | payer MEDICARE, MEDICAID, SELFPAY ==
[2022-07-07 18:07] VITALS: BP 137/64; PULSE 100; RESP 22; TEMP 37.9; O2SAT 95; BMI 23.6
[2022-07-07 18:10] VITALS: BP 129/55; PULSE 85; RESP 23; TEMP 37.9; O2SAT 95
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
--- NOTE | 2022-07-07 18:57 | CT_ITS ---
INDICATION: Abdominal pain -- IV PO Contrast. Additional clinical history: FEVER today, ESRD, dialysis, chf, afib, copd, htn, diabetes, cervical ca, htn, jim, csection, hyster, hernia repair EXAMINATION: CT ABDOMEN AND PELVIS with CONTRAST - CT Abdomen And Pelvis W/ Contrast Injection TECHNIQUE: Multiple axial images were obtained of the abdomen following administration of IV contrast. Planar reconstructions obtained. A radiation dose optimization technique was used for this scan. RADIATION DOSAGE (If Supplied By Facility): CTDIvol = ( 15.89 ) mGy, DLP = ( 768.20 ) mGycm IV Contrast dosage and agent: 100 mL Isovue-370 Oral contrast: Oral contrast administered COMPARISON: 12/13/2021, 04/20/2021. FINDINGS: LOWER THORAX: 1. Bibasilar atelectasis and areas of airspace consolidation particularly at the RIGHT lung base. Moderate to large RIGHT effusion, small to moderate LEFT effusion. 2. Cardiac contour is normal. Coronary vascular calcifications are present. No pericardial effusion. HEPATOBILIARY: Liver: Liver has normal size and configuration. There is a subcapsular low-density lesion/cyst along the anterior aspect of segment 4, measuring approximately 2.9 x 3.0 cm consistent with a cyst. No intrahepatic ductal dilatation.. Gallbladder: Absent. No ductal dilatation. Pancreas: Pancreas is normal size configuration and density. No mass is noted. Spleen: The spleen is homogeneous and normal in size. . BOWEL: Stomach: The stomach is normal in size configuration, no evidence of focal masses, abnormal calcifications. No hiatal hernia noted. Bowel: Large and small bowel loops have normal configuration there is a large amount retained stool throughout the colon, consistent with constipation. No mass is noted. No evidence diverticulitis. Appendix: Not clearly visualized.: GENITOURINARY: Adrenals: Both adrenal glands are normal in size. Kidneys: Kidneys are small, no evidence of obstructive uropathy. Bilateral benign renal cysts are present, largest is on the LEFT measuring approximately 1.7 x 1.9 cm.. Bladder: Bladder is obscured due to streak artifact from hip arthroplasties. Pelvic organs: Obscured due to streak artifact. No focal abnormality noted RETROPERITONEUM: Diffuse aortic calcifications without aneurysmal dilatation. IVC filter is noted in normal position. LYMPH NODES: No evidence of retroperitoneal or para-aortic masses fluid collections or adenopathy. PERITONEAL CAVITY: No ascites noted ANTERIOR ABDOMINAL WALL: Normal, no hernia identified. BONES AND SOFT TISSUES: Bilateral hip arthroplasties are present. There is a circumscribed soft tissue structure immediately anterior to the RIGHT hip which is obscured due to streak artifact, this is of uncertain etiology, measures approximately 4.4 x 4.1 cm (series 2: Image 107). This may represent of fluid within a distended joint. Mass lesion however is an additional consideration. Normal appearance of bony elements lumbar spine. OTHER: None CT/Abdomen/Pelvis WITH Contrast IMPRESSION: 1. Large amount of retained stool throughout the colon consistent with constipation. No evidence of masses or bowel obstruction. 2. No evidence diverticulitis. The appendix is not visualized however no evidence of appendicitis. 3. IVC filter in normal position. 4. Status post cholecystectomy without ductal dilatation. 5. Hepatic cyst. 6. Bilateral hip arthroplasties. There is significant streak artifact with obscuration of anatomic detail, however there is a circumscribed structure directly anterior to the RIGHT hip measuring 4.4 x 4.1 cm. This is of uncertain etiology, and distended joint fluid is a consideration however soft tissue mass is an additional consideration. There however is stable from examination of 04/20/2021. 7. No evidence of obstructive uropathy. Bilateral renal cysts are present. Electronically Signed: Peña Arguello MD at 21:11 EST ,
[2022-07-07 19:32] LABS: Absolute Lymphocyte Count 0.48 X10^3/uL (0.83-4.51); Basophil# 0.03 X10^3/uL; Basophil% 0.7 % (0-1); Eosinophil# 0.05 X10^3/uL; Eosinophils% 1.1 % (0-5); Hematocrit 22.7 % (37-47); Hemoglobin 6.6 g/dL (12.0-15.0); Lymphocyte # 0.48 X10^3/ul (0.83-4.51); Lymphocyte % 10.7 % (19-41); Mean Corp Hgb Conc 29.1 g/dL (32-36); Mean Corpuscular Hgb 27.6 pg (27.0-32.0); Mean Platelet Vol. 9.7 fl (6.2-12.0); Monocyte# 0.92 X10^3/uL; Monocyte% 20.5 % (0-10); NRBC Flagged by Analyzer 0 % (0-5); Neutrophil # 2.95 X10^3/uL (2.7-7.7); Neutrophil % 65.9 % (47-70); POSITIVE COUNT YES; POSITIVE DIFFERENTIAL YES; Platelet Count 185 K/mm3 (150-450); RBC Distribution Width CV 16.4 % (11.6-14.6); RBC Distribution Width SD 57.7 fl (35.1-43.9); Red Blood Count 2.39 M/mm3 (4.2-5.4); White Blood Count 4.5 K/mm3 (4.4-11.0)
[2022-07-07 20:05] VITALS: BP 126/86; PULSE 77; RESP 20; O2SAT 94
[2022-07-07 20:10] LABS: ALB/GLOB Ratio 0.6 RATIO (0.9-2.4); AST(SGOT) 29 U/L (15-37); Alanine Aminotransfer ALT/SGPT 17 U/L (13-56); Albumin, Serum 2.3 g/dL (3.2-5.0); Alkaline Phosphatase 98 U/L (45-117); Anion Gap 6 (5-15); BUN 22 mg/dL (7-18); BUN/Creat Ratio 5.6 RATIO (10-20); Calcium,Total 10.5 mg/dL (8.5-10.1); Chloride 95 mmol/L (98-107); Creatinine, Serum 3.93 mg/dL (0.55-1.02); EST Glomerular Filtration Rate 12 mL/min (>60); Est Glom Filt Rate - Afr Amer 15 mL/min (>60); Estimated Creatinine Clearance 13.44 ml/min; Glucose 82 mg/dL (74-106); Lipase 33 U/L (73-393); Potassium 3.8 mmol/L (3.5-5.1); Protein, Total 6.3 g/dL (6.4-8.2); Sodium Level 132 mmol/L (136-145)
[2022-07-07 20:14] LABS: International Normalized Ratio 1.3
[2022-07-07 20:15] LABS: Partial Thromboplast Time 36.1 Seconds (24.1-36.2)
[2022-07-07 20:17] LABS: Differential Indicated SCAN CRITERIA MET
[2022-07-07 20:21] LABS: Anisocytosis RARE; Hypochromasia 1+; Platelet Estimate ADEQUATE (ADEQ); Red Cell Morphology N CHROM NORMAL (NORM C&C)
[2022-07-07 20:22] LABS: Macrocytosis RARE
[2022-07-07 20:26] LABS: Lactic Acid 0.7 mmol/L (0.4-1.9)
[2022-07-07] MEDS: 0.9% Normal Saline 1,000 ML 1000 ML IV (20:27)
[2022-07-07] MEDS: Acetaminophen 325 MG Tablet 650 MG PO (20:27)
[2022-07-07 21:08] LABS: Bacteria 0 SEEN /hpf (None Seen); Mucous, Urine 0 SEEN /hpf (<or=2+); Squamous Epithelial Cells - UA 0 SEEN /hpf (5-10); White Blood Cells 0 SEEN /hpf (0-5)
[2022-07-07 21:18] LABS: Color, Urine Brown (Yellow); Glucose, Dipstick Normal (Normal); Ketone-Dipstick Negative (Negative); Leukocyte Esterase-Dipstick 100 /ul (Negative); Nitrite-Dipstick Negative (Negative); Occult Blood-Urine 250 /ul (Negative); Protein-Dipstick 100 mg/dl (Negative); Specific Gravity, Urine 1.015 (1.002-1.030); Urine Clarity Turbid (Clear); Urine Urobilinogen Normal (Normal)
[2022-07-07 21:25] LABS: Urine Bilirubin Dipstick 3 mg/dL (Negative)
[2022-07-07 21:33] LABS: Red Blood Cells-Urine > 100 SEEN /hpf (0-5)
[2022-07-07 22:05] VITALS: BP 118/74
[2022-07-07] MEDS: oxyCODONE 5 MG Tablet 10 MG PO (23:57)
[2022-07-07 23:58] VITALS: RESP 18
== END 2022-07-08 00:01 | disposition skilled nursing facility (03) ==
PROVIDERS: Emergency Provider Emergency Medicine; PCP Family Medicine; Visit Provider Emergency Medicine
DX: U07.1 COVID-19 (principal); I13.2 Hypertensive heart and chronic kidney disease with heart failure and with stage 5 chronic kidney disease, or end stage renal disease; Z99.2 Dependence on renal dialysis; J43.9 Emphysema, unspecified; I50.22 Chronic systolic (congestive) heart failure; E11.22 Type 2 diabetes mellitus with diabetic chronic kidney disease; N18.6 End stage renal disease; I48.0 Paroxysmal atrial fibrillation; I25.2 Old myocardial infarction; D63.1 Anemia in chronic kidney disease; E78.00 Pure hypercholesterolemia, unspecified; K59.00 Constipation, unspecified; Z79.01 Long term (current) use of anticoagulants; Z79.899 Other long term (current) drug therapy; Z86.73 Personal history of transient ischemic attack (TIA), and cerebral infarction without residual deficits; Z87.891 Personal history of nicotine dependence
CPT/HCPCS: 74177; 80053; 81001; 83605; 83690; 85025; 85610; 85730; 87040; 87086; 87428; 96360; 96361; 99285; J7030; Q9967

== ENCOUNTER 2022-07-13 04:28 | Inpatient (IN) | payer MEDICARE, MEDICAID, SELFPAY ==
[2022-07-13] VITALS (27 sets, daily range): BP systolic 109–197; BP diastolic 52–77; PULSE 59–97; RESP 12–26; TEMP 36.1–37.2; O2SAT 95–100; BMI 24.8; BMI 21.7
--- NOTE | 2022-07-13 04:46 | RAD_ITS ---
STUDY: X-RAY CHEST REASON FOR EXAM: Female, 72 years old. Shortness of breath. TECHNIQUE: Single AP portable view of the chest. COMPARISON: June 28, 2022. CT abdomen and pelvis July 07, 2022. FINDINGS: Right-sided large-bore catheter tip overlies the right atrium. Small to moderate right pleural effusion with hazy right mid and lower lung density compatible with subsegmental atelectasis or pneumonia. Small left pleural effusion. Left lower lobe density obscuring the left hemidiaphragm compatible with subsegmental atelectasis, pneumonia and/or effusion. There is mild cardiac enlargement. Normal mediastinum and farhan. Normal visualized pulmonary arteries. Normal visualized aortic arch and descending thoracic aorta. Normal visualized thoracic spine. Normal visualized ribs, clavicles, and shoulders. There is no demonstrated abnormality of the visualized soft tissue structures of the upper abdomen. RAD/Chest 1 View (Portable) IMPRESSION: Stable mild cardiomegaly. No significant change in bilateral pleural effusions right greater than left July 07, 2022. Right lower lobe subsegmental atelectasis or pneumonia. Left lower lobe density may represent subsegmental atelectasis or pneumonia. Electronically Signed: Tristin Cyr MD at 5:57 EST Reading Location ID and State: [id number] / , Service support ,
--- NOTE | 2022-07-13 04:46 | EKG12_ITS ---
Test Reason : SOB Blood Pressure : / mmHG Vent. Rate : 067 BPM Atrial Rate : 067 BPM P-R Int : 158 ms QRS Dur : 088 ms QT Int : 430 ms P-R-T Axes : 083 005 -16 degrees QTc Int : 454 ms Sinus rhythm with Premature atrial complexes Nonspecific ST and T wave abnormality Abnormal ECG Confirmed by TERE LEMON, JAN ([id number]), business editor BIRDIE TORRES ([id number]) on 07/17/2022 12:23:56 PM Referred By: Confirmed By:JAN CARRANZA MD
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
[2022-07-13] MEDS: Ipratropium/Albuterol Sulfate 3 ML AMPUL.NEB INHALATION ×2 (04:57→19:57)
[2022-07-13 05:03] LABS: Absolute Lymphocyte Count 2.21 X10^3/uL (0.83-4.51); Absolute Neutrophil Count 5.7 X10^3/uL (2.0-7.7); Basophil# 0.03 X10^3/uL; Basophil% 0.3 % (0-1); Eosinophil# 0.12 X10^3/uL; Eosinophils% 1.4 % (0-5); Hematocrit 19.8 % (37-47); Hemoglobin 5.9 g/dL (12.0-15.0); Lymphocyte # 2.21 X10^3/ul (0.83-4.51); Lymphocyte % 25.3 % (19-41); Mean Corp Hgb Conc 29.8 g/dL (32-36); Mean Corpuscular Hgb 28.2 pg (27.0-32.0); Mean Corpuscular Volume 94.7 fL (81-99); Mean Platelet Vol. 9.7 fl (6.2-12.0); Monocyte# 0.58 X10^3/uL; Monocyte% 6.6 % (0-10); NRBC Flagged by Analyzer 0.7 % (0-5); Neutrophil # 5.71 X10^3/uL (2.7-7.7); Neutrophil % 65.4 % (47-70); POSITIVE COUNT YES; Platelet Count 236 K/mm3 (150-450); RBC Distribution Width CV 16.6 % (11.6-14.6); RBC Distribution Width SD 57.4 fl (35.1-43.9); Red Blood Count 2.09 M/mm3 (4.2-5.4); White Blood Count 8.7 K/mm3 (4.4-11.0)
[2022-07-13 05:13] LABS: Differential Indicated SCAN CRITERIA MET
[2022-07-13 05:21] LABS: Allen Test Positive; Base Excess 6 mmol/L (-2 to +2); Bicarbonate 30.5 mmol/L (22-26); Blood Gas Specimen Type ART; FI02 35; O2 Delivery Device BiPAP; PO2 80 mmHG (75-100); SITE L Radial; SO2 96 % (95-99); Total Carbon Dioxide 32 mmol/L; pCO2 47.5 mmHg (35-45); pH 7.42 (7.35-7.45)
[2022-07-13 05:21] LABS: Anion Gap 6 (5-15); Anisocytosis 1+; BUN 49 mg/dL (7-18); BUN/Creat Ratio 8.2 RATIO (10-20); Calcium,Total 9.3 mg/dL (8.5-10.1); Chloride 97 mmol/L (98-107); EST Glomerular Filtration Rate 7 mL/min (>60); Est Glom Filt Rate - Afr Amer 9 mL/min (>60); Glucose 130 mg/dL (74-106); Potassium 4.1 mmol/L (3.5-5.1); Sodium Level 135 mmol/L (136-145); Troponin-I HS 56 pg/mL (3.0-54.0)
[2022-07-13 05:26] LABS: Lactic Acid 1.3 mmol/L (0.4-1.9)
[2022-07-13] MEDS: Albuterol 2.5 MG/3 ML VIAL.NEB. INHALATION ×4 (05:32→13:42)
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
[2022-07-13] MEDS: dexAMETHasone 10 MG/ML Vial 6 MG IV (06:54)
[2022-07-13 07:51] LABS: CPK Total, Creatine Kinase 65 U/L (26-192); LDH 243 U/L (84-246)
--- NOTE | 2022-07-13 08:09 | NURSING ---
EMERGENCY DOCUMENTATION 07/13/22
[2022-07-13 08:33] LABS: International Normalized Ratio 1.3; Prothrombin Time (Protime)PT. 15.8 SECONDS (11.7-14.9)
[2022-07-13 08:37] LABS: Fibrinogen 418 mg/dl (203-444)
[2022-07-13 08:40] LABS: Troponin-I HS 59 pg/mL (3.0-54.0)
[2022-07-13 08:54] LABS: Procalcitonin 0.26 ng/mL (0.00-0.09)
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
[2022-07-13] MEDS: guaiFENesin 1,200 MG Tablet 1200 MG PO ×2 (10:13→21:23)
[2022-07-13] MEDS: Calcium Acetate 667 MG Capsule PO (10:13)
[2022-07-13] MEDS: amLODIPine 10 MG Tablet PO (10:13)
[2022-07-13] MEDS: Carvedilol 25 MG Tablet PO ×2 (10:13→21:23)
[2022-07-13] MEDS: DULoxetine Hcl 60 MG Capsule PO (10:13)
[2022-07-13] MEDS: Dicyclomine 10 MG Capsule 20 MG PO (10:13)
[2022-07-13 11:44] LABS: Troponin-I HS 59 pg/mL (3.0-54.0)
--- NOTE | 2022-07-13 13:20 | CASEMGMT ---
Patient is from [facility]. SW spoke with patient and she confirmed her plan is to return to [facility] at discharge. SW will send upates to [facility]. Evy GONZALEZ
--- NOTE | 2022-07-13 13:39 | CPS ---
patient off bipap at time of visit. patient on 4 lpm. patient requested to stay off bipap at this time.
--- NOTE | 2022-07-13 13:39 | CASEMGMT ---
SW received notification from [facility] that patient will need insurance authorization before she can return. Plan: Return to [facility] when medically ready and insurance approval. Evy GONZALEZ
[2022-07-13] MEDS: hydrALAZINE 50 MG Tablet 100 MG PO ×2 (14:18→21:23)
[2022-07-13] MEDS: oxyCODONE 5 MG Tablet PO ×2 (14:19→21:23)
[2022-07-13] MEDS: Acetaminophen 325 MG Tablet 650 MG PO ×2 (14:19→21:22)
--- NOTE | 2022-07-13 16:20 | CASEMGMT ---
REGGIE FAN Readmission Review: Index: Pt has had three visits in the month of June. 06/06 thru 06/13 (COPD exac), 06/17 thru 06/23 (bacteremia, pseudomonas pneumonia, influenza A), and 06/25 thru 06/28/22 (fluid overload d/t ESRD). Pt with ESRD on chronic HD, ch diastolic CHF, chronic constipation, neuropathy, HTN, paroxysmal afib, anemia d/t renal disease, depression/anxiety, and COPD. Pt receives her HD from [facility] and had been on a MWF schedule with at 1135 chair time. Pt had been a resident of [facility] where she also had home O2 with 2l/min at rest and 4l/min with exertion from [facility] [place]. Pt was discharge the first two admissions to [facility] and requested to not return to [facility] on the third admission so was discharged to [facility]. Pt readmitted with continued SOB and increased symptoms. Pt readmitted with pneumonia. Yovanny Shankar RN CM
--- NOTE | 2022-07-13 17:16 | NURSING ---
Second unit PRBC verified w/ Soy PAREDES. Transfusion completed by dialysis nurse during dialysis.
--- NOTE | 2022-07-13 17:59 | PN.HOSP_ITS ---
Subjective Subjective Seen in her room on BiPAP, is beginning to feel better, slight cough nonproductive. Objective Data Objective Data Vital Signs: Vital Signs Temp Pulse Resp BP Pulse Ox O2 Del Method O2 Flow Rate 98.4 F 61 18 124/52 H 99 Nasal Cannula 4 07/13/22 16:52 07/13/22 16:52 07/13/22 16:52 07/13/22 16:52 07/13/22 16:52 07/13/22 16:52 07/13/22 16:52 FiO2 35 07/13/22 15:19 Oxygen Flow Rate (L/min) 4 Oxygen Delivery Method Nasal Cannula Weight: 66.7 kg Body Mass Index (BMI) 21.7 Intake & Output: Intake and Output for Last 24 Hours 07/11/22 07/12/22 07/13/22 23:59 23:59 23:59 Intake Total 800 / 800 Balance 800 / 800 Lab / Micro Data Result Diagrams: 07/13/22 04:50 07/13/22 04:50 Labs: Laboratory Results - last 24 hr 07/13/22 04:50: WBC 8.7, RBC 2.09 L, Hgb 5.9 L*, Hct 19.8 L, MCV 94.7, MCH 28.2, MCHC 29.8 L, RDW Std Deviation 57.4 H, RDW Coeff of Destiny 16.6 H, Plt Count 236, MPV 9.7, Immature Gran % (Auto) 1.000 H, Neut % (Auto) 65.4, Lymph % (Auto) 25.3, [place] % (Auto) 6.6, Eos % (Auto) 1.4, Baso % (Auto) 0.3, Absolute Neuts (auto) 5.7, Absolute Lymphs (auto) 2.21, Nucleated RBC % 0.7, Diff Path Review May foll, Anisocytosis 1+ 07/13/22 04:50: Sodium 135 L, Potassium 4.1, Chloride 97 L, Carbon Dioxide 32.0, Anion Gap 6, BUN 49 H, Creatinine 6.00 H, Estim Creat Clear Calc 8.80, Est GFR (MDRD) Af Amer 9 L, Est GFR (MDRD) Non-Af 7 L, BUN/Creatinine Ratio 8.2 L, Glucose 130 H, Calcium 9.3, Troponin I High Sens 56 H 07/13/22 04:50: Lactic Acid 1.3 07/13/22 04:50: B-Natriuretic Peptide 4166.8 H 07/13/22 04:50: PT 15.8 H, INR 1.3, Fibrinogen 418 07/13/22 04:50: Lactate Dehydrogenase 243, Total Creatine Kinase 65 07/13/22 05:05: Blood Type Cancelled, Antibody Screen Cancelled 07/13/22 05:40: Crossmatch See Detail 07/13/22 05:40: Blood Type A POSITIVE, Antibody Screen NEGATIVE 07/13/22 07:55: Procalcitonin 0.26 H 07/13/22 07:55: Troponin I High Sens 59 H 07/13/22 11:00: Troponin I High Sens 59 H Micro: Microbiology 07/13/22 05:25 Stool Stool Occult Blood (JOHNSON) - Final Occult Blood Positive ABG Data ABG results: ABG 07/13/22 05:13 Specimen Type ART Sample Site L Radial pH 7.42 Bicarbonate Actual 30.5 H Total CO2 32 Base Excess 6 H O2 Saturation 96 O2 % 35 ABG pCO2 47.5 H ABG pO2 80 Evens Test Positive O2 Delivery Device BiPAP Clinical Comments 14 8 35% Radiography Diagnostic Testing: Radiology Impression Chest X-Ray 07/13/22 04:46 IMPRESSION: Stable mild cardiomegaly. No significant change in bilateral pleural effusions right greater than left July 07, 2022. Right lower lobe subsegmental atelectasis or pneumonia. Left lower lobe density may represent subsegmental atelectasis or pneumonia. Electronically Signed: Tristin Cyr MD at 5:57 EST Reading Location ID and State: [id number] / , Service support , Rhythm Strip Rhythm Strip: Sinus Rhythm Rate: 70 Ectopy: PAC(s) Physical Exam Const alert and no apparent distress Constitutional Narrative: Oriented HEENT normocephalic and head/scalp atraumatic Eyes Eyes Narrative: EOM grossly intact, anicteric Neck supple Resp Resp Narrative: On BiPAP, diminished at the bases Cardio regular rate GI soft to palpation, non-tender and non-distended Extremity Extremity Narrative: No edema appreciated Neuro moves all extremities Neuro Narrative: No overt focal deficits appreciated Psych Psych Narrative: Cooperative Assessment & Plan Assessment/Plan (1) Anemia in chronic illness: (2) COVID-19: (3) Acute respiratory failure with hypoxia: (4) Acute blood loss anemia: (5) Occult GI bleeding: PLAN: Plan 72 female history of end-stage renal disease on dialysis, history of DVT, type 2 diabetes mellitus, COPD congestive heart failure, paroxysmal atrial fibrillation, hypertension who presented to [facility] 07/13/2022 with shortness of breath in light of a recent COVID diagnosis on 07/08. She was noted to have worsened hypoxia and was diagnosed with exacerbation of COPD. #Acute on chronic hypoxic respiratory failure secondary to acute on chronic COPD exacerbation secondary to COVID-19 infection and acute on chronic heart failure Doing much better on BiPAP Bronchodilators IV dexamethasone for her COVID No signs symptoms of bacterial infection, will hold off on antibiotics at this time #Acute on chronic anemia likely due to GI bleed Hemoglobin 5.6 on admission Transfused 2 units FOBT was positive Eliquis held On IV pantoprazole GI consulted We will recheck CBC #Paroxysmal atrial fibrillation On atenolol Eliquis held secondary to GI bleed #History of DVT Eliquis held due to hemoglobin of 5.6 of unclear etiology #End-stage renal disease on dialysis Sunday/Sunday/Sunday on an outpatient basis but will be dialyzed today per nephro and continue on a Sunday//Sunday schedule while in the hospital or more often if needed Nephrology consulted #GERD On IV PPI twice daily #DVT ppx: SCDs Nataliia Quezada MD
[2022-07-13 18:32] LABS: Absolute Lymphocyte Count 0.63 X10^3/uL (0.83-4.51); Absolute Neutrophil Count 3.5 X10^3/uL (2.0-7.7); Hematocrit 26.4 % (37-47); Hemoglobin 8.5 g/dL (12.0-15.0); Lymphocyte # 0.63 X10^3/ul (0.83-4.51); Lymphocyte % 14.5 % (19-41); Mean Corp Hgb Conc 32.2 g/dL (32-36); Mean Corpuscular Hgb 28.9 pg (27.0-32.0); Mean Corpuscular Volume 89.8 fL (81-99); Mean Platelet Vol. 9.3 fl (6.2-12.0); Monocyte# 0.15 X10^3/uL; Monocyte% 3.5 % (0-10); NRBC Flagged by Analyzer 0 % (0-5); Neutrophil # 3.51 X10^3/uL (2.7-7.7); Neutrophil % 81.1 % (47-70); Platelet Count 185 K/mm3 (150-450); RBC Distribution Width CV 15.8 % (11.6-14.6); RBC Distribution Width SD 50.8 fl (35.1-43.9); Red Blood Count 2.94 M/mm3 (4.2-5.4); White Blood Count 4.3 K/mm3 (4.4-11.0)
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
--- NOTE | 2022-07-13 19:37 | DIALYSIS ---
Hemodialysis x3.5 hours ended early at 1910 due to more frequent drops in HR to low 40s, ran on a 3K bath, tolerated fair, UF 1600mL, HR 40s-60s, received 1 unit PRBCs with tx, tolerated well, no s/s of transfusion reaction, accessed via right chest tunneled dialysis catheter, worked well, ODETTE AVF noted, +bruit +thrill, not yet in use
[2022-07-13] MEDS: Budesonide Respules 0.5 MG/2 ML AMPUL.NEB. INHALATION (19:57)
[2022-07-13] MEDS: Mirtazapine 15 MG Tablet 45 MG PO (21:23)
[2022-07-13] MEDS: Montelukast 10 MG Tablet PO (21:23)
[2022-07-14] VITALS (20 sets, daily range): BP systolic 94–147; BP diastolic 55–74; PULSE 60–89; RESP 18–22; TEMP 36.1–37.1; O2SAT 99–100; BMI 21.7
--- NOTE | 2022-07-14 05:25 | EKG12_ITS ---
Test Reason : bradycardia Blood Pressure : / mmHG Vent. Rate : 053 BPM Atrial Rate : 000 BPM P-R Int : 000 ms QRS Dur : 086 ms QT Int : 442 ms P-R-T Axes : 000 040 -39 degrees QTc Int : 414 ms Atrial fibrillation with slow ventricular response Nonspecific ST and T wave abnormality Abnormal ECG Confirmed by BRANDON LEMON, MACIE ([id number]), city editor BIRDIE TORRES ([id number]) on 07/19/2022 10:00:11 AM Referred By: Sarah Confirmed By:MACIE TAYLOR MD
[2022-07-14] MEDS: Nitroglycerin (INPATIENT USE) 0.4 MG TAB.SUBL SL ×2 (05:55→06:00)
[2022-07-14 06:32] LABS: Absolute Lymphocyte Count 1.11 X10^3/uL (0.83-4.51); Absolute Neutrophil Count 2.9 X10^3/uL (2.0-7.7); Basophil# 0.02 X10^3/uL; Basophil% 0.4 % (0-1); Eosinophil# 0.01 X10^3/uL; Eosinophils% 0.2 % (0-5); Hematocrit 24.3 % (37-47); Hemoglobin 7.7 g/dL (12.0-15.0); Lymphocyte # 1.11 X10^3/ul (0.83-4.51); Mean Corp Hgb Conc 31.7 g/dL (32-36); Mean Corpuscular Hgb 28.8 pg (27.0-32.0); Mean Platelet Vol. 9.5 fl (6.2-12.0); Monocyte# 0.55 X10^3/uL; Monocyte% 11.9 % (0-10); NRBC Flagged by Analyzer 0.9 % (0-5); Neutrophil # 2.89 X10^3/uL (2.7-7.7); Neutrophil % 62.4 % (47-70); Platelet Count 197 K/mm3 (150-450); Red Blood Count 2.67 M/mm3 (4.2-5.4); White Blood Count 4.6 K/mm3 (4.4-11.0)
[2022-07-14 06:48] LABS: International Normalized Ratio 1.3; Partial Thromboplast Time 28.7 Seconds (24.1-36.2); Prothrombin Time (Protime)PT. 15.5 SECONDS (11.7-14.9)
[2022-07-14] MEDS: hydrALAZINE 50 MG Tablet 100 MG PO ×2 (06:55→22:03)
[2022-07-14 07:01] LABS: Anion Gap 10 (5-15); BUN 34 mg/dL (7-18); BUN/Creat Ratio 8.7 RATIO (10-20); Calcium,Total 8.3 mg/dL (8.5-10.1); Chloride 100 mmol/L (98-107); Creatinine, Serum 3.92 mg/dL (0.55-1.02); EST Glomerular Filtration Rate 12 mL/min (>60); Est Glom Filt Rate - Afr Amer 15 mL/min (>60); Estimated Creatinine Clearance 13.96 ml/min; Glucose 65 mg/dL (74-106); Potassium 3.7 mmol/L (3.5-5.1); Sodium Level 136 mmol/L (136-145)
--- NOTE | 2022-07-14 07:02 | NURSING ---
pt noted with 7/10 chest pain, no referred pain or SOB, EKG and PRN nitro provided, pain relieved after 2 doses. pt remains on 4 L via NC at this time. pt remains chest pain free.
[2022-07-14] MEDS: Ipratropium/Albuterol Sulfate 3 ML AMPUL.NEB INHALATION ×2 (07:18→13:33)
[2022-07-14] MEDS: Budesonide Respules 0.5 MG/2 ML AMPUL.NEB. INHALATION (07:18)
[2022-07-14] MEDS: 0.9% Saline Lock 10 ML Syringe IV ×2 (08:28→21:22)
[2022-07-14] MEDS: Carvedilol 25 MG Tablet PO ×2 (08:32→22:03)
[2022-07-14] MEDS: DULoxetine Hcl 60 MG Capsule PO (08:32)
[2022-07-14] MEDS: guaiFENesin 1,200 MG Tablet 1200 MG PO ×2 (08:32→22:03)
[2022-07-14] MEDS: Dicyclomine 10 MG Capsule 20 MG PO (08:32)
[2022-07-14] MEDS: Calcium Acetate 667 MG Capsule PO (08:32)
[2022-07-14] MEDS: amLODIPine 10 MG Tablet PO (08:33)
[2022-07-14] MEDS: dexAMETHasone 10 MG/ML Vial 6 MG IV (08:33)
--- NOTE | 2022-07-14 09:17 | PCM.PN.HOSP ---
Subjective Subjective Reports feeling somewhat tired but breathing is much better, awaiting EGD. Had bowel movements that she does not pay any mind if she is having blood in her stool or not but does not think she did. No abdominal pain, no nausea Objective Data Objective Data Vital Signs: Vital Signs Temp Pulse Resp BP Pulse Ox O2 Del Method O2 Flow Rate 98.2 F 72 18 118/56 L 100 Nasal Cannula 4 07/14/22 08:25 07/14/22 08:25 07/14/22 08:25 07/14/22 08:25 07/14/22 08:51 07/14/22 08:51 07/14/22 08:51 FiO2 35 07/13/22 15:19 Oxygen Flow Rate (L/min) 4 Oxygen Delivery Method Nasal Cannula Weight: 66.7 kg Body Mass Index (BMI) 21.7 Intake & Output: Intake and Output for Last 24 Hours 07/12/22 07/13/22 07/14/22 23:59 23:59 23:59 Intake Total 1310 / 1360 50 / 50 Output Total 1600 / 1600 0 / 0 Balance -290 / -240 50 / 50 Lab / Micro Data Result Diagrams: 07/14/22 06:10 07/14/22 06:10 Labs: Laboratory Results - last 24 hr 07/13/22 05:40: Crossmatch See Detail 07/13/22 11:00: Troponin I High Sens 59 H 07/13/22 18:21: WBC 4.3 L, RBC 2.94 L, Hgb 8.5 L, Hct 26.4 L, MCV 89.8 D, MCH 28.9, MCHC 32.2 D, RDW Std Deviation 50.8 H, RDW Coeff of Destiny 15.8 H, Plt Count 185, MPV 9.3, Immature Gran % (Auto) 0.900, Neut % (Auto) 81.1 H, Lymph % (Auto) 14.5 L, [place] % (Auto) 3.5, Eos % (Auto) 0.0, Baso % (Auto) 0.0, Absolute Neuts (auto) 3.5, Absolute Lymphs (auto) 0.63 L, Nucleated RBC % 0 07/14/22 06:10: WBC 4.6, RBC 2.67 L, Hgb 7.7 L, Hct 24.3 L, MCV 91.0, MCH 28.8, MCHC 31.7 L, RDW Std Deviation 56.0 H, RDW Coeff of Destiny 17.0 H, Plt Count 197, MPV 9.5, Immature Gran % (Auto) 1.100 H, Neut % (Auto) 62.4, Lymph % (Auto) 24.0, [place] % (Auto) 11.9 H, Eos % (Auto) 0.2, Baso % (Auto) 0.4, Absolute Neuts (auto) 2.9, Absolute Lymphs (auto) 1.11, Nucleated RBC % 0.9 07/14/22 06:10: Sodium 136, Potassium 3.7, Chloride 100, Carbon Dioxide 26.0, Anion Gap 10, BUN 34 H, Creatinine 3.92 H, Estim Creat Clear Calc 13.96, Est GFR (MDRD) Af Amer 15 L, Est GFR (MDRD) Non-Af 12 L, BUN/Creatinine Ratio 8.7 L, Glucose 65 L, Calcium 8.3 L 07/14/22 06:10: PT 15.5 H, INR 1.3, APTT 28.7 Micro: Microbiology 07/13/22 05:25 Stool Stool Occult Blood (JOHNSON) - Final Occult Blood Positive Rhythm Strip Rhythm Strip: Sinus Rhythm Rate: 70 Ectopy: PAC(s) Physical Exam Const alert and no apparent distress Constitutional Narrative: Oriented HEENT normocephalic and head/scalp atraumatic Eyes Eyes Narrative: EOM grossly intact, anicteric Neck supple Resp Resp Narrative: Scattered wheezes, normal respiratory effort Cardio regular rate GI soft to palpation, non-tender and non-distended Extremity Extremity Narrative: No edema appreciated Neuro moves all extremities Neuro Narrative: No overt focal deficits appreciated Psych Psych Narrative: Cooperative Assessment & Plan Assessment/Plan (1) Anemia in chronic illness: (2) COVID-19: (3) Acute respiratory failure with hypoxia: (4) Acute blood loss anemia: (5) Occult GI bleeding: PLAN: Plan 72 female history of end-stage renal disease on dialysis, history of DVT, type 2 diabetes mellitus, COPD congestive heart failure, paroxysmal atrial fibrillation, hypertension who presented to [facility] 07/13/2022 with shortness of breath in light of a recent COVID diagnosis on 07/08. She was noted to have worsened hypoxia and was diagnosed with exacerbation of COPD. #Acute on chronic hypoxic respiratory failure secondary to acute on chronic COPD exacerbation secondary to COVID-19 infection and acute on chronic heart failure Doing much better on BiPAP Bronchodilators IV dexamethasone for her COVID No signs symptoms of bacterial infection, will hold off on antibiotics at this time 07/14: Significantly improving on dexamethasone and presently just on nasal cannula #Acute on chronic anemia likely due to GI bleed Hemoglobin 5.6 on admission Transfused 2 units FOBT was positive Eliquis held On IV pantoprazole GI consulted We will recheck CBC 07/14: Patient had EGD, if negative may need colonoscopy and capsule endoscopy. Hemoglobin 7.7 today #Paroxysmal atrial fibrillation On atenolol Eliquis held secondary to GI bleed #History of DVT Eliquis held due to hemoglobin of 5.6 of unclear etiology #End-stage renal disease on dialysis Sunday/Sunday/Sunday on an outpatient basis but will be dialyzed today per nephro and continue on a Sunday//Sunday schedule while in the hospital or more often if needed Nephrology consulted #GERD On IV PPI twice daily #DVT ppx: SCDs Nataliia Quezada MD Charges/Coding Visit Charges Inpatient E&M: 95219 Subs Hosp L2
--- NOTE | 2022-07-14 09:22 | PN.RENAL_ITS ---
Documented by User: JOE Raman 07/14/22 09:33 Subjective Subjective Following for ESRD Patient is sitting up in bed, watching TV. Reports feeling better today. Denies any chest pain or shortness of breath. No overnight events Objective Data Objective Data Vital Signs: Vital Signs Temp Pulse Resp BP Pulse Ox O2 Del Method O2 Flow Rate 98.2 F 72 18 118/56 L 100 Nasal Cannula 4 07/14/22 08:25 07/14/22 08:25 07/14/22 08:25 07/14/22 08:25 07/14/22 08:51 07/14/22 08:51 07/14/22 08:51 FiO2 35 07/13/22 15:19 Oxygen Flow Rate (L/min) 4 Oxygen Delivery Method Nasal Cannula Weight: 66.7 kg Body Mass Index (BMI) 21.7 Intake & Output: Intake and Output for Last 24 Hours 07/12/22 07/13/22 07/14/22 23:59 23:59 23:59 Intake Total 1310 / 1360 50 / 50 Output Total 1600 / 1600 0 / 0 Balance -290 / -240 50 / 50 Lab / Micro Data Result Diagrams: 07/14/22 06:10 07/14/22 06:10 Labs: Laboratory Results - last 24 hr 07/13/22 05:40: Crossmatch See Detail 07/13/22 11:00: Troponin I High Sens 59 H 07/13/22 18:21: WBC 4.3 L, RBC 2.94 L, Hgb 8.5 L, Hct 26.4 L, MCV 89.8 D, MCH 28.9, MCHC 32.2 D, RDW Std Deviation 50.8 H, RDW Coeff of Destiny 15.8 H, Plt Count 185, MPV 9.3, Immature Gran % (Auto) 0.900, Neut % (Auto) 81.1 H, Lymph % (Auto) 14.5 L, [place] % (Auto) 3.5, Eos % (Auto) 0.0, Baso % (Auto) 0.0, Absolute Neuts (auto) 3.5, Absolute Lymphs (auto) 0.63 L, Nucleated RBC % 0 07/14/22 06:10: WBC 4.6, RBC 2.67 L, Hgb 7.7 L, Hct 24.3 L, MCV 91.0, MCH 28.8, MCHC 31.7 L, RDW Std Deviation 56.0 H, RDW Coeff of Destiny 17.0 H, Plt Count 197, MPV 9.5, Immature Gran % (Auto) 1.100 H, Neut % (Auto) 62.4, Lymph % (Auto) 24.0, [place] % (Auto) 11.9 H, Eos % (Auto) 0.2, Baso % (Auto) 0.4, Absolute Neuts (auto) 2.9, Absolute Lymphs (auto) 1.11, Nucleated RBC % 0.9 07/14/22 06:10: Sodium 136, Potassium 3.7, Chloride 100, Carbon Dioxide 26.0, Anion Gap 10, BUN 34 H, Creatinine 3.92 H, Estim Creat Clear Calc 13.96, Est GFR (MDRD) Af Amer 15 L, Est GFR (MDRD) Non-Af 12 L, BUN/Creatinine Ratio 8.7 L, Glucose 65 L, Calcium 8.3 L 07/14/22 06:10: PT 15.5 H, INR 1.3, APTT 28.7 Micro: Microbiology 07/13/22 05:25 Stool Stool Occult Blood (JOHNSON) - Final Occult Blood Positive Rhythm Strip Rhythm Strip: Sinus Rhythm Rate: 70 Ectopy: PAC(s) Physical Exam Narrative General:?Alert and oriented, no apparent distress Heart: Normal S1, S2. Lungs: Diminished lung sounds diminished bases. No rhonchi or rales Abdomen:?Normal bowel sounds Extremity: No edema. Tunneled HD catheter dressing clean, dry and intact Assessment & Plan Assessment/Plan (1) End-stage renal disease on hemodialysis: (2) Acute respiratory failure with hypoxia: (3) COVID-19: (4) Anemia in chronic illness: (5) Atrial fibrillation: PLAN: Plan - ESRD: Currently dialyzes at [facility], Sunday, , Sun, Sunday schedule. Patient underwent hemodialysis yesterday with 1 L UF. She is having EGD today. We will plan for dialysis either today or tomorrow. Reviewed admission chest x-ray. -Hemoglobin was 5.9, improved status post 2 units PRBC. Hemoglobin 7.7 today. GI following. To have EGD and possible colonoscopy versus capsule study. On IV pantoprazole. -Eliquis on hold due to hemoglobin of 5.6. -per patient breathing improved. On Decadron, aerosols. O2 at 4 L nasal cannula -Blood pressures acceptable on amlodipine, carvedilol, hydralazine. Patient also receives midodrine during dialysis for history of intradialytic hypotension. Hold BP meds morning of dialysis. Documented by User: Dr. Brittani Byrne MD 07/14/22 16:44 Objective Data Lab / Micro Data Result Diagrams: 07/14/22 06:10 07/14/22 06:10 Assessment & Plan Assessment/Plan (1) End-stage renal disease on hemodialysis: (2) Acute respiratory failure with hypoxia: (3) COVID-19: (4) Anemia in chronic illness: (5) Atrial fibrillation: PLAN: Plan - ESRD: Currently dialyzes at [facility], Sunday, , Sun, Sunday schedule. Patient underwent hemodialysis yesterday with 1 L UF. She is having EGD today. We will plan for dialysis either today or tomorrow. Reviewed admission chest x-ray. -Hemoglobin was 5.9, improved status post 2 units PRBC. Hemoglobin 7.7 today. GI following. To have EGD and possible colonoscopy versus capsule study. On IV pantoprazole. -Eliquis on hold due to hemoglobin of 5.6. -per patient breathing improved. On Decadron, aerosols. O2 at 4 L nasal cannula -Blood pressures acceptable on amlodipine, carvedilol, hydralazine. Patient also receives midodrine during dialysis for history of intradialytic hypotension. Hold BP meds morning of dialysis. Nephrology attending addendum: The patient was seen and examined independently. Nurse practitioner's note reflects my evaluation and management decision. The patient is less dyspneic today. The patient will be kept on TTS dialysis schedule while she is admitted to the hospital. No need for dialysis today. Next dialysis will be tomorrow. Shan Felix MD.
[2022-07-14] MEDS: Calcium Carbonate 500 MG Tablet PO (09:47)
[2022-07-14] MEDS: Acetaminophen 325 MG Tablet 650 MG PO ×2 (09:47→18:39)
[2022-07-14] MEDS: oxyCODONE 5 MG Tablet PO ×2 (09:48→18:39)
--- NOTE | 2022-07-14 10:11 | CASEMGMT ---
SW went updates to [facility] and asked that pre-cert be started as patient may be ready over the weekend. Plan: d/c back to [facility] pending pre-cert. Evy GONZALEZ
[2022-07-14 11:47] LABS: Pathologist Review Reviewed
[2022-07-14] MEDS: Mirtazapine 15 MG Tablet 45 MG PO (22:03)
[2022-07-14] MEDS: Montelukast 10 MG Tablet PO (22:03)
[2022-07-15] VITALS (12 sets, daily range): BP systolic 100–143; BP diastolic 41–77; PULSE 47–69; RESP 12–20; TEMP 36.4–37.4; O2SAT 97–100
--- NOTE | 2022-07-15 04:14 | EKG12_ITS ---
Test Reason : CP Blood Pressure : / mmHG Vent. Rate : 078 BPM Atrial Rate : 000 BPM P-R Int : 000 ms QRS Dur : 086 ms QT Int : 394 ms P-R-T Axes : 000 041 -36 degrees QTc Int : 449 ms Atrial fibrillation with premature ventricular or aberrantly conducted complexes Nonspecific ST and T wave abnormality Abnormal ECG Confirmed by BRANDON LEMON, MACIE ([id number]), script editor BIRDIE TORRES ([id number]) on 07/19/2022 10:01:11 AM Referred By: Confirmed By:MACIE TALYOR MD
[2022-07-15] MEDS: Dicyclomine 10 MG Capsule 20 MG PO ×2 (05:41→17:44)
[2022-07-15] MEDS: Budesonide Respules 0.5 MG/2 ML AMPUL.NEB. INHALATION (07:34)
[2022-07-15] MEDS: Ipratropium/Albuterol Sulfate 3 ML AMPUL.NEB INHALATION (07:34)
[2022-07-15] MEDS: Calcium Acetate 667 MG Capsule PO ×2 (08:12→17:44)
[2022-07-15] MEDS: DULoxetine Hcl 60 MG Capsule PO (08:13)
[2022-07-15] MEDS: guaiFENesin 1,200 MG Tablet 1200 MG PO ×2 (08:13→21:37)
[2022-07-15] MEDS: amLODIPine 10 MG Tablet PO (08:13)
[2022-07-15] MEDS: dexAMETHasone 10 MG/ML Vial 6 MG IV (08:14)
[2022-07-15] MEDS: Carvedilol 25 MG Tablet PO ×2 (08:14→21:37)
[2022-07-15] MEDS: 0.9% Saline Lock 10 ML Syringe IV ×2 (08:16→21:36)
--- NOTE | 2022-07-15 08:46 | PN_ITS ---
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 No sign of bleeding overnight. Objective Data Objective Data Vital Signs: Vital Signs Temp Pulse Resp BP Pulse Ox O2 Del Method O2 Flow Rate 99.3 F H 57 L 18 127/56 H 100 Nasal Cannula 4 07/15/22 07:00 07/15/22 07:00 07/15/22 07:00 07/15/22 07:00 07/15/22 07:00 07/15/22 08:05 07/15/22 08:05 FiO2 35 07/15/22 04:45 Oxygen Flow Rate (L/min) 4 Oxygen Delivery Method Nasal Cannula Weight: 147 lb 0.773 oz Body Mass Index (BMI) 21.7 Intake & Output: Intake and Output for Last 24 Hours 07/13/22 07/14/22 07/15/22 23:59 23:59 23:59 Intake Total 1310 / 1360 450 / 690 290 / 290 Output Total 1600 / 1600 0 / 0 0 / 0 Balance -290 / -240 450 / 690 290 / 290 Lab / Micro Data Result Diagrams: 07/14/22 06:10 07/14/22 06:10 Labs: Laboratory Results - last 24 hr 07/13/22 04:50: Diff Path Review Reviewed Micro: Microbiology 07/13/22 04:50 Blood Culture (Wb) #2 - Anticubital Left Blood Culture - Preliminary No growth in 48 hours. 07/13/22 05:05 Blood Culture (Wb) - Anticubital Left Blood Culture - Preliminary No growth in 48 hours. 07/13/22 05:25 Stool Stool Occult Blood (JOHNSON) - Final Occult Blood Positive Rhythm Strip Rhythm Strip: Sinus Rhythm Rate: 70 Ectopy: PAC(s) Physical Exam Narrative General:?Alert and oriented, no apparent distress Heart: Normal S1, S2. Lungs: Diminished lung sounds diminished bases. No rhonchi or rales Abdomen:?Normal bowel sounds Extremity: No edema. Tunneled HD catheter dressing clean, dry and intact Assessment & Plan Assessment/Plan (1) Acute blood loss anemia: PLAN: Recommend to trend hemoglobin. Check iron studies such as ferritin, iron, TIBC, transferrin and reticulocyte count. Patient will likely need a colonoscopy as an outpatient and likely a capsule endoscopy to make sure she do es not have any more angiodysplasias. Regular diet as tolerated. Charges/Coding Visit Charges Inpatient E&M: 52245 Subs Hosp L2
[2022-07-15 12:27] LABS: Platelet Count 247 K/mm3 (150-450); RET-HE 27.4 pg (30-35); Reticulocyte Count 3.53 % (0.5-1.5)
[2022-07-15 12:29] LABS: Absolute Lymphocyte Count 0.53 X10^3/uL (0.83-4.51); Absolute Neutrophil Count 5.7 X10^3/uL (2.0-7.7); Basophil# 0.02 X10^3/uL; Basophil% 0.3 % (0-1); Eosinophil# 0.01 X10^3/uL; Eosinophils% 0.2 % (0-5); Hemoglobin 7.6 g/dL (12.0-15.0); Lymphocyte # 0.53 X10^3/ul (0.83-4.51); Lymphocyte % 8.1 % (19-41); Mean Corp Hgb Conc 30.4 g/dL (32-36); Mean Corpuscular Volume 92.3 fL (81-99); Mean Platelet Vol. 9.4 fl (6.2-12.0); Monocyte# 0.17 X10^3/uL; Monocyte% 2.6 % (0-10); NRBC Flagged by Analyzer 0.5 % (0-5); Neutrophil # 5.69 X10^3/uL (2.7-7.7); Neutrophil % 87.3 % (47-70); POSITIVE DIFFERENTIAL YES; Platelet Count 247 K/mm3 (150-450); RBC Distribution Width CV 16.9 % (11.6-14.6); RBC Distribution Width SD 56.3 fl (35.1-43.9); Red Blood Count 2.71 M/mm3 (4.2-5.4); White Blood Count 6.5 K/mm3 (4.4-11.0)
[2022-07-15 12:30] LABS: Differential Indicated SCAN CRITERIA MET
[2022-07-15 13:05] LABS: Anion Gap 9 (5-15); BUN 50 mg/dL (7-18); BUN/Creat Ratio 8.3 RATIO (10-20); Calcium,Total 8.5 mg/dL (8.5-10.1); Chloride 101 mmol/L (98-107); Creatinine, Serum 6.01 mg/dL (0.55-1.02); EST Glomerular Filtration Rate 7 mL/min (>60); Est Glom Filt Rate - Afr Amer 9 mL/min (>60); Glucose 164 mg/dL (74-106); Potassium 4.1 mmol/L (3.5-5.1); Sodium Level 137 mmol/L (136-145)
[2022-07-15 13:07] LABS: Ferritin 1700 ng/mL (8-252); Iron 55 ug/dL (50-170); Iron Binding Capacity,Total 142 ug/dL (250-450)
[2022-07-15 13:12] LABS: Anisocytosis 1+; Platelet Estimate ADEQUATE (ADEQ); Polychromasia 1+
[2022-07-15] MEDS: oxyCODONE 5 MG Tablet PO ×2 (15:17→21:38)
[2022-07-15] MEDS: Acetaminophen 325 MG Tablet 650 MG PO ×2 (15:17→21:37)
--- NOTE | 2022-07-15 15:23 | PN.HOSP_ITS ---
Subjective Subjective Follow-up COVID and GI bleed. Feeling well today, no complaints Objective Data Objective Data Vital Signs: Vital Signs Temp Pulse Resp BP Pulse Ox O2 Del Method O2 Flow Rate 98.5 F 67 18 121/65 H 98 Nasal Cannula 4 07/15/22 15:20 07/15/22 15:20 07/15/22 15:20 07/15/22 15:20 07/15/22 15:20 07/15/22 15:20 07/15/22 15:20 FiO2 35 07/15/22 04:45 Oxygen Flow Rate (L/min) 4 Oxygen Delivery Method Nasal Cannula Weight: 66.7 kg Body Mass Index (BMI) 21.7 Intake & Output: Intake and Output for Last 24 Hours 07/13/22 07/14/22 07/15/22 23:59 23:59 23:59 Intake Total 1310 / 1360 450 / 690 640 / 640 Output Total 1600 / 1600 0 / 0 0 / 0 Balance -290 / -240 450 / 690 640 / 640 Lab / Micro Data Result Diagrams: 07/15/22 13:27 07/15/22 13:27 Labs: Laboratory Results - last 24 hr 07/15/22 09:07: Retic Count 3.53 H, Immature Retic Fraction 32.10 H, Retic Hgb Equivalent 27.4 L 07/15/22 12:15: Iron 55, TIBC 142 L, Ferritin 1700 H 07/15/22 13:27: WBC 6.5, RBC 2.71 L, Hgb 7.6 L, Hct 25.0 L, MCV 92.3, MCH 28.0, MCHC 30.4 L, RDW Std Deviation 56.3 H, RDW Coeff of Destiny 16.9 H, Plt Count 247, MPV 9.4, Immature Gran % (Auto) 1.500 H, Neut % (Auto) 87.3 H, Lymph % (Auto) 8.1 L, [place] % (Auto) 2.6, Eos % (Auto) 0.2, Baso % (Auto) 0.3, Absolute Neuts (auto) 5.7, Absolute Lymphs (auto) 0.53 L, Nucleated RBC % 0.5, Platelet Estimate ADEQUATE, Polychromasia 1+, Anisocytosis 1+ 07/15/22 13:27: Sodium 137, Potassium 4.1, Chloride 101, Carbon Dioxide 27.0, Anion Gap 9, BUN 50 H, Creatinine 6.01 H, Estim Creat Clear Calc 9.10, Est GFR (MDRD) Af Amer 9 L, Est GFR (MDRD) Non-Af 7 L, BUN/Creatinine Ratio 8.3 L, Glucose 164 H, Calcium 8.5 Micro: Microbiology 07/13/22 04:50 Blood Culture (Wb) #2 - Anticubital Left Blood Culture - Preliminary No growth in 48 hours. 07/13/22 05:05 Blood Culture (Wb) - Anticubital Left Blood Culture - Preliminary No growth in 48 hours. 07/13/22 05:25 Stool Stool Occult Blood (JOHNSON) - Final Occult Blood Positive Rhythm Strip Rhythm Strip: Sinus Rhythm Rate: 70 Ectopy: PAC(s) Physical Exam Const alert and no apparent distress Constitutional Narrative: Oriented HEENT normocephalic and head/scalp atraumatic Eyes Eyes Narrative: EOM grossly intact, anicteric Neck supple Resp normal respiratory effort Cardio regular rate GI non-distended Extremity Extremity Narrative: Moves all extremities Neuro Neuro Narrative: No overt focal deficits appreciated Psych Psych Narrative: Cooperative Assessment & Plan Assessment/Plan (1) Anemia in chronic illness: (2) COVID-19: (3) Acute respiratory failure with hypoxia: (4) Acute blood loss anemia: (5) Occult GI bleeding: PLAN: Plan 72 female history of end-stage renal disease on dialysis, history of DVT, type 2 diabetes mellitus, COPD congestive heart failure, paroxysmal atrial fibrillation, hypertension who presented to [facility] 07/13/2022 with shortness of breath in light of a recent COVID diagnosis on 07/08. She was noted to have worsened hypoxia and was diagnosed with exacerbation of COPD. #Acute on chronic hypoxic respiratory failure secondary to acute on chronic COPD exacerbation secondary to COVID-19 infection and acute on chronic heart failure Doing much better on BiPAP Bronchodilators IV dexamethasone for her COVID No signs symptoms of bacterial infection, will hold off on antibiotics at this time 07/14: Significantly improving on dexamethasone and presently just on nasal cannula 07/15: Doing very well, stable for transfer back to [facility] #Acute on chronic anemia likely due to GI bleed Hemoglobin 5.6 on admission Transfused 2 units FOBT was positive Eliquis held On IV pantoprazole GI consulted We will recheck CBC 07/14: Patient had EGD, if negative may need colonoscopy and capsule endoscopy. Hemoglobin 7.7 today 07/15: Patient stable, back to [facility] when pre-CERT obtained #Paroxysmal atrial fibrillation On atenolol Eliquis held secondary to GI bleed #History of DVT Eliquis held due to hemoglobin of 5.6 of unclear etiology #End-stage renal disease on dialysis Sunday/Sunday/Sunday on an outpatient basis but will be dialyzed today per nephro and continue on a Sunday//Sunday schedule while in the hospital or more often if needed Nephrology consulted #GERD On IV PPI twice daily #DVT ppx: SCDs Nataliia Quezada MD Charges/Coding Visit Charges Inpatient E&M: 97954 Subs Hosp L2
--- NOTE | 2022-07-15 15:35 | DIALYSIS ---
hemodialysis completed x 3.5 HRs. Access via right chest Hd cath. Net UF 1500ml. pt stable post tx. See HD flowsheet on chart.
[2022-07-15] MEDS: Mirtazapine 15 MG Tablet 45 MG PO (21:37)
[2022-07-15] MEDS: Montelukast 10 MG Tablet PO (21:37)
[2022-07-15] MEDS: hydrALAZINE 50 MG Tablet 100 MG PO (21:38)
[2022-07-16] VITALS (15 sets, daily range): BP systolic 107–149; BP diastolic 47–78; PULSE 54–67; RESP 12–18; TEMP 36.4–37.3; O2SAT 97–100
[2022-07-16] MEDS: oxyCODONE 5 MG Tablet PO ×4 (06:22→21:15)
[2022-07-16] MEDS: Acetaminophen 325 MG Tablet 650 MG PO ×2 (06:22→17:06)
[2022-07-16] MEDS: Dicyclomine 10 MG Capsule 20 MG PO ×3 (06:23→17:06)
[2022-07-16] MEDS: hydrALAZINE 50 MG Tablet 100 MG PO ×3 (06:23→21:14)
[2022-07-16 07:34] LABS: Absolute Lymphocyte Count 1.46 X10^3/uL (0.83-4.51); Absolute Neutrophil Count 5.6 X10^3/uL (2.0-7.7); Basophil# 0.02 X10^3/uL; Basophil% 0.2 % (0-1); Eosinophil# 0.02 X10^3/uL; Eosinophils% 0.2 % (0-5); Hematocrit 25.7 % (37-47); Hemoglobin 7.9 g/dL (12.0-15.0); Lymphocyte # 1.46 X10^3/ul (0.83-4.51); Lymphocyte % 17.8 % (19-41); Mean Corp Hgb Conc 30.7 g/dL (32-36); Mean Corpuscular Hgb 28.4 pg (27.0-32.0); Mean Corpuscular Volume 92.4 fL (81-99); Mean Platelet Vol. 9.1 fl (6.2-12.0); NRBC Flagged by Analyzer 0.9 % (0-5); Neutrophil # 5.61 X10^3/uL (2.7-7.7); Neutrophil % 68.5 % (47-70); Platelet Count 250 K/mm3 (150-450); RBC Distribution Width CV 16.6 % (11.6-14.6); RBC Distribution Width SD 55.6 fl (35.1-43.9); Red Blood Count 2.78 M/mm3 (4.2-5.4); White Blood Count 8.2 K/mm3 (4.4-11.0)
[2022-07-16 07:56] LABS: Anion Gap 6 (5-15); BUN 21 mg/dL (7-18); BUN/Creat Ratio 6.1 RATIO (10-20); Calcium,Total 8.6 mg/dL (8.5-10.1); Chloride 103 mmol/L (98-107); Creatinine, Serum 3.44 mg/dL (0.55-1.02); EST Glomerular Filtration Rate 14 mL/min (>60); Est Glom Filt Rate - Afr Amer 17 mL/min (>60); Glucose 73 mg/dL (74-106); Potassium 3.6 mmol/L (3.5-5.1); Sodium Level 139 mmol/L (136-145)
--- NOTE | 2022-07-16 08:05 | PN.HOSP_ITS ---
Subjective Subjective Follow-up acute on chronic respiratory failure secondary to COVID and GI bleed. Hemoglobin stable. Respiratory status improved Objective Data Objective Data Vital Signs: Vital Signs Temp Pulse Resp BP Pulse Ox O2 Del Method O2 Flow Rate 97.8 F 66 18 149/78 H 100 Nasal Cannula 4 07/16/22 06:19 07/16/22 06:23 07/16/22 06:19 07/16/22 06:19 07/16/22 06:19 07/16/22 06:19 07/16/22 06:19 FiO2 35 07/16/22 03:23 Oxygen Flow Rate (L/min) 4 Oxygen Delivery Method Nasal Cannula Weight: 66.7 kg Body Mass Index (BMI) 21.7 Intake & Output: Intake and Output for Last 24 Hours 07/14/22 07/15/22 07/16/22 23:59 23:59 23:59 Intake Total 450 / 690 990 / 1140 210 / 210 Output Total 0 / 0 1500 / 1600 100 / 100 Balance 450 / 690 -510 / -460 110 / 110 Lab / Micro Data Result Diagrams: 07/16/22 06:20 07/16/22 06:20 Labs: Laboratory Results - last 24 hr 07/15/22 09:07: Retic Count 3.53 H, Immature Retic Fraction 32.10 H, Retic Hgb Equivalent 27.4 L 07/15/22 12:15: Iron 55, TIBC 142 L, Ferritin 1700 H 07/15/22 13:27: WBC 6.5, RBC 2.71 L, Hgb 7.6 L, Hct 25.0 L, MCV 92.3, MCH 28.0, MCHC 30.4 L, RDW Std Deviation 56.3 H, RDW Coeff of Destiny 16.9 H, Plt Count 247, MPV 9.4, Immature Gran % (Auto) 1.500 H, Neut % (Auto) 87.3 H, Lymph % (Auto) 8.1 L, [place] % (Auto) 2.6, Eos % (Auto) 0.2, Baso % (Auto) 0.3, Absolute Neuts (auto) 5.7, Absolute Lymphs (auto) 0.53 L, Nucleated RBC % 0.5, Platelet Estimate ADEQUATE, Polychromasia 1+, Anisocytosis 1+ 07/15/22 13:27: Sodium 137, Potassium 4.1, Chloride 101, Carbon Dioxide 27.0, Anion Gap 9, BUN 50 H, Creatinine 6.01 H, Estim Creat Clear Calc 9.10, Est GFR (MDRD) Af Amer 9 L, Est GFR (MDRD) Non-Af 7 L, BUN/Creatinine Ratio 8.3 L, Glucose 164 H, Calcium 8.5 07/16/22 06:20: WBC 8.2, RBC 2.78 L, Hgb 7.9 L, Hct 25.7 L, MCV 92.4, MCH 28.4, MCHC 30.7 L, RDW Std Deviation 55.6 H, RDW Coeff of Destiny 16.6 H, Plt Count 250, MPV 9.1, Immature Gran % (Auto) 2.300 H, Neut % (Auto) 68.5, Lymph % (Auto) 17.8 L, [place] % (Auto) 11.0 H, Eos % (Auto) 0.2, Baso % (Auto) 0.2, Absolute Neuts (auto) 5.6, Absolute Lymphs (auto) 1.46, Nucleated RBC % 0.9 07/16/22 06:20: Sodium 139, Potassium 3.6, Chloride 103, Carbon Dioxide 30.0, Anion Gap 6, BUN 21 H, Creatinine 3.44 H, Estim Creat Clear Calc 15.90, Est GFR (MDRD) Af Amer 17 L, Est GFR (MDRD) Non-Af 14 L, BUN/Creatinine Ratio 6.1 L, Glucose 73 L, Calcium 8.6 Micro: Microbiology 07/13/22 04:50 Blood Culture (Wb) #2 - Anticubital Left Blood Culture - Preliminary No growth in 48 hours. 07/13/22 05:05 Blood Culture (Wb) - Anticubital Left Blood Culture - Preliminary No growth in 48 hours. 07/13/22 05:25 Stool Stool Occult Blood (JOHNSON) - Final Occult Blood Positive Rhythm Strip Rhythm Strip: Sinus Rhythm Rate: 70 Ectopy: PAC(s) Physical Exam Const alert and no apparent distress Constitutional Narrative: Oriented HEENT normocephalic and head/scalp atraumatic Eyes Eyes Narrative: EOM grossly intact, anicteric Neck supple Resp normal respiratory effort and clear to auscultation bilaterally Cardio regular rate GI soft to palpation, non-tender and non-distended Extremity Extremity Narrative: Moves all extremities Neuro Neuro Narrative: No overt focal deficits appreciated Psych Psych Narrative: Cooperative Assessment & Plan Assessment/Plan (1) Anemia in chronic illness: (2) COVID-19: (3) Acute respiratory failure with hypoxia: (4) Acute blood loss anemia: (5) Occult GI bleeding: PLAN: Plan 72 female history of end-stage renal disease on dialysis, type 2 diabetes mellitus, COPD congestive heart failure, paroxysmal atrial fibrillation, hypertension who presented to [facility] 07/13/2022 with shortness of breath in light of a recent COVID diagnosis on 07/08. She was noted to have worsened hypoxia and was diagnosed with exacerbation of COPD. #Acute on chronic hypoxic respiratory failure secondary to acute on chronic COPD exacerbation secondary to COVID-19 infection and acute on chronic heart failure Doing much better on BiPAP Bronchodilators IV dexamethasone for her COVID No signs symptoms of bacterial infection, will hold off on antibiotics at this time 07/14: Significantly improving on dexamethasone and presently just on nasal cannula 07/15: Doing very well, stable for transfer back to [facility] 07/16: Continue inhalers and dexamethasone, doing very well, back to SNF once available #Acute on chronic anemia likely due to GI bleed Hemoglobin 5.6 on admission Transfused 2 units FOBT was positive Eliquis held On IV pantoprazole GI consulted We will recheck CBC 07/14: Patient had EGD, if negative may need colonoscopy and capsule endoscopy. Hemoglobin 7.7 today 07/15: Patient stable, back to [facility] when pre-CERT obtained 07/16: PPI switched to p.o., hemoglobin stable #Paroxysmal atrial fibrillation On atenolol Eliquis held secondary to GI bleed #End-stage renal disease on dialysis Sunday/Sunday/Sunday on an outpatient basis but will be dialyzed today per nephro and continue on a Sunday//Sunday schedule while in the hospital or more often if needed Nephrology consulted #GERD IV PPI changed to p.o. Protonix #DVT ppx: SCDs Nataliia Quezada MD Charges/Coding Visit Charges Inpatient E&M: 83225 Subs Hosp L2
[2022-07-16] MEDS: guaiFENesin 1,200 MG Tablet 1200 MG PO ×2 (08:14→21:15)
[2022-07-16] MEDS: 0.9% Saline Lock 10 ML Syringe IV (08:14)
[2022-07-16] MEDS: DULoxetine Hcl 60 MG Capsule PO (08:15)
[2022-07-16] MEDS: amLODIPine 10 MG Tablet PO (08:15)
[2022-07-16] MEDS: Calcium Acetate 667 MG Capsule PO ×3 (08:15→17:06)
[2022-07-16] MEDS: Carvedilol 25 MG Tablet PO (08:15)
[2022-07-16] MEDS: dexAMETHasone 10 MG/ML Vial 6 MG IV (08:16)
[2022-07-16] MEDS: Pantoprazole Sodium 40 MG Tablet PO ×2 (11:22→21:15)
--- NOTE | 2022-07-16 16:56 | PN_ITS ---
Subjective Subjective Patient is doing well without any breathing difficulties. She has not seen any signs of GI bleeding. Objective Data Objective Data Vital Signs: Vital Signs Temp Pulse Resp BP Pulse Ox O2 Del Method O2 Flow Rate 97.8 F 67 18 107/47 L 97 Nasal Cannula 4 07/16/22 15:25 07/16/22 15:25 07/16/22 15:25 07/16/22 15:25 07/16/22 15:25 07/16/22 15:25 07/16/22 15:25 FiO2 35 07/16/22 03:23 Oxygen Flow Rate (L/min) 4 Oxygen Delivery Method Nasal Cannula Weight: 147 lb 0.773 oz Body Mass Index (BMI) 21.7 Intake & Output: Intake and Output for Last 24 Hours 07/14/22 07/15/22 07/16/22 23:59 23:59 23:59 Intake Total 450 / 690 990 / 1140 450 / 450 Output Total 0 / 0 1500 / 1600 100 / 100 Balance 450 / 690 -510 / -460 350 / 350 Lab / Micro Data Result Diagrams: 07/16/22 06:20 07/16/22 06:20 Labs: Laboratory Results - last 24 hr 07/16/22 06:20: WBC 8.2, RBC 2.78 L, Hgb 7.9 L, Hct 25.7 L, MCV 92.4, MCH 28.4, MCHC 30.7 L, RDW Std Deviation 55.6 H, RDW Coeff of Destiny 16.6 H, Plt Count 250, MPV 9.1, Immature Gran % (Auto) 2.300 H, Neut % (Auto) 68.5, Lymph % (Auto) 17.8 L, [place] % (Auto) 11.0 H, Eos % (Auto) 0.2, Baso % (Auto) 0.2, Absolute Neuts (auto) 5.6, Absolute Lymphs (auto) 1.46, Nucleated RBC % 0.9 07/16/22 06:20: Sodium 139, Potassium 3.6, Chloride 103, Carbon Dioxide 30.0, Anion Gap 6, BUN 21 H, Creatinine 3.44 H, Estim Creat Clear Calc 15.90, Est GFR (MDRD) Af Amer 17 L, Est GFR (MDRD) Non-Af 14 L, BUN/Creatinine Ratio 6.1 L, Glucose 73 L, Calcium 8.6 Micro: Microbiology 07/13/22 04:50 Blood Culture (Wb) #2 - Anticubital Left Blood Culture - Preliminary No growth in 48 hours. 07/13/22 05:05 Blood Culture (Wb) - Anticubital Left Blood Culture - Preliminary No growth in 48 hours. 07/13/22 05:25 Stool Stool Occult Blood (JOHNSON) - Final Occult Blood Positive Rhythm Strip Rhythm Strip: Sinus Rhythm Rate: 70 Ectopy: PAC(s) Physical Exam Const alert and no apparent distress Constitutional Narrative: Oriented HEENT normocephalic and head/scalp atraumatic Eyes Eyes Narrative: EOM grossly intact, anicteric Neck supple Resp normal respiratory effort and clear to auscultation bilaterally Cardio regular rate GI soft to palpation, non-tender and non-distended Extremity Extremity Narrative: Moves all extremities Neuro Neuro Narrative: No overt focal deficits appreciated Psych Psych Narrative: Cooperative Assessment & Plan Assessment/Plan (1) Acute blood loss anemia: PLAN: Recommend to trend hemoglobin. Check iron studies such as ferritin, iron, TIBC, transferrin and reticulocyte count. Patient will likely need a colonoscopy as an outpatient and likely a capsule endoscopy to make sure she does not have any more angiodysplasias. Regular diet as tolerated. Charges/Coding Visit Charges Inpatient E&M: 70200 Subs Hosp L2
--- NOTE | 2022-07-16 17:19 | PCM.PN.REN ---
Subjective Subjective no new events Objective Data Objective Data Vital Signs: Vital Signs Temp Pulse Resp BP Pulse Ox O2 Del Method O2 Flow Rate 97.8 F 67 18 107/47 L 97 Nasal Cannula 4 07/16/22 15:25 07/16/22 15:25 07/16/22 15:25 07/16/22 15:25 07/16/22 15:25 07/16/22 15:25 07/16/22 15:25 FiO2 35 07/16/22 03:23 Oxygen Flow Rate (L/min) 4 Oxygen Delivery Method Nasal Cannula Weight: 66.7 kg Body Mass Index (BMI) 21.7 Intake & Output: Intake and Output for Last 24 Hours 07/14/22 07/15/22 07/16/22 23:59 23:59 23:59 Intake Total 450 / 690 990 / 1140 690 / 690 Output Total 0 / 0 1500 / 1600 100 / 100 Balance 450 / 690 -510 / -460 590 / 590 Lab / Micro Data Result Diagrams: 07/16/22 06:20 07/16/22 06:20 Labs: Laboratory Results - last 24 hr 07/16/22 06:20: WBC 8.2, RBC 2.78 L, Hgb 7.9 L, Hct 25.7 L, MCV 92.4, MCH 28.4, MCHC 30.7 L, RDW Std Deviation 55.6 H, RDW Coeff of Destiny 16.6 H, Plt Count 250, MPV 9.1, Immature Gran % (Auto) 2.300 H, Neut % (Auto) 68.5, Lymph % (Auto) 17.8 L, [place] % (Auto) 11.0 H, Eos % (Auto) 0.2, Baso % (Auto) 0.2, Absolute Neuts (auto) 5.6, Absolute Lymphs (auto) 1.46, Nucleated RBC % 0.9 07/16/22 06:20: Sodium 139, Potassium 3.6, Chloride 103, Carbon Dioxide 30.0, Anion Gap 6, BUN 21 H, Creatinine 3.44 H, Estim Creat Clear Calc 15.90, Est GFR (MDRD) Af Amer 17 L, Est GFR (MDRD) Non-Af 14 L, BUN/Creatinine Ratio 6.1 L, Glucose 73 L, Calcium 8.6 Micro: Microbiology 07/13/22 04:50 Blood Culture (Wb) #2 - Anticubital Left Blood Culture - Preliminary No growth in 48 hours. 07/13/22 05:05 Blood Culture (Wb) - Anticubital Left Blood Culture - Preliminary No growth in 48 hours. 07/13/22 05:25 Stool Stool Occult Blood (JOHNSON) - Final Occult Blood Positive Rhythm Strip Rhythm Strip: Sinus Rhythm Rate: 70 Ectopy: PAC(s) Physical Exam Narrative General:?Alert and oriented, no apparent distress Heart: Normal S1, S2. Lungs: Diminished lung sounds diminished bases. No rhonchi or rales Abdomen:?Normal bowel sounds Extremity: No edema. Tunneled HD catheter dressing clean, dry and intact Assessment & Plan Assessment/Plan (1) End-stage renal disease on hemodialysis: (2) Acute respiratory failure with hypoxia: (3) COVID-19: (4) Anemia in chronic illness: (5) Atrial fibrillation: PLAN: Plan - ESRD: Currently dialyzes at [facility], Sunday, , Sun, Sunday schedule. -Hemoglobin was 5.9, improved status post 2 units PRBC. -Eliquis on hold due to hemoglobin of 5.6.
[2022-07-16] MEDS: Ipratropium/Albuterol Sulfate 3 ML AMPUL.NEB INHALATION (20:53)
[2022-07-16] MEDS: Budesonide Respules 0.5 MG/2 ML AMPUL.NEB. INHALATION (20:53)
[2022-07-16] MEDS: Mirtazapine 15 MG Tablet 45 MG PO (21:14)
[2022-07-16] MEDS: Montelukast 10 MG Tablet PO (21:15)
[2022-07-17] VITALS (10 sets, daily range): BP systolic 127–140; BP diastolic 63–72; PULSE 60–72; RESP 12–20; TEMP 36.2–37.6; O2SAT 98–100
[2022-07-17] MEDS: oxyCODONE 5 MG Tablet PO ×2 (05:34→10:54)
[2022-07-17] MEDS: Acetaminophen 325 MG Tablet 650 MG PO (05:34)
[2022-07-17] MEDS: hydrALAZINE 50 MG Tablet 100 MG PO (05:34)
[2022-07-17] MEDS: Dicyclomine 10 MG Capsule 20 MG PO ×2 (05:35→10:54)
[2022-07-17 06:38] LABS: Absolute Lymphocyte Count 1.43 X10^3/uL (0.83-4.51); Absolute Neutrophil Count 5.9 X10^3/uL (2.0-7.7); Basophil# 0.03 X10^3/uL; Basophil% 0.3 % (0-1); Eosinophil# 0.03 X10^3/uL; Eosinophils% 0.3 % (0-5); Hematocrit 26.7 % (37-47); Hemoglobin 8.1 g/dL (12.0-15.0); Lymphocyte # 1.43 X10^3/ul (0.83-4.51); Lymphocyte % 16.5 % (19-41); Mean Corp Hgb Conc 30.3 g/dL (32-36); Mean Corpuscular Hgb 28.2 pg (27.0-32.0); Mean Platelet Vol. 9.2 fl (6.2-12.0); Monocyte# 1.03 X10^3/uL; Monocyte% 11.9 % (0-10); NRBC Flagged by Analyzer 0.6 % (0-5); Neutrophil # 5.94 X10^3/uL (2.7-7.7); Neutrophil % 68.4 % (47-70); Platelet Count 244 K/mm3 (150-450); RBC Distribution Width CV 16.6 % (11.6-14.6); RBC Distribution Width SD 55.5 fl (35.1-43.9); Red Blood Count 2.87 M/mm3 (4.2-5.4); White Blood Count 8.7 K/mm3 (4.4-11.0)
[2022-07-17 07:09] LABS: Anion Gap 10 (5-15); BUN 34 mg/dL (7-18); BUN/Creat Ratio 6.6 RATIO (10-20); Calcium,Total 8.5 mg/dL (8.5-10.1); Chloride 103 mmol/L (98-107); Creatinine, Serum 5.15 mg/dL (0.55-1.02); EST Glomerular Filtration Rate 9 mL/min (>60); Est Glom Filt Rate - Afr Amer 11 mL/min (>60); Estimated Creatinine Clearance 10.62 ml/min; Glucose 79 mg/dL (74-106); Potassium 3.8 mmol/L (3.5-5.1); Sodium Level 140 mmol/L (136-145)
[2022-07-17] MEDS: Ipratropium/Albuterol Sulfate 3 ML AMPUL.NEB INHALATION (07:35)
[2022-07-17] MEDS: Budesonide Respules 0.5 MG/2 ML AMPUL.NEB. INHALATION (07:36)
--- NOTE | 2022-07-17 09:08 | CASEMGMT ---
SW sent updates to [facility]. Pre-cert was started on Sunday. Plan: d/c back to [facility] pending pre-cert. Evy GONZALEZ
--- NOTE | 2022-07-17 09:32 | CASEMGMT ---
SW received notification that patient was approved to return to [facility]. MARIA GUADALUPE notified physician and RN. Evy GONZALEZ
--- NOTE | 2022-07-17 10:34 | CASEMGMT ---
REGGIE FAN called [facility] at [facility] to verify HD schedule. Per [facility]era she is MWF and they could complete HD today if she returns before 1400. REGGIE FAN updated SW.
--- NOTE | 2022-07-17 10:38 | TREXTCAR_ITS ---
Diet Diet Order/Speech Therapy: 07/15/22 06:51 Diet: Cardiac - Heart Healthy Type of Dietary Supplement:: Nepro Is pt able to select menu?: Yes Diet Comments: matos flavor w/ meals Routine Orders/Code Status Routine Lab Work: CBC and BMP Code Status: Full Code Therapies Physical Therapy: Eval and Treat Occupational Therapy: Eval and Treat Problem/Diagnosis (1) End-stage renal disease on hemodialysis: Status: Chronic Code(s): N18.6 - End stage renal disease; Z99.2 - Dependence on renal dialysis (2) Acute respiratory failure with hypoxia: Status: Acute Code(s): J96.01 - Acute respiratory failure with hypoxia (3) COVID-19: Status: Acute Code(s): U07.1 - COVID-19 (4) Anemia in chronic illness: Status: Chronic Code(s): D63.8 - Anemia in other chronic diseases classified elsewhere (5) Atrial fibrillation: Status: Chronic Code(s): I48.91 - Unspecified atrial fibrillation Allergies/Procedures Done in Hospital Allergies No Known Allergies Allergy (Verified 07/07/22 18:05) Procedures: None Type of Care/Length of Stay Estimated LOS: Convalescent Care Less Than 30 days Type of Care Needed: Skilled Rehab Potential: Fair Prognosis: Fair Additional Orders/Day of Discharge Day of Discharge: 07/17/22 Dietary and Speech Recommendations Dietitian Recommendations/Changes: Will continue liberalized cardiac diet for now given risk for acute malnutrition; recommend fluid restriction as needed. If adequate PO intake at meals is established, recommend transition to renal- general diet. Will adjust ONS and provide matos flavor Nepro TID w/ meals instead of medpass. Discharge Plan Admission Admit Date/Time: 07/13/22 06:04 Attending Provider: Sixto Montoya Primary Care Provider: Nehemiah Colmenares Consulting Providers: Malu Smith ; Soraida Sears ; Nataliia Quezada Instructions Additional Instructions / Restrictions: Patient will likely need a colonoscopy as an outpatient and likely a capsule endoscopy Restart eliquis in 5 days Discharge Orders/Prescriptions Prescriptions: New pantoprazole 40 mg Tablet,Delayed Release (Dr/Ec) 40 mg PO BID Qty: 0 0RF dexamethasone 6 mg tablet 6 mg PO DAILY Qty: 7 0RF Continued hydralazine 100 MG tablet 100 mg PO TID amlodipine 10 mg Tablet 10 mg PO DAILY calcium acetate(phosphat bind) 667 mg Capsule 667 mg PO TIDCM mirtazapine 45 mg Tablet 45 mg PO QHS dicyclomine 20 mg tablet 20 mg PO TID Label Comments: Take 1 tablet by mouth three times daily before meals. gabapentin 600 mg tablet 600 mg PO MOWEFR Label Comments: 1 TABLET BY MOUTH (3P-6P AFTER DIALYSIS) DX: gabapentin 300 mg capsule 300 mg PO SUTUTHSA Label Comments: 1 CAPSULE BY MOUTH (3P-6P) DX:E RenaPlex-D 800 mcg-12.5 mg -2,000 unit tablet 1 tab PO MOWEFR Label Comments: TAKE 1 TABLET BY MOUTH EVERY DAY (ON DIALYSIS DAYS, TAKE AFTER DIALYSIS TREATMENT) montelukast [Singulair] 10 mg Tablet 10 mg PO QHS lactulose 10 gram/15 mL Solution 30 ml PO QHS PRN (Reason: Constipation) carvedilol 25 mg Tablet 25 mg PO BID Qty: 0 0RF midodrine 10 mg tablet 10 mg PO MOWEFR fluticasone propion-salmeterol [Advair Diskus] 500-50 mcg/dose Blister With Device 1 inh INHALATION BID Spiriva Respimat 2.5 mcg/actuation Mist 2 puff INHALATION DAILY duloxetine 60 mg capsule,delayed release(DR/EC) 60 mg PO DAILY polyethylene glycol 3350 [Miralax] 17 gram/dose powder 17 g PO DAILY albuterol sulfate 2.5 mg /3 mL (0.083 %) Solution For Nebulization 2.5 mg inhalation Q2H PRN PRN (Reason: SOB/Wheezing) 30 Days Qty: 90 1RF acetaminophen [Tylenol] 325 mg Tablet 650 mg PO Q6H PRN PRN (Reason: Pain 1-10 Or Fever >100.7) Qty: 0 0RF Mucus Relief ER 1,200 mg Tablet Extended Release 12hr 1,200 mg PO BID Qty: 14 0RF Nepro Carb Steady 0.08 gram-1.8 kcal/mL Liquid 120 ml PO 4X/DAY Qty: 0 0RF oxycodone 5 mg Tablet 10 mg PO Q4H PRN PRN (Reason: Pain Score 4-10) 5 Days Qty: 15 0RF albuterol sulfate 90 mcg/actuation HFA aerosol inhaler 2 puff inhalation Q6H Qty: 8.5 2RF sulfamethoxazole-trimethoprim 800-160 mg tablet 0.5 tab PO DAILY Qty: 3 0RF Held Eliquis 2.5 mg Tablet 2.5 mg PO BID Hold Instructions: Resume on 07/22/22. prednisone 5 mg tablet 5 mg PO DAILY Hold Instructions: Resume on 07/24/22. Restart when decadron is completed Discontinued omeprazole 20 mg capsule,delayed release(DR/EC) 20 mg PO DAILY Label Comments: 1 CAPSULE BY MOUTH ONCECDAILY DX: / NURSE TO REORDER Referrals / Follow Up: Nehemiah Colmenares [Primary Care Provider] - Disposition Disposition (needs filled in before D/C Order can be placed): [facility]
--- NOTE | 2022-07-17 10:38 | CASEMGMT ---
MARIA GUADALUPE was informed patient will be discharged today. MARIA GUADALUPE called [facility] and requested transport via wheelchair [place] [facility] [id number]. MARIA GUADALUPE called [facility] and asked if SW could set up transport with the reference number. MARIA GUADALUPE was told [facility] has to put it in the portal before they can do anything with it. Evy Paredes EXECUTIVE ADMINISTRATOR CARLOS
--- NOTE | 2022-07-17 10:48 | PHA.DC.MR ---
Pharmacy Service has performed discharge medication reconciliation for this patient. The patient's discharge medication list was reviewed for discrepancies and discrepancies were resolved. Home Medications hydralazine 100 mg tablet 100 mg PO TID BLOOD PRESSURE 03/31/20 amlodipine 10 mg tablet 10 mg PO DAILY blood pressure 11/30/20 calcium acetate(phosphat bind) 667 mg capsule 667 mg PO TIDCM health maintenance 11/30/20 apixaban 2.5 mg tablet (Eliquis) 2.5 mg PO BID anticoagulant 01/08/21 mirtazapine 45 mg tablet 45 mg PO QHS INSOMNIA 01/08/21 dicyclomine 20 mg tablet 20 mg PO TID 02/26/21 gabapentin 300 mg capsule 300 mg PO SUTUTHSA NERVE PAIN 10/05/21 gabapentin 600 mg tablet 600 mg PO MOWEFR NERVE PAIN 10/05/21 vit B,C-folic ac 800 mcg-zinc 12.5 mg-selen-D3 2,000 unit-vit E tablet (RenaPlex-D) 1 tab PO MOWEFR DIALYSIS 10/05/21 lactulose 10 gram/15 mL oral solution 30 ml PO QHS PRN Constipation 10/25/21 montelukast 10 mg tablet (Singulair) 10 mg PO QHS ALLERGIES 10/25/21 carvedilol 25 mg tablet 25 mg PO BID #0 tabs 12/21/21 midodrine 10 mg tablet 10 mg PO MOWEFR 02/23/22 prednisone 5 mg tablet 5 mg PO DAILY STEROID 02/23/22 duloxetine 60 mg capsule,delayed release 60 mg PO DAILY DEPRESSION 05/19/22 fluticasone 500 mcg-salmeterol 50 mcg/dose blistr powdr for inhalation (Advair Diskus) 1 inh inhalation BID 05/19/22 polyethylene glycol 3350 17 gram/dose oral powder (Miralax) 17 g PO DAILY CONSTIPATION 05/19/22 tiotropium bromide 2.5 mcg/actuation mist for inhalation (Spiriva Respimat) 2 puff inhalation DAILY 05/19/22 albuterol sulfate 2.5 mg/3 mL (0.083 %) solution for nebulization 2.5 mg (3 mL) inhalation Q2H PRN PRN SOB/Wheezing 30 days #90 mL 05/20/22 acetaminophen 325 mg tablet (Tylenol) 650 mg PO Q6H PRN PRN Pain 1-10 Or Fever >100.7 #0 tabs 06/13/22 guaifenesin 1,200 mg tablet, extended release 12 hr (Mucus Relief ER) 1,200 mg PO BID #14 tabs 06/13/22 albuterol sulfate 90 mcg/actuation aerosol inhaler 2 puff inhalation Q6H #8.5 grams 06/28/22 nut.tx.imp.renal fxn,lac-reduc 0.08 gram-1.8 kcal/mL oral liquid (Nepro Carb Steady) 120 ml PO 4X/DAY #0 mL 06/28/22 oxycodone 5 mg tablet 10 mg PO Q4H PRN PRN Pain Score 4-10 5 days #15 tabs 06/28/22 sulfamethoxazole 800 mg-trimethoprim 160 mg tablet 0.5 tab PO DAILY #3 TABLETS 07/06/22 dexamethasone 6 mg tablet 6 mg PO DAILY #7 tabs 07/17/22 pantoprazole 40 mg tablet,delayed release 40 mg PO BID #0 tabs 07/17/22
[2022-07-17] MEDS: dexAMETHasone 10 MG/ML Vial 6 MG IV (10:51)
[2022-07-17] MEDS: 0.9% Saline Lock 10 ML Syringe IV (10:53)
[2022-07-17] MEDS: Carvedilol 25 MG Tablet PO (10:54)
[2022-07-17] MEDS: Pantoprazole Sodium 40 MG Tablet PO (10:54)
[2022-07-17] MEDS: Midodrine HCl 5 MG Tablet 10 MG PO (10:54)
[2022-07-17] MEDS: amLODIPine 10 MG Tablet PO (10:54)
[2022-07-17] MEDS: guaiFENesin 1,200 MG Tablet 1200 MG PO (10:54)
[2022-07-17] MEDS: Calcium Acetate 667 MG Capsule PO (10:54)
[2022-07-17] MEDS: DULoxetine Hcl 60 MG Capsule PO (10:54)
--- NOTE | 2022-07-17 11:02 | CASEMGMT ---
MARIA GUADALUPE called [facility] and spoke with Brian. Brian checked to see if [facility] put request in portal. Brian then took patient's information and trip information. MARIA [place] [id number]. Patient will get picked up via wheelchair by [facility] at 11:45. MARIA GUADALUPE sent orders and picker operator time to [facility]. MARIA GUADALUPE notified RN and departmental secretary. MARIA GUADALUPE also called patient's son and left him a voice mail letting him know this information. Plan: d/c back to [facility] under skilled level of care. [facility] transported by wheelchair. This transport was set up through [facility]. Evy Paredes WINE BLENDER CARLOS
--- NOTE | 2022-07-17 11:28 | CASEMGMT ---
Patient's son Jose called SW. MARIA GUADALUPE let Jose know patient will be discharged back to [facility] today. Evy GONZALEZ
--- NOTE | 2022-07-17 11:37 | NURSING ---
Report called to Karen at [facility].
--- NOTE | 2022-07-17 12:39 | PN_ITS ---
Subjective Subjective Patient is doing very well and is scheduled to get transferred back to the longterm. She has not had any more signs of bleeding. She denies any melena. She is tolerating hemodialysis without any problems. Objective Data Objective Data Vital Signs: Vital Signs Temp Pulse Resp BP Pulse Ox O2 Del Method O2 Flow Rate 99.5 F H 72 16 127/67 H 98 Nasal Cannula 4 07/17/22 10:47 07/17/22 10:47 07/17/22 10:47 07/17/22 10:47 07/17/22 10:47 07/17/22 10:47 07/17/22 10:47 FiO2 35 07/17/22 03:39 Oxygen Flow Rate (L/min) 4 Oxygen Delivery Method Nasal Cannula Weight: 147 lb 0.773 oz Body Mass Index (BMI) 21.7 Intake & Output: Intake and Output for Last 24 Hours 07/15/22 07/16/22 07/17/22 23:59 23:59 23:59 Intake Total 990 / 1140 930 / 930 120 / 120 Output Total 1500 / 1600 100 / 100 0 / 0 Balance -510 / -460 830 / 830 120 / 120 Lab / Micro Data Result Diagrams: 07/17/22 06:20 07/17/22 06:20 Labs: Laboratory Results - last 24 hr 07/17/22 06:20: WBC 8.7, RBC 2.87 L, Hgb 8.1 L, Hct 26.7 L, MCV 93.0, MCH 28.2, MCHC 30.3 L, RDW Std Deviation 55.5 H, RDW Coeff of Destiny 16.6 H, Plt Count 244, MPV 9.2, Immature Gran % (Auto) 2.600 H, Neut % (Auto) 68.4, Lymph % (Auto) 16.5 L, [place] % (Auto) 11.9 H, Eos % (Auto) 0.3, Baso % (Auto) 0.3, Absolute Neuts (auto) 5.9, Absolute Lymphs (auto) 1.43, Nucleated RBC % 0.6 07/17/22 06:20: Sodium 140, Potassium 3.8, Chloride 103, Carbon Dioxide 27.0, Anion Gap 10, BUN 34 H, Creatinine 5.15 H, Estim Creat Clear Calc 10.62, Est GFR (MDRD) Af Amer 11 L, Est GFR (MDRD) Non-Af 9 L, BUN/Creatinine Ratio 6.6 L, Glucose 79, Calcium 8.5 Micro: Microbiology 07/13/22 04:50 Blood Culture (Wb) #2 - Anticubital Left Blood Culture - Preliminary No growth in 48 hours. 07/13/22 05:05 Blood Culture (Wb) - Anticubital Left Blood Culture - Preliminary No growth in 48 hours. 07/13/22 05:25 Stool Stool Occult Blood (JOHNSON) - Final Occult Blood Positive Rhythm Strip Rhythm Strip: Sinus Rhythm Rate: 70 Ectopy: PAC(s) Physical Exam Const alert and no apparent distress Constitutional Narrative: Oriented HEENT normocephalic and head/scalp atraumatic Eyes Eyes Narrative: EOM grossly intact, anicteric Neck supple Resp normal respiratory effort and clear to auscultation bilaterally Cardio regular rate GI soft to palpation, non-tender and non-distended Extremity Extremity Narrative: Moves all extremities Neuro Neuro Narrative: No overt focal deficits appreciated Psych Psych Narrative: Cooperative Assessment & Plan Assessment/Plan (1) Acute blood loss anemia: PLAN: Recheck hemoglobin in 5 days. Check iron studies such as ferritin, iron, TIBC, transferrin and reticulocyte count. Patient will likely need a colonoscopy as an outpatient and likely a capsule endoscopy to make sure she does not have any more angiodysplasias. Regular diet as tolerated. Charges/Coding Visit Charges Inpatient E&M: 98036 Subs Hosp L2
--- NOTE | 2022-07-17 12:59 | DS.PCM_ITS ---
Providers Date of Admission: 07/13/22 Primary Care Physician: Nehemiah Colmenares Consultations 07/13/22 07:11 Consult: Gastroenterology Routine Consulting Provider: Ahmet Gastro[facility] Reason for Consult: acute on chronic anemia, positive occult blood in stool EMERGENT Consult: No Notified: Yes Date Notified: 07/13/22 Time Notified: 06:35 Method of Notification: Text Consult: Nephrology Routine Consulting Provider: Soraida Sears Reason for Consult: ESRD on hemodialysis EMERGENT Consult: No Notified: Yes Date Notified: 07/13/22 Time Notified: 06:35 Method of Notification: Text Reason For Visit: ACUTE ON CHRONIC RESPIRATORY FAILURE; ACUTE ON Diagnosis Discharge Diagnosis (1) Acute blood loss anemia: Status: Acute Code(s): D62 - Acute posthemorrhagic anemia Medications at Discharge Home Medications hydralazine 100 mg tablet 100 mg PO TID BLOOD PRESSURE 03/31/20 amlodipine 10 mg tablet 10 mg PO DAILY blood pressure 11/30/20 calcium acetate(phosphat bind) 667 mg capsule 667 mg PO TIDCM health maintenance 11/30/20 apixaban 2.5 mg tablet (Eliquis) 2.5 mg PO BID anticoagulant 01/08/21 mirtazapine 45 mg tablet 45 mg PO QHS INSOMNIA 01/08/21 dicyclomine 20 mg tablet 20 mg PO TID 02/26/21 gabapentin 300 mg capsule 300 mg PO SUTUTHSA NERVE PAIN 10/05/21 gabapentin 600 mg tablet 600 mg PO MOWEFR NERVE PAIN 10/05/21 vit B,C-folic ac 800 mcg-zinc 12.5 mg-selen-D3 2,000 unit-vit E tablet (RenaPlex-D) 1 tab PO MOWEFR DIALYSIS 10/05/21 lactulose 10 gram/15 mL oral solution 30 ml PO QHS PRN Constipation 10/25/21 montelukast 10 mg tablet (Singulair) 10 mg PO QHS ALLERGIES 10/25/21 carvedilol 25 mg tablet 25 mg PO BID #0 tabs 12/21/21 midodrine 10 mg tablet 10 mg PO MOWEFR 02/23/22 prednisone 5 mg tablet 5 mg PO DAILY STEROID 02/23/22 duloxetine 60 mg capsule,delayed release 60 mg PO DAILY DEPRESSION 05/19/22 fluticasone 500 mcg-salmeterol 50 mcg/dose blistr powdr for inhalation (Advair Diskus) 1 inh inhalation BID 05/19/22 polyethylene glycol 3350 17 gram/dose oral powder (Miralax) 17 g PO DAILY CONSTIPATION 05/19/22 tiotropium bromide 2.5 mcg/actuation mist for inhalation (Spiriva Respimat) 2 puff inhalation DAILY 05/19/22 albuterol sulfate 2.5 mg/3 mL (0.083 %) solution for nebulization 2.5 mg (3 mL) inhalation Q2H PRN PRN SOB/Wheezing 30 days #90 mL 05/20/22 acetaminophen 325 mg tablet (Tylenol) 650 mg PO Q6H PRN PRN Pain 1-10 Or Fever >100.7 #0 tabs 06/13/22 guaifenesin 1,200 mg tablet, extended release 12 hr (Mucus Relief ER) 1,200 mg PO BID #14 tabs 06/13/22 albuterol sulfate 90 mcg/actuation aerosol inhaler 2 puff inhalation Q6H #8.5 grams 06/28/22 nut.tx.imp.renal fxn,lac-reduc 0.08 gram-1.8 kcal/mL oral liquid (Nepro Carb Steady) 120 ml PO 4X/DAY #0 mL 06/28/22 oxycodone 5 mg tablet 10 mg PO Q4H PRN PRN Pain Score 4-10 5 days #15 tabs 06/28/22 sulfamethoxazole 800 mg-trimethoprim 160 mg tablet 0.5 tab PO DAILY #3 TABLETS 07/06/22 dexamethasone 6 mg tablet 6 mg PO DAILY #7 tabs 07/17/22 pantoprazole 40 mg tablet,delayed release 40 mg PO BID #0 tabs 07/17/22 Hospital Course Operations None Procedures Dialysis Summary of Care Provided Minutes Spent on Discharge: 35 Hospital Course: Per HPI: ALEC GUTIERREZ, is a 72 F with a past medical history as outlined who presents via the ED on 07/13/2022 with a complaint of shortness of breath.? Patient has a history of recurrent admissions for the same condition and was recently admitted and discharged on 06/08/2022 after she was here for shortness of breath again.? Shortness of breath that been going on for few hours prior to this admission.? She is on dialysis and her last session was 2 days prior to this admission.? she denied any wheezing, coughing, chest pain, palpitations, dizziness, nausea vomiting or diarrhea.? She denied any dark stools.? Review of symptoms otherwise negative.? Patient tested positive for COVID on 07/08/2021 when she was seen in the ED on 07/07/2021. .? In the skilled nursing she was saturating at 89% on her baseline 4 L of oxygen so she was given breathing treatments and brought into the ED. Vitals at time of review were blood pressure of 109/52, pulse rate of 59 respiratory rate of 24 with temperature of 98.3 Fahrenheit.? She was initially placed on BiPAP at time of presentation in the ED by time of my review she was off BiPAP and on 4 L of oxygen.? CBC showed WBC of 8.7 and hemoglobin of 5.9, with platelets of 236.? Chemistry was remarkable for creatinine of 6 and initial troponin of 56 with BNP of four 166.8.? Of note her BNP is chronically elevated though this is more elevated than usual.? Stool for occult blood was positive.? Chest x-ray showed mild stable cardiomegaly and no significant change in bilateral pleural effusions right greater than left and right lower lobe subsegmental atelectasis or pneumonia left lower lobe density which may represents a segmental atelectasis or pneumonia.? She has been admitted to be managed for acute on chronic hypoxic respiratory failure due to COVID-19 pneumonia and COPD exacerbation as well as acute on chronic heart failure with preserved ejection fraction as well as acute on chronic anemia due to GI bleed. Hospital Course: 1. Acute on chronic hypoxic respiratory failure secondary to acute on chronic COPD exacerbation due to COVID-19 and acute on chronic diastolic CHF?72-year-old female presents from the skilled nursing with increased shortness of breath. It does not sound like she is ever not been short of breath since discharge on 06/28/2022 however she had tested positive for COVID on 07/08/2021. She was started on Decadron and has had significant improvement. She is also been continued on dialysis for end-stage renal failure. I discussed with her the possibility for discharge today as she is breathing better and feeling little bit better, she expressed understanding of the risk benefits of going back to the skilled nursing and would like to go today. We will continue 7 more days of Decadron on discharge for her COVID she will be on the 10-day emily tomorrow and can be taken out of precautions at that time. 2. Acute on chronic anemia due to GI bleed?this is also been a chronic issue for her, she is on anticoagulation secondary to A. fib, will hold this for another 5 or 6 days, she will need to have an outpatient colonoscopy versus possible capsule endoscopy. Would recommend monitoring of her lab work at the skilled nursing. Appreciate GIs assistance 3. End-stage renal disease, hypertension, hyperlipidemia, A. fib, GERD, anxiety, depression, chronic pain all chronic medical conditions which complicate her care. Her home medications were continued where appropriate Physical Exam Narrative General: Alert, Oriented x3, Cooperative, No apparent distress HEENT: Atraumatic, PERRLA, EOMI, Normocephalic Oral: Moist Mucosa Neck: Supple, No JVD Lungs: Diminished, Normal air movement, No rhonchi, No wheeze, No rales Cardiovascular: Regular rate, Regular Rhythm, Normal S1, Normal S2, No murmurs Abdomen: Soft, Non Tender, Non-Distended, No Hepato-splenomegaly Extremities: No edema, Capillary Refill Less than 3 Seconds Skin: No rashes, No breakdown Musculoskeletal: Tenderness to palpation of her right hip Neurological: Cranial nerves II-XII grossly intact, Motor Exam 5/5 strength throughout, Sensory exam intact to light touch and pain Psych/Mental Status: Normal Affect, Appropriate Weight / BMI Weight Weight: 147 lb 0.773 oz Body Mass Index (BMI) 21.7 ABG / Lab / Microbiology Data Result Diagrams: 07/17/22 06:20 07/17/22 06:20 Laboratory: Laboratory Results - last 24 hr 07/17/22 06:20: WBC 8.7, RBC 2.87 L, Hgb 8.1 L, Hct 26.7 L, MCV 93.0, MCH 28.2, MCHC 30.3 L, RDW Std Deviation 55.5 H, RDW Coeff of Destiny 16.6 H, Plt Count 244, MPV 9.2, Immature Gran % (Auto) 2.600 H, Neut % (Auto) 68.4, Lymph % (Auto) 16.5 L, [place] % (Auto) 11.9 H, Eos % (Auto) 0.3, Baso % (Auto) 0.3, Absolute Neuts (auto) 5.9, Absolute Lymphs (auto) 1.43, Nucleated RBC % 0.6 07/17/22 06:20: Sodium 140, Potassium 3.8, Chloride 103, Carbon Dioxide 27.0, Anion Gap 10, BUN 34 H, Creatinine 5.15 H, Estim Creat Clear Calc 10.62, Est GFR (MDRD) Af Amer 11 L, Est GFR (MDRD) Non-Af 9 L, BUN/Creatinine Ratio 6.6 L, Glucose 79, Calcium 8.5 Microbiology: Microbiology 07/13/22 04:50 Blood Culture (Wb) #2 - Anticubital Left Blood Culture - Preliminary No growth in 48 hours. 07/13/22 05:05 Blood Culture (Wb) - Anticubital Left Blood Culture - Preliminary No growth in 48 hours. 07/13/22 05:25 Stool Stool Occult Blood (JOHNSON) - Final Occult Blood Positive Meaningful Use Info Meaningful Use Diagnoses (Choose all that apply): None applicable Discharge Plan Admission Admit Date/Time: 07/13/22 06:04 Attending Provider: Sixto Montoya Primary Care Provider: Nehemiah Colmenares Consulting Providers: Malu Smith ; Soraida Sears ; Nataliia Quezada Instructions Additional Instructions / Restrictions: Patient will likely need a colonoscopy as an outpatient and likely a capsule endoscopy Restart eliquis in 5 days Discharge Orders/Prescriptions Prescriptions: New pantoprazole 40 mg Tablet,Delayed Release (Dr/Ec) 40 mg PO BID Qty: 0 0RF dexamethasone 6 mg tablet 6 mg PO DAILY Qty: 7 0RF Continued hydralazine 100 MG tablet 100 mg PO TID amlodipine 10 mg Tablet 10 mg PO DAILY calcium acetate(phosphat bind) 667 mg Capsule 667 mg PO TIDCM mirtazapine 45 mg Tablet 45 mg PO QHS dicyclomine 20 mg tablet 20 mg PO TID Label Comments: Take 1 tablet by mouth three times daily before meals. gabapentin 600 mg tablet 600 mg PO MOWEFR Label Comments: 1 TABLET BY MOUTH EVERY (3P-6P AFTER DIALYSIS) DX: gabapentin 300 mg capsule 300 mg PO SUTUTHSA Label Comments: 1 CAPSULE BY MOUTH [id number] (3P-6P) DX:E RenaPlex-D 800 mcg-12.5 mg -2,000 unit tablet 1 tab PO MOWEFR Label Comments: TAKE 1 TABLET BY MOUTH EVERY DAY (ON DIALYSIS DAYS, TAKE AFTER DIALYSIS TREATMENT) montelukast [Singulair] 10 mg Tablet 10 mg PO QHS lactulose 10 gram/15 mL Solution 30 ml PO QHS PRN (Reason: Constipation) carvedilol 25 mg Tablet 25 mg PO BID Qty: 0 0RF midodrine 10 mg tablet 10 mg PO MOWEFR fluticasone propion-salmeterol [Advair Diskus] 500-50 mcg/dose Blister With Device 1 inh INHALATION BID Spiriva Respimat 2.5 mcg/actuation Mist 2 puff INHALATION DAILY duloxetine 60 mg capsule,delayed release(DR/EC) 60 mg PO DAILY polyethylene glycol 3350 [Miralax] 17 gram/dose powder 17 g PO DAILY albuterol sulfate 2.5 mg /3 mL (0.083 %) Solution For Nebulization 2.5 mg inhalation Q2H PRN PRN (Reason: SOB/Wheezing) 30 Days Qty: 90 1RF acetaminophen [Tylenol] 325 mg Tablet 650 mg PO Q6H PRN PRN (Reason: Pain 1-10 Or Fever >100.7) Qty: 0 0RF Mucus Relief ER 1,200 mg Tablet Extended Release 12hr 1,200 mg PO BID Qty: 14 0RF Nepro Carb Steady 0.08 gram-1.8 kcal/mL Liquid 120 ml PO 4X/DAY Qty: 0 0RF oxycodone 5 mg Tablet 10 mg PO Q4H PRN PRN (Reason: Pain Score 4-10) 5 Days Qty: 15 0RF albuterol sulfate 90 mcg/actuation HFA aerosol inhaler 2 puff inhalation Q6H Qty: 8.5 2RF sulfamethoxazole-trimethoprim 800-160 mg tablet 0.5 tab PO DAILY Qty: 3 0RF Held Eliquis 2.5 mg Tablet 2.5 mg PO BID Hold Instructions: Resume on 07/22/22. prednisone 5 mg tablet 5 mg PO DAILY Hold Instructions: Resume on 07/24/22. Restart when decadron is completed Discontinued omeprazole 20 mg capsule,delayed release(DR/EC) 20 mg PO DAILY Label Comments: 1 CAPSULE BY MOUTH ONCECDAILY DX: / NURSE TO REORDER Referrals / Follow Up: Nehemiah Colmenares [Primary Care Provider] - Disposition Disposition (needs filled in before D/C Order can be placed): [facility] Charges/Coding Visit Charges Inpatient E&M: 40642 Disch Hosp >30min
--- NOTE | 2022-07-28 13:58 | OP.CCLET_ITS ---
07/28/2022 Nehemiah Colmenares Re : Upper GI endoscopy procedure for Cori Ferrer Dear Darrian This procedure was performed on Thursday, July 14, 2022. My impressions and recommendations are as follows: Impressions : - Normal esophagus. - Gastritis. Biopsied. - Three bleeding angiodysplastic lesions in the duodenum. Treated with a monopolar probe. Recommendations : - Discharge patient to home. - Resume previous diet. - Continue present medications. My findings are described in the full procedure note, which is enclosed. If I can be of further assistance, please feel free to contact me at . Sincerely, Alexx Yuen, 07/28/2022 1:57:59 PM This report has been signed electronically.
--- NOTE | 2022-07-28 13:58 | OP.EGD_ITS ---
Patient Name: Cori Ferrer Procedure Date: 07/14/2022 5:19 PM Date of : 1950 Age: 72 Procedure: Upper GI endoscopy Indications: Iron deficiency anemia, Melena Providers: Alexx Yuen DO Medicines: Monitored Anesthesia Care Patient Profile: This is a 72 year old female. Refer to note in patient chart for documentation of history and physical. Patient has symptoms of acute epigastric abdominal pain and acute vomiting. Complications: No immediate complications. Procedure: Pre-Anesthesia Assessment: - Prior to the procedure, a History and Physical was performed, and patient medications and allergies were reviewed. The patient is competent. The risks and benefits of the procedure and the sedation options and risks were discussed with the patient. All questions were answered and informed consent was obtained. Patient identification and proposed procedure were verified by the physician in the pre-procedure area. Mental Status Examination: alert and oriented. Airway Examination: normal oropharyngeal airway and neck mobility. Respiratory Examination: clear to auscultation. CV Examination: normal. Prophylactic Antibiotics: The patient does not require prophylactic antibiotics. Prior Anticoagulants: The patient has taken no previous anticoagulant or antiplatelet agents. ASA Grade Assessment: II - A patient with mild systemic disease. After reviewing the risks and benefits, the patient was deemed in satisfactory condition to undergo the procedure. The anesthesia plan was to use monitored anesthesia care (MAC). Immediately prior to administration of medications, the patient was re-assessed for adequacy to receive sedatives. The heart rate, respiratory rate, oxygen saturations, blood pressure, adequacy of pulmonary ventilation, and response to care were monitored throughout the procedure. The physical status of the patient was re-assessed after the procedure. After obtaining informed consent, the endoscope was passed under direct vision. Throughout the procedure, the patient's blood pressure, pulse, and oxygen saturations were monitored continuously. The gastroscope was introduced through the mouth, and advanced to the second part of duodenum. The upper GI endoscopy was accomplished without difficulty. The patient tolerated the procedure well. Scope In: 5:32:54 PM Scope Out: 5:39:22 PM Total Procedure Duration Time 0 hours 6 minutes 28 seconds Findings: The examined esophagus was normal. Patchy mild inflammation characterized by congestion (edema) was found in the gastric body. Biopsies were taken with a cold forceps for histology. Verification of patient identification for the specimen was done. Three 5 mm angiodysplastic lesions with bleeding were found in the duodenal bulb. Coagulation for hemostasis using monopolar probe was successful. Impression: - Normal esophagus. - Gastritis. Biopsied. - Three bleeding angiodysplastic lesions in the duodenum. Treated with a monopolar probe. Recommendation: - Discharge patient to home. - Resume previous diet. - Continue present medications. Procedure Code(s): --- Professional --- 07268, 59, Esophagogastroduodenoscopy, flexible, transoral; with control of bleeding, any method 37511, Esophagogastroduodenoscopy, flexible, transoral; with biopsy, single or multiple CPT copyright 2017 [employer]. All rights reserved. The codes documented in this report are preliminary and upon certified pharmacy tech review may be revised to meet current compliance requirements. Alexx Yuen DO 07/28/2022 1:57:59 PM This report has been signed electronically. Number of Addenda: 0 Note Initiated On: 07/14/2022 5:19 PM
== END 2022-07-17 11:52 | disposition skilled nursing facility (03) | DRG 177 ==
LOC: ED 06:11 → PCU 07:08
PROVIDERS: Anesthesiology; Internal Medicine; Internal Medicine Gastroenterology; Admitting Provider Student in an Organized Health Care Education/Training Program; Emergency Provider Emergency Medicine; PCP Family Medicine; Visit Provider Family Medicine
PROC: 0DJ08ZZ Inspection of Upper Intestinal Tract, Via Natural or Artificial Opening Endoscopic (ICD-10-PCS; CPT 43235; principal; 2022-07-14 16:40)
DX: U07.1 COVID-19 (principal); J12.82 Pneumonia due to coronavirus disease 2019; J96.21 Acute and chronic respiratory failure with hypoxia; I50.33 Acute on chronic diastolic (congestive) heart failure; K31.811 Angiodysplasia of stomach and duodenum with bleeding; N18.6 End stage renal disease; D62 Acute posthemorrhagic anemia; I13.2 Hypertensive heart and chronic kidney disease with heart failure and with stage 5 chronic kidney disease, or end stage renal disease; J44.1 Chronic obstructive pulmonary disease with (acute) exacerbation; J44.0 Chronic obstructive pulmonary disease with (acute) lower respiratory infection; D63.1 Anemia in chronic kidney disease; Z99.2 Dependence on renal dialysis; E11.22 Type 2 diabetes mellitus with diabetic chronic kidney disease; I48.0 Paroxysmal atrial fibrillation; E78.00 Pure hypercholesterolemia, unspecified; K21.9 Gastro-esophageal reflux disease without esophagitis; K29.70 Gastritis, unspecified, without bleeding; F41.9 Anxiety disorder, unspecified; I25.2 Old myocardial infarction; F32.A Depression, unspecified; G89.29 Other chronic pain; Z99.81 Dependence on supplemental oxygen; Z79.01 Long term (current) use of anticoagulants; Z79.899 Other long term (current) drug therapy; Z86.73 Personal history of transient ischemic attack (TIA), and cerebral infarction without residual deficits; Z86.718 Personal history of other venous thrombosis and embolism; Z87.891 Personal history of nicotine dependence
CPT/HCPCS: 36415; 36600; 71045; 80048; 82274; 82550; 82728; 82803; 83540; 83550; 83605; 83615; 83880; 84145; 84484; 85025; 85045; 85384; 85610; 85730; 86850; 86900; 86901; 86920; 86922; 87040; 90937; 93005; 94002; 94003; 94640; 94667; 94762; 97110; 97162; 97166; 97535; 99285; J7040; J7120; P9016; A4216; G0257; J2405

== ENCOUNTER → 2022-08-01 | Outpatient (REF) | payer MEDICARE, MEDICAID, SELFPAY ==
[2022-08-01 07:45] LABS: Hematocrit 27.5 % (37-47); Hemoglobin 7.8 g/dL (12.0-15.0); Mean Corp Hgb Conc 28.4 g/dL (32-36); Mean Corpuscular Hgb 28.4 pg (27.0-32.0); Mean Platelet Vol. 9.4 fl (6.2-12.0); POSITIVE MORPHOLOGY YES; Platelet Count 143 K/mm3 (150-450); RBC Distribution Width CV 19.4 % (11.6-14.6); RBC Distribution Width SD 68.7 fl (35.1-43.9); Red Blood Count 2.75 M/mm3 (4.2-5.4); White Blood Count 9.5 K/mm3 (4.4-11.0)
[2022-08-01 07:53] LABS: Scan Indicated on CBC? Y/N YES- FLAGS NOTED
[2022-08-01 08:02] LABS: Anion Gap 7 (5-15); BUN 51 mg/dL (7-18); BUN/Creat Ratio 10.4 RATIO (10-20); Calcium,Total 8.6 mg/dL (8.5-10.1); Chloride 99 mmol/L (98-107); Creatinine, Serum 4.89 mg/dL (0.55-1.02); EST Glomerular Filtration Rate 9 mL/min (>60); Est Glom Filt Rate - Afr Amer 11 mL/min (>60); Glucose 82 mg/dL (74-106); Potassium 4.3 mmol/L (3.5-5.1); Sodium Level 139 mmol/L (136-145)
== END ==
LOC: OLS.SW 05:00
PROVIDERS: PCP Family Medicine; Visit Provider Family Medicine
DX: N18.6 End stage renal disease (principal)
CPT/HCPCS: 36415; 80048; 85027

== ENCOUNTER → 2022-08-08 | Outpatient (REF) | payer MEDICARE, MEDICAID, SELFPAY ==
[2022-08-08 09:28] LABS: Hematocrit 32.9 % (37-47); Hemoglobin 9.4 g/dL (12.0-15.0); Mean Corp Hgb Conc 28.6 g/dL (32-36); Mean Corpuscular Hgb 28.6 pg (27.0-32.0); Mean Platelet Vol. 9.7 fl (6.2-12.0); POSITIVE MORPHOLOGY YES; Platelet Count 214 K/mm3 (150-450); RBC Distribution Width CV 18.3 % (11.6-14.6); RBC Distribution Width SD 67.7 fl (35.1-43.9); Red Blood Count 3.29 M/mm3 (4.2-5.4); White Blood Count 7.9 K/mm3 (4.4-11.0)
[2022-08-08 09:36] LABS: Scan Indicated on CBC? Y/N YES- FLAGS NOTED
[2022-08-08 10:17] LABS: Anion Gap 10 (5-15); BUN 46 mg/dL (7-18); BUN/Creat Ratio 9.1 RATIO (10-20); Calcium,Total 9.3 mg/dL (8.5-10.1); Chloride 97 mmol/L (98-107); Creatinine, Serum 5.08 mg/dL (0.55-1.02); EST Glomerular Filtration Rate 9 mL/min (>60); Est Glom Filt Rate - Afr Amer 11 mL/min (>60); Glucose 62 mg/dL (74-106); Potassium 5.5 mmol/L (3.5-5.1); Sodium Level 136 mmol/L (136-145)
[2022-08-08 10:20] LABS: Differential Comment SCANNED
== END ==
LOC: OLS.SW 05:00
PROVIDERS: PCP Family Medicine; Visit Provider Family Medicine
DX: E11.22 Type 2 diabetes mellitus with diabetic chronic kidney disease (principal); I13.2 Hypertensive heart and chronic kidney disease with heart failure and with stage 5 chronic kidney disease, or end stage renal disease; N18.6 End stage renal disease; J44.9 Chronic obstructive pulmonary disease, unspecified; I50.9 Heart failure, unspecified
CPT/HCPCS: 36415; 80048; 85027

== ENCOUNTER 2022-09-04 08:00 | Emergency (ER) | payer MEDICARE, MEDICAID, SELFPAY ==
[2022-09-04 08:02] VITALS: BP 172/83; PULSE 67; RESP 19; TEMP 36.2; O2SAT 100; BMI 22.6
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
--- NOTE | 2022-09-04 08:15 | EKG12_ITS ---
Test Reason : Blood Pressure : / mmHG Vent. Rate : 065 BPM Atrial Rate : 065 BPM P-R Int : 164 ms QRS Dur : 084 ms QT Int : 416 ms P-R-T Axes : 060 -13 037 degrees QTc Int : 432 ms Normal sinus rhythm Poor R wave progression Confirmed by BRANDON LEMON, MACIE ([id number]), editor department BIRDIE TORRES ([id number]) on 09/06/2022 10:01:38 AM Referred By: SAKSHI Confirmed By:MACIE TAYLOR MD
--- NOTE | 2022-09-04 08:30 | RAD_ITS ---
STUDY: X-RAY CHEST REASON FOR EXAM: Female, 72 years old. Chest pain TECHNIQUE: Single AP portable view of the chest. COMPARISON: Comparison is made with prior study dated July 13, 2022. FINDINGS: A right-sided double-J catheter is seen with the tip in the right atrium. EKG electrodes are seen. Small bilateral pleural effusions with bibasilar atelectasis worse at the right lung base superimposed on CHF. There is mild cardiac enlargement. Normal mediastinum and farhan. Normal visualized pulmonary arteries. There is atherosclerotic calcification of the aortic arch with tortuosity. Normal visualized thoracic spine. Normal visualized ribs, clavicles, and shoulders. There is no demonstrated abnormality of the visualized soft tissue structures of the upper abdomen. RAD/Chest 1 View (Portable) IMPRESSION: CHF with bilateral pleural effusions and bibasilar atelectasis is worse on the right side. Electronically Signed: Lopez Barraza MD at 8:50 EST ,
[2022-09-04 08:33] LABS: Absolute Lymphocyte Count 1.85 X10^3/uL (0.83-4.51); Absolute Neutrophil Count 7.2 X10^3/uL (2.0-7.7); Basophil# 0.05 X10^3/uL; Basophil% 0.5 % (0-1); Eosinophils% 3.8 % (0-5); Hematocrit 44.8 % (37-47); Hemoglobin 13.2 g/dL (12.0-15.0); Lymphocyte # 1.85 X10^3/ul (0.83-4.51); Lymphocyte % 17.8 % (19-41); Mean Corp Hgb Conc 29.5 g/dL (32-36); Mean Corpuscular Hgb 28.9 pg (27.0-32.0); Mean Corpuscular Volume 98.2 fL (81-99); Mean Platelet Vol. 8.8 fl (6.2-12.0); Monocyte# 0.84 X10^3/uL; Monocyte% 8.1 % (0-10); NRBC Flagged by Analyzer 0.4 % (0-5); Neutrophil # 7.23 X10^3/uL (2.7-7.7); Neutrophil % 69.3 % (47-70); Platelet Count 194 K/mm3 (150-450); RBC Distribution Width CV 17.9 % (11.6-14.6); RBC Distribution Width SD 64.5 fl (35.1-43.9); Red Blood Count 4.56 M/mm3 (4.2-5.4); White Blood Count 10.4 K/mm3 (4.4-11.0)
[2022-09-04 08:50] LABS: Anion Gap 7 (5-15); BUN 42 mg/dL (7-18); BUN/Creat Ratio 5.8 RATIO (10-20); Calcium,Total 11.6 mg/dL (8.5-10.1); Chloride 100 mmol/L (98-107); EST Glomerular Filtration Rate 6 mL/min (>60); Est Glom Filt Rate - Afr Amer 7 mL/min (>60); Glucose 82 mg/dL (74-106); Potassium 5.2 mmol/L (3.5-5.1); Sodium Level 138 mmol/L (136-145); Troponin-I HS (w/2H Reflex) 34 pg/mL (3.0-54.0)
[2022-09-04 10:00] VITALS: BP 168/69; PULSE 63; RESP 19
[2022-09-04 10:30] LABS: Reflex Troponin-HS? (from REC) Y
[2022-09-04 11:22] VITALS: BP 162/71; PULSE 66; RESP 17; O2SAT 97
[2022-09-04 11:29] LABS: Troponin-I HS 28 pg/mL (3.0-54.0)
--- NOTE | 2022-09-04 12:06 | NURSING ---
CALLED DR BAUMAN'S OFFICE. TALKED TO ELIANE. SHE PAGED THE DOCTOR
[2022-09-04 12:16] VITALS: BP 149/80; PULSE 58; RESP 20; O2SAT 100
--- NOTE | 2022-09-04 12:35 | ED.RN ---
called [facility] [place] to inform of pt being transferred from ED to center for dialysis.
[2022-09-04 13:08] VITALS: BP 143/63
== END 2022-09-04 13:08 | disposition home or self-care (01) ==
PROVIDERS: Emergency Provider Emergency Medicine; PCP Nurse Practitioner Adult Health; Visit Provider Emergency Medicine
DX: R07.9 Chest pain, unspecified (principal); I13.2 Hypertensive heart and chronic kidney disease with heart failure and with stage 5 chronic kidney disease, or end stage renal disease; Z99.2 Dependence on renal dialysis; J44.9 Chronic obstructive pulmonary disease, unspecified; I50.9 Heart failure, unspecified; N18.6 End stage renal disease; I25.2 Old myocardial infarction; F32.A Depression, unspecified; F41.9 Anxiety disorder, unspecified; Z86.73 Personal history of transient ischemic attack (TIA), and cerebral infarction without residual deficits; Z86.718 Personal history of other venous thrombosis and embolism; Z79.01 Long term (current) use of anticoagulants; Z79.899 Other long term (current) drug therapy; Z99.81 Dependence on supplemental oxygen; Z87.891 Personal history of nicotine dependence
CPT/HCPCS: 71045; 80048; 84484; 85025; 93005; 99285; A4216

== ENCOUNTER 2022-09-11 08:23 | Emergency (ER) | payer MEDICARE, MEDICAID, SELFPAY ==
[2022-09-11] VITALS (8 sets, daily range): BP systolic 134–168; BP diastolic 62–126; PULSE 70–89; RESP 16–20; TEMP 36.2–36.9; O2SAT 94–100; BMI 26.2
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
--- NOTE | 2022-09-11 08:43 | EKG12_ITS ---
Test Reason : CP Blood Pressure : / mmHG Vent. Rate : 085 BPM Atrial Rate : 085 BPM P-R Int : 144 ms QRS Dur : 074 ms QT Int : 340 ms P-R-T Axes : 045 -06 035 degrees QTc Int : 404 ms Normal sinus rhythm Normal ECG When compared with ECG of 04-SEP-2022 08:04, No significant change was found Confirmed by TERE LEMON, JAN ([id number]), editorial cartoonist BIRDIE TORRES ([id number]) on 09/13/2022 11:31:02 AM Referred By: SKYE Confirmed By:JAN CARRANZA MD
--- NOTE | 2022-09-11 09:08 | RAD_ITS ---
STUDY: X-RAY CHEST REASON FOR EXAM: Female, 72 years old. Chest pain TECHNIQUE: Single AP portable view of the chest. COMPARISON: 09/04/2022 FINDINGS: EKG leads overlie the chest. Stable appearance of right-sided clavian catheter Lungs are expanded with stable bilateral pleural effusions and bibasilar atelectasis, no interval change since the previous study. Normal size heart. Normal mediastinum and farhan. Normal visualized pulmonary arteries. Normal visualized aortic arch and descending thoracic aorta. Normal visualized thoracic spine. Normal visualized ribs, clavicles, and shoulders. There is no demonstrated abnormality of the visualized soft tissue structures of the upper abdomen. RAD/Chest 1 View (Portable) IMPRESSION: No interval change Electronically Signed: Sebastien Aquino MD at 9:28 EDT ,
[2022-09-11 09:11] LABS: Absolute Lymphocyte Count 1.52 X10^3/uL (0.83-4.51); Absolute Neutrophil Count 7.8 X10^3/uL (2.0-7.7); Basophil# 0.07 X10^3/uL; Basophil% 0.6 % (0-1); Eosinophil# 0.56 X10^3/uL; Eosinophils% 5.1 % (0-5); Hematocrit 42.1 % (37-47); Hemoglobin 12.5 g/dL (12.0-15.0); Lymphocyte # 1.52 X10^3/ul (0.83-4.51); Lymphocyte % 13.8 % (19-41); Mean Corp Hgb Conc 29.7 g/dL (32-36); Mean Corpuscular Hgb 28.2 pg (27.0-32.0); Mean Platelet Vol. 9.3 fl (6.2-12.0); Monocyte# 0.96 X10^3/uL; Monocyte% 8.7 % (0-10); NRBC Flagged by Analyzer 0 % (0-5); Neutrophil # 7.83 X10^3/uL (2.7-7.7); Neutrophil % 71.3 % (47-70); Platelet Count 227 K/mm3 (150-450); RBC Distribution Width CV 16.5 % (11.6-14.6); RBC Distribution Width SD 57.6 fl (35.1-43.9); Red Blood Count 4.43 M/mm3 (4.2-5.4)
--- NOTE | 2022-09-11 09:11 | ED.RN ---
4 BABY ASA GIVEN BY EMS
[2022-09-11 09:28] LABS: Anion Gap 6 (5-15); BUN 72 mg/dL (7-18); Calcium,Total 10.8 mg/dL (8.5-10.1); Chloride 98 mmol/L (98-107); Creatinine, Serum 7.23 mg/dL (0.55-1.02); EST Glomerular Filtration Rate 6 mL/min (>60); Est Glom Filt Rate - Afr Amer 7 mL/min (>60); Estimated Creatinine Clearance 6.52 ml/min; Glucose 93 mg/dL (74-106); Potassium 4.7 mmol/L (3.5-5.1); Sodium Level 136 mmol/L (136-145); Troponin-I HS (w/2H Reflex) 92 pg/mL (3.0-54.0)
[2022-09-11 11:05] LABS: Reflex Troponin-HS? (from REC) Y
[2022-09-11 11:26] LABS: Troponin-I HS 80 pg/mL (3.0-54.0)
[2022-09-11] MEDS: Morphine 4 MG/ML Syringe IV (12:34)
== END 2022-09-11 14:30 | disposition home or self-care (01) ==
PROVIDERS: Emergency Provider Emergency Medicine; PCP Nurse Practitioner Adult Health; Visit Provider Emergency Medicine
DX: R07.9 Chest pain, unspecified (principal); Z99.2 Dependence on renal dialysis; I50.22 Chronic systolic (congestive) heart failure; N18.6 End stage renal disease; Z86.73 Personal history of transient ischemic attack (TIA), and cerebral infarction without residual deficits; Z86.718 Personal history of other venous thrombosis and embolism; Z87.891 Personal history of nicotine dependence
CPT/HCPCS: 71045; 80048; 84484; 85025; 93005; 96374; 99285; A4216

== ENCOUNTER 2022-09-14 16:07 | Emergency (ER) | payer MEDICARE, MEDICAID, SELFPAY ==
[2022-09-14] VITALS (8 sets, daily range): BP systolic 140–146; BP diastolic 64–89; PULSE 68–77; RESP 6–23; TEMP 36.5–36.8; O2SAT 94–100; BMI 25.7
--- NOTE | 2022-09-14 16:23 | ED.RN ---
THIS RN CALLED MARKUS RING PER THE PTS REQUEST. THIS RN LET HIM KNOW THAT THE PT IS HERE AND THAT THE PT HAS HER CELLPHONE. MR. RING HAD NO FURTHER QUESTIONS.
--- NOTE | 2022-09-14 16:26 | EKG12_ITS ---
Test Reason : SOB Blood Pressure : / mmHG Vent. Rate : 073 BPM Atrial Rate : 073 BPM P-R Int : 150 ms QRS Dur : 078 ms QT Int : 404 ms P-R-T Axes : 065 004 005 degrees QTc Int : 445 ms Normal sinus rhythm Nonspecific T wave abnormality Abnormal ECG Confirmed by BAHMAN LEMON, EDWINA ([id number]), managing editor BIRDIE TORRES ([id number]) on 09/18/2022 12:17:52 P M Referred By: Confirmed By:SUAD RUGGIERO MD
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
--- NOTE | 2022-09-14 16:38 | RAD_ITS ---
STUDY: XR Chest 1 View 09/14/2022 4:33 PM REASON FOR EXAM: Female, 72 years old. CHEST PAIN chest pain COMPARISON: 3 days ago. TECHNIQUE: XR Chest 1 View FINDINGS: There are bilateral pleural effusions. There are bilateral infiltrates. There is no pneumothorax. There is a vascular line in place. Normal heart size. Normal mediastinum. Normal farhan. Prominent appearing increased interstitial lung markings. Normal visualized pulmonary arteries. There is atherosclerotic calcification of the aortic arch with tortuosity. There are diffuse degenerative changes of the visualized thoracic spine. There is degenerative osteoarthritis of the bilateral shoulders. There is no demonstrated abnormality of the visualized soft tissue structures of the upper abdomen. RAD/Chest 1 View (Portable) IMPRESSION: There has been no change in the appearance of the chest since the prior study. Electronically Signed: Lee Dennison MD at 17:09 EDT ,
[2022-09-14 16:49] LABS: Absolute Lymphocyte Count 1.11 X10^3/uL (0.83-4.51); Absolute Neutrophil Count 7.3 X10^3/uL (2.0-7.7); Basophil# 0.06 X10^3/uL; Basophil% 0.6 % (0-1); Eosinophil# 0.13 X10^3/uL; Eosinophils% 1.4 % (0-5); Hematocrit 31.7 % (37-47); Hemoglobin 9.7 g/dL (12.0-15.0); Lymphocyte # 1.11 X10^3/ul (0.83-4.51); Lymphocyte % 11.8 % (19-41); Mean Corp Hgb Conc 30.6 g/dL (32-36); Mean Corpuscular Hgb 28.3 pg (27.0-32.0); Mean Corpuscular Volume 92.4 fL (81-99); Mean Platelet Vol. 9.8 fl (6.2-12.0); Monocyte# 0.77 X10^3/uL; Monocyte% 8.2 % (0-10); NRBC Flagged by Analyzer 0 % (0-5); Neutrophil # 7.32 X10^3/uL (2.7-7.7); Neutrophil % 77.6 % (47-70); Platelet Count 224 K/mm3 (150-450); RBC Distribution Width SD 54.3 fl (35.1-43.9); Red Blood Count 3.43 M/mm3 (4.2-5.4); White Blood Count 9.4 K/mm3 (4.4-11.0)
[2022-09-14 17:01] LABS: Anion Gap 8 (5-15); BUN 57 mg/dL (7-18); BUN/Creat Ratio 9.1 RATIO (10-20); Calcium,Total 9.9 mg/dL (8.5-10.1); Chloride 100 mmol/L (98-107); Creatinine, Serum 6.29 mg/dL (0.55-1.02); EST Glomerular Filtration Rate 7 mL/min (>60); Est Glom Filt Rate - Afr Amer 8 mL/min (>60); Estimated Creatinine Clearance 7.49 ml/min; Glucose 108 mg/dL (74-106); Potassium 4.7 mmol/L (3.5-5.1); Sodium Level 139 mmol/L (136-145); Troponin-I HS 47 pg/mL (3.0-54.0)
--- NOTE | 2022-09-14 18:11 | ED.RN ---
THIS RN ATTEMPTED TO CALL REPORT BACK TO [facility]. THIS RN WAS HUNG UP ON CALLING 2X. UNABLE TO GIVE REPORT.
--- NOTE | 2022-09-14 21:27 | ED.RN ---
Addendum entered by Estefania Esquivel 09/14/22 21:29: PT INITIALLY REPORTED SOB AND CHEST PAIN. AFTER 1 MIN DEEP BREATHING, PT REPORTS NO PAIN AND RESPIRATIONS EVEN, NONLABORED. Original Note: PT PICKED UP BY PHYSICIANS AT 2126. PT RESPIRATIONS EVEN, SLIGHTLY LABORED AFTER GETTING COAT ON AND TRANSFERRING TO COT. THIS RN GUIDED PT IN DEEP BREATHING IN THROUGH THE NOSE WITH OXYGEN. AFTER ABOUT A MIN PT RESPIRATIONS EVEN, NONLABORED WITH 4L NC.
== END 2022-09-14 21:30 | disposition home or self-care (01) ==
PROVIDERS: Emergency Provider Emergency Medicine; PCP Nurse Practitioner Adult Health; Visit Provider Emergency Medicine
DX: R06.00 Dyspnea, unspecified (principal); I50.22 Chronic systolic (congestive) heart failure; N18.6 End stage renal disease; J90 Pleural effusion, not elsewhere classified; D63.8 Anemia in other chronic diseases classified elsewhere; I25.2 Old myocardial infarction; Z86.718 Personal history of other venous thrombosis and embolism; Z86.73 Personal history of transient ischemic attack (TIA), and cerebral infarction without residual deficits; Z99.81 Dependence on supplemental oxygen; Z79.01 Long term (current) use of anticoagulants; Z87.891 Personal history of nicotine dependence
CPT/HCPCS: 71045; 80048; 84484; 85025; 93005; 99285

== ENCOUNTER → 2022-10-05 | Outpatient (CLI) | payer MEDICARE, MEDICAID, SELFPAY ==
--- NOTE | 2022-10-05 12:29 | PFT ---
INTRODUCTION: The patient is a 72-year-old -English female who presents for pulmonary function studies secondary to a diagnosis of COPD. Respiratory therapy reported good patient effort. Bronchodilators were used during testing. INTERPRETATION: Forced expiration spirometry demonstrates the presence of a severe large airways obstructive ventilatory defect. There was no significant response to aerosolized bronchodilators. Spirograms are of fair quality and plateau gradually indicating slow emptying of the lungs. Body plethysmography was performed and revealed a decreased TLC to 2.82 L, 48% of predicted, indicative of a severe restrictive ventilatory impairment. Diffusing capacity by single breath CO is reduced at 27% of predicted. IMPRESSION: Irreversible severe mixed ventilatory defect with symmetric reduction in diffusing capacity.
== END | disposition home or self-care (01) ==
PROVIDERS: PCP Nurse Practitioner Adult Health; Referring Provider Nurse Practitioner Gerontology; Visit Provider Nurse Practitioner Gerontology
DX: J44.9 Chronic obstructive pulmonary disease, unspecified (principal); I48.91 Unspecified atrial fibrillation; R42 Dizziness and giddiness
CPT/HCPCS: 93225; 93226; 94060; 94726; 94729

== ENCOUNTER 2022-10-20 15:27 | Inpatient (IN) | payer MEDICARE, MEDICAID, SELFPAY ==
[2022-10-20] VITALS (10 sets, daily range): BP systolic 137–158; BP diastolic 59–62; PULSE 70–82; RESP 20–28; TEMP 36.6–36.8; O2SAT 94–100; BMI 22.0; BMI 21.1
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
[2022-10-20] MEDS: MethylPREDNISolone 125 MG/2 ML Vial 60 MG IV (16:39)
[2022-10-20 16:49] LABS: Absolute Lymphocyte Count 0.76 X10^3/uL (0.83-4.51); Absolute Neutrophil Count 7.6 X10^3/uL (2.0-7.7); Basophil# 0.01 X10^3/uL; Basophil% 0.1 % (0-1); Eosinophil# 0.03 X10^3/uL; Eosinophils% 0.3 % (0-5); Hematocrit 32.2 % (37-47); Hemoglobin 9.4 g/dL (12.0-15.0); Lymphocyte # 0.76 X10^3/ul (0.83-4.51); Lymphocyte % 8.2 % (19-41); Mean Corp Hgb Conc 29.2 g/dL (32-36); Mean Corpuscular Hgb 28.1 pg (27.0-32.0); Mean Corpuscular Volume 96.1 fL (81-99); Mean Platelet Vol. 9.3 fl (6.2-12.0); Monocyte# 0.78 X10^3/uL; Monocyte% 8.4 % (0-10); NRBC Flagged by Analyzer 0 % (0-5); Neutrophil # 7.62 X10^3/uL (2.7-7.7); Neutrophil % 82.6 % (47-70); POSITIVE MORPHOLOGY YES; Platelet Count 173 K/mm3 (150-450); RBC Distribution Width CV 20.8 % (11.6-14.6); RBC Distribution Width SD 72.5 fl (35.1-43.9); Red Blood Count 3.35 M/mm3 (4.2-5.4); White Blood Count 9.2 K/mm3 (4.4-11.0)
--- NOTE | 2022-10-20 16:50 | RAD_ITS ---
INDICATION: sob EXAMINATION/TECHNIQUE: X-RAY - XR Chest 2 Views COMPARISON: 09/14/2022. FINDINGS: Slight increase in interstitial markings. Patchy opacities in the right lung base. Tortuous and calcified thoracic aorta. The heart is mildly enlarged. Right-sided dialysis catheter. Moderate right pleural effusion. Trace left pleural effusion. No pneumothorax. Degenerative changes of the thoracic spine. RAD/Chest PA and Lateral IMPRESSION: Cardiomegaly with interstitial edema and moderate right/trace left pleural effusions. Cannot rule out superimposed infection in the right lung base. Electronically Signed: Charbel Byrne MD at 17:18 EDT ,
[2022-10-20 16:54] LABS: Differential Indicated SCAN CRITERIA MET
[2022-10-20 17:19] LABS: Differential Comment SCANNED
[2022-10-20 17:48] LABS: Anion Gap 3 (5-15); BUN 51 mg/dL (7-18); BUN/Creat Ratio 6.8 RATIO (10-20); Calcium,Total 10.2 mg/dL (8.5-10.1); Chloride 101 mmol/L (98-107); Creatinine, Serum 7.45 mg/dL (0.55-1.02); EST Glomerular Filtration Rate 6 mL/min (>60); Est Glom Filt Rate - Afr Amer 7 mL/min (>60); Estimated Creatinine Clearance 7.34 ml/min; Glucose 106 mg/dL (74-106); Potassium 6.4 mmol/L (3.5-5.1); Sodium Level 136 mmol/L (136-145)
--- NOTE | 2022-10-20 17:52 | EKG12_ITS ---
Test Reason : Blood Pressure : / mmHG Vent. Rate : 070 BPM Atrial Rate : 070 BPM P-R Int : 148 ms QRS Dur : 102 ms QT Int : 400 ms P-R-T Axes : 018 -10 014 degrees QTc Int : 432 ms Normal sinus rhythm Minimal voltage criteria for LVH, may be normal variant ( [place] product ) Borderline ECG Confirmed by TERE LEMON, JAN ([id number]), editor house organ BIRDIE TORRES ([id number]) on 10/23/2022 11:04:35 AM Referred By: Isaiah Underwood Confirmed By:JAN CARRANZA MD
[2022-10-20] MEDS: Albuterol *CONC* 2.5mg/0.5mL VIAL.NEB. 10 MG INHALATION (18:21)
[2022-10-20] MEDS: Sodium Polystyrene Sulfonate 15 GM/60 ML UDC PO (18:24)
[2022-10-20] MEDS: Dextrose 50%-Water 25 GM/50 ML DISP.SYRIN IV (18:25)
[2022-10-20] MEDS: Insulin Lispro 10 UNIT in Syringe 0 ML 6 UNIT IV (18:25)
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
[2022-10-20 21:21] LABS: Bedside Glucose 114 mg/dL (74-106)
[2022-10-20] MEDS: Mirtazapine 30 MG Tablet 45 MG PO (22:14)
[2022-10-20] MEDS: Carvedilol 25 MG Tablet PO (22:15)
[2022-10-20] MEDS: Pantoprazole Sodium 40 MG Tablet PO (22:15)
[2022-10-20] MEDS: oxyCODONE 5 MG Tablet 10 MG PO (22:15)
[2022-10-20] MEDS: Montelukast 10 MG Tablet PO (22:15)
[2022-10-20] MEDS: Nepro Liquid 120 ML LIQUID PO (22:16)
[2022-10-20] MEDS: APIXABAN 2.5 MG TABLET (WCH) PO (22:16)
[2022-10-20] MEDS: hydrALAZINE 50 MG Tablet 100 MG PO (22:16)
[2022-10-20] MEDS: Albuterol 2.5 MG/3 ML VIAL.NEB. INHALATION (22:34)
[2022-10-21] VITALS (10 sets, daily range): BP systolic 137–152; BP diastolic 62–80; PULSE 66–91; RESP 16–26; TEMP 36.6–36.9; O2SAT 96–100
[2022-10-21] MEDS: hydrALAZINE 50 MG Tablet 100 MG PO ×3 (06:11→21:38)
[2022-10-21] MEDS: Dicyclomine 10 MG Capsule 20 MG PO ×3 (06:11→16:51)
[2022-10-21 06:17] LABS: Absolute Lymphocyte Count 0.57 X10^3/uL (0.83-4.51); Absolute Neutrophil Count 10.9 X10^3/uL (2.0-7.7); Basophil# 0.01 X10^3/uL; Basophil% 0.1 % (0-1); Hematocrit 29.7 % (37-47); Hemoglobin 8.9 g/dL (12.0-15.0); Lymphocyte # 0.57 X10^3/ul (0.83-4.51); Lymphocyte % 4.6 % (19-41); Mean Corpuscular Hgb 28.2 pg (27.0-32.0); Mean Platelet Vol. 9.4 fl (6.2-12.0); Monocyte# 0.83 X10^3/uL; Monocyte% 6.7 % (0-10); NRBC Flagged by Analyzer 0 % (0-5); Neutrophil # 10.89 X10^3/uL (2.7-7.7); Neutrophil % 87.7 % (47-70); POSITIVE DIFFERENTIAL YES; POSITIVE MORPHOLOGY YES; Platelet Count 190 K/mm3 (150-450); RBC Distribution Width CV 20.1 % (11.6-14.6); RBC Distribution Width SD 70.1 fl (35.1-43.9); Red Blood Count 3.16 M/mm3 (4.2-5.4); White Blood Count 12.4 K/mm3 (4.4-11.0)
[2022-10-21 07:00] LABS: Bedside Glucose 117 mg/dL (74-106)
[2022-10-21 07:15] LABS: Differential Indicated SCAN CRITERIA MET
[2022-10-21 07:24] LABS: Anisocytosis 2+; Differential Comment SCANNED
[2022-10-21] MEDS: Ipratropium/Albuterol Sulfate 3 ML AMPUL.NEB INHALATION ×2 (07:27→13:58)
[2022-10-21 07:31] LABS: Anion Gap 4 (5-15); BUN 54 mg/dL (7-18); BUN/Creat Ratio 6.8 RATIO (10-20); Calcium,Total 10.1 mg/dL (8.5-10.1); Chloride 99 mmol/L (98-107); Creatinine, Serum 7.94 mg/dL (0.55-1.02); EST Glomerular Filtration Rate 5 mL/min (>60); Est Glom Filt Rate - Afr Amer 6 mL/min (>60); Estimated Creatinine Clearance 6.75 ml/min; Glucose 106 mg/dL (74-106); Potassium 5.6 mmol/L (3.5-5.1); Sodium Level 134 mmol/L (136-145)
[2022-10-21 09:58] LABS: Hepatitis B Surface Antibody Reactive
[2022-10-21 10:17] LABS: Hepatitis B Surface Antigen Non-Reactive (Nonreactive)
--- NOTE | 2022-10-21 11:29 | CASEMGMT ---
Social Work Pt is here from [facility]. According to the notes, pt's transportation for dialysis did not show up yesterday, and pt was admitted to the hospital. SW spoke w/pt, she was asleep and getting dialysis, SW woke pt. She states she was to go to dialysis at 10am yesterday instead of 3pm, and the transportation from [place] did not show up. She goes to dialysis Sunday, Sunday and Sunday. SW explained will check [facility] about transportation for next week. Pt states understanding. Pt has a son listed on the demographics, pt agreeable for SW to also check in w/pt's son. Pt states he is the only family she has. In our chart, pt has POA for healthcare form, Salima Springer is listed as POA and Sarah Fracture is listed as second. SW called son Jose, he does confirm plan would be for pt to return to [facility]. He states pt was out shopping yesterday. SW asked Jose about POA, he states that Salima is no longer involved, and Sarah is out of town. He does not think pt has updated her POA papers however. SW explained we can ask pt about this. SW explained if pt is able to return to [facility] on the weekend, is he available to take pt home. He states it would depend on when pt is discharged, but we can call him. MARIA GUADALUPE called [facility], they have an agency nurse today, Neha. MARIA GUADALUPE inquired about pt's transportation to dialysis, if it is set for Sunday. She is not aware, she states will leave a note for the nurse to call tomorrow. SW asked her to call the U nurse's station to let them know. MARIA GUADALUPE did place a green sheet on the chart, with instructions for staff to check [facility] if possible about transportation on Sunday to dialysis. If we cannot get an answer on the weekend about transportation, MARIA GUADALUPE also put on the green sheet to make sure physician is aware of the possible transportation issue. JENIFER Sherman
--- NOTE | 2022-10-21 11:51 | PN_ITS ---
Subjective Subjective Patient seen and examined. She has no active complaints today. She is on 2 L of oxygen. She says her breathing is improving slightly but still feels short of breath. Dialysis nurse was in the patient's room about to commence dialysis. She has otherwise remained hemodynamically stable. Objective Data Objective Data Vital Signs: Vital Signs Temp Pulse Resp BP Pulse Ox O2 Del Method O2 Flow Rate 98.4 F 80 26 H 152/63 H 96 Nasal Cannula 2 10/21/22 06:00 10/21/22 07:27 10/21/22 07:27 10/21/22 06:11 10/21/22 07:27 10/21/22 08:12 10/21/22 08:12 Oxygen Flow Rate (L/min) 2 Oxygen Delivery Method Nasal Cannula Weight: 143 lb 1.28 oz Body Mass Index (BMI) 21.1 Intake & Output: Intake and Output for Last 24 Hours 10/19/22 10/20/22 10/21/22 23:59 23:59 23:59 Intake Total 120 / 120 Balance 120 / 120 Lab / Micro Data Result Diagrams: 10/21/22 05:39 10/21/22 05:39 Labs: Laboratory Results - last 24 hr 10/20/22 16:25: WBC 9.2, RBC 3.35 L, Hgb 9.4 L, Hct 32.2 L, MCV 96.1, MCH 28.1, MCHC 29.2 L, RDW Std Deviation 72.5 H, RDW Coeff of Destiny 20.8 H, Plt Count 173, MPV 9.3, Immature Gran % (Auto) 0.400, Neut % (Auto) 82.6 H, Lymph % (Auto) 8.2 L, [place] % (Auto) 8.4, Eos % (Auto) 0.3, Baso % (Auto) 0.1, Absolute Neuts (auto) 7.6, Absolute Lymphs (auto) 0.76 L, Nucleated RBC % 0, Differential Comment SCANNED 10/20/22 16:25: Sodium 136, Potassium 6.4 H*, Chloride 101, Carbon Dioxide 32.0, Anion Gap 3 L, BUN 51 H, Creatinine 7.45 H*, Estim Creat Clear Calc 7.34, Est GFR (MDRD) Af Amer 7 L, Est GFR (MDRD) Non-Af 6 L, BUN/Creatinine Ratio 6.8 L, Glucose 106, Calcium 10.2 H 10/20/22 20:55: POC Glucose 114 H 10/21/22 05:39: WBC 12.4 H, RBC 3.16 L, Hgb 8.9 L, Hct 29.7 L, MCV 94.0, MCH 28.2, MCHC 30.0 L, RDW Std Deviation 70.1 H, RDW Coeff of Destiny 20.1 H, Plt Count 190, MPV 9.4, Immature Gran % (Auto) 0.900, Neut % (Auto) 87.7 H, Lymph % (Auto) 4.6 L, [place] % (Auto) 6.7, Eos % (Auto) 0.0, Baso % (Auto) 0.1, Absolute Neuts (auto) 10.9 H, Absolute Lymphs (auto) 0.57 L, Nucleated RBC % 0, Differential Comment SCANNED, Anisocytosis 2+ 10/21/22 05:39: Sodium 134 L, Potassium 5.6 H, Chloride 99, Carbon Dioxide 31.0, Anion Gap 4 L, BUN 54 H, Creatinine 7.94 H*, Estim Creat Clear Calc 6.75, Est GFR (MDRD) Af Amer 6 L, Est GFR (MDRD) Non-Af 5 L, BUN/Creatinine Ratio 6.8 L, Glucose 106, Calcium 10.1 10/21/22 06:09: POC Glucose 117 H 10/21/22 09:00: Hep Bs Antigen Non-Reactive 10/21/22 09:00: Hep Bs Antibody Reactive Micro: Microbiology 10/20/22 16:40 Nasal Secretion SARS-CoV-2 Antigen (Rapid) - Final Radiography Diagnostic Testing: Radiology Impression Chest X-Ray 10/20/22 16:50 IMPRESSION: Cardiomegaly with interstitial edema and moderate right/trace left pleural effusions. Cannot rule out superimposed infection in the right lung base. Electronically Signed: Charbel Byrne MD at 17:18 EDT , Physical Exam Const alert, oriented x3 and no apparent distress Constitutional Narrative: frail General Appearance: cooperative HEENT normocephalic, head/scalp atraumatic and moist oral mucous membranes Eyes PERRL, EOMs intact bilaterally and conjunctivae normal Neck no lymphadenopathy Lymph Lymphatic: no lymphadenopathy noted Resp Resp Narrative: mildly diminished breath sounds bibasally. No wheezes or crackles. On 2 L of oxygen by nasal cannula. Cardio regular rate, regular rhythm, S1 normal heart sound, S2 normal heart sound and no murmurs GI normal to inspection, nondistended, normoactive bowel sounds, soft to palpation, non-tender and non-distended Extremity normal to inspection, full ROM and no clubbing, cyanosis or edema Skin General Skin Exam: no breakdown Neuro oriented x3, CN's II-XII intact bilaterally and moves all extremities Sensorium / Orientation: awake and alert Motor Exam: strength 5/5 throughout Psych affect normal Appearance: appropriate Assessment & Plan Assessment/Plan (1) Acute hyperkalemia: (2) ESRD on hemodialysis: (3) Dyspnea: PLAN: Plan #FLuid overload due to missed dialysis * Chest x-ray showed evidence of trace left pleural effusion and moderate right pleural effusion. I think this is all due to fluid overload from missed dialysis. * nephrology on board * Titrate oxygen as needed to maintain saturation above 90%. * Breathing treatments of bronchodilators. * now on 2L of oxygen. For dialysis today. * #Hyperkalemia * Likely due to missed dialysis in the setting of ESRD. * no acute ST changes. Potassium down to 5.6 from 6.4 on admission * Nephrology on board. For dialysis today * #Hypercalcemia: Calcium is slightly down to 10.1 today. Should improve with dialysis. #Chronic respiratory failure due to COPD: On 2 L of oxygen today. Not in exacerbation. Titrate oxygen to maintain saturation above 90%. #Proximal A-fib: On carvedilol and Eliquis #Type tension: On carvedilol #ESRD: On dialysis Wednesdays. Currently being admitted for fluid overload as above. #GERD: On PPI DVT prophylaxis: Already on Eliquis CODE STATUS: Full code * Total time spent on evaluation and management of patient, reviewing chart, discussing plan with patient, discussion with nursing and ancillary staff as well as documentation:42 Charges/Coding Visit Charges Inpatient E&M: 72694 Subs Hosp L2
--- NOTE | 2022-10-21 12:42 | DIALYSIS ---
Hemodialysis x 3.5 hours, net UF 2000 ml, tolerated well. Blood returned to patient, catheter ports closed with heparin. RN report at bedside.
[2022-10-21] MEDS: Calcium Acetate 667 MG Capsule 2001 MG PO ×2 (13:15→16:51)
[2022-10-21] MEDS: Polyethylene Glycol 3350 17 GM PACKET PO (13:16)
[2022-10-21] MEDS: Pantoprazole Sodium 40 MG Tablet PO ×2 (13:16→21:39)
[2022-10-21] MEDS: APIXABAN 2.5 MG TABLET (WCH) PO ×2 (13:17→21:39)
[2022-10-21] MEDS: predniSONE 10 MG Tablet PO (13:18)
[2022-10-21] MEDS: Carvedilol 25 MG Tablet PO ×2 (13:18→21:39)
[2022-10-21] MEDS: Heparin 10,000 UNITS/10 ML Vial IV (13:19)
[2022-10-21] MEDS: DULoxetine Hcl 60 MG Capsule PO (13:19)
[2022-10-21] MEDS: amLODIPine 10 MG Tablet PO (13:21)
[2022-10-21] MEDS: oxyCODONE 5 MG Tablet 10 MG PO ×2 (13:26→21:38)
[2022-10-21] MEDS: Gabapentin 300 MG Capsule PO (13:26)
[2022-10-21] MEDS: Mirtazapine 30 MG Tablet 45 MG PO (21:38)
[2022-10-21] MEDS: Montelukast 10 MG Tablet PO (21:39)
[2022-10-22] VITALS (14 sets, daily range): BP systolic 132–161; BP diastolic 56–73; PULSE 63–84; RESP 16–24; TEMP 36.1–37; O2SAT 94–100
[2022-10-22 04:17] LABS: Absolute Lymphocyte Count 1.01 X10^3/uL (0.83-4.51); Absolute Neutrophil Count 8.1 X10^3/uL (2.0-7.7); Basophil# 0.01 X10^3/uL; Basophil% 0.1 % (0-1); Eosinophil# 0.05 X10^3/uL; Eosinophils% 0.5 % (0-5); Hematocrit 30.2 % (37-47); Hemoglobin 8.9 g/dL (12.0-15.0); Lymphocyte # 1.01 X10^3/ul (0.83-4.51); Lymphocyte % 9.9 % (19-41); Mean Corp Hgb Conc 29.5 g/dL (32-36); Mean Corpuscular Hgb 27.8 pg (27.0-32.0); Mean Corpuscular Volume 94.4 fL (81-99); Mean Platelet Vol. 9.1 fl (6.2-12.0); Monocyte# 0.98 X10^3/uL; Monocyte% 9.6 % (0-10); NRBC Flagged by Analyzer 0 % (0-5); Neutrophil # 8.12 X10^3/uL (2.7-7.7); Neutrophil % 79.6 % (47-70); POSITIVE MORPHOLOGY YES; Platelet Count 207 K/mm3 (150-450); RBC Distribution Width CV 20.6 % (11.6-14.6); RBC Distribution Width SD 70.8 fl (35.1-43.9); White Blood Count 10.2 K/mm3 (4.4-11.0)
[2022-10-22 04:32] LABS: Differential Indicated SCAN CRITERIA MET
[2022-10-22 04:36] LABS: Anion Gap 2 (5-15); BUN 29 mg/dL (7-18); BUN/Creat Ratio 6.2 RATIO (10-20); Calcium,Total 8.8 mg/dL (8.5-10.1); Chloride 102 mmol/L (98-107); Creatinine, Serum 4.66 mg/dL (0.55-1.02); EST Glomerular Filtration Rate 10 mL/min (>60); Est Glom Filt Rate - Afr Amer 12 mL/min (>60); Estimated Creatinine Clearance 11.51 ml/min; Glucose 88 mg/dL (74-106); Potassium 4.5 mmol/L (3.5-5.1); Sodium Level 135 mmol/L (136-145)
[2022-10-22] MEDS: hydrALAZINE 50 MG Tablet 100 MG PO ×3 (05:59→21:07)
[2022-10-22] MEDS: Dicyclomine 10 MG Capsule 20 MG PO ×3 (06:00→16:08)
[2022-10-22 06:14] LABS: Anisocytosis 1+; Differential Comment SCANNED; Hypochromasia 2+; Microcytosis 1+
[2022-10-22] MEDS: Ipratropium/Albuterol Sulfate 3 ML AMPUL.NEB INHALATION ×3 (08:29→20:10)
[2022-10-22] MEDS: Calcium Acetate 667 MG Capsule 2001 MG PO ×3 (09:52→16:08)
[2022-10-22] MEDS: DULoxetine Hcl 60 MG Capsule PO (09:53)
[2022-10-22] MEDS: Pantoprazole Sodium 40 MG Tablet PO ×2 (09:53→21:07)
[2022-10-22] MEDS: APIXABAN 2.5 MG TABLET (WCH) PO ×2 (09:54→21:08)
[2022-10-22] MEDS: Carvedilol 25 MG Tablet PO ×2 (09:54→21:07)
[2022-10-22] MEDS: predniSONE 10 MG Tablet PO (09:55)
[2022-10-22] MEDS: amLODIPine 10 MG Tablet PO (09:55)
[2022-10-22] MEDS: Polyethylene Glycol 3350 17 GM PACKET PO (09:56)
[2022-10-22] MEDS: oxyCODONE 5 MG Tablet 10 MG PO ×2 (10:04→21:07)
[2022-10-22] MEDS: Gabapentin 300 MG Capsule PO (10:04)
--- NOTE | 2022-10-22 11:05 | PN_ITS ---
Subjective Subjective Patient seen and examined. She complained of shortness of breath. She denied any chest pain, palpitations, dizziness, nausea or vomiting. She did admit to wheezing. Objective Data Objective Data Vital Signs: Vital Signs Temp Pulse Resp BP Pulse Ox O2 Del Method O2 Flow Rate 97 F L 78 22 H 154/73 H 100 Nasal Cannula 4 10/22/22 08:17 10/22/22 08:29 10/22/22 08:29 10/22/22 08:17 10/22/22 08:17 10/22/22 08:17 10/22/22 09:30 Oxygen Flow Rate (L/min) 4 Oxygen Delivery Method Nasal Cannula Weight: 143 lb 1.28 oz Body Mass Index (BMI) 21.1 Intake & Output: Intake and Output for Last 24 Hours 10/20/22 10/21/22 10/22/22 23:59 23:59 23:59 Intake Total 600 / 600 Output Total 0 / 0 0 / 0 Balance 600 / 600 0 / 0 Medical Nutrition Assessment Dietitian: Malnutrition Criteria Met Start: 10/21/22 13: 47 Freq: Status: Active Protocol: Document 10/21/22 13:47 STUART (Rec: 10/21/22 13:47 MALCOLM [id number]) Nutrition Malnutrition Evidence of Malnutrition Exists Yes Malnutrition (severe): Chronic Evidenced By Suboptimal Energy Intake ( Severe),Weight Loss (Severe) Clinical Problem Chronic Disease or Condition Related Malnutrition Etiology related to ESRD and inability to meet estimated nutrient needs Signs/Symptoms as evidenced by significant weight loss of 7.1% in ~1 month per EMR wt hx and pt report of oral intakes <25% of estimated nutrient needs and poor appetite for the past 1-2 months. Status Active Problem Recommendation Dietitian Recommendations/Changes Continue with liberalized Cardiac: Heart Healthy diet at this time as well as Nepro 120mL 4x/day with medpass to help increase oral intakes. Will start Ensure Pudding with lunch and Magic Cup with dinner to help further increase oral intakes. May recommend diet liberalization more if oral intakes do not improve. May recommend fluid restriction as needed. Lab / Micro Data Result Diagrams: 10/22/22 03:55 10/22/22 03:55 Labs: Laboratory Results - last 24 hr 10/22/22 03:55: WBC 10.2, RBC 3.20 L, Hgb 8.9 L, Hct 30.2 L, MCV 94.4, MCH 27.8, MCHC 29.5 L, RDW Std Deviation 70.8 H, RDW Coeff of Destiny 20.6 H, Plt Count 207, MPV 9.1, Immature Gran % (Auto) 0.300, Neut % (Auto) 79.6 H, Lymph % (Auto) 9.9 L, [place] % (Auto) 9.6, Eos % (Auto) 0.5, Baso % (Auto) 0.1, Absolute Neuts (auto) 8.1 H, Absolute Lymphs (auto) 1.01, Nucleated RBC % 0, Differential Comment SCANNED, Hypochromasia 2+, Anisocytosis 1+, Microcytosis 1+ 10/22/22 03:55: Sodium 135 L, Potassium 4.5, Chloride 102, Carbon Dioxide 31.0, Anion Gap 2 L, BUN 29 H, Creatinine 4.66 H, Estim Creat Clear Calc 11.51, Est GFR (MDRD) Af Amer 12 L, Est GFR (MDRD) Non-Af 10 L, BUN/Creatinine Ratio 6.2 L, Glucose 88, Calcium 8.8 Micro: Microbiology 10/20/22 16:40 Nasal Secretion SARS-CoV-2 Antigen (Rapid) - Final Physical Exam Const alert and oriented x3 Constitutional Narrative: frail, in moderat General Appearance: cooperative HEENT normocephalic, head/scalp atraumatic and moist oral mucous membranes Eyes PERRL, EOMs intact bilaterally and conjunctivae normal Neck no lymphadenopathy and supple Lymph Lymphatic: no lymphadenopathy noted Resp Resp Narrative: mildly diminished breath sounds bibasally. No wheezes or crackles. On 4 L of oxygen by nasal cannula. Mild wheezing bilaterally Cardio regular rate, regular rhythm, S1 normal heart sound, S2 normal heart sound and no murmurs GI normal to inspection, nondistended, normoactive bowel sounds, soft to palpation, non-tender and non-distended Extremity normal to inspection, full ROM, normal capillary refill and no clubbing, cyanosis or edema Skin General Skin Exam: no breakdown Neuro oriented x3, CN's II-XII intact bilaterally and moves all extremities Sensorium / Orientation: awake and alert Motor Exam: strength 5/5 throughout Psych affect normal Appearance: appropriate Assessment & Plan Assessment/Plan (1) Acute hyperkalemia: (2) ESRD on hemodialysis: (3) Dyspnea: PLAN: Plan #FLuid overload due to missed dialysis * Chest x-ray showed evidence of trace left pleural effusion and moderate right pleural effusion. I think this is all due to fluid overload from missed dialysis. * Consult nephrology. Nephrology to dialyze tomorrow according to ED doctor spoke to nephrology. * Titrate oxygen as needed to maintain saturation above 90%. * Breathing treatments of bronchodilators. * had dialysis yesterday. * will need dialysis tomorrow. * #Hyperkalemia * Likely due to missed dialysis in the setting of ESRD. * There are no acute EKG changes. Potassium is 6.4. * Nephrology consulted. * #Hypercalcemia: Calcium is 10.2. Should improve with dialysis. #Chronic respiratory failure due to COPD: * On 4 L of oxygen. feels short of breath today. * give breathing treatment with bronchodilators. Titrate oxygen to maintain sats >90% * * #Proximal A-fib: On carvedilol and Eliquis #Hypertension: On carvedilol #ESRD: On dialysis Wednesdays. Currently being admitted for fluid overload as above. #GERD: On PPI DVT prophylaxis: Already on Eliquis CODE STATUS: Full code Total time spent on evaluation and management of patient, reviewing chart, discussing plan with patient, discussion with nursing and ancillary staff as well as documentation: 42 mins Charges/Coding Visit Charges Inpatient E&M: 93102 Subs Hosp L2
[2022-10-22] MEDS: Acetaminophen 325 MG Tablet 650 MG PO (12:53)
--- NOTE | 2022-10-22 13:27 | NURSING ---
Bel from [facility] returned yesterday's phone call from case management. I explained that we were unclear that if we were to discharge the patient today if [facility] was available and planning to transport her to her morning dialysis. Bel was unsure. Bel went on to explain that it was the patient that changed her chair time to 3pm. Bel explained she had told the patient that [facility] would not be available at that time to which the patient responded, then I won't go. Bel was unclear whether the patient had changed the time for that day only, or all days going forward. We agreed that it will be necessary to confirm the patient's chair time and [facility]'s availability on Sunday.
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
[2022-10-22] MEDS: Montelukast 10 MG Tablet PO (21:08)
[2022-10-22] MEDS: Mirtazapine 30 MG Tablet 45 MG PO (21:08)
[2022-10-23] VITALS (13 sets, daily range): BP systolic 125–166; BP diastolic 63–80; PULSE 66–86; RESP 16–20; TEMP 36.6–36.9; O2SAT 95–100
[2022-10-23 04:31] LABS: Absolute Lymphocyte Count 1.12 X10^3/uL (0.83-4.51); Absolute Neutrophil Count 7.3 X10^3/uL (2.0-7.7); Basophil# 0.02 X10^3/uL; Basophil% 0.2 % (0-1); Eosinophil# 0.14 X10^3/uL; Eosinophils% 1.5 % (0-5); Hematocrit 31.4 % (37-47); Hemoglobin 9.1 g/dL (12.0-15.0); Lymphocyte # 1.12 X10^3/ul (0.83-4.51); Lymphocyte % 11.9 % (19-41); Mean Corpuscular Hgb 27.6 pg (27.0-32.0); Mean Corpuscular Volume 95.2 fL (81-99); Mean Platelet Vol. 9.2 fl (6.2-12.0); Monocyte# 0.78 X10^3/uL; Monocyte% 8.3 % (0-10); NRBC Flagged by Analyzer 0 % (0-5); Neutrophil # 7.25 X10^3/uL (2.7-7.7); Neutrophil % 77.4 % (47-70); POSITIVE MORPHOLOGY YES; Platelet Count 237 K/mm3 (150-450); RBC Distribution Width CV 20.2 % (11.6-14.6); RBC Distribution Width SD 71.3 fl (35.1-43.9); White Blood Count 9.4 K/mm3 (4.4-11.0)
[2022-10-23 04:48] LABS: Anion Gap 3 (5-15); BUN 47 mg/dL (7-18); BUN/Creat Ratio 7.3 RATIO (10-20); Calcium,Total 9.5 mg/dL (8.5-10.1); Chloride 103 mmol/L (98-107); Creatinine, Serum 6.47 mg/dL (0.55-1.02); EST Glomerular Filtration Rate 7 mL/min (>60); Est Glom Filt Rate - Afr Amer 8 mL/min (>60); Estimated Creatinine Clearance 8.29 ml/min; Glucose 97 mg/dL (74-106); Potassium 4.9 mmol/L (3.5-5.1); Sodium Level 138 mmol/L (136-145)
[2022-10-23 04:54] LABS: Differential Indicated SCAN CRITERIA MET
[2022-10-23] MEDS: hydrALAZINE 50 MG Tablet 100 MG PO ×3 (05:35→20:32)
[2022-10-23] MEDS: Dicyclomine 10 MG Capsule 20 MG PO ×3 (05:35→16:33)
[2022-10-23 05:44] LABS: Anisocytosis 2+; Ovalocyte 1+
[2022-10-23] MEDS: Ipratropium/Albuterol Sulfate 3 ML AMPUL.NEB INHALATION ×3 (07:32→19:59)
[2022-10-23] MEDS: Calcium Acetate 667 MG Capsule 2001 MG PO ×3 (08:00→16:34)
[2022-10-23] MEDS: DULoxetine Hcl 60 MG Capsule PO (08:00)
[2022-10-23] MEDS: Folic Acid/Vitamin B Comp W-C 1 Capsule 1 CAP PO (08:00)
[2022-10-23] MEDS: Polyethylene Glycol 3350 17 GM PACKET PO (08:00)
[2022-10-23] MEDS: APIXABAN 2.5 MG TABLET (WCH) PO ×2 (08:01→20:32)
[2022-10-23] MEDS: Pantoprazole Sodium 40 MG Tablet PO ×2 (08:01→20:34)
[2022-10-23] MEDS: amLODIPine 10 MG Tablet PO (08:01)
[2022-10-23] MEDS: Nepro Liquid 120 ML LIQUID PO ×4 (08:01→20:34)
[2022-10-23] MEDS: predniSONE 10 MG Tablet PO (08:02)
[2022-10-23] MEDS: Gabapentin 300 MG Capsule PO (08:11)
[2022-10-23] MEDS: oxyCODONE 5 MG Tablet 10 MG PO ×2 (08:11→20:37)
[2022-10-23] MEDS: Gabapentin 600 MG Tablet PO (08:15)
--- NOTE | 2022-10-23 09:32 | PN.HOSP_ITS ---
Reason for Visit Reason for Visit: Diagnoses Hyperkalemia (10/20/22) End stage renal disease (10/20/22) Dyspnea, unspecified (10/20/22) Dependence on renal dialysis (10/20/22) Subjective Subjective Slowly feeling better, still having some shortness of breath and feeling tired. Has some abdominal tenderness and reports she has not had a bowel movement for several days and feels that is the culprit. Seen on dialysis today Objective Data Objective Data Vital Signs: Vital Signs Temp Pulse Resp BP Pulse Ox O2 Del Method O2 Flow Rate 98.3 F 74 18 166/80 H 95 Nasal Cannula 2 10/23/22 08:36 10/23/22 08:36 10/23/22 08:36 10/23/22 08:36 10/23/22 07:33 10/23/22 08:36 10/23/22 08:34 Oxygen Flow Rate (L/min) 2 Oxygen Delivery Method Nasal Cannula Weight: 64.9 kg Body Mass Index (BMI) 21.1 Intake & Output: Intake and Output for Last 24 Hours 10/21/22 10/22/22 10/23/22 23:59 23:59 23:59 Intake Total 600 / 600 600 / 600 Output Total 0 / 0 0 / 0 0 / 0 Balance 600 / 600 600 / 600 0 / 0 Medical Nutrition Assessment Dietitian: Malnutrition Criteria Met Start: 10/21/22 13:47 Freq: Status: Active Protocol: Document 10/21/22 13:47 STUART (Rec: 10/21/22 13:47 MALCOLM [id number]) Nutrition Malnutrition Evidence of Malnutrition Exists Yes Malnutrition (severe): Chronic Evidenced By Suboptimal Energy Intake ( Severe),Weight Loss (Severe) Clinical Problem Chronic Disease or Condition Related Malnutrition Etiology related to ESRD and inability to meet estimated nutrient needs Signs/Symptoms as evidenced by significant weight loss of 7.1% in ~1 month per EMR wt hx and pt report of oral intakes <25% of estimated nutrient needs and poor appetite for the past 1-2 months. Status Active Problem Recommendation Dietitian Recommendations/Changes Continue with liberalized Cardiac: Heart Healthy diet at this time as well as Nepro 120mL 4x/day with medpass to help increase oral intakes. Will start Ensure Pudding with lunch and Magic Cup with dinner to help further increase oral intakes. May recommend diet liberalization more if oral intakes do not improve. May recommend fluid restriction as needed. Lab / Micro Data Result Diagrams: 10/23/22 04:15 10/23/22 04:15 Labs: Laboratory Results - last 24 hr 10/23/22 04:15: WBC 9.4, RBC 3.30 L, Hgb 9.1 L, Hct 31.4 L, MCV 95.2, MCH 27.6, MCHC 29.0 L, RDW Std Deviation 71.3 H, RDW Coeff of Destiny 20.2 H, Plt Count 237, MPV 9.2, Immature Gran % (Auto) 0.700, Neut % (Auto) 77.4 H, Lymph % (Auto) 11.9 L, [place] % (Auto) 8.3, Eos % (Auto) 1.5, Baso % (Auto) 0.2, Absolute Neuts (auto) 7.3, Absolute Lymphs (auto) 1.12, Nucleated RBC % 0, Anisocytosis 2+, Ovalocytes 1+ 10/23/22 04:15: Sodium 138, Potassium 4.9, Chloride 103, Carbon Dioxide 32.0, Anion Gap 3 L, BUN 47 H, Creatinine 6.47 H, Estim Creat Clear Calc 8.29, Est GFR (MDRD) Af Amer 8 L, Est GFR (MDRD) Non-Af 7 L, BUN/Creatinine Ratio 7.3 L, Glucose 97, Calcium 9.5 Micro: Microbiology 10/20/22 16:40 Nasal Secretion SARS-CoV-2 Antigen (Rapid) - Final Physical Exam Narrative General: Alert, oriented, no apparent distress HEENT: Atraumatic, normocephalic Eyes: Anicteric, normal conjunctiva, extraocular movements grossly intact Neck: Supple Respiratory: Slightly diminished at bases, no increased work of breathing Cardiovascular: Regular rate and rhythm GI: Soft, slightly tender on palpation with hand but not with stethescope Extremities: Trace bilateral extremity edema Musculoskeletal: Moving all extremities Neuro: No overt focal neurological deficits Skin: No rashes appreciated Psych: Cooperative Assessment & Plan Assessment/Plan (1) Acute hyperkalemia: (2) ESRD on hemodialysis: (3) Dyspnea: PLAN: Plan #Shortness of breath secondary to pleural occlusion/fluid overload secondary to missed dialysis -Has been improving with resumption of dialysis -Dialysis again today -Continue nebs, likely DC tomorrow if stable #Chronic respiratory failure secondary to COPD -Reportedly wears home O2, currently with good saturations -Continue nebs #Hyperkalemia?resolved #Proximal A-fib: On carvedilol and Eliquis #Hypertension: On carvedilol #ESRD: On dialysis Wednesdays. #GERD: On PPI DVT prophylaxis: Already on Eliquis Charges/Coding Visit Charges Inpatient E&M: 17899 Subs Hosp L2
--- NOTE | 2022-10-23 10:05 | CASEMGMT ---
MARIA GUADALUPE called [facility] and spoke with Yadira. Patient's dialysis time is M,W,F at 9:45-1:15. Sunday patient's dialysis was changed for 3p and she did not have transport so patient missed. MARIA GUADALUPE called [facility] and spoke with Nadya letting her know patient is in the hospital. MARIA GUADALUPE let Nadya know patient will be on her regular schedule and will probably return on Sunday. 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 [facility] told her they cannot transport her at that time. Plan: d/c back to [facility]. Dialysis will be M,W,F at 9:45a Evy GONZALEZ
[2022-10-23] MEDS: Heparin 10,000 UNITS/10 ML Vial 1600 UNITS IV (10:10)
[2022-10-23] MEDS: Calcium Carbonate 500 MG Tablet PO (10:31)
--- NOTE | 2022-10-23 10:40 | CASEMGMT ---
Updates sent to [facility]. SW also wrote on fax face sheet possible d/c tomorrow. Evy GONZALEZ
[2022-10-23] MEDS: Famotidine 20 MG Tablet 10 MG PO (12:06)
[2022-10-23] MEDS: Carvedilol 25 MG Tablet PO ×2 (12:10→20:33)
[2022-10-23] MEDS: Midodrine HCl 5 MG Tablet 10 MG PO (12:10)
[2022-10-23] MEDS: Psyllium 1 PACKET PO (12:14)
--- NOTE | 2022-10-23 12:18 | PN.RENAL_ITS ---
Subjective Subjective No neew events Objective Data Objective Data Vital Signs: Vital Signs Temp Pulse Resp BP Pulse Ox O2 Del Method O2 Flow Rate 98.3 F 74 18 166/80 H 95 Nasal Cannula 2 10/23/22 08:36 10/23/22 12:12 10/23/22 08:36 10/23/22 08:36 10/23/22 07:33 10/23/22 08:36 10/23/22 08:34 Oxygen Flow Rate (L/min) 2 Oxygen Delivery Method Nasal Cannula Weight: 64.9 kg Body Mass Index (BMI) 21.1 Intake & Output: Intake and Output for Last 24 Hours 10/21/22 10/22/22 10/23/22 23:59 23:59 23:59 Intake Total 600 / 600 600 / 600 Output Total 0 / 0 0 / 0 0 / 0 Balance 600 / 600 600 / 600 0 / 0 Medical Nutrition Assessment Dietitian: Malnutrition Criteria Met Start: 10/21/22 13:47 Freq: Status: Active Protocol: Document 10/21/22 13:47 STUART (Rec: 10/21/22 13:47 STUART [id number]) Nutrition Malnutrition Evidence of Malnutrition Exists Yes Malnutrition (severe): Chronic Evidenced By Suboptimal Energy Intake ( Severe),Weight Loss (Severe) Clinical Problem Chronic Disease or Condition Related Malnutrition Etiology related to ESRD and inability to meet estimated nutrient needs Signs/Symptoms as evidenced by significant weight loss of 7.1% in ~1 month per EMR wt hx and pt report of oral intakes <25% of estimated nutrient needs and poor appetite for the past 1-2 months. Status Active Problem Recommendation Dietitian Recommendations/Changes Continue with liberalized Cardiac: Heart Healthy diet at this time as well as Nepro 120mL 4x/day with medpass to help increase oral intakes. Will start Ensure Pudding with lunch and Magic Cup with dinner to help further increase oral intakes. May recommend diet liberalization more if oral intakes do not improve. May recommend fluid restriction as needed. Lab / Micro Data Result Diagrams: 10/23/22 04:15 10/23/22 04:15 Labs: Laboratory Results - last 24 hr 10/23/22 04:15: WBC 9.4, RBC 3.30 L, Hgb 9.1 L, Hct 31.4 L, MCV 95.2, MCH 27.6, MCHC 29.0 L, RDW Std Deviation 71.3 H, RDW Coeff of Destiny 20.2 H, Plt Count 237, MPV 9.2, Immature Gran % (Auto) 0.700, Neut % (Auto) 77.4 H, Lymph % (Auto) 11.9 L, [place] % (Auto) 8.3, Eos % (Auto) 1.5, Baso % (Auto) 0.2, Absolute Neuts (auto) 7.3, Absolute Lymphs (auto) 1.12, Nucleated RBC % 0, Anisocytosis 2+, Ovalocytes 1+ 10/23/22 04:15: Sodium 138, Potassium 4.9, Chloride 103, Carbon Dioxide 32.0, Anion Gap 3 L, BUN 47 H, Creatinine 6.47 H, Estim Creat Clear Calc 8.29, Est GFR (MDRD) Af Amer 8 L, Est GFR (MDRD) Non-Af 7 L, BUN/Creatinine Ratio 7.3 L, Glucose 97, Calcium 9.5 Micro: Microbiology 10/20/22 16:40 Nasal Secretion SARS-CoV-2 Antigen (Rapid) - Final Physical Exam Narrative Alert awake oriented x 3 no obvious distress no pallor no icterus no JVD s1s2 no murmurs lungs clear abdomen soft no organomegaly no edema no cyanosis Assessment & Plan Assessment/Plan (1) ESRD on hemodialysis: PLAN: on HD MWF schedule. last HD was yesterday. seen on dialysis today. Able to remove about 2-3 L. Hyperkalemia. s/p HD
--- NOTE | 2022-10-23 14:43 | CHAPLAIN ---
Type of Pastoral Visit _x__ Initial Visit ___ Follow-up Visit ___ On-call Visit ___ General Patient Visit ___ Spiritual Assessment ___ Family Conference ___ Bereavement ___ Rapid Response ___ Code Blue ___ Other (describe below) Pastoral Care Referral From _x__ Patient ___ Family ___ Nurse ___ Physician ___ Shot Bagger ___ Whiteprinting Machine Operator ___ Other (describe below) Sacrament/Intervention _x__ Active listening ___ Anointing ___ Evangelical ___ Bereavement ___ Communion ___ Flaca exploration ___ ___ Life review _x__ Prayer ___ Reconciliation ___ Sacrament of Sick ___ Supportive presence ___ Wedding ___ Other (describe below) Pastoral Comments patient is sitting in chair and alert; pt has been seen before in numerous admissions; pt is welcoming and gives updates on health and life; pt asks questions about meaning in ill health and aging process; pt discusses spiritual peace; pt welcomes prayer
--- NOTE | 2022-10-23 14:52 | CASEMGMT ---
SW spoke with patient letting her know that the current Healthcare Power of Elevator Erector (HCPOA) papers on file at [facility] list her daughter Salima. Patient said she does not want Calyoannaa as her HCPOA. Patient wants her son Jose and then her niece Isela as the first alternate. Patient gave SW permission to call Jose and Isela to obtain their addresses. SW called Jose. Introduced self and role at [facility]. SW explained SW was assisting patient in re-doing her HCPOA papers and SW needs his address. Jose's address is [address]. SW called Isela patient's niece. Introduced self and role at [facility]. SW explained SW was assisting patient in re-doing her HCPOA papers and SW needs her address. Isela Ochoa, [address] , [place] [address]. SW assisted patient with completing HCPOA papers. Copies were made and given to patient along with original. A copy was also placed in patient's chart. Evy Paredes BASKETBALLS AND FOOTBALLS REVERSER CARLOS
[2022-10-23] MEDS: Montelukast 10 MG Tablet PO (20:34)
[2022-10-23] MEDS: Mirtazapine 30 MG Tablet 45 MG PO (20:35)
[2022-10-23] MEDS: Albuterol 2.5 MG/3 ML VIAL.NEB. INHALATION (22:32)
[2022-10-24] VITALS (11 sets, daily range): BP systolic 121–164; BP diastolic 62–72; PULSE 62–78; RESP 14–20; TEMP 36.4–36.9; O2SAT 96–100
[2022-10-24] MEDS: hydrALAZINE 50 MG Tablet 100 MG PO ×3 (05:21→21:23)
[2022-10-24] MEDS: Dicyclomine 10 MG Capsule 20 MG PO ×3 (05:21→17:10)
[2022-10-24 06:35] LABS: Absolute Lymphocyte Count 1.37 X10^3/uL (0.83-4.51); Absolute Neutrophil Count 6.3 X10^3/uL (2.0-7.7); Basophil# 0.03 X10^3/uL; Basophil% 0.3 % (0-1); Eosinophil# 0.16 X10^3/uL; Eosinophils% 1.9 % (0-5); Hematocrit 32.7 % (37-47); Hemoglobin 9.4 g/dL (12.0-15.0); Lymphocyte # 1.37 X10^3/ul (0.83-4.51); Lymphocyte % 15.9 % (19-41); Mean Corp Hgb Conc 28.7 g/dL (32-36); Mean Corpuscular Hgb 27.4 pg (27.0-32.0); Mean Corpuscular Volume 95.3 fL (81-99); Mean Platelet Vol. 9.3 fl (6.2-12.0); Monocyte# 0.75 X10^3/uL; Monocyte% 8.7 % (0-10); NRBC Flagged by Analyzer 0 % (0-5); Neutrophil # 6.28 X10^3/uL (2.7-7.7); Neutrophil % 72.6 % (47-70); POSITIVE MORPHOLOGY YES; Platelet Count 269 K/mm3 (150-450); RBC Distribution Width CV 20.7 % (11.6-14.6); RBC Distribution Width SD 71.8 fl (35.1-43.9); Red Blood Count 3.43 M/mm3 (4.2-5.4); White Blood Count 8.6 K/mm3 (4.4-11.0)
[2022-10-24 06:54] LABS: Differential Indicated SCAN CRITERIA MET
[2022-10-24 07:02] LABS: Anion Gap 5 (5-15); BUN 35 mg/dL (7-18); BUN/Creat Ratio 7.5 RATIO (10-20); Calcium,Total 9.2 mg/dL (8.5-10.1); Chloride 105 mmol/L (98-107); Creatinine, Serum 4.66 mg/dL (0.55-1.02); EST Glomerular Filtration Rate 10 mL/min (>60); Est Glom Filt Rate - Afr Amer 12 mL/min (>60); Estimated Creatinine Clearance 11.51 ml/min; Glucose 76 mg/dL (74-106); Potassium 5.4 mmol/L (3.5-5.1); Sodium Level 137 mmol/L (136-145)
[2022-10-24 07:06] LABS: Anisocytosis 1+
[2022-10-24] MEDS: Ipratropium/Albuterol Sulfate 3 ML AMPUL.NEB INHALATION ×3 (07:17→19:59)
[2022-10-24] MEDS: oxyCODONE 5 MG Tablet 10 MG PO ×3 (07:59→21:30)
[2022-10-24] MEDS: Calcium Acetate 667 MG Capsule 2001 MG PO ×3 (08:02→17:10)
[2022-10-24] MEDS: predniSONE 10 MG Tablet PO (08:02)
[2022-10-24] MEDS: APIXABAN 2.5 MG TABLET (WCH) PO ×2 (08:52→21:23)
[2022-10-24] MEDS: DULoxetine Hcl 60 MG Capsule PO (08:52)
[2022-10-24] MEDS: Carvedilol 25 MG Tablet PO ×2 (08:52→21:23)
[2022-10-24] MEDS: amLODIPine 10 MG Tablet PO (08:53)
[2022-10-24] MEDS: Pantoprazole Sodium 40 MG Tablet PO ×2 (08:53→21:23)
[2022-10-24] MEDS: Polyethylene Glycol 3350 17 GM PACKET 34 GM PO (08:53)
[2022-10-24] MEDS: Famotidine 20 MG Tablet 10 MG PO (08:54)
[2022-10-24] MEDS: Nepro Liquid 120 ML LIQUID PO ×2 (08:55→21:31)
--- NOTE | 2022-10-24 09:28 | CT_ITS ---
STUDY: CT CHEST WITHOUT CONTRAST REASON FOR EXAM: Female, 72 years old. SOB, RLL pleuritic pain, effusions RADIATION DOSAGE (If Supplied By Facility): CTDIvol = ( 7.88 ) mGy, DLP = ( 267.72 ) mGycm TECHNIQUE: Transaxial imaging was performed without the administration of intravenous contrast material. Multiplanar coronal and sagittal images were reformatted. Individualized dose optimization techniques were used for this CT. COMPARISON: Comparison is made with prior chest radiograph done earlier in the day. FINDINGS: CHEST A right-sided double-lumen catheter is seen with the tip in the superior vena cava. Bilateral pleural effusions right greater than left with right basilar atelectasis and/or infiltrate. Findings suggestive of round atelectasis in the posterior medial segment of the right lower lobe. There are calcifications of the coronary arteries. There are multiple small lymph nodes within the mediastinum, which are normal in size and morphology most compatible with reactive lymph hyperplasia. Normal hilar regions. Normal unenhanced pulmonary arteries. There is atherosclerotic calcification of the aortic arch with tortuosity and elongation of the aortic arch and descending thoracic aorta. There is an increased kyphosis of the thoracic spine. There is no demonstrated abnormality of the visualized upper abdomen. CT/Chest without Contrast IMPRESSION: Bilateral pleural effusions right greater than left with bibasilar atelectasis more prominent at the right lung base. Findings suggestive of rounded atelectasis in the posterior medial segment of the right lower lobe. Electronically Signed: Lopez Barraza MD at 10:55 EDT ,
--- NOTE | 2022-10-24 09:30 | PCM.PN.HOSP ---
Reason for Visit Reason for Visit: Diagnoses Hyperkalemia (10/20/22) End stage renal disease (10/20/22) Dyspnea, unspecified (10/20/22) Dependence on renal dialysis (10/20/22) Subjective Subjective Reports she still feels short of breath and like she is drowning in fluid and has been having sharp pain when she breathes in on the right lower part of her chest wall and feels like she broke ribs. Objective Data Objective Data Vital Signs: Vital Signs Temp Pulse Resp BP Pulse Ox O2 Del Method O2 Flow Rate 97.6 F L 70 14 158/62 H 100 Nasal Cannula 2 10/24/22 08:49 10/24/22 08:49 10/24/22 08:49 10/24/22 08:49 10/24/22 08:49 10/24/22 08:49 10/24/22 08:49 Oxygen Flow Rate (L/min) 2 Oxygen Delivery Method Nasal Cannula Weight: 64.9 kg Body Mass Index (BMI) 21.1 Intake & Output: Intake and Output for Last 24 Hours 10/22/22 10/23/22 10/24/22 23:59 23:59 23:59 Intake Total 600 / 600 Output Total 0 / 0 1999 / 1999 0 / 0 Balance 600 / 600 -1999 0 / 0 Medical Nutrition Assessment Dietitian: Malnutrition Criteria Met Start: 10/21/22 13:47 Freq: Status: Active Protocol: Document 10/21/22 13:47 STUART (Rec: 10/21/22 13:47 MALCOLM [id number]) Nutrition Malnutrition Evidence of Malnutrition Exists Yes Malnutrition (severe): Chronic Evidenced By Suboptimal Energy Intake ( Severe),Weight Loss (Severe) Clinical Problem Chronic Disease or Condition Related Malnutrition Etiology related to ESRD and inability to meet estimated nutrient needs Signs/Symptoms as evidenced by significant weight loss of 7.1% in ~1 month per EMR wt hx and pt report of oral intakes <25% of estimated nutrient needs and poor appetite for the past 1-2 months. Status Active Problem Recommendation Dietitian Recommendations/Changes Continue with liberalized Cardiac: Heart Healthy diet at this time as well as Nepro 120mL 4x/day with medpass to help increase oral intakes. Will start Ensure Pudding with lunch and Magic Cup with dinner to help further increase oral intakes. May recommend diet liberalization more if oral intakes do not improve. May recommend fluid restriction as needed. Lab / Micro Data Result Diagrams: 10/24/22 05:55 10/24/22 05:55 Labs: Laboratory Results - last 24 hr 10/24/22 05:55: WBC 8.6, RBC 3.43 L, Hgb 9.4 L, Hct 32.7 L, MCV 95.3, MCH 27.4, MCHC 28.7 L, RDW Std Deviation 71.8 H, RDW Coeff of Destiny 20.7 H, Plt Count 269, MPV 9.3, Immature Gran % (Auto) 0.600, Neut % (Auto) 72.6 H, Lymph % (Auto) 15.9 L, [place] % (Auto) 8.7, Eos % (Auto) 1.9, Baso % (Auto) 0.3, Absolute Neuts (auto) 6.3, Absolute Lymphs (auto) 1.37, Nucleated RBC % 0, Anisocytosis 1+ 10/24/22 05:55: Sodium 137, Potassium 5.4 H, Chloride 105, Carbon Dioxide 27.0, Anion Gap 5, BUN 35 H, Creatinine 4.66 H, Estim Creat Clear Calc 11.51, Est GFR (MDRD) Af Amer 12 L, Est GFR (MDRD) Non-Af 10 L, BUN/Creatinine Ratio 7.5 L, Glucose 76, Calcium 9.2 Micro: Microbiology 10/20/22 16:40 Nasal Secretion SARS-CoV-2 Antigen (Rapid) - Final Physical Exam Narrative General: Alert, oriented, no apparent distress HEENT: Atraumatic, normocephalic Eyes: Anicteric, normal conjunctiva, extraocular movements grossly intact Neck: Supple Respiratory: Diminished right more than left with slight crackles in the right middle, no increased work of breathing Cardiovascular: Regular rate and rhythm GI: Soft, nontender, does have some tenderness when pushing over right-sided lower ribs Extremities: Trace bilateral extremity edema Musculoskeletal: Moving all extremities Neuro: No overt focal neurological deficits Skin: No rashes appreciated Psych: Cooperative Assessment & Plan Assessment/Plan (1) Acute hyperkalemia: (2) ESRD on hemodialysis: (3) Dyspnea: PLAN: Plan #Shortness of breath secondary to pleural occlusion/fluid overload secondary to missed dialysis -Has been improving with resumption of dialysis -Dialysis again today -Continue nebs, likely DC tomorrow if stable -10/24: Complaining of some right-sided pleuritic pain and said she still feels short of breath. Vitally stable and saturating well but given nature of complaints and persistence despite dialysis will check CT of the chest. If this is suggestive of pneumonia will start antibiotics #Chronic respiratory failure secondary to COPD -Reportedly wears home O2, currently with good saturations -Continue nebs #Hyperkalemia?resolved #Proximal A-fib: On carvedilol and Eliquis #Hypertension: On carvedilol #ESRD: On dialysis Wednesdays. #GERD: On PPI DVT prophylaxis: Already on Eliquis Charges/Coding Visit Charges Inpatient E&M: 46905 Subs Hosp L2
--- NOTE | 2022-10-24 09:34 | RAD_ITS ---
INDICATION: reassess effusion EXAMINATION/TECHNIQUE: X-RAY - XR Chest 1 View COMPARISON: 10/20/2022 FINDINGS: LINES/DEVICES: Double-lumen catheter is again noted on the right with its tip at the SVC/RA junction. LUNGS: Right pleural effusion and right middle and lower lobe infiltrates decreased. Left lung clear. MEDIASTINUM AND CARDIOVASCULAR STRUCTURES: Cardiac silhouette not enlarged. Central airways and mediastinal contour are unremarkable. BONES AND SOFT TISSUES: Unremarkable. RAD/Chest 1 View (Portable) IMPRESSION: Dual-lumen catheter stable in position appears properly placed. Decreased right basilar infiltrate and right pleural effusion. Electronically Signed: Shar Parnell MD, VALERIO at 17:29 EDT ,
--- NOTE | 2022-10-24 09:53 | PCM.PN.REN ---
Subjective Subjective Resting in bed. No overnight events. No complaints today Objective Data Objective Data Vital Signs: Vital Signs Temp Pulse Resp BP Pulse Ox O2 Del Method O2 Flow Rate 97.6 F L 70 14 158/62 H 100 Nasal Cannula 2 10/24/22 08:49 10/24/22 08:49 10/24/22 08:49 10/24/22 08:49 10/24/22 08:49 10/24/22 08:49 10/24/22 08:49 Oxygen Flow Rate (L/min) 2 Oxygen Delivery Method Nasal Cannula Weight: 64.9 kg Body Mass Index (BMI) 21.1 Intake & Output: Intake and Output for Last 24 Hours 10/22/22 10/23/22 10/24/22 23:59 23:59 23:59 Intake Total 600 / 600 Output Total 0 / 0 1999 / 1999 0 / 0 Balance 600 / 600 -1999 0 / 0 Medical Nutrition Assessment Dietitian: Malnutrition Criteria Met Start: 10/21/22 13:47 Freq: Status: Active Protocol: Document 10/21/22 13:47 STUART (Rec: 10/21/22 13:47 MALCOLM [id number]) Nutrition Malnutrition Evidence of Malnutrition Exists Yes Malnutrition (severe): Chronic Evidenced By Suboptimal Energy Intake ( Severe),Weight Loss (Severe) Clinical Problem Chronic Disease or Condition Related Malnutrition Etiology related to ESRD and inability to meet estimated nutrient needs Signs/Symptoms as evidenced by significant weight loss of 7.1% in ~1 month per EMR wt hx and pt report of oral intakes <25% of estimated nutrient needs and poor appetite for the past 1-2 months. Status Active Problem Recommendation Dietitian Recommendations/Changes Continue with liberalized Cardiac: Heart Healthy diet at this time as well as Nepro 120mL 4x/day with medpass to help increase oral intakes. Will start Ensure Pudding with lunch and Magic Cup with dinner to help further increase oral intakes. May recommend diet liberalization more if oral intakes do not improve. May recommend fluid restriction as needed. Lab / Micro Data Result Diagrams: 10/24/22 05:55 10/24/22 05:55 Labs: Laboratory Results - last 24 hr 10/24/22 05:55: WBC 8.6, RBC 3.43 L, Hgb 9.4 L, Hct 32.7 L, MCV 95.3, MCH 27.4, MCHC 28.7 L, RDW Std Deviation 71.8 H, RDW Coeff of Destiny 20.7 H, Plt Count 269, MPV 9.3, Immature Gran % (Auto) 0.600, Neut % (Auto) 72.6 H, Lymph % (Auto) 15.9 L, [place] % (Auto) 8.7, Eos % (Auto) 1.9, Baso % (Auto) 0.3, Absolute Neuts (auto) 6.3, Absolute Lymphs (auto) 1.37, Nucleated RBC % 0, Anisocytosis 1+ 10/24/22 05:55: Sodium 137, Potassium 5.4 H, Chloride 105, Carbon Dioxide 27.0, Anion Gap 5, BUN 35 H, Creatinine 4.66 H, Estim Creat Clear Calc 11.51, Est GFR (MDRD) Af Amer 12 L, Est GFR (MDRD) Non-Af 10 L, BUN/Creatinine Ratio 7.5 L, Glucose 76, Calcium 9.2 Micro: Microbiology 10/20/22 16:40 Nasal Secretion SARS-CoV-2 Antigen (Rapid) - Final Physical Exam Narrative Alert awake, oriented x 3 no JVD s1s2 no murmurs lungs clear abdomen soft, nontender no edema Tunneled HD catheter dressing clean, dry and intact Assessment & Plan Assessment/Plan (1) ESRD on hemodialysis: PLAN: - On HD MWF schedule. last HD was yesterday and tolerated about 2-3 L fluid removal. We will plan for dialysis tomorrow on 2K bath and attempt fluid removal as patient/blood pressure tolerates. Likely will lower dry weight by time of discharge - Hyperkalemia. Potassium is 5.4 today. 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 Changed to renal diet. - Dyspnea; improved somewhat after HD but to have CT chest today - Blood pressures acceptable - Hemoglobin 9.4. Patient receives ANGELI and iron at dialysis. We will monitor hemoglobin trends
[2022-10-24 09:59] LABS: AST(SGOT) 35 U/L (15-37); Alanine Aminotransfer ALT/SGPT 14 U/L (13-56); Albumin, Serum 2.2 g/dL (3.2-5.0); Alkaline Phosphatase 74 U/L (45-117); Globulin 4.7 g/dL (2.2-4.2); Protein, Total 6.9 g/dL (6.4-8.2)
[2022-10-24 10:02] LABS: Procalcitonin 0.14 ng/mL (0.00-0.09)
--- NOTE | 2022-10-24 11:23 | CASEMGMT ---
Addendum entered by Evy Paredes 10/24/22 11:28: SW changed patient's preferred pharmacy. Evy GONZALEZ Original Note: Patient will not be discharged today. MARIA GUADALUPE called [facility] and spoke with Yadira notifying her patient will not be there for dialysis tomorrow. MARIA GUADALUPE called [facility] and notified [facility] that they do not need to transport patient to dialysis tomorrow. MARIA GUADALUPE called [facility] and notified Bel as well. Patient's pharmacy is [facility]. Evy GONZALEZ
--- NOTE | 2022-10-24 13:11 | CASEMGMT ---
MARIA GUADALUPE faxed updates to [facility]. Evy Paredes ACADEMIC INTERVENTIONIST CARLOS
[2022-10-24] MEDS: Mirtazapine 30 MG Tablet 45 MG PO (21:23)
[2022-10-24] MEDS: Montelukast 10 MG Tablet PO (21:23)
[2022-10-25] VITALS (12 sets, daily range): BP systolic 130–174; BP diastolic 64–92; PULSE 60–67; RESP 14–20; TEMP 35.7–36.8; O2SAT 98–100; BMI 21.4
[2022-10-25] MEDS: hydrALAZINE 50 MG Tablet 100 MG PO ×3 (04:51→21:34)
[2022-10-25] MEDS: oxyCODONE 5 MG Tablet 10 MG PO ×4 (04:55→21:33)
[2022-10-25 05:20] LABS: Absolute Lymphocyte Count 1.18 X10^3/uL (0.83-4.51); Basophil# 0.03 X10^3/uL; Basophil% 0.3 % (0-1); Eosinophil# 0.16 X10^3/uL; Eosinophils% 1.7 % (0-5); Hematocrit 29.6 % (37-47); Hemoglobin 8.7 g/dL (12.0-15.0); Lymphocyte # 1.18 X10^3/ul (0.83-4.51); Lymphocyte % 12.6 % (19-41); Mean Corp Hgb Conc 29.4 g/dL (32-36); Mean Corpuscular Hgb 27.2 pg (27.0-32.0); Mean Corpuscular Volume 92.5 fL (81-99); Mean Platelet Vol. 9.6 fl (6.2-12.0); Monocyte# 0.92 X10^3/uL; Monocyte% 9.8 % (0-10); NRBC Flagged by Analyzer 0 % (0-5); POSITIVE MORPHOLOGY YES; Platelet Count 286 K/mm3 (150-450); RBC Distribution Width CV 19.9 % (11.6-14.6); RBC Distribution Width SD 67.7 fl (35.1-43.9); White Blood Count 9.4 K/mm3 (4.4-11.0)
[2022-10-25 05:25] LABS: Differential Indicated SCAN CRITERIA MET
[2022-10-25 05:49] LABS: ALB/GLOB Ratio 0.5 RATIO (0.9-2.4); Anion Gap 3 (5-15); BUN 59 mg/dL (7-18); BUN/Creat Ratio 9.7 RATIO (10-20); Calcium,Total 9.6 mg/dL (8.5-10.1); Chloride 102 mmol/L (98-107); Creatinine, Serum 6.11 mg/dL (0.55-1.02); EST Glomerular Filtration Rate 7 mL/min (>60); Est Glom Filt Rate - Afr Amer 9 mL/min (>60); Estimated Creatinine Clearance 8.91 ml/min; Globulin 4.3 g/dL (2.2-4.2); Glucose 97 mg/dL (74-106); LDH 142 U/L (84-246); Potassium 4.9 mmol/L (3.5-5.1); Protein, Total 6.6 g/dL (6.4-8.2); Sodium Level 135 mmol/L (136-145)
[2022-10-25 06:06] LABS: Anisocytosis 1+; Differential Comment SCANNED; Hypochromasia 1+; Ovalocyte RARE
[2022-10-25] MEDS: Dicyclomine 10 MG Capsule 20 MG PO ×3 (06:20→17:43)
--- NOTE | 2022-10-25 07:14 | PCM.PN.HOSP ---
Reason for Visit Reason for Visit: Diagnoses Hyperkalemia (10/20/22) End stage renal disease (10/20/22) Dyspnea, unspecified (10/20/22) Dependence on renal dialysis (10/20/22) Subjective Subjective Still having some of the pleuritic right-sided pain feels like she is drowning but is sat 98% and no increased work of breathing however does still have effusion on imaging Objective Data Objective Data Vital Signs: Vital Signs Temp Pulse Resp BP Pulse Ox O2 Del Method O2 Flow Rate 98.2 F 61 18 164/64 H 100 Nasal Cannula 2 10/25/22 04:49 10/25/22 04:51 10/25/22 04:49 10/25/22 04:51 10/25/22 04:49 10/25/22 04:49 10/25/22 04:49 Oxygen Flow Rate (L/min) 2 Oxygen Delivery Method Nasal Cannula Weight: 65.9 kg Body Mass Index (BMI) 21.4 Intake & Output: Intake and Output for Last 24 Hours 10/23/22 10/24/22 10/25/22 23:59 23:59 23:59 Intake Total 840 / 1140 700 / 700 Output Total 1999 0 / 0 Balance -1999 / 840 / 1140 700 / 700 Medical Nutrition Assessment Dietitian: Malnutrition Criteria Met Start: 10/21/22 13:47 Freq: Status: Active Protocol: Document 10/24/22 13:19 AG (Rec: 10/24/22 13:19 AG [id number]) Nutrition Malnutrition Evidence of Malnutrition Exists Yes Malnutrition (severe): Chronic Evidenced By Suboptimal Energy Intake ( Severe),Weight Loss (Severe) Clinical Problem Chronic Disease or Condition Related Malnutrition Etiology severe, chronic malnutrition related to ESRD and inability to meet estimated nutrient needs Signs/Symptoms as evidenced by significant weight loss of 7.1% in ~1 month per EMR wt hx and pt report of oral intakes <25% of estimated nutrient needs and poor appetite for the past 1-2 months. Status Active Problem Recommendation Dietitian Recommendations/Changes Continue with liberalized Cardiac diet w/ Nepro 120mL 4x /day with medpass to help increase oral intakes. Will continue Ensure Pudding with lunch and Magic Cup for additional nutrition if consumed. Daily wts. Lab / Micro Data Result Diagrams: 10/25/22 04:47 10/25/22 04:47 Labs: Laboratory Results - last 24 hr 10/23/22 04:15: Procalcitonin 0.14 H 10/24/22 05:55: Total Bilirubin 0.50, Direct Bilirubin 0.10, AST 35, ALT 14, Alkaline Phosphatase 74, Total Protein 6.9, Albumin 2.2 L, Globulin 4.7 H 10/25/22 04:47: WBC 9.4, RBC 3.20 L, Hgb 8.7 L, Hct 29.6 L, MCV 92.5, MCH 27.2, MCHC 29.4 L, RDW Std Deviation 67.7 H, RDW Coeff of Destiny 19.9 H, Plt Count 286, MPV 9.6, Immature Gran % (Auto) 0.600, Neut % (Auto) 75.0 H, Lymph % (Auto) 12.6 L, [place] % (Auto) 9.8, Eos % (Auto) 1.7, Baso % (Auto) 0.3, Absolute Neuts (auto) 7.0, Absolute Lymphs (auto) 1.18, Nucleated RBC % 0, Differential Comment SCANNED, Hypochromasia 1+, Anisocytosis 1+, Ovalocytes RARE 10/25/22 04:47: Sodium 135 L, Potassium 4.9, Chloride 102, Carbon Dioxide 30.0, Anion Gap 3 L, BUN 59 H, Creatinine 6.11 H, Estim Creat Clear Calc 8.91, Est GFR (MDRD) Af Amer 9 L, Est GFR (MDRD) Non-Af 7 L, BUN/Creatinine Ratio 9.7 L, Glucose 97, Calcium 9.6, Lactate Dehydrogenase 142, Total Protein 6.6, Globulin 4.3 H, Albumin/Globulin Ratio 0.5 L Micro: Microbiology 10/20/22 16:40 Nasal Secretion SARS-CoV-2 Antigen (Rapid) - Final Radiography Diagnostic Testing: Radiology Impression Chest CT 10/24/22 09:28 IMPRESSION: Bilateral pleural effusions right greater than left with bibasilar atelectasis more prominent at the right lung base. Findings suggestive of rounded atelectasis in the posterior medial segment of the right lower lobe. Electronically Signed: Lopez Barraza MD at 10:55 EDT , Chest X-Ray 10/24/22 09:34 IMPRESSION: Dual-lumen catheter stable in position appears properly placed. Decreased right basilar infiltrate and right pleural effusion. Electronically Signed: Shar Parnell MD, VALERIO at 17:29 EDT , Physical Exam Narrative General: Alert, oriented, no apparent distress HEENT: Atraumatic, normocephalic Eyes: Anicteric, normal conjunctiva, extraocular movements grossly intact Neck: Supple Respiratory: Diminished right more than left with slight crackles in the right middle, no increased work of breathing Cardiovascular: Regular rate and rhythm GI: Soft, nontender, does have some tenderness when pushing over right-sided lower ribs Extremities: Trace bilateral extremity edema Musculoskeletal: Moving all extremities Neuro: No overt focal neurological deficits Skin: No rashes appreciated Psych: Cooperative Assessment & Plan Assessment/Plan (1) Acute hyperkalemia: (2) ESRD on hemodialysis: (3) Dyspnea: PLAN: Plan #Shortness of breath secondary to pleural occlusion/fluid overload secondary to missed dialysis -Has been improving with resumption of dialysis -Dialysis again today -Continue nebs, likely DC tomorrow if stable -10/24: Complaining of some right-sided pleuritic pain and said she still feels short of breath. Vitally stable and saturating well but given nature of complaints and persistence despite dialysis will check CT of the chest. If this is suggestive of pneumonia will start antibiotics -10/25: CT with bilateral pleural effusions right greater than left with bibasilar atelectasis more prominent at right lung base and findings suggestive of rounded atelectasis in the posterior medial segment of the right lower lobe. Given persistent complaints and pain/shortness of breath placed order for diagnostic thoracentesis. Also added incentive spirometer. Hold Eliquis #Chronic respiratory failure secondary to COPD -Reportedly wears home O2, currently with good saturations -Continue nebs #Hyperkalemia?resolved #Proximal A-fib: On carvedilol and Eliquis. -10/25: Holding Eliquis for thoracentesis #Hypertension: On carvedilol #ESRD: On dialysis Wednesdays. #GERD: On PPI DVT prophylaxis: SCDs since Kelly held Charges/Coding Visit Charges Inpatient E&M: 72602 Subs Hosp L2
--- NOTE | 2022-10-25 11:33 | DIALYSIS ---
Hemodialysis complete with 2.5 liters fluid removed. Dialysis CVC dressing is clean and dry, both lumens patent. Pt tolerated treatment without difficulty.
[2022-10-25] MEDS: Polyethylene Glycol 3350 17 GM PACKET 34 GM PO (11:42)
[2022-10-25] MEDS: Heparin 10,000 UNITS/10 ML Vial IV (11:42)
[2022-10-25] MEDS: Calcium Acetate 667 MG Capsule 2001 MG PO ×2 (11:43→17:43)
[2022-10-25] MEDS: predniSONE 10 MG Tablet PO (11:44)
[2022-10-25] MEDS: Midodrine HCl 5 MG Tablet 10 MG PO (11:44)
[2022-10-25] MEDS: Carvedilol 25 MG Tablet PO ×2 (11:44→21:34)
[2022-10-25] MEDS: Famotidine 20 MG Tablet 10 MG PO (11:44)
[2022-10-25] MEDS: Folic Acid/Vitamin B Comp W-C 1 Capsule 1 CAP PO (11:45)
[2022-10-25] MEDS: DULoxetine Hcl 60 MG Capsule PO (11:45)
[2022-10-25] MEDS: amLODIPine 10 MG Tablet PO (11:45)
[2022-10-25] MEDS: Pantoprazole Sodium 40 MG Tablet PO ×2 (11:45→21:33)
[2022-10-25] MEDS: Gabapentin 300 MG Capsule PO (11:57)
--- NOTE | 2022-10-25 13:50 | PN.RENAL_ITS ---
Subjective Subjective no new events seen on HD Objective Data Objective Data Vital Signs: Vital Signs Temp Pulse Resp BP Pulse Ox O2 Del Method O2 Flow Rate 96.3 F L 64 18 153/73 H 98 Nasal Cannula 2 10/25/22 11:32 10/25/22 11:32 10/25/22 11:32 10/25/22 11:32 10/25/22 09:21 10/25/22 11:32 10/25/22 11:50 Oxygen Flow Rate (L/min) 2 Oxygen Delivery Method Nasal Cannula Weight: 65.9 kg Body Mass Index (BMI) 21.4 Intake & Output: Intake and Output for Last 24 Hours 10/23/22 10/24/22 10/25/22 23:59 23:59 23:59 Intake Total 840 / 1140 1060 / 1060 Output Total 1999 0 / 0 2500 / 2500 Balance -1999 840 / 1140 -1440 / -1440 Medical Nutrition Assessment Dietitian: Malnutrition Criteria Met Start: 10/21/22 13:47 Freq: Status: Active Protocol: Document 10/24/22 13:19 AG (Rec: 10/24/22 13:19 [id number]) Nutrition Malnutrition Evidence of Malnutrition Exists Yes Malnutrition (severe): Chronic Evidenced By Suboptimal Energy Intake ( Severe),Weight Loss (Severe) Clinical Problem Chronic Disease or Condition Related Malnutrition Etiology severe, chronic malnutrition related to ESRD and inability to meet estimated nutrient needs Signs/Symptoms as evidenced by significant weight loss of 7.1% in ~1 month per EMR wt hx and pt report of oral intakes <25% of estimated nutrient needs and poor appetite for the past 1-2 months. Status Active Problem Recommendation Dietitian Recommendations/Changes Continue with liberalized Cardiac diet w/ Nepro 120mL 4x /day with medpass to help increase oral intakes. Will continue Ensure Pudding with lunch and Magic Cup for additional nutrition if consumed. Daily wts. Lab / Micro Data Result Diagrams: 10/25/22 04:47 10/25/22 04:47 Labs: Laboratory Results - last 24 hr 10/25/22 04:47: WBC 9.4, RBC 3.20 L, Hgb 8.7 L, Hct 29.6 L, MCV 92.5, MCH 27.2, MCHC 29.4 L, RDW Std Deviation 67.7 H, RDW Coeff of Destiny 19.9 H, Plt Count 286, MPV 9.6, Immature Gran % (Auto) 0.600, Neut % (Auto) 75.0 H, Lymph % (Auto) 12.6 L, [place] % (Auto) 9.8, Eos % (Auto) 1.7, Baso % (Auto) 0.3, Absolute Neuts (auto) 7.0, Absolute Lymphs (auto) 1.18, Nucleated RBC % 0, Differential Comment SCANNED, Hypochromasia 1+, Anisocytosis 1+, Ovalocytes RARE 10/25/22 04:47: Sodium 135 L, Potassium 4.9, Chloride 102, Carbon Dioxide 30.0, Anion Gap 3 L, BUN 59 H, Creatinine 6.11 H, Estim Creat Clear Calc 8.91, Est GFR (MDRD) Af Amer 9 L, Est GFR (MDRD) Non-Af 7 L, BUN/Creatinine Ratio 9.7 L, Glucose 97, Calcium 9.6, Lactate Dehydrogenase 142, Total Protein 6.6, Globulin 4.3 H, Albumin/Globulin Ratio 0.5 L Micro: Microbiology 10/20/22 16:40 Nasal Secretion SARS-CoV-2 Antigen (Rapid) - Final Radiography Diagnostic Testing: Radiology Impression Chest X-Ray 10/24/22 09:34 IMPRESSION: Dual-lumen catheter stable in position appears properly placed. Decreased right basilar infiltrate and right pleural effusion. Electronically Signed: Shar Parnell MD, VALERIO at 17:29 EDT Reading Location ID and State: [facility] / [place] Tel , Service support , Physical Exam Narrative Alert awake, oriented x 3 no JVD s1s2 no murmurs lungs clear abdomen soft, nontender no edema Tunneled HD catheter dressing clean, dry and intact Assessment & Plan Assessment/Plan (1) ESRD on hemodialysis: PLAN: - On HD MWF schedule. seen on HD today - Dyspnea; improved somewhat - Blood pressures acceptable - Hemoglobin 9.4. Patient receives ANGELI and iron at dialysis. We will monitor hemoglobin trends Pleural effusion. for thoracocentesis tomorrow dw hospitalist
[2022-10-25] MEDS: Nepro Liquid 120 ML LIQUID PO ×2 (15:34→21:35)
[2022-10-25] MEDS: Ipratropium/Albuterol Sulfate 3 ML AMPUL.NEB INHALATION (19:00)
[2022-10-25] MEDS: Montelukast 10 MG Tablet PO (21:34)
[2022-10-25] MEDS: Mirtazapine 30 MG Tablet 45 MG PO (21:34)
[2022-10-26] VITALS (14 sets, daily range): BP systolic 108–165; BP diastolic 53–75; PULSE 60–69; RESP 15–18; TEMP 36.6–37.1; O2SAT 96–100
[2022-10-26] MEDS: Dicyclomine 10 MG Capsule 20 MG PO ×3 (05:51→17:12)
[2022-10-26] MEDS: hydrALAZINE 50 MG Tablet 100 MG PO ×3 (05:52→20:47)
[2022-10-26 06:10] LABS: Absolute Lymphocyte Count 1.21 X10^3/uL (0.83-4.51); Basophil# 0.04 X10^3/uL; Basophil% 0.4 % (0-1); Eosinophil# 0.11 X10^3/uL; Eosinophils% 1.2 % (0-5); Hematocrit 32.1 % (37-47); Hemoglobin 9.2 g/dL (12.0-15.0); Lymphocyte # 1.21 X10^3/ul (0.83-4.51); Mean Corp Hgb Conc 28.7 g/dL (32-36); Mean Corpuscular Hgb 27.4 pg (27.0-32.0); Mean Corpuscular Volume 95.5 fL (81-99); Monocyte% 9.7 % (0-10); NRBC Flagged by Analyzer 0 % (0-5); Neutrophil # 6.97 X10^3/uL (2.7-7.7); Neutrophil % 75.1 % (47-70); POSITIVE MORPHOLOGY YES; Platelet Count 282 K/mm3 (150-450); RBC Distribution Width CV 20.4 % (11.6-14.6); RBC Distribution Width SD 71.3 fl (35.1-43.9); Red Blood Count 3.36 M/mm3 (4.2-5.4); White Blood Count 9.3 K/mm3 (4.4-11.0)
[2022-10-26 06:31] LABS: Differential Indicated SCAN CRITERIA MET
[2022-10-26 06:38] LABS: Differential Comment SCANNED
[2022-10-26 06:39] LABS: Anisocytosis 2+; Hypochromasia 1+; Macrocytosis 1+; Microcytosis 1+
[2022-10-26 06:44] LABS: Anion Gap 3 (5-15); BUN 44 mg/dL (7-18); BUN/Creat Ratio 9.3 RATIO (10-20); Calcium,Total 9.3 mg/dL (8.5-10.1); Chloride 104 mmol/L (98-107); Creatinine, Serum 4.74 mg/dL (0.55-1.02); EST Glomerular Filtration Rate 10 mL/min (>60); Est Glom Filt Rate - Afr Amer 12 mL/min (>60); Estimated Creatinine Clearance 10.74 ml/min; Glucose 69 mg/dL (74-106); Potassium 4.7 mmol/L (3.5-5.1); Sodium Level 134 mmol/L (136-145)
[2022-10-26] MEDS: Ipratropium/Albuterol Sulfate 3 ML AMPUL.NEB INHALATION ×2 (06:50→19:55)
--- NOTE | 2022-10-26 07:00 | US_ITS ---
PROCEDURE: ULTRASOUND GUIDED THORACENTESIS. DATE: October 26, 2022. INDICATION: Female, 72 years old. Right pleural effusion. PHYSICIAN: Lopez Barraza M.D. PROCEDURE: The risks, benefits, and alternatives to the procedure were explained to the patient. The specific risks of bleeding, infection, and pneumothorax requiring chest tube insertion were discussed and accepted. Written informed consent was obtained. Ultrasonographic evaluation of the right lower pleural space was carried out. An adequate pocket was identified. The patient was placed in the sitting, upright position. The overlying skin was prepped and draped in sterile fashion. 1% lidocaine was administered subcutaneously for local anesthesia. Under ultrasound guidance, a 5 Estonian thoracentesis needle/catheter system was advanced into the right posterior lower pleural fluid collection. Approximately 220 mL of blood tinged fluid was drained. The catheter was removed, and a sterile dressing was applied. A specimen was collected and sent to the laboratory for analysis, as requested by the referring clinician. The patient tolerated the procedure well. A chest x-ray was ordered. US/Thoracentesis W US IMPRESSION: Ultrasound-guided right thoracentesis. Electronically Signed: Lopez Barraza MD at 14:12 EDT ,
[2022-10-26] MEDS: Calcium Acetate 667 MG Capsule 2001 MG PO ×3 (08:30→17:12)
[2022-10-26] MEDS: predniSONE 10 MG Tablet PO ×2 (08:30→08:31)
[2022-10-26] MEDS: DULoxetine Hcl 60 MG Capsule PO (08:31)
[2022-10-26] MEDS: Carvedilol 25 MG Tablet PO ×2 (08:31→20:47)
[2022-10-26] MEDS: Pantoprazole Sodium 40 MG Tablet PO ×2 (08:33→20:47)
[2022-10-26] MEDS: oxyCODONE 5 MG Tablet 10 MG PO ×2 (08:44→20:47)
[2022-10-26] MEDS: Nepro Liquid 120 ML LIQUID PO ×2 (10:20→14:40)
[2022-10-26] MEDS: Polyethylene Glycol 3350 17 GM PACKET 34 GM PO (10:22)
[2022-10-26] MEDS: Famotidine 20 MG Tablet 10 MG PO (10:25)
[2022-10-26] MEDS: amLODIPine 10 MG Tablet PO (10:25)
--- NOTE | 2022-10-26 13:30 | FLU_PTH ---
PATIENT: ALEC GUTIERREZ LOC: [facility] U#:[id number] AGE/SX: 72/F ROOM: [facility] RE10/20/[address]: Dr. Nataliia Quezada MD : 1950 BED: 1 DIS: 10/27/2022 SPEC #: [id number] RECD: 10/27/22 08:42 STATUS: OSIEL REQ #: [id number] JABIER: 10/26/22 13:[address]: Nataliia Quezada DEPT: CYTOLOGY RECD BY: Padmini Campuzano ENTERED: 10/27/22 08:43 SP TYPE: Fluid OTHR DR: MD Dr. Malu Navarro MD Dr. Tony Le, DO Yen Flaca Valdez, WASTE REDUCTION COORDINATOR-C Tissues: Pleural fluid, NOS Procedures: Special Stain Group II Surgery Specimen Level IV Cytospin Fluid HEADER OPERATION: Thoracentesis PRE-OP DIAGNOSIS: Pleural effusion TISSUE SUBMITTED: Thoracentesis fluid for cytology DIAGNOSIS CYTOLOGY Thoracentesis fluid for cytology (cytospin and cell block): Negative for malignant cells. See comment. MARY:ronnie 10/30/2022 COMMENT Clinical correlation and appropriate follow up are necessary. CYTOLOGY STUDY Slides are reviewed. CYTOLOGY GROSS Received is 90 ml of dark red jacquie fluid labeled with the patient's name and and designated per the requisition as thoracentesis. Submitted for cytology preparation including cell block. / ronnie 10/27/2022 TC:5 CPT: 48685, 92243
[2022-10-26] MEDS: Lidocaine 2% (20 ml mdv) 20 ML Vial INFILT (13:34)
--- NOTE | 2022-10-26 13:35 | RAD_ITS ---
STUDY: X-RAY CHEST REASON FOR EXAM: Female, 72 years old. Post thora TECHNIQUE: AP inspiration and expiration views following right thoracentesis. COMPARISON: Comparison is made with prior study dated October 24, 2022. FINDINGS: The patient is status post right thoracentesis. Residual pleural-parenchymal changes persist bilaterally. No evidence of pneumothorax. RAD/Chest Insp/Exp 2 View IMPRESSION: No evidence of pneumothorax on the post right lung biopsy radiographs. Electronically Signed: Lopez Barraza MD at 14:27 EDT ,
[2022-10-26 14:02] LABS: Cytology, Body Fluid / CSF SEE PATHOLOGY REPORT
[2022-10-26 14:26] LABS: Appearance/Body Fluid CLOUDY; Auto B Fluid Analyzer BKGD Ct COUNTS W/IN LIMITS (W/IN LIMITS); Body Fluid Mononuclear WBC # 0.639 10^3/uL; Body Fluid Mononuclear WBC % 91.5 %; Body Fluid Polynuclear WBC # 0.059 10^3/uL; Body Fluid Polynuclear WBC % 8.5 %; Body Fluid Total Cells Counted 0.701 10^3/ul; Color/Body Fluid RED; Red Cell Count/Body Fluid 0.055 10^6/ul; Source- Body Fluid THORACENTESIS; White Blood Count/Body Fluid 0.698 10^3/uL
[2022-10-26 14:30] LABS: Body Fluid QC Type(s) BF1Q
--- NOTE | 2022-10-26 14:38 | PCM.PN.HOSP ---
Reason for Visit Reason for Visit: Diagnoses Hyperkalemia (10/20/22) End stage renal disease (10/20/22) Dyspnea, unspecified (10/20/22) Dependence on renal dialysis (10/20/22) Subjective Subjective Pain is feeling better after her thoracentesis Objective Data Objective Data Vital Signs: Vital Signs Temp Pulse Resp BP Pulse Ox O2 Del Method O2 Flow Rate 98.1 F 62 16 130/62 H 100 Nasal Cannula 2 10/26/22 14:28 10/26/22 14:28 10/26/22 14:28 10/26/22 14:28 10/26/22 14:28 10/26/22 14:28 10/26/22 13:59 Oxygen Flow Rate (L/min) [3] 2 Oxygen Flow Rate (L/min) [2] 2 Oxygen Flow Rate (L/min) [1 ( 2 Initial Baseline)] Oxygen Flow Rate (L/min) 2 Oxygen Delivery Method [3] Nasal Cannula Oxygen Delivery Method [2] Room Air Oxygen Delivery Method [1 ( Nasal Cannula Initial Baseline)] Oxygen Delivery Method Nasal Cannula Weight: 61.6 kg Body Mass Index (BMI) 20.0 Intake & Output: Intake and Output for Last 24 Hours 10/24/22 10/25/22 10/26/22 23:59 23:59 23:59 Intake Total 840 / 1140 1480 / 1480 320 / 320 Output Total 0 / 0 2500 / 2500 120 / 120 Balance 840 / 1140 -1020 / -1020 200 / 200 Medical Nutrition Assessment Dietitian: Malnutrition Criteria Met Start: 10/21/22 13:47 Freq: Status: Active Protocol: Document 10/24/22 13:19 AG (Rec: 10/24/22 13:19 [id number]) Nutrition Malnutrition Evidence of Malnutrition Exists Yes Malnutrition (severe): Chronic Evidenced By Suboptimal Energy Intake ( Severe),Weight Loss (Severe) Clinical Problem Chronic Disease or Condition Related Malnutrition Etiology severe, chronic malnutrition related to ESRD and inability to meet estimated nutrient needs Signs/Symptoms as evidenced by significant weight loss of 7.1% in ~1 month per EMR wt hx and pt report of oral intakes <25% of estimated nutrient needs and poor appetite for the past 1-2 months. Status Active Problem Recommendation Dietitian Recommendations/Changes Continue with liberalized Cardiac diet w/ Nepro 120mL 4x /day with medpass to help increase oral intakes. Will continue Ensure Pudding with lunch and Magic Cup for additional nutrition if consumed. Daily wts. Lab / Micro Data Result Diagrams: 10/26/22 05:57 10/26/22 05:57 Labs: Laboratory Results - last 24 hr 10/26/22 05:57: WBC 9.3, RBC 3.36 L, Hgb 9.2 L, Hct 32.1 L, MCV 95.5, MCH 27.4, MCHC 28.7 L, RDW Std Deviation 71.3 H, RDW Coeff of Destiny 20.4 H, Plt Count 282, MPV 9.0, Immature Gran % (Auto) 0.600, Neut % (Auto) 75.1 H, Lymph % (Auto) 13.0 L, [place] % (Auto) 9.7, Eos % (Auto) 1.2, Baso % (Auto) 0.4, Absolute Neuts (auto) 7.0, Absolute Lymphs (auto) 1.21, Nucleated RBC % 0, Differential Comment SCANNED, Hypochromasia 1+, Anisocytosis 2+, Microcytosis 1+, Macrocytosis 1+ 10/26/22 05:57: Sodium 134 L, Potassium 4.7, Chloride 104, Carbon Dioxide 27.0, Anion Gap 3 L, BUN 44 H, Creatinine 4.74 H, Estim Creat Clear Calc 10.74, Est GFR (MDRD) Af Amer 12 L, Est GFR (MDRD) Non-Af 10 L, BUN/Creatinine Ratio 9.3 L, Glucose 69 L, Calcium 9.3 10/26/22 13:30: Fluid WBC 0.698, Fluid RBC 0.055, Fluid Tot Cell Count 0.701 H, Fld Polynuclear WBCs # 0.059, Fld Polynuclear WBCs % 8.5, Fluid Mononuclear WBCs 0.639, Fld Mononuclear WBCs % 91.5 Micro: Microbiology 10/20/22 16:40 Nasal Secretion SARS-CoV-2 Antigen (Rapid) - Final Radiography Diagnostic Testing: Radiology Impression Thoracentesis Ultrasound 10/26/22 07:00 IMPRESSION: Ultrasound-guided right thoracentesis. Electronically Signed: Lopez Barraza MD at 14:12 EDT , Chest X-Ray 10/26/22 13:35 IMPRESSION: No evidence of pneumothorax on the post right lung biopsy radiographs. Electronically Signed: Lopez Barraza MD at 14:27 EDT , Physical Exam Narrative General: Alert, oriented, no apparent distress HEENT: Atraumatic, normocephalic Eyes: Anicteric, normal conjunctiva, extraocular movements grossly intact Neck: Supple Respiratory: Diminished right more than left with slight crackles in the right middle prior to thoracentesis Cardiovascular: Regular rate and rhythm GI: Soft, nontender Extremities: Trace bilateral extremity edema Musculoskeletal: Moving all extremities Neuro: No overt focal neurological deficits Skin: No rashes appreciated Psych: Cooperative Assessment & Plan Assessment/Plan (1) Acute hyperkalemia: (2) ESRD on hemodialysis: (3) Dyspnea: PLAN: Plan #Shortness of breath secondary to pleural occlusion/fluid overload secondary to missed dialysis -Has been improving with resumption of dialysis -Dialysis again today -Continue nebs, likely DC tomorrow if stable -10/24: Complaining of some right-sided pleuritic pain and said she still feels short of breath. Vitally stable and saturating well but given nature of complaints and persistence despite dialysis will check CT of the chest. If this is suggestive of pneumonia will start antibiotics -10/25: CT with bilateral pleural effusions right greater than left with bibasilar atelectasis more prominent at right lung base and findings suggestive of rounded atelectasis in the posterior medial segment of the right lower lobe. Given persistent complaints and pain/shortness of breath placed order for diagnostic thoracentesis. Also added incentive spirometer. Hold Eliquis -10/26: Had thoracentesis today, will await fluid studies. Likely DC tomorrow pending results #Chronic respiratory failure secondary to COPD -Reportedly wears home O2, currently with good saturations -Continue nebs #Hyperkalemia?resolved #Proximal A-fib: On carvedilol and Eliquis. -10/25: Holding Eliquis for thoracentesis #Hypertension: On carvedilol #ESRD: On dialysis Wednesdays. #GERD: On PPI DVT prophylaxis: SCDs since Eliquis held Charges/Coding Visit Charges Inpatient E&M: 14319 Subs Hosp L2
[2022-10-26 14:52] LABS: Lymphocytes 88 %; Monocytes 4 %; Neutrophil (Segs) 8 %
--- NOTE | 2022-10-26 14:53 | CASEMGMT ---
Patient is not being discharged today. MARIA GUADALUPE called [facility] and notified them as well as [facility]. MARIA GUADALUPE called [facility] and spoke with Bel letting her know patient will likely be discharged tomorrow. MARIA GUADALUPE faxed updates to [facility]. MARIA GUADALUPE asked patient if she feels like she is okay to return to [facility] or if she needs [facility]. Patient said she feels fine to go back to [facility]. Evy GONZALEZ
[2022-10-26 15:00] LABS: Glucose, Body Fluid 92 mg/dL (40-70); LDH,Body Fluid 184 Units/l (Not Establ.)
--- NOTE | 2022-10-26 18:50 | NURSING ---
Reviewed charting with Mary Beth Preciado RN
[2022-10-26] MEDS: Montelukast 10 MG Tablet PO (20:47)
[2022-10-26] MEDS: Mirtazapine 30 MG Tablet 45 MG PO (20:47)
[2022-10-26] MEDS: APIXABAN 2.5 MG TABLET (WCH) PO (20:47)
[2022-10-27] VITALS (7 sets, daily range): BP systolic 127–170; BP diastolic 57–94; PULSE 60–73; RESP 14–18; TEMP 36.5–36.8; O2SAT 94–100; BMI 20.3
[2022-10-27 05:32] LABS: Absolute Lymphocyte Count 1.21 X10^3/uL (0.83-4.51); Absolute Neutrophil Count 7.5 X10^3/uL (2.0-7.7); Basophil# 0.03 X10^3/uL; Basophil% 0.3 % (0-1); Eosinophil# 0.07 X10^3/uL; Eosinophils% 0.7 % (0-5); Hematocrit 29.7 % (37-47); Hemoglobin 8.7 g/dL (12.0-15.0); Lymphocyte # 1.21 X10^3/ul (0.83-4.51); Lymphocyte % 12.5 % (19-41); Mean Corp Hgb Conc 29.3 g/dL (32-36); Mean Corpuscular Hgb 27.3 pg (27.0-32.0); Mean Corpuscular Volume 93.1 fL (81-99); Mean Platelet Vol. 9.2 fl (6.2-12.0); Monocyte# 0.78 X10^3/uL; Monocyte% 8.1 % (0-10); NRBC Flagged by Analyzer 0 % (0-5); Neutrophil % 77.8 % (47-70); POSITIVE MORPHOLOGY YES; Platelet Count 295 K/mm3 (150-450); RBC Distribution Width CV 19.9 % (11.6-14.6); RBC Distribution Width SD 68.6 fl (35.1-43.9); Red Blood Count 3.19 M/mm3 (4.2-5.4); White Blood Count 9.7 K/mm3 (4.4-11.0)
[2022-10-27 05:53] LABS: Differential Indicated SCAN CRITERIA MET
[2022-10-27 06:07] LABS: Anisocytosis 1+; Differential Comment SCANNED; Hypochromasia 1+
[2022-10-27 06:09] LABS: ALB/GLOB Ratio 0.5 RATIO (0.9-2.4); AST(SGOT) 20 U/L (15-37); Alanine Aminotransfer ALT/SGPT 20 U/L (13-56); Albumin, Serum 2.4 g/dL (3.2-5.0); Alkaline Phosphatase 78 U/L (45-117); Anion Gap 4 (5-15); BUN 67 mg/dL (7-18); BUN/Creat Ratio 10.7 RATIO (10-20); Calcium,Total 9.5 mg/dL (8.5-10.1); Chloride 102 mmol/L (98-107); Creatinine, Serum 6.29 mg/dL (0.55-1.02); EST Glomerular Filtration Rate 7 mL/min (>60); Est Glom Filt Rate - Afr Amer 8 mL/min (>60); Estimated Creatinine Clearance 8.09 ml/min; Globulin 4.4 g/dL (2.2-4.2); Glucose 114 mg/dL (74-106); LDH 139 U/L (84-246); Potassium 5.2 mmol/L (3.5-5.1); Protein, Total 6.8 g/dL (6.4-8.2); Sodium Level 134 mmol/L (136-145)
[2022-10-27] MEDS: hydrALAZINE 50 MG Tablet 100 MG PO ×2 (06:18→12:58)
[2022-10-27] MEDS: Dicyclomine 10 MG Capsule 20 MG PO ×2 (06:18→12:58)
[2022-10-27] MEDS: Psyllium 1 PACKET PO (06:18)
[2022-10-27] MEDS: oxyCODONE 5 MG Tablet 10 MG PO ×2 (06:23→13:06)
[2022-10-27] MEDS: Ipratropium/Albuterol Sulfate 3 ML AMPUL.NEB INHALATION (07:24)
[2022-10-27] MEDS: Calcium Acetate 667 MG Capsule 2001 MG PO ×2 (07:43→12:55)
[2022-10-27] MEDS: Polyethylene Glycol 3350 17 GM PACKET 34 GM PO (07:44)
--- NOTE | 2022-10-27 09:20 | PCM.PN.REN ---
Subjective Subjective Seen at start of dialysis treatment. No overnight events. No complaints today. Reports breathing is better. Objective Data Objective Data Vital Signs: Vital Signs Temp Pulse Resp BP Pulse Ox O2 Del Method O2 Flow Rate 98.2 F 62 14 146/94 H 94 Nasal Cannula 2 10/27/22 06:16 10/27/22 07:25 10/27/22 07:25 10/27/22 06:18 10/27/22 07:25 10/27/22 07:59 10/27/22 07:59 Oxygen Flow Rate (L/min) [3] 2 Oxygen Flow Rate (L/min) [2] 2 Oxygen Flow Rate (L/min) [1 ( 2 Initial Baseline)] Oxygen Flow Rate (L/min) 2 Oxygen Delivery Method [3] Nasal Cannula Oxygen Delivery Method [2] Room Air Oxygen Delivery Method [1 ( Nasal Cannula Initial Baseline)] Oxygen Delivery Method Nasal Cannula Weight: 62.5 kg Body Mass Index (BMI) 20.3 Intake & Output: Intake and Output for Last 24 Hours 10/25/22 10/26/22 10/27/22 23:59 23:59 23:59 Intake Total 1480 / 1480 580 / 580 Output Total 2500 / 2500 340 / 340 0 / 0 Balance -1020 / -1020 240 / 240 0 / 0 Medical Nutrition Assessment Dietitian: Malnutrition Criteria Met Start: 10/21/22 13:47 Freq: Status: Active Protocol: Document 10/24/22 13:19 (Rec: 10/24/22 13:19 [id number]) Nutrition Malnutrition Evidence of Malnutrition Exists Yes Malnutrition (severe): Chronic Evidenced By Suboptimal Energy Intake ( Severe),Weight Loss (Severe) Clinical Problem Chronic Disease or Condition Related Malnutrition Etiology severe, chronic malnutrition related to ESRD and inability to meet estimated nutrient needs Signs/Symptoms as evidenced by significant weight loss of 7.1% in ~1 month per EMR wt hx and pt report of oral intakes <25% of estimated nutrient needs and poor appetite for the past 1-2 months. Status Active Problem Recommendation Dietitian Recommendations/Changes Continue with liberalized Cardiac diet w/ Nepro 120mL 4x /day with medpass to help increase oral intakes. Will continue Ensure Pudding with lunch and Magic Cup for additional nutrition if consumed. Daily wts. Lab / Micro Data Result Diagrams: 10/27/22 04:57 04/28/23 04:57 Labs: Laboratory Results - last 24 hr 10/26/22 13:30: Fluid Glucose 92 H, Fluid Total Protein 4.0, Fluid LDH 184 10/26/22 13:30: Fluid Source THORACENTESIS, Fluid Color RED, Fluid Appearance CLOUDY, Fluid WBC 0.698, Fluid RBC 0.055, Fluid Tot Cell Count 0.701 H, Fld Polynuclear WBCs # 0.059, Fld Polynuclear WBCs % 8.5, Fluid Mononuclear WBCs 0.639, Fld Mononuclear WBCs % 91.5, Fluid Neutrophils 8, Fluid Lymphocytes 88, Fluid Monocytes 4, Fl Pathologist Comment May follow, Fluid Comment 2 SEE COMMENT 10/27/22 04:57: WBC 9.7, RBC 3.19 L, Hgb 8.7 L, Hct 29.7 L, MCV 93.1, MCH 27.3, MCHC 29.3 L, RDW Std Deviation 68.6 H, RDW Coeff of Destiny 19.9 H, Plt Count 295, MPV 9.2, Immature Gran % (Auto) 0.600, Neut % (Auto) 77.8 H, Lymph % (Auto) 12.5 L, [place] % (Auto) 8.1, Eos % (Auto) 0.7, Baso % (Auto) 0.3, Absolute Neuts (auto) 7.5, Absolute Lymphs (auto) 1.21, Nucleated RBC % 0, Differential Comment SCANNED, Hypochromasia 1+, Anisocytosis 1+ 10/27/22 04:57: Sodium 134 L, Potassium 5.2 H, Chloride 102, Carbon Dioxide 28.0, Anion Gap 4 L, BUN 67 H, Creatinine 6.29 H, Estim Creat Clear Calc 8.09, Est GFR (MDRD) Af Amer 8 L, Est GFR (MDRD) Non-Af 7 L, BUN/Creatinine Ratio 10.7, Glucose 114 H, Calcium 9.5, Total Bilirubin 0.40, AST 20, ALT 20, Alkaline Phosphatase 78, Lactate Dehydrogenase 139, Total Protein 6.8, Albumin 2.4 L, Globulin 4.4 H, Albumin/Globulin Ratio 0.5 L Micro: Microbiology 10/26/22 13:30 Fluid - Thoracentesis Fluid Gram Stain - Final 10/20/22 16:40 Nasal Secretion SARS-CoV-2 Antigen (Rapid) - Final Radiography Diagnostic Testing: Radiology Impression Thoracentesis Ultrasound 10/26/22 07:00 IMPRESSION: Ultrasound-guided right thoracentesis. Electronically Signed: Lopez Barraza MD at 14:12 EDT , Chest X-Ray 10/26/22 13:35 IMPRESSION: No evidence of pneumothorax on the post right lung biopsy radiographs. Electronically Signed: Lopez Barraza MD at 14:27 EDT , Physical Exam Narrative Alert awake, oriented x 3 no JVD s1s2 no murmurs lungs clear abdomen soft, nontender no edema Tunneled HD catheter dressing clean, dry and intact Assessment & Plan Assessment/Plan (1) ESRD on hemodialysis: PLAN: - On HD MWF schedule. For dialysis today on 2K bath with around 2 L fluid removal as patient/blood pressure tolerates. - Dyspnea; improved. Right pleural effusion, patient had thoracentesis yesterday with 220 mL fluid removed. - Blood pressures acceptable - Hemoglobin 8.7. Patient receives ANGELI and iron at dialysis. We will monitor hemoglobin trends -Discharge planning in progress, likely for discharge today.
--- NOTE | 2022-10-27 09:20 | CASEMGMT ---
Patient will be discharged back to [facility] today. MARIA GUADALUPE called [employer] as required by patient's insurance. MARIA GUADALUPE spoke with [employer]. MARIA GUADALUPE told [employer] patient will need a wheelchair and 2L O2 provided. MARIA GUADALUPE also asked that [facility] be called as they are the preferred provider. [employer]in[employer] made note of this in the request. MARIA GUADALUPE told [employer] the earliest the patient would be ready is 230p. Trip number is [id number]. Evy GONZALEZ
--- NOTE | 2022-10-27 09:51 | CASEMGMT ---
Addendum entered by Evy Paredes 10/27/22 10:51: MARIA GUADALUPE spoke with Nadya from [employer]. They will have one of their drivers stop at [facility] and belt picker a portable for patient then come get patient. MARIA GUADALUPE called [facility] and spoke with Pat to let her know patient will be returning today. Pat said Rocio called her and notified her they will have someone belt picker a portable for patient. Pat said she can give them a portable, but she does not have the regulator as it went with patient. RN MITA and MARIA GUADALUPE looked in patient's room and she has her portable O2 here at [facility] with the regulator. Patient should have enough O2 to get her back to [facility]. MARIA GUADALUPE called Pat at [facility] and let her know this information. Pat said the [employer] otr hazmat company driver just dropped off a patient and forgot to belt picker the tank. Plan: d/c back to [facility]. Rocio will transport patient via wheelchair which was arranged via [employer]. Evy GONZALEZ Original Note: MARIA GUADALUPE received a call from Nadya with [facility]. They received a call from [employer] [employer] for transport. They can transport patient. They will bring a wheelchair. MARIA GUADALUPE asked about O2, but they do not provide O2. Patient is one of their regulars so Nadya was going to check and see if they can go to [facility] belt picker one of patient's portables and then come pick her up. Nadya will let MARIA GUADALUPE know. Evy GONZALEZ
[2022-10-27 11:57] LABS: Pathologist Comment/Body Fluid Reviewed
[2022-10-27] MEDS: Heparin 10,000 UNITS/10 ML Vial IV (12:20)
--- NOTE | 2022-10-27 12:44 | DS.PCM_ITS ---
Providers Date of Admission: 10/20/22 Date of Discharge: 10/27/22 Primary Care Physician: Yen Valdez, JOE Consultations 10/20/22 19:53 Consult: Nephrology Routine Consulting Provider: Soraida Sears Reason for Consult: ESRD, missed dialysis EMERGENT Consult: No MD Notified: Yes Date Notified: 10/20/22 Time Notified: 18:38 Method of Notification: Text Reason For Visit: FLUID OVERLOAD FROM MISSED DIALYSIS Diagnosis Discharge Diagnosis (1) ESRD on hemodialysis: Status: Acute Code(s): N18.6 - End stage renal disease; Z99.2 - Dependence on renal dialysis Plan #Shortness of breath secondary to pleural occlusion/fluid overload secondary to missed dialysis #Chronic respiratory failure secondary to COPD #Hyperkalemia?resolved #Proximal A-fib #Hypertension #ESRD: On dialysis Wednesdays. #GERD Medications at Discharge Home Medications hydralazine 100 mg tablet 100 mg PO TID BLOOD PRESSURE 03/31/20 amlodipine 10 mg tablet 10 mg PO DAILY blood pressure 11/30/20 calcium acetate(phosphat bind) 667 mg capsule 2,001 mg PO TIDCM health maintenance 11/30/20 apixaban 2.5 mg tablet (Eliquis) 2.5 mg PO BID anticoagulant 01/08/21 mirtazapine 45 mg tablet 45 mg PO QHS INSOMNIA 01/08/21 dicyclomine 20 mg tablet 20 mg PO TID ibs 02/26/21 gabapentin 300 mg capsule 300 mg PO SUTUTHSA NERVE PAIN 10/05/21 gabapentin 600 mg tablet 600 mg PO MOWEFR NERVE PAIN 10/05/21 vit B,C-folic ac 800 mcg-zinc 12.5 mg-selen-D3 2,000 unit-vit E tablet (RenaPlex-D) 1 tab PO MOWEFR DIALYSIS 10/05/21 montelukast 10 mg tablet (Singulair) 10 mg PO QHS ALLERGIES 10/25/21 midodrine 10 mg tablet 10 mg PO MOWEFR bp 02/23/22 duloxetine 60 mg capsule,delayed release 60 mg PO DAILY DEPRESSION 05/19/22 fluticasone 500 mcg-salmeterol 50 mcg/dose blistr powdr for inhalation (Advair Diskus) 1 inh inhalation BID sob 05/19/22 polyethylene glycol 3350 17 gram/dose oral powder (Miralax) 17 g PO DAILY CONSTIPATION 05/19/22 tiotropium bromide 2.5 mcg/actuation mist for inhalation (Spiriva Respimat) 2 puff inhalation DAILY sob 05/19/22 albuterol sulfate 2.5 mg/3 mL (0.083 %) solution for nebulization 2.5 mg (3 mL) inhalation Q2H PRN PRN SOB/Wheezing 30 days #90 mL 05/20/22 acetaminophen 325 mg tablet (Tylenol) 650 mg PO Q6H PRN PRN Pain 1-10 Or Fever >100.7 #0 tabs 06/13/22 nut.tx.imp.renal fxn,lac-reduc 0.08 gram-1.8 kcal/mL oral liquid (Nepro Carb Steady) 120 ml PO 4X/DAY #0 mL 06/28/22 prednisolone 5 mg tablet 10 mg PO DAILY Check with primary doctor 09/25/22 nicotine 14 mg/24 hr daily transdermal patch 1 patch transdermal DAILY Check with primary doctor 09/28/22 albuterol sulfate 90 mcg/actuation aerosol inhaler 2 puff inhalation Q6H sob 10/20/22 carvedilol 25 mg tablet 25 mg PO BID bp 10/20/22 oxycodone 10 mg tablet 10 mg PO BID PRN break through pain 10/20/22 oxycodone 5 mg tablet 10 mg PO BID pain 10/20/22 pantoprazole 40 mg tablet,delayed release 40 mg PO BID gerd 10/20/22 Hospital Course Summary of Care Provided Minutes Spent on Discharge: 32 Hospital Course: Patient is a 72 past medical history of end-stage renal disease on dialysis, atrial fibrillation, GI bleed, COPD CHF presented with SOB after missing dialysis the day of admission due to the pain not picking her up. Chest x-ray showed cardiomegaly with interstitial e luiz and moderate right and trace left pleural effusion. She was admitted when nephrology consulted and she was dialyzed. Initially also had hyperkalemia which improved with dialysis. She continued to complain of feeling like she was drowning and CT was repeated which showed improved effusion but still present with some rounded atelectasis. Given persistent complaints of shortness of breath and development of pleuritic pain she had a diagnostic thoracentesis. This improved her symptoms significantly. Right thoracentesis 10/26 with 220 cc of blood-tinged fluid removed. Demonstrated a total cell count of 701 which was lymphocytic predominant. Glucose 92 which was likely similar to her serum glucose at the time. Pleural protein 4 with serum protein 6.7, pleural LDH 184 with serum LDH 140. Gram stain white blood cells 2+ but no organisms seen, cytology with no malignant cells seen, culture, amylase, pH pending. With no cough or fever and not neutrophilic predominant do not feel this is a parapneumonic necessitating antibiotics especially she improved without antibiotics. Discussed thoracentesis with pulmonology and is felt this is probably a transudate complicated by getting on dialysis given above. Patient doing significantly better like to go home. Pain has resolved. No further complaints on day of discharge. Discharge instructions as followed: -It is recommended that you take your incentive spirometer home with you and use this routinely -Consider repeat imaging and 2 to 4 weeks vs imagining only if symptoms return. -Continue dialysis and nephrology follow-up as previously scheduled -Continue your home medications -Your blood pressure medications may need further adjusted but this can be done on an outpatient basis with your prescribing physician -Please call your primary care provider's office upon discharge to schedule a hospital follow up within 1 week. -For any concerning signs or symptoms please call 911 or proceed to the nearest emergency department Physical Exam Narrative General: Alert, oriented, no apparent distress HEENT: Atraumatic, normocephalic Eyes: Anicteric, normal conjunctiva, extraocular movements grossly intact Neck: Supple Respiratory: Does have some improved aeration from pain is resolved. Cardiovascular: Regular rate and rhythm GI: Soft, nontender Extremities: No bilateral extremity edema Musculoskeletal: Moving all extremities Neuro: No overt focal neurological deficits Skin: No rashes appreciated Psych: Cooperative Medical Records Data Medical Nutrition Assessment Dietitian: Malnutrition Criteria Met Start: 10/21/22 13:47 Freq: Status: Active Protocol: Document 10/24/22 13:19 AG (Rec: 10/24/22 13:19 [id number]) Nutrition Malnutrition Evidence of Malnutrition Exists Yes Malnutrition (severe): Chronic Evidenced By Suboptimal Energy Intake ( Severe),Weight Loss (Severe) Clinical Problem Chronic Disease or Condition Related Malnutrition Etiology severe, chronic malnutrition related to ESRD and inability to meet estimated nutrient needs Signs/Symptoms as evidenced by significant weight loss of 7.1% in ~1 month per EMR wt hx and pt report of oral intakes <25% of estimated nutrient needs and poor appetite for the past 1-2 months. Status Active Problem Recommendation Dietitian Recommendations/Changes Continue with liberalized Cardiac diet w/ Nepro 120mL 4x /day with medpass to help increase oral intakes. Will continue Ensure Pudding with lunch and Magic Cup for additional nutrition if consumed. Daily wts. Weight / BMI Weight Weight: 62.5 kg Body Mass Index (BMI) 20.3 ABG / Lab / Microbiology Data Result Diagrams: 10/27/22 04:57 10/27/22 04:57 Laboratory: Laboratory Results - last 24 hr 10/26/22 13:30: Fluid Glucose 92 H, Fluid Total Protein 4.0, Fluid LDH 184 10/26/22 13:30: Fluid Source THORACENTESIS, Fluid Color RED, Fluid Appearance CLOUDY, Fluid WBC 0.698, Fluid RBC 0.055, Fluid Tot Cell Count 0.701 H, Fld Polynuclear WBCs # 0.059, Fld Polynuclear WBCs % 8.5, Fluid Mononuclear WBCs 0.639, Fld Mononuclear WBCs % 91.5, Fluid Neutrophils 8, Fluid Lymphocytes 88, Fluid Monocytes 4, Fl Pathologist Comment Reviewed, Fluid Comment 2 SEE COMMENT 10/27/22 04:57: WBC 9.7, RBC 3.19 L, Hgb 8.7 L, Hct 29.7 L, MCV 93.1, MCH 27.3, MCHC 29.3 L, RDW Std Deviation 68.6 H, RDW Coeff of Destiny 19.9 H, Plt Count 295, MPV 9.2, Immature Gran % (Auto) 0.600, Neut % (Auto) 77.8 H, Lymph % (Auto) 12.5 L, Beaver % (Auto) 8.1, Eos % (Auto) 0.7, Baso % (Auto) 0.3, Absolute Neuts (auto) 7.5, Absolute Lymphs (auto) 1.21, Nucleated RBC % 0, Differential Comment SCANNED, Hypochromasia 1+, Anisocytosis 1+ 10/27/22 04:57: Sodium 134 L, Potassium 5.2 H, Chloride 102, Carbon Dioxide 28.0, Anion Gap 4 L, BUN 67 H, Creatinine 6.29 H, Estim Creat Clear Calc 8.09, Est GFR (MDRD) Af Amer 8 L, Est GFR (MDRD) Non-Af 7 L, BUN/Creatinine Ratio 10.7, Glucose 114 H, Calcium 9.5, Total Bilirubin 0.40, AST 20, ALT 20, Alkaline Phosphatase 78, Lactate Dehydrogenase 139, Total Protein 6.8, Albumin 2.4 L, Globulin 4.4 H, Albumin/Globulin Ratio 0.5 L Microbiology: Microbiology 10/26/22 13:30 Fluid - Thoracentesis Fluid Gram Stain - Final 10/26/22 13:30 Fluid - Thoracentesis Fluid Body Fluid Culture - Preliminary 10/20/22 16:40 Nasal Secretion SARS-CoV-2 Antigen (Rapid) - Final Radiography Diagnostic Testing: Radiology Impression Thoracentesis Ultrasound 10/26/22 07:00 IMPRESSION: Ultrasound-guided right thoracentesis. Electronically Signed: Lopez Barraza MD at 14:12 EDT , Chest X-Ray 10/26/22 13:35 IMPRESSION: No evidence of pneumothorax on the post right lung biopsy radiographs. Electronically Signed: Lopez Barraza MD at 14:27 EDT , D/C Instructions Discharge Diet: Renal Diet Meaningful Use Info Meaningful Use Diagnoses (Choose all that apply): None applicable Discharge Plan Admission Admit Date/Time: 10/20/22 18:35 Primary Reason for Your Visit: Shortness of breath Attending Provider: Nataliia Quezada Primary Care Provider: Yen Valdez FRANCHISE DEVELOPMENT MANAGER Consulting Providers: Soraida Sears ; Malu Smith Instructions Patient Instructions: CAROL RN Thoracentesis Dc Additional Instructions / Restrictions: DISCHARGE INSTRUCTIONS PLEASE READ *Please take this with you to your next doctors appointment* -It is recommended that you take your incentive spirometer home with you and use this routinely -Consider repeat imaging and 2 to 4 weeks vs imagining only if symptoms return. -Continue dialysis and nephrology follow-up as previously scheduled -Continue your home medications -Your blood pressure medications may need further adjusted but this can be done on an outpatient basis with your prescribing physician -Please call your primary care provider's office upon discharge to schedule a hospital follow up within 1 week. -For any concerning signs or symptoms please call 911 or proceed to the nearest emergency department Discharge Orders/Prescriptions Prescriptions: Continued prednisolone 5 mg tablet 10 mg PO DAILY nicotine 14 mg/24 hr patch 24 hour 1 patch transdermal DAILY hydralazine 100 MG tablet 100 mg PO TID amlodipine 10 mg Tablet 10 mg PO DAILY calcium acetate(phosphat bind) 667 mg Capsule 2,001 mg PO TIDCM mirtazapine 45 mg Tablet 45 mg PO QHS Eliquis 2.5 mg Tablet 2.5 mg PO BID Hold Instructions: Resume on 07/22/22. dicyclomine 20 mg tablet 20 mg PO TID Label Comments: Take 1 tablet by mouth three times daily before meals. gabapentin 600 mg tablet 600 mg PO MOWEFR Label Comments: 1 TABLET BY MOUTH (3P-6P AFTER DIALYSIS) DX: gabapentin 300 mg capsule 300 mg PO SUTUTHSA Label Comments: 1 CAPSULE BY MOUTH (3P-6P) DX:E RenaPlex-D 800 mcg-12.5 mg -2,000 unit tablet 1 tab PO MOWEFR Label Comments: TAKE 1 TABLET BY MOUTH EVERY DAY (ON DIALYSIS DAYS, TAKE AFTER DIALYSIS TREATMENT) montelukast [Singulair] 10 mg Tablet 10 mg PO QHS midodrine 10 mg tablet 10 mg PO MOWEFR fluticasone propion-salmeterol [Advair Diskus] 500-50 mcg/dose Blister With Device 1 inh INHALATION BID Spiriva Respimat 2.5 mcg/actuation Mist 2 puff INHALATION DAILY duloxetine 60 mg capsule,delayed release(DR/EC) 60 mg PO DAILY polyethylene glycol 3350 [Miralax] 17 gram/dose powder 17 g PO DAILY albuterol sulfate 2.5 mg /3 mL (0.083 %) Solution For Nebulization 2.5 mg inhalation Q2H PRN PRN (Reason: SOB/Wheezing) 30 Days Qty: 90 1RF acetaminophen [Tylenol] 325 mg Tablet 650 mg PO Q6H PRN PRN (Reason: Pain 1-10 Or Fever >100.7) Qty: 0 0RF Nepro Carb Steady 0.08 gram-1.8 kcal/mL Liquid 120 ml PO 4X/DAY Qty: 0 0RF carvedilol 25 mg tablet 25 mg PO BID pantoprazole 40 mg tablet,delayed release (DR/EC) 40 mg PO BID oxycodone 5 mg tablet 10 mg PO BID albuterol sulfate 90 mcg/actuation HFA aerosol inhaler 2 puff inhalation Q6H oxycodone 10 mg Tablet 10 mg PO BID PRN (Reason: break through pain) Referrals / Follow Up: Yen Valdez FRANCHISE DEVELOPMENT MANAGER, FRANCHISE DEVELOPMENT MANAGER-C [Primary Care Provider] - Within 1 Week Disposition Disposition (needs filled in before D/C Order can be placed): Assisted Living Charges/Coding Visit Charges Inpatient E&M: 87789 Disch Hosp >30min
[2022-10-27] MEDS: Midodrine HCl 5 MG Tablet 10 MG PO (12:57)
[2022-10-27] MEDS: Pantoprazole Sodium 40 MG Tablet PO (12:58)
[2022-10-27] MEDS: Carvedilol 25 MG Tablet PO (12:58)
[2022-10-27] MEDS: APIXABAN 2.5 MG TABLET (WCH) PO (12:58)
[2022-10-27] MEDS: Famotidine 20 MG Tablet 10 MG PO (12:58)
[2022-10-27] MEDS: amLODIPine 10 MG Tablet PO (12:58)
[2022-10-27] MEDS: DULoxetine Hcl 60 MG Capsule PO (12:59)
[2022-10-27] MEDS: Folic Acid/Vitamin B Comp W-C 1 Capsule 1 CAP PO (13:06)
[2022-10-27] MEDS: Gabapentin 600 MG Tablet PO (13:06)
--- NOTE | 2022-10-27 13:06 | CASEMGMT ---
MARIA GUADALUPE faxed orders to [facility]. Evy Paredes BUSINESS CENTER ATTENDANT CARLOS
--- NOTE | 2022-10-27 13:12 | CASEMGMT ---
SW notified patient of discharge and picking table worker. Evy Paredes INSTRUMENTATION CONTROLS ENGINEER ACUPUNCTURIST
--- NOTE | 2022-10-27 13:30 | PHA.DC.MR ---
Pharmacy Service has performed discharge medication reconciliation for this patient. The patient's discharge medication list was reviewed for discrepancies and discrepancies were resolved. Home Medications hydralazine 100 mg tablet 100 mg PO TID BLOOD PRESSURE 03/31/20 amlodipine 10 mg tablet 10 mg PO DAILY blood pressure 11/30/20 calcium acetate(phosphat bind) 667 mg capsule 2,001 mg PO TIDCM health maintenance 11/30/20 apixaban 2.5 mg tablet (Eliquis) 2.5 mg PO BID anticoagulant 01/08/21 mirtazapine 45 mg tablet 45 mg PO QHS INSOMNIA 01/08/21 dicyclomine 20 mg tablet 20 mg PO TID ibs 02/26/21 gabapentin 300 mg capsule 300 mg PO SUTUTHSA NERVE PAIN 10/05/21 gabapentin 600 mg tablet 600 mg PO MOWEFR NERVE PAIN 10/05/21 vit B,C-folic ac 800 mcg-zinc 12.5 mg-selen-D3 2,000 unit-vit E tablet (RenaPlex-D) 1 tab PO MOWEFR DIALYSIS 10/05/21 montelukast 10 mg tablet (Singulair) 10 mg PO QHS ALLERGIES 10/25/21 midodrine 10 mg tablet 10 mg PO MOWEFR bp 02/23/22 duloxetine 60 mg capsule,delayed release 60 mg PO DAILY DEPRESSION 05/19/22 fluticasone 500 mcg-salmeterol 50 mcg/dose blistr powdr for inhalation (Advair Diskus) 1 inh inhalation BID sob 05/19/22 polyethylene glycol 3350 17 gram/dose oral powder (Miralax) 17 g PO DAILY CONSTIPATION 05/19/22 tiotropium bromide 2.5 mcg/actuation mist for inhalation (Spiriva Respimat) 2 puff inhalation DAILY sob 05/19/22 albuterol sulfate 2.5 mg/3 mL (0.083 %) solution for nebulization 2.5 mg (3 mL) inhalation Q2H PRN PRN SOB/Wheezing 30 days #90 mL 05/20/22 acetaminophen 325 mg tablet (Tylenol) 650 mg PO Q6H PRN PRN Pain 1-10 Or Fever >100.7 #0 tabs 06/13/22 nut.tx.imp.renal fxn,lac-reduc 0.08 gram-1.8 kcal/mL oral liquid (Nepro Carb Steady) 120 ml PO 4X/DAY #0 mL 06/28/22 prednisolone 5 mg tablet 10 mg PO DAILY Check with primary doctor 09/25/22 nicotine 14 mg/24 hr daily transdermal patch 1 patch transdermal DAILY Check with primary doctor 09/28/22 albuterol sulfate 90 mcg/actuation aerosol inhaler 2 puff inhalation Q6H sob 10/20/22 carvedilol 25 mg tablet 25 mg PO BID bp 10/20/22 oxycodone 10 mg tablet 10 mg PO BID PRN break through pain 10/20/22 oxycodone 5 mg tablet 10 mg PO BID pain 10/20/22 pantoprazole 40 mg tablet,delayed release 40 mg PO BID gerd 10/20/22
--- NOTE | 2022-10-27 14:06 | DIALYSIS ---
Hemodialysis x3.0 hours (patient requested off at 2.5 hours - would not tolerate 3.5 hours as scheduled). Net UF 550 ml. VSS. Blood returned to patient. HD catheter ports closed with heparin. Catheter dressing changed. RN report at bedside.
[2022-10-30 11:08] LABS: Amylase Body Fluid 35 U/L (.); pH, Body Fluid 11254 7.4 (Not Estab.)
== END 2022-10-27 15:20 | disposition home or self-care (01) | DRG 186 ==
LOC: ED 18:30 → PCU 18:47
PROVIDERS: Internal Medicine Nephrology; Admitting Provider Student in an Organized Health Care Education/Training Program; Emergency Provider Emergency Medicine; PCP Nurse Practitioner Adult Health; Referring Provider Emergency Medicine; Visit Provider Internal Medicine
DX: J90 Pleural effusion, not elsewhere classified (principal); N18.6 End stage renal disease; E43 Unspecified severe protein-calorie malnutrition; J96.11 Chronic respiratory failure with hypoxia; I13.2 Hypertensive heart and chronic kidney disease with heart failure and with stage 5 chronic kidney disease, or end stage renal disease; I50.22 Chronic systolic (congestive) heart failure; E11.22 Type 2 diabetes mellitus with diabetic chronic kidney disease; Z99.2 Dependence on renal dialysis; I48.91 Unspecified atrial fibrillation; J43.9 Emphysema, unspecified; E87.79 Other fluid overload; E87.5 Hyperkalemia; E78.00 Pure hypercholesterolemia, unspecified; E83.52 Hypercalcemia; K21.9 Gastro-esophageal reflux disease without esophagitis; I25.10 Atherosclerotic heart disease of native coronary artery without angina pectoris; F17.210 Nicotine dependence, cigarettes, uncomplicated; I25.2 Old myocardial infarction; Z68.20 Body mass index [BMI] 20.0-20.9, adult; Z99.81 Dependence on supplemental oxygen; Z79.01 Long term (current) use of anticoagulants; Z79.899 Other long term (current) drug therapy; Z86.73 Personal history of transient ischemic attack (TIA), and cerebral infarction without residual deficits
CPT/HCPCS: 32555; 36415; 71045; 71046; 71250; 80048; 80053; 80076; 82150; 82945; 82962; 83615; 83986; 84145; 84156; 84157; 85025; 86706; 87070; 87075; 87205; 87340; 87811; 88108; 88305; 88313; 89050; 90937; 93005; 94640; 94668; 97110; 97162; 97166; 97530; 97535; 97802; 97803; 99285; J7030; A4216; G0257

== ENCOUNTER 2022-10-30 08:07 | Inpatient (IN) | payer MEDICARE, MEDICAID, SELFPAY ==
[2022-10-30] VITALS (9 sets, daily range): BP systolic 111–147; BP diastolic 57–95; PULSE 55–107; RESP 18–28; TEMP 36.4–37.2; O2SAT 93–100; BMI 22.1; BMI 21.4
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
--- NOTE | 2022-10-30 08:39 | RAD_ITS ---
STUDY: X-RAY CHEST REASON FOR EXAM: Female, 72 years old. Chest pain TECHNIQUE: PA and lateral views of the chest. COMPARISON: Comparison is made with prior study dated October 26, 2022. FINDINGS: A right-sided dialysis catheter is seen with the tip in the right atrium. Increasing pleural parenchymal changes at the right lung base. Mild increased linear markings at the left lung base with blunting of the left costophrenic angle. Normal size heart. Normal mediastinum and farhan. Normal visualized pulmonary arteries. There is atherosclerotic calcification of the aortic arch with tortuosity. Normal visualized thoracic spine. Normal visualized ribs, clavicles, and shoulders. There is no demonstrated abnormality of the visualized soft tissue structures of the upper abdomen. RAD/Chest PA and Lateral IMPRESSION: Increasing pleural-parenchymal changes in the right hemithorax. Electronically Signed: Lopez Barraza MD at 9:34 EDT ,
[2022-10-30 09:12] LABS: Absolute Lymphocyte Count 0.99 X10^3/uL (0.83-4.51); Absolute Neutrophil Count 9.5 X10^3/uL (2.0-7.7); Basophil# 0.04 X10^3/uL; Basophil% 0.3 % (0-1); Eosinophil# 0.07 X10^3/uL; Eosinophils% 0.6 % (0-5); Hematocrit 28.6 % (37-47); Hemoglobin 8.5 g/dL (12.0-15.0); Lymphocyte # 0.99 X10^3/ul (0.83-4.51); Lymphocyte % 8.3 % (19-41); Mean Corp Hgb Conc 29.7 g/dL (32-36); Mean Corpuscular Hgb 27.1 pg (27.0-32.0); Mean Corpuscular Volume 91.1 fL (81-99); Mean Platelet Vol. 9.3 fl (6.2-12.0); Monocyte# 1.26 X10^3/uL; Monocyte% 10.5 % (0-10); NRBC Flagged by Analyzer 0 % (0-5); Neutrophil # 9.54 X10^3/uL (2.7-7.7); Neutrophil % 79.5 % (47-70); POSITIVE MORPHOLOGY YES; Platelet Count 273 K/mm3 (150-450); RBC Distribution Width CV 19.8 % (11.6-14.6); RBC Distribution Width SD 65.9 fl (35.1-43.9); Red Blood Count 3.14 M/mm3 (4.2-5.4)
[2022-10-30 09:32] LABS: Differential Indicated SCAN CRITERIA MET
[2022-10-30 09:33] LABS: Anion Gap 7 (5-15); BUN 73 mg/dL (7-18); BUN/Creat Ratio 8.8 RATIO (10-20); Calcium,Total 10.4 mg/dL (8.5-10.1); Chloride 96 mmol/L (98-107); Creatinine, Serum 8.34 mg/dL (0.55-1.02); EST Glomerular Filtration Rate 5 mL/min (>60); Est Glom Filt Rate - Afr Amer 6 mL/min (>60); Estimated Creatinine Clearance 6.56 ml/min; Glucose 98 mg/dL (74-106); Potassium 6.1 mmol/L (3.5-5.1); Sodium Level 130 mmol/L (136-145); Troponin-I HS 278 pg/mL (3.0-54.0)
[2022-10-30] MEDS: Morphine 2 MG/ML Syringe IV (10:14)
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
[2022-10-30 10:52] LABS: Anisocytosis 2+; Differential Comment SCANNED; Macrocytosis 1+; Microcytosis 1+
[2022-10-30 11:03] LABS: Magnesium 2.7 mg/dL (1.6-2.6); Phosphorus 3.5 mg/dL (2.5-4.9)
[2022-10-30 11:23] LABS: Troponin-I HS 296 pg/mL (3.0-54.0)
[2022-10-30 11:40] LABS: BNP,B-Type NATRIURETIC PEPTIDE 2761.2 pg/mL (0-100)
[2022-10-30] MEDS: Dextrose 50%-Water 25 GM/50 ML DISP.SYRIN IV (11:43)
[2022-10-30] MEDS: Aspirin 81 MG TAB.CHEW 324 MG PO (11:52)
--- NOTE | 2022-10-30 12:53 | CT_ITS ---
STUDY: CTA CHEST REASON FOR EXAM: Female, 72 years old. Rule out pulmonary embolus. RADIATION DOSAGE (If Supplied By Facility): CTDIvol = ( 9.38 ) mGy, DLP = ( 227.04 ) mGycm TECHNIQUE: The examination was performed with the intravenous administration of IV 75mL [id number]-[id number]. Post-processing of the angiographic images was performed, with multiplanar reformation and 3D reconstruction. Individualized dose optimization techniques were used for this CT. COMPARISON: Chest, October 30, 2022. CT of the chest, October 24, 2022 FINDINGS: Normal enhancement of the main pulmonary artery and right and left pulmonary arteries. Normal enhancement of the bilateral peripheral pulmonary arteries. There is no demonstrated pulmonary embolism. Minimal atherosclerotic tortuosity of the thoracic aorta without aneurysm. 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 There is no demonstrated aortic dissection. The heart is enlarged. Normal pericardium minimal coronary artery calcifications . Normal mediastinum. Normal hilar regions. Normal visualized trachea and bronchi. The lungs are well expanded. Normal pulmonary parenchyma. There is a small to moderate right pleural effusion with subsegmental atelectasis. There is a tiny left pleural effusion which blunts the costophrenic angle. Normal chest wall structures. There are degenerative changes of thoracic spine. Normal visualized upper abdomen. CT/CTA Chest W/WO Contrast IMPRESSION: 1. No evidence of pulmonary embolus. 2. No aortic dissection or aneurysm. 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 4. Cardiomegaly. 5. Bilateral pleural effusions, right greater than left. Electronically Signed: Giuseppe Malone DO at 22:48 EDT ,
--- NOTE | 2022-10-30 12:55 | ECHOD_ITS ---
Reason For Study: Chest Pain Procedure This was a 2D Doppler, Color Flow transthoracic echocardiogram. Exam performed portable in patient room. Left Ventricle Normal LV size. Moderate concentric left ventricular hypertrophy. The left ventricular ejection fraction is 50 %. Unable to assess diastolic dysfunction. Right Ventricle Normal right ventricle. Atria The left atrium is severely enlarged. The right atrium is moderately enlarged. Mitral Valve Trivial mitral valve insufficiency. Tricuspid Valve Moderate (2+) tricuspid valve insufficiency. Pulmonary artery systolic pressure is 51 mmHg. Aortic Valve Normal aortic valve. Pulmonic Valve The pulmonic valve is not well visualized. Great Vessels The aortic root is not well visualized. MMode/2D Measurements & Calculations LVIDd: 4.8 cm IVSd: 1.5 cm LA dimension: 4.9 cm LVIDs: 3.3 cm LVPWd: 1.4 cm RVDd: 4.3 cm FS: 30.2 % LAV(MOD-bp): 88.0 ml LA A4 area: 25.5 cm2 RA A4 area: 19.3 cm2 LAV(MOD-bp) Indexed: 49.0 ml/m2 LAV(MOD-sp2): 89.6 ml LAV(MOD-sp4): 81.5 ml Doppler Measurements & Calculations MV E max tori: 116.6 cm/sec MV V2 max: 115.5 cm/sec Ao V2 max: 178.0 cm/sec MV max P.4 mmHg Ao max P.7 mmHg MV V2 mean: 44.8 cm/sec Ao V2 mean: 115.6 cm/sec MV mean P.2 mmHg Ao mean P.3 mmHg MV V2 VTI: 39.3 cm Ao V2 VTI: 34.1 cm AV (velocity ratio): 0.72 LV V1 max: 130.0 cm/sec PA V2 max: 100.1 cm/sec TR max tori: 328.6 cm/sec LV V1 max P.9 mmHg TR max P.2 mmHg LV V1 mean P.6 mmHg LV V1 mean: 87.5 cm/sec LV V1 VTI: 24.7 cm ECHO/Echo Complete Interpretation Summary The left ventricular ejection fraction is 50 %.. Mild inferior and inferior sep belgica hypokinesis Unable to assess diastolic dysfunction. The left atrium is severely enlarged. The right atrium is moderately enlarged. Moderate (2+) tricuspid valve insufficiency. Pulmonary artery systolic pressure is 51 mmHg. Ordering Physician: Kip White Performed By: Adelso Brewer RCS
[2022-10-30] MEDS: Calcium Acetate 667 MG Capsule 2001 MG PO ×2 (12:57→20:21)
[2022-10-30] MEDS: Nitroglycerin Oint 1 INCH PACKET 0.5 INCH TD ×2 (12:58→20:26)
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
[2022-10-30 13:10] LABS: International Normalized Ratio 1.3; Prothrombin Time (Protime)PT. 16.5 SECONDS (11.7-14.9)
[2022-10-30 13:11] LABS: Partial Thromboplast Time 36.2 Seconds (24.1-36.2)
[2022-10-30] MEDS: 0.9% Saline Lock 10 ML Syringe IV (13:46)
[2022-10-30] MEDS: HEPARIN/D5w 25,000 UNITS 25,000 UNITS/250 ML IV.SOLN. 8 UNITS CONT INF (13:46)
[2022-10-30 15:56] LABS: Troponin-I HS 292 pg/mL (3.0-54.0)
--- NOTE | 2022-10-30 18:59 | DIALYSIS ---
HD x 3 hours on 2k bath Uf-700ml tolerated tx well Report given to Yuliana PAREDES
[2022-10-30] MEDS: Albuterol 2.5 MG/3 ML VIAL.NEB. INHALATION ×2 (19:16→23:20)
[2022-10-30] MEDS: Budesonide Respules 0.5 MG/2 ML AMPUL.NEB. INHALATION (19:16)
[2022-10-30] MEDS: Ipratropium 0.5 MG/2.5 ML SOLUTION INHALATION (19:16)
[2022-10-30] MEDS: Carvedilol 25 MG Tablet PO (20:21)
[2022-10-30] MEDS: Pantoprazole Sodium 40 MG Tablet PO (20:22)
[2022-10-30] MEDS: Mirtazapine 15 MG Tablet 45 MG PO (20:22)
[2022-10-30] MEDS: Montelukast 10 MG Tablet PO (20:22)
[2022-10-30] MEDS: Dicyclomine 10 MG Capsule 20 MG PO (20:22)
[2022-10-30 20:45] LABS: Partial Thromboplast Time 54.2 Seconds (24.1-36.2)
[2022-10-30] MEDS: Gabapentin 600 MG Tablet PO (21:38)
[2022-10-30] MEDS: Calcitriol 0.25 MCG Capsule PO (21:40)
[2022-10-30] MEDS: Midodrine HCl 5 MG Tablet 10 MG PO (21:40)
[2022-10-31] VITALS (8 sets, daily range): BP systolic 118–152; BP diastolic 64–74; PULSE 62–90; RESP 17–26; TEMP 36.6–37.2; O2SAT 96–100; BMI 21.2
[2022-10-31 03:48] LABS: Partial Thromboplast Time 52.9 Seconds (24.1-36.2)
[2022-10-31 03:55] LABS: International Normalized Ratio 1.2; Prothrombin Time (Protime)PT. 15.2 SECONDS (11.7-14.9)
[2022-10-31 04:04] LABS: BUN 30 mg/dL (7-18); BUN/Creat Ratio 6.8 RATIO (10-20); Calcium,Total 9.1 mg/dL (8.5-10.1); Cholesterol 106 mg/dL (200); Creatinine, Serum 4.39 mg/dL (0.55-1.02); EST Glomerular Filtration Rate 11 mL/min (>60); Est Glom Filt Rate - Afr Amer 13 mL/min (>60); Estimated Creatinine Clearance 12.37 ml/min; Glucose 85 mg/dL (74-106)
[2022-10-31 04:05] LABS: Anion Gap 4 (5-15); Chloride 106 mmol/L (98-107); High Density Lipoprotein 48 mg/dL; Potassium 4.8 mmol/L (3.5-5.1); Sodium Level 133 mmol/L (136-145); Thyroid Stim Hormone (TSH) 3.62 uIU/mL (0.358-3.74); Triglycerides 78 mg/dL; Very Low Density Lipoprotein 16 mg/dL (5-40)
[2022-10-31] MEDS: Dicyclomine 10 MG Capsule 20 MG PO ×3 (06:24→21:45)
[2022-10-31] MEDS: Nitroglycerin Oint 1 INCH PACKET 0.5 INCH TD ×3 (06:25→17:19)
[2022-10-31 07:05] LABS: Absolute Lymphocyte Count 1.05 X10^3/uL (0.83-4.51); Absolute Neutrophil Count 6.8 X10^3/uL (2.0-7.7); Basophil# 0.03 X10^3/uL; Basophil% 0.3 % (0-1); Eosinophil# 0.11 X10^3/uL; Eosinophils% 1.2 % (0-5); Hematocrit 26.2 % (37-47); Hemoglobin 7.7 g/dL (12.0-15.0); Lymphocyte # 1.05 X10^3/ul (0.83-4.51); Lymphocyte % 11.1 % (19-41); Mean Corp Hgb Conc 29.4 g/dL (32-36); Mean Corpuscular Hgb 27.4 pg (27.0-32.0); Mean Corpuscular Volume 93.2 fL (81-99); Mean Platelet Vol. 9.5 fl (6.2-12.0); Monocyte# 1.41 X10^3/uL; Monocyte% 14.9 % (0-10); NRBC Flagged by Analyzer 0.2 % (0-5); Neutrophil # 6.78 X10^3/uL (2.7-7.7); Neutrophil % 71.5 % (47-70); POSITIVE MORPHOLOGY YES; Platelet Count 273 K/mm3 (150-450); RBC Distribution Width CV 19.5 % (11.6-14.6); RBC Distribution Width SD 66.9 fl (35.1-43.9); Red Blood Count 2.81 M/mm3 (4.2-5.4); White Blood Count 9.5 K/mm3 (4.4-11.0)
[2022-10-31] MEDS: Budesonide Respules 0.5 MG/2 ML AMPUL.NEB. INHALATION ×2 (07:05→19:46)
[2022-10-31] MEDS: Ipratropium 0.5 MG/2.5 ML SOLUTION INHALATION (07:05)
[2022-10-31] MEDS: Albuterol 2.5 MG/3 ML VIAL.NEB. INHALATION (07:05)
[2022-10-31 07:07] LABS: Differential Indicated SCAN CRITERIA MET
[2022-10-31 07:47] LABS: Differential Comment SCANNED; Polychromasia RARE
[2022-10-31 07:48] LABS: Anisocytosis 2+; Macrocytosis 1+; Microcytosis 1+
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
--- NOTE | 2022-10-31 09:59 | PCM.PN.CARD ---
Subjective Subjective Patient's somnolent this morning. Sitting in the chair. Reports feeling better. Denies any complaints. Objective Data Vital Signs: Vital Signs Temp Pulse Resp BP Pulse Ox O2 Del Method O2 Flow Rate 98 F 72 26 H 118/70 99 Nasal Cannula 4 10/31/22 04:00 10/31/22 07:06 10/31/22 07:06 10/31/22 06:25 10/31/22 07:06 10/31/22 09:41 10/31/22 09:41 Oxygen Flow Rate (L/min) 4 Oxygen Delivery Method Nasal Cannula Weight: 144 lb 2.917 oz Body Mass Index (BMI) 21.2 Intake & Output: Intake and Output for Last 24 Hours 10/29/22 10/30/22 10/31/22 23:59 23:59 23:59 Intake Total 63.73 / 63.73 58.5 / 58.5 Balance 63.73 / 63.73 58.5 / 58.5 Lab / Micro Data Result Diagrams: 10/31/22 06:30 10/31/22 03:30 Labs: Laboratory Results - last 24 hr 10/30/22 09:00: Differential Comment SCANNED, Anisocytosis 2+, Microcytosis 1+, Macrocytosis 1+ 10/30/22 09:00: Phosphorus 3.5, Magnesium 2.7 H 10/30/22 09:00: B-Natriuretic Peptide 2761.2 H 10/30/22 10:56: Troponin I High Sens 296 H* 10/30/22 12:50: PT 16.5 H, INR 1.3, APTT 36.2 10/30/22 15:10: Troponin I High Sens 292 H* 10/30/22 20:22: APTT 54.2 H 10/31/22 03:30: PT 15.2 H, INR 1.2 10/31/22 03:30: Sodium 133 L, Potassium 4.8, Chloride 106, Carbon Dioxide 23.0, Anion Gap 4 L, BUN 30 H, Creatinine 4.39 H, Estim Creat Clear Calc 12.37, Est GFR (MDRD) Af Amer 13 L, Est GFR (MDRD) Non-Af 11 L, BUN/Creatinine Ratio 6.8 L, Glucose 85, Calcium 9.1, Triglycerides 78, Cholesterol 106, LDL Cholesterol 42, VLDL Cholesterol 16, HDL Cholesterol 48, TSH 3.62 10/31/22 03:30: APTT 52.9 H 10/31/22 06:30: WBC 9.5, RBC 2.81 L, Hgb 7.7 L, Hct 26.2 L, MCV 93.2, MCH 27.4, MCHC 29.4 L, RDW Std Deviation 66.9 H, RDW Coeff of Destiny 19.5 H, Plt Count 273, MPV 9.5, Immature Gran % (Auto) 1.000 H, Neut % (Auto) 71.5 H, Lymph % (Auto) 11.1 L, [place] % (Auto) 14.9 H, Eos % (Auto) 1.2, Baso % (Auto) 0.3, Absolute Neuts (auto) 6.8, Absolute Lymphs (auto) 1.05, Nucleated RBC % 0.2, Differential Comment SCANNED, Polychromasia RARE, Anisocytosis 2+, Microcytosis 1+, Macrocytosis 1+ Micro: Microbiology 10/30/22 08:46 Nasal Secretion SARS-CoV-2 & FLU Antigen (Rapid) - Final Rhythm Strip Rhythm Strip: Sinus Rhythm Cardiology Labs/Tests 10/30/22 09:00: Phosphorus 3.5, Magnesium 2.7 H 10/30/22 09:00: B-Natriuretic Peptide 2761.2 H 10/30/22 12:50: PT 16.5 H, INR 1.3, APTT 36.2 10/30/22 20:22: APTT 54.2 H 10/31/22 03:30: PT 15.2 H, INR 1.2 10/31/22 03:30: Sodium 133 L, Potassium 4.8, Chloride 106, Carbon Dioxide 23.0, Anion Gap 4 L, BUN 30 H, Creatinine 4.39 H, Est GFR (MDRD) Af Amer 13 L, Est GFR (MDRD) Non-Af 11 L, BUN/Creatinine Ratio 6.8 L, Glucose 85, Calcium 9.1, Triglycerides 78, Cholesterol 106, LDL Cholesterol 42, VLDL Cholesterol 16, HDL Cholesterol 48 10/31/22 03:30: APTT 52.9 H 10/31/22 06:30: WBC 9.5, RBC 2.81 L, Hgb 7.7 L, Hct 26.2 L, MCV 93.2, MCH 27.4, MCHC 29.4 L, Plt Count 273, MPV 9.5, Immature Gran % (Auto) 1.000 H, Neut % (Auto) 71.5 H, Lymph % (Auto) 11.1 L, [place] % (Auto) 14.9 H, Eos % (Auto) 1.2, Baso % (Auto) 0.3, Absolute Neuts (auto) 6.8, Nucleated RBC % 0.2 Rhythm: EKG: ECHO: Stress Test: Cardiac Cath: PCI: CT Surgery: Holter monitor: EPS: PPM: CXR: Chest CT Scan: Radiography Diagnostic Testing: Radiology Impression Chest CTA 10/30/22 12:53 IMPRESSION: 1. No evidence of pulmonary embolus. 2. No aortic dissection or aneurysm. 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 4. Cardiomegaly. 5. Bilateral pleural effusions, right greater than left. Electronically Signed: Giuseppe Malone DO at 22:48 EDT Reading Location ID and State: [address] [place] [address] Tel [phone], Service support , Echocardiogram 10/30/22 12:55 Interpretation Summary The left ventricular ejection fraction is 50 %.. Mild inferior and inferior septal hypokinesis Unable to assess diastolic dysfunction. The left atrium is severely enlarged. The right atrium is moderately enlarged. Moderate (2+) tricuspid valve insufficiency. Pulmonary artery systolic pressure is 51 mmHg. Ordering Physician: Kip White Performed By: Adelso Brewer RCS Physical Exam Narrative No carotid bruits. Heart sounds 1 and 2 are noted. 2/6 systolic murmur at base. Chest examination shows markedly decreased breath sounds by laterally. Abdomen soft. No ankle edema noted.
[2022-10-31 10:23] LABS: Partial Thromboplast Time 53.3 Seconds (24.1-36.2)
[2022-10-31] MEDS: Aspirin E.C. 81 MG Tablet PO (10:27)
--- NOTE | 2022-10-31 10:30 | CASEMGMT ---
Hospitalist requesting palliative consult, order received. RN MITA sent referral via email. Per [facility], Patient is active with palliative care and last seen on 10/10/22. [facility] states they have discuss hospice care with patient but patient declines hospice services. Hospitalist and SW updated.
--- NOTE | 2022-10-31 12:24 | PCM.PN.HOSP ---
Reason for Visit Reason for Visit: Diagnoses Anemia, unspecified (10/30/22) Hyperkalemia (10/30/22) Nicotine dependence, unspecified, uncomplicated (10/30/22) Essential (primary) hypertension (10/30/22) Non-ST elevation (NSTEMI) myocardial infarction (10/30/22) Paroxysmal atrial fibrillation (10/30/22) Chronic obstructive pulmonary disease, unspecified (10/30/22) End stage renal disease (10/30/22) Chest pain, unspecified (10/30/22) Other specified abnormalities of plasma proteins (10/30/22) Dependence on renal dialysis (10/30/22) Subjective Subjective Follow-up for atypical chest pain, shortness of breath multiple other comorbidities including severe anemia. Objective Data Objective Data Vital Signs: Vital Signs Temp Pulse Resp BP Pulse Ox O2 Del Method O2 Flow Rate 97.9 F 62 17 133/64 H 100 Nasal Cannula 4 10/31/22 10:21 10/31/22 10:21 10/31/22 10:21 10/31/22 10:21 10/31/22 10:21 10/31/22 10:21 10/31/22 10:21 Oxygen Flow Rate (L/min) 4 Oxygen Delivery Method Nasal Cannula Weight: 144 lb 2.917 oz Body Mass Index (BMI) 21.2 Intake & Output: Intake and Output for Last 24 Hours 10/29/22 10/30/22 10/31/22 23:59 23:59 23:59 Intake Total 63.73 / 63.73 121.0 / 121.0 Balance 63.73 / 63.73 121.0 / 121.0 Medical Nutrition Assessment Dietitian: Malnutrition Criteria Met Start: 10/31/22 10:14 Freq: Status: Active Protocol: Document 10/31/22 10:14 AG (Rec: 10/31/22 10:14 AG [id number]) Nutrition Malnutrition Evidence of Malnutrition Exists Yes Malnutrition (moderate): Chronic Evidenced By Suboptimal Energy Intake ( Moderate),Physical Changes ( Moderate) Clinical Problem Chronic Disease or Condition Related Malnutrition Etiology moderate, chronic malnutrition related to inadequate energy intake w/ increased energy needs d/t ESRD/HD Signs/Symptoms as evidenced by estimated PO intake meeting< 75% of estimated energy needs > 3 months; Mild muscle wasting/ fat loss evident per physical exam in orbital, clavicle, acromion, and temporal areas. Status Active Problem Recommendation Dietitian Recommendations/Changes continue cardiac diet when medically indicated; will monitor PO intake/labs and adjust diet as indicated; will order Nepro Carb Steady 120mL 4x/day w/ medpass for additional calories/protein if consumed. Will monitor PO intake and provide additional ONS as indicated. Lab / Micro Data Result Diagrams: 10/31/22 06:30 10/31/22 03:30 Labs: Laboratory Results - last 24 hr 10/30/22 12:50: PT 16.5 H, INR 1.3, APTT 36.2 10/30/22 15:10: Troponin I High Sens 292 H* 10/30/22 20:22: APTT 54.2 H 10/31/22 03:30: PT 15.2 H, INR 1.2 10/31/22 03:30: Sodium 133 L, Potassium 4.8, Chloride 106, Carbon Dioxide 23.0, Anion Gap 4 L, BUN 30 H, Creatinine 4.39 H, Estim Creat Clear Calc 12.37, Est GFR (MDRD) Af Amer 13 L, Est GFR (MDRD) Non-Af 11 L, BUN/Creatinine Ratio 6.8 L, Glucose 85, Calcium 9.1, Triglycerides 78, Cholesterol 106, LDL Cholesterol 42, VLDL Cholesterol 16, HDL Cholesterol 48, TSH 3.62 10/31/22 03:30: APTT 52.9 H 10/31/22 06:30: WBC 9.5, RBC 2.81 L, Hgb 7.7 L, Hct 26.2 L, MCV 93.2, MCH 27.4, MCHC 29.4 L, RDW Std Deviation 66.9 H, RDW Coeff of Destiny 19.5 H, Plt Count 273, MPV 9.5, Immature Gran % (Auto) 1.000 H, Neut % (Auto) 71.5 H, Lymph % (Auto) 11.1 L, [place]osh[place] % (Auto) 14.9 H, Eos % (Auto) 1.2, Baso % (Auto) 0.3, Absolute Neuts (auto) 6.8, Absolute Lymphs (auto) 1.05, Nucleated RBC % 0.2, Differential Comment SCANNED, Polychromasia RARE, Anisocytosis 2+, Microcytosis 1+, Macrocytosis 1+ 10/31/22 10:00: APTT 53.3 H Micro: Microbiology 10/30/22 08:46 Nasal Secretion SARS-CoV-2 & FLU Antigen (Rapid) - Final Radiography Diagnostic Testing: Radiology Impression Chest CTA 10/30/22 12:53 IMPRESSION: 1. No evidence of pulmonary embolus. 2. No aortic dissection or aneurysm. 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 4. Cardiomegaly. 5. Bilateral pleural effusions, right greater than left. Electronically Signed: Giuseppe Malone DO at 22:48 EDT Reading Location ID and State: [address] [place] [address] Tel [phone], Service support , Echocardiogram 10/30/22 12:55 Interpretation Summary The left ventricular ejection fraction is 50 %.. Mild inferior and inferior septal hypokinesis Unable to assess diastolic dysfunction. The left atrium is severely enlarged. The right atrium is moderately enlarged. Moderate (2+) tricuspid valve insufficiency. Pulmonary artery systolic pressure is 51 mmHg. Ordering Physician: Kip White Performed By: Adelso Brewer RCS Rhythm Strip Rhythm Strip: Sinus Rhythm Physical Exam Narrative Overall patient feels better in regard to chest pain and shortness of breath. She is on hemodialysis Sunday.Blood pressure is controlled. Patient going for stress test today. General: Alert, Oriented x3, Cooperative HEENT: Atraumatic, PERRLA, EOMI, Normocephalic Oral: Oral mucosa dry. No Gingival or Mucosal Lesions/ Ulcerations Neck: Supple, No JVD, Negative Carotid Bruits Chest wall/lungs: Dialysis catheter on right chest. Air entry diminished in right lung base more than left lung base. No crepitation/rhonchi. On 4 L of oxygen. Cardiovascular: Regular rate, Regular Rhythm, Normal S1, Normal S2, systolic murmur LSB Abdomen: Bowel Sounds Present, Soft, Non Tender, Non-Distended. : On hemodialysis. No renal angle tenderness. No suprapubic tenderness. Extremities: No edema, Capillary Refill Less than 3 Seconds Skin: No rashes, No breakdown Musculoskeletal: ROM restricted over knee and hip joints. 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 Assessment & Plan Assessment/Plan (1) Acute hyperkalemia: (2) Acute non-ST elevation myocardial infarction (NSTEMI): PLAN: Plan This 72-year-old female is being admitted for further evaluation of right-sided chest pain, new EKG changes and high troponin. 1. Right-sided chest pain elevated troponin, most likely non-STEMI but other differential diagnosis right-sided pleuritic chest pain/recent thoracocentesis: Patient is being admitted in PCU. Patient on Eliquis 2.5 mg twice daily for history of paroxysmal A-fib. CHELSEA risk score 4. On 09/14 her troponin were normal. Pig Casting Machine Operator is consulted. Patient is started on aspirin 325 mg and heparin drip without bolus. It seems patient had cardiac cath in 2007 but did not require a stent at that time. Patient on carvedilol continued. 10/31: Patient had CT angiogram which did not show PE. Right [id number] pleural effusion and left small pleural effusion. She had thoracocentesis recently about 1 week ago and 220 mL was aspirated. I do not think patient has enough fluid for thoracocentesis. First troponin 278, second troponin 296 and third 1 292. Serial troponins profile shows flat and plateau like with no significant delta change. With low probability of non-STEMI and therefore nuclear stress test was ordered. Echo shows EF 50% LA severely enlarged right a moderately large. Mild inferior and inferior septal hypokinesis. Moderate TR with PASP 51 mmHg. 2. Hyperkalemia with ESRD: Potassium 6.1 reported slight hemolysis. Patient was given insulin and D50 in ED. Public Policy Manager is consulted. Patient on hemodialysis Sunday and Sunday. 10/31: Patient was dialyzed yesterday. 3. Acute on chronic HFpEF and HFrEF, present on admission, paroxysmal A-fib, mild valvular heart disease, recent right thoracocentesis : Recent echo on 10/30 as mentioned above. Patient on hemodialysis. Patient is anuric. Patient on carvedilol and aspirin. Patient not candidate for NATALIA/ARB because of ESRD on hemodialysis and hyperkalemia. Overall not good prognosis with recurrent admission. Palliative care ordered Patient had last echo in September 2020 reported EF 40% moderate TR, trivial MR mild diffuse aortic valve thickening. RVSP 44 mmHg. she had thoracocentesis on 10/26 with 220 mL of blood-tinged fluid removed. Fluid was transudate and negative for malignant cells. Hold Eliquis as patient is on IV heparin drip. 4. Chronic respiratory failure secondary to COPD: She denies change in characteristic of cough or shortness of breath does not seem to be in COPD exacerbation. Continue DuoNeb as needed. Continue home inhalers. 5. Hypertension: Blood pressure is in normal range. Hold antihypertensive medications. #Hypertension: 6. GERD: On PPI Clinical Impression(s) from Imaging Studies Chest X-Ray 10/30/22 08:39 IMPRESSION: Increasing pleural-parenchymal changes in the right hemithorax. Electronically Signed: Lopez Barraza MD at 9:34 EDT , Chest CTA 10/30/22 12:53 IMPRESSION: 1. No evidence of pulmonary embolus. 2. No aortic dissection or aneurysm. 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 4. Cardiomegaly. 5. Bilateral pleural effusions, right greater than left. Electronically Signed: Giuseppe Malone DO at 22:48 EDT , Echocardiogram 10/30/22 12:55 Interpretation Summary The left ventricular ejection fraction is 50 %.. Mild inferior and inferior septal hypokinesis Unable to assess diastolic dysfunction. The left atrium is severely enlarged. The right atrium is moderately enlarged. Moderate (2+) tricuspid valve insufficiency. Pulmonary artery systolic pressure is 51 mmHg. Ordering Physician: Kip White Performed By: Adelso Brewer [facility] Living will/advanced directive/end of life care: Patient does not have living will or advanced directive. Her son is next to kin and power of smoking tobacco packing machine hand for health. After discussion of benefits/risks procedures involved with full code, DNR CC arrest and DNR CC, the patient opted for full code. Patient does want artificial life support including intubation, tube feed, ventilator and/chest compression, central venous catheter, vasopressor and DC shock if needed Total time spent in [id number] encounter in discussion of advanced directive 17 minutes. Charges/Coding Visit Charges Inpatient E&M: 25603 Subs Hosp L3
[2022-10-31] MEDS: Gabapentin 300 MG Capsule PO (14:26)
[2022-10-31] MEDS: Vitamin B Comp W-C Capsule 1 CAP PO (14:27)
[2022-10-31] MEDS: DULoxetine Hcl 60 MG Capsule PO (14:27)
[2022-10-31] MEDS: Calcium Acetate 667 MG Capsule 2001 MG PO ×2 (14:27→17:18)
[2022-10-31] MEDS: predniSONE 10 MG Tablet PO (14:28)
[2022-10-31] MEDS: Polyethylene Glycol 3350 17 GM PACKET PO (14:29)
[2022-10-31] MEDS: Pantoprazole Sodium 40 MG Tablet PO ×2 (14:30→21:46)
[2022-10-31] MEDS: oxyCODONE 5 MG Tablet 10 MG PO (14:45)
--- NOTE | 2022-10-31 14:48 | CASEMGMT ---
MARIA GUADALUPE received a call from Pat at [facility]. Pat wanted to make sure [facility] is aware of their limitations since they are assisted living. They are frustrated with patient going back and forth to the hospital. MARIA GUADALUPE explained that therapy is always ordered while here and when patient leaves she is on her regular O2. SW expressed WC has same concerns with patient going back and forth. SW did express when patient was at the group home she was in and out as well. Therapy will see patient and we can talk with patient. Evy Paredes [employer] [facility]
--- NOTE | 2022-10-31 15:32 | STRESSREP ---
Stress Test Report Date: 10/31/2022 Procedure: Pharmacologic stress nuclear imaging study Indications: Dyspnea Consent: Per the patient Procedure: The patient underwent pharmacologic (Regadenoson 0.4mg ) evaluation with a peak heart rate of 84 beats per minute (56%predicted maximal heart rate) and a peak blood pressure of 142/64 mmHg. The baseline ECG demonstrated sinus rhythm with T wave changes in anterior leads. The peak pharmacologic ECG demonstrated no diagnostic ischemic changes. There were no cardiac dysrhythmias pretest, during pharmacologic infusion, or recovery. There was no complaint of chest discomfort during pharmacologic infusion or recovery. The patient was injected with 11.6 millicuries of technetium 99m Cardiolite and subsequently rest SPECT Cardiolite nuclear imaging was obtained in the horizontal long, vertical long, and short axis views. The patient underwent pharmacologic (Regadenoson) evaluation. The patient was injected with 33.8 millicuries of technetium 99m Cardiolite and subsequently stress SPECT Cardiolite nuclear imaging was obtained in the horizontal long, vertical long, and short axis views. A gated Cardiolite study at peak stress was obtained. The examination was stopped secondary to completion of protocol. Rest and stress SPECT Cardiolite nuclear imaging status post realignment, normalization, and attenuation correction demonstrate a small reversible defect of the basal lateral wall of mild intensity. There is end systolic thickening and brightening. The gated Cardiolite study demonstrates myocardial thickening and inward wall motion. The reported LVEF is 59%. Impression: 1. Pharmacologic (Regadenoson) evaluation 2. Peak pharmacologic ECG with no diagnostic ischemic changes. 3. There were no cardiac dysrhythmias pretest, during pharmacologic infusion, or recovery. 5. Very small reversible defect of the basal lateral wall of mild intensity.. 6. The gated Cardiolite study reports an LVEF of 59%. This note was generated with [employer] software. It may contain incorrect words, spelling, and punctuation that were not noted in checking the note before signing.
--- NOTE | 2022-10-31 15:51 | CHAPLAIN ---
Type of Pastoral Visit _x__ Initial Visit ___ Follow-up Visit ___ On-call Visit ___ General Patient Visit ___ Spiritual Assessment ___ Family Conference ___ Bereavement ___ Rapid Response ___ Code Blue ___ Other (describe below) Pastoral Care Referral From _x__ Patient ___ Family ___ Nurse ___ Physician ___ Clearing Hand ___ Unix Developer ___ Other (describe below) Sacrament/Intervention _x__ Active listening ___ Anointing ___ Holiness ___ Bereavement ___ Communion ___ Flaca exploration ___ ___ Life review _x__ Prayer ___ Reconciliation ___ Sacrament of Sick _x__ Supportive presence ___ Wedding ___ Other (describe below) Pastoral Comments this patient has been seen many times in recent admissions by this medical donation professional; pt says that her heart is only minimally functioning and she looks weaker; pt responds that she is fighting and welcomes a prayer
[2022-10-31] MEDS: 0.9% Saline Lock 10 ML Syringe IV (16:01)
[2022-10-31] MEDS: Carvedilol 25 MG Tablet PO (17:19)
[2022-10-31] MEDS: Nepro with Carbsteady 237 ML Liquid 120 ML PO ×2 (18:07→22:09)
[2022-10-31] MEDS: Ipratropium/Albuterol Sulfate 3 ML AMPUL.NEB INHALATION (19:46)
[2022-10-31] MEDS: Mirtazapine 15 MG Tablet 45 MG PO (21:46)
[2022-10-31] MEDS: Montelukast 10 MG Tablet PO (21:46)
[2022-10-31] MEDS: APIXABAN 2.5 MG TABLET (WCH) PO (22:09)
[2022-11-01] VITALS (10 sets, daily range): BP systolic 115–165; BP diastolic 56–80; PULSE 67–88; RESP 16–20; TEMP 36.6–37.2; O2SAT 94–100; BMI 21.7
[2022-11-01] MEDS: Nitroglycerin Oint 1 INCH PACKET 0.5 INCH TD (06:16)
[2022-11-01] MEDS: Dicyclomine 10 MG Capsule 20 MG PO ×3 (06:18→22:26)
[2022-11-01] MEDS: Ipratropium/Albuterol Sulfate 3 ML AMPUL.NEB INHALATION ×2 (06:44→21:19)
[2022-11-01] MEDS: Budesonide Respules 0.5 MG/2 ML AMPUL.NEB. INHALATION ×2 (06:44→21:19)
[2022-11-01 07:23] LABS: Anion Gap 5 (5-15); BUN 48 mg/dL (7-18); BUN/Creat Ratio 7.2 RATIO (10-20); Calcium,Total 9.3 mg/dL (8.5-10.1); Chloride 100 mmol/L (98-107); Creatinine, Serum 6.63 mg/dL (0.55-1.02); EST Glomerular Filtration Rate 7 mL/min (>60); Est Glom Filt Rate - Afr Amer 8 mL/min (>60); Estimated Creatinine Clearance 8.25 ml/min; Glucose 125 mg/dL (74-106); Potassium 5.1 mmol/L (3.5-5.1); Sodium Level 134 mmol/L (136-145)
[2022-11-01] MEDS: Calcium Acetate 667 MG Capsule 2001 MG PO ×3 (08:42→17:01)
[2022-11-01] MEDS: DULoxetine Hcl 60 MG Capsule PO (08:42)
[2022-11-01] MEDS: Calcitriol 0.25 MCG Capsule PO (08:42)
[2022-11-01] MEDS: Vitamin B Comp W-C Capsule 1 CAP PO (08:42)
[2022-11-01] MEDS: Pantoprazole Sodium 40 MG Tablet PO ×2 (08:42→22:26)
[2022-11-01] MEDS: APIXABAN 2.5 MG TABLET (WCH) PO ×2 (08:42→22:26)
[2022-11-01] MEDS: Carvedilol 25 MG Tablet PO ×2 (08:42→17:01)
[2022-11-01] MEDS: Polyethylene Glycol 3350 17 GM PACKET PO (08:42)
[2022-11-01] MEDS: predniSONE 10 MG Tablet PO (08:43)
[2022-11-01] MEDS: Aspirin E.C. 81 MG Tablet PO (08:43)
--- NOTE | 2022-11-01 08:43 | PCM.PN.HOSP ---
Reason for Visit Reason for Visit: Diagnoses Anemia, unspecified (10/30/22) Hyperkalemia (10/30/22) Nicotine dependence, unspecified, uncomplicated (10/30/22) Essential (primary) hypertension (10/30/22) Non-ST elevation (NSTEMI) myocardial infarction (10/30/22) Paroxysmal atrial fibrillation (10/30/22) Chronic obstructive pulmonary disease, unspecified (10/30/22) End stage renal disease (10/30/22) Dyspnea, unspecified (10/30/22) Chest pain, unspecified (10/30/22) Other specified abnormalities of plasma proteins (10/30/22) Dependence on renal dialysis (10/30/22) Subjective Subjective Follow-up for chest pain, COPD, pleuritic chest pain. ESRD on hemodialysis Objective Data Objective Data Vital Signs: Vital Signs Temp Pulse Resp BP Pulse Ox O2 Del Method O2 Flow Rate 98 F 86 16 117/80 94 Nasal Cannula 3 11/01/22 02:44 11/01/22 06:44 11/01/22 06:44 11/01/22 06:16 11/01/22 06:44 11/01/22 06:44 11/01/22 06:44 Oxygen Flow Rate (L/min) 3 Oxygen Delivery Method Nasal Cannula Weight: 147 lb 4.301 oz Body Mass Index (BMI) 21.7 Intake & Output: Intake and Output for Last 24 Hours 10/30/22 10/31/22 11/01/22 23:59 23:59 23:59 Intake Total 63.73 / 63.73 841.87 / 841.87 Balance 63.73 / 63.73 841.87 / 841.87 Medical Nutrition Assessment Dietitian: Malnutrition Criteria Met Start: 10/31/22 10:14 Freq: Status: Active Protocol: Document 10/31/22 10:14 AG (Rec: 10/31/22 10:14 AG [id number]) Nutrition Malnutrition Evidence of Malnutrition Exists Yes Malnutrition (moderate): Chronic Evidenced By Suboptimal Energy Intake ( Moderate),Physical Changes ( Moderate) Clinical Problem Chronic Disease or Condition Related Malnutrition Etiology moderate, chronic malnutrition related to inadequate energy intake w/ increased energy needs d/t ESRD/HD Signs/Symptoms as evidenced by estimated PO intake meeting< 75% of estimated energy needs > 3 months; Mild muscle wasting/ fat loss evident per physical exam in orbital, clavicle, acromion, and temporal areas. Status Active Problem Recommendation Dietitian Recommendations/Changes continue cardiac diet when medically indicated; will monitor PO intake/labs and adjust diet as indicated; will order Nepro Carb Steady 120mL 4x/day w/ medpass for additional calories/protein if consumed. Will monitor PO intake and provide additional ONS as indicated. Lab / Micro Data Result Diagrams: 10/31/22 06:30 11/01/22 06:36 Labs: Laboratory Results - last 24 hr 10/31/22 10:00: APTT 53.3 H 11/01/22 06:36: Sodium 134 L, Potassium 5.1, Chloride 100, Carbon Dioxide 29.0, Anion Gap 5, BUN 48 H, Creatinine 6.63 H, Estim Creat Clear Calc 8.25, Est GFR (MDRD) Af Amer 8 L, Est GFR (MDRD) Non-Af 7 L, BUN/Creatinine Ratio 7.2 L, Glucose 125 H, Calcium 9.3 Micro: Microbiology 10/30/22 08:46 Nasal Secretion SARS-CoV-2 & FLU Antigen (Rapid) - Final Rhythm Strip Rhythm Strip: Sinus Rhythm Physical Exam Narrative Chest pain has resolved. Patient has mild chronic shortness of breath on exertion that is her baseline. She is on hemodialysis Sunday.Blood pressure is controlled. No further work-up planned. Physical exam General: Alert, Oriented x3, Cooperative HEENT: Atraumatic, PERRLA, EOMI, Normocephalic Oral: Oral mucosa dry. No Gingival or Mucosal Lesions/ Ulcerations Neck: Supple, No JVD, Negative Carotid Bruits Chest wall/lungs: No reproducible chest wall tenderness on right side. Dialysis catheter on right chest. Air entry diminished in right lung base more than left lung base. No crepitation/rhonchi. Cardiovascular: Regular rate, Regular Rhythm, Normal S1, Normal S2, systolic murmur LSB Abdomen: Bowel Sounds Present, Soft, Non Tender, Non-Distended. : On hemodialysis. No renal angle tenderness. No suprapubic tenderness. Extremities: No edema, Capillary Refill Less than 3 Seconds Skin: No rashes, No breakdown Musculoskeletal: ROM restricted over knee and hip joints. 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 Assessment & Plan Assessment/Plan (1) ESRD on hemodialysis: (2) Chest pain: (3) Dyspnea: PLAN: Plan This 72-year-old female is being admitted for further evaluation of right-sided chest pain, new EKG changes and high troponin. 1. Right-sided chest pain elevated troponin, most likely non-STEMI but other differential diagnosis right-sided pleuritic chest pain/recent thoracocentesis: Patient is being admitted in PCU. Patient on Eliquis 2.5 mg twice daily for history of paroxysmal A-fib. CHELSEA risk score 4. On 09/14 her troponin were normal. Occupational Therapist Assistant is consulted. Patient is started on aspirin 325 mg and heparin drip without bolus. It seems patient had cardiac cath in 2007 but did not require a stent at that time. Patient on carvedilol continued. 10/31: Patient had CT angiogram which did not show PE. Right [id number] pleural effusion and left small pleural effusion. She had thoracocentesis recently about 1 week ago and 220 mL was aspirated. I do not think patient has enough fluid for thoracocentesis. First troponin 278, second troponin 296 and third 1 292. Serial troponins profile shows flat and plateau like with no significant delta change. With low probability of non-STEMI and therefore nuclear stress test was ordered. Echo shows EF 50% LA severely enlarged right a moderately large. Mild inferior and inferior septal hypokinesis. Moderate TR with PASP 51 mmHg. 11/01: Stress test on 10/31 reported small reversible defect of the basal lateral wall of mild intensity. EF 59% on Cardiolite study. Discussed with the heel seat trimmer no plan for cardiac cath as patient is high risk and small reversible defect on stress test. Patient on medical management. Eliquis resumed. 2. Hyperkalemia with ESRD: Potassium 6.1 reported slight hemolysis. Patient was given insulin and D50 in ED. Esthetician And Manager Medical Spa is consulted. Patient on hemodialysis Sunday and Sunday. 10/31: Patient was dialyzed yesterday. 3. Acute on chronic HFpEF and HFrEF, present on admission, paroxysmal A-fib, mild valvular heart disease, recent right thoracocentesis : Recent echo on 10/30 as mentioned above. Patient on hemodialysis. Patient is anuric. Patient on carvedilol and aspirin. Patient not candidate for NATALIA/ARB because of ESRD on hemodialysis and hyperkalemia. Overall not good prognosis with recurrent admission. Palliative care ordered Patient had last echo in September 2020 reported EF 40% moderate TR, trivial MR mild diffuse aortic valve thickening. RVSP 44 mmHg. she had thoracocentesis on 10/26 with 220 mL of blood-tinged fluid removed. Fluid was transudate and negative for malignant cells. Hold Eliquis as patient is on IV heparin drip. 11/01: Continue medical management. 4. Chronic respiratory failure secondary to COPD: She denies change in characteristic of cough or shortness of breath does not seem to be in COPD exacerbation. Continue DuoNeb as needed. Continue home inhalers. 5. Hypertension: Blood pressure is in normal range. Hold antihypertensive medications. #Hypertension: 6. GERD: On PPI As per my discussion with?patient's next of kin, her son Mr. Jose Kaufman? and power of machine installer for health on 10/31, patient is full code and wants all possible resuscitation. Agreeable for palliative care. Echocardiogram 10/30/22 12:55 Interpretation Summary The left ventricular ejection fraction is 50 %.. Mild inferior and inferior septal hypokinesis Unable to assess diastolic dysfunction. The left atrium is severely enlarged. The right atrium is moderately enlarged. Moderate (2+) tricuspid valve insufficiency. Pulmonary artery systolic pressure is 51 mmHg. Living will/advanced directive/end of life care: Patient does not have living will or advanced directive. Her son is next to kin and power of machine installer for health. After discussion of benefits/risks procedures involved with full code, DNR CC arrest and DNR CC, the patient opted for full code. Patient does want artificial life support including intubation, tube feed, ventilator and/chest compression, central venous catheter, vasopressor and DC shock if needed Charges/Coding Visit Charges Inpatient E&M: 61038 Subs Hosp L2
[2022-11-01] MEDS: oxyCODONE 5 MG Tablet 10 MG PO ×2 (08:47→20:50)
--- NOTE | 2022-11-01 09:20 | CASEMGMT ---
SW spoke with patient about discharge plan. Patient feels she is fine to return to [facility]. [facility] is concerned that because she comes into the hospital so often she may need more care than they can provide. Patient does not feel that is true as there is nothing they can do for her. Patient said Director Shopper Marketing spoke with her and said that she is going to have these episodes and there is nothing that can be done. SW told patient therapy will see her today when she is done with dialysis to make sure she can get around okay. Patient was fine with this. MARIA GUADALUPE will talk with [facility] and let them know patient may be returning today. MARIA GUADALUPE will also send them updates. Evy Paredes ADJUNCT INSTRUCTOR OF WOM[employer] CARLOS
--- NOTE | 2022-11-01 10:43 | CASEMGMT ---
MARIA GUADALUPE called [facility] as they normally transport patient. MARIA GUADALUPE spoke with Nadya. The latest they could transport patient would be 2p. Nadya told SW to tell [facility] that [facility] is already aware of transport. MARIA GUADALUPE called [facility] and spoke with Mena. MARIA GUADALUPE requested transport for 2p via wheelchair. MARIA GUADALUPE said patient will need a wheelchair provided and will need O2-3L. MARIA GUADALUPE also told Mena that [facility] can transport and they are already aware of the request. MARIA GUADALUPE called Nadya at [facility] and let her know patient does not have oxygen at [facility]. They will go lease picker a tank first. MARIA GUADALUPE sent updates to [facility]. Bel from [facility] called MARIA GUADALUPE. Bel expressed concern with patient returning as they do not provide as much care as other assisted livings. MARIA GUADALUPE explained that SW had to set up transport as patient's insurance is difficult when it comes to setting up transport. MARIA GUADALUPE explained that MARIA GUADALUPE did set up transport for 2p. MARIA GUADALUPE will see if therapy can see patient before then and if patient does terrible the discharge can be canceled. MARIA GUADALUPE also mentioned that maybe [facility] should talk with patient's case reviewer with [facility] to see if they could move patient to another AL that can provide more care if they are uncomfortable. Evy Paredes BIODIESEL ENGINE SPECIALIST FAITH HEALER
[2022-11-01] MEDS: 0.9% Saline Lock 10 ML Syringe IV (10:48)
[2022-11-01] MEDS: HYDROmorphone 0.5 MG/0.5 ML SYRINGE IV (10:48)
--- NOTE | 2022-11-01 11:11 | CASEMGMT ---
Addendum entered by Evy Paredes 11/02/22 11:37: SW did offer patient a list of snf facilities and she declined. Evy GONZALEZ Original Note: Patient called the nurse's station and asked for SW. SW went back to patient's room. Patient asked SW about going somewhere to get more assistance. SW suggested patient go to a snf facility again for a little bit. SW will talk with her hospice case manager at [facility] to maybe check into finding another AL that might offer more assistance. SW asked patient what facility she would like to go to. Patient told SW, I don't know I am not from around here. SW reminded patient she has been to [facility] in the past and [facility]. SW wasn't sure patient was happy at [facility]. SW asked patient if she was okay at [facility]. Patient said she was okay with [facility]. SW asked patient if she would like SW to call her son and patient said yes. SW called [facility] and spoke with Bel letting her know above. SW also called [facility] and canceled transport as well as [facility]. SW notified physician as well. Evy GONZALEZ
--- NOTE | 2022-11-01 11:12 | PCM.PN.CARD ---
Subjective Subjective Continues to have right-sided pleuritic chest pain. Stress findings noted. Mild apical ischemia. Objective Data Vital Signs: Vital Signs Temp Pulse Resp BP Pulse Ox O2 Del Method O2 Flow Rate 97.9 F 68 18 122/69 H 98 Nasal Cannula 4 11/01/22 09:00 11/01/22 09:00 11/01/22 09:00 11/01/22 09:00 11/01/22 09:00 11/01/22 09:00 11/01/22 09:00 Oxygen Flow Rate (L/min) 4 Oxygen Delivery Method Nasal Cannula Weight: 147 lb 4.301 oz Body Mass Index (BMI) 21.7 Intake & Output: Intake and Output for Last 24 Hours 10/30/22 10/31/22 11/01/22 23:59 23:59 23:59 Intake Total 63.73 / 63.73 841.87 / 841.87 Balance 63.73 / 63.73 841.87 / 841.87 Lab / Micro Data Result Diagrams: 10/31/22 06:30 11/01/22 06:36 Labs: Laboratory Results - last 24 hr 11/01/22 06:36: Sodium 134 L, Potassium 5.1, Chloride 100, Carbon Dioxide 29.0, Anion Gap 5, BUN 48 H, Creatinine 6.63 H, Estim Creat Clear Calc 8.25, Est GFR (MDRD) Af Amer 8 L, Est GFR (MDRD) Non-Af 7 L, BUN/Creatinine Ratio 7.2 L, Glucose 125 H, Calcium 9.3 Rhythm Strip Rhythm Strip: Sinus Rhythm Cardiology Labs/Tests 11/01/22 06:36: Sodium 134 L, Potassium 5.1, Chloride 100, Carbon Dioxide 29.0, Anion Gap 5, BUN 48 H, Creatinine 6.63 H, Est GFR (MDRD) Af Amer 8 L, Est GFR (MDRD) Non-Af 7 L, BUN/Creatinine Ratio 7.2 L, Glucose 125 H, Calcium 9.3 Rhythm: EKG: ECHO: Stress Test: Cardiac Cath: PCI: CT Surgery: Holter monitor: EPS: PPM: CXR: Chest CT Scan: Physical Exam Narrative No carotid bruits. Heart sounds 1 and 2 are noted. 2/6 systolic murmur at base. Chest examination shows markedly decreased breath sounds by laterally. Abdomen soft. No ankle edema noted. Assessment & Plan Assessment/Plan (1) Elevated troponin: PLAN: Likely type II elevation. Stress test only minimal ischemia. For medical management given patient's overall comorbid conditions. Continue beta-blockers. Start on amlodipine. (2) Chest pain: PLAN: Chest pain is atypical. Right-sided. Pleuritic. Recent right-sided thoracentesis. Follow as per pulmonology and internal medicine. (3) AF (paroxysmal atrial fibrillation): PLAN: Presently normal sinus rhythm. On Eliquis at home. (4) End-stage renal disease on hemodialysis: PLAN: As per nephrology. 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 Treated with heater probe's. Hemoglobin stable lately. (6) HTN (hypertension): QUALIFIERS: Hypertension type: essential hypertension Qualified Code(s): I10 - Essential (primary) hypertension PLAN: Controlled. (7) COPD (chronic obstructive pulmonary disease): PLAN: As per pulmonology/internal medicine. (8) Nicotine dependence: PLAN: Quit smoking.
--- NOTE | 2022-11-01 11:29 | PCM.PN.REN ---
Subjective Subjective No new events Objective Data Objective Data Vital Signs: Vital Signs Temp Pulse Resp BP Pulse Ox O2 Del Method O2 Flow Rate 97.9 F 68 18 122/69 H 98 Nasal Cannula 4 11/01/22 09:00 11/01/22 09:00 11/01/22 09:00 11/01/22 09:00 11/01/22 09:00 11/01/22 09:00 11/01/22 09:00 Oxygen Flow Rate (L/min) 4 Oxygen Delivery Method Nasal Cannula Weight: 66.8 kg Body Mass Index (BMI) 21.7 Intake & Output: Intake and Output for Last 24 Hours 10/30/22 10/31/22 11/01/22 23:59 23:59 23:59 Intake Total 63.73 / 63.73 841.87 / 841.87 Balance 63.73 / 63.73 841.87 / 841.87 Medical Nutrition Assessment Dietitian: Malnutrition Criteria Met Start: 10/31/22 10:14 Freq: Status: Active Protocol: Document 10/31/22 10:14 AG (Rec: 10/31/22 10:14 AG [id number]) Nutrition Malnutrition Evidence of Malnutrition Exists Yes Malnutrition (moderate): Chronic Evidenced By Suboptimal Energy Intake ( Moderate),Physical Changes ( Moderate) Clinical Problem Chronic Disease or Condition Related Malnutrition Etiology moderate, chronic malnutrition related to inadequate energy intake w/ increased energy needs d/t ESRD/HD Signs/Symptoms as evidenced by estimated PO intake meeting< 75% of estimated energy needs > 3 months; Mild muscle wasting/ fat loss evident per physical exam in orbital, clavicle, acromion, and temporal areas. Status Active Problem Recommendation Dietitian Recommendations/Changes continue cardiac diet when medically indicated; will monitor PO intake/labs and adjust diet as indicated; will order Nepro Carb Steady 120mL 4x/day w/ medpass for additional calories/protein if consumed. Will monitor PO intake and provide additional ONS as indicated. Lab / Micro Data Result Diagrams: 10/31/22 06:30 11/01/22 06:36 Labs: Laboratory Results - last 24 hr 11/01/22 06:36: Sodium 134 L, Potassium 5.1, Chloride 100, Carbon Dioxide 29.0, Anion Gap 5, BUN 48 H, Creatinine 6.63 H, Estim Creat Clear Calc 8.25, Est GFR (MDRD) Af Amer 8 L, Est GFR (MDRD) Non-Af 7 L, BUN/Creatinine Ratio 7.2 L, Glucose 125 H, Calcium 9.3 Micro: Microbiology 10/30/22 08:46 Nasal Secretion SARS-CoV-2 & FLU Antigen (Rapid) - Final Rhythm Strip Rhythm Strip: Sinus Rhythm Physical Exam Narrative Alert and oriented, no apparent distress S1, S2, RRR Lung sounds clear anteriorly diminished breath sounds bilateral posterior bases. Faint expiratory wheezing noted Abdomen soft, nontender No edema noted bilateral lower legs, feet or arms Tunneled HD catheter dressing clean, dry and intact Assessment & Plan Assessment/Plan (1) ESRD on hemodialysis: (2) Chest pain: (3) Dyspnea: PLAN: Plan ESRD. Seen on dialysis today. Crit-Line is still flat. Fluid removal as tolerated. Possible discharge after dialysis today.
--- NOTE | 2022-11-01 11:50 | CASEMGMT ---
MARIA GUADALUPE called patient's son Jose. MARIA GUADALUPE explained to Jose about Kavon's concerns with caring for patient. MARIA GUADALUPE also discussed patient's weakness. MARIA GUADALUPE explained patient is not at her baseline right now. MARIA GUADALUPE told Jose patient only walked 3 feet yesterday and she normally is able to do 30-40 feet. SW mentioned which SNF and that patient was okay with [facility]. Jose's voice sounded as though he was irritated. Jose asked MARIA GUADALUPE who is saying patient needs to go to a half-way and is it mandatory and MARIA GUADALUPE told Jose it is not. MARIA GUADALUPE explained that if [facility] does not feel like they can take care of patient then she should not return. Jose said he does not care about what [facility] says. Jose said he will call patient. Evy GONZALEZ
--- NOTE | 2022-11-01 12:19 | DIALYSIS ---
Hemodialysis treatment x 3.5 hours, net UF 2000 ml, VSS. Blood returned to patient, catheter ports closed with heparin. RN report at bedside.
[2022-11-01] MEDS: Heparin 10,000 UNITS/10 ML Vial IV (12:35)
[2022-11-01] MEDS: Gabapentin 600 MG Tablet PO (12:40)
[2022-11-01] MEDS: Midodrine HCl 5 MG Tablet 10 MG PO (12:40)
[2022-11-01] MEDS: amLODIPine 2.5 MG Tablet PO (12:40)
--- NOTE | 2022-11-01 12:55 | CASEMGMT ---
Discharge Planning Referral sent to [facility] via [facility] per patient request. Adele Roman
[2022-11-01] MEDS: Nepro with Carbsteady 237 ML Liquid 120 ML PO ×2 (13:36→17:01)
--- NOTE | 2022-11-01 14:25 | CASEMGMT ---
MARIA GUADALUPE called [facility] and left a message for the coverage line requesting a return call. Evy Paredes SUBWAY OPERATOR CARLOS
--- NOTE | 2022-11-01 14:52 | CASEMGMT ---
[facility] accepted patient and they started the pre-cert. Plan: d/c to [facility] pending insurance approval. Evy GONZALEZ
[2022-11-01] MEDS: Mirtazapine 15 MG Tablet 45 MG PO (22:25)
[2022-11-01] MEDS: Montelukast 10 MG Tablet PO (22:26)
[2022-11-02] VITALS (11 sets, daily range): BP systolic 147–155; BP diastolic 60–72; PULSE 62–71; RESP 16–21; TEMP 36.6–37.4; O2SAT 91–100; BMI 20.9
[2022-11-02] MEDS: 0.9% Saline Lock 10 ML Syringe IV ×3 (00:07→22:32)
[2022-11-02] MEDS: hydrALAZINE 20 MG/ML Vial 10 MG IV (00:07)
[2022-11-02] MEDS: Dicyclomine 10 MG Capsule 20 MG PO ×3 (06:26→22:31)
[2022-11-02] MEDS: amLODIPine 2.5 MG Tablet PO ×2 (08:19→11:18)
[2022-11-02] MEDS: Calcium Acetate 667 MG Capsule 2001 MG PO ×3 (08:20→17:21)
[2022-11-02] MEDS: predniSONE 10 MG Tablet PO (08:20)
[2022-11-02] MEDS: APIXABAN 2.5 MG TABLET (WCH) PO ×2 (08:20→22:32)
[2022-11-02] MEDS: Polyethylene Glycol 3350 17 GM PACKET PO (08:20)
[2022-11-02] MEDS: DULoxetine Hcl 60 MG Capsule PO (08:21)
[2022-11-02] MEDS: Carvedilol 25 MG Tablet PO ×2 (08:21→17:20)
[2022-11-02] MEDS: Pantoprazole Sodium 40 MG Tablet PO ×2 (08:21→22:32)
[2022-11-02] MEDS: Vitamin B Comp W-C Capsule 1 CAP PO (08:22)
[2022-11-02] MEDS: Aspirin E.C. 81 MG Tablet PO (08:26)
[2022-11-02] MEDS: Senna/Docusate Sodium 1 Tablet 2 TABLET PO (08:35)
[2022-11-02] MEDS: oxyCODONE 5 MG Tablet 10 MG PO ×2 (08:35→22:32)
--- NOTE | 2022-11-02 10:48 | PCM.PN.CARD ---
Subjective Subjective Continues to complain of pleuritic chest pain. Per her, the pain is only there with deep breathing. Objective Data Vital Signs: Vital Signs Temp Pulse Resp BP Pulse Ox O2 Del Method O2 Flow Rate 99.4 F H 65 20 H 153/72 H 100 Nasal Cannula 4 11/02/22 08:10 11/02/22 08:10 11/02/22 08:10 11/02/22 08:10 11/02/22 08:10 11/02/22 08:10 11/02/22 03:38 Oxygen Flow Rate (L/min) 4 Oxygen Delivery Method Nasal Cannula Weight: 141 lb 15.643 oz Body Mass Index (BMI) 20.9 Intake & Output: Intake and Output for Last 24 Hours 10/31/22 11/01/22 11/02/22 23:59 23:59 23:59 Intake Total 841.87 / 841.87 960 / 960 Balance 841.87 / 841.87 960 / 960 Lab / Micro Data Result Diagrams: 10/31/22 06:30 11/01/22 06:36 Rhythm Strip Rhythm Strip: Sinus Rhythm Cardiology Labs/Tests Rhythm: EKG: ECHO: Stress Test: Cardiac Cath: PCI: CT Surgery: Holter monitor: EPS: PPM: CXR: Chest CT Scan: Physical Exam Narrative No carotid bruits. Heart sounds 1 and 2 are noted. 2/6 systolic murmur at base. Chest examination shows markedly decreased breath sounds by laterally. Abdomen soft. No ankle edema noted. Assessment & Plan Assessment/Plan (1) Elevated troponin: PLAN: Likely type II elevation. Stress test only minimal ischemia. For medical management given patient's overall comorbid conditions. Continue beta-blockers. Start on amlodipine. (2) Chest pain: PLAN: Chest pain is atypical. Right-sided. Pleuritic. Recent right-sided thoracentesis. Consider pleuritis. Follow as per pulmonology and internal medicine. (3) AF (paroxysmal atrial fibrillation): PLAN: Presently normal sinus rhythm. On Eliquis at home. (4) End-stage renal disease on hemodialysis: PLAN: As per nephrology. 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 Treated with heater probe's. Hemoglobin stable lately. (6) HTN (hypertension): QUALIFIERS: Hypertension type: essential hypertension Qualified Code(s): I10 - Essential (primary) hypertension PLAN: Blood pressure elevated. Decrease midodrine. Increase amlodipine. (7) COPD (chronic obstructive pulmonary disease): PLAN: As per pulmonology/internal medicine. (8) Nicotine dependence: PLAN: Quit smoking.
[2022-11-02] MEDS: Albuterol 2.5 MG/3 ML VIAL.NEB. INHALATION (11:06)
[2022-11-02] MEDS: Gabapentin 300 MG Capsule PO (11:17)
--- NOTE | 2022-11-02 11:46 | CASEMGMT ---
MARIA GUADALUPE called [facility] and patient's shelter case manager is Alexsandra Campos ([phone]). MARIA GUADALUPE called Alexsandra and asked her to call MARIA GUADALUPE back. Evy GONZALEZ
--- NOTE | 2022-11-02 14:54 | PN.HOSP_ITS ---
Reason for Visit Reason for Visit: Diagnoses Anemia, unspecified (10/30/22) Hyperkalemia (10/30/22) Nicotine dependence, unspecified, uncomplicated (10/30/22) Essential (primary) hypertension (10/30/22) Non-ST elevation (NSTEMI) myocardial infarction (10/30/22) Paroxysmal atrial fibrillation (10/30/22) Chronic obstructive pulmonary disease, unspecified (10/30/22) End stage renal disease (10/30/22) Dyspnea, unspecified (10/30/22) Chest pain, unspecified (10/30/22) Other specified abnormalities of plasma proteins (10/30/22) Dependence on renal dialysis (10/30/22) Subjective Subjective Follow-up for multiple comorbidities including COPD, shortness of breath on exertion and decreased physical capacity. Patient will go to SNF. Objective Data Objective Data Vital Signs: Vital Signs Temp Pulse Resp BP Pulse Ox O2 Del Method O2 Flow Rate 98.3 F 62 18 152/60 H 91 Nasal Cannula 4 11/02/22 11:21 11/02/22 11:21 11/02/22 11:21 11/02/22 11:21 11/02/22 12:01 11/02/22 11:21 11/02/22 12:01 Oxygen Flow Rate (L/min) 4 Oxygen Delivery Method Nasal Cannula Weight: 141 lb 15.643 oz Body Mass Index (BMI) 20.9 Intake & Output: Intake and Output for Last 24 Hours 10/31/22 11/01/22 11/02/22 23:59 23:59 23:59 Intake Total 841.87 / 841.87 960 / 960 240 / 240 Balance 841.87 / 841.87 960 / 960 240 / 240 Medical Nutrition Assessment Dietitian: Malnutrition Criteria Met Start: 10/31/22 10:14 Freq: Status: Active Protocol: Document 10/31/22 10:14 AG (Rec: 10/31/22 10:14 AG [id number]) Nutrition Malnutrition Evidence of Malnutrition Exists Yes Malnutrition (moderate): Chronic Evidenced By Suboptimal Energy Intake ( Moderate),Physical Changes ( Moderate) Clinical Problem Chronic Disease or Condition Related Malnutrition Etiology moderate, chronic malnutrition related to inadequate energy intake w/ increased energy needs d/t ESRD/HD Signs/Symptoms as evidenced by estimated PO intake meeting< 75% of estimated energy needs > 3 months; Mild muscle wasting/ fat loss evident per physical exam in orbital, clavicle, acromion, and temporal areas. Status Active Problem Recommendation Dietitian Recommendations/Changes continue cardiac diet when medically indicated; will monitor PO intake/labs and adjust diet as indicated; will order Nepro Carb Steady 120mL 4x/day w/ medpass for additional calories/protein if consumed. Will monitor PO intake and provide additional ONS as indicated. Lab / Micro Data Result Diagrams: 10/31/22 06:30 11/01/22 06:36 Micro: Microbiology 10/30/22 08:46 Nasal Secretion SARS-CoV-2 & FLU Antigen (Rapid) - Final Rhythm Strip Rhythm Strip: Sinus Rhythm Physical Exam Narrative Chest pain has resolved. Patient has mild chronic shortness of breath on exertion that is her baseline. She is on hemodialysis Sunday.Blood pressure is controlled. No further work-up planned. Physical exam General: Alert, Oriented x3, Cooperative HEENT: Atraumatic, PERRLA, EOMI, Normocephalic Oral: Oral mucosa dry. No Gingival or Mucosal Lesions/ Ulcerations Neck: Supple, No JVD, Negative Carotid Bruits. Dialysis catheter on right chest. Chest wall/lungs: No reproducible chest wall tenderness. Air entry diminished in right lung base more than left lung base. No crepitation/rhonchi. Cardiovascular: Regular rate, Regular Rhythm, Normal S1, Normal S2, systolic murmur LSB Abdomen: Bowel Sounds Present, Soft, Non Tender, Non-Distended. : On hemodialysis. No renal angle tenderness. No suprapubic tenderness. Extremities: No edema, Capillary Refill Less than 3 Seconds Skin: No rashes, No breakdown Musculoskeletal: ROM restricted over knee and hip joints. 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 Assessment & Plan Assessment/Plan (1) ESRD on hemodialysis: (2) Chest pain: (3) Dyspnea: PLAN: Plan This 72-year-old female is being admitted for further evaluation of right-sided chest pain, new EKG changes and high troponin. 1. Right-sided chest pain elevated troponin, most likely non-STEMI but other differential diagnosis right-sided pleuritic chest pain/recent thoracocentesis: Patient is being admitted in PCU. Patient on Eliquis 2.5 mg twice daily for his tory of paroxysmal A-fib. CHELSEA risk score 4. On 09/14 her troponin were normal. Chief Dispatcher is consulted. Patient is started on aspirin 325 mg and heparin drip without bolus. It seems patient had cardiac cath in 2007 but did not require a stent at that time. Patient on carvedilol continued. 10/31: Patient had CT angiogram which did not show PE. Right [id number] pleural effusion and left small pleural effusion. She had thoracocentesis recently about 1 week ago and 220 mL was aspirated. I do not think patient has enough fluid for thoracocentesis. First troponin 278, second troponin 296 and third 1 292. Serial troponins profile shows flat and plateau like with no significant delta change. With low probability of non-STEMI and therefore nuclear stress test was ordered. Echo shows EF 50% LA severely enlarged right a moderately large. Mild inferior and inferior septal hypokinesis. Moderate TR with PASP 51 mmHg. 11/01: Stress test on 10/31 reported small reversible defect of the basal lateral wall of mild intensity. EF 59% on Cardiolite study. Discussed with the metrologist no plan for cardiac cath as patient is high risk and small reversible defect on stress test. Patient on medical management. Eliquis resumed. 11/02: Work-up is complete. Pending pre-CERT for SNF discharge. 2. Hyperkalemia with ESRD: Potassium 6.1 reported slight hemolysis. Patient was given insulin and D50 in ED. [facility] Monitor is consulted. Patient on hemodialysis Sunday and Sunday. 10/31: Patient was dialyzed yesterday. 3. Acute on chronic HFpEF and HFrEF, present on admission, paroxysmal A-fib, mild valvular heart disease, recent right thoracocentesis : Recent echo on 10/30 a s mentioned above. Patient on hemodialysis. Patient is anuric. Patient on carvedilol and aspirin. Patient not candidate for NATALIA/ARB because of ESRD on hemodialysis and hyperkalemia. Overall not good prognosis with recurrent admission. Palliative care ordered Patient had last echo in September 2020 reported EF 40% moderate TR, trivial MR mild diffuse aortic valve thickening. RVSP 44 mmHg. she had thoracocentesis on 10/26 with 220 mL of blood-tinged fluid removed. Fluid was transudate and negative for malignant cells. Hold Eliquis as patient is on IV heparin drip. 11/01: Continue medical management. 4. Chronic respiratory failure secondary to COPD: She denies change in characteristic of cough or shortness of breath does not seem to be in COPD exacerbation. Continue DuoNeb as needed. Continue home inhalers. 5. Hypertension: Blood pressure is in normal range. Hold antihypertensive medications. #Hypertension: 6. GERD: On PPI As per my discussion with?patient's next of kin, her son Mr. Jose Kaufman? and power of sports attorney for health on 10/31, patient is full code and wants all possible resuscitation. Agreeable for palliative care. Echocardiogram 10/30/22 12:55 Interpretation Summary The left ventricular ejection fraction is 50 %.. Mild inferior and inferior septal hypokinesis Unable to assess diastolic dysfunction. The left atrium is severely enlarged. The right atrium is moderately enlarged. Moderate (2+) tricuspid valve insufficiency. Pulmonary artery systolic pressure is 51 mmHg. Living will/advanced directive/end of life care: Patient does not have living will or advanced directive. Her son is next to kin and power of sports attorney for [facility]. After discussion of benefits/risks procedures involved with full code, DNR CC arrest and DNR CC, the patient opted for full code. Patient does want artificial life support including intubation, tube feed, ventilator and/chest compression, central venous catheter, vasopressor and DC shock if needed Charges/Coding Visit Charges Inpatient E&M: 42028 Subs Hosp L2
[2022-11-02] MEDS: Ascorbic Acid 500 MG Tablet PO (17:33)
[2022-11-02] MEDS: Ferrous Sulfate 325 MG Tablet PO (17:33)
[2022-11-02] MEDS: Ipratropium/Albuterol Sulfate 3 ML AMPUL.NEB INHALATION (19:13)
[2022-11-02] MEDS: Budesonide Respules 0.5 MG/2 ML AMPUL.NEB. INHALATION (19:13)
--- NOTE | 2022-11-02 21:45 | PCM.PN.REN ---
Subjective Subjective no new events Objective Data Objective Data Vital Signs: Vital Signs Temp Pulse Resp BP Pulse Ox O2 Del Method O2 Flow Rate 98.2 F 64 21 H 154/65 H 100 Nasal Cannula 4 11/02/22 17:00 11/02/22 19:14 11/02/22 19:14 11/02/22 17:00 11/02/22 17:00 11/02/22 17:00 11/02/22 17:00 Oxygen Flow Rate (L/min) 4 Oxygen Delivery Method Nasal Cannula Weight: 64.4 kg Body Mass Index (BMI) 20.9 Intake & Output: Intake and Output for Last 24 Hours 10/31/22 11/01/22 11/02/22 23:59 23:59 23:59 Intake Total 841.87 / 841.87 960 / 960 480 / 480 Balance 841.87 / 841.87 960 / 960 480 / 480 Medical Nutrition Assessment Dietitian: Malnutrition Criteria Met Start: 10/31/22 10:14 Freq: Status: Active Protocol: Document 10/31/22 10:14 AG (Rec: 10/31/22 10:14 [id number]) Nutrition Malnutrition Evidence of Malnutrition Exists Yes Malnutrition (moderate): Chronic Evidenced By Suboptimal Energy Intake ( Moderate),Physical Changes ( Moderate) Clinical Problem Chronic Disease or Condition Related Malnutrition Etiology moderate, chronic malnutrition related to inadequate energy intake w/ increased energy needs d/t ESRD/HD Signs/Symptoms as evidenced by estimated PO intake meeting< 75% of estimated energy needs > 3 months; Mild muscle wasting/ fat loss evident per physical exam in orbital, clavicle, acromion, and temporal areas. Status Active Problem Recommendation Dietitian Recommendations/Changes continue cardiac diet when medically indicated; will monitor PO intake/labs and adjust diet as indicated; will order Nepro Carb Steady 120mL 4x/day w/ medpass for additional calories/protein if consumed. Will monitor PO intake and provide additional ONS as indicated. Lab / Micro Data Result Diagrams: 10/31/22 06:30 11/01/22 06:36 Micro: Microbiology 10/30/22 08:46 Nasal Secretion SARS-CoV-2 & FLU Antigen (Rapid) - Final Rhythm Strip Rhythm Strip: Sinus Rhythm Physical Exam Narrative Alert and oriented, no apparent distress S1, S2, RRR Lung sounds clear anteriorly diminished breath sounds bilateral posterior bases. Faint expiratory wheezing noted Abdomen soft, nontender No edema noted bilateral lower legs, feet or arms Tunneled HD catheter dressing clean, dry and intact Assessment & Plan Assessment/Plan (1) ESRD on hemodialysis: (2) Chest pain: (3) Dyspnea: PLAN: Plan ESRD. HD MWF schedule. next HD tomorrow cardiology note reviewed.
[2022-11-02] MEDS: Mirtazapine 15 MG Tablet 45 MG PO (22:31)
[2022-11-02] MEDS: Montelukast 10 MG Tablet PO (22:32)
[2022-11-03 03:51] VITALS: BP 141/58; PULSE 60; RESP 17; TEMP 36.9; O2SAT 99
[2022-11-03 03:52] VITALS: BP 141/58; PULSE 60; RESP 17; TEMP 36.9; O2SAT 99
[2022-11-03 04:35] VITALS: PULSE 61; RESP 18; O2SAT 100
[2022-11-03] MEDS: Dicyclomine 10 MG Capsule 20 MG PO (05:27)
[2022-11-03 05:33] VITALS: BMI 21.0
[2022-11-03 07:12] VITALS: PULSE 69; RESP 20; O2SAT 96
[2022-11-03] MEDS: Budesonide Respules 0.5 MG/2 ML AMPUL.NEB. INHALATION (07:12)
[2022-11-03] MEDS: Ipratropium/Albuterol Sulfate 3 ML AMPUL.NEB INHALATION (07:13)
--- NOTE | 2022-11-03 08:01 | TREXTCAR_ITS ---
Diet Diet Order/Speech Therapy: 10/31/22 15:57 Diet: Cardiac - Heart Healthy Is pt able to select menu?: Yes Routine Orders/Code Status Suppository Type: Dulcolax 10mg Suppository Frequency: Daily PRN Routine Lab Work: [facility] Code Status: Full Code Therapies Weight Bearing: Weight bearing as tolerated Extremity Affected:: Bilateral Lower Physical Therapy: Eval and Treat Occupational Therapy: Eval and Treat Speech Therapy: Eval and Treat Problem/Diagnosis (1) ESRD on hemodialysis: Status: Acute Code(s): N18.6 - End stage renal disease; Z99.2 - Dependence on renal dialysis (2) Chest pain: Status: Acute Code(s): R07.9 - Chest pain, unspecified (3) Dyspnea: Status: Acute Code(s): R06.00 - Dyspnea, unspecified Plan This 72-year-old female is being admitted for further evaluation of right-sided chest pain, new EKG changes and high troponin. 1. Right-sided chest pain elevated troponin, most likely non-STEMI but other differential diagnosis right-sided pleuritic chest pain/recent thoracocentesis: Patient is being admitted in PCU. Patient on Eliquis 2.5 mg twice daily for history of paroxysmal A-fib. CHELSEA risk score 4. On 09/14 her troponin were normal. Dusting And Brushing Machine Operator is consulted. Patient is started on aspirin 325 mg and heparin drip without bolus. It seems patient had cardiac cath in 2007 but did not require a stent at that time. Patient on carvedilol continued. 10/31: Patient had CT angiogram which did not show PE. Right wwekh-[id number] pleural effusion and left small pleural effusion. She had thoracocentesis recently about 1 week ago and 220 mL was aspirated. I do not think patient has enough fluid for thoracocentesis. First troponin 278, second troponin 296 and third 1 292. Serial troponins profile shows flat and plateau like with no significant delta change. With low probability of non-STEMI and therefore nuclear stress test was ordered. Echo shows EF 50% LA severely enlarged right a moderately large. Mild inferior and inferior septal hypokinesis. Moderate TR with PASP 51 mmHg. 2. Hyperkalemia with ESRD: Potassium 6.1 reported slight hemolysis. Patient was given insulin and D50 in ED. Medical Screener is consulted. Patient on hemodialysis Sunday and Sunday. 10/31: Patient was dialyzed yesterday. 3. Acute on chronic HFpEF and HFrEF, present on admission, paroxysmal A-fib, mild valvular heart disease, recent right thoracocentesis : Recent echo on 10/30 as mentioned above. Patient on hemodialysis. Patient is anuric. Patient on carvedilol and aspirin. Patient not candidate for NATALIA/ARB because of ESRD on hemodialysis and hyperkalemia. Overall not good prognosis with recurrent admission. Palliative care ordered Patient had last echo in September 2020 reported EF 40% moderate TR, trivial MR mild diffuse aortic valve thickening. RVSP 44 mmHg. she had thoracocentesis on 10/26 with 220 mL of blood-tinged fluid removed. Fluid was transudate and negative for malignant cells. Hold Eliquis as patient is on IV heparin drip. 4. Chronic respiratory failure secondary to COPD: She denies change in characteristic of cough or shortness of breath does not seem to be in COPD exacerbation. Continue DuoNeb as needed. Continue home inhalers. 5. Hypertension: Blood pressure is in normal range. Hold antihypertensive medications. #Hypertension: 6. GERD: On PPI Clinical Impression(s) from Imaging Studies Chest X-Ray 10/30/22 08:39 IMPRESSION: Increasing pleural-parenchymal changes in the right hemithorax. Electronically Signed: Lopez Barraza MD at 9:34 EDT , Chest CTA 10/30/22 12:53 IMPRESSION: 1. No evidence of pulmonary embolus. 2. No aortic dissection or aneurysm. 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 4. Cardiomegaly. 5. Bilateral pleural effusions, right greater than left. Electronically Signed: Giuseppe Malone DO at 22:48 EDT , Echocardiogram 10/30/22 12:55 Interpretation Summary The left ventricular ejection fraction is 50 %.. Mild inferior and inferior septal hypokinesis Unable to assess diastolic dysfunction. The left atrium is severely enlarged. The right atrium is moderately enlarged. Moderate (2+) tricuspid valve insufficiency. Pulmonary artery systolic pressure is 51 mmHg. Ordering Physician: Kip White Performed By: Adelso Brewer RCS Living will/advanced directive/end of life care: Patient does not have living will or advanced directive. Her son is next to kin and power of workers compensation defense attorney for health. After discussion of benefits/risks procedures involved with full code, DNR CC arrest and DNR CC, the patient opted for full code. Patient does want artificial life support including intubation, tube feed, ventilator and/chest compression, central venous catheter, vasopressor and DC shock if needed Allergies/Procedures Done in Hospital Allergies No Known Allergies Allergy (Verified 10/30/22 08:08) Type of Care/Length of Stay Estimated LOS: Convalescent Care Less Than 30 days Type of Care Needed: Skilled Rehab Potential: Good Prognosis: Good Additional Orders/Day of Discharge Day of Discharge: 11/03/22 Dietary and Speech Recommendations Dietitian Recommendations/Changes: continue cardiac diet when medically indicated; will monitor PO intake/labs and adjust diet as indicated; will order Nepro Carb Steady 120mL 4x/day w/ medpass for additional calories/protein if consumed. Will monitor PO intake and provide additional ONS as indicated. Discharge Plan Admission Admit Date/Time: 10/30/22 10:35 Primary Reason for Your Visit: Right-sided chest pain, ACS ruled out. Multiple comorbidity Attending Provider: Deandre Langford Primary Care Provider: Yen Valdez INTERCELL CONNECTOR PLACER Consulting Providers: Kip White ; Soraida Sears Discharge Orders/Prescriptions Prescriptions: New sennosides-docusate sodium [Stool Softener-Stimulant Laxat] 8.6-50 mg Tablet 2 tab PO BID PRN PRN (Reason: Constipation) Qty: 0 0RF aspirin 81 mg Tablet,Delayed Release (Dr/Ec) 81 mg PO BREAKFAST Qty: 0 0RF nicotine 14 mg/24 hr Patch 24 Hour 14 mg transdermal DAILY 30 Days Qty: 28 0RF amlodipine 5 mg Tablet 5 mg PO DAILY 30 Days Qty: 0 0RF ferrous sulfate [FeroSul] 325 mg (65 mg iron) Tablet 325 mg PO QODAY@1700 Qty: 0 0RF Continued calcium acetate(phosphat bind) 667 mg Capsule 2,001 mg PO TIDCM mirtazapine 45 mg Tablet 45 mg PO QHS Eliquis 2.5 mg Tablet 2.5 mg PO BID Hold Instructions: Resume on 07/22/22. dicyclomine 20 mg tablet 20 mg PO TID Label Comments: Take 1 tablet by mouth three times daily before meals. gabapentin 600 mg tablet 600 mg PO MOWEFR Label Comments: 1 TABLET BY MOUTH (3P-6P AFTER DIALYSIS) DX: gabapentin 300 mg capsule 300 mg PO SUTUTHSA Label Comments: 1 CAPSULE BY MOUTH (3P-6P) DX:E montelukast [Singulair] 10 mg Tablet 10 mg PO QHS midodrine 10 mg tablet 10 mg PO MOWEFR fluticasone propion-salmeterol [Advair Diskus] 500-50 mcg/dose Blister With Device 1 inh INHALATION BID Spiriva Respimat 2.5 mcg/actuation Mist 2 puff INHALATION DAILY duloxetine 60 mg capsule,delayed release(DR/EC) 60 mg PO DAILY polyethylene glycol 3350 [Miralax] 17 gram/dose powder 17 g PO DAILY albuterol sulfate 2.5 mg /3 mL (0.083 %) Solution For Nebulization 2.5 mg inhalation Q2H PRN PRN (Reason: SOB/Wheezing) 30 Days Qty: 90 1RF acetaminophen [Tylenol] 325 mg Tablet 650 mg PO Q6H PRN PRN (Reason: Pain 1-10 Or Fever >100.7) Qty: 0 0RF carvedilol 25 mg tablet 25 mg PO BID pantoprazole 40 mg tablet,delayed release (DR/EC) 40 mg PO BID oxycodone 10 mg Tablet 10 mg PO BID PRN (Reason: break through pain) prednisone 10 mg Tablet 10 mg PO DAILY Lizabeth-Eliza 0.8 mg Tablet 1 tab PO DAILY calcitriol 0.25 mcg capsule 0.25 mcg PO Label Comments: Take 1 capsule by mouth three times a week on Sunday, Sunday, and Sunday Changed hydralazine 100 MG tablet 50 mg PO TID 30 Days Qty: 0 0RF Rx Instructions: Hold for SBP less than 130 mmHg albuterol sulfate 90 mcg/actuation HFA aerosol inhaler 2 puff inhalation Q6H PRN (Reason: SOB) 30 Days Qty: 0 0RF Discontinued amlodipine 10 mg Tablet 10 mg PO DAILY Referrals / Follow Up: Kip White MD [Med Staff - Active Staff] - Within 1 Month Steven Hollins DO [Med Staff - Active Staff] - Within 1 Month Soraida Sears MD [Med Staff - Consulting] - Within 1 Month Yen Valdez INTERCELL CONNECTOR PLACER, INTERCELL CONNECTOR PLACER-C [Primary Care Provider] - Disposition Disposition (needs filled in before D/C Order can be placed): [facility]
[2022-11-03 08:14] VITALS: BP 151/67; PULSE 60; RESP 18; TEMP 36.7; O2SAT 98
[2022-11-03] MEDS: oxyCODONE 5 MG Tablet 10 MG PO (08:17)
[2022-11-03] MEDS: Calcium Acetate 667 MG Capsule 2001 MG PO (08:18)
[2022-11-03] MEDS: amLODIPine 5 MG Tablet PO (08:18)
[2022-11-03] MEDS: DULoxetine Hcl 60 MG Capsule PO (08:18)
[2022-11-03] MEDS: APIXABAN 2.5 MG TABLET (WCH) PO (08:18)
[2022-11-03] MEDS: Pantoprazole Sodium 40 MG Tablet PO (08:18)
[2022-11-03] MEDS: Polyethylene Glycol 3350 17 GM PACKET PO (08:19)
[2022-11-03] MEDS: Aspirin E.C. 81 MG Tablet PO (08:19)
[2022-11-03] MEDS: Vitamin B Comp W-C Capsule 1 CAP PO (08:19)
[2022-11-03] MEDS: Ascorbic Acid 500 MG Tablet PO (08:19)
[2022-11-03] MEDS: predniSONE 10 MG Tablet PO (08:19)
[2022-11-03] MEDS: Carvedilol 25 MG Tablet PO (08:21)
--- NOTE | 2022-11-03 08:51 | DS.PCM_ITS ---
Providers Date of Admission: 10/30/22 Date of Discharge: 11/03/22 Primary Care Physician: Yen Valdez, EMEKA-Crystal Consultations 10/30/22 11:12 Consult: Cardiology Routine Consulting Provider: Kip White Reason for Consult: NSTEMI? CHEST PAIN EMERGENT Consult: No Notified: Yes Date Notified: 10/30/22 Time Notified: 11:12 Method of Notification: Text 10/30/22 13:29 Consult: Nephrology Routine Consulting Provider: Soraida Sears Reason for Consult: ESRD on HD, M,W,D EMERGENT Consult: No MD Notified: Yes Date Notified: 10/30/22 Time Notified: 13:29 Method of Notification: Text Reason For Visit: chest pain Diagnosis Discharge Diagnosis (1) ESRD on hemodialysis: Status: Acute Code(s): N18.6 - End stage renal disease; Z99.2 - Dependence on renal dialysis (2) Chest pain: Status: Acute Code(s): R07.9 - Chest pain, unspecified (3) Dyspnea: Status: Acute Code(s): R06.00 - Dyspnea, unspecified Plan This 72-year-old female is being admitted for further evaluation of right-sided chest pain, new EKG changes and high troponin. 1.? Right-sided chest pain elevated troponin, most likely non-STEMI but other differential diagnosis right-sided pleuritic chest pain/recent thoracocentesis: Patient is being admitted in PCU.? Patient on Eliquis 2.5 mg twice daily for h istory of paroxysmal A-fib. ? CHELSEA risk score 4. ? On 09/14 her troponin were normal.? Ep Tech is consulted. Patient is started on aspirin 325 mg and heparin drip without bolus.? It seems patient had cardiac cath in 2007 but did not require a stent at that time.? Patient on carvedilol continued. 10/31: Patient had CT angiogram which did not show PE.? Right [id number] pleural effusion and left small pleural effusion.? She had thoracocentesis recently about 1 week ago and 220 mL was aspirated.? I do not think patient has enough fluid for thoracocentesis. First troponin 278, second troponin 296 and third 1 292. ? Serial troponins profile shows flat and plateau like with no significant delta change.? With low probability of non-STEMI and therefore nuclear stress test was ordered.? Echo shows EF 50% LA severely enlarged right a moderately large.? Mild inferior and inferior septal hypokinesis.? Moderate TR with PASP 51 mmHg. 11/01: Stress test on 10/31 reported small reversible defect of the basal lateral wall of mild intensity.? EF 59% on Cardiolite study.? Discussed with the cardiol ogist no plan for cardiac cath as patient is high risk and small reversible defect on stress test.? Patient on medical management.? Eliquis resumed. 11/02: Work-up is complete.? Pending pre-CERT for SNF discharge. 11/03: Pre-CERT received. Patient is going to SNF. Rest as mentioned above. 2.? Hyperkalemia with ESRD: Potassium 6.1 reported slight hemolysis.? Patient was given insulin and D50 in ED.? Assistant Reading Teacher is consulted.? Patient on hemodialysis Sunday and Sunday. 10/31: Patient was dialyzed yesterday. 11/03 dialysis on Sunday and Sunday. 3.? Acute on chronic HFpEF and HFrEF, present on admission, paroxysmal A-fib, mild valvular heart disease, recent right thoracocentesis : Recent echo on 10/30 as mentioned above.? Patient on hemodialysis.? Patient is anuric.? Patient on carvedilol and aspirin.? Patient not candidate for NATALIA/ARB because of ESRD on hemodialysis and hyperkalemia.? Overall not good prognosis with recurrent admission.? Palliative care ordered Patient had last echo in September 2020 reported EF 40% moderate TR, trivial MR mild diffuse aortic valve thickening.? RVSP 44 mmHg. she had thoracocentesis on 10/26 with 220 mL of blood-tinged fluid removed.? Fluid was transudate and negative for malignant cells.? Hold Eliquis as patient is on IV heparin drip.? 11/01: Continue medical management. 4.? Chronic respiratory failure secondary to COPD: She denies change in characteristic of cough or shortness of breath does not seem to be in COPD exacerbation.? Continue DuoNeb as needed.? Continue home inhalers. 5.? Hypertension: Blood pressure is in normal range.? Hold antihypertensive medications. #Hypertension: 6.? GERD: On PPI 7. Chronic pain syndrome with back pain and arthritis: Patient states she is on oxycodone 3 times daily but on home medication she is on twice daily. She follows pain management doctor. She is full code but on palliative care. Operative critical following snf ? As per my discussion with?patient's next of kin, her son Mr. Jose Kaufman? and power of assistant city attorney for health on 10/31, patient is full code and wants all possible resuscitation.? Agreeable for palliative care. Discharge medication reconciliation done. Discharge follow-up instructions completed. Discharge process discussed with the patient and all questions were answered to patient's satisfaction. Discharged to SNF. Total time spent, exact 35 minutes on discharge meds reconciliation, examination, coordination of care with nurses and ancillary staff, review of imaging and blood test and discussion with the patient on follow-up instructions. Living will/advanced directive/end of life care: Patient does not have living will or advanced directive.? Her son is next to kin and power of assistant city attorney for health.? After discussion of benefits/risks procedures involved with? full code, DNR CC arrest and DNR CC, the patient opted for full code. Patient? does want artificial life support including intubation, tube feed, ventilator and/chest compression, central venous catheter, vasopressor and DC shock if needed Clinical Impression(s) from Imaging Studies Chest X-Ray 10/30/22 08:39 IMPRESSION: Increasing pleural-parenchymal changes in the right hemithorax. Electronically Signed: Lopez Barraza MD at 9:34 EDT Reading Location ID and State: [address] [place] [address] , Service support , Chest CTA 10/30/22 12:53 IMPRESSION: 1. No evidence of pulmonary embolus. 2. No aortic dissection or aneurysm. 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 4. Cardiomegaly. 5. Bilateral pleural effusions, right greater than left. Electronically Signed: Giuseppe Malone DO at 22:48 EDT Reading Location ID and State: [facility] / [place] Tel [phone], Service support , Echocardiogram 10/30/22 12:55 Interpretation Summary The left ventricular ejection fraction is 50 %.. Mild inferior and inferior septal hypokinesis Unable to assess diastolic dysfunction. The left atrium is severely enlarged. The right atrium is moderately enlarged. Moderate (2+) tricuspid valve insufficiency. Pulmonary artery systolic pressure is 51 mmHg. Ordering Physician: Kip White Performed By: Adelso Brewer RCS Medications at Discharge Home Medications calcium acetate(phosphat bind) 667 mg capsule 2,001 mg PO TIDCM health maintenance 11/30/20 apixaban 2.5 mg tablet (Eliquis) 2.5 mg PO BID anticoagulant 01/08/21 mirtazapine 45 mg tablet 45 mg PO QHS INSOMNIA 01/08/21 dicyclomine 20 mg tablet 20 mg PO TID ibs 02/26/21 gabapentin 300 mg capsule 300 mg PO SUTUTHSA NERVE PAIN 10/05/21 gabapentin 600 mg tablet 600 mg PO MOWEFR NERVE PAIN 10/05/21 montelukast 10 mg tablet (Singulair) 10 mg PO QHS ALLERGIES 10/25/21 midodrine 10 mg tablet 10 mg PO MOWEFR bp 02/23/22 duloxetine 60 mg capsule,delayed release 60 mg PO DAILY DEPRESSION 05/19/22 fluticasone 500 mcg-salmeterol 50 mcg/dose blistr powdr for inhalation (Advair Diskus) 1 inh inhalation BID sob 05/19/22 polyethylene glycol 3350 17 gram/dose oral powder (Miralax) 17 g PO DAILY CONSTIPATION 05/19/22 tiotropium bromide 2.5 mcg/actuation mist for inhalation (Spiriva Respimat) 2 puff inhalation DAILY sob 05/19/22 albuterol sulfate 2.5 mg/3 mL (0.083 %) solution for nebulization 2.5 mg (3 mL) inhalation Q2H PRN PRN SOB/Wheezing 30 days #90 mL 05/20/22 acetaminophen 325 mg tablet (Tylenol) 650 mg PO Q6H PRN PRN Pain 1-10 Or Fever >100.7 #0 tabs 06/13/22 carvedilol 25 mg tablet 25 mg PO BID bp 10/20/22 oxycodone 10 mg tablet 10 mg PO BID PRN break through pain 10/20/22 pantoprazole 40 mg tablet,delayed release 40 mg PO BID gerd 10/20/22 calcitriol 0.25 mcg capsule 0.25 mcg PO MOWEFR . 10/30/22 prednisone 10 mg tablet 10 mg PO DAILY . 10/30/22 vitamin B complex-vitamin C-folic acid 0.8 mg tablet (Lizabeth-Eliza) 1 tab PO DAILY SUPPLEMENT 10/30/22 albuterol sulfate 90 mcg/actuation aerosol inhaler 2 puff inhalation Q6H PRN SOB 30 days #0 grams 11/01/22 aspirin 81 mg tablet,delayed release 81 mg PO BREAKFAST #0 tabs 11/01/22 hydralazine 100 mg tablet 50 mg PO TID BLOOD PRESSURE 30 days #0 tabs 11/01/22 nicotine 14 mg/24 hr daily transdermal patch 14 mg transdermal DAILY 30 days #28 ea 11/01/22 sennosides 8.6 mg-docusate sodium 50 mg tablet (Stool Softener-Stimulant Laxative) 2 tab PO BID PRN PRN Constipation #0 tabs 11/01/22 amlodipine 5 mg tablet 5 mg PO DAILY 30 days #0 tabs 11/03/22 ferrous sulfate 325 mg (65 mg iron) tablet (FeroSul) 325 mg PO QODAY@1700 #0 tabs 11/03/22 Physical Exam Narrative Seen and examined on the day of discharge. No acute issues. Chest pain has resolved. Patient has mild chronic shortness of breath on exertion that is her baseline. She is on hemodialysis Sunday.Blood pressure is controlled. Physical exam General: Alert, Oriented x3, Cooperative HEENT: Atraumatic, PERRLA, EOMI, Normocephalic Oral: Oral mucosa moist. No Gingival or Mucosal Lesions/ Ulcerations Neck: Supple, No JVD, Negative Carotid Bruits. Dialysis catheter on right chest. Chest wall/lungs: No reproducible chest wall tenderness. Air entry diminished in right lung base more than left lung base. No crepitation/rhonchi. Cardiovascular: Regular rate, Regular Rhythm, Normal S1, Normal S2, systolic murmur LSB Abdomen: Bowel Sounds Present, Soft, Non Tender, Non-Distended. : On hemodialysis. No renal angle tenderness. No suprapubic tenderness. Extremities: No edema, Capillary Refill Less than 3 Seconds Skin: No rashes, No breakdown Musculoskeletal: ROM restricted over knee and hip joints. 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 Medical Records Data Medical Nutrition Assessment Dietitian: Malnutrition Criteria Met Start: 10/31/22 10:14 Freq: Status: Active Protocol: Document 10/31/22 10:14 AG (Rec: 10/31/22 10:14 [id number]) Nutrition Malnutrition Evidence of Malnutrition Exists Yes Malnutrition (moderate): Chronic Evidenced By Suboptimal Energy Intake ( Moderate),Physical Changes ( Moderate) Clinical Problem Chronic Disease or Condition Related Malnutrition Etiology moderate, chronic malnutrition related to inadequate energy intake w/ increased energy needs d/t ESRD/HD Signs/Symptoms as evidenced by estimated PO intake meeting< 75% of estimated energy needs > 3 months; Mild muscle wasting/ fat loss evident per physical exam in orbital, clavicle, acromion, and temporal areas. Status Active Problem Recommendation Dietitian Recommendations/Changes continue cardiac diet when medically indicated; will monitor PO intake/labs and adjust diet as indicated; will order Nepro Carb Steady 120mL 4x/day w/ medpass for additional calories/protein if consumed. Will monitor PO intake and provide additional ONS as indicated. Weight / BMI Weight Weight: 142 lb 10.225 oz Body Mass Index (BMI) 21.0 ABG / Lab / Microbiology Data Result Diagrams: 10/31/22 06:30 11/01/22 06:36 Microbiology: Microbiology 10/30/22 08:46 Nasal Secretion SARS-CoV-2 & FLU Antigen (Rapid) - Final Meaningful Use Info Meaningful Use Diagnoses (Choose all that apply): None applicable Discharge Plan Admission Admit Date/Time: 10/30/22 10:35 Primary Reason for Your Visit: Right-sided chest pain, ACS ruled out. Multiple comorbidity Attending Provider: Deandre Langford Primary Care Provider: Yen Valdez PROGRAM DIRECTOR AIR TALENT Consulting Providers: Kip White ; Soraida Sears Discharge Orders/Prescriptions Prescriptions: New sennosides-docusate sodium [Stool Softener-Stimulant Laxat] 8.6-50 mg Tablet 2 tab PO BID PRN PRN (Reason: Constipation) Qty: 0 0RF aspirin 81 mg Tablet,Delayed Release (Dr/Ec) 81 mg PO BREAKFAST Qty: 0 0RF nicotine 14 mg/24 hr Patch 24 Hour 14 mg transdermal DAILY 30 Days Qty: 28 0RF amlodipine 5 mg Tablet 5 mg PO DAILY 30 Days Qty: 0 0RF ferrous sulfate [FeroSul] 325 mg (65 mg iron) Tablet 325 mg PO QODAY@1700 Qty: 0 0RF Continued calcium acetate(phosphat bind) 667 mg Capsule 2,001 mg PO TIDCM mirtazapine 45 mg Tablet 45 mg PO QHS Eliquis 2.5 mg Tablet 2.5 mg PO BID Hold Instructions: Resume on 07/22/22. dicyclomine 20 mg tablet 20 mg PO TID Label Comments: Take 1 tablet by mouth three times daily before meals. gabapentin 600 mg tablet 600 mg PO MOWEFR Label Comments: 1 TABLET BY MOUTH (3P-6P AFTER DIALYSIS) DX: gabapentin 300 mg capsule 300 [facility] Label Comments: 1 CAPSULE BY MOUTH (3P-6P) DX:E montelukast [Singulair] 10 mg Tablet 10 mg PO QHS midodrine 10 mg tablet 10 mg PO MOWEFR fluticasone propion-salmeterol [Advair Diskus] 500-50 mcg/dose Blister With Device 1 inh INHALATION BID Spiriva Respimat 2.5 mcg/actuation Mist 2 puff INHALATION DAILY duloxetine 60 mg capsule,delayed release(DR/EC) 60 mg PO DAILY polyethylene glycol 3350 [Miralax] 17 gram/dose powder 17 g PO DAILY albuterol sulfate 2.5 mg /3 mL (0.083 %) Solution For Nebulization 2.5 mg inhalation Q2H PRN PRN (Reason: SOB/Wheezing) 30 Days Qty: 90 1RF acetaminophen [Tylenol] 325 mg Tablet 650 mg PO Q6H PRN PRN (Reason: Pain 1-10 Or Fever >100.7) Qty: 0 0RF carvedilol 25 mg tablet 25 mg PO BID pantoprazole 40 mg tablet,delayed release (DR/EC) 40 mg PO BID oxycodone 10 mg Tablet 10 mg PO BID PRN (Reason: break through pain) prednisone 10 mg Tablet 10 mg PO DAILY Lizabeth-Eliza 0.8 mg Tablet 1 tab PO DAILY calcitriol 0.25 mcg capsule 0.25 mcg PO MOWE Label Comments: Take 1 capsule by mouth three times a week on Sunday, Sunday, and Sunday Changed hydralazine 100 MG tablet 50 mg PO TID 30 Days Qty: 0 0RF Rx Instructions: Hold for SBP less than 130 mmHg albuterol sulfate 90 mcg/actuation HFA aerosol inhaler 2 puff inhalation Q6H PRN (Reason: SOB) 30 Days Qty: 0 0RF Discontinued amlodipine 10 mg Tablet 10 mg PO DAILY Referrals / Follow Up: Kip White MD [Med Staff - Active Staff] - Within 1 Month Steven Hollins DO [Med Staff - Active Staff] - Within 1 Month Soraida Sears MD [Med Staff - Consulting] - Within 1 Month Yen Valdez PROGRAM DIRECTOR AIR TALENT, PROGRAM DIRECTOR AIR TALENT-C [Primary Care Provider] - Disposition Disposition (needs filled in before D/C Order can be placed): [facility] Facility Charges/Coding Visit Charges Inpatient E&M: 24232 Disch Hosp >30min
[2022-11-03 09:49] VITALS: BP 131/89; PULSE 71
--- NOTE | 2022-11-03 09:54 | CASEMGMT ---
Discharge Planning Discharge orders and med list sent to [facility] via [employer]. Adele Roman
--- NOTE | 2022-11-03 10:40 | NURSING ---
Report called to REGGIE Arias at [facility].
--- NOTE | 2022-11-03 11:24 | CASEMGMT ---
Patient is ready for discharge. MARIA GUADALUPE called [facility] and spoke with Pat in their dialysis unit. Pat said they could do dialysis with patient today when she arrives. MARIA GUADALUPE called [facility] to set up transportation as required by patient's insurance. MARIA GUADALUPE requested [facility] [place]. Trip number is [id number]. MARIA GUADALUPE called [place] and gave them a heads up on transport request. MARIA GUADALUPE also spoke with [facility] and asked if they could transport patient. Imelda said she would check into it. 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 MARIA GUADALUPE notified [place] and [facility] MARIA GUADALUPE notified patient, RN, and sludge control attendant. MARIA GUADALUPE completed [id number] in [email or web address]. Plan: d/c to [facility] under skilled level of care on a convalescent stay. [facility] transported patient. Evy GONZALEZ
== END 2022-11-03 11:15 | disposition skilled nursing facility (03) | DRG 280 ==
LOC: ED 10:41 → PCU 11:35
PROVIDERS: Nurse Practitioner Adult Health; Admitting Provider Internal Medicine; Emergency Provider Emergency Medicine; PCP Nurse Practitioner Adult Health; Visit Provider Internal Medicine
DX: I13.2 Hypertensive heart and chronic kidney disease with heart failure and with stage 5 chronic kidney disease, or end stage renal disease (principal); I21.A1 Myocardial infarction type 2; N18.6 End stage renal disease; I50.43 Acute on chronic combined systolic (congestive) and diastolic (congestive) heart failure; J96.12 Chronic respiratory failure with hypercapnia; E44.0 Moderate protein-calorie malnutrition; I48.20 Chronic atrial fibrillation, unspecified; J96.11 Chronic respiratory failure with hypoxia; D63.1 Anemia in chronic kidney disease; E11.22 Type 2 diabetes mellitus with diabetic chronic kidney disease; J43.9 Emphysema, unspecified; Z99.2 Dependence on renal dialysis; E87.5 Hyperkalemia; I25.10 Atherosclerotic heart disease of native coronary artery without angina pectoris; J45.909 Unspecified asthma, uncomplicated; K21.9 Gastro-esophageal reflux disease without esophagitis; F17.200 Nicotine dependence, unspecified, uncomplicated; E78.5 Hyperlipidemia, unspecified; M54.9 Dorsalgia, unspecified; Z79.01 Long term (current) use of anticoagulants; Z66 Do not resuscitate; Z96.643 Presence of artificial hip joint, bilateral; Z51.5 Encounter for palliative care; Z79.52 Long term (current) use of systemic steroids; Z79.51 Long term (current) use of inhaled steroids; Z79.891 Long term (current) use of opiate analgesic; G89.4 Chronic pain syndrome
CPT/HCPCS: 36415; 71046; 71275; 78452; 80048; 80061; 83735; 83880; 84100; 84443; 84484; 85025; 85610; 85730; 87428; 90937; 93005; 93017; 93306; 94640; 97110; 97116; 97162; 97166; 97530; 97535; 99285; 99406; A9500; Q9967; A4216; G0257; J2785

== ENCOUNTER 2022-11-09 10:35 | Inpatient (IN) | payer MEDICARE, MEDICAID, SELFPAY ==
[2022-11-09] VITALS (29 sets, daily range): BP systolic 102–177; BP diastolic 49–139; PULSE 52–73; RESP 12–22; TEMP 36.3–37.1; O2SAT 96–100; BMI 21.9; BMI 21.5
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
--- NOTE | 2022-11-09 10:54 | EKG12_ITS ---
Test Reason : ABN LABS Blood Pressure : / mmHG Vent. Rate : 053 BPM Atrial Rate : 053 BPM P-R Int : 174 ms QRS Dur : 082 ms QT Int : 466 ms P-R-T Axes : 000 024 -42 degrees QTc Int : [address] & T wave abnormality, consider anterior ischemia Abnormal ECG Confirmed by TERE LEMON, JAN ([id number]), department editor BIRDIE TORRES ([id number]) on 11/13/2022 11:39:54 AM Referred By: ANGELICA Confirmed By:JAN CARRANZA MD
--- NOTE | 2022-11-09 11:15 | RAD_ITS ---
STUDY: X-RAY CHEST REASON FOR EXAM: Female, 72 years old. Fatigue, lethargy TECHNIQUE: Single AP portable view of the chest. COMPARISON: 10/30/2022 FINDINGS: EKG leads overlie the chest. Stable appearance of right-sided catheter. Diffuse airspace opacifications in both lung linda with stable bilateral pleural effusions, no interval change since the previous study. Normal size heart. Normal mediastinum and farhan. Normal visualized pulmonary arteries. Normal visualized aortic arch and descending thoracic aorta. Normal visualized thoracic spine. Normal visualized ribs, clavicles, and shoulders. There is no demonstrated abnormality of the visualized soft tissue structures of the upper abdomen. RAD/Chest 1 View (Portable) IMPRESSION: No interval change Electronically Signed: Sebastien Aquino MD at 11:55 EDT ,
[2022-11-09 11:49] LABS: Absolute Lymphocyte Count 0.85 X10^3/uL (0.83-4.51); Absolute Neutrophil Count 13.2 X10^3/uL (2.0-7.7); Basophil# 0.03 X10^3/uL; Basophil% 0.2 % (0-1); Eosinophil# 0.08 X10^3/uL; Eosinophils% 0.5 % (0-5); Hematocrit 14.2 % (37-47); Lymphocyte # 0.85 X10^3/ul (0.83-4.51); Lymphocyte % 5.6 % (19-41); Mean Corp Hgb Conc 29.6 g/dL (32-36); Mean Corpuscular Hgb 26.9 pg (27.0-32.0); Mean Platelet Vol. 8.6 fl (6.2-12.0); Monocyte# 0.58 X10^3/uL; Monocyte% 3.9 % (0-10); NRBC Flagged by Analyzer 0.1 % (0-5); Neutrophil # 13.17 X10^3/uL (2.7-7.7); Neutrophil % 87.5 % (47-70); POSITIVE COUNT YES; POSITIVE MORPHOLOGY YES; Platelet Count 303 K/mm3 (150-450); RBC Distribution Width CV 20.1 % (11.6-14.6); RBC Distribution Width SD 65.7 fl (35.1-43.9); Red Blood Count 1.56 M/mm3 (4.2-5.4); White Blood Count 15.1 K/mm3 (4.4-11.0)
[2022-11-09 11:55] LABS: Differential Indicated SCAN CRITERIA MET; Hemoglobin 4.2 g/dL (12.0-15.0)
[2022-11-09 11:58] LABS: International Normalized Ratio 1.4; Prothrombin Time (Protime)PT. 16.8 SECONDS (11.7-14.9)
[2022-11-09 12:06] LABS: AST(SGOT) 14 U/L (15-37); Alanine Aminotransfer ALT/SGPT 13 U/L (13-56); Albumin, Serum 2.4 g/dL (3.2-5.0); Alkaline Phosphatase 72 U/L (45-117); Anion Gap 9 (5-15); BUN 87 mg/dL (7-18); BUN/Creat Ratio 12.6 RATIO (10-20); Bilirubin, Direct 0.15 mg/dL (0.00-0.30); Calcium,Total 10.4 mg/dL (8.5-10.1); Chloride 96 mmol/L (98-107); EST Glomerular Filtration Rate 6 mL/min (>60); Est Glom Filt Rate - Afr Amer 8 mL/min (>60); Estimated Creatinine Clearance 7.65 ml/min; Globulin 4.7 g/dL (2.2-4.2); Glucose 107 mg/dL (74-106); Potassium 5.5 mmol/L (3.5-5.1); Protein, Total 7.1 g/dL (6.4-8.2); Sodium Level 136 mmol/L (136-145); Troponin-I HS 25 pg/mL (3.0-54.0)
[2022-11-09 12:16] LABS: Anisocytosis 2+
[2022-11-09] MEDS: HUMAN PROTHROMBIN COMPLX(PCC) 3,500 UNIT in Viaflex Bag 1 BAG 471 UNIT IV (12:17)
[2022-11-09] MEDS: fentaNYL 100 MCG/2 ML Ampul 25 MCG IV (12:28)
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
[2022-11-09] MEDS: Morphine 2 MG/ML Syringe IV (15:05)
[2022-11-09] MEDS: 0.9% Saline Lock 10 ML Syringe IV ×3 (15:06→21:36)
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
[2022-11-09] MEDS: Bisacodyl 5 MG Tablet 20 MG PO (16:09)
[2022-11-09] MEDS: Furosemide 40 MG/4 ML Vial IV (16:09)
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
[2022-11-09] MEDS: Polyethylene Glycol 3350 BOWEL PREP PO (17:24)
[2022-11-09] MEDS: Metoclopramide 10 MG/2 ML Vial 5 MG IV (17:24)
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
[2022-11-09] MEDS: Ipratropium/Albuterol Sulfate 3 ML AMPUL.NEB INHALATION (19:05)
--- NOTE | 2022-11-09 20:20 | NURSING ---
Phlebotomy notified of pt request to draw her scheduled HH after failed attempt by this RN.
[2022-11-09] MEDS: Mirtazapine 30 MG Tablet PO (21:36)
[2022-11-09 22:08] LABS: Hematocrit 20.4 % (37-47); Hemoglobin 6.5 g/dL (12.0-15.0)
[2022-11-10] VITALS (43 sets, daily range): BP systolic 126–211; BP diastolic 58–120; PULSE 54–75; RESP 16–26; TEMP 35.9–37.3; O2SAT 96–100; BMI 21.5
--- NOTE | 2022-11-10 | COLBX_PTH ---
PATIENT: ALEC GUTIERREZ LOC: [facility] U#:[id number] AGE/SX: 72/F ROOM: [facility] RE11/09/[address]: Dr. Stiven Mo DO : 1950 BED: 1 DIS: 11/13/2022 SPEC #: [id number] RECD: 11/10/22 19:15 STATUS: OSIEL MAGANA #: [id number] JABIER: 11/10/22 00:[address]: Alexx Yuen DEPT: SURGICAL PATHOLOGY RECD BY: Gael Cardenas ENTERED: 11/13/22 10:07 SP TYPE: COLON BX OTHR DR: MD Dr. Steven Zurita, DO Dr. Stiven Mo, MD Dr. Shar Vázquez Dr., DO MD Dr. Lorenzo Alicia MD Christina Muller, [employer] Yen Valdez, [employer] Tissues: Cecum, NOS Procedures: Surgery Specimen Level IV Comments: @ Ordering doctor for ETIENNE edited from to @ by EAGLE at 11/13/22 1415 @ Submitting doctor edited from to @ by RGOOD at 11/13/22 1415 HEADER OPERATION: Colonoscopy with biopsy, EGD with cautery Tiffanie MAYES) PRE-OP DIAGNOSIS: Anemia TISSUE SUBMITTED: Cecum biopsy MICROSCOPIC DIAGNOSIS Cecum, biopsy: Tubular adenoma. MARY:ronnie 11/14/2022 MICROSCOPIC DESCRIPTION Slides are reviewed. GROSS DESCRIPTION Received in fixative is one container labeled with the patient's name and designated cecum biopsy. The specimen consists of one irregular fragment of light trejo soft tissue that measures 0.3 x 0.2 x 0.1 cm. The specimen is totally submitted in one cassette. / MARY:ronnie 11/13/2022 TC:5 CPT: 76931
[2022-11-10] MEDS: Metoclopramide 10 MG/2 ML Vial 5 MG IV ×4 (00:20→17:56)
[2022-11-10 05:29] LABS: Absolute Lymphocyte Count 1.45 X10^3/uL (0.83-4.51); Absolute Neutrophil Count 8.9 X10^3/uL (2.0-7.7); Basophil# 0.04 X10^3/uL; Basophil% 0.3 % (0-1); Eosinophil# 0.19 X10^3/uL; Eosinophils% 1.6 % (0-5); Hematocrit 17.7 % (37-47); Lymphocyte # 1.45 X10^3/ul (0.83-4.51); Lymphocyte % 12.2 % (19-41); Mean Corp Hgb Conc 31.1 g/dL (32-36); Mean Corpuscular Hgb 27.4 pg (27.0-32.0); Mean Corpuscular Volume 88.1 fL (81-99); Mean Platelet Vol. 8.5 fl (6.2-12.0); Monocyte# 1.08 X10^3/uL; Monocyte% 9.1 % (0-10); NRBC Flagged by Analyzer 0.8 % (0-5); Neutrophil # 8.92 X10^3/uL (2.7-7.7); Neutrophil % 74.7 % (47-70); POSITIVE COUNT YES; Platelet Count 260 K/mm3 (150-450); RBC Distribution Width SD 54.9 fl (35.1-43.9); Red Blood Count 2.01 M/mm3 (4.2-5.4); White Blood Count 11.9 K/mm3 (4.4-11.0)
[2022-11-10 05:34] LABS: Differential Indicated SCAN CRITERIA MET; Hemoglobin 5.5 g/dL (12.0-15.0)
[2022-11-10 05:41] LABS: Anion Gap 8 (5-15); BUN 93 mg/dL (7-18); BUN/Creat Ratio 13.2 RATIO (10-20); Chloride 96 mmol/L (98-107); Creatinine, Serum 7.03 mg/dL (0.55-1.02); EST Glomerular Filtration Rate 6 mL/min (>60); Est Glom Filt Rate - Afr Amer 7 mL/min (>60); Estimated Creatinine Clearance 7.77 ml/min; Glucose 85 mg/dL (74-106); Potassium 5.2 mmol/L (3.5-5.1); Sodium Level 131 mmol/L (136-145)
[2022-11-10 05:56] LABS: Anisocytosis 2+; Differential Comment SCANNED; Hypochromasia 2+
[2022-11-10 05:57] LABS: Macrocytosis 1+; Microcytosis 1+
[2022-11-10] MEDS: Morphine 2 MG/ML Syringe IV ×2 (06:34→14:03)
--- NOTE | 2022-11-10 08:25 | PCM.PN.HOSP ---
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 Patient is being given 2 units of packed red blood cells, hemoglobin today was 5.5, I have elected to give her a third unit today. Objective Data Objective Data Vital Signs: Vital Signs Temp Pulse Resp BP Pulse Ox O2 Del Method O2 Flow Rate 98.4 F 55 L 20 H 132/81 H 100 Nasal Cannula 4 11/10/22 08:00 11/10/22 08:00 11/10/22 08:00 11/10/22 08:00 11/10/22 08:00 11/10/22 08:00 11/10/22 08:00 Oxygen Flow Rate (L/min) 4 Oxygen Delivery Method Nasal Cannula Weight: 66.1 kg Body Mass Index (BMI) 21.5 Intake & Output: Intake and Output for Last 24 Hours 11/08/22 11/09/22 11/10/22 23:59 23:59 23:59 Intake Total 1719 387.66 / 387.66 Balance 1719 387.66 / 387.66 Medical Nutrition Assessment Dietitian: Malnutrition Criteria Met Start: 11/10/22 08:22 Freq: Status: Active Protocol: Document 11/10/22 08:22 (Rec: 11/10/22 08:22 [id number]) Nutrition Malnutrition Evidence of Malnutrition Exists Yes Malnutrition (moderate): Chronic Evidenced By Suboptimal Energy Intake ( Moderate),Physical Changes ( Mild) Clinical Problem Chronic Disease or Condition Related Malnutrition Etiology moderate, chronic malnutrition related to inadequate energy intake w/ increased energy needs d/t ESRD/HD Signs/Symptoms as evidenced by estimated PO intake meeting< 75% of estimated energy needs > 3 months; Mild muscle wasting/ fat loss evident per physical exam in orbital, clavicle, acromion, and temporal areas. Status Active Problem Recommendation Dietitian Recommendations/Changes recommend renal-general diet when medically indicated; nepro carbsteady ONS 120mL 4x/ day w/medpass when diet advanced. Will monitor labs and adjust/liberalize diet as indicated when diet is advanced. Lab / Micro Data Result Diagrams: 11/10/22 05:20 11/10/22 05:20 Labs: Laboratory Results - last 24 hr 11/09/22 11:23: Crossmatch See Detail 11/09/22 11:35: WBC 15.1 H, RBC 1.56 L, Hgb 4.2 L*, Hct 14.2 L, MCV 91.0, MCH 26.9 L, MCHC 29.6 L, RDW Std Deviation 65.7 H, RDW Coeff of Destiny 20.1 H, Plt Count 303, MPV 8.6, Immature Gran % (Auto) 2.300 H, Neut % (Auto) 87.5 H, Lymph % (Auto) 5.6 L, [place] % (Auto) 3.9, Eos % (Auto) 0.5, Baso % (Auto) 0.2, Absolute Neuts (auto) 13.2 H, Absolute Lymphs (auto) 0.85, Nucleated RBC % 0.1, Differential Comment COMMENT, Diff Path Review May foll, Anisocytosis 2+ 11/09/22 11:35: PT 16.8 H, INR 1.4, APTT 32.0 11/09/22 11:35: Sodium 136, Potassium 5.5 H, Chloride 96 L, Carbon Dioxide 31.0, Anion Gap 9, BUN 87 H, Creatinine 6.90 H, Estim Creat Clear Calc 7.65, Est GFR (MDRD) Af Amer 8 L, Est GFR (MDRD) Non-Af 6 L, BUN/Creatinine Ratio 12.6, Glucose 107 H, Calcium 10.4 H, Total Bilirubin 0.50, Direct Bilirubin 0.15, AST 14 L, ALT 13, Alkaline Phosphatase 72, Troponin I High Sens 25, Total Protein 7.1, Albumin 2.4 L, Globulin 4.7 H 11/09/22 11:35: Blood Type A POSITIVE, Antibody Screen NEGATIVE 11/09/22 21:57: Hgb 6.5 L, Hct 20.4 L 11/10/22 05:20: WBC 11.9 H, RBC 2.01 L, Hgb 5.5 L*, Hct 17.7 L, MCV 88.1, MCH 27.4, MCHC 31.1 L D, RDW Std Deviation 54.9 H, RDW Coeff of Destiny 18.0 H, Plt Count 260, MPV 8.5, Immature Gran % (Auto) 2.100 H, Neut % (Auto) 74.7 H, Lymph % (Auto) 12.2 L, [place] % (Auto) 9.1, Eos % (Auto) 1.6, Baso % (Auto) 0.3, Absolute Neuts (auto) 8.9 H, Absolute Lymphs (auto) 1.45, Nucleated RBC % 0.8, Differential Comment SCANNED, Diff Path Review May foll, Hypochromasia 2+, Anisocytosis 2+, Microcytosis 1+, Macrocytosis 1+ 11/10/22 05:20: Sodium 131 L, Potassium 5.2 H, Chloride 96 L, Carbon Dioxide 27.0, Anion Gap 8, BUN 93 H, Creatinine 7.03 H, Estim Creat Clear Calc 7.77, Est GFR (MDRD) Af Amer 7 L, Est GFR (MDRD) Non-Af 6 L, BUN/Creatinine Ratio 13.2, Glucose 85, Calcium 9.0 Micro: Microbiology 11/09/22 11:25 Stool Stool Occult Blood (JOHNSON) - Final Occult Blood Positive Radiography Diagnostic Testing: Radiology Impression Chest X-Ray 11/09/22 11:15 IMPRESSION: No interval change Electronically Signed: Sebastien Aquino MD at 11:55 EDT Reading Location ID and State: [address] [place] [address] , Service support , Physical Exam Narrative alert and no apparent distress Constitutional Narrative: Patient appears much older than her stated age, she appears frail and unwell General Appearance: cooperative, well kempt and well developed Orientation / Consciousness: awake, oriented to person and oriented to place, she is somnolent this morning HEENT normocephalic, head/scalp atraumatic, hearing grossly normal bilaterally and moist oral mucous membranes Eyes PERRL, EOMs intact bilaterally and conjunctivae normal Neck supple, no JVD, thyroid normal and no carotid bruits General: trachea midline Resp normal respiratory effort, no retractions, no use of accessory muscles and clear to auscultation bilaterally Auscultation: Negative for rales, rhonchi or wheezes Cardio regular rate, regular rhythm, S1 normal heart sound, S2 normal heart sound, 2/6 systolic murmur is noted at the apex and left sternal border, no rub and no gallops GI normal to inspection, nondistended, normoactive bowel sounds, soft to palpation, non-tender and non-distended Extremity no clubbing, cyanosis or edema Skin no rashes or lesions noted General Skin Exam: no breakdown Neuro oriented x3, CN's II-XII intact bilaterally, moves all extremities, no focal motor deficits and no sensory deficits noted Sensorium / Orientation: awake, alert, oriented to person and oriented to place Speech: speech normal Psych Psych Narrative: Patient has flat affect Assessment & Plan Assessment/Plan (1) Anemia: PLAN: Plan 1. Acute on chronic anemia-most likely secondary to GI blood loss with an overlay of anemia of chronic renal disease-patient will undergo endoscopy today, I have decided to give her a total of 3 units of packed red blood cells today, hemoglobin will be rechecked this afternoon #2 chronic hypoxic respiratory failure-patient is currently on 4 L of oxygen via nasal cannula, pulse ox will be monitored #3 chronic obstructive pulmonary disease-patient was placed on aerosol treatments, she will be seen by pulmonary medicine #4 end-stage renal disease requiring dialysis-nephrology was consulted, she is being dialyzed today #5 paroxysmal atrial fibrillation-patient will be kept off Eliquis at this time, patient is in sinus rhythm at this time #6 hypercoagulable state secondary to paroxysmal atrial fibrillation-patient will need to remain off her Eliquis for now due to upper GI bleed. #7 chronic pain syndrome-patient will be given IV morphine as needed for pain #8 hyperkalemia-labs will be monitored I talked to the patient in the emergency room about a report from nephrology that the patient's family had wanted hospice care, patient states that she was interested in having a hospice consultation at the senior care so that they could take care of her pain symptoms. For now, patient is not appropriate for hospice care, she might be more appropriate for palliative care when she goes back to the senior care. Total clinical time spent by myself addressing patient's medical issues, reviewing all of her data, and collaborating with patient's care team: 36 minutes Charges/Coding Visit Charges Inpatient E&M: 76981 Subs Hosp L2
[2022-11-10] MEDS: Bisacodyl 5 MG Tablet 20 MG PO (08:58)
[2022-11-10] MEDS: Polyethylene Glycol 3350 BOWEL PREP PO (08:58)
--- NOTE | 2022-11-10 09:53 | CASEMGMT ---
REGGIE FAN note: Spoke w/Daphney @ [facility]. Pt is active w/them and Daphney aware pt has been admitted to [facility]. She states they have had the discussion w/pt in the past re: Hospice, but pt has not been appropriate for Hospice, as she has wanted to continue w/HD. Tanmay GARCIA RN CM
--- NOTE | 2022-11-10 10:18 | PCM.PN.REN ---
Documented by User: JOE Raman 11/10/22 10:29 Subjective Subjective Following for ESRD Patient seen and evaluated on dialysis. Denies any complaints today. No overnight events. Objective Data Objective Data Vital Signs: Vital Signs Temp Pulse Resp BP Pulse Ox O2 Del Method O2 Flow Rate 98.5 F 60 21 H 161/69 H 100 Nasal Cannula 4 11/10/22 09:00 11/10/22 09:00 11/10/22 09:00 11/10/22 09:00 11/10/22 09:00 11/10/22 09:00 11/10/22 09:00 Oxygen Flow Rate (L/min) 4 Oxygen Delivery Method Nasal Cannula Weight: 66.1 kg Body Mass Index (BMI) 21.5 Intake & Output: Intake and Output for Last 24 Hours 11/08/22 11/09/22 11/10/22 23:59 23:59 23:59 Intake Total 1719 787.66 / 787.66 Balance 1719 787.66 / 787.66 Medical Nutrition Assessment Dietitian: Malnutrition Criteria Met Start: 11/10/22 08:22 Freq: Status: Active Protocol: Document 11/10/22 08:22 AG (Rec: 11/10/22 08:22 AG [id number]) Nutrition Malnutrition Evidence of Malnutrition Exists Yes Malnutrition (moderate): Chronic Evidenced By Suboptimal Energy Intake ( Moderate),Physical Changes ( Mild) Clinical Problem Chronic Disease or Condition Related Malnutrition Etiology moderate, chronic malnutrition related to inadequate energy intake w/ increased energy needs d/t ESRD/HD Signs/Symptoms as evidenced by estimated PO intake meeting< 75% of estimated energy needs > 3 months; Mild muscle wasting/ fat loss evident per physical exam in orbital, clavicle, acromion, and temporal areas. Status Active Problem Recommendation Dietitian Recommendations/Changes recommend renal-general diet when medically indicated; nepro carbsteady ONS 120mL 4x/ day w/medpass when diet advanced. Will monitor labs and adjust/liberalize diet as indicated when diet is advanced. Lab / Micro Data Result Diagrams: 11/10/22 12:20 11/10/22 05:20 Labs: Laboratory Results - last 24 hr 11/09/22 11:23: Crossmatch See Detail 11/09/22 11:35: WBC 15.1 H, RBC 1.56 L, Hgb 4.2 L*, Hct 14.2 L, MCV 91.0, MCH 26.9 L, MCHC 29.6 L, RDW Std Deviation 65.7 H, RDW Coeff of Destiny 20.1 H, Plt Count 303, MPV 8.6, Immature Gran % (Auto) 2.300 H, Neut % (Auto) 87.5 H, Lymph % (Auto) 5.6 L, [place] % (Auto) 3.9, Eos % (Auto) 0.5, Baso % (Auto) 0.2, Absolute Neuts (auto) 13.2 H, Absolute Lymphs (auto) 0.85, Nucleated RBC % 0.1, Differential Comment COMMENT, Diff Path Review October, Anisocytosis 2+ 11/09/22 11:35: PT 16.8 H, INR 1.4, APTT 32.0 11/09/22 11:35: Sodium 136, Potassium 5.5 H, Chloride 96 L, Carbon Dioxide 31.0, Anion Gap 9, BUN 87 H, Creatinine 6.90 H, Estim Creat Clear Calc 7.65, Est GFR (MDRD) Af Amer 8 L, Est GFR (MDRD) Non-Af 6 L, BUN/Creatinine Ratio 12.6, Glucose 107 H, Calcium 10.4 H, Total Bilirubin 0.50, Direct Bilirubin 0.15, AST 14 L, ALT 13, Alkaline Phosphatase 72, Troponin I High Sens 25, Total Protein 7.1, Albumin 2.4 L, Globulin 4.7 H 11/09/22 11:35: Blood Type A POSITIVE, Antibody Screen NEGATIVE 11/09/22 21:57: Hgb 6.5 L, Hct 20.4 L 11/10/22 05:20: WBC 11.9 H, RBC 2.01 L, Hgb 5.5 L*, Hct 17.7 L, MCV 88.1, MCH 27.4, MCHC 31.1 L D, RDW Std Deviation 54.9 H, RDW Coeff of Destiny 18.0 H, Plt Count 260, MPV 8.5, Immature Gran % (Auto) 2.100 H, Neut % (Auto) 74.7 H, Lymph % (Auto) 12.2 L, [place] % (Auto) 9.1, Eos % (Auto) 1.6, Baso % (Auto) 0.3, Absolute Neuts (auto) 8.9 H, Absolute Lymphs (auto) 1.45, Nucleated RBC % 0.8, Differential Comment SCANNED, Diff Path Review May foll, Hypochromasia 2+, Anisocytosis 2+, Microcytosis 1+, Macrocytosis 1+ 11/10/22 05:20: Sodium 131 L, Potassium 5.2 H, Chloride 96 L, Carbon Dioxide 27.0, Anion Gap 8, BUN 93 H, Creatinine 7.03 H, Estim Creat Clear Calc 7.77, Est GFR (MDRD) Af Amer 7 L, Est GFR (MDRD) Non-Af 6 L, BUN/Creatinine Ratio 13.2, Glucose 85, Calcium 9.0 Micro: Microbiology 11/09/22 11:25 Stool Stool Occult Blood (JOHNSON) - Final Occult Blood Positive Radiography Diagnostic Testing: Radiology Impression Chest X-Ray 11/09/22 11:15 IMPRESSION: No interval change Electronically Signed: Sebastien Aquino MD at 11:55 EDT , Physical Exam Narrative Alert and oriented x3, no apparent distress S1, S2, rhythm irregular, rate controlled Lung sounds diminished breath sounds with failnt expiratory wheezing noted. No rales Abdomen soft, nontender No pitting edema noted to bilateral lower legs or feet Tunneled HD catheter dressing clean, dry and intact Assessment & Plan Assessment/Plan (1) End-stage renal disease on hemodialysis: (2) Anemia: (3) Acute hyperkalemia: PLAN: Plan This is a 72-year-old female with past medical history significant for ESRD on hemodialysis 4 times weekly at [facility] who was brought to the emergency room for evaluation of low hemoglobin. Hemoglobin in the emergency room 4.2. - ESRD: For dialysis today over 3.5 hours with UF around 1 to 2 L as patient/blood pressure tolerates on 2K bath. - Acute anemia -Most likely secondary to GI loss; Hemoglobin 5.5 this morning, patient received 2 units PRBC yesterday. Patient is receiving 2 unit PRBC again today, also on PPI drip. GI consulted and for scope today. - Potassium is 5.2 today. Patient will dialyze today on 2K bath. Once able to have diet recommend renal diet. - history of HTN; bps acceptable not on any antihypertensives at this time. - Patient may benefit from palliative care consult to help with pain management. - Discussed nephrology plan with Dr. Wakefield Documented by User: Dr. Brittani Byrne MD 11/10/22 14:40 Objective Data Lab / Micro Data Result Diagrams: 11/10/22 12:20 11/10/22 05:20 Assessment & Plan Assessment/Plan (1) End-stage renal disease on hemodialysis: (2) Anemia: (3) Acute hyperkalemia: PLAN: Plan This is a 72-year-old female with past medical history significant for ESRD on hemodialysis 4 times weekly at [facility] who was brought to the emergency room for evaluation of low hemoglobin. Hemoglobin in the emergency room 4.2. - ESRD: For dialysis today over 3.5 hours with UF around 1 to 2 L as patient/blood pressure tolerates on 2K bath. - Acute anemia -Most likely secondary to GI loss; Hemoglobin 5.5 this morning, patient received 2 units PRBC yesterday. Patient is receiving 2 unit PRBC again today, also on PPI drip. GI consulted and for scope today. - Potassium is 5.2 today. Patient will dialyze today on 2K bath. Once able to have diet recommend renal diet. - history of HTN; bps acceptable not on any antihypertensives at this time. - Patient may benefit from palliative care consult to help with pain management. - Discussed nephrology plan with Dr. Wakefield Nephrology attending addendum: The patient is seen and examined. CANDLES POURER's note reflects my independent evaluation and management decision. I supervised the hemodialysis treatment today. F160 dialyzer used, 3.5-hour treatment. Blood flow 400 mL/min, dialysate flow 600 mL/min. Next dialysis is scheduled for 11/13/2022. While the patient is admitted to the hospital, we will keep her on MWF schedule.
--- NOTE | 2022-11-10 11:30 | PCM.PN.INT ---
Assessment & Plan Assessment/Plan (1) GI bleed requiring more than 4 units of blood in 24 hours, ICU, or surgery: PLAN: The patient has had melena, continues to pass blood and required transfusions, she will have a total of 4 units by the end of today. More if needed. 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 She had subsequent admissions discharged 11/03/2022 for GI bleed and type II PR, and the current admission. Blood Bank is researching how many units of blood she has had in the last 6 months. - Colonoscopy today by Alexx Yuen MD - She may well need another EGD with heater probe treatment. (2) End-stage renal disease on hemodialysis: PLAN: Continue routine dialysis. She apparently missed her dialysis at the half-way on Sunday according to discussion with the nephrology nurse practitioner Adeola. - Managed by nephrology - Expect her BUN to rise because of the extra GI nitrogen load after GI bleeding - Inadequate marrow response to acute GI bleeding is typical of end-stage renal disease. I will defer to nephrology regarding dose of erythropoietin (3) Nicotine dependence: PLAN: Smoking cessation is highly recommended, both for her COPD and for its adverse effect on recurrent GI bleeding/gastropathy. (4) COPD (chronic obstructive pulmonary disease): PLAN: The patient has severe COPD. I summarized her pulmonary function test from October 05, 2022 as above it also suggest moderate to severe restriction and mild gas exchange abnormality of uncertain etiology. Her last hospitalization for COPD exacerbation requiring prednisone was July 03, 2022. She is on 4 L/min oxygen in the half-way, and continues to smoke. She has no respiratory complaints this admission. - Continue as needed DuoNeb every 4 hours as needed - Add Symbicort maintenance, 80/4.5, 1 puff twice daily. - Titrate oxygen at rest, sleep and with exertion, once patient is stable enough to begin participating with physical therapy (5) AF (paroxysmal atrial fibrillation): PLAN: Due to the patient's recurrent (3 episodes in ICU since July of this year) and life-threatening upper GI bleeding episodes, which Recurred despite heater probe cauterization of the 3 anteriorangiodys plastic lesions in her duodenum, I would recommend a serious discussion regarding the risks and benefits of continuing Eliquis. The patient had a type II PR due to anemia complicating her hospitalization in early October. Her cardiac work-up included a Holter October 05, 2022 that showed no atrial fibrillation, she was in sinus rhythm with rare PVCs and PACs throughout. Her pharmacologic stress echo on October 31, 2022 showed no ischemic EKG changes and an EF of 50% with a very small reversible mild basolateral wall defect. - We will discuss with Dr. White whether this patient's Eliquis can be discontinued, since the risk of continuing Eliquis may be higher than the benefit weighed against her infrequent atrial fibrillation and stroke risk, versus 3 life-threatening upper GI bleeds. PLAN: Plan As above. Discussed with Dr. Wakefield. This note was generated with [employer] dictation software. It may contain incorrect words, spelling, context and punctuation that were not noted in checking the note before signing. Subjective Subjective This pleasant patient was resting in bed, moderately uncomfortable because of diffuse abdominal pain and distention. She is still passing melanotic stool. She stated that her pain feels exactly like the prior times that she started GI bleeding. Her appetite is poor as a result. Her breathing is at baseline she is getting sufficient nebulizers as needed, according to respiratory occasionally refusing them. No cough no sputum no chest pressure no headache no dizziness. Objective Data Objective Data The patient was seen and examined at the bedside this morning. Events from the last 24 hours have been reviewed. The patient's most recent labs microbiology and imaging have all been personally reviewed. The case was discussed on ICU interdisciplinary rounds. Overnight: Eliquis has been held. The patient continued to pass melanotic stool. Blood pressure remained stable, after 2 units packed cells yesterday hemoglobin increased from 3.7-5.5. She is at her baseline oxygen 4 to 5 L/min, which she wears for COPD. Pertinent events include: She is due to have 2 additional units of blood transfused today, 1 during dialysis this morning, she is due to have colonoscopy at 3 PM by Alexx Yuen MD of gastroenterology. Vital Signs: Vital Signs Temp Pulse Resp BP Pulse Ox O2 Del Method O2 Flow Rate 97 F L 63 19 H 211/100 H 100 Nasal Cannula 4 11/10/22 11:00 11/10/22 11:00 11/10/22 11:00 11/10/22 11:00 11/10/22 11:00 11/10/22 11:00 11/10/22 11:00 Oxygen Flow Rate (L/min) 4 Oxygen Delivery Method Nasal Cannula Weight: 145 lb 11.609 oz Body Mass Index (BMI) 21.5 Intake & Output: Intake and Output for Last 24 Hours 11/08/22 11/09/22 11/10/22 23:59 23:59 23:59 Intake Total 1719 829.66 / 829.66 Balance 1719 829.66 / 829.66 Medical Nutrition Assessment Dietitian: Malnutrition Criteria Met Start: 11/10/22 08:22 Freq: Status: Active Protocol: Document 11/10/22 08:22 AG (Rec: 11/10/22 08:22 AG [id number]) Nutrition Malnutrition Evidence of Malnutrition Exists Yes Malnutrition (moderate): Chronic Evidenced By Suboptimal Energy Intake ( Moderate),Physical Changes ( Mild) Clinical Problem Chronic Disease or Condition Related Malnutrition Etiology moderate, chronic malnutrition related to inadequate energy intake w/ increased energy needs d/t ESRD/HD Signs/Symptoms as evidenced by estimated PO intake meeting< 75% of estimated energy needs > 3 months; Mild muscle wasting/ fat loss evident per physical exam in orbital, clavicle, acromion, and temporal areas. Status Active Problem Recommendation Dietitian Recommendations/Changes recommend renal-general diet when medically indicated; nepro carbsteady ONS 120mL 4x/ day w/medpass when diet advanced. Will monitor labs and adjust/liberalize diet as indicated when diet is advanced. Lab / Micro Data Result Diagrams: 11/10/22 05:20 11/10/22 05:20 Labs: Laboratory Results - last 24 hr 11/09/22 11:23: Crossmatch See Detail 11/09/22 11:35: WBC 15.1 H, RBC 1.56 L, Hgb 4.2 L*, Hct 14.2 L, MCV 91.0, MCH 26.9 L, MCHC 29.6 L, RDW Std Deviation 65.7 H, RDW Coeff of Destiny 20.1 H, Plt Count 303, MPV 8.6, Immature Gran % (Auto) 2.300 H, Neut % (Auto) 87.5 H, Lymph % (Auto) 5.6 L, Pickett % (Auto) 3.9, Eos % (Auto) 0.5, Baso % (Auto) 0.2, Absolute Neuts (auto) 13.2 H, Absolute Lymphs (auto) 0.85, Nucleated RBC % 0.1, Differential Comment COMMENT, Diff Path Review October foll, Anisocytosis 2+ 11/09/22 11:35: PT 16.8 H, INR 1.4, APTT 32.0 11/09/22 11:35: Sodium 136, Potassium 5.5 H, Chloride 96 L, Carbon Dioxide 31.0, Anion Gap 9, BUN 87 H, Creatinine 6.90 H, Estim Creat Clear Calc 7.65, Est GFR (MDRD) Af Amer 8 L, Est GFR (MDRD) Non-Af 6 L, BUN/Creatinine Ratio 12.6, Glucose 107 H, Calcium 10.4 H, Total Bilirubin 0.50, Direct Bilirubin 0.15, AST 14 L, ALT 13, Alkaline Phosphatase 72, Troponin I High Sens 25, Total Protein 7.1, Albumin 2.4 L, Globulin 4.7 H 11/09/22 11:35: Blood Type A POSITIVE, Antibody Screen NEGATIVE 11/09/22 21:57: Hgb 6.5 L, Hct 20.4 L 11/10/22 05:20: WBC 11.9 H, RBC 2.01 L, Hgb 5.5 L*, Hct 17.7 L, MCV 88.1, MCH 27.4, MCHC 31.1 L D, RDW Std Deviation 54.9 H, RDW Coeff of Destiny 18.0 H, Plt Count 260, MPV 8.5, Immature Gran % (Auto) 2.100 H, Neut % (Auto) 74.7 H, Lymph % (Auto) 12.2 L, Pickett % (Auto) 9.1, Eos % (Auto) 1.6, Baso % (Auto) 0.3, Absolute Neuts (auto) 8.9 H, Absolute Lymphs (auto) 1.45, Nucleated RBC % 0.8, Differential Comment SCANNED, Diff Path Review October foll, Hypochromasia 2+, Anisocytosis 2+, Microcytosis 1+, Macrocytosis 1+ 11/10/22 05:20: Sodium 131 L, Potassium 5.2 H, Chloride 96 L, Carbon Dioxide 27.0, Anion Gap 8, BUN 93 H, Creatinine 7.03 H, Estim Creat Clear Calc 7.77, Est GFR (MDRD) Af Amer 7 L, Est GFR (MDRD) Non-Af 6 L, BUN/Creatinine Ratio 13.2, Glucose 85, Calcium 9.0 Micro: Microbiology 11/09/22 11:25 Stool Stool Occult Blood (JOHNSON) - Final Occult Blood Positive Radiography Diagnostic Testing: Radiology Impression Chest X-Ray 11/09/22 11:15 IMPRESSION: No interval change Electronically Signed: Sebastien Aquino MD at 11:55 EDT , Physical Exam Narrative Well-developed pleasant woman who is in mild distress due to diffuse abdominal pain. HEENT normocephalic atraumatic eyes decreased vision, difficulty reading bilaterally. Chest is clear bilaterally with no wheezes rales or rhonchi. Cardiac normal S1-S2 irregular irregular with no murmurs rubs or gallops Abdomen is distended, tender, positive bowel sounds, no rebound. She has an odor of melanotic stool. Extremities have no clubbing cyanosis or edema. Her dialysis catheter is present in the right subclavian, intact with no purulence or erythema at the insertion site, well-maintained. Neuro she is alert and oriented, diffusely weak but grossly nonfocal. Able to feed herself and cooperate with exam. Skin is cool and dry. No diaphoresis Charges/Coding Visit Charges Inpatient E&M: 60633 Subs Hosp L3
[2022-11-10] MEDS: Ipratropium/Albuterol Sulfate 3 ML AMPUL.NEB INHALATION ×2 (11:45→19:50)
[2022-11-10 12:26] LABS: Hematocrit 28.2 % (37-47)
[2022-11-10] MEDS: Heparin 10,000 UNITS/10 ML Vial IV (13:11)
--- NOTE | 2022-11-10 13:28 | DIALYSIS ---
Hemodialysis x 3.5 hours completed. 1 unit PRBC transfused. UF 3300 ml. CVC flushed with nnormal saline and filled to volume with heparin. Patient is stable and alert.
--- NOTE | 2022-11-10 15:20 | CASEMGMT ---
Patient is from [facility]. SW attempted to see patient however, she was out of the room getting a procedure. SW will follow up with patient regarding her d/c plan. Evy GONZALEZ
--- NOTE | 2022-11-10 17:21 | OP.EGD_ITS ---
Patient Name: Cori Ferrer Procedure Date: 11/10/2022 4:19 PM Date of : 1950 Age: 72 Procedure: Upper GI endoscopy Indications: Iron deficiency anemia Providers: Alexx Yuen DO Medicines: Monitored Anesthesia Care Patient Profile: This is a 72 year old female. Refer to note in patient chart for documentation of history and physical. Patient has symptoms of acute dyspepsia. Complications: No immediate complications. Procedure: Pre-Anesthesia Assessment: - Prior to the procedure, a History and Physical was performed, and patient medications and allergies were reviewed. The risks and benefits of the procedure and the sedation options and risks were discussed with the patient. All questions were answered and informed consent was obtained. Patient identification and proposed procedure were verified by the physician in the pre-procedure area. Mental Status Examination: alert and oriented. Airway Examination: normal oropharyngeal airway and neck mobility. Respiratory Examination: clear to auscultation. CV Examination: normal. Prophylactic Antibiotics: The patient does not require prophylactic antibiotics. Prior Anticoagulants: The patient has taken no previous anticoagulant or antiplatelet agents. After reviewing the risks and benefits, the patient was deemed in satisfactory condition to undergo the procedure. The anesthesia plan was to use monitored anesthesia care (MAC). Immediately prior to administration of medications, the patient was re-assessed for adequacy to receive sedatives. The heart rate, respiratory rate, oxygen saturations, blood pressure, adequacy of pulmonary ventilation, and response to care were monitored throughout the procedure. The physical status of the patient was re-assessed after the procedure. After obtaining informed consent, the endoscope was passed under direct vision. Throughout the procedure, the patient's blood pressure, pulse, and oxygen saturations were monitored continuously. The colonoscope was introduced through the mouth, and advanced to the second part of duodenum. The upper GI endoscopy was accomplished without difficulty. The patient tolerated the procedure well. Scope In: 4:41:12 PM Scope Out: 4:48:41 PM Total Procedure Duration Time 0 hours 7 minutes 29 seconds Findings: There was alot of blood seen in the mouth. The examined esophagus was normal. Diffuse severely congested mucosa was found in the stomach. Biopsies were taken with a cold forceps for histology. Verification of patient identification for the specimen was done. Estimated blood loss was minimal. Three 5 mm bleeding angiodysplastic lesions were found in the gastric body. Area was successfully injected with 5 mL of a 1:10,000 solution of epinephrine for drug delivery. Estimated blood loss was minimal. Coagulation for hemostasis using heater probe was successful. Estimated blood loss was minimal. Diffuse moderately erythematous mucosa without active bleeding and with no stigmata of bleeding was found in the entire duodenum. Impression: - There was alot of blood seen in the mouth. - Normal esophagus. - Congestive gastropathy. Biopsied. - Three bleeding angiodysplastic lesions in the stomach. Injected. Treated with a heater probe. - Erythematous duodenopathy. Recommendation: - Return patient to [facility] for ongoing care. - Advance diet as tolerated. - Continue present medications. Procedure Code(s): --- Professional --- 01842, 59, Esophagogastroduodenoscopy, flexible, transoral; with control of bleeding, any method 97308, 59, Esophagogastroduodenoscopy, flexible, transoral; with directed submucosal injection(s), any substance 13608, Esophagogastroduodenoscopy, flexible, transoral; with biopsy, single or multiple CPT copyright 2017 [employer]. All rights reserved. The codes documented in this report are preliminary and upon remote inpatient coder review may be revised to meet current compliance requirements. Alexx Yuen DO 11/10/2022 5:21:22 PM This report has been signed electronically. Number of Addenda: 0 Note Initiated On: 11/10/2022 4:19 PM
--- NOTE | 2022-11-10 17:22 | OP.CCLET_ITS ---
11/10/2022 Yen Valdez Re : Upper GI endoscopy procedure for Cori Ferrer Dear José Miguel This procedure was performed on Thursday, November 10, 2022. My impressions and recommendations are as follows: Impressions : - There was alot of blood seen in the mouth. - Normal esophagus. - Congestive gastropathy. Biopsied. - Three bleeding angiodysplastic lesions in the stomach. Injected. Treated with a heater probe. - Erythematous duodenopathy. Recommendations : - Return patient to [facility] for ongoing care. - Advance diet as tolerated. - Continue present medications. My findings are described in the full procedure note, which is enclosed. If I can be of further assistance, please feel free to contact me at . Sincerely, Alexx Yuen, 11/10/2022 5:21:22 PM This report has been signed electronically.
--- NOTE | 2022-11-10 17:26 | OP.COLON_ITS ---
Patient Name: Cori Ferrer Procedure Date: 11/10/2022 4:48 PM Date of : 1950 Age: 72 Procedure: Colonoscopy Indications: Hematochezia, Iron deficiency anemia Providers: Alexx Yuen DO Medicines: Monitored Anesthesia Care Patient Profile: This is a 72 year old female. Refer to note in patient chart for documentation of history and physical. Patient has symptoms of acute dyspepsia. Last Colonoscopy: date unknown. Unable to locate last colonoscopy report. Complications: No immediate complications. Procedure: Pre-Anesthesia Assessment: - Prior to the procedure, a History and Physical was performed, and patient medications and allergies were reviewed. The risks and benefits of the procedure and the sedation options and risks were discussed with the patient. All questions were answered and informed consent was obtained. Patient identification and proposed procedure were verified by the physician in the pre-procedure area. Mental Status Examination: alert and oriented. Airway Examination: normal oropharyngeal airway and neck mobility. Respiratory Examination: clear to auscultation. CV Examination: normal. Prophylactic Antibiotics: The patient does not require prophylactic antibiotics. Prior Anticoagulants: The patient has taken no previous anticoagulant or antiplatelet agents. After reviewing the risks and benefits, the patient was deemed in satisfactory condition to undergo the procedure. The anesthesia plan was to use monitored anesthesia care (MAC). Immediately prior to administration of medications, the patient was re-assessed for adequacy to receive sedatives. The heart rate, respiratory rate, oxygen saturations, blood pressure, adequacy of pulmonary ventilation, and response to care were monitored throughout the procedure. The physical status of the patient was re-assessed after the procedure. After I obtained informed consent, the scope was passed under direct vision. Throughout the procedure, the patient's blood pressure, pulse, and oxygen saturations were monitored continuously. The colonoscope was introduced through the anus and advanced to the cecum, identified by appendiceal orifice and ileocecal valve. The entire colon was examined. The quality of the bowel preparation was fair. Scope In: 4:53:15 PM Scope Withdrawal Time 0 hours 8 minutes 19 seconds Scope Out: 5:10:44 PM Total Procedure Duration Time 0 hours 17 minutes 29 seconds Findings: The perianal and digital rectal examinations were normal. A few small-mouthed diverticula were found in the recto-sigmoid colon and sigmoid colon. A 5 mm polyp was found in the cecum. The polyp was sessile. The polyp was removed with a cold snare. Resection and retrieval were complete. Verification of patient identification for the specimen was done. Estimated blood loss was minimal. Three small angiodysplastic lesions with bleeding were found in the rectum, in the descending colon and in the cecum. Area was successfully injected with 5 mL of a 1:10,000 solution of epinephrine for drug delivery. Coagulation for hemostasis using heater probe was successful. Estimated blood loss was minimal. Impression: - Diverticulosis in the recto-sigmoid colon and in the sigmoid colon. - One 5 mm polyp in the cecum, removed with a cold snare. Resected and retrieved. - Three bleeding colonic angiodysplastic lesions. Injected. Treated with a heater probe. Recommendation: - Repeat colonoscopy in 3 years for surveillance. - Continue present medications. Procedure Code(s): --- Professional --- 67524, 59, Colonoscopy, flexible; with control of bleeding, any method 14874, Colonoscopy, flexible; with removal of tumor(s), polyp(s), or other lesion(s) by snare technique CPT copyright 2017 [employer]. All rights reserved. The codes documented in this report are preliminary and upon representative phlebotomy services review may be revised to meet current compliance requirements. Alexx Yuen DO 11/10/2022 5:26:00 PM This report has been signed electronically. Number of Addenda: 0 Note Initiated On: 11/10/2022 4:48 PM
--- NOTE | 2022-11-10 17:27 | OP.CCLET_ITS ---
11/10/2022 Yen Valdez Re : Colonoscopy procedure for Cori Ferrer Dear José Miguel This procedure was performed on Thursday, November 10, 2022. My impressions and recommendations are as follows: Impressions : - Diverticulosis in the recto-sigmoid colon and in the sigmoid colon. - One 5 mm polyp in the cecum, removed with a cold snare. Resected and retrieved. - Three bleeding colonic angiodysplastic lesions. Injected. Treated with a heater probe. Recommendations : - Repeat colonoscopy in 3 years for surveillance. - Continue present medications. My findings are described in the full procedure note, which is enclosed. If I can be of further assistance, please feel free to contact me at . Sincerely, Alexx Yuen, 11/10/2022 5:26:00 PM This report has been signed electronically.
[2022-11-10] MEDS: 0.9% Saline Lock 10 ML Syringe IV (17:56)
[2022-11-10] MEDS: hydrALAZINE 50 MG Tablet PO (19:50)
[2022-11-10] MEDS: Carvedilol 25 MG Tablet PO (19:50)
[2022-11-10] MEDS: Calcitriol 0.25 MCG Capsule PO (19:50)
[2022-11-10] MEDS: amLODIPine 5 MG Tablet PO (19:51)
[2022-11-10 20:01] LABS: Hematocrit 29.6 % (37-47); Hemoglobin 9.6 g/dL (12.0-15.0)
[2022-11-10] MEDS: Gabapentin 600 MG Tablet PO (21:01)
[2022-11-10] MEDS: Mirtazapine 30 MG Tablet PO (21:02)
[2022-11-11] VITALS (19 sets, daily range): BP systolic 124–167; BP diastolic 53–74; PULSE 60–81; RESP 16–24; TEMP 36.6–37.1; O2SAT 100; BMI 21.2
[2022-11-11] MEDS: Metoclopramide 10 MG/2 ML Vial 5 MG IV ×5 (00:02→23:28)
[2022-11-11] MEDS: hydrALAZINE 50 MG Tablet PO ×3 (05:20→22:41)
[2022-11-11 05:32] LABS: Absolute Lymphocyte Count 0.98 X10^3/uL (0.83-4.51); Absolute Neutrophil Count 8.4 X10^3/uL (2.0-7.7); Basophil# 0.05 X10^3/uL; Basophil% 0.5 % (0-1); Eosinophil# 0.15 X10^3/uL; Eosinophils% 1.4 % (0-5); Hematocrit 29.1 % (37-47); Hemoglobin 9.4 g/dL (12.0-15.0); Lymphocyte # 0.98 X10^3/ul (0.83-4.51); Lymphocyte % 9.1 % (19-41); Mean Corp Hgb Conc 32.3 g/dL (32-36); Mean Corpuscular Hgb 28.2 pg (27.0-32.0); Mean Corpuscular Volume 87.4 fL (81-99); Mean Platelet Vol. 8.9 fl (6.2-12.0); Monocyte# 0.91 X10^3/uL; Monocyte% 8.5 % (0-10); NRBC Flagged by Analyzer 0.2 % (0-5); Neutrophil # 8.42 X10^3/uL (2.7-7.7); Neutrophil % 78.5 % (47-70); Platelet Count 237 K/mm3 (150-450); RBC Distribution Width CV 17.1 % (11.6-14.6); RBC Distribution Width SD 51.4 fl (35.1-43.9); Red Blood Count 3.33 M/mm3 (4.2-5.4); White Blood Count 10.7 K/mm3 (4.4-11.0)
[2022-11-11] MEDS: Ipratropium/Albuterol Sulfate 3 ML AMPUL.NEB INHALATION ×4 (07:24→20:15)
[2022-11-11] MEDS: DULoxetine Hcl 60 MG Capsule PO (09:50)
[2022-11-11] MEDS: Carvedilol 25 MG Tablet PO ×2 (09:50→22:41)
[2022-11-11] MEDS: Calcium Acetate 667 MG Capsule 2001 MG PO ×3 (09:50→18:46)
[2022-11-11] MEDS: amLODIPine 5 MG Tablet PO (09:51)
[2022-11-11] MEDS: 0.9% Saline Lock 10 ML Syringe IV ×4 (09:52→23:29)
[2022-11-11] MEDS: Folic Acid/Vitamin B Comp W-C 1 Capsule 1 CAP PO (09:52)
[2022-11-11] MEDS: oxyCODONE 5 MG Tablet 10 MG PO (09:58)
[2022-11-11 10:16] LABS: Ammonia < 10.0 umol/L (11-32)
--- NOTE | 2022-11-11 10:58 | PCM.PN.INT ---
Assessment & Plan Assessment/Plan (1) GI bleed requiring more than 4 units of blood in 24 hours, ICU, or surgery: PLAN: Additional AVMs in duodenum and colon cauterized yesterday, with stabilization of h/h. - follow h/h q8h x 24h - received 3 U PRBCs yesterday in ICU, one during dialysis - consider video capsule to identify other lesions in small bowel which may be amenable to endoxcopic treatment, if h/h continues to drop - agree with holding eliquis for the near future. Patient had 6 units of blood transfused prior to this admission, now total is 11 units PRBCs since July 2022. - lactulose x 1 given until NH3 returned normal today. - reglan 5 mg IV q6h per GI, zofran - pantoprazole 40 PO BID (2) AF (paroxysmal atrial fibrillation): PLAN: rate is controlled and in NSR. Her cardiac work-up included a Holter October 05, 2022 that showed no atrial fibrillation, she was in sinus rhythm with rare PVCs and PACs throughout.? Her pharmacologic stress echo on October 31, 2022 showed no ischemic EKG changes and an EF of 50% with a very small reversible mild basolateral wall defect. Decision has been made that the risk of GI bleed outweighs the risk of CVA in this patient with a normal Holter. HTN is controlled on hydralazine 50 TID, (3) Acute non-ST elevation myocardial infarction (NSTEMI): PLAN: Troponin is normal. - maintain SpO2 >92% - amlodipine, carvedilol (4) Acute and chronic respiratory failure: PLAN: Patient is on baseline O2 at 4 LPM. Not wheezing. - Change DUoneb to QID w/a and a4h PRN. - resume Advair BID - prednisone 10 mg daily and singulair held for now until stable. (5) COPD (chronic obstructive pulmonary disease): PLAN: Severe COPD.? Pulmonary function tests October 05, 2022 also suggest moderate to severe restriction and mild gas exchange abnormality of uncertain etiology.? Her last hospitalization for COPD exacerbation requiring prednisone was July 03, 2022.? She is on 4 L/min oxygen in the care home, and continues to smoke.? She has no respiratory complaints this admission.as above, not exacerbated at this time. - resume Advair BID or equivalent per formulary restrictions (she takes Advair 250/50 BID in the NH) - prednisone 10 mg daily and singulair held for now until stable. I do not see that she is on chronic prednisone - follow up in pulmonary clinic on a routine basis. (6) Congestive heart failure (CHF): PLAN: currently well compensated, received lasix yesterday after transfusions (7) Nicotine dependence: PLAN: complete cessation is recommended. - recommend NRT or CHantix at discharge (8) End-stage renal disease on hemodialysis: PLAN: Dialysis 11/10, management per renal. - recommend increased fluid removal next treatment compared to usual due to multiple transfusions yesterday. PLAN: Plan In addition to the above: Patient had brief confusion and lethargy upon awakening, which resolved with holding morphine, oxycodone, gabapentin, and finding normal ammonia level and nonfocal neuro exam. Likely due to drugs, resolved. Routine ICU PPX with pantoprazole, start in-hospital DVT PPX in 1-2 days off Eliquis; PT, OT. As above.? Discussed with Dr. Wakefield. This note was generated with [employer] dictation software. It may contain incorrect words, spelling, context and punctuation that were not noted in checking the note before signing. Critical care time (due to continued bleeding, altered mental status E&M, multiple changing and complex comorbid conditions): 45 minutes [id number]. Subjective Subjective Patient is more ocnfused in AM, but nonfocal, tracks, follows commands. Appears toxic-metabolic, likely due to blood in GI tract. Ammonia level was normal, and patient woke up and was her normal self by 11AM. Minimal cough, no change in dyspnea, no wheeze or chest pain. Abd pain is better today. Objective Data Objective Data Overnight: stable, but more confusion. no additional transfusions. Hb 9.4. Still passing less melanotic stools. GI found AVMs in duodenum and colon, which were cauterized. Also 1 colon polyp removed per RN. Ammonia level is normal. Vital Signs: Vital Signs Temp Pulse Resp BP Pulse Ox O2 Del Method O2 Flow Rate 98 F 62 18 167/70 H 100 Nasal Cannula 4 11/11/22 04:00 11/11/22 10:50 11/11/22 10:50 11/11/22 07:00 11/11/22 07:23 11/11/22 10:50 11/11/22 10:50 Oxygen Flow Rate (L/min) 4 Oxygen Delivery Method Nasal Cannula Weight: 143 lb 11.862 oz Body Mass Index (BMI) 21.2 Intake & Output: Intake and Output for Last 24 Hours 11/09/22 11/10/22 11/11/22 23:59 23:59 23:59 Intake Total 1719 / 1959 1849.66 / 2299.66 995 / 995 Output Total 3300 / 3300 0 / 0 Balance 1720 / 1959 -1450.34 / -1000.34 995 / 995 Medical Nutrition Assessment Dietitian: Malnutrition Criteria Met Start: 11/10/22 08:22 Freq: Status: Active Protocol: Document 11/10/22 08:22 AG (Rec: 11/10/22 08:22 AG [id number]) Nutrition Malnutrition Evidence of Malnutrition Exists Yes Malnutrition (moderate): Chronic Evidenced By Suboptimal Energy Intake ( Moderate),Physical Changes ( Mild) Clinical Problem Chronic Disease or Condition Related Malnutrition Etiology moderate, chronic malnutrition related to inadequate energy intake w/ increased energy needs d/t ESRD/HD Signs/Symptoms as evidenced by estimated PO intake meeting< 75% of estimated energy needs > 3 months; Mild muscle wasting/ fat loss evident per physical exam in orbital, clavicle, acromion, and temporal areas. Status Active Problem Recommendation Dietitian Recommendations/Changes recommend renal-general diet when medically indicated; nepro carbsteady ONS 120mL 4x/ day w/medpass when diet advanced. Will monitor labs and adjust/liberalize diet as indicated when diet is advanced. Lab / Micro Data Attestation: I reviewed the patient's lab results. Result Diagrams: 11/11/22 05:15 11/10/22 05:20 Labs: Laboratory Results - last 24 hr 11/09/22 11:23: Crossmatch See Detail 11/10/22 08:22: Crossmatch See Detail 11/10/22 12:20: Hgb 9.0 L, Hct 28.2 L 11/10/22 19:55: Hgb 9.6 L, Hct 29.6 L 11/11/22 05:15: WBC 10.7, RBC 3.33 L, Hgb 9.4 L, Hct 29.1 L, MCV 87.4, MCH 28.2, MCHC 32.3, RDW Std Deviation 51.4 H, RDW Coeff of Destiny 17.1 H, Plt Count 237, MPV 8.9, Immature Gran % (Auto) 2.000 H, Neut % (Auto) 78.5 H, Lymph % (Auto) 9.1 L, [place] % (Auto) 8.5, Eos % (Auto) 1.4, Baso % (Auto) 0.5, Absolute Neuts (auto) 8.4 H, Absolute Lymphs (auto) 0.98, Nucleated RBC % 0.2 11/11/22 09:45: Ammonia < 10.0 L Micro: Microbiology 11/09/22 11:25 Stool Stool Occult Blood (JOHNSON) - Final Occult Blood Positive Radiography Diagnostic Testing: Colonoscopy 11/10/[address] Yuen: Impressions : - Diverticulosis in the recto-sigmoid colon and in the sigmoid colon. - One 5 mm polyp in the cecum, removed with a cold snare.? Resected and ?retrieved. - Three bleeding colonic angiodysplastic lesions.? Injected.? Treated with a ?heater probe. Recommendations : - Repeat colonoscopy in 3 years for surveillance. - Continue present medications. EGD 11/10/[address] Yuen: Impression: ? - There was alot of blood seen in the mouth. ? - Normal esophagus. ? - Congestive gastropathy. Biopsied. ? - Three bleeding angiodysplastic lesions in the ? stomach. Injected. Treated with a heater probe. ? - Erythematous duodenopathy. Rhythm Strip Rhythm Strip: A-fib Physical Exam Narrative Unchanged from yesterday except: COnfusion that resolved by 11 AM Abdominal discomfort is improved but embossing machine tender, no rebound, mildly distended, normal bowel sounds. Nonfocal neuro exam. It is noted she is on gabapentin, oxycodone and mirtazapine, which can cause confusion and lethargy. Charges/Coding Procedures Hospitalists Procedures: 82372 Critial Care 1st Hr
--- NOTE | 2022-11-11 11:33 | CASEMGMT ---
Addendum entered by Roseline Wilks 11/11/22 12:36: Social Work [facility] responded to SW in [facility] that pt can return when ready, no precert is needed, pt has a Medicaid bedhold. Green sheet placed on chart in event pt can be discharged on the weekend. JENIFER Sherman Addendum entered by Roseline Wilks 11/11/22 12:00: Social Work Updates sent in [facility]. JENIFER Sherman Original Note: Social Work SW met w/pt, confirmed plan is for pt to return to [facility], pt declined a list of other longterm facilities in the area. SW inquired if she would like SW to speak w/her son, or if her son is aware. Pt states son aware, but did want to speak w/him. SW assisted pt in calling her son. Plan, return to [facility] when ready, SW will find out if pt needs a new precert from [facility] and will send updates via [facility]. JENIFER Sherman
[2022-11-11] MEDS: Lactulose 20 GM/30 ML UDC 10 GM PO (12:19)
--- NOTE | 2022-11-11 13:09 | PN.HOSP_ITS ---
Reason for Visit Reason for Visit: Diagnoses Anemia in other chronic diseases classified elsewhere (11/09/22) Anemia, unspecified (11/09/22) Hyperkalemia (11/09/22) Nicotine dependence, unspecified, uncomplicated (11/09/22) Non-ST elevation (NSTEMI) myocardial infarction (11/09/22) Paroxysmal atrial fibrillation (11/09/22) Heart failure, unspecified (11/09/22) Chronic obstructive pulmonary disease, unspecified (11/09/22) Chronic respiratory failure with hypoxia (11/09/22) Acute and chronic respiratory failure, unspecified whether with hypoxia or hypercapnia (11/09/22) Gastrointestinal hemorrhage, unspecified (11/09/22) End stage renal disease (11/09/22) prison (current) use of anticoagulants (11/09/22) Dependence on renal dialysis (11/09/22) Subjective Subjective , I briefly discussed her care with critical care today. Patient appears stable for transfer to the floor. Patient's hemoglobin today was 9.4. Patient has no complaints of any shortness of breath or chest discomfort. Objective Data Objective Data Vital Signs: Vital Signs Temp Pulse Resp BP Pulse Ox O2 Del Method O2 Flow Rate 98.0 F 62 18 160/67 H 100 Nasal Cannula 4 11/11/22 08:00 11/11/22 10:50 11/11/22 10:50 11/11/22 08:00 11/11/22 08:00 11/11/22 10:50 11/11/22 10:50 Oxygen Flow Rate (L/min) 4 Oxygen Delivery Method Nasal Cannula Weight: 65.2 kg Body Mass Index (BMI) 21.2 Intake & Output: Intake and Output for Last 24 Hours 11/09/22 11/10/22 11/11/22 23:59 23:59 23:59 Intake Total 1719 1849.66 / 2299.66 1190 / 1190 Output Total 3300 / 3300 0 / 0 Balance 1721959 -1450.34 / -1000.34 1190 / 1190 Medical Nutrition Assessment Dietitian: Malnutrition Criteria Met Start: 11/10/22 08:22 Freq: Status: Active Protocol: Document 11/10/22 08:22 AG (Rec: 11/10/22 08:22 [id number]) Nutrition Malnutrition Evidence of Malnutrition Exists Yes Malnutrition (moderate): Chronic Evidenced By Suboptimal Energy Intake ( Moderate),Physical Changes ( Mild) Clinical Problem Chronic Disease or Condition Related Malnutrition Etiology moderate, chronic malnutrition related to inadequate energy intake w/ increased energy needs d/t ESRD/HD Signs/Symptoms as evidenced by estimated PO intake meeting< 75% of estimated energy needs > 3 months; Mild muscle wasting/ fat loss evident per physical exam in orbital, clavicle, acromion, and temporal areas. Status Active Problem Recommendation Dietitian Recommendations/Changes recommend renal-general diet when medically indicated; nepro carbsteady ONS 120mL 4x/ day w/medpass when diet advanced. Will monitor labs and adjust/liberalize diet as indicated when diet is advanced. Lab / Micro Data Result Diagrams: 11/11/22 05:15 11/10/22 05:20 Labs: Laboratory Results - last 24 hr 11/10/22 08:22: Crossmatch See Detail 11/10/22 19:55: Hgb 9.6 L, Hct 29.6 L 11/11/22 05:15: WBC 10.7, RBC 3.33 L, Hgb 9.4 L, Hct 29.1 L, MCV 87.4, MCH 28.2, MCHC 32.3, RDW Std Deviation 51.4 H, RDW Coeff of Destiny 17.1 H, Plt Count 237, MPV 8.9, Immature Gran % (Auto) 2.000 H, Neut % (Auto) 78.5 H, Lymph % (Auto) 9.1 L, [place] % (Auto) 8.5, Eos % (Auto) 1.4, Baso % (Auto) 0.5, Absolute Neuts (auto) 8.4 H, Absolute Lymphs (auto) 0.98, Nucleated RBC % 0.2 11/11/22 09:45: Ammonia < 10.0 L Micro: Microbiology 11/09/22 11:25 Stool Stool Occult Blood (JOHNSON) - Final Occult Blood Positive Rhythm Strip Rhythm Strip: A-fib Physical Exam Narrative alert and no apparent distress Constitutional Narrative: Patient appears much older than her stated age, she appears frail and unwell General Appearance: cooperative, well kempt and well developed Orientation / Consciousness: awake, oriented to person and oriented to place, she is somnolent this morning HEENT normocephalic, head/scalp atraumatic, hearing grossly normal bilaterally and moist oral mucous membranes Eyes PERRL, EOMs intact bilaterally and conjunctivae normal Neck supple, no JVD, thyroid normal and no carotid bruits General: trachea midline Resp normal respiratory effort, no retractions, no use of accessory muscles and clear to auscultation bilaterally Auscultation: Negative for rales, rhonchi or wheezes Cardio regular rate, regular rhythm, S1 normal heart sound, S2 normal heart sound, 2/6 systolic murmur is noted at the apex and left sternal border, no rub and no gallops GI normal to inspection, nondistended, normoactive bowel sounds, soft to palpation, non-tender and non-distended Extremity no clubbing, cyanosis or edema Skin no rashes or lesions noted General Skin Exam: no breakdown Neuro oriented x3, CN's II-XII intact bilaterally, moves all extremities, no focal motor deficits and no sensory deficits noted Sensorium / Orientation: awake, alert, oriented to person and oriented to place Speech: speech normal Psych Psych Narrative: Patient has flat affect Assessment & Plan Assessment/Plan (1) GI bleed requiring more than 4 units of blood in 24 hours, ICU, or surgery: (2) Anemia: PLAN: Plan 1. 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 #2 chronic hypoxic respiratory failure-patient is currently on 4 L of oxygen via nasal cannula, pulse ox will be monitored #3 chronic obstructive pulmonary disease-patient was placed on aerosol treatments, she will be seen by pulmonary medicine #4 end-stage renal disease requiring dialysis-nephrology was consulted, next dialysis is next Sunday #5 paroxysmal atrial fibrillation-patient will be kept off Eliquis at this time, patient is in sinus rhythm at this time #6 hypercoagulable state secondary to paroxysmal atrial fibrillation-patient will need to remain off her Eliquis for now due to upper GI bleed. #7 chronic pain syndrome-patient will be given IV morphine as needed for pain #8 hyperkalemia-labs will be monitored as necessary I talked to the patient in the emergency room about a report from nephrology that the patient's family had wanted hospice care, patient states that she was interested in having a [facility] at the [facility] so that they could take care of her pain symptoms. For now, patient is not appropriate for hospice care, she might be more appropriate for palliative care when she [facility] to the [facility]. Total clinical time spent by myself addressing patient's medical issues, reviewing all of her data, and collaborating with patient's care team: 37 minutes Charges/Coding Visit Charges Inpatient E&M: 76573 Subs Hosp L2
[2022-11-11] MEDS: Pantoprazole Sodium 40 MG Tablet PO ×2 (13:23→22:41)
--- NOTE | 2022-11-11 15:51 | PN_ITS ---
Subjective Subjective Patient underwent egd and colonoscopy yesterday for acute blood loss anemia. She multiple areas in the upper and lower GI tract that were seen and treated. No bleeding overnight. Objective Data Objective Data Vital Signs: Vital Signs Temp Pulse Resp BP Pulse Ox O2 Del Method O2 Flow Rate 98.1 F 72 18 124/66 H 100 Nasal Cannula 4 11/11/22 13:41 11/11/22 15:03 11/11/22 15:03 11/11/22 13:41 11/11/22 13:41 11/11/22 15:03 11/11/22 15:03 Oxygen Flow Rate (L/min) 4 Oxygen Delivery Method Nasal Cannula Weight: 143 lb 11.862 oz Body Mass Index (BMI) 21.2 Intake & Output: Intake and Output for Last 24 Hours 11/09/22 11/10/22 11/11/22 23:59 23:59 23:59 Intake Total 1720 / 1960 1849.66 / 2299.66 1190 / 1190 Output Total 3300 / 3300 0 / 0 Balance 1720 / 1960 -1450.34 / -1000.34 1190 / 1190 Medical Nutrition Assessment Dietitian: Malnutrition Criteria Met Start: 11/10/22 08:22 Freq: Status: Active Protocol: Document 11/10/22 08:22 AG (Rec: 11/10/22 08:22 [id number]) Nutrition Malnutrition Evidence of Malnutrition Exists Yes Malnutrition (moderate): Chronic Evidenced By Suboptimal Energy Intake ( Moderate),Physical Changes ( Mild) Clinical Problem Chronic Disease or Condition Related Malnutrition Etiology moderate, chronic malnutrition related to inadequate energy intake w/ increased energy needs d/t ESRD/HD Signs/Symptoms as evidenced by estimated PO intake meeting< 75% of estimated energy needs > 3 months; Mild muscle wasting/ fat loss evident per physical exam in orbital, clavicle, acromion, and temporal areas. Status Active Problem Recommendation Dietitian Recommendations/Changes recommend renal-general diet when medically indicated; nepro carbsteady ONS 120mL 4x/ day w/medpass when diet advanced. Will monitor labs and adjust/liberalize diet as indicated when diet is advanced. Lab / Micro Data Result Diagrams: 11/11/22 05:15 11/10/22 05:20 Labs: Laboratory Results - last 24 hr 11/10/22 08:22: Crossmatch See Detail 11/10/22 19:55: Hgb 9.6 L, Hct 29.6 L 11/11/22 05:15: WBC 10.7, RBC 3.33 L, Hgb 9.4 L, Hct 29.1 L, MCV 87.4, MCH 28.2, MCHC 32.3, RDW Std Deviation 51.4 H, RDW Coeff of Destiny 17.1 H, Plt Count 237, MPV 8.9, Immature Gran % (Auto) 2.000 H, Neut % (Auto) 78.5 H, Lymph % (Auto) 9.1 L, [place] % (Auto) 8.5, Eos % (Auto) 1.4, Baso % (Auto) 0.5, Absolute Neuts (auto) 8.4 H, Absolute Lymphs (auto) 0.98, Nucleated RBC % 0.2 11/11/22 09:45: Ammonia < 10.0 L Micro: Microbiology 11/09/22 11:25 Stool Stool Occult Blood (JOHNSON) - Final Occult Blood Positive Rhythm Strip Rhythm Strip: A-fib Physical Exam Narrative alert and no apparent distress Constitutional Narrative: Patient appears much older than her stated age, she appears frail and unwell General Appearance: cooperative, well kempt and well developed Orientation / Consciousness: awake, oriented to person and oriented to place, she is somnolent this morning HEENT normocephalic, head/scalp atraumatic, hearing grossly normal bilaterally and moist oral mucous membranes Eyes PERRL, EOMs intact bilaterally and conjunctivae normal Neck supple, no JVD, thyroid normal and no carotid bruits General: trachea midline Resp normal respiratory effort, no retractions, no use of accessory muscles and clear to auscultation bilaterally Auscultation: Negative for rales, rhonchi or wheezes Cardio regular rate, regular rhythm, S1 normal heart sound, S2 normal heart sound, 2/6 systolic murmur is noted at the apex and left sternal border, no rub and no gallops GI normal to inspection, nondistended, normoactive bowel sounds, soft to palpation, non-tender and non-distended Extremity no clubbing, cyanosis or edema Skin no rashes or lesions noted General Skin Exam: no breakdown Neuro oriented x3, CN's II-XII intact bilaterally, moves all extremities, no focal motor deficits and no sensory deficits noted Sensorium / Orientation: awake, alert, oriented to person and oriented to place Speech: speech normal Psych Psych Narrative: Patient has flat affect Assessment & Plan Assessment/Plan (1) Anemia in chronic illness: (2) Acute blood loss anemia: (3) Occult GI bleeding: (4) Atrial fibrillation: PLAN: Plan 72 female history of end-stage renal disease on dialysis, type 2 diabetes mellitus, COPD congestive heart failure, paroxysmal atrial fibrillation (on anticoagulation), hypertension who presented to [facility] with shortness of breath. She was noted to have worsened anemia and was diagnosed with acute blood loss anemia. #Acute on chronic anemia likely due to GI bleed Hemoglobin 5.6 on admission Transfused 2 units FOBT was positive Eliquis held On IV pantoprazole She underwent egd and colonoscopy. Bleeding areas were treated endoscopically. 11/11: hemoglobin stable #Paroxysmal atrial fibrillation On atenolol Eliquis held secondary to GI bleed #DVT ppx: SCDs Charges/Coding Visit Charges Inpatient E&M: 04936 Subs Hosp L3
[2022-11-11] MEDS: Morphine 2 MG/ML Syringe IV (18:57)
[2022-11-11] MEDS: Menthol/Lanolin/Calamine/Znox 113 GM Tube 1 APPLIC TOPICAL (22:40)
[2022-11-11] MEDS: Mirtazapine 30 MG Tablet PO (22:41)
[2022-11-11] MEDS: Gabapentin 300 MG Capsule PO (22:45)
[2022-11-12] VITALS (12 sets, daily range): BP systolic 103–151; BP diastolic 56–69; PULSE 63–76; RESP 16–24; TEMP 36.9–37.3; O2SAT 96–100; BMI 21.4
[2022-11-12] MEDS: hydrALAZINE 50 MG Tablet PO ×2 (05:52→21:16)
[2022-11-12 06:29] LABS: Absolute Lymphocyte Count 0.88 X10^3/uL (0.83-4.51); Absolute Neutrophil Count 8.9 X10^3/uL (2.0-7.7); Basophil# 0.04 X10^3/uL; Basophil% 0.4 % (0-1); Eosinophil# 0.19 X10^3/uL; Eosinophils% 1.7 % (0-5); Hematocrit 27.9 % (37-47); Lymphocyte # 0.88 X10^3/ul (0.83-4.51); Lymphocyte % 7.9 % (19-41); Mean Corp Hgb Conc 32.3 g/dL (32-36); Mean Corpuscular Hgb 28.6 pg (27.0-32.0); Mean Corpuscular Volume 88.6 fL (81-99); Mean Platelet Vol. 8.5 fl (6.2-12.0); Monocyte# 0.97 X10^3/uL; Monocyte% 8.7 % (0-10); NRBC Flagged by Analyzer 0 % (0-5); Neutrophil # 8.88 X10^3/uL (2.7-7.7); Platelet Count 230 K/mm3 (150-450); RBC Distribution Width SD 53.6 fl (35.1-43.9); Red Blood Count 3.15 M/mm3 (4.2-5.4); White Blood Count 11.1 K/mm3 (4.4-11.0)
[2022-11-12] MEDS: Ipratropium/Albuterol Sulfate 3 ML AMPUL.NEB INHALATION ×4 (07:15→20:04)
[2022-11-12] MEDS: oxyCODONE 5 MG Tablet 10 MG PO ×2 (08:27→19:08)
[2022-11-12] MEDS: Calcium Acetate 667 MG Capsule 2001 MG PO ×3 (08:29→17:59)
[2022-11-12] MEDS: Carvedilol 25 MG Tablet PO ×2 (08:29→21:16)
[2022-11-12] MEDS: Folic Acid/Vitamin B Comp W-C 1 Capsule 1 CAP PO (08:29)
[2022-11-12] MEDS: DULoxetine Hcl 60 MG Capsule PO (08:30)
[2022-11-12] MEDS: Pantoprazole Sodium 40 MG Tablet PO ×2 (08:30→21:16)
[2022-11-12] MEDS: amLODIPine 5 MG Tablet PO (08:30)
[2022-11-12] MEDS: 0.9% Saline Lock 10 ML Syringe IV ×4 (10:36→23:59)
[2022-11-12] MEDS: Morphine 2 MG/ML Syringe IV ×3 (10:37→23:58)
--- NOTE | 2022-11-12 11:07 | PN.HOSP_ITS ---
Reason for Visit Reason for Visit: Diagnoses Acute posthemorrhagic anemia (11/09/22) Anemia in other chronic diseases classified elsewhere (11/09/22) Anemia, unspecified (11/09/22) Hyperkalemia (11/09/22) Nicotine dependence, unspecified, uncomplicated (11/09/22) Non-ST elevation (NSTEMI) myocardial infarction (11/09/22) Paroxysmal atrial fibrillation (11/09/22) Unspecified atrial fibrillation (11/09/22) Heart failure, unspecified (11/09/22) Chronic obstructive pulmonary disease, unspecified (11/09/22) Chronic respiratory failure with hypoxia (11/09/22) Acute and chronic respiratory failure, unspecified whether with hypoxia or hypercapnia (11/09/22) Gastrointestinal hemorrhage, unspecified (11/09/22) End stage renal disease (11/09/22) Other fecal abnormalities (11/09/22) senior living (current) use of anticoagulants (11/09/22) Dependence on renal dialysis (11/09/22) Subjective Subjective Patient was seen and examined today, she complains of generalized pain but has no other complaints. Patient's hemoglobin appears to be stable at this time Objective Data Objective Data Vital Signs: Vital Signs Temp Pulse Resp BP Pulse Ox O2 Del Method O2 Flow Rate 99.2 F H 65 16 136/56 H 100 Nasal Cannula 4 11/12/22 08:23 11/12/22 08:23 11/12/22 08:23 11/12/22 08:23 11/12/22 08:23 11/12/22 08:23 11/12/22 08:23 Oxygen Flow Rate (L/min) 4 Oxygen Delivery Method Nasal Cannula Weight: 65.8 kg Body Mass Index (BMI) 21.4 Intake & Output: Intake and Output for Last 24 Hours 11/10/22 11/11/22 11/12/22 23:59 23:59 23:59 Intake Total 1849.66 / 2299.66 1430 / 1430 Output Total 3300 / 3300 0 / 0 0 / 0 Balance -1450.34 / -1000.34 1430 / 1430 0 / 0 Medical Nutrition Assessment Dietitian: Malnutrition Criteria Met Start: 11/10/22 08:22 Freq: Status: Active Protocol: Document 11/10/22 08:22 AG (Rec: 11/10/22 08:22 [id number]) Nutrition Malnutrition Evidence of Malnutrition Exists Yes Malnutrition (moderate): Chronic Evidenced By Suboptimal Energy Intake ( Moderate),Physical Changes ( Mild) Clinical Problem Chronic Disease or Condition Related Malnutrition Etiology moderate, chronic malnutrition related to inadequate energy intake w/ increased energy needs d/t ESRD/HD Signs/Symptoms as evidenced by estimated PO intake meeting< 75% of estimated energy needs > 3 months; Mild muscle wasting/ fat loss evident per physical exam in orbital, clavicle, acromion, and temporal areas. Status Active Problem Recommendation Dietitian Recommendations/Changes recommend renal-general diet when medically indicated; nepro carbsteady ONS 120mL 4x/ day w/medpass when diet advanced. Will monitor labs and adjust/liberalize diet as indicated when diet is advanced. Lab / Micro Data Result Diagrams: 11/12/22 05:45 11/10/22 05:20 Labs: Laboratory Results - last 24 hr 11/10/22 08:22: Crossmatch See Detail 11/12/22 05:45: WBC 11.1 H, RBC 3.15 L, Hgb 9.0 L, Hct 27.9 L, MCV 88.6, MCH 28.6, MCHC 32.3, RDW Std Deviation 53.6 H, RDW Coeff of Destiny 17.0 H, Plt Count 230, MPV 8.5, Immature Gran % (Auto) 1.300 H, Neut % (Auto) 80.0 H, Lymph % (Auto) 7.9 L, Gillespie % (Auto) 8.7, Eos % (Auto) 1.7, Baso % (Auto) 0.4, Absolute Neuts (auto) 8.9 H, Absolute Lymphs (auto) 0.88, Nucleated RBC % 0 Micro: Microbiology 11/09/22 11:25 Stool Stool Occult Blood (JOHNSON) - Final Occult Blood Positive Rhythm Strip Rhythm Strip: A-fib Physical Exam Narrative alert and no apparent distress Constitutional Narrative: Patient appears much older than her stated age, she appears frail and unwell General Appearance: cooperative, well kempt and well developed Orientation / Consciousness: awake, oriented to person and oriented to place, she is somnolent this morning HEENT normocephalic, head/scalp atraumatic, hearing grossly normal bilaterally and moist oral mucous membranes Eyes PERRL, EOMs intact bilaterally and conjunctivae normal Neck supple, no JVD, thyroid normal and no carotid bruits General: trachea midline Resp normal respiratory effort, no retractions, no use of accessory muscles and clear to auscultation bilaterally Auscultation: Negative for rales, rhonchi or wheezes Cardio regular rate, regular rhythm, S1 normal heart sound, S2 normal heart sound, 2/6 systolic murmur is noted at the apex and left sternal border, no rub and no gallops GI normal to inspection, nondistended, normoactive bowel sounds, soft to palpation, non-tender and non-distended Extremity no clubbing, cyanosis or edema Skin no rashes or lesions noted General Skin Exam: no breakdown Neuro oriented x3, CN's II-XII intact bilaterally, moves all extremities, no focal motor deficits and no sensory deficits noted Sensorium / Orientation: awake, alert, oriented to person and oriented to place Speech: speech normal Psych Psych Narrative: Patient has flat affect Assessment & Plan Assessment/Plan (1) GI bleed requiring more than 4 units of blood in 24 hours, ICU, or surgery: (2) Anemia: PLAN: Plan 1. 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-patient's hemoglobin is stabilized at this time #2 chronic hypoxic respiratory failure-patient is currently on 4 L of oxygen via nasal cannula, pulse ox will be monitored #3 chronic obstructive pulmonary disease-patient was placed on aerosol treatments, she will be seen by pulmonary medicine #4 end-stage renal disease requiring dialysis-nephrology was consulted, next dialysis is next Sunday #5 paroxysmal atrial fibrillation-patient will be kept off Eliquis at this time, patient is in sinus rhythm at this time #6 hypercoagulable state secondary to paroxysmal atrial fibrillation-patient will need to remain off her Eliquis for now due to upper GI bleed. I do not think it is blake to restart her Eliquis #7 chronic pain syndrome-patient will be given IV morphine as needed for pain #8 hyperkalemia-labs will be monitored as necessary #9 generalized debility secondary to multiple medical problems-patient will need to return to a longterm facility after she is discharged from the hospital here Total clinical time spent by myself addressing patient's medical issues, reviewing all of her data, and collaborating with patient's care team: 37 minutes Charges/Coding Visit Charges Inpatient E&M: 90707 Subs Hosp L2
[2022-11-12] MEDS: Metoclopramide 10 MG/2 ML Vial 5 MG IV ×3 (11:44→23:43)
--- NOTE | 2022-11-12 15:01 | PN_ITS ---
Subjective Subjective Patient is tolerating a diet and she is not showing any signs of GI bleeding at this time. Objective Data Objective Data Vital Signs: Vital Signs Temp Pulse Resp BP Pulse Ox O2 Del Method O2 Flow Rate 98.5 F 68 16 103/63 100 Nasal Cannula 3 11/12/22 14:10 11/12/22 14:10 11/12/22 14:10 11/12/22 14:10 11/12/22 14:10 11/12/22 14:10 11/12/22 14:10 Oxygen Flow Rate (L/min) 3 Oxygen Delivery Method Nasal Cannula Weight: 145 lb 1.027 oz Body Mass Index (BMI) 21.4 Intake & Output: Intake and Output for Last 24 Hours 11/10/22 11/11/22 11/12/22 23:59 23:59 23:59 Intake Total 1849.66 / 2299.66 1430 / 1430 600 / 600 Output Total 3300 / 3300 0 / 0 0 / 0 Balance -1450.34 / -1000.34 1430 / 1430 600 / 600 Medical Nutrition Assessment Dietitian: Malnutrition Criteria Met Start: 11/10/22 08:22 Freq: Status: Active Protocol: Document 11/12/22 11:31 AG (Rec: 11/12/22 11:31 AG [id number]) Nutrition Malnutrition Evidence of Malnutrition Exists Yes Malnutrition (moderate): Chronic Evidenced By Suboptimal Energy Intake ( Moderate),Physical Changes ( Mild) Clinical Problem Chronic Disease or Condition Related Malnutrition Etiology moderate, chronic malnutrition related to inadequate energy intake w/ increased energy needs d/t ESRD/HD Signs/Symptoms as evidenced by estimated PO intake meeting< 75% of estimated energy needs > 3 months; Mild muscle wasting/ fat loss evident per physical exam in orbital, clavicle, acromion, and temporal areas. Status Active Problem Recommendation Dietitian Recommendations/Changes continue renal-general diet; will add nepro carbsteady ONS 240mL w/ dinner as preferred by pt Lab / Micro Data Result Diagrams: 11/12/22 05:45 11/10/22 05:20 Labs: Laboratory Results - last 24 hr 11/12/22 05:45: WBC 11.1 H, RBC 3.15 L, Hgb 9.0 L, Hct 27.9 L, MCV 88.6, MCH 28.6, MCHC 32.3, RDW Std Deviation 53.6 H, RDW Coeff of Destiny 17.0 H, Plt Count 230, MPV 8.5, Immature Gran % (Auto) 1.300 H, Neut % (Auto) 80.0 H, Lymph % (Auto) 7.9 L, [place] % (Auto) 8.7, Eos % (Auto) 1.7, Baso % (Auto) 0.4, Absolute Neuts (auto) 8.9 H, Absolute Lymphs (auto) 0.88, Nucleated RBC % 0 Micro: Microbiology 11/09/22 11:25 Stool Stool Occult Blood (JOHNSON) - Final Occult Blood Positive Rhythm Strip Rhythm Strip: A-fib Physical Exam Narrative alert and no apparent distress Constitutional Narrative: Patient appears much older than her stated age, she appears frail and unwell General Appearance: cooperative, well kempt and well developed Orientation / Consciousness: awake, oriented to person and oriented to place, she is somnolent this morning HEENT normocephalic, head/scalp atraumatic, hearing grossly normal bilaterally and moist oral mucous membranes Eyes PERRL, EOMs intact bilaterally and conjunctivae normal Neck supple, no JVD, thyroid normal and no carotid bruits General: trachea midline Resp normal respiratory effort, no retractions, no use of accessory muscles and clear to auscultation bilaterally Auscultation: Negative for rales, rhonchi or wheezes Cardio regular rate, regular rhythm, S1 normal heart sound, S2 normal heart sound, 2/6 systolic murmur is noted at the apex and left sternal border, no rub and no gallops GI normal to inspection, nondistended, normoactive bowel sounds, soft to palpation, non-tender and non-distended Extremity no clubbing, cyanosis or edema Skin no rashes or lesions noted General Skin Exam: no breakdown Neuro oriented x3, CN's II-XII intact bilaterally, moves all extremities, no focal motor deficits and no sensory deficits noted Sensorium / Orientation: awake, alert, oriented to person and oriented to place Speech: speech normal Psych Psych Narrative: Patient has flat affect Assessment & Plan Assessment/Plan (1) Anemia in chronic illness: (2) Acute blood loss anemia: (3) Occult GI bleeding: (4) Atrial fibrillation: PLAN: Plan 72 female history of end-stage renal disease on dialysis, type 2 diabetes mellitus, COPD congestive heart failure, paroxysmal atrial fibrillation (on anticoagulation), hypertension who presented to [facility] with shortness of breath. She was noted to have worsened anemia and was diagnosed with acute blood loss anemia. #Acute on chronic anemia likely due to GI bleed Hemoglobin 5.6 on admission Transfused 2 units FOBT was positive Eliquis held On IV pantoprazole She underwent egd and colonoscopy. Bleeding areas were treated endoscopically. 11/11: hemoglobin stable #Paroxysmal atrial fibrillation On atenolol Eliquis held secondary to GI bleed 11/12: hemoglobin continues to be stable. She will need to have an outpatient capsule study. #DVT ppx: SCDs Charges/Coding Visit Charges Inpatient E&M: 68347 Subs Hosp L3
[2022-11-12] MEDS: Gabapentin 300 MG Capsule PO (21:15)
[2022-11-12] MEDS: Mirtazapine 30 MG Tablet PO (21:16)
[2022-11-12] MEDS: Menthol/Lanolin/Calamine/Znox 113 GM Tube 1 APPLIC TOPICAL (21:16)
[2022-11-13] VITALS (10 sets, daily range): BP systolic 114–151; BP diastolic 66–79; PULSE 63–87; RESP 16–20; TEMP 36.6–37.2; O2SAT 95–100; BMI 22.2
[2022-11-13] MEDS: Metoclopramide 10 MG/2 ML Vial 5 MG IV ×2 (05:55→13:55)
[2022-11-13] MEDS: hydrALAZINE 50 MG Tablet PO ×2 (05:56→13:54)
[2022-11-13] MEDS: Ipratropium/Albuterol Sulfate 3 ML AMPUL.NEB INHALATION ×3 (06:01→14:47)
--- NOTE | 2022-11-13 07:00 | PN_ITS ---
Subjective Subjective Patient continues to do well without any signs or symptoms of GI bleeding. Objective Data Objective Data Vital Signs: Vital Signs Temp Pulse Resp BP Pulse Ox O2 Del Method O2 Flow Rate 98 F 79 20 H 148/66 H 99 Nasal Cannula 2 11/13/22 13:51 11/13/22 14:47 11/13/22 14:47 11/13/22 13:54 11/13/22 13:51 11/13/22 13:51 11/13/22 13:51 Oxygen Flow Rate (L/min) 2 Oxygen Delivery Method Nasal Cannula Weight: 150 lb 5.684 oz Body Mass Index (BMI) 22.2 Intake & Output: Intake and Output for Last 24 Hours 11/11/22 11/12/22 11/13/22 23:59 23:59 23:59 Intake Total 1430 / 1430 1350 / 1350 540 / 540 Output Total 0 / 0 0 / 0 1999 Balance 1430 / 1430 1350 / 1350 -1460 / -1460 Lab / Micro Data Result Diagrams: 11/12/22 05:45 11/10/22 05:20 Labs: Laboratory Results - last 24 hr 11/09/22 11:35: Diff Path Review Reviewed 11/10/22 05:20: Diff Path Review Reviewed 11/10/22 08:22: Crossmatch See Detail Micro: Microbiology 11/09/22 11:25 Stool Stool Occult Blood (JOHNSON) - Final Occult Blood Positive Rhythm Strip Rhythm Strip: A-fib Physical Exam Narrative Alert and oriented x3, no apparent distress S1, S2, rhythm irregular, rate controlled Lung sounds diminished breath sounds. Abdomen soft, nontender No pitting edema noted to bilateral lower legs or feet Tunneled HD catheter dressing clean, dry and intact Assessment & Plan Assessment/Plan (1) Anemia in chronic illness: (2) Acute blood loss anemia: (3) Occult GI bleeding: (4) Atrial fibrillation: PLAN: Plan 72 female history of end-stage renal disease on dialysis, type 2 diabetes mellitus, COPD congestive heart failure, paroxysmal atrial fibrillation (on anticoagulation), hypertension who presented to [facility] with shortness of breath. She was noted to have worsened anemia and was diagnosed with acute blood loss anemia. #Acute on chronic anemia likely due to GI bleed Hemoglobin 5.6 on admission Transfused 2 units FOBT was positive Eliquis held On IV pantoprazole She underwent egd and colonoscopy. Bleeding areas were treated endoscopically. 11/11: hemoglobin stable #Paroxysmal atrial fibrillation On atenolol Eliquis held secondary to GI bleed 11/12: hemoglobin continues to be stable. She will need to have an outpatient capsule study. #DVT ppx: SCDs Charges/Coding Visit Charges Inpatient E&M: 18491 [facility] Hosp L3
[2022-11-13] MEDS: oxyCODONE 5 MG Tablet 10 MG PO (07:05)
[2022-11-13] MEDS: Calcitriol 0.25 MCG Capsule PO (08:09)
[2022-11-13] MEDS: Pantoprazole Sodium 40 MG Tablet PO (08:09)
[2022-11-13] MEDS: Calcium Acetate 667 MG Capsule 2001 MG PO ×2 (08:09→13:53)
[2022-11-13] MEDS: Folic Acid/Vitamin B Comp W-C 1 Capsule 1 CAP PO (08:09)
[2022-11-13] MEDS: DULoxetine Hcl 60 MG Capsule PO (08:10)
--- NOTE | 2022-11-13 08:40 | PCM.PN.HOSP ---
Reason for Visit Reason for Visit: Diagnoses Acute posthemorrhagic anemia (11/09/22) Anemia in other chronic diseases classified elsewhere (11/09/22) Anemia, unspecified (11/09/22) Hyperkalemia (11/09/22) Nicotine dependence, unspecified, uncomplicated (11/09/22) Non-ST elevation (NSTEMI) myocardial infarction (11/09/22) Paroxysmal atrial fibrillation (11/09/22) Unspecified atrial fibrillation (11/09/22) Heart failure, unspecified (11/09/22) Chronic obstructive pulmonary disease, unspecified (11/09/22) Chronic respiratory failure with hypoxia (11/09/22) Acute and chronic respiratory failure, unspecified whether with hypoxia or hypercapnia (11/09/22) Gastrointestinal hemorrhage, unspecified (11/09/22) End stage renal disease (11/09/22) Other fecal abnormalities (11/09/22) [facility] (current) use of anticoagulants (11/09/22) Dependence on renal dialysis (11/09/22) Subjective Subjective Denies any complaints Objective Data Objective Data Vital Signs: Vital Signs Temp Pulse Resp BP Pulse Ox O2 Del Method O2 Flow Rate 37.1 C 68 16 148/70 H 95 Nasal Cannula 2 11/13/22 08:03 11/13/22 08:03 11/13/22 08:03 11/13/22 08:03 11/13/22 08:03 11/13/22 08:10 11/13/22 08:10 Oxygen Flow Rate (L/min) 2 Oxygen Delivery Method Nasal Cannula Weight: 68.2 kg Body Mass Index (BMI) 22.2 Intake & Output: Intake and Output for Last 24 Hours 11/11/22 11/12/22 11/13/22 23:59 23:59 23:59 Intake Total 1430 / 1430 1350 / 1350 140 / 140 Output Total 0 / 0 0 / 0 0 / 0 Balance 1430 / 1430 1350 / 1350 140 / 140 Medical Nutrition Assessment Dietitian: Malnutrition Criteria Met Start: 11/10/22 08:22 Freq: Status: Active Protocol: Document 11/12/22 11:31 AG (Rec: 11/12/22 11:31 AG [id number]) Nutrition Malnutrition Evidence of Malnutrition Exists Yes Malnutrition (moderate): Chronic Evidenced By Suboptimal Energy Intake ( Moderate),Physical Changes ( Mild) Clinical Problem Chronic Disease or Condition Related Malnutrition Etiology moderate, chronic malnutrition related to inadequate energy intake w/ increased energy needs d/t ESRD/HD Signs/Symptoms as evidenced by estimated PO intake meeting< 75% of estimated energy needs > 3 months; Mild muscle wasting/ fat loss evident per physical exam in orbital, clavicle, acromion, and temporal areas. Status Active Problem Recommendation Dietitian Recommendations/Changes continue renal-general diet; will add nepro carbsteady ONS 240mL w/ dinner as preferred by pt Lab / Micro Data Result Diagrams: 11/12/22 05:45 11/10/22 05:20 Micro: Microbiology 11/09/22 11:25 Stool Stool Occult Blood (JOHNSON) - Final Occult Blood Positive Rhythm Strip Rhythm Strip: A-fib Physical Exam Const alert and no apparent distress HEENT head/scalp atraumatic and moist oral mucous membranes Resp normal respiratory effort, no retractions, no use of accessory muscles and clear to auscultation bilaterally Cardio regular rate, regular rhythm, S1 normal heart sound and S2 normal heart sound GI normal to inspection, nondistended, normoactive bowel sounds, soft to palpation, non-tender and non-distended Extremity normal to inspection Assessment & Plan Assessment/Plan (1) GI bleed requiring more than 4 units of blood in 24 hours, ICU, or surgery: PLAN: EGD on 11/10 showed 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 Injected. Treated w heater probe. Additionally, had congestive gastritis and erythematous duodenopathy Will need to have an outpt capsule endoscopy (2) Anemia: PLAN: 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-patient's hemoglobin is stabilized at this time Hg on admission was 5.4, now 9 (3) Acute on chronic respiratory failure with hypoxemia: PLAN: resolved chronic obstructive pulmonary disease-patient was placed on aerosol treatments, she will be seen by pulmonary medicine (4) Chronic pain: QUALIFIERS: Chronic pain type: other chronic pain Qualified Code(s): G89.29 - Other chronic pain PLAN: I reviewed OARRS. Patient has not received gabapentin since 09/13. Given fraility, numerous medical comorbidities, will discontinue Continue PRN oxycodone DC morphine (5) Debility: PLAN: generalized debility secondary to multiple medical problems-patient will need to return to a shelter facility after she is discharged from the hospital here PLAN: Plan Chronic conditions: chronic hypoxic respiratory failure-patient is currently on 2 L of oxygen via nasal cannula, pulse ox will be monitored end-stage renal disease requiring dialysis-nephrology was consulted, next dialysis is next Sunday paroxysmal atrial fibrillation-patient will be kept off Eliquis at this time, patient is in sinus rhythm at this time NSTEMI ruled out. Troponin only 23. Also had stress test earlier this month that was negative VTE prophylaxis: SCDs Disposition: Patient medically stable. Charges/Coding Visit Charges Inpatient E&M: 90532 Subs Hosp L2
--- NOTE | 2022-11-13 08:41 | PCM.PN.REN ---
Subjective Subjective Resting in bed. No complaints. No overnight events. States feeling better. Objective Data Objective Data Vital Signs: Vital Signs Temp Pulse Resp BP Pulse Ox O2 Del Method O2 Flow Rate 98.8 F 68 16 148/70 H 95 Nasal Cannula 2 11/13/22 08:03 11/13/22 08:03 11/13/22 08:03 11/13/22 08:03 11/13/22 08:03 11/13/22 08:10 11/13/22 08:10 Oxygen Flow Rate (L/min) 2 Oxygen Delivery Method Nasal Cannula Weight: 68.2 kg Body Mass Index (BMI) 22.2 Intake & Output: Intake and Output for Last 24 Hours 11/11/22 11/12/22 11/13/22 23:59 23:59 23:59 Intake Total 1430 / 1430 1350 / 1350 140 / 140 Output Total 0 / 0 0 / 0 0 / 0 Balance 1430 / 1430 1350 / 1350 140 / 140 Medical Nutrition Assessment Dietitian: Malnutrition Criteria Met Start: 11/10/22 08:22 Freq: Status: Active Protocol: Document 11/12/22 11:31 AG (Rec: 11/12/22 11:31 [id number]) Nutrition Malnutrition Evidence of Malnutrition Exists Yes Malnutrition (moderate): Chronic Evidenced By Suboptimal Energy Intake ( Moderate),Physical Changes ( Mild) Clinical Problem Chronic Disease or Condition Related Malnutrition Etiology moderate, chronic malnutrition related to inadequate energy intake w/ increased energy needs d/t ESRD/HD Signs/Symptoms as evidenced by estimated PO intake meeting< 75% of estimated energy needs > 3 months; Mild muscle wasting/ fat loss evident per physical exam in orbital, clavicle, acromion, and temporal areas. Status Active Problem Recommendation Dietitian Recommendations/Changes continue renal-general diet; will add nepro carbsteady ONS 240mL w/ dinner as preferred by pt Lab / Micro Data Result Diagrams: 11/12/22 05:45 11/10/22 05:20 Micro: Microbiology 11/09/22 11:25 Stool Stool Occult Blood (JOHNSON) - Final Occult Blood Positive Rhythm Strip Rhythm Strip: A-fib Physical Exam Narrative Alert and oriented x3, no apparent distress S1, S2, rhythm irregular, rate controlled Lung sounds diminished breath sounds. Abdomen soft, nontender No pitting edema noted to bilateral lower legs or feet Tunneled HD catheter dressing clean, dry and intact Assessment & Plan Assessment/Plan (1) End-stage renal disease on hemodialysis: (2) Anemia: (3) Acute hyperkalemia: PLAN: Plan This is a 72-year-old female with past medical history significant for ESRD on hemodialysis 4 times weekly at [facility] who was brought to the emergency room for evaluation of low hemoglobin. Hemoglobin in the emergency room 4.2. - ESRD on HD M/T/W/F schedule at [facility]. For dialysis today over 3.5 hours with UF around 2 L as patient/blood pressure tolerates on 2K bath. - Acute anemia -GI following. Hgb 9.0. Patient underwent EGD and colonoscopy: 3 bleeding colonic angiodysplastic lesions treated with heater probe. Off Eliquis and will be kept off eliquis. - history of HTN; bps acceptable - discharge planning in progress. Ok for discharge per renal when cleared by primary team.
[2022-11-13 09:15] LABS: Pathologist Review Reviewed
[2022-11-13 09:26] LABS: Pathologist Review Reviewed
--- NOTE | 2022-11-13 09:27 | CASEMGMT ---
Discharge Planning Updates sent to [facility] via [employer]. Patient will not need a pre-cert to return. Adele Roman
--- NOTE | 2022-11-13 12:22 | DIALYSIS ---
Hemodialysis completed, 3,5 hours on a 2 K bath. Fluid removed was 2 liters, Vital signs stable throughout treatment. Post VS 98.6, 130/73, 85,16 Next HD will be Sunday
--- NOTE | 2022-11-13 12:34 | CASEMGMT ---
Social Work Pt has POA for healthcare in summary tab of echart, w/LW provision checked. JENIFER Sherman
--- NOTE | 2022-11-13 13:23 | PCM.TXEXTCAR ---
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 Injected. Treated w heater probe. Additionally, had congestive gastritis and erythematous duodenopathy Will need to have an outpt capsule endoscopy (2) Anemia: Status: Acute Code(s): D64.9 - Anemia, unspecified Plan: 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-patient's hemoglobin is stabilized at this time Hg on admission was 5.4, now 9 (3) Acute on chronic respiratory failure with hypoxemia: Status: Chronic Code(s): J96.21 - Acute and chronic respiratory failure with hypoxia Plan: resolved chronic obstructive pulmonary disease-patient was placed on aerosol treatments, she will be seen by pulmonary medicine (4) Chronic pain: Status: Chronic Code(s): G89.29 - Other chronic pain Plan: I reviewed OARRS. Patient has not received gabapentin since 09/13. Given fraility, numerous medical comorbidities, will discontinue Continue PRN oxycodone DC morphine (5) Debility: Status: Acute Code(s): R53.81 - Other malaise Plan: generalized debility secondary to multiple medical problems-patient will need to return to a halfway facility after she is discharged from the hospital here Plan Chronic conditions: chronic hypoxic respiratory failure-patient is currently on 2 L of oxygen via nasal cannula, pulse ox will be monitored end-stage renal disease requiring dialysis-nephrology was consulted, next dialysis is next Sunday paroxysmal atrial fibrillation-patient will be kept off Eliquis at this time, patient is in sinus rhythm at this time NSTEMI ruled out. Troponin only 23. Also had stress test earlier this month that was negative VTE prophylaxis: SCDs Disposition: Patient medically stable. Allergies/Procedures Done in Hospital Allergies No Known Allergies Allergy (Verified 10/30/22 08:08) Procedures: Colonoscopy Type of Care/Length of Stay Estimated LOS: Convalescent Care Less Than 30 days Type of Care Needed: Skilled Rehab Potential: Fair Prognosis: Fair Additional Orders/Day of Discharge Day of Discharge: 11/13/22 Dietary and Speech Recommendations Dietitian Recommendations/Changes: continue renal-general diet; will add nepro carbsteady ONS 240mL w/ dinner as preferred by pt Discharge Plan Admission Admit Date/Time: 11/09/22 13:15 Primary Reason for Your Visit: GI bleed. Acute blood loss anemia Attending Provider: Stiven Mo Primary Care Provider: Yen Valdez SOLID TIRE FINISHER Consulting Providers: Vamsi Moya ; Steven Hollins ; Simone Yi ; Lorenzo Copeland ; Rosa Coello SOLID TIRE FINISHER ; Brittani Byrne ; Shar Wakefield Instructions Additional Instructions / Restrictions: Dialysis every Sunday, Sunday, Sunday. Discharge Orders/Prescriptions Prescriptions: Continued calcium acetate(phosphat bind) 667 mg Capsule 2,001 mg PO TIDCM dicyclomine 20 mg tablet 20 mg PO TID montelukast [Singulair] 10 mg Tablet 10 mg PO QHS midodrine 10 mg tablet 10 mg PO MOWEFR fluticasone propion-salmeterol [Advair Diskus] 500-50 mcg/dose Blister With Device 1 inh INHALATION BID Spiriva Respimat 2.5 mcg/actuation Mist 2 puff INHALATION DAILY duloxetine 60 mg capsule,delayed release(DR/EC) 60 mg PO DAILY polyethylene glycol 3350 [Miralax] 17 gram/dose powder 17 g PO DAILY carvedilol 25 mg tablet 25 mg PO BID pantoprazole 40 mg tablet,delayed release (DR/EC) 40 mg PO BID Lizabeth-Eliza 0.8 mg Tablet 1 tab PO DAILY calcitriol 0.25 mcg capsule 0.25 mcg PO MOWEFR hydralazine 100 MG tablet 50 mg PO TID 30 Days Qty: 0 0RF Rx Instructions: Hold for SBP less than 130 mmHg albuterol sulfate 90 mcg/actuation HFA aerosol inhaler 2 puff inhalation Q6H PRN (Reason: SOB) 30 Days Qty: 0 0RF mirtazapine 30 mg Tablet 30 mg PO QHS acetaminophen [Tylenol] 325 mg tablet 650 mg PO Q6H PRN (Reason: Pain) albuterol sulfate 2.5 mg /3 mL (0.083 %) solution for nebulization 2.5 mg inhalation Q2H PRN (Reason: SOB/Wheezing) amlodipine 5 mg tablet 5 mg PO DAILY ferrous sulfate [FeroSul] 325 mg (65 mg iron) tablet 325 mg PO QODAY sennosides-docusate sodium [Stool Softener-Stimulant Laxat] 8.6-50 mg tablet 2 tab PO BID PRN (Reason: CONSTIPATION ) oxycodone 10 mg Tablet 10 mg PO BID PRN (Reason: break through pain) 3 Days Qty: 6 0RF Held Eliquis 2.5 mg Tablet 2.5 mg PO BID Hold Instructions: Resume on 11/17/22. aspirin 81 mg tablet,delayed release (DR/EC) 81 mg PO DAILY Hold Instructions: Resume on 11/17/22. Discontinued gabapentin 600 mg tablet 600 mg PO MOWEFR gabapentin 300 mg capsule 300 mg PO SUTUTHSA prednisone 10 mg Tablet 10 mg PO DAILY Referrals / Follow Up: [facility] [Provider Group] - Within 1 Month Pulmonary Medicine [facility] [Provider Group] - 12/07/22 9:15 am Yen Valdez SOLID TIRE FINISHER, SOLID TIRE FINISHER-C [Primary Care Provider] - Within 2 Weeks Disposition Disposition (needs filled in before D/C Order can be placed): Halfway Facility (1) Chronic pain Qualifiers: Chronic pain type: other chronic pain Qualified Code(s): G89.29 - Other chronic pain
--- NOTE | 2022-11-13 13:33 | PCM.DC.SUM ---
Providers Date of Admission: 11/09/22 Primary Care Physician: JOE Angela Consultations 11/09/22 13:59 Consult: Gastroenterology Routine Consulting Provider: [facility] Reason for Consult: gi bleed EMERGENT Consult: No Notified: Yes Date Notified: 11/09/22 Time Notified: 13:33 Method of Notification: Verbal Consult: Child Psychometrist / Pulmonary Medicine Routine Consulting Provider: [facility] Reason for Consult: anemia, chronic resp failure EMERGENT Consult: No Notified: Yes Date Notified: 11/09/22 Time Notified: 13:33 Method of Notification: Verbal Consult: Nephrology Routine Consulting Provider: Brittani Byrne Reason for Consult: esrd EMERGENT Consult: No Notified: Yes Date Notified: 11/09/22 Time Notified: 13:33 Method of Notification: Verbal Reason For Visit: ACUTE ON CHRONIC ANEMIA / GI BLEED Diagnosis Discharge Diagnosis (1) GI bleed requiring more than 4 units of blood in 24 hours, ICU, or surgery: Status: Acute Code(s): K92.2 - Gastrointestinal hemorrhage, unspecified Plan: EGD on 11/10 showed 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 Injected. Treated w heater probe. Additionally, had congestive gastritis and erythematous duodenopathy and 3 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. Will need to have an outpt capsule endoscopy (2) Anemia: Status: Acute Code(s): D64.9 - Anemia, unspecified Plan: 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-patient's hemoglobin is stabilized at this time Hg on admission was 5.4, now 9 (3) Acute on chronic respiratory failure with hypoxemia: Status: Chronic Code(s): J96.21 - Acute and chronic respiratory failure with hypoxia Plan: resolved chronic obstructive pulmonary disease-patient was placed on aerosol treatments, she will be seen by pulmonary medicine (4) Chronic pain: Status: Chronic Code(s): G89.29 - Other chronic pain Qualifiers: Chronic pain type: other chronic pain Qualified Code(s): G89.29 - Other chronic pain Plan: I reviewed OARRS. Patient has not received gabapentin since 09/13. Given fraility, numerous medical comorbidities, will discontinue Continue PRN oxycodone DC morphine (5) Debility: Status: Acute Code(s): R53.81 - Other malaise Plan: generalized debility secondary to multiple medical problems-patient will need to return to a fpc facility after she is discharged from the hospital here Plan Chronic conditions: chronic hypoxic respiratory failure-patient is currently on 2 L of oxygen via nasal cannula, pulse ox will be monitored end-stage renal disease requiring dialysis-nephrology was consulted, next dialysis is next Sunday paroxysmal atrial fibrillation-patient will be kept off Eliquis at this time, patient is in sinus rhythm at this time. Resume eliquis in 96h. NSTEMI ruled out. Troponin only 23. Also had stress test earlier this month that was negative VTE prophylaxis: SCDs Disposition: Patient medically stable. Medications at Discharge Home Medications calcium acetate(phosphat bind) 667 mg capsule 2,001 mg PO TIDCM HEALTH MAINTENANCE 11/30/20 apixaban 2.5 mg tablet (Eliquis) 2.5 mg PO BID BLOOD THINNER 01/08/21 dicyclomine 20 mg tablet 20 mg PO TID IRRITABLE BOWELS 02/26/21 montelukast 10 mg tablet (Singulair) 10 mg PO QHS ALLERGIES 10/25/21 midodrine 10 mg tablet 10 mg PO MOWEFR BLOOD PRESSURE 02/23/22 duloxetine 60 mg capsule,delayed release 60 mg PO DAILY DEPRESSION 05/19/22 fluticasone 500 mcg-salmeterol 50 mcg/dose blistr powdr for inhalation (Advair Diskus) 1 inh inhalation BID SHORTNESS OF BREATH 05/19/22 polyethylene glycol 3350 17 gram/dose oral powder (Miralax) 17 g PO DAILY CONSTIPATION 05/19/22 tiotropium bromide 2.5 mcg/actuation mist for inhalation (Spiriva Respimat) 2 puff inhalation DAILY SHORTNESS OF BREATH 05/19/22 carvedilol 25 mg tablet 25 mg PO BID BLOOD PRESSURE 10/20/22 pantoprazole 40 mg tablet,delayed release 40 mg PO BID ACID REFLUX 10/20/22 calcitriol 0.25 mcg capsule 0.25 mcg PO MOWEFR SUPPLEMENT 10/30/22 vitamin B complex-vitamin C-folic acid 0.8 mg tablet (Lizabeth-Eliza) 1 tab PO DAILY SUPPLEMENT 10/30/22 albuterol sulfate 90 mcg/actuation aerosol inhaler 2 puff inhalation Q6H PRN SOB 30 days #0 grams 11/01/22 hydralazine 100 mg tablet 50 mg PO TID BLOOD PRESSURE 30 days #0 tabs 11/01/22 acetaminophen 325 mg tablet (Tylenol) 650 mg PO Q6H PRN Pain 11/09/22 albuterol sulfate 2.5 mg/3 mL (0.083 %) solution for nebulization 2.5 mg inhalation Q2H PRN SOB/Wheezing 11/09/22 amlodipine 5 mg tablet 5 mg PO DAILY BLOOD PRESSURE 11/09/22 aspirin 81 mg tablet,delayed release 81 mg PO DAILY HEART HEALTH 11/09/22 ferrous sulfate 325 mg (65 mg iron) tablet (FeroSul) 325 mg PO QODAY SUPPLEMENT 11/09/22 mirtazapine 30 mg tablet 30 mg PO QHS DEPRESSION 11/09/22 sennosides 8.6 mg-docusate sodium 50 mg tablet (Stool Softener-Stimulant Laxative) 2 tab PO BID PRN CONSTIPATION 11/09/22 oxycodone 10 mg tablet 10 mg PO BID PRN break through pain 3 days #6 tabs 11/13/22 Hospital Course Operations None Procedures Colonoscopy, Dialysis and EGD Summary of Care Provided Minutes Spent on Discharge: 32 Hospital Course: -year-old female presents with anemia. Hemoglobin was 5.4. Patient was transfused here. Currently hemoglobin is 9. Patient was found to have numerous areas of bleeding including 3 bleeding colonic angiodysplastic lesions that were injected and treated with heater probe, 3 angiodysplastic lesions in the stomach that were injected and treated with heater probe. Patient was transfused a total of 4 units packed red blood cells. Hemoglobin has remained stable. Patient did have hemodialysis while she was here in the hospital which she tolerated well. Patient to be discharged today. Patient will cold off on her apixaban and aspirin for the next 96 hours. Medical Records Data Medical Nutrition Assessment Dietitian: Malnutrition Criteria Met Start: 11/10/22 08:22 Freq: Status: Active Protocol: Document 11/12/22 11:31 AG (Rec: 11/12/22 11:31 AG [id number]) Nutrition Malnutrition Evidence of Malnutrition Exists Yes Malnutrition (moderate): Chronic Evidenced By Suboptimal Energy Intake ( Moderate),Physical Changes ( Mild) Clinical Problem Chronic Disease or Condition Related Malnutrition Etiology moderate, chronic malnutrition related to inadequate energy intake w/ increased energy needs d/t ESRD/HD Signs/Symptoms as evidenced by estimated PO intake meeting< 75% of estimated energy needs > 3 months; Mild muscle wasting/ fat loss evident per physical exam in orbital, clavicle, acromion, and temporal areas. Status Active Problem Recommendation Dietitian Recommendations/Changes continue renal-general diet; will add nepro carbsteady ONS 240mL w/ dinner as preferred by pt Weight / BMI Weight Weight: 68.2 kg Body Mass Index (BMI) 22.2 ABG / Lab / Microbiology Data Result Diagrams: 11/12/22 05:45 11/10/22 05:20 Laboratory: Laboratory Results - last 24 hr 11/09/22 11:35: Diff Path Review Reviewed 11/10/22 05:20: Diff Path Review Reviewed 11/10/22 08:22: Crossmatch See Detail Microbiology: Microbiology 11/09/22 11:25 Stool Stool Occult Blood ([facility]NSON) - Final Occult Blood Positive Meaningful Use Info Meaningful Use Diagnoses (Choose all that apply): None applicable Discharge Plan Admission Admit Date/Time: 11/09/22 13:15 Primary Reason for Your Visit: GI bleed. Acute blood loss anemia Attending Provider: Stiven Mo Primary Care Provider: Yen Valdez KNITTER WIRE MESH Consulting Providers: Vamsi Moya ; Steven Hollins ; Simone Yi ; Lorenzo Copeland ; Rosa Coello KNITTER WIRE MESH ; Brittani Byrne ; Shar Wakefield Instructions Additional Instructions / Restrictions: Dialysis every Sunday, Sunday, Sunday. Discharge Orders/Prescriptions Prescriptions: Continued calcium acetate(phosphat bind) 667 mg Capsule 2,001 mg PO TIDCM dicyclomine 20 mg tablet 20 mg PO TID montelukast [Singulair] 10 mg Tablet 10 mg PO QHS midodrine 10 mg tablet 10 mg PO MOWEFR fluticasone propion-salmeterol [Advair Diskus] 500-50 mcg/dose Blister With Device 1 inh INHALATION BID Spiriva Respimat 2.5 mcg/actuation Mist 2 puff INHALATION DAILY duloxetine 60 mg capsule,delayed release(DR/EC) 60 mg PO DAILY polyethylene glycol 3350 [Miralax] 17 gram/dose powder 17 g PO DAILY carvedilol 25 mg tablet 25 mg PO BID pantoprazole 40 mg tablet,delayed release (DR/EC) 40 mg PO BID Lizabeth-Eliza 0.8 mg Tablet 1 tab PO DAILY calcitriol 0.25 mcg capsule 0.25 mcg PO MOWE hydralazine 100 MG tablet 50 mg PO TID 30 Days Qty: 0 0RF Rx Instructions: Hold for SBP less than 130 mmHg albuterol sulfate 90 mcg/actuation HFA aerosol inhaler 2 puff inhalation Q6H PRN (Reason: SOB) 30 Days Qty: 0 0RF mirtazapine 30 mg Tablet 30 mg PO QHS acetaminophen [Tylenol] 325 mg tablet 650 mg PO Q6H PRN (Reason: Pain) albuterol sulfate 2.5 mg /3 mL (0.083 %) solution for nebulization 2.5 mg inhalation Q2H PRN (Reason: SOB/Wheezing) amlodipine 5 mg tablet 5 mg PO DAILY ferrous sulfate [FeroSul] 325 mg (65 mg iron) tablet 325 mg PO QODAY sennosides-docusate sodium [Stool Softener-Stimulant Laxat] 8.6-50 mg tablet 2 tab PO BID PRN (Reason: CONSTIPATION ) oxycodone 10 mg Tablet 10 mg PO BID PRN (Reason: break through pain) 3 Days Qty: 6 0RF Held Eliquis 2.5 mg Tablet 2.5 mg PO BID Hold Instructions: Resume on 11/17/22. aspirin 81 mg tablet,delayed release (DR/EC) 81 mg PO DAILY Hold Instructions: Resume on 11/17/22. Discontinued gabapentin 600 mg tablet 600 mg PO MOWE gabapentin 300 mg capsule 300 mg PO SUTUTHSA prednisone 10 mg Tablet 10 mg PO DAILY Referrals / Follow Up: [facility] [Provider Group] - Within 1 Month Pulmonary Medicine [facility] [Provider Group] - 12/07/22 9:15 am Yen Valdez KNITTER WIRE MESH, KNITTER WIRE MESH-C [Primary Care Provider] - Within 2 Weeks Disposition Disposition (needs filled in before D/C Order can be placed): [facility] Facility Charges/Coding Visit Charges Inpatient E&M: 60051 Disch Hosp >30min
--- NOTE | 2022-11-13 13:46 | CASEMGMT ---
Patient will be headed back to [facility] today. MARIA GUADALUPE spoke with Imelda at [facility] and let her know patient will be returning today. [facility] could pick patient up at 2:15. She would have to be at the main entrance at 2:15. MARIA GUADALUPE notified physician and RN. Evy Paredes SHAPER SETTERWill GONZALEZ
--- NOTE | 2022-11-13 13:50 | PHA.DC.MR ---
Pharmacy Service has performed discharge medication reconciliation for this patient. The patient's discharge medication list was reviewed for discrepancies and discrepancies were resolved. Home Medications calcium acetate(phosphat bind) 667 mg capsule 2,001 mg PO TIDCM HEALTH MAINTENANCE 11/30/20 apixaban 2.5 mg tablet (Eliquis) 2.5 mg PO BID BLOOD THINNER 01/08/21 dicyclomine 20 mg tablet 20 mg PO TID IRRITABLE BOWELS 02/26/21 montelukast 10 mg tablet (Singulair) 10 mg PO QHS ALLERGIES 10/25/21 midodrine 10 mg tablet 10 mg PO MOWEFR BLOOD PRESSURE 02/23/22 duloxetine 60 mg capsule,delayed release 60 mg PO DAILY DEPRESSION 05/19/22 fluticasone 500 mcg-salmeterol 50 mcg/dose blistr powdr for inhalation (Advair Diskus) 1 inh inhalation BID SHORTNESS OF BREATH 05/19/22 polyethylene glycol 3350 17 gram/dose oral powder (Miralax) 17 g PO DAILY CONSTIPATION 05/19/22 tiotropium bromide 2.5 mcg/actuation mist for inhalation (Spiriva Respimat) 2 puff inhalation DAILY SHORTNESS OF BREATH 05/19/22 carvedilol 25 mg tablet 25 mg PO BID BLOOD PRESSURE 10/20/22 pantoprazole 40 mg tablet,delayed release 40 mg PO BID ACID REFLUX 10/20/22 calcitriol 0.25 mcg capsule 0.25 mcg PO MOWEFR SUPPLEMENT 10/30/22 vitamin B complex-vitamin C-folic acid 0.8 mg tablet (Lizabeth-Eliza) 1 tab PO DAILY SUPPLEMENT 10/30/22 albuterol sulfate 90 mcg/actuation aerosol inhaler 2 puff inhalation Q6H PRN SOB 30 days #0 grams 11/01/22 hydralazine 100 mg tablet 50 mg PO TID BLOOD PRESSURE 30 days #0 tabs 11/01/22 acetaminophen 325 mg tablet (Tylenol) 650 mg PO Q6H PRN Pain 11/09/22 albuterol sulfate 2.5 mg/3 mL (0.083 %) solution for nebulization 2.5 mg inhalation Q2H PRN SOB/Wheezing 11/09/22 amlodipine 5 mg tablet 5 mg PO DAILY BLOOD PRESSURE 11/09/22 aspirin 81 mg tablet,delayed release 81 mg PO DAILY HEART HEALTH 11/09/22 ferrous sulfate 325 mg (65 mg iron) tablet (FeroSul) 325 mg PO QODAY SUPPLEMENT 11/09/22 mirtazapine 30 mg tablet 30 mg PO QHS DEPRESSION 11/09/22 sennosides 8.6 mg-docusate sodium 50 mg tablet (Stool Softener-Stimulant Laxative) 2 tab PO BID PRN CONSTIPATION 11/09/22 oxycodone 10 mg tablet 10 mg PO BID PRN break through pain 3 days #6 tabs 11/13/22
[2022-11-13] MEDS: Carvedilol 25 MG Tablet PO (13:54)
[2022-11-13] MEDS: amLODIPine 5 MG Tablet PO (13:54)
[2022-11-13] MEDS: Menthol/Lanolin/Calamine/Znox 113 GM Tube 1 APPLIC TOPICAL (13:54)
--- NOTE | 2022-11-13 13:56 | CASEMGMT ---
MARIA GUADALUPE received a call from Imelda at [facility] and their cattle driver will be here at [facility] at 3p. MARIA GUADALUPE notified REGGIE. Evy Paredes RESIDENTIAL NURSE COOKY MACHINE OPERATOR
--- NOTE | 2022-11-13 14:33 | CASEMGMT ---
Discharge Planning Discharge orders and signed med list/scripts sent to [facility] via [employer]. Adele Roman
--- NOTE | 2022-11-13 14:59 | NURSING ---
called to give report at [facility] nurse states she will have to call back for report
== END 2022-11-13 15:16 | disposition skilled nursing facility (03) | DRG 377 ==
LOC: ED 11:23 → ICU 13:16 → PCU 11-11 17:15
PROVIDERS: Internal Medicine; Internal Medicine Critical Care Medicine; Internal Medicine Gastroenterology; Admitting Provider Internal Medicine; Emergency Provider Emergency Medicine; PCP Nurse Practitioner Adult Health
PROC: 0DJD8ZZ Inspection of Lower Intestinal Tract, Via Natural or Artificial Opening Endoscopic (ICD-10-PCS; CPT 45378; principal; 2022-11-10 16:25)
DX: K31.811 Angiodysplasia of stomach and duodenum with bleeding (principal); J96.21 Acute and chronic respiratory failure with hypoxia; N18.6 End stage renal disease; E44.0 Moderate protein-calorie malnutrition; D62 Acute posthemorrhagic anemia; I13.2 Hypertensive heart and chronic kidney disease with heart failure and with stage 5 chronic kidney disease, or end stage renal disease; D68.69 Other thrombophilia; I50.22 Chronic systolic (congestive) heart failure; K55.21 Angiodysplasia of colon with hemorrhage; D63.1 Anemia in chronic kidney disease; E11.22 Type 2 diabetes mellitus with diabetic chronic kidney disease; Z99.2 Dependence on renal dialysis; I48.0 Paroxysmal atrial fibrillation; J43.9 Emphysema, unspecified; I25.10 Atherosclerotic heart disease of native coronary artery without angina pectoris; E87.5 Hyperkalemia; K21.00 Gastro-esophageal reflux disease with esophagitis, without bleeding; E78.00 Pure hypercholesterolemia, unspecified; K31.89 Other diseases of stomach and duodenum; I25.2 Old myocardial infarction; D12.0 Benign neoplasm of cecum; K29.61 Other gastritis with bleeding; K57.31 Diverticulosis of large intestine without perforation or abscess with bleeding; G89.4 Chronic pain syndrome; R53.81 Other malaise; Z68.22 Body mass index [BMI] 22.0-22.9, adult; Z90.49 Acquired absence of other specified parts of digestive tract; Z99.81 Dependence on supplemental oxygen; Z79.01 Long term (current) use of anticoagulants; Z79.82 Long term (current) use of aspirin; Z79.899 Other long term (current) drug therapy; Z86.73 Personal history of transient ischemic attack (TIA), and cerebral infarction without residual deficits; Z87.891 Personal history of nicotine dependence
CPT/HCPCS: 36415; 71045; 80048; 80076; 82140; 82274; 84484; 85014; 85018; 85025; 85610; 85730; 86850; 86900; 86901; 86920; 86922; 88305; 90937; 93005; 94640; 94762; 97162; 97166; 97535; 97802; 97803; 99252; 99285; J7030; J7168; P9016; P9040; A4216; G0257; G0463; J1940

== ENCOUNTER → 2022-12-05 | Outpatient (REF) | payer MEDICARE, MEDICAID, SELFPAY ==
[2022-12-05 06:56] LABS: Mucous, Urine 0 SEEN /hpf (<or=2+)
[2022-12-05 07:00] LABS: Hematocrit 29.1 % (37-47); Hemoglobin 8.7 g/dL (12.0-15.0); Mean Corp Hgb Conc 29.9 g/dL (32-36); Mean Corpuscular Hgb 26.9 pg (27.0-32.0); Mean Corpuscular Volume 89.8 fL (81-99); Mean Platelet Vol. 8.5 fl (6.2-12.0); Platelet Count 274 K/mm3 (150-450); RBC Distribution Width CV 15.9 % (11.6-14.6); RBC Distribution Width SD 51.6 fl (35.1-43.9); Red Blood Count 3.24 M/mm3 (4.2-5.4); White Blood Count 10.1 K/mm3 (4.4-11.0)
[2022-12-05 07:20] LABS: Color, Urine Yellow (Yellow); Glucose, Dipstick Normal (Normal); Ketone-Dipstick Negative (Negative); Leukocyte Esterase-Dipstick 100 /ul (Negative); Nitrite-Dipstick Negative (Negative); Occult Blood-Urine 250 /ul (Negative); Protein-Dipstick 100 mg/dl (Negative); Urine Clarity Clear (Clear); Urine Urobilinogen Normal (Normal)
[2022-12-05 07:30] LABS: Urine Bilirubin Dipstick 3 mg/dL (Negative)
[2022-12-05 07:54] LABS: Anion Gap 5 (5-15); BUN 40 mg/dL (7-18); BUN/Creat Ratio 5.2 RATIO (10-20); Calcium,Total 11.8 mg/dL (8.5-10.1); Chloride 99 mmol/L (98-107); Creatinine, Serum 7.71 mg/dL (0.55-1.02); EST Glomerular Filtration Rate 6 mL/min (>60); Est Glom Filt Rate - Afr Amer 7 mL/min (>60); Glucose 75 mg/dL (74-106); Potassium 4.6 mmol/L (3.5-5.1); Sodium Level 136 mmol/L (136-145)
[2022-12-05 08:09] LABS: Bacteria 1+ /hpf (None Seen); Calcium Oxalate Crystals Ur 1+ /hpf (<or=2+); Red Blood Cells-Urine 25-50 SEEN /hpf (0-5); Squamous Epithelial Cells - UA 5-10 SEEN /hpf (5-10); White Blood Cells 10-25 SEEN /hpf (0-5)
== END ==
LOC: OLS.SW 05:00
PROVIDERS: PCP Nurse Practitioner Adult Health; Visit Provider Family Medicine
DX: E11.22 Type 2 diabetes mellitus with diabetic chronic kidney disease (principal); N18.6 End stage renal disease; D63.1 Anemia in chronic kidney disease; R30.0 Dysuria
CPT/HCPCS: 36415; 80048; 81001; 85027; 87086; 87088

== ENCOUNTER 2022-12-10 13:55 | Inpatient (IN) | payer MEDICARE, MEDICAID, SELFPAY ==
[2022-12-10] VITALS (7 sets, daily range): BP systolic 155–174; BP diastolic 59–70; PULSE 56–62; RESP 15–18; TEMP 36.4–36.7; O2SAT 98–100; BMI 19.8; BMI 18.8
--- NOTE | 2022-12-10 14:17 | CT_ITS ---
STUDY: CT BRAIN WITHOUT CONTRAST REASON FOR EXAM: Female, 72 years old. [place] Individualized dose optimization techniques were used for this CT. TECHNIQUE: Transaxial CT imaging of the brain was performed without administration of intravenous contrast material. COMPARISON: 05.31.22 FINDINGS: There are calcifications around the carotid artery. These are noted in the cavernous carotid arteries. Normal calvarium. Normal soft tissues. There is mild cerebral atrophy with widening of the extra-axial spaces and ventricular dilatation. There are areas of decreased attenuation within the white matter tracts of the supratentorial brain, consistent with microvascular disease changes. Normal basal ganglia and thalami. Normal brainstem. There is mild cerebellar atrophy. There is no intracranial hemorrhage. There are no findings of an acute ischemic infarction. Normal visualized paranasal sinuses. ASPECTS Score for Acute Strokes: 04/10 CT/Brain/Head without Contrast IMPRESSION: There are no acute findings. Chronic involutional changes of the brain. Electronically Signed: Lee Dennison MD at 15:38 EDT ,
--- NOTE | 2022-12-10 14:17 | EKG12_ITS ---
Test Reason : AMS Blood Pressure : / mmHG Vent. Rate : 054 BPM Atrial Rate : 054 BPM P-R Int : 180 ms QRS Dur : 090 ms QT Int : 456 ms P-R-T Axes : 021 -16 006 degrees QTc Int : 432 ms Sinus bradycardia Minimal voltage criteria for LVH, may be normal variant ( Neville product ) Nonspecific ST abnormality Abnormal ECG Confirmed by BAHMAN LEMON, EDWINA ([id number]), news copy editor BIRDIE TORRES ([id number]) on 12/12/2022 7:49:17 AM Referred By: Confirmed By:SUAD RUGGIERO MD
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
[2022-12-10 14:30] LABS: Absolute Lymphocyte Count 1.12 X10^3/uL (0.83-4.51); Absolute Neutrophil Count 8.2 X10^3/uL (2.0-7.7); Basophil# 0.07 X10^3/uL; Basophil% 0.7 % (0-1); Eosinophil# 0.18 X10^3/uL; Eosinophils% 1.7 % (0-5); Hemoglobin 11.3 g/dL (12.0-15.0); Lymphocyte # 1.12 X10^3/ul (0.83-4.51); Lymphocyte % 10.8 % (19-41); Mean Corp Hgb Conc 30.5 g/dL (32-36); Mean Corpuscular Hgb 27.1 pg (27.0-32.0); Mean Corpuscular Volume 88.7 fL (81-99); Mean Platelet Vol. 8.5 fl (6.2-12.0); Monocyte# 0.78 X10^3/uL; Monocyte% 7.5 % (0-10); NRBC Flagged by Analyzer 0.2 % (0-5); Neutrophil # 8.18 X10^3/uL (2.7-7.7); Neutrophil % 78.6 % (47-70); Platelet Count 246 K/mm3 (150-450); RBC Distribution Width SD 54.9 fl (35.1-43.9); Red Blood Count 4.17 M/mm3 (4.2-5.4); White Blood Count 10.4 K/mm3 (4.4-11.0)
--- NOTE | 2022-12-10 14:50 | RAD_ITS ---
STUDY: XR Chest 1 View 12/10/2022 2:45 PM REASON FOR EXAM: Female, 72 years old. PAIN MS Change COMPARISON: 11/09/2022 TECHNIQUE: XR Chest 1 View FINDINGS: There are bilateral pleural effusions. There are bilateral infiltrates. There is a right Port-A-Cath and/or mediport in place. The tip is in the superior vena cava. There is no pneumothorax. Normal heart size. Normal mediastinum. Normal farhan. Prominent appearing increased interstitial lung markings. Normal visualized pulmonary arteries. There is atherosclerotic calcification of the aortic arch with tortuosity. There are diffuse degenerative changes of the visualized thoracic spine. There is degenerative osteoarthritis of the bilateral shoulders. There is no demonstrated abnormality of the visualized soft tissue structures of the upper abdomen. RAD/Chest 1 View (Portable) IMPRESSION: Pulmonary findings appear improved. Electronically Signed: Lee Dennison MD at 15:39 EDT ,
--- NOTE | 2022-12-10 15:12 | ED.RN ---
pt states no longer pees straight cath attempted with no results. updated
[2022-12-10 16:05] LABS: ALB/GLOB Ratio 0.4 RATIO (0.9-2.4); AST(SGOT) 14 U/L (15-37); Alanine Aminotransfer ALT/SGPT 7 U/L (13-56); Albumin, Serum 2.3 g/dL (3.2-5.0); Alkaline Phosphatase 89 U/L (45-117); Anion Gap 7 (5-15); BUN 45 mg/dL (7-18); BUN/Creat Ratio 5.3 RATIO (10-20); Calcium,Total 13.6 mg/dL (8.5-10.1); Chloride 99 mmol/L (98-107); Creatinine, Serum 8.52 mg/dL (0.55-1.02); EST Glomerular Filtration Rate 5 mL/min (>60); Est Glom Filt Rate - Afr Amer 6 mL/min (>60); Estimated Creatinine Clearance 5.88 ml/min; Globulin 5.3 g/dL (2.2-4.2); Glucose 81 mg/dL (74-106); Potassium 4.5 mmol/L (3.5-5.1); Protein, Total 7.6 g/dL (6.4-8.2); Sodium Level 135 mmol/L (136-145)
--- NOTE | 2022-12-10 16:07 | ED.RN ---
LAB CALLED CRITICAL OF CREAT 8.52 AND CALCIUM OF 13.6
[2022-12-10 16:40] LABS: Allen Test Positive; Base Excess 7 mmol/L (-2 to +2); Bicarbonate 31.1 mmol/L (22-26); Blood Gas Specimen Type ART; O2 Delivery Device Cannula; PO2 79 mmHG (75-100); SITE L Radial; SO2 96 % (95-99); Total Carbon Dioxide 32 mmol/L; pCO2 43.5 mmHg (35-45); pH 7.46 (7.35-7.45)
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
[2022-12-10 17:19] LABS: Magnesium 3.5 mg/dL (1.6-2.6); Phosphorus 2.5 mg/dL (2.5-4.9)
[2022-12-10] MEDS: 0.9% Normal Saline 1,000 ML 100 ML IV (17:51)
[2022-12-10] MEDS: Budesonide Respules 0.5 MG/2 ML AMPUL.NEB. INHALATION (18:55)
[2022-12-10] MEDS: Ipratropium/Albuterol Sulfate 3 ML AMPUL.NEB INHALATION (18:55)
--- NOTE | 2022-12-10 19:00 | CPS ---
Patient feeling ill, unable to perform PEP & I.S. at this time
--- NOTE | 2022-12-10 19:35 | NURSING ---
0: Called and spoke with Karen, nurse at [facility] to review patient's medication list.
--- NOTE | 2022-12-10 19:36 | NURSING ---
1929: Called and spoke with Karen, [facility] to clarify if patient is still taking Eliquis. Per Karen, patient has not been on Eliquis since her GI bleed in October. Dr. Quezada notified of same.
--- NOTE | 2022-12-10 20:30 | EKG12_ITS ---
Test Reason : CP Blood Pressure : / mmHG Vent. Rate : 062 BPM Atrial Rate : 062 BPM P-R Int : 180 ms QRS Dur : 090 ms QT Int : 438 ms P-R-T Axes : 078 -17 -03 degrees QTc Int : 444 ms Normal sinus rhythm Minimal voltage criteria for LVH, may be normal variant ( [place] product ) Nonspecific ST and T wave abnormality Abnormal ECG When compared with ECG of 10-DEC-2022 14:25, MANUAL COMPARISON REQUIRED, DATA IS UNCONFIRMED Confirmed by TERE LEMON, JAN ([id number]), online content editor BIRDIE TORRES ([id number]) on 12/13/2022 12:30:08 PM Referred By: NITIN Confirmed By:JAN CARRANZA MD
[2022-12-10] MEDS: Carvedilol 12.5 MG Tablet PO (20:31)
[2022-12-10] MEDS: hydrALAZINE 50 MG Tablet PO (20:31)
[2022-12-10] MEDS: Pantoprazole Sodium 40 MG Tablet PO (20:31)
[2022-12-10 21:51] LABS: Troponin-I HS 53 pg/mL (3.0-54.0)
[2022-12-11] VITALS (11 sets, daily range): BP systolic 146–177; BP diastolic 59–87; PULSE 55–71; RESP 15–20; TEMP 36.3–37.2; O2SAT 93–100; BMI 19.2
[2022-12-11 00:03] LABS: Troponin-I HS 53 pg/mL (3.0-54.0)
[2022-12-11 03:26] LABS: Absolute Lymphocyte Count 1.26 X10^3/uL (0.83-4.51); Absolute Neutrophil Count 7.4 X10^3/uL (2.0-7.7); Basophil# 0.06 X10^3/uL; Basophil% 0.6 % (0-1); Eosinophil# 0.26 X10^3/uL; Eosinophils% 2.6 % (0-5); Hematocrit 32.1 % (37-47); Hemoglobin 9.5 g/dL (12.0-15.0); Lymphocyte # 1.26 X10^3/ul (0.83-4.51); Lymphocyte % 12.7 % (19-41); Mean Corp Hgb Conc 29.6 g/dL (32-36); Mean Corpuscular Hgb 26.8 pg (27.0-32.0); Mean Corpuscular Volume 90.7 fL (81-99); Monocyte# 0.88 X10^3/uL; Monocyte% 8.9 % (0-10); NRBC Flagged by Analyzer 0 % (0-5); Neutrophil # 7.39 X10^3/uL (2.7-7.7); Neutrophil % 74.6 % (47-70); Platelet Count 215 K/mm3 (150-450); RBC Distribution Width SD 57.1 fl (35.1-43.9); Red Blood Count 3.54 M/mm3 (4.2-5.4); White Blood Count 9.9 K/mm3 (4.4-11.0)
[2022-12-11 04:19] LABS: Troponin-I HS 57 pg/mL (3.0-54.0)
[2022-12-11] MEDS: Acetaminophen 325 MG Tablet 650 MG PO ×2 (05:12→17:00)
[2022-12-11] MEDS: hydrALAZINE 50 MG Tablet PO ×2 (05:13→22:41)
[2022-12-11 05:18] LABS: ALB/GLOB Ratio 0.5 RATIO (0.9-2.4); AST(SGOT) 18 U/L (15-37); Alanine Aminotransfer ALT/SGPT 7 U/L (13-56); Albumin, Serum 2.4 g/dL (3.2-5.0); Alkaline Phosphatase 83 U/L (45-117); Anion Gap 8 (5-15); BUN 47 mg/dL (7-18); BUN/Creat Ratio 5.3 RATIO (10-20); Chloride 100 mmol/L (98-107); Creatinine, Serum 8.84 mg/dL (0.55-1.02); EST Glomerular Filtration Rate 5 mL/min (>60); Est Glom Filt Rate - Afr Amer 6 mL/min (>60); Estimated Creatinine Clearance 5.52 ml/min; Globulin 4.9 g/dL (2.2-4.2); Glucose 62 mg/dL (74-106); Potassium 4.5 mmol/L (3.5-5.1); Protein, Total 7.3 g/dL (6.4-8.2); Sodium Level 136 mmol/L (136-145)
[2022-12-11] MEDS: Budesonide Respules 0.5 MG/2 ML AMPUL.NEB. INHALATION ×2 (06:47→19:20)
[2022-12-11] MEDS: Ipratropium/Albuterol Sulfate 3 ML AMPUL.NEB INHALATION ×3 (06:47→19:20)
[2022-12-11 09:07] LABS: Bedside Glucose 56 mg/dL (74-106)
--- NOTE | 2022-12-11 09:23 | PN.HOSP_ITS ---
Reason for Visit Reason for Visit: Diagnoses Hypercalcemia (12/10/22) Dehydration (12/10/22) Transient alteration of awareness (12/10/22) Personal history of other diseases of the circulatory system (12/10/22) Subjective Subjective Still listless. Objective Data Objective Data Vital Signs: Vital Signs Temp Pulse Resp BP Pulse Ox O2 Del Method O2 Flow Rate 36.9 C 71 16 163/64 H 93 Nasal Cannula 2 12/11/22 05:17 12/11/22 05:17 12/11/22 05:17 12/11/22 05:17 12/11/22 05:17 12/11/22 05:17 12/11/22 05:17 Oxygen Flow Rate (L/min) 2 Oxygen Delivery Method Nasal Cannula Weight: 59.1 kg Body Mass Index (BMI) 19.2 Intake & Output: Intake and Output for Last 24 Hours 12/09/22 12/10/22 12/11/22 23:59 23:59 23:59 Intake Total 1500 / 1500 60 / 60 Output Total 0 / 0 0 / 0 Balance 1500 / 1500 60 / 60 Lab / Micro Data Result Diagrams: 12/11/22 03:15 12/11/22 03:15 Labs: Laboratory Results - last 24 hr 12/10/22 14:22: WBC 10.4, RBC 4.17 L, Hgb 11.3 L, Hct 37.0, MCV 88.7, MCH 27.1, MCHC 30.5 L, RDW Std Deviation 54.9 H, RDW Coeff of Destiny 18.0 H, Plt Count 246, MPV 8.5, Immature Gran % (Auto) 0.700, Neut % (Auto) 78.6 H, Lymph % (Auto) 10.8 L, Stokes % (Auto) 7.5, Eos % (Auto) 1.7, Baso % (Auto) 0.7, Absolute Neuts (auto) 8.2 H, Absolute Lymphs (auto) 1.12, Nucleated RBC % 0.2 12/10/22 14:22: Sodium Cancelled, Potassium Cancelled, Chloride Cancelled, Carbon Dioxide Cancelled, Anion Gap Cancelled, BUN Cancelled, Creatinine Cancelled, Estim Creat Clear Calc Cancelled, Est GFR (MDRD) Af Amer Cancelled, E st GFR (MDRD) Non-Af Cancelled, BUN/Creatinine Ratio Cancelled, Glucose Cancelled, Calcium Cancelled, Total Bilirubin Cancelled, AST Cancelled, ALT Cancelled, Alkaline Phosphatase Cancelled, Total Protein Cancelled, Albumin Cancelled, Globulin Cancelled, Albumin/Globulin Ratio Cancelled 12/10/22 15:35: Sodium 135 L, Potassium 4.5, Chloride 99, Carbon Dioxide 29.0, Anion Gap 7, BUN 45 H, Creatinine 8.52 H*, Estim Creat Clear Calc 5.88, Est GFR (MDRD) Af Amer 6 L, Est GFR (MDRD) Non-Af 5 L, BUN/Creatinine Ratio 5.3 L, Glucose 81, Calcium 13.6 H*, Total Bilirubin 0.70, AST 14 L, ALT 7 L, Alkaline Phosphatase 89, Total Protein 7.6, Albumin 2.3 L, Globulin 5.3 H, Albumin/Globulin Ratio 0.4 L 12/10/22 15:35: Phosphorus 2.5, Magnesium 3.5 H 12/10/22 21:25: Troponin I High Sens 53 12/10/22 23:05: Troponin I High Sens 53 12/11/22 03:15: WBC 9.9, RBC 3.54 L, Hgb 9.5 L, Hct 32.1 L, MCV 90.7, MCH 26.8 L , MCHC 29.6 L, RDW Std Deviation 57.1 H, RDW Coeff of Destiny 18.0 H, Plt Count 215, MPV 8.0, Immature Gran % (Auto) 0.600, Neut % (Auto) 74.6 H, Lymph % (Auto) 12.7 L, Stokes % (Auto) 8.9, Eos % (Auto) 2.6, Baso % (Auto) 0.6, Absolute Neuts (auto) 7.4, Absolute Lymphs (auto) 1.26, Nucleated RBC % 0 12/11/22 03:15: Sodium 136, Potassium 4.5, Chloride 100, Carbon Dioxide 28.0, Anion Gap 8, BUN 47 H, Creatinine 8.84 H*, Estim Creat Clear Calc 5.52, Est GFR (MDRD) Af Amer 6 L, Est GFR (MDRD) Non-Af 5 L, BUN/Creatinine Ratio 5.3 L, Glucose 62 L, Calcium 13.0 H*, Total Bilirubin 0.80, AST 18, ALT 7 L, Alkaline Phosphatase 83, Total Protein 7.3, Albumin 2.4 L, Globulin 4.9 H, Albumin/Globulin Ratio 0.5 L 12/11/22 03:15: Troponin I High Sens 57 H 12/11/22 08:49: POC Glucose 56 L ABG Data ABG results: ABG 12/10/22 16:35 Specimen Type ART Sample Site L Radial pH 7.46 H Bicarbonate Actual 31.1 H Total CO2 32 Base Excess 7 H O2 Saturation 96 ABG pCO2 43.5 ABG pO2 79 Evens Test Positive O2 Delivery Device Cannula Liter Flow 3.0 Radiography Diagnostic Testing: Radiology Impression Brain CT 12/10/22 14:17 IMPRESSION: There are no acute findings. Chronic involutional changes of the brain. Electronically Signed: Lee Dennison MD at 15:38 EDT , Chest X-Ray 12/10/22 14:50 IMPRESSION: Pulmonary findings appear improved. Electronically Signed: Lee Dennison MD at 15:39 EDT , Rhythm Strip Rhythm Strip: Sinus bradycardia Rate: 54 Ectopy: None Physical Exam Const no apparent distress Constitutional Narrative: confused. HEENT head/scalp atraumatic and moist oral mucous membranes Resp normal respiratory effort, no retractions and no use of accessory muscles Cardio regular rate, regular rhythm, S1 normal heart sound and S2 normal heart sound GI normal to inspection, nondistended, normoactive bowel sounds, soft to palpation and non-tender Neuro oriented x3 Psych affect normal Assessment & Plan Assessment/Plan (1) Hypercalcemia: PLAN: Calcium 13.8, has progressively been increasing over the past month May be iatrogenic, she was taking calcium acetate 667, 3 tabs 3 times a day with meals for phosphate binding. Currently being held. Nephrology following. (2) Altered level of consciousness: PLAN: 2/2 hypercalcemia avoid potentiating medications (3) End stage renal disease on dialysis: PLAN: Stage renal disease on hemodialysis Sunday, Sunday, Sunday Nephro consult Daily weights, I's and O's Last HD on Sunday (4) Hypoglycemia: PLAN: transient. Not on DM meds. May be due to poor oral intake. Gluocose 62 on BMP today. Recheck was 56. Received soda and a snack monitor. 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 Also had congestive gastritis and erythematous duodenopathy and 3 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. Will need outpatient capsule endoscopy #DVT ppx: SCDs Charges/Coding Visit Charges Inpatient E&M: 36560 Subs Hosp L2
[2022-12-11 10:15] LABS: Bedside Glucose 57 mg/dL (74-106)
--- NOTE | 2022-12-11 10:17 | CASEMGMT ---
Addendum entered by Fabian Pedersen 12/11/22 11:30: Tessa presented to bedside, introduced self to patient. Sw asked patient if the plan is for her to return to [facility] when she is medically ready for discharge. Patient confirmed that is the plan. Sw to continue to touch base throughout admission and will assist with discharge planning needs. BARBARA Shin, MITRA Original Note: Tessa Zarate completed chart review, acknowledges that patient has copy of advanced directives in chart. \ BARBARA Shin, MITRA
[2022-12-11 11:28] LABS: Bedside Glucose 85 mg/dL (74-106)
--- NOTE | 2022-12-11 12:17 | CHAPLAIN ---
Type of Pastoral Visit _x__ Initial Visit ___ Follow-up Visit ___ On-call Visit ___ General Patient Visit ___ Spiritual Assessment ___ Family Conference ___ Bereavement ___ Rapid Response ___ Code Blue ___ Other (describe below) Pastoral Care Referral From _x__ Patient ___ Family ___ Nurse ___ Physician ___ Thermal Cutter Hand ___ Sanitary Engineer ___ Other (describe below) Sacrament/Intervention ___ Active listening ___ Anointing ___ Adventism ___ Bereavement ___ Communion ___ Flaca exploration ___ ___ Life review _x__ Prayer ___ Reconciliation ___ Sacrament of Sick _x__ Supportive presence ___ Wedding ___ Other (describe below) Pastoral Comments patient is receiving her dialysis treatment and could only nod her head; pt given prayer and presence
--- NOTE | 2022-12-11 14:12 | CASEMGMT ---
Discharge Planning Per [facility], patient is a bedhold and will not require a pre-cert to return. Adele Roman
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
--- NOTE | 2022-12-11 14:34 | DIALYSIS ---
Hemodialysis x 3.6 hours. UF 1700. , cvc flushed with normal saline and filled to volume with heparin. Patient at baseline from treatment initiation.
[2022-12-11] MEDS: amLODIPine 5 MG Tablet PO (17:00)
[2022-12-11] MEDS: Pantoprazole Sodium 40 MG Tablet PO (22:41)
[2022-12-11] MEDS: Carvedilol 12.5 MG Tablet PO (22:41)
[2022-12-11 23:55] LABS: Bedside Glucose 66 mg/dL (74-106)
[2022-12-12] VITALS (7 sets, daily range): BP systolic 145–163; BP diastolic 61–86; PULSE 60–70; RESP 14–18; TEMP 36.6–36.9; O2SAT 96–99; BMI 19.3
[2022-12-12 00:43] LABS: Bedside Glucose 119 mg/dL (74-106)
[2022-12-12] MEDS: Acetaminophen 325 MG Tablet 650 MG PO (01:57)
[2022-12-12 05:26] LABS: Absolute Lymphocyte Count 1.32 X10^3/uL (0.83-4.51); Absolute Neutrophil Count 7.3 X10^3/uL (2.0-7.7); Basophil# 0.04 X10^3/uL; Basophil% 0.4 % (0-1); Eosinophil# 0.23 X10^3/uL; Eosinophils% 2.3 % (0-5); Hematocrit 29.4 % (37-47); Hemoglobin 8.7 g/dL (12.0-15.0); Lymphocyte # 1.32 X10^3/ul (0.83-4.51); Lymphocyte % 13.2 % (19-41); Mean Corp Hgb Conc 29.6 g/dL (32-36); Mean Corpuscular Hgb 26.4 pg (27.0-32.0); Mean Corpuscular Volume 89.4 fL (81-99); Mean Platelet Vol. 8.9 fl (6.2-12.0); Monocyte# 1.08 X10^3/uL; Monocyte% 10.8 % (0-10); NRBC Flagged by Analyzer 0.2 % (0-5); Neutrophil # 7.28 X10^3/uL (2.7-7.7); Neutrophil % 72.7 % (47-70); Platelet Count 221 K/mm3 (150-450); RBC Distribution Width CV 17.8 % (11.6-14.6); RBC Distribution Width SD 55.9 fl (35.1-43.9); Red Blood Count 3.29 M/mm3 (4.2-5.4)
[2022-12-12 05:54] LABS: Anion Gap 7 (5-15); BUN 22 mg/dL (7-18); BUN/Creat Ratio 4.3 RATIO (10-20); Calcium,Total 9.3 mg/dL (8.5-10.1); Chloride 100 mmol/L (98-107); Creatinine, Serum 5.15 mg/dL (0.55-1.02); EST Glomerular Filtration Rate 9 mL/min (>60); Est Glom Filt Rate - Afr Amer 11 mL/min (>60); Estimated Creatinine Clearance 9.52 ml/min; Glucose 51 mg/dL (74-106); Potassium 3.9 mmol/L (3.5-5.1); Sodium Level 133 mmol/L (136-145)
[2022-12-12 05:56] LABS: Phosphorus 1.3 mg/dL (2.5-4.9)
[2022-12-12] MEDS: hydrALAZINE 50 MG Tablet PO ×2 (06:31→13:25)
[2022-12-12] MEDS: Budesonide Respules 0.5 MG/2 ML AMPUL.NEB. INHALATION (06:54)
[2022-12-12] MEDS: Ipratropium/Albuterol Sulfate 3 ML AMPUL.NEB INHALATION ×2 (06:54→12:06)
[2022-12-12 07:18] LABS: Bedside Glucose 69 mg/dL (74-106)
[2022-12-12 07:18] LABS: Bedside Glucose 88 mg/dL (74-106)
--- NOTE | 2022-12-12 07:53 | PN.HOSP_ITS ---
Reason for Visit Reason for Visit: Diagnoses Hypoglycemia, unspecified (12/10/22) Hypercalcemia (12/10/22) Dehydration (12/10/22) End stage renal disease (12/10/22) Transient alteration of awareness (12/10/22) Personal history of other diseases of the circulatory system (12/10/22) Dependence on renal dialysis (12/10/22) Subjective Subjective Feels well. Denies complaints. Objective Data Objective Data Vital Signs: Vital Signs Temp Pulse Resp BP Pulse Ox O2 Del Method O2 Flow Rate 36.9 C 68 18 163/66 H 96 Nasal Cannula 2 12/12/22 04:18 12/12/22 06:54 12/12/22 06:54 12/12/22 06:31 12/12/22 06:54 12/12/22 06:54 12/12/22 06:54 Oxygen Flow Rate (L/min) 2 Oxygen Delivery Method Nasal Cannula Weight: 59.3 kg Body Mass Index (BMI) 19.3 Intake & Output: Intake and Output for Last 24 Hours 12/10/22 12/11/22 12/12/22 23:59 23:59 23:59 Intake Total 1500 / 1500 660 / 660 Output Total 0 / 0 0 / 0 0 / 0 Balance 1500 / 1500 660 / 660 0 / 0 Medical Nutrition Assessment Dietitian: Malnutrition Criteria Met Start: 12/11/22 12:05 Freq: Status: Active Protocol: Document 12/11/22 12:05 RMA (Rec: 12/11/22 12:05 RMA [id number]) Nutrition Malnutrition Evidence of Malnutrition Exists Yes Malnutrition (severe): Chronic Evidenced By Suboptimal Energy Intake ( Severe),Weight Loss (Severe) Clinical Problem Chronic Disease or Condition Related Malnutrition Etiology Severe protein-calorie malnutrition in the context of chronic disease related to inadequate oral intake Signs/Symptoms as evidenced by BMI 19.2, PO meeting less than 50% x 1 month and weight loss~13% x 1 month Status Active Problem Recommendation Dietitian Recommendations/Changes Will liberalize diet to sodium -restricted/1500mL FR due to dialysis. Will add 120mL PO strawberry Nepro TID w/ meals. Additional ONS as needed once PO adequacy established with meals. Lab / Micro Data Result Diagrams: 12/12/22 04:14 12/12/22 04:14 Labs: Laboratory Results - last 24 hr 12/11/22 08:49: POC Glucose 56 L 12/11/22 09:51: POC Glucose 57 L 12/11/22 11:08: POC Glucose 85 12/11/22 22:36: POC Glucose 66 L 12/12/22 00:22: POC Glucose 119 H 12/12/22 04:14: WBC 10.0, RBC 3.29 L, Hgb 8.7 L, Hct 29.4 L, MCV 89.4, MCH 26.4 L, MCHC 29.6 L, RDW Std Deviation 55.9 H, RDW Coeff of Destiny 17.8 H, Plt Count 221, MPV 8.9, Immature Gran % (Auto) 0.600, Neut % (Auto) 72.7 H, Lymph % (Auto) 13.2 L, [place] % (Auto) 10.8 H, Eos % (Auto) 2.3, Baso % (Auto) 0.4, Absolute Neuts (auto) 7.3, Absolute Lymphs (auto) 1.32, Nucleated RBC % 0.2 12/12/22 04:14: Sodium 133 L, Potassium 3.9, Chloride 100, Carbon Dioxide 26.0, Anion Gap 7, BUN 22 H, Creatinine 5.15 H, Estim Creat Clear Calc 9.52, Est GFR (MDRD) Af Amer 11 L, Est GFR (MDRD) Non-Af 9 L, BUN/Creatinine Ratio 4.3 L, Glucose 51 L, Calcium 9.3 12/12/22 04:14: Phosphorus 1.3 L 12/12/22 06:34: POC Glucose 69 L 12/12/22 07:00: POC Glucose 88 Rhythm Strip Rhythm Strip: Sinus bradycardia Rate: 54 Ectopy: None Physical Exam Const alert and no apparent distress Constitutional Narrative: more alert and interactive today. HEENT head/scalp atraumatic and moist oral mucous membranes Resp normal respiratory effort and no retractions Cardio regular rate, regular rhythm, S1 normal heart sound and S2 normal heart sound GI normal to inspection, nondistended, normoactive bowel sounds, soft to palpation, non-tender and non-distended Assessment & Plan Assessment/Plan (1) Hypercalcemia: PLAN: Admission Calcium 13.8, has progressively been increasing over the past month May be iatrogenic, she was taking calcium acetate 667, 3 tabs 3 times a day with meals for phosphate binding. Currently being held. Nephrology following. Improved, now 9.3 (2) Altered level of consciousness: PLAN: resolved 2/2 hypercalcemia avoid potentiating medications (3) End stage renal disease on dialysis: PLAN: Stage renal disease on hemodialysis Sunday, Sunday, Sunday Nephro consult Daily weights, I's and O's Last HD on Sunday (4) Hypoglycemia: PLAN: transient. Not on DM meds. May be due to poor oral intake. Gluocose 62 on BMP today. Recheck was 56. Received soda and a snack monitor. 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 Also had congestive gastritis and erythematous duodenopathy and 3 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. Will need outpatient capsule endoscopy #DVT ppx: SCDs DC to SNF
[2022-12-12] MEDS: DULoxetine Hcl 60 MG Capsule PO (09:21)
[2022-12-12] MEDS: Carvedilol 12.5 MG Tablet PO (09:22)
[2022-12-12] MEDS: Polyethylene Glycol 3350 17 GM PACKET PO (09:22)
[2022-12-12] MEDS: Vitamin B Comp W-C Capsule 1 CAP PO (09:22)
[2022-12-12] MEDS: Pantoprazole Sodium 40 MG Tablet PO (09:22)
[2022-12-12] MEDS: amLODIPine 5 MG Tablet PO (09:24)
--- NOTE | 2022-12-12 10:05 | PCM.PN.REN ---
Subjective Subjective Resting quietly. No complaints. No overnight events. Reports feeling better. More alert and oriented this morning. Objective Data Objective Data Vital Signs: Vital Signs Temp Pulse Resp BP Pulse Ox O2 Del Method O2 Flow Rate 98.4 F 68 18 163/66 H 96 Nasal Cannula 2 12/12/22 04:18 12/12/22 06:54 12/12/22 06:54 12/12/22 06:31 12/12/22 06:54 12/12/22 09:32 12/12/22 09:32 Oxygen Flow Rate (L/min) 2 Oxygen Delivery Method Nasal Cannula Weight: 59.3 kg Body Mass Index (BMI) 19.3 Intake & Output: Intake and Output for Last 24 Hours 12/10/22 12/11/22 12/12/22 23:59 23:59 23:59 Intake Total 1500 / 1500 660 / 660 Output Total 0 / 0 0 / 0 0 / 0 Balance 1500 / 1500 660 / 660 0 / 0 Medical Nutrition Assessment Dietitian: Malnutrition Criteria Met Start: 12/11/22 12:05 Freq: Status: Active Protocol: Document 12/11/22 12:05 RMA (Rec: 12/11/22 12:05 RMA [id number]) Nutrition Malnutrition Evidence of Malnutrition Exists Yes Malnutrition (severe): Chronic Evidenced By Suboptimal Energy Intake ( Severe),Weight Loss (Severe) Clinical Problem Chronic Disease or Condition Related Malnutrition Etiology Severe protein-calorie malnutrition in the context of chronic disease related to inadequate oral intake Signs/Symptoms as evidenced by BMI 19.2, PO meeting less than 50% x 1 month and weight loss~13% x 1 month Status Active Problem Recommendation Dietitian Recommendations/Changes Will liberalize diet to sodium -restricted/1500mL FR due to dialysis. Will add 120mL PO strawberry Nepro TID w/ meals. Additional ONS as needed once PO adequacy established with meals. Lab / Micro Data Result Diagrams: 12/12/22 04:14 12/12/22 04:14 Labs: Laboratory Results - last 24 hr 12/11/22 09:51: POC Glucose 57 L 12/11/22 11:08: POC Glucose 85 12/11/22 22:36: POC Glucose 66 L 12/12/22 00:22: POC Glucose 119 H 12/12/22 04:14: WBC 10.0, RBC 3.29 L, Hgb 8.7 L, Hct 29.4 L, MCV 89.4, MCH 26.4 L, MCHC 29.6 L, RDW Std Deviation 55.9 H, RDW Coeff of Destiny 17.8 H, Plt Count 221, MPV 8.9, Immature Gran % (Auto) 0.600, Neut % (Auto) 72.7 H, Lymph % (Auto) 13.2 L, [place] % (Auto) 10.8 H, Eos % (Auto) 2.3, Baso % (Auto) 0.4, Absolute Neuts (auto) 7.3, Absolute Lymphs (auto) 1.32, Nucleated RBC % 0.2 12/12/22 04:14: Sodium 133 L, Potassium 3.9, Chloride 100, Carbon Dioxide 26.0, Anion Gap 7, BUN 22 H, Creatinine 5.15 H, Estim Creat Clear Calc 9.52, Est GFR (MDRD) Af Amer 11 L, Est GFR (MDRD) Non-Af 9 L, BUN/Creatinine Ratio 4.3 L, Glucose 51 L, Calcium 9.3 12/12/22 04:14: Phosphorus 1.3 L 12/12/22 06:34: POC Glucose 69 L 12/12/22 07:00: POC Glucose 88 Rhythm Strip Rhythm Strip: Sinus bradycardia Rate: 54 Ectopy: None Physical Exam Narrative Alert and oriented x3 S1, S2, rhythm irregular, rate controlled Lung sounds clear but diminished breath sounds posterior bases. No wheezing noted Abdomen soft, nontender No edema to bilateral lower legs or feet Tunneled HD catheter dressing clean, dry and intact Assessment & Plan Assessment/Plan (1) Altered level of consciousness: (2) End stage renal disease on dialysis: (3) Hypercalcemia: (4) Hypoglycemia: (5) History of atrial fibrillation: PLAN: Plan This is a 72-year-old female with past medical history significant for A-fib, COPD, recent GI bleed now off Eliquis, ESRD on chronic hemodialysis via tunneled HD catheter who was admitted to the hospital for further evaluation and treatment of altered mental status, calcium 13.0. - Patient dialyzed yesterday on 2K/2 calcium bath and tolerated almost 2 L fluid removal. She currently dialyzes at [facility] on a Sunday, Sunday, Sunday, Sunday schedule. While patient is in the hospital we will maintain Sunday hemodialysis unless emergent/acute need for dialysis arises. Outpatient EDW 64.5 kg. Pre-HD weight today 62 kg. Likely will lower dry weight by time of discharge. Patient possibly has had body mass weight loss. No acute indication for [employer] today. Next dialysis tomorrow. - hypercalcemia; November 07 her total calcium was 9.5. Continue off calcium based medications including PhosLo. Calcium today 9.3. Phosphorus is 1.3. We will give K-Phos. Continue off binders. - history of anemia of chronic disease and receives ANGELI and iron. We will monitor hemoglobin trends. - - history of chronic hypoxic respiratory failure secondary to COPD and wears O2 at all times. At baseline. -Discussed with Dr. Mo. Possible discharge back to [facility] today.
[2022-12-12] MEDS: 0.9% Saline Lock 10 ML Syringe IV (11:00)
--- NOTE | 2022-12-12 11:02 | CASEMGMT ---
SW sent an updated progress note to [facility] via [facility] [facility] and let them know patient will be returning today. Evy GONZALEZ
--- NOTE | 2022-12-12 11:18 | TREXTCAR_ITS ---
Diet Diet Order/Speech Therapy: 12/12/22 07:46 Diet: Renal - General Food consistency:: Soft & Bite Sized Liquid Consistency:: Regular/Thin Dietary Modifications:: Sodium Restricted Type of Dietary Supplement:: Nepro Is pt able to select menu?: Yes Fluid restriction:: 1500 mL Diet Comments: 120mL [place] Nepro TID w/ meals Routine Orders/Code Status Code Status: Full Code Therapies Weight Bearing: Full weight bearing Physical Therapy: Eval and Treat Occupational Therapy: Eval and Treat Problem/Diagnosis (1) Hypercalcemia: Status: Acute Code(s): E83.52 - Hypercalcemia Plan: Admission Calcium 13.8, has progressively been increasing over the past month May be iatrogenic, she was taking calcium acetate 667, 3 tabs 3 times a day with meals for phosphate binding. Currently being held. Nephrology following. Improved, now 9.3 (2) Altered level of consciousness: Status: Acute Code(s): R40.4 - Transient alteration of awareness Plan: resolved 2/2 hypercalcemia avoid potentiating medications (3) End stage renal disease on dialysis: Status: Acute Code(s): N18.6 - End stage renal disease; Z99.2 - Dependence on renal dialysis Plan: Stage renal disease on hemodialysis Sunday, Sunday, Sunday Nephro consult Daily weights, I's and O's Last HD on Sunday (4) Hypoglycemia: Status: Acute Code(s): E16.2 - Hypoglycemia, unspecified Plan: transient. Not on DM meds. May be due to poor oral intake. Gluocose 62 on BMP today. Recheck was 56. Received soda and a snack monitor. if persists, may consider D5 IVF Plan Chronic conditions: * Atrial fibrillation-Kelly had previously been on hold due to severe GI bleed but had start date of 11/17/2022-On carvedilol * Recent UTI-Patient supposed be on Keflex through tomorrow, will give dose tomorrow and DC unless other clinical suspicion for infection arises * chronic hypoxic respiratory failure secondary to COPD-On 3L with O2 sats mid 90's in ED-ABG not hypoxic or hypercapneic-Continue inhalers * History of hemorrhage of 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 and stomach-Had GI bleed 11/13/2022 with a hemoglobin of 5.4 and required ICU admission- Received 4 units of packed red blood cells, EGD 11/10 with 3 bleeding angiodysplastic lesions in the stomach which were injected and treated with heater probe. Also had congestive gastritis and erythematous duodenopathy and 3 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. Will need outpatient capsule endoscopy #DVT ppx: SCDs DC to SNF Allergies/Procedures Done in Hospital Allergies No Known Allergies Allergy (Verified 12/07/22 08:59) Type of Care/Length of Stay Estimated LOS: Convalescent Care Less Than 30 days Type of Care Needed: Skilled Rehab Potential: Fair Prognosis: Fair Additional Orders/Day of Discharge Day of Discharge: 12/12/22 Dietary and Speech Recommendations Dietitian Recommendations/Changes: Will liberalize diet to sodium- restricted/1500mL FR due to dialysis. Will add 120mL PO strawberry Nepro TID w/ meals. Additional ONS as needed once PO adequacy established with meals. Discharge Plan Admission Admit Date/Time: 12/10/22 16:46 Primary Reason for Your Visit: hypercalcemia Attending Provider: Stiven Mo Primary Care Provider: Yen Valdez RAW PRODUCTS DIRECTOR Consulting Providers: Brittani Byrne ; Nataliia Quezada Instructions Additional Instructions / Restrictions: Dialysis every Sunday, Sunday, Sunday. Discharge Orders/Prescriptions Prescriptions: New carvedilol 12.5 mg Tablet 12.5 mg PO BID Qty: 0 0RF Continued dicyclomine 20 mg tablet 20 mg PO TID montelukast [Singulair] 10 mg Tablet 10 mg PO QHS midodrine 10 mg tablet 10 mg PO MOWEFR Spiriva Respimat 2.5 mcg/actuation Mist 2 puff INHALATION DAILY duloxetine 60 mg capsule,delayed release(DR/EC) 60 mg PO DAILY polyethylene glycol 3350 [Miralax] 17 gram/dose powder 17 g PO DAILY pantoprazole 40 mg tablet,delayed release (DR/EC) 40 mg PO BID Lizabeth-Eliza 0.8 mg Tablet 1 tab PO DAILY hydralazine 100 MG tablet 50 mg PO TID 30 Days Qty: 0 0RF Rx Instructions: Hold for SBP less than 130 mmHg albuterol sulfate 90 mcg/actuation HFA aerosol inhaler 2 puff inhalation Q6H PRN (Reason: SOB) 30 Days Qty: 0 0RF mirtazapine 30 mg Tablet 30 mg PO QHS acetaminophen [Tylenol] 325 mg tablet 650 mg PO Q4H PRN PRN (Reason: Pain/fever) albuterol sulfate 2.5 mg /3 mL (0.083 %) solution for nebulization 2.5 mg inhalation Q2H PRN (Reason: SOB/Wheezing) amlodipine 5 mg tablet 5 mg PO DAILY ferrous sulfate [FeroSul] 325 mg (65 mg iron) tablet 325 mg PO QODAY sennosides-docusate sodium [Stool Softener-Stimulant Laxat] 8.6-50 mg tablet 2 tab PO BID PRN (Reason: CONSTIPATION ) fluticasone furoate-vilanterol [Breo Ellipta] 200-25 mcg/dose blister with device 1 ea INHALATION DAILY Label Comments: Inhale 1 puff as directed once a day acetaminophen 650 mg Suppository 650 mg IN Q4H PRN (Reason: pain/fever) bisacodyl 10 mg Suppository 10 mg IN DAILY PRN (Reason: Constipation) aluminum-magnesium hydroxide 225-200 mg/5 mL Suspension 30 ml PO Q4H PRN (Reason: GI distress) Discontinued cephalexin 500 mg capsule 500 mg PO BID Rx Instructions: for 7 days for UTI calcium acetate(phosphat bind) 667 mg Capsule 2,001 mg PO TIDCM carvedilol 25 mg tablet 25 mg PO BID calcitriol 0.25 mcg capsule 0.25 mcg PO MOWEFR oxycodone 10 mg tablet 10 mg PO Q4H PRN PRN (Reason: break through pain) Referrals / Follow Up: Yen Valdez RAW PRODUCTS DIRECTOR, RAW PRODUCTS DIRECTOR-C [Primary Care Provider] - Within 2 Weeks Disposition Disposition (needs filled in before D/C Order can be placed): Group Home Facility
--- NOTE | 2022-12-12 11:23 | DS.PCM_ITS ---
Providers Date of Admission: 12/10/22 Primary Care Physician: Yen Valdez, BAYLEEC Consultations 12/10/22 17:17 Consult: Nephrology Routine Consulting Provider: Brittani Byrne Reason for Consult: esrd on HD, hypercalcemia EMERGENT Consult: No MD Notified: Yes Date Notified: 12/10/22 Time Notified: 16:53 Method of Notification: Verbal Reason For Visit: DECREASED LOC 2/2 HYPERCALCEMIA Diagnosis Discharge Diagnosis (1) Hypercalcemia: Status: Acute Code(s): E83.52 - Hypercalcemia Plan: Admission Calcium 13.8, has progressively been increasing over the past month May be iatrogenic, she was taking calcium acetate 667, 3 tabs 3 times a day with meals for phosphate binding. Currently being held. Nephrology following. Improved, now 9.3 (2) Altered level of consciousness: Status: Acute Code(s): R40.4 - Transient alteration of awareness Plan: resolved 2/2 hypercalcemia avoid potentiating medications (3) End stage renal disease on dialysis: Status: Acute Code(s): N18.6 - End stage renal disease; Z99.2 - Dependence on renal dialysis Plan: Stage renal disease on hemodialysis Sunday, Sunday, Sunday Nephro consult Daily weights, I's and O's Last HD on Sunday (4) Hypoglycemia: Status: Acute Code(s): E16.2 - Hypoglycemia, unspecified Plan: transient. Not on DM meds. May be due to poor oral intake. Gluocose 62 on BMP today. Recheck was 56. Received soda and a snack monitor. if persists, may consider D5 IVF Plan Chronic conditions: * Atrial fibrillation-Eliquis had previously been on hold due to severe GI bleed but had start date of 11/17/2022-On carvedilol * Recent UTI-Patient supposed be on Keflex through tomorrow, will give dose tomorrow and DC unless other clinical suspicion for infection arises * chronic hypoxic respiratory failure secondary to COPD-On 3L with O2 sats mid 90's in ED-ABG not hypoxic or hypercapneic-Continue inhalers * History of hemorrhage of 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 and stomach-Had GI bleed 11/13/2022 with a hemoglobin of 5.4 and required ICU admission- Received 4 units of packed red blood cells, EGD 11/10 with 3 bleeding angiodysplastic lesions in the stomach which were injected and treated with heater probe. Also had congestive gastritis and erythematous duodenopathy and 3 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. Will need outpatient capsule endoscopy #DVT ppx: SCDs DC to SNF Medications at Discharge Home Medications dicyclomine 20 mg tablet 20 mg PO TID IRRITABLE BOWELS 02/26/21 montelukast 10 mg tablet (Singulair) 10 mg PO QHS ALLERGIES 10/25/21 midodrine 10 mg tablet 10 mg PO MOWEFR BLOOD PRESSURE 02/23/22 duloxetine 60 mg capsule,delayed release 60 mg PO DAILY DEPRESSION 05/19/22 polyethylene glycol 3350 17 gram/dose oral powder (Miralax) 17 g PO DAILY CONSTIPATION 05/19/22 tiotropium bromide 2.5 mcg/actuation mist for inhalation (Spiriva Respimat) 2 puff inhalation DAILY SHORTNESS OF BREATH 05/19/22 pantoprazole 40 mg tablet,delayed release 40 mg PO BID ACID REFLUX 10/20/22 vitamin B complex-vitamin C-folic acid 0.8 mg tablet (Lizabeth-Eliza) 1 tab PO DAILY SUPPLEMENT 10/30/22 albuterol sulfate 90 mcg/actuation aerosol inhaler 2 puff inhalation Q6H PRN SOB 30 days #0 grams 11/01/22 hydralazine 100 mg tablet 50 mg PO TID BLOOD PRESSURE 30 days #0 tabs 11/01/22 acetaminophen 325 mg tablet (Tylenol) 650 mg PO Q4H PRN PRN Pain/fever 11/09/22 albuterol sulfate 2.5 mg/3 mL (0.083 %) solution for nebulization 2.5 mg inhalation Q2H PRN SOB/Wheezing 11/09/22 amlodipine 5 mg tablet 5 mg PO DAILY BLOOD PRESSURE 11/09/22 ferrous sulfate 325 mg (65 mg iron) tablet (FeroSul) 325 mg PO QODAY SUPPLEMENT 11/09/22 mirtazapine 30 mg tablet 30 mg PO QHS DEPRESSION 11/09/22 sennosides 8.6 mg-docusate sodium 50 mg tablet (Stool Softener-Stimulant Laxative) 2 tab PO BID PRN CONSTIPATION 11/09/22 acetaminophen 650 mg rectal suppository 650 mg GA Q4H PRN pain/fever 12/10/22 aluminum-magnesium hydroxide 225 mg-200 mg/5 mL oral suspension 30 ml PO Q4H PRN GI distress 12/10/22 bisacodyl 10 mg rectal suppository 10 mg GA DAILY PRN Constipation 12/10/22 fluticasone furoate 200 mcg-vilanterol 25 mcg/dose inhalation powder (Breo Ellipta) 1 ea inhalation DAILY COPD 12/10/22 carvedilol 12.5 mg tablet 12.5 mg PO BID #0 tabs 12/12/22 Hospital Course Operations None Procedures Dialysis Summary of Care Provided Minutes Spent on Discharge: 32 Hospital Course: Patient presents with confusion and hypercalcemia. Calcium was 13.8. Patient received medications to help drop that but also did receive hemodialysis. Patient's calcium today is 9.3. Is likely due to overuse of potassium acetate. Will be held moving forward. Patient's mental status also improved as well. Patient be discharged back to custodial facility in stable condition. Medical Records Data Medical Nutrition Assessment Dietitian: Malnutrition Criteria Met Start: 12/11/22 12:05 Freq: Status: Active Protocol: Document 12/11/22 12:05 RMA (Rec: 12/11/22 12:05 RMA [id number]) Nutrition Malnutrition Evidence of Malnutrition Exists Yes Malnutrition (severe): Chronic Evidenced By Suboptimal Energy Intake ( Severe),Weight Loss (Severe) Clinical Problem Chronic Disease or Condition Related Malnutrition Etiology Severe protein-calorie malnutrition in the context of chronic disease related to inadequate oral intake Signs/Symptoms as evidenced by BMI 19.2, PO meeting less than 50% x 1 month and weight loss~13% x 1 month Status Active Problem Recommendation Dietitian Recommendations/Changes Will liberalize diet to sodium -restricted/1500mL FR due to dialysis. Will add 120mL PO strawberry Nepro TID w/ meals. Additional ONS as needed once PO adequacy established with meals. Weight / BMI Weight Weight: 59.3 kg Body Mass Index (BMI) 19.3 ABG / Lab / Microbiology Data Result Diagrams: 12/12/22 04:14 12/12/22 04:14 Laboratory: Laboratory Results - last 24 hr 12/11/22 11:08: POC Glucose 85 12/11/22 22:36: POC Glucose 66 L 12/12/22 00:22: POC Glucose 119 H 12/12/22 04:14: WBC 10.0, RBC 3.29 L, Hgb 8.7 L, Hct 29.4 L, MCV 89.4, MCH 26.4 L, MCHC 29.6 L, RDW Std Deviation 55.9 H, RDW Coeff of Destiny 17.8 H, Plt Count 221, MPV 8.9, Immature Gran % (Auto) 0.600, Neut % (Auto) 72.7 H, Lymph % (Auto) 13.2 L, [place] % (Auto) 10.8 H, Eos % (Auto) 2.3, Baso % (Auto) 0.4, Absolute Neuts (auto) 7.3, Absolute Lymphs (auto) 1.32, Nucleated RBC % 0.2 12/12/22 04:14: Sodium 133 L, Potassium 3.9, Chloride 100, Carbon Dioxide 26.0, Anion Gap 7, BUN 22 H, Creatinine 5.15 H, Estim Creat Clear Calc 9.52, Est GFR (MDRD) Af Amer 11 L, Est GFR (MDRD) Non-Af 9 L, BUN/Creatinine Ratio 4.3 L, Glucose 51 L, Calcium 9.3 12/12/22 04:14: Phosphorus 1.3 L 12/12/22 06:34: POC Glucose 69 L 12/12/22 07:00: POC Glucose 88 Meaningful Use Info Meaningful Use Diagnoses (Choose all that apply): None applicable Discharge Plan Admission Admit Date/Time: 12/10/22 16:46 Primary Reason for Your Visit: hypercalcemia Attending Provider: Stiven Mo Primary Care Provider: Yen Valdez SUSTAINABILITY COMMUNICATOR Consulting Providers: Brittani Byrne ; Nataliia Quezada Instructions Additional Instructions / Restrictions: Dialysis every Sunday, Sunday, Sunday. Discharge Orders/Prescriptions Prescriptions: New carvedilol 12.5 mg Tablet 12.5 mg PO BID Qty: 0 0RF Continued dicyclomine 20 mg tablet 20 mg PO TID montelukast [Singulair] 10 mg Tablet 10 mg PO QHS midodrine 10 mg tablet 10 mg PO MOWEFR Spiriva Respimat 2.5 mcg/actuation Mist 2 puff INHALATION DAILY duloxetine 60 mg capsule,delayed release(DR/EC) 60 mg PO DAILY polyethylene glycol 3350 [Miralax] 17 gram/dose powder 17 g PO DAILY pantoprazole 40 mg tablet,delayed release (DR/EC) 40 mg PO BID Lizabeth-Eliza 0.8 mg Tablet 1 tab PO DAILY hydralazine 100 MG tablet 50 mg PO TID 30 Days Qty: 0 0RF Rx Instructions: Hold for SBP less than 130 mmHg albuterol sulfate 90 mcg/actuation HFA aerosol inhaler 2 puff inhalation Q6H PRN (Reason: SOB) 30 Days Qty: 0 0RF mirtazapine 30 mg Tablet 30 mg PO QHS acetaminophen [Tylenol] 325 mg tablet 650 mg PO Q4H PRN PRN (Reason: Pain/fever) albuterol sulfate 2.5 mg /3 mL (0.083 %) solution for nebulization 2.5 mg inhalation Q2H PRN (Reason: SOB/Wheezing) amlodipine 5 mg tablet 5 mg PO DAILY ferrous sulfate [FeroSul] 325 mg (65 mg iron) tablet 325 mg PO QODAY sennosides-docusate sodium [Stool Softener-Stimulant Laxat] 8.6-50 mg tablet 2 tab PO BID PRN (Reason: CONSTIPATION ) fluticasone furoate-vilanterol [Breo Ellipta] 200-25 mcg/dose blister with device 1 ea INHALATION DAILY Label Comments: Inhale 1 puff as directed once a day acetaminophen 650 mg Suppository 650 mg GA Q4H PRN (Reason: pain/fever) bisacodyl 10 mg Suppository 10 mg GA DAILY PRN (Reason: Constipation) aluminum-magnesium hydroxide 225-200 mg/5 mL Suspension 30 ml PO Q4H PRN (Reason: GI distress) Discontinued cephalexin 500 mg capsule 500 mg PO BID Rx Instructions: for 7 days for UTI calcium acetate(phosphat bind) 667 mg Capsule 2,001 mg PO TIDCM carvedilol 25 mg tablet 25 mg PO BID calcitriol 0.25 mcg capsule 0.25 mcg PO MOWEFR oxycodone 10 mg tablet 10 mg PO Q4H PRN PRN (Reason: break through pain) Referrals / Follow Up: Yen Valdez SUSTAINABILITY COMMUNICATOR, SUSTAINABILITY COMMUNICATOR-C [Primary Care Provider] - Within 2 Weeks Disposition Disposition (needs filled in before D/C Order can be placed): Shelter Fa [facility]ility Charges/Coding Visit Charges Inpatient E&M: 14731 Disch Hosp >30min
--- NOTE | 2022-12-12 11:38 | CASEMGMT ---
SW [facility] [employer] [facility]. 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
--- NOTE | 2022-12-12 11:39 | PHA.DC.MR ---
Pharmacy Service has performed discharge medication reconciliation for this patient. The patient's discharge medication list was reviewed for discrepancies and discrepancies were resolved. Home Medications dicyclomine 20 mg tablet 20 mg PO TID IRRITABLE BOWELS 02/26/21 montelukast 10 mg tablet (Singulair) 10 mg PO QHS ALLERGIES 10/25/21 midodrine 10 mg tablet 10 mg PO MOWEFR BLOOD PRESSURE 02/23/22 duloxetine 60 mg capsule,delayed release 60 mg PO DAILY DEPRESSION 05/19/22 polyethylene glycol 3350 17 gram/dose oral powder (Miralax) 17 g PO DAILY CONSTIPATION 05/19/22 tiotropium bromide 2.5 mcg/actuation mist for inhalation (Spiriva Respimat) 2 puff inhalation DAILY SHORTNESS OF BREATH 05/19/22 pantoprazole 40 mg tablet,delayed release 40 mg PO BID ACID REFLUX 10/20/22 vitamin B complex-vitamin C-folic acid 0.8 mg tablet (Lizabeth-Eliza) 1 tab PO DAILY SUPPLEMENT 10/30/22 albuterol sulfate 90 mcg/actuation aerosol inhaler 2 puff inhalation Q6H PRN SOB 30 days #0 grams 11/01/22 hydralazine 100 mg tablet 50 mg PO TID BLOOD PRESSURE 30 days #0 tabs 11/01/22 acetaminophen 325 mg tablet (Tylenol) 650 mg PO Q4H PRN PRN Pain/fever 11/09/22 albuterol sulfate 2.5 mg/3 mL (0.083 %) solution for nebulization 2.5 mg inhalation Q2H PRN SOB/Wheezing 11/09/22 amlodipine 5 mg tablet 5 mg PO DAILY BLOOD PRESSURE 11/09/22 ferrous sulfate 325 mg (65 mg iron) tablet (FeroSul) 325 mg PO QODAY SUPPLEMENT 11/09/22 mirtazapine 30 mg tablet 30 mg PO QHS DEPRESSION 11/09/22 sennosides 8.6 mg-docusate sodium 50 mg tablet (Stool Softener-Stimulant Laxative) 2 tab PO BID PRN CONSTIPATION 11/09/22 acetaminophen 650 mg rectal suppository 650 mg UT Q4H PRN pain/fever 12/10/22 aluminum-magnesium hydroxide 225 mg-200 mg/5 mL oral suspension 30 ml PO Q4H PRN GI distress 12/10/22 bisacodyl 10 mg rectal suppository 10 mg UT DAILY PRN Constipation 12/10/22 fluticasone furoate 200 mcg-vilanterol 25 mcg/dose inhalation powder (Breo Ellipta) 1 ea inhalation DAILY COPD 12/10/22 carvedilol 12.5 mg tablet 12.5 mg PO BID #0 tabs 12/12/22
--- NOTE | 2022-12-12 11:53 | CASEMGMT ---
SW called [facility] to set up transport for patient as is required by patient's insurance. Await return call regarding flower picker time and company. MARIA GUADALUPE did request [facility], wheelchair be provided, and O2 to be provided. Evy GONZALEZ
--- NOTE | 2022-12-12 11:56 | NURSING ---
report called to Jefferson PAREDES at [facility]
[2022-12-12] MEDS: Na Biphos/Potassium Phosphate PACKET 1 PACKET PO (13:22)
--- NOTE | 2022-12-12 13:26 | CASEMGMT ---
MARIA GUADALUPE called [facility] and spoke with Sancho. Sancho said as long as MARIA GUADALUPE has a trip number from [facility] he can set up transport. MARIA GUADALUPE arranged for patient to get picked up at 230 by wheelchair van. MARIA GUADALUPE notified [facility], escrow secretary, and RN. Plan: d/c back to [facility] under intermediate level of care. [facility] transported patient. [facility] trip number is [id number]. Evy GONZALEZ
== END 2022-12-12 14:40 | disposition skilled nursing facility (03) | DRG 640 ==
LOC: ED 16:19 → PCU 17:01
PROVIDERS: Hospitalist; Nurse Practitioner Adult Health; Admitting Provider Internal Medicine; Emergency Provider Emergency Medicine; PCP Nurse Practitioner Adult Health
DX: E83.52 Hypercalcemia (principal); N18.6 End stage renal disease; E43 Unspecified severe protein-calorie malnutrition; I13.2 Hypertensive heart and chronic kidney disease with heart failure and with stage 5 chronic kidney disease, or end stage renal disease; J96.11 Chronic respiratory failure with hypoxia; I50.22 Chronic systolic (congestive) heart failure; Z68.1 Body mass index [BMI] 19.9 or less, adult; E16.0 Drug-induced hypoglycemia without coma; Z99.81 Dependence on supplemental oxygen; I48.0 Paroxysmal atrial fibrillation; J43.9 Emphysema, unspecified; Z99.2 Dependence on renal dialysis; E78.00 Pure hypercholesterolemia, unspecified; I25.10 Atherosclerotic heart disease of native coronary artery without angina pectoris; I25.2 Old myocardial infarction; E86.0 Dehydration; E83.39 Other disorders of phosphorus metabolism; Z79.01 Long term (current) use of anticoagulants; Z79.51 Long term (current) use of inhaled steroids; Z79.899 Other long term (current) drug therapy; Z86.73 Personal history of transient ischemic attack (TIA), and cerebral infarction without residual deficits; Z87.19 Personal history of other diseases of the digestive system; Z87.891 Personal history of nicotine dependence
CPT/HCPCS: 36415; 36600; 70450; 71045; 80048; 80053; 82803; 82962; 83735; 84100; 84484; 85025; 90937; 93005; 94640; 97802; 99252; 99285; J7030; J7040; J7050; P9612; A4216; G0257; G0463

== ENCOUNTER → 2022-12-13 | Outpatient (REF) | payer MEDICARE, MEDICAID, SELFPAY ==
[2022-12-13 09:42] LABS: Hematocrit 28.1 % (37-47); Hemoglobin 8.6 g/dL (12.0-15.0); Mean Corp Hgb Conc 30.6 g/dL (32-36); Mean Corpuscular Volume 88.1 fL (81-99); Mean Platelet Vol. 9.1 fl (6.2-12.0); Platelet Count 201 K/mm3 (150-450); RBC Distribution Width CV 18.2 % (11.6-14.6); RBC Distribution Width SD 56.9 fl (35.1-43.9); Red Blood Count 3.19 M/mm3 (4.2-5.4); White Blood Count 11.6 K/mm3 (4.4-11.0)
[2022-12-13 09:54] LABS: Anion Gap 8 (5-15); BUN 30 mg/dL (7-18); BUN/Creat Ratio 4.4 RATIO (10-20); Calcium,Total 9.3 mg/dL (8.5-10.1); Chloride 99 mmol/L (98-107); Creatinine, Serum 6.78 mg/dL (0.55-1.02); EST Glomerular Filtration Rate 6 mL/min (>60); Est Glom Filt Rate - Afr Amer 8 mL/min (>60); Glucose 87 mg/dL (74-106); Potassium 4.2 mmol/L (3.5-5.1); Sodium Level 132 mmol/L (136-145)
== END ==
LOC: OLS.SW 05:00
PROVIDERS: PCP Nurse Practitioner Adult Health; Visit Provider Family Medicine
DX: I13.2 Hypertensive heart and chronic kidney disease with heart failure and with stage 5 chronic kidney disease, or end stage renal disease (principal); I50.9 Heart failure, unspecified; J96.10 Chronic respiratory failure, unspecified whether with hypoxia or hypercapnia
CPT/HCPCS: 36415; 80048; 85027

== ENCOUNTER → 2022-12-20 05:00 | Outpatient (REF) | payer MEDICARE, MEDICAID, SELFPAY ==
[2022-12-20 09:33] LABS: Anion Gap 8 (5-15); BUN 50 mg/dL (7-18); BUN/Creat Ratio 8.4 RATIO (10-20); Calcium,Total 9.4 mg/dL (8.5-10.1); Chloride 97 mmol/L (98-107); Creatinine, Serum 5.92 mg/dL (0.55-1.02); EST Glomerular Filtration Rate 8 mL/min (>60); Est Glom Filt Rate - Afr Amer 9 mL/min (>60); Glucose 85 mg/dL (74-106); Potassium 4.3 mmol/L (3.5-5.1); Sodium Level 136 mmol/L (136-145)
== END ==
LOC: OLS.SW 05:00
PROVIDERS: PCP Nurse Practitioner Adult Health; Visit Provider Family Medicine
DX: N18.6 End stage renal disease (principal); J44.9 Chronic obstructive pulmonary disease, unspecified; Z79.899 Other long term (current) drug therapy
CPT/HCPCS: 36415; 80048

== ENCOUNTER 2023-01-22 11:50 | Inpatient (IN) | payer MEDICARE, MEDICAID, SELFPAY ==
[2023-01-22] VITALS (7 sets, daily range): BP systolic 106–123; BP diastolic 60–78; PULSE 61–68; RESP 14–25; TEMP 35.8–36.7; O2SAT 96–100; BMI 21.6; BMI 19.8
--- NOTE | 2023-01-22 12:27 | EKG12_ITS ---
Test Reason : SOB Blood Pressure : / mmHG Vent. Rate : 062 BPM Atrial Rate : 062 BPM P-R Int : 186 ms QRS Dur : 078 ms QT Int : 452 ms P-R-T Axes : -24 003 086 degrees QTc Int : 458 ms Normal sinus rhythm Nonspecific ST abnormality Abnormal ECG Confirmed by TERE LEMON, JAN ([id number]), editorial manager BIRDIE TORRES ([id number]) on 01/24/2023 9:25:19 AM Referred By: XIN Confirmed By:JAN CARRANZA MD
[2023-01-22 12:47] LABS: Absolute Lymphocyte Count 0.79 X10^3/uL (0.83-4.51); Absolute Neutrophil Count 11.1 X10^3/uL (2.0-7.7); Basophil# 0.05 X10^3/uL; Basophil% 0.4 % (0-1); Eosinophil# 0.12 X10^3/uL; Eosinophils% 0.9 % (0-5); Hemoglobin 7.8 g/dL (12.0-15.0); Lymphocyte # 0.79 X10^3/ul (0.83-4.51); Lymphocyte % 5.9 % (19-41); Mean Corp Hgb Conc 28.9 g/dL (32-36); Mean Corpuscular Hgb 25.8 pg (27.0-32.0); Mean Corpuscular Volume 89.4 fL (81-99); Monocyte# 1.17 X10^3/uL; Monocyte% 8.8 % (0-10); NRBC Flagged by Analyzer 0 % (0-5); Neutrophil # 11.06 X10^3/uL (2.7-7.7); Neutrophil % 83.3 % (47-70); Platelet Count 208 K/mm3 (150-450); RBC Distribution Width CV 19.4 % (11.6-14.6); RBC Distribution Width SD 62.8 fl (35.1-43.9); Red Blood Count 3.02 M/mm3 (4.2-5.4); White Blood Count 13.3 K/mm3 (4.4-11.0)
--- NOTE | 2023-01-22 12:50 | RAD_ITS ---
INDICATION: weakness EXAMINATION/TECHNIQUE: X-RAY - XR Chest 1 View COMPARISON: 12/10/2022. FINDINGS: LINES/DEVICES: Right-sided permacath in stable position in the atriocaval junction region. LUNGS: New left perihilar infiltrate. Persistent left retrocardiac infiltrate obscuring the left hemidiaphragm. Small bilateral pleural effusions. MEDIASTINUM AND CARDIOVASCULAR STRUCTURES: Borderline cardiac silhouette. BONES AND SOFT TISSUES: Stable soft tissues and osseous structures. RAD/Chest 1 View (Portable) IMPRESSION: 1. New left perihilar infiltrate could be due to pneumonia. 2. Persistent left retrocardiac infiltrate/atelectasis. 3. Small bilateral pleural effusions. Electronically Signed: Williams Benitez MD at 13:14 EDT ,
[2023-01-22 13:06] LABS: Phosphorus 7.9 mg/dL (2.5-4.9)
[2023-01-22 13:07] LABS: ALB/GLOB Ratio 0.4 RATIO (0.9-2.4); AST(SGOT) 23 U/L (15-37); Alanine Aminotransfer ALT/SGPT 14 U/L (13-56); Albumin, Serum 2.2 g/dL (3.2-5.0); Alkaline Phosphatase 98 U/L (45-117); Anion Gap 9 (5-15); BUN 64 mg/dL (7-18); BUN/Creat Ratio 6.3 RATIO (10-20); Chloride 96 mmol/L (98-107); EST Glomerular Filtration Rate 4 mL/min (>60); Est Glom Filt Rate - Afr Amer 5 mL/min (>60); Estimated Creatinine Clearance 5.42 ml/min; Glucose 103 mg/dL (74-106); Potassium 5.4 mmol/L (3.5-5.1); Protein, Total 7.2 g/dL (6.4-8.2); Sodium Level 130 mmol/L (136-145)
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
[2023-01-22] MEDS: fentaNYL 100 MCG/2 ML Ampul 25 MCG IV (15:06)
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
[2023-01-22 16:12] LABS: Lactic Acid 1.1 mmol/L (0.4-1.9)
[2023-01-22] MEDS: oxyCODONE 5 MG Tablet PO (16:30)
[2023-01-22] MEDS: Vancomycin IV 1,000 MG/200 ML BAG 200 MG IV (16:30)
[2023-01-22] MEDS: Acetaminophen 325 MG Tablet 650 MG PO (16:30)
[2023-01-22] MEDS: Ondansetron 4 MG/2 ML Vial IV (16:32)
[2023-01-22] MEDS: Midodrine HCl 5 MG Tablet 10 MG PO (17:12)
[2023-01-22 18:49] LABS: M R Staph aureus DNA By PCR Negative (Negative); Probe Check PASS; Specimen Processing Control PASS
[2023-01-22 20:21] LABS: Mucous, Urine 0 SEEN /hpf (<or=2+)
[2023-01-22 20:23] LABS: Color, Urine Brown (Yellow); Glucose, Dipstick Normal (Normal); Ketone-Dipstick 5 mg/dl (Negative); Leukocyte Esterase-Dipstick 500 /ul (Negative); Nitrite-Dipstick Positive (Negative); Occult Blood-Urine 250 /ul (Negative); Protein-Dipstick 100 mg/dl (Negative); Urine Clarity Cloudy (Clear); Urine Urobilinogen Normal (Normal); Urine pH 6.5 (5.0 - 8.0)
[2023-01-22 20:24] LABS: Urine Bilirubin Dipstick 1 mg/dL (Negative)
[2023-01-22 20:30] LABS: Bacteria 1+ /hpf (None Seen); Red Blood Cells-Urine 0-5 SEEN /hpf (0-5); Squamous Epithelial Cells - UA 10-25 SEEN /hpf (5-10); White Blood Cells 50-100 SEEN /hpf (0-5)
--- NOTE | 2023-01-22 20:47 | PCM.RX.CS ---
Consult Antibiotic Management Pharmacy has been consulted to manage selected antiobiotic: Vancomycin Type of Intervention Type of Consult: New start Suspected Infection Suspected Infection: Pneumonia Prior Doses of Antibiotics Prior Doses of Antibiotics Received/Current Regimen: Received initial dose of 1000mg 01.22.23 @1630. Labs Labs: Sodium 130 mmol/L (136-145) L 01/22/23 12:30 Potassium 5.4 mmol/L (3.5-5.1) H 01/22/23 12:30 Chloride 96 mmol/L (98-107) L 01/22/23 12:30 Carbon Dioxide 25.0 mmol/L (21.0-32.0) 01/22/23 12:30 Anion Gap 9 (5-15) 01/22/23 12:30 BUN 64 mg/dL (7-18) H 01/22/23 12:30 Creatinine 10.10 mg/dL (0.55-1.02) H* 01/22/23 12:30 Est GFR (MDRD) Af Amer 5 mL/min (>60) L 01/22/23 12:30 Est GFR (MDRD) Non-Af 4 mL/min (>60) L 01/22/23 12:30 BUN/Creatinine Ratio 6.3 RATIO (10-20) L 01/22/23 12:30 Glucose 103 mg/dL (74-106) 01/22/23 12:30 Dosing Weight Weight used for dosin.7 kg Estimated Creatinine Clearance Estimated Creatinine Clearance: 5 ml/min Goal Trough Goal Trough: 15-20 mcg/mL Pharmacy Plan for Drug Dosing Pharmacy Plan for Drug Dosing: Random level ordered for AM 01.23.23. Tentative HD schedule MWF. Did not receive dialysis today. Pharmacy Service will continue to monitor and adjust dosing as required.
[2023-01-22] MEDS: Budesonide Respules 0.5 MG/2 ML AMPUL.NEB. INHALATION (20:49)
[2023-01-22] MEDS: Albuterol 2.5 MG/3 ML VIAL.NEB. INHALATION (20:49)
--- NOTE | 2023-01-22 20:51 | NURSING ---
venipuncture attempted for lab work. Unsuccessful x 1. section plotter operator notified.
[2023-01-22] MEDS: Pantoprazole Sodium 40 MG Tablet PO (21:07)
[2023-01-22] MEDS: Montelukast 10 MG Tablet PO (21:07)
[2023-01-22] MEDS: Mirtazapine 30 MG Tablet PO (21:07)
[2023-01-22] MEDS: Dicyclomine 10 MG Capsule 20 MG PO (21:07)
[2023-01-22] MEDS: Carvedilol 12.5 MG Tablet PO (21:08)
[2023-01-23] VITALS (19 sets, daily range): BP systolic 94–220; BP diastolic 39–89; PULSE 59–87; RESP 14–20; TEMP 36.1–36.9; O2SAT 94–100; BMI 21.2; BMI 20.8
[2023-01-23] MEDS: Acetaminophen 325 MG Tablet 650 MG PO ×3 (00:08→15:51)
[2023-01-23] MEDS: oxyCODONE 5 MG Tablet PO ×3 (00:10→15:50)
[2023-01-23] MEDS: Dicyclomine 10 MG Capsule 20 MG PO ×3 (05:18→21:14)
[2023-01-23 06:23] LABS: Absolute Lymphocyte Count 0.77 X10^3/uL (0.83-4.51); Absolute Neutrophil Count 6.8 X10^3/uL (2.0-7.7); Basophil# 0.03 X10^3/uL; Basophil% 0.3 % (0-1); Eosinophils% 2.3 % (0-5); Hematocrit 24.3 % (37-47); Hemoglobin 7.2 g/dL (12.0-15.0); Lymphocyte # 0.77 X10^3/ul (0.83-4.51); Lymphocyte % 8.9 % (19-41); Mean Corp Hgb Conc 29.6 g/dL (32-36); Mean Corpuscular Hgb 25.9 pg (27.0-32.0); Mean Corpuscular Volume 87.4 fL (81-99); Monocyte# 0.77 X10^3/uL; Monocyte% 8.9 % (0-10); NRBC Flagged by Analyzer 0.3 % (0-5); Neutrophil # 6.82 X10^3/uL (2.7-7.7); Platelet Count 200 K/mm3 (150-450); RBC Distribution Width CV 18.7 % (11.6-14.6); Red Blood Count 2.78 M/mm3 (4.2-5.4); White Blood Count 8.6 K/mm3 (4.4-11.0)
[2023-01-23 06:54] LABS: Vancomycin, Random Level 15.9 ug/mL (0.0-15.0)
[2023-01-23 07:05] LABS: Magnesium 2.3 mg/dL (1.6-2.6); Phosphorus 8.7 mg/dL (2.5-4.9); Troponin-I HS 24 pg/mL (3.0-54.0)
[2023-01-23] MEDS: Budesonide Respules 0.5 MG/2 ML AMPUL.NEB. INHALATION ×2 (07:06→20:09)
[2023-01-23 07:39] LABS: ALB/GLOB Ratio 0.4 RATIO (0.9-2.4); AST(SGOT) 15 U/L (15-37); Alanine Aminotransfer ALT/SGPT 11 U/L (13-56); Albumin, Serum 2.2 g/dL (3.2-5.0); Alkaline Phosphatase 94 U/L (45-117); Anion Gap 10 (5-15); BUN 75 mg/dL (7-18); BUN/Creat Ratio 7.1 RATIO (10-20); Calcium,Total 9.1 mg/dL (8.5-10.1); Chloride 94 mmol/L (98-107); EST Glomerular Filtration Rate 4 mL/min (>60); Est Glom Filt Rate - Afr Amer 5 mL/min (>60); Estimated Creatinine Clearance 5.15 ml/min; Globulin 4.9 g/dL (2.2-4.2); Glucose 80 mg/dL (74-106); Protein, Total 7.1 g/dL (6.4-8.2); Sodium Level 129 mmol/L (136-145); Thyroid Stim Hormone (TSH) 4.57 uIU/mL (0.358-3.74)
[2023-01-23] MEDS: 0.9% Normal Saline 1,000 ML IV.SOLN. 1000 ML OPERA.SITE (08:09)
[2023-01-23] MEDS: PureFlow B 2K Dialysis Soln 1 BAG 6 BAG PF (08:09)
[2023-01-23] MEDS: 0.9% Saline Lock 10 ML Syringe IV ×3 (08:10→10:45)
[2023-01-23 08:17] LABS: Procalcitonin 0.46 ng/mL (0.00-0.09)
--- NOTE | 2023-01-23 10:00 | CASEMGMT ---
Addendum entered and electronically signed by Niesha Shankar RN 01/23/23 16:21: Call placed to [facility] who states pt is not in their system and has not received their services. Call placed to [facility] who states pt is active with their palliative care services. Confidential communication sent to [facility] palliative care to further define the status of pt's transfer of services. Will follow for response. Yovanny Shankar RN CM Addendum entered and electronically signed by Niesha Shankar RN 01/23/23 13:49: Confirmed chair time for HD at [facility]: MWF at 1200. Yovanny Shankar RN CM Original Note: REGGIE FAN Discharge Planning Assessment: Face to Face with pt for initial transition planning/care coordination assessment. REGGIE FAN introduced self and role at [facility], pt alert, voices understanding and consents to assessment. Pt is A/O x4 and answers all questions appropriately at this time. Care providers, pharmacy, and demographics verified/updated. Admitting Dx: Pneumonia, CHF PCP: Etelvina Valdez NP Specialists: Nephrology, [facility] for HD Insurance: [employer] [facility], [facility] Prescription Benefit: yes LNOK: son Jose, daughter Nelida Living Arrangements: Pt lives with her son in a two story home with a first floor set-up. Pt is dependent on her son for all self care and household tasks. Transportation: Pt uses [employer] for w/c transport to HD DME: walker, w/c, home O2 at 4-5l/min. Pt has multiple DME from [facility] which have not yet been removed from the home. SNF: Has been to [facility] and [facility] in the past Hospice: [facility] Pt Goal: Return home with son with palliative care and waiver services. Plan: TBD Pt's son called into the room while this REGGIE FAN speaking with pt. Pt gave this REGGIE FAN the phone to discuss dc needs with pt's son Larry. [facility] states pt revoked hospice and hospice has been assisting them with transitioning pt to waiver services and palliative care. They have not removed the equipment or medications during this transition. Pt's son states they plan for pt to return home under their care as nursing homes don't work out well for her. Will contact [facility] to determine where they are in the process of the transition and will continue to evaluate pt's needs to create the discharge plan. Yovanny Shankar RN CM
[2023-01-23] MEDS: DULoxetine Hcl 60 MG Capsule PO (10:19)
[2023-01-23] MEDS: amLODIPine 5 MG Tablet PO (10:19)
[2023-01-23] MEDS: Pantoprazole Sodium 40 MG Tablet PO ×2 (10:20→21:14)
[2023-01-23] MEDS: Polyethylene Glycol 3350 17 GM PACKET PO (10:20)
[2023-01-23] MEDS: Carvedilol 12.5 MG Tablet PO ×2 (10:20→21:14)
[2023-01-23] MEDS: Folic Acid/Vitamin B Comp W-C 1 Capsule 1 CAP PO (10:20)
--- NOTE | 2023-01-23 14:35 | PCM.RX.CS ---
Consult Antibiotic Management Pharmacy has been consulted to manage selected antiobiotic: Vancomycin Type of Intervention Type of Consult: Follow-up Suspected Infection Suspected Infection: Pneumonia Labs Labs: Sodium 129 mmol/L (136-145) L 01/23/23 06:04 Potassium 5.0 mmol/L (3.5-5.1) 01/23/23 06:04 Chloride 94 mmol/L (98-107) L 01/23/23 06:04 Carbon Dioxide 25.0 mmol/L (21.0-32.0) 01/23/23 06:04 Anion Gap 10 (5-15) 01/23/23 06:04 BUN 75 mg/dL (7-18) H 01/23/23 06:04 Creatinine 10.50 mg/dL (0.55-1.02) H* 01/23/23 06:04 Est GFR (MDRD) Af Amer 5 mL/min (>60) L 01/23/23 06:04 Est GFR (MDRD) Non-Af 4 mL/min (>60) L 01/23/23 06:04 BUN/Creatinine Ratio 7.1 RATIO (10-20) L 01/23/23 06:04 Glucose 80 mg/dL (74-106) 01/23/23 06:04 Random Vancomycin 15.9 ug/mL (0.0-15.0) H 01/23/23 06:04 Microbiology Microbiology: Microbiology 01/22/23 21:51 Mucosa - Nose Respiratory Panel (PCR) - Final 01/22/23 20:15 Urine Catheter - Catheter Legionella Antigen - Final 01/22/23 20:15 Urine Catheter - Catheter Streptococcus pneumoniae Antigen (M - Final Pharmacy Plan for Drug Dosing Pharmacy Plan for Drug Dosing: VANCOMYCIN LEVEL RECEIVED Current Vancomycin Dose: 1000MG X1 Number of Doses Received: 1 Vancomycin Level: 15.9 MG/DL Hours Since Last Dose: 13.5 HOURS Renal Function: 10.5 MG/DL (HD) Renal Function Trend: HD PATIENT Lab/Micro: BLOOD CX PENDING Vancomycin Plan/Comments: RANDOM PRE-HD LEVEL DRAWN THIS MORNING WAS THERAPEUTIC AT 15.9 MG/DL. WILL GIVE 500MG WEIGHT BASED DOSE TODAY AND GET A RANDOM LEVEL IN THE MORNING IN CASE OF HD (SPOKE TO NURSE, UNSURE IF WILL RESUME NORMAL HD SCHEDULE). Pending Level: 01/24/23 @ 0600 - RANDOM Pharmacy Service will continue to monitor and adjust dosing as required.
[2023-01-23] MEDS: Vancomycin IV 500 MG/100 ML BAG 100 MG IV (14:46)
--- NOTE | 2023-01-23 15:20 | PN_ITS ---
Subjective Subjective Patient seen and examined. She was undergoing dialysis. She says she felt much better today and she felt her breathing had improved. She denied any chest pain, palpitations, dizziness, nausea vomiting or any other symptoms. Review of systems was otherwise negative. She has remained hemodynamically stable. Objective Data Objective Data Vital Signs: Vital Signs Temp Pulse Resp BP Pulse Ox O2 Del Method O2 Flow Rate 97.1 F L 82 14 150/89 H 100 Nasal Cannula 3 01/23/23 10:58 01/23/23 10:58 01/23/23 10:58 01/23/23 10:58 01/23/23 10:58 01/23/23 10:58 01/23/23 13:42 Oxygen Flow Rate (L/min) 3 Oxygen Delivery Method Nasal Cannula Weight: 141 lb 1.533 oz Body Mass Index (BMI) 20.8 Intake & Output: Intake and Output for Last 24 Hours 01/21/23 01/22/23 01/23/23 23:59 23:59 23:59 Intake Total 750 / 750 300 / 300 Output Total 70 / 70 1400 / 1400 Balance 680 / 680 -1100 / -1100 Lab / Micro Data 01/23/23 06:04 01/23/23 06:04 Labs: Laboratory Results - last 24 hr 01/22/23 14:45: Lactic Acid 1.1 01/22/23 17:45: MRSA (PCR) Negative 01/22/23 20:15: Urine Color Brown, Urine Clarity Cloudy, Urine pH 6.5, Ur Specific [place] 1.010, Urine Protein 100 H, Urine Glucose (UA) Normal, Urine Ketones 5 H, Urine Occult Blood 250 H, Urine Nitrite Positive H, Urine Bilirubin 1 H, Urine Urobilinogen Normal, Ur Leukocyte Esterase 500 H, Urine RBC 0-5 SEEN, Urine WBC 50-100 SEEN, Ur Squamous Epith Cells 10-25 SEEN, Urine Bacteria 1+, Ur ine Mucus 0 SEEN 01/23/23 06:04: WBC 8.6, RBC 2.78 L, Hgb 7.2 L, Hct 24.3 L, MCV 87.4, MCH 25.9 L , MCHC 29.6 L, RDW Std Deviation 60.0 H, RDW Coeff of Destiny 18.7 H, Plt Count 200, MPV 9.0, Immature Gran % (Auto) 0.600, Neut % (Auto) 79.0 H, Lymph % (Auto) 8.9 L, [place] % (Auto) 8.9, Eos % (Auto) 2.3, Baso % (Auto) 0.3, Absolute Neuts (auto) 6.8, Absolute Lymphs (auto) 0.77 L, Nucleated RBC % 0.3, Sodium 129 L, Potassium 5.0, Chloride 94 L, Carbon Dioxide 25.0, Anion Gap 10, BUN 75 H, Creatinine 10.50 H*, Estim Creat Clear Calc 5.15, Est GFR (MDRD) Af Amer 5 L, Est GFR (MDRD) Non-Af 4 L, BUN/Creatinine Ratio 7.1 L, Glucose 80, Calcium 9.1, Phosphorus 8.7 H, Magnesium 2.3, Total Bilirubin 0.80, AST 15, ALT 11 L, Alkaline Phosphatase 94, Troponin I High Sens 24, Total Protein 7.1, Albumin 2.2 L, Globulin 4.9 H, Albumin/Globulin Ratio 0.4 L, Procalcitonin 0.46 H, TSH 4.57 H, Random Vancomycin 15.9 H Micro: Microbiology 01/22/23 21:51 Mucosa - Nose Respiratory Panel (PCR) - Final 01/22/23 20:15 Urine Catheter - Catheter Legionella Antigen - Final 01/22/23 20:15 Urine Catheter - Catheter Streptococcus pneumoniae Antigen (M - Final Rhythm Strip Rhythm Strip: Sinus Rhythm Rate: 62 Ectopy: None Physical Exam Const alert, oriented x3 and no apparent distress Constitutional Narrative: frail General Appearance: cooperative HEENT normocephalic, head/scalp atraumatic, moist oral mucous membranes and oropharynx normal Eyes PERRL and EOMs intact bilaterally Neck no lymphadenopathy, supple and no JVD Lymph Lymphatic: no lymphadenopathy noted and no lymphedema noted Resp Resp Narrative: diminished breath sounds bibasally, no wheezes or crackles. On 3L of oxygen by nasal canula Cardio regular rate, regular rhythm, S1 normal heart sound, S2 normal heart sound and no murmurs GI normal to inspection, nondistended, normoactive bowel sounds, soft to palpation, non-tender and non-distended Extremity normal capillary refill, no clubbing, cyanosis or edema and no calf tenderness Skin General Skin Exam: no breakdown Neuro CN's II-XII intact bilaterally and no focal motor deficits Motor Exam: strength 5/5 throughout Psych thought process normal and cooperative Mood & Affect: flat affect Assessment & Plan Assessment/Plan (1) ESRD (end stage renal disease) on dialysis: (2) Weakness: (3) Leukocytosis: (4) Pneumonia involving left lung: PLAN: Plan #Probable pneumonia * admitted with weakness and shortness of breath. * CXR showed * on IV vancomycin and zosyn * MRSA screen pending * breathing treatment with bronchodilators * titrate oxygen to maintain sats >90% * blood and sputum cultures pending. * respiratory panel and urine for strep and legionella negative * #Mild exacerbation of HFpEF * has known EF of 50%. * Most recent 2D echo in October 2022 showed mild inferior and inferior septal hypokinesis with severely enlared left atrium and moderately enlarged right atrium, with pulmonary artery systolic pressure of 51mmHg. * dialysis will also help with fluid overload * #chronic respiratory failure due to COPD: on 3L of oxygen which is her baseline. Breathing treatment with bronchodilators #Hyperkalemia: K was 5.4 on admission. Resolved. Likely due to fluid overload #ESRD: on hemodialysis MWF. Had hemodialysis today #Paroxysmal afib: on coreg. Not on anticoagulation due to history of GI bleed. #Anxiety and depression: on mirtazapine and duloxetine. #Chronic anemia * has a history of recurreng GI bleed. hb today is 7.2. Will monitor and transfuse if hb <7 * #Hypertension: on coreg and hydralazine as well as amlodipine. Due to frequent hypotension, also on midodrine #Hyperlipidemia: not on statin. DVT prophylaxis: SCDs Code status: full code Charges/Coding Visit Charges Inpatient E&M: 53332 Subs Hosp L2
[2023-01-23] MEDS: fentaNYL 25 MCG Patch TD (18:15)
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
[2023-01-23] MEDS: Albuterol 2.5 MG/3 ML VIAL.NEB. INHALATION (20:09)
[2023-01-23] MEDS: Mirtazapine 30 MG Tablet PO (21:14)
[2023-01-23] MEDS: Montelukast 10 MG Tablet PO (21:14)
[2023-01-24] VITALS (12 sets, daily range): BP systolic 103–137; BP diastolic 61–75; PULSE 60–85; RESP 16–18; TEMP 36.2–37.1; O2SAT 95–100; BMI 21.2
[2023-01-24] MEDS: Acetaminophen 325 MG Tablet 650 MG PO ×3 (03:45→14:36)
[2023-01-24] MEDS: oxyCODONE 5 MG Tablet PO ×4 (03:46→21:42)
[2023-01-24] MEDS: Dicyclomine 10 MG Capsule 20 MG PO ×3 (06:22→21:35)
[2023-01-24 06:36] LABS: Absolute Lymphocyte Count 0.66 X10^3/uL (0.83-4.51); Absolute Neutrophil Count 5.1 X10^3/uL (2.0-7.7); Basophil# 0.04 X10^3/uL; Basophil% 0.6 % (0-1); Eosinophil# 0.29 X10^3/uL; Eosinophils% 4.3 % (0-5); Hematocrit 27.4 % (37-47); Hemoglobin 8.3 g/dL (12.0-15.0); Lymphocyte # 0.66 X10^3/ul (0.83-4.51); Lymphocyte % 9.7 % (19-41); Mean Corp Hgb Conc 30.3 g/dL (32-36); Mean Corpuscular Volume 85.9 fL (81-99); Mean Platelet Vol. 8.6 fl (6.2-12.0); Monocyte# 0.65 X10^3/uL; Monocyte% 9.5 % (0-10); NRBC Flagged by Analyzer 0.4 % (0-5); Neutrophil # 5.14 X10^3/uL (2.7-7.7); Neutrophil % 75.5 % (47-70); Platelet Count 187 K/mm3 (150-450); RBC Distribution Width CV 18.3 % (11.6-14.6); RBC Distribution Width SD 57.4 fl (35.1-43.9); Red Blood Count 3.19 M/mm3 (4.2-5.4); White Blood Count 6.8 K/mm3 (4.4-11.0)
[2023-01-24] MEDS: Budesonide Respules 0.5 MG/2 ML AMPUL.NEB. INHALATION ×2 (07:12→20:27)
[2023-01-24] MEDS: Albuterol 2.5 MG/3 ML VIAL.NEB. INHALATION ×2 (07:12→20:27)
[2023-01-24 07:38] LABS: Anion Gap 11 (5-15); BUN 57 mg/dL (7-18); BUN/Creat Ratio 6.9 RATIO (10-20); Calcium,Total 9.2 mg/dL (8.5-10.1); Chloride 97 mmol/L (98-107); Creatinine, Serum 8.32 mg/dL (0.55-1.02); EST Glomerular Filtration Rate 5 mL/min (>60); Est Glom Filt Rate - Afr Amer 6 mL/min (>60); Estimated Creatinine Clearance 6.49 ml/min; Glucose 81 mg/dL (74-106); Potassium 4.8 mmol/L (3.5-5.1); Sodium Level 133 mmol/L (136-145)
--- NOTE | 2023-01-24 08:07 | PCM.RX.CS ---
Consult Antibiotic Management Pharmacy has been consulted to manage selected antiobiotic: Vancomycin Type of Intervention Type of Consult: Follow-up Suspected Infection Suspected Infection: Pneumonia Prior Doses of Antibiotics Prior Doses of Antibiotics Received/Current Regimen: Received 500mg iv x 1 post dialysis yesterday. Labs Labs: Sodium 133 mmol/L (136-145) L 01/24/23 06:22 Potassium 4.8 mmol/L (3.5-5.1) 01/24/23 06:22 Chloride 97 mmol/L (98-107) L 01/24/23 06:22 Carbon Dioxide 25.0 mmol/L (21.0-32.0) 01/24/23 06:22 Anion Gap 11 (5-15) 01/24/23 06:22 BUN 57 mg/dL (7-18) H 01/24/23 06:22 Creatinine 8.32 mg/dL (0.55-1.02) H* 01/24/23 06:22 Est GFR (MDRD) Af Amer 6 mL/min (>60) L 01/24/23 06:22 Est GFR (MDRD) Non-Af 5 mL/min (>60) L 01/24/23 06:22 BUN/Creatinine Ratio 6.9 RATIO (10-20) L 01/24/23 06:22 Glucose 81 mg/dL (74-106) 01/24/23 06:22 Random Vancomycin 22.0 ug/mL (0.0-15.0) H 01/24/23 06:22 Microbiology Microbiology: Microbiology 01/22/23 21:51 Mucosa - Nose Respiratory Panel (PCR) - Final 01/22/23 20:15 Urine Catheter - Catheter Legionella Antigen - Final 01/22/23 20:15 Urine Catheter - Catheter Streptococcus pneumoniae Antigen (M - Final Dosing Weight Weight used for dosin.7 kg Goal Trough Goal Trough: 15-20 mcg/mL Pharmacy Plan for Drug Dosing Pharmacy Plan for Drug Dosing: Pharmacy Service will continue to monitor and adjust dosing as required. Random level this AM was 22.0. Will hold any dosing for today per policy and get another random level in AM tomorrow.
--- NOTE | 2023-01-24 08:36 | CASEMGMT ---
REGGIE FAN Follow-up: Response received from [facility] palliative care that confirms pt is active with their palliative care services. Pt was not active with their hospice services and it is unclear which hospice provider is assisting pt with this transition. Noted pt had recently discharged to [facility]. Confidential email communication sent to Hawa, Corporate Lead Pony Rider with [employer] who confirmed pt was discharged home with [facility]. The contact is Melissa Yeung, phone: [phone], email: [email or web address]. Will follow-up with Melissa for further determination of the details related to this transition in care. Yovanny Shankar RN CM
[2023-01-24] MEDS: Folic Acid/Vitamin B Comp W-C 1 Capsule 1 CAP PO (09:54)
[2023-01-24] MEDS: Ferrous Sulfate 325 MG Tablet PO (09:54)
[2023-01-24] MEDS: Carvedilol 12.5 MG Tablet PO ×2 (09:54→21:35)
[2023-01-24] MEDS: amLODIPine 5 MG Tablet PO (09:54)
[2023-01-24] MEDS: DULoxetine Hcl 60 MG Capsule PO (09:54)
[2023-01-24] MEDS: Pantoprazole Sodium 40 MG Tablet PO ×2 (09:54→21:35)
--- NOTE | 2023-01-24 11:13 | PN_ITS ---
Subjective Subjective Patient seen and examined. She had no complaints and had an uneventful night. Review of systems is otherwise negative. She has remained hemodynamically stable. Objective Data Objective Data Vital Signs: Vital Signs Temp Pulse Resp BP Pulse Ox O2 Del Method O2 Flow Rate 97.1 F L 61 18 137/74 H 99 Nasal Cannula 2 01/24/23 09:48 01/24/23 09:48 01/24/23 09:48 01/24/23 09:48 01/24/23 09:48 01/24/23 09:48 01/24/23 09:48 Oxygen Flow Rate (L/min) 2 Oxygen Delivery Method Nasal Cannula Weight: 143 lb 15.39 oz Body Mass Index (BMI) 21.2 Intake & Output: Intake and Output for Last 24 Hours 01/22/23 01/23/23 01/24/23 23:59 23:59 23:59 Intake Total 750 / 750 800 / 800 50 / 50 Output Total 70 / 70 2800 / 2800 0 / 0 Balance 680 / 680 -2000 / -2000 50 / 50 Lab / Micro Data 01/24/23 06:22 01/24/23 06:22 Labs: Laboratory Results - last 24 hr 01/24/23 06:22: WBC 6.8, RBC 3.19 L, Hgb 8.3 L, Hct 27.4 L, MCV 85.9, MCH 26.0 L , MCHC 30.3 L, RDW Std Deviation 57.4 H, RDW Coeff of Destiny 18.3 H, Plt Count 187, MPV 8.6, Immature Gran % (Auto) 0.400, Neut % (Auto) 75.5 H, Lymph % (Auto) 9.7 L, [place] % (Auto) 9.5, Eos % (Auto) 4.3, Baso % (Auto) 0.6, Absolute Neuts (auto) 5.1, Absolute Lymphs (auto) 0.66 L, Nucleated RBC % 0.4, Sodium 133 L, Potassium 4.8, Chloride 97 L, Carbon Dioxide 25.0, Anion Gap 11, BUN 57 H, Creatinine 8.32 H*, Estim Creat Clear Calc 6.49, Est GFR (MDRD) Af Amer 6 L, Est GFR (MDRD) Non- Af 5 L, BUN/Creatinine Ratio 6.9 L, Glucose 81, Calcium 9.2, Random Vancomycin 22.0 H Micro: Microbiology 01/22/23 21:51 Mucosa - Nose Respiratory Panel (PCR) - Final 01/22/23 20:15 Urine Catheter - Catheter Legionella Antigen - Final 01/22/23 20:15 Urine Catheter - Catheter Streptococcus pneumoniae Antigen (M - Final Rhythm Strip Rhythm Strip: Sinus Rhythm Rate: 62 Ectopy: None Physical Exam Const alert, oriented x3 and no apparent distress Constitutional Narrative: frail General Appearance: cooperative HEENT normocephalic, head/scalp atraumatic, moist oral mucous membranes and oropharynx normal Eyes PERRL and EOMs intact bilaterally Neck no lymphadenopathy, supple and no JVD Lymph Lymphatic: no lymphadenopathy noted and no lymphedema noted Resp Resp Narrative: diminished breath sounds bibasally, no wheezes or crackles. On 2L of oxygen by nasal canula Cardio regular rate, regular rhythm, S1 normal heart sound, S2 normal heart sound and no murmurs GI normal to inspection, nondistended, normoactive bowel sounds, soft to palpation, non-tender and non-distended Extremity normal capillary refill, no clubbing, cyanosis or edema and no calf tenderness Skin General Skin Exam: no breakdown Neuro CN's II-XII intact bilaterally and no focal motor deficits Motor Exam: strength 5/5 throughout Psych thought process normal, cooperative and affect normal Mood & Affect: flat affect Assessment & Plan Assessment/Plan (1) ESRD (end stage renal disease) on dialysis: (2) Weakness: (3) Leukocytosis: (4) Pneumonia involving left lung: PLAN: Plan #Probable pneumonia * breathing has improved. * CXR on admission showed a new left perihilar infiltrate which could be pneumonia * on IV vancomycin and zosyn * MRSA screen pending * breathing treatment with bronchodilators * titrate oxygen to maintain sats >90% * blood and sputum cultures pending. * respiratory panel and urine for strep and legionella negative * #Mild exacerbation of HFpEF * has known EF of 50%. * Most recent 2D echo in October 2022 showed mild inferior and inferior septal hypokinesis with severely enlared left atrium and moderately enlarged right atrium, with pulmonary artery systolic pressure of 51mmHg. * breathing has improved markedly * #chronic respiratory failure due to COPD: on 3L of oxygen which is her baseline. Breathing treatment with bronchodilators #Hyperkalemia: resolved. #ESRD: on hemodialysis MWF. For dialysis tomorrow #Paroxysmal afib: on coreg. Not on anticoagulation due to history of GI bleed. #Anxiety and depression: on mirtazapine and duloxetine. #Chronic anemia * has a history of recurreng GI bleed. hb today is 8.3. Will monitor and transfuse if hb <7 * #Hypertension: on coreg and hydralazine as well as amlodipine. Due to frequent hypotension, also on midodrine #Hyperlipidemia: not on statin. DVT prophylaxis: SCDs Code status: full code Disposition: for likely dc tomorrow Charges/Coding Visit Charges Inpatient E&M: 74340 Subs Hosp L2
--- NOTE | 2023-01-24 11:19 | PN.RENAL_ITS ---
Subjective Subjective No new complaints today. Objective Data Objective Data Vital Signs: Vital Signs Temp Pulse Resp BP Pulse Ox O2 Del Method O2 Flow Rate 97.1 F L 61 18 137/74 H 99 Nasal Cannula 2 01/24/23 09:48 01/24/23 09:48 01/24/23 09:48 01/24/23 09:48 01/24/23 09:48 01/24/23 09:48 01/24/23 09:48 Oxygen Flow Rate (L/min) 2 Oxygen Delivery Method Nasal Cannula Weight: 65.3 kg Body Mass Index (BMI) 21.2 Intake & Output: Intake and Output for Last 24 Hours 01/22/23 01/23/23 01/24/23 23:59 23:59 23:59 Intake Total 750 / 750 800 / 800 50 / 50 Output Total 70 / 70 2800 / 2800 0 / 0 Balance 680 / 680 -1999 / -1999 50 / 50 Lab / Micro Data 01/24/23 06:22 01/24/23 06:22 Labs: Laboratory Results - last 24 hr 01/24/23 06:22: WBC 6.8, RBC 3.19 L, Hgb 8.3 L, Hct 27.4 L, MCV 85.9, MCH 26.0 L , MCHC 30.3 L, RDW Std Deviation 57.4 H, RDW Coeff of Destiny 18.3 H, Plt Count 187, MPV 8.6, Immature Gran % (Auto) 0.400, Neut % (Auto) 75.5 H, Lymph % (Auto) 9.7 L, [place] % (Auto) 9.5, Eos % (Auto) 4.3, Baso % (Auto) 0.6, Absolute Neuts (auto) 5.1, Absolute Lymphs (auto) 0.66 L, Nucleated RBC % 0.4, Sodium 133 L, Potassium 4.8, Chloride 97 L, Carbon Dioxide 25.0, Anion Gap 11, BUN 57 H, Creatinine 8.32 H*, Estim Creat Clear Calc 6.49, Est GFR (MDRD) Af Amer 6 L, Est GFR (MDRD) Non- Af 5 L, BUN/Creatinine Ratio 6.9 L, Glucose 81, Calcium 9.2, Random Vancomycin 22.0 H Micro: Microbiology 01/22/23 21:51 Mucosa - Nose Respiratory Panel (PCR) - Final 01/22/23 20:15 Urine Catheter - Catheter Legionella Antigen - Final 01/22/23 20:15 Urine Catheter - Catheter Streptococcus pneumoniae Antigen (M - Final Rhythm Strip Rhythm Strip: Sinus Rhythm Rate: 62 Ectopy: None Physical Exam Narrative Alert awake oriented x 3 no obvious distress no pallor no icterus no JVD s1s2 no murmurs lungs clear abdomen soft no organomegaly no edema no cyanosis Assessment & Plan Assessment/Plan (1) ESRD (end stage renal disease) on dialysis: PLAN: ESRD Hyperkalemia As outpatient she is on Sunday, Sunday, Sunday schedule. She had dialysis 01/23/2023. For this week we will dialyze her on and Sunday. Discussed with hospitalist, possible discharge tomorrow. We will plan for dialysis before discharge tomorrow and then she will get dialysis as outpatient on Sunday. Anemia. Hemoglobin is better. She gets long-term ANGELI with dialysis.
--- NOTE | 2023-01-24 15:19 | CASEMGMT ---
Addendum entered by Musa Dalal 01/24/23 17:43: 1545: Call received from Melissa, stating they made a referral to [facility] last Sun and had not heard back from them. REGGIE FAN informed her, per [facility], pt is active w/them. Per Melissa, they will be reaching out to pt's son and plan to parts picker the DME that hospice had provided for pt on either or Sunday. She states this includes: Hospital bed, air mattress, Oxygen, W/C, nebulizer, and bedside table. She states they had not started with getting DME set up for pt in the home yet and then pt was admitted to [facility]. REGGIE FAN to room. Introduced self to pt, who was resting quietly in bed. Per pt, the reason from revoking hospice, from her understanding, was that she felt her medications were getting all messed up. She asked REGGIE FAN to contact her son, Jose, as he has been assisting her w/her care and that he would be able to further discuss goals of care. REGGIE FAN placed call to Jose. Per Jose, pt felt like she was getting stronger and is not at a place now where she wants to give up, and therefore they do not wish to continue w/Hospice care, but wants more supportive/symptom mgmt with Palliative. He was made aware pt is now active w/[facility] and he voices appreciation. He states [facility] has contacted him and he is aware the plan is for them to come parts picker their provided DME in the home. He states they will still need the following: hospital bed, W/C, nebulizer, and Oxygen. He denies having preference of DME co. REGGIE FAN informed that pt's insurance, [facility], has contracted w/[employer] [facility] as of 12/30/2022 and is now the preferred/only DME provider. Original Note: REGGIE FAN NOTE: Call placed to REGGIE Torres CM @ [facility], to clarify what DME they will be removing from pt's home and what they are assisting pt with in transferring to Palliative. No answer. VM left for Melissa to return call to this REGGIE FAN. Tanmay GARCIA RN, CM
[2023-01-24] MEDS: Midodrine HCl 5 MG Tablet 10 MG PO (16:52)
[2023-01-24] MEDS: Mirtazapine 30 MG Tablet PO (21:34)
[2023-01-24] MEDS: Montelukast 10 MG Tablet PO (21:35)
[2023-01-25] VITALS (21 sets, daily range): BP systolic 64–210; BP diastolic 68–98; PULSE 57–87; RESP 12–21; TEMP 36.4–37; O2SAT 86–100; BMI 21.5; BMI 21.1
[2023-01-25 05:53] LABS: Absolute Lymphocyte Count 0.89 X10^3/uL (0.83-4.51); Absolute Neutrophil Count 4.2 X10^3/uL (2.0-7.7); Basophil# 0.03 X10^3/uL; Basophil% 0.5 % (0-1); Eosinophil# 0.31 X10^3/uL; Hematocrit 24.2 % (37-47); Hemoglobin 7.3 g/dL (12.0-15.0); Lymphocyte # 0.89 X10^3/ul (0.83-4.51); Lymphocyte % 14.3 % (19-41); Mean Corp Hgb Conc 30.2 g/dL (32-36); Mean Corpuscular Hgb 25.9 pg (27.0-32.0); Mean Corpuscular Volume 85.8 fL (81-99); Mean Platelet Vol. 9.3 fl (6.2-12.0); Monocyte# 0.76 X10^3/uL; Monocyte% 12.2 % (0-10); NRBC Flagged by Analyzer 0 % (0-5); Neutrophil % 67.7 % (47-70); Platelet Count 178 K/mm3 (150-450); RBC Distribution Width CV 18.6 % (11.6-14.6); RBC Distribution Width SD 57.8 fl (35.1-43.9); Red Blood Count 2.82 M/mm3 (4.2-5.4); White Blood Count 6.2 K/mm3 (4.4-11.0)
[2023-01-25] MEDS: Dicyclomine 10 MG Capsule 20 MG PO ×2 (06:22→14:07)
[2023-01-25 06:31] LABS: Anion Gap 10 (5-15); BUN 61 mg/dL (7-18); BUN/Creat Ratio 6.8 RATIO (10-20); Chloride 97 mmol/L (98-107); Creatinine, Serum 8.95 mg/dL (0.55-1.02); EST Glomerular Filtration Rate 5 mL/min (>60); Est Glom Filt Rate - Afr Amer 6 mL/min (>60); Glucose 71 mg/dL (74-106); Sodium Level 132 mmol/L (136-145)
[2023-01-25] MEDS: Budesonide Respules 0.5 MG/2 ML AMPUL.NEB. INHALATION ×2 (07:21→20:55)
[2023-01-25] MEDS: Albuterol 2.5 MG/3 ML VIAL.NEB. INHALATION (07:21)
[2023-01-25] MEDS: PureFlow B 2K Dialysis Soln 1 BAG 6 BAG PF (08:01)
[2023-01-25] MEDS: 0.9% Normal Saline 1,000 ML IV.SOLN. 1000 ML OPERA.SITE (08:18)
[2023-01-25] MEDS: 0.9% Saline Lock 10 ML Syringe IV ×2 (08:19→10:49)
[2023-01-25 08:37] LABS: Vancomycin, Random Level 18.7 ug/mL (0.0-15.0)
--- NOTE | 2023-01-25 09:20 | PCM.RX.CS ---
Consult Antibiotic Management Pharmacy has been consulted to manage selected antiobiotic: Vancomycin Type of Intervention Type of Consult: Follow-up Suspected Infection Suspected Infection: Pneumonia Prior Doses of Antibiotics Prior Doses of Antibiotics Received/Current Regimen: 1000 MG X 2 ON 01/22/23 @ 1630 500 MG AFTER HD ON 01/23/23 Labs Labs: Sodium 132 mmol/L (136-145) L 01/25/23 05:22 Potassium 5.0 mmol/L (3.5-5.1) 01/25/23 05:22 Chloride 97 mmol/L (98-107) L 01/25/23 05:22 Carbon Dioxide 25.0 mmol/L (21.0-32.0) 01/25/23 05:22 Anion Gap 10 (5-15) 01/25/23 05:22 BUN 61 mg/dL (7-18) H 01/25/23 05:22 Creatinine 8.95 mg/dL (0.55-1.02) H* 01/25/23 05:22 Est GFR (MDRD) Af Amer 6 mL/min (>60) L 01/25/23 05:22 Est GFR (MDRD) Non-Af 5 mL/min (>60) L 01/25/23 05:22 BUN/Creatinine Ratio 6.8 RATIO (10-20) L 01/25/23 05:22 Glucose 71 mg/dL (74-106) L 01/25/23 05:22 Random Vancomycin 18.7 ug/mL (0.0-15.0) H 01/25/23 07:50 Microbiology Microbiology: Microbiology 01/22/23 14:45 Blood Culture (Wb) - Left Forearm Blood Culture - Preliminary No growth in 48 hours. 01/22/23 14:44 Blood Culture (Wb) - Right Hand Blood Culture - Preliminary No growth in 48 hours. 01/22/23 21:51 Mucosa - Nose Respiratory Panel (PCR) - Final 01/22/23 20:15 Urine Catheter - Catheter Legionella Antigen - Final 01/22/23 20:15 Urine Catheter - Catheter Streptococcus pneumoniae Antigen (M - Final Dosing Weight Weight used for dosin.7 kg Estimated Creatinine Clearance Estimated Creatinine Clearance: Pt on HD Goal Trough Goal Trough: 15-20 mcg/mL Pharmacy Plan for Drug Dosing Pharmacy Plan for Drug Dosing: Random level this AM prior to HD is 18.7, will give 500 mg dose after HD today with another random level tomorrow before HD. Pharmacy Service will continue to monitor and adjust dosing as required. Follow-Up Labs Follow-Up Labs: Trough: Vancomycin (Random) Date/Time Labs Ordered Labs to be done on [date and time ordered]: 01/26/23 @ 0600 prior to HD
--- NOTE | 2023-01-25 10:30 | CASEMGMT ---
Addendum entered by Musa Dalal 01/25/23 20:34: F2F faxed to [facility] w/documentation supporting need of Hospital bed and O2. Addendum entered by Musa Dalal 01/25/23 18:05: 5:30 PM. Sherley from [facility] has delivered portable O2 tank to pt's room. 6PM. Confidential e-mail sent to [facility] to notify them pt is discharging this PM. Addendum entered by Musa Dalal 01/25/23 18:00: 3:40 PM: Per [facility], DME equipment will be picked up from pt's home around 4:30 PM. Call to Sherley @ [facility]/Pam made aware. She was made aware pt qualifies for home O2 and that script has been faxed to them. She verifies it was received. She states she will deliver portable O2 tank to pt at the hospital in about an hour and she will contact pt's son, Jose, to make arrangements to have DME delivered/set up @ pt's home this PM, including hospital bed, W/C, nebulizer, and Home O2. Call to Jose and he was made aware of the above. He plans to come pick pt up after DME has been set up @ their home tonight and will take pt home. Discussed HHC w/Jose and he was made aware HHC unable to be set up until pt seen/established w/PCP. He is not sure if they want HHC at this time. He was made aware to discuss HHC w/pt's PCP when they go in for her appt, if they are interested in getting this set up. He voices understanding. He denies having other discharge planning needs or concerns. He plans to take pt [facility]t tomorrow. Pt made aware of all of the above and voices appreciation. She also denies having other d/c planning needs. Call to [facility] and spoke w/Yadira. She was made aware pt is discharging home this PM. She confirms pt is on the schedule for HD tomorrow. Addendum entered by Musa Dalal 01/25/23 12:39: REGGIE FAN spoke w/Melissa @ [facility] to inquire when they would be picking up the Hospice DME from pt's home. She states it will be today, but is unsure of time. She states she will call this RN CM once this is determined. Per Shelrey @ [facility], they do have hospital beds available and may be able to deliver to pt's home today. She is awaiting call back from this RN CM re: when hospice equipment will be removed from the home, d/t son states they do not have room in the home for 2 hospital beds. Per son, he would like assistance w/pt getting established w/PCP. He states would prefer [facility], if possible. Call to Ramandeep @ [facility] who states they are not in network w/pt's insurance. List of PCP's that are in-network w/pt's insurance to be provided to son. Original Note: RN MITA NOTE: Script for hospital bed, W/C w/elevating leg rests, and nebulizer obtained from Dr Smith and faxed to [facility]. Call to [facility] and notified them pt to discharge home today, as long as DME can be set up for pt. Per [facility] rep, she is unsure if this can be done today and will call this RN CM back once she checks on this. Tanmay GARCIA RN CM
--- NOTE | 2023-01-25 10:35 | PN.RENAL_ITS ---
Subjective Subjective Says she does not feel well overall. No chest pain/shortness of breath. Objective Data Objective Data Vital Signs: Vital Signs Temp Pulse Resp BP Pulse Ox O2 Del Method O2 Flow Rate 97.6 F L 67 16 162/88 H 99 Nasal Cannula 3 01/25/23 08:15 01/25/23 10:31 01/25/23 10:31 01/25/23 10:31 01/25/23 10:31 01/25/23 10:31 01/25/23 10:31 Oxygen Flow Rate (L/min) 3 Oxygen Delivery Method Nasal Cannula Weight: 66.1 kg Body Mass Index (BMI) 21.5 Intake & Output: Intake and Output for Last 24 Hours 01/23/23 01/24/23 01/25/23 23:59 23:59 23:59 Intake Total 800 / 800 700 / 1200 850 / 850 Output Total 2800 / 2800 1400 / 1400 0 / 0 Balance -2000 / -2000 -700 / -200 850 / 850 Lab / Micro Data 01/25/23 05:22 01/25/23 05:22 Labs: Laboratory Results - last 24 hr 01/25/23 05:22: WBC 6.2, RBC 2.82 L, Hgb 7.3 L, Hct 24.2 L, MCV 85.8, MCH 25.9 L , MCHC 30.2 L, RDW Std Deviation 57.8 H, RDW Coeff of Destiny 18.6 H, Plt Count 178, MPV 9.3, Immature Gran % (Auto) 0.300, Neut % (Auto) 67.7, Lymph % (Auto) 14.3 L , Major % (Auto) 12.2 H, Eos % (Auto) 5.0, Baso % (Auto) 0.5, Absolute Neuts (auto) 4.2, Absolute Lymphs (auto) 0.89, Nucleated RBC % 0, Sodium 132 L, Potassium 5.0, Chloride 97 L, Carbon Dioxide 25.0, Anion Gap 10, BUN 61 H, Cr eatinine 8.95 H*, Estim Creat Clear Calc 6.10, Est GFR (MDRD) Af Amer 6 L, Est GFR (MDRD) Non-Af 5 L, BUN/Creatinine Ratio 6.8 L, Glucose 71 L, Calcium 9.0 01/25/23 07:50: Random Vancomycin 18.7 H Micro: Microbiology 01/22/23 14:45 Blood Culture (Wb) - Left Forearm Blood Culture - Preliminary No growth in 48 hours. 01/22/23 14:44 Blood Culture (Wb) - Right Hand Blood Culture - Preliminary No growth in 48 hours. 01/22/23 21:51 Mucosa - Nose Respiratory Panel (PCR) - Final 01/22/23 20:15 Urine Catheter - Catheter Legionella Antigen - Final 01/22/23 20:15 Urine Catheter - Catheter Streptococcus pneumoniae Antigen (M - Final Rhythm Strip Rhythm Strip: Sinus Rhythm Rate: 62 Ectopy: None Physical Exam Narrative Alert awake oriented x 3 no obvious distress no pallor no icterus no JVD s1s2 no murmurs lungs clear abdomen soft no organomegaly no edema no cyanosis Assessment & Plan Assessment/Plan (1) ESRD (end stage renal disease) on dialysis: PLAN: ESRD Hyperkalemia As outpatient she is on Sunday, Sunday, Sunday schedule. Seen on dialysis today. Next dialysis tomorrow as outpatient if discharged today. Anemia. Hemoglobin is better. She gets long-term ANGELI with dialysis. Hyperkalemia. Improved.
--- NOTE | 2023-01-25 10:39 | EKG12_ITS ---
Test Reason : CP Blood Pressure : / mmHG Vent. Rate : 082 BPM Atrial Rate : 000 BPM P-R Int : 000 ms QRS Dur : 084 ms QT Int : 378 ms P-R-T Axes : 000 001 101 degrees QTc Int : 441 ms Atrial fibrillation Nonspecific T wave abnormality Abnormal ECG When compared with ECG of 22-JAN-2023 12:47, Atrial fibrillation has replaced Sinus rhythm Nonspecific T wave abnormality, worse in Anterolateral leads Confirmed by TERE LEMON, JAN ([id number]), international editorial producer BIRDIE TORRES ([id number]) on 01/26/2023 12:47:46 PM Referred By: BRENNAN Confirmed By:JAN CARRANZA MD
--- NOTE | 2023-01-25 12:03 | DS.PCM_ITS ---
Providers Date of Admission: 01/22/23 Date of Discharge: 01/25/23 Primary Care Physician: Yen Valdez, JOE Consultations 01/22/23 16:03 Consult: Nephrology Routine Consulting Provider: Soraida Sears Reason for Consult: ESRD on HD EMERGENT Consult: No MD Notified: Yes Date Notified: 01/22/23 Time Notified: 15:15 Method of Notification: ED Physician Initiated Reason For Visit: PNEUMONIA, CHF EXACERBATION Diagnosis Discharge Diagnosis (1) ESRD (end stage renal disease) on dialysis: Status: Acute Code(s): N18.6 - End stage renal disease; Z99.2 - Dependence on renal dialysis Plan #Probable pneumonia * breathing has improved. * CXR on admission showed a new left perihilar infiltrate which could be pneumonia * on IV vancomycin and zosyn * MRSA screen pending * breathing treatment with bronchodilators * titrate oxygen to maintain sats >90% * blood and sputum cultures pending. * respiratory panel and urine for strep and legionella negative * #Mild exacerbation of HFpEF * has known EF of 50%. * Most recent 2D echo in October 2022 showed mild inferior and inferior septal hypokinesis with severely enlared left atrium and moderately enlarged right at rium, with pulmonary artery systolic pressure of 51mmHg. * breathing has improved markedly * #chronic respiratory failure due to COPD: on 3L of oxygen which is her baseline. Breathing treatment with bronchodilators #Hyperkalemia: resolved. #ESRD: on hemodialysis MWF. For dialysis tomorrow #Paroxysmal afib: on coreg. Not on anticoagulation due to history of GI bleed. #Anxiety and depression: on mirtazapine and duloxetine. #Chronic anemia * has a history of recurreng GI bleed. hb today is 8.3. Will monitor and transfuse if hb <7 * #Hypertension: on coreg and hydralazine as well as amlodipine. Due to frequent hypotension, also on midodrine #Hyperlipidemia: not on statin. DVT prophylaxis: SCDs Code status: full code Disposition: for likely dc tomorrow Medications at Discharge Home Medications dicyclomine 20 mg tablet 20 mg PO TID IRRITABLE BOWELS 02/26/21 montelukast 10 mg tablet (Singulair) 10 mg PO QHS ALLERGIES 10/25/21 midodrine 10 mg tablet 10 mg PO MOWEFR BLOOD PRESSURE 02/23/22 duloxetine 60 mg capsule,delayed release 60 mg PO DAILY DEPRESSION 05/19/22 polyethylene glycol 3350 17 gram/dose oral powder (Miralax) 17 g PO DAILY CONSTIPATION 05/19/22 tiotropium bromide 2.5 mcg/actuation mist for inhalation (Spiriva Respimat) 2 puff inhalation DAILY SHORTNESS OF BREATH 05/19/22 pantoprazole 40 mg tablet,delayed release 40 mg PO BID ACID REFLUX 10/20/22 vitamin B complex-vitamin C-folic acid 0.8 mg tablet (Lizabeth-Leiza) 1 tab PO DAILY SUPPLEMENT 10/30/22 albuterol sulfate 90 mcg/actuation aerosol inhaler 2 puff inhalation Q6H PRN SOB 30 days #0 grams 11/01/22 hydralazine 100 mg tablet 50 mg (1/2 x 100 mg) PO TID BLOOD PRESSURE 30 days #0 tabs 11/01/22 acetaminophen 325 mg tablet (Tylenol) 650 mg PO Q4H PRN PRN Pain/fever 11/09/22 albuterol sulfate 2.5 mg/3 mL (0.083 %) solution for nebulization 2.5 mg inhalation Q2H PRN SOB/Wheezing 11/09/22 amlodipine 5 mg tablet 5 mg PO DAILY BLOOD PRESSURE 11/09/22 ferrous sulfate 325 mg (65 mg iron) tablet (FeroSul) 325 mg PO QODAY SUPPLEMENT 11/09/22 mirtazapine 30 mg tablet 30 mg PO QHS DEPRESSION 11/09/22 sennosides 8.6 mg-docusate sodium 50 mg tablet (Stool Softener-Stimulant Laxative) 2 tab PO BID PRN CONSTIPATION 11/09/22 acetaminophen 650 mg rectal suppository 650 mg WV Q4H PRN pain/fever 12/10/22 aluminum-magnesium hydroxide 225 mg-200 mg/5 mL oral suspension 30 ml PO Q4H PRN GI distress 12/10/22 bisacodyl 10 mg rectal suppository 10 mg WV DAILY PRN Constipation 12/10/22 fluticasone furoate 200 mcg-vilanterol 25 mcg/dose inhalation powder (Breo Ellipta) 1 ea inhalation DAILY COPD 12/10/22 carvedilol 12.5 mg tablet 12.5 mg PO BID blood pressure #0 tabs 12/12/22 fentanyl 25 mcg/hr transdermal patch 1 patch transdermal Q72H severe pain 01/23/23 hydroxyzine HCl 25 mg tablet 25 mg PO Q4H PRN itching 01/23/23 hyoscyamine sulfate 0.125 mg tablet 0.125 mg PO Q4H PRN excess secretions 01/23/23 lorazepam 0.5 mg tablet (Ativan) 0.5 mg PO Q4H PRN anxiety 01/23/23 ondansetron 4 mg disintegrating tablet 4 mg PO Q6H PRN nausea/vomiting 01/23/23 doxycycline hyclate 100 mg capsule 100 mg PO BID #10 caps 01/25/23 Hospital Course Operations None Procedures Dialysis Summary of Care Provided Minutes Spent on Discharge: 50 Hospital Course: Patient is a 72 y/o female with an extensive PMH as outlined who was admitted via the ED on 01/25/2023 with a complaint of weakness and worsening shortness of breath. She denied any fever or chills and complained of chest pain which was pleuritic. CXR showed a new left perihilar infiltrate secondary to pneumonia and small bilateral pleural effusion. She was admitted and managed for probable pneumonia. She was started on IV vancomycin and zosyn. Nephrology was also consulted for dialysis. His symptoms improved with dialysis and she felt much better. His shortness of breath resolved. Arranged for strep and Legionella as well as respiratory panel were negative. She remained stable and came to her baseline. Patient had been on hospice but had revoked hospice. She was therefore discharged home on 01/25/2023 and is follow-up with her primary care doctor and nephrology within 1 to 2 weeks. She was discharged home with a prescription for p.o. doxycycline 100 mg twice daily for 5 days. Patient seen and examined prior to discharge. She had no active complaints. Review of systems otherwise negative. Labs and vitals reviewed. Home medication reviewed and reconciled. Physical Exam Const alert, oriented x3 and no apparent distress Constitutional Narrative: frail General Appearance: cooperative and comfortable HEENT normocephalic, head/scalp atraumatic, hearing grossly normal bilaterally, moist oral mucous membranes and oropharynx normal Eyes PERRL and EOMs intact bilaterally Neck no lymphadenopathy, supple and no JVD Lymph Lymphatic: no lymphadenopathy noted and no lymphedema noted Resp Resp Narrative: diminished breath sounds bibasally, no wheezes or crackles. On 2L of oxygen by nasal canula Cardio regular rate, regular rhythm, S1 normal heart sound, S2 normal heart sound and no murmurs GI normal to inspection, nondistended, normoactive bowel sounds, soft to palpation, non-tender and non-distended Extremity normal capillary refill, no clubbing, cyanosis or edema and no calf tenderness Skin General Skin Exam: no breakdown Neuro oriented x3, CN's II-XII intact bilaterally, moves all extremities and no focal motor deficits Sensorium / Orientation: awake Motor Exam: strength 5/5 throughout Psych thought process normal, cooperative and affect normal Mood & Affect: flat affect Weight / BMI Weight Weight: 143 lb 1.28 oz Body Mass Index (BMI) 21.1 ABG / Lab / Microbiology Data 01/25/23 05:22 01/25/23 05:22 Laboratory: Laboratory Results - last 24 hr 01/25/23 05:22: WBC 6.2, RBC 2.82 L, Hgb 7.3 L, Hct 24.2 L, MCV 85.8, MCH 25.9 L , MCHC 30.2 L, RDW Std Deviation 57.8 H, RDW Coeff of Destiny 18.6 H, Plt Count 178, MPV 9.3, Immature Gran % (Auto) 0.300, Neut % (Auto) 67.7, Lymph % (Auto) 14.3 L , [place] % (Auto) 12.2 H, Eos % (Auto) 5.0, Baso % (Auto) 0.5, Absolute Neuts (auto) 4.2, Absolute Lymphs (auto) 0.89, Nucleated RBC % 0, Sodium 132 L, Potassium 5.0, Chloride 97 L, Carbon Dioxide 25.0, Anion Gap 10, BUN 61 H, Creatinine 8.95 H*, Estim Creat Clear Calc 6.10, Est GFR (MDRD) Af Amer 6 L, Est GFR (MDRD) Non-Af 5 L, BUN/Creatinine Ratio 6.8 L, Glucose 71 L, Calcium 9.0 01/25/23 07:50: Random Vancomycin 18.7 H Microbiology: Microbiology 01/22/23 14:45 Blood Culture (Wb) - Left Forearm Blood Culture - Preliminary No growth in 48 hours. 01/22/23 14:44 Blood Culture (Wb) - Right Hand Blood Culture - Preliminary No growth in 48 hours. 01/22/23 21:51 Mucosa - Nose Respiratory Panel (PCR) - Final 01/22/23 20:15 Urine Catheter - Catheter Legionella Antigen - Final 01/22/23 20:15 Urine Catheter - Catheter Streptococcus pneumoniae Antigen (M - Final D/C Instructions Discharge Diet: Low fat / Low cholesterol Weight Bearing Status: Weight bearing as tolerated Call your doctor if you observe: Fever of 101 or Higher, Shortness of breath, Dizziness, Swelling in the ankles and Chest pain Meaningful Use Info Meaningful Use Diagnoses (Choose all that apply): CHF CHF NATALIA/ARB ordered at discharge?: No Reason NATALIA/ARB not ordered?: Worsening renal disease Documented LVEF (%): 50 Discharge Plan Admission Admit Date/Time: 01/22/23 15:12 Primary Reason for Your Visit: pneumonia Attending Provider: Malu Smith Primary Care Provider: Mariela Hobbs Consulting Providers: Soraida Sears; Reema Cai Instructions Patient Instructions: ED Pneumonia (Adult) Discharge Orders/Prescriptions Prescriptions: New doxycycline hyclate 100 mg capsule 100 mg PO BID Qty: 10 0RF Continued dicyclomine 20 mg tablet 20 mg PO TID montelukast [Singulair] 10 mg Tablet 10 mg PO QHS midodrine 10 mg tablet 10 mg PO MOWEFR Spiriva Respimat 2.5 mcg/actuation Mist 2 puff INHALATION DAILY duloxetine 60 mg capsule,delayed release(DR/EC) 60 mg PO DAILY polyethylene glycol 3350 [Miralax] 17 gram/dose powder 17 g PO DAILY pantoprazole 40 mg tablet,delayed release (DR/EC) 40 mg PO BID Lizabeth-Eliza 0.8 mg Tablet 1 tab PO DAILY hydralazine 100 MG tablet 50 mg PO TID 30 Days Qty: 0 0RF Rx Instructions: Hold for SBP less than 130 mmHg albuterol sulfate 90 mcg/actuation HFA aerosol inhaler 2 puff inhalation Q6H PRN (Reason: SOB) 30 Days Qty: 0 0RF mirtazapine 30 mg Tablet 30 mg PO QHS acetaminophen [Tylenol] 325 mg tablet 650 mg PO Q4H PRN PRN (Reason: Pain/fever) albuterol sulfate 2.5 mg /3 mL (0.083 %) solution for nebulization 2.5 mg inhalation Q2H PRN (Reason: SOB/Wheezing) amlodipine 5 mg tablet 5 mg PO DAILY ferrous sulfate [FeroSul] 325 mg (65 mg iron) tablet 325 mg PO QODAY sennosides-docusate sodium [Stool Softener-Stimulant Laxat] 8.6-50 mg tablet 2 tab PO BID PRN (Reason: CONSTIPATION ) fluticasone furoate-vilanterol [Breo Ellipta] 200-25 mcg/dose blister with device 1 ea INHALATION DAILY Patient Comments: Inhale 1 puff as directed once a day acetaminophen 650 mg Suppository 650 mg WV Q4H PRN (Reason: pain/fever) bisacodyl 10 mg Suppository 10 mg WV DAILY PRN (Reason: Constipation) aluminum-magnesium hydroxide 225-200 mg/5 mL Suspension 30 ml PO Q4H PRN (Reason: GI distress) carvedilol 12.5 mg Tablet 12.5 mg PO BID Qty: 0 0RF fentanyl 25 mcg/hr patch 72 hour 1 patch transdermal Q72H Patient Comments: APPLY 1 (ONE) PATCH TO SKIN EVERY 72 HOURS hydroxyzine HCl 25 mg tablet 25 mg PO Q4H PRN (Reason: itching ) hyoscyamine sulfate 0.125 mg tablet 0.125 mg PO Q4H PRN (Reason: excess secretions ) Patient Comments: Take 0.125 mg by mouth as directed lorazepam [Ativan] 0.5 mg tablet 0.5 mg PO Q4H PRN (Reason: anxiety) Patient Comments: Take 0.5 mg by mouth as needed ondansetron 4 mg tablet,disintegrating 4 mg PO Q6H PRN (Reason: nausea/vomiting ) Patient Comments: Take 4 mg by mouth as needed Referrals / Follow Up: Mariela Hobbs MD [Primary Care Provider] - 02/13/23 10:00 am (Please arrive 15 min early) Soraida Sears MD [Med Staff - Consulting] - Within 1 Week Disposition Disposition (needs filled in before D/C Order can be placed): Home, Self Care Charges/Coding Visit Charges Inpatient E&M: 78533 Disch Hosp >30min
[2023-01-25] MEDS: Carvedilol 12.5 MG Tablet PO (12:10)
[2023-01-25] MEDS: DULoxetine Hcl 60 MG Capsule PO (12:11)
[2023-01-25] MEDS: Folic Acid/Vitamin B Comp W-C 1 Capsule 1 CAP PO (12:11)
[2023-01-25] MEDS: amLODIPine 5 MG Tablet PO (12:11)
[2023-01-25] MEDS: Pantoprazole Sodium 40 MG Tablet PO (12:11)
--- NOTE | 2023-01-25 13:15 | CASEMGMT ---
Discharge Planning List of local PCPs in network with patients insurance reviewed with patient son via phone. Jose gave several choices. Appt was made with Mariela Hobbs MD with [facility] for 02/13 @ 10a. Son and RN CM notified. Adele Roman, Discharge Planning Asst.
--- NOTE | 2023-01-25 13:38 | PHA.DC_ITS ---
Pharmacy [facility] Service has performed discharge medication reconciliation and counseling for this patient. The patient was counseled on the following discharge medications and changes in medications for homegoing were reviewed. 1. DOXYCYCLINE The Reason for Use, instructions for use, and potential side effects were reviewed for all new medications. The patient's questions regarding all of their medications were answered. The patient was able to verbally demonstrate an understanding of their discharge medications. The patient's discharge medication list was reviewed for discrepancies and discrepancies were resolved. Patient was counselled by Joshua Washington PharmD Candidate
[2023-01-25] MEDS: Acetaminophen 325 MG Tablet 650 MG PO (14:05)
[2023-01-25] MEDS: oxyCODONE 5 MG Tablet PO (14:07)
[2023-01-25] MEDS: Vancomycin IV 500 MG/100 ML BAG 100 MG IV (16:46)
[2023-01-25] MEDS: Ipratropium/Albuterol Sulfate 3 ML AMPUL.NEB INHALATION (20:55)
== END 2023-01-25 21:40 | disposition home or self-care (01) | DRG 193 ==
LOC: ED 15:06 → PCU 15:24
PROVIDERS: Admitting Provider Family Medicine; Emergency Provider Emergency Medicine; PCP Internal Medicine; Visit Provider Student in an Organized Health Care Education/Training Program
DX: J18.9 Pneumonia, unspecified organism (principal); N18.6 End stage renal disease; I50.33 Acute on chronic diastolic (congestive) heart failure; J96.11 Chronic respiratory failure with hypoxia; I13.2 Hypertensive heart and chronic kidney disease with heart failure and with stage 5 chronic kidney disease, or end stage renal disease; D63.1 Anemia in chronic kidney disease; I48.0 Paroxysmal atrial fibrillation; J43.9 Emphysema, unspecified; Z99.2 Dependence on renal dialysis; E11.22 Type 2 diabetes mellitus with diabetic chronic kidney disease; E78.00 Pure hypercholesterolemia, unspecified; I25.10 Atherosclerotic heart disease of native coronary artery without angina pectoris; E87.5 Hyperkalemia; F32.A Depression, unspecified; F41.9 Anxiety disorder, unspecified; G89.4 Chronic pain syndrome; Z99.81 Dependence on supplemental oxygen; Z79.51 Long term (current) use of inhaled steroids; Z79.891 Long term (current) use of opiate analgesic; Z79.899 Other long term (current) drug therapy; Z87.19 Personal history of other diseases of the digestive system; Z86.73 Personal history of transient ischemic attack (TIA), and cerebral infarction without residual deficits; Z87.891 Personal history of nicotine dependence
CPT/HCPCS: 36415; 71045; 80048; 80053; 80202; 81001; 82140; 83605; 83735; 84100; 84145; 84443; 84484; 85025; 87040; 87449; 87633; 87641; 90937; 93005; 94640; 94668; 97802; 99285; J7030; J7040; A4216; G0257; J2405

== ENCOUNTER 2023-01-25 23:34 | Inpatient (IN) | payer MEDICARE, MEDICAID, SELFPAY ==
[2023-01-25 23:37] VITALS: BP 146/101; PULSE 102; RESP 25; TEMP 35.7; O2SAT 100; BMI 20.8
[2023-01-25 23:40] VITALS: PULSE 94; RESP 12; RESP 30; O2SAT 100
[2023-01-25 23:41] VITALS: BP 146/101; PULSE 101; RESP 24; TEMP 35.7; O2SAT 99
--- NOTE | 2023-01-25 23:59 | EKG12_ITS ---
Test Reason : SOB Blood Pressure : / mmHG Vent. Rate : 094 BPM Atrial Rate : 108 BPM P-R Int : 000 ms QRS Dur : 084 ms QT Int : 366 ms P-R-T Axes : 000 -04 139 degrees QTc Int : 457 ms Poor data quality, interpretation may be adversely affected Atrial fibrillation ST & T wave abnormality, consider lateral ischemia Abnormal ECG Confirmed by TERE LEMON, JAN ([id number]), department editor BIRDIE TORRES ([id number]) on 01/26/2023 9:22:48 AM Referred By: BB Confirmed By:JAN CARRANZA MD
[2023-01-26] VITALS (29 sets, daily range): BP systolic 139–232; BP diastolic 70–115; PULSE 65–113; RESP 12–37; TEMP 35.5–36.7; O2SAT 91–100; BMI 21.9; BMI 22.4; BMI 21.8
--- NOTE | 2023-01-26 00:07 | RAD_ITS ---
STUDY: X-RAY CHEST REASON FOR EXAM: Female, 72 years old patient with shortness of breath. TECHNIQUE: Single AP portable view of the chest. COMPARISON: December 10, 2022. FINDINGS: The patient has a right-sided tunneled catheter with the tip of the catheter at the cavoatrial junction. Cardiac monitoring leads are present. The lungs are expanded. There are prominent bronchovascular markings in both lungs. There appear to be bilateral pleural effusions. There are some groundglass attenuation in the mid left lung in addition to what may represent subsegmental atelectasis. There is mild cardiac enlargement. Normal mediastinum and farhan. There is prominence of the pulmonary hilar arteries with peripheral pulmonary vascular congestion. There is atherosclerotic tortuosity of the aortic arch and descending thoracic aorta. Normal visualized thoracic spine. Normal visualized ribs, clavicles, and shoulders. There is no demonstrated abnormality of the visualized soft tissue structures of the upper abdomen. RAD/Chest 1 View (Portable) IMPRESSION: 1. Findings suggest congestive heart failure. 2. Apparent left-sided airspace disease and atelectasis suggesting possible pneumonia. Electronically Signed: Mery Kumar MD at 0:48 EDT ,
[2023-01-26] MEDS: Albuterol 2.5 MG/3 ML VIAL.NEB. INHALATION (00:13)
[2023-01-26] MEDS: Ipratropium/Albuterol Sulfate 3 ML AMPUL.NEB INHALATION ×4 (00:13→19:56)
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
[2023-01-26 00:33] LABS: Allen Test Positive; Base Excess -3 mmol/L (-2 to +2); Bicarbonate 22.5 mmol/L (22-26); Blood Gas Specimen Type ART; FI02 30; O2 Delivery Device BiPAP; PEEP 8; PO2 73 mmHG (75-100); SITE R Radial; SO2 94 % (95-99); Total Carbon Dioxide 24 mmol/L; pCO2 38.5 mmHg (35-45); pH 7.37 (7.35-7.45)
--- NOTE | 2023-01-26 00:43 | CPS ---
x1 Albuterol given to pt. in ER as well.
[2023-01-26 00:55] LABS: Absolute Lymphocyte Count 0.57 X10^3/uL (0.83-4.51); Absolute Neutrophil Count 7.6 X10^3/uL (2.0-7.7); Basophil# 0.04 X10^3/uL; Basophil% 0.4 % (0-1); Eosinophil# 0.24 X10^3/uL; Eosinophils% 2.6 % (0-5); Hematocrit 26.3 % (37-47); Hemoglobin 7.9 g/dL (12.0-15.0); Lymphocyte # 0.57 X10^3/ul (0.83-4.51); Lymphocyte % 6.2 % (19-41); Mean Corpuscular Hgb 25.6 pg (27.0-32.0); Mean Corpuscular Volume 85.1 fL (81-99); Mean Platelet Vol. 8.6 fl (6.2-12.0); Monocyte# 0.67 X10^3/uL; Monocyte% 7.3 % (0-10); NRBC Flagged by Analyzer 0 % (0-5); POSITIVE DIFFERENTIAL YES; Platelet Count 191 K/mm3 (150-450); RBC Distribution Width CV 18.6 % (11.6-14.6); RBC Distribution Width SD 58.3 fl (35.1-43.9); Red Blood Count 3.09 M/mm3 (4.2-5.4); White Blood Count 9.2 K/mm3 (4.4-11.0)
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
[2023-01-26 01:16] LABS: Anion Gap 12 (5-15); BUN 52 mg/dL (7-18); BUN/Creat Ratio 6.8 RATIO (10-20); Calcium,Total 9.1 mg/dL (8.5-10.1); Chloride 95 mmol/L (98-107); Creatinine, Serum 7.68 mg/dL (0.55-1.02); EST Glomerular Filtration Rate 6 mL/min (>60); Est Glom Filt Rate - Afr Amer 7 mL/min (>60); Glucose 113 mg/dL (74-106); Sodium Level 131 mmol/L (136-145); Troponin-I HS 55 pg/mL (3.0-54.0)
[2023-01-26] MEDS: MethylPREDNISolone 125 MG/2 ML Vial IV (01:16)
[2023-01-26 02:13] LABS: Phosphorus 6.8 mg/dL (2.5-4.9)
[2023-01-26] MEDS: hydrALAZINE 50 MG Tablet PO ×2 (05:12→20:44)
[2023-01-26] MEDS: Methylprednisolone Sod Succ 40 MG/ML VIAL IV ×3 (05:12→20:47)
[2023-01-26 07:22] LABS: Differential Indicated SCAN CRITERIA MET
--- NOTE | 2023-01-26 07:54 | PCM.PN.HOSP ---
Reason for Visit Reason for Visit: Diagnoses Respiratory failure, unspecified, unspecified whether with hypoxia or hypercapnia (01/26/23) Subjective Subjective Follow-up for acute on chronic combined hypoxic and hypercarbic respiratory failure. Objective Data Objective Data Vital Signs: Vital Signs Temp Pulse Resp BP Pulse Ox O2 Del Method FiO2 97.6 F L 65 20 H 145/78 H 100 Bi-pap 30 01/26/23 07:50 01/26/23 07:50 01/26/23 07:50 01/26/23 07:50 01/26/23 07:50 01/26/23 07:50 01/26/23 07:27 Oxygen Delivery Method Bi-pap Weight: 151 lb 12.8 oz Body Mass Index (BMI) 22.4 Intake & Output: Intake and Output for Last 24 Hours 01/24/23 01/25/23 01/26/23 23:59 23:59 23:59 Intake Total 0 / 0 Output Total 0 / 0 Balance 0 / 0 Lab / Micro Data 01/26/23 09:00 01/26/23 09:00 Labs: Laboratory Results - last 24 hr 01/25/23 00:50: Sodium 131 L, Potassium 5.0, Chloride 95 L, Carbon Dioxide 24.0, Anion Gap 12, BUN 52 H, Creatinine 7.68 H*, Estim Creat Clear Calc 6.90, Est GFR (MDRD) Af Amer 7 L, Est GFR (MDRD) Non-Af 6 L, BUN/Creatinine Ratio 6.8 L, Glucose 113 H, Calcium 9.1, Troponin I High Sens 55 H 01/26/23 00:50: WBC 9.2, RBC 3.09 L, Hgb 7.9 L, Hct 26.3 L, MCV 85.1, MCH 25.6 L, MCHC 30.0 L, RDW Std Deviation 58.3 H, RDW Coeff of Destiny 18.6 H, Plt Count 191, MPV 8.6, Immature Gran % (Auto) 0.500, Neut % (Auto) 83.0 H, Lymph % (Auto) 6.2 L, Miner % (Auto) 7.3, Eos % (Auto) 2.6, Baso % (Auto) 0.4, Absolute Neuts (auto) 7.6, Absolute Lymphs (auto) 0.57 L, Nucleated RBC % 0, Phosphorus 6.8 H, Magnesium 2.0 ABG Data ABG results: ABG 01/26/23 00:30 Specimen Type ART Sample Site R Radial pH 7.37 Bicarbonate Actual 22.5 Total CO2 24 Base Excess -3 L O2 Saturation 94 L O2 % 30 ABG pCO2 38.5 ABG pO2 73 L Evens Test Positive O2 Delivery Device BiPAP POC PEEP 8 Radiography Diagnostic Testing: Radiology Impression Chest X-Ray 01/26/23 00:07 IMPRESSION: 1. Findings suggest congestive heart failure. 2. Apparent left-sided airspace disease and atelectasis suggesting possible pneumonia. Electronically Signed: Mery Kumar MD at 0:48 EDT , Rhythm Strip Rhythm Strip: A-fib Rate: 102 Ectopy: None Physical Exam Narrative Seen and examined. Patient very short of breath on BiPAP. Could not give history. I called patient's son power of litigation attorney associate for health, Mr. Jose lowery and he said that when patient reached home they could not put the BiPAP on and adjusted and she could not breathe therefore brought back to ED. Physical exam General: Alert, Oriented x3, Cooperative HEENT: Atraumatic, PERRLA, EOMI, Normocephalic Oral: On BiPAP. Neck: Supple, No JVD, Negative Carotid Bruits Lungs: Right upper chest dialysis catheter. Air entry severely diminished in bilateral lung bases. No crepitation/rhonchi Cardiovascular: Regular rate, Regular Rhythm, Normal S1, Normal S2, No murmurs Abdomen: Bowel Sounds Present, Soft, Non Tender, Non-Distended : No renal angle tenderness. No suprapubic tenderness. Extremities: No edema, Capillary Refill Less than 3 Seconds Skin: No rashes, No breakdown Musculoskeletal: No Tenderness to Palpation of Joints or Extremities Neurological: Cranial nerves II-XII grossly intact, DTR 2+/4 and Symmetrical, Neuro grossly intact Psych/Mental Status: Flat affect. Assessment & Plan Assessment/Plan (1) Respiratory failure: PLAN: Plan The patient is a 72 y/o F got readmitted after few hours of discharge. Patient was discharged from the hospital at 2200 hrs. and and was very short of breath at home and son brought him back. I discussed with the hospitalist colleague who had the patient. She was admitted for shortness of breath and probable left perihilar pneumonia and her symptoms improved on IV antibiotics and was discharged on doxycycline. At that time patient sent did not want hospice care and wanted to take her home as palliative care. Patient has revoked hospice. urban renewal manager advised hospital bed multiple home equipment but still all failed and patient got readmitted. #1. Acute on Chronic Hypoxic Respiratory Failure, likely Multifactorial, COPD exacerbation, acute on chronic HFpEF and recent left hilar pneumonia: Patient is admitted in PCU. Undergoing dialysis. Patient is started on regimen for COPD exacerbation with scheduled and as needed bronchodilator, IV Solu-Medrol, incentive spirometry and Pep.Most recent ECHO noted 10/30/22 with mild inferior and inferior septal hypokinesis, LVEF 50%, severely enlarged LA, moderately enlarged RA, moderate TVI, PASP 51 mmHg. Continue patient home fluticasone as well as montelukast home regimen. PT/OT/CM consultation for discharge planning. I talked to the patient's son power of litigation attorney associate for health and he will come at 2 PM for interdisciplinary rounds. For now he is not agreeable for hospice consult but okay with palliative care although I told him the same thing will continue as patient is of high clinical need and needs inpatient hospice care. #2. Chronic anemia/AOCD/Fe deficiency anemia: Hemoglobin 8.3 g. Recent discharge Hgb 7.3, #3. Recent history of significant GI bleed on anticoagulant therapy at that time: 10/2022 admission with significant GI bleed with hemoglobin dropping down to 4.2, received 4 unit PRBC per report with EGD notable for angiodysplastic lesions with congestive gastritis and erythematous duodenopathy with injection/heater probe treatment with plan to follow-up outpatient for capsule endoscopy. We will continue home PPI regimen. Recent discharge 01/25/23 Hgb 7.3. #4. ESRD: Patient with chronic dialysis Sunday, Sunday, Sunday, will consult nephrology for ongoing dialysis needs. #5. PAF: We will continue Coreg as BP allows, not on any chronic anticoagulant therapy with history of significant previous GI bleed as noted. #6. Anxiety and depression: We will continue patient home mirtazapine and duloxetine on regimen. #7. Hypertension: Continue home Coreg, hydralazine and oral amlodipine. Continue chronic midodrine with dialysis regimen. #8. Hyperlipidemia: Not on statin therapy, defer to outpatient. #9. Former tobacco use: Encourage continued tobacco cessation. #10. History of diabetes mellitus type II: Not on regimen, last hemoglobin A1c noted 12/01/2020 less than 3.8, at this point will defer ADA diet Accu-Chek with insulin sliding scale but will have as needed Accu-Chek with hypoglycemia protocol if needed #11. Chronic pain syndrome: Patient from previous admission on chronic fentanyl patch, will continue once clarified. #12. DVT prophylaxis: SCDs. #13. CODE status: Patient VIOLETA is her son, she had been recently in hospice program but revoked this recently. Full Code. Charges/Coding Visit Charges Inpatient E&M: 16349 Subs Hosp L2
[2023-01-26] MEDS: 0.9% Normal Saline 1,000 ML IV.SOLN. 1000 ML OPERA.SITE (08:22)
[2023-01-26] MEDS: PureFlow B 2K Dialysis Soln 1 BAG 6 BAG PF (08:22)
[2023-01-26] MEDS: 0.9% Saline Lock 10 ML Syringe IV ×3 (08:24→14:52)
[2023-01-26 08:44] LABS: Differential Comment SCANNED
--- NOTE | 2023-01-26 08:54 | CASEMGMT ---
Addendum entered by Musa Dalal 01/26/23 17:02: Per Quang @ [facility], they will be unable to get a BIPAP in pt's home until Sunday, so therefore pt will not be able to discharge home on Hospice until Sunday after BIPAP has been delivered to pt's home. Quang requests updated med list be sent to [facility] when available. He states he is still in the process of working with out w/[facility] re: other DME. Pt made aware and call placed to pt's son, Jose, and he was notified of same. Dr Langford also notified pt unable to be d/c'd home on Hospice until Sunday. [facility]. PH: [phone] Quang @ [facility] Hospice: [phone]. REGGIE Blanco CM @ [facility]: [phone] Addendum entered by Musa Dalal 01/26/23 15:18: Participated in PCU inter-disciplinary rounds in pt's room w/pt's son, Jose, and Modesta PATEL, @ bedside. Son voices pt's wishes are to be able to be at home. Dr Langford @ bedside and discussed goals of care. Questions answered re: Palliative care, Hospice Care, Hospice IPU, Dialysis, and BIPAP. Son Jose spoke w/pt and they decided they would like to take pt back w/[facility], as long as Hospice can provide BIPAP in the home. Pt would like to also continue w/HD. Call to Quang @ [facility]. He states they are able to accept pt back and he will work on getting BIPAP in the home. He was made aware of DME needed in the home: Hospital bed, W/C, nebulizer, and O2. Call to Sherley @ [facility]. She was made aware pt will now be d/c'ing home on Hospice. She states she will communicate w/Quang @ [facility] re: DME in the home. She was provided shahnaz/Quang's contact info. Call back to Quang. He states he will contact Sherley and will inquire if the DME in the home from [facility] can stay in the home and bill Hospice for this so equipment does not have to be removed by [facility]. He was provided w/Sherley's contact info and [facility] #. Awaiting call back from Quang re: when BIPAP will be available in the home and when pt can be d/c'd home on Hospice. Original Note: REGGIE FAN NOTE: Call to Guera @ [facility]. She was notified that pt has been readmitted to [facility] and will be getting HD @ [facility] today. Call received from pt's son, Jose. Discussed discharge plan. He states still would like pt to return home w/him @ discharge w/resumption of [facility]. Jose made aware REGGIE FAN will reach out to them to inquire about scheduling an appt. Discussed w/Jose about coming in today @ 2 PM for PCU inter-disciplinary rounds and he states he is available and will come in for this. Spoke w/Daphney @ [facility]. Appt scheduled for them to meet w/pt @ her home on . 02/01/23 @ 1 PM. REGGIE FAN will notify pt and son today when he comes in. Tanmay GARCIA RN, CM
[2023-01-26 09:20] LABS: Absolute Lymphocyte Count 0.29 X10^3/uL (0.83-4.51); Absolute Neutrophil Count 5.4 X10^3/uL (2.0-7.7); Basophil# 0.01 X10^3/uL; Basophil% 0.2 % (0-1); Hematocrit 27.6 % (37-47); Hemoglobin 8.3 g/dL (12.0-15.0); Lymphocyte # 0.29 X10^3/ul (0.83-4.51); Mean Corp Hgb Conc 30.1 g/dL (32-36); Mean Corpuscular Hgb 25.5 pg (27.0-32.0); Mean Corpuscular Volume 84.9 fL (81-99); Mean Platelet Vol. 9.1 fl (6.2-12.0); Monocyte# 0.04 X10^3/uL; Monocyte% 0.7 % (0-10); NRBC Flagged by Analyzer 0 % (0-5); Neutrophil # 5.39 X10^3/uL (2.7-7.7); Neutrophil % 93.6 % (47-70); POSITIVE DIFFERENTIAL YES; Platelet Count 208 K/mm3 (150-450); RBC Distribution Width CV 18.6 % (11.6-14.6); RBC Distribution Width SD 58.1 fl (35.1-43.9); Red Blood Count 3.25 M/mm3 (4.2-5.4); White Blood Count 5.8 K/mm3 (4.4-11.0)
[2023-01-26 09:27] LABS: Differential Indicated SCAN CRITERIA MET
[2023-01-26 09:36] LABS: ALB/GLOB Ratio 0.4 RATIO (0.9-2.4); AST(SGOT) 17 U/L (15-37); Alanine Aminotransfer ALT/SGPT 11 U/L (13-56); Albumin, Serum 2.3 g/dL (3.2-5.0); Alkaline Phosphatase 85 U/L (45-117); Anion Gap 10 (5-15); BUN 42 mg/dL (7-18); Calcium,Total 9.5 mg/dL (8.5-10.1); Chloride 99 mmol/L (98-107); Creatinine, Serum 5.96 mg/dL (0.55-1.02); EST Glomerular Filtration Rate 7 mL/min (>60); Est Glom Filt Rate - Afr Amer 9 mL/min (>60); Estimated Creatinine Clearance 9.18 ml/min; Globulin 5.3 g/dL (2.2-4.2); Glucose 115 mg/dL (74-106); Potassium 4.6 mmol/L (3.5-5.1); Protein, Total 7.6 g/dL (6.4-8.2); Sodium Level 133 mmol/L (136-145)
[2023-01-26] MEDS: oxyCODONE 5 MG Tablet PO ×3 (09:52→20:44)
[2023-01-26 09:54] LABS: Differential Comment SCANNED
[2023-01-26] MEDS: fentaNYL 25 MCG Patch TD (10:56)
[2023-01-26] MEDS: Ferrous Sulfate 325 MG Tablet PO (10:58)
[2023-01-26] MEDS: amLODIPine 5 MG Tablet PO (10:58)
[2023-01-26] MEDS: Doxycycline 100 MG CAPSULE PO ×2 (10:58→20:47)
[2023-01-26] MEDS: DULoxetine Hcl 60 MG Capsule PO (10:58)
[2023-01-26] MEDS: Vitamin B Comp W-C Capsule 1 CAP PO (10:59)
[2023-01-26] MEDS: Pantoprazole Sodium 40 MG Tablet PO ×2 (10:59→20:45)
[2023-01-26] MEDS: Carvedilol 12.5 MG Tablet PO ×2 (10:59→20:45)
--- NOTE | 2023-01-26 11:08 | PN.HOSP_ITS ---
Reason for Visit Reason for Visit: Diagnoses Respiratory failure, unspecified, unspecified whether with hypoxia or hypercapn ia (01/26/23) Objective Data Objective Data Vital Signs: Vital Signs Temp Pulse Resp BP Pulse Ox O2 Del Method FiO2 97.4 F L 102 H 15 160/99 H 98 Bi-pap 30 01/26/23 10:32 01/26/23 10:32 01/26/23 10:32 01/26/23 10:32 01/26/23 10:32 01/26/23 10:32 01/26/23 07:27 Oxygen Delivery Method Bi-pap Weight: 147 lb 7.828 oz Body Mass Index (BMI) 21.8 Intake & Output: Intake and Output for Last 24 Hours 01/24/23 01/25/23 01/26/23 23:59 23:59 23:59 Intake Total 0 / 0 Output Total 1600 / 1600 Balance -1600 / -1600 Lab / Micro Data 01/26/23 09:00 01/26/23 09:00 Labs: Laboratory Results - last 24 hr 01/25/23 00:50: Sodium 131 L, Potassium 5.0, Chloride 95 L, Carbon Dioxide 24.0, Anion Gap 12, BUN 52 H, Creatinine 7.68 H*, Estim Creat Clear Calc 6.90, Est GFR (MDRD) Af Amer 7 L, Est GFR (MDRD) Non-Af 6 L, BUN/Creatinine Ratio 6.8 L, Glucose 113 H, Calcium 9.1, Troponin I High Sens 55 H 01/26/23 00:50: WBC 9.2, RBC 3.09 L, Hgb 7.9 L, Hct 26.3 L, MCV 85.1, MCH 25.6 L , MCHC 30.0 L, RDW Std Deviation 58.3 H, RDW Coeff of Destiny 18.6 H, Plt Count 191, MPV 8.6, Immature Gran % (Auto) 0.500, Neut % (Auto) 83.0 H, Lymph % (Auto) 6.2 L, [place] % (Auto) 7.3, Eos % (Auto) 2.6, Baso % (Auto) 0.4, Absolute Neuts (auto) 7.6, Absolute Lymphs (auto) 0.57 L, Nucleated RBC % 0, Differential Comment SCANNED, Phosphorus 6.8 H, Magnesium 2.0 01/26/23 09:00: WBC 5.8, RBC 3.25 L, Hgb 8.3 L, Hct 27.6 L, MCV 84.9, MCH 25.5 L , MCHC 30.1 L, RDW Std Deviation 58.1 H, RDW Coeff of Destiny 18.6 H, Plt Count 208, MPV 9.1, Immature Gran % (Auto) 0.500, Neut % (Auto) 93.6 H, Lymph % (Auto) 5.0 L, [place] % (Auto) 0.7, Eos % (Auto) 0.0, Baso % (Auto) 0.2, Absolute Neuts (auto) 5.4, Absolute Lymphs (auto) 0.29 L, Nucleated RBC % 0, Differential Comment SCANNED, Sodium 133 L, Potassium 4.6, Chloride 99, Carbon Dioxide 24.0, Anion Gap 10, BUN 42 H, Creatinine 5.96 H, Estim Creat Clear Calc 9.18, Est GFR (MDRD) Af Amer 9 L, Est GFR (MDRD) Non-Af 7 L, BUN/Creatinine Ratio 7.0 L, Glucose 115 H, Calcium 9.5, Total Bilirubin 0.70, AST 17, ALT 11 L, Alkaline Phosphatase 85, Total Protein 7.6, Albumin 2.3 L, Globulin 5.3 H, Albumin/Globulin Ratio 0.4 L ABG Data ABG results: ABG 01/26/23 00:30 Specimen Type ART Sample Site R Radial pH 7.37 Bicarbonate Actual 22.5 Total CO2 24 Base Excess -3 L O2 Saturation 94 L O2 % 30 ABG pCO2 38.5 ABG pO2 73 L Evens Test Positive O2 Delivery Device BiPAP POC PEEP 8 Radiography Diagnostic Testing: Radiology Impression Chest X-Ray 01/26/23 00:07 IMPRESSION: 1. Findings suggest congestive heart failure. 2. Apparent left-sided airspace disease and atelectasis suggesting possible pneumonia. Electronically Signed: Mery Kumar MD at 0:48 EDT , Rhythm Strip Rhythm Strip: A-fib Rate: 102 Ectopy: None Assessment & Plan Assessment/Plan (1) Respiratory failure: PLAN: Plan The patient is a 72 y/o F w/ PMHx: Former tobacco use, Chronic pain syndrome on chronic low-dose fentanyl patch, Diastolic CHF, Anxiety and Depression, H ypertension, Hyperlipidemia, ESRD on HD M, W, F scheduled with still twice daily urine output, Chronic anemia/AOCD/Fe deficiency anemia, (ANGELI/Fe supplementation), PAF previously on eliquis held secondary to severe GI Bleed w/ hemorrhage of 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 and stomach with Hgb drop to 5.4 receiving 4 u PRBC and emergency EGD w/ injected lesions/heater probe w/ concurrent congestive gastritis and erythematous duodenopathy and 3 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 with planned outpatient capsule endoscopy (11/17/2022), COPD/asthma with Chronic Hypoxic Respiratory Failure (3L NC baseline), recent discharge 01/25/27 following treatment and evaluation of probable Pneumonia, Mild Diastolic CHF Exacerbation discharged on doxycycline who now represents to the [facility] ED on 01/25/23 with history of onset significant dyspnea prompting EMS call who upon presentation noted patient to be tripoding, struggling to breathe, 95% on 5 L but in respiratory distress prompting them to place patient immediately on BiPAP with improvement and transition to the ED for evaluation. #1. Acute on Chronic Hypoxic Respiratory Failure, likely Multifactorial, recent Left Sided Perihilar Pneumonia Unclear organism and concurrent recent Mild Acute Diastolic CHF Exacerbation in addition to Acute on Chronic COPD/Asthma Exacerbation with allergic rhinitis: Will admit to PCU, maintain on oxygen with wean as tolerated to home oxygen supplementation, continue ATC duoneb therapies, PRN albuterol, recent negative Bld Cx x 2, urine antigens negative, full respiratory panel negative as well as negative MRSA screen of note, will maintain on doxycycline, will initiate and continue IV solumedrol, continue HD regimen, will monitor I/Os, Most recent ECHO noted 10/30/22 with mild inferior and inferior septal hypokinesis, LVEF 50%, severely enlarged LA, moderately enlarged RA, moderate TVI, PASP 51 mmHg, unable to assess diastolic dysfunction on this echocardiogram. We will continue patient home fluticasone as well as montelukast home regimen. PT/OT/CM consultation for discharge planning. #2. Chronic anemia/AOCD/Fe deficiency anemia: Admission Hgb pending, recent discharge Hgb 7.3, recent baseline has been 8, will continue to trend CBC. #3. Recent history of significant GI bleed on anticoagulant therapy at that time: 10/2022 admission with significant GI bleed with hemoglobin dropping down t o 4.2, received 4 unit PRBC per report with EGD notable for angiodysplastic lesions with congestive gastritis and erythematous duodenopathy with injection/heater probe treatment with plan to follow-up outpatient for capsule endoscopy. We will continue home PPI regimen. Recent discharge 01/25/23 Hgb 7.3. #4. ESRD: Patient with chronic dialysis Sunday, Sunday, Sunday, will consult nephrology for ongoing dialysis needs. #5. PAF: We will continue Coreg as BP allows, not on any chronic anticoagulant therapy with history of significant previous GI bleed as noted. #6. Anxiety and depression: We will continue patient home mirtazapine and duloxetine on regimen. #7. Hypertension: Continue home Coreg, hydralazine and oral amlodipine. Continue chronic midodrine with dialysis regimen. #8. Hyperlipidemia: Not on statin therapy, defer to outpatient. #9. Former tobacco use: Encourage continued tobacco cessation. #10. History of diabetes mellitus type II: Not on regimen, last hemoglobin A1c noted 12/01/2020 less than 3.8, at this point will defer ADA diet Accu-Chek with insulin sliding scale but will have as needed Accu-Chek with hypoglycemia protocol if needed #11. Chronic pain syndrome: Patient from previous admission on chronic fentanyl patch, will continue once clarified. #12. DVT prophylaxis: SCDs. #13. CODE status: Patient VIOLETA is her son, she had been recently in hospice program but revoked this recently. Full Code.
[2023-01-26] MEDS: LORazepam 0.5 MG Tablet PO (11:37)
--- NOTE | 2023-01-26 15:19 | PCM.PN.REN ---
Subjective Subjective no new events Objective Data Objective Data Vital Signs: Vital Signs Temp Pulse Resp BP Pulse Ox O2 Del Method O2 Flow Rate 98.0 F 89 20 H 140/92 H 100 Bi-pap 4 01/26/23 14:49 01/26/23 14:49 01/26/23 14:49 01/26/23 14:49 01/26/23 14:49 01/26/23 14:49 01/26/23 11:13 FiO2 30 01/26/23 14:49 Oxygen Flow Rate (L/min) 4 Oxygen Delivery Method Bi-pap Weight: 68 kg Body Mass Index (BMI) 21.8 Intake & Output: Intake and Output for Last 24 Hours 01/24/23 01/25/23 01/26/23 23:59 23:59 23:59 Intake Total 220 / 220 Output Total 1600 / 1600 Balance -1380 / -1380 Lab / Micro Data 01/26/23 09:00 01/26/23 09:00 Labs: Laboratory Results - last 24 hr 01/25/23 00:50: Sodium 131 L, Potassium 5.0, Chloride 95 L, Carbon Dioxide 24.0, Anion Gap 12, BUN 52 H, Creatinine 7.68 H*, Estim Creat Clear Calc 6.90, Est GFR (MDRD) Af Amer 7 L, Est GFR (MDRD) Non-Af 6 L, BUN/Creatinine Ratio 6.8 L, Glucose 113 H, Calcium 9.1, Troponin I High Sens 55 H 01/26/23 00:50: WBC 9.2, RBC 3.09 L, Hgb 7.9 L, Hct 26.3 L, MCV 85.1, MCH 25.6 L, MCHC 30.0 L, RDW Std Deviation 58.3 H, RDW Coeff of Destiny 18.6 H, Plt Count 191, MPV 8.6, Immature Gran % (Auto) 0.500, Neut % (Auto) 83.0 H, Lymph % (Auto) 6.2 L, [place] % (Auto) 7.3, Eos % (Auto) 2.6, Baso % (Auto) 0.4, Absolute Neuts (auto) 7.6, Absolute Lymphs (auto) 0.57 L, Nucleated RBC % 0, Differential Comment SCANNED, Phosphorus 6.8 H, Magnesium 2.0 01/26/23 09:00: WBC 5.8, RBC 3.25 L, Hgb 8.3 L, Hct 27.6 L, MCV 84.9, MCH 25.5 L, MCHC 30.1 L, RDW Std Deviation 58.1 H, RDW Coeff of Destiny 18.6 H, Plt Count 208, MPV 9.1, Immature Gran % (Auto) 0.500, Neut % (Auto) 93.6 H, Lymph % (Auto) 5.0 L, [place] % (Auto) 0.7, Eos % (Auto) 0.0, Baso % (Auto) 0.2, Absolute Neuts (auto) 5.4, Absolute Lymphs (auto) 0.29 L, Nucleated RBC % 0, Differential Comment SCANNED, Sodium 133 L, Potassium 4.6, Chloride 99, Carbon Dioxide 24.0, Anion Gap 10, BUN 42 H, Creatinine 5.96 H, Estim Creat Clear Calc 9.18, Est GFR (MDRD) Af Amer 9 L, Est GFR (MDRD) Non-Af 7 L, BUN/Creatinine Ratio 7.0 L, Glucose 115 H, Calcium 9.5, Total Bilirubin 0.70, AST 17, ALT 11 L, Alkaline Phosphatase 85, Total Protein 7.6, Albumin 2.3 L, Globulin 5.3 H, Albumin/Globulin Ratio 0.4 L ABG Data ABG results: ABG 01/26/23 00:30 Specimen Type ART Sample Site R Radial pH 7.37 Bicarbonate Actual 22.5 Total CO2 24 Base Excess -3 L O2 Saturation 94 L O2 % 30 ABG pCO2 38.5 ABG pO2 73 L Evens Test Positive O2 Delivery Device BiPAP POC PEEP 8 Radiography Diagnostic Testing: Radiology Impression Chest X-Ray 01/26/23 00:07 IMPRESSION: 1. Findings suggest congestive heart failure. 2. Apparent left-sided airspace disease and atelectasis suggesting possible pneumonia. Electronically Signed: Mery Kumar MD at 0:48 EDT , Rhythm Strip Rhythm Strip: A-fib Rate: 102 Ectopy: None Physical Exam Narrative Alert awake oriented x 3 no obvious distress no pallor no icterus no JVD s1s2 no murmurs lungs clear abdomen soft no organomegaly no edema no cyanosis Assessment & Plan Assessment/Plan (1) ESRD (end stage renal disease) on dialysis: PLAN: HD today. see orders/flowsheets. does not feel significantly different with HD. no edema. currently on Bipap. dw hospitalist
--- NOTE | 2023-01-26 15:24 | CASEMGMT ---
MARIA GUADALUPE participated in interdisciplinary rounds. Options were discussed. Patient needs a bipap at home, but has not had a sleep study. MARIA GUADALUPE and REGGIE FAN spoke with patient, her son, and daughter in law alone in room and they would like to have patient go home with [facility] as long as they can provide a bipap at home. [facility] allows patient to continue dialysis. REGGIE Vigil was going to contact [facility] to find out. Plan: Home with [facility] once equipment has been organized. Evy Paredes [employer]THLETE MARKETING [employer]ENT [employer]
[2023-01-26] MEDS: hydrOXYzine PAM 25 MG Capsule PO (20:44)
[2023-01-26] MEDS: Mirtazapine 30 MG Tablet PO (20:45)
[2023-01-26] MEDS: Montelukast 10 MG Tablet PO (20:45)
[2023-01-26] MEDS: MELATONIN 3 MG TABLET PO (20:45)
[2023-01-26] MEDS: Acetaminophen 325 MG Tablet 650 MG PO (20:45)
[2023-01-27] VITALS (16 sets, daily range): BP systolic 117–147; BP diastolic 78–92; PULSE 71–122; RESP 12–24; TEMP 36.4–36.8; O2SAT 94–100; BMI 22.0
[2023-01-27] MEDS: hydrALAZINE 50 MG Tablet PO ×2 (06:16→21:20)
[2023-01-27] MEDS: oxyCODONE 5 MG Tablet PO ×4 (06:16→21:20)
[2023-01-27] MEDS: Ipratropium/Albuterol Sulfate 3 ML AMPUL.NEB INHALATION ×4 (07:00→21:11)
[2023-01-27] MEDS: Doxycycline 100 MG CAPSULE PO ×2 (09:19→21:19)
[2023-01-27] MEDS: Pantoprazole Sodium 40 MG Tablet PO ×2 (09:19→21:20)
[2023-01-27] MEDS: Vitamin B Comp W-C Capsule 1 CAP PO (09:19)
[2023-01-27] MEDS: amLODIPine 5 MG Tablet PO (09:19)
[2023-01-27] MEDS: Carvedilol 12.5 MG Tablet PO ×2 (09:19→21:19)
[2023-01-27] MEDS: DULoxetine Hcl 60 MG Capsule PO (09:20)
[2023-01-27] MEDS: Acetaminophen 325 MG Tablet 650 MG PO (09:20)
[2023-01-27] MEDS: LORazepam 0.5 MG Tablet PO ×2 (09:21→21:20)
--- NOTE | 2023-01-27 11:34 | CPS ---
Pt declines I.S. & PEP.
[2023-01-27] MEDS: Methylprednisolone Sod Succ 40 MG/ML VIAL IV ×2 (14:50→21:21)
[2023-01-27] MEDS: 0.9% Saline Lock 10 ML Syringe IV ×2 (14:51→21:21)
--- NOTE | 2023-01-27 15:24 | PCM.PN.HOSP ---
Reason for Visit Reason for Visit: Diagnoses Respiratory failure, unspecified, unspecified whether with hypoxia or hypercapnia (01/26/23) End stage renal disease (01/26/23) Dependence on renal dialysis (01/26/23) Subjective Subjective Follow-up for acute on chronic combined respiratory failure. Objective Data Objective Data Vital Signs: Vital Signs Temp Pulse Resp BP Pulse Ox O2 Del Method O2 Flow Rate 97.6 F L 88 23 H 125/83 H 94 Nasal Cannula 4 01/27/23 09:12 01/27/23 14:35 01/27/23 14:35 01/27/23 09:12 01/27/23 14:35 01/27/23 14:35 01/27/23 14:35 FiO2 30 01/27/23 03:55 Oxygen Flow Rate (L/min) 4 Oxygen Delivery Method Nasal Cannula Weight: 148 lb 14.4 oz Body Mass Index (BMI) 22.0 Intake & Output: Intake and Output for Last 24 Hours 01/25/23 01/26/23 01/27/23 23:59 23:59 23:59 Intake Total 220 / 420 500 / 500 Output Total 1600 / 1600 Balance -1380 / -1180 500 / 500 Lab / Micro Data 01/26/23 09:00 01/26/23 09:00 Rhythm Strip Rhythm Strip: A-fib Rate: 102 Ectopy: None Physical Exam Narrative Seen and examined. Patient in the morning of BiPAP on nasal cannula. Patient easily gets short of breath off BiPAP. Yesterday on interdisciplinary rounds, patient's son power of coke worker for health Mr. Jose ward want BiPAP at home and wants to take home with home hospice care on BiPAP. Physical exam General: Alert, Oriented x3, Cooperative HEENT: Atraumatic, PERRLA, EOMI, Normocephalic Oral: On nasal cannula. Neck: Supple, No JVD, Negative Carotid Bruits Lungs: Right upper chest dialysis catheter. Air entry severely diminished in bilateral lung bases. No crepitation/rhonchi Cardiovascular: Regular rate, Regular Rhythm, Normal S1, Normal S2, No murmurs Abdomen: Bowel Sounds Present, Soft, Non Tender, Non-Distended : No renal angle tenderness. No suprapubic tenderness. Extremities: No edema, Capillary Refill Less than 3 Seconds Skin: No rashes, No breakdown Musculoskeletal: No Tenderness to Palpation of Joints or Extremities. Muscle extremity 4+/5 at major joints of lower extremities Neurological: Cranial nerves II-XII grossly intact, DTR 2+/4 and Symmetrical, Neuro grossly intact Psych/Mental Status: Flat affect. Assessment & Plan Assessment/Plan (1) Respiratory failure: QUALIFIERS: Chronicity: acute on chronic Respiratory failure complication: hypoxia and hypercapnia Qualified Code(s): J96.21 - Acute and chronic respiratory failure with hypoxia; J96.22 - Acute and chronic respiratory failure with hypercapnia PLAN: Plan The patient is a 72 y/o F got readmitted after few hours of discharge. Patient was discharged from the hospital at 2200 hrs. and and was very short of breath at home and son brought him back. I discussed with the hospitalist colleague who had the patient. She was admitted for shortness of breath and probable left perihilar pneumonia and her symptoms improved on IV antibiotics and was discharged on doxycycline. At that time patient sent did not want hospice care and wanted to take her home as palliative care. Patient has revoked hospice. hairmasters manager advised hospital bed multiple home equipment but still all failed and patient got readmitted. #1. Acute on Chronic Hypoxic Respiratory Failure, likely Multifactorial, COPD exacerbation, acute on chronic HFpEF and recent left hilar pneumonia: Patient is admitted in PCU. Undergoing dialysis. Patient is started on regimen for COPD exacerbation with scheduled and as needed bronchodilator, IV Solu-Medrol, incentive spirometry and Pep.Most recent ECHO noted 10/30/22 with mild inferior and inferior septal hypokinesis, LVEF 50%, severely enlarged LA, moderately enlarged RA, moderate TVI, PASP 51 mmHg. Continue patient home fluticasone as well as montelukast home regimen. PT/OT/CM consultation for discharge planning. I talked to the patient's son power of coke worker for health and he will come at 2 PM for interdisciplinary rounds. For now he is not agreeable for hospice consult but okay with palliative care although I told him the same thing will continue as patient is of high clinical need and needs inpatient hospice care. 01/27: Patient intermittently on nasal cannula but mostly on BiPAP. Yesterday's discussion interdisciplinary rounds, patient's son agreed for discharge to home with BiPAP at home hospice status. Status changed to DNR CC arrest with no intubation. #2. Chronic anemia/AOCD/Fe deficiency anemia: Hemoglobin 8.3 g. Recent discharge Hgb 7.3 01/27: Last hemoglobin is 8.3. Platelet count 208,000. Follow-up labs tomorrow. #3. Recent history of significant GI bleed on anticoagulant therapy at that time: 10/2022 admission with significant GI bleed with hemoglobin dropping down to 4.2, received 4 unit PRBC per report with EGD notable for angiodysplastic lesions with congestive gastritis and erythematous duodenopathy with injection/heater probe treatment with plan to follow-up outpatient for capsule endoscopy. We will continue home PPI regimen. Recent discharge 01/25/23 Hgb 7.3. #4. ESRD: Patient with chronic dialysis Sunday, Sunday, Sunday, leather heel breaster consulted. Patient was consulted by leather heel breaster. #5. PAF: We will continue Coreg as BP allows, not on any chronic anticoagulant therapy with history of significant previous GI bleed as noted. #6. Anxiety and depression: continue patient home mirtazapine and duloxetine on regimen. #7. Hypertension: Continue home Coreg, hydralazine and oral amlodipine. Continue chronic midodrine with dialysis regimen. #8. Hyperlipidemia: Not on statin therapy, defer to outpatient. #9. Former tobacco use: Encourage continued tobacco cessation. #10. History of diabetes mellitus type II: Not on regimen, last hemoglobin A1c noted 12/01/2020 less than 3.8, at this point will defer ADA diet Accu-Chek with insulin sliding scale but will have as needed Accu-Chek with hypoglycemia protocol if needed #11. Chronic pain syndrome: Patient from previous admission on chronic fentanyl patch, will continue once clarified. #12. DVT prophylaxis: SCDs. #13. CODE status: Patient VIOLETA is her son, she had been recently in hospice program but revoked this recently. Full Code. Charges/Coding Visit Charges Inpatient E&M: 68552 Subs Hosp L2
[2023-01-27] MEDS: Mirtazapine 30 MG Tablet PO (21:19)
[2023-01-27] MEDS: Montelukast 10 MG Tablet PO (21:19)
[2023-01-28] VITALS (15 sets, daily range): BP systolic 127–164; BP diastolic 74–87; PULSE 64–103; RESP 12–22; TEMP 36.3–36.7; O2SAT 92–100; BMI 22.0
[2023-01-28] MEDS: MELATONIN 3 MG TABLET PO (01:13)
[2023-01-28] MEDS: oxyCODONE 5 MG Tablet PO ×2 (01:13→14:29)
[2023-01-28] MEDS: LORazepam 0.5 MG Tablet PO ×2 (01:13→17:32)
[2023-01-28] MEDS: hydrALAZINE 50 MG Tablet PO ×3 (05:40→21:41)
[2023-01-28] MEDS: Methylprednisolone Sod Succ 40 MG/ML VIAL IV ×3 (05:40→20:44)
[2023-01-28] MEDS: Ipratropium/Albuterol Sulfate 3 ML AMPUL.NEB INHALATION ×4 (07:06→19:47)
[2023-01-28] MEDS: Carvedilol 12.5 MG Tablet PO ×2 (08:57→21:41)
[2023-01-28] MEDS: Pantoprazole Sodium 40 MG Tablet PO ×2 (08:57→20:48)
[2023-01-28] MEDS: Doxycycline 100 MG CAPSULE PO ×2 (08:57→20:47)
[2023-01-28] MEDS: Vitamin B Comp W-C Capsule 1 CAP PO (08:57)
[2023-01-28] MEDS: DULoxetine Hcl 60 MG Capsule PO (08:57)
[2023-01-28] MEDS: Polyethylene Glycol 3350 17 GM PACKET PO (08:58)
[2023-01-28] MEDS: amLODIPine 5 MG Tablet PO (08:58)
[2023-01-28] MEDS: Ferrous Sulfate 325 MG Tablet PO (09:02)
--- NOTE | 2023-01-28 12:31 | PN.HOSP_ITS ---
Reason for Visit Reason for Visit: Diagnoses Acute and chronic respiratory failure with hypoxia (01/26/23) Acute and chronic respiratory failure with hypercapnia (01/26/23) Respiratory failure, unspecified, unspecified whether with hypoxia or hypercapnia (01/26/23) End stage renal disease (01/26/23) Dependence on renal dialysis (01/26/23) Objective Data Objective Data Vital Signs: Vital Signs Temp Pulse Resp BP Pulse Ox O2 Del Method O2 Flow Rate 97.4 F L 68 18 164/81 H 100 Nasal Cannula 4 01/28/23 09:00 01/28/23 10:00 01/28/23 09:00 01/28/23 09:00 01/28/23 10:00 01/28/23 10:00 01/28/23 10:00 FiO2 30 01/28/23 07:35 Oxygen Flow Rate (L/min) 4 Oxygen Delivery Method Nasal Cannula Weight: 148 lb 12.992 oz Body Mass Index (BMI) 22.0 Intake & Output: Intake and Output for Last 24 Hours 01/26/23 01/27/23 01/28/23 23:59 23:59 23:59 Intake Total 220 / 420 1100 / 1100 550 / 550 Output Total 1600 / 1600 Balance -1380 / -1180 1100 / 1100 550 / 550 Lab / Micro Data 01/26/23 09:00 01/26/23 09:00 Rhythm Strip Rhythm Strip: A-fib Rate: 102 Ectopy: None Physical Exam Narrative Seen and examined. Patient on nasal cannula 4 L. Had BiPAP last night. On Sunday, interdisciplinary rounds, patient's son power of collections attorney for health Mr. Jose ward want BiPAP at home and wants to take home with home hospice care on BiPAP. Patient does not want to go to shelter and get upset with the name of nurs ing home. Physical exam General: Alert, Oriented x3, Cooperative HEENT: Atraumatic, PERRLA, EOMI, Normocephalic Oral: On nasal cannula. Neck: Supple, No JVD, Negative Carotid Bruits Lungs: Right upper chest dialysis catheter. Air entry severely diminished in bilateral lung bases. No crepitation/rhonchi Cardiovascular: Regular rate, Regular Rhythm, Normal S1, Normal S2, No murmurs Abdomen: Bowel Sounds Present, Soft, Non Tender, Non-Distended : No renal angle tenderness. No suprapubic tenderness. Extremities: No edema, Capillary Refill Less than 3 Seconds Skin: No rashes, No breakdown Musculoskeletal: No Tenderness to Palpation of Joints or Extremities. Muscle extremity 4+/5 at major joints of lower extremities Neurological: Cranial nerves II-XII grossly intact, DTR 2+/4 and Symmetrical, Neuro grossly intact Psych/Mental Status: Flat affect. Assessment & Plan Assessment/Plan (1) Respiratory failure: QUALIFIERS: Chronicity: acute on chronic Respiratory failure complication: hypoxia and hypercapnia Qualified Code(s): J96.21 - Acute and chronic respiratory failure with hypoxia; J96.22 - Acute and chronic respiratory failure with hypercapnia PLAN: Plan The patient is a 72 y/o F got readmitted after few hours of discharge. Patient was discharged from the hospital at 2200 hrs. and and was very short of breath at home and son brought him back. I discussed with the hospitalist colleague who had the patient. She was admitted for shortness of breath and probable left perihilar pneumonia and her symptoms improved on IV antibiotics and was discharged on doxycycline. At that time patient sent did not want hospice care and wanted to take her home as palliative care. Patient has revoked hospice. poker manager advised hospital bed multiple home equipment but still all failed and patient got readmitted. #1. Acute on Chronic Hypoxic Respiratory Failure, likely Multifactorial, COPD exacerbation, acute on chronic HFpEF and recent left hilar pneumonia: Patient is admitted in PCU. Undergoing dialysis. Patient is started on regimen for COPD exacerbation with scheduled and as needed bronchodilator, IV Solu-Medrol, incentive spirometry and Pep.Most recent ECHO noted 10/30/22 with mild inferior and inferior septal hypokinesis, LVEF 50%, severely enlarged LA, moderately enlarged RA, moderate TVI, PASP 51 mmHg. Continue patient home fluticasone as well as montelukast home regimen. PT/OT/CM consultation for discharge planning. I talked to the patient's son power of collections attorney for health and he will come at 2 PM for interdisciplinary rounds. For now he is not agreeable for hospice consult but okay with palliative care although I told him the same thing will continue as patient is of high clinical need and needs inpatient hospice care. 01/27: Patient intermittently on nasal cannula but mostly on BiPAP. Yesterday's discussion interdisciplinary rounds, patient's son agreed for discharge to home with BiPAP at home hospice status. Status changed to DNR CC arrest with no intubation. 01/28: Overall the plan is to discharge home with hospice care on BiPAP on Sunday. Patient did not want to go to shelter and gets easily upset with even name of shelter. Already discussed with case finisher and charge nurse. Patient is currently doing well on oxygen and BiPAP at night #2. Chronic anemia/AOCD/Fe deficiency anemia: Hemoglobin 8.3 g. Recent discharge Hgb 7.3 01/27: Last hemoglobin is 8.3. Platelet count 208,000. Follow-up labs tomorrow. 01/28 no acute bleeding. Hemoglobin on her baseline. #3. Recent history of significant GI bleed on anticoagulant therapy at that time: 10/2022 admission with significant GI bleed with hemoglobin dropping down to 4.2, received 4 unit PRBC per report with EGD notable for angiodysplastic lesions with congestive gastritis and erythematous duodenopathy with injection/heater probe treatment with plan to follow-up outpatient for capsule endoscopy. We will continue home PPI regimen. Recent discharge 01/25/23 Hgb 7.3. #4. ESRD: Patient with chronic dialysis Sunday, Sunday, Sunday, implant coordinator consulted. Patient was consulted by implant coordinator. #5. PAF: We will continue Coreg as BP allows, not on any chronic anticoagulant therapy with history of significant previous GI bleed as noted. #6. Anxiety and depression: continue patient home mirtazapine and duloxetine on regimen. #7. Hypertension: Continue home Coreg, hydralazine and oral amlodipine. Continue chronic midodrine with dialysis regimen. #8. Hyperlipidemia: Not on statin therapy, defer to outpatient. #9. Former tobacco use: Encourage continued tobacco cessation. #10. History of diabetes mellitus type II: Not on regimen, last hemoglobin A1c noted 12/01/2020 less than 3.8, at this point will defer ADA diet Accu-Chek with insulin sliding scale but will have as needed Accu-Chek with hypoglycemia protocol if needed #11. Chronic pain syndrome: Patient from previous admission on chronic fentanyl patch, will continue once clarified. #12. DVT prophylaxis: SCDs. #13. CODE status: Patient VIOLETA is her son, she had been recently in hospice program but revoked this recently. Full Code. Charges/Coding Visit Charges Inpatient E&M: 26610 Subs Hosp L2
[2023-01-28] MEDS: 0.9% Saline Lock 10 ML Syringe IV (14:34)
[2023-01-28] MEDS: Mirtazapine 30 MG Tablet PO (20:48)
[2023-01-28] MEDS: Montelukast 10 MG Tablet PO (20:48)
[2023-01-29] VITALS (21 sets, daily range): BP systolic 132–219; BP diastolic 74–99; PULSE 57–113; RESP 12–24; TEMP 35.8–36.7; O2SAT 95–100; BMI 22.0; BMI 21.4
[2023-01-29] MEDS: oxyCODONE 5 MG Tablet PO ×5 (01:04→23:01)
[2023-01-29] MEDS: Ipratropium/Albuterol Sulfate 3 ML AMPUL.NEB INHALATION ×4 (06:45→19:52)
[2023-01-29] MEDS: 0.9% Saline Lock 10 ML Syringe IV ×3 (06:56→09:31)
[2023-01-29] MEDS: Methylprednisolone Sod Succ 40 MG/ML VIAL IV ×3 (06:57→21:09)
[2023-01-29] MEDS: PureFlow B 2K Dialysis Soln 1 BAG 6 BAG PF (07:27)
[2023-01-29] MEDS: 0.9% Normal Saline 1,000 ML IV.SOLN. 1000 ML OPERA.SITE (07:27)
--- NOTE | 2023-01-29 09:22 | PN.HOSP_ITS ---
Reason for Visit Reason for Visit: Diagnoses Acute and chronic respiratory failure with hypoxia (01/26/23) Acute and chronic respiratory failure with hypercapnia (01/26/23) Respiratory failure, unspecified, unspecified whether with hypoxia or hypercapnia (01/26/23) End stage renal disease (01/26/23) Dependence on renal dialysis (01/26/23) Subjective Subjective Anxious to go with hospice. Objective Data Objective Data Vital Signs: Vital Signs Temp Pulse Resp BP Pulse Ox O2 Del Method O2 Flow Rate 36.1 C L 85 12 167/98 H 100 Nasal Cannula 4 01/29/23 07:00 01/29/23 08:56 01/29/23 08:56 01/29/23 08:56 01/29/23 08:56 01/29/23 08:56 01/29/23 08:56 FiO2 30 01/29/23 05:30 Oxygen Flow Rate (L/min) 4 Oxygen Delivery Method Nasal Cannula Weight: 67.6 kg Body Mass Index (BMI) 22.0 Intake & Output: Intake and Output for Last 24 Hours 01/27/23 01/28/23 01/29/23 23:59 23:59 23:59 Intake Total 1100 / 1100 950 / 950 Output Total 0 / 0 Balance 1100 / 1100 950 / 950 Lab / Micro Data 01/26/23 09:00 01/26/23 09:00 Rhythm Strip Rhythm Strip: A-fib Rate: 102 Ectopy: None Physical Exam Const alert and no apparent distress HEENT head/scalp atraumatic and moist oral mucous membranes Resp normal respiratory effort, no retractions, no use of accessory muscles and clear to auscultation bilaterally Cardio regular rate, regular rhythm, S1 normal heart sound and S2 normal heart sound GI normal to inspection, nondistended, normoactive bowel sounds, soft to palpation, non-tender and non-distended Extremity normal to inspection Assessment & Plan Assessment/Plan (1) Respiratory failure: QUALIFIERS: Chronicity: acute on chronic Respiratory failure complication: hypoxia and hypercapnia Qualified Code(s): J96.21 - Acute and chronic respiratory failure with hypoxia; J96.22 - Acute and chronic respiratory failure with hypercapnia PLAN: Acute on Chronic Hypoxic Respiratory Failure, likely Multifactorial, COPD exacerbation, acute on chronic HFpEF and recent left hilar pneumonia: Patient is admitted in PCU. Undergoing dialysis. Patient is started on regimen for COPD exacerbation with scheduled and as needed bronchodilator, IV Solu-Medrol, incentive spirometry and Pep.Most recent ECHO noted 10/30/22 with mild inferior and inferior septal hypokinesis, LVEF 50%, severely enlarged LA, moderately enlarged RA, moderate TVI, PASP 51 mmHg. Continue patient home fluticasone as well as montelukast home regimen. PT/OT/CM consultation for discharge planning. I talked to the patient's son power of transactional attorney for health and he will come at 2 PM for interdisciplinary rounds. For now he is not agreeable for hospice consult but okay with palliative care although I told him the same thing will continue as patient is of high clinical need and needs inpatient hospice care. 01/27: Patient intermittently on nasal cannula but mostly on BiPAP. Yesterday's discussion interdisciplinary rounds, patient's son agreed for discharge to home with BiPAP at home hospice status. Status changed to DNR CC arrest with no intubation. 01/28: Overall the plan is to discharge home with hospice care on BiPAP on Sunday. Patient did not want to go to residential and gets easily upset with even name of residential. Already discussed with case coordinator and charge nurse. Patient is currently doing well on oxygen and BiPAP at night PLAN: Plan Chronic conditions: * Chronic anemia/AOCD/Fe deficiency anemia: Hemoglobin 8.3 g. Recent discharge Hgb 7.3. : Last hemoglobin is 8.3. Platelet count 208,000. Follow-up labs tomorrow. 01/28 no acute bleeding. Hemoglobin on her baseline. * Recent history of significant GI bleed on anticoagulant therapy at that time: 10/2022 admission with significant GI bleed with hemoglobin dropping down to 4.2, received 4 unit PRBC per report with EGD notable for angiodysplastic lesions with congestive gastritis and erythematous duodenopathy with injection/heater probe treatment with plan to follow-up outpatient for capsule endoscopy. We will continue home PPI regimen. Recent discharge 01/25/23 Hgb 7.3. * ESRD: Patient with chronic dialysis Sunday, Sunday, Sunday, negative cutter consulted. Patient was consulted by negative cutter. * PAF: We will continue Coreg as BP allows, not on any chronic anticoagulant therapy with history of significant previous GI bleed as noted. * Anxiety and depression: continue patient home mirtazapine and duloxetine on regimen. * Hypertension: Continue home Coreg, hydralazine and oral amlodipine. Continue chronic midodrine with dialysis regimen. * Hyperlipidemia: Not on statin therapy, defer to outpatient. * Former tobacco use: Encourage continued tobacco cessation. * History of diabetes mellitus type II: Not on regimen, last hemoglobin A1c noted 12/01/2020 less than 3.8, at this point will defer ADA diet Accu-Chek with insulin sliding scale but will have as needed Accu-Chek with hypoglycemia protocol if needed * Chronic pain syndrome: Patient from previous admission on chronic fentanyl patch, will continue once clarified. DVT prophylaxis: SCDs. CODE status: DNRCCA, no intubation. Charges/Coding Visit Charges Inpatient E&M: 33637 Subs Hosp L2
--- NOTE | 2023-01-29 09:53 | CASEMGMT ---
Addendum entered by Musa Dalal 01/29/23 13:40: Quang also states the plan for pt's other DME that is in the pt's home that was provided by [employer] (hospital bed, O2, and nebulizer) will be picked up tomorrow at pt's home and then the company [facility] [employer] is contracted with will deliver this equipment to pt's home after it [employer] equipment has been picked up. REGGIE FAN spoke w/Tena @ [employer] re: BIPAP, who states this needs to go through [employer]. REGGIE FAN placed call to [employer] who states her manager business intelligence informed her this needs to go through [facility] and they will forward this to the local branch. Addendum entered by Musa Dalal 01/29/23 13:25: Call to [facility] and was provided w/Quang'shade work cell @ [facility]: [phone]. Call to Quang. He states he spoken w/[facility] who now states they do not have a BIPAP available to provide to pt. He states he has reached out [employer] and to [employer] and is awaiting call back re: if they have BIPAP available and are able to bill Hospice for the BIPAP instead of [employer] [facility]. He is awaiting return call. Addendum entered by Musa Dalal 01/29/23 10:27: REGGIE FAN spoke shahnaz/Quang @ [facility] who was made aware of below info from [facility]. He is aware [employer] is pt's preferred provider for DME. He states [employer] is not able to provide a BIPAP, so that is why [facility] will be providing it. REGGIE FAN inquired about the criteria for a BIPAP through pt's insurance if she is on hospice. He states the BIPAP would be billed through Hospice, not through pt's insurance. He states he will call Cl[facility] back to discuss this w/doreen and then will call this REGGIE FAN back. Original Note: REGGIE FAN NOTE: Spoke shahnaz/Quang @ [facility] who states [facility] is requesting order for BIPAP and sleep study notes. Call to [facility] and spoke shahnaz/Cat[place]ita. She was made aware pt has never had a sleep study and was not on BIPAP @ home previously. She is also aware pt will be on Hospice when she discharges home. Catrachita states pt's insurance requires that pt have an overnight sleep study done and AHI needs to be above 5 for her insurance to cover for a BIPAP, even with being on Hospice care. She states the overnight sleep study can either be done while @ [facility] or as a home-study. If overnight pulse ox is done @ home instead of at [facility], then she would need an order for the overnight pulse ox. Claudio would do the overnight pulse ox to see if pt qualifies for a BIPAP. If overnight pulse ox is done @ [facility] and pt qualifies for BIPAP after having the overnight sleep study done, then she will need an order for the BIPAP and chart notes w/documentation to support that pt qualifies for and would benefit from the use of a BIPAP. Tanmay HOFFMANN RN CM
[2023-01-29] MEDS: LORazepam 0.5 MG Tablet PO ×2 (10:26→15:46)
[2023-01-29] MEDS: Vitamin B Comp W-C Capsule 1 CAP PO (10:26)
[2023-01-29] MEDS: DULoxetine Hcl 60 MG Capsule PO (10:26)
[2023-01-29] MEDS: Pantoprazole Sodium 40 MG Tablet PO ×2 (10:26→21:12)
[2023-01-29] MEDS: Carvedilol 12.5 MG Tablet PO ×2 (10:26→21:12)
[2023-01-29] MEDS: Polyethylene Glycol 3350 17 GM PACKET PO (10:26)
[2023-01-29] MEDS: Midodrine HCl 5 MG Tablet 10 MG PO (10:26)
[2023-01-29] MEDS: fentaNYL 25 MCG Patch TD (10:26)
[2023-01-29] MEDS: amLODIPine 5 MG Tablet PO (10:26)
[2023-01-29] MEDS: Doxycycline 100 MG CAPSULE PO ×2 (10:35→21:12)
--- NOTE | 2023-01-29 12:29 | PN.RENAL_ITS ---
Subjective Subjective Sitting up in bed, denies any complaints. Had dialysis earlier this morning and states breathing improved, no cramping during dialysis. Objective Data Objective Data Vital Signs: Vital Signs Temp Pulse Resp BP Pulse Ox O2 Del Method O2 Flow Rate 96.5 F L 104 H 16 174/95 H 100 Room Air 4 01/29/23 10:40 01/29/23 11:16 01/29/23 11:16 01/29/23 10:40 01/29/23 10:40 01/29/23 10:40 01/29/23 09:56 FiO2 30 01/29/23 05:30 Oxygen Flow Rate (L/min) 4 Oxygen Delivery Method Room Air Weight: 65.5 kg Body Mass Index (BMI) 21.4 Intake & Output: Intake and Output for Last 24 Hours 01/27/23 01/28/23 01/29/23 23:59 23:59 23:59 Intake Total 1100 / 1100 950 / 950 Output Total 0 / 0 2100 / 2100 Balance 1100 / 1100 950 / 950 -2100 / -2100 Lab / Micro Data 01/26/23 09:00 01/26/23 09:00 Rhythm Strip Rhythm Strip: A-fib Rate: 102 Ectopy: None Physical Exam Narrative Alert awake oriented x 3 no obvious distress s1s2 no murmurs lungs clear anteriorly abdomen soft no edema Assessment & Plan Assessment/Plan (1) ESRD (end stage renal disease) on dialysis: PLAN: Dialysis schedule Sunday. Tolerated dialysis today over 3.5 hours with 2.1 L fluid removal. Last hemoglobin 8.3. Patient receives ANGELI and iron at dialysis. Received ANGELI with HD today. Blood pressures acceptable on norvasc, coreg, hydralazine Discharge planning to home with her son on hospice program with Bipap. Ok for discharge per renal and next HD will be Sunday at [facility].
[2023-01-29] MEDS: hydrALAZINE 50 MG Tablet PO ×2 (13:37→21:11)
[2023-01-29] MEDS: Epoetin Alfa epbx 10,000 UNITS/ML 10000 UNIT IV (15:18)
--- NOTE | 2023-01-29 16:02 | CASEMGMT ---
REGGIE FAN called Quang at [facility] and updated regarding [employer] to reach out regarding Bipap arrangements. REGGIE FAN requested Quang to call when equipment is delivered to patient's home to arrange discharge. REGGIE FAN updated hospitalist. CM will continue to follow this patient and plan for a safe discharge.
--- NOTE | 2023-01-29 16:34 | CHAPLAIN ---
Type of Pastoral Visit _x__ Initial Visit ___ Follow-up Visit ___ On-call Visit ___ General Patient Visit ___ Spiritual Assessment ___ Family Conference ___ Bereavement ___ Rapid Response ___ Code Blue ___ Other (describe below) Pastoral Care Referral From _x__ Patient ___ Family _x__ Nurse ___ Physician ___ Cemetery Keeper ___ Quilt Sewer ___ Other (describe below) Sacrament/Intervention _x__ Active listening ___ Anointing ___ Worship ___ Bereavement ___ Communion _x__ Flaca exploration ___ ___ Life review _x__ Prayer ___ Reconciliation ___ Sacrament of Sick _x__ Supportive presence ___ Wedding ___ Other (describe below) Pastoral Comments RN called to request visit for patient per her request; pt welcomes encounter for spiritual care; pt is on bi-pap and has some difficulty with speaking clearly and is encouraged to talk slowly as time is given to her need of expression; pt states I am dying and I am sorry for all the things I've done; pt requests prayer for forgiveness and to prepare herself for ; scriptures and prayers given to primer expeditor and drier to her emotional and spiritual needs; time for listening that her questions and concerns are addressed; time given to sit and hold hand of pt for comfort as she labors to breathe; continued to ask if patient had other concerns and pt says no; pt is expressive to give thanks for the visit; pt is asked if family or others are coming to be with her but she gives vague answer; will continue to be available as long as patient is admitted to hospital
[2023-01-29] MEDS: Mirtazapine 30 MG Tablet PO (21:12)
[2023-01-29] MEDS: Montelukast 10 MG Tablet PO (21:12)
[2023-01-29] MEDS: MELATONIN 3 MG TABLET PO (23:01)
[2023-01-30] VITALS (12 sets, daily range): BP systolic 122–155; BP diastolic 74–102; PULSE 70–112; RESP 12–20; TEMP 36.1–36.6; O2SAT 96–100; BMI 21.7
[2023-01-30] MEDS: Methylprednisolone Sod Succ 40 MG/ML VIAL IV ×3 (06:32→21:29)
[2023-01-30] MEDS: Ipratropium/Albuterol Sulfate 3 ML AMPUL.NEB INHALATION ×3 (07:00→19:08)
[2023-01-30] MEDS: oxyCODONE 5 MG Tablet PO ×2 (08:09→13:51)
[2023-01-30] MEDS: DULoxetine Hcl 60 MG Capsule PO (08:16)
[2023-01-30] MEDS: Vitamin B Comp W-C Capsule 1 CAP PO (08:16)
[2023-01-30] MEDS: Pantoprazole Sodium 40 MG Tablet PO ×2 (08:17→21:28)
[2023-01-30] MEDS: Ferrous Sulfate 325 MG Tablet PO (08:17)
[2023-01-30] MEDS: amLODIPine 5 MG Tablet PO (08:17)
[2023-01-30] MEDS: Carvedilol 12.5 MG Tablet PO ×2 (08:17→21:28)
[2023-01-30] MEDS: Doxycycline 100 MG CAPSULE PO ×2 (08:17→21:29)
--- NOTE | 2023-01-30 08:46 | PN.HOSP_ITS ---
Reason for Visit Reason for Visit: Diagnoses Acute and chronic respiratory failure with hypoxia (01/26/23) Acute and chronic respiratory failure with hypercapnia (01/26/23) Respiratory failure, unspecified, unspecified whether with hypoxia or hypercapnia (01/26/23) End stage renal disease (01/26/23) Dependence on renal dialysis (01/26/23) Subjective Subjective No issues overnight. Objective Data Objective Data Vital Signs: Vital Signs Temp Pulse Resp BP Pulse Ox O2 Del Method O2 Flow Rate 36.6 C 70 17 122/74 H 98 Bi-pap 4 01/30/23 04:45 01/30/23 05:05 01/30/23 05:05 01/30/23 04:45 01/30/23 05:05 01/30/23 04:57 01/29/23 19:52 FiO2 30 01/29/23 23:43 Oxygen Flow Rate (L/min) 4 Oxygen Delivery Method Bi-pap Weight: 66.5 kg Body Mass Index (BMI) 21.7 Intake & Output: Intake and Output for Last 24 Hours 01/28/23 01/29/23 01/30/23 23:59 23:59 23:59 Intake Total 950 / 950 720 / 720 Output Total 0 / 0 2100 / 2100 Balance 950 / 950 -1380 / -1380 Lab / Micro Data 01/26/23 09:00 01/26/23 09:00 Rhythm Strip Rhythm Strip: A-fib Rate: 102 Ectopy: None Physical Exam Const alert and no apparent distress HEENT head/scalp atraumatic and moist oral mucous membranes Resp normal respiratory effort, no retractions, no use of accessory muscles and clear to auscultation bilaterally Cardio regular rate, regular rhythm, S1 normal heart sound and S2 normal heart sound GI normal to inspection, nondistended, normoactive bowel sounds, soft to palpation, non-tender and non-distended Assessment & Plan Assessment/Plan (1) Respiratory failure: QUALIFIERS: Chronicity: acute on chronic Respiratory failure complication: hypoxia and hypercapnia Qualified Code(s): J96.21 - Acute and chronic respiratory failure with hypoxia; J96.22 - Acute and chronic respiratory failure with hypercapnia PLAN: Acute on Chronic Hypoxic Respiratory Failure, likely Multifactorial, COPD exacerbation, acute on chronic HFpEF and recent left hilar pneumonia: Patient is admitted in PCU. Undergoing dialysis. Patient is started on regimen for COPD exacerbation with scheduled and as needed bronchodilator, IV Solu-Medrol, incentive spirometry and Pep.Most recent ECHO noted 10/30/22 with mild inferior and inferior septal hypokinesis, LVEF 50%, severely enlarged LA, moderately enlarged RA, moderate TVI, PASP 51 mmHg. Continue patient home fluticasone as well as montelukast home regimen. PT/OT/CM consultation for discharge planning. I talked to the patient's son power of tax associate attorney for health and he will come at 2 PM for interdisciplinary rounds. For now he is not agreeable for hospice consult but okay with palliative care although I told him the same thing will continue as patient is of high clinical need and needs inpatient hospice care. 01/27: Patient intermittently on nasal cannula but mostly on BiPAP. Yesterday's discussion interdisciplinary rounds, patient's son agreed for discharge to home with BiPAP at home hospice status. Status changed to DNR CC arrest with no intubation. 01/28: Overall the plan is to discharge home with hospice care on BiPAP on . Patient did not want to go to alf and gets easily upset with even name of alf. Already discussed with correctional case manager and charge nurse. Patient is currently doing well on oxygen and BiPAP at night PLAN: Plan Chronic conditions: * Chronic anemia/AOCD/Fe deficiency anemia: Hemoglobin 8.3 g. Recent discharge Hgb 7.3. : Last hemoglobin is 8.3. Platelet count 208,000. Follow-up labs tomorrow. 01/28 no acute bleeding. Hemoglobin on her baseline. * Recent history of significant GI bleed on anticoagulant therapy at that time: 10/2022 admission with significant GI bleed with hemoglobin dropping down to 4.2, received 4 unit PRBC per report with EGD notable for angiodysplastic lesions with congestive gastritis and erythematous duodenopathy with injection/heater probe treatment with plan to follow-up outpatient for capsule endoscopy. We will continue home PPI regimen. Recent discharge 01/25/23 Hgb 7.3. * ESRD: Patient with chronic dialysis Sunday, Sunday, Sunday, construction services technician consulted. Patient was consulted by construction services technician. * PAF: We will continue Coreg as BP allows, not on any chronic anticoagulant therapy with history of significant previous GI bleed as noted. * Anxiety and depression: continue patient home mirtazapine and duloxetine on regimen. * Hypertension: Continue home Coreg, hydralazine and oral amlodipine. Continue chronic midodrine with dialysis regimen. * Hyperlipidemia: Not on statin therapy, defer to outpatient. * Former tobacco use: Encourage continued tobacco cessation. * History of diabetes mellitus type II: Not on regimen, last hemoglobin A1c noted 12/01/2020 less than 3.8, at this point will defer ADA diet Accu-Chek with insulin sliding scale but will have as needed Accu-Chek with hypoglycemia protocol if needed * Chronic pain syndrome: Patient from previous admission on chronic fentanyl pat ch, will continue once clarified. DVT prophylaxis: SCDs. CODE status: DNRCCA, no intubation. Disposition: home with hospice services. Pt to have BiPAP and continue with HD despite being hospice.
[2023-01-30] MEDS: LORazepam 0.5 MG Tablet PO (11:44)
--- NOTE | 2023-01-30 12:05 | CASEMGMT ---
RN MITA Face to Face with patient for initial transition planning/care coordination assessment. RN CM introduced self and role at [facility]. Patient lying in bed, alert and oriented. Patient willing to participate in assessment and is able to answer all questions appropriately. Care providers, pharmacy, and demographics verified. Patient wishes to discharge home, denies need for home health at this time. Patient states she has no further needs or concerns at this time. CM to follow for discharge planning needs that may arise. PCP: Caryn Keene Specialists: [facility] Preferred Pharmacy: [facility] Insurance: [employer] Prescription Benefit: yes Living Will/HPOA: none LNOK: daughter Living Arrangements: Patient lives with daughter and daughter's boyfriend in a 2 story apartment. Patient is independent and able to ambulate Transportation: mother DME/HHC: Patient has raised toilet, cane, walker, and glucometer with supplies. Patient has been to [facility] in the past. Patient has had [facility]. Disposition Plan: Patient to discharge home with family support and follow up plans in place. Rashmi GARCIA, RN, CM
--- NOTE | 2023-01-30 13:02 | PCM.DC.SUM ---
Providers Date of Admission: 01/26/23 Primary Care Physician: Dr. Mariela Hobbs MD Consultations 01/26/23 02:19 Consult: Nephrology Routine Consulting Provider: Soraida Sears Reason for Consult: ESRD on HD EMERGENT Consult: No MD Notified: No Date Notified: 01/26/23 Time Notified: 01:42 Reason For Visit: RESP FAILURE, COPD EXAC, RECENT PNA/CHF EXAC Diagnosis Discharge Diagnosis (1) Respiratory failure: Status: Acute Code(s): J96.90 - Respiratory failure, unspecified, unspecified whether with hypoxia or hypercapnia Qualifiers: Chronicity: acute on chronic Respiratory failure complication: hypoxia and hypercapnia Qualified Code(s): J96.21 - Acute and chronic respiratory failure with hypoxia; J96.22 - Acute and chronic respiratory failure with hypercapnia Plan: Acute on Chronic Hypoxic Respiratory Failure, likely Multifactorial, COPD exacerbation, acute on chronic HFpEF and recent left hilar pneumonia: Patient is admitted in PCU. Undergoing dialysis. Patient is started on regimen for COPD exacerbation with scheduled and as needed bronchodilator, IV Solu-Medrol, incentive spirometry and Pep.Most recent ECHO noted 10/30/22 with mild inferior and inferior septal hypokinesis, LVEF 50%, severely enlarged LA, moderately enlarged RA, moderate TVI, PASP 51 mmHg. Continue patient home fluticasone as well as montelukast home regimen. PT/OT/CM consultation for discharge planning. I talked to the patient's son power of civil rights attorney for health and he will come at 2 PM for interdisciplinary rounds. For now he is not agreeable for hospice consult but okay with palliative care although I told him the same thing will continue as patient is of high clinical need and needs inpatient hospice care. 01/27: Patient intermittently on nasal cannula but mostly on BiPAP. Yesterday's discussion interdisciplinary rounds, patient's son agreed for discharge to home with BiPAP at home hospice status. Status changed to DNR CC arrest with no intubation. 01/28: Overall the plan is to discharge home with hospice care on BiPAP on Sunday. Patient did not want to go to shelter and gets easily upset with even name of shelter. Already discussed with rn case manager hospice and charge nurse. Patient is currently doing well on oxygen and BiPAP at night Plan Chronic conditions: Chronic anemia/AOCD/Fe deficiency anemia: Hemoglobin 8.3 g. Recent discharge Hgb 7.3. : Last hemoglobin is 8.3. Platelet count 208,000. Follow-up labs tomorrow. 01/28 no acute bleeding. Hemoglobin on her baseline. Recent history of significant GI bleed on anticoagulant therapy at that time: 10/2022 admission with significant GI bleed with hemoglobin dropping down to 4.2, received 4 unit PRBC per report with EGD notable for angiodysplastic lesions with congestive gastritis and erythematous duodenopathy with injection/heater probe treatment with plan to follow-up outpatient for capsule endoscopy. We will continue home PPI regimen. Recent discharge 01/25/23 Hgb 7.3. ESRD: Patient with chronic dialysis Sunday, Sunday, Sunday, stone processing machine operator consulted. Patient was consulted by stone processing machine operator. PAF: We will continue Coreg as BP allows, not on any chronic anticoagulant therapy with history of significant previous GI bleed as noted. Anxiety and depression: continue patient home mirtazapine and duloxetine on regimen. Hypertension: Continue home Coreg, hydralazine and oral amlodipine. Continue chronic midodrine with dialysis regimen. Hyperlipidemia: Not on statin therapy, defer to outpatient. Former tobacco use: Encourage continued tobacco cessation. History of diabetes mellitus type II: Not on regimen, last hemoglobin A1c noted 12/01/2020 less than 3.8, at this point will defer ADA diet Accu-Chek with insulin sliding scale but will have as needed Accu-Chek with hypoglycemia protocol if needed Chronic pain syndrome: Patient from previous admission on chronic fentanyl patch, will continue once clarified. DVT prophylaxis: SCDs. CODE status: DNRCCA, no intubation. Disposition: home with hospice services. Pt to have BiPAP and continue with HD despite being hospice. Medications at Discharge Home Medications montelukast 10 mg tablet (Singulair) 10 mg PO QHS ALLERGIES 10/25/21 midodrine 10 mg tablet 10 mg PO MOWEFR BLOOD PRESSURE 02/23/22 duloxetine 60 mg capsule,delayed release 60 mg PO DAILY DEPRESSION 05/19/22 polyethylene glycol 3350 17 gram/dose oral powder (Miralax) 17 g PO DAILY CONSTIPATION 05/19/22 tiotropium bromide 2.5 mcg/actuation mist for inhalation (Spiriva Respimat) 2 puff inhalation DAILY SHORTNESS OF BREATH 05/19/22 pantoprazole 40 mg tablet,delayed release 40 mg PO BID ACID REFLUX 10/20/22 vitamin B complex-vitamin C-folic acid 0.8 mg tablet (Lizabeth-Eliza) 1 tab PO DAILY SUPPLEMENT 10/30/22 albuterol sulfate 90 mcg/actuation aerosol inhaler 2 puff inhalation Q6H PRN SOB 30 days #0 grams 11/01/22 albuterol sulfate 2.5 mg/3 mL (0.083 %) solution for nebulization 2.5 mg inhalation Q2H PRN SOB/Wheezing 11/09/22 mirtazapine 30 mg tablet 30 mg PO QHS DEPRESSION 11/09/22 sennosides 8.6 mg-docusate sodium 50 mg tablet (Stool Softener-Stimulant Laxative) 2 tab PO BID PRN CONSTIPATION 11/09/22 acetaminophen 650 mg rectal suppository 650 mg NM Q4H PRN pain/fever 12/10/22 aluminum-magnesium hydroxide 225 mg-200 mg/5 mL oral suspension 30 ml PO Q4H PRN GI distress 12/10/22 bisacodyl 10 mg rectal suppository 10 mg NM DAILY PRN Constipation 12/10/22 fluticasone furoate 200 mcg-vilanterol 25 mcg/dose inhalation powder (Breo Ellipta) 1 ea inhalation DAILY COPD 12/10/22 carvedilol 12.5 mg tablet 12.5 mg PO BID blood pressure #0 tabs 12/12/22 fentanyl 25 mcg/hr transdermal patch 1 patch transdermal Q72H severe pain 01/23/23 hydroxyzine HCl 25 mg tablet 25 mg PO Q4H PRN itching 01/23/23 hyoscyamine sulfate 0.125 mg tablet 0.125 mg PO Q4H PRN excess secretions 01/23/23 lorazepam 0.5 mg tablet (Ativan) 0.5 mg PO Q4H PRN anxiety 01/23/23 ondansetron 4 mg disintegrating tablet 4 mg PO Q6H PRN nausea/vomiting 01/23/23 oxycodone 10 mg tablet 10 mg PO Q6H PRN pain 3 days #1 TAB 01/30/23 prednisone 20 mg tablet 40 mg (2 x 20 mg) PO DAILY #10 tabs 01/30/23 Hospital Course Operations None Summary of Care Provided Minutes Spent on Discharge: 32 Weight / BMI Weight Weight: 66.5 kg Body Mass Index (BMI) 21.7 ABG / Lab / Microbiology Data 01/26/23 09:00 01/26/23 09:00 D/C Instructions Discharge Diet: No restrictions Meaningful Use Info Meaningful Use Diagnoses (Choose all that apply): None applicable Discharge Plan Admission Admit Date/Time: 01/26/23 00:53 Primary Reason for Your Visit: respiratory failure. Attending Provider: Stiven Mo Primary Care Provider: Mariela Hobbs Consulting Providers: Reema Cai; Deandre Langford Discharge Orders/Prescriptions Prescriptions: New prednisone 20 mg tablet 40 mg PO DAILY Qty: 10 0RF oxycodone 10 mg tablet 10 mg PO Q6H PRN (Reason: pain) 3 Days Qty: 1 0RF Continued montelukast [Singulair] 10 mg Tablet 10 mg PO QHS midodrine 10 mg tablet 10 mg PO MOWEFR Spiriva Respimat 2.5 mcg/actuation Mist 2 puff INHALATION DAILY duloxetine 60 mg capsule,delayed release(DR/EC) 60 mg PO DAILY polyethylene glycol 3350 [Miralax] 17 gram/dose powder 17 g PO DAILY pantoprazole 40 mg tablet,delayed release (DR/EC) 40 mg PO BID Lizabeth-Eliza 0.8 mg Tablet 1 tab PO DAILY albuterol sulfate 90 mcg/actuation HFA aerosol inhaler 2 puff inhalation Q6H PRN (Reason: SOB) 30 Days Qty: 0 0RF mirtazapine 30 mg Tablet 30 mg PO QHS albuterol sulfate 2.5 mg /3 mL (0.083 %) solution for nebulization 2.5 mg inhalation Q2H PRN (Reason: SOB/Wheezing) sennosides-docusate sodium [Stool Softener-Stimulant Laxat] 8.6-50 mg tablet 2 tab PO BID PRN (Reason: CONSTIPATION ) fluticasone furoate-vilanterol [Breo Ellipta] 200-25 mcg/dose blister with device 1 ea INHALATION DAILY Patient Comments: Inhale 1 puff as directed once a day acetaminophen 650 mg Suppository 650 mg NM Q4H PRN (Reason: pain/fever) bisacodyl 10 mg Suppository 10 mg NM DAILY PRN (Reason: Constipation) aluminum-magnesium hydroxide 225-200 mg/5 mL Suspension 30 ml PO Q4H PRN (Reason: GI distress) carvedilol 12.5 mg Tablet 12.5 mg PO BID Qty: 0 0RF fentanyl 25 mcg/hr patch 72 hour 1 patch transdermal Q72H Patient Comments: APPLY 1 (ONE) PATCH TO SKIN EVERY 72 HOURS hydroxyzine HCl 25 mg tablet 25 mg PO Q4H PRN (Reason: itching ) hyoscyamine sulfate 0.125 mg tablet 0.125 mg PO Q4H PRN (Reason: excess secretions ) Patient Comments: Take 0.125 mg by mouth as directed lorazepam [Ativan] 0.5 mg tablet 0.5 mg PO Q4H PRN (Reason: anxiety) Patient Comments: Take 0.5 mg by mouth as needed ondansetron 4 mg tablet,disintegrating 4 mg PO Q6H PRN (Reason: nausea/vomiting ) Patient Comments: Take 4 mg by mouth as needed Discontinued hydralazine 100 MG tablet 50 mg PO TID 30 Days Qty: 0 0RF Rx Instructions: Hold for SBP less than 130 mmHg acetaminophen [Tylenol] 325 mg tablet 650 mg PO Q4H PRN PRN (Reason: Pain/fever) amlodipine 5 mg tablet 5 mg PO DAILY ferrous sulfate [FeroSul] 325 mg (65 mg iron) tablet 325 mg PO QODAY doxycycline hyclate 100 mg capsule 100 mg PO BID Qty: 10 0RF Referrals / Follow Up: Palliative, [facility] [Other] - 02/01/23 1:00 pm Mariela Hobbs MD [Primary Care Provider] - Disposition Disposition (needs filled in before D/C Order can be placed): Hospice in Home Charges/Coding Visit Charges Inpatient E&M: 82328 Disch Hosp >30min
--- NOTE | 2023-01-30 13:46 | PN.RENAL_ITS ---
Subjective Subjective Sitting up in bed. no complaints. No overnight events. Objective Data Objective Data Vital Signs: Vital Signs Temp Pulse Resp BP Pulse Ox O2 Del Method O2 Flow Rate 97.7 F L 83 18 149/91 H 99 Nasal Cannula 4 01/30/23 10:45 01/30/23 10:45 01/30/23 10:45 01/30/23 10:45 01/30/23 10:45 01/30/23 10:45 01/30/23 10:45 FiO2 30 01/29/23 23:43 Oxygen Flow Rate (L/min) 4 Oxygen Delivery Method Nasal Cannula Weight: 66.5 kg Body Mass Index (BMI) 21.7 Intake & Output: Intake and Output for Last 24 Hours 01/28/23 01/29/23 01/30/23 23:59 23:59 23:59 Intake Total 950 / 950 720 / 720 Output Total 0 / 0 2100 / 2100 Balance 950 / 950 -1380 / -1380 Lab / Micro Data 01/26/23 09:00 01/26/23 09:00 Rhythm Strip Rhythm Strip: A-fib Rate: 102 Ectopy: None Physical Exam Narrative Alert awake oriented x 3 no obvious distress s1s2 no murmurs lungs clear anteriorly, no wheezes, rhonchi, rales noted abdomen soft no edema TDC dressing C/D/I Assessment & Plan Assessment/Plan (1) ESRD (end stage renal disease) on dialysis: PLAN: Dialysis schedule Sunday. Tolerated dialysis yesterday with 2.1 L fluid removal. No acute indication for SUSTAINABILITY PURCHASING AGENT today, next HD tomorrow Last hemoglobin 8.3. Patient receives ANGELI and iron at dialysis. Received ANGELI with HD yesterday. Blood pressures acceptable on norvasc, coreg, hydralazine labs ordered for am Discharge planning to home with her son on hospice program with Bipap. Ok for discharge per renal and next HD will be Sunday at [facility].
[2023-01-30] MEDS: hydrALAZINE 50 MG Tablet PO ×2 (13:47→21:28)
[2023-01-30] MEDS: 0.9% Saline Lock 10 ML Syringe IV (13:55)
--- NOTE | 2023-01-30 15:27 | CASEMGMT ---
Addendum entered by Rashmi Almeida 01/30/23 17:05: REGGIE FAN received update from Melissa that they received a script but it is incorrect, therefore they are unable to delivery bipap to patient today. REGGIE FAN received call from Quang at [facility] stating he will get updated script tomorrow and coordinate with [facility] [place]. RN MITA called and updated yarelis Garcia who voiced understanding. RN MITA updated charge nurse and hospitalist. CM will continue to follow this patient and plan for a safe discharge. Original Note: REGGIE FAN called and spoke with Melissa at [facility] and confirmed that Bipap will be setup this evening for patient around 6-7pm. Per Quang at [facility], delivery of remaining equipment to be delivered between 2-4. REGGIE FAN updated hospitalist and SW. Discharge summary and copy of DNR faxed to Quang at [facility]. REGGIE FAN attempted to call yarelis Garcia, no answer, voice message left with return contact information. REGGIE FAN received call from Melissa stating that they have not received script for bipap from hospice and they will need script by 4pm to continue to setup bipap for delivery today. REGGIE FAN called Quang to update regarding script for bipap. Per Quang, the doctors are extremely busy today and he is working on it. Quang states he spoke with yarelis Garcia and equipment is being delivered now between 4-5 and that Jose would prefer for patient to have transport setup. REGGIE FAN updated SW. CM will continue to follow this patient and plan for a safe discharge.
[2023-01-30] MEDS: Montelukast 10 MG Tablet PO (21:29)
[2023-01-30] MEDS: Mirtazapine 30 MG Tablet PO (21:29)
[2023-01-31] VITALS (18 sets, daily range): BP systolic 154–188; BP diastolic 68–102; PULSE 57–103; RESP 12–22; TEMP 36–36.3; O2SAT 96–100; BMI 21.8; BMI 21.0; BMI 21.4
[2023-01-31] MEDS: oxyCODONE 5 MG Tablet PO ×3 (02:12→14:34)
[2023-01-31 03:22] LABS: Absolute Lymphocyte Count 0.33 X10^3/uL (0.83-4.51); Absolute Neutrophil Count 7.5 X10^3/uL (2.0-7.7); Basophil# 0.01 X10^3/uL; Basophil% 0.1 % (0-1); Hematocrit 32.8 % (37-47); Hemoglobin 9.7 g/dL (12.0-15.0); Lymphocyte # 0.33 X10^3/ul (0.83-4.51); Lymphocyte % 4.1 % (19-41); Mean Corp Hgb Conc 29.6 g/dL (32-36); Mean Corpuscular Hgb 25.5 pg (27.0-32.0); Mean Corpuscular Volume 86.3 fL (81-99); Mean Platelet Vol. 9.1 fl (6.2-12.0); Monocyte# 0.19 X10^3/uL; Monocyte% 2.3 % (0-10); NRBC Flagged by Analyzer 1.1 % (0-5); Neutrophil # 7.51 X10^3/uL (2.7-7.7); Neutrophil % 92.9 % (47-70); POSITIVE DIFFERENTIAL YES; POSITIVE MORPHOLOGY YES; Platelet Count 256 K/mm3 (150-450); RBC Distribution Width CV 20.4 % (11.6-14.6); RBC Distribution Width SD 62.3 fl (35.1-43.9); White Blood Count 8.1 K/mm3 (4.4-11.0)
[2023-01-31 03:23] LABS: Differential Indicated SCAN CRITERIA MET
[2023-01-31 03:51] LABS: Anisocytosis 1+; Differential Comment SCANNED; Polychromasia RARE
[2023-01-31 03:52] LABS: Burr Cells RARE
[2023-01-31] MEDS: hydrALAZINE 50 MG Tablet PO ×2 (04:32→14:33)
[2023-01-31] MEDS: Methylprednisolone Sod Succ 40 MG/ML VIAL IV ×2 (04:33→14:34)
[2023-01-31] MEDS: Ipratropium/Albuterol Sulfate 3 ML AMPUL.NEB INHALATION ×2 (07:44→15:09)
--- NOTE | 2023-01-31 08:37 | PN.HOSP_ITS ---
Reason for Visit Reason for Visit: Diagnoses Chronic obstructive pulmonary disease with (acute) exacerbation (01/26/23) Acute and chronic respiratory failure with hypoxia (01/26/23) Acute and chronic respiratory failure with hypercapnia (01/26/23) Respiratory failure, unspecified, unspecified whether with hypoxia or hyperc apnia (01/26/23) End stage renal disease (01/26/23) Dependence on renal dialysis (01/26/23) Subjective Subjective Feels well. No current complaints. Objective Data Objective Data Vital Signs: Vital Signs Temp Pulse Resp BP Pulse Ox O2 Del Method O2 Flow Rate 36.2 C L 99 22 H 154/78 H 97 Nasal Cannula 4 01/31/23 04:30 01/31/23 07:35 01/31/23 07:35 01/31/23 04:32 01/31/23 08:03 01/31/23 08:03 01/31/23 08:03 FiO2 30 01/31/23 03:40 Oxygen Flow Rate (L/min) 4 Oxygen Delivery Method Nasal Cannula Weight: 66.9 kg Body Mass Index (BMI) 21.8 Intake & Output: Intake and Output for Last 24 Hours 01/29/23 01/30/23 01/31/23 23:59 23:59 23:59 Intake Total 720 / 720 480 / 480 Output Total 2100 / 2100 Balance -1380 / -1380 480 / 480 Lab / Micro Data 01/31/23 03:15 01/26/23 09:00 Labs: Laboratory Results - last 24 hr 01/31/23 03:15: WBC 8.1, RBC 3.80 L, Hgb 9.7 L, Hct 32.8 L, MCV 86.3, MCH 25.5 L , MCHC 29.6 L, RDW Std Deviation 62.3 H, RDW Coeff of Destiny 20.4 H, Plt Count 256, MPV 9.1, Immature Gran % (Auto) 0.600, Neut % (Auto) 92.9 H, Lymph % (Auto) 4.1 L, [place] % (Auto) 2.3, Eos % (Auto) 0.0, Baso % (Auto) 0.1, Absolute Neuts (auto) 7.5, Absolute Lymphs (auto) 0.33 L, Nucleated RBC % 1.1, Differential Comment SCANNED, Polychromasia RARE, Anisocytosis 1+, [place] Cells RARE Rhythm Strip Rhythm Strip: A-fib Rate: 102 Ectopy: None Physical Exam Const alert and no apparent distress HEENT head/scalp atraumatic and moist oral mucous membranes Resp normal respiratory effort, no retractions, no use of accessory muscles and clear to auscultation bilaterally Cardio regular rate, regular rhythm, S1 normal heart sound and S2 normal heart sound GI normal to inspection, nondistended, normoactive bowel sounds and soft to palpation Assessment & Plan Assessment/Plan (1) Respiratory failure: QUALIFIERS: Chronicity: acute on chronic Respiratory failure complication: hypoxia and hypercapnia Qualified Code(s): J96.21 - Acute and chronic respiratory failure with hypoxia; J96.22 - Acute and chronic respiratory failure with hypercapnia PLAN: Acute on Chronic Hypoxic Respiratory Failure, likely Multifactorial, COPD exacerbation, acute on chronic HFpEF and recent left hilar pneumonia: Patient is admitted in PCU. Undergoing dialysis. Patient is started on regimen for COPD exacerbation with scheduled and as needed bronchodilator, IV Solu-Medrol, incentive spirometry and Pep.Most recent ECHO noted 10/30/22 with mild inferior and inferior septal hypokinesis, LVEF 50%, severely enlarged LA, moderately enlarged RA, moderate TVI, PASP 51 mmHg. Continue patient home fluticasone as well as montelukast home regimen. PT/OT/CM consultation for discharge planning. I talked to the patient's son power of tax associate attorney for health and he will come at 2 PM for interdisciplinary rounds. For now he is not agreeable for hospice consult but okay with palliative care although I told him the same thing will continue as patient is of high clinical need and needs inpatient hospice care. 01/27: Patient intermittently on nasal cannula but mostly on BiPAP. Yesterday's discussion interdisciplinary rounds, patient's son agreed for discharge to home with BiPAP at home hospice status. Status changed to DNR CC arrest with no intubation. 01/28: Overall the plan is to discharge home with hospice care on BiPAP on Sunday. Patient did not want to go to retirement and gets easily upset with even name of retirement. Already discussed with case packer and charge nurse. Patient is currently doing well on oxygen and BiPAP at night PLAN: Plan Chronic conditions: * Chronic anemia/AOCD/Fe deficiency anemia: Hemoglobin 8.3 g. Recent discharge Hgb 7.3. : Last hemoglobin is 8.3. Platelet count 208,000. Follow-up labs tomorrow. 01/28 no acute bleeding. Hemoglobin on her baseline. * Recent history of significant GI bleed on anticoagulant therapy at that time: 10/2022 admission with significant GI bleed with hemoglobin dropping down to 4.2, received 4 unit PRBC per report with EGD notable for angiodysplastic lesions with congestive gastritis and erythematous duodenopathy with inject ion/heater probe treatment with plan to follow-up outpatient for capsule endoscopy. We will continue home PPI regimen. Recent discharge 01/25/23 Hgb 7.3. * ESRD: Patient with chronic dialysis Sunday, Sunday, Sunday, technical systems architect consulted. Patient was consulted by technical systems architect. * PAF: We will continue Coreg as BP allows, not on any chronic anticoagulant therapy with history of significant previous GI bleed as noted. * Anxiety and depression: continue patient home mirtazapine and duloxetine on re gimen. * Hypertension: Continue home Coreg, hydralazine and oral amlodipine. Continue chronic midodrine with dialysis regimen. * Hyperlipidemia: Not on statin therapy, defer to outpatient. * Former tobacco use: Encourage continued tobacco cessation. * History of diabetes mellitus type II: Not on regimen, last hemoglobin A1c noted 12/01/2020 less than 3.8, at this point will defer ADA diet Accu-Chek with insulin sliding scale but will have as needed Accu-Chek with hypoglycemia protocol if needed * Chronic pain syndrome: Patient from previous admission on chronic fentanyl patch, will continue once clarified. DVT prophylaxis: SCDs. CODE status: DNRCCA, no intubation. Disposition: home with hospice services. Pt to have BiPAP and continue with HD despite being hospice. Charges/Coding Visit Charges Inpatient E&M: 08078 Subs Hosp L2
--- NOTE | 2023-01-31 09:30 | CASEMGMT ---
REGGIE FAN called Quang at [facility] to inquire about Bipap setup. Per Quang, he is waiting on hospice doctor to sign script and send it back to him. REGGIE FAN requested Quang to call with update when available. REGGIE FAN updated hospitalist. CM will continue to follow this patient and plan for a safe discharge.
[2023-01-31] MEDS: PureFlow B 2K Dialysis Soln 1 BAG 6 BAG PF (09:42)
[2023-01-31] MEDS: 0.9% Saline Lock 10 ML Syringe IV ×3 (09:44→11:20)
[2023-01-31] MEDS: Midodrine HCl 5 MG Tablet 10 MG PO (09:50)
[2023-01-31] MEDS: LORazepam 0.5 MG Tablet PO ×2 (09:50→14:34)
[2023-01-31] MEDS: Vitamin B Comp W-C Capsule 1 CAP PO (09:51)
[2023-01-31] MEDS: Carvedilol 12.5 MG Tablet PO (09:51)
[2023-01-31] MEDS: DULoxetine Hcl 60 MG Capsule PO (09:51)
[2023-01-31] MEDS: Doxycycline 100 MG CAPSULE PO (09:51)
[2023-01-31] MEDS: Pantoprazole Sodium 40 MG Tablet PO (09:52)
[2023-01-31] MEDS: amLODIPine 5 MG Tablet PO (09:52)
--- NOTE | 2023-01-31 10:56 | PN.RENAL_ITS ---
Subjective Subjective Seen and examined while on dialysis today, patient denies any complaints. No overnight events. Hopeful to be discharged to home today. Objective Data Objective Data Vital Signs: Vital Signs Temp Pulse Resp BP Pulse Ox O2 Del Method O2 Flow Rate 97.2 F L 91 14 179/97 H 97 Bi-pap 4 01/31/23 04:30 01/31/23 10:26 01/31/23 10:26 01/31/23 10:26 01/31/23 10:26 01/31/23 10:26 01/31/23 09:31 FiO2 30 01/31/23 03:40 Oxygen Flow Rate (L/min) 4 Oxygen Delivery Method Bi-pap Weight: 66.9 kg Body Mass Index (BMI) 21.8 Intake & Output: Intake and Output for Last 24 Hours 01/29/23 01/30/23 01/31/23 23:59 23:59 23:59 Intake Total 720 / 720 480 / 480 Output Total 2100 / 2100 Balance -1380 / -1380 480 / 480 Lab / Micro Data 01/31/23 03:15 01/26/23 09:00 Labs: Laboratory Results - last 24 hr 01/31/23 03:15: WBC 8.1, RBC 3.80 L, Hgb 9.7 L, Hct 32.8 L, MCV 86.3, MCH 25.5 L , MCHC 29.6 L, RDW Std Deviation 62.3 H, RDW Coeff of Destiny 20.4 H, Plt Count 256, MPV 9.1, Immature Gran % (Auto) 0.600, Neut % (Auto) 92.9 H, Lymph % (Auto) 4.1 L, [place] % (Auto) 2.3, Eos % (Auto) 0.0, Baso % (Auto) 0.1, Absolute Neuts (auto) 7.5, Absolute Lymphs (auto) 0.33 L, Nucleated RBC % 1.1, Differential Comment SCANNED, Polychromasia RARE, Anisocytosis 1+, [place] Cells RARE Rhythm Strip Rhythm Strip: A-fib Rate: 102 Ectopy: None Physical Exam Narrative Alert awake oriented x 3 no obvious distress s1s2 no murmurs lungs diminished with faint rales abdomen soft no edema TDC dressing C/D/I, accessed for dialysis Assessment & Plan Assessment/Plan (1) ESRD (end stage renal disease) on dialysis: PLAN: - ESRD on hemodialysis, outpatient schedule Sunday. Dialysis today and attempting ~2.5L UF. - Hemoglobin 9.7. Patient will receive ANGELI and iron at dialysis. - Blood pressures elevated this morning, expect blood pressures to improve with fluid removal with dialysis. Continue on norvasc, coreg, hydralazine - Discharge planning to home with her son on hospice program with Bipap. Ok for discharge.
[2023-01-31] MEDS: 0.9% Normal Saline 1,000 ML IV.SOLN. 1000 ML OPERA.SITE (11:20)
--- NOTE | 2023-01-31 14:16 | CASEMGMT ---
RN MITA called and spoke with Melissa to confirm Bipap setup. Per Melissa bipap to be delivered between 3-4pm. SW notified and transport setup for 5pm. Hospitalist notified. RN MITA received message from Gayle at [facility] ([place], [place]) and returned call with discharge plan and transport time. CM will continue to follow this patient and plan for a safe discharge.
--- NOTE | 2023-01-31 14:25 | CASEMGMT ---
SW called [facility] and arranged for patient to get picked up at 5p via cot. SW called patient's son Jose and notified him. SW also notified RN and secretary book keeper. Plan: d/c home with [facility]. [facility] will transport home. Evy GONZALEZ
--- NOTE | 2023-01-31 14:38 | PHA.DC.MR.R ---
Pharmacy [place] Med Reconciliation Pharmacy Service has performed discharge medication reconciliation for this patient. The patient's discharge medication list was reviewed for discrepancies and discrepancies were resolved. Medications at Discharge Home Medications montelukast 10 mg tablet (Singulair) 10 mg PO QHS ALLERGIES 10/25/21 midodrine 10 mg tablet 10 mg PO MOWEFR BLOOD PRESSURE 02/23/22 duloxetine 60 mg capsule,delayed release 60 mg PO DAILY DEPRESSION 05/19/22 polyethylene glycol 3350 17 gram/dose oral powder (Miralax) 17 g PO DAILY CONSTIPATION 05/19/22 tiotropium bromide 2.5 mcg/actuation mist for inhalation (Spiriva Respimat) 2 puff inhalation DAILY SHORTNESS OF BREATH 05/19/22 pantoprazole 40 mg tablet,delayed release 40 mg PO BID ACID REFLUX 10/20/22 vitamin B complex-vitamin C-folic acid 0.8 mg tablet (Lizabeth-Eliza) 1 tab PO DAILY SUPPLEMENT 10/30/22 albuterol sulfate 90 mcg/actuation aerosol inhaler 2 puff inhalation Q6H PRN SOB 30 days #0 grams 11/01/22 albuterol sulfate 2.5 mg/3 mL (0.083 %) solution for nebulization 2.5 mg inhalation Q2H PRN SOB/Wheezing 11/09/22 mirtazapine 30 mg tablet 30 mg PO QHS DEPRESSION 11/09/22 sennosides 8.6 mg-docusate sodium 50 mg tablet (Stool Softener-Stimulant Laxative) 2 tab PO BID PRN CONSTIPATION 11/09/22 acetaminophen 650 mg rectal suppository 650 mg MS Q4H PRN pain/fever 12/10/22 aluminum-magnesium hydroxide 225 mg-200 mg/5 mL oral suspension 30 ml PO Q4H PRN GI distress 12/10/22 bisacodyl 10 mg rectal suppository 10 mg MS DAILY PRN Constipation 12/10/22 fluticasone furoate 200 mcg-vilanterol 25 mcg/dose inhalation powder (Breo Ellipta) 1 ea inhalation DAILY COPD 12/10/22 carvedilol 12.5 mg tablet 12.5 mg PO BID blood pressure #0 tabs 12/12/22 fentanyl 25 mcg/hr transdermal patch 1 patch transdermal Q72H severe pain 01/23/23 hydroxyzine HCl 25 mg tablet 25 mg PO Q4H PRN itching 01/23/23 hyoscyamine sulfate 0.125 mg tablet 0.125 mg PO Q4H PRN excess secretions 01/23/23 lorazepam 0.5 mg tablet (Ativan) 0.5 mg PO Q4H PRN anxiety 01/23/23 ondansetron 4 mg disintegrating tablet 4 mg PO Q6H PRN nausea/vomiting 01/23/23 oxycodone 10 mg tablet 10 mg PO Q6H PRN pain 3 days #1 TAB 01/30/23 prednisone 20 mg tablet 40 mg (2 x 20 mg) PO DAILY #10 tabs 01/30/23
[2023-01-31] MEDS: Polyethylene Glycol 3350 17 GM PACKET PO (14:41)
== END 2023-01-31 17:59 | disposition hospice, home (50) | DRG 291 ==
LOC: ED 01-26 00:38 → PCU 01-26 01:03
PROVIDERS: Nurse Practitioner Adult Health; Admitting Provider Family Medicine; Emergency Provider Emergency Medicine; PCP Internal Medicine
DX: I13.2 Hypertensive heart and chronic kidney disease with heart failure and with stage 5 chronic kidney disease, or end stage renal disease (principal); J96.21 Acute and chronic respiratory failure with hypoxia; N18.6 End stage renal disease; I50.33 Acute on chronic diastolic (congestive) heart failure; J96.22 Acute and chronic respiratory failure with hypercapnia; D63.1 Anemia in chronic kidney disease; E11.22 Type 2 diabetes mellitus with diabetic chronic kidney disease; D50.9 Iron deficiency anemia, unspecified; I48.0 Paroxysmal atrial fibrillation; J43.9 Emphysema, unspecified; Z99.2 Dependence on renal dialysis; E78.5 Hyperlipidemia, unspecified; F32.A Depression, unspecified; J45.909 Unspecified asthma, uncomplicated; I25.10 Atherosclerotic heart disease of native coronary artery without angina pectoris; F41.9 Anxiety disorder, unspecified; I25.2 Old myocardial infarction; G89.4 Chronic pain syndrome; Z66 Do not resuscitate; Z99.81 Dependence on supplemental oxygen; Z79.51 Long term (current) use of inhaled steroids; Z79.891 Long term (current) use of opiate analgesic; Z79.899 Other long term (current) drug therapy; Z87.19 Personal history of other diseases of the digestive system; Z86.73 Personal history of transient ischemic attack (TIA), and cerebral infarction without residual deficits; Z87.891 Personal history of nicotine dependence
CPT/HCPCS: 36600; 71045; 80048; 80053; 82803; 83735; 84100; 84484; 85025; 90937; 93005; 94002; 94003; 94640; 94762; 97162; 97166; 97802; 99285; 99406; J7030; A4216; G0257; Q5106

== ENCOUNTER 2023-03-20 09:49 | Emergency (ER) | payer MEDICARE, MEDICAID, SELFPAY ==
[2023-03-20 09:50] VITALS: BP 175/90; PULSE 87; RESP 20; TEMP 36.8; O2SAT 99; BMI 21.3
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
[2023-03-20] MEDS: Ondansetron 4 MG/2 ML Vial IV (10:35)
[2023-03-20] MEDS: Morphine 4 MG/ML Syringe IV (10:35)
[2023-03-20 10:39] LABS: Absolute Lymphocyte Count 0.96 X10^3/uL (0.83-4.51); Absolute Neutrophil Count 5.5 X10^3/uL (2.0-7.7); Basophil# 0.04 X10^3/uL; Basophil% 0.5 % (0-1); Eosinophil# 0.16 X10^3/uL; Eosinophils% 2.1 % (0-5); Hematocrit 34.5 % (37-47); Hemoglobin 10.6 g/dL (12.0-15.0); Lymphocyte # 0.96 X10^3/ul (0.83-4.51); Lymphocyte % 12.7 % (19-41); Mean Corp Hgb Conc 30.7 g/dL (32-36); Mean Corpuscular Hgb 26.2 pg (27.0-32.0); Mean Corpuscular Volume 85.2 fL (81-99); Mean Platelet Vol. 8.6 fl (6.2-12.0); Monocyte# 0.84 X10^3/uL; Monocyte% 11.1 % (0-10); NRBC Flagged by Analyzer 0 % (0-5); Neutrophil # 5.51 X10^3/uL (2.7-7.7); Neutrophil % 73.2 % (47-70); Platelet Count 116 K/mm3 (150-450); RBC Distribution Width CV 18.3 % (11.6-14.6); RBC Distribution Width SD 56.9 fl (35.1-43.9); Red Blood Count 4.05 M/mm3 (4.2-5.4); White Blood Count 7.5 K/mm3 (4.4-11.0)
[2023-03-20 11:00] LABS: ALB/GLOB Ratio 0.5 RATIO (0.9-2.4); AST(SGOT) 18 U/L (15-37); Alanine Aminotransfer ALT/SGPT 16 U/L (13-56); Albumin, Serum 2.2 g/dL (3.2-5.0); Alkaline Phosphatase 73 U/L (45-117); Anion Gap 7 (5-15); BUN 20 mg/dL (7-18); BUN/Creat Ratio 3.4 RATIO (10-20); Calcium,Total 9.5 mg/dL (8.5-10.1); Chloride 96 mmol/L (98-107); Creatinine, Serum 5.82 mg/dL (0.55-1.02); EST Glomerular Filtration Rate 8 mL/min (>60); Est Glom Filt Rate - Afr Amer 9 mL/min (>60); Estimated Creatinine Clearance 9.17 ml/min; Globulin 4.2 g/dL (2.2-4.2); Glucose 82 mg/dL (74-106); Lipase 11 U/L (13-75); Potassium 4.4 mmol/L (3.5-5.1); Protein, Total 6.4 g/dL (6.4-8.2); Sodium Level 134 mmol/L (136-145); Troponin-I HS 94 pg/mL (3.0-54.0)
[2023-03-20 13:46] VITALS: BP 173/80; PULSE 73; RESP 18; O2SAT 94
[2023-03-20 14:30] LABS: Bacteria 0 SEEN /hpf (None Seen); Mucous, Urine 0 SEEN /hpf (<or=2+)
[2023-03-20 14:33] LABS: Color, Urine Brown (Yellow); Glucose, Dipstick Normal (Normal); Ketone-Dipstick 5 mg/dl (Negative); Leukocyte Esterase-Dipstick 500 /ul (Negative); Nitrite-Dipstick Negative (Negative); Occult Blood-Urine 250 /ul (Negative); Protein-Dipstick 100 mg/dl (Negative); Urine Clarity Sl. Cloudy (Clear); Urine Urobilinogen Normal (Normal)
[2023-03-20 14:43] LABS: Red Blood Cells-Urine 10-25 SEEN /hpf (0-5); Urine Bilirubin Dipstick 1 mg/dL (Negative); White Blood Cells 0-5 SEEN /hpf (0-5)
[2023-03-20 14:44] LABS: Squamous Epithelial Cells - UA 0-5 SEEN /hpf (5-10)
--- NOTE | 2023-03-20 16:19 | NURSING ---
CALLED [facility] ETA 90 MINUTES
[2023-03-20 16:55] VITALS: BP 153/99; PULSE 80; RESP 18; TEMP 35
== END 2023-03-20 17:42 | disposition skilled nursing facility (03) ==
PROVIDERS: Emergency Provider Emergency Medicine; PCP Internal Medicine; Visit Provider Emergency Medicine
DX: R53.1 Weakness (principal); I13.2 Hypertensive heart and chronic kidney disease with heart failure and with stage 5 chronic kidney disease, or end stage renal disease; Z99.2 Dependence on renal dialysis; I50.22 Chronic systolic (congestive) heart failure; E11.22 Type 2 diabetes mellitus with diabetic chronic kidney disease; N18.6 End stage renal disease; I25.10 Atherosclerotic heart disease of native coronary artery without angina pectoris; I25.2 Old myocardial infarction; F41.9 Anxiety disorder, unspecified; F32.A Depression, unspecified; G89.29 Other chronic pain; Z79.899 Other long term (current) drug therapy; Z86.73 Personal history of transient ischemic attack (TIA), and cerebral infarction without residual deficits; Z86.718 Personal history of other venous thrombosis and embolism; Z99.81 Dependence on supplemental oxygen; Z87.891 Personal history of nicotine dependence
CPT/HCPCS: 74176; 80053; 81001; 83690; 84484; 85025; 87428; 96374; 96375; 99285; P9612; A4216; J2405